=== PATIENT | female | born 1940 | race Caucasian/White ===

== ENCOUNTER 2021-10-08 10:36 | Day surgery (SDC) | payer MEDICARE, OTHER, SELFPAY ==
[2021-10-01 15:06] LABS: Hematocrit 41.9 % (37-47); Hemoglobin 13.6 g/dL (12.0-15.0); Mean Corp Hgb Conc 32.5 g/dL (32-36); Mean Corpuscular Hgb 31.6 pg (27.0-32.0); Mean Corpuscular Volume 97.4 fL (81-99); Mean Platelet Vol. 11.2 fl (6.2-12.0); Platelet Count 149 K/mm3 (150-450); RBC Distribution Width CV 14.4 % (11.6-14.6); RBC Distribution Width SD 51.7 fl (35.1-43.9); White Blood Count 5.9 K/mm3 (4.4-11.0)
[2021-10-01 15:31] LABS: Anion Gap 5 (5-15); BUN 13 mg/dL (7-18); Calcium,Total 9.2 mg/dL (8.5-10.1); Chloride 106 mmol/L (98-107); Creatinine, Serum 0.62 mg/dL (0.55-1.02); EST Glomerular Filtration Rate 99 mL/min (>60); Est Glom Filt Rate - Afr Amer 120 mL/min (>60); Glucose 87 mg/dL (74-106); Potassium 3.5 mmol/L (3.5-5.1); Sodium Level 141 mmol/L (136-145)
[2021-10-08] VITALS (7 sets, daily range): BP systolic 120–125; BP diastolic 62–72; PULSE 62–73; RESP 16–18; TEMP 36.2–36.6; O2SAT 93–97; BMI 34.5
[2021-10-08] MEDS: Lactated Ringers 1,000 ML 15 ML IV (11:25)
[2021-10-08] MEDS: Lubricating Jelly 60 GM Tube 30 GM (13:09)
--- NOTE | 2021-10-08 13:20 | PCM.HP.STD ---
HPI - General HPI Narrative GAIL MCPHERSON, is a 80 F who presents for evaluation of right ureteral stricture (chronic) from a [employer] injury repair a long time ago had chronic right hydro. PFSH Medical History Anemia Arthritis Back pain Cancer Cardiology follow-up encounter Cirrhosis Difficulty swallowing Gastric reflux High cholesterol History of atrial fibrillation History of diverticulitis History of echocardiogram History of edema History of hiatal hernia History of IBS History of stress test History of ulceration Hx of small bowel obstruction Non-smoker Home Medications Dexilant 60 mg PO DAILY 10/01/21 [History Last Taken 10/08/21] Immucore 1 tab PO/SL DAILY 10/01/21 [History Last Taken Unknown] Pradaxa 150 mg PO BID 10/01/21 [History Last Taken Unknown] Tart Foley 1 cap PO DAILY 10/01/21 [History Last Taken Unknown] aspirin 81 mg PO DAILY 10/01/21 [History Last Taken Unknown] atorvastatin 10 mg PO QHS 10/01/21 [History Last Taken Unknown] cholecalciferol (vitamin D3) [Vitamin D3] 50 mcg PO DAILY 10/01/21 [History Last Taken Unknown] diltiazem HCl 240 mg PO DAILY 10/01/21 [History Last Taken 10/08/21] furosemide 40 mg PO BID PRN 10/01/21 [History Last Taken Unknown] lubiprostone [Amitiza] 8 mcg PO BID 10/01/21 [History Last Taken Unknown] milk thistle 300 mg PO DAILY 10/01/21 [History Last Taken Unknown] multivitamin 1 cap PO DAILY 10/01/21 [History Last Taken Unknown] omega-3 fatty acids-vitamin E 1 cap PO DAILY 10/01/21 [History Last Taken Unknown] polyethylene glycol 3350 [Miralax] 17 g PO DAILY 10/01/21 [History Last Taken Unknown] tramadol 50 mg PO PRN PRN 10/01/21 [History Last Taken Unknown] ciprofloxacin HCl [Cipro] 500 mg PO BID #10 tab 10/08/21 [Rx Last Taken Unknown] Allergy/AdvReac Type Severity Reaction Status Date / Time NSAIDS (Non-Steroidal AdvReac Nausea Verified 10/08/21 11:14 Anti-Inflamma MUSCLE RELAXANTS AdvReac PT UNSURE Uncoded 10/08/21 11:14 OF REACTION SURGICAL TAPE AdvReac Rash Uncoded 10/08/21 11:14 Surgical History (Updated 10/01/21 @ 14:29 by Ameena Reza) History of bilateral knee arthroplasty History of esophagogastroduodenoscopy (EGD) History of laparoscopic cholecystectomy Hx of appendectomy Hx of bilateral cataract extraction Hx of colonoscopy Hx of foot surgery Hx of hysterectomy, total Hx of laparoscopy Hx of tonsillectomy Hx of total shoulder replacement Social History Smoking Status: Never smoker Vital Signs Vital Signs Vital Signs: 10/08/21 11:07 Temperature 97.8 F Temperature Source Temporal Pulse Rate 66 Respiratory Rate 18 Respiratory Pattern Normal Blood Pressure 125/62 H Blood Pressure Mean 83 Blood Pressure Source Monitor Blood Pressure Position Semi-Fowlers Blood Pressure Location Left Arm Pulse Ox 97 Oxygen Delivery Method Room Air Weight Weight: 75 kg Body Mass Index (BMI) 34.5 Results Lab / Micro Data Result Diagrams: 10/01/21 13:43 10/01/21 13:43
--- NOTE | 2021-10-08 13:21 | PCM.DC ---
Discharge Instructions Diet Discharge Diet: No restrictions Activity Discharge Activity: Return to Normal Activity and May Not Drive (while taking narcotic pain medications.) Dressing / Incision Call your doctor if you observe: Fever of 101 or Higher Follow Up Care Please Follow Up With: Lauro Philip MD When: Call [phone] for an appointment Test Results: Test results from this visit will be discussed in further detail at your follow-up appointment, if applicable. Discharge Plan Admission Primary Reason for Your Visit: right hydronephrosis Attending Provider: Lauro Philip Primary Care Provider: Mil Woodruff Discharge Orders/Prescriptions Prescriptions: New ciprofloxacin HCl [Cipro] 500 mg tablet 500 mg PO BID Qty: 10 RF: 0 Continued furosemide 40 mg Tablet 40 mg PO BID PRN (Reason: Edema) RF: 0 polyethylene glycol 3350 [Miralax] 17 gram Powder In Packet 17 g PO DAILY RF: 0 atorvastatin 10 mg Tablet 10 mg PO QHS RF: 0 diltiazem HCl 240 mg Capsule,Extended Release 24hr 240 mg PO DAILY RF: 0 aspirin 81 mg Tablet,Delayed Release (Dr/Ec) 81 mg PO DAILY RF: 0 milk thistle 150 mg Capsule 300 mg PO DAILY RF: 0 multivitamin Capsule 1 cap PO DAILY RF: 0 omega-3 fatty acids-vitamin E 1,000 mg Capsule 1 cap PO DAILY RF: 0 lubiprostone [Amitiza] 8 mcg Capsule 8 mcg PO BID RF: 0 cholecalciferol (vitamin D3) [Vitamin D3] 50 mcg (2,000 unit) Capsule 50 mcg PO DAILY RF: 0 Tart Foley [id number] mg Capsule 1 cap PO DAILY RF: 0 Dexilant 60 mg Capsule,Biphase Delayed Releas 60 mg PO DAILY RF: 0 tramadol 50 mg Tablet,Disintegrating 50 mg PO PRN PRN (Reason: Pain) RF: 0 Pradaxa 150 mg Capsule 150 mg PO BID RF: 0 Immucore 1 tab PO/SL DAILY RF: 0 Referrals / Follow Up: Lauro Philip MD [STAFF PHYSICIAN] - Mil Woodruff MD [Primary Care Provider] - Disposition Disposition (needs filled in before D/C Order can be placed): Home, Self Care
--- NOTE | 2021-10-08 13:21 | PCM.OPRPT ---
Report of Operation Date of Procedure: 10/08/21 Pre-Operative Diagnosis: Right ureteral stricture Post-Operative Diagnosis: Same Surgery/Procedure Performed:: Right retrograde pyelogram Description of Surgical Findings:: Indication this is a 80-year-old female who had a injury to her ureter that was repaired by an open fashion about 20 years ago she was found to have right hydronephrosis incidentally on CAT scan we suspect the cause for this is from the stricture so today working to do a retrograde pyelogram to evaluate the stricture and see if anything is necessary her creatinine is normal her pain in the back is probably mostly from cervical disease in her back. Patient was taken back to the operating room at the smooth induction of general anesthesia she was placed in dorsolithotomy position. The urethra vaginal area were prepped and draped in usual sterile fashion she did have an atrophic vaginal area short length the urethra. No significant prolapse. I went into the bladder I did not see any tumors or stones within the bladder she did have a lot of cystitis cystica along the floor of the bladder I then identified the right and left ureteral orifice and then cannulated the right ureteral orifice with a Pollick catheter, 5 Serbian open-ended ureteral catheter performed a retrograde pyelogram and see contrast going up deviated medially some and then he could see his scar tissue in contrast going through that scar tissue and then up to the dilated right kidney I was able to get a wire passes quite easily I was able to get the Pollack catheter quite easily wide through the area without any problems. I then pulled out the catheter and then he could see contrast that was draining it was draining from that right kidney but it was draining more slowly she had a chronic right hydronephrosis but I think just from a stricture in the distal ureter at this point given her age normal renal function and the fact that is asymptomatic organ to continue with observation decided not to do any intervention on the stricture we remove the Pollack catheter is draining well and she was taken back to PACU in Surgeon: anaid Type of Anesthesia: General Drains: none Admit VTE Documentation VTE Present on Admission: No VTE Mechan Device Prophylaxis: SCD's VTE Pharm Prophylaxis ordered?: No
== END 2021-10-08 15:08 | disposition home or self-care (01) ==
LOC: SDC 10:37 → AC 10:38
PROVIDERS: PCP Family Medicine; Referring Provider Urology; Visit Provider Urology
PROC: (CPT 52332; principal; 2021-10-08 12:45)
DX: N13.1 Hydronephrosis with ureteral stricture, not elsewhere classified (principal); E78.00 Pure hypercholesterolemia, unspecified; I48.91 Unspecified atrial fibrillation; K21.9 Gastro-esophageal reflux disease without esophagitis; K58.9 Irritable bowel syndrome, unspecified; K74.60 Unspecified cirrhosis of liver; M19.90 Unspecified osteoarthritis, unspecified site; Z87.19 Personal history of other diseases of the digestive system; Z79.01 Long term (current) use of anticoagulants; Z79.82 Long term (current) use of aspirin; Z79.899 Other long term (current) drug therapy
CPT/HCPCS: 52005; 36415; 76000; 80048; 85027; J7120; C1769; J2405

== ENCOUNTER 2025-04-29 15:00 | Outpatient (RCR) | payer MEDICARE, OTHER, SELFPAY ==
[2025-04-22 15:01] VITALS: BP 135/87; PULSE 71; RESP 16; TEMP 36.6; BMI 27.8
--- NOTE | 2025-04-22 16:02 | WC ---
PHOTO 04/22/25 EVA
--- NOTE | 2025-04-22 16:02 | WC ---
PHOTO 04/22/25 EVA
--- NOTE | 2025-04-23 07:29 | PCM.WC.HP ---
History of Present Illness Date of Service: 04/22/25 History of Wound: The patient is an 84-year-old female presenting with a sacral pressure ulcer that has been gradually worsening over a period of six months. The ulcer developed initially as a sensitive spot that evolved into a cavity without significant visual symptoms of hemorrhage or discharge. The management thus far has involved Medihoney applications and packing, though decreased cavity size now makes packing challenging. Additionally, rotations during sleep due to discomfort underscore its sensitivity. She possesses a medical history significant for atrial fibrillation, managed currently with Apixaban, with implications for future surgical interventions due to bleeding risks. Historical records indicate maintained integrity of sacral spinal hardware, mitigating concerns regarding hardware-related complications. Dietary habits and past management strategies reflect an understanding of nutritional needs consistent with ongoing medical recommendations. She believes it started as a small abscess that turned into a wound. She puts significant pressure on it daily while leaning back in her recliner at home. ROS: - Skin: Reports sacral pressure ulcer; Denies active infection symptoms such as fever or purulent discharge. - Cardiovascular: Reports history of atrial fibrillation; Denies current chest pain or dyspnea. - Gastrointestinal: Denies recent significant unintentional weight change; Past diagnosis of nonalcoholic fatty liver disease. - Musculoskeletal: Denies new or progressive back pain; History of prior surgeries for sacral fractures. - General: Denies smoking history. Attestation: Documentation on this patient encounter was supported using ambient scribe technology/ voice AI technology. The patient consented to recording for the purpose of documenting the encounter. Provider reviewed content of the generated note prior to signature. [facility] Medical History Cancer Arthritis Anemia Cirrhosis High cholesterol Back pain Difficulty swallowing History of hiatal hernia History of ulceration History of IBS History of diverticulitis Gastric reflux Non-smoker History of edema History of echocardiogram History of stress test Cardiology follow-up encounter History of atrial fibrillation Hx of small bowel obstruction Home Medications ?Medication ?Instructions ?Recorded ?Last Taken ?Type Immucore 1 tab PO/SL DAILY 10/01/21 Unknown History atorvastatin 10 mg tablet 10 mg PO QHS 10/01/21 Unknown History cholecalciferol (vitamin D3) 50 50 mcg PO DAILY 10/01/21 Unknown History mcg (2,000 unit) capsule (Vitamin D3) dabigatran etexilate 150 mg 150 mg PO BID 10/01/21 Unknown History capsule (Pradaxa) dexlansoprazole 60 mg 60 mg PO DAILY 10/01/21 10/08/21 History capsule,biphase delayed release (Dexilant) diltiazem HCl 240 mg 240 mg PO DAILY 10/01/21 10/08/21 History capsule,extended release 24 hr furosemide 40 mg tablet 40 mg PO BID PRN Edema 10/01/21 Unknown History lubiprostone 8 mcg capsule 8 mcg PO BID 10/01/21 Unknown History (Amitiza) milk thistle 150 mg capsule 300 mg PO DAILY 10/01/21 Unknown History multivitamin 1 cap PO DAILY 10/01/21 Unknown History omega-3 fatty acids-vitamin E 1 cap PO DAILY 10/01/21 Unknown History 1,000 mg capsule polyethylene glycol 3350 17 gram 17 g PO DAILY 10/01/21 Unknown History oral powder packet (Miralax) tramadol 50 mg disintegrating 50 mg PO PRN PRN Pain 10/01/21 Unknown History tablet apixaban 5 mg tablet (Eliquis) 5 mg PO BID 04/22/25 Unknown History apixaban 5 mg tablet (Eliquis) 5 mg PO BID 04/22/25 Unknown History levothyroxine 100 mcg tablet 100 mcg PO DAILY 04/22/25 Unknown History naloxone 4 mg/actuation nasal spray intranasal 04/22/25 Unknown History tramadol 50 mg tablet 50 mg PO Q6H PRN PRN pain 04/22/25 Unknown History Allergy/AdvReac Type Severity Reaction Status Date / Time adhesive tape AdvReac Rash Verified 04/22/25 15:15 NSAIDS (Non-Steroidal AdvReac Nausea Verified 04/22/25 15:15 Anti-Inflamma Surgical History History of esophagogastroduodenoscopy (EGD) Hx of colonoscopy Hx of total shoulder replacement History of bilateral knee arthroplasty Hx of foot surgery Hx of bilateral cataract extraction History of laparoscopic cholecystectomy Hx of laparoscopy Hx of hysterectomy, total Hx of appendectomy Hx of tonsillectomy Social History Smoking Status: Never smoker Vital Signs Vital Signs Vital Signs: 04/22/25 15:01 Temperature 97.8 F Temperature Source Temporal Pulse Rate 71 Respiratory Rate 16 Blood Pressure 135/87 H Blood Pressure Mean 103 Blood Pressure Source Monitor Weight Weight: 133 lb 3.437 oz Body Mass Index (BMI) 27.8 Physical Exam Narrative - Skin- Sacral wound measuring approximately 1.5 cm by 2 cm with an estimated depth of 1.5 cm; Presence of exposed fascia but no exposed bone or hardware evident. Debris noted and removed during examination. No surrounding skin lesions or induration Debridement Note Debridement Note Wound debrided: Sacral wound Laterality: Not Applicable Wound Grade/Stage: 3 Type of Debridement: Excisional debridement Anesthesia Used: 4% Lidocaine Solution Depth: to muscle Percentage of wound debrided: 100 Instrument Used: 7mm curette, Forceps and - (scissors for sharp excision) Tissue Removed: Necrotic fascia and fat at the base of the full-thickness wound Severity: Necrosis of Muscle (Necrosis to the fascial layer ) Amount of bleeding with debridement: Moderate Bleeding Controlled with: Compression and gauze Patient tolerated procedure: Patient tolerated procedure well Post-Debridement Measurements and Additional Note: Post-Debridement Measurements/Treatment WC - Nurse 1 - General Ulcer Assessment Start: 04/22/25 14:59 Freq: Status: Active Protocol: KERI Activity Type Activity Date Activity User E-sign Co-sign Detail Recorded Client Recorded Date Recorded By Document 04/22/25 15:01 DL [id number] 04/22/25 15:13 DL 04/22/25 15:01 - Today's Visit Information Type of service Follow-up Visit (Physician/[employer]PER[employer] ) Arrival Mode Ambulatory Transfer Assistance None Patient Identification Verified (Name & Yes ) Patient Requires Transmission-Based No Precautions Height and Weight Height 4 ft 10 in Weight 133 lb 3.437 oz Weight in Pounds 133.2 lbs Body Mass Index (BMI) 27.8 BMI Classification Overweight Vital Signs Temperature (97.8 F-99.1 F) 97.8 F Temperature Source Temporal Pulse Rate (60-100) 71 Pulse Location Monitor Respiratory Rate (12-18) 16 Respiratory rate source Observation Blood Pressure (90/60-120/80) 135/87 H Blood Pressure Mean 103 Source Monitor Pain Scale: 0-10 Numeric Is Patient Pain Free? Yes - Nurse 1 - General Ulcer Measurement Start: 04/22/25 14:59 Freq: Status: Active Protocol: Activity Type Activity Date Activity User E-sign Co-sign Detail Recorded Client Recorded Date Recorded By Document 04/22/25 15:01 DL [id number] 04/22/25 15:13 DL 04/22/25 15:01 Wound Center Nurse 1 #1 Coccyx -Current Size (cm) - Length 2 -Current Size (cm) - Width 1.5 -Current Size (cm) - Depth 0.9 -Total Square Cm 3.0 -Photo Taken Yes -Classification - Thickness Full Thickness without Exposed Support Structure -Exudate Amt Medium -Exudate Type Serosanguineous -Wound Margin Distinct, Outline Attached -Granulation Amt Medium (34-66%) -Granulation Quality Red -Necrosis Amt Medium (34-66%) -Necrotic Tissue Type Adherent Slough -Structure Exposed N/A -Texture (Danelle-wound Skin Appearance) Scarring -Moisture (Danelle-wound Skin Appearance) No Abnormality -Color (Danelle-wound Skin Appearance) No Abnormality -Temperature (Danelle-wound Skin No Abnormality Appearance) (Pt Warm) -Tenderness on Palpation (Danelle-wound No Skin Appearance) -Ulcer Cleansing Soap and Water -Foul Odor after Cleansing No -Anesthetic Used 5% Lidocaine Gel WC - Nurse 2 - General Ulcer CM Notes Start: 04/22/25 14:59 Freq: Status: Active Protocol: Activity Type Activity Date Activity User E-sign Co-sign Detail Recorded Client Recorded Date Recorded By Document 04/22/25 15:39 [id number] [id number] 04/22/25 15:49 04/22/25 15:39 Wound Center Nurse 2 -Time 15:44 -Correct Patient Yes -Correct Side, Site, Position Yes -Correct Procedure Yes -Procedure Performed Yes -Type of Procedure Debridement -Clinical Debridement Muscle / Fascia -Tissue Removed Fascia -Post Debridement (cm) - Length 1.5 -Post Debridement (cm) - Width 2 -Post Debridement (cm) - Depth 1.5 -Total Square (Post) (cm) 3.0 -Area of Debridement (cm) - Length 1.5 -Area of Debridement (cm) - Width 2 -Total Square (Area) (cm) 3.0 -Tunneling No -Undermining/Tunneling No -Circular Undermining No -Wound/Ulcer Outcome Not Healed -Ulcer Cleansing Rinsed/ Irrigated with Saline -Foul Odor after Cleansing No -Bioengineered Tissue No -Bleeding Controlled with Pressure -Treatment Response Procedure Tolerated Well -Offloading No -Debridement - Muscle / Fascia, 1st Yes 20sq cm Pain Scale: 0-10 Numeric Is Patient Pain Free? Yes - Nurse 3 - General Ulcer D/C NN Start: 04/22/25 14:59 Freq: Status: Active Protocol: Activity Type Activity Date Activity User E-sign Co-sign Detail Recorded Client Recorded Date Recorded By Document 04/22/25 16:14 DL [id number] 04/22/25 16:15 DL 04/22/25 16:14 Wound Care Center Nurse 3 #1 Coccyx -Ulcer Cleansing Rinsed/ Irrigated with Saline -Foul Odor after Cleansing No -Primary Dressing Applied Aquacel AG 4x4, Silicone Border Foam 6x6 -Aquacel AG 4x4 1 -Silicone Border Foam 6x6 1 Treatment Response Procedure Tolerated Well Pain Scale: 0-10 Numeric Is Patient Pain Free? Yes WC - Visit Discharge Discharge Condition Stable Ambulatory Status Ambulatory,Cane Transportation Private Auto Charges/Coding Multi Select Codes Visit Charges Office Visit/Consults: 67492 OV L4 New 45 min Integumentary Integumentary CPT Codes: 42168 Vivian musc/fascia 20 sq cm/< Assessment/Plan Assessment/Plan (1) Sacral decubitus ulcer, stage III: CODE(S): L89.153 - Pressure ulcer of sacral region, stage 3 (2) Atrial fibrillation: CODE(S): I48.91 - Unspecified atrial fibrillation (3) THOMAS (nonalcoholic steatohepatitis): CODE(S): K75.81 - Nonalcoholic steatohepatitis (THOMAS) PLAN: Plan Assessment and Plan 84-year-old female with history of atrial fibrillation presenting with a sacral pressure ulcer. The wound complexity and chronicity require diligent management, including consistent dressing changes and alternative offloading methods to minimize pressure and expedite healing. Current interventions focus on timely wound care and nutrient optimization, with surgical intervention as a feasible option contingent on risk considerations related to anticoagulation. 1. Sacral Wound The current wound care strategy will persist entailing consistent dressing changes with Aquacel AG. Wound vacuum-assisted closure therapy remains under consideration pending reassessment of current methods' effectiveness. Surgical procedures will remain a possible intervention should conservative management falter. I offered her surgery today for excision and closure of the wound. She is not interested in surgery at this time given her comorbidities and the discussion of risk benefits and alternatives. She would like to continue to do wound care. Most importantly we discussed pressure offloading. She does not want a pressure offloading bed (declined offer today) but she will work on not putting any pressure on the ulcer while sitting in a chair /reclining . She has limited resources at home to help her with wound care and therefore we are doing every other day Aquacel Ag dressings until the wound VAC is available (home health can change the wound VAC 3 times per week). Patient happy with the plan. 2. Nonalcoholic Fatty Liver Disease Dietary recommendations emphasize maintaining a liver-friendly diet with regular hepatic examinations to review enzyme levels. 3. Atrial Fibrillation Continue routine anticoagulation with Apixaban while exercising caution concerning its influence in any surgical contexts, ensuring ongoing evaluation of hematological parameters. - Monitor wound site daily and maintain cleanliness. - Follow-up with the wound care team as scheduled; visit the hospital if unexpected changes occur. - Lay on your side to avoid pressure on the sacral area. - Include protein-rich foods like chicken and eggs in your diet. - Rest and remain hydrated.
[2025-04-29 14:17] VITALS: BP 133/77; PULSE 45; RESP 14; TEMP 36.4; BMI 27.8
--- NOTE | 2025-04-30 11:55 | PN.PCM_ITS ---
History of Present Illness Date of Service: 04/29/25 History of Wound: The patient is an 84-year-old female presenting with a sacral pressure ulcer that has been gradually worsening over a period of six months. The ulcer developed initially as a sensitive spot that evolved into a cavity without significant visual symptoms of hemorrhage or discharge. The management thus far has involved Medihoney applications and packing, though decreased cavity size now makes packing challenging. Additionally, rotations during sleep due to discomfort underscore its sensitivity. She possesses a medical history significant for atrial fibrillation, managed currently with Apixaban, with implications for future surgical interventions due to bleeding risks. Historical records indicate maintained integrity of sacral spinal hardware, mitigating concerns regarding hardware-related complications. Dietary habits and past management strategies reflect an understanding of nutritional needs consistent with ongoing medical recommendations. She believes it started as a small abscess that turned into a wound. She puts significant pressure on it daily while leaning back in her recliner at home. ROS: - Skin: Reports sacral pressure ulcer; Denies active infection symptoms such as fever or purulent discharge. - Cardiovascular: Reports history of atrial fibrillation; Denies current chest pain or dyspnea. - Gastrointestinal: Denies recent significant unintentional weight change; Past diagnosis of nonalcoholic fatty liver disease. - Musculoskeletal: Denies new or progressive back pain; History of prior surgeries for sacral fractures. - General: Denies smoking history. Attestation: Documentation on this patient encounter was supported using ambient MINDBODYibe technology/ voice AI technology. The patient consented to recording for the purpose of documenting the encounter. Provider reviewed content of the generated note prior to signature. Subjective Subjective CURRENT ENCOUNTER, 29 April 2025: The patient is an 84-year-old female presenting with a pressure ulcer. The ulcer has been persistent, and the patient has been managing it by offloading pressure by sleeping on her right side. The wound has not yet healed completely, and the patient has not received the wound vacuum therapy device yet. The wound measures 1.5 x 1.5 cm and is 1 cm deep, consistent with previous measurements. The patient has been advised to use a wound vacuum to promote gran ulation and closure of the ulcer. The patient is considering surgical intervention if the wound vacuum therapy does not yield results in a few weeks. The patient is on blood thinners, which would require hospitalization for a week if surgical intervention is pursued. Attestation: Documentation on this patient encounter was supported using ambient scribe technology/ voice AI technology. The patient consented to recording for the purpose of documenting the encounter. Provider reviewed content of the generated note prior to signature. Objective Data Objective Data Vital Signs: Vital Signs Temp Pulse Resp BP 97.6 F L 45 L 14 133/77 H 04/29/25 14:17 04/29/25 14:17 04/29/25 14:17 04/29/25 14:17 Weight: 133 lb 3.437 oz Body Mass Index (BMI) 27.8 Charges/Coding Procedures Integumentary [id number]: [id number] Vivian subq tissue 20 sq cm/< Physical Exam Narrative - Integumentary: Wound measuring 1.5 x 1.5 cm, 1 cm deep, consistent with previous measurements. Debridement Note Debridement Note Wound debrided: Sacral wound Laterality: Not Applicable Wound Grade/Stage: Stage III Type of Debridement: Excisional debridement Anesthesia Used: 4% Lidocaine Solution Depth: in the subcutaneous layer Percentage of wound debrided: 100 Instrument Used: 7mm curette Tissue Removed: Fibrinous exudate and fat necrosis Severity: Fat Layer Exposed Amount of bleeding with debridement: Mild Bleeding Controlled with: Compression and gauze Patient tolerated procedure: Patient tolerated procedure well Post-Debridement Measurements and Additional Note: Post-Debridement Measurements/Treatment WC - Nurse 1 - General Ulcer Assessment Start: 04/22/25 14:59 Freq: Status: Active Protocol: [email or web address] Activity Type Activity Date Activity User E-sign Co-sign Detail Recorded Client Recorded Date Recorded By Document 04/22/25 15:01 DL [id number] 04/22/25 15:13 DL Document 04/29/25 14:17 ML [id number] 04/29/25 14:23 ML 04/22/25 04/29/25 15:01 14:17 - Today's Visit Information Type of service Follow-up Visit Follow-up Visit (Physician/ECCLESIASTICAL WORKER (Physician/ECCLESIASTICAL WORKER ) ) Arrival Mode Ambulatory Ambulatory Transfer Assistance None None Patient Identification Verified (Name & Yes Yes ) Patient Requires Transmission-Based No No Precautions Height and Weight Height 4 ft 10 in Weight 133 lb 3.437 oz Weight in Pounds 133.2 lbs Body Mass Index (BMI) 27.8 27.8 BMI Classification Overweight Overweight Vital Signs Temperature (97.8 F-99.1 F) 97.8 F 97.6 F L Temperature Source Temporal Temporal Pulse Rate (60-100) 71 45 L Pulse Location Monitor Monitor Respiratory Rate (12-18) 16 14 Respiratory rate source Observation Monitor Blood Pressure (90/60-120/80) 135/87 H 133/77 H Blood Pressure Mean (mm Hg) 103 95 Source Monitor Monitor Position Sitting Blood Pressure Location Left Arm History Since Last Visit- (Skip if this is Patient's initial visit) Have you changed medications since your No last visit? Any new allergies or adverse reactions No Had a fall/change in ADL's that may No increase risk of falls Have you been in the hospital since your No last visit? Has dressing in place as prescribed No Has compression in place as prescribed No Has offloadiing in place as prescribed Yes Experienced any changes in pain level or No management Pain Scale: 0-10 Numeric Is Patient Pain Free? Yes Yes WC - Nurse 1 - General Ulcer Measurement Start: 04/22/25 14:59 Freq: Status: Active Protocol: Activity Type Activity Date Activity User E-sign Co-sign Detail Recorded Client Recorded Date Recorded By Document 04/22/25 15:01 DL [id number] 04/22/25 15:13 DL Document 04/29/25 14:17 ML [id number] 04/29/25 14:23 ML 04/22/25 04/29/25 15:01 14:17 Wound Center Nurse 1 #1 Coccyx -Current Size (cm) - Length 2 1.5 -Current Size (cm) - Width 1.5 1 -Current Size (cm) - Depth 0.9 0.6 -Total Square Cm 3.0 1.5 -Photo Taken Yes -Classification - Thickness Full Thickness without Exposed Support Structure -Exudate Amt Medium Medium -Exudate Type Serosanguineous Serosanguineous -Wound Margin Distinct, Outline Attached -Granulation Amt Medium (34-66%) Small (1-33%) -Granulation Quality Red -Slough/Fibrin Yes -Necrosis Amt Medium (34-66%) Medium (34-66%) -Necrotic Tissue Type Adherent Slough Adherent Slough -Structure Exposed N/A -Texture (Danelle-wound Skin Appearance) Scarring Assessed -Moisture (Danelle-wound Skin Appearance) No Abnormality Maceration -Color (Danelle-wound Skin Appearance) No Abnormality -Temperature (Danelle-wound Skin No Abnormality No Abnormality Appearance) (Pt Warm) (Pt Warm) -Tenderness on Palpation (Danelle-wound No No Skin Appearance) -Ulcer Cleansing Soap and Water Rinsed/ Irrigated with Saline -Foul Odor after Cleansing No No -Anesthetic Used 5% Lidocaine 5% Lidocaine Gel Gel WC - Nurse 2 - General Ulcer CM Notes Start: 04/22/25 14:59 Freq: Status: Active Protocol: Activity Type Activity Date Activity User E-sign Co-sign Detail Recorded Client Recorded Date Recorded By Document 04/22/25 15:39 JF [id number] 04/22/25 15:49 JF Document 04/29/25 14:42 DS [id number] 04/29/25 14:43 DS 04/22/25 04/29/25 15:39 14:42 Wound Center Nurse 2 #1 Coccyx -Time 15:44 14:42 -Correct Patient Yes Yes -Correct Side, Site, Position Yes Yes -Correct Procedure Yes Yes -Procedure Performed Yes Yes -Type of Procedure Debridement Debridement -Clinical Debridement Muscle / Fascia Subcutaneous -Tissue Removed Fascia Subcutaneous -Post Debridement (cm) - Length 1.5 1.5 -Post Debridement (cm) - Width 2 1.5 -Post Debridement (cm) - Depth 1.5 1.0 -Total Square (Post) (cm) 3.0 2.25 -Area of Debridement (cm) - Length 1.5 1.5 -Area of Debridement (cm) - Width 2 1.5 -Total Square (Area) (cm) 3.0 2.25 -Tunneling No No -Undermining/Tunneling No No -Circular Undermining No No -Wound/Ulcer Outcome Not Healed Not Healed -Ulcer Cleansing Rinsed/ Irrigated with Saline -Foul Odor after Cleansing No No -Bioengineered Tissue No No -Bleeding Controlled with Pressure Pressure -Treatment Response Procedure Procedure Tolerated Well Tolerated Well -Offloading No -Debridement - Subq, 1st 20sq cm Yes -Debridement - Muscle / Fascia, 1st Yes 20sq cm Pain Scale: 0-10 Numeric Is Patient Pain Free? Yes Yes - Nurse 3 - General Ulcer D/C NN Start: 04/22/25 14:59 Freq: Status: Active Protocol: Activity Type Activity Date Activity User E-sign Co-sign Detail Recorded Client Recorded Date Recorded By Document 04/22/25 16:14 DL [id number] 04/22/25 16:15 DL Document 04/29/25 15:04 KW [id number] 04/29/25 15:05 04/22/25 04/29/25 16:14 15:04 Wound Care Center Nurse 3 #1 Coccyx -Ulcer Cleansing Rinsed/ Irrigated with Saline -Foul Odor after Cleansing No -Primary Dressing Applied Aquacel AG 4x4, Aquacel AG 4x4, Silicone Border Silicone Border Foam 6x6 Foam 4x4 -Aquacel AG 4x4 1 1 -Silicone Border Foam 4x4 1 -Silicone Border Foam 6x6 1 Treatment Response Procedure Tolerated Well Pain Scale: 0-10 Numeric Is Patient Pain Free? Yes Yes WC - Visit Discharge Discharge Condition Stable Stable Ambulatory Status Ambulatory,Cane Ambulatory,Cane Transportation Private Auto Private Auto Medication Reconcilliation completed & No provided to patient/care provider Clinical Summary of Care Provided Yes Assessment/Plan Assessment/Plan (1) Sacral decubitus ulcer, stage III: CODE(S): L89.153 - Pressure ulcer of sacral region, stage 3 (2) Atrial fibrillation: CODE(S): I48.91 - Unspecified atrial fibrillation (3) THOMAS (nonalcoholic steatohepatitis): CODE(S): K75.81 - Nonalcoholic steatohepatitis (THOMAS) PLAN: Plan Assessment and Plan 84-year-old female with history of atrial fibrillation presenting with a sacral pressure ulcer. The wound complexity and chronicity require diligent management, including consistent dressing changes and alternative offloading methods to minimize pressure and expedite healing. Current interventions focus on timely wound care and nutrient optimization, with surgical intervention as a feasible option contingent on risk considerations related to anticoagulation. 1. Sacral Wound The current wound care strategy will persist entailing consistent dressing changes with Aquacel AG. Wound vacuum-assisted closure therapy remains under consideration pending reassessment of current methods' effectiveness. Surgical procedures will remain a possible intervention should conservative management falter. I again today offered her surgery today for excision and closure of the wound. She is not interested in surgery at this time given her comorbidities and the discussion of risk benefits and alternatives. She would like to continue to do wound care. Most importantly we discussed pressure offloading. She does not want a pressure offloading bed (declined offer today) but she will work on not putting any pressure on the ulcer while sitting in a chair /reclining . She has limited resources at home to help her with wound care and therefore we are doing every other day Aquacel Ag dressings until the wound VAC is available (home health can change the wound VAC 3 times per week). Patient happy with the plan. 2. Nonalcoholic Fatty Liver Disease Dietary recommendations emphasize maintaining a liver-friendly diet with regular hepatic examinations to review enzyme levels. 3. Atrial Fibrillation Continue routine anticoagulation with Apixaban while exercising caution concerning its influence in any surgical contexts, ensuring ongoing evaluation of hematological parameters. - Monitor wound site daily and maintain cleanliness. - Follow-up with the wound care team as scheduled; visit the hospital if unexpected changes occur. - Lay on your side to avoid pressure on the sacral area. - Include protein-rich foods like chicken and eggs in your diet. - Rest and remain hydrated. Plan from 29 April 2025: Assessment and Plan An 84-year-old female with a history of pressure ulcer presents for evaluation and management. The ulcer has been persistent, and the patient has been managing it by offloading pressure by sleeping on her right side. The wound has not yet healed completely, and the patient has not received the wound vacuum therapy device yet. The wound measures 1.5 x 1.5 cm and is 1 cm deep, consistent with previous measurements. The patient has been advised to use a wound vacuum to promote granulation and closure of the ulcer. 1. Pressure Ulcer The plan is to initiate wound vacuum therapy to promote granulation and closure of the ulcer. If the wound vacuum therapy does not show improvement in a few weeks, surgical intervention will be considered by the patient. - Continue to offload pressure by sleeping on your right side. - Await the arrival of the wound vacuum device and begin using it as instructed. - Follow up in three weeks to assess the progress of the wound healing.
--- NOTE | 2025-04-30 11:55 | PN.PCM_ITS ---
History of Present Illness Date of Service: 04/29/25 History of Wound: The patient is an 84-year-old female presenting with a sacral pressure ulcer that has been gradually worsening over a period of six months. The ulcer developed initially as a sensitive spot that evolved into a cavity without significant visual symptoms of hemorrhage or discharge. The management thus far has involved Medihoney applications and packing, though decreased cavity size now makes packing challenging. Additionally, rotations during sleep due to discomfort underscore its sensitivity. She possesses a medical history significant for atrial fibrillation, managed currently with Apixaban, with implications for future surgical interventions due to bleeding risks. Historical records indicate maintained integrity of sacral spinal hardware, mitigating concerns regarding hardware-related complications. Dietary habits and past management strategies reflect an understanding of nutritional needs consistent with ongoing medical recommendations. She believes it started as a small abscess that turned into a wound. She puts significant pressure on it daily while leaning back in her recliner at home. ROS: - Skin: Reports sacral pressure ulcer; Denies active infection symptoms such as fever or purulent discharge. - Cardiovascular: Reports history of atrial fibrillation; Denies current chest pain or dyspnea. - Gastrointestinal: Denies recent significant unintentional weight change; Past diagnosis of nonalcoholic fatty liver disease. - Musculoskeletal: Denies new or progressive back pain; History of prior surgeries for sacral fractures. - General: Denies smoking history. Attestation: Documentation on this patient encounter was supported using ambient Mapiliary[employer] technology/ voice AI technology. The patient consented to recording for the purpose of documenting the encounter. Provider reviewed content of the generated note prior to signature. Subjective Subjective CURRENT ENCOUNTER, 29 April 2025: The patient is an 84-year-old female presenting with a pressure ulcer. The ulcer has been persistent, and the patient has been managing it by offloading pressure by sleeping on her right side. The wound has not yet healed completely, and the patient has not received the wound vacuum therapy device yet. The wound measures 1.5 x 1.5 cm and is 1 cm deep, consistent with previous measurements. The patient has been advised to use a wound vacuum to promote gran ulation and closure of the ulcer. The patient is considering surgical intervention if the wound vacuum therapy does not yield results in a few weeks. The patient is on blood thinners, which would require hospitalization for a week if surgical intervention is pursued. Attestation: Documentation on this patient encounter was supported using ambient scribe technology/ voice AI technology. The patient consented to recording for the purpose of documenting the encounter. Provider reviewed content of the generated note prior to signature. Objective Data Objective Data Vital Signs: Vital Signs Temp Pulse Resp BP 97.6 F L 45 L 14 133/77 H 04/29/25 14:17 04/29/25 14:17 04/29/25 14:17 04/29/25 14:17 Weight: 133 lb 3.437 oz Body Mass Index (BMI) 27.8 Charges/Coding Procedures Integumentary [id number]: [id number] Vivian subq tissue 20 sq cm/< Physical Exam Narrative - Integumentary: Wound measuring 1.5 x 1.5 cm, 1 cm deep, consistent with previous measurements. Debridement Note Debridement Note Wound debrided: Sacral wound Laterality: Not Applicable Wound Grade/Stage: Stage III Type of Debridement: Excisional debridement Anesthesia Used: 4% Lidocaine Solution Depth: in the subcutaneous layer Percentage of wound debrided: 100 Instrument Used: 7mm curette Tissue Removed: Fibrinous exudate and fat necrosis Severity: Fat Layer Exposed Amount of bleeding with debridement: Mild Bleeding Controlled with: Compression and gauze Patient tolerated procedure: Patient tolerated procedure well Post-Debridement Measurements and Additional Note: Post-Debridement Measurements/Treatment WC - Nurse 1 - General Ulcer Assessment Start: 04/22/25 14:59 Freq: Status: Active Protocol: [email or web address] Activity Type Activity Date Activity User E-sign Co-sign Detail Recorded Client Recorded Date Recorded By Document 04/22/25 15:01 DL [id number] 04/22/25 15:13 DL Document 04/29/25 14:17 ML [id number] 04/29/25 14:23 ML 04/22/25 04/29/25 15:01 14:17 - Today's Visit Information Type of service Follow-up Visit Follow-up Visit (Physician/TRANSPORTATION ENGINEER (Physician/TRANSPORTATION ENGINEER ) ) Arrival Mode Ambulatory Ambulatory Transfer Assistance None None Patient Identification Verified (Name & Yes Yes ) Patient Requires Transmission-Based No No Precautions Height and Weight Height 4 ft 10 in Weight 133 lb 3.437 oz Weight in Pounds 133.2 lbs Body Mass Index (BMI) 27.8 27.8 BMI Classification Overweight Overweight Vital Signs Temperature (97.8 F-99.1 F) 97.8 F 97.6 F L Temperature Source Temporal Temporal Pulse Rate (60-100) 71 45 L Pulse Location Monitor Monitor Respiratory Rate (12-18) 16 14 Respiratory rate source Observation Monitor Blood Pressure (90/60-120/80) 135/87 H 133/77 H Blood Pressure Mean (mm Hg) 103 95 Source Monitor Monitor Position Sitting Blood Pressure Location Left Arm History Since Last Visit- (Skip if this is Patient's initial visit) Have you changed medications since your No last visit? Any new allergies or adverse reactions No Had a fall/change in ADL's that may No increase risk of falls Have you been in the hospital since your No last visit? Has dressing in place as prescribed No Has compression in place as prescribed No Has offloadiing in place as prescribed Yes Experienced any changes in pain level or No management Pain Scale: 0-10 Numeric Is Patient Pain Free? Yes Yes WC - Nurse 1 - General Ulcer Measurement Start: 04/22/25 14:59 Freq: Status: Active Protocol: Activity Type Activity Date Activity User E-sign Co-sign Detail Recorded Client Recorded Date Recorded By Document 04/22/25 15:01 DL [id number] 04/22/25 15:13 DL Document 04/29/25 14:17 ML [id number] 04/29/25 14:23 ML 04/22/25 04/29/25 15:01 14:17 Wound Center Nurse 1 #1 Coccyx -Current Size (cm) - Length 2 1.5 -Current Size (cm) - Width 1.5 1 -Current Size (cm) - Depth 0.9 0.6 -Total Square Cm 3.0 1.5 -Photo Taken Yes -Classification - Thickness Full Thickness without Exposed Support Structure -Exudate Amt Medium Medium -Exudate Type Serosanguineous Serosanguineous -Wound Margin Distinct, Outline Attached -Granulation Amt Medium (34-66%) Small (1-33%) -Granulation Quality Red -Slough/Fibrin Yes -Necrosis Amt Medium (34-66%) Medium (34-66%) -Necrotic Tissue Type Adherent Slough Adherent Slough -Structure Exposed N/A -Texture (Danelle-wound Skin Appearance) Scarring Assessed -Moisture (Danelle-wound Skin Appearance) No Abnormality Maceration -Color (Danelle-wound Skin Appearance) No Abnormality -Temperature (Danelle-wound Skin No Abnormality No Abnormality Appearance) (Pt Warm) (Pt Warm) -Tenderness on Palpation (Danelle-wound No No Skin Appearance) -Ulcer Cleansing Soap and Water Rinsed/ Irrigated with Saline -Foul Odor after Cleansing No No -Anesthetic Used 5% Lidocaine 5% Lidocaine Gel Gel WC - Nurse 2 - General Ulcer CM Notes Start: 04/22/25 14:59 Freq: Status: Active Protocol: Activity Type Activity Date Activity User E-sign Co-sign Detail Recorded Client Recorded Date Recorded By Document 04/22/25 15:39 JF [id number] 04/22/25 15:49 JF Document 04/29/25 14:42 DS [id number] 04/29/25 14:43 DS 04/22/25 04/29/25 15:39 14:42 Wound Center Nurse 2 #1 Coccyx -Time 15:44 14:42 -Correct Patient Yes Yes -Correct Side, Site, Position Yes Yes -Correct Procedure Yes Yes -Procedure Performed Yes Yes -Type of Procedure Debridement Debridement -Clinical Debridement Muscle / Fascia Subcutaneous -Tissue Removed Fascia Subcutaneous -Post Debridement (cm) - Length 1.5 1.5 -Post Debridement (cm) - Width 2 1.5 -Post Debridement (cm) - Depth 1.5 1.0 -Total Square (Post) (cm) 3.0 2.25 -Area of Debridement (cm) - Length 1.5 1.5 -Area of Debridement (cm) - Width 2 1.5 -Total Square (Area) (cm) 3.0 2.25 -Tunneling No No -Undermining/Tunneling No No -Circular Undermining No No -Wound/Ulcer Outcome Not Healed Not Healed -Ulcer Cleansing Rinsed/ Irrigated with Saline -Foul Odor after Cleansing No No -Bioengineered Tissue No No -Bleeding Controlled with Pressure Pressure -Treatment Response Procedure Procedure Tolerated Well Tolerated Well -Offloading No -Debridement - Subq, 1st 20sq cm Yes -Debridement - Muscle / Fascia, 1st Yes 20sq cm Pain Scale: 0-10 Numeric Is Patient Pain Free? Yes Yes - Nurse 3 - General Ulcer D/C NN Start: 04/22/25 14:59 Freq: Status: Active Protocol: Activity Type Activity Date Activity User E-sign Co-sign Detail Recorded Client Recorded Date Recorded By Document 04/22/25 16:14 DL [id number] 04/22/25 16:15 DL Document 04/29/25 15:04 KW [id number] 04/29/25 15:05 04/22/25 04/29/25 16:14 15:04 Wound Care Center Nurse 3 #1 Coccyx -Ulcer Cleansing Rinsed/ Irrigated with Saline -Foul Odor after Cleansing No -Primary Dressing Applied Aquacel AG 4x4, Aquacel AG 4x4, Silicone Border Silicone Border Foam 6x6 Foam 4x4 -Aquacel AG 4x4 1 1 -Silicone Border Foam 4x4 1 -Silicone Border Foam 6x6 1 Treatment Response Procedure Tolerated Well Pain Scale: 0-10 Numeric Is Patient Pain Free? Yes Yes WC - Visit Discharge Discharge Condition Stable Stable Ambulatory Status Ambulatory,Cane Ambulatory,Cane Transportation Private Auto Private Auto Medication Reconcilliation completed & No provided to patient/care provider Clinical Summary of Care Provided Yes Assessment/Plan Assessment/Plan (1) Sacral decubitus ulcer, stage III: CODE(S): L89.153 - Pressure ulcer of sacral region, stage 3 (2) Atrial fibrillation: CODE(S): I48.91 - Unspecified atrial fibrillation (3) THOMAS (nonalcoholic steatohepatitis): CODE(S): K75.81 - Nonalcoholic steatohepatitis (THOMAS) PLAN: Plan Assessment and Plan 84-year-old female with history of atrial fibrillation presenting with a sacral pressure ulcer. The wound complexity and chronicity require diligent management, including consistent dressing changes and alternative offloading methods to minimize pressure and expedite healing. Current interventions focus on timely wound care and nutrient optimization, with surgical intervention as a feasible option contingent on risk considerations related to anticoagulation. 1. Sacral Wound The current wound care strategy will persist entailing consistent dressing changes with Aquacel AG. Wound vacuum-assisted closure therapy remains under consideration pending reassessment of current methods' effectiveness. Surgical procedures will remain a possible intervention should conservative management falter. I again today offered her surgery today for excision and closure of the wound. She is not interested in surgery at this time given her comorbidities and the discussion of risk benefits and alternatives. She would like to continue to do wound care. Most importantly we discussed pressure offloading. She does not want a pressure offloading bed (declined offer today) but she will work on not putting any pressure on the ulcer while sitting in a chair /reclining . She has limited resources at home to help her with wound care and therefore we are doing every other day Aquacel Ag dressings until the wound VAC is available (home health can change the wound VAC 3 times per week). Patient happy with the plan. 2. Nonalcoholic Fatty Liver Disease Dietary recommendations emphasize maintaining a liver-friendly diet with regular hepatic examinations to review enzyme levels. 3. Atrial Fibrillation Continue routine anticoagulation with Apixaban while exercising caution concerning its influence in any surgical contexts, ensuring ongoing evaluation of hematological parameters. - Monitor wound site daily and maintain cleanliness. - Follow-up with the wound care team as scheduled; visit the hospital if unexpected changes occur. - Lay on your side to avoid pressure on the sacral area. - Include protein-rich foods like chicken and eggs in your diet. - Rest and remain hydrated. Plan from 29 April 2025: Assessment and Plan An 84-year-old female with a history of pressure ulcer presents for evaluation and management. The ulcer has been persistent, and the patient has been managing it by offloading pressure by sleeping on her right side. The wound has not yet healed completely, and the patient has not received the wound vacuum therapy device yet. The wound measures 1.5 x 1.5 cm and is 1 cm deep, consistent with previous measurements. The patient has been advised to use a wound vacuum to promote granulation and closure of the ulcer. 1. Pressure Ulcer The plan is to initiate wound vacuum therapy to promote granulation and closure of the ulcer. If the wound vacuum therapy does not show improvement in a few weeks, surgical intervention will be considered by the patient. - Continue to offload pressure by sleeping on your right side. - Await the arrival of the wound vacuum device and begin using it as instructed. - Follow up in three weeks to assess the progress of the wound healing.
== END 2025-05-09 23:59 | disposition home or self-care (01) ==
LOC: WC 15:00
PROVIDERS: PCP Family Medicine; Referring Provider Surgery Plastic and Reconstructive Surgery; Visit Provider Surgery Plastic and Reconstructive Surgery
DX: L89.153 Pressure ulcer of sacral region, stage 3 (principal); I48.91 Unspecified atrial fibrillation; K75.81 Nonalcoholic steatohepatitis (NASH); E78.00 Pure hypercholesterolemia, unspecified; Z79.01 Long term (current) use of anticoagulants; Z79.890 Hormone replacement therapy; Z79.899 Other long term (current) drug therapy
CPT/HCPCS: 11042; 11043; 99214; G0463

== ENCOUNTER 2025-05-27 14:00 | Outpatient (RCR) | payer MEDICARE, OTHER, SELFPAY ==
[2025-05-20 13:41] VITALS: BP 137/97; RESP 18; TEMP 35.9
--- NOTE | 2025-05-20 16:20 | PCM.WC.HP ---
History of Present Illness Date of Service: 05/20/25 Chief Complaint: Sacral pressure ulceration History of Wound: The patient is seen today on behalf of the patient's regular Wound Center provider, Dr. Francis Cool, and whose medical history has been reviewed, as documented below: The patient is an 84-year-old female who presented with a sacral pressure ulcer that had been gradually worsening over a period of six months. The ulcer developed initially as a sensitive spot that evolved into a cavity without significant visual symptoms of hemorrhage or discharge. The management had involved [employer] applications and packing. The patient's medical history is significant for atrial fibrillation, managed with Apixaban, with implications for future surgical interventions due to bleeding risks. She has a history of lumbar spinal fusion with implanted metal hardware. Historical records indicate maintained integrity of sacral spinal hardware, mitigating concerns regarding hardware-related complications. Dietary habits and past management strategies reflect an understanding of nutritional needs consistent with ongoing medical recommendations. The patient believes her pressure ulcer started as a small abscess that turned into a wound. She puts significant pressure on it daily while leaning back in her recliner at home. The patient is not a smoker. She is not diabetic. PENDING SALE TO [facility] Medical History Cancer Arthritis Anemia Cirrhosis High cholesterol Back pain Difficulty swallowing History of hiatal hernia History of ulceration History of IBS History of diverticulitis Gastric reflux Non-smoker History of edema History of echocardiogram History of stress test Cardiology follow-up encounter History of atrial fibrillation Hx of small bowel obstruction Home Medications ?Medication ?Instructions ?Recorded ?Last Taken ?Type Immucore 1 tab PO/SL DAILY 10/01/21 Unknown History atorvastatin 10 mg tablet 10 mg PO QHS 10/01/21 Unknown History cholecalciferol (vitamin D3) 50 50 mcg PO DAILY 10/01/21 Unknown History mcg (2,000 unit) capsule (Vitamin D3) dabigatran etexilate 150 mg 150 mg PO BID 10/01/21 Unknown History capsule (Pradaxa) dexlansoprazole 60 mg 60 mg PO DAILY 10/01/21 10/08/21 History capsule,biphase delayed release (Dexilant) diltiazem HCl 240 mg 240 mg PO DAILY 10/01/21 10/08/21 History capsule,extended release 24 hr furosemide 40 mg tablet 40 mg PO BID PRN Edema 10/01/21 Unknown History lubiprostone 8 mcg capsule 8 mcg PO BID 10/01/21 Unknown History (Amitiza) milk thistle 150 mg capsule 300 mg PO DAILY 10/01/21 Unknown History multivitamin 1 cap PO DAILY 10/01/21 Unknown History omega-3 fatty acids-vitamin E 1 cap PO DAILY 10/01/21 Unknown History 1,000 mg capsule polyethylene glycol 3350 17 gram 17 g PO DAILY 10/01/21 Unknown History oral powder packet (Miralax) tramadol 50 mg disintegrating 50 mg PO PRN PRN Pain 10/01/21 Unknown History tablet apixaban 5 mg tablet (Eliquis) 5 mg PO BID 04/22/25 Unknown History apixaban 5 mg tablet (Eliquis) 5 mg PO BID 04/22/25 Unknown History levothyroxine 100 mcg tablet 100 mcg PO DAILY 04/22/25 Unknown History naloxone 4 mg/actuation nasal spray intranasal 04/22/25 Unknown History tramadol 50 mg tablet 50 mg PO Q6H PRN PRN pain 04/22/25 Unknown History Allergy/AdvReac Type Severity Reaction Status Date / Time adhesive tape AdvReac Rash Verified 04/22/25 15:15 NSAIDS (Non-Steroidal AdvReac Nausea Verified 04/22/25 15:15 Anti-Inflamma Surgical History History of esophagogastroduodenoscopy (EGD) Hx of colonoscopy Hx of total shoulder replacement History of bilateral knee arthroplasty Hx of bilateral cataract extraction History of laparoscopic cholecystectomy Hx of laparoscopy Hx of hysterectomy, total Hx of appendectomy Hx of tonsillectomy Social History Smoking Status: Never smoker Vital Signs Vital Signs Vital Signs: 05/20/25 13:41 Temperature 96.7 F L Temperature Source Temporal Respiratory Rate 18 Blood Pressure 137/97 H Blood Pressure Mean 110 Blood Pressure Source Monitor Blood Pressure Position Sitting Blood Pressure Location Right Arm Oxygen Delivery Method Room Air Physical Exam Const alert, oriented x3, no apparent distress, average body habitus and no limitations General Appearance: cooperative, comfortable, well kempt and well developed Orientation / Consciousness: awake, oriented to person, oriented to place and oriented to time Exam Limitations: no limitations HEENT normocephalic and head/scalp atraumatic Head and Scalp: normal to inspection, normocephalic and atraumatic Face and Sinus: normal facial exam Nose: external nose normal External Ear: external ears normal Eyes EOMs intact bilaterally General Eye: normal appearance of both eyes Resp normal respiratory effort, normal air movement, no retractions and no use of accessory muscles Effort and Inspection: able to speak in complete sentences Extremity no calf tenderness General Extremity: Negative for clubbing or cyanosis Skin Wound Narrative: A sacral pressure ulceration is noted in the midline. It appears to be full-thickness, extending through all layers of the dermis and into the subcutaneous tissues. This represents a stage III pressure ulceration. Dimensions are documented elsewhere. There is a small amount of slough and devitalized tissue. Ulcer margins are not well beveled. There is no sign of infection or cellulitis. There is some mild surrounding erythema, which does not appear to be cellulitic in nature. Neuro oriented x3, CN's II-XII intact bilaterally, moves all extremities, no focal motor deficits and no sensory deficits noted Sensorium / Orientation: awake, alert, oriented to person, oriented to place and oriented to time Speech: speech normal Psych Appearance: grossly normal and appropriate Attitude: calm Activity / Motor Behavior: appropriate eye contact Speech: normal speech Mood & Affect: euthymic mood Thought Process: normal thought process Thought Content: normal thought content Attention / Concentration: attention grossly intact Debridement Note Debridement Note Wound debrided: Sacral pressure ulceration Laterality: Not Applicable (Midline) Wound Grade/Stage: Stage III Type of Debridement: Excisional debridement Anesthesia Used: 5% Lidocaine Gel and Cetacaine Depth: Down to and including healthy tissue and in the subcutaneous layer Percentage of wound debrided: 100 Instrument Used: 5mm curette Tissue Removed: Slough and devitalized tissue Severity: Fat Layer Exposed Amount of bleeding with debridement: Mild Bleeding Controlled with: Compression and gauze Patient tolerated procedure: Patient tolerated procedure well Post-Debridement Measurements and Additional Note: Post-Debridement Measurements/Treatment WC - Nurse 1 - General Ulcer Assessment Start: 05/20/25 13:41 Freq: Status: Active Protocol: LUCRECIA.MARCIAL Activity Type Activity Date Activity User E-sign Co-sign Detail Recorded Client Recorded Date Recorded By Document 05/20/25 13:41 KW [id number] 05/20/25 13:45 KW 05/20/25 13:41 Vital Signs Temperature (97.8 F-99.1 F) 96.7 F L Temperature Source Temporal Pulse Location Monitor Respiratory Rate (12-18) 18 Respiratory rate source Observation Oxygen Delivery Method Room Air Blood Pressure (90/60-120/80) 137/97 H Blood Pressure Mean 110 Source Monitor Position Sitting Blood Pressure Location Right Arm History Since Last Visit- (Skip if this is Patient's initial visit) Have you changed medications since your No last visit? Any new allergies or adverse reactions No Had a fall/change in ADL's that may No increase risk of falls Signs or symptoms of abuse and/or No neglect since last visit Have you been in the hospital since your No last visit? Has dressing in place as prescribed Yes Has compression in place as prescribed N/A Has offloadiing in place as prescribed N/A Experienced any changes in pain level or No management Left Footwear Regular Shoe Right Footwear Regular Shoe Pain Scale: 0-10 Numeric Is Patient Pain Free? Yes WC - Nurse 1 - General Ulcer Measurement Start: 05/20/25 13:41 Freq: Status: Active Protocol: Activity Type Activity Date Activity User E-sign Co-sign Detail Recorded Client Recorded Date Recorded By Document 05/20/25 13:41 KW [id number] 05/20/25 13:45 KW 05/20/25 13:41 Wound Center Nurse 1 #1 Coccyx -Current Size (cm) - Length 2.2 -Current Size (cm) - Width 1.8 -Current Size (cm) - Depth 1 -Total Square Cm 3.96 -Date of Last Picture (Recall this 05/20/25 field) -Undermining/Tunneling Starts (O'clock 12 ) -Undermining/Tunneling Ends (O'clock) 12 -Maximum Distance (cm) 0.8 -Circular Undermining Yes -Wound Margin Distinct, Outline Attached -Granulation Amt Large (67-100%) -Granulation Quality [place],Red -Texture (Danelle-wound Skin Appearance) Assessed,Rash -Moisture (Danelle-wound Skin Appearance) Assessed -Color (Danelle-wound Skin Appearance) Assessed -Temperature (Danelle-wound Skin No Abnormality Appearance) (Pt Warm) -Tenderness on Palpation (Danelle-wound No Skin Appearance) -Ulcer Cleansing Soap and Water -Foul Odor after Cleansing No -Anesthetic Used 5% Lidocaine Gel WC - Nurse 2 - General Ulcer CM Notes Start: 05/20/25 13:41 Freq: Status: Active Protocol: Activity Type Activity Date Activity User E-sign Co-sign Detail Recorded Client Recorded Date Recorded By Document 05/20/25 14:11 DOROTHY [id number] 05/20/25 14:14 05/20/25 14:11 Wound Center Nurse 2 -Time 14:12 -Correct Patient Yes -Correct Side, Site, Position Yes -Correct Procedure Yes -Procedure Performed Yes -Type of Procedure Debridement -Clinical Debridement Subcutaneous -Tissue Removed Subcutaneous -Post Debridement (cm) - Length 2 -Post Debridement (cm) - Width 1 -Post Debridement (cm) - Depth 0.9 -Total Square (Post) (cm) 2 -Area of Debridement (cm) - Length 2 -Area of Debridement (cm) - Width 1 -Total Square (Area) (cm) 2 -Tunneling No -Undermining/Tunneling No -Circular Undermining No -Wound/Ulcer Outcome Not Healed -Ulcer Cleansing Rinsed/ Irrigated with Saline -Foul Odor after Cleansing No -Bioengineered Tissue No -Bleeding Controlled with Pressure -Treatment Response Procedure Tolerated Well -Offloading No -Debridement - Subq, 1st 20sq cm Yes Pain Scale: 0-10 Numeric Is Patient Pain Free? Yes - Nurse 3 - General Ulcer D/C NN Start: 05/20/25 13:41 Freq: Status: Active Protocol: Activity Type Activity Date Activity User E-sign Co-sign Detail Recorded Client Recorded Date Recorded By Document 05/20/25 14:14 DOROTHY [id number] 05/20/25 14:14 05/20/25 14:14 Wound Care Center Nurse 3 #1 Coccyx -Ulcer Cleansing Rinsed/ Irrigated with Saline -Foul Odor after Cleansing No -Primary Dressing Applied Aquacel AG 4x4 -Primary Dressing Covered/Secured with Dry Gauze, Secured with Tape -Aquacel AG 4x4 1 Pain Scale: 0-10 Numeric Is Patient Pain Free? Yes WC - Visit Discharge Discharge Condition Stable Ambulatory Status Ambulatory Transportation Private Auto Medication Reconcilliation completed & Yes provided to patient/care provider Clinical Summary of Care Provided Yes Charges/Coding Multi Select Codes Visit Charges Office Visit/Consults: 61064 OV L4 New 45 min Integumentary Integumentary CPT Codes: 86582 Vivian subq tissue 20 sq cm/< Assessment/Plan Assessment/Plan (1) Sacral decubitus ulcer, stage III: CODE(S): L89.153 - Pressure ulcer of sacral region, stage 3 (2) Atrial fibrillation: CODE(S): I48.91 - Unspecified atrial fibrillation (3) THOMAS (nonalcoholic steatohepatitis): CODE(S): K75.81 - Nonalcoholic steatohepatitis (THOMAS) (4) Cirrhosis: CODE(S): K74.60 - Unspecified cirrhosis of liver (5) Cancer: CODE(S): C80.1 - Malignant (primary) neoplasm, unspecified (6) Arthritis: CODE(S): M19.90 - Unspecified osteoarthritis, unspecified site (7) High cholesterol: CODE(S): E78.00 - Pure hypercholesterolemia, unspecified (8) History of hiatal hernia: CODE(S): Z87.19 - Personal history of other diseases of the digestive system (9) History of diverticulitis: CODE(S): Z87.19 - Personal history of other diseases of the digestive system (10) History of IBS: CODE(S): Z87.19 - Personal history of other diseases of the digestive system (11) Gastric reflux: CODE(S): K21.9 - Gastro-esophageal reflux disease without esophagitis (12) Hx of small bowel obstruction: CODE(S): Z87.19 - Personal history of other diseases of the digestive system (13) History of esophagogastroduodenoscopy (EGD): CODE(S): Z98.890 - Other specified postprocedural states (14) Hx of colonoscopy: CODE(S): Z98.890 - Other specified postprocedural states (15) Hx of total shoulder replacement: CODE(S): Z96.619 - Presence of unspecified artificial shoulder joint (16) History of bilateral knee arthroplasty: CODE(S): Z96.653 - Presence of artificial knee joint, bilateral (17) Hx of bilateral cataract extraction: CODE(S): Z98.41 - Cataract extraction status, right eye; Z98.42 - Cataract extraction status, left eye (18) History of laparoscopic cholecystectomy: CODE(S): Z90.49 - Acquired absence of other specified parts of digestive tract (19) Hx of hysterectomy, total: CODE(S): Z90.710 - Acquired absence of both cervix and uterus (20) Hx of appendectomy: CODE(S): Z90.49 - Acquired absence of other specified parts of digestive tract (21) Hx of tonsillectomy: CODE(S): Z90.89 - Acquired absence of other organs PLAN: Plan This is an 84-year-old female with a stage III sacral pressure ulceration. Management to this point has entailed the use of moistened Aquacel Ag topically every other day. She has been going to an outpatient clinic at [facility] in [place], [place], for her ulcer dressing changes. We are to continue the use of Aquacel Ag. The patient has been encouraged to optimize her nutritional intake, and to consume a healthy, well-balanced diet. Offloading measures have also been discussed in detail. The patient has been encouraged to reposition frequently. Home health nursing care had been offered, but declined by the patient. An offloading bed had also been suggested, but the patient has declined this as well. Negative pressure wound therapy had been previously implemented, but the patient felt unsafe in her ability to maintain mobility, and the wound VAC was discontinued. The patient is to return in 1 week for reevaluation by Dr. Cool. A more aggressive approach, which may entail flap reconstruction, will be left to the discretion of the patient and Dr. Cool. Total time: 45 minutes
--- NOTE | 2025-05-21 09:25 | WC ---
PHOTO-COCCYX 05/20/25
--- NOTE | 2025-05-21 09:25 | WC ---
PHOTO-COCCYX 05/20/25
[2025-05-27 13:33] VITALS: BP 146/88; PULSE 86; RESP 18; TEMP 37.7
--- NOTE | 2025-05-27 13:57 | LES_PTH ---
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 Francis Cool MD : 1940 BED: DIS: 06/09/2025 SPEC #: [id number] RECD: 05/27/25 14:55 STATUS: MOSHE REItzel #: [id number] MARISELA: 05/27/25 13:[address]: Francis Cool DEPT: SURGICAL PATHOLOGY RECD BY: Romel Renteria ENTERED: 05/28/25 13:17 SP TYPE: Lesion OTHR DR: Dr. Mil Woodruff MD Tissues: A - Coccyx, NOS Procedures: Surgery Specimen Level IV HEADER OPERATION: Punch biopsy PRE-OP DIAGNOSIS: Rule out malignancy TISSUE SUBMITTED: A- Coccyx biopsy MICROSCOPIC DIAGNOSIS A. Skin, coccyx, punch biopsy: - Cutaneous ulcer with active chronic inflammation. - Reactive epidermal changes. MICROSCOPIC DESCRIPTION Slides are reviewed. GROSS DESCRIPTION A. Received in formalin labeled with the patient's name and date of is a 0.5 x 0.4 cm galvez-white skin punch excised to a depth of 0.5 cm. The resection margin is inked blue. The specimen is bisected and entirely submitted in 1 cassette. [place] 05/28/2025 CPT:40613
--- NOTE | 2025-05-27 13:57 | LES_PTH ---
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 Francis Cool MD : 1940 BED: DIS: 06/09/2025 SPEC #: [id number] RECD: 05/27/25 14:55 STATUS: MOSHE REItzel #: [id number] MARISELA: 05/27/25 13:[address]: Francis Cool DEPT: SURGICAL PATHOLOGY RECD BY: Romel Renteria ENTERED: 05/28/25 13:17 SP TYPE: Lesion OTHR DR: Dr. Mil Woodruff MD Tissues: A - Coccyx, NOS Procedures: Surgery Specimen Level IV HEADER OPERATION: Punch biopsy PRE-OP DIAGNOSIS: Rule out malignancy TISSUE SUBMITTED: A- Coccyx biopsy MICROSCOPIC DIAGNOSIS A. Skin, coccyx, punch biopsy: - Cutaneous ulcer with active chronic inflammation. - Reactive epidermal changes. MICROSCOPIC DESCRIPTION Slides are reviewed. GROSS DESCRIPTION A. Received in formalin labeled with the patient's name and date of is a 0.5 x 0.4 cm galvez-white skin punch excised to a depth of 0.5 cm. The resection margin is inked blue. The specimen is bisected and entirely submitted in 1 cassette. [place] 05/28/2025 CPT:67404
--- NOTE | 2025-05-27 14:19 | PCM.WC.PN ---
History of Present Illness Date of Service: 05/27/25 Chief Complaint: Sacral pressure ulceration History of Wound: The patient is seen today on behalf of the patient's regular Wound Center provider, Dr. Francis Cool, and whose medical history has been reviewed, as documented below: The patient is an 84-year-old female who presented with a sacral pressure ulcer that had been gradually worsening over a period of six months. The ulcer developed initially as a sensitive spot that evolved into a cavity without significant visual symptoms of hemorrhage or discharge. The management had involved Medihoney applications and packing. The patient's medical history is significant for atrial fibrillation, managed with Apixaban, with implications for future surgical interventions due to bleeding risks. She has a history of lumbar spinal fusion with implanted metal hardware. Historical records indicate maintained integrity of sacral spinal hardware, mitigating concerns regarding hardware-related complications. Dietary habits and past management strategies reflect an understanding of nutritional needs consistent with ongoing medical recommendations. The patient believes her pressure ulcer started as a small abscess that turned into a wound. She puts significant pressure on it daily while leaning back in her recliner at home. The patient is not a smoker. She is not diabetic. Subjective Subjective 29 April 2025: The patient is an 84-year-old female presenting with a pressure ulcer. The ulcer has been persistent, and the patient has been managing it by offloading pressure by sleeping on her right side. The wound has not yet healed completely, and the patient has not received the wound vacuum therapy device yet. The wound measures 1.5 x 1.5 cm and is 1 cm deep, consistent with previous measurements. The patient has been advised to use a wound vacuum to promote granulation and closure of the ulcer. The patient is considering surgical intervention if the wound vacuum therapy does not yield results in a few weeks. The patient is on blood thinners, which would require hospitalization for a week if surgical intervention is pursued. Attestation: Documentation on this patient encounter was supported using ambient scribe technology/ voice AI technology. The patient consented to recording for the purpose of documenting the encounter. Provider reviewed content of the generated note prior to signature. CURRENT ENCOUNTER, 27 May 2025: Patient doing well overall. Saw Dr. Singleton on my behalf last week. He recommended continued treatment with the Aquacel Ag. Patient does not want to do the wound VAC, she feels is too cumbersome. She is not interested in surgery at this time as she agrees with continue local wound care, and my plan for labs and a biopsy today. Patient does not currently have a pressure offloading bed at home and does not want one at this time as she reports her house is too small. She reports that she does lay on the wound/sleep on this area. Objective Data Objective Data Vital Signs: Vital Signs Temp Pulse Resp BP O2 Del Method 99.8 F H 86 18 146/88 H Room Air 05/27/25 13:33 05/27/25 13:33 05/27/25 13:33 05/27/25 13:33 05/27/25 13:33 Oxygen Delivery Method Room Air Charges/Coding Procedures Integumentary 111xxx-113xx: 64520 Vivian subq tissue 20 sq cm/< Physical Exam Narrative Sacral wound Stage III 1.5 x 1.5 and 1 cm deep No exposed bone No drainage. No fluid collections or induration . Radiation tissue at the base Debridement Note Debridement Note Wound debrided: Sacral wound Laterality: Not Applicable Wound Grade/Stage: Stage III Type of Debridement: Excisional debridement Anesthesia Used: 4% Lidocaine Solution and - (4 cc of 1% lidocaine with 1-200,000 epinephrine) Depth: in the subcutaneous layer Percentage of wound debrided: 100 Instrument Used: 7mm curette Tissue Removed: Fibrinous exudate and biofilm Severity: Fat Layer Exposed Amount of bleeding with debridement: Mild Bleeding Controlled with: Compression and gauze Patient tolerated procedure: Patient tolerated procedure well Post-Debridement Measurements and Additional Note: Post-Debridement Measurements/Treatment - Nurse 1 - General Ulcer Assessment Start: 05/20/25 13:41 Freq: Status: Active Protocol: KERI Activity Type Activity Date Activity User E-sign Co-sign Detail Recorded Client Recorded Date Recorded By Document 05/20/25 13:41 KW [id number] 05/20/25 13:45 KW Document 05/27/25 13:33 KW [id number] 05/27/25 13:42 KW 05/20/25 05/27/25 13:41 13:33 - Today's Visit Information Type of service Follow-up Visit (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/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 PROGRAMER ) Arrival Mode Ambulatory,Cane Patient Identification Verified (Name & Yes ) Vital Signs Temperature (97.8 F-99.1 F) 96.7 F L 99.8 F H Temperature Source Temporal Temporal Pulse Rate (60-100) 86 Pulse Location Monitor Monitor Respiratory Rate (12-18) 18 18 Respiratory rate source Observation Observation Oxygen Delivery Method Room Air Room Air Blood Pressure (90/60-120/80) 137/97 H 146/88 H Blood Pressure Mean (mm Hg) 110 107 Source Monitor Monitor Position Sitting Semi-Fowlers Blood Pressure Location Right Arm Left Arm History Since Last Visit- (Skip if this is Patient's initial visit) Have you changed medications since your No No last visit? Any new allergies or adverse reactions No No Had a fall/change in ADL's that may No No increase risk of falls Signs or symptoms of abuse and/or No No neglect since last visit Have you been in the hospital since your No No last visit? Has dressing in place as prescribed Yes Yes Has compression in place as prescribed N/A N/A Has offloadiing in place as prescribed N/A N/A Experienced any changes in pain level or No No management Left Footwear Regular Shoe Regular Shoe Right Footwear Regular Shoe Regular Shoe Pain Scale: 0-10 Numeric Is Patient Pain Free? Yes Yes - Nurse 1 - General Ulcer Measurement Start: 05/20/25 13:41 Freq: Status: Active Protocol: Activity Type Activity Date Activity User E-sign Co-sign Detail Recorded Client Recorded Date Recorded By Document 05/20/25 13:41 KW [id number] 05/20/25 13:45 KW Document 05/27/25 13:33 [id number] 05/27/25 13:42 KW 05/20/25 05/27/25 13:41 13:33 Wound Center Nurse 1 #1 Coccyx -Current Size (cm) - Length 2.2 2 -Current Size (cm) - Width 1.8 1 -Current Size (cm) - Depth 1 0.5 -Total Square Cm 3.96 2 -Date of Last Picture (Recall this 05/20/25 05/27/25 field) -Undermining/Tunneling Starts (O'clock 12 ) -Undermining/Tunneling Ends (O'clock) 12 -Maximum Distance (cm) 0.8 -Circular Undermining Yes Yes -Exudate Amt Medium -Exudate Type Serosanguineous -Wound Margin Distinct, Distinct, Outline Outline Attached Attached -Granulation Amt Large (67-100%) Large (67-100%) -Granulation Quality [place],Red [place],Red -Necrosis Amt Small (1-33%) -Necrotic Tissue Type Adherent Slough -Texture (Danelle-wound Skin Appearance) Assessed,Rash Assessed -Moisture (Danelle-wound Skin Appearance) Assessed Assessed -Color (Danelle-wound Skin Appearance) Assessed Assessed, Erythema -Temperature (Danelle-wound Skin No Abnormality No Abnormality Appearance) (Pt Warm) (Pt Warm) -Tenderness on Palpation (Danelle-wound No No Skin Appearance) -Ulcer Cleansing Soap and Water Rinsed/ Irrigated with Saline -Foul Odor after Cleansing No No -Anesthetic Used 5% Lidocaine 5% Lidocaine Gel Gel - Nurse 2 - General Ulcer CM Notes Start: 05/20/25 13:41 Freq: Status: Active Protocol: Activity Type Activity Date Activity User E-sign Co-sign Detail Recorded Client Recorded Date Recorded By Document 05/20/25 14:11 [id number] 05/20/25 14:14 Document 05/27/25 13:56 [id number] 05/27/25 13:57 05/20/25 05/27/25 14:11 13:56 Wound Center Nurse 2 #1 Coccyx -Time 14:12 13:56 -Correct Patient Yes Yes -Correct Side, Site, Position Yes Yes -Correct Procedure Yes Yes -Procedure Performed Yes Yes -Type of Procedure Debridement Debridement -Clinical Debridement Subcutaneous Subcutaneous -Tissue Removed Subcutaneous Subcutaneous -Post Debridement (cm) - Length 2 1.5 -Post Debridement (cm) - Width 1 1.5 -Post Debridement (cm) - Depth 0.9 -Total Square (Post) (cm) 2 2.25 -Area of Debridement (cm) - Length 2 1.5 -Area of Debridement (cm) - Width 1 1.5 -Total Square (Area) (cm) 2 2.25 -Tunneling No No -Undermining/Tunneling No No -Circular Undermining No No -Wound/Ulcer Outcome Not Healed Not Healed -Ulcer Cleansing Rinsed/ Rinsed/ Irrigated with Irrigated with Saline Saline -Foul Odor after Cleansing No No -Bioengineered Tissue No No -Bleeding Controlled with Pressure Pressure -Treatment Response Procedure Procedure Tolerated Well Tolerated Well -Offloading No -Debridement - Subq, 1st 20sq cm Yes Yes Pain Scale: 0-10 Numeric Is Patient Pain Free? Yes Yes - Nurse 3 - General Ulcer D/C NN Start: 05/20/25 13:41 Freq: Status: Active Protocol: Activity Type Activity Date Activity User E-sign Co-sign Detail Recorded Client Recorded Date Recorded By Document 05/20/25 14:14 JF [id number] 05/20/25 14:14 JF Document 05/27/25 14:02 ML [id number] 05/27/25 14:03 ML 05/20/25 05/27/25 14:14 14:02 Wound Care Center Nurse 3 #1 Coccyx -Ulcer Cleansing Rinsed/ Rinsed/ Irrigated with Irrigated with Saline Saline -Foul Odor after Cleansing No -Primary Dressing Applied Aquacel AG 4x4 Aquacel AG 4x4 -Primary Dressing Covered/Secured with Dry Gauze, Dry Gauze, Secured with Secured with Tape Tape -Other Covering fluffed gauze -Aquacel AG 4x4 1 1 Pain Scale: 0-10 Numeric Is Patient Pain Free? Yes Yes WC - Visit Discharge Discharge Condition Stable Ambulatory Status Ambulatory Transportation Private Auto Medication Reconcilliation completed & Yes provided to patient/care provider Clinical Summary of Care Provided Yes Assessment/Plan Assessment/Plan (1) Sacral decubitus ulcer, stage III: CODE(S): L89.153 - Pressure ulcer of sacral region, stage 3 PLAN: Alcohol swab used in a biopsy with a 5 mm punch was taken at the margin of the wound after she was anesthetized with the above-noted local anesthetic. It was sent in formalin. Plan to follow-up biopsy results Patient deferring pressure offloading with pressure offloading bed at this time. Patient also deferring wound VAC. I have ordered CMP, CBC with differential, prealbumin, and A1c for nutrition labs. Plan to follow-up in 3 weeks to review biopsy results and labs. Continue local wound care with Aquacel Ag daily. Patient happy with plan.
--- NOTE | 2025-05-27 14:19 | PCM.WC.PN ---
History of Present Illness Date of Service: 05/27/25 Chief Complaint: Sacral pressure ulceration History of Wound: The patient is seen today on behalf of the patient's regular Wound Center provider, Dr. Francis Cool, and whose medical history has been reviewed, as documented below: The patient is an 84-year-old female who presented with a sacral pressure ulcer that had been gradually worsening over a period of six months. The ulcer developed initially as a sensitive spot that evolved into a cavity without significant visual symptoms of hemorrhage or discharge. The management had involved Medihoney applications and packing. The patient's medical history is significant for atrial fibrillation, managed with Apixaban, with implications for future surgical interventions due to bleeding risks. She has a history of lumbar spinal fusion with implanted metal hardware. Historical records indicate maintained integrity of sacral spinal hardware, mitigating concerns regarding hardware-related complications. Dietary habits and past management strategies reflect an understanding of nutritional needs consistent with ongoing medical recommendations. The patient believes her pressure ulcer started as a small abscess that turned into a wound. She puts significant pressure on it daily while leaning back in her recliner at home. The patient is not a smoker. She is not diabetic. Subjective Subjective 29 April 2025: The patient is an 84-year-old female presenting with a pressure ulcer. The ulcer has been persistent, and the patient has been managing it by offloading pressure by sleeping on her right side. The wound has not yet healed completely, and the patient has not received the wound vacuum therapy device yet. The wound measures 1.5 x 1.5 cm and is 1 cm deep, consistent with previous measurements. The patient has been advised to use a wound vacuum to promote granulation and closure of the ulcer. The patient is considering surgical intervention if the wound vacuum therapy does not yield results in a few weeks. The patient is on blood thinners, which would require hospitalization for a week if surgical intervention is pursued. Attestation: Documentation on this patient encounter was supported using ambient scribe technology/ voice AI technology. The patient consented to recording for the purpose of documenting the encounter. Provider reviewed content of the generated note prior to signature. CURRENT ENCOUNTER, 27 May 2025: Patient doing well overall. Saw Dr. Singleton on my behalf last week. He recommended continued treatment with the Aquacel Ag. Patient does not want to do the wound VAC, she feels is too cumbersome. She is not interested in surgery at this time as she agrees with continue local wound care, and my plan for labs and a biopsy today. Patient does not currently have a pressure offloading bed at home and does not want one at this time as she reports her house is too small. She reports that she does lay on the wound/sleep on this area. Objective Data Objective Data Vital Signs: Vital Signs Temp Pulse Resp BP O2 Del Method 99.8 F H 86 18 146/88 H Room Air 05/27/25 13:33 05/27/25 13:33 05/27/25 13:33 05/27/25 13:33 05/27/25 13:33 Oxygen Delivery Method Room Air Charges/Coding Procedures Integumentary 111xxx-113xx: 58426 Vivian subq tissue 20 sq cm/< Physical Exam Narrative Sacral wound Stage III 1.5 x 1.5 and 1 cm deep No exposed bone No drainage. No fluid collections or induration . Radiation tissue at the base Debridement Note Debridement Note Wound debrided: Sacral wound Laterality: Not Applicable Wound Grade/Stage: Stage III Type of Debridement: Excisional debridement Anesthesia Used: 4% Lidocaine Solution and - (4 cc of 1% lidocaine with 1-200,000 epinephrine) Depth: in the subcutaneous layer Percentage of wound debrided: 100 Instrument Used: 7mm curette Tissue Removed: Fibrinous exudate and biofilm Severity: Fat Layer Exposed Amount of bleeding with debridement: Mild Bleeding Controlled with: Compression and gauze Patient tolerated procedure: Patient tolerated procedure well Post-Debridement Measurements and Additional Note: Post-Debridement Measurements/Treatment - Nurse 1 - General Ulcer Assessment Start: 05/20/25 13:41 Freq: Status: Active Protocol: KERI Activity Type Activity Date Activity User E-sign Co-sign Detail Recorded Client Recorded Date Recorded By Document 05/20/25 13:41 KW [id number] 05/20/25 13:45 KW Document 05/27/25 13:33 KW [id number] 05/27/25 13:42 KW 05/20/25 05/27/25 13:41 13:33 - Today's Visit Information Type of service Follow-up Visit (Physician/RESEARCH PROGRAM INTERN ) Arrival Mode Ambulatory,Cane Patient Identification Verified (Name & Yes ) Vital Signs Temperature (97.8 F-99.1 F) 96.7 F L 99.8 F H Temperature Source Temporal Temporal Pulse Rate (60-100) 86 Pulse Location Monitor Monitor Respiratory Rate (12-18) 18 18 Respiratory rate source Observation Observation Oxygen Delivery Method Room Air Room Air Blood Pressure (90/60-120/80) 137/97 H 146/88 H Blood Pressure Mean (mm Hg) 110 107 Source Monitor Monitor Position Sitting Semi-Fowlers Blood Pressure Location Right Arm Left Arm History Since Last Visit- (Skip if this is Patient's initial visit) Have you changed medications since your No No last visit? Any new allergies or adverse reactions No No Had a fall/change in ADL's that may No No increase risk of falls Signs or symptoms of abuse and/or No No neglect since last visit Have you been in the hospital since your No No last visit? Has dressing in place as prescribed Yes Yes Has compression in place as prescribed N/A N/A Has offloadiing in place as prescribed N/A N/A Experienced any changes in pain level or No No management Left Footwear Regular Shoe Regular Shoe Right Footwear Regular Shoe Regular Shoe Pain Scale: 0-10 Numeric Is Patient Pain Free? Yes Yes - Nurse 1 - General Ulcer Measurement Start: 05/20/25 13:41 Freq: Status: Active Protocol: Activity Type Activity Date Activity User E-sign Co-sign Detail Recorded Client Recorded Date Recorded By Document 05/20/25 13:41 KW [id number] 05/20/25 13:45 KW Document 05/27/25 13:33 [id number] 05/27/25 13:42 KW 05/20/25 05/27/25 13:41 13:33 Wound Center Nurse 1 #1 Coccyx -Current Size (cm) - Length 2.2 2 -Current Size (cm) - Width 1.8 1 -Current Size (cm) - Depth 1 0.5 -Total Square Cm 3.96 2 -Date of Last Picture (Recall this 05/20/25 05/27/25 field) -Undermining/Tunneling Starts (O'clock 12 ) -Undermining/Tunneling Ends (O'clock) 12 -Maximum Distance (cm) 0.8 -Circular Undermining Yes Yes -Exudate Amt Medium -Exudate Type Serosanguineous -Wound Margin Distinct, Distinct, Outline Outline Attached Attached -Granulation Amt Large (67-100%) Large (67-100%) -Granulation Quality [place],Red [place],Red -Necrosis Amt Small (1-33%) -Necrotic Tissue Type Adherent Slough -Texture (Danelle-wound Skin Appearance) Assessed,Rash Assessed -Moisture (Danelle-wound Skin Appearance) Assessed Assessed -Color (Danelle-wound Skin Appearance) Assessed Assessed, Erythema -Temperature (Danelle-wound Skin No Abnormality No Abnormality Appearance) (Pt Warm) (Pt Warm) -Tenderness on Palpation (Danelle-wound No No Skin Appearance) -Ulcer Cleansing Soap and Water Rinsed/ Irrigated with Saline -Foul Odor after Cleansing No No -Anesthetic Used 5% Lidocaine 5% Lidocaine Gel Gel - Nurse 2 - General Ulcer CM Notes Start: 05/20/25 13:41 Freq: Status: Active Protocol: Activity Type Activity Date Activity User E-sign Co-sign Detail Recorded Client Recorded Date Recorded By Document 05/20/25 14:11 [id number] 05/20/25 14:14 Document 05/27/25 13:56 [id number] 05/27/25 13:57 05/20/25 05/27/25 14:11 13:56 Wound Center Nurse 2 #1 Coccyx -Time 14:12 13:56 -Correct Patient Yes Yes -Correct Side, Site, Position Yes Yes -Correct Procedure Yes Yes -Procedure Performed Yes Yes -Type of Procedure Debridement Debridement -Clinical Debridement Subcutaneous Subcutaneous -Tissue Removed Subcutaneous Subcutaneous -Post Debridement (cm) - Length 2 1.5 -Post Debridement (cm) - Width 1 1.5 -Post Debridement (cm) - Depth 0.9 -Total Square (Post) (cm) 2 2.25 -Area of Debridement (cm) - Length 2 1.5 -Area of Debridement (cm) - Width 1 1.5 -Total Square (Area) (cm) 2 2.25 -Tunneling No No -Undermining/Tunneling No No -Circular Undermining No No -Wound/Ulcer Outcome Not Healed Not Healed -Ulcer Cleansing Rinsed/ Rinsed/ Irrigated with Irrigated with Saline Saline -Foul Odor after Cleansing No No -Bioengineered Tissue No No -Bleeding Controlled with Pressure Pressure -Treatment Response Procedure Procedure Tolerated Well Tolerated Well -Offloading No -Debridement - Subq, 1st 20sq cm Yes Yes Pain Scale: 0-10 Numeric Is Patient Pain Free? Yes Yes - Nurse 3 - General Ulcer D/C NN Start: 05/20/25 13:41 Freq: Status: Active Protocol: Activity Type Activity Date Activity User E-sign Co-sign Detail Recorded Client Recorded Date Recorded By Document 05/20/25 14:14 JF [id number] 05/20/25 14:14 JF Document 05/27/25 14:02 ML [id number] 05/27/25 14:03 ML 05/20/25 05/27/25 14:14 14:02 Wound Care Center Nurse 3 #1 Coccyx -Ulcer Cleansing Rinsed/ Rinsed/ Irrigated with Irrigated with Saline Saline -Foul Odor after Cleansing No -Primary Dressing Applied Aquacel AG 4x4 Aquacel AG 4x4 -Primary Dressing Covered/Secured with Dry Gauze, Dry Gauze, Secured with Secured with Tape Tape -Other Covering fluffed gauze -Aquacel AG 4x4 1 1 Pain Scale: 0-10 Numeric Is Patient Pain Free? Yes Yes WC - Visit Discharge Discharge Condition Stable Ambulatory Status Ambulatory Transportation Private Auto Medication Reconcilliation completed & Yes provided to patient/care provider Clinical Summary of Care Provided Yes Assessment/Plan Assessment/Plan (1) Sacral decubitus ulcer, stage III: CODE(S): L89.153 - Pressure ulcer of sacral region, stage 3 PLAN: Alcohol swab used in a biopsy with a 5 mm punch was taken at the margin of the wound after she was anesthetized with the above-noted local anesthetic. It was sent in formalin. Plan to follow-up biopsy results Patient deferring pressure offloading with pressure offloading bed at this time. Patient also deferring wound VAC. I have ordered CMP, CBC with differential, prealbumin, and A1c for nutrition labs. Plan to follow-up in 3 weeks to review biopsy results and labs. Continue local wound care with Aquacel Ag daily. Patient happy with plan.
[2025-05-27 14:41] LABS: Hematocrit 37.4 % (37-47); Hemoglobin 12.2 g/dL (12.0-15.0); Immature Granulocytes Count 0.010 X10^3/uL (0.0-0.0); Mean Corp Hgb Conc 32.6 g/dL (32-36); Mean Corpuscular Volume 91.4 fL (81-99); Mean Platelet Vol. 10.8 fl (6.2-12.0); NRBC Flagged by Analyzer 0 % (0-5); Platelet Count 161 K/mm3 (150-450); RBC Distribution Width CV 15.4 % (11.6-14.6); RBC Distribution Width SD 51.8 fl (35.1-43.9); Red Blood Count 4.09 M/mm3 (4.2-5.4); White Blood Count 5.3 K/mm3 (4.4-11.0)
[2025-05-27 15:35] LABS: AST(SGOT) 37 U/L (<=31); Alanine Aminotransfer ALT/SGPT 8 U/L (<=34); Albumin, Serum 3.6 g/dL (3.4-4.8); Alkaline Phosphatase 159 U/L (35-104); Anion Gap 10 (5-15); BUN 16 mg/dL (4-19); BUN/Creat Ratio 24.7 RATIO (10-20); Calcium,Total 8.8 mg/dL (7.6-11.0); Carbon Dioxide 24.3 mmol/L (21.0-32.0); Chloride 103 mmol/L (98-108); Globulin 3.0 g/dL (2.2-4.2); Glucose 86 mg/dL (70-99); Potassium 4.5 mmol/L (3.3-5.1)
[2025-05-29 04:07] LABS: Prealbumin 11 mg/dL (9-32)
--- NOTE | 2025-05-29 11:56 | WC ---
[email or web address] 05/27/25
--- NOTE | 2025-05-29 11:56 | WC ---
[email or web address] 05/27/25
== END 2025-06-09 23:59 | disposition home or self-care (01) ==
LOC: WC 14:00
PROVIDERS: PCP Family Medicine; Referring Provider Surgery Plastic and Reconstructive Surgery; Visit Provider Surgery Plastic and Reconstructive Surgery
DX: L89.153 Pressure ulcer of sacral region, stage 3 (principal); K74.60 Unspecified cirrhosis of liver; I48.91 Unspecified atrial fibrillation; K75.81 Nonalcoholic steatohepatitis (NASH); M19.90 Unspecified osteoarthritis, unspecified site; E78.00 Pure hypercholesterolemia, unspecified; K21.9 Gastro-esophageal reflux disease without esophagitis; Z98.1 Arthrodesis status; Z79.01 Long term (current) use of anticoagulants; Z79.890 Hormone replacement therapy; Z79.899 Other long term (current) drug therapy
CPT/HCPCS: 11042; 11104; 36415; 80053; 83036; 84134; 85025; 88305

== ENCOUNTER → 2025-06-28 | Outpatient (CLI) | payer MEDICARE, OTHER, SELFPAY ==
--- NOTE | 2025-06-28 17:40 | CT_ITS ---
PROCEDURE: PELVIS WITH IV CONTRAST 06/28/2025 REASON FOR EXAM: SACRAL UCLER- R/O OSTEO TECHNIQUE: Procedure Code: CTPELW Modality: CT Procedure: PELVIS WITH IV CONTRAST CONTRAST: Isovue 370 VOLUME: 100 mL One or more dose reduction techniques were used (e.g., Automated exposure control, adjustment of the mA and/or kV according to patient size, use of iterative reconstruction technique). RADIATION DOSE SUMMARY: CTDlvol: 37.53 mGy DLP: 1260.27 mGycm COMPARISON: Unremarkable. FINDINGS: Bladder: Unremarkable. Reproductive Organs: Unremarkable. Bowel: Large amount of fecal load in the colon. No bowel wall thickening. No bowel obstruction. Appendix: No evidence of acute appendicitis. Lymph nodes: No lymphadenopathy. Vasculature: Atherosclerotic calcifications. No aneurysm. Peritoneum / Retroperitoneum: No free air or free fluid. Bones: Status post total right hip replacement. Status post surgical fixation of the right sacroiliac joint with metallic hardware. Arthritis changes of the left hip joint. No acute bony abnormalities. Soft tissues: Ulceration with soft tissue thickening posterior to the coccyx consistent with decubitus ulcers. No abscess. CT/Pelvis WITH IV Contrast IMPRESSION: Ulceration with soft tissue thickening posterior to the coccyx consistent with decubitus ulcers. No abscess. No acute osseous abnormalities. Reading Location: [facility]
== END | disposition home or self-care (01) ==
LOC: CT 15:05
PROVIDERS: PCP Family Medicine; Referring Provider Surgery Plastic and Reconstructive Surgery; Visit Provider Surgery Plastic and Reconstructive Surgery
DX: M86.9 Osteomyelitis, unspecified (principal); L89.159 Pressure ulcer of sacral region, unspecified stage
CPT/HCPCS: 72193; Q9967

== ENCOUNTER 2025-07-01 09:45 | Outpatient (RCR) | payer MEDICARE, OTHER, SELFPAY ==
[2025-06-17 09:52] VITALS: BP 156/68; PULSE 92; RESP 14; TEMP 36.1
--- NOTE | 2025-06-18 09:47 | PCM.WC.PN ---
History of Present Illness Date of Service: 06/17/25 Chief Complaint: Sacral pressure ulceration History of Wound: The patient is seen today on behalf of the patient's regular Wound Center provider, Dr. Francis Cool, and whose medical history has been reviewed, as documented below: The patient is an 84-year-old female who presented with a sacral pressure ulcer that had been gradually worsening over a period of six months. The ulcer developed initially as a sensitive spot that evolved into a cavity without significant visual symptoms of hemorrhage or discharge. The management had involved Medihoney applications and packing. The patient's medical history is significant for atrial fibrillation, managed with Apixaban, with implications for future surgical interventions due to bleeding risks. She has a history of lumbar spinal fusion with implanted metal hardware. Historical records indicate maintained integrity of sacral spinal hardware, mitigating concerns regarding hardware-related complications. Dietary habits and past management strategies reflect an understanding of nutritional needs consistent with ongoing medical recommendations. The patient believes her pressure ulcer started as a small abscess that turned into a wound. She puts significant pressure on it daily while leaning back in her recliner at home. The patient is not a smoker. She is not diabetic. Subjective Subjective 29 April 2025: The patient is an 84-year-old female presenting with a pressure ulcer. The ulcer has been persistent, and the patient has been managing it by offloading pressure by sleeping on her right side. The wound has not yet healed completely, and the patient has not received the wound vacuum therapy device yet. The wound measures 1.5 x 1.5 cm and is 1 cm deep, consistent with previous measurements. The patient has been advised to use a wound vacuum to promote granulation and closure of the ulcer. The patient is considering surgical intervention if the wound vacuum therapy does not yield results in a few weeks. The patient is on blood thinners, which would require hospitalization for a week if surgical intervention is pursued. Attestation: Documentation on this patient encounter was supported using ambient scribe technology/ voice AI technology. The patient consented to recording for the purpose of documenting the encounter. Provider reviewed content of the generated note prior to signature. 27 May 2025: Patient doing well overall. Saw Dr. Singleton on my behalf last week. He recommended continued treatment with the Aquacel Ag. Patient does not want to do the wound VAC, she feels is too cumbersome. She is not interested in surgery at this time as she agrees with continue local wound care, and my plan for labs and a biopsy today. Patient does not currently have a pressure offloading bed at home and does not want one at this time as she reports her house is too small. She reports that she does lay on the wound/sleep on this area. CURRENT ENCOUNTER, 17 Jun 2025: Doing well overall but making minimal progress. She is concerned that it may be related to the hardware that she had in her sacrum from a pelvis/sacrum fracture that she reports she had 3 years ago. Objective Data Objective Data Vital Signs: Vital Signs Temp Pulse Resp BP 96.9 F L 92 14 156/68 H 06/17/25 09:52 06/17/25 09:52 06/17/25 09:52 06/17/25 09:52 Charges/Coding Visit Charges Office Visits / Consults: 47830 OV L2 Est 10min Procedures Integumentary 111xxx-113xx: 75077 Vivian subq tissue 20 sq cm/< Physical Exam Narrative Sacral wound Stage III 2 x 2.2 cm and 1 cm deep No exposed bone There is no visible exposure of hardware or any palpable hardware No drainage. No fluid collections or induration Granulation tissue at the base with some fibrinous exudate Debridement Note Debridement Note Wound debrided: Sacral wound Laterality: Not Applicable Wound Grade/Stage: Stage III Type of Debridement: Excisional debridement Anesthesia Used: 4% Lidocaine Solution Depth: in the subcutaneous layer Percentage of wound debrided: 100 Instrument Used: 7mm curette Tissue Removed: Fibrinous exudate and biofilm Severity: Fat Layer Exposed Amount of bleeding with debridement: Mild Bleeding Controlled with: Compression and gauze Patient tolerated procedure: Patient tolerated procedure well No debridement was completed: No debridement was completed today Post-Debridement Measurements and Additional Note: Post-Debridement Measurements/Treatment - Nurse 1 - General Ulcer Assessment Start: 06/17/25 09:52 Freq: Status: Active Protocol: KERI Activity Type Activity Date Activity User E-sign Co-sign Detail Recorded Client Recorded Date Recorded By Document 06/17/25 09:52 ML [id number] 06/17/25 09:55 ML 06/17/25 09:52 - Today's Visit Information Type of service Follow-up Visit (Physician/SEEING EYE DOG TRAINER ) Arrival Mode Ambulatory Patient Identification Verified (Name & Yes ) Patient Requires Transmission-Based No Precautions Vital Signs Temperature (97.8 F-99.1 F) 96.9 F L Temperature Source Temporal Pulse Rate (60-100) 92 Pulse Location Monitor Respiratory Rate (12-18) 14 Respiratory rate source Monitor Blood Pressure (90/60-120/80) 156/68 H Blood Pressure Mean (mm Hg) 97 Source Monitor Position Semi-Fowlers Blood Pressure Location Right Arm History Since Last Visit- (Skip if this is Patient's initial visit) Have you changed medications since your No last visit? Any new allergies or adverse reactions No Had a fall/change in ADL's that may No increase risk of falls Signs or symptoms of abuse and/or No neglect since last visit Have you been in the hospital since your No last visit? Has dressing in place as prescribed Yes Has compression in place as prescribed N/A Has offloadiing in place as prescribed N/A Experienced any changes in pain level or No management Pain Scale: 0-10 Numeric Is Patient Pain Free? Yes WC - Nurse 1 - General Ulcer Measurement Start: 06/17/25 09:52 Freq: Status: Active Protocol: Activity Type Activity Date Activity User E-sign Co-sign Detail Recorded Client Recorded Date Recorded By Document 06/17/25 09:52 ML [id number] 06/17/25 09:55 ML 06/17/25 09:52 Wound Center Nurse 1 #1 Coccyx -Current Size (cm) - Length 2 -Current Size (cm) - Width 2 -Current Size (cm) - Depth 1.5 -Total Square Cm 4 -Exudate Amt Medium -Exudate Type Serosanguineous -Granulation Amt Medium (34-66%) -Slough/Fibrin Yes -Necrosis Amt Medium (34-66%) -Necrotic Tissue Type Adherent Slough -Texture (Danelle-wound Skin Appearance) Assessed -Moisture (Danelle-wound Skin Appearance) Assessed -Color (Danelle-wound Skin Appearance) Assessed -Temperature (Danelle-wound Skin No Abnormality Appearance) (Pt Warm) -Tenderness on Palpation (Danelle-wound No Skin Appearance) -Ulcer Cleansing Rinsed/ Irrigated with Saline -Foul Odor after Cleansing No -Anesthetic Used 5% Lidocaine Gel WC - Nurse 2 - General Ulcer CM Notes Start: 06/17/25 09:52 Freq: Status: Active Protocol: Activity Type Activity Date Activity User E-sign Co-sign Detail Recorded Client Recorded Date Recorded By Document 06/17/25 10:32 JF [id number] 06/17/25 10:34 JF 06/17/25 10:32 Wound Center Nurse 2 -Time 10:33 -Correct Patient Yes -Correct Side, Site, Position Yes -Correct Procedure Yes -Procedure Performed Yes -Type of Procedure Debridement -Clinical Debridement Subcutaneous -Tissue Removed Subcutaneous -Post Debridement (cm) - Length 2 -Post Debridement (cm) - Width 2.2 -Post Debridement (cm) - Depth 1.0 -Total Square (Post) (cm) 4.4 -Area of Debridement (cm) - Length 2 -Area of Debridement (cm) - Width 2.2 -Total Square (Area) (cm) 4.4 -Tunneling No -Undermining/Tunneling No -Circular Undermining No -Wound/Ulcer Outcome Not Healed -Ulcer Cleansing Rinsed/ Irrigated with Saline -Foul Odor after Cleansing No -Bioengineered Tissue No -Bleeding Controlled with Pressure -Treatment Response Procedure Tolerated Well -Offloading No -Debridement - Subq, 1st 20sq cm Yes Pain Scale: 0-10 Numeric Is Patient Pain Free? Yes - Nurse 3 - General Ulcer D/C NN Start: 06/17/25 09:52 Freq: Status: Active Protocol: Activity Type Activity Date Activity User E-sign Co-sign Detail Recorded Client Recorded Date Recorded By Document 06/17/25 10:46 KW [id number] 06/17/25 10:46 DIVYA 06/17/25 10:46 Wound Care Center Nurse 3 #1 Coccyx -Primary Dressing Applied Aquacel AG 4x4 -Primary Dressing Covered/Secured with Dry Gauze, Secured with Tape -Aquacel AG 4x4 1 Pain Scale: 0-10 Numeric Is Patient Pain Free? Yes - Visit Discharge Discharge Condition Stable Ambulatory Status Ambulatory,Cane Transportation Private Auto Medication Reconcilliation completed & No provided to patient/care provider Clinical Summary of Care Provided Yes Assessment/Plan Assessment/Plan (1) Sacral decubitus ulcer, stage III: CODE(S): L89.153 - Pressure ulcer of sacral region, stage 3 PLAN: Patient deferring pressure offloading with pressure offloading bed at this time. Patient also deferring wound VAC. Reviewed nutrition labs which include albumin of 3.6, prealbumin of 11, and she has an A1c of 5.2. She is not anemic and her hemoglobin is 12 Biopsy of the wound revealed cutaneous ulcer with active chronic inflammation and reactive epidermal changes (no signs of malignancy). These results were discussed and shared with the patient today at our visit. We are ordering a CT scan to examine the sacrum and any signs of hardware near the wound edges. Patient will follow-up with me in 2 weeks She will continue pressure offloading and daily dressing changes with Aquacel Ag (she cannot get twice daily wet-to-dry dressings). I talked to her briefly about excision and closure of the wound as she is starting to be more open to this idea as we deferred in the past per patient preference. Patient happy with plan.
--- NOTE | 2025-06-19 09:15 | WC ---
PHOTO-COCCYX 06/17/25
[2025-07-01 09:36] VITALS: BP 147/81; PULSE 80; RESP 18; TEMP 36.5
--- NOTE | 2025-07-02 09:56 | PCM.WC.PN ---
History of Present Illness Date of Service: 07/01/25 Chief Complaint: Sacral pressure ulceration History of Wound: The patient is seen today on behalf of the patient's regular Wound Center provider, Dr. Francis Cool, and whose medical history has been reviewed, as documented below: The patient is an 84-year-old female who presented with a sacral pressure ulcer that had been gradually worsening over a period of six months. The ulcer developed initially as a sensitive spot that evolved into a cavity without significant visual symptoms of hemorrhage or discharge. The management had involved Medihoney applications and packing. The patient's medical history is significant for atrial fibrillation, managed with Apixaban, with implications for future surgical interventions due to bleeding risks. She has a history of lumbar spinal fusion with implanted metal hardware. Historical records indicate maintained integrity of sacral spinal hardware, mitigating concerns regarding hardware-related complications. Dietary habits and past management strategies reflect an understanding of nutritional needs consistent with ongoing medical recommendations. The patient believes her pressure ulcer started as a small abscess that turned into a wound. She puts significant pressure on it daily while leaning back in her recliner at home. The patient is not a smoker. She is not diabetic. Subjective Subjective 29 April 2025: The patient is an 84-year-old female presenting with a pressure ulcer. The ulcer has been persistent, and the patient has been managing it by offloading pressure by sleeping on her right side. The wound has not yet healed completely, and the patient has not received the wound vacuum therapy device yet. The wound measures 1.5 x 1.5 cm and is 1 cm deep, consistent with previous measurements. The patient has been advised to use a wound vacuum to promote granulation and closure of the ulcer. The patient is considering surgical intervention if the wound vacuum therapy does not yield results in a few weeks. The patient is on blood thinners, which would require hospitalization for a week if surgical intervention is pursued. Attestation: Documentation on this patient encounter was supported using ambient scribe technology/ voice AI technology. The patient consented to recording for the purpose of documenting the encounter. Provider reviewed content of the generated note prior to signature. 27 May 2025: Patient doing well overall. Saw Dr. Singleton on my behalf last week. He recommended continued treatment with the Aquacel Ag. Patient does not want to do the wound VAC, she feels is too cumbersome. She is not interested in surgery at this time as she agrees with continue local wound care, and my plan for labs and a biopsy today. Patient does not currently have a pressure offloading bed at home and does not want one at this time as she reports her house is too small. She reports that she does lay on the wound/sleep on this area. 17 Jun 2025: Doing well overall but making minimal progress. She is concerned that it may be related to the hardware that she had in her sacrum from a pelvis/sacrum fracture that she reports she had 3 years ago. CURRENT ENCOUNTER, 02 July 2025: CT scan reviewed with the patient today. No official read but I do not see any involvement of the hardware near the wound (hardware is in the upper right pelvis/sacrum) and I do not see any osteomyelitis. She reports compliance with dressing changes but she has been sitting on the wound. Labs were reviewed and she has appropriate nutrition for wound healing and no diabetes. No personal or family history of bleeding or clotting problems but she does have a history of atrial fibrillation for which she takes apixaban (which her doctor says she can discontinue before surgeries). Objective Data Objective Data Vital Signs: Vital Signs Temp Pulse Resp BP O2 Del Method 97.7 F L 80 18 147/81 H Room Air 07/01/25 09:36 07/01/25 09:36 07/01/25 09:36 07/01/25 09:36 07/01/25 09:36 Oxygen Delivery Method Room Air Charges/Coding Procedures Integumentary 111xxx-113xx: 72119 Vivian subq tissue 20 sq cm/< Physical Exam Narrative Sacral wound Stage III 2 x 2 cm and 1 cm deep No exposed bone There is no visible exposure of hardware or any palpable hardware No drainage. No fluid collections or induration Granulation tissue at the base with some fibrinous exudate Debridement Note Debridement Note Wound debrided: Sacral ulcer Laterality: Not Applicable Wound Grade/Stage: Stage III Type of Debridement: Excisional debridement Anesthesia Used: 4% Lidocaine Solution Depth: in the subcutaneous layer Percentage of wound debrided: 100 Instrument Used: 7mm curette Tissue Removed: Fibrinous exudate Severity: Fat Layer Exposed Amount of bleeding with debridement: Mild Bleeding Controlled with: Pressure Patient tolerated procedure: Patient tolerated procedure well Post-Debridement Measurements and Additional Note: Post-Debridement Measurements/Treatment WC - Nurse 1 - General Ulcer Assessment Start: 06/17/25 09:52 Freq: Status: Active Protocol: KERI Activity Type Activity Date Activity User E-sign Co-sign Detail Recorded Client Recorded Date Recorded By Document 06/17/25 09:52 ML [id number] 06/17/25 09:55 ML Document 07/01/25 09:36 DS [id number] 07/01/25 09:45 DS 06/17/25 07/01/25 09:52 09:36 - Today's Visit Information Type of service Follow-up Visit Follow-up Visit (Physician/PLASTIC SHEETS FINISHING SUPERVISOR (Physician/PLASTIC SHEETS FINISHING SUPERVISOR ) ) Arrival Mode Ambulatory Ambulatory,Cane Accompanied by daughter Patient Identification Verified (Name & Yes Yes ) Patient Requires Transmission-Based No Precautions Safety Precautions Fall Prevention Vital Signs Temperature (97.8 F-99.1 F) 96.9 F L 97.7 F L Temperature Source Temporal Temporal Pulse Rate (60-100) 92 80 Pulse Location Monitor Monitor Respiratory Rate (12-18) 14 18 Respiratory rate source Monitor Monitor Oxygen Delivery Method Room Air Blood Pressure (90/60-120/80) 156/68 H 147/81 H Blood Pressure Mean (mm Hg) 97 103 Source Monitor Monitor Position Semi-Fowlers Sitting Blood Pressure Location Right Arm Left Arm History Since Last Visit- (Skip if this is Patient's initial visit) Have you changed medications since your No No last visit? Any new allergies or adverse reactions No No Had a fall/change in ADL's that may No No increase risk of falls Signs or symptoms of abuse and/or No No neglect since last visit Have you been in the hospital since your No No last visit? Has dressing in place as prescribed Yes Yes Has compression in place as prescribed N/A N/A Has offloadiing in place as prescribed N/A N/A Experienced any changes in pain level or No No management Left Footwear Regular Shoe Right Footwear Regular Shoe Pain Scale: 0-10 Numeric Is Patient Pain Free? Yes No - Nurse 1 - General Ulcer Measurement Start: 06/17/25 09:52 Freq: Status: Active Protocol: Activity Type Activity Date Activity User E-sign Co-sign Detail Recorded Client Recorded Date Recorded By Document 06/17/25 09:52 ML [id number] 06/17/25 09:55 ML Document 07/01/25 09:36 DS [id number] 07/01/25 09:45 DS 06/17/25 07/01/25 09:52 09:36 Wound Center Nurse 1 #1 Coccyx -Current Size (cm) - Length 2 2.0 -Current Size (cm) - Width 2 2.0 -Current Size (cm) - Depth 1.5 1.1 -Total Square Cm 4 4.00 -Date of Last Picture (Recall this 07/01/25 field) -Photo Taken Yes -Tunneling No -Undermining/Tunneling No -Circular Undermining No -Exudate Amt Medium -Exudate Type Serosanguineous -Wound Margin Distinct, Outline Attached -Granulation Amt Medium (34-66%) Medium (34-66%) -Granulation Quality [place] -Slough/Fibrin Yes -Necrosis Amt Medium (34-66%) Small (1-33%) -Necrotic Tissue Type Adherent Slough Adherent Slough -Texture (Danelle-wound Skin Appearance) Assessed Assessed -Moisture (Danelle-wound Skin Appearance) Assessed Assessed -Color (Danelle-wound Skin Appearance) Assessed Assessed -Temperature (Danelle-wound Skin No Abnormality No Abnormality Appearance) (Pt Warm) (Pt Warm) -Tenderness on Palpation (Danelle-wound No No Skin Appearance) -Ulcer Cleansing Rinsed/ Soap and Water Irrigated with Saline -Foul Odor after Cleansing No No -Anesthetic Used 5% Lidocaine 5% Lidocaine Gel Gel WC - Nurse 2 - General Ulcer CM Notes Start: 06/17/25 09:52 Freq: Status: Active Protocol: Activity Type Activity Date Activity User E-sign Co-sign Detail Recorded Client Recorded Date Recorded By Document 06/17/25 10:32 [id number] 06/17/25 10:34 Document 07/01/25 10:02 [id number] 07/01/25 10:11 06/17/25 07/01/25 10:32 10:02 Wound Center Nurse 2 #1 Coccyx -Time 10:33 10:03 -Correct Patient Yes Yes -Correct Side, Site, Position Yes Yes -Correct Procedure Yes Yes -Procedure Performed Yes Yes -Type of Procedure Debridement Debridement -Clinical Debridement Subcutaneous Muscle / Fascia -Tissue Removed Subcutaneous Muscle -Post Debridement (cm) - Length 2 2 -Post Debridement (cm) - Width 2.2 2 -Post Debridement (cm) - Depth 1.0 1 -Total Square (Post) (cm) 4.4 4 -Area of Debridement (cm) - Length 2 2 -Area of Debridement (cm) - Width 2.2 2 -Total Square (Area) (cm) 4.4 4 -Tunneling No No -Undermining/Tunneling No No -Circular Undermining No No -Wound/Ulcer Outcome Not Healed Not Healed -Ulcer Cleansing Rinsed/ Rinsed/ Irrigated with Irrigated with Saline Saline -Foul Odor after Cleansing No No -Bioengineered Tissue No No -Bleeding Controlled with Pressure Pressure -Treatment Response Procedure Procedure Tolerated Well Tolerated Well -Offloading No No -Debridement - Subq, 1st 20sq cm Yes -Debridement - Muscle / Fascia, 1st Yes 20sq cm Pain Scale: 0-10 Numeric Is Patient Pain Free? Yes Yes - Nurse 3 - General Ulcer D/C NN Start: 06/17/25 09:52 Freq: Status: Active Protocol: Activity Type Activity Date Activity User E-sign Co-sign Detail Recorded Client Recorded Date Recorded By Document 06/17/25 10:46 [id number] 06/17/25 10:46 Document 07/01/25 10:11 [id number] 07/01/25 10:12 06/17/25 07/01/25 10:46 10:11 Wound Care Center Nurse 3 #1 Coccyx -Ulcer Cleansing Rinsed/ Irrigated with Saline -Foul Odor after Cleansing No -Primary Dressing Applied Aquacel AG 4x4 Aquacel AG 4x4 -Primary Dressing Covered/Secured with Dry Gauze, Dry Gauze, Secured with Secured with Tape Tape -Aquacel AG 4x4 1 1 Pain Scale: 0-10 Numeric Is Patient Pain Free? Yes Yes - Visit Discharge Discharge Condition Stable Stable Ambulatory Status Ambulatory,Cane Ambulatory, Walker Transportation Private Auto Private Auto Accompanied by family member Medication Reconcilliation completed & No Yes provided to patient/care provider Clinical Summary of Care Provided Yes Yes Notes: CT scan reviewed. Surgical debridement discussion made today. Assessment/Plan Assessment/Plan (1) Sacral decubitus ulcer, stage III: CODE(S): L89.153 - Pressure ulcer of sacral region, stage 3 PLAN: Patient deferring pressure offloading with pressure offloading bed at this time. Patient also deferring wound VAC. Reviewed nutrition labs which include albumin of 3.6, prealbumin of 11, and she has an A1c of 5.2. She is not anemic and her hemoglobin is 12 Biopsy of the wound revealed cutaneous ulcer with active chronic inflammation and reactive epidermal changes (no signs of malignancy). These results were discussed and shared with the patient today at our visit. We are ordering a CT scan to examine the sacrum and any signs of hardware near the wound edges. Patient will follow-up with me in 2 weeks She will continue pressure offloading and daily dressing changes with Aquacel Ag (she cannot get twice daily wet-to-dry dressings). I talked to her briefly about excision and closure of the wound as she is starting to be more open to this idea as we deferred in the past per patient preference. Patient happy with plan. PLAN: Plan Plan from 01 July 2025: I talked to the patient extensively about the risks, benefits, and alternatives to surgery versus continuing dressing changes. She is interested in surgical debridement of the wound with irrigating wound VAC placement followed by later flap reconstruction versus primary closure. She understands the risks of wound healing complications including making a larger wound and flap failure (partial flap necrosis or flap loss resulting in larger wound requiring further interventions and wound care). She understands the risks of bleeding, infection, DVT/PE, damage to surrounding structures, and the risks of anesthesia including perioperative hypotension or hypertension leading to stroke. She also understands the risks of being off of her Eliquis (stroke from atrial fibrillation). She would like to proceed with surgical intervention and understands the postoperative setting protocol as well as the need for possible rehabilitation as she does not have a pressure offloading bed at home and does not want to get one.
--- NOTE | 2025-07-02 10:07 | WC ---
PHOTO-COCCYX 07/01/25
== END 2025-07-09 23:59 | disposition home or self-care (01) ==
LOC: WC 09:45
PROVIDERS: PCP Family Medicine; Referring Provider Surgery Plastic and Reconstructive Surgery; Visit Provider Surgery Plastic and Reconstructive Surgery
DX: L89.153 Pressure ulcer of sacral region, stage 3 (principal); I48.91 Unspecified atrial fibrillation; Z79.01 Long term (current) use of anticoagulants
CPT/HCPCS: 11042; 11043

== ENCOUNTER 2025-08-05 09:15 | Outpatient (RCR) | payer MEDICARE, OTHER, SELFPAY ==
[2025-07-15 09:43] VITALS: BP 127/89; PULSE 73; RESP 16; TEMP 36.6
--- NOTE | 2025-07-15 10:29 | PN.PCM_ITS ---
History of Present Illness Date of Service: 07/15/25 Chief Complaint: Sacral pressure ulceration History of Wound: The patient is seen today on behalf of the patient's regular Wound Center provider, Dr. Francis Cool, and whose medical history has been reviewed, as documented below: The patient is an 84-year-old female who presented with a sacral pressure ulcer that had been gradually worsening over a period of six months. The ulcer developed initially as a sensitive spot that evolved into a cavity without significant visual symptoms of hemorrhage or discharge. The management had involved [employer] applications and packing. The patient's medical history is significant for atrial fibrillation, managed with Apixaban, with implications for future surgical interventions due to bleeding risks. She has a history of lumbar spinal fusion with implanted metal hardware. Historical records indicate maintained integrity of sacral spinal hardware, mitigating concerns regarding hardware-related complications. Dietary habits and past management strategies reflect an understanding of nutritional needs consistent with ongoing medical recommendations. The patient believes her pressure ulcer started as a small abscess that turned into a wound. She puts significant pressure on it daily while leaning back in her recliner at home. The patient is not a smoker. She is not diabetic. Subjective Subjective 29 April 2025: The patient is an 84-year-old female presenting with a pressure ulcer. The ulcer has been persistent, and the patient has been managing it by offloading pressure by sleeping on her right side. The wound has not yet healed completely, and the patient has not received the wound vacuum therapy device yet. The wound measures 1.5 x 1.5 cm and is 1 cm deep, consistent with previous measurements. The patient has been advised to use a wound vacuum to promote granulation and closure of the ulcer. The patient is considering surgical intervention if the wound vacuum therapy does not yield results in a few weeks. The patient is on blood thinners, which would require hospitalization for a week if surgical intervention is pursued. Attestation: Documentation on this patient encounter was supported using ambient scribe technology/ voice AI technology. The patient consented to recording for the purpose of documenting the encounter. Provider reviewed content of the generated note prior to signature. 27 May 2025: Patient doing well overall. Saw Dr. Singleton on my behalf last week. He recommended continued treatment with the Aquacel Ag. Patient does not want to do the wound VAC, she feels is too cumbersome. She is not interested in surgery at this time as she agrees with continue local wound care, and my plan for labs and a biopsy today. Patient does not currently have a pressure offloading bed at home and does not want one at this time as she reports her house is too small. She reports that she does lay on the wound/sleep on this area. 17 Jun 2025: Doing well overall but making minimal progress. She is concerned that it may be related to the hardware that she had in her sacrum from a pelvis/sacrum fracture that she reports she had 3 years ago. 02 July 2025: CT scan reviewed with the patient today. No official read but I do not see any involvement of the hardware near the wound (hardware is in the upper right pelvis/sacrum) and I do not see any osteomyelitis. She reports compliance with dressing changes but she has been sitting on the wound. Labs were reviewed and she has appropriate nutrition for wound healing and no diabetes. No personal or family history of bleeding or clotting problems but she does have a history of atrial fibrillation for which she takes apixaban (which her doctor says she can discontinue before surgeries). CURRENT ENCOUNTER, 15 Jul 2025: Doing well overall with dressing changes and has a surgery date in August that works for her (she does not want a sooner date as she has to make arrangements for her animals). No fevers chills or any problems. Has been continuing high- protein intake Objective Data Objective Data Vital Signs: Vital Signs Temp Pulse Resp BP O2 Del Method 97.9 F 73 16 127/89 H Room Air 07/15/25 09:43 07/15/25 09:43 07/15/25 09:43 07/15/25 09:43 07/15/25 09:43 Oxygen Delivery Method Room Air Charges/Coding Procedures Integumentary 111xxx-113xx: 85125 Vivian subq tissue 20 sq cm/< Physical Exam Narrative Sacral wound Stage III 3x2cm and 1.5 cm deep No exposed bone There is no visible exposure of hardware or any palpable hardware No drainage. No fluid collections or induration Granulation tissue at the base with some fibrinous exudate Debridement Note Debridement Note Wound debrided: Sacral wound Laterality: Not Applicable Wound Grade/Stage: Stage III Type of Debridement: Excisional debridement Anesthesia Used: 4% Lidocaine Solution Depth: in the subcutaneous layer Percentage of wound debrided: 100 Instrument Used: 7mm curette Tissue Removed: Fibrinous exudate and necrotic biofilm Severity: Fat Layer Exposed Amount of bleeding with debridement: Mild Bleeding Controlled with: Pressure Post-Debridement Measurements and Additional Note: Post-Debridement Measurements/Treatment - Nurse 1 - General Ulcer Assessment Start: 07/15/25 09:43 Freq: Status: Active Protocol: KERI Activity Type Activity Date Activity User E-sign Co-sign Detail Recorded Client Recorded Date Recorded By Document 07/15/25 09:43 [id number] 07/15/25 09:46 07/15/25 09:43 - Today's Visit Information Type of service 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 Any new allergies or adverse reactions No Had a fall/change in ADL's that may No increase risk of falls Signs or symptoms of abuse and/or No neglect since last visit Have you been in the hospital since your No last visit? Has dressing in place as prescribed Yes Has compression in place as prescribed N/A Has offloadiing in place as prescribed N/A Experienced any changes in pain level or Yes management Pain Scale: 0-10 Numeric Is Patient Pain Free? Yes [facility] Nurse 1 - General Ulcer Measurement Start: 07/15/25 09:43 Freq: Status: Active Protocol: Activity Type Activity Date Activity User E-sign Co-sign Detail Recorded Client Recorded Date Recorded By Document 07/15/25 09:43 [id number] 07/15/25 09:46 07/15/25 09:43 Wound Center Nurse 1 #1 Coccyx -Current Size (cm) - Length 2.2 -Current Size (cm) - Width 1.7 -Current Size (cm) - Depth 1.4 -Total Square Cm 3.74 -Date of Last Picture (Recall this 07/15/25 field) -Photo Taken Yes -Epithelialization Small 1-33% -Tunneling No -Undermining/Tunneling No -Circular Undermining No -Exudate Amt Small -Exudate Type Yellow/Green -Wound Margin Distinct, Outline Attached -Granulation Amt Large (67-100%) -Granulation Quality Red -Slough/Fibrin Yes -Necrosis Amt Small (1-33%) -Necrotic Tissue Type Adherent Slough -Texture (Danelle-wound Skin Appearance) Assessed, Excoriation, Rash -Moisture (Danelle-wound Skin Appearance) No Abnormality, Assessed -Color (Danelle-wound Skin Appearance) No Abnormality, Assessed -Temperature (Danelle-wound Skin No Abnormality Appearance) (Pt Warm) -Tenderness on Palpation (Danelle-wound No Skin Appearance) -Ulcer Cleansing Soap and Water -Foul Odor after Cleansing No -Anesthetic Used 5% Lidocaine Gel WC - Nurse 2 - General Ulcer CM Notes Start: 07/15/25 09:43 Freq: Status: Active Protocol: Activity Type Activity Date Activity User E-sign Co-sign Detail Recorded Client Recorded Date Recorded By Document 07/15/25 10:07 DS [id number] 07/15/25 10:11 DS Edit Result 07/15/25 10:07 DS (1) [id number] 07/15/25 10:11 DS (1) #1 Coccyx - Clinical Debridement Muscle / Fascia => Subcutaneous - Tissue Removed Muscle => Subcutaneous - Debridement - Subq, 1st 20sq cm => Yes - Debridement - Muscle / Fascia, 1st Yes => 20sq cm 07/15/25 10:07 Wound Center Nurse 2 -Time 10:07 -Correct Patient Yes -Correct Side, Site, Position Yes -Correct Procedure Yes -Procedure Performed Yes -Type of Procedure Debridement -Clinical Debridement Subcutaneous -Tissue Removed Subcutaneous -Post Debridement (cm) - Length 3.0 -Post Debridement (cm) - Width 2.0 -Post Debridement (cm) - Depth 1.5 -Total Square (Post) (cm) 6.00 -Area of Debridement (cm) - Length 3.0 -Area of Debridement (cm) - Width 2.0 -Total Square (Area) (cm) 6.00 -Tunneling No -Undermining/Tunneling No -Circular Undermining No -Wound/Ulcer Outcome Not Healed -Ulcer Cleansing dyhex -Foul Odor after Cleansing No -Bioengineered Tissue No -Bleeding Controlled with Pressure -Treatment Response Procedure Tolerated Well -Debridement - Subq, 1st 20sq cm Yes Pain Scale: 0-10 Numeric Is Patient Pain Free? Yes - Nurse 3 - General Ulcer D/C NN Start: 07/15/25 09:43 Freq: Status: Active Protocol: Activity Type Activity Date Activity User E-sign Co-sign Detail Recorded Client Recorded Date Recorded By Document 07/15/25 10:26 RB [id number] 07/15/25 10:27 RB 07/15/25 10:26 Wound Care Center Nurse 3 #1 Coccyx -Ulcer Cleansing Rinsed/ Irrigated with Saline -Primary Dressing Applied Aquacel AG 4x4 -Other Dressing ABD -Primary Dressing Covered/Secured with Secured with Tape -Aquacel AG 4x4 1 Treatment Response Procedure Tolerated Well Pain Scale: 0-10 Numeric Is Patient Pain Free? Yes WC - Visit Discharge Discharge Condition Stable Ambulatory Status Ambulatory Transportation Private Auto Accompanied by family friend Medication Reconcilliation completed & No provided to patient/care provider Clinical Summary of Care Provided Yes Assessment/Plan Assessment/Plan (1) Sacral decubitus ulcer, stage III: CODE(S): L89.153 - Pressure ulcer of sacral region, stage 3 PLAN: Patient deferring pressure offloading with pressure offloading bed at this time. Patient also deferring wound VAC. Reviewed nutrition labs which include albumin of 3.6, prealbumin of 11, and she has an A1c of 5.2. She is not anemic and her hemoglobin is 12 Biopsy of the wound revealed cutaneous ulcer with active chronic inflammation and reactive epidermal changes (no signs of malignancy). These results were discussed and shared with the patient today at our visit. We are ordering a CT scan to examine the sacrum and any signs of hardware near the wound edges. Patient will follow-up with me in 2 weeks She will continue pressure offloading and daily dressing changes with Aquacel Ag (she cannot get twice daily wet-to-dry dressings). I talked to her briefly about excision and closure of the wound as she is starting to be more open to this idea as we deferred in the past per patient preference. Patient happy with plan. PLAN: Plan Plan from 01 July 2025: I talked to the patient extensively about the risks, benefits, and alternatives to surgery versus continuing dressing changes. She is interested in surgical debridement of the wound with irrigating wound VAC placement followed by later flap reconstruction versus primary closure. She understands the risks of wound healing complications including making a larger wound and flap failure (partial flap necrosis or flap loss resulting in larger wound requiring further interventions and wound care). She understands the risks of bleeding, infection, DVT/PE, damage to surrounding structures, and the risks of anesthesia including perioperative hypotension or hypertension leading to stroke. She also understands the risks of being off of her Eliquis (stroke from atrial fibrillation). She would like to proceed with surgical intervention and understands the postoperative setting protocol as well as the need for possible rehabilitation as she does not have a pressure offloading bed at home and does not want to get one. Plan from 15 July 2025: I reiterated the above-noted risks, benefits, and alternatives to flap surgery. Furthermore we discussed excision and subsequent flap surgery and the flap designs and incisions. We talked about risks of flap failure and necrosis, as well as need for flap readvancement, or further reconstructive options versus wound care. She understands the postoperative protocol for sitting/pressure offloading. She understands that she will need to walk immediately after surgery to prevent a blood clot. She is accepting of all the risks and would like to proceed. Follow-up in 3 weeks before surgery
--- NOTE | 2025-07-16 11:37 | WC ---
PHOTO-COCCYX 07/15/25
[2025-08-05 09:07] VITALS: BP 140/84; PULSE 80; RESP 16; TEMP 35.8
--- NOTE | 2025-08-05 09:23 | PN.PCM_ITS ---
History of Present Illness Date of Service: 07/15/25 Chief Complaint: Sacral pressure ulceration History of Wound: The patient is seen today on behalf of the patient's regular Wound Center provider, Dr. Francis Cool, and whose medical history has been reviewed, as documented below: The patient is an 84-year-old female who presented with a sacral pressure ulcer that had been gradually worsening over a period of six months. The ulcer developed initially as a sensitive spot that evolved into a cavity without significant visual symptoms of hemorrhage or discharge. The management had involved [employer] applications and packing. The patient's medical history is significant for atrial fibrillation, managed with Apixaban, with implications for future surgical interventions due to bleeding risks. She has a history of lumbar spinal fusion with implanted metal hardware. Historical records indicate maintained integrity of sacral spinal hardware, mitigating concerns regarding hardware-related complications. Dietary habits and past management strategies reflect an understanding of nutritional needs consistent with ongoing medical recommendations. The patient believes her pressure ulcer started as a small abscess that turned into a wound. She puts significant pressure on it daily while leaning back in her recliner at home. The patient is not a smoker. She is not diabetic. Subjective Subjective 29 April 2025: The patient is an 84-year-old female presenting with a pressure ulcer. The ulcer has been persistent, and the patient has been managing it by offloading pressure by sleeping on her right side. The wound has not yet healed completely, and the patient has not received the wound vacuum therapy device yet. The wound measures 1.5 x 1.5 cm and is 1 cm deep, consistent with previous measurements. The patient has been advised to use a wound vacuum to promote granulation and closure of the ulcer. The patient is considering surgical intervention if the wound vacuum therapy does not yield results in a few weeks. The patient is on blood thinners, which would require hospitalization for a week if surgical intervention is pursued. Attestation: Documentation on this patient encounter was supported using ambient scribe technology/ voice AI technology. The patient consented to recording for the purpose of documenting the encounter. Provider reviewed content of the generated note prior to signature. 27 May 2025: Patient doing well overall. Saw Dr. Singleton on my behalf last week. He recommended continued treatment with the Aquacel Ag. Patient does not want to do the wound VAC, she feels is too cumbersome. She is not interested in surgery at this time as she agrees with continue local wound care, and my plan for labs and a biopsy today. Patient does not currently have a pressure offloading bed at home and does not want one at this time as she reports her house is too small. She reports that she does lay on the wound/sleep on this area. 17 Jun 2025: Doing well overall but making minimal progress. She is concerned that it may be related to the hardware that she had in her sacrum from a pelvis/sacrum fracture that she reports she had 3 years ago. 02 July 2025: CT scan reviewed with the patient today. No official read but I do not see any involvement of the hardware near the wound (hardware is in the upper right pelvis/sacrum) and I do not see any osteomyelitis. She reports compliance with dressing changes but she has been sitting on the wound. Labs were reviewed and she has appropriate nutrition for wound healing and no diabetes. No personal or family history of bleeding or clotting problems but she does have a history of atrial fibrillation for which she takes apixaban (which her doctor says she can discontinue before surgeries). 15 Jul 2025: Doing well overall with dressing changes and has a surgery date in August that works for her (she does not want a sooner date as she has to make arrangements for her animals). No fevers chills or any problems. Has been continuing high- protein intake CURRENT ENCOUNTER, 05 Aug 2025: Doing well. Discussed upcoming surgery. All questions answered. Objective Data Objective Data Vital Signs: Vital Signs Temp Pulse Resp BP O2 Del Method 96.5 F L 80 16 140/84 H Room Air 08/05/25 09:07 08/05/25 09:07 08/05/25 09:07 08/05/25 09:07 08/05/25 09:07 Oxygen Delivery Method Room Air Charges/Coding Visit Charges Office Visits / Consults: 46089 OV L2 Est 10min Physical Exam Narrative Sacral wound Stage IV (fascia) 3x2cm and 1.5 cm deep No exposed bone. Down to fascia There is no visible exposure of hardware or any palpable hardware No drainage. No fluid collections or induration Granulation tissue at the base with some fibrinous exudate Debridement Note Debridement Note No debridement was completed: No debridement was completed today Post-Debridement Measurements and Additional Note: Post-Debridement Measurements/Treatment WC - Nurse 1 - General Ulcer Assessment Start: 07/15/25 09:43 Freq: Status: Active Protocol: KERI Activity Type Activity Date Activity User E-sign Co-sign Detail Recorded Client Recorded Date Recorded By Document 07/15/25 09:43 [id number] 07/15/25 09:46 Document 08/05/25 09:07 DS [id number] 08/05/25 09:09 DS 07/15/25 08/05/25 09:43 09:07 - Today's Visit Information Type of service Follow-up Visit Follow-up Visit (Physician/AUTOMOTIVE EXHAUST EMISSIONS TECHNICIAN (Physician/AUTOMOTIVE EXHAUST EMISSIONS TECHNICIAN ) ) Arrival Mode Ambulatory Ambulatory Transfer Assistance None Accompanied by DAUGHTER Patient Identification Verified (Name & Yes Yes ) Patient Requires Transmission-Based No Precautions Safety Precautions Fall Prevention Vital Signs Temperature (97.8 F-99.1 F) 97.9 F 96.5 F L Temperature Source Temporal Temporal Pulse Rate (60-100) 73 80 Pulse Location Monitor Monitor Respiratory Rate (12-18) 16 16 Respiratory rate source Observation Observation Oxygen Delivery Method Room Air Room Air Blood Pressure (90/60-120/80) 127/89 H 140/84 H Blood Pressure Mean (mm Hg) 101 102 Source Monitor Monitor Position Sitting Semi-Fowlers Blood Pressure Location Left Arm Left Arm History Since Last Visit- (Skip if this is Patient's initial visit) Have you changed medications since your No No last visit? Any new allergies or adverse reactions No No Had a fall/change in ADL's that may No No increase risk of falls Signs or symptoms of abuse and/or No No neglect since last visit Have you been in the hospital since your No No last visit? Has dressing in place as prescribed Yes No Has compression in place as prescribed N/A N/A Has offloadiing in place as prescribed N/A N/A Experienced any changes in pain level or Yes No management Left Footwear Regular Shoe Right Footwear Regular Shoe Pain Scale: 0-10 Numeric Is Patient Pain Free? Yes Yes - Nurse 1 - General Ulcer Measurement Start: 07/15/25 09:43 Freq: Status: Active Protocol: Activity Type Activity Date Activity User E-sign Co-sign Detail Recorded Client Recorded Date Recorded By Document 07/15/25 09:43 [id number] 07/15/25 09:46 Document 08/05/25 09:07 DS [id number] 08/05/25 09:09 DS 07/15/25 08/05/25 09:43 09:07 Wound Center Nurse 1 #1 Coccyx -Combined with other wound No -Current Size (cm) - Length 2.2 2.1 -Current Size (cm) - Width 1.7 1.5 -Current Size (cm) - Depth 1.4 2.0 -Total Square Cm 3.74 3.15 -Date of Last Picture (Recall this 07/15/25 08/05/25 field) -Photo Taken Yes Yes -Epithelialization Small 1-33% -Tunneling No No -Undermining/Tunneling No No -Circular Undermining No No -Exudate Amt Small -Exudate Type Yellow/Green -Wound Margin Distinct, Distinct, Outline Outline Attached Attached -Granulation Amt Large (67-100%) Large (67-100%) -Granulation Quality Red [place] -Slough/Fibrin Yes Yes -Necrosis Amt Small (1-33%) Small (1-33%) -Necrotic Tissue Type Adherent Slough Adherent Slough -Texture (Danelle-wound Skin Appearance) Assessed, Assessed Excoriation, Rash -Moisture (Danelle-wound Skin Appearance) No Abnormality, Assessed Assessed -Color (Danelle-wound Skin Appearance) No Abnormality, Assessed, Assessed Erythema -Temperature (Danelle-wound Skin No Abnormality No Abnormality Appearance) (Pt Warm) (Pt Warm) -Tenderness on Palpation (Danelle-wound No No Skin Appearance) -Ulcer Cleansing Soap and Water Soap and Water -Foul Odor after Cleansing No No -Anesthetic Used 5% Lidocaine 5% Lidocaine Gel Gel WC - Nurse 2 - General Ulcer CM Notes Start: 07/15/25 09:43 Freq: Status: Active Protocol: Activity Type Activity Date Activity User E-sign Co-sign Detail Recorded Client Recorded Date Recorded By Document 07/15/25 10:07 DS [id number] 07/15/25 10:11 DS Edit Result 07/15/25 10:07 DS (1) [id number] 07/15/25 10:11 DS Document 08/05/25 09:13 JF [id number] 08/05/25 09:17 JF (1) #1 Coccyx - Clinical Debridement Muscle / Fascia => Subcutaneous - Tissue Removed Muscle => Subcutaneous - Debridement - Subq, 1st 20sq cm => Yes - Debridement - Muscle / Fascia, 1st Yes => 20sq cm 07/15/25 08/05/25 10:07 09:13 Wound Center Nurse 2 #1 Coccyx -Time 10: 09:13 -Correct Patient Yes Yes -Correct Side, Site, Position Yes No -Correct Procedure Yes No -Procedure Performed Yes No -Type of Procedure Debridement -Clinical Debridement Subcutaneous -Tissue Removed Subcutaneous -Post Debridement (cm) - Length 3.0 2 -Post Debridement (cm) - Width 2.0 3 -Post Debridement (cm) - Depth 1.5 1.5 -Total Square (Post) (cm) 6.00 6 -Area of Debridement (cm) - Length 3.0 2 -Area of Debridement (cm) - Width 2.0 3 -Total Square (Area) (cm) 6.00 6 -Tunneling No No -Undermining/Tunneling No No -Circular Undermining No No -Wound/Ulcer Outcome Not Healed Not Healed -Ulcer Cleansing dyhex Rinsed/ Irrigated with Saline -Foul Odor after Cleansing No No -Bioengineered Tissue No No -Bleeding Controlled with Pressure Pressure -Treatment Response Procedure Procedure Tolerated Well Tolerated Well -Offloading No -Debridement - Subq, 1st 20sq cm Yes -Debridement - Muscle / Fascia, 1st No 20sq cm Pain Scale: 0-10 Numeric Is Patient Pain Free? Yes Yes - Nurse 3 - General Ulcer D/C NN Start: 07/15/25 09:43 Freq: Status: Active Protocol: Activity Type Activity Date Activity User E-sign Co-sign Detail Recorded Client Recorded Date Recorded By Document 07/15/25 10:26 RB [id number] 07/15/25 10:27 RB Document 08/05/25 09:18 [id number] 08/05/25 09:19 07/15/25 08/05/25 10:26 09:18 Wound Care Center Nurse 3 #1 Coccyx -Ulcer Cleansing Rinsed/ Rinsed/ Irrigated with Irrigated with Saline Saline -Foul Odor after Cleansing No -Primary Dressing Applied Aquacel AG 4x4 Aquacel AG 4x4 -Other Dressing ABD -Primary Dressing Covered/Secured with Secured with Dry Gauze, Tape Secured with Tape -Aquacel AG 4x4 1 1 Treatment Response Procedure Tolerated Well Pain Scale: 0-10 Numeric Is Patient Pain Free? Yes Yes - Visit Discharge Discharge Condition Stable Stable Ambulatory Status Ambulatory Ambulatory Transportation Private Auto Private Auto Accompanied by family friend FRIEND Medication Reconcilliation completed & No Yes provided to patient/care provider Clinical Summary of Care Provided Yes Yes Assessment/Plan Assessment/Plan (1) Stage 4 skin ulcer of sacral region: CODE(S): L98.429 - Non-pressure chronic ulcer of back with unspecified severity (2) Sacral decubitus ulcer, stage III: CODE(S): L89.153 - Pressure ulcer of sacral region, stage 3 PLAN: Patient deferring pressure offloading with pressure offloading bed at this time. Patient also deferring wound VAC. Reviewed nutrition labs which include albumin of 3.6, prealbumin of 11, and she has an A1c of 5.2. She is not anemic and her hemoglobin is 12 Biopsy of the wound revealed cutaneous ulcer with active chronic inflammation and reactive epidermal changes (no signs of malignancy). These results were discussed and shared with the patient today at our visit. We are ordering a CT scan to examine the sacrum and any signs of hardware near the wound edges. Patient will follow-up with me in 2 weeks She will continue pressure offloading and daily dressing changes with Aquacel Ag (she cannot get twice daily wet-to-dry dressings). I talked to her briefly about excision and closure of the wound as she is starting to be more open to this idea as we deferred in the past per patient preference. Patient happy with plan. PLAN: Plan Plan from 01 July 2025: I talked to the patient extensively about the risks, benefits, and alternatives to surgery versus continuing dressing changes. She is interested in surgical debridement of the wound with irrigating wound VAC placement followed by later flap reconstruction versus primary closure. She understands the risks of wound healing complications including making a larger wound and flap failure (partial flap necrosis or flap loss resulting in larger wound requiring further interventions and wound care). She understands the risks of bleeding, infection, DVT/PE, damage to surrounding structures, and the risks of anesthesia including perioperative hypotension or hypertension leading to stroke. She also understands the risks of being off of her Eliquis (stroke from atrial fibrillation). She would like to proceed with surgical intervention and understands the postoperative setting protocol as well as the need for possible rehabilitation as she does not have a pressure offloading bed at home and does not want to get one. Plan from 15 July 2025: I reiterated the above-noted risks, benefits, and alternatives to flap surgery. Furthermore we discussed excision and subsequent flap surgery and the flap designs and incisions. We talked about risks of flap failure and necrosis, as well as need for flap readvancement, or further reconstructive options versus wound care. She understands the postoperative protocol for sitting/pressure offloading. She understands that she will need to walk immediately after surgery to prevent a blood clot. She is accepting of all the risks and would like to proceed. Follow-up in 3 weeks before surgery PLAN from 05 Aug 2025: I talked to the patient extensively about the risks of surgery, including bleeding, infection, damage to surrounding structures, poor scaring, surgical site dehiscence and wound formation (forming a larger wound, flap failure), need for wound care, need for repeat operations, failure to obtain the desired result, DVT/PE (Caprini score 7 -- discussed) , and the risks of anesthesia including , including stroke (from low blood pressure/ischemia or clot). The benefits and alternatives of this surgery were also discussed. All of their questions were answered, and they agreed to proceed with surgery. Plan for surgery nect week, debridement Aug and REcon 7 Aug (tentative)
--- NOTE | 2025-08-06 10:36 | WC ---
[email or web address] 08/05/25
== END 2025-08-09 23:59 | disposition home or self-care (01) ==
LOC: WC 09:15
PROVIDERS: PCP Family Medicine; Referring Provider Surgery Plastic and Reconstructive Surgery; Visit Provider Surgery Plastic and Reconstructive Surgery
DX: L89.153 Pressure ulcer of sacral region, stage 3 (principal); I48.91 Unspecified atrial fibrillation; Z79.01 Long term (current) use of anticoagulants
CPT/HCPCS: 11042; 99213; G0463

== ENCOUNTER 2025-08-12 07:52 | Inpatient (IN) | payer MEDICARE, OTHER, SELFPAY ==
--- NOTE | 2025-07-31 10:57 | PAT.ANE_ITS ---
Pre-Assessment Diagnosis/Proposed Procedure Planned Operative Procedure(s): Excision sacral wound with wound vac placement Anesthesia History Anesthesia History - [employer]: Anesthesia History - [employer] Hx Hospitalization No 07/29/25 15:12 Any Problems With Anesthesia No 07/29/25 15:12 Cholinesterase deficiency No 07/29/25 15:12 You/Your Family Experience No 07/29/25 15:12 fever (hyperthermia) with Relationship Recent Exposure to Contagious No 10/08/21 11:07 Disease Does patient have nerve No 07/29/25 15:12 stimulator Patient instructed to have device shut off --Does patient have Pacemaker or ICD? When Was Last Pacemaker Check QUESTION #4 FULL TEXT: You/Your Family Experience fever (hyperthermia) with Anesthesia Last Oral Intake Last Oral intake: Last Oral Intake NPO since Meds taken in AM with sips of water? Meds patient instructed to take am of surgery PONV PONV - [employer]: PONV - [employer] Female Yes 07/29/25 15:12 HX of Motion Sickness No 07/29/25 15:12 HX of N/V After Surgery No 07/29/25 15:12 Non-Smoker Yes 07/29/25 15:12 Duration of Surgery greater No 07/29/25 15:12 than 60 minutes Number of Risk Factors 2 07/29/25 15:12 PONV Score Moderate Risk 07/29/25 15:12 Height & Weight Height & Weight: Anesthesia: Height & Weight Height 4 ft 10 in 04/22/25 15:01 Respiratory Assessment Respiratory Assessment - [employer]: Respiratory Tract Infection Hx - [employer] Hx Respiratory Tract Infection No 07/29/25 15:12 STOP Sleep Apnea STOP Sleep Apnea - [employer]: STOP Sleep Apnea - [employer] Hx Hypertension No 07/29/25 15:12 Hx Sleep Apnea No 07/29/25 15:12 CPAP BIPAP Do you snore loudly (louder No 07/29/25 15:12 than talking or can be heard Do you often feel tired/ No 07/29/25 15:12 fatigued/ sleepy during daytime? Has anyone observed you stop No 07/29/25 15:12 breathing during sleep? STOP Results Negative 07/29/25 15:12 QUESTION #5 FULL TEXT : Do you snore loudly (louder than talking or can be heard through closed doors)? 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 Specify any problems Hx of Preganancy in last 3 No 07/29/25 15:12 Months Nurse Filling Out Transfusion VCHRISTIN 07/29/25 15:12 & Questions: Date: 07/29/25 07/29/25 15:12 Time: 15:16 07/29/25 15:12 Patient unable to answer at this time (ie. confused, unrespo /Reproduction History /Reproductive History - [employer]: /Reproductive Hx- [employer] Hx Now No 07/29/25 15:12 Gestational Age (in weeks): EDC: Hx Hx Para Hx Section SAB No 07/29/25 15:12 [facility] Medical History (Updated 07/29/25 @ 15:12 by Emmy Wei) Post-menopausal Thyroid disease Injury of head and neck Shortness of breath on exertion Cancer Arthritis Anemia Cirrhosis High cholesterol Back pain Difficulty swallowing History of hiatal hernia History of ulceration History of IBS History of diverticulitis Gastric reflux Non-smoker History of edema History of echocardiogram History of stress test Cardiology follow-up encounter History of atrial fibrillation Hx of small bowel obstruction Home Medications ?Medication ?Instructions ?Recorded ?Last Taken ?Type Immucore 1 tab PO/SL DAILY 10/01/21 U nknown History atorvastatin 10 mg tablet 10 mg PO QHS 10/01/21 Unknow n History cholecalciferol (vitamin D3) 50 50 mcg PO DAILY Unknown History mcg (2,000 unit) capsule (Vitamin D3) dabigatran etexilate 150 mg 150 mg PO BID 10/01/21 Unk nown History capsule (Pradaxa) dexlansoprazole 60 mg 60 mg PO DAILY 10/01/2109/11 0 History capsule,biphase delayed release (Dexilant) diltiazem HCl 240 mg 240 mg PO DAILY 10/01/21 History capsule,extended release 24 hr furosemide 40 mg tablet 40 mg PO BID PRN Edema 10/01 Unknown History lubiprostone 8 mcg capsule 8 mcg PO BID 10/01/21 Unkno wn History (Amitiza) milk thistle 150 mg capsule 300 mg PO DAILY 10/01/21 U nknown History multivitamin 1 cap PO DAILY 10/01/21 Unkn own History polyethylene glycol 3350 17 gram 17 g PO DAILY 1 Unknown History oral powder packet (Miralax) levothyroxine 100 mcg tablet 100 mcg PO DAILY 04/22/25 Unknown History naloxone 4 mg/actuation nasal spray 4 mg intranasal IA N 04/22/25 Unknown History tramadol 50 mg tablet 50 mg PO Q6H PRN PRN pain Unknown History apixaban 2.5 mg tablet (Eliquis) 2.5 mg PO BID 5 Unknown History propafenone 150 mg tablet 150 mg PO BID 07/29/25 Unkno wn History Allergy/AdvReac Type Severity Reaction Status Date / Time adhesive tape AdvReac Rash Verified 07/29/25 14:41 NSAIDS (Non-Steroidal AdvReac Nausea Verified 07/29/25 14:41 Anti-Inflamma Surgical History (Updated 07/29/25 @ 15:12 by Emmy Wei) Hx of eye surgery History of ureteroscopy History of esophagogastroduodenoscopy (EGD) Hx of colonoscopy Hx of total shoulder replacement History of bilateral knee arthroplasty Hx of bilateral cataract extraction History of laparoscopic cholecystectomy Hx of laparoscopy Hx of hysterectomy, total Hx of appendectomy Hx of tonsillectomy Social History Smoking Status: Never smoker Audit: Pertinent Findings Pertinent Findings EKG Perinent findings: 12/12/2024. Sinus rhythm 90 bpm. Additional pertinent findings: 02/12/2020. CT heart with and without contrast. Reason for exam atrial fibrillation. Nonobstructive coronary artery disease identified. Recommendation Anesthesia Recommendation Anesthesia recommendation: OPTIMIZED for anesthesia
[2025-08-12] VITALS (13 sets, daily range): BP systolic 90–119; BP diastolic 48–70; PULSE 68–87; RESP 14–18; TEMP 36.2–37.1; O2SAT 90–99; BMI 28.0
--- OUTSIDE RECORDS SUMMARY | 2025-08-12 06:02 | XMS RPT_ITS | CCD ---
Author Organization [facility] Care Team Providers Care Transfer Station Attendant Name Role Phone Sancho Woodruff Unavailable Unavailab Haroon Salinas Unavailable Americo Lee Unavailable [phone] Denisse Streeter Unavailable Denisse Streeter Unavailable Unavailable Denisse Streeter Unavailable Unavailable Sancho Woodruff Primary Care Provider Haroon Quintanilla Unavailable Americo Lee Unavailable [phone] Denisse Streeter Unavailable SYSTEM, PROVIDER NOT IN Attending Unavaila ble SYSTEM, PROVIDER NOT IN Referring Unavaila ble SANCHO WOODRUFF Primary Care Unavailab Sancho Ronquillo Unavailable Unavailable Oksana Ocampo Unavailable Unavailable StencelSancho Unavailable Unavailable Stenabdirizak, Sancho Unavailable Unavailable Sancho Woodruff Primary Care Provider [phone] Haroon Quintanilla Unavailable Americo Lee Unavailable [phone] Denisse Streeter Unavailable Sancho Woodruff MD Primary Care Provider Haroon Quintanilla MD Unavailable [phone] Americo Lee MD Unavailable Denisse Streeter CNP Unavailable [phone] Sancho Woodruff Unavailable [phone] Unavailable Unavailable Haroon Quintanilla MD Unavailable Unavailable Unavailable Socorro PIERRE, Haroon Schaffer Unavailable [phone] [facility], Denisse J. Unavailable [facility], Denisse J. Unavailable Sancho Woodruff MD Primary Care Provider Socorro PIERRE, Haroon Schaffer Unavailable Jesus PIERRE, Americo Sheehan Unavailable [phone] [facility], Denisse J. Unavailable [phone] [facility], Denisse J. Unavailable Sancho Woodruff Unavailable Xin Pereira Unavailable Unavailable Kacy PIERRE, Sancho Casey Primary Care Provider Haroon Quintanilla MD Unavailable Jesus PIERRE, Americo Sheehan Unavailable [phone] [facility], Denisse JKamilla Unavailable Oksana Ocampo Unavailable Shahid Colunga Unavailable Burt Gonzalez Unavailable [phone] Kacy PIERRE, Sancoh Primary Care Provider Sancho Woodruff MD Unavailable Darrell LOCK, Magalis Unavailable Unavailable Stencel, Dr. Sancho Casey Attending Unava ilable Stencel, Dr. Sancho Casey Primary Care Unava ilable Zumbar, Dr. Maria Teresa Sousa Admitting Unav ailable Zumbar, Dr. Maria Teresa Sousa Attending Unav ailable Stencel, Dr. Sancho Casey Referring Unava ilable Stencel, Dr. Sancho Casey Primary Care Rhondava ilable Burt Gonzalez Attending Unavailable Stencel, Dr. Sancho Casey Primary Care Rhondava ilable Burt Gonzalez Attending Unavailable Stencel, Dr. Sancho Casey Primary Care Rhondava ilBurt Aden Attending Unavailable Stencel, Dr. Sancho Casey Primary Care Unava ilable Stencel, Dr. Sancho Casey Attending Unava ilable Stencel, Dr. Sancho Casey Referring Unava ilable Stencel, Dr. Sancho Casey Primary Care Unava ilable Stencel, Dr. Sancho Casey Attending Unava ilable Stencel, Dr. Sancho Casey Referring Unava ilable Stencel, Dr. Sancho Casey Primary Care Unava ilable Stencel, Dr. Sancho Casey Attending Unava ilable Stencel, Dr. Sancho Casey Primary Care Unava ilable Stencel, Dr. Sancho Casey Referring Unava ilable Stencel, Dr. Sancho Casey Referring Unava ilable Stencel, Dr. Sancho Casey Primary Care Unava ilable Stencel, Dr. Sancho Casey Attending Unava ilable Stencel, Dr. Sancho Casey Referring Unava ilable Stencel, Dr. Sancho Casey Attending Unava ilable Stencel, Dr. Sancho Casey Primary Care Unava ilable Oksana Ocampo Admitting Unavailable Thommaria eugenia, Oksana Attending Unavailable Wood, MsKamilla Wilson Referring Unav ailable Stencel, Dr. Sancho Casey Primary Care Unava ilable Zumbar, Dr. Maria Teresa Sousa Admitting Unav ailable Zumbar, Dr. Maria Teresa Sousa Attending Unav ailable Stencel, Dr. Sancho Casey Referring Unava ilable Stencel, Dr. Sancho Casey Primary Care Unava ilable Burt Gonzalez Attending Unavailable Stencel, Dr. Sancho Casey Primary Care Unava ilable Zumbar, Dr. Maria Teresa Sousa Attending Unav ailable Stencel, Dr. Sancho Casey Primary Care Unava ilable BRIAN, DO SHAHID KINGSLEY Admitting Rhonda vailable BRIAN, DO SHAHID KINGSLEY Attending Rhonda vailable BRIAN, DO SHAHID KINGSLEY Referring Rhonda vailable Stencel, Dr. Sancho Casey Primary Care Unava ilable Xin Pereira Attending Unavailable Stencel, Dr. Sancho Casey Primary Care Unava ilable Stencel Sancho PIERRE Primary Care Provider Sancho Woodruff MD Unavailable [phone] Sancho Woodruff MD Primary Care Provider Haroon Quintanilla MD Unavailable Americo Lee MD Unavailable Denisse Streeter CNP Unavailable BIMAL PATTERSON Attending Unavailab le STENCEL, SANCHO CASEY Primary Care Unavailab le Thomae, Dr. kOsana Alegria Attending Unavailable Stencel, Dr. Sancho Casey Referring Unava ilable Stencel, Dr. Sancho Casey Primary Care Unava ilable Stencel, Dr. Sancho Casey Attending Unava ilable Stencel, Dr. Sancho Casey Referring Unava ilable Stencel, Dr. Sancho Casey Primary Care Unava ilable Stencel, Dr. Sancho Casey Attending Unava ilable Stencel, Dr. Sancho Casey Referring Unava ilable Stencel, Dr. Sancho Casey Primary Care Unava ilable Darrell LOCK, Magalis Unavailable Unavailable Sancho Woodruff MD Unavailable Sancho Woodruff MD Primary Care Provider KACY, SANCHO Rizzo Primary Care Unavailable STENCEL, SANCHO Rizzo Primary Care Unavailable STENCEL, SANCHO Rizzo Primary Care Unavailable JAYLAN BENAVIDES Referring Unavailable JAYLAN BENAVIDES Attending Unavailable STENCEL, SANCHO CASEY Primary Care Unavailab le STENCEL, SANCHO CASEY Primary Care Unavailab le DANISJAYLAN DAVILA Attending Unavailable JAYLAN BENAVIDES Admitting Unavailable Sancho Woodruff MD Unavailable Sancho Woodruff MD Primary Care Provider Kacy PIERRE, Dr. Kingsley Primary Care Provider Dr. Sylvia Colo MD Attending Provider Dr. Sylvia Cool MD Referring Provider Dr. Sylvia Cool MD Other Provider Dr. Sancho Woodruff MD Primary Care Provider [phone] Dr. Sylvia Cool MD Attending Provider Dr. Sylvia Cool MD Referring Provider Dr. Sylvia Cool MD Other Provider Dr. Vineet Singleton MD Attending Provider JAYLAN BENAVIDES Attending Unavailable STENCEL, SANCHO CASEY Primary Care Unavailab le VOSSCHRISTINE SWANN Attending Unavailable STENCEL, SANCHO CASEY Primary Care Unavailab le JOSE A ORNELAS Attending Unavailable STENCEL, SANCHO CASEY Primary Care Unavailab le STENCEL, SANCHO CASEY Primary Care Unavailab le BORGES, WANG MARTINEZ Attending Unavailable STENCEL, SANCHO CASEY Primary Care Unavailab le BORGES, WANG JUAN Attending Unavailable STENCEL, SANCHO CASEY Primary Care Unavailab JAYLAN Hudson Attending Unavailable Dr. Sancho Woodruff MD Primary Care Physician Silvina PIERRE, Dr. Blanco Attending Physician Dr. Sylvia Cool MD Nurse Practitioner Dr. Vineet Singleton MD Attending Physician Sancho Woodruff MD Unavailable [phone] Sancho Woodruff MD Primary Care Provider [phone] DARIELA GARZA Referring Unavailable STENCEL, SANCHO Rizzo Primary Care Unavailable DARIELA GARZA Referring Unavailable STENCEL, SANCHO Rizzo Primary Care Unavailable DARIELA GARZA Referring Unavailable STENCEL, SANCHO Rizzo Primary Care Unavailable GARZADARIELA DEVINE Referring Unavailable STENCEL, SANCHO Rizzo Primary Care Unavailable DARIELA GARZA Referring Unavailable STENCEL, SANCHO Rizzo Primary Care Unavailable DARIELA GARZA Referring Unavailable STENCEL, SANCHO Rizzo Primary Care Unavailable DARIELA GARZA Referring Unavailable STENCEL, SANCHO Rizzo Primary Care Unavailable DARIELA GARZA Referring Unavailable STENCEL, SANCHO Rizzo Primary Care Unavailable DARIELA GARZA Referring Unavailable STENCEL, SANCHO Rizzo Primary Care Unavailable MAYKEL DARIELA Shameka Referring Unavailable STENCEL, SANCHO Rizzo Primary Care Unavailable GARZADARIELA BARRY Referring Unavailable STENCEL, SANCHO Rizzo Primary Care Unavailable GARZADARIELA BARRY Referring Unavailable STENCEL, SANCHO Rizzo Primary Care Unavailable GARZA, DARIELA Shameka Referring Unavailable STENCEL, SANCHO Rizzo Primary Care Unavailable GARZA, DARIELA Shameka Referring Unavailable STENCEL, SANCHO Rizzo Primary Care Unavailable GARZA, DARIELA C Referring Unavailable STENCEL, SANCHO Rizzo Primary Care Unavailable GARZA, DARIELA C Referring Unavailable STENCEL, SANCHO Rizzo Primary Care Unavailable GARZA, DARIELA C Referring Unavailable STENCEL, SANCHO Rizzo Primary Care Unavailable GARZA, DARIELA C Referring Unavailable STENCEL, SANCHO Rizzo Primary Care Unavailable GARZA, DARIELA C Referring Unavailable STENCEL, SANCHO Rizzo Primary Care Unavailable GARZA, DARIELA C Referring Unavailable STENCEL, SANCOH Rizzo Primary Care Unavailable GARZA, DARIELA C Referring Unavailable STENCEL, SANCHO Rizzo Primary Care Unavailable MAYKEL DARIELA C Referring Unavailable STENCEL, SANCHO Rizzo Primary Care Unavailable DARIELA GARZA C Referring Unavailable STENCEL, SANCHO D Primary Care Unavailable DARIELA GARZA Referring Unavailable STENCEL, SANCHO D Primary Care Unavailable DARIELA GARZA Referring Unavailable STENCEL, SANCHO D Primary Care Unavailable DARIELA GARZA Referring Unavailable STENCEL, SANCHO D Primary Care Unavailable GARZADARIELA BARRY Referring Unavailable STENCEL, SANCHO D Primary Care Unavailable GARZADARIELA C Referring Unavailable STENCEL, SANCHO D Primary Care Unavailable STENCEL, SANCHO D Referring Unavailable STENCEL, SANCHO D Primary Care Unavailable SISKA, SYLVIA C Referring Unavailable STENCEL, SANCHO D Primary Care Unavailable SISKA, SYLVIA C Referring Unavailable STENCEL, SANCHO D Primary Care Unavailable SISKA, SYLVIA C Referring Unavailable STENCEL, SANCHO D Primary Care Unavailable SISKA, SYLVIA C Referring Unavailable STENCEL, SANCHO D Primary Care Unavailable SISKA, SYLVIA C Referring Unavailable STENCEL, SANCHO D Primary Care Unavailable SISKA, SYLVIA C Referring Unavailable STENCEL, SANCHO D Primary Care Unavailable SISKA, SYLVIA C Referring Unavailable STENCEL, SANCHO D Primary Care Unavailable SISKA, SYLVIA C Referring Unavailable STENCEL, SANCHO D Primary Care Unavailable SISKA, SYLVIA C Referring Unavailable STENCEL, SANCHO D Primary Care Unavailable SISKA, SYLVIA C Referring Unavailable STENCEL, SANCHO D Primary Care Unavailable SISKA, SYLVIA C Referring Unavailable STENCEL, SANCHO D Primary Care Unavailable SISKA, SYLVIA C Referring Unavailable STENCEL, SANCHO D Primary Care Unavailable SISKA, SYLVIA C Referring Unavailable STENCEL, SANCHO D Primary Care Unavailable SISKA, SYLVIA C Referring Unavailable STENCEL, SANCHO D Primary Care Unavailable SISKA, SYLVIA C Referring Unavailable STENCEL, SANCHO D Primary Care Unavailable SISKA, SYLVIA C Referring Unavailable STENCEL, SANCHO D Primary Care Unavailable SISKA, SYLVIA C Referring Unavailable STENCEL, SANCHO D Primary Care Unavailable SISKA, SYLVIA C Referring Unavailable STENCEL, SANCHO D Primary Care Unavailable SISKA, SYLVIA C Referring Unavailable STENCEL, SANCHO D Primary Care Unavailable SISKA, SYLVIA C Referring Unavailable STENCEL, SANCHO D Primary Care Unavailable TONY RAO Attending Unavailable STENCEL, SANCHO D Primary Care Unavailable SISKA, SYLVIA C Referring Unavailable STENCEL, SANCHO D Primary Care Unavailable SISKA, SYLVIA C Referring Unavailable STENCEL, SANCHO D Primary Care Unavailable SISKA, SYLVIA C Referring Unavailable STENCEL, SANCHO D Primary Care Unavailable SISKA, SYLVIA C Referring Unavailable STENCEL, SANCHO D Primary Care Unavailable SISKA, SYLVIA C Referring Unavailable STENCEL, SANCHO D Primary Care Unavailable SISKA, SYLVIA C Referring Unavailable STENCEL, SANCHO D Primary Care Unavailable SISKASYLVIA Referring Unavailable STENCEL, SANCHO D Primary Care Unavailable SISKASYLVIA Referring Unavailable STENCEL, SANCHO D Primary Care Unavailable SISKASYLVIA Referring Unavailable STENCEL, SANCHO D Primary Care Unavailable SISKASYLVIA Referring Unavailable STENCEL, SANCHO D Primary Care Unavailable GARZADARIELA BARRY Attending Unavailable STENCEL, SANCHO D Primary Care Unavailable GARZADARIELA BARRY Attending Unavailable STENCEL, SANCHO D Primary Care Unavailable GARZADARIELA BARRY Attending Unavailable STENCEL, SANCHO D Referring Unavailable STENCEL, SANCHO D Primary Care Unavailable STENCEL, SANCHO D Attending Unavailable STENCEL, SANCHO D Primary Care Unavailable STENCEL, SANCHO D Attending Unavailable STENCEL, SANCHO D Referring Unavailable STENCEL, SANCHO D Primary Care Unavailable STENCEL, SANCHO D Attending Unavailable STENCEL, SANCHO D Primary Care Unavailable GARZADARIELA BARRY Attending Unavailable STENCEL, SANCHO D Referring Unavailable STENCEL, SANCHO D Primary Care Unavailable GARZADARIELA DEVINE Attending Unavailable STENCEL, SANCHO D Primary Care Unavailable GARZADARIELA DEVINE Attending Unavailable STENCEL, SANCHO D Primary Care Unavailable STENCEL, SANCHO D Attending Unavailable STENCEL, SANCHO D Referring Unavailable STENCEL, SANCHO D Primary Care Unavailable GARZADARIELA DEVINE Attending Unavailable STENCEL, SANCHO D Primary Care Unavailable GARZADARIELA DEVINE Attending Unavailable STENCEL, SANCHO D Primary Care Unavailable Siska, Sylvia Consulting Unavailable Siska, Sylvia Attending Unavailable Stencel, Sancho Primary Care Unavailable Siska, Sylvia Referring Unavailable Siska, Sylvia Consulting Unavailable Siska, Sylvia Attending Unavailable Stencel, Sancho Primary Care Unavailable Siska, Sylvia Referring Unavailable Siska, Sylvia Consulting Unavailable Siska, Sylvia Attending Unavailable Siska, Sylvia Referring Unavailable Stencel, Sancho Primary Care Unavailable Siska, Sylvia Consulting Unavailable Siska, Sylvia Referring Unavailable Siska, Sylvia Attending Unavailable Stencel, Sancho Primary Care Unavailable Siska, Sylvia Admitting Unavailable Siska, Sylvia Attending Unavailable Stencel, Sancho Primary Care Unavailable Siska, Sylvia Admitting Unavailable Siska, Sylvia Referring Unavailable Siska, Sylvia Attending Unavailable Stencel, Sancho Primary Care Unavailable Siska, Sylvia Referring Unavailable Siska, Sylvia Attending Unavailable Stencel, Sancho Primary Care Unavailable Siska, Sylvia Referring Unavailable Siska, Sylvia Attending Unavailable Stencel, Sancho Primary Care Unavailable Siska, Sylvia Referring Unavailable Siska, Sylvia Attending Unavailable Stencel, Sancho Primary Care Unavailable Siska, Sylvia Attending Unavailable Stencel, Sancho Primary Care Unavailable Siska, Sylvia Referring Unavailable Siska, Sylvia Attending Unavailable Siska, Sylvia Referring Unavailable Stencel, Sancho Primary Care Unavailable Siska, Sylvia Referring Unavailable Stencel, Sancho Primary Care Unavailable Siska, Sylvia Attending Unavailable Siska, Sylvia Consulting Unavailable Siska, Sylvia Referring Unavailable Siska, Sylvia Attending Unavailable Stencel, Sancho Primary Care Unavailable Siska, Sylvia Consulting Unavailable Siska, Sylvia Referring Unavailable Stencel, Sancho Primary Care Unavailable Siska, Sylvia Attending Unavailable Siska, Sylvia Referring Unavailable Siska, Sylvia Consulting Unavailable Siska, Sylvia Attending Unavailable Stencel, Sancho Primary Care Unavailable Allergies Allergy Classification Reported Allergen(s) Allergy Type Date of Onset Reaction(s) Facility cyclobenzaprine (1 source) cyclobenzaprine Drug Allergy [facility] hydroCHLOROthiazide / Lisinopril (4 sources) hydroCHLOROthiazide / Lisinopril; Translations: [Zestoretic TABS] Drug Allergy 020 [facility] Latex (1 source) Latex Substance Allergy [facility] NSAIDs (7 sources) Ibuprofen; Translations: [Lodine] Drug Allergy Other (See Comments), GI Intolerance [facility] Opioid Agonists (4 sources) Codeine; Translations: [Codeine] Drug Allergy Other (See Comments) [facility] (20 sources) codeine; Translations: [Codeine] Propensity to adverse reactions to drug 015 Other (See Comments), Unknown, Other [facility] Comment on above: nausea (20 sources) cyclobenzaprine; Translations: [CYCLOBENZAPRINE] Propensity to adverse reactions to drug 015 Other, Other (See Comments) [facility] (20 sources) ibuprofen; Translations: [Advil TABS] Propensity to adverse reactions to drug 015 Other (See Comments), GI Intolerance, Unknown, Nausea Only, Other [facility] (20 sources) Latex; Translations: [LATEX] Propensity to adverse reactions to drug 016 Rash [facility] (20 sources) ADHESIVE TAPE-SILICONES; Translations: [ADHESIVE TAPE-SILICONES] Propensity to adverse reactions to drug 015 Rash [facility] (20 sources) NYLON; Translations: [Unknown] Propensity to adverse reactions to drug 016 Unknown [facility] (20 sources) Etodolac; Translations: [Lodine] Drug Allergy [facility] Work Phone: (20 sources) hydroCHLOROthiazide / Lisinopril; Translations: [Zestoretic TABS] Drug Allergy 020 Unknown -[facility] Work Phone: (20 sources) Tape 1X5YD TAPE; Translations: [Tape 1X5YD TAPE] [facility] (20 sources) Adhesive agent; Translations: [ADHESIVE] Drug Intolerance 015 [facility] (20 sources) Etodolac; Translations: [ETODOLAC] Drug Allergy [facility] Work Phone: (6 sources) hydroCHLOROthiazide / Lisinopril; Translations: [LISINOPRIL-HYDROCHLO ROTHIAZIDE] Drug Allergy [facility] Rep[facility] (17 sources) Non-steroidal anti-inflammatory agent; Translations: [NSAIDS (NON-STEROIDAL ANTI-INFLAMMATORY DRUG)] Propensity to adverse reactions to drug Other (See Comments) [facility] (4 sources) Adhesive Tape; Translations: [adhesive tape] Propensity to adverse reactions [facility] Comment on above: SURGICAL TAPE (3 sources) Nonsteroidal Anti-inflammatory Compounds Propensity to adverse reactions Nausea [facility] (3 sources) Adhesive agent Drug Intolerance [facility] (2 sources) Non-steroidal anti-inflammatory agent Propensity to adverse reactions to drug Other (See Comments) [facility] (1 source) NSAIDs Drug allergy (disorder) [facility] Repository Medications Current Medications Medication Drug Class(es) Dates Sig (Normalized) Sig (Original) acetaminophen 325 mg / HYDROcodone bitartrate 5 mg oral tablet (20 sources) Opioid Agonist Start: 11-29-2019 End: 12-07-2019 take 1 tablet by mouth every four hours as needed HYDROcodone-aceta minophen (NORCO) 5-325 mg per tablet Indications: S/P reverse total shoulder arthroplasty, right Take 1 (one) tablet by mouth every 4 (four) hours as needed . 40 tablet 0 11/30/2019 12/07/2019 Active Start: 04-19-2018 End: 11-30-2019 take 1 tablet by mouth every eight hours as needed HYDROcodone-acetaminophen (NORCO) 5-325 mg per tablet Take 1 tablet by mouth every 8 (eight) hours as needed . 0 04/19/2018 11/30/2019 Discontinued (Reorder) Start: 04-19-2018 HYDROcodone-ac etaminophen (NORCO) 5-325 mg per tablet Start: 2016 End: 11-30-2019 HYDROcodone-acetaminophen 2. 5-325 mg Tab amoxicillin 500 mg oral capsule (20 sources) Penicillin-class Antibacterial Start: 09-17-2019 End: 11-19-2020 amoxicillin (AMOXIL) 500 MG capsule apixaban 2.5 mg oral tablet (20 sources) Factor Xa Inhibitor Start: 06-19-2025 take 1 tablet by mouth twice daily apixaban (Eliquis) 2.5 mg tablet Take 1 (one) tablet (2.5 mg total) by mouth 2 (two) times a day . 180 tablet 3 06/25/2025 12:40 PM EDT 06/19/2025 Active Start: 08-04-2023 End: 06-19-2025 take 1 tablet by mouth twice daily apixaban (Eliquis) 5 mg tablet Indications: AF (paroxysmal atrial fibrillation) (Multi) Take 1 tablet (5 mg) by mouth 2 times a day. 180 tablet 3 02/27/2025 11:01 AM EDT 07/16/2024 Active Start: 04-11-2023 End: 05-19-2023 apixaban (Eliquis) 5 mg Tab One bid . 180 tablet 3 04/11/2023 05/19/2023 Discontinued (Stop Taking at Discharge) Start: 11-18-2022 End: 10-13-2023 take 1 tablet by mouth twice daily apixaban (ELIQUIS) 2.5 mg Tab Take 1 (one) tablet (2.5 mg total) by mouth 2 (two) times a day . 0 11/18/2022 04/11/2023 Discontinued Start: 11-18-2022 take 1 tablet by viktor th twice daily Eliquis 5 MG Oral Tablet Take 1 tablet twice daily Quantity: 180 Refills: 3 Ordered: 18-Nov-2022 Sancho Woodruff MD Start : 18-Nov-2022 Active take 0.5 tablet by m outh twice daily Eliquis 5 mg oral tablet ; 0.5 tab(s) orally 2 times a day Quantity: 0 Refills: 0 Ordered: 21-Jan-2023 Shahid Colunga Generic Substitution Allowed atorvastatin 10 mg oral tablet (20 sources) HMG-CoA Reductase Inhibitor Start: 11-19-2020 End: 01-01-2025 take 1 tablet by mouth at bedtime cholecalciferol 0.05 mg oral capsule (20 sources) Vitamin D Start: 10-01-2021 take 1 capsule by mouth once daily take 1 tablet by mouth once tre y cholecalciferol (Vitamin D-3) 25 MCG (1000 UT) tablet Take 1 tablet (1,000 Units) by mouth once daily. Active dabigatran etexilate 150 mg oral capsule (20 sources) Start: 10-01-2021 End: 04-11-2023 take 1 capsule by mouth twice daily take 1 capsule by mouth twice da ghulam dabigatran (PRADAXA) 75 mg capsule Take 75 mg by mouth 2 (two) times a day . 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 Take before meal. 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 Take before meal. 90 capsule 3 11/08/2023 11/07/2024 Active take 1 capsule by mo uth once daily in the morning dexlansoprazole (DEXILANT) 30 mg capsule Take 1 (one) capsule (30 mg total) by mouth daily AM . Active Dexlansoprazole (Dexilant) 60 mg Capsule,Biphase Delayed Releas (2 sources) Start: 10-01-2021 take 1 capsule by mouth once daily Dexlansoprazole (Dexilant) 60 mg Capsule,Biphase Delayed Releas Active 60 mg PO DAILY October 01, 2021 1:00am 24 hr dilTIAZem hydrochloride 240 mg extended release oral capsule (20 sources) Calcium Channel Noemy Start: 05-04-2015 End: 04-03-2026 take 1 capsule by mouth once daily dilTIAZem CD (Cardizem CD) 240 mg 24 hr capsule Indications: Closed fracture of sacrum, unspecified portion of sacrum, initial encounter (Multi) TAKE 1 CAPSULE BY MOUTH EVERY DAY 90 capsule 3 06/25/2025 12:40 PM EDT 04/03/2025 04/03/2026 Active estradiol 0.01 mg vaginal insert (20 sources) Estrogen End: 01-01-2025 estradiol (Vagifem) 10 mcg tablet vaginal tablet Insert 1 tablet (10 mcg) into the vagina. 01/01/2025 Discontinued (Med List Cleanup) ferrous sulfate 325 mg oral tablet (1 source) Start: 01-21-2023 take 1 tablet by mouth twice daily FeroSul 325 mg (65 mg elemental iron) oral tablet ; 1 tab(s) orally 2 times a day Quantity: 60 Refills: 0 Ordered: 21-Jan-2023 Shahid Colunga Start: 21-Jan-2023 Generic Substitution Allowed fluocinolone acetonide 0.1 mg/ml otic solution (17 sources) Corticosteroid Start: 11-15-2024 fluocinolone (DermOtic Oil) 0.01 % ear drops Place 2 DROPS in affected EAR(S) Twice a day 30 mL 3 11/16/2024 2:25 PM EST 11/15/2024 Active Start: 11-15-2024 fluocinolone a cetonide oiL 0.01 % Drop 2 (two) times a day as needed . 11/15/2024 Active fluocinolone 0.0 1% otic solution ; 5 drop(s) to each affected ear 2 times a day, As Needed Quantity: 0 Refills: 0 Ordered: 17-Jan-2023 Marcella Starr Generic Substitution Allowed foam bandage (Mepilex Border) 3 X 3 bandage (4 sources) Start: 01-18-2025 End: 02-17-2025 apply 1 dose transdermal route three times weekly foam bandage (Mepilex Border) 3 X 3 bandage Indications: Skin ulcer, unspecified ulcer stage (Multi) Apply 1 patch topically [address] moistened gauze above medihoney and cover with mepilex 15 each 01/18/2025 02/17/2025 Active furosemide 40 mg oral tablet (20 sources) Loop Diuretic Start: 11-18-2022 End: 04-03-2026 take 2 tablets by mouth once daily furosemide (Lasix) 40 mg tablet Indications: AF (paroxysmal atrial fibrillation) (Multi) TAKE 2 TABLETS BY MOUTH EVERY DAY 180 tablet 3 04/15/2025 12:20 PM EDT 04/03/2025 04/03/2026 Active Start: 05-26-2022 furosemide (La six) 40 mg tablet Start: 10-01-2021 take 1 tablet by viktor twice daily as needed for edema Start: 2017 End: 11-30-2019 take 1 tablet by mouth once daily as needed furosemide (LASIX) 40 MG tablet Take 40 mg by mouth daily as needed . 0 2017 Active honey ([employer], honey,) ge l topical gel (4 sources) Start: 01-18-2025 End: 02-17-2025 honey ([employer], honey,) ge l topical gel Indications: Skin ulcer, unspecified ulcer stage (Multi) Apply 1 Application topically 3 times a week. 60 mL 01/18/2025 02/17/2025 Active Immucore (3 sources) Start: 10-01-2021 Start: 10-01-2021 Immucore Activ e 1 {tbl} SL/PO DAILY October 01, 2021 1:00am krill oil 1000 mg oral capsule (1 source) take 1 capsule by mouth once daily Fish Oil 1000 mg oral capsule ; 1 cap(s) orally once a day Quantity: 0 Refills: 0 Ordered: 17-Jan-2023 Marcella Starr Generic Substitution Allowed levothyroxine sodium 0.1 mg oral tablet (20 sources) l-Thyroxin e Start: 11-13-2024 End: 11-13-2025 take 1 tablet by mouth once daily levothyroxine (Synthroid, Levoxyl) 100 mcg tablet Indications: Acquired hypothyroidism Take 1 tablet (100 mcg) by mouth once daily. 90 tablet 3 06/25/2025 12:40 PM EDT 11/13/2024 11/13/2025 Active Start: 10-13-2023 End: 10-12-2024 take 1 tablet by mouth once daily in the morning levothyroxine (Synthroid, Levoxyl) 100 mcg tablet Indications: Acquired hypothyroidism Take 1 tablet (100 mcg) by mouth once daily. 30 tablet 11 08/10/2024 9:49 AM EDT 10/13/2023 10/12/2024 Active Start: 07-12-2023 End: 10-13-2023 take 1 tablet by mouth once daily levothyroxine (Synthroid, Levoxyl) 75 mcg tablet Indications: Acquired hypothyroidism Take 1 tablet (75 mcg) by mouth once daily. 30 tablet 11 07/12/2023 10/13/2023 Discontinued (Reorder) Start: 01-04-2022 End: 11-04-2023 take 1 tablet by mouth once daily in the morning levothyroxine (SYNTHROID, LEVOTHROID) 50 MCG tablet Take 1 (one) tablet (50 mcg total) by mouth once daily AM . 01/05/2022 Active take 1 capsule by [facility] daily levothyroxine 50 mcg (0.05 mg) oral capsule ; 1 cap(s) orally once a day Quantity: 0 Refills: 0 Ordered: 16-Jun-2022 Claire Rubin Generic Substitution Allowed lubiprostone 0.008 mg oral capsule (20 sources) Chloride Channel Activator Start: 06-12-2019 End: 11-13-2025 take 1 capsule by mouth twice daily lubiprostone (Amitiza) 8 mcg capsule Indications: Constipation, unspecified constipation type Take 1 capsule (8 mcg) by mouth 2 times daily (morning and late afternoon). 180 capsule 3 02/27/2025 11:01 AM EDT 11/13/2024 11/13/2025 Active Start: 06-12-2019 End: 11-30-2019 take 8 ug by mouth once daily at breakfast 8 mcg, Oral, Daily with breakfast, First dose on Tue11/30/19 at 0800 DO NOT CRUSH OR CHEW. methocarbamol 500 mg oral tablet (20 sources) Muscle Relaxant Start: 01-10-2025 End: 03-11-2025 take 1 tablet by mouth four times daily as needed for muscle spasms methocarbamol (Robaxin) 500 mg tablet Indications: DDD (degenerative disc disease), lumbosacral , Lumbar stenosis with neurogenic claudication Take 1 tablet (500 mg) by mouth 4 times a day as needed for muscle spasms. 40 tablet 01/21/2025 10:03 AM EDT 01/10/2025 Active Start: 09-05-2024 take 1 tablet by viktor th once daily methocarbamoL (ROBAXIN) 500 MG tablet Take 1 (one) tablet (500 mg total) by mouth once daily . 09/05/2024 Active Start: 09-04-2024 take 1 tablet by viktor th four times daily as needed for muscle spasms methocarbamol (Robaxin) 500 mg tablet Indications: DDD (degenerative disc disease), lumbosacral , Lumbar stenosis with neurogenic claudication Take 1 tablet (500 mg) by mouth 4 times a day as needed for muscle spasms. 40 tablet 09/13/2024 11:24 AM EST 09/04/2024 Active Start: 04-16-2024 End: 06-15-2024 take 1 tablet by mouth four times daily as needed for muscle spasms methocarbamol (Robaxin) 500 mg tablet Indications: DDD (degenerative disc disease), lumbosacral , Lumbar stenosis with neurogenic claudication Take 1 tablet (500 mg) by mouth 4 times a day as needed for muscle spasms. 40 tablet 06/22/2024 1:02 PM EDT 06/14/2024 Active methylPREDNISolone (6 sources) Corticosteroid Start: 05-11-2024 End: 01-01-2025 methylPREDNISolone (Medrol Dospak) 4 mg tablets Follow package directions . 21 tablet 05/13/2024 9:24 AM EDT 05/11/2024 01/01/2025 Discontinued (Therapy completed) Start: 05-11-2024 methylPREDNISo lone (Medrol Dospak) 4 mg tablets Follow package directions . 21 tablet 05/13/2024 9:24 AM EDT 05/11/2024 Active Start: 05-11-2024 End: 05-17-2024 methylPREDNISolone (MEDROL D OSEPACK) 4 mg tablet Follow package directions . 21 tablet 05/11/2024 05/17/2024 Active Start: 2022 End: 01-02-2023 methylPREDNISolone (MEDROL D OSEPACK) 4 mg tablet Follow package directions . 21 tablet 0 2022 01/02/2023 Active Milk Thistle (3 sources) Start: 10-01-2021 take 2 capsules by mouth once daily Start: 10-01-2021 take 2 capsules by m outh once daily Milk Thistle 150 mg Capsule Active 300 mg PO DAILY October 01, 2021 1:00am Multivitamin Capsule (3 sources) Start: 10-01-2021 Start: 10-01-2021 Multivitamin C apsule Active 1 NMA PO DAILY October 01, 2021 1:00am multivitamin with minerals tablet (20 sources) take 1 tablet by viktor th once daily in the evening multivitamin with minerals tablet Take 1 (one) tablet by mouth daily PM . Active take 1 tablet by viktor th once daily in the evening multivitamin with minerals tablet Take 1 (one) tablet by mouth daily PM . 0 take 1 tablet by viktor th once daily in the evening multivitamin with minerals tablet Take 1 (one) tablet by mouth daily PM . 0 Suspended take 1 tablet by viktor th once daily in the evening multivitamin with minerals tablet Take 1 (one) tablet by mouth daily PM . 0 Active take 1 tablet by mouth once tre y multivitamin with minerals tablet Take 1 (one) tablet by mouth daily . 0 Active take 1 tablet by mouth once tre y multivitamin with minerals tablet Take 1 tablet by mouth daily . 0 Active naloxone hydrochloride 40 mg /ml nasal spray (15 sources) Opioid Antagonist Start: 04-22-2025 Start: 05-11-2024 naloxone (Narc an) 4 mg/0.1 mL nasal spray Administer 1 spray into one nostril for known or suspected opioid overdose. If patient worsens or does not respond, may repeat in 2-3 minutes. . 2 each 05/13/2024 9:24 AM EDT 05/11/2024 Active naloxone (NARCAN) 4 mg/actuation [place] (11 sources) Start: 05-11-2024 naloxone (NARCAN) 4 mg/actuation [place] Administer 1 spray into one nostril for known or suspected opioid overdose. If patient worsens or does not respond, may repeat in 2-3 minutes. . 2 each 05/11/2024 Active Naloxone 4 mg/actuation spray,non-aerosol (2 sources) Start: 04-22-2025 Naloxone 4 mg/actuation spray,non-aerosol Active INTRANASAL April 22, 2025 12:00am nitrofurantoin, macrocrystals 25 mg / nitrofurantoin, monohydrate 75 mg oral capsule (20 sources) Nitrofuran Antibacterial Start: 10-13-2023 End: 10-18-2023 take 1 capsule by mouth twice daily nitrofurantoin, macrocrystal-monoh ydrate, (Macrobid) 100 mg capsule Indications: Acute UTI Take 1 capsule (100 mg) by mouth 2 times a day for 5 days. 10 capsule 3 10/13/2023 10/18/2023 Active Start: 10-11-2019 End: 11-19-2020 nitrofurantoin, macrocrystal -monohydrate, (MACROBID) 100 MG capsule Take 100 mg by mouth . 0 10/11/2019 11/19/2020 Discontinued nystatin 100 unt/mg topical powder (3 sources) Polyene Antifungal Start: 07-01-2025 nystatin (M ycostatin) 100,000 unit/gram powder Use 1 application topically twice a day for 7 days. Apply to the skin around the sacral wound. 15 g 1 07/03/2025 12:17 PM EDT 07/01/2025 Active Start: 07-01-2025 End: 07-08-2025 Nystatin 100,000 unit/gram p owder Discontinued 1 NMA TOPICAL TWICE A DAY 30 7 0 July 01, 2025 12:00am July 07, 2025 12:00am July 08, 2025 12:11am To the skin around the sacral wound ofloxacin 3 mg/ml ophthalmic solution (5 sources) Quinolone Antimicrobial Start: 01-17-2024 End: 01-01-2025 take 1 drop(s) into the eye(s) four times daily in the morning ofloxacin (Ocuflox) 0.3 % ophthalmic solution Instill 1 drop Left Eye 4 times a day 5 mL 02/04/2024 9:38 AM EDT 01/17/2024 01/01/2025 Discontinued (Med List Cleanup) [place]-3 Fatty Acids-Vitamin E 1,000 mg Capsule (3 sources) Start: 10-01-2021 Start: 10-01-2021 [place]-3 Fatty Acids-Vitamin E 1,000 mg Capsule Active 1 NMA PO DAILY October 01, 2021 1:00am pantoprazole 20 mg delayed release oral tablet (20 sources) Proton Pump Inhibitor Start: 11-29-2019 End: 12-31-2019 take 1 tablet by mouth once daily pantoprazole (PROTONIX) 20 MG tablet Take 1 (one) tablet (20 mg total) by mouth daily Start: 12/01/19. 30 tablet 0 12/01/2019 Active polyethylene glycol 3350 13351 mg powder for oral solution (20 sources) Osmotic Laxative Start: 11-04-2022 End: 11-07-2024 polyethylene glycol (Glycolax, Miralax) 17 gram/dose powder Indications: Constipation, unspecified constipation type MIX 17 GRAMS IN 8 OUNCES OF LIQUID AND DRINK TWICE DAILY NEEDED. 510 g 11 11/08/2023 11/07/2024 Active Start: 10-01-2021 Start: 11-30-2019 End: 12-07-2019 polyethylene glycol (MIRALAX ) 17 gram powder Take 17 (seventeen) g by mouth daily for 7 days . 255 g 0 11/30/2019 12/07/2019 Active prednisoLONE acetate 10 mg/ml ophthalmic suspension (5 sources) Corticosteroid Start: 01-17-2024 End: 01-01-2025 take 1 drop(s) into the eye(s) four times daily in the morning prednisoLONE acetate (Pred-Forte) 1 % ophthalmic suspension Instill 1 drop Left Eye 4 times a day 10 mL 1 02/04/2024 9:38 AM EDT 01/17/2024 01/01/2025 Discontinued (Therapy completed) predniSONE 10 mg oral tablet (7 sources) Start: 03-12-2024 End: 03-18-2024 take 4 tablets by mouth once daily predniSONE (Deltasone) 10 mg tablet Indications: Acute pain of left knee Take 4 tablets (40 mg) by mouth once daily for 5 days. 20 tablet 03/12/2024 03/18/2024 Active Start: 09-09-2022 End: 09-13-2022 take 3 tablets by mouth once daily at mealtime predniSONE 20 mg oral tablet ; 3 tab(s) orally once a day Quantity: 15 Refills: 0 Ordered: 09-Sep-2022 Xin Pereira Start: 09-Sep-2022 End: 13-Sep-2022 Generic Substitution Allowed Comments: It is very important that you take or use this exactly as directed. Do not skip doses or discontinue unless directed by your doctor.Obtain medical advice before taking any non-prescription drugs as some may affect the action of this medication.Take with food or milk. Start: 05-17-2022 take 2 tablets by mo uth once daily predniSONE 20 MG Oral Tablet TAKE 2 TABLETS DAILY. Quantity: 10 Refills: 0 Ordered: 17-May-2022 Alex Mohan MD Start : 17-May-2022 Active Comment on above: It is very important that you take or use this exactly as directed. Do not skip doses or discontinue unless directed by your doctor.Obtain medical advice before taking any non-prescription drugs as some may affect the action of this medication.Take with food or milk. propafenone hydrochloride 150 mg oral tablet (20 sources) Antiarrhythmic Start: 06-25-20 End: 06-25-20 26 take 1 tablet by mouth twice daily propafenone (Rythmol) 150 mg tablet Take 1 tablet (150 mg) by mouth 2 times a day. 180 tablet 3 06/25/2025 12:40 PM EDT 06/25/2025 Active Start: 03-23-2023 End: 04-19-2025 take 1 tablet by mouth twice daily propafenone (RYTHMOL) 150 MG tablet Take 1 (one) tablet (150 mg total) by mouth 2 (two) times a day . 180 tablet 3 04/19/2024 Active Start: 04-08-2022 Propafenone HC l - 150 MG Oral Tablet Quantity: 60 Refills: 0 Ordered: 08-Apr-2022 DO Start : 08-Apr-2022 Active Start: 03-09-2022 End: 03-09-2023 take 1 tablet by mouth twice daily propafenone (RYTHMOL) 150 MG tablet Take 1 (one) tablet (150 mg total) by mouth 2 (two) times a day . 60 tablet 11 03/09/2022 03/09/2023 Active rosuvastatin calcium 5 mg oral tablet (20 sources) HMG-CoA Reductase Inhibitor Start: 08-24-2023 End: 10-18-2025 take 1 tablet by mouth once daily rosuvastatin (Crestor) 5 mg tablet Take 1 (one) tablet (5 mg total) by mouth nightly . 90 tablet 3 06/03/2025 10:32 AM EDT 10/18/2024 Active sulfamethoxazole 800 mg / trimethoprim 160 mg oral tablet (20 sources) Dihydrofolate Reductase Inhibitor Antibacterial, Sulfonamide Antimicrobial Start: 12-10-2019 take 1 tablet by mouth twice daily as needed sulfamethoxazole- trimethoprim (BACTRIM DS,SEPTRA DS) 800-160 mg per tablet Indications: celluitis Take 1 tablet by mouth 2 (two) times a day as needed Reasons: celluitis. 0 12/10/2019 Active Tramadol 50 mg Tablet,Disintegrating (3 sources) Start: 10-01-2021 Start: 10-01-2021 Tramadol 50 mg Tablet,Disintegrating Active 50 mg PO NEEDED as needed for Pain October 01, 2021 1:00am Completed/Discontinued Medications Medication Drug Class(es) Dates Sig (Normalized) Sig (Original) 100 ml acetaminophen 10 mg/ml injection (2 sources) Start: 05-19-2023 End: 05-19-2023 acetaminophen (OFIRMEV) injection Start: 11-29-2019 End: 11-30-2019 take 1 tablet by mouth every four hours 650 mg, Oral, Every 4 hours, First dose on Patrica 11/29/19 at 2000, For 6 doses 500 ml albumin human, fci 50 mg/ml injection (1 source) Human Serum Albumin Start: 05-19-2023 End: 05-19-2023 albumin human 5 % solution albuterol 0.833 mg/ml / ipratropium bromide 0.167 mg/ml inhalation solution (1 source) Anticholinergic, beta2-Adrenergic Agonist Start: 05-19-2023 End: 05-19-2023 take 3 mL by inhalation every twenty-four hours as needed 3 mL, Inhalation, Once as needed, shortness of breath, Starting on Patrica 05/19/23 at 1151, For 1 dose, PACU (only) aspirin 81 mg delayed release oral tablet (20 sources) Platelet Aggregation Inhibitor, Nonsteroidal Anti-inflammatory Drug Start: 10-01-2021 End: 04-22-2025 take 1 tablet by mouth once daily Aspirin 81 mg Tablet,Delayed Release (Dr/Ec) Discontinued 81 mg PO DAILY October 01, 2021 1:00am April 22, 2025 3:15pm Start: 11-30-2019 End: 12-07-2019 take 1 tablet by mouth twice daily aspirin 325 MG buffered tablet Take 1 (one) tablet (325 mg total) by mouth 2 (two) times a day for 7 days . 14 tablet 0 11/30/2019 12/07/2019 Active Aspirin 81 MG TA BS TAKE 1 TABLET DAILY. Quantity: 0 Refills: 0 Ordered: 17-Sep-2019 DO Active take 6 tablets by mo ut once daily aspirin 81 mg oral tablet ; orally once a day Quantity: 0 Refills: 0 Ordered: 15-Jun-2022 Jose A Barger Generic Substitution Allowed End: 11-30-2019 take 1 tablet by mouth once daily aspirin 81 MG EC tablet Take 81 mg by mouth daily . 0 11/30/2019 Discontinued (Stop Taking at Discharge) aspirin 81 mg / calcium carbonate 777 mg oral tablet (20 sources) Platelet Aggregation Inhibitor, Nonsteroidal Anti-inflammatory Drug End: 07-30-2025 take 1 tablet by mouth once daily aspirin-calcium carbonate 81 mg-300 mg calcium(777 mg) tablet Take 1 tablet by mouth once daily. 07/30/2025 Discontinued (Therapy completed) calcium chloride 0.0014 meq/ml / potassium chloride 0.004 meq/ml / sodium chloride 0.103 meq/ml / sodium lactate 0.028 meq/ml injectable solution (4 sources) Start: 05-19-2023 End: 05-19-2023 take 100 mL intravenously every hour 100 mL/hr, Intravenous, Continuous, Starting on Patrica 05/19/23 at 1245, PACU (only) Start: 11-29-2019 End: 11-30-2019 take 50 mL intravenous route every hour 50 mL/hr, Intravenous, Continuous, Starting Patrica 11/29/19 at 2030 Saline lock when tolerating PO fluids/meals without nausea or vomiting Start: 11-29-2019 End: 11-29-2019 lactated Ringers infusion ceFAZolin 2000 mg injection (2 sources) Cephalosporin Antibacterial Start: 05-19-2023 End: 05-19-2023 ceFAZolin (ANCEF) IVPB 2 g (premix) Start: 11-29-2019 End: 11-30-2019 take 1000 mg intravenous route every eight hours 1,000 mg, Intravenous, at 100 mL/hr, Every 8 hours, First dose on Patrica 11/29/19 at 1900, For 3 doses, PACU to Post Procedure Starting in pacu. Indication (POST PROCEDURE): Ortho cefprozil 250 mg oral tablet (1 source) Cephalosporin Antibacterial Start: 07-23-2020 take 1 tablet by mouth once daily Cefprozil 250 MG Oral Tablet TAKE 1 TABLET EVERY 12 HOURS DAILY. Quantity: 14 Refills: 1 Sancho Woodruff MD Start : 23-Jul-2020 Active chlordiazePOXIDE hydrochloride 5 mg / clidinium bromide 2.5 mg oral capsule (4 sources) Anticholinergic, Benzodiazepine End: 04-05-2023 chlordiazepoxide-c lidinium (Librax) 5-2.5 mg capsule Take 1 capsule by mouth. 0 04/05/2023 Discontinued (Therapy completed) ciprofloxacin 500 mg oral tablet (6 sources) Quinolone Antimicrobial Start: 10-08-2021 End: 04-22-2025 take 1 tablet by mouth twice daily Ciprofloxacin Hcl (Cipro) 500 mg tablet Discontinued 500 mg PO TWICE A DAY 10 October 08, 2021 1:00am April 22, 2025 3:16pm Cipro TABS TAKE 1 TABLET TWICE DAILY. Quantity: 0 Refills: 0 Ordered: 06-Jan-2023 DO Active desipramine hydrochloride 10 mg oral tablet (2 sources) Tricyclic Antidepressant Start: 06-12-2025 End: 07-30-2025 take 1 tablet by mouth once daily at bedtime desipramine (Norpramin) 10 mg tablet Indications: Lumbar stenosis with neurogenic claudication , Chronic pain syndrome , Myofascial pain Take 1 tablet (10 mg) by mouth once daily at bedtime. 30 tablet 06/25/2025 12:40 PM EDT 06/12/2025 07/30/2025 Discontinued (Med List Cleanup) 1 ml dexamethasone phosphate 4 mg/ml injection (1 source) Corticosteroid Start: 05-19-2023 End: 05-19-2023 dexAMETHasone (DECADRON) injection dexAMETHasone (DECADRON) 1 mL, triamcinolone acetonide (KENALOG-40) 40 mg/mL 1 mL (2 sources) Start: 06-01-2024 End: 06-01-2024 2 mL, Injection, Once as needed Procedure, Starting on 06/01/24 at 1115, For 1 dose diclofenac sodium 0.01 mg/mg topical gel (20 sources) Nonsteroidal Anti-inflammatory Drug Start: 12-21-2023 End: 07-30-2025 diclofenac sodium (Voltaren) 1 % gel Apply to cervical neck and shoulders as needed up to 4 times per day for pain relief. 100 g 1 12/24/2023 9:56 AM EDT 12/21/2023 07/30/2025 Discontinued (Med List Cleanup) Start: 12-21-2023 diclofenac sod ium 1% (VOLTAREN) 1 % Gel Indications: Rotator cuff disorder, right , Cervicalgia Apply topically 4 (four) times a day as needed for pain Apply to cervical neck and shoulders as needed up to 4 times per day for pain relief. . 32 g 1 12/21/2023 Active dicloxacillin 250 mg oral capsule (8 sources) Penicillin-class Antibacterial Start: 05-27-2023 End: 10-13-2023 take 1 capsule by mouth four times daily dicloxacillin (Dynapen) 250 mg capsule TAKE 1 CAPSULE BY MOUTH FOUR TIMES A DAY 120 capsule 0 05/27/2023 10/13/2023 Discontinued (Therapy completed) docusate sodium 50 mg / sennosides, fci 8.6 mg oral tablet (1 source) Start: 11-29-2019 End: 11-30-2019 take 1 tablet by mouth twice daily 1 tablet, Oral, 2 times daily, First dose on Patrica 11/29/19 at 2100 NOT for abdominal surgery patients. &nb sp;Hold for loose stools. Do Not Crush or Chew if administering orally due to bitter taste. May be crushed if given via tube. doxycycline hyclate 100 mg oral capsule (2 sources) Tetracycline-class Drug Start: 06-09-2023 End: 10-13-2023 doxycycline (Vibramycin) 100 mg capsule Indications: Cellulitis of left lower extremity TAKE 1 CAPSULE (100 MG) BY MOUTH 2 TIMES A DAY FOR 7 DAYS. TAKE WITH AT LEAST 8 OUNCES (LARGE GLASS) OF WATER, DO NOT LIE DOWN FOR 30 MIN 14 capsule 1 06/09/2023 10/13/2023 Discontinued (Med List Cleanup) 0.4 ml enoxaparin sodium 100 mg/ml prefilled syringe (1 source) Low Molecular Weight Heparin Start: 11-29-2019 End: 11-30-2019 inject 40 mg by subcutaneous injection once daily 40 mg, Subcutaneous, Daily, First dose on Patrica 11/29/19 at 2300 Administer in abdomen unless otherwise directed by prescriber. Notify physician if patient refuses. Indication: VTE Prophylaxis 1 ml ePHEDrine sulfate 50 mg/ml injection (1 source) alpha-Adrenergic Agonist, beta-Adrenergic Agonist, Norepinephrine Releasing Agent Start: 05-19-2023 End: 05-19-2023 ePHEDrine injection 1 ml fentaNYL 0.05 mg/ml injection (1 source) Opioid Agonist Start: 05-19-2023 End: 05-19-2023 fentaNYL (SUBLIMAZE) injection fentaNYL (SUBLIMAZE) inj syringe 25 mcg (1 source) Start: 05-19-2023 End: 05-19-2023 25 mcg, Intravenous, Every 5 min PRN, Pain, Starting on Patrica 05/19/23 at 1151, For 4 doses, PACU (only) [] Do not give more than 100 mcg while in PACU. Haloperidol (1 source) Typical Antipsychotic Start: 05-19-2023 End: 05-19-2023 take 1 mg intravenously every twenty-four hours as needed 1 mg, Intravenous, Once as needed, Nausea or vomiting, Starting on Patrica 05/19/23 at 1151, For 1 dose, PACU (only) Administer if ondansetron (Zofran), promethazine (Phenergan), metoclopromide (REGLAN), prochlorperazine (COMPAZINE) & nbsp;ineffective/n ot ordered, or as directed by anesthesia, as needed for nausea/vomiting&nb sp;May cause QT interval prolongation. 1 ml hydrALAZINE hydrochloride 20 mg/ml injection (1 source) Arteriolar Vasodilator Start: 05-19-2023 End: 05-19-2023 5 mg, Intravenous, Every 15 min PRN, SBP greater than 160 or DBP greater than 90, Starting on Patrica 05/19/23 at 1151, For 4 doses, PACU (only) [] Do not give more than 20 mg total. [] Hold for HR greater than 100. [] Administer if labetalol or metoprolol ineffective at maximum dose or not ordered. 0.5 ml HYDROmorphone hydrochloride 1 mg/ml prefilled syringe (2 sources) Opioid Agonist Start: 05-19-2023 End: 05-19-2023 0.25 mg, Intravenous, Every 5 min PRN, Pain, Starting on Patrica 05/19/23 at 1151, For 6 doses, PACU (only) Give if fentanyl not effective or not ordered. Do not give more than 1.5 mg total. Start: 11-29-2019 End: 11-29-2019 0.5 mg, Intravenous, Every 5 min PRN, Pain, Starting Patrica 11/29/19 at 1751, For 6 doses, PACU (only) [] Give if fentanyl not effective or not ordered. [] Do not give more than 3 mg total. iohexol (OMNIPaque) 350 mg iodine/mL solution 70 mL (1 source) Start: 02-06-2025 End: 02-06-2025 70 mL, intravenous, Once in imaging, Starting on Tue02/06/25 at 1319, For 1 dose iohexol (OMNIPaque) 350 mg iodine/mL solution 73 mL (1 source) Start: 04-17-2025 End: 04-17-2025 73 mL, intravenous, Once in imaging, Starting on Tue04/17/25 at 1019, For 1 dose 4 ml labetalol hydrochloride 5 mg/ml cartridge (1 source) beta-Adrenergic Noemy Start: 05-19-2023 End: 05-19-2023 5 mg, Intravenous, Every 5 min PRN, SBP greater than 160 or DBP greater than 90, Starting on Patrica 05/19/23 at 1151, PACU (only) Do not give more than 20 mg total. Hold for HR less than 50. lidocaine 0.05 mg/mg medicated patch (20 sources) Antiarrhythmic, Amide Local Anesthetic Start: 12-21-2023 End: 07-30-2025 apply 1 dose transdermal route once daily, then apply 1 dose transdermal route every twelve hours lidocaine (Lidoderm) 5 % patch Place 1 (one) patch on the skin daily Remove & Discard patch within 12 hours or as directed by MD for 10 days . 10 patch 12/21/2023 07/30/2025 Discontinued (Therapy completed) Start: 05-19-2023 End: 05-19-2023 lidocaine 20 mg/mL (2 %) inj ection Start: 09-09-2022 End: 09-15-2022 lidocaine 4% topical film ; Apply topically to affected area once a day Quantity: 7 Refills: 0 Ordered: 09-Sep-2022 Xin Pereira Start: 09-Sep-2022 End: 15-Sep-2022 Generic Substitution Allowed Comments: For external use only.Remove old patch prior to applying a new patch. Comment on above: For external use onl y.Remove old patch prior to applying a new patch. magnesium hydroxide 80 mg/ml oral suspension (1 source) Start : 11-29 End: 11-30 take 2400 mg by mouth once daily as needed for constipation 2,400 mg (30 mL), Oral, Daily PRN, constipation, contipation, Starting [facility] 11/29/19 at 1931 methylPREDNISolone 4 MG Oral Tablet Therapy Pack (6 sources) Start : 12-27 methylPREDNISolone 4 MG Oral Tablet Therapy Pack Quantity: 21 Refills: 0 Ordered: 27-Dec-2022 DO Start : 27-Dec-2022 Active 24 hr metoprolol succinate 100 mg extended release oral tablet (1 source) beta-Adrenergic Noemy Start : 02-11 End: 02-11 metoprolol succinate (TOPROL-XL) 24 hr tablet 100 mg Start: 02-12-2020 End: 02-12-2020 metoprolol succinate (TOPROL -XL) 24 hr tablet 100 mg MiraLax PACK (6 sources) MiraLax PACK Joselito ntity: 0 Refills: 0 Ordered: 29-Dec-2022 DO Active naloxone (NARCAN) injection 0.1 mg (2 sources) Start: 05-19-2023 End: 05-19-2023 naloxone (NARCAN) injection 0.1 mg Start: 11-29-2019 End: 11-30-2019 naloxone (NARCAN) injection 0.1 mg nitrofurantoin, macrocrystals 100 mg oral capsule (20 sources) Nitrofuran Antibacterial Start: 02-23-2021 take 1 capsule by mouth once daily Nitrofurantoin Macrocrystal 100 MG Oral Capsule TAKE 1 CAPSULE EVERY 12 HOURS DAILY. Quantity: 14 Refills: 5 Ordered: 20-Aug-2022 Sancho Woodruff MD Start : 23-Feb-2021 Active Start: 02-23-2021 [facility] Nitrofurantoin Macrocrystal 100 MG Oral Capsule Take 1 capsule twice daily Quantity: 14 Refills: 1 Ordered: 17-Apr-2021 Alex Mohan MD Start : 23-Feb-2021 Active nitroglycerin 0.4 mg sublingual tablet (1 source) Nitrate Vasodilator Start: 02-12-2020 End: 02-12-2020 nitroGLYCERIN (NITROSTAT) SL tablet omega-3 fatty acids/fish oil (fish oil-omega-3 fatty acids) 300-1,000 mg capsule (20 sources) End: 04-11-2023 take 2 capsules by mouth once daily omega-3 fatty acids/fish oil (fish oil-omega-3 fatty acids) 300-1,000 mg capsule Take 2 (two) capsules by mouth daily . 0 04/11/2023 Discontinued take 2 capsules by mouth once da ghulam omega-3 fatty acids/fish oil (fish oil-omega-3 fatty acids) 300-1,000 mg capsule Take 2 (two) capsules by mouth daily . 0 Active take 1 capsule by mouth once josephine ly omega-3 fatty acids/fish oil (fish oil-omega-3 fatty acids) 300-1,000 mg capsule Take 2 g by mouth daily . 0 Active 2 ml ondansetron 2 mg/ml injection (2 sources) Serotonin-3 Receptor Antagonist Start: 05-19-2023 End: 05-19-2023 take 4 mg intravenously every twenty-four hours as needed for nausea and vomiting 4 mg, Intravenous, Once as needed, nausea, vomiting, Starting on Patrica 05/19/23 at 1151, For 1 dose, PACU (only) Administer first as needed for nausea/vomiting, or as directed by anesthesia Start: 05-19-2023 End: 05-19-2023 ondansetron (ZOFRAN) injecti on 1 ml phenylephrine hydrochloride 10 mg/ml injection (1 source) alpha-1 Adrenergic Agonist Start: 05-19-2023 End: 05-19-2023 phenylephrine (FRED-SYNEPHRINE) injection Plenvu 140 GM Oral Solution Reconstituted (4 sources) Start: 05-17-2022 Plenvu 140 GM Oral Solution Reconstituted use as directed, 1 kit Quantity: 1 Refills: 0 Ordered: 17-May-2022 Oksana Ocamop DO Start : 17-May-2022 Active prochlorperazine 5 mg/ml injectable solution (1 source) Phenothiazine Start: 05-19-2023 End: 05-19-2023 2.5 mg, Intravenous, Every 15 min PRN, nausea, Starting on Patrica 05/19/23 at 1151, For 2 doses, PACU (only) Administer if ondansetron (Zofran), promethazine (Phenergan), and Metocolopramide (Reglan) ineffective or not ordered, or as directed by anesthesia, as needed for nausea/vomiting Do not give more than 2 doses. 10 ml propofol 10 mg/ml injection (1 source) General Anesthetic Start: 05-19-2023 End: 05-19-2023 propofoL (DIPRIVAN) injection regadenoson (LEXISCAN) injection 0.4 mg (1 source) Start: 11-20-2019 End: 11-20-2019 regadenoson (LEXISCAN) injection 0.4 mg rocuronium bromide 10 mg/ml injectable solution (1 source) Nondepolarizing Neuromuscular Noemy Start: 05-19-2023 End: 05-19-2023 rocuronium (ZEMURON) injection 1000 ml sodium chloride 9 mg/ml injection (3 sources) Start: 05-19-2023 End: 05-19-2023 sodium chloride 0.9% (NS) Start: 11-29-2019 End: 11-30-2019 sodium chloride (PF) (NS) [facility] 5 mL 5 ml sugammadex 100 mg/ml injection (1 source) Start: 05-19-2023 End: 05-19-2023 sugammadex (BRIDION) injecti on technetium (Tc-99m) tetrofos min (Tc-MYOVIEW) injection 8-25 millicurie (2 sources) Start: 11-20-2019 End: 11-20-2019 technetium (Tc-99m) tetrofos min (Tc-MYOVIEW) injection 8-25 millicurie Start: 11-20-2019 End: 11-20-2019 technetium (Tc-99m) tetrofos min (Tc-MYOVIEW) injection 8-25 millicurie traMADol hydrochloride 50 mg oral tablet (20 sources) Opioid Agonist Start: 10-07-2023 End: 01-26-2026 take 1 tablet by mouth every six hours for pain, then take 6 tablets by mouth every twenty-four hours for pain traMADol (Ultram) 50 mg tablet Indications: DDD (degenerative disc disease), lumbosacral , Lumbar stenosis with neurogenic claudication , Closed fracture of sacrum, unspecified portion of sacrum, initial encounter ([facility]) Take 1 tablet (50 mg) by mouth every 6 hours if needed for severe pain (7 - 10). Up to 6 in 24 hours 120 tablet 06/03/2025 10:32 AM EDT 05/14/2025 07/30/2025 Discontinued (Reorder) Start: 06-20-2023 take 1 tablet by viktor th every six hours for pain traMADol (Ultram) 50 mg tablet Indications: Closed fracture of sacrum, unspecified portion of sacrum, initial encounter (CMS/HCC) Take 1 tablet (50 mg) by mouth every 6 hours if needed for severe pain (7 - 10). 90 tablet 0 06/20/2023 Active Start: 05-20-2023 take 1 tablet by viktor th every six hours for pain traMADol (Ultram) 50 mg tablet Indications: Closed fracture of sacrum, unspecified portion of sacrum, initial encounter (CMS/HCC) Take 1 tablet (50 mg) by mouth every 6 hours if needed for severe pain (7 - 10). 90 tablet 0 05/20/2023 Active Start: 05-19-2023 End: 05-19-2023 take 1 tablet by mouth every twenty-four hours as needed traMADol (ULTRAM) tablet 50 mg Start: 02-09-2023 End: 03-14-2023 take 1 tablet by mouth every six hours for pain traMADol (Ultram) 50 mg tablet Indications: Closed fracture of sacrum, unspecified portion of sacrum, initial encounter (CMS/[facility]) Take 1 tablet (50 mg) by mouth every 6 hours if needed for severe pain (7 - 10). 90 tablet 0 03/14/2023 Active Start: 02-05-2020 take 1 tablet by viktor th twice daily as needed traMADoL (ULTRAM) 50 mg tablet Take 1 (one) tablet (50 mg total) by mouth 2 (two) times a day as needed . 02/05/2020 Active Start: 08-14-2019 traMADol HCl - 50 MG Oral Tablet 1 TAB Q 6 HOIUR PRN PAIN Quantity: 90 Refills: 0 Ordered: 07-Dec-2022 Sancho Woodruff MD Start : 14-Aug-2019 Active Start: 05-25-2019 End: 11-30-2019 traMADol (ULTRAM) 50 mg tabl et tranexamic acid 650 mg oral tablet (1 source) Antifibrinolytic Agent Start: 11-29-2019 End: 11-29-2019 tranexamic acid (LYSTEDA) tablet 1,950 mg Start: 11-29-2019 End: 11-29-2019 tranexamic acid (LYSTEDA) ta blet 1,950 mg 1 ml triamcinolone acetonide 40 mg/ml injection (20 sources) Corticosteroid Start: 10-08-2024 End: 10-08-2024 40 mg, Intra-articular, Once as needed Procedure, Starting on Tue10/08/24 at 1502, For 1 dose Start: 10-13-2023 End: 10-13-2023 triamcinolone acetonide (FRANCES ALOG-40) injection 40 mg Start: 05-13-2022 End: 05-13-2022 triamcinolone acetonide (FRANCES ALOG-40) injection 40 mg Start: 04-28-2022 End: 04-29-2022 triamcinolone acetonide (FRANCES ALOG-40) injection 40 mg Start: 10-13-2021 End: 10-13-2021 triamcinolone acetonide (FRANCES ALOG-40) injection 40 mg Start: 06-25-2021 End: 06-25-2021 triamcinolone acetonide (FRANCES ALOG-40) injection 40 mg Start: 02-25-2021 End: 02-25-2021 triamcinolone acetonide (FRANCES ALOG-40) injection 40 mg Start: 08-04-2020 Triamcinolone Acetonide 0.1 % External Cream APPLY 2-3 TIMES DAILY TO AFFECTED AREA(S). Quantity: 1 Refills: 11 Ordered: 28-Aug-2021 Sancho Woodruff MD Start : 04-Aug-2020 Active Start: 08-04-2020 Triamcinolone Acetonide 0.1 % External Cream APPLY 2-3 TIMES DAILY TO AFFECTED AREA(S). Quantity: 1 Refills: 11 Ordered: 04-Aug-2020 Sancho Woodruff MD Start : 04-Aug-2020 Active Start: 08-04-2020 Triamcinolone Acetonide 0.1 % External Cream APPLY 2-3 TIMES DAILY TO AFFECTED AREA(S). Quantity: 1 Refills: 11 Sancho Woodruff MD Start : 04-Aug-2020 Active 454 GM Jar Start: 05-22-2020 End: 05-22-2020 triamcinolone acetonide (FRANCES ALOG-40) injection 40 mg Start: 02-22-2020 End: 02-22-2020 triamcinolone acetonide (FRANCES ALOG-40) injection 40 mg Start: 06-25-2019 End: 06-25-2019 triamcinolone acetonide (FRANCES ALOG-40) injection 20 mg Start: 06-25-2019 End: 06-25-2019 triamcinolone acetonide (FRANCES ALOG-40) injection 20 mg Start: 06-25-2019 End: 06-25-2019 triamcinolone acetonide (FRANCES ALOG-40) injection 20 mg Start: 06-25-2019 End: 06-25-2019 triamcinolone acetonide (FRANCES ALOG-40) injection 20 mg Start: 03-19-2019 End: 03-19-2019 triamcinolone acetonide (FRANCES ALOG-40) injection 20 mg Start: 03-19-2019 End: 03-19-2019 triamcinolone acetonide (FRANCES ALOG-40) injection 20 mg Start: 03-19-2019 End: 03-19-2019 triamcinolone acetonide (FRANCES ALOG-40) injection 20 mg Start: 03-19-2019 End: 03-19-2019 triamcinolone acetonide (FRANCES ALOG-40) injection 20 mg Start: 09-04-2018 End: 09-04-2018 triamcinolone acetonide (FRANCES ALOG-40) injection 20 mg Start: 09-04-2018 End: 09-04-2018 triamcinolone acetonide (FRANCES ALOG-40) injection 20 mg Start: 09-04-2018 End: 09-04-2018 triamcinolone acetonide (FRANCES ALOG-40) injection 20 mg Start: 09-04-2018 End: 09-04-2018 triamcinolone acetonide (FRANCES ALOG-40) injection 20 mg Start: 04-24-2018 End: 04-24-2018 triamcinolone acetonide (FRANCES ALOG-40) injection 20 mg Start: 04-24-2018 End: 04-24-2018 triamcinolone acetonide (FRANCES ALOG-40) injection 20 mg Start: 01-02-2018 End: 01-02-2018 triamcinolone acetonide (FRANCES ALOG-40) injection 20 mg Start: 01-02-2018 End: 01-02-2018 triamcinolone acetonide (FRANCES ALOG-40) injection 20 mg Start: 01-02-2018 End: 01-02-2018 triamcinolone acetonide (FRANCES ALOG-40) injection 20 mg Start: 01-02-2018 End: 01-02-2018 triamcinolone acetonide (FRANCES ALOG-40) injection 20 mg valACYclovir 1000 mg oral tablet (1 source) Herpesvirus Nucleoside Analog DNA Polymerase Inhibitor, Herpes Simplex Virus Nucleoside Analog DNA Polymerase Inhibitor, Herpes Zoster Virus Nucleoside Analog DNA Polymerase Inhibitor Start: 09-13-2022 take 1 tablet by mouth three times daily valACYclovir HCl - 1 GM Oral Tablet TAKE 1 TABLET 3 TIMES DAILY. Quantity: 21 Refills: 0 Ordered: 13-Sep-2022 Sancho Woodruff MD Start : 13-Sep-2022 Active Vit C-S.Jayiqd-Kohuwk-O rape Sd (Tart [place]oley) [id number] mg Capsule (3 sources) Start: 10-01-2021 End: 04-22-2025 Vit C-S.Foley-Celery- Grape Sd (Tart [place]oley) [id number] mg Capsule Discontinued 1 NMA PO DAILY October 01, 2021 1:00am April 22, 2025 3:17pm Problems Active Problems Problem Classification Problem Date Documented Da te Episodic/Chronic Acute posthemorrhagic anemia (1 source) Acute posthemorrhagic anemia; Translations: [Acute posthemorrhagic anemia] Onset: 3 Episodic Cancer of uterus (1 source) Personal history of malignant neoplasm of other parts of uterus; Translations: [Personal history of malignant neoplasm of oth prt uterus] Onset: 3 Episodic Cardiac dysrhythmias (20 sources) Atrial fibrillation; Translations: [Atrial fibrillation with rapid ventricular response] Onset: 5 Resolved: 0 05-19-2015 Chronic Chronic ulcer of skin (20 sources) Skin ulcer; Translations: [Non-pressure chronic ulcer of skin of other sites with unspecified severity] Onset: 5 01-01-2025 Chronic Deficiency and other anemia (5 sources) Iron deficiency anemia; Translations: [Iron deficiency anemia, unspecified] 07-07-2023 Episodic Disorders of lipid metabolism (20 sources) Hyperlipidemia; Translations: [Dyslipidemia] Onset: 1 Resolved: 3 11-19-2020 Chronic Comment on above: ON MED Diverticulosis and diverticulitis (20 sources) Diverticulitis of colon; Translations: [Diverticulitis of colon (without mention of hemorrhage)] Onset: 3 01-28-2023 Chronic Esophageal disorders (20 sources) Hanley's esophagus; Translations: [Hanley's esophagus] Onset: 3 01-28-2023 Chronic Comment on above: ON MED Essential hypertension (20 sources) Hypertensive disorder; Translations: [Essential hypertension] Onset: 5 05-19-2015 Chronic Fluid and electrolyte disorders (1 source) Hypokalemia; Translations: [Hypokalemia] Onset: 3 Episodic Gastrointestinal hemorrhage (2 sources) Gastrointestinal hemorrhage 01-17-2023 Comment on above: GASTROINTESTINAL HEM ORRHAGE, UNSPECIFIED Hepatitis (11 sources) Nonalcoholic steatohepatitis (MATTHEW); Translations: [Nonalcoholic steatohepatitis] Onset: 3 04-23-2025 Chronic Malaise and fatigue (1 source) Asthenia 01-17-2023 Episodic Comment on above: WEAKNESS Malignant neoplasm without specification of site (6 sources) Malignant neoplastic disease; Translations: [Malignant (primary) neoplasm, unspecified] Onset: 5 05-20-2025 Chronic Comment on above: UTERINE/HAD HYSTEREC GENO Open wounds of head; neck; and trunk (20 sources) Open wound; Translations: [Unspecified open wound of abdominal wall, unspecified quadrant without penetration into peritoneal cavity, initial encounter] Onset: 6 09-14-2016 Episodic Osteoarthritis (11 sources) Unspecified osteoarthritis, unspecified site; Translations: [Osteoarthritis of joint of left shoulder region] Onset: 3 05-30-2024 Chronic Other acquired deformities (3 sources) Spondylolysis; Translations: [Lumbar spondylolysis] Chronic Other acquired deformities (6 sources) Retrolisthesis; Translations: [Acquired spondylolisthesis] Episodic Other acquired deformities (2 sources) Spondylolisthesis, site unspecified; Translations: [Spondylolisthesis, site unspecified] Onset: 3 Episodic Other aftercare (1 source) manager intermediate (current) use of aspirin; Translations: [half-way (current) use of aspirin] Onset: 3 Episodic Other aftercare (1 source) manager intermediate (current) use of anticoagulants; Translations: [half-way (current) use of anticoagulants] Onset: 3 Episodic Other aftercare (2 sources) Encounter for other specified aftercare; Translations: [Encounter for other specified aftercare] Onset: 3 Episodic Other aftercare (2 sources) Long-term current use of aspirin; Translations: [half-way (current) use of aspirin] 03-14-2023 Episodic Other bone disease and musculoskeletal deformities (1 source) Costal chondritis; Translations: [Tietze's disease] 09-09-2022 Episodic Other connective tissue disease (20 sources) History of reverse prosthetic total arthroplasty of right shoulder; Translations: [Presence of right artificial shoulder joint] Onset: 0 11-29-2019 Chronic Other connective tissue disease (1 source) Presence of unspecified artificial hip joint; Translations: [Presence of unspecified artificial hip joint] Onset: 3 Chronic Other connective tissue disease (1 source) Presence of unspecified artificial knee joint; Translations: [Presence of unspecified artificial knee joint] Onset: 3 Chronic Other connective tissue disease (3 sources) Presence of unspecified artificial shoulder joint; Translations: [Presence of unspecified artificial shoulder joint] Onset: 3 Chronic Other connective tissue disease (1 source) Presence of right artificial hip joint; Translations: [Presence of right artificial hip joint] Onset: 3 Chronic Other connective tissue disease (1 source) Presence of right artificial shoulder joint; Translations: [Presence of right artificial shoulder joint] Onset: 3 Chronic Other connective tissue disease (1 source) Hip joint prosthesis present; Translations: [Presence of unspecified artificial hip joint] 02-28-2023 Chronic Other connective tissue disease (1 source) Artificial knee joint present; Translations: [Presence of unspecified artificial knee joint] 02-28-2023 Chronic Other connective tissue disease (4 sources) History of operative procedure on shoulder; Translations: [Presence of unspecified artificial shoulder joint] 05-20-2025 Chronic Comment on above: RIGHT Other connective tissue disease (2 sources) History of bilateral knee arthroplasty; Translations: [Presence of artificial knee joint, bilateral] 05-20-2025 Chronic Other connective tissue disease (2 sources) Presence of artificial knee joint, bilateral; Translations: [Presence of artificial knee joint, bilateral] Onset: 5 Chronic Other connective tissue disease (20 sources) Foot pain; Translations: [Pain in limb] Episodic Other connective tissue disease (4 sources) Trochanteric bursitis; Translations: [Trochanteric bursitis, left hip] Episodic Other connective tissue disease (1 source) Bursitis of right hip; Translations: [Other bursitis of hip, right hip] Episodic Other connective tissue disease (3 sources) Trochanteric bursitis of left hip; Translations: [Trochanteric bursitis, left hip] 02-28-2023 Episodic Other connective tissue disease (4 sources) Myofascial pain; Translations: [Myalgia, other site] Onset: 5 06-12-2025 Episodic Other connective tissue disease (2 sources) Myalgia, other site; Translations: [Myalgia, other site] Onset: 5 Episodic Other disorders of stomach and duodenum (3 sources) Indigestion; Translations: [Dyspepsia] Episodic Other eye disorders (15 sources) Hemorrhage of left vitreous body; Translations: [Vitreous hemorrhage, left eye] Onset: 5 01-01-2025 Chronic Other eye disorders (1 source) Vitreous hemorrhage, left eye; Translations: [Vitreous hemorrhage, left eye (Multi)] Onset: 5 Chronic Other eye disorders (4 sources) H/O: Bilateral cataract extraction; Translations: [Cataract extraction status, right eye] 05-20-2025 Episodic Other eye disorders (2 sources) Cataract extraction status, right eye; Translations: [Cataract extraction status, right eye] Onset: 5 Episodic Other eye disorders (2 sources) Cataract extraction status, left eye; Translations: [Cataract extraction status, left eye] Onset: 5 Episodic Other fractures (5 sources) Closed fracture sacrum; Translations: [Unspecified fracture of sacrum, sequela] 02-17-2023 Episodic Other fractures (6 sources) Unspecified fracture of sacrum, initial encounter for closed fracture; Translations: [Unsp fracture of sacrum, init encntr for closed fracture] Onset: 3 Episodic Other gastrointestinal disorders (1 source) Black feces; Translations: [Nonspecific abnormal findings in stool contents] 01-17-2023 Episodic Other gastrointestinal disorders (2 sources) Occult blood in stools; Translations: [Nonspecific abnormal findings in stool contents] Episodic Other gastrointestinal disorders (4 sources) H/O: abdominal hernia; Translations: [Personal history of other diseases of the digestive system] 05-20-2025 Episodic Other gastrointestinal disorders (4 sources) History of irritable bowel syndrome; Translations: [Personal history of other diseases of the digestive system] 05-20-2025 Episodic Comment on above: ON MED Other gastrointestinal disorders (4 sources) History of diverticulitis; Translations: [Personal history of other diseases of the digestive system] 05-20-2025 Episodic Other gastrointestinal disorders (6 sources) Personal history of other diseases of the digestive system; Translations: [History of small bowel obstruction] Onset: 5 05-20-2025 Episodic Comment on above: ADHESIONS REMOVED Other liver diseases (1 source) Cirrhosis - non-alcoholic; 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)] Chronic Other liver diseases (7 sources) Cirrhosis of liver; Translations: [Cirrhosis of liver without mention of alcohol] 01-01-2025 Chronic Comment on above: NON ALCHOLIC Other liver diseases (20 sources) Chronic liver disease; Translations: [Unspecified chronic liver disease without mention of alcohol] Onset: 6 01-10-2023 Chronic Other liver diseases (3 sources) Cirrhosis and chronic liver disease; Translations: [Unspecified cirrhosis of liver] Onset: 6 02-17-2023 Chronic Other liver diseases (5 sources) Unspecified cirrhosis of liver; Translations: [Unspecified cirrhosis of liver] Onset: 3 Chronic Other nervous system disorders (6 sources) Piriformis syndrome; Translations: [Lesion of sciatic nerve] Chronic Other nervous system disorders (20 sources) Right-sided piriformis syndrome; Translations: [Lesion of sciatic nerve, right lower limb] Onset: 3 01-28-2023 Chronic Other nervous system disorders (2 sources) Lesion of sciatic nerve, right lower limb; Translations: [Lesion of sciatic nerve, right lower limb] Onset: 3 Chronic Other nervous system disorders (1 source) Other chronic pain; Translations: [Other chronic pain] Onset: 3 Chronic Other nervous system disorders (1 source) Lesion of right sciatic nerve; Translations: [Lesion of sciatic nerve, right lower limb] 03-14-2023 Chronic Other nervous system disorders (5 sources) Chronic pain syndrome; Translations: [Chronic pain syndrome] Onset: 5 06-12-2025 Chronic Other nervous system disorders (1 source) Chronic pain syndrome; Translations: [Chronic pain syndrome] Onset: 5 Chronic Other non-traumatic joint disorders (4 sources) Shoulder pain; Translations: [Disorder of shoulder] Episodic Other non-traumatic joint disorders (3 sources) Disorder of shoulder; Translations: [Bursitis/tendonitis, shoulder] Episodic Other non-traumatic joint disorders (2 sources) Pain in left knee; Translations: [Pain in joint, lower leg] 03-12-2024 Episodic Other nutritional; endocrine; and metabolic disorders (20 sources) Obesity; Translations: [Obesity, unspecified] Chronic Other nutritional; endocrine; and metabolic disorders (1 source) Obesity, unspecified; Translations: [Obesity, unspecified] Onset: 3 Chronic Other nutritional; endocrine; and metabolic disorders (1 source) Body mass index (BMI) 33.0-33.9, adult; Translations: [Body mass index [BMI] 33.0-33.9, adult] Onset: 3 Chronic Other nutritional; endocrine; and metabolic disorders (1 source) Unexplained weight loss ; Translations: [Abnormal weight loss] 08-13-2024 Episodic Other skin disorders (1 source) [place] - lesion ; Translations: [Corns and callosities] Episodic Pathological fracture (2 sources) Pathological fracture, other site, subsequent encounter for fracture with routine healing; Translations: [Pathological fracture, other site, initial encounter for fracture] Onset: 3 Episodic Peripheral and visceral atherosclerosis (1 source) Peripheral vascular disease; Translations: [Peripheral vascular disease, unspecified] Chronic Residual codes; unclassified (1 source) Menopause present; Translations: [Menopause] Chronic Residual codes; unclassified (20 sources) Menopause present; Translations: [Symptomatic menopausal or female climacteric states] Episodic Residual codes; unclassified (7 sources) Swelling - edema - symptom; Translations: [Edema] Onset: 3 01-28-2023 Episodic Residual codes; unclassified (2 sources) Pain; Translations: [Pain, unspecified] Episodic Residual codes; unclassified (3 sources) Acquired absence of other specified parts of digestive tract; Translations: [Acquired absence of other specified parts of digestive tract] Onset: 3 Episodic Residual codes; unclassified (3 sources) Acquired absence of both cervix and uterus; Translations: [Acquired absence of both cervix and uterus] Onset: 3 Episodic Residual codes; unclassified (3 sources) Acquired absence of other organs; Translations: [Acquired absence of other organs] Onset: 2 Episodic Residual codes; unclassified (1 source) Disorder of digestive tract; Translations: [Acquired absence of other specified parts of digestive tract] 02-28-2023 Episodic Residual codes; unclassified (4 sources) Past history of procedure; Translations: [Other specified postprocedural states] 05-20-2025 Episodic Residual codes; unclassified (4 sources) History of colonoscopy; Translations: [Other specified postprocedural states] 05-20-2025 Episodic Residual codes; unclassified (2 sources) Other specified postprocedural states; Translations: [Other specified postprocedural states] Onset: 5 Episodic Retinal detachments; defects; vascular occlusion; and retinopathy (16 sources) Exudative age-related macular degeneration; Translations: [Exudative age-related macular degeneration, left eye, with active choroidal neovascularization] Onset: 5 01-01-2025 Chronic Skin and subcutaneous tissue infections (1 source) Cellulitis of left lower limb; Translations: [Cellulitis of left lower limb] 06-09-2023 Episodic Spondylosis; intervertebral disc disorders; other back problems (20 sources) Arthritis of spine; Translations: [Degeneration of lumbosacral intervertebral disc] Onset: 3 Chronic Spondylosis; intervertebral disc disorders; other back problems (20 sources) Chronic low back pain; Translations: [Lumbago] Onset: 3 Resolved: 3 02-14-2023 Episodic Sprains and strains (1 source) Strain of muscle, fascia and tendon of right hip, initial encounter; Translations: [Strain of muscle, fascia and tendon of right hip, init] Onset: 3 Episodic Substance-related disorders (4 sources) Other psychoactive substance dependence, uncomplicated; Translations: [Unspecified drug dependence, unspecified] Onset: 5 01-01-2025 Chronic Thyroid disorders (20 sources) Subclinical hypothyroidism; Translations: [Unspecified acquired hypothyroidism] Onset: 3 01-10-2023 Chronic Unclassified (20 sources) Patient encounter status; Translations: [Preop cardiovascular exam] Onset: 6 Resolved: 6 07-30-2016 Unclassified (3 sources) Rotator cuff arthropathy, right; Translations: [Rotator cuff arthropathy, right] Unclassified (20 sources) Open wound of abdomen; Translations: [Open wound of abdomen] Onset: 6 09-14-2016 Unclassified (19 sources) History of reverse prosthetic total arthroplasty of right shoulder; Translations: [S/P reverse total shoulder arthroplasty, right] Onset: 0 11-29-2019 Unclassified (2 sources) LEFT SIDE PAIN 12-01-2022 Comment on above: LEFT SIDE PAIN Unclassified (1 source) 3 MO CSA 08-03-2022 Comment on above: 3 MO CSA Unclassified (1 source) Costochondritis, acute 09-09-2022 Unclassified (1 source) FUV PIRAFORMIS INJ. R 01-06-2023 Comment on above: FUV PIRAFORMIS INJ. R Unclassified (1 source) Black stools 01-17-2023 Unclassified (1 source) Chronic atrial fibrillation, unspecified; Translations: [Chronic atrial fibrillation, unspecified] Onset: 3 Unclassified (1 source) Contact with and (suspected) exposure to COVID-19; Translations: [Contact with and (suspected) exposure to COVID-19] Onset: 3 Unclassified (1 source) Low back pain, unspecified; Translations: [Low back pain, unspecified] Onset: 3 Unclassified (1 source) Controlled drug dependence (Multi) 01-01-2025 Unclassified (2 sources) Dressing Change; Translations: [Dressing Change] Onset: 5 Unclassified (1 source) Other intervertebral disc degeneration, lumbosacral region without mention of lumbar back pain or lower extremity pain; Translations: [Other intervertebral disc degeneration, lumbosacral region without mention of lumbar back pain or lower extremity pain] Onset: 3 Unclassified (2 sources) Consult; Translations: [Consult] Onset: 5 Unclassified (2 sources) Wound Check; Translations: [Wound Check] Onset: 5 Unclassified (1 source) Other intervertebral disc degeneration, lumbosacral region with discogenic back pain only; Translations: [Other intervertebral disc degeneration, lumbosacral region with discogenic back pain only] Onset: 3 Past or Other Problems Problem Classification Problem Date Documented Da te Episodic/Chronic Abdominal pain (20 sources) Abdominal pain; Translations: [Unspecified abdominal pain] Onset: 7 04-26-2017 Episodic Allergic reactions (1 source) Allergy status to narcotic agent status; Translations: [Allergy status to narcotic agent] Onset: 2 Episodic Cancer of uterus (20 sources) Malignant neoplasm of uterus; Translations: [Malignant neoplasm of uterus, part unspecified] Onset: 3 Resolved: 4 02-17-2023 Chronic Coronary atherosclerosis and other heart disease (20 sources) 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[place] artery; Translations: [Atherosclerotic heart disease of [place] coronary artery without angina pectoris] Onset: 1 Resolved: 3 11-19-2020 Chronic Deficiency and other anemia (20 sources) Anemia; Translations: [Anemia, unspecified] Onset: 3 01-17-2023 Episodic Deficiency and other anemia (4 sources) Iron deficiency anemia, unspecified; Translations: [Iron deficiency anemia, unspecified] Onset: 3 Episodic Diseases of mouth; excluding dental (20 sources) Glossitis; Translations: [Glossitis] Onset: 3 01-28-2023 Episodic Gastrointestinal hemorrhage (20 sources) Gastrointestinal hemorrhage; Translations: [Hemorrhage of gastrointestinal tract, unspecified] Onset: 3 01-17-2023 Episodic Genitourinary symptoms and ill-defined conditions (20 sources) Dysuria; Translations: [Dysuria] Onset: 3 01-28-2023 Episodic Immunizations and screening for infectious disease (20 sources) Patient encounter status; Translations: [Other specified vaccination] Onset: 3 Resolved: 0 01-12-2023 Episodic Intestinal obstruction without hernia (20 sources) Small bowel obstruction; Translations: [Unspecified intestinal obstruction, unspecified as to partial versus complete obstruction] Onset: 6 Resolved: 3 08-02-2016 Episodic Medical examination/evaluation (1 source) Preoperative state; Translations: [Preop cardiovascular exam] Onset: 6 Resolved: 6 07-30-2016 Episodic Nausea and vomiting (20 sources) Nausea; Translations: [Nausea] Onset: 9 01-28-2023 Episodic Other acquired deformities (20 sources) Spondylolysis; Translations: [Acquired spondylolisthesis] Onset: 3 Resolved: 3 01-10-2023 Episodic Other acquired deformities (6 sources) Spondylolysis, lumbar region; Translations: [Spondylolysis, lumbar region] Onset: 3 Episodic Other aftercare (1 source) 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; Translations: [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] Onset: 2 Episodic Other and unspecified benign neoplasm (20 sources) Polyp of colon; Translations: [Benign neoplasm of colon] Onset: 3 01-28-2023 Episodic Other and unspecified benign neoplasm (1 source) Polyp of colon; Translations: [Polyp of colon] Onset: 2 Episodic Other and unspecified benign neoplasm (1 source) Personal history of colonic polyps; Translations: [Personal history of colonic polyps] Onset: 2 Episodic Other bone disease and musculoskeletal deformities (1 source) Chondrocostal junction syndrome [Tietze]; Translations: [Chondrocostal junction syndrome [Tietze]] Onset: 2 Episodic Other connective tissue disease (20 sources) Disorder of rotator cuff; Translations: [Unspecified disorder of synovium and tendon, left shoulder] Onset: 9 08-01-2019 Episodic Other connective tissue disease (20 sources) Disorder of skeletal muscle; Translations: [Other symptoms involving nervous and musculoskeletal systems] Onset: 3 01-28-2023 Episodic Other connective tissue disease (20 sources) Pain in right foot; Translations: [Pain in right foot] Onset: 3 01-28-2023 Episodic Other connective tissue disease (4 sources) Trochanteric bursitis, left hip; Translations: [Trochanteric bursitis, left hip] Onset: 3 Episodic Other connective tissue disease (1 source) Other symptoms and signs involving the musculoskeletal system; Translations: [Oth symptoms and signs involving the musculoskeletal system] Onset: 3 Episodic Other connective tissue disease (2 sources) Unspecified disorder of synovium and tendon, left shoulder; Translations: [Unspecified disorder of synovium and tendon, left shoulder] Onset: 9 Episodic Other diseases of kidney and ureters (20 sources) Hydroureter; Translations: [Hydroureter] Onset: 3 01-28-2023 Episodic Other diseases of kidney and ureters (1 source) Unspecified hydronephrosis; Translations: [Unspecified hydronephrosis] Onset: 2 Episodic Other fractures (20 sources) Fracture of sacrum; Translations: [Closed fracture of sacrum and coccyx without mention of spinal cord injury] Onset: 3 01-10-2023 Episodic Other gastrointestinal disorders (20 sources) Constipation; Translations: [Constipation, unspecified] Onset: 3 01-28-2023 Episodic Other injuries and conditions due to external causes (20 sources) Wound hemorrhage; Translations: [Other injury of unspecified body region, initial encounter] Onset: 6 08-04-2016 Episodic Other lower respiratory disease (1 source) Pleurodynia; Translations: [Pleurodynia] Onset: 2 Episodic Other nervous system disorders (20 sources) Abnormal gait; Translations: [Abnormality of gait] Onset: 3 01-28-2023 Episodic Other nervous system disorders (1 source) Unspecified abnormalities of gait and mobility; Translations: [Unspecified abnormalities of gait and mobility] Onset: 3 Episodic Other non-epithelial cancer of skin (20 sources) Squamous cell carcinoma of skin; Translations: [Squamous cell carcinoma of skin, site unspecified] Onset: 2 01-28-2023 Episodic Other nutritional; endocrine; and metabolic disorders (20 sources) Severe obesity; Translations: [Morbid (severe) obesity due to excess calories] Onset: 7 Resolved: 4 02-17-2023 Chronic Other nutritional; endocrine; and metabolic disorders (20 sources) Excessive weight loss; Translations: [Loss of weight] Onset: 3 01-28-2023 Episodic Other screening for suspected conditions (not mental disorders or infectious disease) (2 sources) Encounter for screening for malignant neoplasm of colon; Translations: [Encounter for screening for malignant neoplasm of colon] Onset: 2 Episodic Other skin disorders (20 sources) Pyogenic granuloma; Translations: [Pyogenic granuloma] Onset: 3 05-12-2023 Episodic Other upper respiratory infections (20 sources) Sore throat symptom; Translations: [Acute pharyngitis] Onset: 3 01-28-2023 Episodic Residual codes; unclassified (20 sources) Edema; Translations: [Edema] Onset: 3 01-28-2023 Episodic Residual codes; unclassified (3 sources) Family history of malignant neoplasm of digestive organs; Translations: [Family history of malignant neoplasm of digestive organs] Onset: 2 Episodic Syncope (20 sources) Syncope; Translations: [Syncope and collapse] Onset: 3 01-17-2023 Episodic Thyroid disorders (1 source) Disorder of thyroid, unspecified; Translations: [Disorder of thyroid, unspecified] Onset: 2 Episodic Unclassified (20 sources) Onset: 3 Resolved: 5 01-10-2023 Unclassified (1 source) Other intervertebral disc degeneration, lumbosacral region without mention of lumbar back pain or lower extremity pain; Translations: [Other intervertebral disc degeneration, lumbosacral region without mention of lumbar back pain or lower extremity pain] Onset: 5 Unclassified (1 source) Other intervertebral disc degeneration, lumbosacral region with discogenic back pain only; Translations: [Other intervertebral disc degeneration, lumbosacral region with discogenic back pain only] Onset: 5 Urinary tract infections (20 sources) Urinary tract infectious disease; Translations: [Recurrent urinary tract infection] Onset: 6 08-07-2016 Episodic NEGATED: Highlighted row has not occurred!Residual codes; unclassified (6 sources) Disease Episodic Results Test Name Value Interpretation Reference Range Facility CBC (H/H, RBC, INDICES, WBC, PLT)on 08-03-2025 Erythrocyte distribution width (RBC) [Ratio] 14.4 % Normal 11.0-15.0 [facility] Comment on above: Performed By: #### 9 1749, 4395 #### [facility] [address] [id number] Editor House Organ: Luis Armando Canseco MD Hematocrit (Bld) [Volume fraction] 40.2 % Normal 35.0-45.0 [facility] Comment on above: Performed By: #### 9 6437, 4513 #### [facility] [address] [place] [address] Editor House Organ: Luis Armando Canseco MD Hemoglobin (Bld) [Mass/Vol] 12.7 g/dL Normal 11.7-15.5 [facility] Comment on above: Performed By: #### 9 267, 175 #### [facility] [address], [address] [place] [address] Editor House Organ: Luis Armando Canseco MD MCH (RBC) [Entitic mass] 28.9 pg Normal 27.0-33.0 [facility] Comment on above: Performed By: #### 9 240, 175 #### [facility] [place] [address] Editor House Organ: Luis Armando Canseco MD MCHC (RBC) [Mass/Vol] 31.6 g/dL Low 32.0-36.[address] [facility] Comment on above: Result Comment: For adults, a slight decrease in the calculated MCHC value (in the range of 30 to 32 g/dL) is most likely not clinically significant; however, it should be interpreted with caution in correlation with other red cell parameters and the patient's clinical condition. Performed By: #### 9 211, 175 #### [facility] [place] [address] Editor House Organ: Luis Armando Canseco MD MCV (RBC) [Entitic vol] 91.6 fL Normal 80.0-100.0 [facility] Comment on above: Performed By: #### 9 092, 175 #### [facility] of [place] [address] Editor House Organ: Luis Armando Canseco MD Platelet mean volume (Bld) [Entitic vol] 11.3 fL Normal 7.5-12.5 [facility] Comment on above: Performed By: #### 9 001, 175 #### [facility] [place] [address] Editor House Organ: Luis Armando Canseco MD Platelets (Bld) [#/Vol] 178 10*3/uL Normal 140-400 [facility] Comment on above: Performed By: #### 9 4295, 1759 #### [facility] of [address], [address] [place] [address] Editor House Organ: Luis Armando Canseco MD RBC (Bld) [#/Vol] 4.39 10*6/uL Normal 3.80-5.10 [facility] Comment on above: Performed By: #### 9 627, 1759 #### [facility] of [address], [address] [place] [address] Editor House Organ: Luis Armando Canseco MD WBC (Bld) [#/Vol] 5.1 10*3/uL Normal 3.8-10.8 [facility] Comment on above: Performed By: #### 9 102, 175 #### [facility] of [address], [address] [place] [address] Editor House Organ: Luis Armando Canseco MD COMPREHENSIVE METABOLIC PANE L W/ANION GAPon 08-03-2025 Albumin [Mass/Vol] 3.4 g/dL Low 3.6-5.1 [facility] Comment on above: Order Comment: FASTI NG:YES FASTING: YES Performed By: #### 9 7876, 175 #### [facility] of [address], [address] [place] [address] Editor House Organ: Luis Armando Canseco MD ALP [Catalytic activity/Vol] 144 U/L Normal 37-153 [facility] Comment on above: Order Comment: FASTI NG:YES FASTING: YES Performed By: #### 9 4567, 175 #### [facility] of [address], [address] [place] [address] Editor House Organ: Luis Armando Canseco MD ALT [Catalytic activity/Vol] 6 U/L Normal 6-29 [facility] Comment on above: Order Comment: FASTI NG:YES FASTING: YES Performed By: #### 9 289, 175 #### [facility] of [address], [address] [place] [address] Editor House Organ: Luis Armando Canseco MD AST [Catalytic activity/Vol] 28 U/L Normal 10-35 [facility] Comment on above: Order Comment: FASTI NG:YES FASTING: YES Performed By: #### 9 2429, 1759 #### [facility] [address], [address] [place] [address] Editor House Organ: Luis Armando Canseco MD Bilirubin [Mass/Vol] 0.6 mg/dL Normal 0.2-1.2 [facility] Comment on above: Order Comment: FASTI NG:YES FASTING: YES Performed By: #### 9 105, 175 #### [facility] [address], [address] [place] [address] Editor House Organ: Luis Armando Canseco MD Calcium [Mass/Vol] 8.8 mg/dL Normal 8.6-10.4 [facility] Comment on above: Order Comment: FASTI NG:YES FASTING: YES Performed By: #### 9 498, 175 #### [facility] [address], [address] [place] [address] Editor House Organ: Luis rAmando Canseco MD Chloride [Moles/Vol] 103 mmol/L Normal 98-110 [facility] Comment on above: Order Comment: FASTI NG:YES FASTING: YES Performed By: #### 9 473, 175 #### [facility] [address], [address] [place] [address] Editor House Organ: Luis Armando Canseco MD CO2 [Moles/Vol] 29 mmol/L Normal 20-32 [facility] Comment on above: Order Comment: FASTI NG:YES FASTING: YES Performed By: #### 9 5439, 175 #### [facility] [address], [address] [place] [address] Editor House Organ: Luis Armando Canseco MD Creatinine [Mass/Vol] 0.58 mg/dL Low 0.60-0.[address] [facility] Comment on above: Order Comment: FASTI NG:YES FASTING: YES Performed By: #### 9 687, 175 #### [facility] [address], [address] [place] [address] Editor House Organ: Luis Armando Canseco MD ELECTROLYTE BALANCE 6 mmol/L (calc) Low 7-17 [facility] Comment on above: Order Comment: FASTI NG:YES FASTING: YES Performed By: #### 9 1805, 1759 #### [facility] [place] [address] Editor House Organ: Luis Armando Canseco MD GFR/1.73 sq M.predicted among non-blacks MDRD (S/P/Bld) [Vol rate/Area] 90 mL/min/{1.73_m2} Normal > OR = 60 [facility] Comment on above: Order Comment: FASTI NG:YES FASTING: YES Performed By: #### 9 0509, 1759 #### [facility] [place] [address] Editor House Organ: Luis Armando Canseco MD Glucose [Mass/Vol] 79 mg/dL Normal 65-99 [facility] Comment on above: Order Comment: FASTI NG:YES FASTING: YES Result Comment: Fasting reference interval Performed By: #### 9 4622, 1759 #### [facility] [place] [address] Editor House Organ: Luis Armando Canseco MD Potassium [Moles/Vol] 4.6 mmol/L Normal 3.5-5.[address] [facility] Comment on above: Order Comment: FASTI NG:YES FASTING: YES Performed By: #### 9 4484, 175 #### [facility] [place] [address] Editor House Organ: Luis Armando Canseco MD Protein [Mass/Vol] 6.6 g/dL Normal 6.1-8.1 [facility] Comment on above: Order Comment: FASTI NG:YES FASTING: YES Performed By: #### 9 9095, 1759 #### [facility] [place] [address] Editor House Organ: Luis Armando Canseco MD Sodium [Moles/Vol] 138 mmol/L Normal 135-146 [facility] Comment on above: Order Comment: FASTI NG:YES FASTING: YES Performed By: #### 9 6955, 1759 #### [facility] [address], [address] [place] [address] Editor House Organ: Luis Armando Canseco MD Urea nitrogen [Mass/Vol] 16 mg/dL Normal 7-25 [facility] Comment on above: Order Comment: FASTI NG:YES FASTING: YES Performed By: #### 9 2335, 1759 #### [facility] [address], [address] [place] [address] Editor House Organ: Luis Armando Canseco MD MR/PAT.Schuyler 07-31-2025 MR/PAT.SENA [facility] Medical Records Department [address] [place] [id number] PAT - Anesthesia 07/31/25 1057 MR#: [id number] Acct: [id number] Name: ALMA ECHEVERRIA Rep #: [id number] : 1940 84 From: Marcial Walker MD PCP: Dr. Sancho Woodruff MD Status:PRE [facility] Y Race: C Location: [facility] Pre-Assessment Diagnosis/Proposed Procedure Planned Operative Procedure(s): Excision sacral wound with wound vac placement Anesthesia History Anesthesia History - emerging solutions executive: Anesthesia History - emerging solutions executive Hx Hospitalization No 07/29/25 15:12 Any Problems With Anesthesia No 07/29/25 15:12 Cholinesterase deficiency No 07/29/25 15:12 You/Your Family Experience No 07/29/25 15:12 fever (hyperthermia) with Relationship Recent Exposure to Contagious No 10/08/21 11:07 Disease Does patient have nerve No 07/29/25 15:12 stimulator Patient instructed to have device shut off --Does patient have Pacemaker or ICD? When Was Last Pacemaker Check QUESTION #4 FULL TEXT: You/Your Family Experience fever (hyperthermia) with Anesthesia Last Oral Intake Last Oral intake: Last Oral Intake NPO since Meds taken in AM with sips of water? Meds patient instructed to take am of surgery PONV PONV - emerging solutions executive: PONV - emerging solutions executive Female Yes 07/29/25 15:12 HX of Motion Sickness No 07/29/25 15:12 HX of N/V After Surgery No 07/29/25 15:12 Non-Smoker Yes 07/29/25 15:12 Duration of Surgery greater No 07/29/25 15:12 than 60 minutes Number of Risk Factors 2 07/29/25 15:12 PONV Score Moderate Risk 07/29/25 15:12 Height Weight Height Weight: Anesthesia: Height Weight Height 4 ft 10 in 04/22/25 15:01 Respiratory Assessment Respiratory Assessment - emerging solutions executive: Respiratory Tract Infection Hx - emerging solutions executive Hx Respiratory Tract Infection No 07/29/25 15:12 STOP Sleep Apnea STOP Sleep Apnea - emerging solutions executive: STOP Sleep Apnea - emerging solutions executive Hx Hypertension No 07/29/25 15:12 Hx Sleep Apnea No 07/29/25 15:12 CPAP BIPAP Do you snore loudly (louder No 07/29/25 15:12 than talking or can be heard Do you often feel tired/ No 07/29/25 15:12 fatigued/ sleepy during daytime? Has anyone observed you stop No 07/29/25 15:12 breathing during sleep? STOP Results Negative 07/29/25 15:12 QUESTION #5 FULL TEXT : Do you snore loudly (louder than talking or can be heard through closed doors)? Tobacco Use History Tobacco Use History - emerging solutions executive: Tobacco Use History - emerging solutions executive Tobacco Use Smoking Status Never smoker 07/29/25 15:12 Hx Tobacco Use No 07/29/25 15:12 Years Smoking Packs Smoked per Day Smoking Cessation Date was within the last 15 years Hx Smoking Cessation Date Hx Smoking Cessation Counseling Hematologic Medial History Hematologic Hx - emerging solutions executive: Hematologic Medical Hx - video technician Hx of Blood Transfusion Yes 07/29/25 15:12 Hx of Transfusion in last 3 No 07/29/25 15:12 Months Date of Last Transfusion (if within last 3 months) Ever experience any problems No 07/29/25 15:12 with transfusion(s)? Specify any problems Hx of Preganancy in last 3 No 07/29/25 15:12 Months Nurse Filling Out Transfusion VCHRISTIN 07/29/25 15:12 Questions: Date: 07/29/25 07/29/25 15:12 Time: 15:16 07/29/25 15:12 Patient unable to answer at this time (ie. confused, unrespo /Reproduction History /Reproductive History - emerging solutions executive: /Reproductive Hx- emerging solutions executive Hx Now No 07/29/25 15:12 Gestational Age (in weeks): EDC: Hx Hx Para Hx Section SAB No 07/29/25 15:12 [facility] Medical History (Updated 07/29/25 @ 15:12 by Emmy Wei) Post-menopausal Thyroid disease Injury of head and neck Shortness of breath on exertion Cancer Arthritis Anemia Cirrhosis High cholesterol Back pain Difficulty swallowing History of hiatal hernia History of ulceration History of IBS History of diverticulitis Gastric reflux Non-smoker History of edema History of echocardiogram History of stress test Cardiology follow-up encounter History of atrial fibrillation Hx of small bowel obstruction Home Medications ???Medication ???Instructions ???Recorded ???Last Taken ???Type Immucore 1 tab PO/SL DAILY 10/01/21 Unknown History atorvastatin 10 mg tablet 10 mg PO QHS 10/01/21 Unknown Hist ory cholecalciferol (vitamin D3) 50 50 mcg PO DAILY 10/01/21 Unknown H istory mcg (2,000 unit) capsule (Vitamin D3) dabigatran etexilate 150 mg 150 mg PO BID 10/01/21 Unknown His tory (more content not included)... Normal [facility] ECG 12 lead (Clinic Performe d)on 07-30-2025 1 normal sinus rhyth m. 2 low voltage. 3 borderline first-degree AV block. [facility] Work Phone: [facility] Work Phone: Pelvis WITH IV Contraston Pelvis WITH IV Contrast [facility] Imaging Services [address] [place], [place] [id number] Pelvis WITH IV Contrast MR#: [id number] Acct: [id number] Name: ALMA ECHEVERRIA Rep #: [id number] : 1940 F 84 From: Chelsi Chi MD PCP: Dr. Sancho Woodruff MD Status: REG CLI Study: Pelvis WITH IV Contrast Date of Exam: 06/28/25 Exam# [id number] Ordering Dr: Sylvia Cool MD PROCEDURE: PELVIS WITH IV CONTRAST 06/28/2025 REASON FOR EXAM: SACRAL UCLER- R/O OSTEO TECHNIQUE: Procedure Code: CTPELW Modality: CT Procedure: PELVIS WITH IV CONTRAST CONTRAST: Isovue 370 VOLUME: 100 mL One or more dose reduction techniques were used (e.g., Automated exposure control, adjustment of the mA and/or kV according to patient size, use of iterative reconstruction technique). RADIATION DOSE SUMMARY: CTDlvol: 37.53 mGy DLP: 1260.27 mGycm COMPARISON: Unremarkable. FINDINGS: Bladder: Unremarkable. Reproductive Organs: Unremarkable. Bowel: Large amount of fecal load in the colon. No bowel wall thickening. No bowel obstruction. Appendix: No evidence of acute appendicitis. Lymph nodes: No lymphadenopathy. Vasculature: Atherosclerotic calcifications. No aneurysm. Peritoneum / Retroperitoneum: No free air or free fluid. Bones: Status post total right hip replacement. Status post surgical fixation of the right sacroiliac joint with metallic hardware. Arthritis changes of the left hip joint. No acute bony abnormalities. Soft tissues: Ulceration with soft tissue thickening posterior to the coccyx consistent with decubitus ulcers. No abscess. CT/Pelvis WITH IV Contrast IMPRESSION: Ulceration with soft tissue thickening posterior to the coccyx consistent with decubitus ulcers. No abscess. No acute osseous abnormalities. Reading Location: [facility] CC: Dr. Sancho Woodruff MD; Dr. Sylvia Cool MD Building Official: Signed Normal [facility] Surgical pathology reportOrd ered By: Genoveva Hoffman on 06-07-2025 Surgical pathology study [facility] Prealbumin [id number] Prealbumin [Mass/Vol] 11 mg/dL Normal 9-32 [facility] Comment on above: Result Comment: Perf ormed at: CB - [facility] [address] [id number] Child Life Therapist: Randall Silver PhD, Phone: [phone] Performed By: #### L 8300.8881, Z670.7598, B536.5429, J566.0641 #### [facility] [address] [place], [address] Absolute lymphocyte countOrd ered By: Sylvia Cool on 05-27-2025 Lymphocytes Auto (Unsp spec) [#/Vol] 2.15 10*3/uL 0.83-4.51 [facility] Absolute neutrophil countOrd ered By: Sylvia Cool on 05-27-2025 Neutrophils (Bld) [#/Vol] 2.4 10*3/uL 2.0-7.7 [facility] Anion gap in Serum or Plasma Ordered By: Sylvia Cool on 05-27-2025 Anion gap [Moles/Vol] 10 mmol/L 5-15 [facility] Automated lymphocyte count a s percentage of total leukocytesOrdered By: Sylvia Cool on 05-27-2025 Lymphocytes/100 WBC Auto (Unsp spec) 41.0 % - [facility] BUN/creatinine ratioOrdered By: Sylvia Cool on 05-27-2025 Urea nitrogen/Creatinine [Mass ratio] 24.7 mg/mg High 10-20 [facility] Basophil percentageOrdered B y: Sylvia Cool on 05-27-2025 Basophils/100 WBC (Bld) 0.8 % 0-1 [facility] Bilirubin, totalOrdered By: Sylvia Cool on 05-27-2025 Bilirubin [Mass/Vol] 0.71 mg/dL 0.00-1.30 [facility] CBC W/Diff, Automatedon 05-10 Absolute Lymph 2.15 X10 3/uL Normal 0.83-4.51 [facility] Comment on above: Performed By: #### L 3300.6400, L100.0100, L501.9985, L500.4050 #### [facility] [address] [place], [address] Absolute Neut 2.4 X10 3/uL Normal 2.0-7.7 [facility] Comment on above: Performed By: #### L 3300.6400, L100.0100, L501.9985, L500.4050 #### [facility] [address] [place], [address] Basophils/100 WBC (Bld) 0.8 % Normal 0-1 [facility] Comment on above: Performed By: #### L 3300.6400, L100.0100, L501.9985, L500.4050 #### [facility] [address] [place], [address] Eosinophils/100 WBC (Bld) 1.1 % Normal 0-5 [facility] Comment on above: Performed By: #### L 3300.6400, L100.0100, L501.9985, L500.4050 #### [facility] [address] [place], [address] Erythrocyte distribution width (RBC) [Ratio] 15.4 % High 11.6-14.6 [facility] Comment on above: Performed By: #### L 3300.6400, L100.0100, L501.9985, L500.4050 #### [facility] [address] [place], [address] Hematocrit (Bld) [Volume fraction] 37.4 % Normal 37-47 [facility] Comment on above: Performed By: #### L 3300.6400, L100.0100, L501.9985, L500.4050 #### [facility] [address] [place], [address] Hemoglobin (Bld) [Mass/Vol] 12.2 g/dL Normal 12.0-15.0 [facility] Comment on above: Performed By: #### L 3300.6400, L100.0100, L501.9985, L500.4050 #### [facility] [address] [place], [address] IG% 0.200 Normal 0.0-0.9 [facility] Comment on above: Result Comment: IG% - Immature Granulocytes (promyelocytes, myelocytes and metamyelocytes) > 1% indicates that a LEFT SHIFT is Present. Performed By: #### L 3300.6400, L100.0100, L501.9985, L500.4050 #### [facility] [address] [place], [address] Lymphocytes/100 WBC (Bld) 41.0 % Normal 19-41 [facility] Comment on above: Performed By: #### L 3300.6400, L100.0100, L501.9985, L500.4050 #### [facility] [address] [place], [address] MCH (RBC) [Entitic mass] 29.8 pg Normal 27.0-32.0 [facility] Comment on above: Performed By: #### L 3300.6400, L100.0100, L501.9985, L500.4050 #### [facility] [address] [place], [address] MCHC (RBC) [Mass/Vol] 32.6 g/dL Normal 32-36 [facility] Comment on above: Performed By: #### L 3300.6400, L100.0100, L501.9985, L500.4050 #### [facility] [address] [place], [address] MCV (RBC) [Entitic vol] 91.4 fL Normal 81-99 [facility] Comment on above: Performed By: #### L 3300.6400, L100.0100, L501.9985, L500.4050 #### [facility] [address] [place], [address] Monocytes/100 WBC (Bld) 10.5 % High 0-10 [facility] Comment on above: Performed By: #### L 3300.6400, L100.0100, L501.9985, L500.4050 #### [facility] [address] [place], [address] Neutrophils/100 WBC (Bld) 46.4 % Low 47-70 [facility] Comment on above: Performed By: #### L 3300.6400, L100.0100, L501.9985, L500.4050 #### [facility] [address] [place], [address] Nucleated RBC (Bld) [#/Vol] 0 10*3/uL Normal 0-5 [facility] Comment on above: Performed By: #### L 3300.6400, L100.0100, L501.9985, L500.4050 #### [facility] [address] [place], [address] Platelet mean volume (Bld) [Entitic vol] 10.8 fL Normal 6.2-12.0 [facility] Comment on above: Performed By: #### L 3300.6400, L100.0100, L501.9985, L500.4050 #### [facility] [address] [place], [address] Platelets (Bld) [#/Vol] 161 10*3/uL Normal 150-450 [facility] Comment on above: Performed By: #### L 3300.6400, L100.0100, L501.9985, L500.4050 #### [facility] [address] [place], [address] RBC (Bld) [#/Vol] 4.09 10*6/uL Low 4.2-5.4 [facility] Comment on above: Performed By: #### L 3300.6400, L100.0100, L501.9985, L500.4050 #### [facility] [address] [place], [address] RDW SD 51.8 fl High 35.1-43.9 [facility] Comment on above: Performed By: #### L 3300.6400, L100.0100, L501.9985, L500.4050 #### [facility] [address] [place], [address] WBC (Bld) [#/Vol] 5.3 10*3/uL Normal 4.4-11.0 [facility] Comment on above: Performed By: #### L 3300.6400, L100.0100, L501.9985, L500.4050 #### [facility] [address] [place], [address] Carbon dioxide, total [Moles /volume] in Central venous bloodOrdered By: Sylvia Cool on 05-27-2025 CO2 [Moles/Vol] 24.3 mmol/L 21.0-32.0 [facility] Chloride assayOrdered By: Jazz Cool on 05-27-2025 Chloride [Moles/Vol] 103 mmol/L 98-108 [facility] Comprehensive Metabolic Prof ilon 05-27-2025 Albumin [Mass/Vol] 3.6 g/dL Normal 3.4-4.8 [facility] Comment on above: Performed By: #### L 3300.6400, L100.0100, L501.9985, L500.4050 #### [facility] [address] [place], [address] Albumin/Globulin [Mass ratio] 1.2 {ratio} Normal 0.9-2.4 [facility] Comment on above: Performed By: #### L 3300.6400, L100.0100, L501.9985, L500.4050 #### [facility] [address] [place], [address] ALK PHOS 159 U/L High 35-104 [facility] Comment on above: Performed By: #### L 3300.6400, L100.0100, L501.9985, L500.4050 #### [facility] [address] [place], [address] ALT [Catalytic activity/Vol] 8 U/L Normal <=34 [facility] Comment on above: Performed By: #### L 3300.6400, L100.0100, L501.9985, L500.4050 #### [facility] [address] [place], [address] AST [Catalytic activity/Vol] 37 U/L High <=31 [facility] Comment on above: Performed By: #### L 3300.6400, L100.0100, L501.9985, L500.4050 #### [facility] [address] [place], [address] Bilirubin [Mass/Vol] 0.71 mg/dL Normal 0.00-1.30 [facility] Comment on above: Performed By: #### L 3300.6400, L100.0100, L501.9985, L500.4050 #### [facility] [address] [place], [address] BUN/CRE 24.7 RATIO High 10-20 [facility] Comment on above: Performed By: #### L 3300.6400, L100.0100, L501.9985, L500.4050 #### [facility] [address] [place], [address] Calcium [Mass/Vol] 8.8 mg/dL Normal 7.6-11.0 [facility] Comment on above: Performed By: #### L 3300.6400, L100.0100, L501.9985, L500.4050 #### [facility] [address] [place], [address] Chloride [Moles/Vol] 103 mmol/L Normal 98-108 [facility] Comment on above: Performed By: #### L 3300.6400, L100.0100, L501.9985, L500.4050 #### [facility] [address] [place], [address] CO2 [Moles/Vol] 24.3 mmol/L Normal 21.0-32.0 [facility] Comment on above: Performed By: #### L 3300.6400, L100.0100, L501.9985, L500.4050 #### [facility] [address] [place], [address] Creatinine [Mass/Vol] 0.64 mg/dL Low 0.70-1.20 [facility] Comment on above: Performed By: #### L 3300.6400, L100.0100, L501.9985, L500.4050 #### [facility] [address] [place], [address] GAP 10 Normal 5-15 [facility] Comment on above: Performed By: #### L 3300.6400, L100.0100, L501.9985, L500.4050 #### [facility] [address] [place], [address] GFR/1.73 sq M.predicted among non-blacks MDRD (S/P/Bld) [Vol rate/Area] 88 mL/min/{1.73_m2} Normal >60 [facility] Comment on above: Result Comment: mL/m in/1.73m2 CKD-EPI Creatinine Equation (2020) Performed By: #### L 3300.6400, L100.0100, L501.9985, L500.4050 #### [facility] [address] [place], [address] Globulin (S) [Mass/Vol] 3.0 g/dL Normal 2.2-4.2 [facility] Comment on above: Performed By: #### L 3300.6400, L100.0100, L501.9985, L500.4050 #### [facility] [address] [place], [address] Glucose [Mass/Vol] 86 mg/dL Normal 70-99 [facility] Comment on above: Performed By: #### L 3300.6400, L100.0100, L501.9985, L500.4050 #### [facility] [address] [place], [address] Potassium [Moles/Vol] 4.5 mmol/L Normal 3.3-5.1 [facility] Comment on above: Performed By: #### L 3300.6400, L100.0100, L501.9985, L500.4050 #### [facility] [address] [place], [address] Sodium [Moles/Vol] 138 mmol/L Normal 133-145 [facility] Comment on above: Performed By: #### L 3300.6400, L100.0100, L501.9985, L500.4050 #### [facility] [address] [place], [address] T PROT 6.6 g/dL Normal 5.9-8.4 [facility] Comment on above: Performed By: #### L 3300.6400, L100.0100, L501.9985, L500.4050 #### [facility] [address] [place], [address] Urea nitrogen [Mass/Vol] 16 mg/dL Normal 4-19 [facility] Comment on above: Performed By: #### L 3300.6400, L100.0100, L501.9985, L500.4050 #### [facility] [address] [place], [address] Eosinophil percentageOrdered By: Sylvia Cool on 05-27-2025 Eosinophils/100 WBC (Bld) 1.1 % 0-5 [facility] Erythrocyte distribution wid th ratioOrdered By: Sylvia Cool on 05-27-2025 Erythrocyte distribution width (RBC) [Ratio] 15.4 % High 11.6-14.6 [facility] Erythrocyte distribution wid th standard deviationOrdered By: Sylvia Cool on 05-27-2025 Erythrocyte distribution width (RBC) [Ratio] 51.8 fl High 35.1-43.9 [facility] Glomerular filtration rate ( GFR) estimation/1.73 sq m using serum, plasma, or whole bOrdered By: Sylvia Cool on 05-27-2025 GFR/1.73 sq M.predicted among non-blacks MDRD (S/P/Bld) [Vol rate/Area] 88 mL/min/{1.73_m2} >60 [facility] Comment on above: mL/min/1.73m2 CKD-EP I Creatinine Equation (2020) Hematocrit Auto (Bld) [Volum e fraction]Ordered By: Sylvia Cool on 05-27-2025 Hematocrit (Bld) [Volume fraction] 37.4 % 37-47 [facility] Hemoglobin A1con 05-27-2025 HbA1c (Bld) [Mass fraction] 5.2 % Normal <=5.6 [facility] Comment on above: Result Comment: Norm al < 5.7 % Prediabetic 5.7 - 6.4 % Diabetic >or= 6.5 % Please note range changes. Performed By: #### L 3300.6400, L100.0100, L501.9985, L500.4050 #### [facility] [address] [place], [address] Hemoglobin A1c percentageOrd ered By: Sylvia Cool on 05-27-2025 HbA1c (Bld) [Mass fraction] 5.2 % <5.7 [facility] Comment on above: Normal < 5.7 % Predi abetic 5.7 - 6.4 % Diabetic >or= 6.5 % Please note range changes. Hemoglobin measurementOrdere d By: Sylvia Cool on 05-27-2025 Hemoglobin (Bld) [Mass/Vol] 12.2 g/dL 12.0-15.0 [facility] Immature granulocytes/100 WB C Auto (Bld)Ordered By: Sylvia Cool on 05-27-2025 Immature granulocytes/100 WBC (Bld) 0.200 % 0.0-0.9 [facility] Comment on above: IG% - Immature Granu locytes (promyelocytes, myelocytes and metamyelocytes) > 1% indicates that a LEFT SHIFT is Present. Laboratory - Chemistry and C hemistry - challengeOrdered By: Sylvia Cool on 05-27-2025 AST [Catalytic activity/Vol] 37 U/L High <32 [facility] MCV (mean corpuscular volume ) determinationOrdered By: Sylvia Cool on 05-27-2025 MCV (RBC) [Entitic vol] 91.4 fL 81-99 [facility] Mean corpuscular hemoglobin (MCH) determinationOrdered By: Sylvia Cool on 05-27-2025 MCH (RBC) [Entitic mass] 29.8 pg 27.0-32.0 [facility] Mean corpuscular hemoglobin concentration (MCHC) determinationOrdered By: Sylvia Cool on 05-27-2025 MCHC (RBC) [Mass/Vol] 32.6 g/dL 32-36 [facility] Mean platelet volume determi nationOrdered By: Sylvia Cool on 05-27-2025 Platelet mean volume (Bld) [Entitic vol] 10.8 fL 6.2-12.0 [facility] Monocyte percentageOrdered B y: Sylvia Cool on 05-27-2025 Monocytes/100 WBC (Bld) 10.5 % High 0-10 [facility] Neutrophil percentageOrdered By: Sylvia Cool on 05-27-2025 Neutrophils/100 WBC (Bld) 46.4 % Low 47-70 [facility] Nucleated red blood cell per centageOrdered By: Sylvia Cool on 05-27-2025 Nucleated RBC/100 WBC (Bld) [Ratio] 0 % 0-5 [facility] Platelet countOrdered By: Jazz Cool on 05-27-2025 Platelets (Bld) [#/Vol] 161 10*3/uL 150-450 [facility] Potassium measurement (mass/ volume)Ordered By: Sylvia Cool on 05-27-2025 Potassium (Unsp spec) [Mass/Vol] 4.5 mmol/L 3.3-5.1 [facility] RBC Auto (Bld) [#/Vol]Ordere d By: Sylvia Cool on 05-27-2025 RBC (Bld) [#/Vol] 4.09 10*6/uL Low 4.2-5.4 [facility] Serum creatinine measurement (mass/volume)Ordered By: Sylvia Cool on 05-27-2025 Creatinine [Mass/Vol] 0.64 mg/dL Low 0.70-1.20 [facility] Serum globulin measurementOr dered By: Sylvia Cool on 05-27-2025 Globulin (S) [Mass/Vol] 3.0 g/dL 2.2-4.2 [facility] Serum glucose measurement (m ass/volume)Ordered By: Sylvia Cool on 05-27-2025 Glucose [Mass/Vol] 86 mg/dL 70-99 [facility] Serum or plasma alanine jeffrey otransferase (ALT) measurementOrdered By: Sylvia Cool on 05-27-2025 ALT [Catalytic activity/Vol] 8 U/L <35 [facility] Serum or plasma albumin edwin urement (mass/volume)Ordered By: Sylvia Cool on 05-27-2025 Albumin [Mass/Vol] 3.6 g/dL 3.4-4.8 [facility] Serum or plasma albumin/glob ulin mass ratioOrdered By: Sylvia Cool on 05-27-2025 Albumin/Globulin [Mass ratio] 1.2 {ratio} 0.9-2.4 [facility] Serum or plasma alkaline cheli sphatase measurementOrdered By: Sylvia Cool on 05-27-2025 ALP [Catalytic activity/Vol] 159 U/L High 35-104 [facility] Serum or plasma calcium edwin urement (mass/volume)Ordered By: Sylvia Cool on 05-27-2025 Calcium [Mass/Vol] 8.8 mg/dL 7.6-11.0 [facility] Serum or plasma urea nitroge n measurement (mass/volume)Ordered By: Sylvia Cool on 05-27-2025 Urea nitrogen [Mass/Vol] 16 mg/dL 4-19 [facility] Serum prealbumin measurement by immunoassayOrdered By: Sylvia Cool on 05-27-2025 Prealbumin [Mass/Vol] 11 mg/dL 9-32 [facility] Comment on above: Performed at: [address] [id number] Director: Randall Silver PhD, Phone: [phone] Sodium levelOrdered By: Jean Cool on 05-27-2025 Sodium [Moles/Vol] 138 mmol/L 133-145 [facility] Surgery Specimen Level Rachel 05-27-2025 Surgery Specimen Level IV Patient Age/Sex Location Account Attending Physician ALMA ECHEVERRIA 84/F [id number] Dr. Sylvia Cool MD Specimen: [id number] Received: 05/27/25 Status: MOSHE Lopez Num: [id number] Spec Type: Lesion Subm Dr: Dr. Sylvia Cool MD HEADER OPERATION: Punch biopsy PRE-OP DIAGNOSIS: Rule out malignancy TISSUE SUBMITTED: A- Coccyx biopsy MICROSCOPIC DIAGNOSIS A. Skin, coccyx, punch biopsy: - Cutaneous ulcer with active chronic inflammation. - Reactive epidermal changes. MICROSCOPIC DESCRIPTION Slides are reviewed. GROSS DESCRIPTION A. Received in formalin labeled with the patient's name and date of is a 0.5 x 0.4 cm galvez-white skin punch excised to a depth of 0.5 cm. The resection margin is inked blue. The specimen is bisected and entirely submitted in 1 cassette. [place] 05/28/2025 [facility]:[id number] Patient Age/Sex Location Account Attending Physician ALMA ECHEVERRIA 84/F [id number] Dr. Sylvia Cool MD Signed (signature on file) Dr. Genoveva Hoffman MD 06/07/25 1606 Normal [facility] Comment on above: Performed By: #### P SUIV #### [facility] [address] [place], [address] Total proteinOrdered By: Patrice Cool on 05-27-2025 Protein [Mass/Vol] 6.6 g/dL 5.9-8.4 [facility] White blood cell (WBC) count Ordered By: Sylvia Cool on 05-27-2025 WBC (Bld) [#/Vol] 5.3 10*3/uL 4.4-11.0 [facility] History AND Physic alyson 05-20-2025 Wound Ctr History & Physical [facility] [address] [place] [address] H P Exam - Wound Care 05/20/25 1620 MR#: [id number] Acct: [id number] Name: ALMA ECHEVERRIA Rep #: [id number] : 1940 84 From: Vineet Singleton MD PCP: Dr. Sancho Woodruff MD Status:REG R Location: History of Present Illness Date of Service: 05/20/25 Chief Complaint: Sacral pressure ulceration History of Wound: The patient is seen today on behalf of the patient's regular Wound Center provider, Dr. Sylvia Cool, and whose medical history has been reviewed, as documented below: The patient is an 84-year-old female who presented with a sacral pressure ulcer that had been gradually worsening over a period of six months. The ulcer developed initially as a sensitive spot that evolved into a cavity without significant visual symptoms of hemorrhage or discharge. The management had involved Medihoney applications and packing. The patient's medical history is significant for atrial fibrillation, managed with Apixaban, with implications for future surgical interventions due to bleeding risks. She has a history of lumbar spinal fusion with implanted metal hardware. Historical records indicate maintained integrity of sacral spinal hardware, mitigating concerns regarding hardware-related complications. Dietary habits and past management strategies reflect an understanding of nutritional needs consistent with ongoing medical recommendations. The patient believes her pressure ulcer started as a small abscess that turned into a wound. She puts significant pressure on it daily while leaning back in her recliner at home. The patient is not a smoker. She is not diabetic. [facility] Medical History Cancer Arthritis Anemia Cirrhosis High cholesterol Back pain Difficulty swallowing History of hiatal hernia History of ulceration History of IBS History of diverticulitis Gastric reflux Non-smoker History of edema History of echocardiogram History of stress test Cardiology follow-up encounter History of atrial fibrillation Hx of small bowel obstruction Home Medications ???Medication ???Instructions ???Recorded ???Last Taken ???Type Immucore 1 tab PO/SL DAILY 10/01/21 Unknown History atorvastatin 10 mg tablet 10 mg PO QHS 10/01/21 Unknown Hist ory cholecalciferol (vitamin D3) 50 50 mcg PO DAILY 10/01/21 Unknown H istory mcg (2,000 unit) capsule (Vitamin D3) dabigatran etexilate 150 mg 150 mg PO BID 10/01/21 Unknown His tory capsule (Pradaxa) dexlansoprazole 60 mg 60 mg PO DAILY 10/01/21 10/08/21 H istory capsule,biphase delayed release (Dexilant) diltiazem HCl 240 mg 240 mg PO DAILY 10/01/21 10/08/21 History capsule,extended release 24 hr furosemide 40 mg tablet 40 mg PO BID PRN Edema 10/01/21 Un known History lubiprostone 8 mcg capsule 8 mcg PO BID 10/01/21 Unknown Hist ory (Amitiza) milk thistle 150 mg capsule 300 mg PO DAILY 10/01/21 Unknown H istory multivitamin 1 cap PO DAILY 10/01/21 Unknown Hi story omega-3 fatty acids-vitamin E 1 cap PO DAILY 10/01/21 Unknown Hi story 1,000 mg capsule polyethylene glycol 3350 17 gram 17 g PO DAILY 10/01/21 Unknown His tory oral powder packet (Miralax) tramadol 50 mg disintegrating 50 mg PO PRN PRN Pain 10/01/21 Unk nown History tablet apixaban 5 mg tablet (Eliquis) 5 mg PO BID 04/22/25 Unknown Histo ry apixaban 5 mg tablet (Eliquis) 5 mg PO BID 04/22/25 Unknown Histo ry levothyroxine 100 mcg tablet 100 mcg PO DAILY 04/22/25 Unknown History naloxone 4 mg/actuation nasal spray intranasal 04/22/25 Unknown His tory tramadol 50 mg tablet 50 mg PO Q6H PRN PRN pain 04/22/25 Unknown History Allergy/AdvReac Type Severity Reaction Status Date / Time adhesive tape AdvReac Rash Verified 04/22/25 15:15 NSAIDS (Non-Steroidal AdvReac Nausea Verified 04/22/25 15:15 Anti-Inflamma Surgical History History of esophagogastroduodenosco py (EGD) Hx of colonoscopy Hx of total shoulder replacement History of bilateral knee arthroplasty Hx of bilateral cataract extraction History of laparoscopic cholecystectomy Hx of laparoscopy Hx of hysterectomy, total Hx of appendectomy Hx of tonsillectomy Social History Smoking Status: Never smoker Vital Signs Vital Signs Vital Signs: 05/20/25 13:41 Temperature 96.7 F L Temperature Source Temporal Respiratory Rate 18 Blood Pressure 137/97 H Blood Pressure Mean 110 Blood Pressure Source Monitor Blood Pressure Position Sitting Blood Pressure Location Right Arm Oxygen Delivery Method Room Air Physical Exam Cons (more content not included)... Normal [facility] History AND Physic alyson 04-23-2025 Wound Ctr History & Physical [facility] [address] [place] [address] H P Exam - Wound Care 04/23/25 0729 MR#: [id number] Acct: [id number] Name: ALMA ECHEVERRIA Rep #: [id number] : 1940 84 From: Sylvia Cool MD PCP: Dr. Sancho Woodruff MD Status:REG RCR Location: ADDENDUM by Dr. Sylvia Cool MD on 04/24/25 at 1527 Addendum Patient is ambulatory. She has feeling. A group 2 mattress is therefore less important, but the wound VAC would greatly help. 04/24/25 1527 Cosigner Signature (if applicable): cc: * Signed History of Present Illness Date of Service: 04/22/25 History of Wound: The patient is an 84-year-old female presenting with a sacral pressure ulcer that has been gradually worsening over a period of six months. The ulcer developed initially as a sensitive spot that evolved into a cavity without significant visual symptoms of hemorrhage or discharge. The management thus far has involved Medihoney applications and packing, though decreased cavity size now makes packing challenging. Additionally, rotations during sleep due to discomfort underscore its sensitivity. She possesses a medical history significant for atrial fibrillation, managed currently with Apixaban, with implications for future surgical interventions due to bleeding risks. Historical records indicate maintained integrity of sacral spinal hardware, mitigating concerns regarding hardware-related complications. Dietary habits and past management strategies reflect an understanding of nutritional needs consistent with ongoing medical recommendations. She believes it started as a small abscess that turned into a wound. She puts significant pressure on it daily while leaning back in her recliner at home. ROS: - Skin: Reports sacral pressure ulcer; Denies active infection symptoms such as fever or purulent discharge. - Cardiovascular: Reports history of atrial fibrillation; Denies current chest pain or dyspnea. - Gastrointestinal: Denies recent significant unintentional weight change; Past diagnosis of nonalcoholic fatty liver disease. - Musculoskeletal: Denies new or progressive back pain; History of prior surgeries for sacral fractures. - General: Denies smoking history. Attestation: Documentation on this patient encounter was supported using ambient scribe technology/ voice AI technology. The patient consented to recording for the purpose of documenting the encounter. Provider reviewed content of the generated note prior to signature. [facility] Medical History Cancer Arthritis Anemia Cirrhosis High cholesterol Back pain Difficulty swallowing History of hiatal hernia History of ulceration History of IBS History of diverticulitis Gastric reflux Non-smoker History of edema History of echocardiogram History of stress test Cardiology follow-up encounter History of atrial fibrillation Hx of small bowel obstruction Home Medications ???Medication ???Instructions ???Recorded ???Last Taken ???Type Immucore 1 tab PO/SL DAILY 10/01/21 Unknown History atorvastatin 10 mg tablet 10 mg PO QHS 10/01/21 Unknown Hist ory cholecalciferol (vitamin D3) 50 50 mcg PO DAILY 10/01/21 Unknown H istory mcg (2,000 unit) capsule (Vitamin D3) dabigatran etexilate 150 mg 150 mg PO BID 10/01/21 Unknown His tory capsule (Pradaxa) dexlansoprazole 60 mg 60 mg PO DAILY 10/01/21 10/08/21 H istory capsule,biphase delayed release (Dexilant) diltiazem HCl 240 mg 240 mg PO DAILY 10/01/21 10/08/21 History capsule,extended release 24 hr furosemide 40 mg tablet 40 mg PO BID PRN Edema 10/01/21 Un known History lubiprostone 8 mcg capsule 8 mcg PO BID 10/01/21 Unknown Hist ory (Amitiza) milk thistle 150 mg capsule 300 mg PO DAILY 10/01/21 Unknown H istory multivitamin 1 cap PO DAILY 10/01/21 Unknown Hi story omega-3 fatty acids-vitamin E 1 cap PO DAILY 10/01/21 Unknown Hi story 1,000 mg capsule polyethylene glycol 3350 17 gram 17 g PO DAILY 10/01/21 Unknown His tory oral powder packet (Miralax) tramadol 50 mg disintegrating 50 mg PO PRN PRN Pain 10/01/21 Unk nown History tablet apixaban 5 mg tablet (Eliquis) 5 mg PO BID 04/22/25 Unknown Histo ry apixaban 5 mg tablet (Eliquis) 5 mg PO BID 04/22/25 Unknown Histo ry levothyroxine 100 mcg tablet 100 mcg PO DAILY 04/22/25 Unknown History naloxone 4 mg/actuation nasal spray intranasal 04/22/25 Unknown His tory tramadol 50 mg tablet 50 mg PO Q6H PRN PRN pain 04/22/25 Unknown History Allergy/AdvReac Type Severity Reaction Status Date / Time adhesive tape AdvReac Rash Verified 04/22/25 15:15 NSAIDS (Non-Steroidal AdvReac Nausea Verified 04/22/25 15:15 Anti-Inflamma Surgical History (Re (more content not included)... Normal [facility] CT ABDOMEN PELVIS W IV CONTR Raymond 04-17-2025 CT ABDOMEN PELVIS W IV CONTRAST Interpreted By: Jesus Restrepo, STUDY: CT ABDOMEN PELVIS W IV CONTRAST; 04/17/2025 10:17 am INDICATION: Signs/Symptoms:LUQ pain. COMPARISON: CT pelvis 02/06/2025, CT abdomen and pelvis 01/17/2023 ACCESSION NUMBER(S): [id number] ORDERING CLINICIAN: SANCHO WOODRUFF TECHNIQUE: Axial CT of the abdomen and pelvis was performed following intravenous administration of 73 ml of contrast Omnipaque 350 with coronal and sagittal reconstruction. FINDINGS: Lower chest: Scattered linear scarring at the lung bases. No focal consolidation or pleural effusion. Partially imaged coronary artery calcifications. Liver: Cirrhosis without focal mass. Biliary: No intrahepatic or extrahepatic bile duct dilation. Cholecystectomy. Spleen: No mass. No splenomegaly. Pancreas: No mass, main duct dilation or acute inflammation. Adrenals: Normal. Kidneys: 3 mm nonobstructing right renal calculus. No left renal calculus or hydronephrosis in either kidney. No suspicious mass. GI tract: A large amount of stool is present throughout the colon. There is redemonstration of mild outpouching of a loop of nonobstructed small bowel along the left lateral abdominal wall, just below the inferior margin of the ribcage, best visualized on the coronal and sagittal reconstruction (series 7, image 24; series 8, image 23), overall similar to prior CT in 2022. A large amount of stool is present throughout the colon. No bowel obstruction or wall thickening. Prior appendectomy reported. Lymph nodes: No abdominopelvic lymphadenopathy. Mesentery/peritoneum: No free fluid, free air or fluid collection. Vasculature: Severe abdominal aortic atherosclerotic calcifications without aneurysmal dilation. The celiac trunk and SMA are patent. The hepatic, portal, superior mesenteric and splenic veins are well opacified. Pelvis: Visualization is partially obscured by metallic streak artifact. No gross abnormality. Bones/Soft tissues: Intact right total hip and right sacral ala fixation hardware. Remote compression deformities at T12, L3 and L4 are not significantly changed when compared to 2022. Unchanged mild lumbar levocurvature. Progressive severe left hip osteoarthritis. The previously shown sacral decubitus ulcer on the 02/06/2025 CT has healed. Prior ventral abdominal hernia repair without recurrent hernia. IMPRESSION: Outpouching of a small bowel loop in the left upper quadrant with suspected impingement against the inferior margin of the ribcage, similar when compared to more remote exam dated 01/17/2023. No bowel obstruction. Severe constipation. Healed sacral decubitus ulcer. MACRO: None Signed by: Jesus Restrepo 04/18/2025 11:30 AM Dictation workstation: [id number] [facility] CBC (H/H, RBC, INDICES, WBC, PLT)on 04-16-2025 Erythrocyte distribution width (RBC) [Ratio] 16.5 % High 11.0-15.0 [facility] Comment on above: Performed By: #### 7 600, 63984, 1758, 899 #### [facility] [place] [address] Editor House Organ: Luis Armando Canseco MD Hematocrit (Bld) [Volume fraction] 42.3 % Normal 35.0-45.0 [facility] Comment on above: Performed By: #### 7 600, 55171, 1758, 89 #### [facility] [place] [address] Editor House Organ: Luis Armando Canseco MD Hemoglobin (Bld) [Mass/Vol] 13.2 g/dL Normal 11.7-15.5 [facility] Comment on above: Performed By: #### 7 600, 70739, 1758, #### [facility] [place] [address] Editor House Organ: Luis Armando Canseco MD MCH (RBC) [Entitic mass] 29.9 pg Normal 27.0-33.0 [facility] Comment on above: Performed By: #### 7 600, 44156, 1758, 899 #### [facility] [place] [address] Editor House Organ: Luis Armando Canseco MD MCHC (RBC) [Mass/Vol] 31.2 g/dL Low 32.0-36.[address] [facility] Comment on above: Result Comment: For adults, a slight decrease in the calculated MCHC value (in the range of 30 to 32 g/dL) is most likely not clinically significant; however, it should be interpreted with caution in correlation with other red cell parameters and the patient's clinical condition. Performed By: #### 7 600, 79747, 175, 899 #### [facility] [place] [address] Editor House Organ: Luis Armando Canseco MD MCV (RBC) [Entitic vol] 95.7 fL Normal 80.0-100.0 [facility] Comment on above: Performed By: #### 7 600, 71798, 175, 899 #### [facility] [place] [address] Editor House Organ: Luis Armando Canseco MD Platelet mean volume (Bld) [Entitic vol] 11.8 fL Normal 7.5-12.5 [facility] Comment on above: Performed By: #### 7 600, 77470, 175, 899 #### [facility] [place] [address] Editor House Organ: Luis Armando Canseco MD Platelets (Bld) [#/Vol] 162 10*3/uL Normal 140-400 [facility] Comment on above: Performed By: #### 7 600, 21835, 175, 899 #### [facility] [place] [address] Editor House Organ: Luis Armando Canseco MD RBC (Bld) [#/Vol] 4.42 10*6/uL Normal 3.80-5.10 [facility] Comment on above: Performed By: #### 7 600, 49669, 175, 899 #### [facility] [place] [address] Editor House Organ: Luis Armando Canseco MD WBC (Bld) [#/Vol] 5.1 10*3/uL Normal 3.8-10.8 [facility] Comment on above: Performed By: #### 7 600, 18628, 175, 899 #### [facility] [place] [address] Editor House Organ: Luis Armando Canseco MD COMPREHENSIVE METABOLIC PANE L W/ANION GAPon 04-16-2025 Albumin [Mass/Vol] 3.5 g/dL Low 3.6-5.1 [facility] Comment on above: Performed By: #### 7 600, 94620, 1758, 89 #### [facility] [place] [address] Editor House Organ: Luis Armando Canseco MD ALP [Catalytic activity/Vol] 157 U/L High 37-153 [facility] Comment on above: Performed By: #### 7 600, , 1758, 89 #### [facility] [place] [address] Editor House Organ: Luis Armando Canseco MD ALT [Catalytic activity/Vol] 10 U/L Normal 6-29 [facility] Comment on above: Performed By: #### 7 600, , 1758, #### [facility] [place] [address] Editor House Organ: Luis Armando Canseco MD AST [Catalytic activity/Vol] 43 U/L High 10-35 [facility] Comment on above: Performed By: #### 7 600, , 1758, 89 #### [facility] [place] [address] Editor House Organ: Luis Armando Canseco MD Bilirubin [Mass/Vol] 0.8 mg/dL Normal 0.2-1.2 [facility] Comment on above: Performed By: #### 7 600, 40221, 1758, 89 #### [facility] [place] [address] Editor House Organ: Luis Armando Canseco MD Calcium [Mass/Vol] 8.5 mg/dL Low 8.6-10.4 [facility] Comment on above: Performed By: #### 7 600, 12996, 1758, 89 #### [facility] [place] [address] Editor House Organ: Luis Armando Canseco MD Chloride [Moles/Vol] 102 mmol/L Normal 98-110 [facility] Comment on above: Performed By: #### 7 600, 98481, 1758, 89 #### [facility] [place] [address] Editor House Organ: Luis Armando Canseco MD CO2 [Moles/Vol] 28 mmol/L Normal 20-32 [facility] Comment on above: Performed By: #### 7 600, 97649, 1758, 899 #### [facility] [place] [address] Editor House Organ: Luis Armando Canseco MD Creatinine [Mass/Vol] 0.70 mg/dL Normal 0.60-0.[address] [facility] Comment on above: Performed By: #### 7 600, 30691, 1758, 89 #### [facility] [place] [address] Editor House Organ: Luis Armando Canseco MD ELECTROLYTE BALANCE 8 mmol/L (calc) Normal 7-17 [facility] Comment on above: Performed By: #### 7 600, 99676, 1758, 89 #### [facility] [place] [address] Editor House Organ: Luis Armando Canseco MD GFR/1.73 sq M.predicted among non-blacks MDRD (S/P/Bld) [Vol rate/Area] 86 mL/min/{1.73_m2} Normal > OR = 60 [facility] Comment on above: Performed By: #### 7 600, 15494, 1758, 89 #### [facility] [place] [address] Editor House Organ: Luis Armando Canseco MD Glucose [Mass/Vol] 70 mg/dL Normal 65-139 [facility] Comment on above: Result Comment: Non-fasting reference interval Performed By: #### 7 600, 49772, 1758, 899 #### [facility] [place] [address] Editor House Organ: Luis Armando Canseco MD Potassium [Moles/Vol] 4.5 mmol/L Normal 3.5-5.[address] [facility] Comment on above: Performed By: #### 7 600, 16769, 1758, 899 #### [facility] [place] [address] Editor House Organ: Luis Armando Canseco MD Protein [Mass/Vol] 6.5 g/dL Normal 6.1-8.1 [facility] Comment on above: Performed By: #### 7 600, 02723, 1758, 899 #### [facility] [place] [address] Editor House Organ: Luis Armando Canseco MD Sodium [Moles/Vol] 138 mmol/L Normal 135-146 [facility] Comment on above: Performed By: #### 7 600, 75174, 1758, 899 #### [facility] [place] [address] Editor House Organ: Luis Armando Canseco MD Urea nitrogen [Mass/Vol] 19 mg/dL Normal 7-25 [facility] Comment on above: Performed By: #### 7 600, 98545, 1758, 899 #### [facility] [place] [address] Editor House Organ: Luis Armando Canseco MD LIPID PANEL, [facility] 07-0 Cholesterol [Mass/Vol] 118 mg/dL Normal <200 [facility] Comment on above: Order Comment: FASTI NG:NO FASTING: NO Performed By: #### 7 600, 04280, 1758, 899 #### [facility] [place] [address] Editor House Organ: Luis Armando Canseco MD Cholesterol in HDL [Mass/Vol] 50 mg/dL Normal > OR = 50 [facility] Comment on above: Order Comment: FASTI NG:NO FASTING: NO Performed By: #### 7 600, 69854, 175, 899 #### [facility] [place] [address] Editor House Organ: Luis Armando Canseco MD Cholesterol in LDL [Mass/Vol] 54 mg/dL Normal [facility] Comment on above: Order Comment: FASTI NG:NO FASTING: NO Result Comment: Refe rence range: <100 Desirable range <100 mg/dL for primary prevention; <70 mg/dL for patients with CHD or diabetic patients with > or = 2 CHD risk factors. LDL-C is now calculated using the Genesis calculation, which is a validated novel method providing better accuracy than the Friedewald equation in the estimation of LDL-C. Angel SS et al. DOMINGO. 2013;310(19): 2186-1809 (http://education.eMoneyUnion/faq/WMK233) Performed By: #### 7 600, 04315, 175, 899 #### [facility] [address], [address] [place] [address] Editor House Organ: Luis Armando Canseco MD Cholesterol.total/Chol esterol in HDL [Mass ratio] 2.4 {ratio} Normal <5.0 [facility] Comment on above: Order Comment: FASTI NG:NO FASTING: NO Performed By: #### 7 600, 98119, 175, 899 #### [facility] [address], [address] [place] [address] Editor House Organ: Luis Armando Canseco MD NON HDL CHOLESTEROL 68 mg/dL (calc) Normal <130 [facility] Comment on above: Order Comment: FASTI NG:NO FASTING: NO Result Comment: For patients with diabetes plus 1 major ASCVD risk factor, treating to a non-HDL-C goal of <100 mg/dL (LDL-C of <70 mg/dL) is considered a therapeutic option. Performed By: #### 7 600, 99776, 175, 899 #### [facility] [address], [address] [place] [address] Editor House Organ: Luis Armando Canseco MD Triglyceride [Mass/Vol] 67 mg/dL Normal <150 [facility] Comment on above: Order Comment: FASTI NG:NO FASTING: NO Performed By: #### 7 600, 83232, 1754, 899 #### [facility] [address], [address] [place] [address] Editor House Organ: Luis Armando Canseco MD TSHon 04-16-2025 TSH Qn 3.30 m[IU]/L Normal 0.40-4.50 [facility] Comment on above: Performed By: #### 7 340, 95118, 2459, 899 #### [facility] [address], [address] [place] [address] Editor House Organ: Luis Armando Canseco MD CT PELVIS W IV CONTRASTon CT PELVIS W IV CONTRAST Interpreted By: Mckenzie Weaver, STUDY: CT PELVIS W IV CONTRAST; ; 02/06/2025 1:18 pm INDICATION: Signs/Symptoms:rule out osteomyelitis or involvement of metal with open wound. may not use contrast if of no benefit for diagnosis. 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 Images reformatted in the coronal and sagittal projection. FINDINGS: Focal area of skin ulceration demonstrated within the midline upper buttock at the level of the skin marker placement measuring 2.1 cm in the transverse dimension. There is surrounding induration of the adjacent fat about this ulcer. More focal inflammatory change within the cleft of the buttock superiorly with surrounding cellulitis suggested in the appropriate clinical situation. There is a no fluid collection or abscess formation. No extension of the ulcer or fistulous tract to the sacrum. There is no evidence for osteomyelitis. There is a focal anterior angulation of the distal sacrum near the sacrococcygeal junction with findings as seen on remote imaging. Postoperative fixation across the right SI joint demonstrated. There is no lucency about the fixation surrounding methylmethacrylate placement demonstrated. No CT evidence for osteomyelitis. Right total hip arthroplasty in place. Remainder of the visualized osseous pelvis demonstrates severe osteoarthritic degenerative changes of the left hip with remodeling of the left femoral head contour. There is a moderate facet arthropathy lower lumbar spine with degenerative discogenic changes and moderate loss disc space height visualized portions of the L3 and L4 as seen on remote imaging. Included portions visualized liver demonstrates nodular contour and findings in keeping with cirrhosis. Correlate with patient's history. Loops of bowel visualized portions are unremarkable. IMPRESSION: 1. Skin ulceration midline upper buttock about the sacrum. Surrounding induration of the fat and cellulitis. No abscess formation. No extension of the ulceration to the cortical margin of the sacrum or evidence for osteomyelitis. 2. Postoperative fixation about the right SI joint appearing unremarkable within limits of the CT. No surrounding erosions or evidence for osteomyelitis. 3. Findings suggesting cirrhosis within the liver. MACRO: None Signed by: Mckenzie Weaver 02/11/2025 11:46 AM Dictation workstation: [id number] [facility] CREATININEon 01-31-2025 Creatinine [Mass/Vol] 0.70 mg/dL Normal 0.60-0.95 [facility] Comment on above: Performed By: #### 3 75, 294 #### [facility] [address], [address] [place] [address] Editor House Organ: Luis Armando Canseco MD GFR/1.73 sq M.predicted among non-blacks MDRD (S/P/Bld) [Vol rate/Area] 86 mL/min/{1.73_m2} Normal > OR = 60 [facility] Comment on above: Performed By: #### 3 75, 294 #### [facility] [address], [address] [place] [address] Editor House Organ: Luis Armando Canseco MD UREA NITROGEN (BUN)on 2024 Urea nitrogen [Mass/Vol] 14 mg/dL Normal 7-25 [facility] Comment on above: Order Comment: FASTI NG:YES FASTING: YES Performed By: #### 3 75, 294 #### [facility] [address], [address] [place] [address] Editor House Organ: Luis Armando Canseco MD XR PELVIS 1-2 VIEWSon 2024 XR PELVIS 1-2 VIEWS Interpreted By: Tere Rosa, STUDY: XR PELVIS 1-2 VIEWS 01/21/2025 10:03 am INDICATION: Signs/Symptoms:gluteal cleft ulcer. sacral hardware. ? related COMPARISON: None available. ACCESSION NUMBER(S): [id number] ORDERING CLINICIAN: DARIELA GARZA TECHNIQUE: AP view of the pelvis FINDINGS: There are 2 orthopedic screws bridged by a stabilizing momo in the region of the right sacroiliac joint with orthopedic cement at this site noted as well. In addition, there is postoperative change from bipolar right hip arthroplasty. No obvious osseous destruction is seen. The left hip joint space is narrowed. IMPRESSION: 2 orthopedic screws and stabilizing momo transfixing right sacroiliac joint with orthopedic cement at this site noted as well. Prior bipolar right hip arthroplasty. No plain film evidence for osteomyelitis. If clinically indicated, a CT examination of the pelvis would be advised for further evaluation of the hardware placement and of the status of the sacrum and coccyx. Signed by: Tere Rosa 01/21/2025 7:38 PM Dictation workstation: [id number] [facility] XR Pelvis 1 or 2 Viewson 2 orthopedic screws and stabilizing momo transfixing right sacroiliac joint with orthopedic cement at this site noted as well. Prior bipolar right hip arthroplasty. No plain film evidence for osteomyelitis. If clinically indicated, a CT examination of the pelvis would be advised for further evaluation of the hardware placement and of the status of the sacrum and coccyx. Signed by: Tere Rosa 01/21/2025 7:38 PM Dictation workstation: [id number] Interpreted By: Tere Rosa, STUDY: XR PELVIS 1-2 VIEWS 01/21/2025 10:03 am INDICATION: Signs/Symptoms:gluteal cleft ulcer. sacral hardware. ? related COMPARISON: None available. ACCESSION NUMBER(S): [id number] ORDERING CLINICIAN: DARIEAL GARZA TECHNIQUE: AP view of the pelvis FINDINGS: There are 2 orthopedic screws bridged by a stabilizing momo in the region of the right sacroiliac joint with orthopedic cement at this site noted as well. In addition, there is postoperative change from bipolar right hip arthroplasty. No obvious osseous destruction is seen. The left hip joint space is narrowed. [facility] Tere Rosa MD - 01/21/2025 Interpreted By: Tere Rosa, STUDY: XR PELVIS 1-2 VIEWS 01/21/2025 10:03 am INDICATION: Signs/Symptoms:gluteal cleft ulcer. sacral hardware. ? related COMPARISON: None available. ACCESSION NUMBER(S): [id number] ORDERING CLINICIAN: DARIELA GARZA TECHNIQUE: AP view of the pelvis FINDINGS: There are 2 orthopedic screws bridged by a stabilizing momo in the region of the right sacroiliac joint with orthopedic cement at this site noted as well. In addition, there is postoperative change from bipolar right hip arthroplasty. No obvious osseous destruction is seen. The left hip joint space is narrowed. IMPRESSION: 2 orthopedic screws and stabilizing momo transfixing right sacroiliac joint with orthopedic cement at this site noted as well. Prior bipolar right hip arthroplasty. No plain film evidence for osteomyelitis. If clinically indicated, a CT examination of the pelvis would be advised for further evaluation of the hardware placement and of the status of the sacrum and coccyx. Signed by: Tere Rosa 01/21/2025 7:38 PM Dictation workstation: [id number] [facility] Work Phone: Radiology Study observation (narrative) [facility] Work Phone: XR Pelvis 1 or 2 ViewsOrdere d By: Tere Rosa on 01-21-2025 [facility] Work Phone: DRUG MONITOR, PANEL 5, CASTILLOE N, URINEon 01-02-2025 Amphetamines Negative Normal <500 [facility] Comment on above: Result Comment: See Note A Performed By: #### 3 4820 #### [facility] [address] , [address] [place], [place] [id number] Editor House Organ: Luis Armanod Canseco MD Barbiturates Negative Normal <300 [facility] Comment on above: Result Comment: See Note A Performed By: #### 3 9420 #### [facility] [address] , [address] [place], [place] [id number] Editor House Organ: Luis Armando Canseco MD Benzodiazepines Negative Normal <100 [facility] Comment on above: Result Comment: See Note A Performed By: #### 3 1320 #### [facility] [address] , [address] [place] [address] Editor House Organ: Luis Armando Canseco MD Cocaine Metabolite Negative Normal <150 [facility] Comment on above: Result Comment: See Note A Performed By: #### 3 9570 #### [facility] [place] [address] Editor House Organ: Luis Armando Canseco MD Creatinine (U) [Mass/Vol] 60.5 mg/dL Normal > or = 20.0 [facility] Comment on above: Performed By: #### 3 9420 #### [facility] [place] [address] Editor House Organ: Luis Armando Canseco MD Marijuana Metabolite Negative Normal <20 [facility] Comment on above: Result Comment: See Note A Performed By: #### 3 1157 #### [facility] [place] [address] Editor House Organ: Luis Armando Canseco MD Methadone Metabolite Negative Normal <100 [facility] Comment on above: Result Comment: See Note A Performed By: #### 3 7271 #### [facility] [place] [address] Editor House Organ: Luis Armando Canseco MD Opiates Positive Abnormal <100 [facility] Comment on above: Result Comment: See Note A Performed By: #### 3 3379 #### [facility] [place] [address] Editor House Organ: Luis Armando Canseco MD Oxidant Negative Normal <200 [facility] Comment on above: Performed By: #### 3 9224 #### [facility] [place] [address] Editor House Organ: Luis Armando Canseco MD Oxycodone Negative Normal <100 [facility] Comment on above: Result Comment: See Note A Performed By: #### 3 1993 #### [facility] [place] [address] Editor House Organ: Luis Armando Canseco MD pH (U) 6.6 [pH] Normal 4.5-9.0 [facility] Comment on above: Performed By: #### 3 8029 #### [facility] [address], [address] [place] [address] Editor House Organ: Luis Armando Canseco MD DRUG MONITORING TEMPLATEon 0 01-02-2025 Notes and Comments Normal [facility] Comment on above: Result Comment: This drug testing is for medical treatment only. Analysis was performed as non-forensic testing and these results should be used only by healthcare providers to render diagnosis or treatment, or to monitor progress of medical conditions. Note A: The results are presumptive; based only on screening methods, and they have not been confirmed by a definitive method. Healthcare Providers needing Interpretation assistance, please contact us at [phone] ( ) M-F, 8am to 10pm EST Performed By: #### 3 [id number] #### [facility] [address], [address] [place] [address] Editor House Organ: Luis Armando Canseco MD XR OR FLUOROSCOPY TIMEon XR OR FLUOROSCOPY TIME This is an auto finalized result. Please refer to patient chart for further information. further information. further information. [facility] Comment on above: Order Comment: Injur y/Trauma or Illness?:Illness/Other How long have you had these symptoms (acute/chronic)?:Acute Reason for exam?:Cervical interlaminar epidural steroid injection, cervical 7- thoracic 1 Type of Exam?:Unknown Additional signs and symptoms?:n Fluoro time in minutes:0.16 9.5 seconds Fluoro dose in mGy?:0.28 mGy LG Jt Injection/Arthrocentes is: L glenohumeralon 10-08-2024 Christine Voss CNP 10/08/2024 3:05 PM LG Jt Injection/Arthrocentesis : L glenohumeral Performed by: Christine Voss CNP Authorized by: Christine Voss CNP CPT 73867 - Large Joint Arthrocentesis: Consent given by: Patient Time out: Immediately prior to the procedure a time out was called Physician or proceduralist has discussed critical or nonroutine steps, procedure duration and anticipated blood loss: Yes Supporting Documentation: Indications: Pain and diagnostic evaluation Procedure Details: Location: Shoulder Site: L glenohumeral Prep: patient was prepped and draped in usual sterile fashion Needle size: 22 G Approach: Posterior Medications: 40 mg triamcinolone acetonide 40 mg/mL Anesthetic used: Lidocaine 1% Anesthetic amount (mL): 2 Patient tolerance: Patient tolerated the procedure well with no immediate complications [facility] LG Jt Injection/Arthrocentes is: L greater trochanteric bursaon 10-08-2024 Christine Voss CNP 10/08/2024 3:05 PM LG Jt Injection/Arthrocentesis : L greater trochanteric bursa Performed by: Christine Voss CNP Authorized by: Christine Voss CNP CPT 09753 - Large Joint Arthrocentesis: Consent given by: Patient Time out: Immediately prior to the procedure a time out was called Physician or proceduralist has discussed critical or nonroutine steps, procedure duration and anticipated blood loss: Yes Supporting Documentation: Indications: Diagnostic evaluation and pain Procedure Details: Location: Hip Site: L greater trochanteric bursa Prep: patient was prepped and draped in usual sterile fashion Needle size: 22 G Medications: 40 mg triamcinolone acetonide 40 mg/mL Anesthetic used: Lidocaine 1% Anesthetic amount (mL): 2 Patient tolerance: Patient tolerated the procedure well with no immediate complications [facility] No Panel Informationon 10-08 [facility] CBC panel Auto (Bld)on 08-17 Erythrocyte distribution width (RBC) [Ratio] 15.0 % High 11.5-14.5 [facility] Comment on above: Performed By: #### 5 8410-2 #### BURAK DUMONT ([id number]) [facility] [address] [place] [address] [phone] Hematocrit (Bld) [Volume fraction] 41.9 % Normal 36.0-46.0 [facility] Comment on above: Performed By: #### 5 8410-2 #### BURAK DUMONT ([id number]) [facility] [address] [place] [address] 53768 Hemoglobin (Bld) [Mass/Vol] 13.2 g/dL Normal 12.0-16.0 [facility] Comment on above: Performed By: #### 5 8410-2 #### BURAK DUMONT ([id number]) [facility] [address] [place] [address] 00971 MCH (RBC) [Entitic mass] 30.3 pg Normal 26.0-34.0 [facility] Comment on above: Performed By: #### 5 8410-2 #### BURAK DUMONT ([id number]) [facility] [address] [place] [address] 75788 MCHC (RBC) [Mass/Vol] 31.5 g/dL Low 32.0-36.[address] [facility] Comment on above: Performed By: #### 5 8410-2 #### BURAK DUMONT ([id number]) [facility] [address] [place] [address] 50998 MCV (RBC) [Entitic vol] 96 fL Normal 80-100 [facility] Comment on above: Performed By: #### 5 8410-2 #### BURAK DUMONT ([id number]) [facility]) [address] [place] [address] 99265 Nucleated RBC/100 WBC (Bld) [Ratio] 0.0 /100 WBCs Normal 0.0-0.0 [facility] Comment on above: Performed By: #### 5 8410-2 #### BURAK DUMONT ([id number]) [facility] [address] [place] [address] 96808 Platelets (Bld) [#/Vol] 168 x10*3/uL Normal 150-450 [facility] Comment on above: Performed By: #### 5 8410-2 #### BURAK DUMONT ([id number]) [facility] [address] [place] [address] 89908 RBC (Bld) [#/Vol] 4.36 x10*6/uL Normal 4.00-5.20 [facility] Comment on above: Performed By: #### 5 8410-2 #### BURAK DUMONT ([id number]) [facility] [address] [place] [address] WBC (Bld) [#/Vol] 4.9 x10*3/uL Normal 4.4-11.3 [facility] Comment on above: Performed By: #### 5 8410-2 #### BURAK DUMONT ([id number]) [facility] [address] [place] [address] Comprehensive metabolic 2000 panelon 08-17-2024 Albumin BCP dye [Mass/Vol] 3.5 g/dL Normal 3.4-5.0 [facility] Comment on above: Performed By: #### 2 4323-8 #### BURAK DUMONT ([id number]) [facility] [address] [place] [address] ALP [Catalytic activity/Vol] 179 U/L High 33-136 [facility] Comment on above: Performed By: #### 2 4323-8 #### BURAK DUMONT ([id number]) [facility] [address] [place] [address] ALT With P-5'-P [Catalytic activity/Vol] 9 U/L Normal 7-45 [facility] Comment on above: Result Comment: Cielo ents treated with Sulfasalazine may generate falsely decreased results for ALT. Performed By: #### 2 4323-8 #### BURAK DUMONT ([id number]) [facility] [address] [place] [address] 21002 Anion gap [Moles/Vol] 9 mmol/L Low 10-[address] [facility] Comment on above: Performed By: #### 2 4323-8 #### BURAK DUMONT ([id number]) [facility] [address] [place] [address] 90936 AST With P-5'-P [Catalytic activity/Vol] 34 U/L Normal 9-39 [facility] Comment on above: Performed By: #### 2 4323-8 #### BURAK DUMONT ([id number]) [facility] [address] [place] [address] 08088 Bilirubin [Mass/Vol] 0.9 mg/dL Normal 0.0-1.2 [facility] Comment on above: Performed By: #### 2 4323-8 #### BURAK DUMONT ([id number]) [facility] [address] [place] [address] Calcium [Mass/Vol] 8.7 mg/dL Normal 8.6-10.3 [facility] Comment on above: Performed By: #### 2 4323-8 #### BURAK DUMONT ([id number]) [facility]) [address] [place] [address] Chloride [Moles/Vol] 104 mmol/L Normal 98-107 [facility] Comment on above: Performed By: #### 2 4323-8 #### BURAK DUMONT ([id number]) [facility] [address] [place] [address] 49661 CO2 [Moles/Vol] 31 mmol/L Normal 21-32 [facility] Comment on above: Performed By: #### 2 4323-8 #### BURAK DUMONT ([id number]) [facility] [address] [place] [address] Creatinine [Mass/Vol] 0.56 mg/dL Normal 0.50-1.[address] [facility] Comment on above: Performed By: #### 2 4323-8 #### BURAK DUMONT ([id number]) [facility] [address] [place] [address] 85182 GFR/1.73 sq M.predicted MDRD (S/P/Bld) [Vol rate/Area] mL/min/{1.73_m2} Normal >60 [facility] Comment on above: Result Comment: Calc ulations of estimated GFR are performed using the 2020 CKD-EPI Study Refit equation without the race variable for the IDMS-Traceable creatinine methods. https://jasn.asnjournals.org/content//ASN.45041 68207 Performed By: #### 2 4323-8 #### BURAK DUMONT ([id number]) [facility] [address] [place] [address] 51450 Glucose [Mass/Vol] 79 mg/dL Normal 74-99 [facility] Comment on above: Performed By: #### 2 4323-8 #### BURAK DUMONT ([id number]) [facility] [address] [place] [address] 76011 Potassium [Moles/Vol] 3.5 mmol/L Normal 3.5-5.[address] [facility] Comment on above: Performed By: #### 2 4323-8 #### BURAK DUMONT ([id number]) [facility] [address] [place] [address] 41294 Protein [Mass/Vol] 5.9 g/dL Low 6.4-8.2 [facility] Comment on above: Performed By: #### 2 4323-8 #### BURAK DUMONT ([id number]) [facility] [address] [place] [address] 54293 Sodium [Moles/Vol] 140 mmol/L Normal 136-145 [facility] Comment on above: Performed By: #### 2 4323-8 #### BURAK DUMONT ([id number]) [facility] [address] [place] [address] 66358 Urea nitrogen [Mass/Vol] 13 mg/dL Normal 6-23 [facility] Comment on above: Performed By: #### 2 4323-8 #### BURAK DUMONT ([id number]) [facility] [address] [place] [address] 91529 LG Jt Injection/Arthrocentes is: L greater trochanteric bursaon 06-01-2024 Sujata [place] CNP 06/01/2024 11:08 AM LG Jt Injection/Arthrocentesis : L greater trochanteric bursa Performed by: Sujata [place] CNP Authorized by: Sujata [place] CNP CPT 48589 - Large Joint Arthrocentesis: Consent given by: Patient Time out: Immediately prior to the procedure a time out was called Physician or proceduralist has discussed critical or nonroutine steps, procedure duration and anticipated blood loss: Yes Supporting Documentation: Indications: Pain Procedure Details: Location: Hip Site: L greater trochanteric bursa Prep: patient was prepped and draped in usual sterile fashion Needle size: 22 G Approach: Lateral Medications: 1 mL dexAMETHasone 4 mg/mL, 1 mL triamcinolone acetonide 40 mg/mL Anesthetic used: Bupivacaine 0.5% and Bupivacaine 0.25% Anesthetic amount (mL): 1 Patient tolerance: Patient tolerated the procedure well with no immediate complications [facility] LG Jt Injection/Arthrocentes is: L subacromial bursaon 06-01-2024 Sujata [place] CNP 06/01/2024 11:08 AM LG Jt Injection/Arthrocentesis : L subacromial bursa Performed by: Sujata [place] CNP Authorized by: Sujata [place] CNP CPT 14323 - Large Joint Arthrocentesis: Consent given by: Patient Time out: Immediately prior to the procedure a time out was called Physician or proceduralist has discussed critical or nonroutine steps, procedure duration and anticipated blood loss: Yes Supporting Documentation: Indications: Pain Procedure Details: Location: Shoulder Site: L subacromial bursa Prep: patient was prepped and draped in usual sterile fashion Needle size: 22 G Approach: Posterior Medications: 1 mL dexAMETHasone 4 mg/mL, 1 mL triamcinolone acetonide 40 mg/mL Anesthetic used: Bupivacaine 0.25% Anesthetic amount (mL): 3 Patient tolerance: Patient tolerated the procedure well with no immediate complications [facility] No Panel Informationon 06-01 [facility] MR CERVICAL SPINE WITHOUT CO NTRASTon 04-05-2024 MR CERVICAL SPINE WITHOUT CONTRAST EXAMINATION: MR CERVICAL SPINE WITHOUT CONTRAST HISTORY: ORDERING SYSTEM PROVIDED HISTORY: Cervical radiculopathy, TECHNOLOGIST PROVIDED HISTORY: Illness/Other Reason for exam: Neck pain into shoulders Encounter Type: Initial Additional signs and symptoms: na ORDERING SYSTEM PROVIDED DIAGNOSIS CODES: M54.12 Cervical radiculopathy COMPARISON: None. TECHNIQUE: Multiplanar, multisequence MRI imaging of the cervical spine without contrast. FINDINGS: Normal alignment. There are severe degenerative changes at C1-2 at the atlantoaxial junction. There is reactive bone marrow edema in the odontoid process and anterior arch of C1. There is no spinal stenosis at this level. C2-3, moderate degenerative disc disease. No spinal stenosis. Mild facet arthropathy. No foraminal narrowing. C3-4, there is osseous fusion across the facet joints. Mild degenerative disc disease. No spinal stenosis. No foraminal narrowing. C4-5, severe facet arthropathy on the right. Mild facet arthropathy on the left. No spinal canal stenosis. No significant foraminal narrowing. C5-6, severe degenerative disc disease. An endplate osteophyte complex and ligamentum flavum thickening result in moderate spinal canal stenosis. There is moderate foraminal narrowing bilaterally. C6-7, severe degenerative disc disease. Endplate osteophyte complex results in mild spinal stenosis. Moderate bilateral foraminal narrowing. C7-T1, mild degenerative disc disease. No spinal stenosis. Mild foraminal narrowing. No spinal cord compression. No abnormal signal in the cervical spinal cord. No paraspinal mass. IMPRESSION: 1. Severe degenerative changes at the C1-2 level at the atlantoaxial junction with reactive bone marrow edema in the odontoid process and anterior arch of C1. 2. At C5-6, there is severe degenerative disc disease. An endplate osteophyte complex and ligamentous thickening results in moderate spinal canal stenosis. There is moderate bilateral foraminal narrowing. 3. Severe degenerative disc disease at C6-7. There is mild spinal stenosis and moderate bilateral foraminal narrowing. 4. No abnormal signal in the cervical spinal cord. DM/tereso Workstation ID: [id number] Dictated by: RASHAWN VELASQUEZ on TueApr 09, 2024 9:24:12 AM EDT Transcribed by: BABS SANTORO on TueApr 09, 2024 10:32:25 AM EDT Finalized by: RASHAWN VELASQUEZ on TueApr 09, 2024 11:30:22 AM EDT [facility] Comment on above: Order Comment: Injur y/Trauma or Illness?:Illness/Other How long have you had these symptoms (acute/chronic)?:Chronic Reason for exam?:Neck pain into shoulders Type of Exam?:Initial Additional signs and symptoms?:na XR Cervical spine AP and Lat eralon 11-16-2023 Anterolisthesis of C4 relative to C5 on flexion views. No definite acute fracture visualized. Consider CT scan and or MRI if there is recent trauma.Ops call initiated at time of read. Workstation ID: [id number] [facility] EXAMINATION: XR CERVICAL SPINE AP/LAT/FLEX/EXT HISTORY: ORDERING SYSTEM PROVIDED HISTORY: possible broken vertebra, TECHNOLOGIST PROVIDED HISTORY: Illness/Other Reason for exam: neck pain Cancer History: unk Surgery, RadiationHistory: THR Right Encounter Type: Initial Additional signs and symptoms: . ORDERING SYSTEM PROVIDED DIAGNOSIS CODES: M54.12 Cervical radicular pain COMPARISON: None FINDINGS: Three views of the cervical spine. No acute fracture. C7-T1 articulation is intact. Exaggerated cervical lordotic curvature. 3 mm of anterolisthesis C4 relative to C5 on flexion views. No listhesis on extension views. Vertebral body heights are normal.Moderate loss of disc space at C5-6 and C6-7 with anterior endplate osteophytes and uncovertebral hypertrophy. No prevertebral soft tissue swelling. [facility] Zachariah Dietz MD - 11/16/2023 EXAMINATION: XR CERVICAL SPINE AP/LAT/FLEX/EXT HISTORY: ORDERING SYSTEM PROVIDED HISTORY: possible broken vertebra, TECHNOLOGIST PROVIDED HISTORY: Illness/Other Reason for exam: neck pain Cancer History: unk Surgery, RadiationHistory: THR Right Encounter Type: Initial Additional signs and symptoms: . ORDERING SYSTEM PROVIDED DIAGNOSIS CODES: M54.12 Cervical radicular pain COMPARISON: None FINDINGS: Three views of the cervical spine. No acute fracture. C7-T1 articulation is intact. Exaggerated cervical lordotic curvature. 3 mm of anterolisthesis C4 relative to C5 on flexion views. No listhesis on extension views. Vertebral body heights are normal.Moderate loss of disc space at C5-6 and C6-7 with anterior endplate osteophytes and uncovertebral hypertrophy. No prevertebral soft tissue swelling. IMPRESSION: Anterolisthesis of C4 relative to C5 on flexion views. No definite acute fracture visualized. Consider CT scan and or MRI if there is recent trauma.Ops call initiated at time of read. Workstation ID: [id number] [facility] XR Cervical spine AP and Lat eralOrdered By: Zachariah Dietz on 11-16-2023 [facility] Work Phone: XR Cervical spine AP and Lat eralon 11-15-2023 Radiology Study observation (narrative) [facility] Drugs of abuse screen W Refl ex confirm panel (U)on 10-13-2023 Amphetamines Screen Ql (U) Negative Presumptive Negative [facility] Comment on above: CUTOFF LEVEL: 500 NG /ML Cross-reactivity has been reported with high concentrations of the following drugs: buproprion, chloroquine, chlorpromazine, ephedrine, mephentermine, fenfluramine, phentermine, phenylpropanolamine, pseudoephedrine, and propranolol. Barbiturates Screen Ql (U) Negative Presumptive Negative [facility] Comment on above: CUTOFF LEVEL: 200 NG /ML Benzodiazepines Ql (U) Negative Presu mptive Negative [facility] Comment on above: CUTOFF LEVEL: 200 NG /ML Benzoylecgonine Screen Ql (U) Negative Presumptive Negative [facility] Comment on above: CUTOFF LEVEL: 150 NG /ML Cannabinoids Screen Ql (U) Negative Presumptive Negative [facility] Comment on above: CUTOFF LEVEL: 50 NG/ ML fentaNYL+Norfentanyl Screen Ql (U) Negative Presumptive Negative [facility] Comment on above: CUTOFF LEVEL: 5 NG/M L Interpretation and review of laboratory results Normal [facility] Opiates Screen Ql (U) Negative Presum ptive Negative [facility] Comment on above: CUTOFF LEVEL: 300 NG /ML The opiate screen does not detect fentanyl, meperidine, or tramadol. Oxycodone is not consistently detected (refer to Oxycodone Screen, Urine result). oxyCODONE+oxyMORphone Screen Ql (U) Negative Presumptive Negative [facility] Comment on above: CUTOFF LEVEL: 100 NG /ML This test will accurately detect both oxycodone and oxymorphone. Phencyclidine Ql (U) Negative Presump tive Negative [facility] Comment on above: CUTOFF LEVEL: 25 NG/ ML Cross-reactivity has been reported with dextromethorphan. Drug screen results are presumptive and should not be used to assess compliance with prescribed medication. Definitive confirmatory drug testing has been added to this sample for any positive screen result and will be reported separately. Toxicology screening results are reported qualitatively. The concentration must be greater than or equal to the cutoff to be reported as positive. The concentration at which the screening test can detect an individual drug or metabolite varies. The absence of expected drug(s) and/or drug metabolite(s) may indicate non-compliance, inappropriate timing of specimen collection relative to drug administration, poor drug absorption, diluted/adulterated urine, or limitations of testing. For medical purposes only; not valid for forensic use. Interpretive questions should be directed to the laboratory medical directors. [facility] LG Jt Injection/Arthrocentes is: L glenohumeralon 10-13-2023 Christine Voss CNP 10/13/2023 3:25 PM LG Jt Injection/Arthrocentesis : L glenohumeral Performed by: Christine Voss CNP Authorized by: Christine Voss CNP CPT 44185 - Large Joint Arthrocentesis: Consent given by: Patient Time out: Immediately prior to the procedure a time out was called Physician or proceduralist has discussed critical or nonroutine steps, procedure duration and anticipated blood loss: Yes Supporting Documentation: Indications: Pain and diagnostic evaluation Procedure Details: Location: Shoulder Site: L glenohumeral Prep: patient was prepped and draped in usual sterile fashion Needle size: 22 G Approach: Posterior Medications: 40 mg triamcinolone acetonide 40 mg/mL Anesthetic used: Lidocaine 1% Anesthetic amount (mL): 2 Patient tolerance: Patient tolerated the procedure well with no immediate complications [facility] CBC panel Auto (Bld)on 10-12 Erythrocyte distribution width (RBC) [Ratio] 18.4 % High 11.5-14.5 [facility] Comment on above: Performed By: #### 5 8410-2 #### BURAK DUMONT ([id number]) [facility] [address] [place] [address] 47051 Hematocrit (Bld) [Volume fraction] 38.4 % Normal 36.0-46.0 [facility] Comment on above: Performed By: #### 5 8410-2 #### BURAK DUMONT ([id number]) [facility] [address] [place] [address] 99336 Hemoglobin (Bld) [Mass/Vol] 12.1 g/dL Normal 12.0-16.0 [facility] Comment on above: Performed By: #### 5 8410-2 #### BURAK DUMONT ([id number]) [facility] [address] [place] [address] 56166 MCH (RBC) [Entitic mass] 27.9 pg Normal 26.0-34.0 [facility] Comment on above: Performed By: #### 5 8410-2 #### BURAK DUMONT ([id number]) [facility] [address] [place] [address] 76351 MCHC (RBC) [Mass/Vol] 31.5 g/dL Low 32.0-36.[address] [facility] Comment on above: Performed By: #### 5 8410-2 #### BURAK DUMONT ([id number]) [facility] [address] [place] [address] 98609 MCV (RBC) [Entitic vol] 89 fL Normal 80-100 [facility] Comment on above: Performed By: #### 5 8410-2 #### BURAK DUMONT ([id number]) [facility] [address] [place] [address] 41757 Nucleated RBC/100 WBC (Bld) [Ratio] 0.0 /100 WBCs Normal 0.0-0.0 [facility] Comment on above: Performed By: #### 5 8410-2 #### BURAK DUMONT ([id number]) [facility] [address] [place] [address] 95120 Platelets (Bld) [#/Vol] 197 x10*3/uL Normal 150-450 [facility] Comment on above: Performed By: #### 5 8410-2 #### BURAK DUMONT ([id number]) [facility] [address] [place] [address] 91555 RBC (Bld) [#/Vol] 4.33 x10*6/uL Normal 4.00-5.20 [facility] Comment on above: Performed By: #### 5 8410-2 #### BURAK DUMONT ([id number]) [facility] [address] [place] [address] 01498 WBC (Bld) [#/Vol] 5.4 x10*3/uL Normal 4.4-11.3 [facility] Comment on above: Performed By: #### 5 8410-2 #### BURAK DUMONT ([id number]) [facility] [address] [place] [address] Thyrotropinon 10-12-2023 TSH Qn 3.56 m[IU]/L Normal 0.44-3.98 [facility] Comment on above: Order Comment: TSH t esting is performed using different testing methodology at [facility] than [facility]. Direct result comparisons should only be made within the same method. Performed By: #### 3 [id number] #### BURAK DUMONT ([id number]) [facility] [address] [place] [address] ABORH Verificationon 023 ABO and Rh group Nom (Bld) Blood group O Rh(D) positive [facility] ABO and Rh group Nom (Bld) ABO/Rh Verification [facility] Comment on above: Patient's ABO/Rh is verified. [facility] Arterial Lineon 05-19-2023 Luis M Garza MD 05/19/2023 12:27 PM Arterial Line Patient location: OR Start time: 05/19/2023 8:55 AM End time: 05/19/2023 9:00 AM Staff Anesthesiologist: Luis M Garza MD Performed by: Anesthesiologist Preanesthetic Checklist Completed: patient identified, pre-op evaluation, risks and benefits discussed, informed consent obtained, monitors and equipment checked, IV checked and timeout performed Procedure Indications: hemodynamic monitoring and frequent blood draws Final orientation: left Final location: radial Monitoring: head of partner development, pulse oximetry, heart rate and BP Sedation: general anesthesia (see MAR) Prep: ChloraPrep Local infiltration: lidocaine 1% Technique: landmarks (Palpation) Final needle: 22 G Final catheter: 20 G x 1 3/4'' Number of attempts: 1 Assessment: draws and flushes without difficulty Post procedure: taped, sterile dressing applied and EBL <10 mL Patient tolerance: patient tolerated the procedure well with no immediate complications [facility] ETT Airwayon 05-19-2023 Dmitri Perry CRNA 05/19/2023 9:05 AM ETT Airway Mask ventilation: ventilated by mask Technique: direct laryngoscopy and intubating stylet Type: cuffed oral Tube size: 7 mm Final laryngoscope: Santillan 2 Location: oral Final grade: 1 Insertion attempts: 1 Placement verification: end tidal CO2 and symmetrical chest wall movement Secured at: 21 cm (measured from the teeth) Secured by: tape Bite block: soft Lip/tooth/tongue trauma: no [facility] INR Coag (PPP) [Relative ely e]on 05-19-2023 Interpretation and review of laboratory results Normal [facility] PT Coag (PPP) [Time] 14.2 s [facility] During the induction phase of oral anticoagulation, the INR may not reflect the anticoagulation status of the patient. Therapeutic ranges for INR's are: Most clinical situations: INR 2.0-3.0 Mechanical Prosthetic Valve: INR 2.5-3.5 Critical: INR >5.0 [facility] Laboratory - Blood bankon ABO and Rh group Nom (Bld) 5100 [facility] ABO and Rh group Nom (Bld) Blood group O Rh(D) positive [facility] No Panel Informationon 05-19 Cross Match Compatible [facility] Product Code [id number] [facility] Product ID Red Blood Cells [facility] Status Info Ready for issue [facility] POC ABG SURGon 05-19-2023 Base Excess, Arterial 3 High -2 - 2 [place] [facility] Calcium.ionized (Bld) [Mass/Vol] 4.6 mg/dL 4.5 - 5.3 mg/dL [facility] CO2 (Bld) [Partial pressure] 40.8 mm[Hg] [facility] Glucose [Mass/Vol] 101 mg/dL High 65 - 99 mg/dL [facility] HCO3 (Bld) [Moles/Vol] 27.8 mmol/L High 22.0 - 26.0 mmol/L [facility] Hematocrit (Bld) [Volume fraction] 28 % Low 36 - 46 % [facility] Hemoglobin (Bld) [Mass/Vol] 9.5 g/dL Low 12.0 - 16.0 g/dL [facility] Interpretation and review of laboratory results Abnormal [facility] Oxygen (Bld) [Partial pressure] 327 mm[Hg] High [facility] pH (Bld) 7.44 [pH] 7.35 - 7.45 [facility] Potassium [Moles/Vol] 3.1 mmol/L Low 3.5 - 5.1 mmol/L [facility] Sodium [Moles/Vol] 142 mmol/L 135 - 145 mmol/L [facility] Base Excess, Arterial 6 High -2 - 2 [place] [facility] Calcium.ionized (Bld) [Mass/Vol] 4.5 mg/dL 4.5 - 5.3 mg/dL [facility] CO2 (Bld) [Partial pressure] 38.6 mm[Hg] [facility] Glucose [Mass/Vol] 101 mg/dL High 65 - 99 mg/dL [facility] HCO3 (Bld) [Moles/Vol] 29.7 mmol/L High 22.0 - 26.0 mmol/L [facility] Hematocrit (Bld) [Volume fraction] 30 % Low 36 - 46 % [facility] Hemoglobin (Bld) [Mass/Vol] 10.2 g/dL Low 12.0 - 16.0 g/dL [facility] Interpretation and review of laboratory results Abnormal [facility] Oxygen (Bld) [Partial pressure] High [facility] pH (Bld) 7.49 [pH] High 7.35 - 7.45 [facility] Potassium [Moles/Vol] 3.2 mmol/L Low 3.5 - 5.1 mmol/L [facility] Sodium [Moles/Vol] 140 mmol/L 135 - 145 mmol/L [facility] PT/INRon 05-19-2023 INR Coag (PPP) [Relative time] 1.1 {INR} 0.8 - 1.1 [facility] Prepare RBC: 2 Unitson 05-19 Product Code [id number] [facility] Unit Number [id number] [facility] Unit Number [id number] [facility] Unit Number [id number] [facility] Basic metabolic 2000 panelon 05-05-2023 Anion gap [Moles/Vol] 4 mmol/L Low 10 - 2 0 mmol/L [facility] Calcium [Mass/Vol] 9.0 mg/dL 8.4 - 10. 2 mg/dL [facility] Chloride [Moles/Vol] 105 mmol/L 98 - 10 8 mmol/L [facility] Creatinine [Mass/Vol] 0.66 mg/dL 0.60 - 1.20 mg/dL [facility] GFR/1.73 sq M.predicted CKD-EPI (S/P/Bld) [Vol rate/Area] 88 - PINF [facility] Comment on above: Estimated GFR was ca lculated using the 2020 CKD-EPI creatinine equation. Glucose [Mass/Vol] 88 mg/dL 65 - 99 mg/dL [facility] HCO3 [Moles/Vol] 33 mmol/L High 21 - 32 mmol/L [facility] Interpretation and review of laboratory results Abnormal [facility] Potassium [Moles/Vol] 3.7 mmol/L 3.5 - 5.1 mmol/L [facility] Sodium [Moles/Vol] 138 mmol/L 135 - 145 mmol/L [facility] Urea nitrogen [Mass/Vol] 15 mg/dL 8 - 25 mg/dL [facility] Urea nitrogen/Creatinine [Mass ratio] 22.7 mg/mg High 10.0 - 20.0 [facility] Laborator y Services has implemented the eGFR calculation approach that does not have a coefficient for race that conforms to the NKF-ASN Task Force Recommendations. [facility] CBC panel Auto (Bld)on 05-05 Erythrocyte distribution width (RBC) [Entitic vol] 15.9 % High 11.6 - 14.8 % [facility] Hematocrit (Bld) [Volume fraction] 38.7 % 36.0 - 46.0 % [facility] Hemoglobin (Bld) [Mass/Vol] 12.4 g/dL 12.0 - 16.0 g/dL [facility] Interpretation and review of laboratory results Abnormal [facility] MCH (RBC) [Entitic mass] 29.0 pg 26.0 - 34.0 pg [facility] MCHC (RBC) [Mass/Vol] 32.0 g/dL 31.0 - 37.0 g/dL [facility] MCV (RBC) [Entitic vol] 90.4 fL 80.0 - 100.0 fL [facility] Nucleated RBC (Bld) [#/Vol] 0.00 10*3/uL [facility] Nucleated RBC/100 WBC (Bld) [Ratio] 0.0 % [facility] Platelet mean volume (Bld) [Entitic vol] 10.5 fL 9.4 - 12.4 fL [facility] Platelets (Bld) [#/Vol] 159 10*3/uL [facility] RBC (Bld) [#/Vol] 4.28 10*6/uL [facility] ealth WBC (Bld) [#/Vol] 3.94 10*3/uL [facility] Draw 4 [place] Top Tubes (ARC)o n 05-05-2023 [facility] ECG 12 leadOrdered By: Nayeliwiliam Chapman on 04-11-2023 Atrial Rate [facility] P [place] [facility] P-R Interval [facility] Q-T Interval [facility] Q-T Interval (corrected) [facility] QRS Duration [facility] QTC Calculation (Bezet) [facility] R [place] [facility] T [place] [facility] Ventricular Rate [facility] Initial Visit (Gastroenterol ogy)on 03-28-2023 Initial Visit (Gastroenterology) Diagnoses/Problems Assessed Fecal occult blood test positive (792.1) (R19.5) Provider Impressions Alma states that she has blood work due next week. I asked her to forward that to me. If blood count is improving I will continue to watch. I do not believe repeat colonoscopy or endoscopy is necessary at this time is for hemoglobin is improving despite having occult positive stool. Patient is comfortable with plan. Chief Complaint NPV in office today for +FOBT recently but had a colonoscopy 06/16/2022 for family hx. Patient states she also is having some LUQ pain with some nausea/ dry heaving using TUMS for relief, does have a hemorrhoid. Had black stools for a couple months ( had change in blood thinner, and a sacral fracture- no fall) History of Present IllnessGrace was hospitalized in January of this year with acute anemia. At that time she was recently hospitalized for acute spinal fracture and was on high-dose NSAIDs. Endoscopy was performed while hospitalized and no discernible bleeding source could be identified. She did improved and her blood count since discharge last checked in February was up to 11.4. She is no longer having any melanic stools but did have an occult positive stool by her family doctor. Patient is on blood thinners. She denies any complaints is still having some back pain limiting activity, she does see her neurosurgeon on the and will have an update on any surgical procedures may improve her pain. At this time she is comfortable with how things are progressing. She did undergo her last complete colonoscopy in June 2022 with removal of small polyp within her cecum, pathology was not completed as no polyp tissue was sent to the lab. She does have a positive family history of colon cancer in her sister Review of Systems Constitutional: no fever, no chills, not feeling tired and no recent weight loss. ENT: no lymphadenopathy. Cardiovascular: no shortness of breath and no chest pain. Respiratory: no cough. Gastrointestinal: as noted in HPI. Musculoskeletal: no joint swelling. Integumentary: no rashes, no skin lesions and was no jaundiced. All other systems have been reviewed and are negative for complaint. 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) Diverticulitis, colon (562.11) (K57.32) Dyspepsia (536.8) (R10.13) Dysuria (788.1) (R30.0) Edema, unspecified type (782.3) (R60.9) Encounter for immunization (V03.89) (Z23) Excessive weight loss (783.21) (R63.4) Fecal occult blood test positive (792.1) (R19.5) Frequent UTI (599.0) (N39.0) Gait difficulty (781.2) (R26.9) Glossitis (529.0) (K14.0) Hydroureter on right (593.5) (N13.4) Hyperlipemia (272.4) (E78.5) Hypertension (401.9) (I10) Left upper quadrant abdominal tenderness without rebound tenderness (789.62) (R10.812) Lumbar neuritis (724.4) (M54.16) Lumbar spondylolysis (738.4) (M43.06) Lumbar stenosis with neurogenic claudication (724.03) (M48.062) Menopause (627.2) (Z78.0) Muscular deconditioning (781.99) (R29.898) Piriformis syndrome (355.0) (G57.00) Piriformis syndrome of right side (355.0) (G57.01) Retrolisthesis (738.4) (M43.10) Right foot pain (729.5) (M79.671) Sacral fracture (805.6) (S32.10XA) Sciatic nerve pain (724.3) (M54.30) Screening for breast cancer (V76.10) (Z12.39) Screening for colon cancer (V76.51) (Z12.11) Screening mammogram for breast cancer (V76.12) (Z12.31) Sore throat (462) (J02.9) Uterine cancer (179) (C55) Past Medical History Problems History of Screening for breast cancer (V76.10) (Z12.39) Resolved Date: 04 Aug 2020 Surgical History Problems History of Colonoscopy History of Diagnostic nerve block Managed By: Maria Teresa Epperson (Pain Medicine) Rt Piriformis/Sciatic Nerve Inj History of Excision of squamous cell carcinoma History of Intra-articular corticosteroid injection Managed By: Maria Teresa Epperson (Pain Medicine) Lt Trochanteric Bursa injection History of Knee replacement Bilateral knee replacements History of Shoulder surgery Family History Mother Family history of pancreatic cancer (V16.0) (Z80.0) Father Family history of cerebrovascular accident (CVA) (V17.1) (Z82.3) Family history of myocardial infarction (V17.3) (Z82.49) Child Family history of malignant neoplasm of female genital organ (V16.49) (Z80.49) Family history of multiple myeloma (V16.7) (Z80.7) Sister Family (more content not included)... Normal [facility] Established Visit (Pain Medi cine)on 03-24-2023 Established Visit (Pain Medicine) Diagnoses/Problems Lumbar neuritis (724.4) (M54.16) Lumbar spondylolysis (738.4) (M43.06) Lumbar stenosis with neurogenic claudication (724.03) (M48.062) Sciatic nerve pain (724.3) (M54.30) Sacral fracture (805.6) (S32.10XA) Provider Impressions Patient is an 82-year-old female with a past medical history significant for trochanteric bursitis, lumbar stenosis, lumbar neuritis, sacral insufficiency fracture, piriformis syndrome and sciatic nerve inflammation. She underwent left trochanteric bursa injection on 02/18/2023 followed by a right sciatic nerve injection done on 03/04/2023. At this time, from both injections she has obtained 80 to 85% relief. She is comfortable and happy. She is doing well. She is overall very pleased with how she is feeling. She is going to be continuing to see Dr. Ocampo for some other issues that she is having and at this time, she does not feel that she requires anything from our services. She is going to follow-up as needed. She will call our services should she require anything from us or require any repeat injections. Chief Complaint Pain FUV PATIENT IS FOLLOWING UP AFTER TWO INJECTIONS TODAY, WITH BOTH SHE REPORTS 80% IMPROVEMENT IN HER PAIN LEVELS AND FUNCTIONALITY/MOBILITY. SHE HAD A LEFT TROCHANTERIC BURSA INJECTION AND RIGHT SCIATIC NERVE INJECTION. SHE STATES SHE IS HAPPY WITH HER IMPROVEMENT. SHE STATES SHE COULD NOT EVEN WALK BEFORE SHE HAD THESE DONE, THEN SHE MOVED TO A WALKER AND NOW SHE IS AMBULATING WITH A CANE. REPORTS THAT SHE IS HAVING VERY LITTLE DISCOMFORT IN THOSE AREAS WELL HAVING SOME SORENESS IN THE LOW BACK. SHE STATES SHE IS HAVING SOME PAIN IN HER LEFT SIDE ABDOMEN AND WONDERS IF IT IS BOWEL ISSUES BUT IS SEEING DR. OCAMPO SOON. SHE DOES STRETCHES IN THE MORNINGS THAT SHE LEARNED IN PT- SHE STATES FOR THE LAST FEW DAYS SHE HAS NOT BEEN DOING THEM IN ORDER TO AVOID WORSENING THE PAIN IN HER ABDOMEN. SHE DOES NOT USE ICE/HEAT BECAUSE THEY MAKE HER PAIN WORSE. MARYLU SCORE 28. PAIN SCORE 6/10. Adult Risk Screening Living Will. Living Will: No living will on file. Healthcare POA: Health care proxy on file. Declaration of Mental Health Treatment: No mental health treatment on file. Reference Documentation See scanned note MARYLU . History of Present Illness On a scale of 0 to 10, the patient rates the pain at 6. Pain Location: Low Back Pain. Pain Quality: SORE. Timing/Duration: > 12 weeks duration. Improved Exacerbating Factors: standing, walking and weightbearing. Alleviating Factors: Assistive Devices, Exercise, Repositioning. Goals for Pain Management: MARYLU SCORE 28. Patient is an 82-year-old female who presents today for follow-up after undergoing a left trochanteric bursa injection. This was done on 02/18/2023 and has given her 80 to 85% relief. She then underwent a right sciatic nerve injection done on 03/04/2023 that has also given her 80 to 85% relief. At this time, she states that she is comfortable and happy. She is doing well. She has some very minimal lower back pain that she does not feel needs to have anything done for it. She also has some abdominal discomfort but she is seeing Dr. Ocampo for this. She has her follow-up with him next week for this discomfort. She states at this time, in regards to our services she is doing well. She is comfortable and happy. She is out of the wheelchair. She is very happy. She is walking with a cane. She states that when she is home she does not even always need the cane. She also shared with me that she is getting ready to see the surgeon for the sacral fracture. She feels that things have significantly improved though and she does not feel that surgery is something that she is going to be pursuing but she is going to go to the appointment to get their opinion. Review of Systems 13 systems all normal except noted in HP. Active Problems Acute UTI (599.0) (N39.0) AF (paroxysmal atrial fibrillation) (427.31) (I48.0) Hanley's esophagus (530.85) (K22.70) Cancer of skin, squamous cell (173.92) (C44.92) Chronic bilateral low back pain without sciatica (724.2,338.29) (M54.50,G89.29) Chronic liver disease and cirrhosis (571.9,571.5) (K74.60,K76.9) Class 1 obesity with body mass index (BMI) of 34.0 to 34.9 in adult (278.00,V85.34) (E66.9,Z68.34) Colon polyps (211.3) (K63.5) Compensated hypothyroidism (244.9) (E03.9) Constipation (564.00) (K59.00) DDD (degenerative disc disease), 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) Diverticulitis, colon (562.11) (K57.32) Dyspepsia (536.8) (R10.13) Dysuria (788.1) (R30.0) Edema, unspecified type (782.3) (R60.9) Encounter for immunization (V03.89) (Z23) Excessive weight loss (783.21) (R63.4) Fecal occult blood test positive (792.1) (R19.5) Frequent UTI (599.0) (N39.0) Gait difficulty (781.2) (R26.9) Glossitis (529.0) (K14.0) Hydroureter on right (593.5) (N13.4) Hyperlipemia (272.4) (E78.5) Hypertension (401.9) (I10) Left upper quadrant abdominal tenderness without rebo (more content not included)... [facility] Clinical Event Noteon 2022 Clinical Event Note Clinical Event: Clinical Event Note: Details UPDATED HISTORY AND PHYSICAL CHIEF COMPLAINT: Right leg pain HISTORY OF PRESENT ILLNESS: Right low back and leg pain PAST MEDICAL HISTORY, SOCIAL HISTORY, FAMILY HISTORY, MEDICATIONS, AND ALLERGIES: past medical, social and family history, along with medications and allergies is available and written chart was reviewed. REVIEW OF SYSTEMS: Ten system is also available in the written chart. PHYSICAL EXAMINATION: GENERAL: He is a pleasant male. VITAL SIGNS: Include blood pressure, heart rate and respirations are stable. HEENT: Head is normocephalic. External ears are normal. NECK: Supple. No lesions. CARDIOVASCULAR: No signs of poor perfusion. No peripheral edema. LUNGS: Breathing is unlabored. There is no wheezing present. ABDOMEN: Abdomen is soft, nondistended. MUSCULOSKELETAL: Unchanged. NEUROLOGIC: Unchanged. PSYCHIATRIC: Affect is appropriate. He is alert and oriented. ASSESSMENT: Right piriformis syndrome PLAN: Right sciatic nerve injection Electronic Signatures: Maria Teresa Epperson) (Signed 04-Mar-2023 12:27) Authored: Clinical Event Note Last Updated: 04-Mar-2023 12:27 by Maria Teresa Epperson) [facility] [place] 03-04 Please click on the link to view the study images Normal [facility] Work Phone: RFA Unspecified body region Limited Views for therapy or embolization or infusion W contrast via existing catheteron 03-04-2023 [employer] LEGACY CONVERSIONS Conversion, [employer] logy - 04/15/2023 [facility] Work Phone: Radiology Study observation (narrative) [facility] Work Phone: RFA Unspecified body region Limited Views for therapy or embolization or infusion W contrast via existing catheterOrdered By: Ge Conversion on 03-04-2023 [facility] Clinical Event Noteon 2022 Clinical Event Note Clinical Event: Clinical Event Note: Details UPDATED HISTORY AND PHYSICAL CHIEF COMPLAINT: Left hip pain HISTORY OF PRESENT ILLNESS: The patient is a 82-year-old female who we initially saw for right-sided pain due to a sacral fracture/sciatica. Those symptoms have resolved. She has a long history of pain in the left hip and has received trochanteric bursa injections on the left side in the past. She has not had an injection in over 4 months. The previous injections resulted in 60% pain relief and functional improvement. She would like to proceed with a left-sided injection today. She denies new neurologic symptoms or issues with bladder or bowel control PAST MEDICAL HISTORY, SOCIAL HISTORY, FAMILY HISTORY, MEDICATIONS, AND ALLERGIES: Her past medical, social and family history, along with medications and allergies is available and written chart was reviewed. REVIEW OF SYSTEMS: Ten system is also available in the written chart. PHYSICAL EXAMINATION: GENERAL: She is a pleasant female. VITAL SIGNS: Include blood pressure, heart rate and respirations are stable. HEENT: Head is normocephalic. External ears are normal. NECK: Supple. No lesions. CARDIOVASCULAR: No signs of poor perfusion. No peripheral edema. LUNGS: Breathing is unlabored. There is no wheezing present. ABDOMEN: Abdomen is soft, nondistended. MUSCULOSKELETAL: Severe focal tenderness over the left greater trochanter NEUROLOGIC: Unchanged. PSYCHIATRIC: Affect is appropriate. She is alert and oriented. ASSESSMENT: Left-sided trochanteric bursitis PLAN: Left-sided trochanteric bursa injection Electronic Signatures: Maria Teresa Epperson) (Signed 18-Feb-2023 09:49) Authored: Clinical Event Note Last Updated: 18-Feb-2023 09:49 by Maria Teresa Epperson) Normal [facility] RFA Unspecified body region Limited Views for therapy or embolization or infusion W contrast via existing catheteron 02-18-2023 [employer] CONVERSIONS Conversion, [employer] Radio logy - 04/15/2023 [facility] Work Phone: Radiology Study observation (narrative) [facility] Work Phone: RFA Unspecified body region Limited Views for therapy or embolization or infusion W contrast via existing catheterOrdered By: Ge Conversion on 02-18-2023 [facility] CBCon 02-17-2023 Erythrocyte distribution width (RBC) [Ratio] 15.4 % High 11.5 - 14.5 [facility] Comment on above: Performed By: #### B NP2 #### [address] [address] Hematocrit (Bld) [Volume fraction] 36.5 % Normal 36.0 - 46.0 [facility] Comment on above: Performed By: #### B NP2 #### [address] [address] Hemoglobin (Bld) [Mass/Vol] 11.5 g/dL Low 12.0 - 16.0 [facility] Comment on above: Performed By: #### B NP2 #### [address] [address] MCHC (RBC) [Mass/Vol] 31.5 g/dL Low 32.0 - 36.0 [facility] Comment on above: Performed By: #### B NP2 #### [place] [id number] MCV (RBC) [Entitic vol] 93 fL Normal 80 - 100 [facility] Comment on above: Performed By: #### B NP2 #### [place] [id number] Platelets (Bld) [#/Vol] 204 10*3/uL Normal 150 - 450 [facility] Comment on above: Performed By: #### B NP2 #### [place] [address] RBC 3.93 x10E12/L Low 4.00 - 5.20 [facility] Comment on above: Performed By: #### B NP2 #### [place] [address] WBC (Bld) [#/Vol] 5.4 10*3/uL Normal 4.4 - 11.3 [facility] Comment on above: Performed By: #### B NP2 #### [place] [address] Lab Specimen Source Normal [facility] Comment on above: Performed By: #### B NP2 #### [place] [address] Performed By: #### T RPHS #### [place] [id number] CBC panel Auto (Bld)on 02-17 Erythrocyte distribution width (RBC) [Ratio] 15.4 % High 11.5 - 14.5 % [facility] Hematocrit (Bld) [Volume fraction] 36.5 % 36.0 - 46.0 % [facility] Hemoglobin (Bld) [Mass/Vol] 11.5 g/dL Low 12.0 - 16.0 g/dL [facility] Interpretation and review of laboratory results Abnormal [facility] MCHC (RBC) [Mass/Vol] 31.5 g/dL Low 32.0 - 36.0 g/dL [facility] MCV (RBC) [Entitic vol] 93 fL 80 - 100 fL [facility] Platelets (Bld) [#/Vol] 204 10*3/uL [facility] RBC (Bld) [#/Vol] 3.93 10*6/uL [facility] WBC (Bld) [#/Vol] 5.4 10*3/uL [facility] COMPREHENSIVE PANELon 2022 Albumin [Mass/Vol] 3.4 g/dL Normal 3.4 - 5.0 [facility] Comment on above: Performed By: #### T RPHS #### [address] [address] ALP [Catalytic activity/Vol] 172 U/L High 33 - 136 [facility] Comment on above: Performed By: #### T RPHS #### [address] [address] ALT [Catalytic activity/Vol] 7 U/L Normal 7 - 45 [facility] Comment on above: Result Comment: Cielo ents treated with Sulfasalazine may generate falsely decreased results for ALT. Performed By: #### T RPHS #### [address] [address] Anion gap [Moles/Vol] 13 mmol/L Normal 10 - 20 [facility] Comment on above: Performed By: #### T RPHS #### [address] [address] AST [Catalytic activity/Vol] 30 U/L Normal 9 - 39 [facility] Comment on above: Performed By: #### T RPHS #### [address] [address] Bilirubin [Mass/Vol] 0.8 mg/dL Normal 0.0 - 1.2 [facility] Comment on above: Performed By: #### T RPHS #### [address] [address] Calcium [Mass/Vol] 8.8 mg/dL Normal 8.6 - 10.3 [facility] Comment on above: Performed By: #### T RPHS #### [address] [address] Chloride [Moles/Vol] 98 mmol/L Normal 98 - 107 [facility] Comment on above: Performed By: #### T RPHS #### [address] [address] Creatinine [Mass/Vol] 0.59 mg/dL Normal 0.50 - 1.05 [facility] Comment on above: Performed By: #### T RPHS #### [address] [address] GFR/1.73 sq M.predicted among non-blacks MDRD (S/P/Bld) [Vol rate/Area] 90 mL/min/{1.73_m2} Normal >90 [facility] Comment on above: Result Comment: CALC ULATIONS OF ESTIMATED GFR ARE PERFORMED USING THE 2020 CKD-EPI STUDY REFIT EQUATION WITHOUT THE RACE VARIABLE FOR THE IDMS-TRACEABLE CREATININE METHODS. https://jasn.asnjournals.org/content//ASN.96460 34939 Performed By: #### T RPHS #### [address] [address] Glucose [Mass/Vol] 80 mg/dL Normal 74 - 99 [facility] Comment on above: Performed By: #### T RPHS #### [address] [address] HCO3 (Bld) [Moles/Vol] 31 mmol/L Normal 21 - 32 [facility] Comment on above: Performed By: #### T RPHS #### [address] [address] Potassium [Moles/Vol] 3.7 mmol/L Normal 3.5 - 5.3 [facility] Comment on above: Performed By: #### T RPHS #### [address] [address] Protein [Mass/Vol] 6.2 g/dL Low 6.4 - 8.2 [facility] Comment on above: Performed By: #### T RPHS #### [address] [address] Sodium [Moles/Vol] 138 mmol/L Normal 136 - 145 [facility] Comment on above: Performed By: #### T [facility] #### [address] [address] Urea nitrogen [Mass/Vol] 12 mg/dL Normal 6 - 23 [facility] Comment on above: Performed By: #### T [facility] #### [address] [address] CBCon 01-28-2023 Erythrocyte distribution width (RBC) [Ratio] 16.4 % High 11.5 - 14.5 [facility] Comment on above: Performed By: #### M G #### [address] [address] Hematocrit (Bld) [Volume fraction] 30.6 % Low 36.0 - 46.0 [facility] Comment on above: Performed By: #### M G #### [place] [id number] Hemoglobin (Bld) [Mass/Vol] 9.2 g/dL Low 12.0 - 16.0 [facility] Comment on above: Performed By: #### M G #### [address] [address] MCHC (RBC) [Mass/Vol] 30.1 g/dL Low 32.0 - 36.0 [facility] Comment on above: Performed By: #### M G #### [address] [address] MCV (RBC) [Entitic vol] 95 fL Normal 80 - 100 [facility] Comment on above: Performed By: #### M G #### [address] [address] Platelets (Bld) [#/Vol] 215 10*3/uL Normal 150 - 450 [facility] Comment on above: Performed By: #### M G #### [address] [address] RBC 3.22 x10E12/L Low 4.00 - 5.20 [facility] Comment on above: Performed By: #### M G #### [employer] [address] WBC (Bld) [#/Vol] 4.9 10*3/uL Normal 4.4 - 11.3 [facility] Comment on above: Performed By: #### M G #### [address] [address] COMPREHENSIVE PANELon 2022 Albumin [Mass/Vol] 3.2 g/dL Low 3.4 - 5.0 [facility] Comment on above: Performed By: #### C MP #### [address] [address] ALP [Catalytic activity/Vol] 156 U/L High 33 - 136 [facility] Comment on above: Performed By: #### C MP #### [address] [address] ALT [Catalytic activity/Vol] 6 U/L Low 7 - 45 [facility] Comment on above: Result Comment: Cielo ents treated with Sulfasalazine may generate falsely decreased results for ALT. Performed By: #### C MP #### [address] [address] Anion gap [Moles/Vol] 11 mmol/L Normal 10 - 20 [facility] Comment on above: Performed By: #### C MP #### [address] [address] AST [Catalytic activity/Vol] 22 U/L Normal 9 - 39 [facility] Comment on above: Performed By: #### C MP #### [address] [address] Bilirubin [Mass/Vol] 0.7 mg/dL Normal 0.0 - 1.2 [facility] Comment on above: Performed By: #### C MP #### [address] [address] Calcium [Mass/Vol] 8.7 mg/dL Normal 8.6 - 10.3 [facility] Comment on above: Performed By: #### C MP #### [address] [address] Chloride [Moles/Vol] 100 mmol/L Normal 98 - 107 [facility] Comment on above: Performed By: #### C MP #### [address] [address] Creatinine [Mass/Vol] 0.56 mg/dL Normal 0.50 - 1.05 [facility] Comment on above: Performed By: #### C MP #### [address] [address] eGFR FEMALE >90 Normal >90 [facility] Comment on above: Result Comment: CALC ULATIONS OF ESTIMATED GFR ARE PERFORMED USING THE 2020 CKD-EPI STUDY REFIT EQUATION WITHOUT THE RACE VARIABLE FOR THE IDMS-TRACEABLE CREATININE METHODS. https://jasn.asnjournals.org/content/early/ASN.36768 [address]4022 Performed By: #### C MP #### [address] [address] Glucose [Mass/Vol] 71 mg/dL Low 74 - 99 [facility] Comment on above: Performed By: #### C MP #### [address] [address] HCO3 (Bld) [Moles/Vol] 32 mmol/L Normal 21 - 32 [facility] Comment on above: Performed By: #### C MP #### [address] [address] Potassium [Moles/Vol] 4.0 mmol/L Normal 3.5 - 5.3 [facility] Comment on above: Performed By: #### C MP #### [address] [address] Protein [Mass/Vol] 5.8 g/dL Low 6.4 - 8.2 [facility] Comment on above: Performed By: #### C MP #### [address] [address] Sodium [Moles/Vol] 139 mmol/L Normal 136 - 145 [facility] Comment on above: Performed By: #### C MP #### [address] [address] Urea nitrogen [Mass/Vol] 10 mg/dL Normal 6 - 23 [facility] Comment on above: Performed By: #### C MP #### [place] [address] Lab Specimen Source Normal [facility] Comment on above: Performed By: #### C MP #### [place] [address] Performed By: #### M G #### [place] [address] Clinical Note - Pharmacy v2- Medication Educationon 01-24-2023 Clinical Note - Pharmacy v2-Medication Education Clinical Note - Pharmacy v2: Discharge Meds: Document TopicDischarge Med Counseling Time [id number] minutes Prescription [employer] Medications Home Medications Review Status for Reconciliation: Complete Med Status: Patient Currently Takes Medications Drug Name: Amitiza 8 mcg oral capsule Instructions: 1 cap(s) orally 2 times a day Drug Name: atorvastatin 10 mg oral tablet Instructions: 1 tab(s) orally once a day Drug Name: Cartia XT 240 mg/24 hours oral capsule, extended release Instructions: 1 cap(s) orally once a day Drug Name: Dexilant 60 mg oral delayed release capsule Instructions: 1 cap(s) orally once a day Drug Name: traMADol 50 mg oral tablet Instructions: 1 tab(s) orally every 6 hours Drug Name: levothyroxine 50 mcg (0.05 mg) oral capsule Instructions: 1 cap(s) orally once a day Drug Name: aspirin 81 mg oral tablet Instructions: 1 tab(s) orally once a day Drug Name: furosemide 40 mg oral tablet Instructions: 2 tab(s) orally once a day Drug Name: MiraLax oral powder for reconstitution Instructions: 17 gram(s) orally once a day Drug Name: fluocinolone 0.01% otic solution Instructions: 5 drop(s) to each affected ear 2 times a day, As Needed Drug Name: Macrobid 100 mg oral capsule Instructions: 1 cap(s) orally 2 times a day, As Needed Drug Name: Fish Oil 1000 mg oral capsule Instructions: 1 cap(s) orally once a day Drug Name: propafenone 150 mg oral tablet Instructions: 1 tab(s) orally 2 times a day Drug Name: Eliquis 5 mg oral tablet Instructions: 0.5 tab(s) orally 2 times a day Drug Name: FeroSul 325 mg (65 mg elemental iron) oral tablet Instructions: 1 tab(s) orally 2 times a day Meds Declined by Patient/Familyferrous sulfate Reasonover the counter medication Education: Document TopicMedication Education Medication- all medications including ferrous sulfate Is This Intervention Medication Reconciliation Relatedno Time [id number] minutes TopicADR counseling; alternative drug; alternative method of administration; dosage, frequency, storage; medication indication; medication information about proper dosage, indications, possible ADRs; medication interactions; missed dose explanation; patient counseling-medications Learnerpatient Barriersnone Methodverbal; written Outcome2=meets goals/outcomes Additional NotesI met with and discussed all home-going medications with the patient. We discussed the following brand/generic name, reason for use, last dose taken, when to take next dose and any potential side effects. Written literature was provided for each medication and sent home with the patient. She was to start taking oral ferrous sulfate. Warned her of constipation, stool color change, potential for GI upset (take with food). We discussed whether to continue her current anticoagulation. She spoke directly with her PCP (they called during the discharge) and requested that she hold her Eliquis / ASA until seen in the office. Patient had opportunity to ask questions. Left contact information for patient follow up if needed. Will purchase OTC ferrous sulfate from her pharmacy. Allergy: Allergies Summary Allergy Allergen: codeine Type: Drug Reaction: Other (Mild) Itching Intolerance Allergen: Zestoretic Type: Drug Reaction: GI Upset Nausea/Vomiting Allergen: Lodine Type: Drug Reaction: Nausea/Vomiting Electronic Signatures: Dexter Garcia (FORMERLY [facility]) (Signed 24-Jan-2023 08:35) Authored: Discharge Meds, Education, Allergy Last Updated: 24-Jan-2023 08:35 by Dexter Garcia (FORMERLY [facility]) Normal [facility] CBCon 01-21-2023 Erythrocyte distribution width (RBC) [Ratio] 16.8 % High 11.5 - 14.5 [facility] Comment on above: Performed By: #### C BC #### [place] [address] Hematocrit (Bld) [Volume fraction] 25.9 % Low 36.0 - 46.0 [facility] Comment on above: Performed By: #### C BC #### [address] [address] Hemoglobin (Bld) [Mass/Vol] 8.5 g/dL Low 12.0 - 16.0 [facility] Comment on above: Performed By: #### C BC #### [address] [address] MCHC (RBC) [Mass/Vol] 32.8 g/dL Normal 32.0 - 36.0 [facility] Comment on above: Performed By: #### C BC #### [address] [address] MCV (RBC) [Entitic vol] 92 fL Normal 80 - 100 [facility] Comment on above: Performed By: #### C BC #### [address] [address] Platelets (Bld) [#/Vol] 172 10*3/uL Normal 150 - 450 [facility] Comment on above: Performed By: #### C BC #### [address] [address] RBC 2.82 x10E12/L Low 4.00 - 5.20 [facility] Comment on above: Performed By: #### C BC #### [address] [address] WBC (Bld) [#/Vol] 5.3 10*3/uL Normal 4.4 - 11.3 [facility] Comment on above: Performed By: #### C BC #### [address] [address] Discharge [id number] Discharge Profile2 Discharge Orders: Anticipated Discharge Date: Anticipated Discharge [id number] Problem List: Additional Dx: Anemia: Catalog Name: Anemia, unspecified Black stools: Catalog Name: [facility] Providers: Provider RoleProvider Name Shahid Burroughs Dale R DNAR: Code Status at Discharge: Full Code Diet: Dietlow fat, low sodium Additional Orders: Additional Instructions NEW: 1. Ferrous sulfate 325 mg 1 p.o. twice daily CHANGE: 1. Eliquis 5 mg half a tab twice daily Follow-up with Dr. Woodruff 1 week Follow-up with Dr. Lal's office in 1 week; CBC prior Hospital Course (Home Care/Gold Form): Hospital Course: Hospital Course: include significant abnormal lab values Please refer to history and physical details of admission. Patient presented to the emergency room January 17 with black stools. About a month ago she states she developed a spine fracture lower back and right hip towards the sacrum area. She has been in significant pain since but she denies taking any [id number] pain meds. She was started on Eliquis after being denied Pradaxa by her insurance and she says she started having soft black stools. Her PCP Dr. Woodruff did labs on her and a fecal occult Was positive. The last 2 days prior to presentation she became more weak even using her walker. She states she will maybe walk 10 steps and she feels like she is going to pass out although she never did. No chest pains or shortness of breath and no headaches or visual disturbances and no dizziness. No abdominal pain. She came into the ED to be evaluated. In the ER vital signs were stable and she is afebrile. Her H&H is 8.7 and 26.8 (September 09, 2022 her hemoglobin was 13.6). MCV and MCHC are normal. Platelets are 202,000. She is COVID-19 negative. BUN is 32 with a creatinine of 0.56 and the rest of her labs are unremarkable. Chest x-ray is nonacute and CT of the abdomen pelvis with IV contrast shows few fluid-filled dilated small bowel loops in the mid abdomen which are nonspecific and be related to mild enteritis versus low-grade partial bowel obstruction and no definite CT evidence of transition point. In the emergency room she received a liter of fluid of normal saline and placed on the medical service for GI bleed and anemia. While waiting for bed ER got her to the bedside commode and she had a syncopal episode for about 30 seconds. When she came to she was awake and alert and aware of her surroundings. On the medical service the patient was admitted for blood in her stool which sounds like melena and anemia along with syncope. She was placed on telemetry and I consulted GI. We held her Eliquis. She underwent an EGD on the and it showed hematin but no acute bleed. We held her Eliquis throughout her hospitalization. It was recommended to maybe go to 2-1/2 mg instead of 5 mg twice daily. 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 She requested 1 unit of packed red blood cells. Her hemoglobin was 7.4 but she was symptomatic with some weakness and mild shortness of breath. We gave her 1 unit of packed red blood cells and this morning her hemoglobin is 8.5. She is ready for discharge. Provider FINAL REVIEW of Orders: Final Review: Final Review of Medication Reconciliation and Orders Completedby Physician Reviewing ProviderShahid Colunga DO at 21-Jan-2023 11:37:54 Appointments: Follow-Up Appointment 01: Physician/Dept/ServiceDr Kamilla Woodruff Reason for ReferralHospital Follow-up Call to Schedule in1 week [id number] [place] [address] Phone [phone] CommentsPlease call and schedule an appointment within 1 week of your Hospital Discharge Follow-Up Appointment 02: Physician/Dept/ServiceDr O[place]mo Reason for ReferralHospital Follow-up Call to Schedule in1 week [address] [place] [address] Phone [phone] CommentsPlease call and schedule an appointment within 1 week of your Hospital Discharge Electronic Signatures: Flori Thornton ([employer]) (Signed 21-Jan-2023 12:03) Authored: Discharge Orders, Appointments Shahid Colunga () (Signed 21-Jan-2023 11:37) Authored: Discharge Orders, Hospital Course (Home Care/Gold Form), Provider FINAL REVIEW of Orders, Appointments, Gold Form - [employer] Helper Summary Last Updated: 21-Jan-2023 12:03 by Flori Thornton ([employer]) [facility] Order Reconciliationon 01-21 Order Reconciliation Page 1 Discharge Reconciliation Document Reconciliation Type: Discharge requested on behalf of Shahid Colunga (Physician) done by Shahid Colunga () Discharge - Reconciliation: 21-Jan-2023 10:54 by: Shahid Colunga (DO) Home Medications EnteredHOME MEDICATIONS AT DISCHARGE DateReconciliation Comment/ Additional Information Amitiza 8 mcg oral capsule 1 cap(s) orally 2 times a day 15-Jun-2022 09:08 Amitiza 8 mcg oral capsule 1 cap(s) orally 2 times a day 15-Jun-2022 09:08 Amitiza 8 mcg oral capsule is continued as Amitiza 8 mcg oral capsule aspirin 81 mg oral tablet 1 tab(s) orally once a day 17-Jan-2023 12:18 aspirin 81 mg oral tablet 1 tab(s) orally once a day 17-Jan-2023 12:18 aspirin 81 mg oral tablet is continued as aspirin 81 mg oral tablet atorvastatin 10 mg oral tablet 1 tab(s) orally once a day 15-Jun-2022 09:08 atorvastatin 10 mg oral tablet 1 tab(s) orally once a day 15-Jun-2022 09:08 atorvastatin 10 mg oral tablet is continued as atorvastatin 10 mg oral tablet Cartia XT 240 mg/24 hours oral capsule, extended release 1 cap(s) orally once a day 15-Jun-2022 09:09 Cartia XT 240 mg/24 hours oral capsule, extended release 1 cap(s) orally once a day 15-Jun-2022 09:09 Cartia XT 240 mg/24 hours oral capsule, extended release is continued as Cartia XT 240 mg/24 hours oral capsule, extended release Dexilant 60 mg oral delayed release capsule 1 cap(s) orally once a day 15-Jun-2022 09:09 Dexilant 60 mg oral delayed release capsule 1 cap(s) orally once a day 15-Jun-2022 09:09 Dexilant 60 mg oral delayed release capsule is continued as Dexilant 60 mg oral delayed release capsule Eliquis 5 mg oral tablet 1 tab(s) orally 2 times a day 17-Jan-2023 12:23 Eliquis 5 mg oral tablet 0.5 tab(s) orally 2 times a day Discontinued; Copy/Discontinue Eliquis 5 mg oral tablet is continued and modified Fish Oil 1000 mg oral capsule 1 cap(s) orally once a day 17-Jan-2023 12:23 Fish Oil 1000 mg oral capsule 1 cap(s) orally once a day 17-Jan-2023 12:23 Fish Oil 1000 mg oral capsule is continued as Fish Oil 1000 mg oral capsule fluocinolone 0.01% otic solution 5 drop(s) to each affected ear 2 times a day, As Needed 17-Jan-2023 12:21 fluocinolone 0.01% otic solution 5 drop(s) to each affected ear 2 times a day, As Needed 17-Jan-2023 12:21 fluocinolone 0.01% otic solution is continued as fluocinolone 0.01% otic solution furosemide 40 mg oral tablet 2 tab(s) orally once a day 17-Jan-2023 12:19 furosemide 40 mg oral tablet 2 tab(s) orally once a day 17-Jan-2023 12:19 furosemide 40 mg oral tablet is continued as furosemide 40 mg oral tablet levothyroxine 50 mcg (0.05 mg) oral capsule 1 cap(s) orally once a day 16-Jun-2022 11:44 levothyroxine 50 mcg (0.05 mg) oral capsule 1 cap(s) orally once a day 16-Jun-2022 11:44 levothyroxine 50 mcg (0.05 mg) oral capsule is continued as levothyroxine 50 mcg (0.05 mg) oral capsule Macrobid 100 mg oral capsule 1 cap(s) orally 2 times a day, As Needed 17-Jan-2023 12:21 Macrobid 100 mg oral capsule 1 cap(s) orally 2 times a day, As Needed 17-Jan-2023 12:21 Macrobid 100 mg oral capsule is continued as Macrobid 100 mg oral capsule MiraLax oral powder for reconstitution 17 gram(s) orally once a day 17-Jan-2023 12:20 MiraLax oral powder for reconstitution 17 gram(s) orally once a day 17-Jan-2023 12:20 MiraLax oral powder for reconstitution is continued as MiraLax oral powder for reconstitution propafenone 150 mg oral tablet 1 tab(s) orally 2 times a day 17-Jan-2023 15:26 propafenone 150 mg oral tablet 1 tab(s) orally 2 times a day 17-Jan-2023 15:26 propafenone 150 mg oral tablet is continued as propafenone 150 mg oral tablet traMADol 50 mg oral tablet 1 tab(s) orally every 6 hours 15-Jun-2022 09:10 traMADol 50 mg oral tablet 1 tab(s) orally every 6 hours 15-Jun-2022 09:10 traMADol 50 mg oral tablet is continued as traMADol 50 mg oral tablet Current OrdersDateHOME MEDICATIONS AT DISCHARGE DateReconciliation Comment/ Additional Information Acetaminophen Tablet (TYLENOL)DOSE = 650 mg Oral Every 4 Hours, PRN Pain - Mild (1-3) 17-Jan-2023 18:04 Acetaminophen is not required Acetaminophen Tablet (TYLENOL)DOSE = 650 mg Oral Every 4 Hours, PRN Temp Greater Than or Equal to 38.0 C 17-Jan-2023 18:04 Acetaminophen is not required Atorvastatin Tablet (LIPITOR)DOSE = 10 mg Oral Daily 17-Jan-2023 17:57 Atorvastatin is not required dilTIAZem (CARDIZEM) Immediate Release TabletDOSE = 90 mg Oral Every 6 Hours 19-Jan-2023 20:42 dilTIAZem (CARDIZEM) Immediate Release is not required Ferrous Sulfate Tablet (FEOSOL)DOSE = 325 mg Oral 2 Times a Day 20-Jan-2023 12:49 FeroSul 325 mg (65 mg elemental iron) oral tablet 1 tab(s) orally 2 times a day 21-Jan-2023 10:52 Prescription is created for FeroSul 325 mg (65 mg elemental iron) oral tablet Furosemide TabletDOSE = 80 mg Oral Daily 17-Jan-2023 17:57 Furosemide is not required Levothyroxine Tablet (SY (more content not included)... Normal [facility] ABO/RH GROUP TESTon 01-21-20 ABO TYPE O Normal [facility] Comment on above: Performed By: #### B NP2 #### [place] [address] RH TYPE Positive Normal [facility] Comment on above: Performed By: #### B NP2 #### [place] [address] CBCon 01-20-2023 Erythrocyte distribution width (RBC) [Ratio] 16.2 % High 11.5 - 14.5 [facility] Comment on above: Performed By: #### B NP2 #### [place] [address] Hematocrit (Bld) [Volume fraction] 23.8 % Low 36.0 - 46.0 [facility] Comment on above: Performed By: #### B NP2 #### [address] [address] Hemoglobin (Bld) [Mass/Vol] 7.4 g/dL Low 12.0 - 16.0 [facility] Comment on above: Performed By: #### B NP2 #### [place] [id number] MCHC (RBC) [Mass/Vol] 31.1 g/dL Low 32.0 - 36.0 [facility] Comment on above: Performed By: #### B NP2 #### [place] [id number] MCV (RBC) [Entitic vol] 95 fL Normal 80 - 100 [facility] Comment on above: Performed By: #### B NP2 #### [place] [id number] Platelets (Bld) [#/Vol] 185 10*3/uL Normal 150 - 450 [facility] Comment on above: Performed By: #### B NP2 #### [place] [id number] RBC 2.50 x10E12/L Low 4.00 - 5.20 [facility] Comment on above: Performed By: #### B NP2 #### [address] [address] WBC (Bld) [#/Vol] 5.0 10*3/uL Normal 4.4 - 11.3 [facility] Comment on above: Performed By: #### B NP2 #### [address] [address] Daily Progress Note-Medicine on 01-20-2023 Daily Progress Note-Medicine Service: Medicine Review of Systems: Review of Systems: Constitutional: POSITIVE: Malaise; NEGATIVE: Fever, Chills Eyes: NEGATIVE: Blurry Vision, Drainage, Diploplia, Redness, Vision Loss/ Change ENMT: NEGATIVE: Nasal Discharge, Nasal Congestion, Ear Pain, Mouth Pain, Throat Pain Respiratory: NEGATIVE: Dry Cough, Productive Cough, Hemoptysis, Wheezing, Shortness of Breath Cardiac: NEGATIVE: Chest Pain, Dyspnea on Exertion, Orthopnea, Palpitations, Syncope Gastrointestinal: NEGATIVE: Nausea, Vomiting, Diarrhea, Constipation, Abdominal Pain Genitourinary: NEGATIVE: Discharge, Dysuria, Flank Pain, Frequency, Hematuria Musculoskeletal: NEGATIVE: Decreased ROM, Pain, Swelling, Stiffness, Weakness Neurological: NEGATIVE: Dizziness, Confusion, Headache, Seizures, Syncope Psychiatric: NEGATIVE: Mood Changes, Anxiety Subjective Data: ALMA ECHEVERRIA is a 82 year old Female who is Hospital Day # 4 and POD #1 for 1. EGD;2. ;3. ;4. ;5. 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 [facility] and she says I need to be at the top of my game No shortness of breath and she is having bowel movements but she does note color radius No chest pains or any other complaints Objective Data: Objective Information: T PRBPMAPSpO2 [id number]% Date/Time01/20 11: 11: 7:344 11: 16:40413 11:27 Range(36.2C - 36.8C ) (65 - 73 ) (12 - 18 ) (103 - 117 )/ (54 - 71 ) (80 - 87 ) (90% - 96% ) Pain reported at 01/20 10:01: 7 = Severe Physical Exam by System: Constitutional: Awake and alert; oriented x3 with no apparent distress or respiratory distress; pale Head/Neck: Neck supple with no palpable lymphadenopathy, bruits or masses; trachea midline Respiratory/Thorax: Clear to auscultation bilaterally no active wheezes or rhonchi noted Cardiovascular: Irregularly irregular; normal S1-S2 with no murmur; no edema and 2+ pulses bilaterally Gastrointestinal: Soft, nontender, nondistended, positive bowel sounds Neurological: Nonfocal; cranial nerves II through XII appear intact Psychological: Pleasant affect Recent Lab Results: Results: I have reviewed these laboratory results: Complete Blood Count 20-Jan-2023 05:15:00 ResultValue White Blood Cell Count 5.0 Red Blood Cell Count 2.50 L HGB 7.4 L HCT 23.8 L MCV 95 MCHC 31.1 L PLT 185 RDW-CV 16.2 H Assessment and Plan: Additional Dx: Anemia: Entered Date: 17-Jan-2023 18:02 Code Status: Code StatusFull Code Assessment: 82-year-old female admitted for melena and anemia. She went an EGD yesterday that showed hematin but no active source of bleeding. Patient has a history of A-fib on Eliquis, hypercholesterolemia, hypothyroidism, Matthew, Hanley's esophagus, OA and history of uterine cancer. PLAN: 1. Patient is reluctant to go home because of the how she feels and she does not feel like she is back to her baseline 2. She is requesting a unit of blood to make her feel better 3. I reached out to GI and he recommended a CBC in 1 week with follow-up 4. I did try to explain to the patient it will take a while for her blood counts are low back up and working to start iron supplements 5. 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 We will type and cross for 1 unit and transfuse per protocol 7. CBC in a.m. 8. Continue calcium channel noemy, Synthroid and propafenone from home 9. DVT prophylaxis with SCDs 10. Ulcer prophylaxis with PPI 11. Discharge in the next 24 hours Electronic Signatures: Shahid Colunga () (Signed 20-Jan-2023 12:48) Authored: Service, Review of Systems, Subjective Data, Objective Data, Assessment and Plan, Note Completion Last Updated: 20-Jan-2023 12:48 by Shhaid Colunga () [facility] REQUEST-LEUKOREDUCED RED ABDIRIZAK LSon 01-20-2023 REQUEST-LEUKOREDUCED RED CELLS Canceled [facility] Comment on above: Order Comment: TEST REQUEST-LEUKOREDUCED RED CELLS WAS CANCELLED, 01/20/2023 13:13 DUPLICATEORDER. Performed By: #### M G #### [place] [address] REQUEST-LEUKOREDUCED RED CELLS ORDER RECD Normal [facility] Comment on above: Performed By: #### O SPINNING MACHINE TENDER #### [address] [address] TYPE + SCREENon 01-20-2023 ABO TYPE O [facility] Comment on above: Performed By: #### M G #### [address] [address] RH TYPE Positive Normal [facility] Comment on above: Performed By: #### M G #### [address] [address] BASIC METABOLIC PANELon 01-08 Anion gap [Moles/Vol] 7 mmol/L Low 10 - 20 [facility] Comment on above: Performed By: #### B NP2 #### [address] [address] Calcium [Mass/Vol] 8.1 mg/dL Low 8.6 - 10.3 [facility] Comment on above: Performed By: #### B NP2 #### [address] [address] Chloride [Moles/Vol] 103 mmol/L Normal 98 - 107 [facility] Comment on above: Performed By: #### B NP2 #### [address] [address] Creatinine [Mass/Vol] 0.57 mg/dL Normal 0.50 - 1.05 [facility] Comment on above: Performed By: #### B NP2 #### [address] [address] eGFR FEMALE >90 Normal >90 [facility] Comment on above: Result Comment: CALC ULATIONS OF ESTIMATED GFR ARE PERFORMED USING THE 2020 CKD-EPI STUDY REFIT EQUATION WITHOUT THE RACE VARIABLE FOR THE IDMS-TRACEABLE CREATININE METHODS. https://jasn.asnjournals.org/content/early/ASN.52118 98234 Performed By: #### B NP2 #### [address] [address] Glucose [Mass/Vol] 89 mg/dL Normal 74 - 99 [facility] Comment on above: Performed By: #### B NP2 #### [address] [address] HCO3 (Bld) [Moles/Vol] 32 mmol/L Normal 21 - 32 [facility] Comment on above: Performed By: #### B NP2 #### [address] [address] Potassium [Moles/Vol] 3.5 mmol/L Normal 3.5 - 5.3 [facility] Comment on above: Performed By: #### B NP2 #### [address] [address] Sodium [Moles/Vol] 138 mmol/L Normal 136 - 145 [facility] Comment on above: Performed By: #### B NP2 #### [address] [address] Urea nitrogen [Mass/Vol] 14 mg/dL Normal 6 - 23 [facility] Comment on above: Performed By: #### B NP2 #### [address] [address] CBCon 01-19-2023 Erythrocyte distribution width (RBC) [Ratio] 16.0 % High 11.5 - 14.5 [facility] Comment on above: Performed By: #### M G #### [address] [address] Hematocrit (Bld) [Volume fraction] 24.1 % Low 36.0 - 46.0 [facility] Comment on above: Performed By: #### M G #### [address] [address] Hemoglobin (Bld) [Mass/Vol] 7.6 g/dL Low 12.0 - 16.0 [facility] Comment on above: Performed By: #### M G #### [address] [address] MCHC (RBC) [Mass/Vol] 31.5 g/dL Low 32.0 - 36.0 [facility] Comment on above: Performed By: #### M G #### [address] [address] MCV (RBC) [Entitic vol] 95 fL Normal 80 - 100 [facility] Comment on above: Performed By: #### M G #### [address] [address] Platelets (Bld) [#/Vol] 181 10*3/uL Normal 150 - 450 [facility] Comment on above: Performed By: #### M G #### [address] [address] RBC 2.55 x10E12/L Low 4.00 - 5.20 [facility] Comment on above: Performed By: #### M G #### [address] [address] WBC (Bld) [#/Vol] 4.6 10*3/uL Normal 4.4 - 11.3 [facility] Comment on above: Performed By: #### M G #### [address] [address] Clinical Event Noteon 2022 Clinical Event Note Clinical Event: Clinical Event Note: Details Heart rate is 61. I will go ahead and hold the metoprolol 100 mg. Electronic Signatures: Amador Good) (Signed 19-Jan-2023 20:44) Authored: Clinical Event Note Last Updated: 19-Jan-2023 20:44 by Amador Good) [facility] Clinical Event Note Clinical Event: Clinical Event Note: Details Blood pressure 130/64 and heart rate 72. Patient due for Cardizem long-acting 240 mg. I will go ahead and break it down to short acting 60 mg every 6 hours and continue close vital signs monitoring. Electronic Signatures: Amador Good) (Signed 19-Jan-2023 20:42) Authored: Clinical Event Note Last Updated: 19-Jan-2023 20:42 by Amador Good) [facility] Daily Progress Note-Medicine on 01-19-2023 Daily Progress Note-Medicine Service: Medicine Review of Systems: Review of Systems: Constitutional: NEGATIVE: Fever, Chills ENMT: NEGATIVE: Nasal Discharge, Nasal Congestion, Ear Pain, Mouth Pain, Throat Pain Respiratory: NEGATIVE: Dry Cough, Productive Cough, Hemoptysis, Wheezing, Shortness of Breath Cardiac: NEGATIVE: Chest Pain, Dyspnea on Exertion, Orthopnea, Palpitations, Syncope Gastrointestinal: NEGATIVE: Nausea, Vomiting, Diarrhea, Constipation, Abdominal Pain Genitourinary: NEGATIVE: Discharge, Dysuria, Flank Pain, Frequency, Hematuria Musculoskeletal: POSITIVE: Pain; NEGATIVE: Decreased ROM, Swelling, Stiffness, Weakness Neurological: NEGATIVE: Dizziness, Confusion, Headache, Seizures, Syncope Psychiatric: NEGATIVE: Mood Changes, Anxiety Subjective Data: ALMA ECHEVERRIA is a 82 year old Female who is Hospital Day # 3. Additional Information: Having back pain not so much in her sacral right hip area but around her kidney and liver area Having bowel movements and they are still black No other complaints Objective Data: Objective Information: T PRBPMAPSpO2 [id number]/5492% Date/Time01/19 10: 10: 10: 10: 10:00 Range(36.2C - 36.7C ) (63 - 71 ) (14 - 20 ) (101 - 112 )/ (54 - 69 ) (90% - 95% ) Pain reported at 01/19 8:14: 3 = Mild Physical Exam by System: Constitutional: Awake and alert; oriented x3 with no apparent distress or respiratory distress; pale Head/Neck: Neck supple with no palpable lymphadenopathy, bruits or masses; trachea midline Respiratory/Thorax: Clear to auscultation bilaterally no active wheezes or rhonchi noted Cardiovascular: Irregularly irregular; normal S1-S2 with no murmur; no edema and 2+ pulses bilaterally Gastrointestinal: Soft, nontender, nondistended, positive bowel sounds Neurological: Nonfocal; cranial nerves II through XII appear intact Psychological: Pleasant affect Recent Lab Results: Results: I have reviewed these laboratory results: Complete Blood Count 19-Jan-2023 05:26:00 ResultValue White Blood Cell Count 4.6 Red Blood Cell Count 2.55 L HGB 7.6 L HCT 24.1 L MCV 95 MCHC 31.5 L PLT 181 RDW-CV 16.0 H Basic Metabolic Panel 19-Jan-2023 05:26:00 ResultValue Glucose, Serum 89 NA 138 K 3.5 CL 103 Bicarbonate, Serum 32 Anion Gap, Serum 7 L BUN 14 CREAT 0.57 GFR Female >90 Calcium, Serum 8.1 L Assessment and Plan: Additional Dx: Anemia: Entered Date: 17-Jan-2023 18:02 Black stools: Entered Date: 17-Jan-2023 18:02 Syncope: Entered Date: 17-Jan-2023 18:02 Code Status: Code StatusFull Code Assessment: 82-year-old female admitted for blood in her stool with what sounds like melena she is anemic. She is on Eliquis for A-fib. She had a syncopal episode in the ED prior to being brought to the floor. Comorbidities include A-fib on Eliquis, hypercholesterolemia, hypothyroidism, Matthew, Hanley's esophagus, OA and a history of uterine cancer. PLAN: 1. Patient is scheduled for an EGD today 2. Pain control as needed 3. Antiemetics as needed 4. She is on a calcium channel noemy Synthroid and propafenone from home 5. DVT prophylaxis with SCDs 6. Ulcer prophylaxis with PPI 7. Depending on what happens with the EGD, will consider restarting her Eliquis and plan for discharge Electronic Signatures: Shahid Colunga () (Signed 19-Jan-2023 13:15) Authored: Service, Review of Systems, Subjective Data, Objective Data, Assessment and Plan, Note Completion Last Updated: 19-Jan-2023 13:15 by Shahid Colunga () [facility] Preop Checkliston 01-19-2023 Preop Checklist Preop Checklist: Preop Checklist: Arrival [id number] Arrival Time14:28 Procedure Typeegd Temperature C37.2 degrees C Temperature F98.9 degrees F Heart Rate67 beats per minute Respiratory Rate16 breath per minute Blood Pressure Nnjvcmaz396 mm/Hg Blood Pressure Xicfnzthy27 mm/Hg NPOyes Last Food [id number] 15:06 Last Clear Fluid [id number] 12:07 ID Band On Patientpatient ID (name) Consent Signedyes H&P Completeyes Anesthesia Assessment Completedyes EKG Performedsee results tab Preop Antibioticsnot ordered Type and Screen Resultedn/a HCG Urine TestN/A Chlorhexadine Bath Givennot applicable Nasal Antiseptic Appliednot applicable Soap and Water Bath the Night Before Surgerynot applicable Hair Washed with Shampoonot applicable Hat placed on prior to transportnot applicable SCD's Appliednot applicable TALIA Hose Appliednot ordered Denturesnot applicable Hearing Aidsnot applicable Valuables Securednot applicable Glasses / Contactsnot applicable Bowel Prepno Cardiovascular Assessment: Apicalregular Extremitieswarm Respiratory Assessment: Respirationsunlabored Air Exchangedecreased, equal Breath Soundsclear Neurological Assessment: Level of Consciousnessalert, oriented Mobilitymoves all extremities Able to Express Selfyes Age Appropriateyes Emotional Statuscalm Skin Assessment: Skin Site(s) with Current Compromisenone Preop Education: Surgical Site Infection Preventionno Pain Scales and Managementyes Language / Communication: Language / CommunicationEnglish Electronic Signatures: Kori Pereira (RN) (Signed 19-Jan-2023 15:09) Authored: Preop Checklist Last Updated: 19-Jan-2023 15:09 by Kori Pereira (RN) [facility] Surgical Pathology Depar tmenton 01-19-2023 [facility] Surgical Pathology Department Name ALMA ECHEVERRIA Pathologist: MARKOS BILLY MD Date of Procedure: 01/19/2023 Date Received: 01/21/2023 Date Reported 01/25/2023 Submitting Physician: OKSANA OCAMPO DO Location: [facility] [place] Copy To/Referring/Attending: SHAHID COLUNGA DO Other External # FINAL DIAGNOSIS A. ANTRUM BX: ANTRAL MUCOSA WITH MILD NONSPECIFIC CHRONIC GASTRITIS, SEE NOTE. Note: No microorganisms are identified. Electronically Signed Out By MARKOS BILLY MD/MANPREET By the signature on this report, the individual or group listed as making the Final Interpretation/Diagnosis certifies that they have reviewed this case. Diagnostic interpretation performed at [facility] [address] [facility] [address] Clinical History: Physician Contact Number: [phone] Fixative (A): Formalin Clinical Diagnosis History ALMA ECHEVERRIA is a 82 year old Female This is an 82-year-old white female whose past medical history is significant for: 1. Atrial fibrillation on Eliquis 2. Hypercholesterolemia 3. Hypothyroidism 4. MATTHEW and she said it was possibly secondary to being on Celebrex 5. History of uterine cancer status post ARLEN with BSO 6. Hanley's esophagus 7. Osteoarthritis About a month ago patient states that she developed a spine fracture in her lower back by her right hip and she mentioned towards sacrum. She has been in significant pain since then. She also developed black soft stools. Her PCP Dr. Le did blood work and also an occult blood that was positive. The last 2 days she has become very weak even using her walker. She says she will walk maybe 10 steps and she feels like she is going to pass out. There is no loss of consciousness. No chest pain or shortness of breath and no headaches or visual disturbances or dizziness. She continues to have the black soft stool and she denies any abdominal pain with this. She came into the ER to be evaluated. No other complaints. In the ER her blood pressure is 120/69 with a pulse of 87 and a respiratory rate of 16. She satting 100% on room air and she is afebrile. Her white count is 6.2 and her H AND H is 8.7 (back in September 09, 2022 her hemoglobin was 13.6) and 26.8. MCV and MCHC are normal and her platelet count is 202,000. She is COVID-19 negative. Her CMP is remarkable for a potassium of 3.3, chloride 97, bicarb 33 and a BUN of 32. Her creatinine is normal at 0.56. Calcium is low at 7.9 but her albumin is 3.3 and a protein is 5.8. Alk phos is 150. Her LFTs are otherwise unremarkable and initial troponin is 5 with a repeat of 5. Chest x-ray is nonacute and CT of the abdomen pelvis with IV contrast shows few fluid-filled dilated small bowel loops in the mid abdomen which may be nonspecific and could be related to mild enteritis versus low-grade partial bow Specimens Submitted As: A: ANTRUM BX Gross Description: Received in formalin, labeled with the patient's name and hospital number and antrum BX, is a fragment of galvez, soft tissue measuring 0.4 x 0.3 x 0.2 cm. The specimen is submitted in toto in one cassette. SBS [facility]/01/24/2023 [facility] Department of Pathology [address] [place] [address] Normal [facility] Comment on above: Performed By: #### U [facility] #### [facility] Surgical Pathology Department [address] [place] [address] Upper GI endoscopyon 01-19-2 023 Upper GI endoscopy PATIENTNAME Patient Name: Alma Echeverria EXAMDATE Procedure Date: 01/19/2023 3:06 PM PATIENTID PATIENTACCOUNTNUM PATIENTDOB Date of : 1940 ADMITTYPE Admit Type: Inpatient PATIENTROOM Site: [facility] ETHNICITY Ethnicity: Not or RACE Race: White PROVDR Attending MD: Oksana Ocampo DO, [phone] ENDOPROCEDURENAME Procedure: Upper GI endoscopy INDICATION Indications: Iron deficiency anemia secondary to chronic blood loss PRIMARYPROVIDER Providers: Oksana Ocampo DO (Doctor), Steve Islas RN (Nurse), Peg Mina, Foreign Language Interpreter EDREFPROVIDER Referring: CURRENT_MEDS Medicines: Monitored Anesthesia Care COMPLIC Complications: No immediate complications. ENDOPROCEDURETEXT Procedure: Pre-Anesthesia Assessment: - Prior to the procedure, a History and Physical was performed, and patient medications and allergies were reviewed. The patient is competent. The risks and benefits of the procedure and the sedation options and risks were discussed with the patient. All questions were answered and informed consent was obtained. Patient identification and proposed procedure were verified by the physician in the pre-procedure area. Mental Status Examination: alert and oriented. Airway Examination: normal oropharyngeal airway and neck mobility. Respiratory Examination: clear to auscultation. CV Examination: normal. Prophylactic Antibiotics: The patient does not require prophylactic antibiotics. Prior Anticoagulants: The patient has taken no anticoagulant or antiplatelet agents. ASA Grade Assessment: III - A patient with severe systemic disease. After reviewing the risks and benefits, the patient was deemed in satisfactory condition to undergo the procedure. The anesthesia plan was to use monitored anesthesia care (MAC). Immediately prior to administration of medications, the patient was re-assessed for adequacy to receive sedatives. The heart rate, respiratory rate, oxygen saturations, blood pressure, adequacy of pulmonary ventilation, and response to care were monitored throughout the procedure. The physical status of the patient was re-assessed after the procedure. After obtaining informed consent, the endoscope was passed under direct vision. Throughout the procedure, the patient's blood pressure, pulse, and oxygen saturations were monitored continuously. The Endoscope was introduced through the mouth, and advanced to the third part of duodenum. The upper GI endoscopy was accomplished without difficulty. The patient tolerated the procedure well. FINDING Findings: The nasopharynx was normal. The Z-line was regular and was found 38 cm from the incisors. No gross lesions were noted in the entire examined stomach. The examined duodenum was normal. SEDATION Moderate Sedation: See the other procedure note for documentation of moderate sedation with intraservice time. EBL Estimated Blood Loss: Estimated blood loss: none. IMPRESS Impression: - Normal nasopharynx. - Z-line regular, 38 cm from the incisors. - No gross lesions in the entire stomach. - Normal examined duodenum. - No specimens collected. ENDORECOMMENDATION Recommendation: - [facility] to [facility]. - Advance diet as tolerated. CPT_CODES Procedure Code(s): --- Professional --- 37790, Esophagogastroduodenosco py, flexible, transoral; diagnostic, including collection of specimen(s) by brushing or washing, when performed (separate procedure) ICD_CODES Diagnosis Code(s): --- Professional --- D50.0, Iron deficiency anemia secondary to blood loss (chronic) CODINGSTMT CPT copyright 2020 [employer]. All rights reserved. The codes documented in this report are preliminary and upon certified coder review may be revised to meet current compliance requirements. ATTDRPART Attending Participation: I personally performed the entire procedure. SIGNATURENAME Oksana Ocampo DO SIGNATUREDATE 01/26/2023 2:21:22 PM SIGNATUREONFILEIND This report has been signed electronically. NUMADDENDA Number of Addenda: 0 INITIATEDON Note Initiated On: 01/19/2023 3:06 PM WSCOPETIME Scope Withdrawal Time 0 hours 0 minutes 54 seconds TOTPROCTIME Total Procedure Duration Time 0 hours 3 minutes 38 seconds Normal [facility] BASIC METABOLIC PANELon 04- Anion gap [Moles/Vol] 7 mmol/L Low 10 - 20 [facility] Comment on above: Result Comment: Revi ewed previous results Performed By: #### M G #### [place] [address] Calcium [Mass/Vol] 7.5 mg/dL Low 8.6 - 10.3 [facility] Comment on above: Performed By: #### M G #### [address] [address] Chloride [Moles/Vol] 101 mmol/L Normal 98 - 107 [facility] Comment on above: Performed By: #### M G #### [address] [address] Creatinine [Mass/Vol] 0.49 mg/dL Low 0.50 - 1.05 [facility] Comment on above: Performed By: #### M G #### [address] [address] eGFR FEMALE >90 Normal >90 [facility] Comment on above: Result Comment: CALC ULATIONS OF ESTIMATED GFR ARE PERFORMED USING THE 2020 CKD-EPI STUDY REFIT EQUATION WITHOUT THE RACE VARIABLE FOR THE IDMS-TRACEABLE CREATININE METHODS. https://jasn.asnjournals.org/content/early//ASN.92129 [address] Performed By: #### M G #### [address] [address] Glucose [Mass/Vol] 83 mg/dL Normal 74 - 99 [facility] Comment on above: Performed By: #### M G #### [address] [address] HCO3 (Bld) [Moles/Vol] 32 mmol/L Normal 21 - 32 [facility] Comment on above: Performed By: #### M G #### [address] [address] Potassium [Moles/Vol] 3.1 mmol/L Low 3.5 - 5.3 [facility] Comment on above: Performed By: #### M G #### [address] [address] Sodium [Moles/Vol] 137 mmol/L Normal 136 - 145 [facility] Comment on above: Performed By: #### M G #### [address] [address] Urea nitrogen [Mass/Vol] 25 mg/dL High 6 - 23 [facility] Comment on above: Performed By: #### M G #### [address] [address] CBCon 01-18-2023 Erythrocyte distribution width (RBC) [Ratio] 16.1 % High 11.5 - 14.5 [facility] Comment on above: Performed By: #### T RP #### [address] [address] Hematocrit (Bld) [Volume fraction] 22.8 % Low 36.0 - 46.0 [facility] Comment on above: Performed By: #### T RP #### [address] [address] Hemoglobin (Bld) [Mass/Vol] 7.3 g/dL Low 12.0 - 16.0 [facility] Comment on above: Performed By: #### T RP #### [address] [address] MCHC (RBC) [Mass/Vol] 32.0 g/dL Normal 32.0 - 36.0 [facility] Comment on above: Performed By: #### T RP #### [address] [address] MCV (RBC) [Entitic vol] 94 fL Normal 80 - 100 [facility] Comment on above: Performed By: #### T RP #### [address] [address] Platelets (Bld) [#/Vol] 165 10*3/uL Normal 150 - 450 [facility] Comment on above: Performed By: #### T RP #### [address] [address] RBC 2.42 x10E12/L Low 4.00 - 5.20 [facility] Comment on above: Performed By: #### T RPHS #### [address] [address] WBC (Bld) [#/Vol] 6.4 10*3/uL Normal 4.4 - 11.3 [facility] Comment on above: Performed By: #### T RPHS #### [facility] [address] [id number] Consult-Gastroenterologyon 0 01-18-2023 Consult-[facility] Service: Service: Gastroenterology Consult: Consult requested by (Attending Name): Shahid Colunga Reason: Melanotic stools; on Eliquis History of Present Illness: HPI: ALMA ECHEVERRIA is a 82 year old Female who presents to the ER yesterday evening with melanic stools. She had called my office Tuesday was advised to have CBC drawn unfortunately had persistent black stool over the weekend baseline hemoglobin 10 on presentation to ER was 7.9 she was subsidy admitted to the hospital service. She has been on IV fluids she is been complaining of recent hip pain for which she has been taking NSAIDs. Approximately 4 weeks ago she developed acute spinal fracture and has been taking [id number] NSAIDs, Mobic. She did see her family doctor complaining of increasing exertional weakness and fatigue with accompanying melena. Upon arrival to ER she was normotensive and not tachycardic her hemoglobin was 8.7 historically runs a baseline hemoglobin of 10-13. She denies any gross rectal bleeding no hematemesis. No abdominal pain. Appetite has been normal. She is seen resting at her bedside. She is accompanied by her computer publisher. She states she still having black stools denies any anorexia, nausea or vomiting. Hemoglobin after hydration is down to 7.3. Past medical history seen for atrial fibrillation on anticoagulation, Matthew, Hanley's esophagus and osteoarthritis. Past Medical/Surgical History: Medical History: Cirrhosis of liver: High cholesterol: Bowel obstruction: Uterine cancer: Afib: Colon polyps: Thyroid disorder: Surg History: History of colonoscopy: History of cataract extraction: History of laparoscopy: History of total hip replacement: History of knee replacement: History of foot surgery: History of cholecystectomy: Abdominal adhesions: Abdominal tumor: History of appendectomy: History of tonsillectomy and adenoidectomy: History of shoulder replacement: History of colonoscopy: Squamous cell carcinoma of eyelid: Review Family/Social History and ROS: Social History: Smoking Status: never smoker (1) Alcohol Use: denies(1) Drug Use: denies (1) Allergies: codeine: Other (Mild), Itching Objective: Objective Information: T PRBPMAPSpO2 [id number]/6695% Date/Time01/18 7: 7: 7: 7: 7:30 Range(36.2C - 36.9C ) (63 - 87 ) (16 - 18 ) (100 - 144 )/ (51 - 73 ) (94% - 100% ) Highest temp of 36.9 C was recorded at 01/18 0:00 Physical Exam by System: Constitutional: Well developed, awake/alert/oriented x3, no distress, alert and cooperative Eyes: PERRL, EOMI, clear sclera ENMT: mucous membranes moist, no apparent injury, no lesions seen Head/Neck: Neck supple, no apparent injury, thyroid without mass or tenderness, No JVD, trachea midline, no bruits Respiratory/Thorax: Patent airways, CTAB, normal breath sounds with good chest expansion, thorax symmetric Cardiovascular: Regular, rate and rhythm, no murmurs, 2+ equal pulses of the extremities, normal S 1and S 2 Gastrointestinal: Nondistended, soft, non-tender, no rebound tenderness or guarding, no masses palpable, no organomegaly, +BS, no bruits Musculoskeletal: ROM intact, no joint swelling, normal strength Extremities: normal extremities, no cyanosis edema, contusions or wounds, no clubbing Neurological: alert and oriented x3, intact senses, motor, response and reflexes, normal strength Lymphatic: No significant lymphadenopathy Psychological: Appropriate mood and behavior Skin: Warm and dry, no lesions, no rashes Medications: Medications: Continuous Medications -------- No continuous medications are active Scheduled Medications -------- 1. Atorvastatin: 10 mg Oral Daily 2. dilTIAZem (CARDIZEM CD) Extended Release (24 hour): 240 mg Oral Every 24 Hours 3. Levothyroxine: 50 microgram(s) Oral Daily 4. Pantoprazole: 40 mg Oral Daily 5. Propafenone Immediate Release: 150 mg Oral 2 Times a Day PRN Medications -------- 1. Acetaminophen: 650 mg Oral Every 4 Hours 2. Acetaminophen: 650 mg Oral Every 4 Hours 3. Magnesium Hydroxide -Al Hydrox -Simethicone Oral Liquid: 30 mL Oral Every 6 Hours 4. Ondansetron Injectable: 4 mg IntraVenous Push Every 4 Hours 5. traMADol: 50 mg Oral Every 6 Hours Currently Suspended Medications -------- 1. Furosemide: 80 mg Oral Daily Recent Lab Results: Results: I have reviewed these laboratory results: Hemoglobin + Hematocrit Trending View [id number] 09:56:00 17-Jan-2023 18:26:00 HCT23.3 L 24.6 L HGB7.3 L 7.9 L Complete Blood Count 18-Jan-2023 02:11:00 ResultValue White Blood Cell Count 6.4 Red Blood Cell Count 2.42 L HGB 7.3 L HCT 22.8 L MCV 94 MCHC 32.0 PLT 165 RDW-CV 16.1 H Complete Blood Count + Differential (more content not included)... Normal [facility] Daily Progress Note-Medicine on 01-18-2023 Daily Progress Note-Medicine Service: Medicine Review of Systems: Review of Systems: Constitutional: POSITIVE: Malaise; NEGATIVE: Fever, Chills ENMT: NEGATIVE: Nasal Discharge, Nasal Congestion, Ear Pain, Mouth Pain, Throat Pain Respiratory: NEGATIVE: Dry Cough, Productive Cough, Hemoptysis, Wheezing, Shortness of Breath Cardiac: NEGATIVE: Chest Pain, Dyspnea on Exertion, Orthopnea, Palpitations, Syncope Gastrointestinal: NEGATIVE: Nausea, Vomiting, Diarrhea, Constipation, Abdominal Pain Genitourinary: NEGATIVE: Discharge, Dysuria, Flank Pain, Frequency, Hematuria Musculoskeletal: NEGATIVE: Decreased ROM, Pain, Swelling, Stiffness, Weakness Neurological: NEGATIVE: Dizziness, Confusion, Headache, Seizures, Syncope Psychiatric: NEGATIVE: Mood Changes, Anxiety Subjective Data: ALMA ECHEVERRIA is a 82 year old Female who is Hospital Day # 2. Additional Information: Doing well except feeling weak Pain tolerable in her sacral right hip area Objective Data: Objective Information: T PRBPMAPSpO2 [id number]/6795% Date/Time01/18 15: 15: 15: 15: 15:05 Range(36.2C - 36.9C ) (63 - 87 ) (14 - 18 ) (100 - 144 )/ (51 - 73 ) (94% - 100% ) Highest temp of 36.9 C was recorded at 01/18 0:00 Pain reported at 01/18 15:24: 8 = Severe; pt wanted tramadol Physical Exam by System: Constitutional: Awake and alert; oriented x3 with no apparent distress or respiratory distress; pale Head/Neck: Neck supple with no palpable lymphadenopathy, bruits or masses; trachea midline Respiratory/Thorax: Clear to auscultation bilaterally no active wheezes or rhonchi noted Cardiovascular: Irregularly irregular; normal S1-S2 with no murmur; no edema and 2+ pulses bilaterally Gastrointestinal: Soft, nontender, nondistended, positive bowel sounds Neurological: Nonfocal; cranial nerves II through XII appear intact Psychological: Pleasant affect Recent Lab Results: Results: I have reviewed these laboratory results: Hemoglobin + Hematocrit Trending View [id number] 09:56:00 17-Jan-2023 18:26:00 HCT23.3 L 24.6 L HGB7.3 L 7.9 L Complete Blood Count 18-Jan-2023 02:11:00 ResultValue White Blood Cell Count 6.4 Red Blood Cell Count 2.42 L HGB 7.3 L HCT 22.8 L MCV 94 MCHC 32.0 PLT 165 RDW-CV 16.1 H Basic Metabolic Panel 18-Jan-2023 02:11:00 ResultValue Glucose, Serum 83 NA 137 K 3.1 L CL 101 Bicarbonate, Serum 32 Anion Gap, Serum 7 L BUN 25 H CREAT 0.49 L GFR Female >90 Calcium, Serum 7.5 L Assessment and Plan: Additional Dx: Anemia: Entered Date: 17-Jan-2023 18:02 Black stools: Entered Date: 17-Jan-2023 18:02 Syncope: Entered Date: 17-Jan-2023 18:02 Code Status: Code StatusFull Code Assessment: 82-year-old female admitted for blood in stool with what sounds like melena and she has anemia. She is on Eliquis for her A-fib. Serial hemoglobin and hematocrits noted. Does have a history of A-fib on Eliquis, hypercholesterolemia, hypothyroidism, Matthew, Hanley's esophagus, osteoarthritis and history of uterine cancer. She did have a syncopal episode in the ED. PLAN: 1. Continue telemetry monitoring 2. She is currently saline lock 3. Lab for a.m. 4. Continue clear liquids for now but n.p.o. after midnight; plan for EGD tomorrow afternoon 5. Continue home meds with calcium channel noemy, Synthroid and propafenone 6. Pain control as needed 7. Antiemetics as needed 8. DVT prophylaxis with SCDs 9. Ulcer prophylaxis with oral PPI 10. Full CODE STATUS Electronic Signatures: Shahid Colunga () (Signed 18-Jan-2023 17:00) Authored: Service, Review of Systems, Subjective Data, Objective Data, Assessment and Plan, Note Completion Last Updated: 18-Jan-2023 17:00 by Shahid Colunga () [facility] Discharge Planning [id number] 0 01-18-2023 Discharge Planning Note2 Discharge Planning: Discharge Barriersnone Planned Dispositionhome Discharge DestinationHome with Patient/Multifocal 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 Stated GoalHome with we do quite well together [place] of Choice Explainedyes Anticipated Discharge [id number] Discharge Planning 01/18/23 0940 Care Transition Note: Met with pt in room and explained the TCC role of navigating patients through the discharge planning process and helping with needs. Verified contact information , insurance, pharmacy and DME supplier. Patient denies problems obtaining/affording medications, takes as prescribed, understands reasons for use and possible side effects. AMPAC per nursing is 15. ADOD is 01/20/23. Denies further assistance or care and plan is to d/c home with no other anticipated needs. CT to follow. Ny LAROSEN, RN/TCC 01/19/2023 1355 Care Transitions/SW Note: SW met with Pt at bedside. Pt AMPAC is 17 with RN. ADOD is 01/20, Pt is having EGD today and plan is to d/c home with outpatient therapy/no home care services. Pt in agreement with this d/c plan and denied any additional health care needs. Care Transitions/SW to follow and assist as needed. SABAS Diaz 01/20/2023 @ 245pm Care Transitions/SW Note: Pt reviewed during Care Rounds today and is not ready for discharge; anticipate discharge tomorrow/Tuesday. Met with pt to review her discharge plan- pt confirms her desires to return home and declines services. Care Transitions to follow as needed. WANDA Dmoinguez Assessment: Discharge Planning Assessment [id number] Discharge Planning Assessment Completed byNy GRACE, RN/TCC Primary Contact Name and Numbertina [phone](1) Prior Level of FunctioningIndependent Lives Withspouse(1) Living Arrangementshouse(1) Stated Reason for Admissionanemia(1) Arrived Fromemergency department (1) PCPStencel [facility] Recent Falls/ Injury/ Need Assist with AmbulationDenies Equipment Currently Used at Homewheelchair; cane, quad/straight; grab bar DME Supplier Name/NumberNA Home Care Agency/Support ServicesNA Diabetic/Supplies NeededNA Hemodialysis ScheduleNA Other NeedsNA Resource/Environmental Concernsnone(1) [facility] Services Anticipated at Transitionnone(1) Readmission Within the Last 30 Daysno previous admission in last 30 days PCP Last Date Seen12/2022 InsuranceMedicare A/B Anticipated Changes Related to Illnessnone Equipment Needed After Dischargenone Anticipated Discharge Facility/Level of Care Needs.Home Social Determinants of Health IdentifiedNA Special ConsiderationsPt was doing Out Patient PT until pain became unbearable. PT will resume once pain controlled per pt Transportation Home Who/HowPhil () Medication Adherence/Afford/Obtainy es Home O2 SupplierNA Electronic Signatures: Taya Campos-Ramón) (Signed 20-Jan-2023 14:46) Authored: Discharge Planning Marilyn Davalos (SALVADOR) (Signed 19-Jan-2023 14:17) Authored: Discharge Planning Ny Aguilar (RN) (Signed 18-Jan-2023 13:37) Authored: Discharge Planning, Assessment Last Updated: 20-Jan-2023 14:46 by Taya Campos (LAILA-S) References: 1. Data Referenced From Patient Profile - Adult v2 17-Jan-2023 17:18 Normal [facility] HGB + HCTon 01-18-2023 Hematocrit (Bld) [Volume fraction] 23.3 % Low 36.0 - 46.0 [facility] Comment on above: Performed By: #### M G #### [address] [address] Hemoglobin (Bld) [Mass/Vol] 7.3 g/dL Low 12.0 - 16.0 [facility] Comment on above: Performed By: #### M G #### [address] [address] HCT Canceled Normal [facility] Comment on above: Order Comment: TEST HGB + HCT WAS CANCELLED, 01/18/2023 02:12 Did morning labs whichincluded CBC per Kathya LOCK. Performed By: #### M G #### [address] [address] HGB Canceled Normal [facility] Comment on above: Order Comment: TEST HGB + HCT WAS CANCELLED, 01/18/2023 02:12 Did morning labs whichincluded CBC per Kathya LOCK. Performed By: #### M G #### [address] [address] Admission Risk Screen - Adul ton 01-17-2023 Admission Risk Screen - Adult Allergies: Allergies: codeine: Other (Mild), Itching Patient Verification: New W ID Band Applied in my Departmentno Type of ID Patient is WearingW wristband, but not applied here Patient Transferred from Other Facility ([facility], [facility],etc)no Patient Identity Verified Bypatient ID Band FULL Name, include Middle, spelling matches patient's ID used for verificationyes ID Band Matches Patient ID used for Verficationyes ID Band MRN Matches EMR MRNyes Visitor Restriction: Coronavirus Visitor Restriction: Reasonable restrictions to in-person visitors will be observed due to current coronavirus pandemic. Travel History: COVID-19 Screening Completedno exposure or symptoms(1) Travel or Exposure Past 30 DaysNO travel to International locations in the past 30 days Ebola AlertFor Ebola-like Symptoms: Isolate Patient and Notify Provider/Color Buffer For Contact: Notify Provider/Color Buffer Advance Directive: Advance Directive/DNRno (2) Advance Directive Information Givenpatient/family declined [place] Fall Screen: History of falling (immediate or previous)no (0) Secondary Diagnosisyes (15) Intravenous Therapy/ Heparin/Saline Lockyes (20) Gait/Transferringweak (10) Ambulatory Aidsnone/bedrest/nurse assist (0) Mental Statusoriented to own ability (0) Score: Low risk (<25). Moderate risk (25-44). High risk (>44).45 [place] InterventionsHIGH INTERVENTIONS *Low and Moderate Interventions Plus: * supervised toileting at all times Family Violence Screen: Are you or have you been threatened or abused physically, emotionally, or sexually by anyoneno Do you feel UNSAFE going back to the place where you are livingno Clinical assessment: Are there any apparent signs of injuries/behaviors that could be related to abuse/neglectno Social Service Consult for abuse/neglect needed this visitno Functional Screen: Functional Screen: In the recent/past 2-4 weeks, patient or family have noticedno issues that require a speech/language consult at this time AM-PAC- Basic Mobility/Daily Activity: Patient baseline bedboundno Turning from your back to your side while in a flat bed without using bedrailsa little Moving from lying on your back to sitting on the side of a flat bed without using bedrailsa little Moving to and from bed to chair (including a wheelchair)a little Standing up from a chair using your arms (e.g. wheelchair or bedside chair)a lot To walk in hospital rooma lot Climbing 3-5 steps with railinga lot Basic Mobility - Total Score15 Putting on and taking off regular lower body clothinga little Bathing (including washing, rinsing, drying)a little Putting on and taking off regular upper body clothingnone Toileting, which includes using toilet, bedpan or urinala little Taking care of personal grooming such as brushing teethnone Eating Mealsnone Daily Activity - Total Score21 Learning Assessment (Patient): Patient is Able to be Assessed for Learningyes Factors Influencing Readiness to Learninterest in learning Factors that Impact Ability to Learnnone Devices/Methods Used to Communicatenone Learning Preferencesverbal instruction Cultural Considerationsnone Developmental Considerationsnone Judaism Considerationsnone Learning Assessment (Other Learner): Other learner availableno Depression Screen: During the past month, have you often been bothered by feeling down, depressed or hopelessno During the past month, have you often had little interest or pleasure in doing thingsno Have you had any thoughts of harming anyone elseno (1) [place] Suicide: Risk Screen Not Applicable/Able to Answerable to be screened In the Past Month: Have you wished you were or could go to sleep and not wake upno(1) In the Past Month: Have you had any actual thoughts of killing yourself no(1) Lifetime: Have you ever done, started to do, or prepared to do anything to end your lifeno [place] Suicide Risknegative Adult Nutrition Screen: Have you recently lost weight without tryingno Have you been eating poorly because of a decreased appetiteno Malnutrition Screening Tool Score0 Malnutrition Screening Tool RiskMST = 0 or 1 Not at risk. Eating well with little or no weight loss Nutrition Consult needed this visitno Can Patient Participate in Room Serviceyes, with assistance Patient requires Paper Dishes/Plastic Utensilsno Pain Screen: Pain Scalenumerical 0-10 Pain Scale Educationteaching provided Current Pain Level0 = None Acceptable Pain Level5 = Moderate Expression of Pain (nonverbal)none Chronic Painno Spiritual Screen: Are there any cultural, spiritual, denominational practices/values/needs that are important for us to knowno Do you want a visit/item from Pastoral Careyes Is there any particular item/ help you need from Pastoral Careprayer / pastoral support Would you like your Pas (more content not included)... Normal [facility] CBC AND DIFFERENTIALon 01-17 % AUTOMATED IMMATURE GRAN 0.3 % Normal 0.0 - 0.9 [facility] Comment on above: Result Comment: Torri ture Granulocyte Count (IG) includes promyelocytes, myelocytes and metamyelocytes but does not include bands. Percent differential counts (%) should be interpreted in the context of the absolute cell counts (cells/L). Performed By: #### T [facility] #### [address] [address] Basophils (Bld) [#/Vol] 0.04 10*3/uL Normal 0.00 - 0.10 [facility] Comment on above: Performed By: #### T [facility] #### [address] [address] Basophils/100 WBC (Bld) 0.6 % Normal 0.0 - 2.0 [facility] Comment on above: Performed By: #### T [facility] #### [address] [address] Eosinophils (Bld) [#/Vol] 0.02 10*3/uL Normal 0.00 - 0.40 [facility] Comment on above: Performed By: #### T [facility] #### [address] [address] Eosinophils/100 WBC (Bld) 0.3 % Normal 0.0 - 6.0 [facility] Comment on above: Performed By: #### T [facility] #### [address] [address] Erythrocyte distribution width (RBC) [Ratio] 15.9 % High 11.5 - 14.5 [facility] Comment on above: Performed By: #### T [facility] #### [address] [address] Hematocrit (Bld) [Volume fraction] 26.8 % Low 36.0 - 46.0 [facility] Comment on above: Performed By: #### T [facility] #### [address] [address] Hemoglobin (Bld) [Mass/Vol] 8.7 g/dL Low 12.0 - 16.0 [facility] Comment on above: Performed By: #### T RP #### [address] [address] Lymphocytes (Bld) [#/Vol] 1.42 10*3/uL Normal 0.80 - 3.00 [facility] Comment on above: Performed By: #### T [facility] #### [address] [address] Lymphocytes/100 WBC (Bld) 22.9 % Normal 13.0 - 44.0 [facility] Comment on above: Performed By: #### T [facility] #### [address] [address] MCHC (RBC) [Mass/Vol] 32.5 g/dL Normal 32.0 - 36.0 [facility] Comment on above: Performed By: #### T [facility]PH[facility] #### [address] [address] MCV (RBC) [Entitic vol] 94 fL Normal 80 - 100 [facility] Comment on above: Performed By: #### T [facility] #### [address] [address] Monocytes (Bld) [#/Vol] 0.49 10*3/uL Normal 0.05 - 0.80 [facility] Comment on above: Performed By: #### T [facility] #### [address] [address] Monocytes/100 WBC (Bld) 7.9 % Normal 2.0 - 10.0 [facility] Comment on above: Performed By: #### T [facility] #### [address] [address] Neutrophils (Bld) [#/Vol] 4.21 10*3/uL Normal 1.60 - 5.50 [facility] Comment on above: Result Comment: Perc ent differential counts (%) should be interpreted in the context of the absolute cell counts (cells/L). Performed By: #### T RP #### [address] [address] Neutrophils/100 WBC (Bld) 68.0 % Normal 40.0 - 80.0 [facility] Comment on above: Performed By: #### T RP #### [address] [address] Platelets (Bld) [#/Vol] 202 10*3/uL Normal 150 - 450 [facility] Comment on above: Performed By: #### T [facility] #### [address] [address] RBC 2.86 x10E12/L Low 4.00 - 5.20 [facility] Comment on above: Performed By: #### T [facility] #### [address] [address] WBC (Bld) [#/Vol] 6.2 10*3/uL Normal 4.4 - 11.3 [facility] Comment on above: Performed By: #### T [facility] #### [address] [address] CHEST 1 VIEWon 01-17-2023 CHEST 1 VIEW Patient Name: ALMA ECHEVERRIA STUDY: CHEST 1 VIEW; 01/17/2023 12:10 pm INDICATION: weakness . COMPARISON: 07/27/2016 ACCESSION NUMBER(S): [id number] ORDERING CLINICIAN: ELY SALES FINDINGS: A single AP portable radiograph of the chest was obtained. Multiple cardiac monitoring leads are seen over the chest. No focal infiltrate, pleural effusion or pneumothorax is identified. The cardiac silhouette is within normal limits for size. IMPRESSION: No focal infiltrate or pneumothorax is identified. Electronically signed by: DENIZ TORO MD Normal [facility] COMPREHENSIVE PANELon 2022 Albumin [Mass/Vol] 3.3 g/dL Low 3.4 - 5.0 [facility] Comment on above: Performed By: #### T [facility] #### [address] [address] ALP [Catalytic activity/Vol] 150 U/L High 33 - 136 [facility] Comment on above: Performed By: #### T [facility] #### [address] [address] ALT [Catalytic activity/Vol] 7 U/L Normal 7 - 45 [facility] Comment on above: Result Comment: Cielo ents treated with Sulfasalazine may generate falsely decreased results for ALT. Performed By: #### T [facility] #### [address] [address] Anion gap [Moles/Vol] 9 mmol/L Low 10 - 20 [facility] Comment on above: Performed By: #### T RPHS #### [address] [address] AST [Catalytic activity/Vol] 24 U/L Normal 9 - 39 [facility] Comment on above: Performed By: #### T RPHS #### [address] [address] Bilirubin [Mass/Vol] 0.6 mg/dL Normal 0.0 - 1.2 [facility] Comment on above: Performed By: #### T RPHS #### [address] [address] Calcium [Mass/Vol] 7.9 mg/dL Low 8.6 - 10.3 [facility] Comment on above: Performed By: #### T RPHS #### [address] [address] Chloride [Moles/Vol] 97 mmol/L Low 98 - 107 [facility] Comment on above: Performed By: #### T RPHS #### [address] [address] Creatinine [Mass/Vol] 0.56 mg/dL Normal 0.50 - 1.05 [facility] Comment on above: Performed By: #### T RPHS #### [address] [address] eGFR FEMALE >90 Normal >90 [facility] Comment on above: Result Comment: CALC ULATIONS OF ESTIMATED GFR ARE PERFORMED USING THE 2020 CKD-EPI STUDY REFIT EQUATION WITHOUT THE RACE VARIABLE FOR THE IDMS-TRACEABLE CREATININE METHODS. https://jasn.asnjournals.org/content//ASN.40743 [address]87 Performed By: #### T RPHS #### [address] [address] Glucose [Mass/Vol] 88 mg/dL Normal 74 - 99 [facility] Comment on above: Performed By: #### T RPHS #### [address] [address] HCO3 (Bld) [Moles/Vol] 33 mmol/L High 21 - 32 [facility] Comment on above: Performed By: #### T RPHS #### [address] [address] Potassium [Moles/Vol] 3.3 mmol/L Low 3.5 - 5.3 [facility] Comment on above: Performed By: #### T RPHS #### [address] [place] [address] Protein [Mass/Vol] 5.8 g/dL Low 6.4 - 8.2 [facility] Comment on above: Performed By: #### T RPHS #### [place] [id number] Sodium [Moles/Vol] 136 mmol/L Normal 136 - 145 [facility] Comment on above: Performed By: #### T RPHS #### [place] [address] Urea nitrogen [Mass/Vol] 32 mg/dL High 6 - 23 [facility] Comment on above: Performed By: #### T RPHS #### [place] [address] CORONAVIRUS 2019 BY PCRon Lab Specimen Source Nasal, Nasopharyngeal Normal [facility] Comment on above: Performed By: #### T RPHS #### [place] [address] SARS-CoV-2 (COVID-19) RNA SHENG+probe Ql (Unsp spec) Not detected Normal Not Detected [facility] Comment on above: Result Comment: . This test has received FDA Emergency Use Authorization (EUA) and has been verified by [facility]. This test is only authorized for the duration of time that circumstances exist to justify the authorization of the emergency use of in vitro diagnostic tests for the detection of SARS-CoV-2 virus and/or diagnosis of COVID-19 infection under section 564(b)(1) of the Act, 21 U.S.C. 360bbb-3(b)(1), unless the authorization is terminated or revoked sooner. [facility] is certified under CLIA-88 as qualified to perform high complexity testing. Testing is performed in the [facility] laboratory located at [address] [place] [address]. SARS-CoV-2/Flu/RSV Multiplex Test: Fact sheet for providers: https://www.fda.gov/media/343243/download Fact sheet for patients: https://www.fda.gov/media/503457/download Performed By: #### T RPHS #### [facility] [address] [place] [address] CT ABDOMEN AND PELVIS W IV C [facility] 01-17-2023 CT ABDOMEN AND PELVIS W IV CONTRAST Patient Name: ALMA ECHEVERRIA STUDY: CT ABDOMEN AND PELVIS W IV CONTRAST; 01/17/2023 1:03 pm INDICATION: gi bleed, diffuse pain . COMPARISON: CT abdomen pelvis dated 08/12/2022. ACCESSION NUMBER(S): [id number] ORDERING CLINICIAN: ELY SALES TECHNIQUE: CT of the abdomen and pelvis was performed after administration of intravenous contrast. Standard contiguous axial images were obtained at 3 mm slice thickness through the abdomen and pelvis. Coronal and sagittal reconstructions at 3 mm slice thickness were performed. The patient received 90 milliliter of OMNIPAQUE 350 intravenously. FINDINGS: LOWER CHEST: Visualized lung bases are clear. Heart is within normal limits for size. No pleural or pericardial effusion. There is mild circumferential thickening of the distal thoracic esophagus could be related to reflux. ABDOMEN: LIVER: Liver demonstrates nodular contour suggestive of cirrhosis. No evidence of suspicious mass lesions in the liver. BILE DUCTS: No intrahepatic or extrahepatic biliary ductal dilatation. GALLBLADDER: Gallbladder is surgically absent. PANCREAS: Pancreas is normal. SPLEEN: Spleen is normal in size and morphology. ADRENAL GLANDS: Bilateral adrenal glands are normal. KIDNEYS AND URETERS: Bilateral kidneys enhance symmetrically. There is persistent evidence of mild prominence of right-sided collecting system mild diffuse right ureteral dilatation and prominence of right renal pelvis. This is similar compared to prior CT examination. No definite CT evidence of distal obstructing calculi in the right sided collecting system. Bilateral kidneys are otherwise normal and demonstrate symmetric enhancement. There is also mild prominence of left ureter, however no significant left-sided hydronephrosis is noted. These findings are similar compared to prior CT examination dating back to 2010 and are nonspecific. PELVIS: Evaluation of pelvis is slightly limited due to streak artifacts from right total hip arthroplasty hardware. BLADDER: Urinary bladder is diffusely distended and appears grossly unremarkable. The dome of the urinary bladder extends to the level of umbilicus. REPRODUCTIVE ORGANS: Uterus is not distinctly visualized and could be surgically absent. BOWEL: Stomach is not well distended limiting evaluation. Within this limitation appears grossly unremarkable. There are few fluid-filled mildly distended small bowel loops in the anterior mid abdomen measuring up to 3.5 cm in width. The small bowel loops in the mid abdomen are closely adherent to each other (as seen on axial image 44/134). However there is no definite evidence of transition point to suggest bowel obstruction at this point in time. There is mild prominence of mesenteric vasculature in the mid abdomen. These are nonspecific findings. There is moderate volume stool throughout the colon and rectum. Appendix is not discretely visualized and is likely surgically absent. VESSELS: Abdominal aorta demonstrates mild atherosclerotic calcifications without aneurysmal dilatation. IVC appears unremarkable. PERITONEUM/RETROPERITONE UM/LYMPH NODES: No evidence of intraperitoneal free fluid or free air. There is mild prominence of mesenteric vasculature in the mid abdomen. No abdominopelvic lymphadenopathy. BONES AND ABDOMINAL WALL: Bones demonstrate diffuse osseous demineralization. There is interval evidence of patchy sclerosis with lucent fracture line through right sacral ala, new compared to prior CT dated 08/12/2022 and corresponds to the insufficiency fracture seen on prior MRI dated 01/04/2023. No suspicious osseous lesions are noted. There is persistent evidence of mild compression deformities of L3 and L4 vertebral bodies, similar compared to prior CT examination. Postsurgical changes of right total hip arthroplasty are noted. Hardware appears grossly intact within limits of evaluation. Moderate multilevel degenerative changes of the lumbar spine are noted and are similar compared to prior CT examination. Again noted is midline scarring is noted in the anterior abdominal wall soft tissues, likely related to prior surgery. Otherwise rest of the abdominal wall soft tissues appear grossly unremarkable. IMPRESSION: 1. Few fluid-filled dilated small bowel loops in the mid abdomen with mild prominence of mesenteric vasculature as described above are nonspecific findings and could be related to mild enteritis versus low-grade partial bowel obstruction. There is no definite CT evidence of transition point at this point in time. Recommend clinical and laboratory correlation. 2. Hepatic cirrhosis. 3. Diffusely distended urinary bladder with its dome extending to the level of umbilicus. Recommend correlation with patient's symptomatology for difficulty in urination/bladder outlet obstruction. (more content not included)... Normal [facility] Covid 19 Resultson 3 SARS-CoV-2 (COVID-19) RNA SHENG+probe Ql (Unsp spec) NEGATIVE COVID-19 Test Coronaviruses are common world-wide and are the cause of many common colds. SARS-COV2 is a new coronavirus that began circulating worldwide in 2019 so we are calling it COVID-19. It has been estimated that four out of five patients with COVID-19 will recover at home without the need for medical attention. Symptoms of COVID-19 may include cough, fever, shortness of breath, loss of taste or smell and other flu-like symptoms including chills, sore muscles, sore throat, and headache. Severe illness is more common in older people and people with other health problems such as high blood pressure, obesity, and immune system problems. If the test is positive, you have COVID-19. You will be contacted by the ordering physicians office and instructed to remain on home isolation, in accordance with CDC guidelines. You may also be contacted by the [facility] to see if any of your close contacts may have been exposed to the virus and need to quarantine. If the test is negative, you likely do not have COVID-19 at this time, but you still may have a different illness that can spread to other people (like Influenza, or the Flu) and could still be at risk for getting COVID-19. We recommend that you stay away from other people to limit the spread of illness until your symptoms are improving and you are fever-free for 24 hours without the use of fever lowering medications such as acetaminophen or ibuprofen. No test is 100% accurate so if you are still concerned you may have COVID-19, talk to your doctor about the need to continue to stay away from others. Medicines Unless your provider told you not to use the following: Acetaminophen (Tylenol and others) is generally safe. Anti-inflammatory medications, such as Ibuprofen (Advil or Motrin) or Naproxen (Aleve) can also be used. Zgxw-vzy-pzxzsvn cough and cold medicines can be used according to the instructions on the package. Some fdob-kid-korbcuy medicines also contain acetaminophen. Make sure you are not taking more than your recommended dose. For those not hospitalized, there is no specific treatment available for this illness. Antibiotics do not treat Coronaviruses. Follow-Up Follow up with your doctor by scheduling a virtual visit or consider follow-up at one of our urgent care fever clinics. If you are having difficulty breathing, or are very weak and having difficulty standing, this is a medical emergency. Call 911 or have someone take you to the nearest emergency room immediately. If possible, wear a facemask. Additional guidance from the CDC for patients who tested POSITIVE for COVID-19 How to isolate: Isolate yourself in a specific room at home and limit your contact with others. Use a separate bathroom from other members of the household, when possible. Leave home only to get essential medical care. Do not go to work, school or public areas. Avoid using public transportation, ride-sharing, or taxis. Restrict contact with pets and other animals. If you must care for your pet or be around animals while you are sick, wash your hands before and after your interaction and wear a facemask. Make sure that shared spaces in the home have good airflow, such as by an air conditioner or an opened window, weather permitting. Personal Hygiene Procedures: Wear a face mask when in the same room as other people or pets. If a face mask interferes with your breathing, others should wear a mask when sharing space with you. Frequent hand-washing: wash your hands with soap and water for at least 20 seconds. If soap and water are not available, use alcohol-based hand glass technician/installer. Avoid touching your eyes, nose, and mouth with unwashed hands. Household Hygiene Procedures: Avoid sharing personal household items such as dishes, glassware, cups, eating utensils, towels or bedding with other people or pets in your home. After use, these items should be washed with soap and hot water. Disinfect all high-touch surfaces every day with antibacterial cleaning solutions such as Lysol wipes, bleach, cleansers, etc. High-touch surfaces include tabletops, doorknobs, bathroom fixtures, toilets, phones, keyboards, tablets and bedside tables. Immediately clean any surfaces that may have blood, poop or body fluids on them, using antibacterial cleaning solutions such as Lysol wipes, bleach, cleansers, etc. If clothing or bedding come into contact with blood, poop or body fluids, they should be washed immediately. Follow the directions on the laundry detergent and clothing labels but hot water is recommended when possible. Stopping home isolation precautions: If possible, consult your doctor before stopping home isolation precautions. According to the CDC, you can discontinue home isolation precautions when you have met both of these criteria: Your fever and respiratory symptoms have been gone for 24 sofi (more content not included)... Normal [facility] HCTon 01-17-2023 HCT Canceled Normal [facility] Comment on above: Order Comment: TEST HCT WAS CANCELLED, 01/17/2023 13:06 ordered in error. Performed By: #### H CT #### [address] [address] HGB + HCTon 01-17-2023 Hematocrit (Bld) [Volume fraction] 24.6 % Low 36.0 - 46.0 [facility] Comment on above: Performed By: #### M G #### [address] [address] Hemoglobin (Bld) [Mass/Vol] 7.9 g/dL Low 12.0 - 16.0 [facility] Comment on above: Performed By: #### M G #### [address] [address] LEAD,VENOUSon 01-17-2023 LEAD,VENOUS Canceled Normal [facility] Comment on above: Order Comment: SCRAP CRANE OPERATOR,VENOUS WAS CANCELLED, 01/17/2023 13:06 ordered in error. Result Comment: The performance characteristics of this test have been determined by [facility]. This test has not been approved by the FDA; however, the FDA has determined that such clearance is not necessary. This test is used for clinical purposes and should not be regarded as investigational or for research. This laboratory is certified under CLIA to perform high complexity clinical laboratory testing. Performed By: #### L EADV #### [facility] [address] [place], [place] [id number] MAGNESIUMon 01-17-2023 Magnesium [Mass/Vol] 1.70 mg/dL Normal 1.60 - 2.40 [facility] Comment on above: Performed By: #### M G #### [address] [address] Order Reconciliationon 01-17 Order Reconciliation Page 1 Admission Reconciliation Document Reconciliation Type: ED to Observation requested on behalf of Shahid Colunga (Physician) done by Shahid Colunga (DO) ED to Observation - Reconciliation: 17-Jan-2023 17:57 by: Shahid Colunga (DO) ED to Observation - AutoLinked: 17-Jan-2023 17:57 by: Shahid Colunga (DO) Home MedicationsEnteredLast Dose TakenReconciled with current Order Reconciliation Comment/ Additional Information Amitiza 8 mcg oral capsule 1 cap(s) orally 2 times a [id number]-Jan-2023 AM Lubiprostone Capsule (AMITIZA)DOSE = 8 microgram(s) Oral 2 Times a DayAmitiza 8 mcg oral capsule continued as the inpatient order Lubiprostone aspirin 81 mg oral tablet 1 tab(s) orally once a [id number] 3 AM Reviewed and Held atorvastatin 10 mg oral tablet 1 tab(s) orally once a [id number]-Jan-2023 AM Atorvastatin Tablet (LIPITOR)DOSE = 10 mg Oral Daily atorvastatin 10 mg oral tablet continued as the inpatient order Atorvastatin Cartia XT 240 mg/24 hours oral capsule, extended release 1 cap(s) orally once a [id number] 3 AM dilTIAZem (CARDIZEM CD) Extended Release (24 hour) Capsule, Extended ReleaseDOSE = 240 mg Oral Every 24 HoursCartia XT 240 mg/24 hours oral capsule, extended release continued as the inpatient order dilTIAZem (CARDIZEM CD) Extended Release (24 hour) Dexilant 60 mg oral delayed release capsule 1 cap(s) orally once a day AM Pantoprazole Enteric Coated Tablet (PROTONIX)DOSE = 40 mg Oral DailyNotes from Pharmacy: Substitution for Dexlansoprazole 60 mg Oral Capsule DailyDexilant 60 mg oral delayed release capsule continued as the inpatient order Pantoprazole Eliquis 5 mg oral tablet 1 tab(s) orally 2 times a [id number] 3 PM Reviewed and Held Fish Oil 1000 mg oral capsule 1 cap(s) orally once a [id number]-Jan-2023 AM Reviewed and Held fluocinolone 0.01% otic solution 5 drop(s) to each affected ear 2 times a day, As [id number] Reviewed and Held furosemide 40 mg oral tablet 2 tab(s) orally once a [id number]-885 3 AM Furosemide TabletDOSE = 80 mg Oral Dailyfurosemide 40 mg oral tablet continued as the inpatient order Furosemide levothyroxine 50 mcg (0.05 mg) oral capsule 1 cap(s) orally once a day [id number] AM Levothyroxine Tablet (SYNTHROID)DOSE = 50 microgram(s) Oral DailyClinician Notes: Enteral feedings are held 1 hour pre and post doselevothyroxine 50 mcg (0.05 mg) oral capsule continued as the inpatient order Levothyroxine Macrobid 100 mg oral capsule 1 cap(s) orally 2 times a day, As Needed 17-Jan-2023 Reviewed and Held MiraLax oral powder for reconstitution 17 gram(s) orally once a [id number]-Jan-2023 AM Reviewed and Held propafenone 150 mg oral tablet 1 tab(s) orally 2 times a [id number]-Jan-2023 AM Propafenone Immediate Release Tablet (RYTHMOL)DOSE = 150 mg Oral 2 Times a Daypropafenone 150 mg oral tablet continued as the inpatient order Propafenone Immediate Release traMADol 50 mg oral tablet 1 tab(s) orally every 6 -[id number]-Jan-2023 Reviewed and Held Additional Current Orders Sodium Chloride 0.9% Infusion IV Bag Volume = 1,000 mL Run at: 500 mL/hr IntraVenous Normal [facility] Patient Profile - Adult v2on 01-17-2023 Patient Profile - Adult v2 Profile: Initial Info: How to be AddressedGrace(1) Spoken Language PreferredEnglish (1) Stated Reason for Admissionanemia Primary Contact Name and Numbertina [phone] Wants Family/Rep Notified of Admissionn/a; family present Notify PCPnotify PCP Informed of Patient Visiting Rightsyes Arrived Fromemergency department Patient Belongingsremains with patient Patient Belongings Remaining with Patientcell phone/electronics; clothing Medications Brought to Hospitalno General Health: Weight in kg72.4 kilogram(s) Weight in qfr765.6 pound(s) Weight Methodactual (measured) Scale Typebed Height in cm147.1 centimeter(s) Height in feet4 feet Height in inches9.95 inch(es) Height Methodstated BMI (kg/m2)33.459 square meter RSP Based Care: How would you like to participate in your carehowever I can What is the number one concern for you during this hospitalizationget me better and not faint again What is the most important thing we can do to support you during this hospitalizationget me well Is there anything we need to know to best care for younot really Substance: Smoking Statusnever smoker (2) Alcohol Usedenies(2) Drug Usedenies (2) Health Mgmt: Symptoms/Conditions Managed at Homecardiovascular Cardiovascular Symptoms/Conditionsdysrh ythmia Cardiovascular Managementmanaged Relationship/Environ: Resource/Environmental Concernsnone Primary Source of Support/Comfortchild(franky ) Lives Withspouse Living Arrangementshouse Services Anticipated at Transitionnone Anticipated Transition Tohome Significant IndicatorsComplete Information Review: Allergies, Home Meds and Significant Events have been Reviewed and Verified with Patient/Familyyes ALLERGY, INTOLERANCE, ADVERSE EVENT: Allergies: codeine: Drug, Other (Mild), Itching, Active Electronic Signatures: Babs Ramirez (HAYDE) (Signed 17-Jan-2023 17:22) Authored: Initial Info, General Health, RSP Based Care, Substance, Health Mgmt, Relationship/Environ, Additional Information Last Updated: 17-Jan-2023 17:22 by Babs Ramirez (HAYDE) References: 1. Data Referenced From Patient Profile - Procedure-H and P 15-Jun-2022 09:10 2. Data Referenced From Risk Screen - Adult Emergency 17-Jan-2023 13:07 [facility] Provider Note - ED v3on 04-1 Provider Note - ED v3 Provider Note: Chart Review: ED NOTES ED NOTES: HPI: Patient presents the ER today complaining of 1 month of black tarry stools. She states that about a month ago she was also diagnosed with what sounds like an SI joint fracture with no known trauma. She notes over the last 2-3 days she has been feeling increasingly weak and clammy. She does take Eliquis for A-fib. She does follow-up with Dr. Ocampo and had some lab work scheduled but due to the weakness was unable to get it done. She notes some nausea but otherwise denies any vomiting fever chest pain or shortness of breath. She notes her stools continue to be dark. Medical/Family HX: Thyroid disorder, colon polyps, A-fib, uterine cancer, cirrhosis of the liver, elevated cholesterol, A-fib Physical Exam I have reviewed the triage vital signs. Const: Well nourished, well developed, appears stated age, no acute distress Eyes: PERRL, EOM intact, no conjunctival injection, vision grossly normal HENT: Neck supple without meningismus , Moist mucous membranes, no pharyengeal swelling or exudate CV: Regular rate and rhythm, Warm, well-perfused extremities. Chest non tender RESP: Lungs clear bilaterally, Unlabored respiratory effort GI: soft, diffusely tender, non-distended, no masses : MSK: No gross deformities appreciated Back: Non tender, no pain with ROM Skin: Warm, dry. No rashes Neuro: Alert and oriented x4, GCS 15 , multicultural manager II-XII grossly intact. Sensation and motor function of extremities grossly intact. Psych: Appropriate mood and affect. I have reviewed and confirmed nurses/medics notes for patient past, social and family history. Portions of this note were dictated by speech recognition. An attempt at proof reading was made to minimize errors. Minor errors in mechanical engineering specialist may be present. HISTORY OF PRESENTING ILLNESS ALMA is a 82 year old Female and was seen by me at 17-Jan-2023 11:28. Triage Information: Most recent Vital Sign Value Date Temp (F): 98.1 01-17-2023 12:16 Temp (C): 36.7 01-17-2023 12:16 Heart Rate (beats/min): 87 01-17-2023 12:16 Respirations (breaths/min): 16 01-17-2023 12:16 SpO2 (%): 100 01-17-2023 12:16 BP Systolic (mm Hg): 120 01-17-2023 12:16 BP Diastolic (mm Hg): 69 01-17-2023 12:16 PAST MEDICAL HISTORY ALLERGIES/INTOLERANCES: Allergy Allergen: codeine Type: Drug Reaction: Other (Mild) Itching HEALTH HISTORY: Medical History Name:Thyroid disorder Code:E07.9 Name:Colon polyps Code:K63.5 Name:Afib Code:I48.91 Name:Uterine cancer Code:C55 Name:Bowel obstruction Code:K56.609 Name:High cholesterol Code:E78.00 Name:Cirrhosis of liver Code:K74.60 OUTPATIENT MEDICATIONS: Home Medications Review Status for Reconciliation: Complete Med Status: Patient Currently Takes Medications Drug Name: Amitiza 8 mcg oral capsule Instructions: 1 cap(s) orally 2 times a day Drug Name: atorvastatin 10 mg oral tablet Instructions: 1 tab(s) orally once a day Drug Name: Cartia XT 240 mg/24 hours oral capsule, extended release Instructions: 1 cap(s) orally once a day Drug Name: Dexilant 60 mg oral delayed release capsule Instructions: 1 cap(s) orally once a day Drug Name: traMADol 50 mg oral tablet Instructions: 1 tab(s) orally every 6 hours Drug Name: levothyroxine 50 mcg (0.05 mg) oral capsule Instructions: 1 cap(s) orally once a day Drug Name: aspirin 81 mg oral tablet Instructions: 1 tab(s) orally once a day Drug Name: furosemide 40 mg oral tablet Instructions: 2 tab(s) orally once a day Drug Name: MiraLax oral powder for reconstitution Instructions: 17 gram(s) orally once a day Drug Name: fluocinolone 0.01% otic solution Instructions: 5 drop(s) to each affected ear 2 times a day, As Needed Drug Name: Macrobid 100 mg oral capsule Instructions: 1 cap(s) orally 2 times a day, As Needed Drug Name: Eliquis 5 mg oral tablet Instructions: 1 tab(s) orally 2 times a day Drug Name: Fish Oil 1000 mg oral capsule Instructions: 1 cap(s) orally once a day Drug Name: propafenone 150 mg oral tablet Instructions: 1 tab(s) orally 2 times a day SIGNIFICANT EVENTS: Past Medical History Description:afib Description:knee replacements CRITICAL CARE RESULTS: Recent Lab Results: I have reviewed these laboratory results: Troponin I, High Sensitivity Trending View [id number] 13:05:00 17-Jan-2023 11:57:00 Troponin I, High Sensitivity5 5 Complete Blood Count + Differential 17-Jan-2023 11:57:00 ResultValue White Blood Cell Count 6.2 Red Blood Cell Count 2.86 L HGB 8.7 L HCT 26.8 L MCV 94 MCHC 32.5 PLT 202 RDW-CV 15.9 H Neutrophil % 68.0 Immature Granulocytes % 0.3 Lymphocyte % 22.9 Monocyte % 7.9 Eosinophil % 0.3 Basophil % 0.6 Neutrophil Count 4.21 Lymphocyte Count 1.42 Monocyte Count 0.49 Eosinophil Count 0.02 Basophil Count 0.04 (more content not included)... Normal [facility] Risk Screen - Adult Emergenc yon 01-17-2023 Risk Screen - Adult Emergency Preferred Language: Preferred Language: Preferred Language for Discussing Health Care (patient/designee)Jamil monroe Patient Preferred Pharmacy: Patient Preferred Pharmacy Statement: I have reviewed and updated the patient's preferred pharmacy selection for today's visit. Advanced Directives: Advance Directive/DNRno Family Violence Adult: Abuse Screen: Are you or have you been threatened or abused physically, emotionally, or sexually by anyoneno Learning Assessment (Patient): Learning Assessment (Patient): Patient is Able to be Assessed for Learningyes Factors Influencing Readiness to Learnacuteness of illness Factors that Impact Ability to Learnnone Devices/Methods Used to Communicatenone Learning Preferencesverbal instruction; written material Cultural Considerationsnone Developmental Considerationsnone Judaism Considerationsnone Learning Assessment (Other Learner): Learning Assessment (Other Learner): Other learner availableno Pressure Injury/TB/Substance: Pressure Injury: Pressure Injury Present on Admissionno Do you have a coughno Smoking Statusnever smoker Alcohol Usedenies Drug Usedenies Admission Risk Screen: Significant IndicatorsComplete CAGE: CAGE: Is this an injured patient at a Trauma Center ([facility]/[place] /[place]): no Electronic Signatures: Jasmin Richardson (HAYDE) (Signed 17-Jan-2023 13:08) Authored: Preferred Language, Patient Preferred Pharmacy, Advanced Directives, Family Violence Adult, Learning Assessment (Patient), Learning Assessment (Other Learner), Pressure Injury/TB/Substance, Pressure Injury, CAGE Last Updated: 17-Jan-2023 13:08 by Jasmin Richardson (HAYDE) Normal [facility] TROPONIN I, HIGH SENSITIVITY on 01-17-2023 TROPONIN I, HIGH SENSITIVITY 5 ng/L Normal 0 - 13 [facility] Comment on above: Result Comment: . Less than 99th percentile of normal range cutoff- Female and children under 18 years old <14 ng/L; Male <21 ng/L: Negative Repeat testing should be performed if clinically indicated. . Female and children under 18 years old 14-50 ng/L; Male 21-50 ng/L: Consistent with possible cardiac damage and possible increased clinical risk. Serial measurements may help to assess extent of myocardial damage. . >50 ng/L: Consistent with cardiac damage, increased clinical risk and myocardial infarction. Serial measurements may help assess extent of myocardial damage. . NOTE: Children less than 1 year old may have higher baseline troponin levels and results should be interpreted in conjunction with the overall clinical context. . NOTE: Troponin I testing is performed using a different testing methodology at [facility]. Direct result comparisons should only be made within the same method. Performed By: #### T [facility] #### [address] [address] TROPONIN I, HIGH SENSITIVITY 5 ng/L Normal 0 - 13 [facility] Comment on above: Result Comment: . Less than 99th percentile of normal range cutoff- Female and children under 18 years old <14 ng/L; Male <21 ng/L: Negative Repeat testing should be performed if clinically indicated. . Female and children under 18 years old 14-50 ng/L; Male 21-50 ng/L: Consistent with possible cardiac damage and possible increased clinical risk. Serial measurements may help to assess extent of myocardial damage. . >50 ng/L: Consistent with cardiac damage, increased clinical risk and myocardial infarction. Serial measurements may help assess extent of myocardial damage. . NOTE: Children less than 1 year old may have higher baseline troponin levels and results should be interpreted in conjunction with the overall clinical context. . NOTE: Troponin I testing is performed using a different testing methodology at [facility] than [facility]. Direct result comparisons should only be made within the same method. Performed By: #### T [facility] #### [address] [address] Triage - EDon 01-17-2023 Triage - ED Quick Triage: The patient and/or guardian verbally acknowledges placement for services into the following (when Urgent Care Service hours are operating):emergency department Chart Review: ARRIVAL INFORMATION Mode of Arrival: ambulance Agency: City Agency Name: [facility] CHIEF COMPLAINT ALMA ECHEVERRIA is a Female patient with a chief complaint of weakness (To ED per [facility] squad from home with c/o gen weakness for last 2-3 days. She denies any pain with the weakness. She reports that she has been using a walker to ambulate for quite a while. Found out about a month ago that she had a non traumatic pelvic fracture. About that time she also started having black stools. She denies any injury or fall. Was told that she has blood in her stool. Is to follow up with GI soon. Does take Eliquis, but did not take her dose today.). Triage Date/Time: 17-Jan-2023 11:26 TEDDY: 3 Pain Rating (0-10): 0 = None Pain location: denies Vital Signs: Temperature: 98.1F ( 36.7C) taken temporal Blood Pressure: 120/69 Mean: Heart Rate: 87 Respiratory Rate: 16 Pulse Oximetry: 100% on room air, no respiratory support. Weight: 154.3 pounds. Calculated 70.0 kg. Leesa Coma Scale: Best Eye Response: (E4) spontaneous Best Motor Response: (M6) obeys commands Best Verbal Response: (V5) oriented Leesa Score: 15 Cough lasting greater than 3 weeks: no Allergies: yes Mask applied: yes Patient has homicidal thoughts: no Symptom Notes: . Symptoms Are POSITIVE For: weakness. Symptoms Are Negative For: blurred vision, chills, confusion, dehydration, diaphoresis, headache, loss of consciousness and nausea. Last Known Well: unknown Risk Screens Suicide Risk Screen In the Past Month: Have you wished you were or wished you could go to sleep and not wake up no In the Past Month: Have you had any actual thoughts of killing yourself no In Your Lifetime: Have you ever done anything, started to do anything, or prepared to do anything to end your life no Ceballos Fall Scale Screening Has the patient fallen before (or is the patient in the ED as a result of a fall) has not had a fall Does the patient have an impaired gait has impaired gait Is the patient cognitively impaired not cognitively impaired Ceballos Fall Scale History of falling (immediate or previous) no (0) Secondary Diagnosis yes (15) Intravenous Therapy/ Heparin/Saline Lock yes (20) Gait/Transferring weak (10) Ambulatory Aids crutches/walker/cane (15) Mental Status oriented to own ability (0) Ceballos Fall Risk Score: 60 Interventions: Ceballos Fall Interventions: HIGH INTERVENTIONS *Low and Moderate Interventions Plus: * supervised toileting at all times TRAVEL HISTORY Travel History Coronavirus Screening: no exposure or symptoms Travel Exposure History: NO travel to International locations in the past 30 days PAIN Pain Scale Used: RIMMA Pain Rating (0-10): 0 = None Past Medical History: Past Medical History Reviewedyes knee replacements: Past Medical History, Active afib: Past Medical History, Active Electronic Signatures: Jasmin Richardson (HAYDE) (Signed 17-Jan-2023 12:23) Entered: Risk Screens, Pain, Travel History, Chart Review, Scores, Past Medical History Authored: Quick Triage, Risk Screens, Pain, Travel History, Chart Review, Scores, Past Medical History Last Updated: 17-Jan-2023 12:23 by Jasmin Richardson (HAYDE) [facility] URINALYSIS WITH CULTURE IF I NDICATEDon 01-17-2023 Appearance (U) Canceled [facility] Comment on above: Order Comment: TEST URINALYSIS WITH CULTURE IF INDICATED WAS CANCELLED, 01/17/2023 18:43 nsr. Performed By: #### B NP2 #### [place] [address] ASCORBIC ACID Canceled [facility] Comment on above: Order Comment: TEST URINALYSIS WITH CULTURE IF INDICATED WAS CANCELLED, 01/17/2023 18:43 nsr. Result Comment: Conc entrations > = 20 mg/dL of ascorbic acid can be expected to cause strong interference in the reactions testing for glucose, nitrite and blood. It is recommended to discontinue Vitamin C administration and retest in 10 hours. Performed By: #### B NP2 #### [address] [address] Bilirubin Ql (U) Canceled [facility] Comment on above: Order Comment: TEST URINALYSIS WITH CULTURE IF INDICATED WAS CANCELLED, 01/17/2023 18:43 nsr. Performed By: #### B NP2 #### [address] [address] Color (U) Canceled [facility] Comment on above: Order Comment: TEST URINALYSIS WITH CULTURE IF INDICATED WAS CANCELLED, 01/17/2023 18:43 nsr. Performed By: #### B NP2 #### [address] [address] Glucose Ql (U) Canceled [facility] Comment on above: Order Comment: TEST URINALYSIS WITH CULTURE IF INDICATED WAS CANCELLED, 01/17/2023 18:43 nsr. Performed By: #### B NP2 #### [address] [address] Hemoglobin Ql (U) Canceled [facility] Comment on above: Order Comment: TEST URINALYSIS WITH CULTURE IF INDICATED WAS CANCELLED, 01/17/2023 18:43 nsr. Performed By: #### B NP2 #### [address] [address] Ketones Ql (U) Canceled [facility] Comment on above: Order Comment: TEST URINALYSIS WITH CULTURE IF INDICATED WAS CANCELLED, 01/17/2023 18:43 nsr. Performed By: #### B NP2 #### [address] [address] Leukocyte esterase Test strip Ql (U) Canceled [facility] Comment on above: Order Comment: TEST URINALYSIS WITH CULTURE IF INDICATED WAS CANCELLED, 01/17/2023 18:43 nsr. Performed By: #### B NP2 #### [address] [address] Nitrite Ql (U) Canceled [facility] Comment on above: Order Comment: TEST URINALYSIS WITH CULTURE IF INDICATED WAS CANCELLED, 01/17/2023 18:43 nsr. Performed By: #### B NP2 #### [address] [address] pH Canceled [facility] Comment on above: Order Comment: TEST URINALYSIS WITH CULTURE IF INDICATED WAS CANCELLED, 01/17/2023 18:43 nsr. Performed By: #### B NP2 #### [address] [address] Protein Ql (U) Canceled [facility] Comment on above: Order Comment: TEST URINALYSIS WITH CULTURE IF INDICATED WAS CANCELLED, 01/17/2023 18:43 nsr. Performed By: #### B NP2 #### [address] [address] Specific gravity (U) [Rel density] Canceled [facility] Comment on above: Order Comment: TEST URINALYSIS WITH CULTURE IF INDICATED WAS CANCELLED, 01/17/2023 18:43 nsr. Performed By: #### B NP2 #### [place] [id number] UROBILINOGEN Canceled [facility] Comment on above: Order Comment: TEST URINALYSIS WITH CULTURE IF INDICATED WAS CANCELLED, 01/17/2023 18:43 nsr. Performed By: #### B NP2 #### [address] [address] Established Visit (Pain Medi cine)on 01-06-2023 Established Visit (Pain Medicine) Diagnoses/Problems Lumbar spondylolysis (738.4) (M43.06) Lumbar neuritis (724.4) (M54.16) Lumbar stenosis with neurogenic claudication (724.03) (M48.062) Piriformis syndrome of right side (355.0) (G57.01) Sciatic nerve pain (724.3) (M54.30) Sacral fracture (805.6) (S32.10XA) Orders Sacral fracture Wheelchair Standard Non-Motorized; Status:Complete; Done: 06Jan2023 Provider Impressions Patient is an 82-year-old female with a past medical history significant for lumbar stenosis, lumbar neuritis, sacral insufficiency fracture, piriformis syndrome and sciatic nerve inflammation on recent lumbar and pelvis MRI. We reviewed the MRI report and films. We discussed different options. At this time, her right sided buttock discomfort is what is the most bothersome to her. This is significantly affecting her quality of life and activities of daily. She is not able to do anything. She has previously failed all reasonable conservative treatments. Based on her failure to improve with conservative treatments, her MRI findings and her pain pattern I recommended to patient a right-sided piriformis/sciatic nerve injection. We also discussed a neurosurgical consult for the sacral fracture. She would [facility] to see the [facility]. We will facilitate this referral. She is going to follow-up with her services for the injection and then 3 weeks after. Call the clinic sooner if necessary. Chief Complaint Patient is following up from lumbar and pelvis MRI. Patient states her pain has been worse lately. Patient rates her pain a 10/10. Patient states she is tearful at times due to her pain. Patient states her pain is in her mid back and right side of her lower back. Patient states it radiates down her right leg to her knee. She feels her leg is getting worse. Patient is in a wheelchair today. She states it's getting extremely difficult for her to ambulate. Alcohol screen completed, negative. Adult Risk Screening Living Will. Living Will: No living will on file. Healthcare POA: Health care proxy on file. Declaration of Mental Health Treatment: No mental health treatment on file. Domestic Violence Screen: Does not feel threatened or abused physically, emotionally or sexually. Do you feel UNSAFE? The patient feels safe in the home. Single alcohol screening question: In the past year the patient has had 5 or more drinks (men) or 4 or more drinks (women)? 0 time(s). Reference Documentation See scanned note MARYLU. History of Present Illness On a scale of 0 to 10, the patient rates the pain at 10. Pain Location: Low Back Pain. Pain Quality: Aching, Burning, Sharp, Stabbing and Throbbing. Pain Radiation: Radiates down right leg to knee. Sensory/ Motor: None. Timing/Duration: Constant and > 12 weeks duration. Patient Education:1 Inj. education completed written and verbally.1 . Patient is an 82-year-old female who presents today with her after undergoing a lumbar MRI followed by a pelvis MRI. She continues to have complaints of lower back pain with right buttock pain and right radiating leg pain. Nothing below the knee. She states that it is mainly her right buttock and thigh that hurt. She has a history of right hip replacement. This has been present over the last 6 months but continuously getting worse. She rates it a 10/10. She cannot stand or walk at all on her own right now because of the pain. She states that she is essentially homebound. She is currently in a wheelchair. She states that things have been getting more more difficult. She is having difficulty with any physical activities. She does use tramadol given to her by her PCP. She tolerates this. It does somewhat help her but unfortunate, she is still in a lot of discomfort and wonders what else she can do. It should be noted that she is also currently on Cipro for UTI. 1 Amended By: Dariela Hwang; Jan 06 2023 3:23 PM ESTReview of Systems 13 systems all normal except noted in HP. Active Problems Acute UTI (599.0) (N39.0) AF (paroxysmal atrial fibrillation) (427.31) (I48.0) Hanley's esophagus (530.85) (K22.70) Cancer of skin, squamous cell (173.92) (C44.92) Chronic bilateral low back pain without sciatica (724.2,338.29) (M54.50,G89.29) Chronic liver disease and cirrhosis (571.9,571.5) (K74.60,K76.9) Class 1 obesity with body mass index (BMI) of 34.0 to 34.9 in adult (278.00,V85.34) (E66.9,Z68.34) Colon polyps (211.3) (K63.5) Compensated hypothyroidism (244.9) (E03.9) Constipation (564.00) (K59.00) DDD (degenerative disc disease), 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) Diverticulitis, colon (562.11) (K57.32) Dyspepsia (536.8) (R10.13) Dysuria (788.1) (R30.0) Edema, unspecified type (782.3) (R60.9) Encounter for immunization (V03.89) (Z23) Excessive weight loss (783.21) (R63.4) Frequent UTI (599.0) (N39.0) Gait difficulty (781.2) (R26.9) Glossitis (529.0) (K14.0) Hydroureter on right (593.5) (N13.4) Hyperlipemia (272.4) (E78.5) Hypertension (40 (more content not included)... [facility] Communicationon 03-3 Therapy Communication Message ALMA ECHEVERRIA was (D/C)- last seen: 12/15/22. Pt self-discharged from skilled Physical Therapy at this time due to other medical issues causing her to no longer be appropriate for skilled PT. Pt was not able to be fully re-assessed due to self-discharging and not attending final re-evaluation appointment. Refer back in future if necessary. Signatures Electronically signed by : Elina Diaz, PT; Jan 06 2023 3:58PM EST (Author) [facility] PELVIS W/O CONTRASTon MRI PELVIS W/O CONTRAST Patient Name: ALMA ECHEVERRIA STUDY: MRI of the sacrum/coccyx without contrast dated 01/04/2023. INDICATION: pain S32.10XA: Sacral fracture COMPARISON: None. Correlation is made with 12/31/2022 MRI of the lumbar spine ACCESSION NUMBER(S): [id number] ORDERING CLINICIAN: MARIA TERESA EPPERSON TECHNIQUE: Multiplanar multisequence MRI of the sacrum/coccyx without intravenous contrast was performed according to musculoskeletal protocol. FINDINGS: OSSEOUS STRUCTURES AND JOINTS: There is increased T2 signal intensity in the right sacral ala with associated low T1 signal intensity with a degree of vertical coalescence of the low T1 signal intensity particularly seen at the mid to inferior sacrum. There is increased T2 signal intensity with buckling the 1st coccygeal segment. Mild degenerative changes seen of the SI joints.. Degenerative changes seen in the visualized spine, severe at multiple levels. There is lumbar spine vertebral body height loss. The spinal findings are further discussed on the 12/31/2022 MRI. There is partial visualization of a right hip arthroplasty. MUSCLES, TENDONS, AND LIGAMENTS: There is a degree of generalized atrophy in the musculature with the greatest degree of atrophy being in the visualized paraspinal musculature. There is some atrophy to the right-sided musculature likely related to disuse. There is feathery increased T2 signal intensity within the origin of the right piriformis muscle. Muscles and tendons are otherwise intact as visualized. Ligaments are not well assessed on this exam. SOFT TISSUES: There is note of some mild increased T2 signal intensity around the sciatic neurovascular bundle in the pelvis. IMPRESSION: 1. Vertical right sacral insufficiency fracture. 2. Buckled fracturing the 1st coccygeal segment. Knowledge of any history of trauma/fall may be helpful. 3. Mild reactive strain in the right piriformis muscle. 4. Reactive edema around the sciatic neurovascular bundle in the pelvis likely related to the sacral insufficiency fracture. Knowledge of any symptoms of sciatica may be helpful. 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 COMPARISON: CT abdomen and pelvis from 08/12/2022. ACCESSION NUMBER(S): [id number] ORDERING CLINICIAN: BURT GONZALEZ TECHNIQUE: MRI of the lumbar spine was performed with acquisition of sagittal T2, sagittal T1, sagittal STIR, axial T1, and axial T2 weighted sequences FINDINGS: This report assumes 5 non-rib bearing lumbar vertebral bodies. The lowest intervertebral disc will be labeled L5-S1. There is moderate levocurvature. There is stable grade 1 anterolisthesis at L4-L5. There is stable mild retrolisthesis at L1-L2. Compared to the MRI from 08/08/2018, there is new moderate anterior wedging of the T12 vertebral body with approximately 50% height loss and resulting kyphotic deformity at T11-T12 with slight retrolisthesis also at T11-T12, but unchanged since the prior CT. There is slight posterior bulging of the superior and posterior T12 endplate, but unchanged since the prior CT. There is new mild scalloping of the inferior endplate of L1 with mild height loss, but unchanged since the prior CT. There is new approximately 50% height loss of the L3 vertebral body. Height loss has further decreased compared to the prior CT by approximately 35-40%. There is new 40% height loss of the L4 vertebral body, but unchanged since the recent CT. Remaining vertebral body heights are maintained. There is no edematous signal within the visualized vertebral bodies. There is edematous signal located within the right sacral ala with associated T1 hypointense signal which is most consistent with a sacral insufficiency fracture. A distinct fracture line is not clearly visualized. There is new mild intervertebral disc height narrowing at T11-T12 and stable mild intervertebral disc height narrowing at L5-S1. There are chronic degenerative endplate changes at multiple levels. The conus medullaris terminates at the level of L2-L3 and is unremarkable in appearance. At T11-T12, there is new partial effacement of the ventral thecal sac due to posterior bulging of the superior and posterior T12 endplate and diffuse disc bulge. There is no spinal canal stenosis. There is no neural foraminal narrowing. There is moderate bilateral facet osteoarthropathy. At T12-L1, there is a stable small diffuse disc bulge. There is no spinal canal stenosis or neural foraminal narrowing. There is mild bilateral facet osteoarthropathy. At L1-L2, there is a diffuse disc bulge with osteophytic spurring which causes moderate spinal canal stenosis. There is extension of disc and osteophyte into the bilateral neural foramina and there is at most mild bilateral neural foraminal narrowing. There is [id number] bilateral facet osteoarthropathy. At L2-L3, there is a diffuse disc bulge with osteophytic spurring which causes moderate spinal canal stenosis, unchanged. There is extension of disc and osteophyte into the bilateral neural foramina and there is resulting mild bilateral neural foraminal narrowing. There is moderate bilateral facet osteoarthropathy. At L3-L4, there is a diffuse disc bulge with osteophytic spurring which along with ligamentum flavum thickening and facet osteoarthropathy causes moderate spinal canal stenosis, essentially unchanged. There is extension of disc and osteophyte into the bilateral neural foramina and along with facet arthropathy causes moderate right and [id number] left neural foraminal narrowing. At L4-L5, there is marked spinal canal stenosis due to grade 1 anterolisthesis, diffuse disc bulge, ligamentum flavum thickening, and marked facet osteoarthropathy, similar to prior. At L5-S1, there is a diffuse disc bulge with osteophytic spurring which partially effaces the ventral thecal sac. There is no spinal canal stenosis. There is extension of disc and osteophyte into the left neural foramen resulting in moderate to marked neural foraminal narrowing. There is at most mild right neural foraminal narrowing. There is marked left and mild right facet osteoarthropathy. IMPRESSION: 1. There is edematous signal located within the right sacral ala which has imaging characteristics that is highly suspicious for a sacral insufficiency fracture. 2. Compared to the prior MRI from 2018, there is new height loss of multiple vertebral bodies as detailed above. The compression fractures appear chronic in etiology. Compared to the CT abdomen and pelvis from 08/12/2022, height loss of the L3 vertebral body has increased, otherwise height loss of the other vertebral bodies are unchanged. 3. Multilevel degenerative changes of the lumbar spine including marked spinal canal stenosis at L4-L5. A yellow verify mes (more content not included)... 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 : No Is the patient or breast feeding? : No What are the patient's signs and symptoms? : lower back and right leg pain Provider Impressions Patient is an 82-year-old female with a past medical history significant for lumbar spondylolisthesis, possible instability at L3-4, and lumbar neuritis. She has undergone senior resident care director with ultrasound treatments every week without improvement. She has been doing physical therapy and home exercise program without improvement. We reviewed her x-rays. Based on the x-ray findings, her pain pattern, her failure to improve with conservative treatments, and the significant debilitation that the pain is causing her I did recommend to her a lumbar MRI for possible injection options versus surgical consultation depend on the results. Patient is agreeable. Follow-up after for reevaluation and discussion of options. OARRS reviewed. Patient does use tramadol given to her by her PCP. She is going to continue on this. Chief Complaint Patient is a new patient today. Patient complains of pain in her mid lower back to right side. It radiates into her right hip and leg down to just above her knee. Patient states this pain started about 1 month ago. She denied injury she states she just started having pain one day. Patient states her pain is worse with walking. She still has pain when sitting but it is less severe. Patient rates her pain a 10/10 at this time. Patient ambulated in today with her husbands support and a cane. She states she's been using a walker at home. Patient states her PCP prescribes Tramadol for her bone on bone back pain. Patient denied smoking. Depression screen completed, negative. BMI NA due to age. ORT score 3. MARYLU score 34.1 1 Amended By: Elisha Valencia; Dec 29 2022 2:07 PM ESTAdult Risk Screening Living Will. Living Will: No living will on file. Healthcare POA: Health care proxy on file. Declaration of Mental Health Treatment: No mental health treatment on file. Domestic Violence Screen: Does not feel threatened or abused physically, emotionally or sexually. Do you feel UNSAFE? The patient feels safe in the home. Depression/Suicide Screening: During the past 2 weeks, the patient has not felt down, depressed or hopeless. During the past 2 weeks, the patient has not felt little interest or pleasure in doing things. She does not have a risk of suicide. She has not had thoughts of harming others. Reference Documentation See scanned note MARYLU, MMA, ORT. History of Present Illness On a scale of 0 to 10, the patient rates the pain at 10. Pain Location: Low Back Pain and RIght. Pain Radiation: Radiates into right hip and leg. Sensory/ Motor: Weakness and legs. Timing/Duration: Constant and < 6 weeks duration. Exacerbating Factors: motion, standing and walking. Alleviating Factors: Other: ___. 24 Hour Behavior: Symptoms are the same in the am. Symptoms are the same as the day progresses. Symptoms are the same in the pm. Symptoms are the same when lying down. Psychosocial Factors vs Last Visit: Physical Functioning: Worse. Family Relationships: Same. Social Relationships: Same. Mood: Same. Sleep Patterns: Worse. Overall Functioning: Worse. Response to current treatment:. No, I am not experiencing side effects from current pain reliever(s). The patient is being seen for an initial evaluation of back pain. This condition is not related to a specific injury. The patient has been previously evaluated by a primary care provider, by a specialty provider and Christine Voss at Dr. Hathaway's office (ortho). Past evaluation has included spine x-rays. Past treatment has included opioid analgesics and physical therapy. Past procedures have included Years ago she had injections with Dr. Fleming. She hasn't seen him in years. Patient is an 82-year-old female who presents today with her who is already our patient. She presents today with complaints of lower back pain with right buttock pain and right radiating leg pain. She has a history of right hip replacement. Patient started with her orthopedic surgeon. She had some x-rays and she was referred here for the pain. They feel that some of it was coming from her lower back. She rates the discomfort a 10/10. She states that it started approximately 6 months ago but over the last month it got worse. Patient has been seeing her chiropractor every week for the last 6 months for treatments and ultrasound treatment (more content not included)... [facility] Therapy Communicationon 12-09 Therapy Communication Message ALMA ECHEVERRIA canceled today . Patient cancelled today's appointment due to she is unable to walk. Signatures Electronically signed by : Cecilia Richardson PTA; Dec 29 2022 3:05PM EST (Author) [facility] PT Progress Noteon 3 PT Progress Note Therapy Diagnosis Assessed Gait difficulty (781.2) (R26.9) Muscular deconditioning (781.99) (R29.898) Chronic bilateral low back pain without sciatica (724.2,338.29) (M54.50,G89.29) DDD (degenerative disc disease), 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) Plan Goals: Goals set and discussed today. By discharge ALMA ECHEVERRIA will achieve the following goals: Pt will demo and report compliance with HEP in order to augment POC goals and progression toward independence with symptom management for better outcomes once D/C from POC. , by week 2, goal met Activity Limitation: Pt will demo improved ease with ascending/descending stairs with reciprocal pattern and improved eccentric control to decrease fall risk. , goal partially met Posture: Pt will be able to demo improved upright posture with prolonged standing/ambulation by >/=25% for improved ease with ADLs and IADLs throughout the day., goal partially met Strength: Pt will demo improved MMT by >/= 1 point on 0-5 point scale in BLE's for improved strength and stability, and improved ease with transfers, lifting/carrying, and proper mechanics with ADL?s AND IADL?s. , goal partially met MARYLU, Pt will report subjective improvement with score on MARYLU improved by >/= 5 points for return to PLOF, improved QOL, and improved ease with ADL?s AND IADL?s. , goal met Planned interventions include: cryotherapy, dry needling, education/instruction, electrical stimulation, gait training, home program, hot pack, kinesiotaping, manual therapy, mechanical traction, neuromuscular re-education, self care/home management, therapeutic activities, therapeutic exercises, vasopneumatic device, vasopneumatic device w/ cold and IASTM/CUPPING. Frequency and duration: 1 time(s) a week, for 5 weeks, for 10 visits. Potential to achieve rehab goals is good Plan to continue with DLS and glute retraining exercises with addition of dynadisc in sitting position when able to tolerate as well as progression of standing core/glute exercises and balance activities to improve ease with ADL;s and IADL's. Assessment Patient identified by name AND . Patient wore a mask during treatment d/t Covid-19 precautions. Pt reassessed this date by supervising PT with improvements noted in MMT of BLEs as well as improved TUG and 5 rep Sit<>stand test scores this date compared to eval. Pt deferred performing any ther-ex or receiving and manual techniques this date and just wanted to perform re-assessment and discuss updates to HEP with new HO given. Discussed continued skilled PT to progress with improving functional posture and tolerance to prolonged standing/ambulation, as well as progression of balance acivities. Adult Risk Screening There are no spiritual/cultural practices/values/needs that are important to know Initial Fall Risk Screening: ALMA has not fallen in the last 6 months. Her fall did not result in injury. ALMA has a fear of falling. She needs assistance with sometimes uses cane for stairs. Does not need assistance walking in her home. She does not need assistance in an unfamiliar setting. The patient is not using an assistive device. Fall Risk Screening: Patient is identified as a fall risk. Care Plan: Moderate Risk: Low risk interventions plus: do not leave patient on exam table unattended, supervised activity, educate patient/family on falls prevention, review safety initiatives with patient/family, family at bedside as allowed, yellow falls risk band, focus rounding attention, locate patient in area of high visibility, wheelchair, bed, or personal alarm, bedside commode, elevated toilet seat and pharmacy consult for medication concerns. Please identify location of pain: low back. Pain Quality: aching, dull and tightness. The pain makes it hard for the patient to do these things: walking and house work. Living Will. Living Will: No living will on file. Healthcare POA: Health care proxy on file. Declaration of Mental Health Treatment: No mental health treatment on file. Domestic Violence Screen: Does not feel threatened or abused physically, emotionally or sexually. Do you feel UNSAFE? The patient feels safe in the home. Depression/Suicide Screening: During the past 2 weeks, the patient has not felt down, depressed or hopeless. During the past 2 weeks, the patient has not felt little interest or pleasure in doing things. Insurance Insurance reviewed Visit number: 5 Authorization not required after evaluation POC: 02/16 Medicare/[employer] Supplement (no prior therapy Supervising PT: Elina Diaz PT, DPT, Cert DN PT Dx: M54.50; R29.898; R26.9; M51.37 Medicare Certification Period: Beginnin2022 Endin2022 Subjective Patient reports:. Pt notes overall she does feel like the therapy has helped so far as she can tell she can stand upright more and can cook longer. Having a flare up of fibromyalgia today and doesn't want to do too many exercises. She already did her HEP toda (more content not included)... [facility] Re-eval Noteon 12-15 Therapy Re-eval Note Therapy Diagnosis Assessed 1. Gait difficulty (781.2) (R26.9) 2. Muscular deconditioning (781.99) (R29.898) 3. Chronic bilateral low back pain without sciatica (724.2,338.29) (M54.50,G89.29) 4. DDD (degenerative disc disease), 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) Plan Goals: Goals set and discussed today. By discharge ALMA ECHEVERRIA will achieve the following goals: Pt will demo and report compliance with HEP in order to augment POC goals and progression toward independence with symptom management for better outcomes once D/C from POC. , by week 2, goal met Activity Limitation: Pt will demo improved ease with ascending/descending stairs with reciprocal pattern and improved eccentric control to decrease fall risk. , goal partially met Posture: Pt will be able to demo improved upright posture with prolonged standing/ambulation by >/=25% for improved ease with ADLs and IADLs throughout the day., goal partially met Strength: Pt will demo improved MMT by >/= 1 point on 0-5 point scale in BLE's for improved strength and stability, and improved ease with transfers, lifting/carrying, and proper mechanics with ADL?s AND IADL?s. , goal partially met MARYLU, Pt will report subjective improvement with score on MARYLU improved by >/= 5 points for return to PLOF, improved QOL, and improved ease with ADL?s AND IADL?s. , goal met Planned interventions include: cryotherapy, dry needling, education/instruction, electrical stimulation, gait training, home program, hot pack, kinesiotaping, manual therapy, mechanical traction, neuromuscular re-education, self care/home management, therapeutic activities, therapeutic exercises, vasopneumatic device, vasopneumatic device w/ cold and IASTM/CUPPING. Frequency and duration: 1 time(s) a week, for 5 weeks, for 10 visits. Potential to achieve rehab goals is good Plan to continue with DLS and glute retraining exercises with addition of dynadisc in sitting position when able to tolerate as well as progression of standing core/glute exercises and balance activities to improve ease with ADL;s and IADL's. Assessment Patient identified by name AND . Patient wore a mask during treatment d/t Covid-19 precautions. Pt reassessed this date by supervising PT with improvements noted in MMT of BLEs as well as improved TUG and 5 rep Sit<>stand test scores this date compared to eval. Pt deferred performing any ther-ex or receiving and manual techniques this date and just wanted to perform re-assessment and discuss updates to HEP with new HO given. Discussed continued skilled PT to progress with improving functional posture and tolerance to prolonged standing/ambulation, as well as progression of balance acivities. Adult Risk Screening There are no spiritual/cultural practices/values/needs that are important to know Initial Fall Risk Screening: ALMA has not fallen in the last 6 months. Her fall did not result in injury. ALMA has a fear of falling. She needs assistance with sometimes uses cane for stairs. Does not need assistance walking in her home. She does not need assistance in an unfamiliar setting. The patient is not using an assistive device. Fall Risk Screening: Patient is identified as a fall risk. Care Plan: Moderate Risk: Low risk interventions plus: do not leave patient on exam table unattended, supervised activity, educate patient/family on falls prevention, review safety initiatives with patient/family, family at bedside as allowed, yellow falls risk band, focus rounding attention, locate patient in area of high visibility, wheelchair, bed, or personal alarm, bedside commode, elevated toilet seat and pharmacy consult for medication concerns. Please identify location of pain: low back. Pain Quality: aching, dull and tightness. The pain makes it hard for the patient to do these things: walking and house work. Living Will. Living Will: No living will on file. Healthcare POA: Health care proxy on file. Declaration of Mental Health Treatment: No mental health treatment on file. Domestic Violence Screen: Does not feel threatened or abused physically, emotionally or sexually. Do you feel UNSAFE? The patient feels safe in the home. Depression/Suicide Screening: During the past 2 weeks, the patient has not felt down, depressed or hopeless. During the past 2 weeks, the patient has not felt little interest or pleasure in doing things. Insurance Insurance reviewed Visit number: 5 Authorization not required after evaluation POC: 02/16 Medicare/[employer] Supplement (no prior therapy Supervising PT: Elina Diaz PT, DPT, Cert DN PT Dx: M54.50; R29.898; R26.9; M51.37 Medicare Certification Period: Beginnin2022 Endin2022 Subjective Patient reports:. Pt notes overall she does feel like the therapy has helped so far as she can tell she can stand upright more and can cook longer. Having a flare up of fibromyalgia today and doesn't want to do too many exercises. She already did (more content not included)... [facility] PT Progress Noteon 3 PT Progress Note Therapy Diagnosis Assessed DDD (degenerative disc disease), 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) Gait difficulty (781.2) (R26.9) Muscular deconditioning (781.99) (R29.898) Chronic bilateral low back pain without sciatica (724.2,338.29) (M54.50,G89.29) Plan Goals: Goals set and discussed today. By discharge ALMA ECHEVERRIA will achieve the following goals: Pt will demo and report compliance with HEP in order to augment POC goals and progression toward independence with symptom management for better outcomes once D/C from POC. , by week 2 Activity Limitation: Pt will demo improved ease with ascending/descending stairs with reciprocal pattern and improved eccentric control to decrease fall risk. Posture: Pt will be able to demo improved upright posture with prolonged standing/ambulation by >/=25% for improved ease with ADLs and IADLs throughout the day. Strength: Pt will demo improved MMT by >/= 1 point on 0-5 point scale in BLE's for improved strength and stability, and improved ease with transfers, lifting/carrying, and proper mechanics with ADL?s AND IADL?s. MARYLU, Pt will report subjective improvement with score on MARYLU improved by >/= 5 points for return to PLOF, improved QOL, and improved ease with ADL?s AND IADL?s. Planned interventions include: cryotherapy, dry needling, education/instruction, electrical stimulation, gait training, home program, hot pack, kinesiotaping, manual therapy, mechanical traction, neuromuscular re-education, self care/home management, therapeutic activities, therapeutic exercises, vasopneumatic device, vasopneumatic device w/ cold and IASTM/CUPPING. Frequency and duration: 2 time(s) a week, for 4 weeks, for 9 visits. Potential to achieve rehab goals is good Patient has missed a few of her treatments and would like to make these appointments up. Patient has reassessment next treatment. Assessment Patient identified by name AND . Patient wore a mask during treatment d/t Covid-19 precautions. Treatment consisted of ther ex's for core strengthening and manual therapy for decreased tissue restrictions of glutes, IT band, and hips. Patient has good recruitment of TrA's for isometric contraction, but does lose this contraction when performing the ex's. Low back pain decreased post treatment. Adult Risk Screening There are no spiritual/cultural practices/values/needs that are important to know Initial Fall Risk Screening: ALMA has not fallen in the last 6 months. Her fall did not result in injury. ALMA has a fear of falling. She needs assistance with sometimes uses cane for stairs. Does not need assistance walking in her home. She does not need assistance in an unfamiliar setting. The patient is not using an assistive device. Fall Risk Screening: Patient is identified as a fall risk. Care Plan: Moderate Risk: Low risk interventions plus: do not leave patient on exam table unattended, supervised activity, educate patient/family on falls prevention, review safety initiatives with patient/family, family at bedside as allowed, yellow falls risk band, focus rounding attention, locate patient in area of high visibility, wheelchair, bed, or personal alarm, bedside commode, elevated toilet seat and pharmacy consult for medication concerns. Pain Scale: On a scale of 0 to 10, the patient rates the pain at 3. Please identify location of pain: low back. Pain Quality: aching, dull and tightness. The pain makes it hard for the patient to do these things: walking and house work. Living Will. Living Will: No living will on file. Healthcare POA: Health care proxy on file. Declaration of Mental Health Treatment: No mental health treatment on file. Domestic Violence Screen: Does not feel threatened or abused physically, emotionally or sexually. Do you feel UNSAFE? The patient feels safe in the home. Depression/Suicide Screening: During the past 2 weeks, the patient has not felt down, depressed or hopeless. During the past 2 weeks, the patient has not felt little interest or pleasure in doing things. Insurance Insurance reviewed Visit number: 4 Authorization not required after evaluation POC: 4 Medicare/[employer] Supplement (no prior therapy Supervising PT: Elina Diaz PT, DPT, Cert DN PT Dx: M54.50; R29.898; R26.9; M51.37 Medicare Certification Period: Beginnin2022 Endin2022 Subjective Patient reports:. Pretreatment pain: 3/10 low back, 0/10 R hip Post treatment pain: 2/10 low back, 0/10 R hip States that she finished her prednisone last and is still doing pretty good. Home program performing as directed: Yes. Precautions: Fall Risk: moderate Right hip replacement; B/L TKR; Right shoulder replacement; Fibromyalgia. Treatment Time in clinic started at 2:05 pm Time in clinic ended at 2:45 pm Total time in clinic is 40 minutes. Total timed code time is 38 minutes. Therapeutic exercise (19174): timed minutes 30, units 2 . Pt edu on HEP (more content not included)... [facility] PT Progress Noteon 3 PT Progress Note No report was sent [facility] Therapy Communicationon Therapy Communication Message ALMA ECHEVERRIA canceled today no reason given to this PT. Signatures Electronically signed by : Elina Diaz, PT; Dec 08 2022 5:17PM EST (Author) [facility] PT Progress Noteon 3 PT Progress Note Therapy Diagnosis Assessed DDD (degenerative disc disease), 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) Gait difficulty (781.2) (R26.9) Muscular deconditioning (781.99) (R29.898) Chronic bilateral low back pain without sciatica (724.2,338.29) (M54.50,G89.29) Plan Goals: Goals set and discussed today. By discharge ALMA ECHEVERRIA will achieve the following goals: Pt will demo and report compliance with HEP in order to augment POC goals and progression toward independence with symptom management for better outcomes once D/C from POC. , by week 2 Activity Limitation: Pt will demo improved ease with ascending/descending stairs with reciprocal pattern and improved eccentric control to decrease fall risk. Posture: Pt will be able to demo improved upright posture with prolonged standing/ambulation by >/=25% for improved ease with ADLs and IADLs throughout the day. Strength: Pt will demo improved MMT by >/= 1 point on 0-5 point scale in BLE's for improved strength and stability, and improved ease with transfers, lifting/carrying, and proper mechanics with ADL?s AND IADL?s. MARYLU, Pt will report subjective improvement with score on MARYLU improved by >/= 5 points for return to PLOF, improved QOL, and improved ease with ADL?s AND IADL?s. Planned interventions include: cryotherapy, dry needling, education/instruction, electrical stimulation, gait training, home program, hot pack, kinesiotaping, manual therapy, mechanical traction, neuromuscular re-education, self care/home management, therapeutic activities, therapeutic exercises, vasopneumatic device, vasopneumatic device w/ cold and IASTM/CUPPING. Frequency and duration: 2 time(s) a week, for 4 weeks, for 9 visits. Potential to achieve rehab goals is good Plan to continue with ther ex's and manual therapy for decreased pain and ease of movement for ADL's. Assessment Patient identified by name AND . Patient wore a mask during treatment d/t Covid-19 precautions. Treatment consisted of ther ex's and manual therapy for core strengthening and trunk ROM. Reviewed HEP. Instructed in TrA in standing. Good ability to recruit TrA's for isometric contraction. in seated and standing, but challenged to maintain TrA iso during ex's. Patient's hip pain abolished post treatment. Adult Risk Screening There are no spiritual/cultural practices/values/needs that are important to know Initial Fall Risk Screening: ALMA has not fallen in the last 6 months. Her fall did not result in injury. ALMA has a fear of falling. She needs assistance with sometimes uses cane for stairs. Does not need assistance walking in her home. She does not need assistance in an unfamiliar setting. The patient is not using an assistive device. Fall Risk Screening: Patient is identified as a fall risk. Care Plan: Moderate Risk: Low risk interventions plus: do not leave patient on exam table unattended, supervised activity, educate patient/family on falls prevention, review safety initiatives with patient/family, family at bedside as allowed, yellow falls risk band, focus rounding attention, locate patient in area of high visibility, wheelchair, bed, or personal alarm, bedside commode, elevated toilet seat and pharmacy consult for medication concerns. Pain Scale: On a scale of 0 to 10, the patient rates the pain at 3. Please identify location of pain: Right hip. Pain Quality: aching, dull and tightness. The pain makes it hard for the patient to do these things: walking. Living Will. Living Will: No living will on file. Healthcare POA: Health care proxy on file. Declaration of Mental Health Treatment: No mental health treatment on file. Domestic Violence Screen: Does not feel threatened or abused physically, emotionally or sexually. Do you feel UNSAFE? The patient feels safe in the home. Depression/Suicide Screening: During the past 2 weeks, the patient has not felt down, depressed or hopeless. During the past 2 weeks, the patient has not felt little interest or pleasure in doing things. Insurance Insurance reviewed Visit number: 3 Authorization not required after evaluation POC: 3 Medicare/[employer] Supplement (no prior therapy Supervising PT: Elina Diaz PT, DPT, Mera DN PT Dx: M54.50; R29.898; R26.9; M51.37 Medicare Certification Period: Beginnin2022 Endin2022 Subjective Patient reports:. Pretreatment pain: 2-3/10 R hip Post treatment pain: 0/10 R hip Started taking Prednisone last Tuesday and she has been feeling better since then. Home program performing as directed: Partially. Precautions: Fall Risk: moderate Right hip replacement; B/L TKR; Right shoulder replacement; Fibromyalgia. Treatment Time in clinic started at 2:07 pm Time in clinic ended at 2:55 pm Total time in clinic is 48 minutes. Total timed code time is 45 minutes. Therapeutic exercise (80212): timed minutes 35, units 2 . Pt edu on HEP and symptom management x5' NuStep lv 1 BUE/BLE cues for T (more content not included)... [facility] BASIC METABOLIC PANELon 11-11 Anion gap [Moles/Vol] 9 mmol/L Low 10 - 20 [facility] Comment on above: Performed By: #### B MP #### [address] [place] [address] Calcium [Mass/Vol] 9.1 mg/dL Normal 8.6 - 10.3 [facility] Comment on above: Performed By: #### B MP #### [address] [address] Chloride [Moles/Vol] 101 mmol/L Normal 98 - 107 [facility] Comment on above: Performed By: #### B MP #### [address] [address] Creatinine [Mass/Vol] 0.59 mg/dL Normal 0.50 - 1.05 [facility] Comment on above: Performed By: #### B MP #### [address] [address] eGFR FEMALE >90 Normal >90 [facility] Comment on above: Result Comment: CALC ULATIONS OF ESTIMATED GFR ARE PERFORMED USING THE 2020 CKD-EPI STUDY REFIT EQUATION WITHOUT THE RACE VARIABLE FOR THE IDMS-TRACEABLE CREATININE METHODS. https://jasn.asnjournals.org/content//ASN.94499 04540 Performed By: #### B MP #### [address] [address] Glucose [Mass/Vol] 97 mg/dL Normal 74 - 99 [facility] Comment on above: Performed By: #### B MP #### [address] [address] HCO3 (Bld) [Moles/Vol] 33 mmol/L High 21 - 32 [facility] Comment on above: Performed By: #### B MP #### [address] [address] Potassium [Moles/Vol] 4.0 mmol/L Normal 3.5 - 5.3 [facility] Comment on above: Performed By: #### B MP #### [address] [address] Sodium [Moles/Vol] 139 mmol/L Normal 136 - 145 [facility] Comment on above: Performed By: #### B MP #### [address] [address] Urea nitrogen [Mass/Vol] 15 mg/dL Normal 6 - 23 [facility] Comment on above: Performed By: #### B #### [facility] [address] [place] [address] Laboratory - Chemistry and C hemistry - challengeon 12-03-2022 Anion gap [Moles/Vol] 9 mmol/L below low threshold 10 - 20 [facility] Work Phone: Calcium [Mass/Vol] 9.1 mg/dL 8.6 - 10.3 -[facility] Work Phone: Chloride [Moles/Vol] 101 mmol/L 98 - 107 [facility] [employer] [facility] Work Phone: CO2 [Moles/Vol] 33 mmol/L above high threshold 21 - 32 [facility] Work Phone: Creatinine [Mass/Vol] 0.59 mg/dL See Below [facility] Work Phone: Comment on above: Reference Range: 0.5 0 - 1.05 Glucose [Mass/Vol] 97 mg/dL 74 - 99 [employer] [facility] [employer] [facility] Work Phone: Potassium [Moles/Vol] 4.0 mmol/L 3.5 - 5.3 [facility] Medical [employer] [facility] Work Phone: Sodium [Moles/Vol] 139 mmol/L 136 - 145 [facility] [employer] [facility] Work Phone: Urea nitrogen [Mass/Vol] 15 mg/dL 6 - 23 -Medical [employer] [facility] Work Phone: No Panel Informationon 12-03 >90 >90 -Medical [employer] [facility] Work Phone: Comment on above: CALCULATIONS OF JAI MATED GFR ARE PERFORMED USING THE 2020 CKD-EPI STUDY REFIT EQUATION WITHOUT THE RACE VARIABLE FOR THE IDMS-TRACEABLE CREATININE METHODS.https://jasn.asnjournals.org/content/22/A .[email or web address] TSHon 12-03-2022 TSH Qn 0.84 m[IU]/L Normal 0.44 - 3.98 [facility] Comment on above: Result Comment: TSH testing is performed using different testing methodology at [facility] than at other [facility]. Direct result comparisons should only be made within the same method. Performed By: #### T SH2 #### [place] [id number] [place] [id number] TSH - Thyroid Stimulating Ho bryan, Serumon 12-03-2022 TSH Qn 0.84 m[IU]/L See Below MP-[facility] Work Phone: Comment on above: Reference Range: 0.4 4 - 3.98 TSH testing is performed using different testing methodology at [facility] than at other [facility]. Direct result comparisons should only be made within the same method. PT Progress Noteon 3 PT Progress Note Therapy Diagnosis Assessed DDD (degenerative disc disease), 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) Gait difficulty (781.2) (R26.9) Muscular deconditioning (781.99) (R29.898) Chronic bilateral low back pain without sciatica (724.2,338.29) (M54.50,G89.29) Plan Goals: Goals set and discussed today. By discharge ALMA ECHEVERRIA will achieve the following goals: Pt will demo and report compliance with HEP in order to augment POC goals and progression toward independence with symptom management for better outcomes once D/C from POC. , by week 2 Activity Limitation: Pt will demo improved ease with ascending/descending stairs with reciprocal pattern and improved eccentric control to decrease fall risk. Posture: Pt will be able to demo improved upright posture with prolonged standing/ambulation by >/=25% for improved ease with ADLs and IADLs throughout the day. Strength: Pt will demo improved MMT by >/= 1 point on 0-5 point scale in BLE's for improved strength and stability, and improved ease with transfers, lifting/carrying, and proper mechanics with ADL?s AND IADL?s. MARYLU, Pt will report subjective improvement with score on MARYLU improved by >/= 5 points for return to PLOF, improved QOL, and improved ease with ADL?s AND IADL?s. Planned interventions include: cryotherapy, dry needling, education/instruction, electrical stimulation, gait training, home program, hot pack, kinesiotaping, manual therapy, mechanical traction, neuromuscular re-education, self care/home management, therapeutic activities, therapeutic exercises, vasopneumatic device, vasopneumatic device w/ cold and IASTM/CUPPING. Frequency and duration: 2 time(s) a week, for 4 weeks, for 9 visits. Potential to achieve rehab goals is good Plan to continue with manual therapy as needed/tolerated; progress with full HEP and motor control with TrA and Glute activation and progression of core/pelvis stabilization exercises to improve ease with transfers and ADL's/IADL's. Progress with POC, as tolerated. Assessment Pt confirmed via and Full Name. Pt returned this date for first visit since [facility] due to having to cancel some sessions due to pain in cervical spine/shoulder as well as significant soreness from eval. Spent time reviewing pt edu on symptom management, activity modifications, and plan to ease into HEP given at [facility]. Spent most time on manual therapy this date with open hand/broad pressure for better tolerance. Pt required Mod-Max A with sit<>supine transfers, but improved TrA activation with supine<>sit after manual therapy. Pt tolerate nustep and two hooklying exercises well this date but deferred trialing remaining two seated exercises from HEP due to concern with flaring up pain again. Adult Risk Screening There are no spiritual/cultural practices/values/needs that are important to know Initial Fall Risk Screening: ALMA has not fallen in the last 6 months. Her fall did not result in injury. ALMA has a fear of falling. She needs assistance with sometimes uses cane for stairs. Does not need assistance walking in her home. She does not need assistance in an unfamiliar setting. The patient is not using an assistive device. Fall Risk Screening: Patient is identified as a fall risk. Care Plan: Moderate Risk: Low risk interventions plus: do not leave patient on exam table unattended, supervised activity, educate patient/family on falls prevention, review safety initiatives with patient/family, family at bedside as allowed, yellow falls risk band, focus rounding attention, locate patient in area of high visibility, wheelchair, bed, or personal alarm, bedside commode, elevated toilet seat and pharmacy consult for medication concerns. Pain Scale: On a scale of 0 to 10, the patient rates the pain at 1. Please identify location of pain: Right hip. Pain Quality: aching, dull and tightness. The pain makes it hard for the patient to do these things: walking. Living Will. Living Will: No living will on file. Healthcare POA: Health care proxy on file. Declaration of Mental Health Treatment: No mental health treatment on file. Domestic Violence Screen: Does not feel threatened or abused physically, emotionally or sexually. Do you feel UNSAFE? The patient feels safe in the home. Depression/Suicide Screening: During the past 2 weeks, the patient has not felt down, depressed or hopeless. During the past 2 weeks, the patient has not felt little interest or pleasure in doing things. Insurance Insurance reviewed Visit number: 2 Authorization not required after evaluation POC: 2 Medicare/[employer] Supplement (no prior therapy Supervising PT: Elina Diaz PT, DPT, Mera DN PT Dx: M54.50; R29.898; R26.9; M51.37 Medicare Certification Period: Beginnin2022 Endin2022 Subjective Patient reports:. Pt notes after the eval she was very sore and painful and had pain in shoulders, lower back pain as well as knees. Notes she has been alternating h (more content not included)... Normal [employer] Therapy Communicationon 11-10 Therapy Communication Message ALMA ECHEVERRIA canceled today . Patient cancelled today due to being ill. Signatures Electronically signed by : Cecilia Richardson PTA; Nov 22 2022 1:06PM EST (Author) Normal [employer] Office Visit (Primary Care T xt/Forms)on 11-18-2022 Follow-up visit Diagnoses/Problems Assessed Compensated hypothyroidism (244.9) (E03.9) AF (paroxysmal atrial fibrillation) (427.31) (I48.0) Edema, unspecified type (782.3) (R60.9) Class 1 obesity with body mass index (BMI) of 34.0 to 34.9 in adult (278.00,V85.34) (E66.9,Z68.34) Orders AF (paroxysmal atrial fibrillation) Start: Eliquis 5 MG Oral Tablet; Take 1 tablet twice daily Compensated hypothyroidism Basic Metabolic Panel; Status:Active; Requested for:[id number]; TSH - Thyroid Stimulating Hormone, Serum; Status:Active; Requested for:[id number]; Encounter for immunization Temporarily Stop: Influenza, seasonal, injectable Hypertension Renew: Furosemide 40 MG Oral Tablet; TAKE 2 TABLETS DAILY Patient Discussion/Summary increase lasix to 80 cont compressioj ck tsh and bmp in 2 weeks fu 3 mo stop pradaxa and switch to eliquis 5 bid for formulary reqirements Chief Complaint 2 WK FU BILATE LEG SWELLING. REV LABS History of Present Illness Since last visit she has been wearing support hose the erythema is much resolved and BMP shows no change in potassium or creatinine. The edema is reduced but still present. She has had cardiac evaluation in the last year and was started on thyroid 50 mcg for a compensated hypothyroid state. At this time we are going to increase the Lasix to 80 mg recheck TSH and BMP after 2 weeks otherwise recheck in 3 months Review of Systems No chest pains palpitations cough or shortness of breath now 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) Diverticulitis, colon (562.11) (K57.32) Dyspepsia (536.8) (R10.13) Dysuria (788.1) (R30.0) Edema, unspecified type (782.3) (R60.9) Encounter for immunization (V03.89) (Z23) Excessive weight loss (783.21) (R63.4) Frequent UTI (599.0) (N39.0) Gait difficulty (781.2) (R26.9) Glossitis (529.0) (K14.0) Hydroureter on right (593.5) (N13.4) Hyperlipemia (272.4) (E78.5) Hypertension (401.9) (I10) Left upper quadrant abdominal tenderness without rebound tenderness (789.62) (R10.812) Lumbar spondylolysis (738.4) (M43.06) Menopause (627.2) (Z78.0) Muscular deconditioning (781.99) (R29.898) Right foot pain (729.5) (M79.671) Screening for breast cancer (V76.10) (Z12.39) Screening for colon cancer (V76.51) (Z12.11) Screening mammogram for breast cancer (V76.12) (Z12.31) Sore throat (462) (J02.9) Uterine cancer (179) (C55) Past Medical History Problems History of Screening for breast cancer (V76.10) (Z12.39) Surgical History Problems History of Colonoscopy History of Excision of squamous cell carcinoma History of Shoulder surgery Family History Mother Family history of pancreatic cancer (V16.0) (Z80.0) Father Family history of cerebrovascular accident (CVA) (V17.1) (Z82.3) Family history of myocardial infarction (V17.3) (Z82.49) Child Family history of malignant neoplasm of female genital organ (V16.49) (Z80.49) Family history of multiple myeloma (V16.7) (Z80.7) Sister Family history of cerebrovascular accident (CVA) (V17.1) (Z82.3) Family history of coronary artery disease (V17.3) (Z82.49) Family history of malignant melanoma (V16.8) (Z80.8) Family history of malignant neoplasm of brain (V16.8) (Z80.8) Family history of malignant neoplasm of colon (V16.0) (Z80.0) Family history of malignant neoplasm of uterus (V16.49) (Z80.49) Brother Family history of cerebrovascular accident (CVA) (V17.1) (Z82.3) Family history of coronary artery disease (V17.3) (Z82.49) Family history of lung cancer (V16.1) (Z80.1) Family history of metastatic neoplastic disease (V16.9) (Z80.9) Family history of myocardial infarction (V17.3) (Z82.49) Social History Problems Former smoker (V15.82) (Z87.891) Minimum alcohol consumption No advance directives (V49.89) (Z78.9) Patient has active power of litigation attorney associate for health care (V49.89) (Z78.9) Current Meds Medication NameInstruction Aspirin 81 MG TABSTAKE 1 TABLET DAILY. Atorvastatin Calcium 10 MG Oral TabletTAKE 1 TABLET DAILY. Cartia XT 240 MG Oral Capsule Extended Release 24 HourTAKE 1 CAPSULE Daily Dexlansoprazole 60 MG Oral Capsule Delayed ReleaseTAKE 1 CAPSULE DAILY EVERY MORNING BEFORE BREAKFAST. Furosemide 40 MG Oral TabletTAKE 1 TABLET DAILY. Levothyroxine Sodium 50 MCG Oral TabletTAKE 1 TABLET DAILY. Lubiprostone 8 MCG Oral CapsuleTake 1 capsule twice daily Nitrofurantoin Macrocryst (more content not included)... Normal [employer] Tobacco Screening.on 023 Fall risk assessment a) No falls within the last year [facility] Work Phone: Tobacco use status CPHS b) No [facility] Work Phone: PT Initial Evaluationon PT Initial Evaluation Therapy Diagnosis Assessed Chronic bilateral low back pain without sciatica (724.2,338.29) (M54.50,G89.29) Muscular deconditioning (781.99) (R29.898) Gait difficulty (781.2) (R26.9) DDD (degenerative disc disease), 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) Plan of Care Goals: Goals set and discussed today. By discharge ALMA ECHEVERRIA will achieve the following goals: Pt will demo and report compliance with HEP in order to augment POC goals and progression toward independence with symptom management for better outcomes once D/C from POC. , by week 2 Activity Limitation: Pt will demo improved ease with ascending/descending stairs with reciprocal pattern and improved eccentric control to decrease fall risk. Posture: Pt will be able to demo improved upright posture with prolonged standing/ambulation by >/=25% for improved ease with ADLs and IADLs throughout the day. Strength: Pt will demo improved MMT by >/= 1 point on 0-5 point scale in BLE's for improved strength and stability, and improved ease with transfers, lifting/carrying, and proper mechanics with ADL?s AND IADL?s. MARYLU, Pt will report subjective improvement with score on MARYLU improved by >/= 5 points for return to PLOF, improved QOL, and improved ease with ADL?s AND IADL?s. Planned interventions include: cryotherapy, dry needling, education/instruction, electrical stimulation, gait training, home program, hot pack, kinesiotaping, manual therapy, mechanical traction, neuromuscular re-education, self care/home management, therapeutic activities, therapeutic exercises, vasopneumatic device, vasopneumatic device w/ cold and IASTM/CUPPING. Frequency and duration: 2 time(s) a week, for 4 weeks, for 9 visits. Potential to achieve rehab goals is good Plan of care was developed with input and agreement by the patient. Assessment Ms. ECHEVERRIA presents with signs and symptoms consistent with Lumbosacral DDD, difficulty with gait, muscular deconditioning and lumbago and demonstrates impairments/limitations in Lumbar AROM, decreased MMT in BLE's, difficulty with proper motor control with decreased proximal stability, weakness in core and glute musculature specifically, with difficulty with all functional transfers at times. Pt reported good understanding of HEP HO with verbal review and given blue/red therabands. They would benefit from skilled Physical Therapy with combination of manual therapy techniques to decrease myofascial and joint restrictions, as well as progression of exercises for ROM, flexibility, strength, core stabilization, and glute retraining, and body mechanics education throughout POC to progress towards independence with ADL?s/IADL?s and return to PLOF. Clinical Presentation: Stable and/or uncomplicated characteristics. Level of Complexity: low Problem List: activity limitations, ADLs/IADLs/self care skills, balance, decreased functional level, fall risk, flexibility, gait/locomotion, motor function/control/tone, pain, participation restrictions, posture, range of motion/joint mobility, strength and transfers. Reason For Visit Initial Evaluation . Lumbosacral pain, deconditioned and weakness. Referred by: Sancho Woodruff Adult Risk Screening There are no spiritual/cultural practices/values/needs that are important to know Initial Fall Risk Screening: ALMA has not fallen in the last 6 months. Her fall did not result in injury. ALMA has a fear of falling. She needs assistance with sometimes uses cane for stairs. Does not need assistance walking in her home. She does not need assistance in an unfamiliar setting. The patient is not using an assistive device. Fall Risk Screening: Patient is identified as a fall risk. Care Plan: Moderate Risk: Low risk interventions plus: do not leave patient on exam table unattended, supervised activity, educate patient/family on falls prevention, review safety initiatives with patient/family, family at bedside as allowed, yellow falls risk band, focus rounding attention, locate patient in area of high visibility, wheelchair, bed, or personal alarm, bedside commode, elevated toilet seat and pharmacy consult for medication concerns. Pain Scale: On a scale of 0 to 10, the patient rates the pain at 1. Please identify location of pain: Lumbar spine, Right worse than Left, RIght hip/buttocks. Pain Quality: aching, dull and tightness. The pain makes it hard for the patient to do these things: walking. Living Will. Living Will: No living will on file. Healthcare POA: Health care proxy on file. Declaration of Mental Health Treatment: No mental health treatment on file. Domestic Violence Screen: Does not feel threatened or abused physically, emotionally or sexually. Do you feel UNSAFE? The patient feels safe in the home. Depression/Suicide Screening: During the past 2 weeks, the patient has not felt down, depressed or hopeless. During the past 2 weeks, the patient has not felt little interest or pleasure in doing things. In (more content not included)... Normal [employer] OPIATE/OPIOID/BENZO EXTENDED PRESCRIPTION COMPLIANCEon 11-16-2022 OXYCODONE <25 Normal Cutoff <25 [facility] Comment on above: Performed By: #### D SBOP #### [facility] [id number] [place] [address] BASIC METABOLIC PANELon Anion gap [Moles/Vol] 10 mmol/L Normal 10 - 20 [facility] Comment on above: Performed By: #### B MP #### [address] [address] Chloride [Moles/Vol] 102 mmol/L Normal 98 - 107 [facility] Comment on above: Performed By: #### B MP #### [address] [address] HCO3 (Bld) [Moles/Vol] 31 mmol/L Normal 21 - 32 [facility] Comment on above: Performed By: #### B MP #### [address] [address] Potassium [Moles/Vol] 3.7 mmol/L Normal 3.5 - 5.3 [facility] Comment on above: Performed By: #### B MP #### [address] [address] Sodium [Moles/Vol] 139 mmol/L Normal 136 - 145 [facility] Comment on above: Performed By: #### B MP #### [address] [address] Calcium [Mass/Vol] 8.9 mg/dL Normal 8.6 - 10.3 [facility] Comment on above: Performed By: #### B MP #### [address] [address] Creatinine [Mass/Vol] 0.61 mg/dL Normal 0.50 - 1.05 [facility] Comment on above: Performed By: #### B MP #### [address] [address] GFR/1.73 sq M.predicted among non-blacks MDRD (S/P/Bld) [Vol rate/Area] 90 mL/min/{1.73_m2} Normal >90 [facility] Comment on above: Result Comment: CALC ULATIONS OF ESTIMATED GFR ARE PERFORMED USING THE 2020 CKD-EPI STUDY REFIT EQUATION WITHOUT THE RACE VARIABLE FOR THE IDMS-TRACEABLE CREATININE METHODS. https://jasn.asnjournals.org/content//ASN.07270 79134 Performed By: #### B MP #### [address] [address] Glucose [Mass/Vol] 82 mg/dL Normal 74 - 99 [facility] Comment on above: Performed By: #### B MP #### [address] [address] Urea nitrogen [Mass/Vol] 16 mg/dL Normal 6 - 23 [facility] Comment on above: Performed By: #### B MP #### [address] [address] Laboratory - Chemistry and C hemistry - challengeon 11-12-2022 Anion gap [Moles/Vol] 10 mmol/L 10 - 20 [facility] Work Phone: Calcium [Mass/Vol] 8.9 mg/dL 8.6 - 10.3 [employer]: [employer] [facility] [employer] [facility] Work Phone: Chloride [Moles/Vol] 102 mmol/L 98 - 107 [employer] [facility] Work Phone: CO2 [Moles/Vol] 31 mmol/L 21 - 32 [facility] Work Phone: Creatinine [Mass/Vol] 0.61 mg/dL See Below - Medical [employer] [facility] Work Phone: Comment on above: Reference Range: 0.5 0 - 1.05 Glucose [Mass/Vol] 82 mg/dL 74 - 99 [employer]: [employer] [facility] Work Phone: Potassium [Moles/Vol] 3.7 mmol/L 3.5 - 5.3 [facility] Medical [employer] [facility] Work Phone: Sodium [Moles/Vol] 139 mmol/L 136 - 145 [employer]: [employer] [facility] [employer] [facility] Work Phone: Urea nitrogen [Mass/Vol] 16 mg/dL 6 - 23 [facility] Work Phone: No Panel Informationon 11-12 90 {mL/min/1.73m2} >90 [facility] Work Phone: Comment on above: CALCULATIONS OF JAI MATED GFR ARE PERFORMED USING THE 2020 CKD-EPI STUDY REFIT EQUATION WITHOUT THE RACE VARIABLE FOR THE IDMS-TRACEABLE CREATININE METHODS.https://jasn.asnjournals.org/content/early//A SN.4332639233 OPIATE/OPIOID/BENZO EXTENDED PRESCRIPTION COMPLIANCEon 11-11-2022 6-ACETYLMORPHINE <25 Normal Cutoff <25 [facility] Comment on above: Performed By: #### D SBOP #### [facility] [address] [place] [address] 7-AMINOCLONAZEPAM <25 Normal Cutoff <25 [facility] Comment on above: Performed By: #### D SBOP #### [facility] [address] [place] [address] ALPHA-HYDROXYALPRAZOLA M <25 Normal Cutoff <25 [facility] Comment on above: Performed By: #### D SBOP #### [facility] [address] [place] [address] ALPHA-HYDROXYMIDAZOLAM <25 Normal Cutoff <25 [facility] Comment on above: Performed By: #### D SBOP #### [facility] [address] [place] [address] ALPRAZOLAM <25 Normal Cutoff <25 [facility] Comment on above: Performed By: #### D SBOP #### [facility] [address] [place] [address] CHLORDIAZEPOXIDE <25 Normal Cutoff <25 [facility] Comment on above: Performed By: #### D SBOP #### [facility] [address] [place] [address] CLONAZEPAM <25 Normal Cutoff <25 [facility] Comment on above: Performed By: #### D SBOP #### [facility] [address] [place] [address] CODEINE <50 Normal Cutoff <50 [facility] Comment on above: Performed By: #### D SBOP #### [facility] [address] [place] [address] DIAZEPAM <25 Normal Cutoff <25 [facility] Comment on above: Performed By: #### D SBOP #### [facility] [address] [place] [address] EDDP,U <25 Normal Cutoff <25 [facility] Comment on above: Result Comment: The performance characteristics of the Methadone Confirmation, Urine has been validated by the individual laboratory site where testing is performed. It has not been cleared or approved by the FDA. However the FDA has determined that such clearance or approval is not necessary. Our Laboratory is certified under the Clinical Laboratory Improvement Amendments of 1988 (CLIA) as qualified to perform high complexity clinical laboratory testing. Performed By: #### D SBOP #### [facility] [address] [place] [address] FENTANYL CONFIRM,U <2.5 Normal Cutoff<2.5 [facility] Comment on above: Performed By: #### D SBOP #### [facility] [address] [place] [address] HYDROCODONE <25 Normal Cutoff <25 [facility] Comment on above: Performed By: #### D SBOP #### [facility] [address] [place] [address] HYDROMORPHONE <25 Normal Cutoff <25 [facility] Comment on above: Performed By: #### D SBOP #### [facility] [address] [place] [address] LORAZEPAM <25 Normal Cutoff <25 [facility] Comment on above: Performed By: #### D SBOP #### [facility] [address] [place] [address] METHADONE,U <25 Normal Cutoff <25 [facility] Comment on above: Performed By: #### D SBOP #### [facility] [address] [place] [address] MIDAZOLAM <25 Normal Cutoff <25 [facility] [facility] Comment on above: Performed By: #### D SBOP #### [facility] [id number] [place] [address] MORPHINE <50 Normal Cutoff <50 [facility] Comment on above: Performed By: #### D SBOP #### [facility] [address] [place] [address] NORDIAZEPAM <25 Normal Cutoff <25 [facility] Comment on above: Performed By: #### D SBOP #### [facility] [address] [place] [address] NORFENTANYL CONFIRM,U <2.5 Normal Cutoff<2.5 [facility] Comment on above: Result Comment: The performance characteristics of the Fentanyl Confirmation, Urine has been validated by the individual laboratory site where testing is performed. It has not been cleared or approved by the FDA. However the FDA has determined that such clearance or approval is not necessary. Our Laboratory is certified under the Clinical Laboratory Improvement Amendments of 1988 (CLIA) as qualified to perform high complexity clinical laboratory testing. Performed By: #### D SBOP #### [facility] [address] [place] [address] NORHYDROCODONE <25 Normal Cutoff <25 [facility] Comment on above: Performed By: #### D SBOP #### [facility] [address] [place] [address] NOROXYCODONE <25 Normal Cutoff <25 [facility] Comment on above: Performed By: #### D SBOP #### [facility] [address] [place] [address] O-DESMETHYLTRAMADOL,U >1000 Abnormal Cutoff <50 [facility] Comment on above: Result Comment: Tram adol metabolite; consistent with use of a drug containing tramadol, such as Ultram. The performance characteristics of the Tramadol Confirmation, Urine has been validated by the individual laboratory site where testing is performed. It has not been cleared or approved by the FDA. However the FDA has determined that such clearance or approval is not necessary. Our Laboratory is certified under the Clinical Laboratory Improvement Amendments of 1988 (CLIA) as qualified to perform high complexity clinical laboratory testing. Performed By: #### D SBOP #### [facility] [address] [place] [address] OXAZEPAM <25 Normal Cutoff <25 [facility] Comment on above: Performed By: #### D SBOP #### [facility] [address] [place] [address] OXYMORPHONE <25 Normal Cutoff <25 [facility] Comment on above: Result Comment: The performance characteristics of the Opiate Confirmation, Urine has been validated by the individual laboratory site where testing is performed. It has not been cleared or approved by the FDA. However the FDA has determined that such clearance or approval is not necessary. Our Laboratory is certified under the Clinical Laboratory Improvement Amendments of 1988 (CLIA) as qualified to perform high complexity clinical laboratory testing. Performed By: #### D SBOP #### [facility] [address] [place] [address] TEMAZEPAM <25 Normal Cutoff <25 [facility] Comment on above: Result Comment: The performance characteristics of the Benzodiazepine Confirmation, Urine has been validated by the individual laboratory site where testing is performed. It has not been cleared or approved by the FDA. However the FDA has determined that such clearance or approval is not necessary. Our Laboratory is certified under the Clinical Laboratory Improvement Amendments of 1988 (CLIA) as qualified to perform high complexity clinical laboratory testing. Performed By: #### D SBOP #### [facility] [address] [place] [address] TRAMADOL CONFIRM,U >1000 Abnormal Cutoff <50 [facility] Comment on above: Result Comment: Cons istent with use of a drug containing tramadol, such as Ultram. Performed By: #### D SBOP #### [facility] [address] [place] [address] ZOLPIDEM METABOLITE[ZCA] ,U <25 Normal Cutoff <25 [facility] Comment on above: Result Comment: The performance characteristics of the Zolpidem Confirmation, Urine has been validated by the individual laboratory site where testing is performed. It has not been cleared or approved by the FDA. However the FDA has determined that such clearance or approval is not necessary. Our Laboratory is certified under the Clinical Laboratory Improvement Amendments of 1988 (CLIA) as qualified to perform high complexity clinical laboratory testing. Performed By: #### D SBOP #### [facility] [address] [place] [address] ZOLPIDEM,URINE <25 Normal Cutoff <25 [facility] Comment on above: Performed By: #### D SBOP #### [facility] [address] [place] [address] PT Initial Evaluationon 10-12 PT Initial Evaluation No report was sent Normal [employer] Therapy Communicationon 10-12 Therapy Communication Message ALMA SURESHON canceled today 11/08/22. Pt cancel eval d/t appt conflict. Signatures Electronically signed by : Larisa Walker PT; Nov 08 2022 1:12PM EST (Author) Normal [employer] OPIATE/OPIOID/BENZO EXTENDED PRESCRIPTION COMPLIANCEon 11-05-2022 AMPHETAMINE SCREEN,U Negative Normal NEGATIVE [facility] Comment on above: Result Comment: CUTO FF LEVEL: 500 NG/ML Cross-reactivity has been reported with high concentrations of the following drugs: buproprion, chloroquine, chlorpromazine, ephedrine, mephentermine, fenfluramine, phentermine, phenylpropanolamine, pseudoephedrine, and propranolol. Performed By: #### D SBOP #### [facility] [address] [place] [address] BARBITURATES SCREEN,U Negative Normal NEGATIVE [facility] Comment on above: Result Comment: CUTO FF LEVEL: 200 NG/ML Performed By: #### D SBOP #### [facility] [address] [place] [address] CANNABINOIDS SCREEN,U Negative Normal NEGATIVE [facility] Comment on above: Result Comment: CUTO FF LEVEL: 50 NG/ML Performed By: #### D SBOP #### [facility] [address] [place] [address] COCAINE METABOLITE SCREEN,U Negative Normal NEGATIVE [facility] Comment on above: Result Comment: CUTO FF LEVEL: 150 NG/ML Performed By: #### D SBOP #### [facility] [address] [place] [id number] Creatinine [Mass/Vol] 69.2 mg/dL Normal [facility] Comment on above: Result Comment: A ur ine creatinine result >= 20 mg/dL is considered valid without suspicion of dilution. Samples with results below this range will automatically reflex to specific gravity testing to verify specimen integrity. Performed By: #### D SBOP #### [facility] [address] [place] [id number] DRUG SCREEN COMMENT. SEE BELOW Normal [facility] Comment on above: Result Comment: Drug screen results are presumptive and should not be used to assess compliance with prescribed medication. Definitive confirmatory drug testing has been added to this sample for any positive screen result and will be reported separately. . Toxicology screening results are reported qualitatively. The concentration must be greater than or equal to the cutoff to be reported as positive. The concentration at which the screening test can detect an individual drug or metabolite varies. The absence of expected drug(s) and/or drug metabolite(s) may indicate non-compliance, inappropriate timing of specimen collection relative to drug administration, poor drug absorption, diluted/adulterated urine, or limitations of testing. For medical purposes only; not valid for forensic use. . Interpretive questions should be directed to the laboratory medical directors. Performed By: #### D SBOP #### [facility] [address] [place] [address] PCP SCREEN,U Negative Normal NEGATIVE [facility] Comment on above: Result Comment: CUTO FF LEVEL: 25 NG/ML Cross-reactivity has been reported with dextromethorphan. Performed By: #### D SBOP #### [facility] [address] [place] [address] Laboratory - Chemistry and C hemistry - challengeon 11-04-2022 Creatinine (Body fld) [Mass/Vol] 69.2 mg/dL [employer] [facility] Work Phone: Comment on above: A urine creatinine r esult >= 20 mg/dL is considered valid without suspicion of dilution. Samples with results below this range will automatically reflex to specific gravity testing to verify specimen integrity. Laboratory - Drug toxicology on 11-04-2022 1-Hydroxymidazolam Confirm (U) [Mass/Vol] <25 Cutoff <25 [employer] [facility] Work Phone: 4-Yzttlfagrd-8,5-Dimet hyl-3,3-Diphenylpyrrol idine (EDDP) Confirm (U) [Mass/Vol] <25 Cutoff <25 [employer] [facility] Work Phone: Comment on above: The performance kalli acteristics of the Methadone Confirmation, Urine has been validated by the individual laboratory site where testing is performed. It has not been cleared or approved by the FDA. However the FDA has determined that such clearance or approval is not necessary. Our Laboratory is certified under the Clinical Laboratory Improvement Amendments of 1988 (CLIA) as qualified to perform high complexity clinical laboratory testing. 6-Monoacetylmorphine (6-TRA) Confirm (U) [Mass/Vol] <25 Cutoff <25 [employer] [facility] Work Phone: 7-Aminoclonazepam Confirm (U) [Mass/Vol] <25 Cutoff <25 [employer] [facility] Work Phone: Alpha hydroxyalprazolam Confirm (U) [Mass/Vol] <25 Cutoff <25 [facility] [employer] [facility] Work Phone: ALPRAZolam Confirm (U) [Mass/Vol] <25 Cutoff <25 [employer] [facility] Work Phone: Amphetamines Screen Ql (U) Negative NEGATIVE [employer] [facility] Work Phone: Comment on above: CUTOFF LEVEL: 500 NG /ML Cross-reactivity has been reported with high concentrations of the following drugs: buproprion, chloroquine, chlorpromazine, ephedrine, mephentermine, fenfluramine, phentermine, phenylpropanolamine, pseudoephedrine, and propranolol. Barbiturates Screen Ql (U) Negative NEGATIVE [employer] [facility] Work Phone: Comment on above: CUTOFF LEVEL: 200 NG /ML Benzoylecgonine Screen Ql (U) Negative NEGATIVE [employer] [facility] Work Phone: [phone] Comment on above: CUTOFF LEVEL: 150 NG /ML Cannabinoids Screen Ql (U) Negative NEGATIVE [facility] Work Phone: Comment on above: CUTOFF LEVEL: 50 NG/ ML chlordiazePOXIDE Confirm (U) [Mass/Vol] <25 Cutoff <25 [facility] Work Phone: clonazePAM Confirm (U) [Mass/Vol] <25 Cutoff <25 [facility] Work Phone: Codeine Confirm (U) [Mass/Vol] <50 Cutoff <50 [facility] Work Phone: diazePAM Confirm (U) [Mass/Vol] <25 Cutoff <25 [facility] Work Phone: fentaNYL Confirm (U) [Mass/Vol] <2.5 Cutoff<2.5 [facility] Work Phone: HYDROcodone Confirm (U) [Mass/Vol] <25 Cutoff <25 [facility] Work Phone: HYDROmorphone Confirm (U) [Mass/Vol] <25 Cutoff <25 [facility] Work Phone: LORazepam Confirm (U) [Mass/Vol] <25 Cutoff <25 [facility] Work Phone: Methadone Confirm (U) [Mass/Vol] <25 Cutoff <25 [facility] Work Phone: Midazolam Confirm (U) [Mass/Vol] <25 Cutoff <25 [facility] Work Phone: Morphine Confirm (U) [Mass/Vol] <50 Cutoff <50 [facility] Work Phone: Nordiazepam Confirm (U) [Mass/Vol] <25 Cutoff <25 [facility] Work Phone: Norfentanyl Confirm (U) [Mass/Vol] <2.5 Cutoff<2.5 [facility] [place] Work Phone: Comment on above: The performance kalli acteristics of the Fentanyl Confirmation, Urine has been validated by the individual laboratory site where testing is performed. It has not been cleared or approved by the FDA. However the FDA has determined that such clearance or approval is not necessary. Our Laboratory is certified under the Clinical Laboratory Improvement Amendments of 1988 (CLIA) as qualified to perform high complexity clinical laboratory testing. Norhydrocodone Confirm (U) [Mass/Vol] <25 Cutoff <25 [facility] [place] Work Phone: Noroxycodone Confirm (U) [Mass/Vol] <25 Cutoff <25 [facility] [place] Work Phone: Nortramadol (U) [Mass/Vol] >1000 Abnormal Cutoff <50 [facility] [place] Work Phone: Comment on above: Tramadol metabolite; consistent with use of a drug containing tramadol, such as Ultram. The performance characteristics of the Tramadol Confirmation, Urine has been validated by the individual laboratory site where testing is performed. It has not been cleared or approved by the FDA. However the FDA has determined that such clearance or approval is not necessary. Our Laboratory is certified under the Clinical Laboratory Improvement Amendments of 1988 (CLIA) as qualified to perform high complexity clinical laboratory testing. Oxazepam Confirm (U) [Mass/Vol] <25 Cutoff <25 [facility] [place] Work Phone: oxyCODONE Confirm (U) [Mass/Vol] <25 Cutoff <25 [facility] [place] Work Phone: oxyMORphone Confirm (U) [Mass/Vol] <25 Cutoff <25 [facility] [place] Work Phone: Comment on above: The performance kalli acteristics of the Opiate Confirmation, Urine has been validated by the individual laboratory site where testing is performed. It has not been cleared or approved by the FDA. However the FDA has determined that such clearance or approval is not necessary. Our Laboratory is certified under the Clinical Laboratory Improvement Amendments of 1988 (CLIA) as qualified to perform high complexity clinical laboratory testing. Phencyclidine Ql (U) Negative NEGATIVE -[facility] [place] Work Phone: Comment on above: CUTOFF LEVEL: 25 NG/ ML Cross-reactivity has been reported with dextromethorphan. Temazepam Confirm (U) [Mass/Vol] <25 Cutoff <25 -[facility] [place] Work Phone: Comment on above: The performance kalli acteristics of the Benzodiazepine Confirmation, Urine has been validated by the individual laboratory site where testing is performed. It has not been cleared or approved by the FDA. However the FDA has determined that such clearance or approval is not necessary. Our Laboratory is certified under the Clinical Laboratory Improvement Amendments of 1988 (CLIA) as qualified to perform high complexity clinical laboratory testing. traMADol Confirm (U) [Mass/Vol] >1000 Abnormal Cutoff <50 -[facility] [place] Work Phone: Comment on above: Consistent with use of a drug containing tramadol, such as Ultram. Zolpidem (U) [Mass/Vol] <25 Cutoff <25 -[facility] [place] Work Phone: No Panel Informationon 11-04 SEE BELOW -[facility] [place] Work Phone: Comment on above: Drug screen results are presumptive and should not be used to assess compliance with prescribed medication. Definitive confirmatory drug testing has been added to this sample for any positive screen result and will be reported separately. .Toxicology screening results are reported qualitatively. The concentration must be greater than or equal to the cutoff to be reported as positive. The concentration at which the screening test can detect an individual drug or metabolite varies. The absence of expected drug(s) and/or drug metabolite(s) may indicate non-compliance, inappropriate timing of specimen collection relative to drug administration, poor drug absorption, diluted/adulterated urine, or limitations of testing. For medical purposes only; not valid for forensic use. .Interpretive questions should be directed to the laboratory medical directors. <25 Cutoff <25 -[facility] [place] Work Phone: Comment on above: The performance kalli acteristics of the Zolpidem Confirmation, Urine has been validated by the individual laboratory site where testing is performed. It has not been cleared or approved by the FDA. However the FDA has determined that such clearance or approval is not necessary. Our Laboratory is certified under the Clinical Laboratory Improvement Amendments of 1988 (CLIA) as qualified to perform high complexity clinical laboratory testing. 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) Uterine cancer (179) (C55) Class 1 obesity with body mass index (BMI) of 34.0 to 34.9 in adult (278.00,V85.34) (E66.9,Z68.34) Orders Compensated hypothyroidism Renew: Levothyroxine Sodium 50 MCG Oral Tablet; TAKE 1 TABLET DAILY Constipation Renew: Polyethylene Glycol 3350 17 GM/SCOOP Oral Powder (MiraLax); MIX 17 GRAMS IN 8 OUNCES OF LIQUID AND DRINK TWICE DAILY NEEDED DDD (degenerative disc disease), lumbosacral Renew: traMADol HCl - 50 MG Oral Tablet; 1 TAB Q 6 HOIUR PRN PAIN Physical Therapy - General Referral Evaluation and Treatment Evaluate AND Treat gayatri is recc by [facility] Status: Hold For - Scheduling Requested for: 04Nov2022 OPIATE/OPIOID/BENZO [EXTENDED] PRESCRIPTION COMPLIANCE; Status:In Progress - Specimen/Data Collected; Done: 04Nov2022 Edema, unspecified type Basic Metabolic Panel; Status:Active; Requested for:04Nov2022; Health Maintenance Renew: Dexlansoprazole 60 MG Oral Capsule Delayed Release (Dexilant); TAKE 1 CAPSULE DAILY EVERY MORNING BEFORE BREAKFAST PMH: History of atrial fibrillation Renew: Dabigatran Etexilate Mesylate 150 MG Oral Capsule (Pradaxa); TAKE 1 CAPSULE TWICE DAILY Patient Discussion/Summary increase lasix to 60 mg and bmpa nd johnathon in 2 weeks. We will treat this as some congestive failure and look for improvement in her ability to sing ambulate if not improved then consider getting echo again Chief Complaint 3 MO CSA/UDS. History of Present Illness Since the last office visit there have been no interval operations, hospitalizations, important illnesses or injuries. shingles resoved, some lingering pain notes some inc swelling onad decreased singing, will incr lasix to 60mg, was taking prn, icreased to daily and now recc 60 mg woth 2 week follow up no afib in several months, cont on pradaxa. is on propafenone. sees emeli in january. Encouraged to report breakthrough episode pain meds for low back, and asks to refer to gayatri at [facility]. I have personally reviewed the OARRS report for the above patient. This report is scanned into the electronic medical record. I have considered the risks of abuse, dependence, addiction, and diversion. I believe that it is clinically appropriate for the above patient to be prescribed this medication. 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 Uterine cancer HCC closed for a year stable Review of Systems General-no fatigue weight to within 10 pounds ENT no problems with vision swallowing Cardiac no chest pains palpitations however there has been some change in exercise tolerance or capacity Pulmonary no cough shortness of breath GI no heartburn or abdominal pain Musculoskeletal ++ joint pains Active Problems Problems Acute UTI (599.0) (N39.0) AF (paroxysmal atrial fibrillation) (427.31) (I48.0) Hanley's esophagus (530.85) (K22.70) Cancer of skin, squamous cell (173.92) (C44.92) Chronic liver disease and cirrhosis (571.9,571.5) (K74.60,K76.9) Class 1 obesity with body mass index (BMI) of 34.0 to 34.9 in adult (278.00,V85.34) (E66.9,Z68.34) Colon polyps (211.3) (K63.5) Compensated hypothyroidism (244.9) (E03.9) Constipation (564.00) (K59.00) DDD (degenerative disc disease), 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) Diverticulitis, colon (562.11) (K57.32) Dyspepsia (536.8) (R10.13) Dysuria (788.1) (R30.0) Edema, unspecified type (782.3) (R60.9) Encounter for immunization (V03.89) (Z23) Excessive weight loss (783.21) (R63.4) Frequent UTI (599.0) (N39.0) Glossitis (529.0) (K14.0) Hydroureter on right (593.5) (N13.4) Hyperlipemia (272.4) (E78.5) Hypertension (401.9) (I10) Left upper quadrant abdominal tenderness without rebound tenderness (789.62) (R10.812) Lumbar spondylolysis (738.4) (M43.06) Menopause (627.2) (Z78.0) Right foot pain (729.5) (M79.671) Screening for breast cancer (V76.10) (Z12.39) Screening for colon cancer (V76.51) (Z12.11) Screening mammogram for breast cancer (V76.12) (Z12.31) Sore throat (462) (J02.9) Uterine cancer (179) (C55) Past Medical History Problems History of Screening for breast cancer (V76.10) (Z12.39) Surgical History Problems History of Colonoscopy History of Excision of squamous cell carcinoma History of Shoulder surgery Family History Mother Family history of pancreatic cancer (V16.0) (Z80.0) Father Family history of cerebrovascular accident (CVA) (V17.1) (Z82.3) Family history of myocardial infarction (V17.3) (Z82.49) Child Family history of malignant neoplasm of female genital organ (V16.49) (Z80.49) Family history of multiple myeloma (V16.7) (Z80.7) Sister Family history of cerebrovascular accident (CVA) (V17.1) (Z82.3) Family history of coronary artery disea (more content not included)... Normal [employer] Tobacco Screening.on 023 Adult depression screening assessment No [employer] [facility] Work Phone: Fall risk assessment a) No falls within the last year [employer] Work Phone: Tobacco use status [facility] b) No [facility] Work Phone: APTTon 09-09-2022 aPTT Coag (Bld) [Time] 44 s High 26 - 39 [facility] Comment on above: Result Comment: THE APTT IS NO LONGER USED FOR MONITORING UNFRACTIONATED HEPARIN THERAPY. FOR MONITORING HEPARIN THERAPY, USE THE HEPARIN ASSAY. Performed By: #### M G #### [place] [id number] Activated Partial Thrombopla stin Timeon 09-09-2022 aPTT Coag (PPP) [Time] 44 s above hig h threshold 26 - 39 [employer] [facility] Work Phone: [phone] Comment on above: THE APTT IS NO LONGE R USED FOR MONITORING UNFRACTIONATED HEPARIN THERAPY. FOR MONITORING HEPARIN THERAPY, USE THE HEPARIN ASSAY. BNPon 09-09-2022 Natriuretic peptide B (Bld) [Mass/Vol] 38 pg/mL Normal 0 - 99 [facility] Comment on above: Result Comment: . <1 00 pg/mL - Heart failure unlikely 100-299 pg/mL - Intermediate probability of acute heart . failure exacerbation. Correlate with clinical . context and patient history. >=300 pg/mL - Heart Failure likely. Correlate with clinical . context and patient history. BNP testing is performed using different testing methodology at [facility] than [facility] other [facility]. Direct result comparisons should only be made within the same method. Performed By: #### B NP2 #### [place] [id number] CBC AND DIFFERENTIALon 09-09 % AUTOMATED IMMATURE GRAN 0.2 % Normal 0.0 - 0.9 [facility] Comment on above: Result Comment: Torri ture Granulocyte Count (IG) includes promyelocytes, myelocytes and metamyelocytes but does not include bands. Percent differential counts (%) should be interpreted in the context of the absolute cell counts (cells/L). Performed By: #### T RPHS #### [address] [address] Basophils (Bld) [#/Vol] 0.03 10*3/uL Normal 0.00 - 0.10 [facility] Comment on above: Performed By: #### T RPHS #### [address] [address] Basophils/100 WBC (Bld) 0.7 % Normal 0.0 - 2.0 [facility] Comment on above: Performed By: #### T RPHS #### [address] [address] Eosinophils (Bld) [#/Vol] 0.05 10*3/uL Normal 0.00 - 0.40 [facility] Comment on above: Performed By: #### T RPHS #### [address] [address] Eosinophils/100 WBC (Bld) 1.2 % Normal 0.0 - 6.0 [facility] Comment on above: Performed By: #### T RPHS #### [address] [address] Erythrocyte distribution width (RBC) [Ratio] 14.5 % Normal 11.5 - 14.5 [facility] Comment on above: Performed By: #### T RPHS #### [address] [address] Hematocrit (Bld) [Volume fraction] 41.7 % Normal 36.0 - 46.0 [facility] Comment on above: Performed By: #### T RPHS #### [address] [address] Hemoglobin (Bld) [Mass/Vol] 13.6 g/dL Normal 12.0 - 16.0 [facility] Comment on above: Performed By: #### T RPHS #### [address] [address] Lymphocytes (Bld) [#/Vol] 1.33 10*3/uL Normal 0.80 - 3.00 [facility] Comment on above: Performed By: #### T RPHS #### [address] [address] Lymphocytes/100 WBC (Bld) 32.1 % Normal 13.0 - 44.0 [facility] Comment on above: Performed By: #### T RPHS #### [address] [address] MCHC (RBC) [Mass/Vol] 32.6 g/dL Normal 32.0 - 36.0 [facility] Comment on above: Performed By: #### T RPHS #### [address] [address] MCV (RBC) [Entitic vol] 98 fL Normal 80 - 100 [facility] Comment on above: Performed By: #### T RPHS #### [address] [address] Monocytes (Bld) [#/Vol] 0.37 10*3/uL Normal 0.05 - 0.80 [facility] Comment on above: Performed By: #### T RPHS #### [address] [address] Monocytes/100 WBC (Bld) 8.9 % Normal 2.0 - 10.0 [facility] Comment on above: Performed By: #### T RPHS #### [address] [address] Neutrophils (Bld) [#/Vol] 2.35 10*3/uL Normal 1.60 - 5.50 [facility] Comment on above: Result Comment: Perc ent differential counts (%) should be interpreted in the context of the absolute cell counts (cells/L). Performed By: #### T RPHS #### [address] [address] Neutrophils/100 WBC (Bld) 56.9 % Normal 40.0 - 80.0 [facility] Comment on above: Performed By: #### T RPHS #### [address] [address] Platelets (Bld) [#/Vol] 150 10*3/uL Normal 150 - 450 [facility] Comment on above: Performed By: #### T RPHS #### [address] [address] RBC 4.25 x10E12/L Normal 4.00 - 5.20 [facility] Comment on above: Performed By: #### T RP #### [address] [address] WBC (Bld) [#/Vol] 4.1 10*3/uL Low 4.4 - 11.3 [facility] Comment on above: Performed By: #### T RP #### [place] [id number] COMPREHENSIVE PANELon 2021 Albumin [Mass/Vol] 3.6 g/dL Normal 3.4 - 5.0 [facility] Comment on above: Performed By: #### B NP2 #### [address] [address] ALP [Catalytic activity/Vol] 151 U/L High 33 - 136 [facility] Comment on above: Performed By: #### B NP2 #### [address] [address] ALT [Catalytic activity/Vol] 15 U/L Normal 7 - 45 [facility] Comment on above: Result Comment: Cielo ents treated with Sulfasalazine may generate falsely decreased results for ALT. Performed By: #### B NP2 #### [address] [address] Anion gap [Moles/Vol] 11 mmol/L Normal 10 - 20 [facility] Comment on above: Performed By: #### B NP2 #### [address] [address] AST [Catalytic activity/Vol] 34 U/L Normal 9 - 39 [facility] Comment on above: Performed By: #### B NP2 #### [address] [address] Bilirubin [Mass/Vol] 0.8 mg/dL Normal 0.0 - 1.2 [facility] Comment on above: Performed By: #### B NP2 #### [address] [address] Calcium [Mass/Vol] 8.8 mg/dL Normal 8.6 - 10.3 [facility] Comment on above: Performed By: #### B NP2 #### [address] [address] Chloride [Moles/Vol] 105 mmol/L Normal 98 - 107 [facility] Comment on above: Performed By: #### B NP2 #### [address] [address] Creatinine [Mass/Vol] 0.65 mg/dL Normal 0.50 - 1.05 [facility] Comment on above: Performed By: #### B NP2 #### [address] [address] GFR/1.73 sq M.predicted among non-blacks MDRD (S/P/Bld) [Vol rate/Area] 89 mL/min/{1.73_m2} Normal >90 [facility] Comment on above: Result Comment: CALC ULATIONS OF ESTIMATED GFR ARE PERFORMED USING THE 2020 CKD-EPI STUDY REFIT EQUATION WITHOUT THE RACE VARIABLE FOR THE IDMS-TRACEABLE CREATININE METHODS. https://jasn.asnjournals.org/content//ASN.43304 59342 Performed By: #### B NP2 #### [address] [address] Glucose [Mass/Vol] 82 mg/dL Normal 74 - 99 [facility] Comment on above: Performed By: #### B NP2 #### [address] [address] HCO3 (Bld) [Moles/Vol] 27 mmol/L Normal 21 - 32 [facility] Comment on above: Performed By: #### B NP2 #### [address] [address] Potassium [Moles/Vol] 3.8 mmol/L Normal 3.5 - 5.3 [facility] Comment on above: Performed By: #### B NP2 #### [address] [address] Protein [Mass/Vol] 6.5 g/dL Normal 6.4 - 8.2 [facility] Comment on above: Performed By: #### B NP2 #### [address] [address] Sodium [Moles/Vol] 139 mmol/L Normal 136 - 145 [facility] Comment on above: Performed By: #### B NP2 #### [place] [address] [place] [address] Urea nitrogen [Mass/Vol] 16 mg/dL Normal 6 - 23 [facility] Comment on above: Performed By: #### B NP2 #### [address] [address] [address] ANGIO CHEST FOR PEon 12-0 CT ANGIO CHEST FOR PE Patient Name: ALMA ECHEVERRIA STUDY: CT ANGIO CHEST FOR PE; 09/09/2022 1:11 pm INDICATION: let pleuritic rib pain . COMPARISON: CT abdomen/pelvis of 08/12/2022. CT chest of 07/20/2016. ACCESSION NUMBER(S): [id number] ORDERING CLINICIAN: XIN PEREIRA TECHNIQUE: Helical data acquisition of the chest was obtained following intravenous administration of 90 mL Omnipaque 350 contrast. Images were reformatted in axial, coronal, and sagittal planes. MIP images were created and reviewed. FINDINGS: POTENTIAL LIMITATIONS OF THE STUDY: Motion artifact degrades image detail. HEART AND VESSELS: There is no evidence of pulmonary embolism. There is no evidence of aortic dissection or aneurysm. Irregular atherosclerotic calcifications are present in the aorta and branch vessels. There is some tortuosity of the descending thoracic and upper abdominal aorta. No pericardial effusion. MEDIASTINUM AND KAVITA, LOWER NECK AND AXILLA: No mediastinal or hilar lymphadenopathy. No axillary lymphadenopathy. LUNGS AND AIRWAYS: Mild interstitial prominence is seen with mild multifocal predominantly peripheral atelectasis and/or small infiltrates greatest toward the lung bases. No pleural effusion or pneumothorax. UPPER ABDOMEN: There is partial visualization of mild right hydronephrosis similar to prior abdominal CT. Cirrhotic morphology of the liver is also again noted. CHEST WALL AND OSSEOUS STRUCTURES: Generalized osteopenia is present with lower thoracic dextroscoliosis and increased thoracic kyphosis. Nonacute compression deformity of the T12 vertebral body with superior endplate depression and anterior wedging is again seen. Multilevel disc space narrowing and predominantly anterior endplate spurring is again seen throughout the spine with small vacuum discs at several levels. IMPRESSION: 1. Motion artifact degrades image detail. No evidence of pulmonary embolism. 2. 3. Mild right hydronephrosis similar to prior abdominal CT. 4. Cirrhosis. Electronically signed by: DADA ODOM MD [facility] Complete Blood Count + Diffe boyd 09-09-2022 Basophils/100 WBC (Bld) 0.7 % 0.0 - 2.0 -[employer] [facility] Work Phone: [phone] Erythrocyte distribution width (RBC) [Ratio] 14.5 % See Below [facility] Work Phone: [phone] Comment on above: Reference Range: 11. 5 - 14.5 Hematocrit (Bld) [Volume fraction] 41.7 % See Below [facility] Work Phone: [phone] Comment on above: Reference Range: 36. 0 - 46.0 Hemoglobin (Bld) [Mass/Vol] 13.6 g/dL See Below [facility] Work Phone: [phone] Comment on above: Reference Range: 12. 0 - 16.0 Lymphocytes/100 WBC (Bld) 32.1 % See Below [employer] [facility] Work Phone: [phone] Comment on above: Reference Range: 13. 0 - 44.0 MCHC (RBC) [Mass/Vol] 32.6 g/dL See Below [facility] [employer] [facility] Work Phone: [phone] Comment on above: Reference Range: 32. 0 - 36.0 MCV (RBC) [Entitic vol] 98 fL 80 - 100 [employer] [facility] Work Phone: Monocytes/100 WBC (Bld) 8.9 % 2.0 - 10.0 [employer] [facility] Work Phone: Neutrophils/100 WBC (Bld) 56.9 % See Below [employer] [facility] Work Phone: [phone] Comment on above: Reference Range: 40. 0 - 80.0 Platelets (Bld) [#/Vol] 150 10*3/uL 150 - 450 [facility] Work Phone: [phone] RBC (Bld) [#/Vol] 4.25 {x10E12/L} See Below [facility] Work Phone: Comment on above: Reference Range: 4.0 0 - 5.20 WBC (Bld) [#/Vol] 4.1 10*3/uL below low threshold 4.4 - 11.3 [facility] Work Phone: [phone] Complete Blood Count + Differential 0.03 {x10E9/L} See Below [facility] Work Phone: [phone] Comment on above: Reference Range: 0.0 0 - 0.10 Complete Blood Count + Differential 0.05 {x10E9/L} See Below [facility] Work Phone: [phone] Comment on above: Reference Range: 0.0 0 - 0.40 Complete Blood Count + Differential 0.37 {x10E9/L} See Below [facility] Work Phone: [phone] Comment on above: Reference Range: 0.0 5 - 0.80 Complete Blood Count + Differential 1.33 {x10E9/L} See Below [facility] Work Phone: Comment on above: Reference Range: 0.8 0 - 3.00 Complete Blood Count + Differential 2.35 {x10E9/L} See Below [facility] Work Phone: [phone] Comment on above: Reference Range: 1.6 0 - 5.50 Percent differential counts (%) should be interpreted in the context of the absolute cell counts (cells/L). Complete Blood Count + Differential 1.2 % 0.0 - 6.0 [facility] Work Phone: [phone] Complete Blood Count + Differential 0.2 % 0.0 - 0.9 [facility] Work Phone: [phone] Comment on above: Immature Granulocyte Count (IG) includes promyelocytes, myelocytes and metamyelocytes but does not include bands. Percent differential counts (%) should be interpreted in the context of the absolute cell counts (cells/L). Covid 19 Resultson 2 SARS-CoV-2 (COVID-19) RNA SHENG+probe Ql (Unsp spec) NEGATIVE COVID-19 Test Coronaviruses are common world-wide and are the cause of many common colds. SARS-COV2 is a new coronavirus that began circulating worldwide in 2019 so we are calling it COVID-19. It has been estimated that four out of five patients with COVID-19 will recover at home without the need for medical attention. Symptoms of COVID-19 may include cough, fever, shortness of breath, loss of taste or smell and other flu-like symptoms including chills, sore muscles, sore throat, and headache. Severe illness is more common in older people and people with other health problems such as high blood pressure, obesity, and immune system problems. If the test is positive, you have COVID-19. You will be contacted by the ordering physicians office and instructed to remain on home isolation, in accordance with CDC guidelines. You may also be contacted by the [facility] to see if any of your close contacts may have been exposed to the virus and need to quarantine. If the test is negative, you likely do not have COVID-19 at this time, but you still may have a different illness that can spread to other people (like Influenza, or the Flu) and could still be at risk for getting COVID-19. We recommend that you stay away from other people to limit the spread of illness until your symptoms are improving and you are fever-free for 24 hours without the use of fever lowering medications such as acetaminophen or ibuprofen. No test is 100% accurate so if you are still concerned you may have COVID-19, talk to your doctor about the need to continue to stay away from others. Medicines Unless your provider told you not to use the following: Acetaminophen (Tylenol and others) is generally safe. Anti-inflammatory medications, such as Ibuprofen (Advil or Motrin) or Naproxen (Aleve) can also be used. Dahu-sbq-vualeow cough and cold medicines can be used according to the instructions on the package. Some glvt-doj-dmjokae medicines also contain acetaminophen. Make sure you are not taking more than your recommended dose. For those not hospitalized, there is no specific treatment available for this illness. Antibiotics do not treat Coronaviruses. Follow-Up Follow up with your doctor by scheduling a virtual visit or consider follow-up at one of our urgent care fever clinics. If you are having difficulty breathing, or are very weak and having difficulty standing, this is a medical emergency. Call 911 or have someone take you to the nearest emergency room immediately. If possible, wear a facemask. Additional guidance from the CDC for patients who tested POSITIVE for COVID-19 How to isolate: Isolate yourself in a specific room at home and limit your contact with others. Use a separate bathroom from other members of the household, when possible. Leave home only to get essential medical care. Do not go to work, school or public areas. Avoid using public transportation, ride-sharing, or taxis. Restrict contact with pets and other animals. If you must care for your pet or be around animals while you are sick, wash your hands before and after your interaction and wear a facemask. Make sure that shared spaces in the home have good airflow, such as by an air conditioner or an opened window, weather permitting. Personal Hygiene Procedures: Wear a face mask when in the same room as other people or pets. If a face mask interferes with your breathing, others should wear a mask when sharing space with you. Frequent hand-washing: wash your hands with soap and water for at least 20 seconds. If soap and water are not available, use alcohol-based hand glass technician/installer. Avoid touching your eyes, nose, and mouth with unwashed hands. Household Hygiene Procedures: Avoid sharing personal household items such as dishes, glassware, cups, eating utensils, towels or bedding with other people or pets in your home. After use, these items should be washed with soap and hot water. Disinfect all high-touch surfaces every day with antibacterial cleaning solutions such as Lysol wipes, bleach, cleansers, etc. High-touch surfaces include tabletops, doorknobs, bathroom fixtures, toilets, phones, keyboards, tablets and bedside tables. Immediately clean any surfaces that may have blood, poop or body fluids on them, using antibacterial cleaning solutions such as Lysol wipes, bleach, cleansers, etc. If clothing or bedding come into contact with blood, poop or body fluids, they should be washed immediately. Follow the directions on the laundry detergent and clothing labels but hot water is recommended when possible. Stopping home isolation precautions: If possible, consult your doctor before stopping home isolation precautions. According to the CDC, you can discontinue home isolation precautions when you have met both of these criteria: Your fever and respiratory symptoms have been gone for 24 sofi (more content not included)... Normal [facility] D-DIMER, VTE EXCLUSIONon D-DIMER, VTE EXCLUSION 787 ng/mL FEU Abnormal < or = 500 [facility] Comment on above: Result Comment: The VTE Exclusion D-Dimer assay is reported in ng/mL Fibrinogen Equivalent Units (FEU). Per manufacturers instructions for use, a value of less than 500 ng/mL (FEU) may help to exclude DVT or PE in outpatients when the assay is used with a clinical pretest probability assessment. (AEMR must utilize and document eCalc Wells Score Deep Vein Thrombosis Risk for DVT exclusion only; Emergency Department should utilize Guidelines for Emergency Department Use of the VTE Exclusion D-Dimer and Clinical Pretest probability assessment model for DVT or PE exclusion.) Performed By: #### D IMEX #### [place] [address] INFLUENZA A/B, COVID 2019 PC R,SYMPTOMATICon 09-09-2022 INFLUENZA A, PCR Not detected Normal Not Detected [facility] Comment on above: Result Comment: Resp iratory virus testing is performed routinely by PCR for Influenza A/B and RSV. Not Detected results do not preclude Influenza A/B or RSV infections since the adequacy of sample collection or low viral burden may impact the clinical sensitivity of this test method. Performed By: #### C OINP #### [place] [address] INFLUENZA B, PCR Not detected Normal Not Detected [facility] Comment on above: Result Comment: Resp iratory virus testing is performed routinely by PCR for Influenza A/B and RSV. Not Detected results do not preclude Influenza A/B or RSV infections since the adequacy of sample collection or low viral burden may impact the clinical sensitivity of this test method. Performed By: #### C OINP #### [place] [address] SARS-CoV-2 (COVID-19) RNA SHENG+probe Ql (Unsp spec) Not detected Normal Not Detected [facility] Comment on above: Result Comment: . This test has received [facility] Emergency Use Authorization (EUA) and has been verified by [facility]. This test is only authorized for the duration of time that circumstances exist to justify the authorization of the emergency use of in vitro diagnostic tests for the detection of SARS-CoV-2 virus and/or diagnosis of COVID-19 infection under section 564(b)(1) of the Act, 21 U.S.C. 360bbb-3(b)(1), unless the authorization is terminated or revoked sooner. [facility] is certified under CLIA-88 as qualified to perform high complexity testing. Testing is performed in the [facility] laboratory located at [address] [place] [address]. SARS-CoV-2/Flu/RSV Multiplex Test: Fact sheet for providers: https://www.fda.gov/media/840147/download Fact sheet for patients: https://www.fda.gov/media/466368/download Performed By: #### C OINP #### [place] [address] Lab Specimen Source Nasal, Nasopharyngeal Normal [facility] Comment on above: Performed By: #### C OINP #### [place] [address] INFLUENZA A/B, COVID 2019 PCR,SYMPTOMATIC Not detected See Below -[facility] Work Phone: Comment on above: Reference Range: Not Detected.This test has received FDA Emergency Use Authorization (EUA) and has been verified by [facility]. This test is only authorized for the duration of time that circumstances exist to justify the authorization of the emergency use of in vitro diagnostic tests for the detection of SARS-CoV-2 virus and/or diagnosis of COVID-19 infection under section 564(b)(1) of the Act, 21 U.S.C. 360bbb-3(b)(1), unless the authorization is terminated or revoked sooner. [facility] is certified under CLIA-88 as qualified to perform high complexity testing. Testing is performed in the [facility] laboratory located at [address] [place] [address].SARS-CoV-2/Flu/RSV Multiplex Test: Fact sheet for providers: https://www.fda.gov/media/312516/downloadFact sheet for patients: https://www.fda.gov/media/257131/download Reference Range: Not Detected Respiratory virus testing is performed routinely by PCR for Influenza A/B and RSV. Not Detected results do not preclude Influenza A/B or RSV infections since the adequacy of sample collection or low viral burden may impact the clinical sensitivity of this test method. SOURCE: Nasal, Nasop haryngealReference Range: Not Detected Respiratory virus testing is performed routinely by PCR for Influenza A/B and RSV. Not Detected results do not preclude Influenza A/B or RSV infections since the adequacy of sample collection or low viral burden may impact the clinical sensitivity of this test method. Laboratory - Chemistry and C hemistry - challengeon 09-09-2022 Albumin BCP dye [Mass/Vol] 3.6 g/dL 3.4 - 5.0 [facility] Work Phone: [phone] ALP [Catalytic activity/Vol] 151 U/L above high threshold 33 - 136 [facility] Work Phone: [phone] ALT With P-5'-P [Catalytic activity/Vol] 15 U/L 7 - 45 [facility] [place] Work Phone: Comment on above: Patients treated wit h Sulfasalazine may generate falsely decreased results for ALT. Anion gap [Moles/Vol] 11 mmol/L 10 - 20 [facility] [place] [facility] Work Phone: AST With P-5'-P [Catalytic activity/Vol] 34 U/L 9 - 39 [facility] Work Phone: Bilirubin [Mass/Vol] 0.8 mg/dL 0.0 - 1.2 [facility] [employer] [facility] Work Phone: [phone] Calcium [Mass/Vol] 8.8 mg/dL 8.6 - 10.3 [facility] Work Phone: [phone] Chloride [Moles/Vol] 105 mmol/L 98 - 107 [facility] Work Phone: [phone] CO2 [Moles/Vol] 27 mmol/L 21 - 32 [facility] Work Phone: [phone] Creatinine [Mass/Vol] 0.65 mg/dL See Below [facility] Work Phone: [phone] Comment on above: Reference Range: 0.5 0 - 1.05 Glucose [Mass/Vol] 82 mg/dL 74 - 99 [facility] Work Phone: [phone] Potassium [Moles/Vol] 3.8 mmol/L 3.5 - 5.3 [facility] Work Phone: [phone] Protein [Mass/Vol] 6.5 g/dL 6.4 - 8.2 [facility] Work Phone: [phone] Sodium [Moles/Vol] 139 mmol/L 136 - 145 [facility] Work Phone: [phone] Urea nitrogen [Mass/Vol] 16 mg/dL 6 - 23 [facility] Work Phone: [phone] Laboratory - Coagulationon 1 11-10-2021 INR Coag (PPP) [Relative time] 1.2 {INR} above high threshold 0.9 - 1.1 [facility] Work Phone: PT Coag (PPP) [Time] 13.4 s 9.8 - 13.4 [facility] Work Phone: MAGNESIUMon 09-09-2022 Magnesium [Mass/Vol] 1.99 mg/dL Normal 1.60 - 2.40 [facility] Comment on above: Performed By: #### M G #### [facility] [address] [place] [address] Magnesium, Serumon 2 Magnesium [Mass/Vol] 1.99 mg/dL See Below [facility] [place] Work Phone: Comment on above: Reference Range: 1.6 0 - 2.40 No Panel Informationon 09-09 38 pg/mL 0 - 99 [facility] Work Phone: Comment on above: . <100 pg/mL - Heart failure [id number] pg/mL - Intermediate probability of acute heart. failure exacerbation. Correlate with clinical. context and patient history. >=300 pg/mL - Heart Failure likely. Correlate with clinical. context and patient history.BNP testing is performed using different testing methodology at [facility] than at other [facility]. Direct result comparisons should only be made within the same method. 89 {mL/min/1.73m2} >90 [facility] [place]: Comment on above: CALCULATIONS OF JAI MATED GFR ARE PERFORMED USING THE 2020 CKD-EPI STUDY REFIT EQUATION WITHOUT THE RACE VARIABLE FOR THE IDMS-TRACEABLE CREATININE METHODS.https://jasn.asnjournals.org/content//A .[id number] 787 {ng/mL_FEU} Abnormal < or = 500 -[employer] [facility] Work Phone: [phone] Comment on above: The VTE Exclusion D- Dimer assay is reported in ng/mL Fibrinogen Equivalent Units (FEU). Per manufacturers instructions for use, a value of less than 500 ng/mL (FEU) may help to exclude DVT or PE in outpatients when the assay is used with a clinical pretest probability assessment. (AEMR must utilize and document eCalc Wells Score Deep Vein Thrombosis Risk for DVT exclusion only; Emergency Department should utilize Guidelines for Emergency Department Use of the VTE Exclusion D-Dimer and Clinical Pretest probability assessment model for DVT or PE exclusion.) PT/INRon 09-09-2022 PT Coag (PPP) [Time] 13.4 s Normal 9.8 - 13.4 [facility] Comment on above: Performed By: #### M Afshin #### [address] [address] PT, INR 1.2 High 0.9 - 1.1 [facility] Comment on above: Performed By: #### M G #### [address] [address] Provider Note - ED v3on 12-0 Provider Note - ED v3 Provider Note: Chart Review: ED NOTES ED NOTES: ====HPI==== Patient is an 81-year-old female who presents to the emergency department with a chief complaint of left sided rib pain. Patient denies any injury. She states that the pain started 5 days ago. She states that she has pain when she takes a deep breath. The pain is worse with movement and breathing but sometimes she states that there when she cannot move or breathe. She denies any fever or chills. No cough. She states that she was seen at the chiropractor and this did not improve her symptoms. Is any nausea, vomiting, diarrhea, or abdominal pain. No shortness of breath. PMHX: Thyroid disorder, uterine cancer, bowel obstruction, cirrhosis of the liver. Social HX: Denies TOBACCO Denies ETOH Denies DRUGS ====Review of Systems==== 10 point system review is negative except for those specifically mentioned in history of present illness ====Physical Exam==== Constitutional/General: Alert and oriented x3, well appearing, nontoxic, and in NAD. Head: Normocephalic and atraumatic. Eyes: PERRL, EOMI, conjunctive normal, sclera nonicteric, subconjunctival layer is pink. Mouth: Oropharynx clear, handling secretions, no trismus, no asymmetry of the posterior oropharynx or uvular edema Neck: Supple, full ROM, non tender to palpation in the midline, no stridor, no crepitus, no meningeal signs. Trachea at midline. Respiratory: Lungs clear to auscultation bilaterally, no wheezes, rales, or rhonchi, not in respiratory distress. Cardiovascular: Regular rate, regular rhythm, no murmurs, gallops, or rubs, 2+ distal pulses. Chest: normal chest wall movement, tender to left lateral chest wall GI: Abdomen soft, nontender, nondistended, , no organomegaly, no palpable masses, no rebound, guarding, or rigidity. Musculoskeletal: Moves all extremities x4, warm and well perfused, no clubbing, cyanosis, or edema, cap refill <3 seconds Integument: Skin warm and dry, no rashes. Lymphatic: No lymphadenopathy noted. Neurologic: GCS 15, no focal deficits, symmetric strength 5/5 in the upper and lower extremities bilaterally. Psychiatric: Normal affect. ====ED Course and Medical Decision Making==== See MDM section for review of findings & plan of care. Portions of this note were dictated by speech recognition. An attempt at proof reading was made to minimize errors. Minor errors in mechanical engineering specialist may be present. Please call if questions.. HISTORY OF PRESENTING ILLNESS ALMA is a 81 year old Female and was seen by me at 09-Sep-2022 10:37 for a chief complaint of rib pain/injury (Patient to ED reference left sided rib/upper back pain. Patient states the pain started Tuesday morning suddenly and hurts to take a deep breath. Patient negative falls or trauma.)(1). Triage Information: Most recent Vital Sign Value Date Temp (F): 97.5 09-09-2022 10:24 Temp (C): 36.3 09-09-2022 10:24 Heart Rate (beats/min): 67 09-09-2022 10:24 Respirations (breaths/min): 20 09-09-2022 10:24 SpO2 (%): 98 09-09-2022 10:24 BP Systolic (mm Hg): 170 09-09-2022 10:24 BP Diastolic (mm Hg): 89 09-09-2022 10:24 PAST MEDICAL HISTORY ALLERGIES/INTOLERANCES: Allergy Allergen: codeine Type: Drug Reaction: Other (Mild) HEALTH HISTORY: Medical History Name:Thyroid disorder Code:E07.9 Name:Colon polyps Code:K63.5 Name:Afib Code:I48.91 Name:Uterine cancer Code:C55 Name:Bowel obstruction Code:K56.609 Name:High cholesterol Code:E78.00 Name:Cirrhosis of liver Code:K74.60 OUTPATIENT MEDICATIONS: Home Medications Review Status for Reconciliation: N/A Med Status: Patient Currently Takes Medications Drug Name: Amitiza 8 mcg oral capsule Instructions: 1 cap(s) orally 2 times a day Drug Name: aspirin 81 mg oral tablet Instructions: orally once a day Drug Name: atorvastatin 10 mg oral tablet Instructions: 1 tab(s) orally once a day Drug Name: Cartia XT 240 mg/24 hours oral capsule, extended release Instructions: 1 cap(s) orally once a day Drug Name: Dexilant 60 mg oral delayed release capsule Instructions: 1 cap(s) orally once a day Drug Name: furosemide 40 mg oral tablet Instructions: 1 tab(s) orally once a day Drug Name: Pradaxa 150 mg oral capsule Instructions: 1 cap(s) orally 2 times a day Drug Name: traMADol 50 mg oral tablet Instructions: 1 tab(s) orally every 6 hours Drug Name: MiraLax oral powder for reconstitution Instructions: null Drug Name: levothyroxine 50 mcg (0.05 mg) oral capsule Instructions: 1 cap(s) orally once a day SIGNIFICANT EVENTS: No documented data. CRITICAL CARE RESULTS: Recent Lab Results: I have reviewed these laboratory results: Troponin I, High Sensitivity Trending View [id number] 12:43:00 09-Sep-2022 11:39:00 Troponin I, High Sensitivity4 5 Complete Blood Count + Differential 09-Sep-2022 11:39: (more content not included)... [facility] RIBS, UNILATERAL, W PA CXR 3 VIEWSon 09-09-2022 RIBS, UNILATERAL, W PA CXR 3 VIEWS Patient Name: ALMA ECHEVERRIA STUDY: RIBS, UNILATERAL, W PA CXR 3 VIEWS; 09/09/2022 11:16 am INDICATION: pain . COMPARISON: Chest radiograph 07/27/2016 ACCESSION NUMBER(S): [id number] ORDERING CLINICIAN: XIN PEREIRA FINDINGS: CARDIOMEDIASTINAL SILHOUETTE: Cardiomediastinal silhouette is normal in size and configuration. LUNGS: Lungs are clear. ABDOMEN: No remarkable upper abdominal findings. Status post cholecystectomy. BONES: Five views left ribs: There is no acute left rib fracture. There is a right reverse total shoulder arthroplasty. IMPRESSION: No acute left rib fracture. Electronically signed by: TAL FREITAS MD [facility] Radiologyon 09-09-2022 XR Ribs - left 3 Views Normal [facility] Work Phone: Risk Screen - Adult Emergenc yon 09-09-2022 Risk Screen - Adult Emergency Preferred Language: Preferred Language: Preferred Language for Discussing Health Care (patient/designee)Bhavyasheila monroe Patient Preferred Pharmacy: Patient Preferred Pharmacy Statement: I have reviewed and updated the patient's preferred pharmacy selection for today's visit. Advanced Directives: Advance Directive/DNRyes Family Violence Adult: Abuse Screen: Are you or have you been threatened or abused physically, emotionally, or sexually by anyoneno Learning Assessment (Patient): Learning Assessment (Patient): Patient is Able to be Assessed for Learningyes Factors Influencing Readiness to Learnacuteness of illness Factors that Impact Ability to Learnnone Devices/Methods Used to Communicatenone Learning Preferencesaudio Cultural Considerationsnone Developmental Considerationsnone Judaism Considerationsnone Learning Assessment (Other Learner): Learning Assessment (Other Learner): Other learner availableno Pressure Injury/TB/Substance: Pressure Injury: Do you have a coughno Smoking Statusnever smoker Alcohol Usedenies Drug Usedenies Admission Risk Screen: Significant IndicatorsComplete CAGE: CAGE: Is this an injured patient at a Trauma Center ([facility]/[place] /[place]): no Electronic Signatures: Burt Corona (HAYDE) (Signed 09-Sep-2022 14:32) Authored: Preferred Language, Patient Preferred Pharmacy, Advanced Directives, Family Violence Adult, Learning Assessment (Patient), Learning Assessment (Other Learner), Pressure Injury/TB/Substance, Pressure Injury, CAGE Last Updated: 09-Sep-2022 14:32 by Burt Corona (HAYDE) [facility] TH CT Angio Chest For PEon 1 11-10-[address] Angio Chest For PE Normal [facility] Work Phone: TROPONIN I, HIGH SENSITIVITY on 09-09-2022 TROPONIN I, HIGH SENSITIVITY Canceled [facility] Comment on above: Order Comment: TEST TROPONIN I, HIGH SENSITIVITY WAS CANCELLED, 09/09/2022 13:47 Result Comment: . Less than 99th percentile of normal range cutoff- Female and children under 18 years old <14 ng/L; Male <21 ng/L: Negative Repeat testing should be performed if clinically indicated. . Female and children under 18 years old 14-50 ng/L; Male 21-50 ng/L: Consistent with possible cardiac damage and possible increased clinical risk. Serial measurements may help to assess extent of myocardial damage. . >50 ng/L: Consistent with cardiac damage, increased clinical risk and myocardial infarction. Serial measurements may help assess extent of myocardial damage. . NOTE: Children less than 1 year old may have higher baseline troponin levels and results should be interpreted in conjunction with the overall clinical context. . NOTE: Troponin I testing is performed using a different testing methodology at [facility] than at [facility]. Direct result comparisons should only be made within the same method. Performed By: #### B NP2 #### [address] [address] TROPONIN I, HIGH SENSITIVITY 4 ng/L Normal 0 - 13 [facility] Comment on above: Result Comment: . Less than 99th percentile of normal range cutoff- Female and children under 18 years old <14 ng/L; Male <21 ng/L: Negative Repeat testing should be performed if clinically indicated. . Female and children under 18 years old 14-50 ng/L; Male 21-50 ng/L: Consistent with possible cardiac damage and possible increased clinical risk. Serial measurements may help to assess extent of myocardial damage. . >50 ng/L: Consistent with cardiac damage, increased clinical risk and myocardial infarction. Serial measurements may help assess extent of myocardial damage. . NOTE: Children less than 1 year old may have higher baseline troponin levels and results should be interpreted in conjunction with the overall clinical context. . NOTE: Troponin I testing is performed using a different testing methodology at [facility] than at other [facility]. Direct result comparisons should only be made within the same method. Performed By: #### T [facility] #### [address] [address] TROPONIN I, HIGH SENSITIVITY 5 ng/L Normal 0 - 13 [facility] Comment on above: Result Comment: . Less than 99th percentile of normal range cutoff- Female and children under 18 years old <14 ng/L; Male <21 ng/L: Negative Repeat testing should be performed if clinically indicated. . Female and children under 18 years old 14-50 ng/L; Male 21-50 ng/L: Consistent with possible cardiac damage and possible increased clinical risk. Serial measurements may help to assess extent of myocardial damage. . >50 ng/L: Consistent with cardiac damage, increased clinical risk and myocardial infarction. Serial measurements may help assess extent of myocardial damage. . NOTE: Children less than 1 year old may have higher baseline troponin levels and results should be interpreted in conjunction with the overall clinical context. . NOTE: Troponin I testing is performed using a different testing methodology at [facility] than at other [facility]. Direct result comparisons should only be made within the same method. Performed By: #### B NP2 #### [facility] [address] [place] [address] Tropinin I.cardiac panel High sensitivity method 4 ng/L 0 - 13 [facility] Work Phone: Comment on above: .Less than 99th perc entile of normal range cutoff-Female and children under 18 years old <14 ng/L; Male <21 ng/L: NegativeRepeat testing should be performed if clinically indicated. .Female and children under 18 years old 14-50 ng/L; Male 21-50 ng/L:Consistent with possible cardiac damage and possible increased clinical risk. Serial measurements may help to assess extent of myocardial damage. .>50 ng/L: Consistent with cardiac damage, increased clinical risk andmyocardial infarction. Serial measurements may help assess extent of myocardial damage. . NOTE: Children less than 1 year old may have higher baseline troponin levels and results should be interpreted in conjunction with the overall clinical context. .NOTE: Troponin I testing is performed using a different testing methodology at [facility] than at other [facility] hospitals. Direct result comparisons should only be made within the same method. Tropinin I.cardiac panel High sensitivity method 5 ng/L 0 - 13 [facility] Work Phone: Comment on above: .Less than 99th perc entile of normal range cutoff-Female and children under 18 years old <14 ng/L; Male <21 ng/L: NegativeRepeat testing should be performed if clinically indicated. .Female and children under 18 years old 14-50 ng/L; Male 21-50 ng/L:Consistent with possible cardiac damage and possible increased clinical risk. Serial measurements may help to assess extent of myocardial damage. .>50 ng/L: Consistent with cardiac damage, increased clinical risk andmyocardial infarction. Serial measurements may help assess extent of myocardial damage. . NOTE: Children less than 1 year old may have higher baseline troponin levels and results should be interpreted in conjunction with the overall clinical context. .NOTE: Troponin I testing is performed using a different testing methodology at [facility] than at other [facility]. Direct result comparisons should only be made within the same method. Triage - EDon 09-09-2022 Triage - ED Quick Triage: The patient and/or guardian verbally acknowledges placement for services into the following (when Urgent Care Service hours are operating):emergency department Chart Review: ARRIVAL INFORMATION Mode of Arrival: private vehicle CHIEF COMPLAINT ALMA ECHEVERRIA is a Female patient with a chief complaint of rib pain/injury (Patient to ED reference left sided rib/upper back pain. Patient states the pain started Tuesday morning suddenly and hurts to take a deep breath. Patient negative falls or trauma.). Onset of the Complaint: 05-Sep-2022 08:00 Triage Date/Time: 09-Sep-2022 10:24 TEDDY: 2 Pain Rating (0-10): 10 = Severe Vital Signs: Temperature: 97.5F ( 36.3C) taken temporal Blood Pressure: 170/89 Mean: Heart Rate: 67 Respiratory Rate: 20 Pulse Oximetry: 98% Height: 4 feet 10.00 inches. 147.3 CM Weight: 160.2 pounds. Calculated 72.7 kg. (stated) Calculated BMI (kg/m2): 33.506 Calculated BSA (m2) 1.72 [place] Coma Scale: Best Eye Response: (E4) spontaneous Best Motor Response: (M6) obeys commands Best Verbal Response: (V5) oriented [place] Score: 15 [place] Assessment Qualifiers: patient not sedated/intubated Cough lasting greater than 3 weeks: no Allergies: yes Mask applied: yes Patient has homicidal thoughts: no Symptoms Are Negative For: abrasion, bleeding, bruising, deformity, difficulty bending, difficulty walking, numbness, pain (describe), decreased ROM and tingling. Risk Screens Suicide Risk Screen In the Past Month: Have you wished you were or wished you could go to sleep and not wake up no In the Past Month: Have you had any actual thoughts of killing yourself no In Your Lifetime: Have you ever done anything, started to do anything, or prepared to do anything to end your life no [place]allos Fall Scale Screening Has the patient fallen before (or is the patient in the ED as a result of a fall) has not had a fall Does the patient have an impaired gait does not have impaired gait Is the patient cognitively impaired not cognitively impaired Interventions: Ceballos Fall Interventions: LOW INTERVENTIONS: *patient oriented to surroundings and call system, * patient/family falls education completed and documented, *patients fall status communicated during bedside handoff, *whiteboard updated, *mode of toileting discussed with patient, *bed in low position with brakes locked, *call light in reach, * non-skid footwear TRAVEL HISTORY Travel History Coronavirus Screening: no exposure or symptoms Travel Exposure History: NO travel to International locations in the past 30 days PAIN Pain Scale Used: RIMMA Pain Rating (0-10): 10 = Severe Past Medical History: Past Medical History Reviewedno Electronic Signatures: Luis M Quinones (EMT-P) (Signed 09-Sep-2022 10:30) Entered: Risk Screens, Pain, Travel History, Chart Review, Scores Authored: Quick Triage, Risk Screens, Pain, Travel History, Chart Review, Scores Jose A Khan (RN) (Signed 09-Sep-2022 14:25) Authored: Quick Triage, Chart Review, Past Medical History Last Updated: 09-Sep-2022 14:25 by Jose A Khan (RN) [facility] ABDOMEN AND PELVIS W IV CONTRAST Patient Name: ALMA ECHEVERRIA STUDY: CT ABDOMEN AND PELVIS W IV CONTRAST; 08/12/2022 8:58 am INDICATION: luq pain R10.812: Left upper quadrant abdominal tenderness without rebound tenderness. COMPARISON: 04/03/2019 ACCESSION NUMBER(S): [id number] ORDERING CLINICIAN: SANCHO WOODRUFF TECHNIQUE: CT of the abdomen and pelvis was performed. Contiguous axial images were obtained at 3 mm slice thickness through the abdomen and pelvis. Coronal and sagittal reconstructions at 3 mm slice thickness were performed. 90 mL Omnipaque 350 administered intravenously without immediate complication. FINDINGS: LOWER CHEST: Mild bibasilar atelectasis. ABDOMEN: LIVER: Nodular and cirrhotic with hypertrophy of the left lateral segment. No definite focal hepatic lesions. BILE DUCTS: Not dilated. GALLBLADDER: Absent PANCREAS: Unremarkable SPLEEN: Unremarkable ADRENAL GLANDS: Unremarkable KIDNEYS AND URETERS: Mild right hydronephrosis appears similar to prior exam. As before, the cause is not certain. Unremarkable left kidney without hydronephrosis. PELVIS: BLADDER: Nondistended. REPRODUCTIVE ORGANS: Uterus appears to be absent. BOWEL: No findings of bowel obstruction or inflammation. Large colonic stool burden. Appendix is not identified and perhaps absent. Unremarkable mesentery. VESSELS: Severe atherosclerosis. Abdominal aorta is tortuous but otherwise patent without aneurysm. The major visceral arterial branches are patent. IVC and major branches are grossly patent. Major portal venous branches are patent. PERITONEUM AND RETROPERITONEUM: No free fluid or free air. No abdominal or pelvic lymphadenopathy. BONE AND ABDOMINAL WALL: Osteopenia. Lumbar degenerative changes with mild levoscoliosis. Interval development of multiple compression fractures, none of which appear acute: moderate at T12, mild at L3, and mild at L4. Severe lumbar degenerative changes. Trace anterolisthesis L4-5. Partially imaged right hip arthroplasty. IMPRESSION: 1. No acute findings of the abdomen or pelvis identified. 2. Large colonic stool burden 3. Roughly unchanged mild right hydronephrosis of uncertain etiology, perhaps related to ureteral stricture. 4. Cirrhosis. No ascites. 5. Multiple compression fractures, most advanced at T12, new since 2019 but none of which appear acute. Electronically signed by: SYDNI RO MD [facility] CT Abdomen and Pelvis with I V Contraston 08-12-2022 CT Abdomen and Pelvis W contrast IV Normal [facility] Work Phone: Laboratory - Chemistry and C hemistry - challengeon 08-10-2022 Anion gap [Moles/Vol] 8 mmol/L below low threshold 10 - 20 [facility] Work Phone: Calcium [Mass/Vol] 9.1 mg/dL 8.6 - 10.3 [facility] Work Phone: Chloride [Moles/Vol] 104 mmol/L 98 - 107 [employer] [facility] Work Phone: CO2 [Moles/Vol] 32 mmol/L 21 - 32 [facility] Work Phone: Creatinine [Mass/Vol] 0.61 mg/dL See Below [facility] Work Phone: Comment on above: Reference Range: 0.5 0 - 1.05 Glucose [Mass/Vol] 80 mg/dL 74 - 99 [facility] Work Phone: Potassium [Moles/Vol] 4.1 mmol/L 3.5 - 5.3 [facility] Work Phone: Sodium [Moles/Vol] 140 mmol/L 136 - 145 [employer] Work Phone: Urea nitrogen [Mass/Vol] 15 mg/dL 6 - 23 [facility] Work Phone: No Panel Informationon 08-10 90 {mL/min/1.73m2} >90 [facility] Work Phone: Comment on above: CALCULATIONS OF JAI MATED GFR ARE PERFORMED USING THE 2020 CKD-EPI STUDY REFIT EQUATION WITHOUT THE RACE VARIABLE FOR THE IDMS-TRACEABLE CREATININE METHODS.https://jasn.asnjournals.org/content///A SN.[id number] Office Visit (Primary Care T xt/Forms)on 08-03-2022 Follow-up visit Diagnoses/Problems Assessed DDD (degenerative disc disease), 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) Left upper quadrant abdominal tenderness without rebound tenderness (789.62) (R10.812) Diverticulitis, colon (562.11) (K57.32) Class 1 obesity with body mass index (BMI) of 34.0 to 34.9 in adult (278.00,V85.34) (E66.9,Z68.34) Orders DDD (degenerative disc disease), lumbosacral Renew: traMADol HCl - 50 MG Oral Tablet; 1 TAB Q 6 HOIUR PRN PAIN Diverticulitis, colon Basic Metabolic Panel; Status:Active; Requested for:03Aug2022; Left upper quadrant abdominal tenderness without rebound tenderness CT Abdomen and Pelvis with IV Contrast; Status:Hold For - Scheduling; Requested for:[id number]; Patient taking Metformin or Derivatives? : No Radiologist to Determine Optimal Study : Y What are the patient's signs and symptoms? : luq pain Patient Discussion/Summary 3 month appt csa lab and ct now Chief Complaint 3 MO CSA. DEVELOPED SORENESS UPPER LEFT ABDOMINAL AREA X 2 MO History of Present Illness Since the last office visit there have been no interval operations, hospitalizations, important illnesses or injuries. tramadol at 4 a day , effectiove for low back pain. I have personally reviewed the OARRS report for the above patient. This report is scanned into the electronic medical record. I have considered the risks of abuse, dependence, addiction, and diversion. I believe that it is clinically appropriate for the above patient to be prescribed this medication. it would be a tough life wothout tramadol. For 2 months had an ache and a stedy tenderness in luq. colon current. no change nnbowel hapbits. has cirrhosisi and hx of divertic Review of Systems General-no fatigue weight to within 10 pounds ENT no problems with vision swallowing Cardiac no chest pains palpitations change in exercise tolerance or capacity Pulmonary no cough shortness of breath GI no heartburn. 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) Diverticulitis, colon (562.11) (K57.32) Dyspepsia (536.8) (R10.13) Dysuria (788.1) (R30.0) Edema, unspecified type (782.3) (R60.9) Encounter for immunization (V03.89) (Z23) Excessive weight loss (783.21) (R63.4) Frequent UTI (599.0) (N39.0) Glossitis (529.0) (K14.0) Hydroureter on right (593.5) (N13.4) Hyperlipemia (272.4) (E78.5) Hypertension (401.9) (I10) Lumbar spondylolysis (738.4) (M43.06) Menopause (627.2) (Z78.0) Right foot pain (729.5) (M79.671) Screening for breast cancer (V76.10) (Z12.39) Screening for colon cancer (V76.51) (Z12.11) Screening mammogram for breast cancer (V76.12) (Z12.31) Sore throat (462) (J02.9) Uterine cancer (179) (C55) Past Medical History Problems History of Screening for breast cancer (V76.10) (Z12.39) Surgical History Problems History of Colonoscopy History of Excision of squamous cell carcinoma History of Shoulder surgery Family History Mother Family history of pancreatic cancer (V16.0) (Z80.0) Father Family history of cerebrovascular accident (CVA) (V17.1) (Z82.3) Family history of myocardial infarction (V17.3) (Z82.49) Child Family history of malignant neoplasm of female genital organ (V16.49) (Z80.49) Family history of multiple myeloma (V16.7) (Z80.7) Sister Family history of cerebrovascular accident (CVA) (V17.1) (Z82.3) Family history of coronary artery disease (V17.3) (Z82.49) Family history of malignant melanoma (V16.8) (Z80.8) Family history of malignant neoplasm of brain (V16.8) (Z80.8) Family history of malignant neoplasm of colon (V16.0) (Z80.0) Family history of malignant neoplasm of uterus (V16.49) (Z80.49) Brother Family history of cerebrovascular accident (CVA) (V17.1) (Z82.3) Family history of coronary artery disease (V17.3) (Z82.49) Family history of lung cancer (V16.1) (Z80.1) Family history of metastatic neoplastic disease (V16.9) (Z80.9) Family history of myocardial infarction (V17.3) (Z82.49) Social History Problems Former smoker (V15.82) (Z87.891) Minimum alcohol consumption No advance directives (V49.89) (Z78.9) Patient has active power of litigation attorney associate for health care (V49.89) (Z78.9) Current Meds Medication NameInstruction Amitiza 8 MCG Oral CapsuleTake 1 capsule twice daily Aspirin 81 MG TABSTAKE 1 TABLET DAILY. Atorvastatin Calcium 10 MG Oral TabletTAKE 1 TABLET DAILY. Cartia XT 240 MG Oral Capsule Extended Release 24 HourTAKE 1 CAPSULE Daily Dexilant 60 MG Oral Capsule Delayed ReleaseTAKE 1 CAPSULE DAILY EVERY MORNING (more content not included)... Normal [employer] Tobacco Screening.on Fall risk assessment a) No falls within the last year [facility] Work Phone: Tobacco use status CPHS b) No [facility] Work Phone: No Panel Informationon 06-16 [employer] Work Phone: [email or web address] x?[email or web address] [employer] Work Phone: Medicare Annual Wellness Vis iton 05-25-2022 Medicare Annual Wellness Visit *Chief Complaint MCW..RE CHECK SPOT ON TONGUE WHICH IS NOT GETTING BETTER. 3 MO CS PAPERWORK History of Present Illness The patient is being seen for the subsequent annual wellness visit. Past Medical, Surgical and Family History: reviewed and updated in chart. Interval History: Patient has not been hospitalized previously. Medications and Supplements: Review of all medications by a prescribing practitioner or clinical pharmacist (such as prescriptions, OTCs, herbal therapies and supplements) documented in the medical record. Yes, the patient is using opioids. Health Risk Assessment:. Paper HRA completed by patient and scanned into chart. Patient Self Assessment of Health Status: excellent. Tobacco use: Non-User Alcohol use: Non-User, As noted in social history 2/mo. Illicit drug use: Non-User Current diet: well balanced diet. Exercise Frequency: infrequently. Depression/Suicide Screening: . During the past 2 weeks, the patient has not felt down, depressed or hopeless. During the past 2 weeks, the patient has not felt little interest or pleasure in doing things. Hearing Impairment: none. Cognitive Impairment: No cognitive impairment observed. Bathing: performs independently. Dressing: performs independently. Walking: performs independently. Toileting: performs independently. Feeding: performs independently. Personal Hygiene: performs independently. Bowels: continent. Bladder: continent. Managing Finances: performs independently. Shopping: performs independently. Managing Medications: performs independently. Housework / Basic Home Maintenance: performs independently. Handling Transportation: performs independently. Preparing Meals: performs independently. Using the Telephone/ Communication Devices: performs independently. Falls Risk Screening:. AL[place] has not fallen in the last 6 months. Home safety risk factors: none. Advance directives:. Advance Care Planning discussed and documented in the medical record, patient did not wish or was not able to name a surrogate decision maker or provide an advance care plan. Patient has no living will. Patient has healthcare POA. seen for ? glossotis and was ok pnpred, now pain left side of amrik , no dysphagia for solid or loquis , voice a little raspy. will refer yolanda. not a lot of gerd, on dexilant as jesika cuevas, last egd is 3 yrs and scheduled for colon Hypothyroid- is euthyroid on replacement. Thyroid ros is unremarkable. on tramadol for back pain tram is great keep fully functional at 3-4 a day I have personally reviewed the OARRS report for the above patient. This report is scanned into the electronic medical record. I have considered the risks of abuse, dependence, addiction, and diversion. I believe that it is clinically appropriate for the above patient to be prescribed this medication. od 140 mme 18 Atrial fibrillation- no breakthru, continues on anticoagulation. Review of Systems General-no fatigue weight to within 10 pounds ENT no problems with vision swallowing Cardiac no chest pains palpitations change in exercise tolerance or capacity Pulmonary no cough shortness of breath GI no heartburn or abdominal pain Musculoskeletal ++ joint pains *Active Problems Acute UTI (599.0) (N39.0) AF (paroxysmal atrial fibrillation) (427.31) (I48.0) Hanley's esophagus (530.85) (K22.70) Cancer of skin, squamous cell (173.92) (C44.92) Chronic liver disease and cirrhosis (571.9,571.5) (K74.60,K76.9) Colon polyps (211.3) (K63.5) Compensated hypothyroidism (244.9) (E03.9) Constipation (564.00) (K59.00) DDD (degenerative disc disease), 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) Diverticulitis, colon (562.11) (K57.32) Dyspepsia (536.8) (R10.13) Dysuria (788.1) (R30.0) Edema, unspecified type (782.3) (R60.9) Encounter for immunization (V03.89) (Z23) Excessive weight loss (783.21) (R63.4) Frequent UTI (599.0) (N39.0) Hydroureter on right (593.5) (N13.4) Hyperlipemia (272.4) (E78.5) Hypertension (401.9) (I10) Lumbar spondylolysis (738.4) (M43.06) Menopause (627.2) (Z78.0) Right foot pain (729.5) (M79.671) Screening for breast cancer (V76.10) (Z12.39) Screening for colon cancer (V76.51) (Z12.11) Screening mammogram for breast cancer (V76.12) (Z12.31) Sore throat (462) (J02.9) Uterine cancer (179) (C55) Past Medical History History of Screening for breast cancer (V76.10) (Z12.39) Resolved Date: 04 Aug 2020 Surgical History History of Colonoscopy History of Excision of squamous cell carcinoma History of Shoulder surgery Family History Family history of pancreatic cancer (V16.0) (Z80.0) Family history of cerebrovascular accident (CVA) (V17.1) (Z82.3) Family history of myocardial infarction (V17.3) (Z82.49) Family history of malignant neoplasm of female genital organ (V16.49) (Z80.49) Family history of multiple myeloma (V16.7) (Z80.7) Family history of cerebrovascular accident (CVA) (V17.1) (Z82.3) Family histor (more content not included)... Normal [employer] Tobacco Screening.on 022 Fall risk assessment a) No falls within the last year [facility] Work Phone: Tobacco use status CPHS b) No [facility] Work Phone: Office Visit (Primary Care T xt/Forms)on 05-17-2022 Follow-up visit Diagnoses/Problems Assessed Sore throat (462) (J02.9) Orders Sore throat Start: predniSONE 20 MG Oral Tablet; TAKE 2 TABLETS DAILY Chief Complaint BUMPS ON BACK OF TONGUE X 4-5 DAYS History of Present Illness Sore throat and some itching and pain with the tongue going on about for 5 days. Exam throat looks fine mouth looks fine tongue has swollen taste buds posterior part. Tenderness to palpation of the neck no in enlarged lymph nodes Sounds like viral illness. Take anti-inflammatories does not like prednisone, will trial low-dose 20 mg once a day for 2 or 3 days of prednisone to see if it helps She will call at the end of the week if things or not better. Review of Systems Constitutional: No weakness, No fatigue. Eye: No blurring, No visual disturbances. Respiratory: No shortness of breath, No cough. Cardiovascular: No chest pain, No palpitations. Gastrointestinal: No nausea, No diarrhea, No constipation. Musculoskeletal: No joint pain, No muscle pain. Integumentary: No rash, No breakdown. Neurologic: Alert and oriented X4, No headache. Psychiatric: No irritability, No sleeping problems. 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) Diverticulitis, colon (562.11) (K57.32) Dyspepsia (536.8) (R10.13) Dysuria (788.1) (R30.0) Edema, unspecified type (782.3) (R60.9) Encounter for immunization (V03.89) (Z23) Excessive weight loss (783.21) (R63.4) Frequent UTI (599.0) (N39.0) Hydroureter on right (593.5) (N13.4) Hyperlipemia (272.4) (E78.5) Hypertension (401.9) (I10) Lumbar spondylolysis (738.4) (M43.06) Menopause (627.2) (Z78.0) Right foot pain (729.5) (M79.671) Screening for breast cancer (V76.10) (Z12.39) Screening for colon cancer (V76.51) (Z12.11) Screening mammogram for breast cancer (V76.12) (Z12.31) Uterine cancer (179) (C55) Past Medical History Problems History of Screening for breast cancer (V76.10) (Z12.39) Surgical History Problems History of Colonoscopy History of Excision of squamous cell carcinoma History of Shoulder surgery Family History Mother Family history of pancreatic cancer (V16.0) (Z80.0) Father Family history of cerebrovascular accident (CVA) (V17.1) (Z82.3) Family history of myocardial infarction (V17.3) (Z82.49) Child Family history of malignant neoplasm of female genital organ (V16.49) (Z80.49) Family history of multiple myeloma (V16.7) (Z80.7) Sister Family history of cerebrovascular accident (CVA) (V17.1) (Z82.3) Family history of coronary artery disease (V17.3) (Z82.49) Family history of malignant melanoma (V16.8) (Z80.8) Family history of malignant neoplasm of brain (V16.8) (Z80.8) Family history of malignant neoplasm of colon (V16.0) (Z80.0) Family history of malignant neoplasm of uterus (V16.49) (Z80.49) Brother Family history of cerebrovascular accident (CVA) (V17.1) (Z82.3) Family history of coronary artery disease (V17.3) (Z82.49) Family history of lung cancer (V16.1) (Z80.1) Family history of metastatic neoplastic disease (V16.9) (Z80.9) Family history of myocardial infarction (V17.3) (Z82.49) Social History Problems Former smoker (V15.82) (Z87.891) Minimum alcohol consumption No advance directives (V49.89) (Z78.9) Patient has active power of litigation attorney associate for health care (V49.89) (Z78.9) Current Meds Medication NameInstruction Amitiza 8 MCG Oral CapsuleTake 1 capsule twice daily Aspirin 81 MG TABSTAKE 1 TABLET DAILY. Atorvastatin Calcium 10 MG Oral TabletTAKE 1 TABLET DAILY. Cartia XT 240 MG Oral Capsule Extended Release 24 HourTAKE 1 CAPSULE Daily Dexilant 60 MG Oral Capsule Delayed ReleaseTAKE 1 CAPSULE DAILY EVERY MORNING BEFORE BREAKFAST. Furosemide 40 MG Oral TabletTAKE 1 TABLET DAILY. Levothyroxine Sodium 50 MCG Oral TabletTAKE 1 TABLET DAILY. Plenvu 140 GM Oral Solution Reconstituteduse as directed, 1 kit Polyethylene Glycol 3350 17 GM/SCOOP Oral PowderMIX 17 GRAMS IN 8 OUNCES OF LIQUID AND DRINK TWICE DAILY NEEDED. Pradaxa 150 MG Oral CapsuleTAKE 1 CAPSULE TWICE DAILY. traMADol HCl - 50 MG Oral Tablet1 TAB Q 6 HOIUR PRN PAIN Triamcinolone Acetonide 0.1 % External CreamAPPLY 2-3 TIMES DAILY TO AFFECTED AREA(S). Allergies Medication Advil TABS Codeine Lodine Tape 1X5YD TAPE Zestoretic TABS Vitals Vital Signs Recorded: [id number] 03:03PM Heart Rate: 80 Systolic: 124 Diastolic: 72 Height: 4 ft 10 in Weight: 161 lb 4 oz BMI Calculated: 33.7 kg/m2 BSA Calculated: 1.66 Tobacco Use: b) No PHQ-2 #1. Over the last 2 weeks have you felt down, depressed or hopeless? (more content not included)... Normal [employer] Tobacco Screening.on 022 Adult depression screening assessment No [facility] Work Phone: Fall risk assessment a) No falls within the last year [facility] Work Phone: Tobacco use status CPHS b) No [facility] Work Phone: LG Jt Injection/Arthrocentes is: L glenohumeralon 05-13-2022 Christine Voss CNP 05/13/2022 11:50 AM LG Jt Injection/Arthrocentesis : L glenohumeral Date/Time: 05/13/2022 11:49 AM Performed by: Christine Voss CNP Authorized by: Christine Voss CNP CPT 22232 - Large Joint Arthrocentesis: Consent given by: Patient Time out: Immediately prior to the procedure a time out was called Physician or proceduralist has discussed critical or nonroutine steps, procedure duration and anticipated blood loss: Yes Supporting Documentation: Indications: Pain and diagnostic evaluation Procedure Details: Location: Shoulder Site: L glenohumeral Prep: patient was prepped and draped in usual sterile fashion Needle size: 22 G Approach: Posterior Medications: 40 mg triamcinolone acetonide 40 mg/mL Anesthetic used: Lidocaine 1% Anesthetic amount (mL): 2 Patient tolerance: Patient tolerated the procedure well with no immediate complications [facility] Office Visit (Primary Care T xt/Forms)on 05-04-2022 Follow-up visit Diagnoses/Problems Assessed DDD (degenerative disc disease), 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 4 tram a day chiropractor weekly for ddd sp stenisis I have personally reviewed the OARRS report for the above patient. This report is scanned into the electronic medical record. I have considered the risks of abuse, dependence, addiction, and diversion. I believe that it is clinically appropriate for the above patient to be prescribed this medication. 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) Diverticulitis, colon (562.11) (K57.32) Dyspepsia (536.8) (R10.13) Dysuria (788.1) (R30.0) Edema, unspecified type (782.3) (R60.9) Encounter for immunization (V03.89) (Z23) Excessive weight loss (783.21) (R63.4) Frequent UTI (599.0) (N39.0) Hydroureter on right (593.5) (N13.4) Hyperlipemia (272.4) (E78.5) Hypertension (401.9) (I10) Lumbar spondylolysis (738.4) (M43.06) Menopause (627.2) (Z78.0) Right foot pain (729.5) (M79.671) Screening for breast cancer (V76.10) (Z12.39) Screening mammogram for breast cancer (V76.12) (Z12.31) Uterine cancer (179) (C55) Past Medical History Problems History of Screening for breast cancer (V76.10) (Z12.39) Surgical History Problems History of Colonoscopy History of Excision of squamous cell carcinoma History of Shoulder surgery Family History Mother Family history of pancreatic cancer (V16.0) (Z80.0) Father Family history of cerebrovascular accident (CVA) (V17.1) (Z82.3) Family history of myocardial infarction (V17.3) (Z82.49) Child Family history of malignant neoplasm of female genital organ (V16.49) (Z80.49) Family history of multiple myeloma (V16.7) (Z80.7) Sister Family history of cerebrovascular accident (CVA) (V17.1) (Z82.3) Family history of coronary artery disease (V17.3) (Z82.49) Family history of malignant melanoma (V16.8) (Z80.8) Family history of malignant neoplasm of brain (V16.8) (Z80.8) Family history of malignant neoplasm of colon (V16.0) (Z80.0) Family history of malignant neoplasm of uterus (V16.49) (Z80.49) Brother Family history of cerebrovascular accident (CVA) (V17.1) (Z82.3) Family history of coronary artery disease (V17.3) (Z82.49) Family history of lung cancer (V16.1) (Z80.1) Family history of metastatic neoplastic disease (V16.9) (Z80.9) Family history of myocardial infarction (V17.3) (Z82.49) Social History Problems Former smoker (V15.82) (Z87.891) Minimum alcohol consumption No advance directives (V49.89) (Z78.9) Patient has active power of litigation attorney associate for health care (V49.89) (Z78.9) Current Meds Medication NameInstruction Amitiza 8 MCG Oral CapsuleTake 1 capsule twice daily Aspirin 81 MG TABSTAKE 1 TABLET DAILY. Atorvastatin Calcium 10 MG Oral TabletTAKE 1 TABLET DAILY. Cartia XT 240 MG Oral Capsule Extended Release 24 HourTAKE 1 CAPSULE Daily Dexilant 60 MG Oral Capsule Delayed ReleaseTAKE 1 CAPSULE DAILY EVERY MORNING BEFORE BREAKFAST. Furosemide 40 MG Oral TabletTAKE 1 TABLET DAILY. Levothyroxine Sodium 50 MCG Oral TabletTAKE 1 TABLET DAILY. Polyethylene Glycol 3350 17 GM/SCOOP Oral PowderMIX 17 GRAMS IN 8 OUNCES OF LIQUID AND DRINK TWICE DAILY NEEDED. Pradaxa 150 MG Oral CapsuleTAKE 1 CAPSULE TWICE DAILY. traMADol HCl - 50 MG Oral Tablet1 TAB Q 6 HOIUR PRN PAIN Triamcinolone Acetonide 0.1 % External CreamAPPLY 2-3 TIMES DAILY TO AFFECTED AREA(S). Allergies Medication Advil TABS Codeine Lodine Tape 1X5YD TAPE Zestoretic TABS Vitals Vital Signs Recorded: 04May2022 09:33AM Heart Rate: 72 Systolic: 130 Diastolic: 88 Height: 4 ft 10 in Weight: 162 lb 3 oz BMI Calculated: 33.9 kg/m2 BSA Calculated: 1.67 Tobacco Use: b) No Falls Screening (Age 18+): a) No falls within the last year O2 Saturation: 97 Physical Exam cor rrr lungs clear Signatures Electronically signed by : Sancho Woodruff MD; May 04 2022 10:12AM (more content not included)... Normal [employer] Tobacco Screening.on 022 Fall risk assessment a) No falls within the last year [facility] Work Phone: Tobacco use status CP b) No [facility] Work Phone: LG Jt Injection/Arthrocentes is: L greater trochanteric bursaon 04-28-2022 Christine Voss CNP 04/28/2022 10:09 PM LG Jt Injection/Arthrocentesis : L greater trochanteric bursa Date/Time: 04/28/2022 10:08 PM Performed by: Christine Voss CNP Authorized by: Christine Voss CNP CPT 17744 - Large Joint Arthrocentesis: Consent given by: Patient Time out: Immediately prior to the procedure a time out was called Physician or proceduralist has discussed critical or nonroutine steps, procedure duration and anticipated blood loss: Yes Supporting Documentation: Indications: Diagnostic evaluation and pain Procedure Details: Location: Hip Site: L greater trochanteric bursa Prep: patient was prepped and draped in usual sterile fashion Needle size: 22 G Approach: Lateral Medications: 40 mg triamcinolone acetonide 40 mg/mL Anesthetic used: Lidocaine 1% Anesthetic amount (mL): 2 Patient tolerance: Patient tolerated the procedure well with no immediate complications [facility] No Panel Informationon 03-15 Atrial Rate [facility] P [place] [facility] P-R Interval [facility] Q-T Interval [facility] Q-T Interval (corrected) [facility] QRS Duration [facility] QTC Calculation (Bezet) [facility] R [place] [facility] T [place] [facility] Ventricular Rate [facility] ECG 12 leadon 03-12-2022 Atrial Rate [facility] P [place] [facility] P-R Interval [facility] Q-T Interval [facility] Q-T Interval (corrected) [facility] QRS Duration [facility] QTC Calculation (Bezet) [facility] R [place] [facility] T [place] [facility] Ventricular Rate [facility] Tobacco Screening.on 022 Fall risk assessment a) No falls within the last year [facility] Work Phone: Tobacco use status CPHS b) No [facility] Work Phone: [phone] Laboratory - Chemistry and C hemistry - challengeon 01-04-2022 Albumin BCP dye [Mass/Vol] 3.9 g/dL 3.4 - 5.0 [facility] Work Phone: [phone] ALP [Catalytic activity/Vol] 104 U/L 33 - 136 [facility] Work Phone: ALT With P-5'-P [Catalytic activity/Vol] 11 U/L 7 - 45 [facility] Work Phone: Comment on above: Patients treated wit h Sulfasalazine may generate falsely decreased results for ALT. Anion gap [Moles/Vol] 9 mmol/L below low threshold 10 - 20 [facility] Work Phone: AST With P-5'-P [Catalytic activity/Vol] 33 U/L 9 - 39 [facility] Work Phone: [phone] Bilirubin [Mass/Vol] 1.1 mg/dL 0.0 - 1.2 - [facility] Work Phone: [phone] Calcium [Mass/Vol] 9.1 mg/dL 8.6 - 10.3 -[facility] ical [facility] Work Phone: [phone] Chloride [Moles/Vol] 102 mmol/L 98 - 107 -[facility] Work Phone: [phone] CO2 [Moles/Vol] 32 mmol/L 21 - 32 -[facility] l [facility] Work Phone: [phone] Creatinine [Mass/Vol] 0.62 mg/dL See Below [facility] Work Phone: [phone] Comment on above: Reference Range: 0.5 0 - 1.05 Glucose [Mass/Vol] 76 mg/dL 74 - 99 -[facility] Work Phone: [phone] Potassium [Moles/Vol] 4.0 mmol/L 3.5 - 5.3 - [facility] Work Phone: [phone] Protein [Mass/Vol] 6.9 g/dL 6.4 - 8.2 -[facility] Work Phone: [phone] Sodium [Moles/Vol] 139 mmol/L 136 - 145 -[facility] Work Phone: [phone] Urea nitrogen [Mass/Vol] 15 mg/dL 6 - 23 -[facility] Work Phone: [phone] Laboratory - Hematology and Cell countson 01-04-2022 Erythrocyte distribution width (RBC) [Ratio] 14.8 % above high threshold See Below [facility] Work Phone: [phone] Comment on above: Reference Range: 11. 5 - 14.5 Hematocrit (Bld) [Volume fraction] 40.3 % See Below [facility] Work Phone: [phone] Comment on above: Reference Range: 36. 0 - 46.0 Hemoglobin (Bld) [Mass/Vol] 13.4 g/dL See Below [facility] [facility] Work Phone: [phone] Comment on above: Reference Range: 12. 0 - 16.0 MCHC (RBC) [Mass/Vol] 33.2 g/dL See Below [employer] [facility] Work Phone: [phone] Comment on above: Reference Range: 32. 0 - 36.0 MCV (RBC) [Entitic vol] 95 fL 80 - 100 [facility] Work Phone: [phone] Platelets (Bld) [#/Vol] 139 10*3/uL below low threshold 150 - 450 [facility] Work Phone: RBC (Bld) [#/Vol] 4.22 {x10E12/L} See Below [facility] [facility] Work Phone: [phone] Comment on above: Reference Range: 4.0 0 - 5.20 WBC (Bld) [#/Vol] 4.7 10*3/uL 4.4 - 11.3 [employer] [facility] Work Phone: [phone] No Panel Informationon 01-04 90 {mL/min/1.73m2} >90 Content Syndicate: [employer] [facility] Work Phone: [phone] Comment on above: CALCULATIONS OF JAI MATED GFR ARE PERFORMED USING THE 2020 CKD-EPI STUDY REFIT EQUATION WITHOUT THE RACE VARIABLE FOR THE IDMS-TRACEABLE CREATININE METHODS.https://jasn.asnjournals.org/content//A SN.5456230760 TSH - Thyroid Stimulating Ho rmone, Serumon 01-04-2022 TSH Qn 5.52 m[IU]/L above high threshold See Below [employer] [facility] Work Phone: [phone] Comment on above: Reference Range: 0.4 4 - 3.98 TSH testing is performed using different testing methodology at [facility] than at other [facility] hospitals. Direct result comparisons should only be made within the same method. Tobacco Screening.on 022 Fall risk assessment a) No falls within the last year [facility] Work Phone: Tobacco use status [facility] b) No [facility] Work Phone: Laboratory - Chemistry and C hemistry - challengeon 11-05-2021 Creatinine (Body fld) [Mass/Vol] 60.9 mg/dL [facility] Work Phone: Comment on above: A urine creatinine r esult >= 20 mg/dL is considered valid without suspicion of dilution. Samples with results below this range will automatically reflex to specific gravity testing to verify specimen integrity. Laboratory - Drug toxicology on 11-05-2021 1-Hydroxymidazolam Confirm (U) [Mass/Vol] <25 Cutoff <25 [employer] [facility] Work Phone: [phone] 2-Igjidyuuic-2,5-Dimet hyl-3,3-Diphenylpyrrol idine (EDDP) Confirm (U) [Mass/Vol] <25 Cutoff <25 [facility] Work Phone: Comment on above: The performance kalli acteristics of the Methadone Confirmation, Urine has been validated by the individual laboratory site where testing is performed. It has not been cleared or approved by the FDA. However the FDA has determined that such clearance or approval is not necessary. Our Laboratory is certified under the Clinical Laboratory Improvement Amendments of 1988 (CLIA) as qualified to perform high complexity clinical laboratory testing. 6-Monoacetylmorphine (6-TRA) Confirm (U) [Mass/Vol] <25 Cutoff <25 [facility] Work Phone: [phone] 7-Aminoclonazepam Confirm (U) [Mass/Vol] <25 Cutoff <25 [employer] [facility] Work Phone: [phone] Alpha hydroxyalprazolam Confirm (U) [Mass/Vol] <25 Cutoff <25 [employer] [facility] Work Phone: ALPRAZolam Confirm (U) [Mass/Vol] <25 Cutoff <25 [facility] Work Phone: Amphetamines Screen Ql (U) Negative NEGATIVE [facility] Work Phone: [phone] Comment on above: CUTOFF LEVEL: 500 NG /ML Cross-reactivity has been reported with high concentrations of the following drugs: buproprion, chloroquine, chlorpromazine, ephedrine, mephentermine, fenfluramine, phentermine, phenylpropanolamine, pseudoephedrine, and propranolol. Barbiturates Screen Ql (U) Negative NEGATIVE [facility] Work Phone: [phone] Comment on above: CUTOFF LEVEL: 200 NG /ML Benzoylecgonine Screen Ql (U) Negative NEGATIVE [facility] Work Phone: [phone] Comment on above: CUTOFF LEVEL: 150 NG /ML Cannabinoids Screen Ql (U) Negative NEGATIVE [facility] Work Phone: [phone] Comment on above: CUTOFF LEVEL: 50 NG/ ML chlordiazePOXIDE Confirm (U) [Mass/Vol] <25 Cutoff <25 -[facility] Work Phone: clonazePAM Confirm (U) [Mass/Vol] <25 Cutoff <25 [facility] Work Phone: Codeine Confirm (U) [Mass/Vol] <50 Cutoff <50 [facility] Work Phone: diazePAM Confirm (U) [Mass/Vol] <25 Cutoff <25 [facility] Work Phone: fentaNYL Confirm (U) [Mass/Vol] <2.5 Cutoff<2.5 -[facility] Work Phone: HYDROcodone Confirm (U) [Mass/Vol] <25 Cutoff <25 [facility] Work Phone: HYDROmorphone Confirm (U) [Mass/Vol] <25 Cutoff <25 [facility] Work Phone: LORazepam Confirm (U) [Mass/Vol] <25 Cutoff <25 [facility] Work Phone: Methadone Confirm (U) [Mass/Vol] <25 Cutoff <25 [facility] Work Phone: Midazolam Confirm (U) [Mass/Vol] <25 Cutoff <25 [facility] Work Phone: Morphine Confirm (U) [Mass/Vol] <50 Cutoff <50 [facility] Work Phone: Nordiazepam Confirm (U) [Mass/Vol] <25 Cutoff <25 [facility] Work Phone: Norfentanyl Confirm (U) [Mass/Vol] <2.5 Cutoff<2.5 [facility] Work Phone: Comment on above: The performance kalli acteristics of the Fentanyl Confirmation, Urine has been validated by the individual laboratory site where testing is performed. It has not been cleared or approved by the FDA. However the FDA has determined that such clearance or approval is not necessary. Our Laboratory is certified under the Clinical Laboratory Improvement Amendments of 1988 (CLIA) as qualified to perform high complexity clinical laboratory testing. Norhydrocodone Confirm (U) [Mass/Vol] <25 Cutoff <25 [facility] Work Phone: Noroxycodone Confirm (U) [Mass/Vol] <25 Cutoff <25 [facility] Work Phone: Nortramadol (U) [Mass/Vol] >1000 Abnormal Cutoff <50 [facility] [place] Work Phone: Comment on above: Tramadol metabolite; consistent with use of a drug containing tramadol, such as Ultram. The performance characteristics of the Tramadol Confirmation, Urine has been validated by the individual laboratory site where testing is performed. It has not been cleared or approved by the FDA. However the FDA has determined that such clearance or approval is not necessary. Our Laboratory is certified under the Clinical Laboratory Improvement Amendments of 1988 (CLIA) as qualified to perform high complexity clinical laboratory testing. Oxazepam Confirm (U) [Mass/Vol] <25 Cutoff <25 [facility] Work Phone: [phone] oxyCODONE Confirm (U) [Mass/Vol] <25 Cutoff <25 [facility] [place] Work Phone: [phone] oxyMORphone Confirm (U) [Mass/Vol] <25 Cutoff <25 [facility] [place] Work Phone: [phone] Comment on above: The performance kalli acteristics of the Opiate Confirmation, Urine has been validated by the individual laboratory site where testing is performed. It has not been cleared or approved by the FDA. However the FDA has determined that such clearance or approval is not necessary. Our Laboratory is certified under the Clinical Laboratory Improvement Amendments of 1988 (CLIA) as qualified to perform high complexity clinical laboratory testing. Phencyclidine Ql (U) Negative NEGATIVE [facility] [place] Work Phone: [phone] Comment on above: CUTOFF LEVEL: 25 NG/ ML Cross-reactivity has been reported with dextromethorphan. Temazepam Confirm (U) [Mass/Vol] <25 Cutoff <25 [facility] [place] Work Phone: Comment on above: The performance kalli acteristics of the Benzodiazepine Confirmation, Urine has been validated by the individual laboratory site where testing is performed. It has not been cleared or approved by the FDA. However the FDA has determined that such clearance or approval is not necessary. Our Laboratory is certified under the Clinical Laboratory Improvement Amendments of 1988 (CLIA) as qualified to perform high complexity clinical laboratory testing. traMADol Confirm (U) [Mass/Vol] >1000 Abnormal Cutoff <50 [facility] [place] Work Phone: [phone] Comment on above: Consistent with use of a drug containing tramadol, such as Ultram. Zolpidem (U) [Mass/Vol] <25 Cutoff <25 [facility] [place] Work Phone: No Panel Informationon 11-05 SEE BELOW -[facility] [place] Work Phone: Comment on above: Drug screen results are presumptive and should not be used to assess compliance with prescribed medication. Definitive confirmatory drug testing has been added to this sample for any positive screen result and will be reported separately. .Toxicology screening results are reported qualitatively. The concentration must be greater than or equal to the cutoff to be reported as positive. The concentration at which the screening test can detect an individual drug or metabolite varies. The absence of expected drug(s) and/or drug metabolite(s) may indicate non-compliance, inappropriate timing of specimen collection relative to drug administration, poor drug absorption, diluted/adulterated urine, or limitations of testing. For medical purposes only; not valid for forensic use. .Interpretive questions should be directed to the laboratory medical directors. <25 Cutoff <25 [employer] [facility] Work Phone: Comment on above: The performance kalli acteristics of the Zolpidem Confirmation, Urine has been validated by the individual laboratory site where testing is performed. It has not been cleared or approved by the FDA. However the FDA has determined that such clearance or approval is not necessary. Our Laboratory is certified under the Clinical Laboratory Improvement Amendments of 1988 (CLIA) as qualified to perform high complexity clinical laboratory testing. Tobacco Screening.on 022 Adult depression screening assessment Yes [employer] [facility] Work Phone: Adult depression screening assessment No [facility] Work Phone: Fall risk assessment a) No falls within the last year [employer] [facility] Work Phone: Tobacco use status CPHS b) No [facility] Work Phone: LG Jt Injection/Arthrocentes is: L glenohumeralon 10-13-2021 Christine Voss CNP 10/13/2021 11:26 AM LG Jt Injection/Arthrocentesis : L glenohumeral Performed by: Christine Voss CNP Authorized by: Christine Voss CNP CPT 83020 - Large Joint Arthrocentesis: Consent given by: Patient Time out: Immediately prior to the procedure a time out was called Physician or proceduralist has discussed critical or nonroutine steps, procedure duration and anticipated blood loss: Yes Supporting Documentation: Indications: Pain and diagnostic evaluation Procedure Details: Location: Shoulder Site: L glenohumeral Prep: patient was prepped and draped in usual sterile fashion Needle size: 22 G Approach: Posterior Medications: 40 mg triamcinolone acetonide 40 mg/mL Anesthetic used: Lidocaine 1% Anesthetic amount (mL): 2 Patient tolerance: Patient tolerated the procedure well with no immediate complications [facility] LG Jt Injection/Arthrocentes is: L greater trochanteric bursaon 10-13-2021 Christine Voss CNP 10/13/2021 11:26 AM LG Jt Injection/Arthrocentesis : L greater trochanteric bursa Performed by: Christine Voss CNP Authorized by: Christine Voss CNP CPT 65918 - Large Joint Arthrocentesis: Consent given by: Patient Time out: Immediately prior to the procedure a time out was called Physician or proceduralist has discussed critical or nonroutine steps, procedure duration and anticipated blood loss: Yes Supporting Documentation: Indications: Diagnostic evaluation and pain Procedure Details: Location: Hip Site: L greater trochanteric bursa Prep: patient was prepped and draped in usual sterile fashion Needle size: 22 G Medications: 40 mg triamcinolone acetonide 40 mg/mL Anesthetic used: Lidocaine 1% Anesthetic amount (mL): 2 Patient tolerance: Patient tolerated the procedure well with no immediate complications [facility] No Panel Informationon 10-13 [facility] Mamm - Screening Mammogram w / Tomosynthesison 10-12-2021 MG Breast Screening Normal [facility] Work Phone: [phone] CT Abdomen and Pelvis with I V Contraston 08-26-2021 CT Abdomen and Pelvis W contrast IV Normal [facility] Work Phone: Laboratory - Chemistry and C hemistry - challengeon 08-24-2021 Albumin BCP dye [Mass/Vol] 3.7 g/dL 3.4 - 5.0 [facility] Work Phone: ALP [Catalytic activity/Vol] 99 U/L 33 - 136 [facility] Work Phone: ALT With P-5'-P [Catalytic activity/Vol] 12 U/L 7 - 45 [facility] Work Phone: Comment on above: Patients treated wit h Sulfasalazine may generate falsely decreased results for ALT. Anion gap [Moles/Vol] 8 mmol/L below low threshold 10 - 20 [facility] Work Phone: AST With P-5'-P [Catalytic activity/Vol] 35 U/L 9 - 39 [facility] Work Phone: Bilirubin [Mass/Vol] 0.9 mg/dL 0.0 - 1.2 [facility] [employer] [facility] Work Phone: Calcium [Mass/Vol] 9.4 mg/dL 8.6 - 10.3 [facility] [employer] [facility] Work Phone: Chloride [Moles/Vol] 104 mmol/L 98 - 107 [facility] [employer] [facility] Work Phone: CO2 [Moles/Vol] 33 mmol/L above high threshold 21 - 32 [facility] Work Phone: Creatinine [Mass/Vol] 0.58 mg/dL See Below [facility] [employer] [facility] Work Phone: Comment on above: Reference Range: 0.5 0 - 1.05 Glucose [Mass/Vol] 79 mg/dL 74 - 99 -[facility] [employer] [facility] Work Phone: Potassium [Moles/Vol] 4.0 mmol/L 3.5 - 5.3 - [facility] Work Phone: Protein [Mass/Vol] 6.8 g/dL 6.4 - 8.2 -[facility] [employer] [facility] Work Phone: Sodium [Moles/Vol] 141 mmol/L 136 - 145 [facility] [employer] [facility] Work Phone: Urea nitrogen [Mass/Vol] 14 mg/dL 6 - 23 [facility] Work Phone: Laboratory - Hematology and Cell countson 08-24-2021 Erythrocyte distribution width (RBC) [Ratio] 16.2 % above high threshold See Below [facility] Work Phone: [phone] Comment on above: Reference Range: 11. 5 - 14.5 Hematocrit (Bld) [Volume fraction] 40.9 % See Below [facility] Work Phone: [phone] Comment on above: Reference Range: 36. 0 - 46.0 Hemoglobin (Bld) [Mass/Vol] 13.3 g/dL See Below [facility] Work Phone: [phone] Comment on above: Reference Range: 12. 0 - 16.0 MCHC (RBC) [Mass/Vol] 32.7 g/dL See Below [facility] [employer] [facility] Work Phone: [phone] Comment on above: Reference Range: 32. 0 - 36.0 MCV (RBC) [Entitic vol] 95 fL 80 - 100 [facility] Work Phone: [phone] Platelets (Bld) [#/Vol] 148 10*3/uL below low threshold 150 - 450 [facility] Work Phone: [phone] RBC (Bld) [#/Vol] 4.28 {x10E12/L} See Below [facility] Work Phone: [phone] Comment on above: Reference Range: 4.0 0 - 5.20 WBC (Bld) [#/Vol] 5.0 10*3/uL 4.4 - 11.3 [facility] [employer] [facility] Work Phone: No Panel Informationon 08-24 >60 >60 [facility] Work Phone: Comment on above: CALCULATIONS OF JAI MATED GFR ARE PERFORMED USING THE MDRD STUDY EQUATION FOR THE IDMS-TRACEABLE CREATININE METHODS. CLIN CHEM 2007;53:766-72 Falls Risk Screeningon 08-07 Fall risk assessment a) No falls within the last year [facility] Work Phone: Tobacco use status [facility] b) No [employer] [facility] Work Phone: OH ORT LARGE JOINT ARTHROCEN TESISon 06-25-2021 Christine Voss CNP 06/25/2021 12:25 PM LG Jt Injection/Arthrocentesis : L greater trochanteric bursa Performed by: Christine Voss CNP Authorized by: Christine Voss CNP CPT 89397 - Large Joint Arthrocentesis: Consent given by: Patient Time out: Immediately prior to the procedure a time out was called Physician or proceduralist has discussed critical or nonroutine steps, procedure duration and anticipated blood loss: Yes Supporting Documentation: Indications: Diagnostic evaluation and pain Procedure Details: Location: Hip Site: L greater trochanteric bursa Prep: patient was prepped and draped in usual sterile fashion Needle size: 22 G Approach: Lateral Medications: 40 mg triamcinolone acetonide 40 mg/mL Anesthetic used: Lidocaine 1% Anesthetic amount (mL): 2 Patient tolerance: Patient tolerated the procedure well with no immediate complications [facility] Tobacco Screening.on 021 Fall risk assessment a) No falls within the last year [employer] [facility] Work Phone: Tobacco use status [facility] b) No [employer] [facility] Work Phone: Laboratory - Chemistry and C hemistry - challengeon 05-01-2021 Albumin BCP dye [Mass/Vol] 3.7 g/dL 3.4 - 5.0 [employer] [facility] Work Phone: [phone] ALP [Catalytic activity/Vol] 124 U/L 33 - 136 [employer] [facility] Work Phone: [phone] ALT With P-5'-P [Catalytic activity/Vol] 19 U/L 7 - 45 [employer] [facility] Work Phone: Comment on above: Patients treated wit h Sulfasalazine may generate falsely decreased results for ALT. Anion gap [Moles/Vol] 11 mmol/L 10 - 20 [employer] [facility] Work Phone: [phone] AST With P-5'-P [Catalytic activity/Vol] 50 U/L above high threshold 9 - 39 -[facility] Work Phone: [phone] Bilirubin [Mass/Vol] 0.8 mg/dL 0.0 - 1.2 [facility] Work Phone: [phone] Calcium [Mass/Vol] 8.7 mg/dL 8.6 - 10.3 -[facility] Work Phone: [phone] Chloride [Moles/Vol] 105 mmol/L 98 - 107 [facility] Work Phone: [phone] CO2 [Moles/Vol] 29 mmol/L 21 - 32 [facility] Work Phone: [phone] Creatinine [Mass/Vol] 0.60 mg/dL See Below [facility] Work Phone: [phone] Comment on above: Reference Range: 0.5 0 - 1.05 Glucose [Mass/Vol] 80 mg/dL 74 - 99 -[facility] Work Phone: [phone] Potassium [Moles/Vol] 3.9 mmol/L 3.5 - 5.3 - [facility] Work Phone: [phone] Protein [Mass/Vol] 6.7 g/dL 6.4 - 8.2 -[facility] Work Phone: [phone] Sodium [Moles/Vol] 141 mmol/L 136 - 145 [facility] Work Phone: Urea nitrogen [Mass/Vol] 18 mg/dL 6 - 23 [facility] Work Phone: [phone] Laboratory - Hematology and Cell countson 05-01-2021 Erythrocyte distribution width (RBC) [Ratio] 15.1 % above high threshold See Below [facility] Work Phone: [phone] Comment on above: Reference Range: 11. 5 - 14.5 Hematocrit (Bld) [Volume fraction] 39.5 % See Below -[facility] Work Phone: [phone] Comment on above: Reference Range: 36. 0 - 46.0 Hemoglobin (Bld) [Mass/Vol] 13.0 g/dL See Below [facility] Work Phone: [phone] Comment on above: Reference Range: 12. 0 - 16.0 MCHC (RBC) [Mass/Vol] 33.0 g/dL See Below [facility] [employer] [facility] Work Phone: [phone] Comment on above: Reference Range: 32. 0 - 36.0 MCV (RBC) [Entitic vol] 96 fL 80 - 100 [facility] Work Phone: [phone] Platelets (Bld) [#/Vol] 143 10*3/uL below low threshold 150 - 450 [facility] Work Phone: [phone] RBC (Bld) [#/Vol] 4.12 {x10E12/L} See Below [facility] Work Phone: [phone] Comment on above: Reference Range: 4.0 0 - 5.20 WBC (Bld) [#/Vol] 4.9 10*3/uL 4.4 - 11.3 [facility] Work Phone: Lipid Panelon 05-01-2021 Cholesterol [Mass/Vol] 114 mg/dL 0 - 199 [facility] Work Phone: [phone] Comment on above: . AGE DESIRABLE BORD KATHY HIGH HIGH 0-19 Y 0 - 169 170 - 199 >/= 200 20-24 Y 0 - 189 190 - 224 >/= 225 >24 Y 0 - 199 200 - 239 >/= 240 All ranges are based on fasting samples. Specific therapeutic targets will vary based on patient-specific cardiac risk.. Pediatric guidelines reference:Pediatrics 2011, 128(S5). Adult guidelines reference: NCEP ATPIII Guidelines, DOMINGO 2001, 258:2486-97. Venipuncture immediately after or during the administration of Metamizole may lead to falsely low results. Testing should be performed immediately prior to Metamizole dosing. Cholesterol in HDL [Mass/Vol] 54.0 mg/dL [employer] [facility] Work Phone: [phone] Comment on above: . AGE VERY LOW LOW N ORMAL HIGH 0-19 Y < 35 < 40 40-45 ---- 20-24 Y ---- < 40 >45 ---- >24 Y ---- < 40 40-60 >60. Cholesterol in LDL [Mass/Vol] 45 mg/dL 0 - 99 [employer] [facility] Work Phone: Comment on above: . NEAR BORD AGE JASSON RABLE OPTIMAL HIGH HIGH VERY HIGH 0-19 Y 0 - 109 --- 110-129 >/= 130 ---- 20-24 Y 0 - 119 --- 120-159 >/= 160 ---- >24 Y 0 - 99 100-129 130-159 160-189 >/=190. Cholesterol.total/Chol esterol in HDL [Mass ratio] 2.1 {ratio} [employer] [facility] Work Phone: [phone] Comment on above: REF VALUESDESIRABLE < 3.4HIGH RISK > 5.0 Triglyceride [Mass/Vol] 76 mg/dL 0 - 149 [facility] Work Phone: Comment on above: . AGE DESIRABLE BORD KATHY HIGH HIGH VERY HIGH 0 D-90 D 19 - 174 ---- ---- ----91 D- 9 Y 0 - 74 75 - 99 >/= 100 ---- 10-19 Y 0 - 89 90 - 129 >/= 130 ---- 20-24 Y 0 - 114 115 - 149 >/= 150 ---- >24 Y 0 - 149 150 - 199 200- 499 >/= 500. Venipuncture immediately after or during the administration of Metamizole may lead to falsely low results. Testing should be performed immediately prior to Metamizole dosing. Lipid Panel 15 mg/dL 0 - 40 [facility] Work Phone: No Panel Informationon 05-01 >60 >60 [employer] Work Phone: Comment on above: CALCULATIONS OF JAI MATED GFR ARE PERFORMED USING THE MDRD STUDY EQUATION FOR THE IDMS-TRACEABLE CREATININE METHODS. CLIN CHEM 2007;53:766-72 TSH - Thyroid Stimulating Ho Mehrdad adams 05-01-2021 TSH Qn 3.99 m[IU]/L above high threshold See Below [facility] Work Phone: Comment on above: Reference Range: 0.4 4 - 3.98 TSH testing is performed using different testing methodology at [facility] than at other [facility] hospitals. Direct result comparisons should only be made within the same method. [place] ORT LARGE JOINT ARTHROCEN TESISOrdered By: Christine Voss on 02-25-2021 Christine Voss CNP 02/25/2021 4:36 PM LG Jt Injection/Arthrocentesis : L glenohumeral Performed by: Christine Voss CNP Authorized by: Christine Voss CNP CPT 21304 - Large Joint Arthrocentesis: Consent given by: Patient Time out: Immediately prior to the procedure a time out was called Physician or proceduralist has discussed critical or nonroutine steps, procedure duration and anticipated blood loss: Yes Supporting Documentation: Indications: Pain and diagnostic evaluation Procedure Details: Location: Shoulder Site: L glenohumeral Prep: patient was prepped and draped in usual sterile fashion Needle size: 22 G Approach: Posterior Medications: 40 mg triamcinolone acetonide 40 mg/mL Anesthetic used: Lidocaine 1% Anesthetic amount (mL): 2 Patient tolerance: Patient tolerated the procedure well with no immediate complications [facility] Other 11-19-2020 Atrial Rate [facility] P [place] [facility] P-R Interval [facility] Q-T Interval [facility] Q-T Interval (corrected) [facility] QRS Duration [facility] QTC Calculation (Bezet) [facility] R [place] [facility] T [place] [facility] Ventricular Rate [facility] Mamm - Screening Mammogram w / Tomosynthesison 10-09-2020 MG Breast screening Interpreted by: DENIZ TORO10/09/20 09:47MRN: [id number] Name: ALMA ECHEVERRIA STUDY:Digital mammography screening with danielle; 10/09/2020 8:20 am ORDERING CLINICIAN:SANCHO WOODRUFF INDICATION:Screening. COMPARISON:Comparison is made to prior digital mammograms dated 09/28/2018 FINDINGS:CC and MLO 2D digital mammograms and digital breast tomosynthesisimages were obtained of the bilateral breasts. 3-D volume imageswere reconstructed in 4 views at an independent workstation as 1 mmslices through the breasts in both the CC and MLO projections. The breast tissue is almost entirely fatty. Well-definedintramammary lymph nodes are seen in the lateral aspect of the leftbreast, similar to prior studies. No new or enlarging mass or focalasymmetry is identified. No suspicious microcalcifications or fociof architectural distortion are seen. There has been no significantchange. This study was interpreted with CAD. IMPRESSION:No mammographic evidence of malignancy. BI-RADS CATEGORY: Category: 2 - Benign.Recommendation: 1 Year Screening.Electronically signed by: DENIZ TORO 10/09/20 09:47 Normal [place] [id number] Work Phone: [facility] 10-09-2020 Interpreted by: DENIZ TORO10/09/20 10:26MRN: [id number] Name: ALMA ECHEVERRIA STUDY:BONE DENSITY, DEXA 1 OR MORE SITES: AXIAL SKELETN; 10/09/2020 8:23 am INDICATION:none Asymptomatic menopausal state. Evaluate forosteopenia/osteoporos is, ORDERING CLINICIAN:SANCHO WOODRUFF FINDINGS:Standard measurements were obtained utilizing an [employer] Energy X-rayAbsorptiometry bone densitometer. Data obtained includes planar bonedensity measurements over the left hip and lumbar spine. Comparisonof measured data and standardized mean data for a young adultpopulation (when peak bone mass occurs) results in a T score. Thisrepresents the number of standard deviations above or below the meanof a young adult population. Comparison of measured data tostandards from an age-adjusted population similarly yields a Z score. Left femoral neck Bone density: 0.738 g/cm2 T score: -1.0 Z Score: 1.2 Lumbar Spine (L1-4) Bone density: 1.052 g/cm2 T Score: 0.0 Z Score: 2.7 World Health Organization (WHO) criteria defines normal bone densityas that which is less than 1 standard deviation below the mean of ayoung adult population. Osteopenia is defined as a measured bonedensity that is between 1 and 2.5 standard deviations below the meanof a young adult population. Osteoporosis is defined as a measuredbone density that is greater than or equal to 2.5 standard deviationsbelow the mean of a young adult population. IMPRESSION:According to World Health Organization criteria, bone mineral densityof the left femoral neck and lumbar spine is within the limits ofnormal. Left total hip bone mineral density has decreased 8.5 % when comparedto the prior study of 10/09/2015. Lumbar spine bone mineral densityhas decreased 2.8 % when compared to the prior study. Electronically signed by: DENIZ TORO 10/09/20 10:26 Normal [facility] [place] [place] [id number] Work Phone: [place] ORT LARGE JOINT ARTHROCEN [facility] 05-22-2020 Christine Voss CNP 05/22/2020 5:23 PM LG Jt Injection/Arthrocentesis : L glenohumeral Performed by: Christine Voss CNP Authorized by: Christine Voss CNP CPT 52816 - Large Joint Arthrocentesis: Consent given by: Patient Time out: Immediately prior to the procedure a time out was called Physician or proceduralist has discussed critical or nonroutine steps, procedure duration and anticipated blood loss: Yes Supporting Documentation: Indications: Pain and diagnostic evaluation Procedure Details: Location: Shoulder Site: L glenohumeral Prep: patient was prepped and draped in usual sterile fashion Needle size: 22 G Approach: Posterior Medications: 40 mg triamcinolone acetonide 40 mg/mL Anesthetic used: Lidocaine 1% Anesthetic amount (mL): 2 Patient tolerance: Patient tolerated the procedure well with no immediate complications [facility] [place] ORT LARGE JOINT ARTHROCEN [facility] 02-22-2020 Christine Voss CNP 02/22/2020 10:10 AM LG Jt Injection/Arthrocentesis : L glenohumeral Performed by: Christine Voss CNP Authorized by: Christine Voss CNP CPT 93584 - Large Joint Arthrocentesis: Consent given by: Patient Time out: Immediately prior to the procedure a time out was called Physician or proceduralist has discussed critical or nonroutine steps, procedure duration and anticipated blood loss: Yes Supporting Documentation: Indications: Pain and diagnostic evaluation Procedure Details: Location: Shoulder Site: L glenohumeral Prep: patient was prepped and draped in usual sterile fashion Needle size: 22 G Approach: Posterior Medications: 40 mg triamcinolone acetonide 40 mg/mL Anesthetic used: Lidocaine 1% Anesthetic amount (mL): 2 Patient tolerance: Patient tolerated the procedure well with no immediate complications [facility] CCTA Heart (Clinical Quality Assurance Specialist yaritza rizzo)on 02-12-2020 1. Total calcium sco re: 332 places patient in the 76th percentile for age, gender and race matched control subjects who are free from diabetes. 2. Non obstructive CAD identified by Coronary CT Angiography. 1-24% calcific disease in the proximal LAD and 25-49% stenosis in the mid RCA. 3. Mild atherosclerosis noted in the portion of the thoracic aorta visualized. CAD RADS (score): 2 RECOMMENDATIONS: CAD-RADS 2: (25-49% mild stenosis). Consider non-atherosclerotic causes of chest pain. Consider preventive therapy and risk factor modification, particularly for patients with non-obstructive plaque in multiple segments. [facility] Coronary Computed Angiography Report CPT code: 86980 Requesting Physician: Keagan Borges Interpreting Clinical Quality Assurance Specialist: Chante Oliva MD Primary Care Physician: Sancho Woodruff Clinical Indication: abnormal SPECT for pre op assessment Gender: female Race/Ethnicity: White Cardiovascular risk factors: Hypertension, Hyperlipidemia and Family history of CV disease Prior Imaging: SPECT Procedure: Computed tomographic angiography with contrast, including 3D image post-processing (including evaluation of cardiac structures and morphology, assessment of cardiac function and evaluation of venous structures, if performed) BMI: 33 kg/msq HR: 43 bpm Acquisition mode: Prospective, ECG triggered Complications: None Image Quality: Good, No significant artifacts. Scanner: [employer] Revolution DLP: 340.41 mGy 72cc Isovue-370. 0.4mg SL nitroglycerin administered prior to scan. Radiation dose reduction was achieved by using automated exposure control and or adjustments of mA and/or kV according to patient size and/or use of iterative reconstruction techniques. Coronary Calcium / Agatston scoring: LM: 0 RCA: 57 LAD: 214 LCX: 61 Total: 332 Percentile age/gender cohort: 76th percentile for age, gender and race/ethnicity-matched group per [employer]ATE database. Coronary Angiography: Left Main: The left main is a large vessel with a normal take off from the left coronary cusp that trifurcates. There is no plaque or stenosis. Left anterior descending artery: The LAD is patent. The proximal LAD has non obstructive calcific CAD identified (1-24% stenosis). The mid and distal LAD with isolated non calcific plaque noted. The LAD gives off 2 small diagonal branches that are patent. Ramus intermedius: There is a small ramus branch patent that is widely patent. Left circumflex artery: The LCx is non dominant . The proximal and mid LCx with non obstructive vessel wall calcification. The distal LCx with plaque disease and is a small diameter vessel. The LCx gives off one large obtuse marginal branch that is widely patent. Right coronary artery: The RCA is dominant . There is mild vessel wall calcification noted in the proximal RCA. The mid RCA has a 25-49% calcific stenosis noted. The RCA terminates as a PDA and right posteriorlateral branch without evidence of plaque or stenosis. Cardiac Morphology: Left atrium: Left atrial size is Enlarged Left Ventricle: The ventricular cavity size is within normal limits. There is no abnormal filling defects. Pulmonary Veins: Normal pulmonary venous drainage. Pericardium: Normal thickness with no significant effusion or calcification present. Cardiac valves: Trileaflet aortic valve with mild aortic annular calcification. Aorta: Normal caliber of the portion of the thoracic aorta imaged. Mild vessel wall calcification noted in the proximal portion of the descending aorta as well as the arch. PLEASE SEE SEPARATE RADIOLOGY REPORT FOR THE NONCARDIAC FINDINGS [facility] CT CCTA HEART WITH AND WITHO UT CONTRASTon 02-12-2020 Moderate vertebral b norma compression fracture at the thoracolumbar junction (likely T12) with at least 50% height loss. New from 03/15/2017 but favored to be chronic. Mildly prominent mediastinal and hilar lymph nodes. Favored to be reactive. Please refer to auctioneer art report for dedicated CT calcium scoring and cardiac CTA findings. ST/klb Workstation ID: [id number] [facility] EXAMINATION: CT CCTA HEART WITH AND WITHOUT CONTRAST HISTORY: ORDERING SYSTEM PROVIDED HISTORY: Atrial fibrillation, new, assess for CAD, TECHNOLOGIST PROVIDED HISTORY: Illness/Other Reason for exam: Atrial fibrillation, new, assess for CAD, supplemental read Encounter Type: Ongoing Additional signs and symptoms: ORDERING SYSTEM PROVIDED DIAGNOSIS CODES: I48.91 Atrial fibrillation, unspecified type (HCC) COMPARISON: None TECHNIQUE: CT imaging from the base of the heart to the apex before and after the administration of intravenous contrast. CT calcium score and CTA coronary protocol was utilized. Clinical Quality Assurance Specialist will interpret the CT calcium score and CTA coronary portion of the examination. Radiologist will interpret the extracardiac portion of the examination. Dose reduction techniques were achieved by using automated exposure control and/or adjustment of mA and/or kV according to patient size and/or use of iterative reconstruction technique. CONTRAST: IOPAMIDOL 76 % INTRAVENOUS SOLUTION - 72 mL, FINDINGS: MEDIASTINUM: Visualized airways are patent. Heart is normal in size. Scattered arterial calcifications. Visualized thoracic aorta is normal in caliber. Aortic arch is not completely included on imaging [id number]. Descending thoracic aorta is tortuous. Mild atherosclerotic calcification of the descending thoracic aorta. No aortic dissection. Main pulmonary arterial trunk is prominent in caliber measuring 3.6 cm in transverse dimension. No central or large pulmonary embolus. A few nonspecific mildly prominent mediastinal lymph nodes (short axis): 0.7 cm prevascular, 0.9 cm subcarinal, 0.8 cm right lower paratracheal, 0.7 cm right mid paratracheal. Prominent hilar lymph nodes measuring up to 0.9 x 0.7 cm on the right and 0.9 x 0.8 cm on the left. PLEURAL CAVITY: No pleural effusion. LUNGS: Mild scattered dependent atelectasis. No focal airspace consolidation. VISUALIZED UPPER ABDOMEN:: No acute findings. BONES: Osteopenia. Multilevel degenerative changes of the thoracic spine. Vertebral body compression fracture at the thoracolumbar junction with at least 50% height loss. Mild retropulsion. Multilevel chronic deformities of the mid lateral ribs on the left. Right reverse shoulder replacement visualized on spot welder radiograph. [facility], Rad In Fu ji Speechq - 02/12/2020 8:40 PM EDT EXAMINATION: CT CCTA HEART WITH AND WITHOUT CONTRAST HISTORY: ORDERING SYSTEM PROVIDED HISTORY: Atrial fibrillation, new, assess for CAD, TECHNOLOGIST PROVIDED HISTORY: Illness/Other Reason for exam: Atrial fibrillation, new, assess for CAD, supplemental read Encounter Type: Ongoing Additional signs and symptoms: ORDERING SYSTEM PROVIDED DIAGNOSIS CODES: I48.91 Atrial fibrillation, unspecified type (HCC) COMPARISON: None TECHNIQUE: CT imaging from the base of the heart to the apex before and after the administration of intravenous contrast. CT calcium score and CTA coronary protocol was utilized. Clinical Quality Assurance Specialist will interpret the CT calcium score and CTA coronary portion of the examination. Radiologist will interpret the extracardiac portion of the examination. Dose reduction techniques were achieved by using automated exposure control and/or adjustment of mA and/or kV according to patient size and/or use of iterative reconstruction technique. CONTRAST: IOPAMIDOL 76 % INTRAVENOUS SOLUTION - 72 mL, FINDINGS: MEDIASTINUM: Visualized airways are patent. Heart is normal in size. Scattered arterial calcifications. Visualized thoracic aorta is normal in caliber. Aortic arch is not completely included on imaging [id number]. Descending thoracic aorta is tortuous. Mild atherosclerotic calcification of the descending thoracic aorta. No aortic dissection. Main pulmonary arterial trunk is prominent in caliber measuring 3.6 cm in transverse dimension. No central or large pulmonary embolus. A few nonspecific mildly prominent mediastinal lymph nodes (short axis): 0.7 cm prevascular, 0.9 cm subcarinal, 0.8 cm right lower paratracheal, 0.7 cm right mid paratracheal. Prominent hilar lymph nodes measuring up to 0.9 x 0.7 cm on the right and 0.9 x 0.8 cm on the left. PLEURAL CAVITY: No pleural effusion. LUNGS: Mild scattered dependent atelectasis. No focal airspace consolidation. VISUALIZED UPPER ABDOMEN:: No acute findings. BONES: Osteopenia. Multilevel degenerative changes of the thoracic spine. Vertebral body compression fracture at the thoracolumbar junction with at least 50% height loss. Mild retropulsion. Multilevel chronic deformities of the mid lateral ribs on the left. Right reverse shoulder replacement visualized on spot welder radiograph. IMPRESSION: Moderate vertebral body compression fracture at the thoracolumbar junction (likely T12) with at least 50% height loss. New from 03/15/2017 but favored to be chronic. Mildly prominent mediastinal and hilar lymph nodes. Favored to be reactive. Please refer to auctioneer art report for dedicated CT calcium scoring and cardiac CTA findings. ST/klb Workstation ID: [id number] [facility] POC Creatinineon 02-12-2020 Creatinine [Mass/Vol] 0.6 mg/dL 0.6 - 1.2 mg/dL [facility] Interpretation and review of laboratory results Normal [facility] Basic Metabolic Panelon 11-11 Anion gap [Moles/Vol] 11 mmol/L 10 - 2 0 mmol/L [facility] Calcium [Mass/Vol] 8.9 mg/dL 8.4 - 10. 2 mg/dL [facility] Chloride [Moles/Vol] 103 mmol/L 98 - 10 8 mmol/L [facility] Creatinine [Mass/Vol] 0.61 mg/dL 0.60 - 1.20 [facility] GFR/1.73 sq M predicted among non-blacks MDRD (S/P/Bld) [Vol rate/Area] The eGFR should be used for monitoring renal function only and not for medication dosing. [facility] GFR/1.73 sq M.predicted CKD-EPI (S/P/Bld) [Vol rate/Area] 88 >=60 mL/min/1.73 m2 [facility] Glucose [Mass/Vol] 134 mg/dL High 65 - 99 mg/dL [facility] HCO3 [Moles/Vol] 25 mmol/L 21 - 32 mmol/L [facility] Interpretation and review of laboratory results Abnormal [facility] Potassium [Moles/Vol] 4.2 mmol/L 3.5 - 5.1 mmol/L [facility] Sodium [Moles/Vol] 135 mmol/L 135 - 145 mmol/L [facility] Urea nitrogen [Mass/Vol] 11 mg/dL 8 - 25 mg/dL [facility] Urea nitrogen/Creatinine [Mass ratio] 18.0 mg/mg [facility] Hemoglobin and Hematocriton 11-30-2019 Hematocrit (Bld) [Volume fraction] 38.5 % 36 - 46 % [facility] Hemoglobin (Bld) [Mass/Vol] 12.9 g/dL 12 - 16 g/dL [facility] Interpretation and review of laboratory results Normal [facility] XR OR Shoulder Right 2+ View son 11-30-2019 EXAMINATION: XR OR SHOULDER RIGHT 2+ VIEWS HISTORY: ORDERING SYSTEM PROVIDED HISTORY: right shoulder replacement, TECHNOLOGIST PROVIDED HISTORY: Illness/Other Reason for exam: right total reverse shoulder in OR Encounter Type: Initial Additional signs and symptoms: . Fluoro dose in mGy: 3.54 ORDERING SYSTEM PROVIDED DIAGNOSIS CODES: M67.911 Rotator cuff disorder, right COMPARISON: Right shoulder radiographs dated 03/19/2019. TECHNIQUE: Fluoro Dose Ka,r mGy: Fluoro dose in Ka,r mGy: 3.54 5 intraoperative fluoroscopic still frame images were submitted. FINDINGS: Images demonstrate placement of a right reverse total shoulder arthroplasty. Hardware appears intact without complication on this limited assessment. [facility] Interface, Rad In Fu ji Speechq - 11/30/2019 8:06 AM EST EXAMINATION: XR OR SHOULDER RIGHT 2+ VIEWS HISTORY: ORDERING SYSTEM PROVIDED HISTORY: right shoulder replacement, TECHNOLOGIST PROVIDED HISTORY: Illness/Other Reason for exam: right total reverse shoulder in OR Encounter Type: Initial Additional signs and symptoms: . Fluoro dose in mGy: 3.54 ORDERING SYSTEM PROVIDED DIAGNOSIS CODES: M67.911 Rotator cuff disorder, right COMPARISON: Right shoulder radiographs dated 03/19/2019. TECHNIQUE: Fluoro Dose Ka,r mGy: Fluoro dose in Ka,r mGy: 3.54 5 intraoperative fluoroscopic still frame images were submitted. FINDINGS: Images demonstrate placement of a right reverse total shoulder arthroplasty. Hardware appears intact without complication on this limited assessment. IMPRESSION: Reverse right total shoulder arthroplasty, please see operative report regarding further procedural details. Workstation ID: [id number] Reverse right total shoulder arthroplasty, please see operative report regarding further procedural details. [id number] Nuclear Report Patient: [place] Boothe Med Rec#: [id number] (Age): 1940(78y) Height: Study Date: 11/20/2019 Weight: Room#: BSA: Type: Outpatient Loc: Sex: F Indications: -Pre-op Cardiovascular Exam - Checklists: -Patient verbally identified self -Patient consent obtained in lab -Procedure verified and explained to patient -Medication Reconciliation completed. -Discharge instructions given Nuclear Cardiology Conclusion: Probably normal with Tc-99m tetrofosmin imaging. Normal LV size. Global left ventricular systolic function was normal, with an EF of 90%. In addition, there was normal wall motion. There was a small, completely reversible, mid to basal- anterior defect associated with normal wall motion. This defect was consistent with Ischemia or breast attenuation. Conclusions : Probably normal with Tc-99m tetrofosmin imaging.Limitations and artifact were due to breast tissue.Global left ventricular systolic function was normal, with an EF of 90%.There was a small, completely reversible, mid to basal- anterior defect associated with normal wall motion.This defect was consistent with Ischemia or breast attenuation. Baseline ECG: Normal sinus rhythm. Resting ECG sinus rhythm. Tolerated lexiscan well, denies CP with medication. Pharmacologic Protocol: - Regadenoson 0.4mg IV Bolus was given over 10-20 seconds. - Tolerated Medication Infusion. Hemodynamics REST STRESS RECOVERY SBP 149 mmHg 143 mmHg 137 mmHg DBP 94 mmHg 91 mmHg 88 mmHg HR 63 bpm 93 bpm 80 bpm %MPHR 65 % Imaging Protocol: This was a gated SPECT myocardial perfusion imaging study. For both rest and stress images patient had right arm down towards side of abdomen due to bad shoulder. Left arm was above head as normal for imaging. A one day rest-stress imaging protocol was followed using Tc-99m tetrofosmin ([employer]) injected intravenously. For the rest portion of the study, 9.39 mCi of the radiopharmaceutical was administered at 11/20/2019 08:15:00. Rest imaging was performed at 09:15:00. For the stress portion of the study, 27 mCi was administered at 11/20/2019 10:00:00. Stress imaging was performed at 11:00:00. Perfusion Interpretation: The left ventricular cavity size was normal under post stress conditions. The left ventricular cavity size was normal under rest conditions. TID Ratio 0.83. There was a small, reversible defect in the basal anterior, mid anterior segment(s). The extent of this perfusion defect was mild. Attenuation correction was applied to this study which normalized the defects in the previously noted segment(s). Wall Motion Interpretation: The patient's calculated post stress LVEF was 90%. The patient's end diastolic volume was 51ml. The patient's end systolic volume was 5ml. Gated imaging at both post-stress and rest conditions demonstrated normal wall motion. Study Limitations: The overall quality of the study is adequate. There was no lung uptake of the radiopharmaceutical. Limitations and artifact were due to breast tissue. Nuclear Doctor Interpreted Study and Electronically signed at 11/20/2019 12:29:57 by: Haroon Quintanilla MD [facility], Rad In Heartlab Xper Echopacs - 11/20/2019 12:31 PM EST Nuclear Report Patient: [place] Boothe Med Rec#: [id number] (Age): 1940(78y) Height: Study Date: 11/20/2019 Weight: Room#: BSA: Type: Outpatient Loc: Sex: F Indications: -Pre-op Cardiovascular Exam - Checklists: -Patient verbally identified self -Patient consent obtained in lab -Procedure verified and explained to patient -Medication Reconciliation completed. -Discharge instructions given Nuclear Cardiology Conclusion: Probably normal with Tc-99m tetrofosmin imaging. Normal LV size. Global left ventricular systolic function was normal, with an EF of 90%. In addition, there was normal wall motion. There was a small, completely reversible, mid to basal- anterior defect associated with normal wall motion. This defect was consistent with Ischemia or breast attenuation. Conclusions : Probably normal with Tc-99m tetrofosmin imaging.Limitations and artifact were due to breast tissue.Global left ventricular systolic function was normal, with an EF of 90%.There was a small, completely reversible, mid to basal- anterior defect associated with normal wall motion.This defect was consistent with Ischemia or breast attenuation. Baseline ECG: Normal sinus rhythm. Resting ECG sinus rhythm. Tolerated lexiscan well, denies CP with medication. Pharmacologic Protocol: - Regadenoson 0.4mg IV Bolus was given over 10-20 seconds. - Tolerated Medication Infusion. Hemodynamics REST STRESS RECOVERY SBP 149 mmHg 143 mmHg 137 mmHg DBP 94 mmHg 91 mmHg 88 mmHg HR 63 bpm 93 bpm 80 bpm %MPHR 65 % Imaging Protocol: This was a gated SPECT myocardial perfusion imaging study. For both rest and stress images patient had right arm down towards side of abdomen due to bad shoulder. Left arm was above head as normal for imaging. A one day rest-stress imaging protocol was followed using Tc-99m tetrofosmin (Puuiloview) injected intravenously. For the rest portion of the study, 9.39 mCi of the radiopharmaceutical was administered at 11/20/2019 08:15:00. Rest imaging was performed at 09:15:00. For the stress portion of the study, 27 mCi was administered at 11/20/2019 10:00:00. Stress imaging was performed at 11:00:00. Perfusion Interpretation: The left ventricular cavity size was normal under post stress conditions. The left ventricular cavity size was normal under rest conditions. TID Ratio 0.83. There was a small, reversible defect in the basal anterior, mid anterior segment(s). The extent of this perfusion defect was mild. Attenuation correction was applied to this study which normalized the defects in the previously noted segment(s). Wall Motion Interpretation: The patient's calculated post stress LVEF was 90%. The patient's end diastolic volume was 51ml. The patient's end systolic volume was 5ml. Gated imaging at both post-stress and rest conditions demonstrated normal wall motion. Study Limitations: The overall quality of the study is adequate. There was no lung uptake of the radiopharmaceutical. Limitations and artifact were due to breast tissue. Nuclear Doctor Interpreted Study and Electronically signed at 11/20/2019 12:29:57 by: Haroon Quintanilla MD [facility] MRSA Cultureon 11-08-2019 Interpretation and review of laboratory results Normal [facility] MRSA isol Org specific cx Ql (Unsp spec) Negative [facility] ECG 12-LEADon 11-07-2019 Atrial Rate 81 BPM [facility] P [place] 48 degrees [facility] P-R Interval 188 ms [facility] Q-T Interval 390 ms [facility] QRS Duration 70 ms [facility] QTC Calculation (Bezet) 453 ms [facility] R [place] 40 degrees [facility] T [place] 60 degrees [facility] Ventricular Rate 81 BPM [facility] Sinus rhythm with Premature atrial complexes with Aberrant conduction Otherwise normal ECG Confirmed by Bria Francisco MD ([id number]) on 11/07/2019 8:01:48 AM [facility] Basic metabolic panelon 10-11 Anion gap [Moles/Vol] 12 mmol/L 10 - 2 0 mmol/L [facility] Calcium [Mass/Vol] 9.1 mg/dL 8.4 - 10. 2 mg/dL [facility] Chloride [Moles/Vol] 104 mmol/L 98 - 10 8 mmol/L [facility] Creatinine [Mass/Vol] 0.66 mg/dL 0.6 - 1.2 mg/dL [facility] GFR/1.73 sq M predicted among non-blacks MDRD (S/P/Bld) [Vol rate/Area] The eGFR should be used for monitoring renal function only and not for medication dosing. [facility] GFR/1.73 sq M.predicted CKD-EPI (S/P/Bld) [Vol rate/Area] 85 >=60 mL/min/1.73 m2 [facility] Glucose [Mass/Vol] 83 mg/dL 65 - 99 mg/dL [facility] HCO3 [Moles/Vol] 27 mmol/L 21 - 32 mmol/L [facility] Interpretation and review of laboratory results Normal [facility] Potassium [Moles/Vol] 3.7 mmol/L 3.5 - 5.1 mmol/L [facility] Sodium [Moles/Vol] 139 mmol/L 135 - 145 mmol/L [facility] Urea nitrogen [Mass/Vol] 13 mg/dL 8 - 25 mg/dL [facility] Urea nitrogen/Creatinine [Mass ratio] 19.7 mg/mg [facility] CBC WITH AUTO DIFFERENTIALon 11-06-2019 Basophils (Bld) [#/Vol] 0.05 10*3/uL [facility] Basophils/100 WBC (Bld) 0.6 % [facility] Eosinophils (Bld) [#/Vol] 0.07 10*3/uL [facility] Eosinophils/100 WBC (Bld) 0.9 % [facility] Erythrocyte distribution width (RBC) [Entitic vol] 13.3 % 11.6 - 14.8 % [facility] Hematocrit (Bld) [Volume fraction] 42.9 % 36 - 46 % [facility] Hemoglobin (Bld) [Mass/Vol] 13.7 g/dL 12 - 16 g/dL [facility] Immature granulocytes (Bld) [#/Vol] 0.02 10*3/uL [facility] Immature granulocytes/100 WBC (Bld) 0.20 % [facility] Comment on above: The IG parameter is the percentage of metamyelocytes, myelocytes, and promyelocytes. Lymphocytes (Bld) [#/Vol] 2.39 10*3/uL [facility] Lymphocytes/100 WBC (Bld) 29.4 % [facility] MCH (RBC) [Entitic mass] 30.8 pg 26 - 34 pg [facility] MCHC (RBC) [Mass/Vol] 31.9 g/dL 31 - 37 g/dL [facility] MCV (RBC) [Entitic vol] 96.4 fL 80 - 100 fL [facility] Monocytes (Bld) [#/Vol] 0.74 10*3/uL [facility] Monocytes/100 WBC (Bld) 9.1 % [facility] Neutrophils (Bld) [#/Vol] 4.85 10*3/uL [facility] Neutrophils/100 WBC (Bld) 59.8 % [facility] Nucleated RBC (Bld) [#/Vol] 0.00 10*3/uL [facility] Nucleated RBC/100 WBC (Bld) [Ratio] 0.0 % [facility] Platelet mean volume (Bld) [Entitic vol] 12.0 fL 9 - 15.5 fL [facility] Platelets (Bld) [#/Vol] 194 10*3/uL [facility] RBC (Bld) [#/Vol] 4.45 10*6/uL [facility] WBC (Bld) [#/Vol] 8.12 10*3/uL [facility] Mammography Screening [facility] 10-08-2019 No mammographic evid ence of malignancy. BIRADS: BIRADS - CATEGORY 2 Benign, no evidence of malignancy. Normal interval follow-up is recommended in 12 months. OVERALL ASSESSMENT - BENIGN A letter of notification will be sent to the patient regarding the results. [facility], along with the [employer], the [employer], and [facility], recommend annual screening mammograms for women age 40 and older. Workstation ID: [id number] [facility] EXAMINATION: DIGITAL BILATERAL SCREENING MAMMOGRAM INDICATION: Yearly screening exam. COMPARISON: Mammograms dated 09/28/2018 and 07/21/2017 TECHNIQUE: Bilateral CC and MLO views. Computer-aided detection was utilized in the interpretation of this exam. FINDINGS: The breast tissue density is almost entirely fatty. No suspicious masses, asymmetries or calcifications identified. There are benign calcifications bilaterally. [facility] Otheron 09-25-2019 This order has been auto-finalized and does not contain a result. [facility] VLADISLAV Teston 05-09-2019 VLADISLAV Test Negative Normal Negative [facility] Comment on above: Performed By: #### 8 [id number] ####EVGENY [facility] Micro SubSection, CT Abdomen/Pelvis w/ Contras ton 04-04-2019 CT Abdomen/Pelvis w/ Contrast Exam Date/Time: 04/03/2019 13:44 EDT Reason for Exam: NAUSEA VOMITING;Nausea with vomiting Report STUDY: CT Abdomen/Pelvis w/ Contrast; 04/03/2019 1:44 pm INDICATION: Nausea with vomiting. COMPARISON: CT of the abdomen and pelvis dated 07/20/2016 ACCESSION NUMBER(S): [id number] ORDERING CLINICIAN: Oksana Ocampo TECHNIQUE: Contiguous axial images were obtained at 3mm slice thickness through the abdomen and pelvis following oral and intravenous contrast administration. Coronal and sagittal reconstructions at 3 mm slice thickness were performed. 132 ml of Omnipaque 350 were administered intravenously without immediate complication. FINDINGS: LOWER CHEST: Evaluation of the visualized lung bases demonstrate mild scarring and/or atelectasis at the lung bases bilaterally. The heart is within normal limits for size. ABDOMEN: LIVER: The liver is within normal limits for appearance, without evidence of focal masses. BILE DUCTS: No definite intra or extrahepatic biliary dilatation is identified. GALLBLADDER: The gallbladder is surgically absent ,with surgical clips seen in the gallbladder fossa. PANCREAS: The pancreas is within normal limits for appearance, without evidence of focal masses. SPLEEN: The spleen is within normal limits for size. No focal splenic mass is seen. ADRENAL GLANDS: No definite adrenal nodules or masses are seen bilaterally. KIDNEYS AND URETERS: Exam Date/Time: 04/03/2019 13:44 EDT Report There is no hydronephrosis, hydroureter or renal/ ureteral calculus identified bilaterally. No definite focal renal mass is seen. PELVIS: Evaluation through the lower pelvis is limited by streak artifact from the patient's right total hip arthroplasty hardware. BLADDER: The urinary bladder is grossly unremarkable for CT appearance. REPRODUCTIVE ORGANS: The patient is status post hysterectomy. BOWEL: The colon and small bowel are within normal limits for course, caliber and appearance, without evidence of wall thickening or obstruction. The appendix is not visualized. No CT evidence of acute diverticulitis or appendicitis is seen. VESSELS: Scattered atherosclerotic calcifications are seen throughout the infrarenal abdominal aorta and iliac arteries. The abdominal aorta is within normal limits for course, caliber and appearance, without evidence of aneurysm. PERITONEUM/RETROPERITONE UM/LYMPH NODES: There is no free intraperitoneal air or free fluid identified. No gross mesenteric or retroperitoneal lymphadenopathy is identified. BONE AND SOFT TISSUE: There is no evidence of acute fracture identified. No evidence of abdominal wall mass or hernia is identified. IMPRESSION: 1. Postoperative changes, as above. 2. No evidence of bowel obstruction, free intraperitoneal air or abnormal intra-abdominal fluid collection. FINAL REPORT Dictated: 04/04/2019 11:01 am Deniz Toro MD Signed (Electronic Signature): 04/04/2019 11:01 am Signed by: Deniz Toro MD Technologist: MLL Normal [facility] Amylaseon 04-02-2019 Amylase [Catalytic activity/Vol] 48 Int._Unit/L Normal 29-103 [facility] Comment on above: Performed By: #### 2 [id number] ####[facility] [address] [place] [address] CMPon 04-02-2019 Albumin [Mass/Vol] 3.8 g/dL Normal 3.4-5.0 [facility] Comment on above: Performed By: #### 2 [id number] ####[facility] [address] [place] [address] Albumin/Globulin [Mass ratio] 1.2 {ratio} Normal 1.1-1.9 [facility] Comment on above: Performed By: #### 2 [id number] ####EVGENY [address] [place] [address] Alk Phos 118 Int._Unit/L Normal 33-136 [facility] Comment on above: Performed By: #### 2 [id number] ####EVGENY [address] [place] [address] ALT [Catalytic activity/Vol] 18 Int._Unit/L Normal 7-45 [facility] Comment on above: Performed By: #### 2 [id number] ####[facility] [address] [place] [address] Anion gap [Moles/Vol] 10 mmol/L Normal 10-20 [facility] Comment on above: Performed By: #### 2 [id number] ####[facility] [address] [place] [address] AST [Catalytic activity/Vol] 41 Int._Unit/L High 9-39 [facility] Comment on above: Performed By: #### 2 [id number] ####[facility] [address] [place] [address] Bili Total 0.81 mg/dL Normal 0.00-1.20 [facility] Comment on above: Performed By: #### 2 065781 ####[facility] [address] [place] [address] Calcium [Mass/Vol] 9.2 mg/dL Normal 8.6-10.3 [facility] Comment on above: Performed By: #### 2 [id number] ####[facility] [address] [place] [address] Chloride [Moles/Vol] 104 mmol/L Normal 98-[address] [facility] Comment on above: Performed By: #### 2 247668 ####[facility] [address] [place] [address] CO2 [Moles/Vol] 29.0 mmol/L Normal 21.0-32.0 [facility] Comment on above: Performed By: #### 2 [id number] ####[facility] [address] [place] [address] Creatinine [Mass/Vol] 0.6 mg/dL Normal 0.5-1.1 [facility] Comment on above: Performed By: #### 2 416933 ####[facility] [address] [place] [address] Globulin (S) [Mass/Vol] 3.0 g/dL Normal 2.0-4.0 [facility] Comment on above: Performed By: #### 2 090604 ####[facility] [address] [place] [address] Glucose [Mass/Vol] 91 mg/dL Normal 70-99 [facility] Comment on above: Performed By: #### 2 805066 ####EVGENY [address] [place] [address] Potassium [Moles/Vol] 4.3 mmol/L Normal 3.5-5.3 [facility] Comment on above: Performed By: #### 2 807350 ####EVGENY [address] [place] [address] Protein [Mass/Vol] 7.0 g/dL Normal 6.4-8.2 [facility] Comment on above: Performed By: #### 2 356909 ####EVGENY [address] [place] [address] Sodium [Moles/Vol] 139 mmol/L Normal 136-145 [facility] Comment on above: Performed By: #### 2 324823 ####EVGENY [address] [place] [address] Urea nitrogen [Mass/Vol] 18 mg/dL Normal 6-23 [facility] Comment on above: Performed By: #### 2 082240 ####EVGENY [address] [place] [address] Urea nitrogen/Creatinine [Mass ratio] 30.0 ratio Normal 5.4-30.0 [facility] Comment on above: Performed By: #### 2 309236 ####EVGENY [address] [place] [address] Lipase Levelon 04-02-2019 Lipase Lvl 34 Int._Unit/L Normal 9-82 [facility] Comment on above: Performed By: #### 2 [id number] ####EVGENY [address] [place] [address] eGFRon 04-02-2019 GFR/1.73 sq M predicted among non-blacks MDRD (S/P/Bld) [Vol rate/Area] mL/min/{1.73_m2} Normal [facility] Comment on above: Order Comment: Order added by Discern Expert. Performed By: #### 1 [id number] ####EVGENY [address] [place] [address] Auto Diffon 03-13-2019 Basophils (Bld) [#/Vol] 0.0 E3/mcL Normal 0.0-0.2 [facility] Comment on above: Order Comment: Order Added by Discern Expert. Performed By: #### 2 689519 #### EVGENY [address] [place] [address] Basophils/100 WBC (Bld) 0.5 % Normal 0.0-2.0 [facility] Comment on above: Order Comment: Order Added by Discern Expert. Performed By: #### 2 [id number] #### EVGENY RemHemo [address] [place] [address] Eos Absolute 0.1 E3/mcL Normal 0.0-0.7 [facility] Comment on above: Order Comment: Order Added by Discern Expert. Performed By: #### 2 555968 #### EVGENY RemHemo [address] [place] [address] Eosinophils/100 WBC (Bld) 2.3 % Normal 0.0-11.0 [facility] Comment on above: Order Comment: Order Added by Ct Expert. Performed By: #### 2 484337 #### EVGENY RemHemo [address] [place] [address] Lymphocytes (Bld) [#/Vol] 2.1 E3/mcL Normal 1.2-3.4 [facility] Comment on above: Order Comment: Order Added by Ct Expert. Performed By: #### 2 779713 #### EVGENY RemHemo [address] [place] [address] Lymphocytes/100 WBC (Bld) 40.0 % Normal 20.0-55.0 [facility] Comment on above: Order Comment: Order Added by Ct Expert. Performed By: #### 2 920377 #### EVGENY [address] [place] [address] [place] Absolute 0.4 E3/mcL Normal 0.0-0.7 [facility] Comment on above: Order Comment: Order Added by Ct Expert. Performed By: #### 2 694992 #### EVGENY [address] [place] [address] Monocytes/100 WBC (Bld) 7.8 % Normal 0.0-10.0 [facility] Comment on above: Order Comment: Order Added by Discern Expert. Performed By: #### 2 704451 #### EVGENY [address] [place] [address] Neutro Absolute 2.5 E3/mcL Normal 1.4-6.5 [facility] Comment on above: Order Comment: Order Added by Discern Expert. Performed By: #### 2 714315 #### EVGENY [address] [place] [address] Neutro Auto 49.4 % Normal 37.0-75.0 [facility] Comment on above: Order Comment: Order Added by Discern Expert. Performed By: #### 2 662580 #### EVGENY FrederickHemo [facility] [place] [address] CBC w/ Auto Diffon 9 Erythrocyte distribution width (RBC) [Ratio] 16.2 % High 11.5-14.5 [facility] Comment on above: Performed By: #### 2 073640 #### EVGENY FrederickHemo [address] [place], [place] [id number] Hematocrit (Bld) [Volume fraction] 40.1 % Normal 36.0-48.0 [facility] Comment on above: Performed By: #### 2 328159 #### EVGENY FrederickHemo [address] [place] [address] Hemoglobin (Bld) [Mass/Vol] 13.2 g/dL Normal 12.0-16.0 [facility] Comment on above: Performed By: #### 2 680271 #### EVGENY [address] [place] [address] MCH (RBC) [Entitic mass] 30.2 pg Normal 27.0-31.0 [facility] Comment on above: Performed By: #### 2 745049 #### EVGENY [address] [place] [address] MCHC (RBC) [Mass/Vol] 32.8 g/dL Low 33.0-37.0 [facility] Comment on above: Performed By: #### 2 061662 #### EVGENY [address]Hemo [address] [place] [address] MCV (RBC) [Entitic vol] 92.1 fL Normal 78.0-100.0 [facility] Comment on above: Performed By: #### 2 025746 #### EVGENY FrederickHemo [facility] [place] [address] Platelet mean volume (Bld) [Entitic vol] 10.4 fL Normal 7.4-11.0 [facility] Comment on above: Performed By: #### 2 183122 #### EVGENY YolyHemo [address] [place] [address] Platelets (Bld) [#/Vol] 142 E3/mcL Normal 130-400 [facility] Comment on above: Performed By: #### 2 769984 #### EVGENY FrederickHemo [facility] [place] [address] RBC (Bld) [#/Vol] 4.35 E6/mcL Normal 3.90-5.40 [facility] Comment on above: Performed By: #### 2 503967 #### EVGENY YolyHemo [address] [place] [address] WBC (Bld) [#/Vol] 5.1 E3/mcL Normal 3.6-11.0 [facility] Comment on above: Performed By: #### 2 476218 #### EVGENY FrederickHemo [address] [place] [address] CMPon 03-13-2019 Albumin [Mass/Vol] 3.9 g/dL Normal 3.4-5.0 [facility] Comment on above: Performed By: #### 2 465337 ####EVGENYTl [address] [place] [address] Albumin/Globulin [Mass ratio] 1.3 {ratio} Normal 1.1-1.9 [facility] Comment on above: Performed By: #### 2 721563 ####EVGENYTl [address] [place] [address] Alk Phos 105 Int._Unit/L Normal 33-136 [facility] Comment on above: Performed By: #### 2 963483 ####EVGENYTl [address] [place] [address] ALT [Catalytic activity/Vol] 16 Int._Unit/L Normal 7-45 [facility] Comment on above: Performed By: #### 2 631373 ####EVGENY [address] [place] [address] Anion gap [Moles/Vol] 10 mmol/L Normal 10-20 [facility] Comment on above: Performed By: #### 2 849306 ####EVGENY [address] [place] [address] AST [Catalytic activity/Vol] 42 Int._Unit/L High 9-39 [facility] Comment on above: Performed By: #### 2 758151 ####EVGENY [address] [place] [address] Bili Total 0.68 mg/dL Normal 0.00-1.20 [facility] Comment on above: Performed By: #### 2 909792 ####EVGENY [address] [place] [address] Calcium [Mass/Vol] 9.2 mg/dL Normal 8.6-10.3 [facility] Comment on above: Performed By: #### 2 807893 ####EVGENY [address] [place] [address] Chloride [Moles/Vol] 106 mmol/L Normal 98-[address] [facility] Comment on above: Performed By: #### 2 657088 ####EVGENY [address] [place] [address] CO2 [Moles/Vol] 30.0 mmol/L Normal 21.0-32.0 [facility] Comment on above: Performed By: #### 2 554609 ####EVGENY [address] [place] [address] Creatinine [Mass/Vol] 0.6 mg/dL Normal 0.5-1.1 [facility] Comment on above: Performed By: #### 2 105681 ####EVGENY [address] [place] [address] Globulin (S) [Mass/Vol] 3.0 g/dL Normal 2.0-4.0 [facility] Comment on above: Performed By: #### 2 372077 ####EVGENY [address] [place] [address] Glucose [Mass/Vol] 97 mg/dL Normal 70-99 [facility] Comment on above: Performed By: #### 2 048765 ####EVGENY [address] [place] [address] Potassium [Moles/Vol] 4.0 mmol/L Normal 3.5-5.3 [facility] Comment on above: Performed By: #### 2 325564 ####EVGENY [address] [place] [address] Protein [Mass/Vol] 6.8 g/dL Normal 6.4-8.2 [facility] Comment on above: Performed By: #### 2 633655 ####EVGENY [address] [place] [address] Sodium [Moles/Vol] 142 mmol/L Normal 136-145 [facility] Comment on above: Performed By: #### 2 105708 ####EVGENY [address] [place] [address] Urea nitrogen [Mass/Vol] 19 mg/dL Normal 6-23 [facility] Comment on above: Performed By: #### 2 574130 ####EVGENY [address] [place] [address] Urea nitrogen/Creatinine [Mass ratio] 31.7 ratio High 5.4-30.0 [facility] Comment on above: Performed By: #### 2 927951 ####EVGENY [address] [place] [address] Magnesiumon 03-13-2019 Magnesium [Mass/Vol] 2.1 mg/dL Normal 1.6-2.[address] [facility] Comment on above: Performed By: #### 2 783613 ####EVGENY [address] [place] [address] TSHon 03-13-2019 TSH Qn 4.52 mcIU/mL Normal 0.30-5.60 [facility] Comment on above: Performed By: #### 2 114356 ####EVGENY [address] [place] [address] eGFRon 03-13-2019 GFR/1.73 sq M predicted among non-blacks MDRD (S/P/Bld) [Vol rate/Area] mL/min/{1.73_m2} Normal [facility] Comment on above: Order Comment: Order added by Discern Expert. Performed By: #### 1 [id number] ####EVGENY [address] [place] [address] NM Myocardial Spect Multi Re st/Stresson 02-19-2019 NM Myocardial Spect Multi Rest/Stress Exam Date/Time: 02/19/2019 09:25 EDT Reason for Exam: PALPITATIONS CHEST PRESSURE ORD STENCEL Report STUDY: NM Myocardial Spect Multi Rest/Stress; 02/19/2019 9:25 am INDICATION: PALPITATIONS CHEST PRESSURE ORD STENCEL. COMPARISON: None. ACCESSION NUMBER(S): [id number] ORDERING CLINICIAN: Haroon Quintanilla TECHNIQUE: DIVISION OF NUCLEAR MEDICINE PHARMACOLOGIC STRESS MYOCARDIAL PERFUSION SCAN, ONE DAY PROTOCOL The patient received an intravenous dose of 10.3 mCi of Tc-99m Myoview and resting emission tomographic (SPECT) images of the myocardium were acquired. The patient then received an intravenous infusion of 0.4mg regadenoson (Lexiscan) followed by an additional dose of 34.1 mCi of Tc-99m Myoview. Stress phase SPECT images of the myocardium were then acquired. These included ECG-gated images to assess and quantify ventricular function. A low-dose CT was used for attenuation correction. FINDINGS: Both stress and rest images demonstrate grossly normal perfusion throughout the left ventricle. The left ventricle is normal in size. Gated images demonstrate a hyperdynamic left ventricle with uniform LV wall motion in LVEF estimated at greater than 70%. There are no gross abnormalities appreciated on accompanying CTs the bilateral mid through lower lung zones. IMPRESSION: 1. Normal myocardial perfusion study without evidence of ischemia or prior infarction. 2. The left ventricle is normal in size. 3. Normal LV wall motion with an LV EF estimated at greater than 70%. Exam Date/Time: 02/19/2019 09:25 EDT Report I personally reviewed the images/study and I agree with the findings as stated. This study was interpreted at [place], [place]. FINAL REPORT Dictated: 02/19/2019 9:34 am Tim Porras MD Signed (Electronic Signature): 02/19/2019 9:34 am Signed by: Tim Porras MD Technologist: ANDRES Normal [facility] Lab Miscellaneouson 02-01-20 19 Status See Ref Lab Report Normal [facility] Comment on above: Performed By: #### 1 [id number] #### EVGENY Send Outs [employer]section [address] [place] [address] Lab Miscellaneouson 01-24-20 19 Test Name LC TEST [id number] Normal [facility] Comment on above: Performed By: #### 1 [id number] #### EVGENY [employer] [address] [place] [address] Auto Diffon 01-01-2019 Basophils (Bld) [#/Vol] 0.0 E3/mcL Normal 0.0-0.2 [facility] Comment on above: Order Comment: Order Added by Discern Expert. Performed By: #### 2 [id number] #### EVGENY RemHemo [address] [place] [address] Basophils/100 WBC (Bld) 0.7 % Normal 0.0-2.0 [facility] Comment on above: Order Comment: Order Added by Discern Expert. Performed By: #### 2 [id number] #### EVGENY RemHemo [address] [place] [address] Eos Absolute 0.1 E3/mcL Normal 0.0-0.7 [facility] Comment on above: Order Comment: Order Added by Discern Expert. Performed By: #### 2 [id number] #### EVGENY RemHemo [address] [place] [address] Eosinophils/100 WBC (Bld) 2.2 % Normal 0.0-11.0 [facility] Comment on above: Order Comment: Order Added by Discern Expert. Performed By: #### 2 [id number] #### EVGENY RemHemo [address] [place] [address] Lymphocytes (Bld) [#/Vol] 1.9 E3/mcL Normal 1.2-3.4 [facility] Comment on above: Order Comment: Order Added by Discern Expert. Performed By: #### 2 [id number] #### EVGENY RemHemo [address] [place] [address] Lymphocytes/100 WBC (Bld) 39.3 % Normal 20.0-55.0 [facility] Comment on above: Order Comment: Order Added by Discern Expert. Performed By: #### 2 [id number] #### EVGENY FrederickHemo [address] [place] [address] [place] Absolute 0.4 E3/mcL Normal 0.0-0.7 [facility] Comment on above: Order Comment: Order Added by Discern Expert. Performed By: #### 2 [id number] #### EVGENY Chandlero [address] [place], [place] [address] Monocytes/100 WBC (Bld) 8.8 % Normal 0.0-10.0 [facility] Comment on above: Order Comment: Order Added by Discern Expert. Performed By: #### 2 [id number] #### EVGENY FrederickHemo [address] [place], [place] [address] Neutro Absolute 2.3 E3/mcL Normal 1.4-6.5 [facility] Comment on above: Order Comment: Order Added by Discern Expert. Performed By: #### 2 [id number] #### EVGENY FrederickHemo [address] [place], [place] [address] Neutro Auto 49.0 % Normal 37.0-75.0 [facility] Comment on above: Order Comment: Order Added by Discern Expert. Performed By: #### 2 [id number] #### EVGENY FrederickHemo [address] [place] [address] CBC w/ Auto Diffon 9 Erythrocyte distribution width (RBC) [Ratio] 15.4 % High 11.5-14.5 [facility] Comment on above: Performed By: #### 2 [id number] #### EVGENY FrederickHemo [address] [place] [address] Hematocrit (Bld) [Volume fraction] 40.8 % Normal 36.0-48.0 [facility] Comment on above: Performed By: #### 2 538691 #### EVGENY FrederickHemo [address] [place] [address] Hemoglobin (Bld) [Mass/Vol] 13.3 g/dL Normal 12.0-16.0 [facility] Comment on above: Performed By: #### 2 752453 #### EVGENY RemHemo [address] [place] [address] MCH (RBC) [Entitic mass] 29.8 pg Normal 27.0-31.0 [facility] Comment on above: Performed By: #### 2 [id number] #### EVGENY RemHemo [address] [place] [address] MCHC (RBC) [Mass/Vol] 32.6 g/dL Low 33.0-37.0 [facility] Comment on above: Performed By: #### 2 793017 #### EVGENY RemHemo [address] [place] [address] MCV (RBC) [Entitic vol] 91.4 fL Normal 78.0-100.0 [facility] Comment on above: Performed By: #### 2 654646 #### EVGENY RemHemo [address] [place] [address] Platelet mean volume (Bld) [Entitic vol] 9.9 fL Normal 7.4-11.0 [facility] Comment on above: Performed By: #### 2 615999 #### EVGENY RemHemo [address] [place] [address] Platelets (Bld) [#/Vol] 157 E3/mcL Normal 130-400 [facility] Comment on above: Performed By: #### 2 [id number] #### EVGENY RemHemo [address] [place] [address] RBC (Bld) [#/Vol] 4.46 E6/mcL Normal 3.90-5.40 [facility] Comment on above: Performed By: #### 2 [id number] #### EVGENY RemHemo [address] [place] [address] WBC (Bld) [#/Vol] 4.8 E3/mcL Normal 3.6-11.0 [facility] Comment on above: Performed By: #### 2 026366 #### EVGENY RemHemo [address] [place] [address] CMPon 01-01-2019 Albumin [Mass/Vol] 3.9 g/dL Normal 3.4-5.0 [facility] Comment on above: Performed By: #### 2 [id number] #### [facility] [employer] [address] [place] [address] Albumin/Globulin [Mass ratio] 1.3 {ratio} Normal 1.1-1.9 [facility] Comment on above: Performed By: #### 2 737077 #### [facility] [employer] [address] [place] [address] Alk Phos 99 Int._Unit/L Normal 33-136 [facility] Comment on above: Performed By: #### 2 782203 #### [facility] [employer] [address] [place] [address] ALT [Catalytic activity/Vol] 14 Int._Unit/L Normal 7-45 [facility] Comment on above: Performed By: #### 2 [id number] #### [facility] [employer] [address] [place] [address] Anion gap [Moles/Vol] 10 mmol/L Normal 10-20 [facility] Comment on above: Performed By: #### 2 674085 #### [facility] [employer] [address] [place], [place] [address] AST [Catalytic activity/Vol] 34 Int._Unit/L Normal 9-39 [facility] Comment on above: Performed By: #### 2 545299 #### [facility] [employer] [address] [place] [address] Bili Total 0.90 mg/dL Normal 0.00-1.20 [facility] Comment on above: Performed By: #### 2 810328 #### [facility] [employer] [address] [place] [address]271 Calcium [Mass/Vol] 9.2 mg/dL Normal 8.6-10.3 [facility] Comment on above: Performed By: #### 2 656173 #### [facility] [employer] [address] [place] [address] 11966 Chloride [Moles/Vol] 103 mmol/L Normal 98-[address] [facility] Comment on above: Performed By: #### 2 545760 #### [facility] [employer] [address] [place] [address] 58686 CO2 [Moles/Vol] 29.0 mmol/L Normal 21.0-32.0 [facility] Comment on above: Performed By: #### 2 267681 #### EVGENY [employer] [address] [place] [address] Creatinine [Mass/Vol] 0.7 mg/dL Normal 0.5-1.1 [facility] Comment on above: Performed By: #### 2 762334 #### [employer] [address] [place] [address] Globulin (S) [Mass/Vol] 3.0 g/dL Normal 2.0-4.0 [facility] Comment on above: Performed By: #### 2 [id number] #### [employer] [address] [place] [address]343 Glucose [Mass/Vol] 97 mg/dL Normal 70-99 [facility] Comment on above: Performed By: #### 2 834108 #### [employer] [address] [place] [address]014 Potassium [Moles/Vol] 3.7 mmol/L Normal 3.5-5.3 [facility] Comment on above: Performed By: #### 2 462180 #### [employer] [address] [place] [address]407 Protein [Mass/Vol] 6.9 g/dL Normal 6.4-8.2 [facility] Comment on above: Performed By: #### 2 061937 #### [employer] [address] [place] [address]87 Sodium [Moles/Vol] 138 mmol/L Normal 136-145 [facility] Comment on above: Performed By: #### 2 405685 #### [employer] [address] [place] [address]60 Urea nitrogen [Mass/Vol] 15 mg/dL Normal 6-23 [facility] Comment on above: Performed By: #### 2 096629 #### [employer] [address] [place] [address] Urea nitrogen/Creatinine [Mass ratio] 21.4 ratio Normal 5.4-30.0 [facility] Comment on above: Performed By: #### 2 [id number] #### [employer]GEN[employer] [address] [place] [address] eGFRon 01-01-2019 GFR/1.73 sq M predicted among non-blacks MDRD (S/P/Bld) [Vol rate/Area] mL/min/{1.73_m2} Normal [facility] Comment on above: Order Comment: Order added by Discern Expert. Performed By: #### 1 [id number] #### EVGENY [employer] [address] [place] [address] [place] Mamm Screen w/CAD if perf ormed bilaton 09-29-2018 [place] Mamm Screen w/CAD if performed bilat Exam Date/Time: 09/28/2018 09:50 EST Reason for Exam: SCREENING Z12.31;Screening Report STUDY: Digital mammography screening; 09/28/2018 9:50 am ACCESSION NUMBER(S): [id number] ORDERING CLINICIAN: Sancho Woodruff INDICATION: Screening. COMPARISON: Comparison is made to prior digital mammograms dated 07/21/2017 and 10/09/2015 FINDINGS: CC and MLO 2D digital mammographic images of the bilateral breasts were obtained. The breast tissue is almost entirely fatty. No discrete mass or focal asymmetry is identified. No suspicious microcalcifications or foci of architectural distortion are seen. There has been no significant change. This study was interpreted with CAD. IMPRESSION: No mammographic evidence of malignancy. BI-RADS CATEGORY: Category: 1 - Negative. Recommendation: Normal Interval Follow-up, Over Age 40. Recall Interval: 12 Months. Breast Density: Fatty. FINAL REPORT Dictated: 09/29/2018 8:27 am Deniz Toro MD Signed (Electronic Signature): 09/29/2018 8:27 am Signed by: Deniz Toro MD Technologist: W Assessment: BI-RADS Category 1-Negative Recommendation: Normal interval follow-up Normal [facility] MRI Spine Lumbar w/o Contras ton 08-08-2018 MRI Spine Lumbar w/o Contrast Exam Date/Time: 08/08/2018 08:55 EDT Reason for Exam: LUMBAR RADICULOPATHY PT HAS HAD RIGHT HIP SURGERY/BLAT KNEES/LEFT FOOT METAL;Radiculopathy Report STUDY: MRI Spine Lumbar w/o Contrast; 08/08/2018 8:55 am INDICATION: Radiculopathy. COMPARISON: None. ACCESSION NUMBER(S): [id number] ORDERING CLINICIAN: Sancho Woodruff TECHNIQUE: The lumbar spine was studied in the sagital, axial and coronal planes utiliing T1 and T2 weighted images. FINDINGS: The marrow signal and vertebral body height are normal. The conus and sacrum are normal. Images at each interspace reveal the following: L1/L2 Circumferential bulging disc and facet hypertrophy without canal or foraminal narrowing L2/L3 Circumferential bulging intervertebral disc and facet hypertrophy without canal stenosis. Mild foraminal narrowing bilaterally L3/L4 Mild bulging disc and bilateral facet hypertrophy. No measurable canal stenosis. Mild bilateral foraminal narrowing without focal disc herniation L4/L5 Trace spondylolisthesis. Circumferential bulging of the intervertebral disc. Bilateral facet hypertrophy. Flattening and deformity of the thecal sac which measures approximately 7 mm in AP dimension in the midline. Severe bilateral foraminal stenosis without focal disc herniation. L5/S1 Asymmetrical facet hypertrophy and marginal osteophyte formation toward the left with focal left- sided foraminal narrowing. IMPRESSION: *Lumbar spondylosis with foraminal narrowing as described *No measurable canal stenosis Exam Date/Time: 08/08/2018 08:55 EDT Report The examination was interpreted [facility] FINAL REPORT Dictated: 08/08/2018 10:46 am Bhupendra Koenig MD Signed (Electronic Signature): 08/08/2018 10:46 am Signed by: Bhupendra Koenig MD Technologist: [facility] XR Shoulder Left 2+ Views (S tandard)on 04-24-2018 INR Coag RelTime (Bld) X-ray of the left shoulder 3 views AP axillary Y scapular view obtained due to shoulder pain reveals moderate AC joint arthrosis otherwise no abnormalities Invalid Interpretation Code [facility] US ABDOMEN LIMITEDon 018 US ABDOMEN LIMITED Final ReportAccession No: [id number] Performed: Apr 20 2018 10:44AMExamination: US ABDOMEN LIMITEDEXAM: US ABDOMEN LIMITEDHISTORY: 77 years old Female presenting with cirrhosis.TECHNIQUE: Ultrasound of the right upper quadrant abdomen.COMPARISON: None.FINDINGS:Liver: Hepatomegaly. Right hepatic lobe measures up to 22 cm. Diffuseheterogeneous echotexture without focal hepatic lesion. Peripheral nodularcontour suggestive of cirrhosis.Gallbladder: Prior cholecystectomy.Common bile duct: Normal in diameter, measuring 0.3cm.Right kidney: Normal in size and echogenicity measuring 11.7 x 4.2 x 4.6cm.No hydronephrosis or renal calculus.Miscellaneous:V isualized pancreatic body appears normal. The head andtail areobscured by bowel gas.IMPRESSION:1. Hepatomegaly with cirrhotic contour. No focal hepatic lesion.2. Prior cholecystectomy.[facility] Physician: ANDREW MARIE D.O.Trans: sskees : cc: Normal [facility] Vital Signs Date Time Vital Sign Value Performing Clinician Facility 07-30-2025 15:00-0400 Body mass index (BMI) [Ratio] 30.49 kg/m2 Sancho Woodruff MD Work Phone: [facility] 07-30-2025 15:00-0400 Body weight 61.69 kg Sancho Woodruff MD Work Phone: [facility] 07-30-2025 15:00-0400 Diastolic blood pressure 72 mm[Hg] Sancho Woodruff MD Work Phone: [facility] 07-30-2025 15:00-0400 Heart rate 86 /min Sancho Woodruff MD Work Phone: [facility] 07-30-2025 15:00-0400 SaO2% (BldA) [Mass fraction] 97 % Sancho Woodruff MD Work Phone: [facility] 07-30-2025 15:00-0400 Systolic blood pressure 138 mm[Hg] Sancho Woodrfuf MD Work Phone: [facility] 07-01-2025 09:36-0400 Body temperature 97.7 [degF] Dr. Sancho Woodruff MD Work Phone: [facility] 07-01-2025 09:36-0400 Diastolic blood pressure 81 mm[Hg] Dr. Sancho Woodruff MD Work Phone: [facility] 07-01-2025 09:36-0400 Heart rate 80 /min Dr. Sancho Woodruff MD Work Phone: [facility] 07-01-2025 09:36-0400 Respiratory rate 18 /min Dr. Sancho Woodruff MD Work Phone: [facility] 07-01-2025 09:36-0400 Systolic blood pressure 147 mm[Hg] Dr. Sancho Woodruff MD Work Phone: [facility] 06-19-2025 09:41-0400 Body height 147.3 cm Wang Borges MD Work Phone: [facility] 06-19-2025 09:41-0400 Body mass index (BMI) [Ratio] 27.17 kg/m2 Wang Borges MD Work Phone: [facility] 06-19-2025 09:41-0400 Body weight 58.97 kg Wang Borges MD Work Phone: [facility] 06-19-2025 09:41-0400 Diastolic blood pressure 80 mm[Hg] Wang Borges MD Work Phone: [facility] 06-19-2025 09:41-0400 Systolic blood pressure 120 mm[Hg] Wang Borges MD Work Phone: [facility] 06-12-2025 12:11-0400 Body height 142.2 cm Tony Rao DO Work Phone: [facility] 06-12-2025 12:11-0400 Body mass index (BMI) [Ratio] 29.82 kg/m2 Tony Rao DO Work Phone: [facility] 06-12-2025 12:11-0400 Body weight 60.33 kg Tony Rao DO Work Phone: [facility] 06-12-2025 12:11-0400 Diastolic blood pressure 62 mm[Hg] Tony Rao DO Work Phone: [facility] 06-12-2025 12:11-0400 Heart rate 103 /min Tony Rao DO Work Phone: [facility] 06-12-2025 12:11-0400 Respiratory rate 20 /min Tony Rao DO Work Phone: [facility] 06-12-2025 12:11-0400 Systolic blood pressure 121 mm[Hg] Tony Rao DO Work Phone: [facility] 05-27-2025 13:33-0400 Body temperature 99.8 [degF] Dr. Sancho Woodruff MD Work Phone: [facility] 05-27-2025 13:33-0400 Diastolic blood pressure 88 mm[Hg] Dr. Sancho Woodruff MD Work Phone: 4(857)799-866070 [place] [address] 05-27-2025 13:33-0400 Heart rate 86 /min Dr. Sancho Woodruff MD Work Phone: 9(692)691-542370 [place] [address] 05-27-2025 13:33-0400 Respiratory rate 18 /min Dr. Sancho Woodruff MD Work Phone: [facility] 05-27-2025 13:33-0400 Systolic blood pressure 146 mm[Hg] Dr. Sancho Woodruff MD Work Phone: 8(808)847-677770 [place] [address] 04-29-2025 14:17-0400 Body mass index (BMI) [Ratio] 27.8 kg/m2 Dr. Sancho Woodruff MD Work Phone: [facility] 04-29-2025 14:17-0400 Body temperature 97.6 [degF] Dr. Sancho Woodruff MD Work Phone: [facility] 04-29-2025 14:17-0400 Diastolic blood pressure 77 mm[Hg] Dr. Sancho Woodruff MD Work Phone: [facility] 04-29-2025 14:17-0400 Heart rate 45 /min Dr. Sancho Woodruff MD Work Phone: [facility] 04-29-2025 14:17-0400 Respiratory rate 14 /min Dr. Sancho Woodruff MD Work Phone: [facility] 04-29-2025 14:17-0400 Systolic blood pressure 133 mm[Hg] Dr. Sancho Woodruff MD Work Phone: [facility] 04-29-2025 09:40-0400 Body height 143 cm Dariela Garza MD Work Phone: [facility] 04-29-2025 09:40-0400 Body mass index (BMI) [Ratio] 29.5 kg/m2 Dariela Garza MD Work Phone: [facility] 04-29-2025 09:40-0400 Body weight 60.33 kg Dariela Garza MD Work Phone: [facility] Comment on above: Recorded weight from last visit. 04-29-2025 09:40-0400 Diastolic blood pressure 82 mm[Hg] Dariela Garza MD Work Phone: [facility] 04-29-2025 09:40-0400 Heart rate 70 /min Dariela Garza MD Work Phone: [facility] 04-29-2025 09:40-0400 Systolic blood pressure 142 mm[Hg] Dariela Garza MD Work Phone: [facility] 04-22-2025 15:01-0400 Body height 147.[address] Sancho Woodruff MD Work Phone: [facility] 04-22-2025 15:01-0400 Body weight 60.[address] Sancho Woodruff MD Work Phone: [facility] 04-19-2025 10:16-0400 Body height 143 cm Dariela Garza MD Work Phone: [facility] 04-19-2025 10:16-0400 Body mass index (BMI) [Ratio] 29.5 kg/m2 Dariela Garza MD Work Phone: [facility] 04-19-2025 10:16-0400 Body weight 60.33 kg Dariela Garza MD Work Phone: [facility] Comment on above: Recorded weight from last visit. 04-19-2025 10:16-0400 Diastolic blood pressure 80 mm[Hg] Dariela Garza MD Work Phone: [facility] 04-19-2025 10:16-0400 Heart rate 78 /min Dariela Garza MD Work Phone: [facility] 04-19-2025 10:16-0400 Systolic blood pressure 120 mm[Hg] Dariela Garza MD Work Phone: [facility] 04-05-2025 10:38-0400 Body height 143 cm Dariela Garza MD Work Phone: [facility] 04-05-2025 10:38-0400 Body mass index (BMI) [Ratio] 29.63 kg/m2 Dariela Garza MD Work Phone: [facility] 04-05-2025 10:38-0400 Body weight 60.6 kg Dariela Garza MD Work Phone: 0(399)891-5515[address] [place] [address] 04-05-2025 10:38-0400 Diastolic blood pressure 82 mm[Hg] Dariela Garza MD Work Phone: [facility] 04-05-2025 10:38-0400 Heart rate 81 /min Dariela Garza MD Work Phone: [facility] 04-05-2025 10:38-0400 Systolic blood pressure 142 mm[Hg] Dariela Garza MD Work Phone: [facility] 04-03-2025 11:19-0400 Body mass index (BMI) [Ratio] 28.84 kg/m2 Sancho Woodruff MD Work Phone: [facility] 04-03-2025 11:19-0400 Body weight 58.97 kg Sancho Woodruff MD Work Phone: [facility] 04-03-2025 11:19-0400 Diastolic blood pressure 84 mm[Hg] Sancho Woodruff MD Work Phone: [facility] 04-03-2025 11:19-0400 Heart rate 85 /min Sancho Woodruff MD Work Phone: [facility] 04-03-2025 11:19-0400 SaO2% (BldA) [Mass fraction] 97 % Sancho Woodruff MD Work Phone: [facility] 04-03-2025 11:19-0400 Systolic blood pressure 140 mm[Hg] Sancho Woodruff MD Work Phone: [facility] 02-01-2025 10:08-0400 Body height 147.3 cm Dariela Garza MD Work Phone: [facility] 02-01-2025 10:08-0400 Body mass index (BMI) [Ratio] 27.8 kg/m2 Dariela Garza MD Work Phone: [facility] 02-01-2025 10:08-0400 Body weight 60.33 kg Dariela Garza MD Work Phone: [facility] Comment on above: Recorded weight from last visit. 02-01-2025 10:08-0400 Diastolic blood pressure 82 mm[Hg] Dariela Garza MD Work Phone: [facility] 02-01-2025 10:08-0400 Heart rate 79 /min Dariela Garza MD Work Phone: [facility] 02-01-2025 10:08-0400 Systolic blood pressure 134 mm[Hg] Dariela Garza MD Work Phone: [facility] 01-18-2025 10:18-0400 Body height 147.3 cm Dariela Garza MD Work Phone: [facility] 01-18-2025 10:18-0400 Body mass index (BMI) [Ratio] 27.92 kg/m2 Dariela Garza MD Work Phone: [facility] 01-18-2025 10:18-0400 Body weight 60.6 kg Dariela Garza MD Work Phone: [facility] 01-18-2025 10:18-0400 Diastolic blood pressure 86 mm[Hg] Dariela Garza MD Work Phone: [facility] 01-18-2025 10:18-0400 Heart rate 86 /min Dariela Garza MD Work Phone: [facility] 01-18-2025 10:18-0400 Systolic blood pressure 130 mm[Hg] Dariela Garza MD Work Phone: [facility] 01-01-2025 10:50-0400 Body mass index (BMI) [Ratio] 28.22 kg/m2 Sancho Woodruff MD Work Phone: [facility] 01-01-2025 10:50-0400 Body weight 61.24 kg Sancho Woodruff MD Work Phone: [facility] 01-01-2025 10:50-0400 Diastolic blood pressure 80 mm[Hg] Sancho Woodruff MD Work Phone: [facility] 01-01-2025 10:50-0400 Heart rate 91 /min Sancho Woodruff MD Work Phone: [facility] 01-01-2025 10:50-0400 SaO2% (BldA) [Mass fraction] 99 % Sancho Woodruff MD Work Phone: [facility] 01-01-2025 10:50-0400 Systolic blood pressure 130 mm[Hg] Sancho Woodruff MD Work Phone: [facility] 12-12-2024 11:14-0500 Diastolic blood pressure 92 mm[Hg] Wang Borges MD Work Phone: [facility] 12-12-2024 11:14-0500 Systolic blood pressure 140 mm[Hg] Wang Borges MD Work Phone: [facility] 12-12-2024 11:08-0500 Body height 147.3 cm Wang Borges MD Work Phone: [facility] 12-12-2024 11:08-0500 Body mass index (BMI) [Ratio] 28.42 kg/m2 Wang Borges MD Work Phone: [facility] 12-12-2024 11:08-0500 Body weight 61.69 kg Wang Borges MD Work Phone: [facility] 12-12-2024 11:08-0500 Heart rate 94 /min Wang Borges MD Work Phone: [facility] 12-12-2024 11:08-0500 SaO2% (BldA) [Mass fraction] 95 % Wang Borges MD Work Phone: [facility] 10-30-2024 10:55-0500 Body height 147.3 cm Jose A Green [employer] Work Phone: [facility] 10-30-2024 10:55-0500 Body mass index (BMI) [Ratio] 28.22 kg/m2 Jose A Green [employer] Work Phone: [facility] 10-30-2024 10:55-0500 Body weight 61.24 kg Jose A Green [employer] Work Phone: [facility] 10-30-2024 10:55-0500 Diastolic blood pressure 86 mm[Hg] Jose A Green [employer] Work Phone: [facility] 10-30-2024 10:55-0500 Heart rate 86 /min Jose A Green [employer] Work Phone: [facility] 10-30-2024 10:55-0500 Respiratory rate 16 /min Jose A Green [employer] Work Phone: [facility] 10-30-2024 10:55-0500 SaO2% (BldA) [Mass fraction] 97 % Jose A Green [employer] Work Phone: [facility] 10-30-2024 10:55-0500 Systolic blood pressure 127 mm[Hg] Jose A Green [employer] Work Phone: [facility] 08-13-2024 14:27-0500 Body height 147.3 cm Sancho Woodruff MD Work Phone: [facility] 08-13-2024 14:27-0500 Body mass index (BMI) [Ratio] 28.22 kg/m2 Sancho Woodruff MD Work Phone: [facility] 08-13-2024 14:27-0500 Body weight 61.24 kg Sancho Woodruff MD Work Phone: [facility] 08-13-2024 14:27-0500 Diastolic blood pressure 80 mm[Hg] Sancho Woodruff MD Work Phone: [facility] 08-13-2024 14:27-0500 Heart rate 107 /min Sancho Woodruff MD Work Phone: [facility] 08-13-2024 14:27-0500 SaO2% (BldA) [Mass fraction] 96 % Sancho Woodruff MD Work Phone: [facility] 08-13-2024 14:27-0500 Systolic blood pressure 128 mm[Hg] Sancho Woodruff MD Work Phone: [facility] 05-11-2024 11:41-0400 Body height 147.3 cm Jaylan Danis DO Work Phone: [facility] 05-11-2024 11:41-0400 Body mass index (BMI) [Ratio] 31.73 kg/m2 Jaylan Danis DO Work Phone: [facility] 05-11-2024 11:41-0400 Body weight 68.86 kg Jaylan Danis DO Work Phone: [facility] 05-11-2024 11:41-0400 Diastolic blood pressure 78 mm[Hg] Jaylan Danis DO Work Phone: [facility] 05-11-2024 11:41-0400 Heart rate 81 /min Jaylan Danis DO Work Phone: [facility] 05-11-2024 11:41-0400 SaO2% (BldA) [Mass fraction] 94 % Jaylan Danis DO Work Phone: [facility] 05-11-2024 11:41-0400 Systolic blood pressure 124 mm[Hg] Jaylan Danis DO Work Phone: [facility] 04-16-2024 14:46-0400 Body height 147.3 cm Sancho Woodruff MD Work Phone: [facility] 04-16-2024 14:46-0400 Body mass index (BMI) [Ratio] 31.98 kg/m2 Sancho Woodruff MD Work Phone: [facility] 04-16-2024 14:46-0400 Body weight 69.4 kg Sancho Woodruff MD Work Phone: [facility] 04-16-2024 14:46-0400 Diastolic blood pressure 82 mm[Hg] Sancho Woodruff MD Work Phone: [facility] 04-16-2024 14:46-0400 Heart rate 89 /min Sancho Woodruff MD Work Phone: [facility] 04-16-2024 14:46-0400 SaO2% (BldA) [Mass fraction] 94 % Sancho Woodruff MD Work Phone: [facility] 04-16-2024 14:46-0400 Systolic blood pressure 130 mm[Hg] Sancho Woodruff MD Work Phone: [facility] 03-12-2024 09:52-0400 Body height 147.3 cm Sancho Woodruff MD Work Phone: [facility] 03-12-2024 09:52-0400 Body mass index (BMI) [Ratio] 32.27 kg/m2 Sancho Woodruff MD Work Phone: [facility] 03-12-2024 09:52-0400 Body weight 70.03 kg Sancho Woodruff MD Work Phone: [facility] 03-12-2024 09:52-0400 Diastolic blood pressure 80 mm[Hg] Sancho Woodruff MD Work Phone: [facility] 03-12-2024 09:52-0400 Heart rate 75 /min Sancho Woodruff MD Work Phone: [facility] 03-12-2024 09:52-0400 SaO2% (BldA) [Mass fraction] 97 % Sancho Woodruff MD Work Phone: [facility] 03-12-2024 09:52-0400 Systolic blood pressure 138 mm[Hg] Sancho Woodruff MD Work Phone: [facility] 02-22-2024 10:30-0400 Body height 147.3 cm Jaylan Danis DO Work Phone: [facility] 02-22-2024 10:30-0400 Body mass index (BMI) [Ratio] 30.93 kg/m2 Jaylan Danis DO Work Phone: [facility] 02-22-2024 10:30-0400 Body weight 67.13 kg Jaylan Danis DO Work Phone: [facility] 02-22-2024 10:30-0400 Diastolic blood pressure 84 mm[Hg] Jaylan Danis DO Work Phone: [facility] 02-22-2024 10:30-0400 Heart rate 78 /min Jaylan Danis DO Work Phone: [facility] 02-22-2024 10:30-0400 Respiratory rate 16 /min Jaylan Danis DO Work Phone: [facility] 02-22-2024 10:30-0400 SaO2% (BldA) [Mass fraction] 97 % Jaylan Danis DO Work Phone: [facility] 02-22-2024 10:30-0400 Systolic blood pressure 125 mm[Hg] Jaylan Danis DO Work Phone: [facility] 01-16-2024 14:40-0400 Body height 147.3 cm Sancho Woodruff MD Work Phone: [facility] 01-16-2024 14:40-0400 Body mass index (BMI) [Ratio] 33.02 kg/m2 Sancho Woodruff MD Work Phone: [facility] 01-16-2024 14:40-0400 Body weight 71.67 kg Sancho Woodruff MD Work Phone: [facility] 01-16-2024 14:40-0400 Diastolic blood pressure 78 mm[Hg] Sancho Woodruff MD Work Phone: [facility] 01-16-2024 14:40-0400 Heart rate 95 /min Sancho Woodruff MD Work Phone: [facility] 01-16-2024 14:40-0400 SaO2% (BldA) [Mass fraction] 97 % Sancho Woodruff MD Work Phone: [facility] 01-16-2024 14:40-0400 Systolic blood pressure 126 mm[Hg] Sancho Woodruff MD Work Phone: [facility] 12-21-2023 12:57-0400 Body temperature 98.71 [degF] Jose A Green [employer] Work Phone: [facility] 12-21-2023 12:57-0400 Diastolic blood pressure 74 mm[Hg] Jose A Green [employer] Work Phone: [facility] 12-21-2023 12:57-0400 Heart rate 73 /min Jose A Green [employer] Work Phone: [facility] 12-21-2023 12:57-0400 SaO2% (BldA) [Mass fraction] 97 % Jose A Green [employer] Work Phone: [facility] 12-21-2023 12:57-0400 Systolic blood pressure 130 mm[Hg] Jose A Green [employer] Work Phone: [facility] 11-15-2023 14:00-0500 Body temperature 98.49 [degF] Jose A Green [employer] Work Phone: [facility] 11-15-2023 14:00-0500 Diastolic blood pressure 76 mm[Hg] Jose A Green [employer] Work Phone: [facility] 11-15-2023 14:00-0500 Heart rate 81 /min Jose A Green [employer] Work Phone: [facility] 11-15-2023 14:00-0500 SaO2% (BldA) [Mass fraction] 94 % Jose A Ornelas [employer] Work Phone: [facility] 11-15-2023 14:00-0500 Systolic blood pressure 124 mm[Hg] Jose A Ornelas [employer] Work Phone: [facility] 10-13-2023 13:57-0500 Body height 147.3 cm Sancho Woodruff MD Work Phone: [facility] 10-13-2023 13:57-0500 Body mass index (BMI) [Ratio] 32.25 kg/m2 Sancho Woodruff MD Work Phone: [facility] 10-13-2023 13:57-0500 Body weight 69.99 kg Sancho Woodruff MD Work Phone: [facility] 10-13-2023 13:57-0500 Diastolic blood pressure 80 mm[Hg] Sancho Woodruff MD Work Phone: [facility] 10-13-2023 13:57-0500 Heart rate 100 /min Sancho Woodruff MD Work Phone: [facility] 10-13-2023 13:57-0500 SaO2% (BldA) [Mass fraction] 98 % Sancho Woodruff MD Work Phone: [facility] 10-13-2023 13:57-0500 Systolic blood pressure 130 mm[Hg] Sancho Woodruff MD Work Phone: [facility] 07-18-2023 11:18-0400 Body temperature 97.5 [degF] Dada Gee PA-C Work Phone: [facility] 07-18-2023 11:18-0400 Diastolic blood pressure 82 mm[Hg] Dada Gee PA-C Work Phone: [facility] 07-18-2023 11:18-0400 Heart rate 89 /min Dada Gee PA-C Work Phone: [facility] 07-18-2023 11:18-0400 Respiratory rate 16 /min Dada Gee PA-C Work Phone: [facility] 07-18-2023 11:18-0400 SaO2% (BldA) [Mass fraction] 97 % Dada Gee PA-C Work Phone: [facility] 07-18-2023 11:18-0400 Systolic blood pressure 138 mm[Hg] Dada Gee PA-C Work Phone: [facility] 07-07-2023 14:43-0400 Body height 147.3 cm Sancho Woodruff MD Work Phone: [facility] 07-07-2023 14:43-0400 Body mass index (BMI) [Ratio] 32.35 kg/m2 Sancho Woodruff MD Work Phone: [facility] 07-07-2023 14:43-0400 Body weight 70.22 kg Sancho Woodruff MD Work Phone: [facility] 07-07-2023 14:43-0400 Diastolic blood pressure 60 mm[Hg] Sancho Woodruff MD Work Phone: [facility] 07-07-2023 14:43-0400 Heart rate 69 /min Sancho Woodruff MD Work Phone: [facility] 07-07-2023 14:43-0400 SaO2% (BldA) [Mass fraction] 98 % Sancho Woodruff MD Work Phone: [facility] 07-07-2023 14:43-0400 Systolic blood pressure 122 mm[Hg] Sancho Woodruff MD Work Phone: [facility] 06-15-2023 12:40-0400 Diastolic blood pressure 77 mm[Hg] Shawn Mcmillan PA-C Work Phone: [facility] 06-15-2023 12:40-0400 Heart rate 98 /min Shawn Mcmillan PA-C Work Phone: [facility] 06-15-2023 12:40-0400 Respiratory rate 16 /min Shawn Mcmillan PA-C Work Phone: [facility] 06-15-2023 12:40-0400 SaO2% (BldA) [Mass fraction] 96 % Shawn MELENDEZ-Shameka Work Phone: [facility] 06-15-2023 12:40-0400 Systolic blood pressure 111 mm[Hg] Shawn Mcmillan PA-C Work Phone: [facility] 06-09-2023 08:25-0400 Body height 147.3 cm Sancho Woodruff MD Work Phone: [facility] 06-09-2023 08:25-0400 Body mass index (BMI) [Ratio] 32.14 kg/m2 Sancho Woodruff MD Work Phone: [facility] 06-09-2023 08:25-0400 Body weight 69.76 kg Sancho Woodruff MD Work Phone: [facility] 06-09-2023 08:25-0400 Diastolic blood pressure 80 mm[Hg] Sancho Woodruff MD Work Phone: [facility] 06-09-2023 08:25-0400 Heart rate 84 /min Sancho Woodruff MD Work Phone: [facility] 06-09-2023 08:25-0400 SaO2% (BldA) [Mass fraction] 98 % Sancho Woodruff MD Work Phone: [facility] 06-09-2023 08:25-0400 Systolic blood pressure 126 mm[Hg] Sancho Woodruff MD Work Phone: [facility] 05-27-2023 12:51-0400 Body temperature 98.1 [degF] Bridger Monique MD Work Phone: [facility] 05-27-2023 12:51-0400 Diastolic blood pressure 78 mm[Hg] Bridger Monique MD Work Phone: [facility] 05-27-2023 12:51-0400 Heart rate 76 /min Bridger Monique MD Work Phone: [facility] 05-27-2023 12:51-0400 Respiratory rate 16 /min Bridger Monique MD Work Phone: [facility] 05-27-2023 12:51-0400 SaO2% (BldA) [Mass fraction] 95 % Bridger Monique MD Work Phone: [facility] 05-27-2023 12:51-0400 Systolic blood pressure 144 mm[Hg] Bridger Monique MD Work Phone: [facility] 05-19-2023 15:44-0400 SaO2% (BldA) [Mass fraction] 100.0 % Bridger Monique MD Work Phone: [facility] 05-19-2023 14:50-0400 Body temperature 97.5 [degF] Bridger Monique MD Work Phone: [facility] 05-19-2023 14:04-0400 Diastolic blood pressure 60 mm[Hg] Bridger Monique MD Work Phone: [facility] 05-19-2023 14:04-0400 Respiratory rate 16 /min Bridger Monique MD Work Phone: [facility] 05-19-2023 14:04-0400 SaO2% (BldA) [Mass fraction] 95 % Bridger Monique MD Work Phone: [facility] 05-19-2023 14:04-0400 Systolic blood pressure 113 mm[Hg] Bridger Monique MD Work Phone: [facility] 05-19-2023 13:10-0400 Heart rate 70 /min Bridger Monique MD Work Phone: [facility] 05-19-2023 07:00-0400 Body height 147.3 cm Bridger Monique MD Work Phone: [facility] 05-19-2023 07:00-0400 Body mass index (BMI) [Ratio] 32.02 kg/m2 Bridger Monique MD Work Phone: [facility] 05-19-2023 07:00-0400 Body weight 69.5 kg Bridger Monique MD Work Phone: [facility] 05-05-2023 07:59-0400 Body height 147.3 cm Burt Vasquez CNP Work Phone: [facility] 05-05-2023 07:59-0400 Body mass index (BMI) [Ratio] 30.93 kg/m2 Burt Vasquez CNP Work Phone: [facility] 05-05-2023 07:59-0400 Body weight 67.13 kg Burt Vasquez CNP Work Phone: [facility] Comment on above: verbal 05-05-2023 07:59-0400 Diastolic blood pressure 69 mm[Hg] Burt Vasquez CNP Work Phone: [facility] 05-05-2023 07:59-0400 Heart rate 71 /min Burt Vasquez CNP Work Phone: [facility] 05-05-2023 07:59-0400 SaO2% (BldA) [Mass fraction] 96 % Burt Vasquez CNP Work Phone: [facility] 05-05-2023 07:59-0400 Systolic blood pressure 131 mm[Hg] Burt Vasquez CNP Work Phone: [facility] 04-14-2023 14:16-0400 Body temperature 98.29 [degF] Bridger Monique MD Work Phone: [facility] 04-14-2023 14:16-0400 Diastolic blood pressure 70 mm[Hg] Bridger Monique MD Work Phone: [facility] 04-14-2023 14:16-0400 Heart rate 71 /min Bridger Monique MD Work Phone: [facility] 04-14-2023 14:16-0400 SaO2% (BldA) [Mass fraction] 95 % Bridger Monique MD Work Phone: [facility] 04-14-2023 14:16-0400 Systolic blood pressure 120 mm[Hg] Bridger Monique MD Work Phone: [facility] 04-11-2023 13:30-0400 Body height 147.3 cm Wang Borges MD Work Phone: [facility] 04-11-2023 13:30-0400 Body mass index (BMI) [Ratio] 33.23 kg/m2 Wang Borges MD Work Phone: [facility] 04-11-2023 13:30-0400 Body weight 72.12 kg Wang Borges MD Work Phone: [facility] 04-11-2023 13:30-0400 Diastolic blood pressure 86 mm[Hg] Wang Borges MD Work Phone: [facility] Comment on above: Machine BP 04-11-2023 13:30-0400 Heart rate 84 /min Wang Borges MD Work Phone: [facility] 04-11-2023 13:30-0400 SaO2% (BldA) [Mass fraction] 97 % Wang Borges MD Work Phone: [facility] Comment on above: On room air 04-11-2023 13:30-0400 Systolic blood pressure 139 mm[Hg] Wang Borges MD Work Phone: [facility] Comment on above: Machine BP 04-05-2023 15:44-0400 Body height 147.3 cm Sancho Woodruff MD Work Phone: [facility] 04-05-2023 15:44-0400 Body mass index (BMI) [Ratio] 31.68 kg/m2 Sancho Woodruff MD Work Phone: [facility] 04-05-2023 15:44-0400 Body weight 68.77 kg Sancho Woodruff MD Work Phone: [facility] 04-05-2023 15:44-0400 Diastolic blood pressure 68 mm[Hg] Sancho Woodruff MD Work Phone: [facility] 04-05-2023 15:44-0400 Heart rate 87 /min Sancho Woodruff MD Work Phone: [facility] 04-05-2023 15:44-0400 SaO2% (BldA) [Mass fraction] 98 % Sancho Woodruff MD Work Phone: [facility] 04-05-2023 15:44-0400 Systolic blood pressure 108 mm[Hg] Sancho Woodruff MD Work Phone: [facility] 03-28-2023 11:10-0400 Body height 147.32 cm Sancho Woodruff Work Phone: [facility] Work Phone: 03-28-2023 11:10-0400 Body mass index (BMI) [Ratio] 31.25 kg/m2 Sancho Woodruff Work Phone: [facility] Work Phone: 03-28-2023 11:10-0400 Body surface area Derived from formula 1.61 m2 Sancho Woodruff Work Phone: [facility] Work Phone: 03-28-2023 11:10-0400 Body weight 67.81 kg Sancho Woodruff Work Phone: [facility] [address] Work Phone: 03-28-2023 11:10-0400 Diastolic blood pressure 100 mm[Hg] Sancho Woodruff Work Phone: [facility] [address] Work Phone: 03-28-2023 11:10-0400 Systolic blood pressure 140 mm[Hg] Sancho Woodruff Work Phone: [facility] [address] Work Phone: 03-24-2023 10:47-0400 Body height 147.32 cm Sancho Woodruff Work Phone: [facility] Work Phone: 03-24-2023 10:47-0400 Body mass index (BMI) [Ratio] 33.06 kg/m2 Sancho Rizzo Stencel Work Phone: [facility] Work Phone: 03-24-2023 10:47-0400 Body surface area Derived from formula 1.65 m2 Sancho Rizzo Stencel Work Phone: [facility] Work Phone: 03-24-2023 10:47-0400 Body weight 71.76 kg Sancho Rizzo Stencel Work Phone: [facility] Work Phone: 03-24-2023 10:47-0400 Diastolic blood pressure 86 mm[Hg] Sancho Rizzo Stencel Work Phone: [facility] Work Phone: 03-24-2023 10:47-0400 Heart rate 66 /min Sancho Rizzo Stencel Work Phone: [facility] Work Phone: 03-24-2023 10:47-0400 Respiratory rate 20 /min Sancho Rizzo Stencel Work Phone: [facility] Work Phone: 03-24-2023 10:47-0400 Systolic blood pressure 137 mm[Hg] Sancho Matthias Stencel Work Phone: [facility] Work Phone: 03-04-2023 11:58-0400 Body height 147.1 cm Maria Teresa Epperson MD Work Phone: [facility] 03-04-2023 11:58-0400 Body mass index (BMI) [Ratio] 31.29 kg/m2 Maria Teresa Epperson MD Work Phone: [facility] 03-04-2023 11:58-0400 Body weight 67.7 kg Maria Teresa Epperson MD Work Phone: [facility] 02-18-2023 [id number] Body height 147.1 cm Maria Teresa Epperson MD Work Phone: [facility] 02-18-2023 09:11-0400 Body mass index (BMI) [Ratio] 32.77 kg/m2 Maria Teresa Epperson MD Work Phone: [facility] 02-18-2023 [id number] Body weight 70.9 kg Maria Teresa Epperson MD Work Phone: [facility] 02-17-2023 14:56-0400 Body height 147.3 cm Sancho Woodruff MD Work Phone: [facility] 02-17-2023 14:56-0400 Body mass index (BMI) [Ratio] 32.75 kg/m2 Sancho Woodruff MD Work Phone: [facility] 02-17-2023 14:56-0400 Body weight 71.08 kg Sancho Woodruff MD Work Phone: [facility] 02-17-2023 14:56-0400 Diastolic blood pressure 84 mm[Hg] Sancho Woodruff MD Work Phone: [facility] 02-17-2023 14:56-0400 Heart rate 88 /min Sancho Woodruff MD Work Phone: [facility] 02-17-2023 14:56-0400 SaO2% (BldA) [Mass fraction] 95 % Sancho Woodruff MD Work Phone: [facility] 02-17-2023 14:56-0400 Systolic blood pressure 124 mm[Hg] Sancho Woodruff MD Work Phone: [facility] 01-21-2023 12:16-0400 Body temperature 97.34 [degF] Sancho Woodruff Other Phone: [facility] 01-21-2023 12:16-0400 Diastolic blood pressure 59 mm[Hg] Sancho Jaracel Other Phone: [facility] 01-21-2023 12:16-0400 Heart rate 65 /min Sancho Jaracel Other Phone: [facility] 01-21-2023 12:16-0400 SaO2% (BldA) [Mass fraction] 97 % Sancho Jaracel Other Phone: [facility] 01-21-2023 12:16-0400 Systolic blood pressure 103 mm[Hg] Sancho Jaracel Other Phone: [facility] 01-06-2023 13:38-0400 Body height 147.32 cm Sancho Matthias Stencel Work Phone: [facility] Work Phone: 01-06-2023 13:38-0400 Diastolic blood pressure 85 mm[Hg] Sancho D Stencel Work Phone: [facility] Work Phone: 01-06-2023 13:38-0400 Heart rate 80 /min Sancho D Stencel Work Phone: [facility] Work Phone: 01-06-2023 13:38-0400 Respiratory rate 20 /min Sancho D Stencel Work Phone: [facility] Work Phone: 01-06-2023 13:38-0400 Systolic blood pressure 150 mm[Hg] Sancho D Stencel Work Phone: [facility] Work Phone: 12-29-2022 13:35-0400 Body height 147.32 cm Sancho D Stencel Work Phone: [facility] Work Phone: 12-29-2022 13:35-0400 Body mass index (BMI) [Ratio] 33.02 kg/m2 Sancho D Stencel Work Phone: [facility] Work Phone: 12-29-2022 13:35-0400 Body surface area Derived from formula 1.65 m2 Sancho D Stencel Work Phone: [facility] Work Phone: 12-29-2022 13:35-0400 Body weight 71.67 kg Sancho D Stencel Work Phone: [facility] Work Phone: 12-29-2022 13:35-0400 Diastolic blood pressure 88 mm[Hg] Sancho Rizzo Stencel Work Phone: [facility] Work Phone: 12-29-2022 13:35-0400 Respiratory rate 20 /min Sancho D Stencel Work Phone: [facility] Work Phone: 12-29-2022 13:35-0400 Systolic blood pressure 144 mm[Hg] Sancho D Stencel Work Phone: [facility] Work Phone: 11-18-2022 14:46-0500 Body height 147.32 cm Sancho Rizzo Stencel Work Phone: [facility] Work Phone: 11-18-2022 14:46-0500 Body mass index (BMI) [Ratio] 34.77 kg/m2 Sancho Rizzo Stencel Work Phone: [facility] Work Phone: 11-18-2022 14:46-0500 Body surface area Derived from formula 1.68 m2 Sancho Rizzo Stencel Work Phone: [facility] Work Phone: 11-18-2022 14:46-0500 Body weight 75.47 kg Sancho D Stencel [facility] Work Phone: 11-18-2022 14:46-0500 Diastolic blood pressure 62 mm[Hg] Sancho Woodruff [facility] Work Phone: 11-18-2022 14:46-0500 Heart rate 74 /min Sancho Woodruff [facility] Work Phone: 11-18-2022 14:46-0500 SaO2% (BldA) [Mass fraction] 97 % Sancho Woodruff [facility] Work Phone: 11-18-2022 14:46-0500 Systolic blood pressure 128 mm[Hg] Sancho Woodruff [facility] Work Phone: 11-04-2022 15:12-0500 Body height 147.32 cm Sancho Woodruff Work Phone: [facility] Work Phone: 11-04-2022 15:12-0500 Body mass index (BMI) [Ratio] 34.76 kg/m2 Sancho Woodruff Work Phone: [facility] Work Phone: 11-04-2022 15:12-0500 Body surface area Derived from formula 1.68 m2 aSncho Woodruff Work Phone: [facility] Work Phone: 11-04-2022 15:12-0500 Body weight 75.44 kg Sancho Woodruff Work Phone: [facility] Work Phone: 11-04-2022 15:12-0500 Diastolic blood pressure 80 mm[Hg] Sancho Rizzo Stencel Work Phone: [facility] Work Phone: 11-04-2022 15:12-0500 Heart rate 75 /min Sancho Rizzo Stencel Work Phone: [facility] Work Phone: 11-04-2022 15:12-0500 SaO2% (BldA) [Mass fraction] 97 % Sancho Rizzo Stencel Work Phone: [facility] Work Phone: 11-04-2022 15:12-0500 Systolic blood pressure 130 mm[Hg] Sancho Rizzo Stencel Work Phone: [facility] Work Phone: 09-09-2022 16:41-0500 Diastolic blood pressure 86 mm[Hg] Sancho Stencel Other Phone: [facility] 09-09-2022 16:41-0500 Heart rate 70 /min Sancho Stencel Other Phone: [facility] 09-09-2022 16:41-0500 Respiratory rate 18 /min Sancho Stencel Other Phone: [facility] 09-09-2022 16:41-0500 SaO2% (BldA) [Mass fraction] 95 % Sancho Stencel Other Phone: [facility] 09-09-2022 16:41-0500 Systolic blood pressure 153 mm[Hg] Sancho Stencel Other Phone: [facility] 09-09-2022 12:24-0500 Body height 147.3 cm Sancho Stencel Other Phone: [facility] 09-09-2022 12:24-0500 Body temperature 97.34 [degF] Sancho Stencel Other Phone: [facility] 09-09-2022 12:24-0500 Body weight 72.7 kg Sancho Stencel Other Phone: [facility] 08-03-2022 15:57-0400 Body height 147.32 cm Sancho Woodruff Work Phone: [facility] Work Phone: 08-03-2022 15:57-0400 Body mass index (BMI) [Ratio] 34.52 kg/m2 Sancho Jaracel Work Phone: [facility] Work Phone: 08-03-2022 15:57-0400 Body surface area Derived from formula 1.68 m2 Sancho Woodruff Work Phone: [facility] Work Phone: 08-03-2022 15:57-0400 Body weight 74.93 kg Sancho Woodruff Work Phone: [facility] Work Phone: 08-03-2022 15:57-0400 Diastolic blood pressure 78 mm[Hg] Sancho Jaracel Work Phone: [facility] Work Phone: 08-03-2022 15:57-0400 Heart rate 67 /min Sancho Woodruff Work Phone: [facility] Work Phone: 08-03-2022 15:57-0400 SaO2% (BldA) [Mass fraction] 96 % Sancho Woodruff Work Phone: [facility] Work Phone: 08-03-2022 15:57-0400 Systolic blood pressure 126 mm[Hg] Sancho Jaracel Work Phone: [facility] Work Phone: 05-25-2022 08:26-0400 Body height 147.32 cm Sancho Jaracel Work Phone: [facility] Work Phone: 05-25-2022 08:26-0400 Body mass index (BMI) [Ratio] 34.3 kg/m2 Sancho Woodruff Work Phone: [facility] Work Phone: 05-25-2022 08:26-0400 Body surface area Derived from formula 1.67 m2 Sancho Woodruff Work Phone: [facility] Work Phone: 05-25-2022 08:26-0400 Body weight 74.45 kg Sancho Woodruff Work Phone: [facility] Work Phone: 05-25-2022 08:26-0400 Diastolic blood pressure 76 mm[Hg] Sancho Woodruff Work Phone: [facility] Work Phone: 05-25-2022 08:26-0400 Heart rate 70 /min Sancho Woodruff Work Phone: [facility] Work Phone: 05-25-2022 08:26-0400 SaO2% (BldA) [Mass fraction] 98 % Sancho Woodruff Work Phone: [facility] Work Phone: 05-25-2022 08:26-0400 Systolic blood pressure 128 mm[Hg] Sancho Woodruff Work Phone: [facility] Work Phone: 05-17-2022 15:03-0400 Body height 147.32 cm Sancho Woodruff Work Phone: [facility] Work Phone: 05-17-2022 15:03-0400 Body mass index (BMI) [Ratio] 33.7 kg/m2 Sancho Woodruff Work Phone: [facility] Work Phone: 05-17-2022 15:03-0400 Body surface area Derived from formula 1.66 m2 Sancho Woodruff Work Phone: [facility] Work Phone: 05-17-2022 15:03-0400 Body weight 73.14 kg Sancho Woodruff Work Phone: [facility] Work Phone: 05-17-2022 15:03-0400 Diastolic blood pressure 72 mm[Hg] Sancho Woodruff Work Phone: [facility] Work Phone: 05-17-2022 15:03-0400 Heart rate 80 /min Sancho Woodruff Work Phone: [facility] Work Phone: 05-17-2022 15:03-0400 SaO2% (BldA) [Mass fraction] 94 % Sancho Woodruff Work Phone: [facility] Work Phone: 05-17-2022 15:03-0400 Systolic blood pressure 124 mm[Hg] Sancho Woodruff Work Phone: [facility] Work Phone: 05-04-2022 09:33-0400 Body height 147.32 cm Sancho Woodruff Work Phone: [facility] Work Phone: 05-04-2022 09:33-0400 Body mass index (BMI) [Ratio] 33.9 kg/m2 Sancho Jaracel Work Phone: [facility] Work Phone: 05-04-2022 09:33-0400 Body surface area Derived from formula 1.67 m2 Sancho Jaracel Work Phone: [facility] Work Phone: 05-04-2022 09:33-0400 Body weight 73.57 kg Sancho Jaracel Work Phone: [facility] Work Phone: 05-04-2022 09:33-0400 Diastolic blood pressure 88 mm[Hg] Sancho D Stencel Work Phone: [facility] Work Phone: 05-04-2022 09:33-0400 Heart rate 72 /min Sancho Rizzo Stencel Work Phone: [facility] Work Phone: 05-04-2022 09:33-0400 SaO2% (BldA) [Mass fraction] 97 % Sancho Rizzo Stencel Work Phone: [facility] Work Phone: 05-04-2022 09:33-0400 Systolic blood pressure 130 mm[Hg] Sancho D Stencel Work Phone: [facility] Work Phone: 03-09-2022 09:39-0400 Diastolic blood pressure 72 mm[Hg] Wang Borges MD Work Phone: [facility] 03-09-2022 09:39-0400 Systolic blood pressure 136 mm[Hg] Wang Borges MD Work Phone: [facility] 03-09-2022 09:33-0400 Body height 147.3 cm Wang Borges MD Work Phone: [facility] 03-09-2022 09:33-0400 Body mass index (BMI) [Ratio] 34.28 kg/m2 Wang Borges MD Work Phone: [facility] 03-09-2022 09:33-0400 Body weight 74.39 kg Wang Borges MD Work Phone: [facility] 03-09-2022 09:33-0400 Heart rate 73 /min Wang Borges MD Work Phone: [facility] 03-09-2022 09:33-0400 SaO2% (BldA) [Mass fraction] 95 % Wang Borges MD Work Phone: [facility] 02-03-2022 10:13-0400 Body height 147.32 cm Sancho Jaracel Work Phone: [facility] Work Phone: 02-03-2022 10:13-0400 Body mass index (BMI) [Ratio] 33.87 kg/m2 Sancho Rizzo Stencel Work Phone: [employer] Work Phone: 02-03-2022 10:13-0400 Body surface area Derived from formula 1.67 m2 Sancho Jaracel Work Phone: [facility] [employer] [facility] Work Phone: 02-03-2022 10:13-0400 Body weight 73.51 kg Sancho Jaracel Work Phone: [facility] Work Phone: 02-03-2022 10:13-0400 Diastolic blood pressure 76 mm[Hg] Sancho Jaracel Work Phone: [facility] Work Phone: 02-03-2022 10:13-0400 Heart rate 68 /min Sancho Jaracel Work Phone: [facility] Work Phone: 02-03-2022 10:13-0400 SaO2% (BldA) [Mass fraction] 97 % Sancho Jaracel Work Phone: [employer] Work Phone: 02-03-2022 10:13-0400 Systolic blood pressure 136 mm[Hg] Sancho Rizzo Stencel Work Phone: [facility] Work Phone: 01-27-2022 09:15-0400 Body height 147.3 cm Christine Voss [employer] Work Phone: [facility] 01-27-2022 09:15-0400 Body mass index (BMI) [Ratio] 33.02 kg/m2 Christine Voss CNP Work Phone: [facility] 01-27-2022 09:15-0400 Body weight 71.67 kg Christine Voss CNP Work Phone: [facility] 01-04-2022 08:36-0400 Body height 147.32 cm Sancho Jaracel Work Phone: [employer] [facility] Work Phone: 01-04-2022 08:36-0400 Body mass index (BMI) [Ratio] 34.28 kg/m2 Sancho Matthias Stencel Work Phone: [employer] [facility] Work Phone: 01-04-2022 08:36-0400 Body surface area Derived from formula 1.67 m2 Sancho Rizzo Stencel Work Phone: [employer] [facility] Work Phone: 01-04-2022 08:36-0400 Body weight 74.39 kg Sancho Rizzo Stencel Work Phone: [employer] [facility] Work Phone: 01-04-2022 08:36-0400 Diastolic blood pressure 70 mm[Hg] Sancho Rizzo Stencel Work Phone: [facility] Work Phone: 01-04-2022 08:36-0400 Heart rate 69 /min Sancho Rizzo Stencel Work Phone: [employer] [facility] Work Phone: 01-04-2022 08:36-0400 SaO2% (BldA) [Mass fraction] 96 % Sancho Rizzo Stencel Work Phone: [employer] Work Phone: 01-04-2022 08:36-0400 Systolic blood pressure 134 mm[Hg] Sancho Woodruff Work Phone: [facility] Work Phone: 11-05-2021 10:03-0500 Body height 147.32 cm Sancho Woodruff Work Phone: [facility] Work Phone: 11-05-2021 10:03-0500 Body mass index (BMI) [Ratio] 33.96 kg/m2 Sancho Woodruff Work Phone: [facility] Work Phone: 11-05-2021 10:03-0500 Body surface area Derived from formula 1.67 m2 Sancho Woodruff Work Phone: [facility] Work Phone: 11-05-2021 10:03-0500 Body temperature 96.9 [degF] Sancho Woodruff Work Phone: [facility] Work Phone: 11-05-2021 10:03-0500 Body weight 73.71 kg Sancho Woodruff Work Phone: [facility] Work Phone: 11-05-2021 10:03-0500 Diastolic blood pressure 88 mm[Hg] Sancho Woodruff Work Phone: [facility] Work Phone: 11-05-2021 10:03-0500 Heart rate 74 /min Sancho Woodruff Work Phone: [employer] Work Phone: 11-05-2021 10:03-0500 SaO2% (BldA) [Mass fraction] 97 % Sancho Woodruff Work Phone: [facility] Work Phone: 11-05-2021 10:03-0500 Systolic blood pressure 164 mm[Hg] Sancho Woodruff Work Phone: [facility] Work Phone: 08-07-2021 10:55-0400 Body height 147.32 cm Sancho Woodruff Work Phone: [facility] Work Phone: 08-07-2021 10:55-0400 Body mass index (BMI) [Ratio] 33.44 kg/m2 Sancho Woodruff Work Phone: [facility] Work Phone: 08-07-2021 10:55-0400 Body surface area Derived from formula 1.66 m2 Sancho Woodruff Work Phone: [facility] Work Phone: 08-07-2021 10:55-0400 Body temperature 97.1 [degF] Sancho Woodruff Work Phone: [facility] Work Phone: 08-07-2021 10:55-0400 Body weight 72.58 kg Sancho Woodruff Work Phone: [facility] Work Phone: 08-07-2021 10:55-0400 Diastolic blood pressure 82 mm[Hg] Sancho Woodruff Work Phone: [facility] Work Phone: 08-07-2021 10:55-0400 Heart rate 82 /min Sancho Woodruff Work Phone: [facility] Work Phone: 08-07-2021 10:55-0400 SaO2% (BldA) [Mass fraction] 97 % Sancho Woodruff Work Phone: [facility] Work Phone: 08-07-2021 10:55-0400 Systolic blood pressure 136 mm[Hg] Sancho Jaracel Work Phone: [facility] Work Phone: 08-05-2021 11:10-0400 Body temperature 97.3 [degF] Ricky Serjio ., DPM Work Phone: [facility] 08-05-2021 11:10-0400 Diastolic blood pressure 87 mm[Hg] Ricky Serjio Jr., DPM Work Phone: [facility] 08-05-2021 11:10-0400 Heart rate 72 /min Ricky Bassett Jr., DPM Work Phone: [facility] 08-05-2021 11:10-0400 Systolic blood pressure 145 mm[Hg] Ricky Bassett Jr., DPM Work Phone: [facility] 05-06-2021 10:49-0400 Body height 147.32 cm Sancho Jaracel Work Phone: [facility] Work Phone: 05-06-2021 10:49-0400 Body mass index (BMI) [Ratio] 33.56 kg/m2 Sancho Jaracel Work Phone: [facility] Work Phone: 05-06-2021 10:49-0400 Body surface area Derived from formula 1.66 m2 Sancho Jaracel Work Phone: [facility] Work Phone: 05-06-2021 10:49-0400 Body temperature 97.3 [degF] Sancho Rizzo Stencel Work Phone: [facility] Work Phone: 05-06-2021 10:49-0400 Body weight 72.83 kg Sancho Jaracel Work Phone: [facility] Work Phone: 05-06-2021 10:49-0400 Diastolic blood pressure 68 mm[Hg] Sancho Rizzo Stencel Work Phone: [facility] Work Phone: 05-06-2021 10:49-0400 Heart rate 84 /min Sancho Jaracel Work Phone: [facility] Work Phone: 05-06-2021 10:49-0400 SaO2% (BldA) [Mass fraction] 97 % Sancho Jaracel Work Phone: [facility] Work Phone: 05-06-2021 10:49-0400 Systolic blood pressure 118 mm[Hg] Sancho Jaracel Work Phone: [facility] Work Phone: 11-19-2020 10:15-0500 BMI (Body Mass Index) 33.02 kg/m2 [facility] 11-19-2020 10:15-0500 Body weight 71.67 kg [facility] 11-19-2020 10:15-0500 BP Diastolic 77 mm[Hg] [facility] 11-19-2020 10:15-0500 BP Systolic 136 mm[Hg] [facility] 11-19-2020 10:15-0500 Height 147.3 cm [facility] 11-19-2020 10:15-0500 Pulse (Heart Rate) 77 /min [facility] 11-19-2020 10:15-0500 Pulse Oximetry 98 % [facility] 02-12-2020 10:06-0400 BP Diastolic 57 mm[Hg] [facility] 02-12-2020 10:06-0400 BP Systolic 113 mm[Hg] [facility] 02-12-2020 10:06-0400 Pulse (Heart Rate) 52 /min [facility] 02-12-2020 10:06-0400 [facility] 97 % [facility] 02-12-2020 10:06-0400 Respiratory Rate 18 /min [facility] 02-12-2020 07:59-0400 BMI (Body Mass Index) 32.6 kg/m2 [facility] 02-12-2020 07:59-0400 Body Temperature 98.1 [degF] [facility] 02-12-2020 07:59-0400 Body weight 70.76 kg [facility] 02-12-2020 07:59-0400 Height 147.3 cm [facility] 11-30-2019 12:02-0500 Body Temperature 97.81 [degF] Dada Hathaway [facility] 11-30-2019 12:02-0500 BP Diastolic 82 mm[Hg] Dada Allen [facility] 11-30-2019 12:02-0500 BP Systolic 132 mm[Hg] Dada Allen [facility] 11-30-2019 12:02-0500 Pulse (Heart Rate) 80 /min Dada Allen [facility] 11-30-2019 12:02-0500 Pulse Oximetry 97 % Dada Hatahway [facility] 11-30-2019 12:02-0500 Respiratory Rate 16 /min Dada Hathaway [facility] 11-29-2019 14:16-0500 BMI (Body Mass Index) 34.19 kg/m2 Dada Hathaway [facility] 11-29-2019 14:16-0500 Body weight 74.2 kg Dada Hathaway [facility] 11-29-2019 14:16-0500 Height 147.3 cm Dada Hathaway [facility] 11-20-2019 10:20-0500 BMI (Body Mass Index) 34.69 kg/m2 [facility] 11-20-2019 10:20-0500 Body weight 75.3 kg [facility] 11-20-2019 10:20-0500 BP Diastolic 94 mm[Hg] [facility] 11-20-2019 10:20-0500 BP Systolic 149 mm[Hg] [facility] 11-20-2019 10:20-0500 Height 147.3 cm [facility] 11-20-2019 10:20-0500 Pulse (Heart Rate) 63 /min [facility] 11-14-2019 11:29-0500 BMI (Body Mass Index) 34.8 kg/m2 [facility] 11-14-2019 11:29-0500 Body weight 75.52 kg [facility] 11-14-2019 11:29-0500 BP Diastolic 82 mm[Hg] [facility] 11-14-2019 11:29-0500 BP Systolic 131 mm[Hg] [facility] 11-14-2019 11:29-0500 Height 147.3 cm [facility] 11-14-2019 11:29-0500 Pulse (Heart Rate) 73 /min [facility] 11-14-2019 11:29-0500 Pulse Oximetry 96 % [facility] 11-06-2019 14:39-0500 BMI (Body Mass Index) 34.44 kg/m2 [facility] 11-06-2019 14:39-0500 Body weight 74.75 kg [facility] 11-06-2019 14:39-0500 BP Diastolic 56 mm[Hg] [facility] 11-06-2019 14:39-0500 BP Systolic 114 mm[Hg] [facility] 11-06-2019 14:39-0500 Height 147.3 cm [facility] 11-06-2019 14:39-0500 Pulse (Heart Rate) 56 /min [facility] 11-06-2019 14:39-0500 Pulse Oximetry 96 % [facility] Encounters Encounter Date Encounter Type Care Provider Facility Start: 08-26-2025 ambulatory [facility] Facility:[facility] Start: 08-14-2025 ambulatory [facility] Facility:[facility] Start: 08-12-2025 ambulatory [facility] Facility:[facility] Start: 08-05-2025 End: 08-09-2025 ambulatory [facility] Facility:[facility] Start: 08-02-2025 End: 08-02-2025 ambulatory [facility] Start: 07-31-2025 End: 07-31-2025 Patient encounter procedure Dariela Garza MD Work Phone: [facility] Comment on above: Arrived Start: 07-31-2025 End: 07-31-2025 ambulatory DARIELA GARZA [facility] Start: 07-30-2025 End: 07-30-2025 Office outpatient visit 15 minutes Sancho Woodruff MD Work Phone: [facility] Comment on above: Wound of sacral rebecca on, sequela (Primary Dx); DDD (degenerative disc disease), lumbosacral; Lumbar stenosis with neurogenic claudication; Closed fracture of sacrum, unspecified portion of sacrum, initial encounter (Multi); AF (paroxysmal atrial fibrillation) (Multi) Start: 07-30-2025 End: 07-30-2025 ambulatory HUNTLEY Matthias [facility] Start: 07-29-2025 End: 07-29-2025 ambulatory [facility] Start: 07-26-2025 End: 07-26-2025 ambulatory [facility] Start: 07-19-2025 End: 07-19-2025 ambulatory [facility] Start: 07-17-2025 End: 07-17-2025 ambulatory [facility] Start: 07-15-2025 ambulatory [facility] Start: 07-12-2025 End: 07-12-2025 ambulatory [facility] Start: 07-08-2025 End: 07-08-2025 ambulatory [facility] Start: 07-05-2025 End: 07-05-2025 ambulatory [facility] Start: 07-02-2025 ambulatory [facility] Start: 07-02-2025 Non-patient / Non-visit Dr. Sylvia slaughter MD -[facility] Start: 07-01-2025 End: 07-09-[address] Sancho Woodruff MD Work Phone[facility] Start: 07-01-2025 End: 07-09-[address] [facility] Work Phone: Start: 06-28-[address] Sylvia Cool MD -Cat Scan [facility] Work Phone: Start: 06-28-2025 ambulatory Sylvia [facility] Facility:[facility] Start: 06-24-2025 End: 06-24-2025 ambulatory [facility] Start: 06-21-2025 End: 06-25-2025 Refill Wang Borges MD Work Phone: [facility] Comment on above: Medication Refill (P ropafenone ) Start: 06-19-2025 End: 06-19-2025 Patient encounter status Wang Borges MD Work Phone: [facility] Start: 06-19-2025 End: 06-19-2025 Telemedicine consultation with patient Wang Borges MD Work Phone: [facility] Comment on above: 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 Sylvia slaughter MD -[facility] Start: 06-17-2025 ambulatory Sylvia [facility] Start: 06-14-2025 End: 06-14-2025 ambulatory [facility] Start: 06-12-2025 End: 06-12-2025 Office outpatient new 30 minutes Tony Rao DO Work Phone: [facility] Comment on above: Lumbar stenosis with neurogenic claudication (Primary Dx); Lumbar facet arthropathy; Chronic pain syndrome; Myofascial pain Start: 06-12-2025 End: 06-12-2025 ambulatory TONY RAO [facility] Start: 06-12-2025 End: 06-12-2025 ambulatory [facility] Start: 06-07-2025 End: 06-07-2025 ambulatory [facility] Start: 06-05-2025 End: 06-05-2025 ambulatory [facility] Start: 06-03-2025 End: 06-03-2025 ambulatory [facility] Start: 05-31-2025 End: 06-03-2025 ambulatory [facility] Start: 05-30-2025 End: 05-30-2025 ambulatory [facility] Start: 05-27-2025 Non-patient / Non-visit Dr. Sylvia slaughter MD -[facility] Start: 05-27-2025 End: 06-09-[address] Sancho Woodruff MD Work Phone: [facility] Start: 05-27-2025 End: 06-09-[address] [facility] Work Phone: Start: 05-24-2025 End: 05-24-2025 ambulatory [facility] Start: 05-22-2025 End: 05-22-2025 ambulatory [facility] Start: 05-20-2025 Non-patient / Non-visit Dr. Pacheco [facility] Start: 05-17-2025 End: 05-17-2025 ambulatory [facility] Start: 05-15-2025 End: 05-15-2025 ambulatory [facility] Start: 05-13-2025 End: 05-13-2025 ambulatory [facility] Start: 05-10-2025 End: 05-10-2025 ambulatory [facility] Start: 05-08-2025 End: 05-08-2025 ambulatory [facility] Start: 05-07-2025 End: 05-07-2025 ambulatory [facility] Start: 05-06-2025 End: 05-06-2025 ambulatory [facility] Start: 05-03-2025 End: 05-03-2025 ambulatory [facility] Start: 04-30-2025 Non-patient / Non-visit Dr. Sylvia slaughter MD -[facility] Start: 04-29-2025 End: 05-09-[address] Sylvia Cool MD -[facility] Work Phone: Start: 04-29-2025 Non-patient / Non-visit Dr. Sylvia slaughter MD -[facility] Start: 04-29-2025 End: 04-29-2025 Office outpatient visit 15 minutes Dariela Garza MD Work Phone: [facility] Comment on above: LUQ pain (Primary Dx ) Start: 04-29-2025 End: 05-09-[address] Sancho Woodruff MD Work Phone: -[facility] Start: 04-26-2025 End: 04-26-2025 ambulatory [facility] Start: 04-25-2025 End: 04-25-2025 ambulatory [facility] Start: 04-24-2025 End: 04-24-2025 ambulatory [facility] Start: 04-23-2025 End: 04-23-2025 ambulatory [facility] Start: 04-23-2025 Non-patient / Non-visit Dr. Sylvia slaughter MD -[facility] Start: 04-22-2025 ambulatory Sylvia Cool Facility:[facility] Start: 04-22-2025 Non-patient / Non-visit Dr. Sylvia slaughter MD -[facility] Start: 04-19-2025 End: 04-19-2025 Office outpatient visit 15 minutes Dariela Garza MD Work Phone: [facility] Comment on above: Skin ulcer, unspecif ied ulcer stage (Multi) (Primary Dx) Start: 04-19-2025 End: 04-19-2025 [facility] Ambulatory Start: 04-17-2025 End: 04-17-2025 Subsequent hospital visit by physician Faustino Lozano 1 [facility] Comment on above: LUQ pain Start: 04-17-2025 End: 04-17-2025 ambulatory SANCHO WOODRUFF [facility] Start: 04-15-2025 End: 04-15-2025 ambulatory [facility] Start: 04-10-2025 End: 04-10-2025 [facility] Start: 04-05-2025 End: 04-05-2025 [facility] Ambulatory Start: 04-05-2025 End: 04-05-2025 Office outpatient visit 15 minutes Dariela Garza MD Work Phone: [facility] Comment on above: Skin ulcer, unspecif ied ulcer stage (Multi) (Primary Dx) Start: 04-03-2025 End: 04-03-2025 Assay of hemosiderin, quant Sancho Woodruff MD Work Phone: [facility] Work Phone: Start: 04-03-2025 End: 04-03-2025 Office outpatient visit 25 minutes Sancho Woodruff MD Work Phone: [facility] Comment on above: Lumbar stenosis with neurogenic claudication (Primary Dx); LUQ pain; Controlled drug dependence (Multi); Routine general medical examination at health care facility; Skin ulcer, unspecified ulcer stage (Multi); Closed fracture of sacrum, unspecified portion of sacrum, initial encounter (Multi); AF (paroxysmal atrial fibrillation) (Multi); Mixed hyperlipidemia; Acquired hypothyroidism Start: 04-03-2025 End: 04-03-2025 ambulatory [facility] Start: 04-01-2025 End: 04-01-2025 ambulatory [facility] Start: 03-29-2025 End: 03-29-2025 ambulatory [facility] Start: 03-27-2025 End: 03-27-2025 [facility] Start: 03-22-2025 End: 03-22-2025 ambulatory [facility] Start: 03-20-2025 End: 03-20-2025 ambulatory [facility] Start: 03-15-2025 End: 03-15-2025 ambulatory [facility] Start: 03-13-2025 End: 03-13-2025 [facility] Start: 03-11-2025 End: 03-11-2025 [facility] Start: 03-06-2025 End: 03-06-2025 ambulatory [facility] Start: 03-01-2025 End: 03-01-2025 [facility] Ambulatory Start: 02-27-2025 End: 02-27-2025 [facility] Start: 02-25-2025 End: 02-25-2025 [facility] Start: 02-22-2025 End: 02-22-2025 ambulatory [facility] Start: 02-20-2025 End: 02-20-2025 ambulatory [facility] Start: 02-15-2025 End: 02-15-2025 ambulatory [facility] Start: 02-13-2025 End: 02-13-2025 [facility] Start: 02-11-2025 End: 02-11-2025 [facility] Start: 02-08-2025 End: 02-08-2025 [facility] Start: 02-06-2025 End: 02-06-2025 Subsequent hospital visit by physician Faustino Ct 1 [facility] Comment on above: Skin ulcer, unspecif ied ulcer stage (Multi) Start: 02-06-2025 End: 02-06-2025 [facility] Start: 02-06-2025 End: 02-06-2025 [facility] Start: 02-01-2025 End: 02-01-2025 Office outpatient visit 15 minutes Draiela Garza MD Work Phone: [facility] Comment on above: Skin ulcer, unspecif ied ulcer stage (Multi) (Primary Dx) Start: 02-01-2025 End: 02-01-2025 [facility] Ambulatory Start: 01-30-2025 End: 01-30-2025 [facility] Start: 01-28-2025 End: 01-28-2025 [facility] Start: 01-25-2025 End: 01-25-2025 [facility] Start: 01-23-2025 End: 01-23-2025 [facility] Start: 01-21-2025 End: 01-21-2025 Subsequent hospital visit by physician Faustino X-Dewayne Fluoro 1 [facility] Comment on above: Skin ulcer, unspecif ied ulcer stage (Multi) Start: 01-21-2025 End: 01-21-2025 [facility] Start: 01-18-2025 End: 01-18-2025 [facility] Ambulatory Start: 01-18-2025 End: 01-18-2025 Office outpatient new 30 minutes Dariela Garza MD Work Phone: [facility] Comment on above: Skin ulcer, unspecif ied ulcer stage (Multi) Start: 01-01-2025 End: 01-01-2025 Assay of hemosiderin, marina Woodruff MD Work Phone: [facility] Work Phone: Start: 01-01-2025 End: 01-01-2025 Patient encounter procedure Sancho Woodruff MD Work Phone: [facility] Comment on above: Routine general medi christin examination at health care facility (Primary Dx); Lumbar stenosis with neurogenic claudication; Controlled drug dependence (Multi); Exudative age-related macular degeneration, left eye, with active choroidal neovascularization; Vitreous hemorrhage, left eye (Multi); Hepatic cirrhosis, unspecified hepatic cirrhosis type, unspecified whether ascites present (Multi); Degeneration of intervertebral disc of lumbosacral region with discogenic back pain; Skin ulcer, unspecified ulcer stage (Multi) Start: 01-01-2025 End: 01-01-2025 ambulatory [facility] Ambulatory Start: 01-01-2025 End: 01-01-2025 Encounter for general adult medical examination without abnormal findings [facility] Ambulatory Start: 12-12-2024 End: 12-12-2024 Office outpatient visit 25 minutes Wang Borges MD Work Phone: [facility] Comment on above: Paroxysmal atrial fi brillation (HCC) (Primary Dx); Primary hypertension; Coronary artery disease involving [place] coronary artery of [place] heart without angina pectoris; Dyslipidemia Start: 12-12-2024 End: 12-12-[address] [facility] Start: 11-20-2024 End: 11-20-2024 ambulatory [facility] Start: 11-05-2024 ambulatory [facility] Start: 11-02-2024 End: 11-05-2024 Admission to same day surgery center Anna Bassett RN [facility] Comment on above: Cervical radiculopat hy (Primary Dx) Start: 10-30-2024 End: 10-30-2024 Office outpatient visit 25 minutes Jose A Ornelas CNP Work Phone: [facility] Comment on above: Cervicalgia (Primary Dx); Lumbar spondylolysis; Cervical radiculopathy; Cervical spondylosis Start: 10-30-2024 End: 10-30-2024 ambulatory JOSE A ORNELAS [facility] Ambulato [facility] Start: 10-18-2024 End: 10-18-2024 Refill Wang Borges MD Work Phone: [facility] Comment on above: Medication Refill (R osuvastatin ) Start: 10-08-2024 End: 10-08-2024 Clinical Support Christine Voss [employer] Work Phone: [facility] Comment on above: 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 (Primary Dx); Rotator cuff disorder, left; Trochanteric bursitis of left hip Start: 10-08-2024 End: 10-08-2024 ambulatory CHRISTINE VOSS [facility] Amb[facility] Start: 08-17-2024 End: 08-17-2024 ambulatory [facility] Start: 08-13-2024 End: 08-13-2024 ambulatory [facility] Ambulatory Start: 08-13-2024 End: 08-13-2024 Office outpatient visit 25 minutes Sancho Woodruff MD Work Phone: [facility] Comment on above: DDD (degenerative di sc disease), lumbosacral (Primary Dx); Lumbar stenosis with neurogenic claudication; Closed fracture of sacrum, unspecified portion of sacrum, initial encounter (Multi); Iron deficiency anemia, unspecified iron deficiency anemia type; Unexplained weight loss Start: 07-11-2024 End: 07-11-2024 ambulatory JAYLAN DANIS [facility] Start: 06-01-2024 End: 06-01-2024 Clinical Support Sujata Bradford [employer] Work Phone: [facility] Comment on above: 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 (Primary Dx); Trochanteric bursitis of left hip Start: 05-11-2024 End: 05-11-2024 Admission to same day surgery center Jaylankhadra Rodrigezta DO Work Phone: [facility] Comment on above: Cervical radiculopat hy (Primary Dx) Start: 05-11-2024 End: 05-11-2024 Office outpatient visit 25 minutes [employer] Work Phone: [facility] Comment on above: Cervical radiculopat hy (Primary Dx) Start: 04-19-2024 End: 04-19-2024 Refill Joanne Quan [facility] Comment on above: Medication Refill Start: 04-16-2024 End: 04-16-2024 Office outpatient visit 15 minutes Sancho Woodruff MD Work Phone: [facility] Comment on above: AF (paroxysmal atria l fibrillation) ([facility]); DDD (degenerative disc disease), lumbosacral; Lumbar stenosis with neurogenic claudication; Closed fracture of sacrum, unspecified portion of sacrum, initial encounter ([facility]) Start: 04-05-2024 End: 04-05-[address] [facility] Start: 03-13-2024 End: 03-13-2024 Subsequent hospital visit by physician Faustino X-Ray 1 [facility] Comment on above: Acute pain of left k nee Start: 03-12-2024 End: 03-12-2024 Office outpatient visit 15 minutes Sancho Woodruff MD Work Phone: [facility] Comment on above: Acute pain of left k nee (Primary Dx); Chronic liver disease and cirrhosis (Multi) Start: 02-22-2024 End: 02-22-2024 Office outpatient new 45 minutes Admitly DO Work Phone: [facility] Comment on above: Cervical radiculopat hy (Primary Dx); Cervicalgia Start: 01-16-2024 End: 01-16-2024 Assay of hemosiderin, quant Sancho Woodruff MD Work Phone: [facility] Work Phone: Start: 01-16-2024 End: 01-16-2024 Office outpatient visit 15 minutes Sancho Woodruff MD Work Phone: [facility] Comment on above: AF (paroxysmal atria l fibrillation) (CMS/HCC); Gastrointestinal hemorrhage, unspecified gastrointestinal hemorrhage type; DDD (degenerative disc disease), lumbosacral; Lumbar stenosis with neurogenic claudication; Mixed hyperlipidemia; Iron deficiency anemia, unspecified iron deficiency anemia type; Acquired hypothyroidism; Routine general medical examination at health care facility; Acute UTI Start: 12-21-2023 End: 12-21-2023 Office outpatient visit 25 minutes Jose A Ornelas CNP Work Phone: [facility] Comment on above: Rotator cuff disorde r, right (Primary Dx); Cervicalgia Start: 11-15-2023 End: 11-15-2023 Office outpatient visit 25 minutes Jose A Ornelas CNP Work Phone: [facility] Comment on above: Cervical radicular p ain (Primary Dx); Cervicalgia; Rotator cuff disorder, right; Rotator cuff disorder, left Start: 10-13-2023 End: 10-13-2023 Assay of hemosiderin, quant Sancho Woodruff MD Work Phone: [facility] Work Phone: Start: 10-13-2023 End: 10-13-2023 Patient encounter procedure Sancho Woodruff MD Work Phone: [facility] Comment on above: Routine general medi christin examination at health care facility (Primary Dx); AF (paroxysmal atrial fibrillation) (CMS/[facility]); Gastrointestinal hemorrhage, unspecified gastrointestinal hemorrhage type; DDD (degenerative disc disease), lumbosacral; Lumbar stenosis with neurogenic claudication; Mixed hyperlipidemia; Iron deficiency anemia, unspecified iron deficiency anemia type; Acquired hypothyroidism; Acute UTI Start: 10-13-2023 End: 10-13-2023 Clinical Support Christine Voss [employer] Work Phone: [facility] Comment on above: Rotator cuff disorde r, left (Primary Dx) Start: 10-12-2023 End: 10-12-2023 ambulatory [facility] Start: 10-11-2023 End: 10-11-2023 ambulatory [facility] Start: 08-24-2023 Gisselle phillip RN [facility] Start: 07-18-2023 End: 07-18-2023 Postop follow up visit related to original px Dada Deniz Gee PA-C Work Phone: [facility] Comment on above: Sacral insufficiency fracture with delayed healing (Primary Dx) Start: 07-07-2023 End: 07-07-2023 Office outpatient visit 25 minutes Sancho Woodruff MD Work Phone: [facility] Comment on above: Iron deficiency anem ia, unspecified iron deficiency anemia type (Primary Dx); AF (paroxysmal atrial fibrillation) (CMS/HCC); Gastrointestinal hemorrhage, unspecified gastrointestinal hemorrhage type; DDD (degenerative disc disease), lumbosacral; Lumbar stenosis with neurogenic claudication; Mixed hyperlipidemia; Acquired hypothyroidism Start: 06-15-2023 End: 06-15-2023 Postop follow up visit related to original px Shawn Mcmillan PA-C Work Phone: [facility] Comment on above: Sacroiliac dysfuncti on (Primary Dx) Start: 06-09-2023 End: 06-09-2023 Office outpatient visit 15 minutes Sancho Woodruff MD Work Phone: [facility] Comment on above: Cellulitis of left l ower extremity (Primary Dx) Start: 06-03-2023 End: 06-03-2023 Clinical Support Kendra Mena RN [facility] Comment on above: Sacral insufficiency fracture with delayed healing (Primary Dx) Start: 05-27-2023 Documentation procedure Kendra Mena RN [facility] Start: 05-27-2023 End: 05-27-2023 Postop follow up visit related to original px Bridger Monique MD Work Phone: [facility] Comment on above: Sacral insufficiency fracture with delayed healing (Primary Dx) Start: 05-26-2023 End: 05-26-2023 Clinical Support Kendra Mena RN [facility] Comment on above: Sacral insufficiency fracture with delayed healing (Primary Dx) Start: 05-23-2023 End: 05-23-2023 Clinical Support Kendra Mena RN [facility] Comment on above: Sacral insufficiency fracture with delayed healing (Primary Dx) Start: 05-22-2023 End: 05-22-2023 Emergency department patient visit BIMAL PTATEN PATTERSON [facility] Start: 05-19-2023 End: 05-19-2023 Evaluation and management of inpatient Luis M Garza MD Work Phone: [facility] Start: 05-19-2023 End: 05-19-2023 Evaluation and management of inpatient Bridger Monique MD Work Phone: [facility] Start: 05-05-2023 Orders Only Beatriz Holloway RN [facility] Start: 05-05-2023 End: 05-05-2023 Office outpatient new 45 minutes Sancho Woodruff MD Work Phone: [facility] Preadmission Testing Comment on above: Pre-op testing; Sacral insufficiency fracture with delayed healing; Primary hypertension; Paroxysmal atrial fibrillation (HCC); Coronary artery disease involving [place] coronary artery of [place] heart without angina pectoris; Dyslipidemia; Hypothyroidism, unspecified type; Gastroesophageal reflux disease, unspecified whether esophagitis present; Pre-op examination Start: 05-05-2023 End: 05-05-2023 Patient encounter status Sancho Woodruff MD Work Phone: [facility] Work Phone: Start: 05-05-2023 End: 05-05-2023 Preprocedural examination done Sancho Woodruff MD Work Phone: [facility] Start: 04-18-2023 Refill Jonas Johnston MA [facility] Comment on above: Medication Refill Start: 04-14-2023 End: 04-14-2023 Office outpatient new 30 minutes Sancho Woodruff MD Work Phone: [facility] Comment on above: Sacral insufficiency fracture with delayed healing; Spinal stenosis, lumbar region, without neurogenic claudication Start: 04-11-2023 End: 04-11-2023 Office outpatient visit 25 minutes Sancho Woodruff MD Work Phone: [facility] Comment on above: Paroxysmal atrial fi brillation (HCC) (Primary Dx); PAF (paroxysmal atrial fibrillation) (HCC); Primary hypertension; Coronary artery disease involving [place] coronary artery of [place] heart without angina pectoris; Dyslipidemia Start: 04-05-2023 End: 04-05-2023 Office outpatient visit 25 minutes Sancho Woodruff MD Work Phone: [facility] Comment on above: AF (paroxysmal atria l fibrillation) (CMS/HCC) (Primary Dx); Gastrointestinal hemorrhage, unspecified gastrointestinal hemorrhage type; DDD (degenerative disc disease), lumbosacral; Lumbar stenosis with neurogenic claudication; Mixed hyperlipidemia Start: 03-28-2023 Office outpatient vi sit 15 minutes Sancho Woodruff Work Phone: -[facility] 120 Work Phone: Start: 03-28-[address] Oksana Ocampo [facility] ity:[id number] Start: 03-24-2023 Patient encounter procedure Sancho Woodruff Work Phone: [facility] Work Phone: Start: 03-24-2023 ambulatory Burt Roland y:[id number] Start: 03-04-2023 End: 03-04-[address] Maria Teresa Epperson Facility:[id number] Start: 03-04-2023 End: 03-04-2023 Subsequent hospital visit by physician Maria Teresa Epperson MD Work Phone: [facility] Comment on above: Lesion of sciatic ne rve, right lower limb; half-way (current) use of aspirin; Pain, unspecified Start: 02-18-2023 End: 02-18-[address] 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, including canthus Start: 02-17-2023 End: 02-17-2023 Office outpatient visit 25 minutes Sancho Woodruff MD Work Phone: [facility] Comment on above: Gastrointestinal hem orrhage, unspecified gastrointestinal hemorrhage type (Primary Dx); AF (paroxysmal atrial fibrillation) (CMS/HCC); Malignant neoplasm of uterus, unspecified site (CMS/HCC); Closed fracture of sacrum, unspecified portion of sacrum, sequela; Severe obesity with body mass index (BMI) of 35.0 to 39.9 with serious comorbidity (CMS/HCC); Chronic liver disease and cirrhosis (CMS/HCC) Start: 02-14-2023 Transcribe Orders Sancho Woodruff MD Work Phone: [facility] Comment on above: Lumbar neuritis (Sandy dariela Dx); DDD (degenerative disc disease), lumbosacral Start: 01-17-2023 End: 01-21-2023 Evaluation and management of inpatient DO SHAHID COLUNGA Facility:[id number] Start: 01-17-2023 End: 01-21-2023 Evaluation and management of inpatient Shahid Colunga [facility] 3 Med Surg [facility] [id number] Start: 01-06-2023 ambulatory Burt Roland y:[id number] Start: 01-06-2023 FUV, Provider: Burt Gonzalez, Status: Pen, Time: 1:00 PM Sancho Woodruff Work Phone: [facility] Work Phone: Start: 01-06-2023 Chart Update Sancho damon Work Phone: [facility] Work Phone: Start: 01-05-2023 Chart Update Sancho damon Work Phone: [facility] Work Phone: Start: 01-05-2023 PTFUADULT4, Provider : Cecilia Richardson, Status: Pen, Time: 2:45 PM Sancho Woodruff Work Phone: [facility] Work Phone: Start: 01-04-[address] Maria Teresa Dowling tthew Zumbar Facility:[id number] Start: 01-03-2023 AUDIT Sancho Jara abdirizak Work Phone: [facility] Work Phone: Start: 12-31-2022 ambulatory Burt Gonzalez Facilit y:[id number] Start: 12-29-2022 ambulatory Burt Gonzalez Facilit y:[id number] Start: 12-29-2022 Patient encounter procedure Sancho Woodruff Work Phone: [facility] Work Phone: Start: 2022 Documentation procedure Meryl Kearns LPN [facility] Start: 2022 End: 2022 Office outpatient visit 5 minutes Christine Voss [employer] Work Phone: [facility] Comment on above: Bursitis of right hi p, unspecified bursa (Primary Dx); DDD (degenerative disc disease), lumbar Start: 12-15-2022 Patient encounter procedure Sancho Woodruff Work Phone: [facility] Work Phone: Start: 12-15-[address] Sancho Nagy Facility:[id number] Start: 12-13-[address] Sancho Nagy Facility:[id number] Start: 12-08-2022 Patient encounter procedure Sancho Woodruff Work Phone: [facility] Work Phone: Start: 12-08-2022 [email or web address], Provider : Elina Diaz, Status: Pen, Time: 3:15 PM Sancho Woodruff Work Phone: [facility] Work Phone: Start: 12-07-2022 AUDIT Sancho damon Work Phone: [facility] Work Phone: Start: 12-06-[address] Sancho Nagy Facility:[id number] Start: 12-03-2022 Chart Update Sancho damon Work Phone: [facility] Work Phone: Start: 12-01-[address] Sancho Nagy Facility:[id number] Start: 12-01-2022 Patient encounter procedure Sancho Woodruff Work Phone: [facility] [place] Work Phone: Start: 11-22-2022 Patient encounter procedure [facility]ancho Woodruff [facility] [place] Work Phone: Start: 11-18-2022 EPV, Provider: Sancho Woodruff, Status: Pen, Time: 2:40 PM Sancho Woodruff Work Phone: [facility] Work Phone: Start: 11-18-[address] Sancho Nagy Facility:[id number] Start: 11-17-2022 Patient encounter procedure Sancho Woodruff [facility] Work Phone: Start: 11-17-2022 PTEVAADULT, Provider : Elina Diaz, Status: Pen, Time: 2:45 PM Sancho Woodruff Work Phone: [facility] Work Phone: Start: 11-17-[address] Sancho Nagy Facility:[id number] Start: 11-17-2022 Chart Update Sancho damon Work Phone: [facility] Work Phone: Start: 11-15-2022 Chart Update Sancho damon Work Phone: [facility] Work Phone: Start: 11-08-2022 JANUSZ, Provider : Larisa Walker, Status: Pen, Time: 2:00 PM Sancho Matthias Estefanicel Work Phone: [facility] Work Phone: Start: 11-07-2022 AUDIT Sancho Matthias Sten abdirizak Work Phone: [facility] Work Phone: Start: 11-04-2022 Office outpatient vi sit 25 minutes Sancho Matthias Stencel Work Phone: [facility] Work Phone: Start: 11-04-[address] Sancho Nagy Facility:[id number] Start: 09-13-2022 AUDIT Sancho Matthias Sten abdirizak Work Phone: [facility] Work Phone: Start: 09-09-2022 End: 09-09-2022 Emergency department patient visit Xin Pereira [facility] 13 Start: 09-06-2022 AUDIT Sancho Matthias Sten abdirizak Work Phone: [facility] Work Phone: Start: 08-20-2022 AUDIT Sancho Matthias Estefani abdirizak Work Phone: [facility] Work Phone: Start: 08-13-2022 Chart Update Sancho Matthias Sten abdirizak Work Phone: [facility] Work Phone: Start: 08-12-[address] Sancho Nagy Facility:[id number] Start: 08-10-2022 Chart Update Sancho Jara abdirizak Work Phone: [facility] Work Phone: Start: 08-03-2022 Office outpatient vi sit 25 minutes Sancho Jaracel Work Phone: [facility] Work Phone: Start: 06-28-2022 Chart Update Sancho Rizzo Sten abdirizak Work Phone: [facility] 120 Work Phone: Start: 06-22-2022 Orders Only Sancho Castaneda MD Work Phone: [facility] Comment on above: Pain (Primary Dx) Start: 06-16-2022 End: 06-16-2022 ambulatory Oksana Flores Facility:[id number] Start: 06-04-2022 AUDIT Sancho Rizzo Sten abdirizak Work Phone: [facility] Work Phone: Start: 05-25-2022 Adv care pln/ no alt dcsn mkr docd or refusal Sancho Jaracel Work Phone: [facility] Work Phone: Start: 05-17-2022 Office outpatient vi sit 15 minutes Sancho Jaracel Work Phone: -[employer] [facility] Work Phone: Start: 05-13-2022 End: 05-13-2022 Clinical Support Christine Voss CNP Work Phone: [facility] Comment on above: Rotator cuff disorde r, left (Primary Dx) Start: 05-04-2022 Office outpatient vi sit 15 minutes Sancho Rizzo Stencel Work Phone: -[facility] [employer] [facility] [employer] [facility] Work Phone: Start: 04-28-2022 End: 04-28-2022 Clinical Support Christine Voss CNP Work Phone: [facility] Comment on above: Greater trochanteric bursitis of left hip (Primary Dx) Start: 04-08-2022 AUDIT Sancho Rizzo Sten abdirizak Work Phone: [facility] Work Phone: Start: 03-12-2022 End: 03-12-2022 Clinical Support Wagn Borges MD Work Phone: [facility] Comment on above: Atrial fibrillation, unspecified type (HCC) Start: 03-09-2022 End: 03-09-2022 Office outpatient visit 25 minutes Wang Borges MD Work Phone: [facility] Comment on above: Atrial fibrillation, unspecified type (HCC) (Primary Dx); Primary hypertension; Coronary artery disease involving [place] coronary artery of potter [place] heart without angina pectoris; Dyslipidemia Start: 02-10-2022 End: 02-10-2022 Clinical Support Christine Voss CNP Work Phone: [facility] Comment on above: Rotator cuff disorde r, left (Primary Dx) Start: 02-03-2022 Office outpatient vi sit 15 minutes Sancho Rizzo Stencel Work Phone: [employer] [facility] Work Phone: Start: 01-27-2022 End: 01-27-2022 Clinical Support Christine Voss CNP Work Phone: [facility] Comment on above: Greater trochanteric bursitis of left hip (Primary Dx) Start: 01-25-2022 AUDIT Sancho Matthias Sten abdirizak Work Phone: [employer] [facility] Work Phone: Start: 01-07-2022 Chart Update Sancho D Sten abdirizak Work Phone: [employer] [facility] Work Phone: Start: 01-04-2022 Chart Update Sancho D Sten abdirizak Work Phone: [employer] [facility] Work Phone: Start: 01-04-2022 Office outpatient vi sit 25 minutes Sancho Matthias Stencel Work Phone: [employer] [facility] Work Phone: Start: 12-21-2021 AUDIT Sancho D Sten abdirizak Work Phone: [facility] Work Phone: Start: 12-09-2021 Refill Wang victoria MD Work Phone: [facility] Comment on above: Medication Refill (A torvastatin ) Start: 11-19-2021 AUDIT Sancho Jara abdirizak Work Phone: [facility] Work Phone: Start: 11-13-2021 Chart Update Sancho Jara abdirizak Work Phone: [facility] Work Phone: Start: 11-05-2021 Office outpatient vi sit 25 minutes Sancho Woodruff Work Phone: [facility] Work Phone: Start: 10-19-2021 AUDIT Sancho Jara abdirizak Work Phone: [facility] Work Phone: Start: 10-13-2021 End: 10-13-2021 Clinical Support Christine Voss CNP Work Phone: [facility] Comment on above: Greater trochanteric bursitis of left hip (Primary Dx); Rotator cuff disorder, left Start: 10-12-2021 Chart Update Sancho Jara abdirizak Work Phone: [facility] Work Phone: Start: 09-08-2021 AUDIT Sancho Jara abdirizak Work Phone: [facility] Work Phone: Start: 08-28-2021 Chart Update Sancho Jara abdirizak Work Phone: [facility] Work Phone: Start: 08-27-2021 AUDIT Sancho Jara abdirizak Work Phone: [facility] Work Phone: Start: 08-24-2021 Chart Update Sancho Rizzo Sten abdirizak Work Phone: [facility] Work Phone: Start: 08-13-2021 AUDIT Sancho Rizzo Sten abdirizak Work Phone: [facility] Work Phone: Start: 08-07-2021 Office outpatient vi sit 15 minutes Sancho Rizzo Stencel Work Phone: [facility] Work Phone: Start: 08-05-2021 End: 08-05-2021 Office outpatient visit 15 minutes Ricky Bassett DPM Work Phone: [facility] Pod[facility] Comment on above: Peripheral vascular disease, unspecified (HCC) (Primary Dx); Corns Start: 06-23-2021 End: 06-23-2021 Office outpatient visit 25 minutes Christine Voss CNP Work Phone: [facility] Comment on above: Greater trochanteric bursitis of left hip (Primary Dx) Start: 06-09-2021 AUDIT Sancho Rizzo Sten abdirizak Work Phone: [facility] Work Phone: Start: 05-06-2021 Office outpatient vi sit 25 minutes Sancho Rizzo Stencel Work Phone: [facility] Work Phone: Start: 05-04-2021 Chart Update Sancho Rizzo Sten abdirizak Work Phone: [facility] Work Phone: Start: 04-17-2021 AUDIT Sanhco Rizzo Sten abdirizak Work Phone: [facility] Work Phone: Start: 02-25-2021 End: 02-25-2021 Clinical Support Christine Voss CNP Work Phone: [facility] Comment on above: Rotator cuff disorde r, left (Primary Dx) Start: 12-22-2020 End: 12-22-2020 Orders Only Dariela Santillan [facility] Office Comment on above: Liver cirrhosis seco ndary to MATTHEW (HCC) (Primary Dx) Start: 12-09-2020 End: 12-09-2020 Documentation procedure Dariela Santillan [facility] Office Start: 11-28-2020 End: 11-28-2020 Office outpatient visit 10 minutes Dada Hathaway Work Phone: [facility] Comment on above: Status post reverse total shoulder replacement, right (Primary Dx) Start: 11-19-2020 End: 11-19-2020 Orders Only Dariela Santillan [facility] Office Comment on above: Atrial fibrillation, unspecified type (HCC) (Primary Dx) Start: 11-19-2020 End: 11-26-2020 Office outpatient visit 25 minutes Wang Juan Borges Work Phone: [facility] Office Comment on above: Essential hypertensi on (Primary Dx); Atrial fibrillation, unspecified type (HCC); Coronary artery disease involving [place] coronary artery of [place] heart without angina pectoris; Dyslipidemia Start: 10-31-2020 End: 10-31-2020 Orders Only Elisha Del Castillo Work Phone: [facility] Start: 08-04-2020 Patient encounter procedure Sancho Woodruff [facility] 120 Work Phone: Start: 05-22-2020 End: 05-22-2020 Clinical Support Christine Voss Work Phone: [facility] Comment on above: Rotator cuff disorde r, left (Primary Dx) Start: 04-03-2020 Patient encounter procedure [facility]anch[facility] Work Phone: Start: 02-20-2020 End: 02-20-2020 Patient encounter procedure Christine Voss Work Phone: [facility] Comment on above: Rotator cuff disorde r, left (Primary Dx) Start: 02-12-2020 End: 02-12-2020 Subsequent hospital visit by physician Wang Borges Work Phone: [facility] CT Scan Comment on above: Atrial fibrillation, unspecified type (HCC) Start: 01-14-2020 End: 01-14-2020 Postop follow up visit related to original px Dada Anant Hathaway Work Phone: [facility] Comment on above: Status post reverse total shoulder replacement, right (Primary Dx) Start: 12-18-2019 Patient encounter procedure Sancho Woodruff [facility] Work Phone: Start: 12-17-2019 End: 12-17-2019 Postop follow up visit related to original px Dada Anant Hathaway Work Phone: [facility] Comment on above: Status post reverse total shoulder replacement, right (Primary Dx) Start: 12-06-2019 End: 12-06-2019 Documentation procedure Amanda Christina [facility] Start: 11-29-2019 End: 11-30-2019 Evaluation and management of inpatient Dada Anant Hathaway Work Phone: [facility] Med Surg Orthopedics Comment on above: S/P reverse total sh oulder arthroplasty, right (Primary Dx); Rotator cuff disorder, right Start: 11-20-2019 End: 11-20-2019 Subsequent hospital visit by physician Wang Borges Work Phone: [facility] Comment on above: Arrived Preop cardiovascular exam; Atrial fibrillation, unspecified type (HCC); Essential hypertension Start: 11-14-2019 Patient encounter status Rajni Voss CNP Work Phone: [facility] Start: 11-14-2019 Encounter for preprocedural cardiovascular examination WANG BORGES [facility] Ambulatory Start: 11-14-2019 End: 11-14-2019 Office outpatient visit 15 minutes Dada Hathaway Work Phone: [facility] Office Comment on above: Preop cardiovascular exam (Primary Dx); Rotator cuff disorder, right; Atrial fibrillation, unspecified type (HCC); Essential hypertension Start: 11-06-2019 End: 11-06-2019 Patient encounter procedure Dada Hathaway Work Phone: [facility] Preadmission Testing Comment on above: Rotator cuff disorde r, right; Hypertension, unspecified type Start: 10-22-2019 End: 10-22-2019 Office outpatient visit 10 minutes Dada Ny Allen Work Phone: [facility] Comment on above: Rotator cuff disorde r, right (Primary Dx); Rotator cuff disorder, left Start: 10-08-2019 End: 10-08-2019 Subsequent hospital visit by physician Sancho Woodruff Work Phone: [facility] Mammography Comment on above: Breast cancer screen ing by mammogram Start: 09-26-2019 End: 09-26-2019 Treatment Dada Ny Allen [facility] Comment on above: Rotator cuff disorde r, right (Primary Dx); Rotator cuff disorder, left Start: 09-25-2019 End: 09-26-2019 Patient encounter procedure PROVIDER NOT IN [facility] Start: 09-25-2019 End: 09-25-2019 Subsequent hospital visit by physician Provider Not In [facility] Radiology External Films Comment on above: Arrived Start: 09-19-2019 End: 09-19-2019 Treatment [facility] Gianghard [facility] Comment on above: Rotator cuff disorde r, right (Primary Dx); Rotator cuff disorder, left Start: 09-17-2019 End: 09-17-2019 Treatment [facility]ada Gianghard [facility] Comment on above: Rotator cuff disorde r, right (Primary Dx); Rotator cuff disorder, left Start: 09-17-2019 Patient encounter procedure Sancho Woodruff [facility] Work Phone: Start: 09-11-2019 End: 09-11-2019 Treatment Dada Anant Hathaway [facility] Comment on above: Rotator cuff disorde r, right (Primary Dx); Rotator cuff disorder, left Start: 09-04-2019 End: 09-04-2019 Treatment Dada Hathaway Work Phone: [facility] Comment on above: Rotator cuff disorde r, right (Primary Dx); Rotator cuff disorder, left Start: 08-28-2019 End: 08-28-2019 Treatment [facility]ada Hathaway [facility] Comment on above: Rotator cuff disorde r, right (Primary Dx); Rotator cuff disorder, left Start: 08-23-2019 End: 08-23-2019 Treatment Dada Hathaway [facility] Comment on above: Rotator cuff disorde r, right (Primary Dx); Rotator cuff disorder, left Start: 08-14-2019 End: 08-14-2019 Treatment Dada Hathaway [facility] Comment on above: Rotator cuff disorde r, right (Primary Dx); Rotator cuff disorder, left Start: 08-09-2019 End: 08-09-2019 Treatment Dada Hathaway Work Phone: [facility] Comment on above: Rotator cuff disorde r, right (Primary Dx); Rotator cuff disorder, left Start: 08-07-2019 End: 08-07-2019 Treatment Dada Hathaway [facility] Comment on above: Rotator cuff disorde r, right (Primary Dx); Rotator cuff disorder, left Start: 08-03-2019 End: 08-03-2019 Treatment Dada Hathaway [facility] Comment on above: Rotator cuff disorde r, right (Primary Dx); Rotator cuff disorder, left Start: 08-01-2019 End: 08-01-2019 Evaluation Dada Hathaway [facility] Comment on above: Rotator cuff disorde r, left; Rotator cuff disorder, right Start: 06-25-2019 End: 06-25-2019 Office outpatient visit 15 minutes Dada Hathaway Work Phone: [facility] Comment on above: Bursitis/tendonitis, shoulder (Primary Dx); Rotator cuff arthropathy, right; Left shoulder pain, unspecified chronicity; Lumbar and sacral arthritis Start: 03-19-2019 End: 03-19-2019 Postop follow up visit related to original px Dada Hathaway Work Phone: [facility] Comment on above: Bursitis/tendonitis, shoulder (Primary Dx); Rotator cuff arthropathy, right; Left shoulder pain, unspecified chronicity Start: 09-04-2018 End: 09-04-2018 Postop follow up visit related to original px Dada Hathaway Work Phone: [facility] Comment on above: Bursitis/tendonitis, shoulder (Primary Dx); Rotator cuff arthropathy, right Start: 04-24-2018 End: 04-24-2018 Office outpatient visit 10 minutes Dada Hathaway Work Phone: [facility] Start: 04-20-2018 Patient encounter Denisse Streeter cility:[place] Start: 04-20-2018 End: 04-20-2018 Patient encounter Denisse Streeter Work Phone: [facility] Start: 01-02-2018 Postop follow-up visit Dada Hathaway Work Phone: [facility] Procedures Date Procedure Procedure Detail Performing Clinician Start: 07-30-2025 Ecg routine ecg w/least 12 lds w/i&r Sancho Woodruff MD Work Phone: Start: 06-28-2025 CT of pelvis with contrast Dr. Sancho Woodruff MD Work Phone: Start: 04-15-2025 Lipid 1996 panel - Serum or Plasma [facility] 1 Start: 04-15-2025 Thyrotropin [Units/volume] in Serum or Plasma [facility] 1 Start: 03-01-2025 Follow-up visit Follow-up DARIELA GARZA Start: 01-21-2025 Radiologic examination pelvis 1/2 views Dariela Garza MD Work Phone: Start: 12-12-2024 Ecg routine ecg w/least 12 lds w/i&r Wang Juan Borges MD Work Phone: Start: 10-08-2024 Arthrocentesis aspir&/inj major jt/bursa w/o us Christine Voss [employer] Work Phone: Start: 06-01-2024 Arthrocentesis aspir&/inj major jt/bursa w/o us Sujata Bradford [employer] Work Phone: Start: 10-13-2023 Arthrocentesis aspir&/inj major jt/bursa w/o us Christine Voss [employer] Work Phone: Start: 10-13-2023 Drugs of abuse screen W Reflex confirm panel - Urine Sancho Woodruff MD Work Phone: Start: 10-12-2023 CBC panel - Blood by Automated count SANCHO WOODRUFF Start: 10-12-2023 Thyrotropin [Units/volume] in Serum or Plasma Sancho Woodruff MD Work Phone: Start: 07-11-2023 Lipid 1996 panel - Serum or Plasma Maria Teresa Epperson MD Work Phone: Start: 07-11-2023 Thyrotropin [Units/volume] in Serum or Plasma Maria Teresa Epperson MD Work Phone: Start: 05-19-2023 Packed RBC preparation Bridger Monique MD Work Phone: Start: 05-19-2023 Artl cathj/cannulj mntr/transfusion spx prq Luis M Garza MD Work Phone: Start: 05-19-2023 Calcium ionized Bridger Monique MD Work Phone: Start: 05-19-2023 Blood group typing Bridger Monique MD Work Phone: Start: 05-19-2023 Calcium ionized Bridger Monique MD Work Phone: Start: 05-19-2023 AIRWAY ETT Dmitri Fredrick Perry TANK Work Phone: Start: 05-19-2023 Prothrombin time Bridger Monique MD Work Phone: Start: 05-05-2023 DRAW 4 PINK TOP TUBES (ARC) Bridger Monique MD Work Phone: Start: 05-05-2023 Basic metabolic panel calcium total Bridger Monique MD Work Phone: Start: 05-05-2023 Blood typing serologic abo Bridger Monique MD Work Phone: Start: 04-11-2023 Ecg routine ecg w/least 12 lds w/i&r Wang Juan Borges MD Work Phone: Start: 03-04-2023 RFA Unspecified body region Limited Views for therapy or embolization or infusion W contrast via existing catheter Maria Teresa Epperson MD Work Phone: Start: 03-04-2023 Diagnostic procedure on nerve Sancho Woodruff Work Phone: Comment on above: Rt Piriformis/Sciatic Nerve Inj; Start: 02-18-2023 RFA Unspecified body region Limited Views for therapy or embolization or infusion W contrast via existing catheter Maria Teresa Epperson MD Work Phone: Start: 02-18-2023 Injection of steroid into joint Sancho Woodruff Work Phone: Comment on above: Lt Trochanteric Bursa injection; Start: 01-20-[address] Sancho Woodruff Comment on above: Performed By: #### MG #### [address] [address] Start: 01-20-2023 Release Blood Product-Packed Red Blood Cells Shahid Colunga Start: 01-17-2023 End: 01-17-2023 EKG impression Ely I Moomaw Start: 12-03-2022 Thyrotropin [Units/volume] in Serum or Plasma Sancho Woodruff MD Work Phone: Start: 09-09-2022 End: 09-09-2022 EKG impression Xin Pereira Start: 06-16-2022 Colonoscopy Sancho Woodruff Work Phone: Start: 05-13-2022 Arthrocentesis aspir&/inj major jt/bursa w/o us Christine Voss CNP Work Phone: Start: 04-28-2022 Arthrocentesis aspir&/inj major jt/bursa w/o us Christine Voss CNP Work Phone: Start: 03-15-2022 Ecg routine ecg w/least 12 lds w/i&r Wang Borges MD Work Phone: Start: 03-12-2022 Ecg routine ecg w/least 12 lds w/i&r Wang Borges MD Work Phone: Start: 01-07-2022 Echocardiography Sancho Woodruff Work Phone: Start: 10-13-2021 Arthrocentesis aspir&/inj major jt/bursa w/o us Christine Voss CNP Work Phone: Start: 06-25-2021 Arthrocentesis aspir&/inj major jt/bursa w/o Christine Voss CNP Work Phone: Start: 05-01-2021 Lipid 1996 panel - Serum or Plasma Sancho Woodruff MD Work Phone: Start: 02-25-2021 Arthrocentesis aspir&/inj major jt/bursa w/o us Christine Voss CNP Work Phone: Start: 11-19-2020 12 lead ECG Wang Borges Work Phone: Start: 05-22-2020 Arthrocentesis Christine Voss Work Phone: Start: 02-22-2020 Arthrocentesis Christine Voss Work Phone: Start: 02-12-2020 CT angiography of coronary arteries Wang Borges Work Phone: Start: 02-12-2020 Cta hrt cornry art/bypass grfts contrst 3d post Wang Borges Work Phone: Start: 02-12-2020 Creatinine [Mass/volume] in Blood Wang Borges Work Phone: Start: 12-18-2019 Drug Screen, Urine With Reflex To Confirmation Sancho Woodruff Start: 11-30-2019 Basic metabolic 2000 panel - Serum or Plasma Dada Hathaway Work Phone: Start: 11-30-2019 Hemoglobin and Hematocrit panel - Blood Dada Hathaway Work Phone: Start: 11-29-2019 Radex shoulder complete minimum 2 views Dada Hathaway Work Phone: Start: 11-29-2019 End: 11-29-2019 ARTHROPLASTY SHOULDER REVERSE Dada Hathaway Work Phone: Start: 11-20-2019 Radionuclide myocardial perfusion study Wang Borges Work Phone: Start: 11-06-2019 12 lead ECG Dada Hathaway Work Phone: Start: 11-06-2019 Basic metabolic 2000 panel - Serum or Plasma Dada Hathaway Work Phone: Start: 11-06-2019 Complete blood count with white cell differential, automated Dada Hathaway Work Phone: Start: 11-06-2019 Complete blood count with white cell differential, manual Dada Hathaway Work Phone: Start: 11-06-2019 Methicillin resistant Staphylococcus aureus [Presence] in Unspecified specimen by Organism specific culture Dada Hathaway Work Phone: Start: 10-08-2019 MG Breast - bilateral screening External Transcribed Start: 10-08-2019 Mammography Joint Mh Pat Start: 09-25-2019 Mammography External Transcribed Start: 05-08-2019 Colonoscopy Sancho Woodruff Work Phone: Start: 10-02-2013 Mammography Sancho Woodruff Arthroplasty of knee Sancho Woodruff Work Phone: Comment on above: Bilateral knee replacements; Excision of squamous cell carcinoma Sancho Woodruff Work Phone: H/O: artificial joint Presence o f unspecified artificial shoulder joint Maria Teresa Epperson MD Work Phone: H/O: artificial joint History of bilateral knee arthroplasty Dr. Sancho Woodruff MD Work Phone: H/O: artificial joint History of bilateral knee arthroplasty Dr. Sylvia Cool MD History of appendectomy Hx of appendectom y Dr. Sancho Woodruff MD Work Phone: History of appendectomy Hx of appendectom y Dr. Sylvia Cool MD History of cholecystectomy History of laparoscopic cholecystectomy Dr. Sancho Woodruff MD Work Phone: History of cholecystectomy History of laparoscopic cholecystectomy Dr. Sylvia Cool MD History of tonsillectomy Hx of tonsillect mook Dr. Sancho Woodruff MD Work Phone: History of tonsillectomy Hx of tonsillect mook Dr. Sylvia Cool MD History of total hysterectomy Hx of hysterectomy, total Dr. Sancho Woodruff MD Work Phone: History of total hysterectomy Hx of hysterectomy, total Dr. Sylvia Cool MD Repair of shoulder Sancho S tencel Plan of Treatment Date Care Activity Detail Author Start: 04-15-2030 Lipid panel Lipid Panel [facility] Start: 07-11-2028 Lipid panel Lipid Panel [facility] Start: 05-27-2026 Diabetes mellitus screening Diabetes Screening [facility] Start: 05-01-2026 Lipid panel Lipid Panel [facility] Start: 04-15-2026 Thyroid stimulating hormone measurement TSH Level [facility] Start: 01-19-2026 Esophagogastroduodenoscopy EGD [facility] Start: 01-02-2026 Medicare Annual Wellness Visit Medicare Annual Wellness Visit (AWV) [facility] Start: 12-18-2025 End: 12-18-2025 Patient encounter procedure 12/18/2025 10:30 AM EDT Office Visit [facility] [address] [place] [id number] Wang Borges MD [address] [place] [address] [facility] Start: 09-12-2025 End: 09-12-2025 Patient encounter procedure 09/12/2025 11:15 AM EST Office Visit [facility] Medical Office Building [address] [place] [address] Flavia Delgado, FOOT AND [employer]KLE SURGEON[employer] [address] [place] [address] [facility] Medical Office [facility] Start: 08-17-2025 Diabetes mellitus screening Diabetes Screening [facility] Start: 08-09-2025 End: 08-09-2025 Patient encounter procedure 08/09/2025 10:30 AM EDT Office Visit [address] [phone] Dariela Garza MD [address] [place] [id number] [facility] Start: 08-07-2025 End: 08-07-2025 Patient encounter procedure 08/07/2025 10:30 AM EDT Office Visit [address] [id number] Dariela Garza MD [address] [place] [address] [facility] Start: 07-31-2025 End: 07-31-2025 Patient encounter procedure 07/31/2025 11:00 AM EDT Office Visit [address] [id number] Dariela Garza MD [address] [facility] [address] [place] [id number] [facility] Start: 07-30-2025 End: 07-30-2026 CBC panel - Blood by Automated count CBC Lab Routine DDD (degenerative disc disease), lumbosacral Lumbar stenosis with neurogenic claudication Wound of sacral region, sequela Expected: 07/30/2025 (Approximate), Expires: 07/30/2026 [facility] Service Area Work Phone: Comment on above: Expected: 07/30/2025 (Approximate), Expi res: 07/30/2026 Start: 07-30-2025 End: 07-30-2026 Comprehensive metabolic 2000 panel - Serum or Plasma Comprehensive Metabolic Panel Lab Routine DDD (degenerative disc disease), lumbosacral Lumbar stenosis with neurogenic claudication Wound of sacral region, sequela Expected: 07/30/2025 (Approximate), Expires: 07/30/2026 [facility] Work Phone: Comment on above: Expected: 07/30/2025 (Approximate), Expi res: 07/30/2026 Start: 07-04-2025 End: 07-04-2025 Patient encounter procedure 07/04/2025 3:40 PM EDT Office Visit [place] [address] [phone] Sancho Woodruff MD [address] [facility] [address] [place] [phone] [facility] Start: 06-14-2025 End: 06-14-2025 Clinical Support 06/14/2025 9:30 AM EDT Clinical Support [facility] Medical Office Building [address] [facility] 1st [place] [address] [facility] Medical Office Building Start: 06-10-2025 COVID-19 Vaccine ( season) COVID-19 Vaccine () [facility] Start: 06-10-2025 COVID-19 Vaccine ( season) COVID-19 Vaccine ( season) [facility] Start: 06-10-2025 COVID-19 Vaccine ( season) COVID-19 Vaccine ( season) [facility] Start: 06-10-2025 Influenza vaccination Influenza Vaccine (#1) [facility] Start: 05-10-2025 Influenza vaccination Influenza Vaccine (#1) [facility] Start: 04-22-2025 End: 04-22-2025 Clinical Support 04/22/2025 9:30 AM EDT Clinical Support [facility] Medical Office Building [address] [place] [address] 1st [place] [address] [facility] Medical Office [facility] Start: 04-19-2025 End: 04-19-2025 Patient encounter procedure 04/19/2025 10:00 AM EDT Office Visit [place] [address] [place] [phone] Dariela Garza MD [address] [address] [facility] Start: 04-17-2025 End: 04-17-2025 Patient encounter procedure 04/17/2025 10:15 AM EDT Appointment [address] [address] [facility] Start: 04-05-2025 End: 04-05-2025 Patient encounter procedure 04/05/2025 10:30 AM EDT Office Visit [facility] [address] [place] [phone] Dariela Garza MD [address] [place] [address] [facility] Start: 04-03-2025 End: 04-03-2026 CBC panel - Blood by Automated count CBC Lab Routine Mixed hyperlipidemia Expected: 04/03/2025 (Approximate), Expires: 04/03/2026 [facility] Service Area Work Phone: Comment on above: Expected: 04/03/2025 (Approximate), Expi res: 04/03/2026 Start: 04-03-2025 End: 04-03-2026 Comprehensive metabolic 2000 panel - Serum or Plasma Comprehensive Metabolic Panel Lab Routine Mixed hyperlipidemia Expected: 04/03/2025 (Approximate), Expires: 04/03/2026 [facility] Work Phone: Comment on above: Expected: 04/03/2025 (Approximate), Expi res: 04/03/2026 Start: 04-03-2025 End: 04-03-2026 CT Abdomen and Pelvis W contrast IV CT abdomen pelvis w IV contrast Imaging Routine LUQ pain Expected: 04/03/2025, Expires: 04/03/2026 [facility] Work Phone: Comment on above: Expected: 04/03/2025, Expires: Start: 04-03-2025 End: 04-03-2026 Lipid 1996 panel - Serum or Plasma Lipid Panel Lab Routine Mixed hyperlipidemia Expected: 04/03/2025 (Approximate), Expires: 04/03/2026 [facility] Work Phone: Comment on above: Expected: 04/03/2025 (Approximate), Expi res: 04/03/2026 Start: 04-03-2025 End: 04-03-2026 Thyrotropin [Units/volume] in Serum or Plasma Thyroid Stimulating Hormone Lab Routine Acquired hypothyroidism Expected: 04/03/2025 (Approximate), Expires: 04/03/2026 [facility] Work Phone: Comment on above: Expected: 04/03/2025 (Approximate), Expi res: 04/03/2026 Start: 04-03-2025 End: 04-03-2025 Patient encounter procedure 04/03/2025 11:00 AM EDT Office Visit [address] [phone] Sancho Woodruff MD [address] [facility] 100 [place] [address] [facility] Start: 03-27-2025 End: 03-27-2025 Patient encounter procedure 03/27/2025 10:00 AM EDT Office Visit [facility] [address] [place] [address] Jaylan Benavides DO [address] [place] [address] [facility] Start: 03-01-2025 End: 03-01-2025 Patient encounter procedure 03/01/2025 10:00 AM EDT Office Visit [facility] [address] [place] [phone] Dariela Garza MD [address] [place] [address] [facility] Start: 02-08-2025 End: 02-08-2025 Clinical Support 02/08/2025 10:00 AM EDT Clinical Support [facility] Medical Office Building [address] [place] 1st [place] [address] [facility] Medical Office Building Start: 02-06-2025 End: 02-06-2025 Patient encounter procedure 02/06/2025 1:30 PM EDT Appointment [facility] [address] [place] [address] [facility] Start: 02-04-2025 End: 02-04-2025 Clinical Support 02/04/2025 10:00 AM EDT Clinical Support [facility] Medical Office Building [address] 1[address] [place] [address] [facility] Medical Office Building Start: 02-01-2025 End: 02-01-2025 Patient encounter procedure 02/01/2025 10:00 AM EDT Office Visit [facility] [address] [place] [address] Dariela Garza MD [address] [place] [address] [facility] Start: 01-25-2025 End: 01-25-2025 Clinical Support 01/25/2025 10:00 AM EDT Clinical Support [facility] Medical Office Building [address] 1st [place] [address] [facility] Medical Office Building Start: 01-23-2025 End: 01-23-2025 Clinical Support 01/23/2025 9:30 AM EDT Clinical Support [facility] Medical Office Building [address] [place] [address] [facility] Medical Office Building Start: 01-21-2025 End: 01-21-2025 Clinical Support 01/21/2025 9:30 AM EDT Clinical Support [facility] Medical Office Building [address] 1st [place] [address] [facility] Medical Office Building Start: 01-18-2025 End: 01-18-2026 XR Pelvis 1 or 2 Views XR pelvis 1-2 views Imaging Routine Skin ulcer, unspecified ulcer stage (Multi) Expected: 01/18/2025, Expires: 01/18/2026 [facility] Service Area Work Phone: Comment on above: Expected: 01/18/2025, Expires: Start: 01-01-2025 End: 01-01-2026 DRUG SCREEN,URINE DRUG SCREEN,URINE Lab Routine Lumbar stenosis with neurogenic claudication Controlled drug dependence (Multi) Expected: 01/01/2025 (Approximate), Expires: 01/01/2026 [facility] Service Area Work Phone: Comment on above: Expected: 01/01/2025 (Approximate), Expi res: 01/01/2026 Start: 12-25-2024 Administration of herpes zoster vaccine Zoster Vaccines (3 of 3) [facility] Start: 12-25-2024 Zoster Vaccines (3 of 3) Zoster Vaccines (3 of 3) [facility] Start: 12-12-2024 End: 12-12-2024 Patient encounter procedure 12/12/2024 11:15 AM EST Office Visit [facility] [address] [place] [phone] Wang Borges MD [address] [facility] [address] [place] [address] [facility] Start: 11-19-2024 End: 11-19-2024 Patient encounter procedure 11/19/2024 2:00 PM EST Office Visit [address] [phone] Sancho Woodruff MD [address] [address] [facility] Start: 11-13-2024 Subsequent hospital visit by physician 11/13/2024 Hospital Encounter [facility] [address] [place] [phone] Jaylan Benavides DO [address] [place] [address] [facility] Start: 10-30-2024 End: 10-30-2024 Patient encounter procedure 10/30/2024 11:00 AM EST Office Visit [facility] [address] [place] [address] Jose A Ornelas, [employer] [address] [place] [address] [facility] Start: 10-14-2024 Medicare Annual Wellness Visit Medicare Annual Wellness Visit (AWV) [facility] Start: 10-13-2024 History and physical examination, annual for health maintenance Wellness Visit [facility] Start: 10-13-2024 Medicare Wellness Visit Medicare Wellness Visit [facility] Start: 10-12-2024 Thyroid stimulating hormone measurement TSH Level [facility] Start: 08-13-2024 End: 08-13-2025 CBC panel - Blood by Automated count CBC Lab Routine Iron deficiency anemia, unspecified iron deficiency anemia type Expected: 08/13/2024 (Approximate), Expires: 08/13/2025 [facility] Service Area Work Phone: Comment on above: Expected: 08/13/2024 (Approximate), Expi res: 08/13/2025 Start: 08-13-2024 End: 08-13-2025 Comprehensive metabolic 2000 panel - Serum or Plasma Comprehensive Metabolic Panel Lab Routine Iron deficiency anemia, unspecified iron deficiency anemia type Expected: 08/13/2024 (Approximate), Expires: 08/13/2025 [facility] Work Phone: Comment on above: Expected: 08/13/2024 (Approximate), Expi res: 08/13/2025 Start: 07-12-2024 End: 07-12-2024 Patient encounter procedure 07/12/2024 2:40 PM EDT Office Visit [facility] [address] [place] [phone] Sancho Woodruff MD [address] [place] [address] [facility] Start: 07-11-2024 Thyroid stimulating hormone measurement TSH Level [facility] Start: 07-11-2024 End: 07-11-2024 Patient encounter procedure 07/11/2024 10:00 AM EDT Office Visit [facility] [address] [place] [address] Jaylan Benavides DO [address] [place] [address] [facility] Start: 06-10-2024 COVID-19 Vaccine ( season) COVID-19 Vaccine () [facility] Start: 06-10-2024 COVID-19 Vaccine () COVID-19 Vaccine () [facility] Start: 06-10-2024 Influenza vaccination Influenza Vaccine (#1) [facility] Start: 05-11-2024 End: 05-11-2024 Patient encounter procedure 05/11/2024 11:45 AM EDT Office Visit [facility] [address] [place] [address] Jaylan Benavides DO [address] [place] [address] [facility] Start: 05-10-2024 End: 05-10-2024 Patient encounter procedure 05/10/2024 11:30 AM EDT Office Visit [facility] [address] [place] [address] Wang Borges MD [address] [facility] [address] [place] [address] [facility] Start: 04-16-2024 End: 04-16-2024 Patient encounter procedure 04/16/2024 2:40 PM EDT Office Visit [facility] [address] [place] [address] Sancho Woodruff MD [address] [place] [address] [facility] Start: 03-12-2024 End: 03-12-2025 XR Knee - left 4 Views XR knee left 4+ views Imaging Routine Acute pain of left knee Expected: 03/12/2024, Expires: 03/12/2025 [facility] Service Area Work Phone: Comment on above: Expected: 03/12/2024, Expires: Start: 02-29-2024 End: 02-21-2025 MR Cervical spine WO contrast MR Cervical Spine Without Contrast Imaging Routine Cervical radiculopathy Expected: 02/29/2024 (Approximate), Expires: 02/21/2025 [facility] Work Phone: Comment on above: Expected: 02/29/2024 (Approximate), Expi res: 02/21/2025 Start: 01-12-2024 End: 01-12-2024 Patient encounter procedure 01/12/2024 2:40 PM EDT Office Visit [facility] [address] [place] [phone] Sancho Woodruff MD [address] [place] [address] [facility] Start: 12-03-2023 Thyroid stimulating hormone measurement TSH Level [facility] Start: 10-13-2023 End: 10-13-2023 Patient encounter procedure 10/13/2023 2:00 PM EST Office Visit [facility] [address] [facility] [place] [phone] Sancho Woodruff MD [address] [place] [address] [facility] Start: 08-04-2023 End: 08-04-2023 Telemedicine consultation with patient 08/04/2023 1:15 PM EDT Telemedicine Telephone [facility] [address] [facility] [address] [place] [address] Wang Borges MD [address] [facility] [address] [place] [address] [facility] Start: 07-13-2023 End: 07-13-2023 Patient encounter procedure 07/13/2023 3:00 PM EDT Office Visit [facility] [address] [place] [address] [place] [address] Bridger Monique MD [address] [address] [facility] Start: 07-12-2023 End: 07-12-2023 Telemedicine consultation with patient 07/12/2023 10:45 AM EDT Telemedicine Telephone [facility] [address] [place] [address] Wang Borges MD [address] [facility] [address] [place] [address] [facility] Start: 07-07-2023 End: 07-07-2023 Patient encounter procedure 07/07/2023 2:40 PM EDT Office Visit [facility] [address] [place] [address] Sancho Woodruff MD [address] [place] [address] [facility] Start: 07-07-2023 End: 07-07-2024 CBC panel - Blood by Automated count CBC Lab Routine Gastrointestinal hemorrhage, unspecified gastrointestinal hemorrhage type Mixed hyperlipidemia Iron deficiency anemia, unspecified iron deficiency anemia type Acquired hypothyroidism Expected: 07/07/2023 (Approximate), Expires: 07/07/2024 [facility] Service Area Work Phone: Comment on above: Expected: 07/07/2023 (Approximate), Expi res: 07/07/2024 Start: 07-07-2023 End: 07-07-2024 Comprehensive metabolic 2000 panel - Serum or Plasma Comprehensive Metabolic Panel Lab Routine Mixed hyperlipidemia Expected: 07/07/2023 (Approximate), Expires: 07/07/2024 [facility] Work Phone: Comment on above: Expected: 07/07/2023 (Approximate), Expi res: 07/07/2024 Start: 07-07-2023 End: 07-07-2024 Lipid 1996 panel - Serum or Plasma Lipid Panel Lab Routine Mixed hyperlipidemia Expected: 07/07/2023 (Approximate), Expires: 07/07/2024 [facility] Work Phone: Comment on above: Expected: 07/07/2023 (Approximate), Expi res: 07/07/2024 Start: 07-07-2023 End: 07-07-2024 Thyrotropin [Units/volume] in Serum or Plasma Thyroid Stimulating Hormone Lab Routine Acquired hypothyroidism Expected: 07/07/2023 (Approximate), Expires: 07/07/2024 [facility] Work Phone: Comment on above: Expected: 07/07/2023 (Approximate), Expi res: 07/07/2024 Start: 06-10-2023 COVID-19 Vaccine () COVID-19 Vaccine () [facility] Start: 06-10-2023 Influenza vaccination [facility] Start: 06-10-2023 End: 06-10-2023 Follow-up encounter 06/10/2023 1:30 PM EDT Follow-Up [facility] [address] [facility] [place] [address] Shawn Mcmillan PA-C [address] [place] [address] [place] [address] [facility] Start: 06-03-2023 End: 06-03-2023 Clinical Support 06/03/2023 2:00 PM EDT Clinical Support [facility] [address] [facility] [place] [address] [facility] Start: 06-02-2023 End: 06-02-2023 Follow-up encounter 06/02/2023 2:00 PM EDT Follow-Up [facility] [address] [facility] [place] [address] Dada Gee PA-C [address] [address] [facility] Start: 05-26-2023 Medicare Annual Wellness Visit Medicare Annual Wellness Visit (AWV) [facility] Start: 05-25-2023 End: 05-25-2023 Clinical Support 05/25/2023 2:30 PM EDT Clinical Support [facility] [address] [place] [address] [facility] Start: 05-19-2023 End: 05-19-2023 LAMINECTOMY DECOMPRESSION LUMBAR WITH FUSION NAVIGATIONAL 1 LEVEL LAMINECTOMY DECOMPRESSION LUMBAR WITH FUSION NAVIGATIONAL 1 LEVEL Sacral insufficiency fracture with delayed healing 05/19/2023 7:46 AM EDT [facility] Start: 05-06-2023 End: 05-06-2023 Admission to same day surgery center 05/06/2023 11:40 AM EDT - 05/06/2023 5:00 PM EDT Surgery [facility] [address] [place] [address] Bridger Monique MD [address] [address] Rigiht Sacral 2- Iliac Fixation and Fusion with Sacroplasty [facility] Comment on above: Rigiht Sacral 2- Iliac Fixation and Fusi on with Sacroplasty Start: 05-06-2023 End: 05-06-2023 Anesthesia consultation 05/06/2023 11:40 AM EDT Anesthesia Event [facility] [address] [place] [address] Luis M Calvert MD [address] [place] [phone] [facility] Start: 05-06-2023 End: 05-06-2023 LAMINECTOMY DECOMPRESSION LUMBAR WITH FUSION NAVIGATIONAL 1 LEVEL LAMINECTOMY DECOMPRESSION LUMBAR WITH FUSION NAVIGATIONAL 1 LEVEL Sacral insufficiency fracture with delayed healing 05/06/2023 11:40 AM EDT [facility] Start: 05-06-2023 Subsequent hospital visit by physician 05/06/2023 11:40 AM EDT Hospital Encounter [facility] [address] [place] [address] Bridger Monique MD [address] [place] [address] [place] [address] [facility] Start: 04-11-2023 End: 04-11-2023 Patient encounter procedure 04/11/2023 1:45 PM EDT Office Visit [facility] [address] [place] [address] [place] [address] [place] [address] Wang Borges MD [address] [facility] [address] [place] [address] [facility] Start: 03-28-2023 NPV, Provider: Oksana Ocampo, Status: Pen, Time: 10:45 AM NPV, Provider: Oksana Ocampo, Status: Pen, Time: 10:45 AM MP-Pain Management-[facility] Work Phone: Start: 02-17-2023 EPV, Provider: Sancho Woodruff, Status: Pen, Time: 2:40 PM EPV, Provider: Sancho Woodruff, Status: Pen, Time: 2:40 PM Re[facility] Services[facility] Work Phone: Start: 02-17-2023 End: 02-18-2024 Comprehensive metabolic 2000 panel - Serum or Plasma [facility] Service Area Work Phone: Comment on above: Expected: 02/17/2023 (Approximate), Expi res: 02/18/2024 Start: 02-10-2023 FUV, Provider: Burt Gonzalez, Status: Pen, Time: 2:30 PM FUV, Provider: Burt Gonzalez, Status: Pen, Time: 2:30 PM [facility] Work Phone: Start: 02-10-2023 Patient encounter procedure [facility] Start: 01-19-2023 PTRECHECKA, Provider: Elina Diaz, Status: Pen, Time: 2:30 PM PTRECHECKA, Provider: Elina Diaz, Status: Pen, Time: 2:30 PM [facility] Start: 01-17-2023 End: 01-18-2024 [facility] Start: 01-12-2023 PTFUADULT4, Provider: Elina Diaz, Status: Pen, Time: 2:30 PM PTFUADULT4, Provider: Elina Diaz, Status: Pen, Time: 2:30 PM [facility] Work Phone: Start: 01-06-2023 FUV, Provider: Burt Gonzalez, Status: Pen, Time: 1:00 PM FUV, Provider: Burt Gonzalez, Status: Pen, Time: 1:00 PM MP-Pain Management-[facility] an Work Phone: Start: 01-05-2023 PTFUADULT4, Provider: Cecilia Richardson, Status: Pen, Time: 2:45 PM PTFUADULT4, Provider: Cecilia Richardson, Status: Pen, Time: 2:45 PM [facility] Work [facility]: Start: 12-29-2022 PTFUADULT4, Provider: Elina Diaz, Status: Pen, Time: 2:45 PM PTFUADULT4, Provider: Elina Diaz, Status: Pen, Time: 2:45 PM [facility] Work [facility]: Start: 12-15-2022 PTRECHECKA, Provider: Elina Diaz, Status: Pen, Time: 2:30 PM PTRECHECKA, Provider: Elina Diaz, Status: Pen, Time: 2:30 PM [facility] [employer] [facility] Work Phone: Start: 12-13-2022 PTFUADULT4, Provider: Cecilia Richardson, Status: Pen, Time: 2:00 PM PTFUADULT4, Provider: Cecilia Richardson, Status: Pen, Time: 2:00 PM [facility] Work Phone: Start: 12-08-2022 PTFUADULT4, Provider: Elina Diaz, Status: Pen, Time: 3:15 PM PTFUADULT4, Provider: Elina Diaz, Status: Pen, Time: 3:15 PM [employer] [facility] Work Phone: Start: 12-06-2022 PTFUADULT4, Provider: Cecilia Richardson, Status: Pen, Time: 2:00 PM PTFUADULT4, Provider: Cecilia Richardson, Status: Pen, Time: 2:00 PM [facility] [employer] [facility] Work Phone: Start: 12-01-2022 PTFUADULT4, Provider: Elina Diaz, Status: Pen, Time: 1:45 PM PTFUADULT4, Provider: Elina Diaz, Status: Pen, Time: 1:45 PM [employer] [facility] Work Phone: Start: 11-29-2022 PTFUADULT4, Provider: Cecilia Richardson, Status: Pen, Time: 2:00 PM PTFUADULT4, Provider: Cecilia Richardson, Status: Pen, Time: 2:00 PM [facility] [employer] [facility] [employer] [facility] Work Phone: Start: 11-24-2022 PTFUADULT4, Provider: Cecilia Richardson, Status: Pen, Time: 11:30 AM PTFUADULT4, Provider: Cecilia Richardson, Status: Pen, Time: 11:30 AM [facility] [employer] [facility] Work Phone: Start: 11-22-2022 PTFUADULT4, Provider: Cecilia Richardson, Status: Pen, Time: 2:00 PM PTFUADULT4, Provider: Cecilia Richardson, Status: Pen, Time: 2:00 PM [employer] [facility] Work Phone: Start: 11-18-2022 EPV, Provider: Sancho Woodruff, Status: Pen, Time: 2:40 PM EPV, Provider: Sancho Woodruff, Status: Pen, Time: 2:40 PM [employer] [facility] Work Phone: Start: 11-08-2022 PTEVAADULT, Provider: Larisa Walker, Status: Pen, Time: 2:00 PM PTEVAADULT, Provider: Larisa Walker, Status: Pen, Time: 2:00 PM [employer] [facility] Work Phone: Start: 11-04-2022 EPV, Provider: Sancho Woodruff, Status: Pen, Time: 3:00 PM EPV, Provider: Sancho Woodruff, Status: Pen, Time: 3:00 PM [employer] [facility] Work Phone: Start: 11-04-2022 Patient encounter procedure [facility] Start: 10-09-2022 Screening for osteoporosis Bone Density Scan [facility] Start: 08-03-2022 EPV, Provider: Sancho Woodruff, Status: Pen, Time: 3:40 PM EPV, Provider: Sancho Woodruff, Status: Pen, Time: 3:40 PM [employer] [facility] Work Phone: Start: 06-28-2022 End: 06-28-2022 Patient encounter procedure 06/28/2022 Office Visit Orthopedic Surgery Sancho Castaneda MD [address] [place], [place] [id number] [facility] Start: 06-16-2022 COLON, Provider: Oksana Ocampo, Status: Pen, Time: 9:00 AM COLON, Provider: Oksana Ocampo, Status: Pen, Time: 9:00 AM -Medical [facility] Work Phone: Start: 06-10-2022 Influenza vaccination Sequential Influenza Vaccine (#1) [facility] Start: 05-26-2022 End: 05-26-2022 Telemedicine consultation with patient 05/26/2022 Telemedicine Telephone Cardiology Wang Borges MD [address] [facility] [address] [place] [address] [facility] Start: 05-13-2022 End: 05-13-2022 Clinical Support 05/13/2022 Clinical Support Sports Medicine Christine Voss, [employer] [address] [place] [address] [facility] Start: 05-04-2022 EPV, Provider: Sancho Woodruff, Status: Pen, Time: 9:20 AM EPV, Provider: Sancho Woodruff, Status: Pen, Time: 9:20 AM [facility] Work Phone: Start: 03-09-2022 End: 03-09-2022 Patient encounter procedure 03/09/2022 Office Visit Cardiology Wang Borges MD [address] [facility] [address] [place] [address] [facility] Start: 02-10-2022 End: 02-10-2022 Clinical Support 02/10/2022 Clinical Support Sports Medicine Christine Voss, [employer] [address] [place] [address] [facility] Start: 02-03-2022 EPV, Provider: Sancho Woodruff, Status: Pen, Time: 9:40 AM EPV, Provider: Sancho Woodruff, Status: Pen, Time: 9:40 AM -[facility] Work Phone: Start: 12-29-2021 COVID-19 Vaccine (4 - Booster for Pfizer series) COVID-19 Vaccine (4 - Booster for Pfizer series) [facility] Start: 11-05-2021 EPV, Provider: Sancho Woodruff, Status: Pen, Time: 9:40 AM EPV, Provider: Sancho Woodruff, Status: Pen, Time: 9:40 AM [facility] Start: 10-26-2021 COVID-19 Vaccine (4 - Booster for Pfizer series) COVID-19 Vaccine (4 - Booster for Pfizer series) [facility] Start: 10-26-2021 COVID-19 Vaccine (4 - Pfizer series) COVID-19 Vaccine (4 - Pfizer series) [facility] Start: 08-07-2021 EPV, Provider: Sancho Woodruff, Status: Pen, Time: 10:40 AM EPV, Provider: Sancho Woodruff, Status: Pen, Time: 10:40 AM [facility] Work Phone: Start: 07-13-2021 DTaP/Tdap/Td Vaccines (2 - Td or Tdap) DTaP/Tdap/Td Vaccines (2 - Td or Tdap) [facility] Start: 07-13-2021 Tetanus vaccination [facility] Start: 06-28-2021 COVID-19 Vaccine (3 - Pfizer booster) COVID-19 Vaccine (3 - Pfizer booster) [facility] Start: 06-10-2021 Influenza vaccination Sequential Influenza Vaccine (#1) [facility] Start: 05-06-2021 EPV, Provider: Sancho Woodruff, Status: Pen, Time: 10:40 AM EPV, Provider: Sancho Woodruff, Status: Pen, Time: 10:40 AM [facility] Work Phone: Start: 11-28-2020 End: 11-28-2020 Office Visit 11/28/2020 Office Visit Sports Medicine Dada Hathaway MD [address] [place] [address] [phone] [facility] Start: 11-28-2020 End: 11-28-2020 Office Visit 11/28/2020 Office Visit Sports Medicine Dada Hathaway MD [address] [place] [address] [phone] [facility] Start: 11-19-2020 End: 11-19-2020 Office Visit 11/19/2020 Office Visit Cardiology Wang Borges MD [address] [facility] [address] [place] [address] [phone] [facility] Office Start: 10-08-2020 Screening for malignant neoplasm of breast Mammogram [facility] Start: 10-08-2020 Screening mammography Mammogram [facility] Start: 06-10-2020 Influenza vaccination given [facility] Start: 02-12-2020 End: 02-12-2020 Appointment 02/12/2020 Appointment Radiology Wang Borges MD [address] [facility] [address] [place] [address] [phone] [facility] CT Scan Start: 01-08-2020 End: 01-08-2020 Appointment 01/08/2020 Appointment Radiology Wang Borges MD [address] [facility] [address] [place] [address] [phone] [facility] CT Scan Start: 01-07-2020 End: 01-07-2020 Follow-Up 01/07/2020 Follow-Up Sports Dada Gomez MD [address] [place] [address] [phone] [facility] Start: 12-17-2019 End: 12-17-2019 Follow-Up 12/17/2019 Follow-Up Sports Dada Gomez MD [address] [place] [address] [phone] [facility] Start: 11-29-2019 End: 11-29-2019 Hospital Encounter [facility] Periop Comment on above: Reverse right total shoulder replacement Start: 11-20-2019 End: 11-20-2019 Appointment 11/20/2019 Appointment Cardiology Wang Borges MD [address] [facility] [address] [place] [address] [phone] [facility] Start: 11-14-2019 End: 11-14-2019 Office Visit 11/14/2019 Office Visit Cardiology Dada Hathaway MD [address] [place], [place] [id number] [phone] Wang Borges MD [address] [facility] [address] [place] [address] [phone] [facility] Office Start: 11-12-2019 End: 11-12-2019 Surgical Consult 11/12/2019 Surgical Consult Sports Medicine Dada Hathaway MD [address] [place], [place] [address] [phone] [facility] Start: 10-08-2019 End: 10-08-2019 Appointment 10/08/2019 Appointment Radiology Stencel, Sancho Casey MD [address] [place], [place] [id number] [phone] [facility] Start: 09-26-2019 End: 09-26-2019 Treatment 09/26/2019 Treatment Rehabilitation Dada Hathaway MD [address] [facility] [place] [address] [phone] Sadaf Cardenas PT [facility] Start: 09-19-2019 End: 09-19-2019 Treatment 09/19/2019 Treatment Rehabilitation Dada Hathaway MD [address] [facility] [place] [address] [phone] PTA [facility] Start: 09-17-2019 End: 09-17-2019 Treatment 09/17/2019 Treatment Rehabilitation Dada Hathaway MD [address] [place] [id number] [phone] [facility] Start: 09-14-2019 End: 09-14-2019 Treatment 09/14/2019 Treatment Rehabilitation Dada Hathaway MD [address] [place] [id number] [phone] [facility] Start: 09-11-2019 End: 09-11-2019 Treatment [facility] Start: 09-07-2019 End: 09-07-2019 Treatment 09/07/2019 Treatment Rehabilitation Dada Hathaway MD [address] [place] [address] [address] [place] [id number] [phone] [facility] Start: 09-04-2019 End: 09-04-2019 Treatment 09/04/2019 Treatment Rehabilitation Dada Hathaway MD [address] [place] [address] [address] [place] [id number] [phone] [facility] Start: 08-30-2019 End: 08-30-2019 Treatment 08/30/2019 Treatment Rehabilitation Dada Hathaway MD [address] [place] [id number] [phone] [facility] Start: 08-28-2019 End: 08-28-2019 Treatment [facility] Start: 08-23-2019 End: 08-23-2019 Treatment 08/23/2019 Treatment Rehabilitation Dada Hathaway MD [address] [place] [id number] [phone] [facility] Start: 08-23-2019 End: 08-23-2019 Treatment 08/23/2019 Treatment Rehabilitation Dada Hathaway MD [address] [place] [id number] [phone] Xochilt Lyon [facility] Start: 08-21-2019 End: 08-21-2019 Treatment 08/21/2019 Treatment Rehabilitation Dada Hathaway MD [address] [place], [facility] Start: 08-17-2019 End: 08-17-2019 Treatment 08/17/2019 Treatment Rehabilitation Dada Hathaway MD [address] [place], [facility]05 Xochilt Lyon [facility] Start: 08-14-2019 End: 08-14-2019 Treatment 08/14/2019 Treatment Rehabilitation Dada Hathaway MD [address] [place], [facility] Debi [facility] Start: 08-14-2019 End: 08-14-2019 Treatment 08/14/2019 Treatment Rehabilitation Dada Hathaway MD [address] [place] [address] [address] [place] [id number] [phone] Debi Lord [facility] Start: 08-09-2019 End: 08-09-2019 Treatment 08/09/2019 Treatment Rehabilitation Dada Hathaway MD [address] [place] [address] [address] [place] [id number] Xochilt Lyon [facility] Start: 08-07-2019 End: 08-07-[address] [facility] Start: 08-03-2019 End: 08-03-2019 Treatment 08/03/2019 Treatment Rehabilitation Dada Hathaway MD [address] [place] [id number] [facility]bi [facility] Start: 06-10-2019 Influenza vaccination given [facility] Start: 06-10-2018 Influenza vaccination SEQUENTIAL INFLUENZA VACCINE (#1) [facility] Start: 04-24-2018 End: 04-24-2018 Ambulatory 04/24/2018 Office Visit Sports Medicine Dada Hathaway MD [address] [place] [address] [phone] [facility] Start: 08-11-2017 Pneumococcal vaccination PNEUMOCOCCAL VACCINE AGE 65+ (2 of 2 - PCV13) [facility] Start: 06-10-2017 Influenza vaccination SEQUENTIAL INFLUENZA VACCINE (#1) [facility] Start: 2016 Respiratory Syncytial Virus Immunization: Risk, 60-74 Risk, or 75+ (1 - 1-dose 75+ series) Respiratory Syncytial Virus Immunization: Risk, 60-74 Risk, or 75+ (1 - 1-dose 75+ series) [facility] Start: 2016 RSV High Risk: (Elderly (60+) or Population) (1 - 1-dose 75+ series) RSV High Risk: (Elderly (60+) or Population) (1 - 1-dose 75+ series) [facility] Start: 05-20-2016 History and physical examination, annual for health maintenance Wellness Visit [facility] Start: 10-02-2014 Screening mammography Mammogram [facility] Start: 03-11-2011 Administration of herpes zoster vaccine Zoster Vaccines (2 of 3) [facility] Start: 03-11-2011 Zoster Vaccines (2 of 3) Zoster Vaccines (2 of 3) [facility] Start: 2006 Fall risk assessment Falls Risk Assessment [facility] Start: 2001 RSV patients and/or patients aged 60+ years (1 - 1-dose 60+ series) RSV patients and/or patients aged 60+ years (1 - 1-dose 60+ series) [facility] Start: 2001 Zoster vacc, sc ZOSTER VACCINE [facility] Start: 12-28-1991 Administration of herpes zoster vaccine Zoster Vaccines (1 of 2) [facility] Start: 12-28-1991 ZOSTER VACCINES (1 of 2) ZOSTER VACCINES (1 of 2) [facility] Start: 1960 Hepatitis A Vaccines (1 of 2 - Risk 2-dose series) Hepatitis A Vaccines (1 of 2 - Risk 2-dose series) [facility] Start: 12-28-1959 Diabetes mellitus screening Diabetes Screening [facility] Start: 12-28-1959 Hepatitis C antibody, confirmatory test Hepatitis C Screening [facility] Start: 12-28-1959 Hepatitis C screening Hepatitis C Screening [facility] Start: 1957 COVID-19 Vaccine (1 of 2) COVID-19 Vaccine (1 of 2) [facility] Start: 1953 Adolescent depression screening assessment Depression Screening (PHQ9) [facility] Start: 1953 Depression screening using PHQ-9 (Patient Health Questionnaire 9) score [facility] Start: 1944 History and physical examination, annual for health maintenance Wellness Visit [facility] Start: 1942 Hepatitis A Vaccines (1 of 2 - Risk 2-dose series) Hepatitis A Vaccines (1 of 2 - Risk 2-dose series) [facility] Start: 06-29-1942 Examination of skin Derm Melanoma Skin Check [facility] Start: 1941 Depression screening using PHQ-9 (Patient Health Questionnaire 9) score DEPRESSION SCREENING (PHQ9) [facility] Start: 1941 Fall risk assessment Falls Risk Assessment [facility] Start: 1941 Medicare Annual Wellness Visit Medicare Annual Wellness Visit (AWV) [facility] Start: 1941 Physical therapy management PT PLAN OF CARE [facility] Start: 1941 Screening for osteoporosis DEXA SCAN [facility] Start: 1941 Screening for substance abuse SUBSTANCE ABUSE SCREENING (AUDIT-C) [facility] Start: 1941 Screening mammography Mammogram [facility] Start: 1941 Tetanus vaccination TETANUS EVERY 10 YR [facility] 12 lead ECG ECG 12 lead ECG Routine Paroxysmal atrial fibrillation (HCC) 12/12/2024 11:26 AM EST [facility] Work Phone: Abdominal adhesions Abdominal adhesions [facility] Abdominal tumor Abdominal tumor [facility] Blood type and Indir ect antibody screen panel - Blood Type and screen Blood Bank Routine Pre-op testing 05/05/2023 7:38 AM EDT [facility] End: 04-17-2025 CT Abdomen and Pelvis W contrast IV [facility] Service Area Work Phone: Comment on above: Once for 1 Occurrences starting 04/17/20 until 04/17/2025 End: 02-06-2025 CT Pelvis W contrast IV [facility] Service Are a Work Phone: Comment on above: Once for 1 Occurrences starting 02/07/20 until 02/06/2025 History of appendectomy History of appendectomy [facility] History of cataract extraction H istory of cataract extraction [facility] History of cholecystectomy Histo ry of cholecystectomy [facility] History of colonoscopy History of colonos copy [facility] History of colonoscopy History of colonos copy [facility] History of laparoscopy History of laparos copy [facility] History of operative procedure on foot History of foot surgery [facility] History of operative procedure on knee History of knee replacement [facility] History of operative procedure on shoulder History of shoulder replacement [facility] History of tonsillectomy History of tonsillectomy and adenoidectomy [facility] History of total hip arthroplasty History of total hip replacement [facility] INJECTION EPIDURAL S TEROIDS CERVICAL INJECTION EPIDURAL STEROIDS CERVICAL Cervical radiculopathy [facility] Methicillin resistan t Staphylococcus aureus [Presence] in Unspecified specimen by Organism specific culture MRSA Culture/Screen Microbiology Routine Pre-op testing 05/05/2023 7:38 AM EDT [facility] Njx dx/ther sbst int rlmnr crv/thrc w/img gdn INJECTION EPIDURAL STEROIDS CERVICAL Cervical radiculopathy [facility] End: 05-19-2023 POC ABG SURG - RALS [facility] Comment on above: Once for 1 Occurrences starting 05/19/20 23 until 05/19/2023, 1 completed Procedure on tissue specimen [facility] Comment on above: Release Upon Ordering for 1 Occurrences starting 11/29/2019, 1 completed End: 11-14-2020 Radionuclide myocardial perfusion study NM Myocardial Perfusion Multiple SPECT Imaging Routine Preop cardiovascular exam Atrial fibrillation, unspecified type (HCC) Essential hypertension 1 Occurrences starting 11/14/2019 until 11/14/2020 [facility] Comment on above: 1 Occurrences starting 11/14/2019 until 11/14/2020 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 [facility] Standard chest X-ray XR Chest AP /PA and LAT Imaging Routine Pre-op testing 05/05/2023 9:02 AM EDT [facility] Work Phone: End: 05-19-[address] Pelvis Without Contrast [facility] Comment on above: One time imaging One time imaging for 1 Occurrences starting 05/19/2023 until 05/19/2023 End: 03-13-2024 XR Knee - left 4 Views [facility] Service Area Work Phone: Comment on above: Once for 1 Occurrences starting 03/13/20 24 until 03/13/2024 End: 06-22-2023 XR Lumbar Spine 2-3 Views (Standard) XR Lumbar Spine 2-3 Views (Standard) Imaging Routine Pain 1 Occurrences starting 06/22/2022 until 06/22/2023 [facility] Work Phone: Comment on above: 1 Occurrences starting 06/22/2022 until 06/22/2023 End: 05-19-2023 XR OR Pelvis 1-2 VIEWS [facility] Work Phone: Comment on above: One time imaging One time imaging for 1 Occurrences starting 05/19/2023 until 05/19/2023 Immunizations Immunization Date Immunization Notes Care Provider Fa shy 10-30-2024 zoster vaccine recombinant Sancho Woodruff MD Work Phone: [facility] Work Phone: 09-13-2024 influenza, high dose seasonal, preservative-free Sancho Woodruff MD Work Phone: [facility] Work Phone: 09-13-2024 influenza virus vacc ine, unspecified formulation Faustino 1 [facility] Work Phone: 08-25-2023 Flu vaccine, quadrivalent, high-dose, preservative free, age 65y+ (FLUZONE) Sancho Woodruff MD Work Phone: [facility] Work Phone: 08-25-2023 influenza virus vacc ine, unspecified formulation Sancho Woodruff MD Work Phone: [facility] Work Phone: 08-15-2023 influenza, high dose seasonal, preservative-free Sancho Woodruff MD Work Phone: [facility] Work Phone: 10-08-2022 Prevnar 20 0.5 ML Intramuscular Suspension Prefilled Syringe Sancho Woodruff Work Phone: [facility] Work Phone: 07-01-2022 influenza, high dose seasonal, preservative-free Sancho Woodruff Work Phone: [facility] Work Phone: 07-01-2022 influenza virus vacc ine, unspecified formulation Sancho Woodruff MD Work Phone: [facility] Work Phone: 08-31-2021 Pfizer-BioNTech COVI D-19 Vacc 30 MCG/0.3ML Intramuscular Suspension Sancho Woodruff Work Phone: [facility] Work Phone: 07-30-2021 influenza, high dose seasonal, preservative-free Sancho Woodruff Work Phone: [facility] 07-06-2021 influenza, high dose seasonal, preservative-free Sancho Woodruff MD Work Phone: [facility] Work Phone: 12-26-2020 Pfizer-BioNTech COVI D-19 Vacc 30 MCG/0.3ML Intramuscular Suspension Sancho Woodruff Work Phone: [facility] Work Phone: Comment on above: Series: 12-05-2020 Pfizer-BioNTech COVI D-19 Vacc 30 MCG/0.3ML Intramuscular Suspension Sancho Woodruff Work Phone: [facility] Work Phone: Comment on above: Series: 08-04-2020 pneumococcal conjuga te vaccine, 13 valent; Translations: [Prevnar 13 Intramuscular Suspension] Sancho Woodruff -[facility] [address] Work Phone: Comment on above: Series: 06-18-2020 influenza, high dose seasonal, preservative-free Sancho Woodruff MD Work Phone: [facility] Work Phone: 06-18-2020 influenza, seasonal, injectable Sancho Woodruff [facility] Work Phone: Comment on above: Series: 06-17-2020 influenza, seasonal, injectable Sancho Woodruff -[facility] [address] Work Phone: Comment on above: Series: 06-10-2020 influenza, seasonal, injectable Sancho Woodruff -[facility] [address] Work Phone: 09-19-2019 influenza, high dose seasonal, preservative-free Sancho Woodruff MD Work Phone: [facility] Work Phone: 09-19-2019 influenza, seasonal, injectable Sancho Woodruff -[facility] [place] [address] Work Phone: Comment on above: Series: 09-21-2018 influenza, high dose seasonal, preservative-free Sancho Woodruff Work Phone: [facility] Work Phone: 04-24-2018 hepatitis B vaccine, adult dosage Sancho Woodruff [facility] [place] [address] Work Phone: Comment on above: Series: 10-20-2017 hepatitis B vaccine, adult dosage Sancho Woodruff -[facility] Work Phone: Comment on above: Series: 09-12-2017 hepatitis B vaccine, adult dosage Sancho Woodruff -[facility] Work Phone: Comment on above: Series: 08-11-2016 influenza, high dose seasonal, preservative-free; Translations: [INFLUENZA IIV3 HIGH DOSE 65 AND OLDER] Dada Hathaway [facility] 08-11-2016 pneumococcal polysaccharide vaccine, 23 valent; Translations: [PNEUMOCOCCAL POLYSACCHARIDE (PNEUMOVAX)] Dada Hathaway [facility] Comment on above: Series: 08-11-2016 pneumococcal polysaccharide vaccine, 23 valent Sancho Woodruff [facility] [address] Work Phone: 08-14-2013 influenza virus vacc ine, whole virus Sancho Jaracel Work Phone: [facility] Work Phone: 07-13-2011 tetanus toxoid, redu keny diphtheria toxoid, and acellular pertussis vaccine, adsorbed Sancho Woodruff [facility] [address] Work Phone: Comment on above: Series: 01-14-2011 zoster vaccine, live Sancho Woodruff [facility] [place] [address] Work Phone: Comment on above: Series: 01-28-2010 pneumococcal polysaccharide vaccine, 23 valent Sancho Woodruff [facility] [place] [address] Work Phone: Comment on above: Series: 09-26-2009 novel influenza-H1N1 -09, preservative-free, injectable Sancho Matthias Woodruff [facility] Work Phone: 07-24-2009 influenza virus vacc ine, whole virus Sancho Matthias Woodruff Work [facility] Work Phone: 08-29-2008 influenza virus vacc ine, whole virus Sancho Jaracel Work Phone: [facility] Work Phone: 08-24-2007 influenza virus vacc ine, whole virus Sancho Jaraabdirizak Work Phone: [facility] Work Phone: 06-10-2007 pneumococcal polysaccharide vaccine, 23 valent Sancho Woodruff [facility] [place] [address] Work Phone: Comment on above: Series: 11-21-1995 hepatitis B vaccine, adult dosage Sancho Woodruff MD Work Phone: [facility] Work Phone: 11-21-1995 hepatitis B vaccine, pediatric or pediatric/adolescent dosage Sancho Woodruff [facility] [address] Work Phone: Comment on above: Series: 06-20-1995 hepatitis B vaccine, adult dosage Sancho Woodruff MD Work Phone: [facility] Work Phone: 06-20-1995 hepatitis B vaccine, pediatric or pediatric/adolescent dosage Sancho Woodruff [facility] [address] Work Phone: Comment on above: Series: 05-16-1995 hepatitis B vaccine, pediatric or pediatric/adolescent dosage Sancho Woodruff [facility] [address] Work Phone: Comment on above: Series: 12-08-1992 tetanus and diphther ia toxoids, adsorbed, preservative free, for adult use (2 Lf of tetanus toxoid and 2 Lf of diphtheria toxoid) Sacnho Woodruff [facility] [address] Work Phone: Comment on above: Series: Payers Date Payer Category Payer Self-pay 10-10-2015 Managed Care (unspecified) 1 [phone] 2.7.9.955193.465.315 10-10-2015 Medicare supplementa l policy (as second payer) [employer] MEDICARE SUPPLEMENT 1.2.840.981215.1.13.647. 2.7.9.433333.609453.315 10-10-2015 Private Health Insurance xxx xxxxxx 2.16.840.1.430464.3.249. 13 10-10-2015 Private Health Insurance xxx [id number] 1.2.840.495772.1.13.385. 2.7.3.643182.315 10-10-2015 Private Health Insurance 1.2 .840.376056.1.13.385. 2.7.3.494480.315 10-10-2012 Medicare [id number] 12-08-2006 Medicare MEDICARE MEDICAR E PART A & B xxxxxxxxxxx 2006-Present [place] xxxxxxxxxxx 1.2.840.481049.1.13.385. 2.7.3.165015.315 12-08-2006 Medicare [id number] 1.2.840.856373.1.13.385. 2.7.3.869776.315 12-08-2006 Medicare 1.2.840.398978. 1.13.385. 2.7.3.354816.315 12-08-2006 Unknown 12-08-2006 Medicare [id number] 1940 Unknown [id number] 2.840.1.836922.3.579. 2.900 1941 Unknown [id number] 2.840.1.164506.3.579. 2.1068 1941 Unknown [id number] 2.16840.1.257240.3.579. 2.1068 1941 Unknown [id number] 2.16840.1.472387.3.579. 2.1068 1941 Unknown [id number] 2.16840.1.741028.3.579. 2.1068 1941 Unknown [id number] 2.16.840.1.320988.3.579. 2.1068 1941 Unknown [id number] 2.16840.1.328802.3.579. 2.1068 1941 Unknown [id number] 2.16.840.1.242645.3.579. 2.1068 1941 Unknown [id number] 2.16.840.1.225312.3.579. 2.1068 1941 Unknown [id number] 2.16.840.1.378699.3.579. 2.1068 1941 Unknown [id number] 2.16.840.1.386080.3.579. 2.1068 1941 Unknown [id number] 2.16.840.1.755938.3.579. 2.1068 1941 Unknown [id number] 2.16.840.1.681976.3.579. 2.1068 1941 Unknown [id number] 2.16.840.1.973033.3.579. 2.1068 1941 Unknown [id number] 2.16.840.1.676284.3.579. 2.1068 1941 Unknown [id number] 2.16.840.1.399366.3.579. 2.1068 1941 Unknown [id number] 2.16.840.1.272358.3.579. 2.1068 1941 Unknown [id number] 2.16.840.1.057010.3.579. 2.902 1941 Unknown [id number] 2.16.840.1.969935.3.579. 2.356 1941 Unknown [id number] 2.16.840.1.192721.3.579. 2.356 1941 Unknown [id number] 2.16.840.1.564733.3.579. 2.356 1941 Unknown [id number] 2.16.840.1.095594.3.579. 2.5 1941 Unknown [id number] 2.16.840.1.170378.3.579. 2.1245 1941 Unknown [id number] 2.16.840.1.727019.3.579. 2.1245 1941 Unknown [id number] 2.16.840.1.342911.3.579. 2.90 1941 Unknown [id number] 2.16.840.1.863597.3.579. 2.90 1941 Unknown [id number] 2.16.840.1.718441.3.579. 2. 1941 Unknown [id number] 2.16840.1.772322.3.579. 2. 1941 Unknown [id number] 2.840.1.050902.3.579. 2. 1941 Unknown [id number] 2.840.1.631207.3.579. 2. 1941 Unknown [id number] 2.840.1.769756.3.579. 2. 1941 Unknown [id number] 2.840.1.219436.3.579. 2. 1941 Unknown [id number] 2.840.1.189732.3.579. 2.1242 1941 Unknown [id number] 2.840.1.290382.3.579. 2.1242 1941 Unknown [id number] 2.840.1.121327.3.579. 2.1242 1941 Unknown [id number] 2.840.1.533109.3.579. 2.1242 1941 Unknown [id number] 2.16840.1.462801.3.579. 2.1242 1941 Unknown [id number] 2.16840.1.601586.3.579. 2.1242 1941 Unknown [id number] 2.16840.1.340125.3.579. 2.1243 1941 Unknown [id number] 2.16.840.1.967545.3.579. 2.1242 1941 Unknown [id number] 2.16.840.1.937133.3.579. 2.1242 1941 Unknown [id number] 2.16.840.1.445562.3.579. 2.1242 1941 Unknown [id number] 2.16.840.1.290027.3.579. 2.1242 1941 Unknown [id number] 2.16.840.1.905381.3.579. 2.1242 1941 Unknown [id number] 2.16.840.1.250084.3.579. 2.1242 1941 Unknown [id number] 2.16.840.1.987322.3.579. 2.1242 1941 Unknown [id number] 2.16.840.1.158907.3.579. 2.1242 1941 Unknown [id number] 2.16.840.1.109411.3.579. 2.1242 1941 Unknown [id number] 2.16.840.1.107644.3.579. 2.1242 1941 Unknown [id number] 2.16.840.1.113346.3.579. 2.1242 1941 Unknown [id number] 2.16.840.1.958492.3.579. 2.1242 1941 Unknown [id number] 2.16.840.1.831585.3.579. 2.1242 1941 Unknown [id number] 2.16.840.1.395530.3.579. 2.1242 1941 Unknown [id number] 2.16.840.1.387111.3.579. 2.1243 1941 Unknown [id number] 2.16.840.1.369047.3.579. 2.1242 1941 Unknown [id number] 2.16.840.1.454452.3.579. 2.1242 1941 Unknown [id number] 2.16.840.1.394828.3.579. 2.1242 1941 Unknown [id number] 2.16.840.1.421410.3.579. 2.1242 1941 Unknown [id number] 2.16.840.1.935132.3.579. 2.1242 1941 Unknown [id number] 2.16.840.1.113566.3.579. 2.1242 1941 Unknown [id number] 2.16.840.1.865287.3.579. 2.1242 1941 Unknown [id number] 2.16.840.1.864580.3.579. 2.1242 1941 Unknown [id number] 2.16.840.1.351675.3.579. 2.1242 1941 Unknown [id number] 2.16.840.1.386176.3.579. 2.1242 1941 Unknown [id number] 2.16.840.1.227835.3.579. 2.1242 1941 Unknown [id number] 2.16.840.1.451365.3.579. 2.1242 1941 Unknown [id number] 2.16.840.1.334979.3.579. 2.1242 1941 Unknown [id number] 2.16.840.1.472431.3.579. 2.1242 1941 Unknown [id number] 2.16.840.1.624810.3.579. 2.1242 1941 Unknown [id number] 2.16.840.1.904222.3.579. 2.1242 1941 Unknown [id number] 2.16.840.1.000985.3.579. 2.1242 1941 Unknown [id number] 2.16.840.1.041664.3.579. 2.1242 1941 Unknown [id number] 2.16.840.1.113051.3.579. 2.1242 1941 Unknown [id number] 2.16.840.1.656494.3.579. 2.1242 1941 Unknown [id number] 2.16.840.1.280173.3.579. 2.1242 1941 Unknown [id number] 2.16.840.1.479705.3.579. 2.1242 1941 Unknown [id number] 2.16.840.1.263005.3.579. 2.1242 1941 Unknown [id number] 2.16.840.1.238771.3.579. 2.1242 1941 Unknown [id number] 2.16.840.1.329617.3.579. 2.1242 1941 Unknown [id number] 2.16.840.1.555352.3.579. 2.1242 1941 Unknown [id number] 2.16.840.1.719042.3.579. 2.1242 1941 Unknown [id number] 2.16.840.1.731340.3.579. 2.1242 1941 Unknown [id number] 2.16.840.1.438188.3.579. 2.1242 1941 Unknown [id number] 2.16.840.1.274141.3.579. 2.1242 1941 Unknown [id number] 2.16.840.1.890812.3.579. 2.1243 1941 Unknown [id number] 2.16.840.1.653279.3.579. 2.1242 1941 Unknown [id number] 2.16.840.1.140572.3.579. 2.1243 1941 Unknown [id number] 2.16.840.1.109923.3.579. 2.1242 1941 Unknown [id number] 2.16.840.1.984522.3.579. 2.1242 1941 Unknown [id number] 2.16.840.1.519483.3.579. 2.1242 1941 Unknown [id number] 2.16.840.1.625291.3.579. 2.1242 1941 Unknown [id number] 2.16.840.1.290503.3.579. 2.1242 1941 Unknown [id number] 2.16.840.1.298434.3.579. 2.1242 1941 Unknown [id number] 2.16.840.1.570890.3.579. 2.1242 1941 Unknown [id number] 2.16.840.1.102594.3.579. 2.1243 1941 Unknown [id number] 2.16.840.1.701141.3.579. 2.1243 1941 Unknown [id number] 2.16.840.1.681172.3.579. 2.1243 1941 Unknown [id number] 2.16.840.1.716319.3.579. 2.1243 1941 Unknown [id number] 2.16.840.1.834755.3.579. 2.1243 1941 Unknown [id number] 2.16.840.1.058995.3.579. 2.1244 1941 Unknown [id number] 2.840.1.391864.3.579. 2.1244 1941 Unknown [id number] 2.840.1.078718.3.579. 2.1244 1941 Unknown [id number] 2.840.1.641459.3.579. 2.1244 1941 Unknown [id number] 2.840.1.135240.3.579. 2.1244 Medicare xxxxxxxxxx 2.840.1.630896.3.249. 13 Medicare [id number] Unknown [id number] 2.840.1.210136.3.579. 2.462 Unknown [id number] 2.840.1.977476.3.579. 2.462 Unknown [id number] 2.840.1.126746.3.579. 2.462 Unknown [id number] 2.840.1.995643.3.579. 2.462 Unknown [id number] 2.840.1.478190.3.579. 2.462 Unknown [id number] 2.840.1.152773.3.579. 2.462 Unknown [id number] 2.840.1.636568.3.579. 2.462 Unknown [id number] 2.840.1.952873.3.579. 2.462 Unknown [id number] 2.840.1.949821.3.579. 2.462 Unknown [id number] 2.840.1.428624.3.579. 2.462 Unknown [id number] 2.840.1.334746.3.579. 2.462 Unknown [id number] 2.16840.1.257418.3.579. 2.462 Unknown [id number] 2.16840.1.568787.3.579. 2.462 Unknown [id number] 2.16.840.1.515161.3.579. 2.462 Unknown [id number] 2.16.840.1.979845.3.579. 2.462 Social History Date Type Detail Facility Start: 01-02-2018 End: 01-10-2023 Tobacco smoking status NHIS Never smoker [facility] Work Phone: Start: 1940 Sex Assigned At Not on file [facility] Start: 06-25-2019 End: 07-30-2025 Alcohol intake Current drinker of alcohol (finding) [facility] Start: 02-12-2020 End: 11-19-2020 History SDOH Physical Activity DPW 2 [facility] Start: 01-17-2022 End: 03-20-2025 Exposure to SARS-CoV-2 (event) Not sure [facility] Start: 05-16-2022 End: 05-26-2022 Exposure to SARS-CoV-2 (event) Unable to assess [facility] Start: 05-22-2020 End: 01-10-2023 Tobacco use and exposure Never used [facility] Start: 11-19-2020 Alcohol Comment occasional [facility] Start: 11-19-2020 Alcohol Comment occasional [facility] Start: 03-09-2022 End: 06-12-2025 Former smoker Former smoker [facility] Tobacco smoking consumption unknown [facility] Start: 11-19-2020 End: 06-12-2025 Humiliation, Afraid, Rape, and Kick questionnaire [HARK] [facility] Start: 09-03-2022 Within the last year , have you been afraid of your partner or ex-partner? Patient refused [facility] Do you feel stress - tense, restless, nervous, or anxious, or unable to sleep at night because your mind is troubled all the time - these days [OSQ] Only a little [facility] (I/We) worried wheth er (my/our) food would run out before (I/we) got money to buy more. DK or Refused [facility] Start: 09-04-2018 Gender identity Identifies as female gender (finding) [facility] Start: 09-04-2018 Sexual orientation Heterosexual (fin ding) [facility] Start: 02-17-2023 Alcohol intake Defer [facility] Work Phone: Start: 04-05-2023 End: 06-19-2025 Alcohol intake Ex-drinker (finding) [facility] Work Phone: Start: 05-05-2023 Alcohol [facility] Start: 01-18-2025 Alcohol Comment glass of wine once a month [facility] Work Phone: Start: 1940 Sex Assigned At Female W [facility] Start: 09-03-2022 Sex Female (finding) [facility] NEGATED: Highlighted row - - [facility] Work Phone: NEGATED: Highlighted rowStart: NINF History of tobacco use Passive smoker [facility] Medical Equipment Procedure Code Equipment Code Equipment Origin al Text Equipment Identifier Dates Barrier 5 X 6in Bx/10 Adhesion Seprafilm - [id number] Start: 07-29-2016 Kit 8ml Matrix Hemostatic W/Thrombin Surgiflo - [id number] Start: 07-29-2016 Barrier 5 X 6in Bx/10 Adhesion Seprafilm - [id number] Start: 07-29-2016 Kit 8ml Matrix Hemostatic W/Thrombin Surgiflo - [id number] Start: 07-29-2016 Barrier 5 X 6in Bx/10 Adhesion Seprafilm - [id number] Start: 07-29-2016 Kit 8ml Matrix Hemostatic W/Thrombin Surgiflo - [id number] Start: 07-29-2016 Barrier 5 X 6in Bx/10 Adhesion Seprafilm - [id number] Start: 07-29-2016 Kit 8ml Matrix Hemostatic W/Thrombin Surgiflo - [id number] Start: 07-29-2016 Barrier 5 X 6in Bx/10 Adhesion Seprafilm - [id number] Start: 07-29-2016 Kit 8ml Matrix Hemostatic W/Thrombin Surgiflo - [id number] Start: 07-29-2016 Cup 4 X 32mm Humeral Reunion [facility] - [id number])[id number] LX, 1007532_[facility] FDA Start: 11-29-2019 Insert 4 X 32mm Humeral X3 Standard Reunion Rsa - [id number], 1007533_imp FDA Start: 11-29-2019 Baseplate 28mm Glenoid Reunion Rsa - [id number] [id number], 1007479_[facility] FDA Start: 11-29-2019 Screw 6.5 X 24mm Center Reunion Rsa - [id number], 1007480_imp FDA Start: 11-29-2019 Screw 4.5 X 24mm Peripheral Reunion Rsa - [id number] R4, 1007482_[facility] FDA Start: 11-29-2019 Glenosphere 6 X 32mm Concentric Reunion Rsa - [id number] P8, 1007516_[facility] FDA Start: 11-29-2019 Screw 4.5 X 16mm Peripheral Reunion Rsa - [id number])[id number] 1K, 1007517_imp FDA Start: 11-29-2019 Screw 4.5 X 16mm Peripheral Reunion Rsa - [id number])[id number] MM, 1007518_imp FDA Start: 11-29-2019 Stem 10 X 123mm Humeral Pressfit Camp-Coat Reunion Tsa - [id number])[id number])[id number], 1007523_imp FDA Start: 11-29-2019 Putty 5cc Grafto n Dbm - [id number] 1817789_[facility] Start: 05-19-2023 Kit Autoplex W/Vertaplex Hv Cement - S. 1817797_[facility] Start: 05-19-2023 Strip 10 X 2 X 0.6cm 12cc Sgl Mastergraft - S. ()[id number])[id number])[id number](21)., 1817791_[facility] FDA Start: 05-19-2023 [place] Set Screw 1817822_[facility] Start: 05-19-2023 Comment on above: Description: [place] S-2 Hemostat 4 X 8in Surgicel - S. ()[id number])[id number])[id number](21)., 1817714_[facility] FDA Start: 05-19-2023 Comment on above: Description: Used MA N for hemostasis S-2 Hemostat 2 X 4in Surgicel Fibrillar - S. ()[id number])[id number](21)., 1817719_[facility] FDA Start: 05-19-2023 Comment on above: Description: Used MA N for hemostasis S-2 Hemostat 8 X 12. 5cm X 10mm Surgifoam Gelatin Sponge - S. 1817720_[facility] Start: 05-19-2023 Comment on above: Description: Used MA N for hemostasis S-2 Sealant 10ml Hemostatic Matrix Fast Prep Floseal - S. ()[id number])[id number])[id number](21)., 1817723_[facility] FDA Start: 05-19-2023 Comment on above: Description: Used MA N for hemostasis S-2 Tomasz Momo 40mm 1817806_[facility] Start: 05-19-2023 Comment on above: Description: LOAD 19 Fenestrated Scre w 8.5 60mm 1817815_[facility] Start: 05-19-2023 Comment on above: Description: [place] s-2 Fenestrated Scre w 7.5 50mm 1817819_[facility] Start: 05-19-2023 Comment on above: Description: [place] S-2 Functional Status Date Assessment Result Facility 07-31-2025 Functional status [facility] 07-31-2025 [facility] Work Phone: 07-30-2025 Functional status 138/72 025 3:00 PM EDT Sona Barahona, SEW ON OPERATOR 138/72 [facility] Work Phone: 07-30-2025 Vital signs 86 07/30/2025 3: 00 PM EDT Sona Barahona, SEW ON OPERATOR [facility] Work Phone: 06-12-2025 Patient Health Questionnaire 2 item (PHQ-2) [Reported] [facility] Work Phone: 06-12-2025 [place] - suicide severity rating scale screener - recent [C-SSRS] [facility] Work Phone: Functional observable [facility] NEGATED: Highlighted row Functional performance Functional status health issues are not documented [facility] Work Phone: Mental Status Date Assessment Result Facility 01-21-2023 Cognitive functi ons [id number] [facility] NEGATED: Highlighted row Cognitive function [Interpretation] Cognitive status health issues are not documented Disease [facility] Work Phone: Clinical Notes 02-25-2021 to 07-30-2025 Sancho Woodruff MD - 07/30/2025 3:00 PM EDT Note Date & Type Note Facility 07-30-2025 History of Present illness Narrative Subjective Patient ID: Alma Echeverria is a 84 y.o. female who presents for Pre-op Exam and Follow-up (3 mo CS). HPI 84 yo for wound surgery. No history of IL or CHF. Never smoker. Tolerates 1 flight without dyspnea. EKG normal sinus rhythm. Review of Systems Denies chest pains palpitations, cough or shortness of breath, no change in exercise tolerance or capacity. Objective BP 138/72 Pulse 86 Wt 61.7 kg (136 lb) SpO2 97% BMI 30.49 kg/m Physical Exam No carotid bruit, thyroid palpates normal. No cervical adenopathy. Heart is regular with mitral regurg murmur 2 out of 6. Lungs are clear to auscultation. 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 Low voltage relates to body habitus. I have ordered a CBC and CMP and will addend after review of labs. Most recent labs in April were unremarkable but are not within 30 days of the planned procedure. Provided lab returns are normal she should be able to proceed with the planned procedure without further testing. documented in this encounter [facility] Work Phone: 07-02-2025 Progress note Note Date/Time July 02, 2025 10:02am [facility] [address] [place] [id number] Progress Note - Wound Care 07/02/25 0956 MR#: [id number] Acct: [id number] Name: ALMA ECHEVERRIA Rep #:[id number] 07 : 1940 84 From: Sylvia Cool MD PCP: Dr. Sancho Woodruff MD Status:RE G RCR Location: History of Present Illness Date of Service: 07/01/25 Chief Complaint: Sacral pressure ulceration History of Wound: The patient is seen today on behalf of the patient's regular Wound Center provider, Dr. Sylvia Cool, and whose medical history has been reviewed, as documented below: The patient is an 84-year-old female who presented with a sacral pressure ulcer that had been gradually worsening over a period of six months. The ulcer developed initially as a sensitive spot that evolved into a cavity without significant visual symptoms of hemorrhage or discharge. The management had involved Medihoney applications and packing. The patient's medical history is significant for atrial fibrillation, managed with Apixaban, with implications for future surgical interventions due to bleeding risks. She has a history of lumbar spinal fusion with implanted metal hardware. Historical records indicate maintained integrity of sacral spinal hardware, mitigating concerns regarding hardware-related complications. Dietary habits and past management strategies reflect an understanding of nutritional needs consistent with ongoing medical recommendations. The patient believes her pressure ulcer started as a small abscess that turned into a wound. She puts significant pressure on it daily while leaning back in her recliner at home. The patient is not a smoker. She is not diabetic. Subjective Subjective 29 April 2025: The patient is an 84-year-old female presenting with a pressure ulcer. The ulcerhas been persistent, and the patient has been managing it by offloading pressureby sleeping on her right side. The wound has not yet healed completely, and the patient has not received the wound vacuum therapy device yet. The wound measures 1.5 x 1.5 cm and is 1 cm deep, consistent with previous measurements. The patient has been advised to use a wound vacuum to promote granulation and closure of the ulcer. The patient is considering surgical intervention if the wound vacuum therapy does not yield results in a few weeks. The patient is on blood thinners, which would require hospitalization for a week if surgical intervention is pursued. Attestation: Documentation on this patient encounter was supported using ambient scribe technology/ voice AI technology. The patient consented to recording for the purpose of documenting the encounter. Provider reviewed content of the generatednote prior to signature. 27 May 2025: Patient doing well overall. Saw Dr. Singleton on my behalf last week. He recommended continued treatment with the Aquacel Ag. Patient does not want to do the wound VAC, she feels is too cumbersome. She is not interested in surgery at this time as she agrees with continue local wound care, and my plan for labs and a biopsy today. Patient does not currently have a pressure offloading bed at home and does not want one at this time as she reports her house is too small. She reports that she does lay on the wound/sleep on this area. 17 Jun 2025: Doing well overall but making minimal progress. She is concerned that it may berelated to the hardware that she had in her sacrum from a pelvis/sacrum fracturethat she reports she had 3 years ago. CURRENT ENCOUNTER, 02 July 2025: CT scan reviewed with the patient today. No official read but I do not see any involvement of the hardware near the wound (hardware is in the upper right pelvis/sacrum) and I do not see any osteomyelitis. She reports compliance withdressing changes but she has been sitting on the wound. Labs were reviewed and she has appropriate nutrition for wound healing and no diabetes. No personal or family history of bleeding or clotting problems but she does havea history of atrial fibrillation for which she takes apixaban (which her doctor says she can discontinue before surgeries). Objective Data Objective Data Vital Signs: Vital Signs Temp Pulse Resp BP O2 Del Method 97.7 F L 80 18 147/81 H Room Air 07/01/25 09:36 07/01/25 09:36 07/01/25 09:36 07/01/25 09:36 07/01/25 09:36 Oxygen Delivery Method Room Air Charges/Coding Procedures Integumentary 111xxx-113xx: 95108 Vivian subq tissue 20 sq cm/< Physical Exam Narrative Sacral wound Stage III 2 x 2 cm and 1 cm deep No exposed bone There is no visible exposure of hardware or any palpable hardware No drainage. No fluid collections or induration Granulation tissue at the base with some fibrinous exudate Debridement Note Debridement Note Wound debrided: Sacral ulcer Laterality: Not Applicable Wound Grade/Stage: Stage III Type of Debridement: Excisional debridement Anesthesia Used: 4% Lidocaine Solution Depth: in the subcutaneous layer Percentage of wound debrided: 100 Instrument Used: 7mm curette Tissue Removed: Fibrinous exudate Severity: Fat Layer Exposed Amount of bleeding with debridement: Mild Bleeding Controlled with: Pressure Patient tolerated procedure: Patient tolerated procedure well Post-Debridement Measurements and Additional Note: Post-Debridement Measurements/Treatment - Nurse 1 - General Ulcer Assessment Start: 06/17/25 09:52 Freq: Status: Active Protocol: KERI Activity Type Activity Date Activity User E-sign Co-sign Detail Recorded Client Recorded Date Recorded By Document 06/17/25 09:52 ML [id number] 06/17/25 09:55 ML Document 07/01/25 09:36 DS [id number] 07/01/25 09:45 DS 06/17/25 07/01/25 09:52 09:36 - Today's Visit Information Type of service Follow-up Visit Follow-up Visit (Physician/[employer] (Physician/[employer] ) ) Arrival Mode Ambulatory Ambulatory,Cane Accompanied by daughter Patient Identification Verified (Name & Yes Yes ) Patient Requires Transmission-Based No Precautions Safety Precautions Fall Prevention Vital Signs Temperature (97.8 F-99.1 F) 96.9 F L 97.7 F L Temperature Source Temporal Temporal Pulse Rate (60-100) 92 80 Pulse Location Monitor Monitor Respiratory Rate (12-18) 14 18 Respiratory rate source Monitor Monitor Oxygen Delivery Method Room Air Blood Pressure (90/60-120/80) 156/68 H 147/81 H Blood Pressure Mean (mm Hg) 97 103 Source Monitor Monitor Position Semi-Fowlers Sitting Blood Pressure Location Right Arm Left Arm History Since Last Visit- (Skip if this is Patient's initial visit) Have you changed medications since your No No last visit? Any new allergies or adverse reactions No No Had a fall/change in ADL's that may No No increase risk of falls Signs or symptoms of abuse and/or No No neglect since last visit Have you been in the hospital since your No No last visit? Has dressing in place as prescribed Yes Yes Has compression in place as prescribed N/A N/A Has offloadiing in place as prescribed N/A N/A Experienced any changes in pain level or No No management Left Footwear Regular Shoe Right Footwear Regular Shoe Pain Scale: 0-10 Numeric Is Patient Pain Free? Yes No WC - Nurse 1 - General Ulcer Measurement Start: 06/17/25 09:52 Freq: Status: Active Protocol: Activity Type Activity Date Activity User E-sign Co-sign Detail Recorded Client Recorded Date Recorded By Document 06/17/25 09:52 ML [id number] 06/17/25 09:55 ML Document 07/01/25 09:36 DS [id number] 07/01/25 09:45 DS 06/17/25 07/01/25 09:52 09:36 Wound Center Nurse 1 #1 Coccyx -Current Size (cm) - Length 2 2.0 -Current Size (cm) - Width 2 2.0 -Current Size (cm) - Depth 1.5 1.1 -Total Square Cm 4 4.00 -Date of Last Picture (Recall this 07/01/25 field) -Photo Taken Yes -Tunneling No -Undermining/Tunneling No -Circular Undermining No -Exudate Amt Medium -Exudate Type Serosanguineous -Wound Margin Distinct, Outline Attached -Granulation Amt Medium (34-66%) Medium (34-66%) -Granulation Quality [place] -Slough/Fibrin Yes -Necrosis Amt Medium (34-66%) Small (1-33%) -Necrotic Tissue Type Adherent Slough Adherent Slough -Texture (Danelle-wound Skin Appearance) Assessed Assessed -Moisture (Danelle-wound Skin Appearance) Assessed Assessed -Color (Danelle-wound Skin Appearance) Assessed Assessed -Temperature (Danelle-wound Skin No Abnormality No Abnormality Appearance) (Pt Warm) (Pt Warm) -Tenderness on Palpation (Danelle-wound No No Skin Appearance) -Ulcer Cleansing Rinsed/ Soap and Water Irrigated with Saline -Foul Odor after Cleansing No No -Anesthetic Used 5% Lidocaine 5% Lidocaine Gel Gel WC - Nurse 2 - General Ulcer CM Notes Start: 06/17/25 09:52 Freq: Status: Active Protocol: Activity Type Activity Date Activity User E-sign Co-sign Detail Recorded Client Recorded Date Recorded By Document 06/17/25 10:32 [id number] 06/17/25 10:34 Document 07/01/25 10:02 [id number] 07/01/25 10:11 06/17/25 07/01/25 10:32 10:02 Wound Center Nurse 2 #1 Coccyx -Time 10:33 10:03 -Correct Patient Yes Yes -Correct Side, Site, Position Yes Yes -Correct Procedure Yes Yes -Procedure Performed Yes Yes -Type of Procedure Debridement Debridement -Clinical Debridement Subcutaneous Muscle / Fascia -Tissue Removed Subcutaneous Muscle -Post Debridement (cm) - Length 2 2 -Post Debridement (cm) - Width 2.2 2 -Post Debridement (cm) - Depth 1.0 1 -Total Square (Post) (cm) 4.4 4 -Area of Debridement (cm) - Length 2 2 -Area of Debridement (cm) - Width 2.2 2 -Total Square (Area) (cm) 4.4 4 -Tunneling No No -Undermining/Tunneling No No -Circular Undermining No No -Wound/Ulcer Outcome Not Healed Not Healed -Ulcer Cleansing Rinsed/ Rinsed/ Irrigated with Irrigated with Saline Saline -Foul Odor after Cleansing No No -Bioengineered Tissue No No -Bleeding Controlled with Pressure Pressure -Treatment Response Procedure Procedure Tolerated Well Tolerated Well -Offloading No No -Debridement - Subq, 1st 20sq cm Yes -Debridement - Muscle / Fascia, 1st Yes 20sq cm Pain Scale: 0-10 Numeric Is Patient Pain Free? Yes Yes - Nurse 3 - General Ulcer D/C NN Start: 06/17/25 09:52 Freq: Status: Active Protocol: Activity Type Activity Date Activity User E-sign Co-sign Detail Recorded Client Recorded Date Recorded By Document 06/17/25 10:46 DIVYA [id number] 06/17/25 10:46 KW Document 07/01/25 10:11 [id number] 07/01/25 10:12 06/17/25 07/01/25 10:46 10:11 Wound Care Center Nurse 3 #1 Coccyx -Ulcer Cleansing Rinsed/ Irrigated with Saline -Foul Odor after Cleansing No -Primary Dressing Applied Aquacel AG 4x4 Aquacel AG 4x4 -Primary Dressing Covered/Secured with Dry Gauze, Dry Gauze, Secured with Secured with Tape Tape -Aquacel AG 4x4 1 1 Pain Scale: 0-10 Numeric Is Patient Pain Free? Yes Yes - Visit Discharge Discharge Condition Stable Stable Ambulatory Status Ambulatory,Cane Ambulatory, Walker Transportation Private Auto Private Auto Accompanied by family member Medication Reconcilliation completed & No Yes provided to patient/care provider Clinical Summary of Care Provided Yes Yes Notes: CT scan reviewed. Surgical debridement discussion made today. Assessment/Plan Assessment/Plan (1) Sacral decubitus ulcer, stage III: CODE(S): L89.153 - Pressure ulcer of sacral region, stage 3 PLAN: Patient deferring pressure offloading with pressure offloading bed at thistime. Patient also deferring wound VAC. Reviewed nutrition labs which include albumin of 3.6, prealbumin of 11, and she has an A1c of 5.2. She is not anemic and her hemoglobin is 12 Biopsy of the wound revealed cutaneous ulcer with active chronic inflammation and reactive epidermal changes (no signs of malignancy). These results were discussed and shared with the patient today at our visit. We are ordering a CT scan to examine the sacrum and any signs of hardware near the wound edges. Patient will follow-up with me in 2 weeks She will continue pressure offloading and daily dressing changes with Aquacel Ag(she cannot get twice daily wet-to-dry dressings). I talked to her briefly about excision and closure of the wound as she is starting to be more open to this idea as we deferred in the past per patient preference. Patient happy with plan. PLAN: Plan Plan from 01 July 2025: I talked to the patient extensively about the risks, benefits, and alternatives to surgery versus continuing dressing changes. She is interested in surgical debridement of the wound with irrigating wound VAC placement followed by later flap reconstruction versus primary closure. She understands the risks of wound healing complications including making a larger wound and flap failure (partial flap necrosis or flap loss resulting in larger wound requiring further interventions and wound care). She understands the risks of bleeding, infection, DVT/PE, damage to surrounding structures, and the risks of anesthesia including perioperative hypotension or hypertension leading to stroke. She also understands the risks of being off of her Eliquis (stroke fromatrial fibrillation). She would like to proceed with surgical intervention and understands the postoperative setting protocol as well as the need for possible rehabilitation as she does not have a pressure offloading bed at home and does not want to get one. 07/02/25 1002 <Electronically signed by Sylvia Cool MD> Cosigner Signature (if applicable): CC: ~ Signed [facility] Work Phone: [phone] Progress note [facility] [address] [place] [address] Progress Note - Wound Care 07/02/25 0956 MR#: [id number] Acct: [id number] Name: ALMA ECHEVERRIA Rep #:[id number] 07 : 1940 84 From: Sylvia Cool MD PCP: Dr. Sancho Woodruff MD Status:RE G RCR Location: History of Present Illness Date of Service: 07/01/25 Chief Complaint: Sacral pressure ulceration History of Wound: The patient is seen today on behalf of the patient's regular Wound Center provider, Dr. Sylvia Cool, and whose medical history has been reviewed, as documented below: The patient is an 84-year-old female who presented with a sacral pressure ulcer that had been gradually worsening over a period of six months. The ulcer developed initially as a sensitive spot that evolved into a cavity without significant visual symptoms of hemorrhage or discharge. The management had involved [employer] applications and packing. The patient's medical history is significant for atrial fibrillation, managed with Apixaban, with implications for future surgical interventions due to bleeding risks. She has a history of lumbar spinal fusion with implanted metal hardware. Historical records indicate maintained integrity of sacralspinal hardware, mitigating concerns regarding hardware-related complications. Dietary habits and past management strategies reflect an understanding of nutritional needs consistent with ongoing medical recommendations. The patient believes her pressure ulcer started as a small abscess that turned into a wound. She puts significant pressure on it daily while leaning back in her recliner at home. The patient is not asmoker. She is not diabetic. Subjective Subjective 29 April 2025: The patient is an 84-year-old female presenting with a pressure ulcer. The ulcerhas been persistent, and the patient has been managing it by offloading pressureby sleeping on her right side. The wound has not yet healed completely, and the patient has not received the wound vacuum therapy device yet. The wound measures 1.5 x 1.5 cm and is 1 cm deep, consistent with previous measurements. The patient has been advised to use a wound vacuum to promote granulation and closure of the ulcer. The patient is considering surgical intervention if the wound vacuum therapy does not yield resultsin a few weeks. The patient is on blood thinners, which would require hospitalization for a week ifsurgical intervention is pursued. Attestation: Documentation on this patient encounter was supported using ambient scribe technology/ voice AI technology. The patient consented to recording for the purpose of documenting the encounter. Provider reviewed content of the generatednote prior to signature. 27 May 2025: Patient doing well overall. Saw Dr. Singleton on my behalf last week. He recommended continued treatment with the Aquacel Ag. Patient does not want to do the wound VAC, she feels is too cumbersome. She is not interested in surgery at this time as she agrees with continue local wound care, and my plan for labs and a biopsy today. Patient does not currently have a pressure offloading bed at home and does not want one at this time as she reports her house is too small. She reports that she does lay on the wound/sleep on this area. 17 Jun 2025: Doing well overall but making minimal progress. She is concerned that it may berelated to the hardware that she had in her sacrum from a pelvis/sacrum fracturethat she reports she had 3 years ago. CURRENT ENCOUNTER, 02 July 2025: CT scan reviewed with the patient today. No official read but I do not see any involvement of the hardware near the wound (hardware is in the upper right pelvis/sacrum) and I do not see any osteomyelitis. She reports compliance withdressing changes but she has been sitting on the wound. Labs were reviewed and she has appropriate nutrition for wound healing and no diabetes. No personal or family history of bleeding or clotting problems but she does havea history of atrialfibrillation for which she takes apixaban (which her doctor says she can discontinue before surgeries). Objective Data Objective Data Vital Signs: Vital Signs Temp Pulse Resp BP O2 Del Method 97.7 F L 80 18 147/81 H Room Air 07/01/25 09:36 07/01/25 09:36 07/01/25 09:36 07/01/25 09:36 07/01/25 09:36 Oxygen Delivery Method Room Air Charges/Coding Procedures Integumentary 111xxx-113xx: 88397 Vivian subq tissue 20 sq cm/< Physical Exam Narrative Sacral wound Stage III 2 x 2 cm and 1 cm deep No exposed bone There is no visible exposure of hardware or any palpable hardware No drainage. No fluid collections or induration Granulation tissue at the base with some fibrinous exudate Debridement Note Debridement Note Wound debrided: Sacral ulcer Laterality: Not Applicable Wound Grade/Stage: Stage III Type of Debridement: Excisional debridement Anesthesia Used: 4% Lidocaine Solution Depth: in the subcutaneous layer Percentage of wound debrided: 100 Instrument Used: 7mm curette Tissue Removed: Fibrinous exudate Severity: Fat Layer Exposed Amount of bleeding with debridement: Mild Bleeding Controlled with: Pressure Patient tolerated procedure: Patient tolerated procedure well Post-Debridement Measurements and Additional Note: Post-Debridement Measurements/Treatment - Nurse 1 - General Ulcer Assessment Start: 06/17/25 09:52 Freq: Status: Active Protocol: KERI Activity Type Activity Date Activity User E-sign Co-sign Detail Recorded Client Recorded Date Recorded By Document 06/17/25 09:52 ML [id number] 06/17/25 09:55 ML Document 07/01/25 09:36 DS [id number] 07/01/25 09:45 DS 06/17/25 07/01/25 09:52 09:36 - Today's Visit Information Type of service Follow-up Visit Follow-up Visit (Physician/[employer] (Physician/[employer] ) ) Arrival Mode Ambulatory Ambulatory,Cane Accompanied by daughter Patient Identification Verified (Name & Yes Yes ) Patient Requires Transmission-Based No Precautions Safety Precautions Fall Prevention Vital Signs Temperature (97.8 F-99.1 F) 96.9 F L 97.7 F L Temperature Source Temporal Temporal Pulse Rate (60-100) 92 80 Pulse Location Monitor Monitor Respiratory Rate (12-18) 14 18 Respiratory rate source Monitor Monitor Oxygen Delivery Method Room Air Blood Pressure (90/60-120/80) 156/68 H 147/81 H Blood Pressure Mean (mm Hg) 97 103 Source Monitor Monitor Position Semi-Fowlers Sitting Blood Pressure Location Right Arm Left Arm History Since Last Visit- (Skip if this is Patient's initial visit) Have you changed medications since your No No last visit? Any new allergies or adverse reactions No No Had a fall/change in ADL's that may No No increase risk of falls Signs or symptoms of abuse and/or No No neglect since last visit Have you been in the hospital since your No No last visit? Has dressing in place as prescribed Yes Yes Has compression in place as prescribed N/A N/A Has offloadiing in place as prescribed N/A N/A Experienced any changes in pain level or No No management Left Footwear Regular Shoe Right Footwear Regular Shoe Pain Scale: 0-10 Numeric Is Patient Pain Free? Yes No WC - Nurse 1 - General Ulcer Measurement Start: 06/17/25 09:52 Freq: Status: Active Protocol: Activity Type Activity Date Activity User E-sign Co-sign Detail Recorded Client Recorded Date Recorded By Document 06/17/25 09:52 ML [id number] 06/17/25 09:55 ML Document 07/01/25 09:36 DS [id number] 07/01/25 09:45 DS 06/17/25 07/01/25 09:52 09:36 Wound Center Nurse 1 #1 Coccyx -Current Size (cm) - Length 2 2.0 -Current Size (cm) - Width 2 2.0 -Current Size (cm) - Depth 1.5 1.1 -Total Square Cm 4 4.00 -Date of Last Picture (Recall this 07/01/25 field) -Photo Taken Yes -Tunneling No -Undermining/Tunneling No -Circular Undermining No -Exudate Amt Medium -Exudate Type Serosanguineous -Wound Margin Distinct, Outline Attached -Granulation Amt Medium (34-66%) Medium (34-66%) -Granulation Quality [place] -Slough/Fibrin Yes -Necrosis Amt Medium (34-66%) Small (1-33%) -Necrotic Tissue Type Adherent Slough Adherent Slough -Texture (Danelle-wound Skin Appearance) Assessed Assessed -Moisture (Danelle-wound Skin Appearance) Assessed Assessed -Color (Danelle-wound Skin Appearance) Assessed Assessed -Temperature (Danelle-wound Skin No Abnormality No Abnormality Appearance) (Pt Warm) (Pt Warm) -Tenderness on Palpation (Danelle-wound No No Skin Appearance) -Ulcer Cleansing Rinsed/ Soap and Water Irrigated with Saline -Foul Odor after Cleansing No No -Anesthetic Used 5% Lidocaine 5% Lidocaine Gel Gel WC - Nurse 2 - General Ulcer CM Notes Start: 06/17/25 09:52 Freq: Status: Active Protocol: Activity Type Activity Date Activity User E-sign Co-sign Detail Recorded Client Recorded Date Recorded By Document 06/17/25 10:32 [id number] 06/17/25 10:34 Document 07/01/25 10:02 [id number] 07/01/25 10:11 06/17/25 07/01/25 10:32 10:02 Wound Center Nurse 2 #1 Coccyx -Time 10:33 10:03 -Correct Patient Yes Yes -Correct Side, Site, Position Yes Yes -Correct Procedure Yes Yes -Procedure Performed Yes Yes -Type of Procedure Debridement Debridement -Clinical Debridement Subcutaneous Muscle / Fascia -Tissue Removed Subcutaneous Muscle -Post Debridement (cm) - Length 2 2 -Post Debridement (cm) - Width 2.2 2 -Post Debridement (cm) - Depth 1.0 1 -Total Square (Post) (cm) 4.4 4 -Area of Debridement (cm) - Length 2 2 -Area of Debridement (cm) - Width 2.2 2 -Total Square (Area) (cm) 4.4 4 -Tunneling No No -Undermining/Tunneling No No -Circular Undermining No No -Wound/Ulcer Outcome Not Healed Not Healed -Ulcer Cleansing Rinsed/ Rinsed/ Irrigated with Irrigated with Saline Saline -Foul Odor after Cleansing No No -Bioengineered Tissue No No -Bleeding Controlled with Pressure Pressure -Treatment Response Procedure Procedure Tolerated Well Tolerated Well -Offloading No No -Debridement - Subq, 1st 20sq cm Yes -Debridement - Muscle / Fascia, 1st Yes 20sq cm Pain Scale: 0-10 Numeric Is Patient Pain Free? Yes Yes - Nurse 3 - General Ulcer D/C NN Start: 06/17/25 09:52 Freq: Status: Active Protocol: Activity Type Activity Date Activity User E-sign Co-sign Detail Recorded Client Recorded Date Recorded By Document 06/17/25 10:46 [email or web address] [id number] 06/17/25 10:46 KW Document 07/01/25 10:11 [id number] 07/01/25 10:12 06/17/25 07/01/25 10:46 10:11 Wound Care Center Nurse 3 #1 Coccyx -Ulcer Cleansing Rinsed/ Irrigated with Saline -Foul Odor after Cleansing No -Primary Dressing Applied Aquacel AG 4x4 Aquacel AG 4x4 -Primary Dressing Covered/Secured with Dry Gauze, Dry Gauze, Secured with Secured with Tape Tape -Aquacel AG 4x4 1 1 Pain Scale: 0-10 Numeric Is Patient Pain Free? Yes Yes - Visit Discharge Discharge Condition Stable Stable Ambulatory Status Ambulatory,Cane Ambulatory, Walker Transportation Private Auto Private Auto Accompanied by family member Medication Reconcilliation completed & No Yes provided to patient/care provider Clinical Summary of Care Provided Yes Yes Notes: CT scan reviewed. Surgical debridement discussion made today. Assessment/Plan Assessment/Plan (1) Sacral decubitus ulcer, stage III: CODE(S): L89.153 - Pressure ulcer of sacral region, stage 3 PLAN: Patient deferring pressure offloading with pressure offloading bed at thistime. Patient also deferring wound VAC. Reviewed nutrition labs which include albumin of 3.6, prealbumin of 11, and she has an A1c of 5.2. She is not anemic and her hemoglobin is 12 Biopsy of the wound revealed cutaneous ulcer with active chronic inflammation and reactive epidermal changes (no signs of malignancy). These results were discussed and shared with the patient today at our visit. We are ordering a CT scan to examine the sacrum and any signs of hardware near the wound edges. Patient will follow-up with me in 2 weeks She will continue pressure offloading and daily dressing changes with Aquacel Ag(she cannot get twice daily wet-to-dry dressings). I talked to her briefly about excision and closure of the wound as she is starting to be more open to this idea as we deferred in the past per patient preference. Patient happy with plan. PLAN: Plan Plan from 01 July 2025: I talked to the patient extensively about the risks, benefits, and alternatives to surgery versus continuing dressing changes. She is interested in surgical debridement of the wound with irrigating wound VAC placement followed by later flap reconstruction versus primary closure. She understands therisks of wound healing complications including making a larger wound and flap failure (partial flapnecrosis or flap loss resulting in larger wound requiring further interventions and wound care). She understands the risks of bleeding, infection, DVT/PE, damage to surrounding structures, and the risks of anesthesia including perioperative hypotension or hypertension leading to stroke. She also und erstands the risks of being off of her Eliquis (stroke fromatrial fibrillation). She would like to proceed with surgical intervention and understands the postoperative setting protocol as well as theneed for possible rehabilitation as she does not have a pressure offloading bed at home and does not want to get one. 07/02/25 1002 Cosign Signature (if applicable): CC: ~ Signed [facility]09-15-2025 Telephone encounter Note* Telephone Encounter - Shirley Perez MA - 06/24/2025 2:43 PM EDT Received refill request electronically via [employer] [facility]. Pt last seen 06/19/2025, F/u in 6 months, patient has office visit 12/18/2025. Refilled Propafenone 150mg Twice a Day #180 with 3 refills. Rx sent to [facility]. [id number] Miscellaneous Notes* Telephone Encounter - Shirley Perez MA - 06/24/2025 2:43 PM EDT Received refill request electronically via [employer]. Pt last seen 06/19/2025, F/u in 6 months, patient has office visit 12/18/2025. Refilled Propafenone 150mg Twice a Day #180 with 3 refills. Rx sent to [facility]. documented in this [id number] Evaluation + Plan note* Assessment & Plan Note - Wang Borges MD - 06/19/2025 11:55 AM EDT Associated Problem(s): Dyslipidemia LDL was 54 in April 2025 on 5 mg of rosuvastatin, no changes [id number] Evaluation + Plan note* Assessment & Plan Note - Wang Borges MD - 06/19/2025 11:55 AM EDTAssociated Problem(s): Coronary artery disease involving [place] coronary artery of [place] heart without angina pectoris History of trivial coronary disease by coronary CCTA. No aspirin given chronic Eliquis use and risk-benefit ratio in an 84-year-old. Continue statin. [id number] Evaluation + Plan note* Assessment & Plan Note - Wang Borges MD - 06/19/2025 11:55 AM EDTAssociated Problem(s): Preop cardiovascular exam Cleared for her upcoming surgery with Dr. Cool. She has nonobstructive coronary artery disease by CCTA a few years ago. No recurrent symptoms of angina. I would recommend continuing perioperative propafenone, based on pharmacokinetics, she can stop Eliquis 48 hours prior. No need for a bridge. [id number] Miscellaneous Notes* Assessment & Plan Note - Wang Borges MD - 06/19/2025 11:55 AM EDTAssociated Problem(s): Dyslipidemia LDL was 54 in April 2025 on 5 mg of rosuvastatin, no changes * Assessment & Plan Note - Wang Borges MD - 06/19/2025 11:55 AM EDT Associated Problem(s): Coronary artery disease involving [place] coronary artery of [place] heart without angina pectoris History of trivial coronary disease by coronary CCTA. No aspirin given chronic Eliquis use and risk-benefit ratio in an 84-year-old. Continue statin. * Assessment & Plan Note - Wang Borges MD - 06/19/2025 11:55 AM EDT Associated Problem(s): Preop cardiovascular exam Cleared for her upcoming surgery with Dr. Cool. She has nonobstructive coronary artery disease by CCTA a few years ago. No recurrent symptoms of angina. I would recommend continuing perioperative propafenone, based on pharmacokinetics, she can stop Eliquis 48 hours prior. No need for a bridge. * Assessment & Plan Note - Wang Borges MD - 06/19/2025 11:54 AM EDT Associated Problem(s): HTN (hypertension) Home blood pressure is good on her current regimen that includes Cardizem CD 240 mg once daily * Assessment & Plan Note - Wang Borges MD - 06/19/2025 11:54 AM EDT Associated Problem(s): Atrial fibrillation (HCC) Rare episodes of paroxysmal atrial fibrillation. She has taken additional doses of propafenone. Sheis on a low maintenance dose at 150 twice daily. I am going to reduce her Eliquis dose given age greater than 80, weight under 60 kg to 2.5 twice daily. documented in this [id number] Evaluation + Plan note* Assessment & Plan Note - Wang Borges MD - 06/19/2025 11:54 AM EDT Associated Problem(s): HTN (hypertension) Home blood pressure is good on her current regimen that includes Cardizem CD 240 mg once daily [id number] Evaluation + Plan note* Assessment & Plan Note - Wang Borges MD - 06/19/2025 11:54 AM EDTAssociated Problem(s): Atrial fibrillation (HCC) Rare episodes of paroxysmal atrial fibrillation. She has taken additional doses of propafenone. Sheis on a low maintenance dose at 150 twice daily. I am going to reduce her Eliquis dose given age greater than 80, weight under 60 kg to 2.5 twice daily. [id number] NoteInterventional Cardiology Telephone Visit Follow-up Heart & Vascular [facility] 06/19/2025 Wang Borges MD [address] [address] Patient: Alma Echeverria Date of : 1940 (84 y.o.) Referring Provider: No ref. provider found PCP: Sancho Woodruff MD Patient Location: Patient's Home Patient phone : [phone] This visit has been fully reviewed with the patient and verbal consent has been obtained. I discussed risks, benefits and alternatives of a video visit telemedicine consultation with the patient (and any accompanying persons) including the risks that the patient's personal health details and medical records will be discussed over real-time, synchronous, interactive video/audio/telecommunication technology, the visit will not be recorded without the express consent of both the provider and the patient, and that there are inherent diagnostic limitations compared to [id number] evaluations. They elected to proceed with the telephone visit telemedicine consultation. Assessment & Plan Atrial fibrillation (HCC) Rare episodes of paroxysmal atrial fibrillation. She has taken additional doses of propafenone. She is on a low maintenance dose at 150 twice daily. I am going to reduce her Eliquis dose given age greater than 80, weight under 60 kg to 2.5 twice daily. HTN (hypertension) Home blood pressure is good on her current regimen that includes Cardizem CD 240 mg once daily Preop cardiovascular exam Cleared for her upcoming surgery with Dr. Cool. She has nonobstructive coronary artery disease by CCTA a few years ago. No recurrent symptoms of angina. I would recommend continuing perioperative propafenone, based on pharmacokinetics, she can stop Eliquis 48 hours prior. No need for a bridge. Coronary artery disease involving [place] coronary artery of [place] heart without angina pectoris History of trivial coronary disease by coronary CCTA. No aspirin given chronic Eliquis use and risk-benefit ratio in an 84-year-old. Continue statin. Dyslipidemia LDL was 54 in April 2025 on 5 mg of rosuvastatin, no changes Follow-up: Return in about 6 months (around 12/17/2025). Chief Complaint: Telehealth (6 months follow up, Last lipids 04/15/25) Subjective History of Present Illness: Alma Echeverria is a 84 y.o. female who is undergoing a telehealth visit today for routine cardiac follow-up. From a cardiac standpoint, she states that she is doing well. She has had perhaps 2 episodes of atrial fibrillation. She felt a little funny and perhaps some palpitations. Episodes lasted less than 1 minute. She cannot recall exactly what her heart rate was but she states there was a wobble on her Fitbit. She did take extra propafenone which settled everything down. LDL was 54 from April 2025. Weight has been under 133 pounds. She is currently seeing Dr. Cool in [place]. They are discussing potential surgical intervention for a wound. Objective ECG 12 lead by Shirley Perez MA (12/12/2024 1128) Echocardiogram complete Final Result by Haroon Quintanilla MD (07/29/2016 1048) Review of Systems: The following system(s) were reviewed and negative. Pertinent positive and negative findings are noted in the HPI. [x] Const [] Eyes [] ENT [x] Resp [] CV [] GI [] [] Neuro [] Musc [] Skin [] Psych [] Endo [] Allergy [] Heme/Lymph Allergies: Codeine, Cyclobenzaprine, Ibuprofen, Latex, Lisinopril-hydrochlorothiazide, Nsaids (non-steroidal anti-inflammatory drug), Nylon, and Adhesive tape-silicones HOME Medications: Current Outpatient Medications on File Prior to Visit Medication Sig AMITIZA 8 mcg capsule Take 1 (one) capsule (8 mcg total) by mouth 2 (two) times a day with meals . cholecalciferol, vitamin D3, 1,000 unit tablet Take 1 (one) tablet (1,000 Units total) by mouth daily PM . dexlansoprazole (DEXILANT) 30 mg capsule Take 1 (one) capsule (30 mg total) by mouth daily AM . diclofenac sodium 1% (VOLTAREN) 1 % Gel Apply topically 4 (four) times a day as needed for pain Apply to cervical neck and shoulders as needed up to 4 times per day for pain relief. . diltiazem (CARDIZEM CD) 240 MG 24 hr capsule Take 1 (one) capsule (240 mg total) by mouth daily AM . fluocinolone acetonide oiL 0.01 % Drop 2 (two) times a day as needed . (Patient taking differently: once daily .) furosemide (LASIX) 40 MG tablet Take 2 (two) tablets (80 mg total) by mouth daily . (Patient taking differently: Take 2 (two) tablets (80 mg total) by mouth as needed .) levothyroxine (SYNTHROID, LEVOTHROID) 50 MCG tablet Take 1 (one) tablet (50 mcg total) by mouth once daily AM . (Patient taking differently: Take 1.5 (one and a half) tablets (75 mcg total) by mouth once daily AM .) methocarbamoL (ROBAXIN) 500 MG tablet Take 1 (one) tablet (500 mg total) by mouth once daily . multivitamin with minerals tabl (more content not included)...[facility] [id number] History of Present illness Narrative* Wang Borges MD - 06/19/2025 10:12 AM EDT Interventional Cardiology Telephone Visit Follow-up Heart & Vascular [facility] 06/19/2025 Wang Borges MD [address] [facility] [address] Patient: Alma Echeverria Date of : 1940 (84 y.o.) Referring Provider: No ref. provider found PCP: Sancho Woodruff MD Patient Location: Patient's Home Patient phone : [phone] This visit has been fully reviewed with the patient and verbal consent has been obtained. I discussed risks, benefits and alternatives of a video visit telemedicine consultation with the patient (and any accompanying persons) including the risks that the patient's personal health details and medical records will be discussed over real-time, synchronous, interactive video/audio/telecommunication technology, the visit will not be recorded without the express consent of both the providerand the patient, and that there are inherent diagnostic limitations compared to [id number] evaluations. They elected to proceed with the telephone visit telemedicine consultation. Assessment & Plan Atrial fibrillation (HCC) Rare episodes of paroxysmal atrial fibrillation. She has taken additional doses of propafenone. Sheis on a low maintenance dose at 150 twice daily. I am going to reduce her Eliquis dose given age greater than 80, weight under 60 kg to 2.5 twice daily. HTN (hypertension) Home blood pressure is good on her current regimen that includes Cardizem CD 240 mg once daily Preop cardiovascular exam Cleared for her upcoming surgery with Dr. Cool. She has nonobstructive coronary artery disease by CCTA a few years ago. No recurrent symptoms of angina. I would recommend continuing perioperative propafenone, based on pharmacokinetics, she can stop Eliquis 48 hours prior. No need for a bridge. Coronary artery disease involving [place] coronary artery of [place] heart without angina pectoris History of trivial coronary disease by coronary CCTA. No aspirin given chronic Eliquis use and risk-benefit ratio in an 84-year-old. Continue statin. Dyslipidemia LDL was 54 in April 2025 on 5 mg of rosuvastatin, no changes Follow-up: Return in about 6 months (around 12/17/2025). Chief Complaint: Telehealth (6 months follow up, Last lipids 04/15/25) Subjective History of Present Illness: Alma Echeverria is a 84 y.o. female who is undergoing a telehealth visit today for routine cardiacfollow-up. From a cardiac standpoint, she states that she is doing well. She has had perhaps 2 episodes of atrial fibrillation. She felt a little funny and perhaps some palpitations. Episodes lasted less than 1 minute. She cannot recall exactly what her heart rate was but she states there was a wobble on her Fitbit. She did take extra propafenone which settled everything down. LDL was 54 from April 2025. Weight has been under 133 pounds. She is currently seeing Dr. Cool in [place]. They are discussing potential surgical intervention for a wound. Objective ECG 12 lead by Shirley Perez MA (12/12/2024 1128) Echocardiogram complete Final Result by Haroon Quintanilla MD (07/29/2016 1048) Review of Systems: The following system(s) were reviewed and negative. Pertinent positive and negative findings are noted in the HPI. [x] Const [] Eyes [] ENT [x] Resp [] CV [] GI [] [] Neuro [] Musc [] Skin [] Psych [] Endo [] Allergy [] Heme/Lymph Allergies: Codeine, Cyclobenzaprine, Ibuprofen, Latex, Lisinopril-hydrochlorothiazide, Nsaids (non-steroidal anti-inflammatory drug), Nylon, and Adhesive tape-silicones HOME Medications: Current Outpatient Medications on File Prior to Visit Medication Sig AMITIZA 8 mcg capsule Take 1 (one) capsule (8 mcg total) by mouth 2 (two) times a day with meals . cholecalciferol, vitamin D3, 1,000 unit tablet Take 1 (one) tablet (1,000 Units total) by mouth daily PM . dexlansoprazole (DEXILANT) 30 mg capsule Take 1 (one) capsule (30 mg total) by mouth daily AM . diclofenac sodium 1% (VOLTAREN) 1 % Gel Apply topically 4 (four) times a day as needed for pain Apply to cervical neck and shoulders as needed up to 4 times per day for pain relief. . diltiazem (CARDIZEM CD) 240 MG 24 hr capsule Take 1 (one) capsule (240 mg total) by mouth daily AM . fluocinolone acetonide oiL 0.01 % Drop 2 (two) times a day as needed . (Patient taking differently:once daily .) furosemide (LASIX) 40 MG tablet Take 2 (two) tablets (80 mg total) by mouth daily . (Patient takingdifferently: Take 2 (two) tablets (80 mg total) by mouth as needed .) levothyroxine (SYNTHROID, LEVOTHROID) 50 MCG tablet Take 1 (one) tablet (50 mcg total) by mouth once daily AM . (Patient taking differently: Take 1.5 (one and a half) tablets (75 mcg total) by mouth once daily AM .) methocarbamoL (ROBAXIN) 500 MG tablet Take 1 (one) tablet (500 mg total) by mouth once daily . multivitamin with minerals tablet Take 1 (one) tablet by mouth daily PM . naloxone (NARCAN) 4 mg/actuation [place] Administer 1 spray into one nostril for known or suspected opioid overdose. If patient worsens or does not respond, may repeat in 2-3 minutes. . polyethylene glycol (MIRALAX) 17 gram powder Take 17 (seventeen) g by mouth daily AM . (Patient taking differently: Take 17 (seventeen) g by mouth daily as needed AM .) propafenone (RYTHMOL) 150 MG tablet Take 1 (one) tablet (150 mg total) by mouth 2 (two) times a day. rosuvastatin (CRESTOR) 5 MG tablet Take 1 (one) tablet (5 mg total) by mouth nightly . traMADoL (ULTRAM) 50 mg tablet Take 1 (one) tablet (50 mg total) by mouth 2 (two) times a day as needed . [DISCONTINUED] apixaban (Eliquis) 5 mg Tab One bid . No current facility-administered medications on file prior to visit. Provider location: [facility] [address] [place] [id number] Patient location: [address] [place] [id number] I have spent 17 minutes with the patient reviewing the HPI and Plan of Care. Lab Results Component Value Date TRIG 76 08/09/2016 * Shirley Perez MA - 06/19/2025 9:50 AM EDT Reviewed medication over the phone with patient . Patient having surgery on back due to open wound on healing, will need to off Eliquis at the time, Dr. Villegas. documented in this [id number] Progress note Author Sylvia Cool [facility] Note Date/Time June 18, 2025 11:06am [facility] [address] [place] [address] Progress Note - Wound Care 06/18/25 0947 MR#: [id number] Acct: [id number] Name: ALMA ECHEVERRIA Rep #:[id number] : 1940 84 From: Sylvia Cool MD PCP: Dr. Sancho Woodruff MD Status:RE G RCR Location: History of Present Illness Date of Service: 06/17/25 Chief Complaint: Sacral pressure ulceration History of Wound: The patient is seen today on behalf of the patient's regular Wound Center provider, Dr. Sylvia Cool, and whose medical history has been reviewed, as documented below: The patient is an 84-year-old female who presented with a sacral pressure ulcer that had been gradually worsening over a period of six months. The ulcer developed initially as a sensitive spot that evolved into a cavity without significant visual symptoms of hemorrhage or discharge. The management had involved Medihoney applications and packing. The patient's medical history is significant for atrial fibrillation, managed with Apixaban, with implications for future surgical interventions due to bleeding risks. She has a history of lumbar spinal fusion with implanted metal hardware. Historical records indicate maintained integrity of sacral spinal hardware, mitigating concerns regarding hardware-related complications. Dietary habits and past management strategies reflect an understanding of nutritional needs consistent with ongoing medical recommendations. The patient believes her pressure ulcer started as a small abscess that turned into a wound. She puts significant pressure on it daily while leaning back in her recliner at home. The patient is not a smoker. She is not diabetic. Subjective Subjective 29 April 2025: The patient is an 84-year-old female presenting with a pressure ulcer. The ulcerhas been persistent, and the patient has been managing it by offloading pressureby sleeping on her right side. The wound has not yet healed completely, and the patient has not received the wound vacuum therapy device yet. The wound measures 1.5 x 1.5 cm and is 1 cm deep, consistent with previous measurements. The patient has been advised to use a wound vacuum to promote granulation and closure of the ulcer. The patient is considering surgical intervention if the wound vacuum therapy does not yield results in a few weeks. The patient is on blood thinners, which would require hospitalization for a week if surgical intervention is pursued. Attestation: Documentation on this patient encounter was supported using ambient scribe technology/ voice AI technology. The patient consented to recording for the purpose of documenting the encounter. Provider reviewed content of the generatednote prior to signature. 27 May 2025: Patient doing well overall. Saw Dr. Singleton on my behalf last week. He recommended continued treatment with the Aquacel Ag. Patient does not want to do the wound VAC, she feels is too cumbersome. She is not interested in surgery at this time as she agrees with continue local wound care, and my plan for labs and a biopsy today. Patient does not currently have a pressure offloading bed at home and does not want one at this time as she reports her house is too small. She reports that she does lay on the wound/sleep on this area. CURRENT ENCOUNTER, 17 Jun 2025: Doing well overall but making minimal progress. She is concerned that it may berelated to the hardware that she had in her sacrum from a pelvis/sacrum fracturethat she reports she had 3 years ago. Objective Data Objective Data Vital Signs: Vital Signs Temp Pulse Resp BP 96.9 F L 92 14 156/68 H 06/17/25 09:52 06/17/25 09:52 06/17/25 09:52 06/17/25 09:52 Charges/Coding Visit Charges Office Visits / Consults: 47773 OV L2 Est 10min Procedures Integumentary 111xxx-113xx: [id number] Vivian subq tissue 20 sq cm/< Physical Exam Narrative Sacral wound Stage III 2 x 2.2 cm and 1 cm deep No exposed bone There is no visible exposure of hardware or any palpable hardware No drainage. No fluid collections or induration Granulation tissue at the base with some fibrinous exudate Debridement Note Debridement Note Wound debrided: Sacral wound Laterality: Not Applicable Wound Grade/Stage: Stage III Type of Debridement: Excisional debridement Anesthesia Used: 4% Lidocaine Solution Depth: in the subcutaneous layer Percentage of wound debrided: 100 Instrument Used: 7mm curette Tissue Removed: Fibrinous exudate and biofilm Severity: Fat Layer Exposed Amount of bleeding with debridement: Mild Bleeding Controlled with: Compression and gauze Patient tolerated procedure: Patient tolerated procedure well No debridement was completed: No debridement was completed today Post-Debridement Measurements and Additional Note: Post-Debridement Measurements/Treatment - Nurse 1 - General Ulcer Assessment Start: 06/17/25 09:52 Freq: Status: Active Protocol: KERI Activity Type Activity Date Activity User E-sign Co-sign Detail Recorded Client Recorded Date Recorded By Document 06/17/25 09:52 ML [id number] 06/17/25 09:55 ML 06/17/25 09:52 - Today's Visit Information Type of service Follow-up Visit (Physician/[employer] ) Arrival Mode Ambulatory Patient Identification Verified (Name & Yes ) Patient Requires Transmission-Based No Precautions Vital Signs Temperature (97.8 F-99.1 F) 96.9 F L Temperature Source Temporal Pulse Rate (60-100) 92 Pulse Location Monitor Respiratory Rate (12-18) 14 Respiratory rate source Monitor Blood Pressure (90/60-120/80) 156/68 H Blood Pressure Mean (mm Hg) 97 Source Monitor Position Semi-Fowlers Blood Pressure Location Right Arm History Since Last Visit- (Skip if this is Patient's initial visit) Have you changed medications since your No last visit? Any new allergies or adverse reactions No Had a fall/change in ADL's that may No increase risk of falls Signs or symptoms of abuse and/or No neglect since last visit Have you been in the hospital since your No last visit? Has dressing in place as prescribed Yes Has compression in place as prescribed N/A Has offloadiing in place as prescribed N/A Experienced any changes in pain level or No management Pain Scale: 0-10 Numeric Is Patient Pain Free? Yes - Nurse 1 - General Ulcer Measurement Start: 06/17/25 09:52 Freq: Status: Active Protocol: Activity Type Activity Date Activity User E-sign Co-sign Detail Recorded Client Recorded Date Recorded By Document 06/17/25 09:52 ML [id number] 06/17/25 09:55 ML 06/17/25 09:52 Wound Center Nurse 1 #1 Coccyx -Current Size (cm) - Length 2 -Current Size (cm) - Width 2 -Current Size (cm) - Depth 1.5 -Total Square Cm 4 -Exudate Amt Medium -Exudate Type Serosanguineous -Granulation Amt Medium (34-66%) -Slough/Fibrin Yes -Necrosis Amt Medium (34-66%) -Necrotic Tissue Type Adherent Slough -Texture (Danelle-wound Skin Appearance) Assessed -Moisture (Danelle-wound Skin Appearance) Assessed -Color (Danelle-wound Skin Appearance) Assessed -Temperature (Danelle-wound Skin No Abnormality Appearance) (Pt Warm) -Tenderness on Palpation (Danelle-wound No Skin Appearance) -Ulcer Cleansing Rinsed/ Irrigated with Saline -Foul Odor after Cleansing No -Anesthetic Used 5% Lidocaine Gel - Nurse 2 - General Ulcer CM Notes Start: 06/17/25 09:52 Freq: Status: Active Protocol: Activity Type Activity Date Activity User E-sign Co-sign Detail Recorded Client Recorded Date Recorded By Document 06/17/25 10:32 [id number] 06/17/25 10:34 [email or web address] 06/17/25 10:32 Wound Center Nurse 2 -Time 10:33 -Correct Patient Yes -Correct Side, Site, Position Yes -Correct Procedure Yes -Procedure Performed Yes -Type of Procedure Debridement -Clinical Debridement Subcutaneous -Tissue Removed Subcutaneous -Post Debridement (cm) - Length 2 -Post Debridement (cm) - Width 2.2 -Post Debridement (cm) - Depth 1.0 -Total Square (Post) (cm) 4.4 -Area of Debridement (cm) - Length 2 -Area of Debridement (cm) - Width 2.2 -Total Square (Area) (cm) 4.4 -Tunneling No -Undermining/Tunneling No -Circular Undermining No -Wound/Ulcer Outcome Not Healed -Ulcer Cleansing Rinsed/ Irrigated with Saline -Foul Odor after Cleansing No -Bioengineered Tissue No -Bleeding Controlled with Pressure -Treatment Response Procedure Tolerated Well -Offloading No -Debridement - Subq, 1st 20sq cm Yes Pain Scale: 0-10 Numeric Is Patient Pain Free? Yes - Nurse 3 - General Ulcer D/C NN Start: 06/17/25 09:52 Freq: Status: Active Protocol: Activity Type Activity Date Activity User E-sign Co-sign Detail Recorded Client Recorded Date Recorded By Document 06/17/25 10:46 [id number] 06/17/25 10:46 06/17/25 10:46 Wound Care Center Nurse 3 #1 Coccyx -Primary Dressing Applied Aquacel AG 4x4 -Primary Dressing Covered/Secured with Dry Gauze, Secured with Tape -Aquacel AG 4x4 1 Pain Scale: 0-10 Numeric Is Patient Pain Free? Yes - Visit Discharge Discharge Condition Stable Ambulatory Status Ambulatory,Cane Transportation Private Auto Medication Reconcilliation completed & No provided to patient/care provider Clinical Summary of Care Provided Yes Assessment/Plan Assessment/Plan (1) Sacral decubitus ulcer, stage III: CODE(S): L89.153 - Pressure ulcer of sacral region, stage 3 PLAN: Patient deferring pressure offloading with pressure offloading bed at thistime. Patient also deferring wound VAC. Reviewed nutrition labs which include albumin of 3.6, prealbumin of 11, and she has an A1c of 5.2. She is not anemic and her hemoglobin is 12 Biopsy of the wound revealed cutaneous ulcer with active chronic inflammation and reactive epidermal changes (no signs of malignancy). These results were discussed and shared with the patient today at our visit. We are ordering a CT scan to examine the sacrum and any signs of hardware near the wound edges. Patient will follow-up with me in 2 weeks She will continue pressure offloading and daily dressing changes with Aquacel Ag(she cannot get twice daily wet-to-dry dressings). I talked to her briefly about excision and closure of the wound as she is starting to be more open to this idea as we deferred in the past per patient preference. Patient happy with plan. 06/18/25 1106 <Electronically signed by Sylvia Cool MD> Cosigner Signature (if applicable): CC: ~ Signed [facility] Work Phone: [phone] Progress note [facility] [address] [place] [address] Progress Note - Wound Care 06/18/25 0947 MR#: [id number] Acct: [id number] Name: ALMA ECHEVERRIA Rep #:[id number] : 1940 84 From: Sylvia Cool MD PCP: Dr. Sancho Woodruff MD Status:RE G RCR Location: History of Present Illness Date of Service: 06/17/25 Chief Complaint: Sacral pressure ulceration History of Wound: The patient is seen today on behalf of the patient's regular Wound Center provider, Dr. Sylvia Cool, and whose medical history has been reviewed, as documented below: The patient is an 84-year-old female who presented with a sacral pressure ulcer that had been gradually worsening over a period of six months. The ulcer developed initially as a sensitive spot that evolved into a cavity without significant visual symptoms of hemorrhage or discharge. The management had involved Medihoney applications and packing. The patient's medical history is significant for atrial fibrillation, managed with Apixaban, with implications for future surgical interventions due to bleeding risks. She has a history of lumbar spinal fusion with implanted metal hardware. Historical records indicate maintained integrity of sacralspinal hardware, mitigating concerns regarding hardware-related complications. Dietary habits and past management strategies reflect an understanding of nutritional needs consistent with ongoing medical recommendations. The patient believes her pressure ulcer started as a small abscess that turned into a wound. She puts significant pressure on it daily while leaning back in her recliner at home. The patient is not asmoker. She is not diabetic. Subjective Subjective 29 April 2025: The patient is an 84-year-old female presenting with a pressure ulcer. The ulcerhas been persistent, and the patient has been managing it by offloading pressureby sleeping on her right side. The wound has not yet healed completely, and the patient has not received the wound vacuum therapy device yet. The wound measures 1.5 x 1.5 cm and is 1 cm deep, consistent with previous measurements. The patient has been advised to use a wound vacuum to promote granulation and closure of the ulcer. The patient is considering surgical intervention if the wound vacuum therapy does not yield resultsin a few weeks. The patient is on blood thinners, which would require hospitalization for a week ifsurgical intervention is pursued. Attestation: Documentation on this patient encounter was supported using ambient scribe technology/ voice AI technology. The patient consented to recording for the purpose of documenting the encounter. Provider reviewed content of the generatednote prior to signature. 27 May 2025: Patient doing well overall. Saw Dr. Singleton on my behalf last week. He recommended continued treatment with the Aquacel Ag. Patient does not want to do the wound VAC, she feels is too cumbersome. She is not interested in surgery at this time as she agrees with continue local wound care, and my plan for labs and a biopsy today. Patient does not currently have a pressure offloading bed at home and does not want one at this time as she reports her house is too small. She reports that she does lay on the wound/sleep on this area. CURRENT ENCOUNTER, 17 Jun 2025: Doing well overall but making minimal progress. She is concerned that it may berelated to the hardware that she had in her sacrum from a pelvis/sacrum fracturethat she reports she had 3 years ago. Objective Data Objective Data Vital Signs: Vital Signs Temp Pulse Resp BP 96.9 F L 92 14 156/68 H 06/17/25 09:52 06/17/25 09:52 06/17/25 09:52 06/17/25 09:52 Charges/Coding Visit Charges Office Visits / Consults: 87822 OV L2 Est 10min Procedures Integumentary 111xxx-113xx: [id number] Vivian subq tissue 20 sq cm/< Physical Exam Narrative Sacral wound Stage III 2 x 2.2 cm and 1 cm deep No exposed bone There is no visible exposure of hardware or any palpable hardware No drainage. No fluid collections or induration Granulation tissue at the base with some fibrinous exudate Debridement Note Debridement Note Wound debrided: Sacral wound Laterality: Not Applicable Wound Grade/Stage: Stage III Type of Debridement: Excisional debridement Anesthesia Used: 4% Lidocaine Solution Depth: in the subcutaneous layer Percentage of wound debrided: 100 Instrument Used: 7mm curette Tissue Removed: Fibrinous exudate and biofilm Severity: Fat Layer Exposed Amount of bleeding with debridement: Mild Bleeding Controlled with: Compression and gauze Patient tolerated procedure: Patient tolerated procedure well No debridement was completed: No debridement was completed today Post-Debridement Measurements and Additional Note: Post-Debridement Measurements/Treatment WC - Nurse 1 - General Ulcer Assessment Start: 06/17/25 09:52 Freq: Status: Active Protocol: KERI Activity Type Activity Date Activity User E-sign Co-sign Detail Recorded Client Recorded Date Recorded By Document 06/17/25 09:52 ML [id number] 06/17/25 09:55 ML 06/17/25 09:52 WC - Today's Visit Information Type of service Follow-up Visit (Physician/[employer] ) Arrival Mode Ambulatory Patient Identification Verified (Name & Yes ) Patient Requires Transmission-Based No Precautions Vital Signs Temperature (97.8 F-99.1 F) 96.9 F L Temperature Source Temporal Pulse Rate (60-100) 92 Pulse Location Monitor Respiratory Rate (12-18) 14 Respiratory rate source Monitor Blood Pressure (90/60-120/80) 156/68 H Blood Pressure Mean (mm Hg) 97 Source Monitor Position Semi-Fowlers Blood Pressure Location Right Arm History Since Last Visit- (Skip if this is Patient's initial visit) Have you changed medications since your No last visit? Any new allergies or adverse reactions No Had a fall/change in ADL's that may No increase risk of falls Signs or symptoms of abuse and/or No neglect since last visit Have you been in the hospital since your No last visit? Has dressing in place as prescribed Yes Has compression in place as prescribed N/A Has offloadiing in place as prescribed N/A Experienced any changes in pain level or No management Pain Scale: 0-10 Numeric Is Patient Pain Free? Yes - Nurse 1 - General Ulcer Measurement Start: 06/17/25 09:52 Freq: Status: Active Protocol: Activity Type Activity Date Activity User E-sign Co-sign Detail Recorded Client Recorded Date Recorded By Document 06/17/25 09:52 ML [id number] 06/17/25 09:55 ML 06/17/25 09:52 Wound Center Nurse 1 #1 Coccyx -Current Size (cm) - Length 2 -Current Size (cm) - Width 2 -Current Size (cm) - Depth 1.5 -Total Square Cm 4 -Exudate Amt Medium -Exudate Type Serosanguineous -Granulation Amt Medium (34-66%) -Slough/Fibrin Yes -Necrosis Amt Medium (34-66%) -Necrotic Tissue Type Adherent Slough -Texture (Danelle-wound Skin Appearance) Assessed -Moisture (Danelle-wound Skin Appearance) Assessed -Color (Danelle-wound Skin Appearance) Assessed -Temperature (Danelle-wound Skin No Abnormality Appearance) (Pt Warm) -Tenderness on Palpation (Danelle-wound No Skin Appearance) -Ulcer Cleansing Rinsed/ Irrigated with Saline -Foul Odor after Cleansing No -Anesthetic Used 5% Lidocaine Gel - Nurse 2 - General Ulcer CM Notes Start: 06/17/25 09:52 Freq: Status: Active Protocol: Activity Type Activity Date Activity User E-sign Co-sign Detail Recorded Client Recorded Date Recorded By Document 06/17/25 10:32 DOROTHY [id number] 06/17/25 10:34 DOROTHY 06/17/25 10:32 Wound Center Nurse 2 -Time 10:33 -Correct Patient Yes -Correct Side, Site, Position Yes -Correct Procedure Yes -Procedure Performed Yes -Type of Procedure Debridement -Clinical Debridement Subcutaneous -Tissue Removed Subcutaneous -Post Debridement (cm) - Length 2 -Post Debridement (cm) - Width 2.2 -Post Debridement (cm) - Depth 1.0 -Total Square (Post) (cm) 4.4 -Area of Debridement (cm) - Length 2 -Area of Debridement (cm) - Width 2.2 -Total Square (Area) (cm) 4.4 -Tunneling No -Undermining/Tunneling No -Circular Undermining No -Wound/Ulcer Outcome Not Healed -Ulcer Cleansing Rinsed/ Irrigated with Saline -Foul Odor after Cleansing No -Bioengineered Tissue No -Bleeding Controlled with Pressure -Treatment Response Procedure Tolerated Well -Offloading No -Debridement - Subq, 1st 20sq cm Yes Pain Scale: 0-10 Numeric Is Patient Pain Free? Yes - Nurse 3 - General Ulcer D/C NN Start: 06/17/25 09:52 Freq: Status: Active Protocol: Activity Type Activity Date Activity User E-sign Co-sign Detail Recorded Client Recorded Date Recorded By Document 06/17/25 10:46 DIVYA [id number] 06/17/25 10:46 DIVYA 06/17/25 10:46 Wound Care Center Nurse 3 #1 Coccyx -Primary Dressing Applied Aquacel AG 4x4 -Primary Dressing Covered/Secured with Dry Gauze, Secured with Tape -Aquacel AG 4x4 1 Pain Scale: 0-10 Numeric Is Patient Pain Free? Yes - Visit Discharge Discharge Condition Stable Ambulatory Status Ambulatory,Cane Transportation Private Auto Medication Reconcilliation completed & No provided to patient/care provider Clinical Summary of Care Provided Yes Assessment/Plan Assessment/Plan (1) Sacral decubitus ulcer, stage III: CODE(S): L89.153 - Pressure ulcer of sacral region, stage 3 PLAN: Patient deferring pressure offloading with pressure offloading bed at thistime. Patient also deferring wound VAC. Reviewed nutrition labs which include albumin of 3.6, prealbumin of 11, and she has an A1c of 5.2. She is not anemic and her hemoglobin is 12 Biopsy of the wound revealed cutaneous ulcer with active chronic inflammation and reactive epidermal changes (no signs of malignancy). These results were discussed and shared with the patient today at our visit. We are ordering a CT scan to examine the sacrum and any signs of hardware near the wound edges. Patient will follow-up with me in 2 weeks She will continue pressure offloading and daily dressing changes with Aquacel Ag(she cannot get twice daily wet-to-dry dressings). I talked to her briefly about excision and closure of the wound as she is starting to be more open to this idea as we deferred in the past per patient preference. Patient happy with plan. 06/18/25 1106 Cosigner Signature (if applicable): CC: ~ Signed [facility]09-03-2025 History of Present illness Narrative* Tony Rao, DO - 06/12/2025 12:15 PM EDT Subjective Patient ID: Alma Echeverria is a 84 y.o. female who presents for Pain (Patient is a new patient in the pain clinic today for chief complaint of mid to lower back pain that has been ongoing for years. She states 5-6 months ago she started developing a left sided abdominal pain. She states she hasan area the size of a baseball that hurts in her left abdomen. She states Dr. Garza believes her pain is related to her back pain. Patient rates her pain a 5/10 now and a 9/10 at it's worst and describes it as achy and sharp. ). Patient states her pain is worse with certain movements and certain movements wake her up at night. Turning quickly increases her pain. Patient uses tramadol at home for her pain. She states she usually takes 2-3 a day. She states it works to decrease her pain and she has no side effects. Patient is also dealing with an open wound. She states a couple inches aboveher rectum. She is being treated by wound clinic for that. She states the doctor wants to do surgery to close it but she has not committed to that yet. She states the wound is just not closing as quick as he wants it to. She states she is getting the wound packed. She denied antibiotics. MARYLU 40. SOAPP 3. Depression screen completed, negative. Smoking screen completed, negative. Falls screen completed, negative. HPI Patient has neck pain but she has predominantly lumbar pain that she would like to discuss. This isexacerbated by sitting on this region or lying in bed. She has more pain at night and during the day but she does have daytime pain. She does have exacerbation of pain and symptoms with standing and walking but she does not have tiredness and heaviness in her lower extremities. Her back pain does worsen when standing and walking this may be a facet mediated pain versus a claudication pain presenting in her lumbar spine. Imaging was reviewed. Her pain can reach a 9/10 at its worst. She rarely has radicular symptoms in her lower extremities but has had the symptoms in the past. She does take tramadol with good efficacy and feels that this been the most efficacious medication. Review of Systems All other systems reviewed and are negative. Objective Physical Exam Constitutional: No acute distress, well appearing and well nourished. Patient appears stated age. Eyes: Conjunctiva non-icteric and eye lids are without obvious rash or drooping. Pupils are symmetric. Ears, Nose, Mouth, and Throat: External ears and nose appear to be without deformity or rash. No lesions or masses noted. Hearing is grossly intact. Neck: No JVD noted, tracheal position is midline. Head and Face: Examination of the head and face revealed no abnormalities. Respiratory: No gasping or shortness of breath noted, no use of accessory muscles noted. Cardiovascular: Examination for edema is normal. GI: Abdomen nontender to palpation. Skin: Bandage over sacral decubitus ulcer. MSK: No asymmetry or masses noted of the musculature. Examination of the muscles/joints/bones show grossly normal range of motion unless noted below. Neurologic: Motor strength: 5/5 muscle strength of the upper extremities bilateral and equal. 5/5 muscle strength of the lower extremities bilaterally and equal. Provocative tests: Negative seated straight leg raise test bilaterally. Tenderness palpation lumbarparaspinal musculature with lumbar facet loading reproducing mild axial pain bilaterally. Psychiatric: Mood and affect are normal. Assessment/Plan Diagnoses and all orders for this visit: Lumbar stenosis with neurogenic claudication - desipramine (Norpramin) 10 mg tablet; Take 1 tablet (10 mg) by mouth once daily at bedtime. Lumbar facet arthropathy Chronic pain syndrome - desipramine (Norpramin) 10 mg tablet; Take 1 tablet (10 mg) by mouth once daily at bedtime. Myofascial pain - desipramine (Norpramin) 10 mg tablet; Take 1 tablet (10 mg) by mouth once daily at bedtime. The patient s history, physical exam and personal review of imaging indicate diagnoses of the aboveitems. Plan description: - We had a lengthy discussion about her multifactorial pain we discussed that there is an element of stenosis with claudication however I believe her symptoms are atypical and she has more back claudication than she does in her bilateral lower extremities. There is also likely a facet mediated component to this. - We discussed her tramadol medication, if it is felt that this is better given through pain management we can consider taking over this medication in the future - We also discussed the addition of desipramine, allergies and intolerances were reviewed, we also discussed that she is on tramadol with this. We discussed that if she develop any side effects of this medication to let us know and we can stop it immediately. Given that this is a low dose I believethis would be a lower risk of serotonin syndrome however we reviewed this as well. - We discussed a trial of medication first, we would need to receive clearance from her treating physicians in regard to any possible infectious status of this as well as her history of cellulitis before considering any injection as she would likely be at higher risk for infection from items such as an epidural steroid injection which would likely be the next up to treat facet mediated pain as well as stenosis or claudication symptoms, likely performed at L5/S1 from an interlaminar approach, this could be considered in the future but we would like to see her decubitus ulcer completely healed before considering this. Counseling: The patient was counseled regarding diagnostic results, instructions for management, risk factor reductions, prognosis, patient and family education, impressions, risk and benefits of treatment options, as well as adherence to current treatment regimen. The importance of physical therapy/core strengthening was discussed in regard to an appropriate level for the patient to participate in currently, as well as progress as able. Nicotine and alcohol use were reviewed and discussed as appropriate in relation to cessation and abstinence as indiciated, time spent for smoking cessation counseling when appropriate is 3- 10 minutes for F17.200 nicotine dependence. Appropriate use of opioid medications if prescribed as well as adherance and compliance to routine screening and avoidance of any medication that causes side effects in combination such as benzodiazepines. OARRS reviewed when indicated and naloxone offered if opioid medication prescribed. All questions and concerns were addressed during clinical visit. Patient verbalized understanding and agreement with the current plan and counselling. The patient was invited to contact us back anytime with any questions or concerns and follow-up with us in the future. Elisha Valencia RN 06/12/25 12:18 PM documented in this [facility] Work Phone: [phone]) 172-841208-18-2025 Progress note Author Sylvia Cool [facility] Note Date/Time May 27, 2025 2: 23pm [facility] [address] [place] [id number] Progress Note - Wound Care 05/27/25 1419 MR#: [id number] Acct: [id number] Name: ALMA ECHEVERRIA Rep #:[id number] 06 : 1940 84 From: Sylvia Cool MD PCP: Dr. Sancho Woodruff MD Status:RE G RCR Location: History of Present Illness Date of Service: 05/27/25 Chief Complaint: Sacral pressure ulceration History of Wound: The patient is seen today on behalf of the patient's regular Wound Center provider, Dr. Syliva Cool, and whose medical history has been reviewed, as documented below: The patient is an 84-year-old female who presented with a sacral pressure ulcer that had been gradually worsening over a period of six months. The ulcer developed initially as a sensitive spot that evolved into a cavity without significant visual symptoms of hemorrhage or discharge. The management had involved Medihoney applications and packing. The patient's medical history is significant for atrial fibrillation, managed with Apixaban, with implications for future surgical interventions due to bleeding risks. She has a history of lumbar spinal fusion with implanted metal hardware. Historical records indicate maintained integrity of sacral spinal hardware, mitigating concerns regarding hardware-related complications. Dietary habits and past management strategies reflect an understanding of nutritional needs consistent with ongoing medical recommendations. The patient believes her pressure ulcer started as a small abscess that turned into a wound. She puts significant pressure on it daily while leaning back in her recliner at home. The patient is not a smoker. She is not diabetic. Subjective Subjective 29 April 2025: The patient is an 84-year-old female presenting with a pressure ulcer. The ulcerhas been persistent, and the patient has been managing it by offloading pressureby sleeping on her right side. The wound has not yet healed completely, and the patient has not received the wound vacuum therapy device yet. The wound measures 1.5 x 1.5 cm and is 1 cm deep, consistent with previous measurements. The patient has been advised to use a wound vacuum to promote granulation and closure of the ulcer. The patient is considering surgical intervention if the wound vacuum therapy does not yield results in a few weeks. The patient is on blood thinners, which would require hospitalization for a week if surgical intervention is pursued. Attestation: Documentation on this patient encounter was supported using ambient scribe technology/ voice AI technology. The patient consented to recording for the purpose of documenting the encounter. Provider reviewed content of the generatednote prior to signature. CURRENT ENCOUNTER, 27 May 2025: Patient doing well overall. Saw Dr. Singleton on my behalf last week. He recommended continued treatment with the Aquacel Ag. Patient does not want to do the wound VAC, she feels is too cumbersome. She is not interested in surgery at this time as she agrees with continue local wound care, and my plan for labs and a biopsy today. Patient does not currently have a pressure offloading bed at home and does not want one at this time as she reports her house is too small. She reports that she does lay on the wound/sleep on this area. Objective Data Objective Data Vital Signs: Vital Signs Temp Pulse Resp BP O2 Del Method 99.8 F H 86 18 146/88 H Room Air 05/27/25 13:33 05/27/25 13:33 05/27/25 13:33 05/27/25 13:33 05/27/25 13:33 Oxygen Delivery Method Room Air Charges/Coding Procedures Integumentary 111xxx-113xx: 65570 Vivian subq tissue 20 sq cm/< Physical Exam Narrative Sacral wound Stage III 1.5 x 1.5 and 1 cm deep No exposed bone No drainage. No fluid collections or induration . Radiation tissue at the base Debridement Note Debridement Note Wound debrided: Sacral wound Laterality: Not Applicable Wound Grade/Stage: Stage III Type of Debridement: Excisional debridement Anesthesia Used: 4% Lidocaine Solution and - (4 cc of 1% lidocaine with 1- 200,000 epinephrine) Depth: in the subcutaneous layer Percentage of wound debrided: 100 Instrument Used: 7mm curette Tissue Removed: Fibrinous exudate and biofilm Severity: Fat Layer Exposed Amount of bleeding with debridement: Mild Bleeding Controlled with: Compression and gauze Patient tolerated procedure: Patient tolerated procedure well Post-Debridement Measurements and Additional Note: Post-Debridement Measurements/Treatment - Nurse 1 - General Ulcer Assessment Start: 05/20/25 13:41 Freq: Status: Active Protocol: KERI Activity Type Activity Date Activity User E-sign Co-sign Detail Recorded Client Recorded Date Recorded By Document 05/20/25 13:41 [id number] 05/20/25 13:45 KW Document 05/27/25 13:33 KW [id number] 05/27/25 13:42 KW 05/20/25 05/27/25 13:41 13:33 - Today's Visit Information Type of service Follow-up Visit (Physician/[employer] ) Arrival Mode Ambulatory,Cane Patient Identification Verified (Name & Yes ) Vital Signs Temperature (97.8 F-99.1 F) 96.7 F L 99.8 F H Temperature Source Temporal Temporal Pulse Rate (60-100) 86 Pulse Location Monitor Monitor Respiratory Rate (12-18) 18 18 Respiratory rate source Observation Observation Oxygen Delivery Method Room Air Room Air Blood Pressure (90/60-120/80) 137/97 H 146/88 H Blood Pressure Mean (mm Hg) 110 107 Source Monitor Monitor Position Sitting Semi-Fowlers Blood Pressure Location Right Arm Left Arm History Since Last Visit- (Skip if this is Patient's initial visit) Have you changed medications since your No No last visit? Any new allergies or adverse reactions No No Had a fall/change in ADL's that may No No increase risk of falls Signs or symptoms of abuse and/or No No neglect since last visit Have you been in the hospital since your No No last visit? Has dressing in place as prescribed Yes Yes Has compression in place as prescribed N/A N/A Has offloadiing in place as prescribed N/A N/A Experienced any changes in pain level or No No management Left Footwear Regular Shoe Regular Shoe Right Footwear Regular Shoe Regular Shoe Pain Scale: 0-10 Numeric Is Patient Pain Free? Yes Yes WC - Nurse 1 - General Ulcer Measurement Start: 05/20/25 13:41 Freq: Status: Active Protocol: Activity Type Activity Date Activity User E-sign Co-sign Detail Recorded Client Recorded Date Recorded By Document 05/20/25 13:41 KW [id number] 05/20/25 13:45 KW Document 05/27/25 13:33 KW [id number] 05/27/25 13:42 KW 05/20/25 05/27/25 13:41 13:33 Wound Center Nurse 1 #1 Coccyx -Current Size (cm) - Length 2.2 2 -Current Size (cm) - Width 1.8 1 -Current Size (cm) - Depth 1 0.5 -Total Square Cm 3.96 2 -Date of Last Picture (Recall this 05/20/25 05/27/25 field) -Undermining/Tunneling Starts (O'clock 12 ) -Undermining/Tunneling Ends (O'clock) 12 -Maximum Distance (cm) 0.8 -Circular Undermining Yes Yes -Exudate Amt Medium -Exudate Type Serosanguineous -Wound Margin Distinct, Distinct, Outline Outline Attached Attached -Granulation Amt Large (67-100%) Large (67-100%) -Granulation Quality Poinc[place],Red [place],Red -Necrosis Amt Small (1-33%) -Necrotic Tissue Type Adherent Slough -Texture (Danelle-wound Skin Appearance) Assessed,Rash Assessed -Moisture (Danelle-wound Skin Appearance) Assessed Assessed -Color (Danelle-wound Skin Appearance) Assessed Assessed, Erythema -Temperature (Danelle-wound Skin No Abnormality No Abnormality Appearance) (Pt Warm) (Pt Warm) -Tenderness on Palpation (Danelle-wound No No Skin Appearance) -Ulcer Cleansing Soap and Water Rinsed/ Irrigated with Saline -Foul Odor after Cleansing No No -Anesthetic Used 5% Lidocaine 5% Lidocaine Gel Gel - Nurse 2 - General Ulcer CM Notes Start: 05/20/25 13:41 Freq: Status: Active Protocol: Activity Type Activity Date Activity User E-sign Co-sign Detail Recorded Client Recorded Date Recorded By Document 05/20/25 14:11 JF [id number] 05/20/25 14:14 JF Document 05/27/25 13:56 [id number] 05/27/25 13:57 05/20/25 05/27/25 14:11 13:56 Wound Center Nurse 2 #1 Coccyx -Time 14:12 13:56 -Correct Patient Yes Yes -Correct Side, Site, Position Yes Yes -Correct Procedure Yes Yes -Procedure Performed Yes Yes -Type of Procedure Debridement Debridement -Clinical Debridement Subcutaneous Subcutaneous -Tissue Removed Subcutaneous Subcutaneous -Post Debridement (cm) - Length 2 1.5 -Post Debridement (cm) - Width 1 1.5 -Post Debridement (cm) - Depth 0.9 -Total Square (Post) (cm) 2 2.25 -Area of Debridement (cm) - Length 2 1.5 -Area of Debridement (cm) - Width 1 1.5 -Total Square (Area) (cm) 2 2.25 -Tunneling No No -Undermining/Tunneling No No -Circular Undermining No No -Wound/Ulcer Outcome Not Healed Not Healed -Ulcer Cleansing Rinsed/ Rinsed/ Irrigated with Irrigated with Saline Saline -Foul Odor after Cleansing No No -Bioengineered Tissue No No -Bleeding Controlled with Pressure Pressure -Treatment Response Procedure Procedure Tolerated Well Tolerated Well -Offloading No -Debridement - Subq, 1st 20sq cm Yes Yes Pain Scale: 0-10 Numeric Is Patient Pain Free? Yes Yes - Nurse 3 - General Ulcer D/C NN Start: 05/20/25 13:41 Freq: Status: Active Protocol: Activity Type Activity Date Activity User E-sign Co-sign Detail Recorded Client Recorded Date Recorded By Document 05/20/25 14:14 JF [id number] 05/20/25 14:14 JF Document 05/27/25 14:02 ML [id number] 05/27/25 14:03 ML 05/20/25 05/27/25 14:14 14:02 Wound Care Center Nurse 3 #1 Coccyx -Ulcer Cleansing Rinsed/ Rinsed/ Irrigated with Irrigated with Saline Saline -Foul Odor after Cleansing No -Primary Dressing Applied Aquacel AG 4x4 Aquacel AG 4x4 -Primary Dressing Covered/Secured with Dry Gauze, Dry Gauze, Secured with Secured with Tape Tape -Other Covering fluffed gauze -Aquacel AG 4x4 1 1 Pain Scale: 0-10 Numeric Is Patient Pain Free? Yes Yes WC - Visit Discharge Discharge Condition Stable Ambulatory Status Ambulatory Transportation Private Auto Medication Reconcilliation completed & Yes provided to patient/care provider Clinical Summary of Care Provided Yes Assessment/Plan Assessment/Plan (1) Sacral decubitus ulcer, stage III: CODE(S): L89.153 - Pressure ulcer of sacral region, stage 3 PLAN: Alcohol swab used in a biopsy with a 5 mm punch was taken at the margin ofthe wound after she was anesthetized with the above-noted local anesthetic. It was sent in formalin. Plan to follow-up biopsy results Patient deferring pressure offloading with pressure offloading bed at this time. Patient also deferring wound VAC. I have ordered CMP, CBC with differential, prealbumin, and A1c for nutrition labs. Plan to follow-up in 3 weeks to review biopsy results and labs. Continue local wound care with Aquacel Ag daily. Patient happy with plan. 05/27/25 1423 <Electronically signed by Sylvia Cool MD> Cosigner Signature (if applicable): CC: ~ Signed [facility] Work Phone: [phone] 602-113908-18-[address] [facility] [address] [place] [address] Progress Note - Wound Care 05/27/25 1419 MR#: [id number] Acct: [id number] Name: ALMA ECHEVERRIA Rep #:[id number] 06 : 1940 84 From: Sylvia Cool MD PCP: Dr. Sancho Woodruff MD Status:RE G RCR Location: History of Present Illness Date of Service: 05/27/25 Chief Complaint: Sacral pressure ulceration History of Wound: The patient is seen today on behalf of the patient's regular Wound Center provider, Dr. Sylvia Cool, and whose medical history has been reviewed, as documented below: The patient is an 84-year-old female who presented with a sacral pressure ulcer that had been gradually worsening over a period of six months. The ulcer developed initially as a sensitive spot that evolved into a cavity without significant visual symptoms of hemorrhage or discharge. The management had involved Medihoney applications and packing. The patient's medical history is significant for atrial fibrillation, managed with Apixaban, with implications for future surgical interventions due to bleeding risks. She has a history of lumbar spinal fusion with implanted metal hardware. Historical records indicate maintained integrity of sacralspinal hardware, mitigating concerns regarding hardware-related complications. Dietary habits and past management strategies reflect an understanding of nutritional needs consistent with ongoing medical recommendations. The patient believes her pressure ulcer started as a small abscess that turned into a wound. She puts significant pressure on it daily while leaning back in her recliner at home. The patient is not asmoker. She is not diabetic. Subjective Subjective 29 April 2025: The patient is an 84-year-old female presenting with a pressure ulcer. The ulcerhas been persistent, and the patient has been managing it by offloading pressureby sleeping on her right side. The wound has not yet healed completely, and the patient has not received the wound vacuum therapy device yet. The wound measures 1.5 x 1.5 cm and is 1 cm deep, consistent with previous measurements. The patient has been advised to use a wound vacuum to promote granulation and closure of the ulcer. The patient is considering surgical intervention if the wound vacuum therapy does not yield resultsin a few weeks. The patient is on blood thinners, which would require hospitalization for a week ifsurgical intervention is pursued. Attestation: Documentation on this patient encounter was supported using ambient scribe technology/ voice AI technology. The patient consented to recording for the purpose of documenting the encounter. Provider reviewed content of the generatednote prior to signature. CURRENT ENCOUNTER, 27 May 2025: Patient doing well overall. Saw Dr. Singleton on my behalf last week. He recommended continued treatment with the Aquacel Ag. Patient does not want to do the wound VAC, she feels is too cumbersome. She is not interested in surgery at this time as she agrees with continue local wound care, and my plan for labs and a biopsy today. Patient does not currently have a pressure offloading bed at home and does not want one at this time as she reports her house is too small. She reports that she does lay on the wound/sleep on this area. Objective Data Objective Data Vital Signs: Vital Signs Temp Pulse Resp BP O2 Del Method 99.8 F H 86 18 146/88 H Room Air 05/27/25 13:33 05/27/25 13:33 05/27/25 13:33 05/27/25 13:33 05/27/25 13:33 Oxygen Delivery Method Room Air Charges/Coding Procedures Integumentary 111xxx-113xx: 33467 Vivian subq tissue 20 sq cm/< Physical Exam Narrative Sacral wound Stage III 1.5 x 1.5 and 1 cm deep No exposed bone No drainage. No fluid collections or induration . Radiation tissue at the base Debridement Note Debridement Note Wound debrided: Sacral wound Laterality: Not Applicable Wound Grade/Stage: Stage III Type of Debridement: Excisional debridement Anesthesia Used: 4% Lidocaine Solution and - (4 cc of 1% lidocaine with 1- 200,000 epinephrine) Depth: in the subcutaneous layer Percentage of wound debrided: 100 Instrument Used: 7mm curette Tissue Removed: Fibrinous exudate and biofilm Severity: Fat Layer Exposed Amount of bleeding with debridement: Mild Bleeding Controlled with: Compression and gauze Patient tolerated procedure: Patient tolerated procedure well Post-Debridement Measurements and Additional Note: Post-Debridement Measurements/Treatment - Nurse 1 - General Ulcer Assessment Start: 05/20/25 13:41 Freq: Status: Active Protocol: KERI Activity Type Activity Date Activity User E-sign Co-sign Detail Recorded Client Recorded Date Recorded By Document 05/20/25 13:41 [id number] 05/20/25 13:45 KW Document 05/27/25 13:33 [id number] 05/27/25 13:42 KW 05/20/25 05/27/25 13:41 13:33 - Today's Visit Information Type of service Follow-up Visit (Physician/[employer] ) Arrival Mode Ambulatory,Cane Patient Identification Verified (Name & Yes ) Vital Signs Temperature (97.8 F-99.1 F) 96.7 F L 99.8 F H Temperature Source Temporal Temporal Pulse Rate (60-100) 86 Pulse Location Monitor Monitor Respiratory Rate (12-18) 18 18 Respiratory rate source Observation Observation Oxygen Delivery Method Room Air Room Air Blood Pressure (90/60-120/80) 137/97 H 146/88 H Blood Pressure Mean (mm Hg) 110 107 Source Monitor Monitor Position Sitting Semi-Fowlers Blood Pressure Location Right Arm Left Arm History Since Last Visit- (Skip if this is Patient's initial visit) Have you changed medications since your No No last visit? Any new allergies or adverse reactions No No Had a fall/change in ADL's that may No No increase risk of falls Signs or symptoms of abuse and/or No No neglect since last visit Have you been in the hospital since your No No last visit? Has dressing in place as prescribed Yes Yes Has compression in place as prescribed N/A N/A Has offloadiing in place as prescribed N/A N/A Experienced any changes in pain level or No No management Left Footwear Regular Shoe Regular Shoe Right Footwear Regular Shoe Regular Shoe Pain Scale: 0-10 Numeric Is Patient Pain Free? Yes Yes WC - Nurse 1 - General Ulcer Measurement Start: 05/20/25 13:41 Freq: Status: Active Protocol: Activity Type Activity Date Activity User E-sign Co-sign Detail Recorded Client Recorded Date Recorded By Document 05/20/25 13:41 KW [id number] 05/20/25 13:45 KW Document 05/27/25 13:33 KW [id number] 05/27/25 13:42 KW 05/20/25 05/27/25 13:41 13:33 Wound Center Nurse 1 #1 Coccyx -Current Size (cm) - Length 2.2 2 -Current Size (cm) - Width 1.8 1 -Current Size (cm) - Depth 1 0.5 -Total Square Cm 3.96 2 -Date of Last Picture (Recall this 05/20/25 05/27/25 field) -Undermining/Tunneling Starts (O'clock 12 ) -Undermining/Tunneling Ends (O'clock) 12 -Maximum Distance (cm) 0.8 -Circular Undermining Yes Yes -Exudate Amt Medium -Exudate Type Serosanguineous -Wound Margin Distinct, Distinct, Outline Outline Attached Attached -Granulation Amt Large (67-100%) Large (67-100%) -Granulation Quality Poinc[place],Red [place],Red -Necrosis Amt Small (1-33%) -Necrotic Tissue Type Adherent Slough -Texture (Danelle-wound Skin Appearance) Assessed,Rash Assessed -Moisture (Danelle-wound Skin Appearance) Assessed Assessed -Color (Dnaelle-wound Skin Appearance) Assessed Assessed, Erythema -Temperature (Danelle-wound Skin No Abnormality No Abnormality Appearance) (Pt Warm) (Pt Warm) -Tenderness on Palpation (Danelle-wound No No Skin Appearance) -Ulcer Cleansing Soap and Water Rinsed/ Irrigated with Saline -Foul Odor after Cleansing No No -Anesthetic Used 5% Lidocaine 5% Lidocaine Gel Gel WC - Nurse 2 - General Ulcer CM Notes Start: 05/20/25 13:41 Freq: Status: Active Protocol: Activity Type Activity Date Activity User E-sign Co-sign Detail Recorded Client Recorded Date Recorded By Document 05/20/25 14:11 JF [id number] 05/20/25 14:14 Document 05/27/25 13:56 [id number] 05/27/25 13:57 05/20/25 05/27/25 14:11 13:56 Wound Center Nurse 2 #1 Coccyx -Time 14:12 13:56 -Correct Patient Yes Yes -Correct Side, Site, Position Yes Yes -Correct Procedure Yes Yes -Procedure Performed Yes Yes -Type of Procedure Debridement Debridement -Clinical Debridement Subcutaneous Subcutaneous -Tissue Removed Subcutaneous Subcutaneous -Post Debridement (cm) - Length 2 1.5 -Post Debridement (cm) - Width 1 1.5 -Post Debridement (cm) - Depth 0.9 -Total Square (Post) (cm) 2 2.25 -Area of Debridement (cm) - Length 2 1.5 -Area of Debridement (cm) - Width 1 1.5 -Total Square (Area) (cm) 2 2.25 -Tunneling No No -Undermining/Tunneling No No -Circular Undermining No No -Wound/Ulcer Outcome Not Healed Not Healed -Ulcer Cleansing Rinsed/ Rinsed/ Irrigated with Irrigated with Saline Saline -Foul Odor after Cleansing No No -Bioengineered Tissue No No -Bleeding Controlled with Pressure Pressure -Treatment Response Procedure Procedure Tolerated Well Tolerated Well -Offloading No -Debridement - Subq, 1st 20sq cm Yes Yes Pain Scale: 0-10 Numeric Is Patient Pain Free? Yes Yes WC - Nurse 3 - General Ulcer D/C NN Start: 05/20/25 13:41 Freq: Status: Active Protocol: Activity Type Activity Date Activity User E-sign Co-sign Detail Recorded Client Recorded Date Recorded By Document 05/20/25 14:14 JF [id number] 05/20/25 14:14 Document 05/27/25 14:02 ML [id number] 05/27/25 14:03 ML 05/20/25 05/27/25 14:14 14:02 Wound Care Center Nurse 3 #1 Coccyx -Ulcer Cleansing Rinsed/ Rinsed/ Irrigated with Irrigated with Saline Saline -Foul Odor after Cleansing No -Primary Dressing Applied Aquacel AG 4x4 Aquacel AG 4x4 -Primary Dressing Covered/Secured with Dry Gauze, Dry Gauze, Secured with Secured with Tape Tape -Other Covering fluffed gauze -Aquacel AG 4x4 1 1 Pain Scale: 0-10 Numeric Is Patient Pain Free? Yes Yes WC - Visit Discharge Discharge Condition Stable Ambulatory Status Ambulatory Transportation Private Auto Medication Reconcilliation completed & Yes provided to patient/care provider Clinical Summary of Care Provided Yes Assessment/Plan Assessment/Plan (1) Sacral decubitus ulcer, stage III: CODE(S): L89.153 - Pressure ulcer of sacral region, stage 3 PLAN: Alcohol swab used in a biopsy with a 5 mm punch was taken at the margin ofthe wound after shewas anesthetized with the above-noted local anesthetic. It was sent in formalin. Plan to follow-up biopsy results Patient deferring pressure offloading with pressure offloading bed at this time. Patient also deferring wound VAC. I have ordered CMP, CBC with differential, prealbumin, and A1c for nutrition labs. Plan to follow-up in 3 weeks to review biopsy results and labs. Continue local wound care with Aquacel Ag daily. Patient happy with plan. 05/27/25 1423 Cosigner Signature (if applicable): CC: ~ Signed [facility]08-11-2025 History and physical note Author Vineet Singleton [facility] Note Date/Time May 20, 2025 4: 49pm [facility] [address] [place] [address] H&P Exam - Wound Care 05/20/25 1620 MR#: [id number] Acct: [id number] Name: ALMA ECHEVERRIA Rep #:[id number] 13 : 1940 84 From: Vineet Rizzo PCP: Dr. Sancho Woodruff MD Status:RE G RCR Location: History of Present Illness Date of Service: 05/20/25 Chief Complaint: Sacral pressure ulceration History of Wound: The patient is seen today on behalf of the patient's regular Wound Center provider, Dr. Sylvia Cool, and whose medical history has been reviewed, as documented below: The patient is an 84-year-old female who presented with a sacral pressure ulcer that had been gradually worsening over a period of six months. The ulcer developed initially as a sensitive spot that evolved into a cavity without significant visual symptoms of hemorrhage or discharge. The management had involved Medihoney applications and packing. The patient's medical history is significant for atrial fibrillation, managed with Apixaban, with implications for future surgical interventions due to bleeding risks. She has a history of lumbar spinal fusion with implanted metal hardware. Historical records indicate maintained integrity of sacral spinal hardware, mitigating concerns regarding hardware-related complications. Dietary habits and past management strategies reflect an understanding of nutritional needs consistent with ongoing medical recommendations. The patient believes her pressure ulcer started as a small abscess that turned into a wound. She puts significant pressure on it daily while leaning back in her recliner at home. The patient is not a smoker. She is not diabetic. [facility] Medical History Cancer Arthritis Anemia Cirrhosis High cholesterol Back pain Difficulty swallowing History of hiatal hernia History of ulceration History of IBS History of diverticulitis Gastric reflux Non-smoker History of edema History of echocardiogram History of stress test Cardiology follow-up encounter History of atrial fibrillation Hx of small bowel obstruction Home Medications ?Medication ?Instructions ?Recorded ?Last Taken ?Type Immucore 1 tab PO/SL DAILY 10/01/21 U nknown History atorvastatin 10 mg tablet 10 mg PO QHS 10/01/21 Unknow n History cholecalciferol (vitamin D3) 50 50 mcg PO DAILY Unknown History mcg (2,000 unit) capsule (Vitamin D3) dabigatran etexilate 150 mg 150 mg PO BID 10/01/21 Unk nown History capsule (Pradaxa) dexlansoprazole 60 mg 60 mg PO DAILY 10/01/2109/11 History capsule,biphase delayed release (Dexilant) diltiazem HCl 240 mg 240 mg PO DAILY 10/01/21 History capsule,extended release 24 hr furosemide 40 mg tablet 40 mg PO BID PRN Edema 10/01 Unknown History lubiprostone 8 mcg capsule 8 mcg PO BID 10/01/21 Unkno wn History (Amitiza) milk thistle 150 mg capsule 300 mg PO DAILY 10/01/21 U nknown History multivitamin 1 cap PO DAILY 10/01/21 Unkn own History omega-3 fatty acids-vitamin E 1 cap PO DAILY 10/01/21 Unknown History 1,000 mg capsule polyethylene glycol 3350 17 gram 17 g PO DAILY 1 Unknown History oral powder packet (Miralax) tramadol 50 mg disintegrating 50 mg PO PRN PRN Pain Unknown History tablet apixaban 5 mg tablet (Eliquis) 5 mg PO BID 04/22/25 Un known History apixaban 5 mg tablet (Eliquis) 5 mg PO BID 04/22/25 Un known History levothyroxine 100 mcg tablet 100 mcg PO DAILY 04/22/25 Unknown History naloxone 4 mg/actuation nasal spray intranasal 5 Unknown History tramadol 50 mg tablet 50 mg PO Q6H PRN PRN pain Unknown History Allergy/AdvReac Type Severity Reaction Status Date / Time adhesive tape AdvReac Rash Verified 04/22/25 15:15 NSAIDS (Non-Steroidal AdvReac Nausea Verified 04/22/25 15:15 Anti-Inflamma Surgical History History of esophagogastroduodenoscopy (EGD) Hx of colonoscopy Hx of total shoulder replacement History of bilateral knee arthroplasty Hx of bilateral cataract extraction History of laparoscopic cholecystectomy Hx of laparoscopy Hx of hysterectomy, total Hx of appendectomy Hx of tonsillectomy Social History Smoking Status: Never smoker Vital Signs Vital Signs Vital Signs: 05/20/25 13:41 Temperature 96.7 F L Temperature Source Temporal Respiratory Rate 18 Blood Pressure 137/97 H Blood Pressure Mean 110 Blood Pressure Source Monitor Blood Pressure Position Sitting Blood Pressure Location Right Arm Oxygen Delivery Method Room Air Physical Exam Const alert, oriented x3, no apparent distress, average body habitus and no limitations General Appearance: cooperative, comfortable, well kempt and well developed Orientation / Consciousness: awake, oriented to person, oriented to place and oriented to time Exam Limitations: no limitations HEENT normocephalic and head/scalp atraumatic Head and Scalp: normal to inspection, normocephalic and atraumatic Face and Sinus: normal facial exam Nose: external nose normal External Ear: external ears normal Eyes EOMs intact bilaterally General Eye: normal appearance of both eyes Resp normal respiratory effort, normal air movement, no retractions and no use of accessory muscles Effort and Inspection: able to speak in complete sentences Extremity no calf tenderness General Extremity: Negative for clubbing or cyanosis Skin Wound Narrative: A sacral pressure ulceration is noted in the midline. It appears to be full-thickness, extending through all layers of the dermis and into the subcutaneous tissues. This represents a stage III pressure ulceration. Dimensions are documented elsewhere. There is a small amount of slough and devitalized tissue. Ulcer margins are not well beveled. There is no sign of infection or cellulitis. There is some mild surrounding erythema, which does not appear to be cellulitic in nature. Neuro oriented x3, CN's II-XII intact bilaterally, moves all extremities, no focal motor deficits and no sensory deficits noted Sensorium / Orientation: awake, alert, oriented to person, oriented to place andoriented to time Speech: speech normal Psych Appearance: grossly normal and appropriate Attitude: calm Activity / Motor Behavior: appropriate eye contact Speech: normal speech Mood & Affect: euthymic mood Thought Process: normal thought process Thought Content: normal thought content Attention / Concentration: attention grossly intact Debridement Note Debridement Note Wound debrided: Sacral pressure ulceration Laterality: Not Applicable (Midline) Wound Grade/Stage: Stage III Type of Debridement: Excisional debridement Anesthesia Used: 5% Lidocaine Gel and Cetacaine Depth: Down to and including healthy tissue and in the subcutaneous layer Percentage of wound debrided: 100 Instrument Used: 5mm curette Tissue Removed: Slough and devitalized tissue Severity: Fat Layer Exposed Amount of bleeding with debridement: Mild Bleeding Controlled with: Compression and gauze Patient tolerated procedure: Patient tolerated procedure well Post-Debridement Measurements and Additional Note: Post-Debridement Measurements/Treatment LUCRECIA - Nurse 1 - General Ulcer Assessment Start: 05/20/25 13:41 Freq: Status: Active Protocol: KERI Activity Type Activity Date Activity User E-sign Co-sign Detail Recorded Client Recorded Date Recorded By Document 05/20/25 13:41 DIVYA [id number] 05/20/25 13:45 KW 05/20/25 13:41 Vital Signs Temperature (97.8 F-99.1 F) 96.7 F L Temperature Source Temporal Pulse Location Monitor Respiratory Rate (12-18) 18 Respiratory rate source Observation Oxygen Delivery Method Room Air Blood Pressure (90/60-120/80) 137/97 H Blood Pressure Mean 110 Source Monitor Position Sitting Blood Pressure Location Right Arm History Since Last Visit- (Skip if this is Patient's initial visit) Have you changed medications since your No last visit? Any new allergies or adverse reactions No Had a fall/change in ADL's that may No increase risk of falls Signs or symptoms of abuse and/or No neglect since last visit Have you been in the hospital since your No last visit? Has dressing in place as prescribed Yes Has compression in place as prescribed N/A Has offloadiing in place as prescribed N/A Experienced any changes in pain level or No management Left Footwear Regular Shoe Right Footwear Regular Shoe Pain Scale: 0-10 Numeric Is Patient Pain Free? Yes - Nurse 1 - General Ulcer Measurement Start: 05/20/25 13:41 Freq: Status: Active Protocol: Activity Type Activity Date Activity User E-sign Co-sign Detail Recorded Client Recorded Date Recorded By Document 05/20/25 13:41 [id number] 05/20/25 13:45 05/20/25 13:41 Wound Center Nurse 1 #1 Coccyx -Current Size (cm) - Length 2.2 -Current Size (cm) - Width 1.8 -Current Size (cm) - Depth 1 -Total Square Cm 3.96 -Date of Last Picture (Recall this 05/20/25 field) -Undermining/Tunneling Starts (O'clock 12 ) -Undermining/Tunneling Ends (O'clock) 12 -Maximum Distance (cm) 0.8 -Circular Undermining Yes -Wound Margin Distinct, Outline Attached -Granulation Amt Large (67-100%) -Granulation Quality [place],Red -Texture (Danelle-wound Skin Appearance) Assessed,Rash -Moisture (Danelle-wound Skin Appearance) Assessed -Color (Danelle-wound Skin Appearance) Assessed -Temperature (Danelle-wound Skin No Abnormality Appearance) (Pt Warm) -Tenderness on Palpation (Danelle-wound No Skin Appearance) -Ulcer Cleansing Soap and Water -Foul Odor after Cleansing No -Anesthetic Used 5% Lidocaine Gel - Nurse 2 - General Ulcer CM Notes Start: 05/20/25 13:41 Freq: Status: Active Protocol: Activity Type Activity Date Activity User E-sign Co-sign Detail Recorded Client Recorded Date Recorded By Document 05/20/25 14:11 DOROTHY [id number] 05/20/25 14:14 05/20/25 14:11 Wound Center Nurse 2 -Time 14:12 -Correct Patient Yes -Correct Side, Site, Position Yes -Correct Procedure Yes -Procedure Performed Yes -Type of Procedure Debridement -Clinical Debridement Subcutaneous -Tissue Removed Subcutaneous -Post Debridement (cm) - Length 2 -Post Debridement (cm) - Width 1 -Post Debridement (cm) - Depth 0.9 -Total Square (Post) (cm) 2 -Area of Debridement (cm) - Length 2 -Area of Debridement (cm) - Width 1 -Total Square (Area) (cm) 2 -Tunneling No -Undermining/Tunneling No -Circular Undermining No -Wound/Ulcer Outcome Not Healed -Ulcer Cleansing Rinsed/ Irrigated with Saline -Foul Odor after Cleansing No -Bioengineered Tissue No -Bleeding Controlled with Pressure -Treatment Response Procedure Tolerated Well -Offloading No -Debridement - Subq, 1st 20sq cm Yes Pain Scale: 0-10 Numeric Is Patient Pain Free? Yes - Nurse 3 - General Ulcer D/C NN Start: 05/20/25 13:41 Freq: Status: Active Protocol: Activity Type Activity Date Activity User E-sign Co-sign Detail Recorded Client Recorded Date Recorded By Document 05/20/25 14:14 DOROTHY [id number] 05/20/25 14:14 05/20/25 14:14 Wound Care Center Nurse 3 #1 Coccyx -Ulcer Cleansing Rinsed/ Irrigated with Saline -Foul Odor after Cleansing No -Primary Dressing Applied Aquacel AG 4x4 -Primary Dressing Covered/Secured with Dry Gauze, Secured with Tape -Aquacel AG 4x4 1 Pain Scale: 0-10 Numeric Is Patient Pain Free? Yes - Visit Discharge Discharge Condition Stable Ambulatory Status Ambulatory Transportation Private Auto Medication Reconcilliation completed & Yes provided to patient/care provider Clinical Summary of Care Provided Yes Charges/Coding Multi Select Codes Visit Charges Office Visit/Consults: 40360 OV L4 New 45 min Integumentary Integumentary CPT Codes: 67075 Vivian subq tissue 20 sq cm/< Assessment/Plan Assessment/Plan (1) Sacral decubitus ulcer, stage III: CODE(S): L89.153 - Pressure ulcer of sacral region, stage 3 (2) Atrial fibrillation: CODE(S): I48.91 - Unspecified atrial fibrillation (3) MATTHEW (nonalcoholic steatohepatitis): CODE(S): K75.81 - Nonalcoholic steatohepatitis (MATTHEW) (4) Cirrhosis: CODE(S): K74.60 - Unspecified cirrhosis of liver (5) Cancer: CODE(S): C80.1 - Malignant (primary) neoplasm, unspecified (6) Arthritis: CODE(S): M19.90 - Unspecified osteoarthritis, unspecified site (7) High cholesterol: CODE(S): E78.00 - Pure hypercholesterolemia, unspecified (8) History of hiatal hernia: CODE(S): Z87.19 - Personal history of other diseases of the digestive system (9) History of diverticulitis: CODE(S): Z87.19 - Personal history of other diseases of the digestive system (10) History of IBS: CODE(S): Z87.19 - Personal history of other diseases of the digestive system (11) Gastric reflux: CODE(S): K21.9 - Gastro-esophageal reflux disease without esophagitis (12) Hx of small bowel obstruction: CODE(S): Z87.19 - Personal history of other diseases of the digestive system (13) History of esophagogastroduodenoscopy (EGD): CODE(S): Z98.890 - Other specified postprocedural states (14) Hx of colonoscopy: CODE(S): Z98.890 - Other specified postprocedural states (15) Hx of total shoulder replacement: CODE(S): Z96.619 - Presence of unspecified artificial shoulder joint (16) History of bilateral knee arthroplasty: CODE(S): Z96.653 - Presence of artificial knee joint, bilateral (17) Hx of bilateral cataract extraction: CODE(S): Z98.41 - Cataract extraction status, right eye; Z98.42 - Cataractextraction status, left eye (18) History of laparoscopic cholecystectomy: CODE(S): Z90.49 - Acquired absence of other specified parts of digestive tract (19) Hx of hysterectomy, total: CODE(S): Z90.710 - Acquired absence of both cervix and uterus (20) Hx of appendectomy: CODE(S): Z90.49 - Acquired absence of other specified parts of digestive tract (21) Hx of tonsillectomy: CODE(S): Z90.89 - Acquired absence of other organs PLAN: Plan This is an 84-year-old female with a stage III sacral pressure ulceration. Management to this point has entailed the use of moistened Aquacel Ag topically every other day. She has been going to an outpatient clinic at [facility] in [place], [place], for her ulcer dressing changes. We are to continue the use of Aquacel Ag. The patient has been encouraged to optimize her nutritional intake, and to consume a healthy, well-balanced diet. Offloading measures have also been discussed in detail. The patient has been encouraged toreposition frequently. Home health nursing care had been offered, but declined by the patient. An offloading bed had also been suggested, but the patient has declined this as well. Negative pressure wound therapy had been previously implemented, but the patient felt unsafe in her ability to maintain mobility, and the wound VAC was discontinued. The patient is to return in 1 week for reevaluation by Dr. Cool. A more aggressive approach, which may entail flap reconstruction, will be left to the discretion of the patient and Dr. Cool. Total time: 45 minutes 05/20/25 3930 <Electronically signed by Vineet Singleton MD> Cosigner Signature (if applicable): CC: ~ Signed [facility] Work Phone: [phone] [facility] [address] [place] [address] H&P Exam - Wound Care 05/20/25 1620 MR#: [id number] Acct: [id number] Name: ALMA ECHEVERRIA Rep #:[id number] : 1940 84 From: Vineet Rizzo PCP: Dr. Sancho Woodruff MD Status:[facility] Location: History of Present Illness Date of Service: 05/20/25 Chief Complaint: Sacral pressure ulceration History of Wound: The patient is seen today on behalf of the patient's regular Wound Center provider, Dr. Sylvia Cool, and whose medical history has been reviewed, as documented below: The patient is an 84-year-old female who presented with a sacral pressure ulcer that had been gradually worsening over a period of six months. The ulcer developed initially as a sensitive spot that evolved into a cavity without significant visual symptoms of hemorrhage or discharge. The management had involved Medihoney applications and packing. The patient's medical history is significant for atrial fibrillation, managed with Apixaban, with implications for future surgical interventions due to bleeding risks. She has a history of lumbar spinal fusion with implanted metal hardware. Historical records indicate maintained integrity of sacralspinal hardware, mitigating concerns regarding hardware-related complications. Dietary habits and past management strategies reflect an understanding of nutritional needs consistent with ongoing medical recommendations. The patient believes her pressure ulcer started as a small abscess that turned into a wound. She puts significant pressure on it daily while leaning back in her recliner at home. The patient is not asmoker. She is not diabetic. [facility] Medical History Cancer Arthritis Anemia Cirrhosis High cholesterol Back pain Difficulty swallowing History of hiatal hernia History of ulceration History of IBS History of diverticulitis Gastric reflux Non-smoker History of edema History of echocardiogram History of stress test Cardiology follow-up encounter History of atrial fibrillation Hx of small bowel obstruction Home Medications ?Medication ?Instructions ?Recorded ?Last Taken ?Type Immucore 1 tab PO/SL DAILY 10/01/21 U nknown History atorvastatin 10 mg tablet 10 mg PO QHS 10/01/21 Unknow n History cholecalciferol (vitamin D3) 50 50 mcg PO DAILY Unknown History mcg (2,000 unit) capsule (Vitamin D3) dabigatran etexilate 150 mg 150 mg PO BID 10/01/21 Unk nown History capsule (Pradaxa) dexlansoprazole 60 mg 60 mg PO DAILY 10/01/2109/11 History capsule,biphase delayed release (Dexilant) diltiazem HCl 240 mg 240 mg PO DAILY 10/01/21 History capsule,extended release 24 hr furosemide 40 mg tablet 40 mg PO BID PRN Edema 10/01 Unknown History lubiprostone 8 mcg capsule 8 mcg PO BID 10/01/21 Unkno wn History (Amitiza) milk thistle 150 mg capsule 300 mg PO DAILY 10/01/21 U nknown History multivitamin 1 cap PO DAILY 10/01/21 Unkn own History omega-3 fatty acids-vitamin E 1 cap PO DAILY 10/01/21 Unknown History 1,000 mg capsule polyethylene glycol 3350 17 gram 17 g PO DAILY 1 Unknown History oral powder packet (Miralax) tramadol 50 mg disintegrating 50 mg PO PRN PRN Pain Unknown History tablet apixaban 5 mg tablet (Eliquis) 5 mg PO BID 04/22/25 Un known History apixaban 5 mg tablet (Eliquis) 5 mg PO BID 04/22/25 Un known History levothyroxine 100 mcg tablet 100 mcg PO DAILY 04/22/25 Unknown History naloxone 4 mg/actuation nasal spray intranasal 5 Unknown History tramadol 50 mg tablet 50 mg PO Q6H PRN PRN pain Unknown History Allergy/AdvReac Type Severity Reaction Status Date / Time adhesive tape AdvReac Rash Verified 04/22/25 15:15 NSAIDS (Non-Steroidal AdvReac Nausea Verified 04/22/25 15:15 Anti-Inflamma Surgical History History of esophagogastroduodenoscopy (EGD) Hx of colonoscopy Hx of total shoulder replacement History of bilateral knee arthroplasty Hx of bilateral cataract extraction History of laparoscopic cholecystectomy Hx of laparoscopy Hx of hysterectomy, total Hx of appendectomy Hx of tonsillectomy Social History Smoking Status: Never smoker Vital Signs Vital Signs Vital Signs: 05/20/25 13:41 Temperature 96.7 F L Temperature Source Temporal Respiratory Rate 18 Blood Pressure 137/97 H Blood Pressure Mean 110 Blood Pressure Source Monitor Blood Pressure Position Sitting Blood Pressure Location Right Arm Oxygen Delivery Method Room Air Physical Exam Const alert, oriented x3, no apparent distress, average body habitus and no limitations General Appearance: cooperative, comfortable, well kempt and well developed Orientation / Consciousness: awake, oriented to person, oriented to place and oriented to time Exam Limitations: no limitations HEENT normocephalic and head/scalp atraumatic Head and Scalp: normal to inspection, normocephalic and atraumatic Face and Sinus: normal facial exam Nose: external nose normal External Ear: external ears normal Eyes EOMs intact bilaterally General Eye: normal appearance of both eyes Resp normal respiratory effort, normal air movement, no retractions and no use of accessory muscles Effort and Inspection: able to speak in complete sentences Extremity no calf tenderness General Extremity: Negative for clubbing or cyanosis Skin Wound Narrative: A sacral pressure ulceration is noted in the midline. It appears to be full- thickness, extending through all layers of the dermis and into the subcutaneous tissues. This represents a stage III pressure ulceration. Dimensions are documented elsewhere. There is a small amount of slough and devitalized tissue. Ulcer margins are not well beveled. There is no sign of infection or cellulitis. There is some mild surrounding erythema, which does not appear to be cellulitic in nature. Neuro oriented x3, CN's II-XII intact bilaterally, moves all extremities, no focal motor deficits and no sensory deficits noted Sensorium / Orientation: awake, alert, oriented to person, oriented to place andoriented to time Speech: speech normal Psych Appearance: grossly normal and appropriate Attitude: calm Activity / Motor Behavior: appropriate eye contact Speech: normal speech Mood & Affect: euthymic mood Thought Process: normal thought process Thought Content: normal thought content Attention / Concentration: attention grossly intact Debridement Note Debridement Note Wound debrided: Sacral pressure ulceration Laterality: Not Applicable (Midline) Wound Grade/Stage: Stage III Type of Debridement: Excisional debridement Anesthesia Used: 5% Lidocaine Gel and Cetacaine Depth: Down to and including healthy tissue and in the subcutaneous layer Percentage of wound debrided: 100 Instrument Used: 5mm curette Tissue Removed: Slough and devitalized tissue Severity: Fat Layer Exposed Amount of bleeding with debridement: Mild Bleeding Controlled with: Compression and gauze Patient tolerated procedure: Patient tolerated procedure well Post-Debridement Measurements and Additional Note: Post-Debridement Measurements/Treatment LUCRECIA - Nurse 1 - General Ulcer Assessment Start: 05/20/25 13:41 Freq: Status: Active Protocol: KERI Activity Type Activity Date Activity User E-sign Co-sign Detail Recorded Client Recorded Date Recorded By Document 05/20/25 13:41 KW [id number] 05/20/25 13:45 KW 05/20/25 13:41 Vital Signs Temperature (97.8 F-99.1 F) 96.7 F L Temperature Source Temporal Pulse Location Monitor Respiratory Rate (12-18) 18 Respiratory rate source Observation Oxygen Delivery Method Room Air Blood Pressure (90/60-120/80) 137/97 H Blood Pressure Mean 110 Source Monitor Position Sitting Blood Pressure Location Right Arm History Since Last Visit- (Skip if this is Patient's initial visit) Have you changed medications since your No last visit? Any new allergies or adverse reactions No Had a fall/change in ADL's that may No increase risk of falls Signs or symptoms of abuse and/or No neglect since last visit Have you been in the hospital since your No last visit? Has dressing in place as prescribed Yes Has compression in place as prescribed N/A Has offloadiing in place as prescribed N/A Experienced any changes in pain level or No management Left Footwear Regular Shoe Right Footwear Regular Shoe Pain Scale: 0-10 Numeric Is Patient Pain Free? Yes WC - Nurse 1 - General Ulcer Measurement Start: 05/20/25 13:41 Freq: Status: Active Protocol: Activity Type Activity Date Activity User E-sign Co-sign Detail Recorded Client Recorded Date Recorded By Document 05/20/25 13:41 DIVYA [id number] 05/20/25 13:45 KW 05/20/25 13:41 Wound Center Nurse 1 #1 Coccyx -Current Size (cm) - Length 2.2 -Current Size (cm) - Width 1.8 -Current Size (cm) - Depth 1 -Total Square Cm 3.96 -Date of Last Picture (Recall this 05/20/25 field) -Undermining/Tunneling Starts (O'clock 12 ) -Undermining/Tunneling Ends (O'clock) 12 -Maximum Distance (cm) 0.8 -Circular Undermining Yes -Wound Margin Distinct, Outline Attached -Granulation Amt Large (67-100%) -Granulation Quality [place],Red -Texture (Danelle-wound Skin Appearance) Assessed,Rash -Moisture (Danelle-wound Skin Appearance) Assessed -Color (Danelle-wound Skin Appearance) Assessed -Temperature (Danelle-wound Skin No Abnormality Appearance) (Pt Warm) -Tenderness on Palpation (Danelle-wound No Skin Appearance) -Ulcer Cleansing Soap and Water -Foul Odor after Cleansing No -Anesthetic Used 5% Lidocaine Gel WC - Nurse 2 - General Ulcer CM Notes Start: 05/20/25 13:41 Freq: Status: Active Protocol: Activity Type Activity Date Activity User E-sign Co-sign Detail Recorded Client Recorded Date Recorded By Document 05/20/25 14:11 DOROTHY [id number] 05/20/25 14:14 05/20/25 14:11 Wound Center Nurse 2 -Time 14:12 -Correct Patient Yes -Correct Side, Site, Position Yes -Correct Procedure Yes -Procedure Performed Yes -Type of Procedure Debridement -Clinical Debridement Subcutaneous -Tissue Removed Subcutaneous -Post Debridement (cm) - Length 2 -Post Debridement (cm) - Width 1 -Post Debridement (cm) - Depth 0.9 -Total Square (Post) (cm) 2 -Area of Debridement (cm) - Length 2 -Area of Debridement (cm) - Width 1 -Total Square (Area) (cm) 2 -Tunneling No -Undermining/Tunneling No -Circular Undermining No -Wound/Ulcer Outcome Not Healed -Ulcer Cleansing Rinsed/ Irrigated with Saline -Foul Odor after Cleansing No -Bioengineered Tissue No -Bleeding Controlled with Pressure -Treatment Response Procedure Tolerated Well -Offloading No -Debridement - Subq, 1st 20sq cm Yes Pain Scale: 0-10 Numeric Is Patient Pain Free? Yes - Nurse 3 - General Ulcer D/C NN Start: 05/20/25 13:41 Freq: Status: Active Protocol: Activity Type Activity Date Activity User E-sign Co-sign Detail Recorded Client Recorded Date Recorded By Document 05/20/25 14:14 DOROTHY [id number] 05/20/25 14:14 05/20/25 14:14 Wound Care Center Nurse 3 #1 Coccyx -Ulcer Cleansing Rinsed/ Irrigated with Saline -Foul Odor after Cleansing No -Primary Dressing Applied Aquacel AG 4x4 -Primary Dressing Covered/Secured with Dry Gauze, Secured with Tape -Aquacel AG 4x4 1 Pain Scale: 0-10 Numeric Is Patient Pain Free? Yes - Visit Discharge Discharge Condition Stable Ambulatory Status Ambulatory Transportation Private Auto Medication Reconcilliation completed & Yes provided to patient/care provider Clinical Summary of Care Provided Yes Charges/Coding Multi Select Codes Visit Charges Office Visit/Consults: 43960 OV L4 New 45 min Integumentary Integumentary CPT Codes: 26233 Vivian subq tissue 20 sq cm/< Assessment/Plan Assessment/Plan (1) Sacral decubitus ulcer, stage III: CODE(S): L89.153 - Pressure ulcer of sacral region, stage 3 (2) Atrial fibrillation: CODE(S): I48.91 - Unspecified atrial fibrillation (3) MATTHEW (nonalcoholic steatohepatitis): CODE(S): K75.81 - Nonalcoholic steatohepatitis (MATTHEW) (4) Cirrhosis: CODE(S): K74.60 - Unspecified cirrhosis of liver (5) Cancer: CODE(S): C80.1 - Malignant (primary) neoplasm, unspecified (6) Arthritis: CODE(S): M19.90 - Unspecified osteoarthritis, unspecified site (7) High cholesterol: CODE(S): E78.00 - Pure hypercholesterolemia, unspecified (8) History of hiatal hernia: CODE(S): Z87.19 - Personal history of other diseases of the digestive system (9) History of diverticulitis: CODE(S): Z87.19 - Personal history of other diseases of the digestive system (10) History of IBS: CODE(S): Z87.19 - Personal history of other diseases of the digestive system (11) Gastric reflux: CODE(S): K21.9 - Gastro-esophageal reflux disease without esophagitis (12) Hx of small bowel obstruction: CODE(S): Z87.19 - Personal history of other diseases of the digestive system (13) History of esophagogastroduodenoscopy (EGD): CODE(S): Z98.890 - Other specified postprocedural states (14) Hx of colonoscopy: CODE(S): Z98.890 - Other specified postprocedural states (15) Hx of total shoulder replacement: CODE(S): Z96.619 - Presence of unspecified artificial shoulder joint (16) History of bilateral knee arthroplasty: CODE(S): Z96.653 - Presence of artificial knee joint, bilateral (17) Hx of bilateral cataract extraction: CODE(S): Z98.41 - Cataract extraction status, right eye; Z98.42 - Cataractextraction status, left eye (18) History of laparoscopic cholecystectomy: CODE(S): Z90.49 - Acquired absence of other specified parts of digestive tract (19) Hx of hysterectomy, total: CODE(S): Z90.710 - Acquired absence of both cervix and uterus (20) Hx of appendectomy: CODE(S): Z90.49 - Acquired absence of other specified parts of digestive tract (21) Hx of tonsillectomy: CODE(S): Z90.89 - Acquired absence of other organs PLAN: Plan This is an 84-year-old female with a stage III sacral pressure ulceration. Management to this pointhas entailed the use of moistened Aquacel Ag topically every other day. She has been going to an outpatient clinic at [facility] in [place], [place], for her ulcer dressing changes. We are to continue the use of Aquacel Ag. The patient has been encouraged to optimize her nutritional intake, and to consume a healthy, well-balanced diet. Offloading measures have also been discussed in detail. The patient has been encouraged toreposition frequently. Home health nursing care had been offered, but declined by the patient. An offloading bed had also been suggested, but the patient has declinedthis as well. Negative pressure wound therapy had been previously implemented, but the patient feltunsafe in her ability to maintain mobility, and the wound VAC was discontinued. The patient is to return in 1 week for reevaluation by Dr. Cool. A more aggressive approach, which may entail flap reconstruction, will be left to the discretion of the patient and Dr. Cool. Total time: 45 minutes 05/20/25 1649 Cosigner Signature (if applicable): CC: ~ Signed [facility]07-22-2025 Progress note Author Sylvia Cool [facility] Note Date/Time April 30, 2025 11:5 8am [facility] [address] [place] [id number] Progress Note - Wound Care 04/30/25 1155 MR#: [id number] Acct: [id number] Name: ALMA ECHEVERRIA Rep #:[id number] : 1940 84 From: Sylvia Cool MD PCP: Dr. Sancho Woodruff MD Status:RE G RCR Location: History of Present Illness Date of Service: 04/29/25 History of Wound: The patient is an 84-year-old female presenting with a sacral pressure ulcer that has been gradually worsening over a period of six months. The ulcer developed initially as a sensitive spot that evolved into a cavity without significant visual symptoms of hemorrhage or discharge. The management thus far has involved Medihoney applications and packing, though decreased cavity size now makes packing challenging. Additionally, rotations during sleep due to discomfort underscore its sensitivity. She possesses a medical history significant for atrial fibrillation, managed currently with Apixaban, with implications for future surgical interventions dueto bleeding risks. Historical records indicate maintained integrity of sacral spinal hardware, mitigating concerns regarding hardware-related complications. Dietary habits and past management strategies reflect an understanding of nutritional needs consistent with ongoing medical recommendations. She believes it started as a small abscess that turned into a wound. She puts significant pressure on it daily while leaning back in her recliner at home. ROS: - Skin: Reports sacral pressure ulcer; Denies active infection symptoms such as fever or purulent discharge. - Cardiovascular: Reports history of atrial fibrillation; Denies current chest pain or dyspnea. - Gastrointestinal: Denies recent significant unintentional weight change; Past diagnosis of nonalcoholic fatty liver disease. - Musculoskeletal: Denies new or progressive back pain; History of prior surgeries for sacral fractures. - General: Denies smoking history. Attestation: Documentation on this patient encounter was supported using ambient scribe technology/ voice AI technology. The patient consented to recording for the purpose of documenting the encounter. Provider reviewed content of the generatednote prior to signature. Subjective Subjective CURRENT ENCOUNTER, 29 April 2025: The patient is an 84-year-old female presenting with a pressure ulcer. The ulcerhas been persistent, and the patient has been managing it by offloading pressureby sleeping on her right side. The wound has not yet healed completely, and the patient has not received the wound vacuum therapy device yet. The wound measures 1.5 x 1.5 cm and is 1 cm deep, consistent with previous measurements. The patient has been advised to use a wound vacuum to promote granulation and closure of the ulcer. The patient is considering surgical intervention if the wound vacuum therapy does not yield results in a few weeks. The patient is on blood thinners, which would require hospitalization for a week if surgical intervention is pursued. Attestation: Documentation on this patient encounter was supported using ambient scribe technology/ voice AI technology. The patient consented to recording for the purpose of documenting the encounter. Provider reviewed content of the generatednote prior to signature. Objective Data Objective Data Vital Signs: Vital Signs Temp Pulse Resp BP 97.6 F L 45 L 14 133/77 H 04/29/25 14:17 04/29/25 14:17 04/29/25 14:17 04/29/25 14:17 Weight: 133 lb 3.437 oz Body Mass Index (BMI) 27.8 Charges/Coding Procedures Integumentary 111xxx-113xx: 39271 Vivian subq tissue 20 sq cm/< Physical Exam Narrative - Integumentary: Wound measuring 1.5 x 1.5 cm, 1 cm deep, consistent with previous measurements. Debridement Note Debridement Note Wound debrided: Sacral wound Laterality: Not Applicable Wound Grade/Stage: Stage III Type of Debridement: Excisional debridement Anesthesia Used: 4% Lidocaine Solution Depth: in the subcutaneous layer Percentage of wound debrided: 100 Instrument Used: 7mm curette Tissue Removed: Fibrinous exudate and fat necrosis Severity: Fat Layer Exposed Amount of bleeding with debridement: Mild Bleeding Controlled with: Compression and gauze Patient tolerated procedure: Patient tolerated procedure well Post-Debridement Measurements and Additional Note: Post-Debridement Measurements/Treatment WC - Nurse 1 - General Ulcer Assessment Start: 04/22/25 14:59 Freq: Status: Active Protocol: LUCRECIA.MARCIAL Activity Type Activity Date Activity User E-sign Co-sign Detail Recorded Client Recorded Date Recorded By Document 04/22/25 15:01 DL [id number] 04/22/25 15:13 DL Document 04/29/25 14:17 ML [id number] 04/29/25 14:23 ML 04/22/25 04/29/25 15:01 14:17 - Today's Visit Information Type of service Follow-up Visit Follow-up Visit (Physician/[employer] (Physician/[employer] ) ) Arrival Mode Ambulatory Ambulatory Transfer Assistance None None Patient Identification Verified (Name & Yes Yes ) Patient Requires Transmission-Based No No Precautions Height and Weight Height 4 ft 10 in Weight 133 lb 3.437 oz Weight in Pounds 133.2 lbs Body Mass Index (BMI) 27.8 27.8 BMI Classification Overweight Overweight Vital Signs Temperature (97.8 F-99.1 F) 97.8 F 97.6 F L Temperature Source Temporal Temporal Pulse Rate (60-100) 71 45 L Pulse Location Monitor Monitor Respiratory Rate (12-18) 16 14 Respiratory rate source Observation Monitor Blood Pressure (90/60-120/80) 135/87 H 133/77 H Blood Pressure Mean (mm Hg) 103 95 Source Monitor Monitor Position Sitting Blood Pressure Location Left Arm History Since Last Visit- (Skip if this is Patient's initial visit) Have you changed medications since your No last visit? Any new allergies or adverse reactions No Had a fall/change in ADL's that may No increase risk of falls Have you been in the hospital since your No last visit? Has dressing in place as prescribed No Has compression in place as prescribed No Has offloadiing in place as prescribed Yes Experienced any changes in pain level or No management Pain Scale: 0-10 Numeric Is Patient Pain Free? Yes Yes WC - Nurse 1 - General Ulcer Measurement Start: 04/22/25 14:59 Freq: Status: Active Protocol: Activity Type Activity Date Activity User E-sign Co-sign Detail Recorded Client Recorded Date Recorded By Document 04/22/25 15:01 DL [id number] 04/22/25 15:13 DL Document 04/29/25 14:17 ML [id number] 04/29/25 14:23 ML 04/22/25 04/29/25 15:01 14:17 Wound Center Nurse 1 #1 Coccyx -Current Size (cm) - Length 2 1.5 -Current Size (cm) - Width 1.5 1 -Current Size (cm) - Depth 0.9 0.6 -Total Square Cm 3.0 1.5 -Photo Taken Yes -Classification - Thickness Full Thickness without Exposed Support Structure -Exudate Amt Medium Medium -Exudate Type Serosanguineous Serosanguineous -Wound Margin Distinct, Outline Attached -Granulation Amt Medium (34-66%) Small (1-33%) -Granulation Quality Red -Slough/Fibrin Yes -Necrosis Amt Medium (34-66%) Medium (34-66%) -Necrotic Tissue Type Adherent Slough Adherent Slough -Structure Exposed N/A -Texture (Danelle-wound Skin Appearance) Scarring Assessed -Moisture (Danelle-wound Skin Appearance) No Abnormality Maceration -Color (Danelle-wound Skin Appearance) No Abnormality -Temperature (Danelle-wound Skin No Abnormality No Abnormality Appearance) (Pt Warm) (Pt Warm) -Tenderness on Palpation (Danelle-wound No No Skin Appearance) -Ulcer Cleansing Soap and Water Rinsed/ Irrigated with Saline -Foul Odor after Cleansing No No -Anesthetic Used 5% Lidocaine 5% Lidocaine Gel Gel WC - Nurse 2 - General Ulcer CM Notes Start: 04/22/25 14:59 Freq: Status: Active Protocol: Activity Type Activity Date Activity User E-sign Co-sign Detail Recorded Client Recorded Date Recorded By Document 04/22/25 15:39 JF [id number] 04/22/25 15:49 JF Document 04/29/25 14:42 DS [id number] 04/29/25 14:43 DS 04/22/25 04/29/25 15:39 14:42 Wound Center Nurse 2 #1 Coccyx -Time 15:44 14:42 -Correct Patient Yes Yes -Correct Side, Site, Position Yes Yes -Correct Procedure Yes Yes -Procedure Performed Yes Yes -Type of Procedure Debridement Debridement -Clinical Debridement Muscle / Fascia Subcutaneous -Tissue Removed Fascia Subcutaneous -Post Debridement (cm) - Length 1.5 1.5 -Post Debridement (cm) - Width 2 1.5 -Post Debridement (cm) - Depth 1.5 1.0 -Total Square (Post) (cm) 3.0 2.25 -Area of Debridement (cm) - Length 1.5 1.5 -Area of Debridement (cm) - Width 2 1.5 -Total Square (Area) (cm) 3.0 2.25 -Tunneling No No -Undermining/Tunneling No No -Circular Undermining No No -Wound/Ulcer Outcome Not Healed Not Healed -Ulcer Cleansing Rinsed/ Irrigated with Saline -Foul Odor after Cleansing No No -Bioengineered Tissue No No -Bleeding Controlled with Pressure Pressure -Treatment Response Procedure Procedure Tolerated Well Tolerated Well -Offloading No -Debridement - Subq, 1st 20sq cm Yes -Debridement - Muscle / Fascia, 1st Yes 20sq cm Pain Scale: 0-10 Numeric Is Patient Pain Free? Yes Yes - Nurse 3 - General Ulcer D/C NN Start: 04/22/25 14:59 Freq: Status: Active Protocol: Activity Type Activity Date Activity User E-sign Co-sign Detail Recorded Client Recorded Date Recorded By Document 04/22/25 16:14 DL [id number] 04/22/25 16:15 DL Document 04/29/25 15:04 KW [id number] 04/29/25 15:05 KW 04/22/25 04/29/25 16:14 15:04 Wound Care Center Nurse 3 #1 Coccyx -Ulcer Cleansing Rinsed/ Irrigated with Saline -Foul Odor after Cleansing No -Primary Dressing Applied Aquacel AG 4x4, Aquacel AG 4x4, Silicone Border Silicone Border Foam 6x6 Foam 4x4 -Aquacel AG 4x4 1 1 -Silicone Border Foam 4x4 1 -Silicone Border Foam 6x6 1 Treatment Response Procedure Tolerated Well Pain Scale: 0-10 Numeric Is Patient Pain Free? Yes Yes WC - Visit Discharge Discharge Condition Stable Stable Ambulatory Status Ambulatory,Cane Ambulatory,Cane Transportation Private Auto Private Auto Medication Reconcilliation completed & No provided to patient/care provider Clinical Summary of Care Provided Yes Assessment/Plan Assessment/Plan (1) Sacral decubitus ulcer, stage III: CODE(S): L89.153 - Pressure ulcer of sacral region, stage 3 (2) Atrial fibrillation: CODE(S): I48.91 - Unspecified atrial fibrillation (3) MATTHEW (nonalcoholic steatohepatitis): CODE(S): K75.81 - Nonalcoholic steatohepatitis (MTATHEW) PLAN: Plan Assessment and Plan 84-year-old female with history of atrial fibrillation presenting with a sacral pressure ulcer. The wound complexity and chronicity require diligent management,including consistent dressing changes and alternative offloading methods to minimize pressure and expedite healing. Current interventions focus on timely wound care and nutrient optimization, with surgical intervention as a feasible option contingent on risk considerations related to anticoagulation. 1. Sacral Wound The current wound care strategy will persist entailing consistent dressing changes with Aquacel AG. Wound vacuum-assisted closure therapy remains under consideration pending reassessment of current methods' effectiveness. Surgical procedures will remain a possible intervention should conservative management falter. I again today offered her surgery today for excision and closure of the wound. She is not interested in surgery at this time given her comorbidities and the discussion of risk benefits and alternatives. She would like to continue to do wound care. Most importantly we discussed pressure offloading. She does not want a pressure offloading bed (declined offer today) but she will work on not putting any pressure on the ulcer while sitting in a chair /reclining . She has limited resources at home to help her with wound care and therefore we are doingevery other day Aquacel Ag dressings until the wound VAC is available (home health can change the wound VAC 3 times per week). Patient happy with the plan. 2. Nonalcoholic Fatty Liver Disease Dietary recommendations emphasize maintaining a liver-friendly diet with regularhepatic examinations to review enzyme levels. 3. Atrial Fibrillation Continue routine anticoagulation with Apixaban while exercising caution concerning its influence in any surgical contexts, ensuring ongoing evaluation of hematological parameters. - Monitor wound site daily and maintain cleanliness. - Follow-up with the wound care team as scheduled; visit the hospital if unexpected changes occur. - Lay on your side to avoid pressure on the sacral area. - Include protein-rich foods like chicken and eggs in your diet. - Rest and remain hydrated. Plan from 29 April 2025: Assessment and Plan An 84-year-old female with a history of pressure ulcer presents for evaluation and management. The ulcer has been persistent, and the patient has been managingit by offloading pressure by sleeping on her right side. The wound has not yet healed completely, and the patient has not received the wound vacuum therapy device yet. The wound measures 1.5 x 1.5 cm and is 1 cm deep, consistent with previous measurements. The patient has been advised to use a wound vacuum to promote granulation and closure of the ulcer. 1. Pressure Ulcer The plan is to initiate wound vacuum therapy to promote granulation and closure of the ulcer. If the wound vacuum therapy does not show improvement in a few weeks, surgical intervention will be considered by the patient. - Continue to offload pressure by sleeping on your right side. - Await the arrival of the wound vacuum device and begin using it as instructed. - Follow up in three weeks to assess the progress of the wound healing. 04/30/25 1158 <Electronically signed by Sylvia Cool MD> Cosigner Signature (if applicable): CC: ~ Signed [facility] Work Phone: 1(474) 527-451107-22-[address] [facility] [address] [place] [address] Progress Note - Wound Care 04/30/25 1155 MR#: [id number] Acct: [id number] Name: ALMA ECHEVERRIA Rep #:[id number] 18 : 1940 84 From: Sylvia Cool MD PCP: Dr. Sancho Woodruff MD Status: G R Location: History of Present Illness Date of Service: 04/29/25 History of Wound: The patient is an 84-year-old female presenting with a sacral pressure ulcer thathas been gradually worsening over a period of six months. The ulcer developed initially as a sensitive spot that evolved into a cavity without significant visual symptoms of hemorrhage or discharge. The management thus far has involved Medihoney applications and packing, though decreased cavity size now makes packing challenging. Additionally, rotations during sleep due to discomfort underscore its sensitivity. She possesses a medical history significant for atrial fibrillation, managed currently with Apixaban, with implications for future surgical interventions dueto bleeding risks. Historical records indicate maintained integrity of sacral spinal hardware, mitigating concerns regarding hardware-related complications. Dietary habits and past management strategies reflect an understanding of nutritionalneeds consistent with ongoing medical recommendations. She believes it started as a small abscess that turned into a wound. She puts significant pressure on it daily while leaning back in her recliner at home. ROS: - Skin: Reports sacral pressure ulcer; Denies active infection symptoms such as fever or purulent discharge. - Cardiovascular: Reports history of atrial fibrillation; Denies current chest pain or dyspnea. - Gastrointestinal: Denies recent significant unintentional weight change; Past diagnosis of nonalcoholic fatty liver disease. - Musculoskeletal: Denies new or progressive back pain; History of prior surgeries for sacral fractures. - General: Denies smoking history. Attestation: Documentation on this patient encounter was supported using ambient scribe technology/ voice AI technology. The patient consented to recording for the purpose of documenting the encounter. Provider reviewed content of the generatednote prior to signature. Subjective Subjective CURRENT ENCOUNTER, 29 April 2025: The patient is an 84-year-old female presenting with a pressure ulcer. The ulcerhas been persistent, and the patient has been managing it by offloading pressureby sleeping on her right side. The wound has not yet healed completely, and the patient has not received the wound vacuum therapy device yet. The wound measures 1.5 x 1.5 cm and is 1 cm deep, consistent with previous measurements. The patient has been advised to use a wound vacuum to promote granulation and closure of the ulcer. The patient is considering surgical intervention if the wound vacuum therapy does not yield resultsin a few weeks. The patient is on blood thinners, which would require hospitalization for a week ifsurgical intervention is pursued. Attestation: Documentation on this patient encounter was supported using ambient scribe technology/ voice AI technology. The patient consented to recording for the purpose of documenting the encounter. Provider reviewed content of the generatednote prior to signature. Objective Data Objective Data Vital Signs: Vital Signs Temp Pulse Resp BP 97.6 F L 45 L 14 133/77 H 04/29/25 14:17 04/29/25 14:17 04/29/25 14:17 04/29/25 14:17 Weight: 133 lb 3.437 oz Body Mass Index (BMI) 27.8 Charges/Coding Procedures Integumentary [id number]: [id number] Vivian subq tissue 20 sq cm/< Physical Exam Narrative - Integumentary: Wound measuring 1.5 x 1.5 cm, 1 cm deep, consistent with previous measurements. Debridement Note Debridement Note Wound debrided: Sacral wound Laterality: Not Applicable Wound Grade/Stage: Stage III Type of Debridement: Excisional debridement Anesthesia Used: 4% Lidocaine Solution Depth: in the subcutaneous layer Percentage of wound debrided: 100 Instrument Used: 7mm curette Tissue Removed: Fibrinous exudate and fat necrosis Severity: Fat Layer Exposed Amount of bleeding with debridement: Mild Bleeding Controlled with: Compression and gauze Patient tolerated procedure: Patient tolerated procedure well Post-Debridement Measurements and Additional Note: Post-Debridement Measurements/Treatment WC - Nurse 1 - General Ulcer Assessment Start: 04/22/25 14:59 Freq: Status: Active Protocol: WC.LOWEXKeshawn Activity Type Activity Date Activity User E-sign Co-sign Detail Recorded Client Recorded Date Recorded By Document 04/22/25 15:01 DL [id number] 04/22/25 15:13 DL Document 04/29/25 14:17 ML [id number] 04/29/25 14:23 ML 04/22/25 04/29/25 15:01 14:17 - Today's Visit Information Type of service Follow-up Visit Follow-up Visit (Physician/[employer] (Physician/[employer] ) ) Arrival Mode Ambulatory Ambulatory Transfer Assistance None None Patient Identification Verified (Name & Yes Yes ) Patient Requires Transmission-Based No No Precautions Height and Weight Height 4 ft 10 in Weight 133 lb 3.437 oz Weight in Pounds 133.2 lbs Body Mass Index (BMI) 27.8 27.8 BMI Classification Overweight Overweight Vital Signs Temperature (97.8 F-99.1 F) 97.8 F 97.6 F L Temperature Source Temporal Temporal Pulse Rate (60-100) 71 45 L Pulse Location Monitor Monitor Respiratory Rate (12-18) 16 14 Respiratory rate source Observation Monitor Blood Pressure (90/60-120/80) 135/87 H 133/77 H Blood Pressure Mean (mm Hg) 103 95 Source Monitor Monitor Position Sitting Blood Pressure Location Left Arm History Since Last Visit- (Skip if this is Patient's initial visit) Have you changed medications since your No last visit? Any new allergies or adverse reactions No Had a fall/change in ADL's that may No increase risk of falls Have you been in the hospital since your No last visit? Has dressing in place as prescribed No Has compression in place as prescribed No Has offloadiing in place as prescribed Yes Experienced any changes in pain level or No management Pain Scale: 0-10 Numeric Is Patient Pain Free? Yes Yes WC - Nurse 1 - General Ulcer Measurement Start: 04/22/25 14:59 Freq: Status: Active Protocol: Activity Type Activity Date Activity User E-sign Co-sign Detail Recorded Client Recorded Date Recorded By Document 04/22/25 15:01 DL [id number] 04/22/25 15:13 DL Document 04/29/25 14:17 ML [id number] 04/29/25 14:23 ML 04/22/25 04/29/25 15:01 14:17 Wound Center Nurse 1 #1 Coccyx -Current Size (cm) - Length 2 1.5 -Current Size (cm) - Width 1.5 1 -Current Size (cm) - Depth 0.9 0.6 -Total Square Cm 3.0 1.5 -Photo Taken Yes -Classification - Thickness Full Thickness without Exposed Support Structure -Exudate Amt Medium Medium -Exudate Type Serosanguineous Serosanguineous -Wound Margin Distinct, Outline Attached -Granulation Amt Medium (34-66%) Small (1-33%) -Granulation Quality Red -Slough/Fibrin Yes -Necrosis Amt Medium (34-66%) Medium (34-66%) -Necrotic Tissue Type Adherent Slough Adherent Slough -Structure Exposed N/A -Texture (Danelle-wound Skin Appearance) Scarring Assessed -Moisture (Danelle-wound Skin Appearance) No Abnormality Maceration -Color (Danelle-wound Skin Appearance) No Abnormality -Temperature (Danelle-wound Skin No Abnormality No Abnormality Appearance) (Pt Warm) (Pt Warm) -Tenderness on Palpation (Danelle-wound No No Skin Appearance) -Ulcer Cleansing Soap and Water Rinsed/ Irrigated with Saline -Foul Odor after Cleansing No No -Anesthetic Used 5% Lidocaine 5% Lidocaine Gel Gel - Nurse 2 - General Ulcer CM Notes Start: 04/22/25 14:59 Freq: Status: Active Protocol: Activity Type Activity Date Activity User E-sign Co-sign Detail Recorded Client Recorded Date Recorded By Document 04/22/25 15:39 JF [id number] 04/22/25 15:49 JF Document 04/29/25 14:42 DS [id number] 04/29/25 14:43 DS 04/22/25 04/29/25 15:39 14:42 Wound Center Nurse 2 #1 Coccyx -Time 15:44 14:42 -Correct Patient Yes Yes -Correct Side, Site, Position Yes Yes -Correct Procedure Yes Yes -Procedure Performed Yes Yes -Type of Procedure Debridement Debridement -Clinical Debridement Muscle / Fascia Subcutaneous -Tissue Removed Fascia Subcutaneous -Post Debridement (cm) - Length 1.5 1.5 -Post Debridement (cm) - Width 2 1.5 -Post Debridement (cm) - Depth 1.5 1.0 -Total Square (Post) (cm) 3.0 2.25 -Area of Debridement (cm) - Length 1.5 1.5 -Area of Debridement (cm) - Width 2 1.5 -Total Square (Area) (cm) 3.0 2.25 -Tunneling No No -Undermining/Tunneling No No -Circular Undermining No No -Wound/Ulcer Outcome Not Healed Not Healed -Ulcer Cleansing Rinsed/ Irrigated with Saline -Foul Odor after Cleansing No No -Bioengineered Tissue No No -Bleeding Controlled with Pressure Pressure -Treatment Response Procedure Procedure Tolerated Well Tolerated Well -Offloading No -Debridement - Subq, 1st 20sq cm Yes -Debridement - Muscle / Fascia, 1st Yes 20sq cm Pain Scale: 0-10 Numeric Is Patient Pain Free? Yes Yes - Nurse 3 - General Ulcer D/C NN Start: 04/22/25 14:59 Freq: Status: Active Protocol: Activity Type Activity Date Activity User E-sign Co-sign Detail Recorded Client Recorded Date Recorded By Document 04/22/25 16:14 DL [id number] 04/22/25 16:15 DL Document 04/29/25 15:04 KW [id number] 04/29/25 15:05 KW 04/22/25 04/29/25 16:14 15:04 Wound Care Center Nurse 3 #1 Coccyx -Ulcer Cleansing Rinsed/ Irrigated with Saline -Foul Odor after Cleansing No -Primary Dressing Applied Aquacel AG 4x4, Aquacel AG 4x4, Silicone Border Silicone Border Foam 6x6 Foam 4x4 -Aquacel AG 4x4 1 1 -Silicone Border Foam 4x4 1 -Silicone Border Foam 6x6 1 Treatment Response Procedure Tolerated Well Pain Scale: 0-10 Numeric Is Patient Pain Free? Yes Yes WC - Visit Discharge Discharge Condition Stable Stable Ambulatory Status Ambulatory,Cane Ambulatory,Cane Transportation Private Auto Private Auto Medication Reconcilliation completed & No provided to patient/care provider Clinical Summary of Care Provided Yes Assessment/Plan Assessment/Plan (1) Sacral decubitus ulcer, stage III: CODE(S): L89.153 - Pressure ulcer of sacral region, stage 3 (2) Atrial fibrillation: CODE(S): I48.91 - Unspecified atrial fibrillation (3) MATTHEW (nonalcoholic steatohepatitis): CODE(S): K75.81 - Nonalcoholic steatohepatitis (MATTHEW) PLAN: Plan Assessment and Plan 84-year-old female with history of atrial fibrillation presenting with a sacral pressure ulcer. Thewound complexity and chronicity require diligent management,including consistent dressing changes and alternative offloading methods to minimize pressure and expedite healing. Current interventions focus on timely wound care and nutrient optimization, with surgical intervention as a feasible optioncontingent on risk considerations related to anticoagulation. 1. Sacral Wound The current wound care strategy will persist entailing consistent dressing changes with Aquacel AG.Wound vacuum-assisted closure therapy remains under consideration pending reassessment of current methods' effectiveness. Surgical procedures will remain a possible intervention should conservative management falter. I again today offered her surgery today for excision and closure of the wound. She is not interested in surgery at this time given her comorbidities and the discussion of risk benefits and alternatives. She would like to continue to do wound care. Most importantly we discussed pressure offloading. She does not want a pressure offloading bed (declined offer today) but she will work on not putting any pressure on the ulcer while sitting in a chair /reclining . She has limited resources at home tohelp her with wound care and therefore we are doingevery other day Aquacel Ag dressings until the wound VAC is available (home health can change the wound VAC 3 times per week). Patient happy with the plan. 2. Nonalcoholic Fatty Liver Disease Dietary recommendations emphasize maintaining a liver-friendly diet with regularhepatic examinations to review enzyme levels. 3. Atrial Fibrillation Continue routine anticoagulation with Apixaban while exercising caution concerning its influence inany surgical contexts, ensuring ongoing evaluation of hematological parameters. - Monitor wound site daily and maintain cleanliness. - Follow-up with the wound care team as scheduled; visit the hospital if unexpected changes occur. - Lay on your side to avoid pressure on the sacral area. - Include protein-rich foods like chicken and eggs in your diet. - Rest and remain hydrated. Plan from 29 April 2025: Assessment and Plan An 84-year-old female with a history of pressure ulcer presents for evaluation and management. The ulcer has been persistent, and the patient has been managingit by offloading pressure by sleeping onher right side. The wound has not yet healed completely, and the patient has not received the woundvacuum therapy device yet. The wound measures 1.5 x 1.5 cm and is 1 cm deep, consistent with previous measurements. The patient has been advised to use a wound vacuum to promote granulation and closure of the ulcer. 1. Pressure Ulcer The plan is to initiate wound vacuum therapy to promote granulation and closure of the ulcer. If the wound vacuum therapy does not show improvement in a few weeks, surgical intervention will be considered by the patient. - Continue to offload pressure by sleeping on your right side. - Await the arrival of the wound vacuum device and begin using it as instructed. - Follow up in three weeks to assess the progress of the wound healing. 04/30/25 1158 Cosigner Signature (if applicable): CC: ~ Signed [facility]07-21-2025 Evaluation note* Diagnosis Onset Date Resolution Status Admit Date Atrial fibrillation acute April 29, 2025 3:00pm MATTHEW (nonalcoholic steatohepatitis) acute April 29, 2025 3:00pm Sacral decubitus ulcer, stage III ac [place] April 29, 2025 3:00pm [facility] Work Phone: 1(881) 154-928607-21-2025 Evaluation note* Diagnosis Onset Date Resolution Status Admit Date Atrial fibrillation acute April 29, 2025 3:00pm MATTHEW (nonalcoholic steatohepatitis) acute April 29, 2025 3:00pm Sacral decubitus ulcer, stage III ac [place] April 29, 2025 3:00pm Arthritis acute May 27, 2 025 2:00pm Atrial fibrillation acute Augus 2024 2:00pm Cancer acute May 27, 2 025 2:00pm Cirrhosis acute May 27, 2 025 2:00pm Gastric reflux acute May 2:00pm High cholesterol acute May 102024 2:00pm History of bilateral knee arthroplasty acute May 27, 2025 2:00pm History of diverticulitis acute May 27, 2025 2:00pm History of esophagogastroduo denoscopy (EGD) acute May 27 2:00pm History of hiatal hernia acute May 27, 2025 2:00pm History of IBS acute May 2:00pm History of laparoscopic cholecystectomy acute May 27 2:00pm Hx of appendectomy acute May 27, 2025 2:00pm Hx of bilateral cataract extraction acute May 27, 2025 2:00pm Hx of colonoscopy acute May 27, 2025 2:00pm Hx of hysterectomy, total acute May 27, 2025 2:00pm Hx of small bowel obstruction acute May 27, 2025 2:00pm Hx of tonsillectomy acute 2024 2:00pm Hx of total shoulder replacement acu te May 27, 2025 2:00pm MATTHEW (nonalcoholic steatohepatitis) acute May 27, 2025 2:00pm Sacral decubitus ulcer, stage III ac [place] [employer] May 27, 2025 2:00pm [facility] Work Phone: 1([phone]) 195-830807-21-2025 Evaluation note* Diagnosis Onset Date Resolution Status Admit Date Atrial fibrillation acute April 29, 2025 3:00pm MATTHEW (nonalcoholic steatohepatitis) acute April 29, 2025 3:00pm Sacral decubitus ulcer, stage III ac [place] [employer] April 29, 2025 3:00pm Arthritis acute May 27, 2 025 2:00pm Atrial fibrillation acute Augus 2024 2:00pm Cancer acute May 27, 2 025 2:00pm Cirrhosis acute May 27, 2 025 2:00pm Gastric reflux acute May 2:00pm High cholesterol acute May 102024 2:00pm History of bilateral knee arthroplasty acute May 27 2:00pm History of diverticulitis acute May 27, 2025 2:00pm History of esophagogastroduo denoscopy (EGD) acute May 27 2:00pm History of hiatal hernia acute May 27, 2025 2:00pm History of IBS acute May 2:00pm History of laparoscopic cholecystectomy acute May 27 2:00pm Hx of appendectomy acute May 27, 2025 2:00pm Hx of bilateral cataract extraction acute May 27, 2025 2:00pm Hx of colonoscopy acute May 27, 2025 2:00pm Hx of hysterectomy, total acute May 27, 2025 2:00pm Hx of small bowel obstruction acute May 27, 2025 2:00pm Hx of tonsillectomy acute Augus t 2024 2:00pm Hx of total shoulder replacement acu te May 27, 2025 2:00pm MATTHEW (nonalcoholic steatohepatitis) acute May 27, 2025 2:00pm Sacral decubitus ulcer, stage III ac [place] May 27, 2025 2:00pm Sacral decubitus ulcer, stage III ac [place] [employer] July 01, 2025 9:45am [facility] Work Phone: [phone]) 662-464307-21-2025 History of Present illness Narrative* Dariela Garza MD - 04/29/2025 9:30 AM EDT Subjective Patient ID: Alma Echeverria is a 84 y.o. female who presents for Consult (Referred by Dr. Woodruff for LUQ pain and CT scan done 04-17-25. Patient having intermittent sharp aching pain that has been increasing x 2 months and can occur at anytime with occasional nausea. Denies vomiting or any problems with bowel movements or urination. ). Patient describes the pain as left upper quadrant but radiating across her upper abdomen. She states it is now starting on the right. She states she is typically a back sleeper but is starting sleeping on her right and it seems to be improving the pain somewhat. She had seen the plastic surgeon who recommended a wound VAC which has not arrived yet. She is due to see them in the near future. Objective Patient is quite kyphotic. I had her get up on the exam table and when lying there her ribs are actually touching the crest of her pelvis. With inspiration I am able to place my fingers in between there. Assessment/Plan I have independently reviewed the CT films. I explained to her that it is just because she is so kyphotic that all her intra-abdominal contents are trying to find room and they had out that way. I explained there is no operation that we can do to fix that. I explained the spine surgery could help but that would be probably not obtainable. Some of this pain does indeed seem to be radicular and I suggested seeing Dr. Tony Rao for evaluation and possible injection to see if this does not help her discomfort. She agrees to this. We will see her back after plastic surgery evaluation and painevaluation is needed. She seems reassured. Dariela Garza MD 04/29/25 4:35 PM documented in this [facility] Work Phone: 1(131) 888-343607-16-2025 History and physical note Author Sylvia Cool [facility] Note Date/Time April 24, 2025 3:27 pm [facility] [place] [address] H&P Exam - Wound Care 04/23/25 0729 MR#: [id number] Acct: [id number] Name: ALMA ECHEVERRIA Rep #:[id number] 03 : 1940 84 From: Sylvia Cool MD PCP: Dr. Sancho Woodruff MD Status:RE G RCR Location: WC ADDENDUM by Dr. Sylvia Cool MD on 04/24/25 at 1527 Addendum Patient is ambulatory. She has feeling. A group 2 mattress is therefore less important, but the wound VAC would greatly help. 04/24/25 1527<Electronically signed by Sylvia Cool MD> Cosigner Signature (if applicable): cc: ~* Signed History of Present Illness Date of Service: 04/22/25 History of Wound: The patient is an 84-year-old female presenting with a sacral pressure ulcer that has been gradually worsening over a period of six months. The ulcer developed initially as a sensitive spot that evolved into a cavity without significant visual symptoms of hemorrhage or discharge. The management thus far has involved Medihoney applications and packing, though decreased cavity size now makes packing challenging. Additionally, rotations during sleep due to discomfort underscore its sensitivity. She possesses a medical history significant for atrial fibrillation, managed currently with Apixaban, with implications for future surgical interventions dueto bleeding risks. Historical records indicate maintained integrity of sacral spinal hardware, mitigating concerns regarding hardware-related complications. Dietary habits and past management strategies reflect an understanding of nutritional needs consistent with ongoing medical recommendations. She believes it started as a small abscess that turned into a wound. She puts significant pressure on it daily while leaning back in her recliner at home. ROS: - Skin: Reports sacral pressure ulcer; Denies active infection symptoms such as fever or purulent discharge. - Cardiovascular: Reports history of atrial fibrillation; Denies current chest pain or dyspnea. - Gastrointestinal: Denies recent significant unintentional weight change; Past diagnosis of nonalcoholic fatty liver disease. - Musculoskeletal: Denies new or progressive back pain; History of prior surgeries for sacral fractures. - General: Denies smoking history. Attestation: Documentation on this patient encounter was supported using ambient scribe technology/ voice AI technology. The patient consented to recording for the purpose of documenting the encounter. Provider reviewed content of the generatednote prior to signature. [facility] Medical History Cancer Arthritis Anemia Cirrhosis High cholesterol Back pain Difficulty swallowing History of hiatal hernia History of ulceration History of IBS History of diverticulitis Gastric reflux Non-smoker History of edema History of echocardiogram History of stress test Cardiology follow-up encounter History of atrial fibrillation Hx of small bowel obstruction Home Medications ?Medication ?Instructions ?Recorded ?Last Taken ?Type Immucore 1 tab PO/SL DAILY 10/01/21 U nknown History atorvastatin 10 mg tablet 10 mg PO QHS 10/01/21 Unknow n History cholecalciferol (vitamin D3) 50 50 mcg PO DAILY Unknown History mcg (2,000 unit) capsule (Vitamin D3) dabigatran etexilate 150 mg 150 mg PO BID 10/01/21 Unk nown History capsule (Pradaxa) dexlansoprazole 60 mg 60 mg PO DAILY 10/01/2109/11 History capsule,biphase delayed release (Dexilant) diltiazem HCl 240 mg 240 mg PO DAILY 10/01/21 History capsule,extended release 24 hr furosemide 40 mg tablet 40 mg PO BID PRN Edema 10/01 Unknown History lubiprostone 8 mcg capsule 8 mcg PO BID 10/01/21 Unkno wn History (Amitiza) milk thistle 150 mg capsule 300 mg PO DAILY 10/01/21 U nknown History multivitamin 1 cap PO DAILY 10/01/21 Unkn own History omega-3 fatty acids-vitamin E 1 cap PO DAILY 10/01/21 Unknown History 1,000 mg capsule polyethylene glycol 3350 17 gram 17 g PO DAILY 1 Unknown History oral powder packet (Miralax) tramadol 50 mg disintegrating 50 mg PO PRN PRN Pain Unknown History tablet apixaban 5 mg tablet (Eliquis) 5 mg PO BID 04/22/25 Un known History apixaban 5 mg tablet (Eliquis) 5 mg PO BID 04/22/25 Un known History levothyroxine 100 mcg tablet 100 mcg PO DAILY 04/22/25 Unknown History naloxone 4 mg/actuation nasal spray intranasal 5 Unknown History tramadol 50 mg tablet 50 mg PO Q6H PRN PRN pain Unknown History Allergy/AdvReac Type Severity Reaction Status Date / Time adhesive tape AdvReac Rash Verified 04/22/25 15:15 NSAIDS (Non-Steroidal AdvReac Nausea Verified 04/22/25 15:15 Anti-Inflamma Surgical History History of esophagogastroduodenoscopy (EGD) Hx of colonoscopy Hx of total shoulder replacement History of bilateral knee arthroplasty Hx of foot surgery Hx of bilateral cataract extraction History of laparoscopic cholecystectomy Hx of laparoscopy Hx of hysterectomy, total Hx of appendectomy Hx of tonsillectomy Social History Smoking Status: Never smoker Vital Signs Vital Signs Vital Signs: 04/22/25 15:01 Temperature 97.8 F Temperature Source Temporal Pulse Rate 71 Respiratory Rate 16 Blood Pressure 135/87 H Blood Pressure Mean 103 Blood Pressure Source Monitor Weight Weight: 133 lb 3.437 oz Body Mass Index (BMI) 27.8 Physical Exam Narrative - Skin- Sacral wound measuring approximately 1.5 cm by 2 cm with an estimated depth of 1.5 cm; Presence of exposed fascia but no exposed bone or hardware evident. Debris noted and removed during examination. No surrounding skin lesions or induration Debridement Note Debridement Note Wound debrided: Sacral wound Laterality: Not Applicable Wound Grade/Stage: 3 Type of Debridement: Excisional debridement Anesthesia Used: 4% Lidocaine Solution Depth: to muscle Percentage of wound debrided: 100 Instrument Used: 7mm curette, Forceps and - (scissors for sharp excision) Tissue Removed: Necrotic fascia and fat at the base of the full-thickness wound Severity: Necrosis of Muscle (Necrosis to the fascial layer ) Amount of bleeding with debridement: Moderate Bleeding Controlled with: Compression and gauze Patient tolerated procedure: Patient tolerated procedure well Post-Debridement Measurements and Additional Note: Post-Debridement Measurements/Treatment WC - Nurse 1 - General Ulcer Assessment Start: 04/22/25 14:59 Freq: Status: Active Protocol: KERI Activity Type Activity Date Activity User E-sign Co-sign Detail Recorded Client Recorded Date Recorded By Document 04/22/25 15:01 DL [id number] 04/22/25 15:13 DL 04/22/25 15:01 WC - Today's Visit Information Type of service Follow-up Visit (Physician/[employer] ) Arrival Mode Ambulatory Transfer Assistance None Patient Identification Verified (Name & Yes ) Patient Requires Transmission-Based No Precautions Height and Weight Height 4 ft 10 in Weight 133 lb 3.437 oz Weight in Pounds 133.2 lbs Body Mass Index (BMI) 27.8 BMI Classification Overweight Vital Signs Temperature (97.8 F-99.1 F) 97.8 F Temperature Source Temporal Pulse Rate (60-100) 71 Pulse Location Monitor Respiratory Rate (12-18) 16 Respiratory rate source Observation Blood Pressure (90/60-120/80) 135/87 H Blood Pressure Mean 103 Source Monitor Pain Scale: 0-10 Numeric Is Patient Pain Free? Yes - Nurse 1 - General Ulcer Measurement Start: 04/22/25 14:59 Freq: Status: Active Protocol: Activity Type Activity Date Activity User E-sign Co-sign Detail Recorded Client Recorded Date Recorded By Document 04/22/25 15:01 DL [id number] 04/22/25 15:13 DL 04/22/25 15:01 Wound Center Nurse 1 #1 Coccyx -Current Size (cm) - Length 2 -Current Size (cm) - Width 1.5 -Current Size (cm) - Depth 0.9 -Total Square Cm 3.0 -Photo Taken Yes -Classification - Thickness Full Thickness without Exposed Support Structure -Exudate Amt Medium -Exudate Type Serosanguineous -Wound Margin Distinct, Outline Attached -Granulation Amt Medium (34-66%) -Granulation Quality Red -Necrosis Amt Medium (34-66%) -Necrotic Tissue Type Adherent Slough -Structure Exposed N/A -Texture (Danelle-wound Skin Appearance) Scarring -Moisture (Danelle-wound Skin Appearance) No Abnormality -Color (Danelle-wound Skin Appearance) No Abnormality -Temperature (Danelle-wound Skin No Abnormality Appearance) (Pt Warm) -Tenderness on Palpation (Danelle-wound No Skin Appearance) -Ulcer Cleansing Soap and Water -Foul Odor after Cleansing No -Anesthetic Used 5% Lidocaine Gel WC - Nurse 2 - General Ulcer CM Notes Start: 04/22/25 14:59 Freq: Status: Active Protocol: Activity Type Activity Date Activity User E-sign Co-sign Detail Recorded Client Recorded Date Recorded By Document 04/22/25 15:39 [id number] 04/22/25 15:49 04/22/25 15:39 Wound Center Nurse 2 -Time 15:44 -Correct Patient Yes -Correct Side, Site, Position Yes -Correct Procedure Yes -Procedure Performed Yes -Type of Procedure Debridement -Clinical Debridement Muscle / Fascia -Tissue Removed Fascia -Post Debridement (cm) - Length 1.5 -Post Debridement (cm) - Width 2 -Post Debridement (cm) - Depth 1.5 -Total Square (Post) (cm) 3.0 -Area of Debridement (cm) - Length 1.5 -Area of Debridement (cm) - Width 2 -Total Square (Area) (cm) 3.0 -Tunneling No -Undermining/Tunneling No -Circular Undermining No -Wound/Ulcer Outcome Not Healed -Ulcer Cleansing Rinsed/ Irrigated with Saline -Foul Odor after Cleansing No -Bioengineered Tissue No -Bleeding Controlled with Pressure -Treatment Response Procedure Tolerated Well -Offloading No -Debridement - Muscle / Fascia, 1st Yes 20sq cm Pain Scale: 0-10 Numeric Is Patient Pain Free? Yes WC - Nurse 3 - General Ulcer D/C NN Start: 04/22/25 14:59 Freq: Status: Active Protocol: Activity Type Activity Date Activity User E-sign Co-sign Detail Recorded Client Recorded Date Recorded By Document 04/22/25 16:14 DL [id number] 04/22/25 16:15 DL 04/22/25 16:14 Wound Care Center Nurse 3 #1 Coccyx -Ulcer Cleansing Rinsed/ Irrigated with Saline -Foul Odor after Cleansing No -Primary Dressing Applied Aquacel AG 4x4, Silicone Border Foam 6x6 -Aquacel AG 4x4 1 -Silicone Border Foam 6x6 1 Treatment Response Procedure Tolerated Well Pain Scale: 0-10 Numeric Is Patient Pain Free? Yes WC - Visit Discharge Discharge Condition Stable Ambulatory Status Ambulatory,Cane Transportation Private Auto Charges/Coding Multi Select Codes Visit Charges Office Visit/Consults: 21513 OV L4 New 45 min Integumentary Integumentary CPT Codes: 52986 Vivian musc/fascia 20 sq cm/< Assessment/Plan Assessment/Plan (1) Sacral decubitus ulcer, stage III: CODE(S): L89.153 - Pressure ulcer of sacral region, stage 3 (2) Atrial fibrillation: CODE(S): I48.91 - Unspecified atrial fibrillation (3) MATTHEW (nonalcoholic steatohepatitis): CODE(S): K75.81 - Nonalcoholic steatohepatitis (MATTHEW) PLAN: Plan Assessment and Plan 84-year-old female with history of atrial fibrillation presenting with a sacral pressure ulcer. The wound complexity and chronicity require diligent management,including consistent dressing changes and alternative offloading methods to minimize pressure and expedite healing. Current interventions focus on timely wound care and nutrient optimization, with surgical intervention as a feasible option contingent on risk considerations related to anticoagulation. 1. Sacral Wound The current wound care strategy will persist entailing consistent dressing changes with Aquacel AG. Wound vacuum-assisted closure therapy remains under consideration pending reassessment of current methods' effectiveness. Surgical procedures will remain a possible intervention should conservative management falter. I offered her surgery today for excision and closure of the wound. She is not interested in surgery at this time given her comorbidities and the discussion ofrisk benefits and alternatives. She would like to continue to do wound care. Most importantly we discussed pressure offloading. She does not want a pressureoffloading bed (declined offer today) but she will work on not putting any pressure on the ulcer while sitting in a chair /reclining . She has limited resources at home to help her with wound care and therefore we are doing every other day Aquacel Ag dressings until the wound VAC is available (home health canchange the wound VAC 3 times per week). Patient happy with the plan. 2. Nonalcoholic Fatty Liver Disease Dietary recommendations emphasize maintaining a liver-friendly diet with regularhepatic examinations to review enzyme levels. 3. Atrial Fibrillation Continue routine anticoagulation with Apixaban while exercising caution concerning its influence in any surgical contexts, ensuring ongoing evaluation of hematological parameters. - Monitor wound site daily and maintain cleanliness. - Follow-up with the wound care team as scheduled; visit the hospital if unexpected changes occur. - Lay on your side to avoid pressure on the sacral area. - Include protein-rich foods like chicken and eggs in your diet. - Rest and remain hydrated. 04/23/25 0734 <Electronically signed by Sylvia Cool MD> Cosigner Signature (if applicable): CC: ~ Signed [facility] Work Phone: [phone] [facility] [address] [place] [address] H&P Exam - Wound Care 04/23/25 0729 MR#: [id number] Acct: [id number] Name: ALMA ECHEVERRIA Rep #:[id number] 03 : 1940 84 From: Sylvia Cool MD PCP: Dr. Sancho Woodruff MD Status:[facility] Location: ADDENDUM by Dr. Sylvia Cool MD on 04/24/25 at 1527 Addendum Patient is ambulatory. She has feeling. A group 2 mattress is therefore less important, but the wound VAC would greatly help. 04/24/25 1527 Cosigner Signature (if applicable): cc: ~* Signed History of Present Illness Date of Service: 04/22/25 History of Wound: The patient is an 84-year-old female presenting with a sacral pressure ulcer thathas been gradually worsening over a period of six months. The ulcer developed initially as a sensitive spot that evolved into a cavity without significant visual symptoms of hemorrhage or discharge. The management thus far has involved Medihoney applications and packing, though decreased cavity size now makes packing challenging. Additionally, rotations during sleep due to discomfort underscore its sensitivity. She possesses a medical history significant for atrial fibrillation, managed currently with Apixaban, with implications for future surgical interventions dueto bleeding risks. Historical records indicate maintained integrity of sacral spinal hardware, mitigating concerns regarding hardware-related complications. Dietary habits and past management strategies reflect an understanding of nutritionalneeds consistent with ongoing medical recommendations. She believes it started as a small abscess that turned into a wound. She puts significant pressure on it daily while leaning back in her recliner at home. ROS: - Skin: Reports sacral pressure ulcer; Denies active infection symptoms such as fever or purulent discharge. - Cardiovascular: Reports history of atrial fibrillation; Denies current chest pain or dyspnea. - Gastrointestinal: Denies recent significant unintentional weight change; Past diagnosis of nonalcoholic fatty liver disease. - Musculoskeletal: Denies new or progressive back pain; History of prior surgeries for sacral fractures. - General: Denies smoking history. Attestation: Documentation on this patient encounter was supported using ambient scribe technology/ voice AI technology. The patient consented to recording for the purpose of documenting the encounter. Provider reviewed content of the generatednote prior to signature. [facility] Medical History Cancer Arthritis Anemia Cirrhosis High cholesterol Back pain Difficulty swallowing History of hiatal hernia History of ulceration History of IBS History of diverticulitis Gastric reflux Non-smoker History of edema History of echocardiogram History of stress test Cardiology follow-up encounter History of atrial fibrillation Hx of small bowel obstruction Home Medications ?Medication ?Instructions ?Recorded ?Last Taken ?Type Immucore 1 tab PO/SL DAILY 10/01/21 U nknown History atorvastatin 10 mg tablet 10 mg PO QHS 10/01/21 Unknow n History cholecalciferol (vitamin D3) 50 50 mcg PO DAILY Unknown History mcg (2,000 unit) capsule (Vitamin D3) dabigatran etexilate 150 mg 150 mg PO BID 10/01/21 Unk nown History capsule (Pradaxa) dexlansoprazole 60 mg 60 mg PO DAILY 10/01/2109/11 History capsule,biphase delayed release (Dexilant) diltiazem HCl 240 mg 240 mg PO DAILY 10/01/21 History capsule,extended release 24 hr furosemide 40 mg tablet 40 mg PO BID PRN Edema 10/01 Unknown History lubiprostone 8 mcg capsule 8 mcg PO BID 10/01/21 Unkno wn History (Amitiza) milk thistle 150 mg capsule 300 mg PO DAILY 10/01/21 U nknown History multivitamin 1 cap PO DAILY 10/01/21 Unkn own History omega-3 fatty acids-vitamin E 1 cap PO DAILY 10/01/21 Unknown History 1,000 mg capsule polyethylene glycol 3350 17 gram 17 g PO DAILY 1 Unknown History oral powder packet (Miralax) tramadol 50 mg disintegrating 50 mg PO PRN PRN Pain Unknown History tablet apixaban 5 mg tablet (Eliquis) 5 mg PO BID 04/22/25 Un known History apixaban 5 mg tablet (Eliquis) 5 mg PO BID 04/22/25 Un known History levothyroxine 100 mcg tablet 100 mcg PO DAILY 04/22/25 Unknown History naloxone 4 mg/actuation nasal spray intranasal 5 Unknown History tramadol 50 mg tablet 50 mg PO Q6H PRN PRN pain Unknown History Allergy/AdvReac Type Severity Reaction Status Date / Time adhesive tape AdvReac Rash Verified 04/22/25 15:15 NSAIDS (Non-Steroidal AdvReac Nausea Verified 04/22/25 15:15 Anti-Inflamma Surgical History History of esophagogastroduodenoscopy (EGD) Hx of colonoscopy Hx of total shoulder replacement History of bilateral knee arthroplasty Hx of foot surgery Hx of bilateral cataract extraction History of laparoscopic cholecystectomy Hx of laparoscopy Hx of hysterectomy, total Hx of appendectomy Hx of tonsillectomy Social History Smoking Status: Never smoker Vital Signs Vital Signs Vital Signs: 04/22/25 15:01 Temperature 97.8 F Temperature Source Temporal Pulse Rate 71 Respiratory Rate 16 Blood Pressure 135/87 H Blood Pressure Mean 103 Blood Pressure Source Monitor Weight Weight: 133 lb 3.437 oz Body Mass Index (BMI) 27.8 Physical Exam Narrative - Skin- Sacral wound measuring approximately 1.5 cm by 2 cm with an estimated depth of 1.5 cm; Presence of exposed fascia but no exposed bone or hardware evident. Debris noted and removed during examination. No surrounding skin lesions or induration Debridement Note Debridement Note Wound debrided: Sacral wound Laterality: Not Applicable Wound Grade/Stage: 3 Type of Debridement: Excisional debridement Anesthesia Used: 4% Lidocaine Solution Depth: to muscle Percentage of wound debrided: 100 Instrument Used: 7mm curette, Forceps and - (scissors for sharp excision) Tissue Removed: Necrotic fascia and fat at the base of the full-thickness wound Severity: Necrosis of Muscle (Necrosis to the fascial layer ) Amount of bleeding with debridement: Moderate Bleeding Controlled with: Compression and gauze Patient tolerated procedure: Patient tolerated procedure well Post-Debridement Measurements and Additional Note: Post-Debridement Measurements/Treatment - Nurse 1 - General Ulcer Assessment Start: 04/22/25 14:59 Freq: Status: Active Protocol: KERI Activity Type Activity Date Activity User E-sign Co-sign Detail Recorded Client Recorded Date Recorded By Document 04/22/25 15:01 DL [id number] 04/22/25 15:13 DL 04/22/25 15:01 WC - Today's Visit Information Type of service Follow-up Visit (Physician/[employer] ) Arrival Mode Ambulatory Transfer Assistance None Patient Identification Verified (Name & Yes ) Patient Requires Transmission-Based No Precautions Height and Weight Height 4 ft 10 in Weight 133 lb 3.437 oz Weight in Pounds 133.2 lbs Body Mass Index (BMI) 27.8 BMI Classification Overweight Vital Signs Temperature (97.8 F-99.1 F) 97.8 F Temperature Source Temporal Pulse Rate (60-100) 71 Pulse Location Monitor Respiratory Rate (12-18) 16 Respiratory rate source Observation Blood Pressure (90/60-120/80) 135/87 H Blood Pressure Mean 103 Source Monitor Pain Scale: 0-10 Numeric Is Patient Pain Free? Yes - Nurse 1 - General Ulcer Measurement Start: 04/22/25 14:59 Freq: Status: Active Protocol: Activity Type Activity Date Activity User E-sign Co-sign Detail Recorded Client Recorded Date Recorded By Document 04/22/25 15:01 DL [id number] 04/22/25 15:13 DL 04/22/25 15:01 Wound Center Nurse 1 #1 Coccyx -Current Size (cm) - Length 2 -Current Size (cm) - Width 1.5 -Current Size (cm) - Depth 0.9 -Total Square Cm 3.0 -Photo Taken Yes -Classification - Thickness Full Thickness without Exposed Support Structure -Exudate Amt Medium -Exudate Type Serosanguineous -Wound Margin Distinct, Outline Attached -Granulation Amt Medium (34-66%) -Granulation Quality Red -Necrosis Amt Medium (34-66%) -Necrotic Tissue Type Adherent Slough -Structure Exposed N/A -Texture (Danelle-wound Skin Appearance) Scarring -Moisture (Danelle-wound Skin Appearance) No Abnormality -Color (Danelle-wound Skin Appearance) No Abnormality -Temperature (Danelle-wound Skin No Abnormality Appearance) (Pt Warm) -Tenderness on Palpation (Danelle-wound No Skin Appearance) -Ulcer Cleansing Soap and Water -Foul Odor after Cleansing No -Anesthetic Used 5% Lidocaine Gel WC - Nurse 2 - General Ulcer CM Notes Start: 04/22/25 14:59 Freq: Status: Active Protocol: Activity Type Activity Date Activity User E-sign Co-sign Detail Recorded Client Recorded Date Recorded By Document 04/22/25 15:39 [id number] [id number] 04/22/25 15:49 04/22/25 15:39 Wound Center Nurse 2 -Time 15:44 -Correct Patient Yes -Correct Side, Site, Position Yes -Correct Procedure Yes -Procedure Performed Yes -Type of Procedure Debridement -Clinical Debridement Muscle / Fascia -Tissue Removed Fascia -Post Debridement (cm) - Length 1.5 -Post Debridement (cm) - Width 2 -Post Debridement (cm) - Depth 1.5 -Total Square (Post) (cm) 3.0 -Area of Debridement (cm) - Length 1.5 -Area of Debridement (cm) - Width 2 -Total Square (Area) (cm) 3.0 -Tunneling No -Undermining/Tunneling No -Circular Undermining No -Wound/Ulcer Outcome Not Healed -Ulcer Cleansing Rinsed/ Irrigated with Saline -Foul Odor after Cleansing No -Bioengineered Tissue No -Bleeding Controlled with Pressure -Treatment Response Procedure Tolerated Well -Offloading No -Debridement - Muscle / Fascia, 1st Yes 20sq cm Pain Scale: 0-10 Numeric Is Patient Pain Free? Yes WC - Nurse 3 - General Ulcer D/C NN Start: 04/22/25 14:59 Freq: Status: Active Protocol: Activity Type Activity Date Activity User E-sign Co-sign Detail Recorded Client Recorded Date Recorded By Document 04/22/25 16:14 [id number] 04/22/25 16:15 DL 04/22/25 16:14 Wound Care Center Nurse 3 #1 Coccyx -Ulcer Cleansing Rinsed/ Irrigated with Saline -Foul Odor after Cleansing No -Primary Dressing Applied Aquacel AG 4x4, Silicone Border Foam 6x6 -Aquacel AG 4x4 1 -Silicone Border Foam 6x6 1 Treatment Response Procedure Tolerated Well Pain Scale: 0-10 Numeric Is Patient Pain Free? Yes WC - Visit Discharge Discharge Condition Stable Ambulatory Status Ambulatory,Cane Transportation Private Auto Charges/Coding Multi Select Codes Visit Charges Office Visit/Consults: 49268 OV L4 New 45 min Integumentary Integumentary CPT Codes: 21992 Vivian musc/fascia 20 sq cm/< Assessment/Plan Assessment/Plan (1) Sacral decubitus ulcer, stage III: CODE(S): L89.153 - Pressure ulcer of sacral region, stage 3 (2) Atrial fibrillation: CODE(S): I48.91 - Unspecified atrial fibrillation (3) MATTHEW (nonalcoholic steatohepatitis): CODE(S): K75.81 - Nonalcoholic steatohepatitis (MATTHEW) PLAN: Plan Assessment and Plan 84-year-old female with history of atrial fibrillation presenting with a sacral pressure ulcer. Thewound complexity and chronicity require diligent management,including consistent dressing changes and alternative offloading methods to minimize pressure and expedite healing. Current interventions focus on timely wound care and nutrient optimization, with surgical intervention as a feasible optioncontingent on risk considerations related to anticoagulation. 1. Sacral Wound The current wound care strategy will persist entailing consistent dressing changes with Aquacel AG.Wound vacuum-assisted closure therapy remains under consideration pending reassessment of current methods' effectiveness. Surgical procedures will remain a possible intervention should conservative management falter. I offered her surgery today for excision and closure of the wound. She is not interested in surgeryat this time given her comorbidities and the discussion ofrisk benefits and alternatives. She wouldlike to continue to do wound care. Most importantly we discussed pressure offloading. She does not want a pressureoffloading bed (declined offer today) but she will work on not putting any pressure on the ulcer while sitting in a chair /reclining . She has limited resources at home to help her withwound care and therefore we are doing every other day Aquacel Ag dressings until the wound VAC is available (home health canchange the wound VAC 3 times per week). Patient happy with the plan. 2. Nonalcoholic Fatty Liver Disease Dietary recommendations emphasize maintaining a liver-friendly diet with regularhepatic examinations to review enzyme levels. 3. Atrial Fibrillation Continue routine anticoagulation with Apixaban while exercising caution concerning its influence inany surgical contexts, ensuring ongoing evaluation of hematological parameters. - Monitor wound site daily and maintain cleanliness. - Follow-up with the wound care team as scheduled; visit the hospital if unexpected changes occur. - Lay on your side to avoid pressure on the sacral area. - Include protein-rich foods like chicken and eggs in your diet. - Rest and remain hydrated. 04/23/25 0734 Cosigner Signature (if applicable): CC: ~ Signed [facility]07-11-2025 History of Present illness Narrative* Dariela Garza MD - 04/19/2025 10:00 AM EDT Subjective Patient ID: Alma Echeverria is a 84 y.o. female who presents for wound follow-up. She has been going twice weekly to [facility]. The wound seems to have stalled. She is scheduled to see plastic surgery on Tuesday in [place] for possible flap closure. She had a recent CT scan of her abdomen and pelvis done for some left-sided abdominal discomfort and this said that the decubitus healed which it has not. Objective Wound with some fibrin no purulent exudate no cellulitis. Dressings are reapplied. Assessment/Plan I think certainly with the stall in the healing process it would be worthwhile for her to see plastics. Will wait and see what the surgeon says. If he thinks that we should just continue on the slow chronic course she can follow-up here. In the interim she will continue with the twice weekly dressing changes Dariela Garza MD 04/19/25 10:14 AM documented in this [facility] Work Phone: [phone] 602-199806-27-2025 History of Present illness Narrative* Dariela Garza MD - 04/05/2025 10:30 AM EDT Subjective Patient ID: Alma Echeverria is a 84 y.o. female who presents for Wound Check (FU 1 mos wound check of sacral area. Per patient slight tenderness if sitting on it for long periods, wound his healing and getting smaller. Getting dressing changes at the [facility] with medihoney and medriplex on Tuesday, Tuesday and Tuesday. ). Wound continues to improve but still present. Objective Wound with clean base and not quite as deep although still significant. It appears to be dawit slightly. There is no cellulitis. Assessment/Plan We discussed the fact she should continue with the dressing changes but I would like plastic surgery to evaluate the wound to see if this is what might be a good candidate for some kind of flap procedure to get this closed. We will refer her to the group in [place] Dr. Sylvia Cool. Will see her back for wound check in Dariela Garza MD 04/08/25 7:34 PM documented in this [facility] Work Phone: [phone] 111-175406-25-2025 History of Present illness Narrative* Sancho Woodruff MD - 04/03/2025 11:00 AM EDT Subjective Patient ID: Alma Echeverria is a 84 y.o. female who presents for Follow-up (3 mo CS). HPI Has reduced tramadol use to 2 (or3) a day and mme is down. Taken for spine and shoulders, especially right side with total shoulder replacement >50% pain redution, no side effects. Also has had some left upper quadrant pain hurting with palpation over the last month. Had a CT of pelvis in January that they did not get that high. She is concerned and CT abdomen pelvis is ordered Atrial fibs maintained in sinus rhythm on propafenone At 3-month follow-up we will get comprehensive labs for other diagnoses Review of Systems As per HPI. Denies chest pains palpitations cough shortness of breath Objective BP 140/84 Pulse 85 Wt 59 kg (130 lb) SpO2 97% BMI 28.84 kg/m Physical Exam Heart regular lungs clear abdomen soft mild tenderness palpation left upper quadrant Assessment/Plan Problem List Items Addressed This Visit ICD-10-CM AF (paroxysmal atrial fibrillation) (Multi) I48.0 Relevant Medications dilTIAZem CD (Cardizem CD) 240 mg 24 hr capsule furosemide (Lasix) 40 mg tablet Other Relevant Orders Follow Up In Primary Care Acquired hypothyroidism E03.9 Relevant Orders Follow Up In Primary Care Thyroid Stimulating Hormone Hyperlipemia E78.5 Relevant Orders Follow Up In Primary Care CBC Comprehensive Metabolic Panel Lipid Panel Lumbar stenosis with neurogenic claudication - Primary M48.062 Relevant Orders Follow Up In Primary Care Sacral fracture (Multi) S32.10XA Relevant Medications dilTIAZem CD (Cardizem CD) 240 mg 24 hr capsule Other Visit Diagnoses Codes LUQ pain R10.[address] abdomen pelvis w IV contrast Controlled drug dependence (Multi) F19.20 Routine general medical examination at health care facility Z00.00 Skin ulcer, unspecified ulcer stage (Multi) L98.499 documented in this [facility] Work Phone: [phone]) [phone] History of Present illness Narrative* Dariela aGrza MD - 02/01/2025 10:00 AM EDT Subjective Patient ID: Alma Echeverria is a 84 y.o. female who presents for Wound Check (FU 2 weeks lnace cleft open wound with pelvis x-ray on 01-21-25. Patient continuing with dressing changes at [facility] on Tue, Tue and Fridays. Patient having burning, itching, discomfort around the wound are but states woundfeels better than what it had.). Patient returns for wound check. She has been having dressing changes at [facility] but on reading the note they were applying the Medihoney to the skin edges after packing the wound with a gauze. We have called them to explain the Medihoney goes on the raw wound itself with moistened gauze on top of thatand then covered with a Mepilex. Objective Her dressing is removed. There is no cellulitis. There is some fibrin no purulent exudate in the base of the wound. This is cleansed but it is tender. We then put Medihoney on the base of the wound moistened some new gauze and dried it out some and a gauze and then packed that in the wound and covered it with Mepilex. We do not have the bordered so we simply cut the Mepilex and then put 2 large Band-Aids over it. Assessment/Plan She is scheduled to have her CT in the next week or so. We will see her back in a month to see how the wound is doing. We have given her the Medihoney we used here as well as the Mepilex. Dariela Garza MD 02/01/25 10:23 AM [facility] Work Phone: [phone]) 581-920104-11-2025 History of Present illness Narrative* Dariela Garza MD - 01/18/2025 10:00 AM EDT General Surgery Consultation Patient: Alma Echeverria : 1940 Date of Consultation: 01/20/25 Primary Care Provider: Sancho Woodruff MD Referring Provider: Sancho Woodruff MD Chief Complaint: Wound of gluteal cleft History of Present Illness: Alma Echeverria is a 84 y.o. old female seen at the request of Sancho Woodruff MD for evaluation of wound of gluteal cleft. Patient states that she has a had this open wound which she describes as a hole with a flap above it there is in her cleft. She has been putting triamcinolone cream on it but it is just not healing. She has Dr. Vogel about it and hereferred her here. It has been present for quite a number of months. Patient does share that she had a sacral fixation in the past and she is wondering if it is a hardware that is eroding through.. Medical History: Past Medical History: Diagnosis Date Atrial fibrillation (Multi) Encounter for other screening for malignant neoplasm of breast 09/17/2019 Screening for breast cancer Hyperlipidemia Surgical History: Past Surgical History: Procedure Laterality Date APPENDECTOMY CATARACT EXTRACTION, BILATERAL Bilateral CHOLECYSTECTOMY COLONOSCOPY 06/16/2022 REPEAT 5 YR S/ DR OCAMPO CT ANGIO CORONARY ART WITH HEARTFLOW IF SCORE >30% 02/12/2020 CT ANGIO CORONARY ART WITH HEARTFLOW IF SCORE >30% 02/12/2020 EYE SURGERY Left 02/16/2024 IR SACROPLASTY 05/19/2023 Right Sacral 2- Iliac Fixation and Fusion with Sacroplasty OTHER SURGICAL HISTORY 01/13/2021 Excision of squamous cell carcinoma OTHER SURGICAL HISTORY 12/18/2019 Shoulder surgery TOTAL KNEE ARTHROPLASTY Bilateral 2017 Home Medications: Prior to Admission medications Medication Sig Start Date End Date Taking? Authorizing Provider apixaban (Eliquis) 5 mg tablet Take 1 tablet (5 mg) by mouth 2 times a day. 07/16/24 Yes Sancho Woodruff MD aspirin-calcium carbonate 81 mg-300 mg calcium(777 mg) tablet Take 1 tablet by mouth once daily. Yes Historical Provider, cholecalciferol (Vitamin D-3) 25 MCG (1000 UT) tablet Take 1 tablet (1,000 Units) by mouth once daily. Yes Historical Provider, dexlansoprazole (Dexilant) [address] capsule Take 1 capsule (60 mg) by mouth once daily in the morning. Take before meal. 11/13/24 11/13/25 Yes Alexandro Drake MD diclofenac sodium (Voltaren) 1 % gel Apply to cervical neck and shoulders as needed up to 4 times per day for pain relief. 12/21/23 Yes dilTIAZem CD (Cardizem CD) 240 mg 24 hr capsule TAKE 1 CAPSULE BY MOUTH EVERY DAY 03/19/24 03/19/25 Yes Sancho Woodruff MD fluocinolone (DermOtic Oil) 0.01 % ear drops Place 2 DROPS in affected EAR(S) Twice a day 11/15/24 Yes levothyroxine (Synthroid, Levoxyl) 100 mcg tablet Take 1 tablet (100 mcg) by mouth once daily. 11/13/24 11/13/25 Yes Alexandro Drake MD lidocaine (Lidoderm) 5 % patch Place 1 (one) patch on the skin daily Remove & Discard patch within 12 hours or as directed by MD for 10 days . 12/21/23 Yes lubiprostone (Amitiza) 8 mcg capsule Take 1 capsule (8 mcg) by mouth 2 times daily (morning and late afternoon). 11/13/24 11/13/25 Yes Alexandro Drake MD methocarbamol (Robaxin) 500 mg tablet Take 1 tablet (500 mg) by mouth 4 times a day as needed for muscle spasms. 01/10/25 03/11/25 Yes Alex Mohan MD naloxone (Narcan) 4 mg/0.1 mL nasal spray Administer 1 spray into one nostril for known or suspected opioid overdose. If patient worsens or does not respond, may repeat in 2-3 minutes. . 05/11/24 Yes propafenone (Rythmol) 150 mg tablet Take 1 (one) tablet (150 mg total) by mouth 2 (two) times a day. 04/19/24 Yes rosuvastatin (Crestor) 5 mg tablet Take 1 (one) tablet (5 mg total) by mouth nightly . 10/18/24 Yes traMADol (Ultram) 50 mg tablet Take 1 tablet (50 mg) by mouth every 6 hours if needed for severe pain (7 - 10). Up to 6 in 24 hours 11/30/24 05/29/25 Yes Alex Mohan MD foam bandage (Mepilex Border) 3 X 3 bandage Apply 1 patch topically [address] moistened gauze above medihoney and cover with mepilex 01/18/25 02/17/25 Dariela Garza MD furosemide (Lasix) 40 mg tablet TAKE 2 TABLETS BY MOUTH EVERY DAY 01/16/24 01/15/25 Sancho Woodruff MD honey (MediHoney, honey,) gel topical gel Apply 1 Application topically 3 times a week. 01/18/25 02/17/25 Dariela Garza MD Allergies: Allergies Allergen Reactions Codeine Unknown and Other nausea skin crawling skin crawling Other reaction(s): Other (See Comments) skin crawling Nausea Cyclobenzaprine Other AND OTHER MUSCLE RELAXERS Etodolac Other Ibuprofen Unknown, Nausea Only and Other Upset stomach Upset stomach Other reaction(s): Nausea Only Other reaction(s): Other (See Comments) Upset stomach Lisinopril-Hydrochlorothiazide Unknown Nylon Unknown Adhesive Rash Adhesive Tape-Silicones Rash Latex Rash is allergic to codeine, cyclobenzaprine, etodolac, ibuprofen, lisinopril- hydrochlorothiazide, nylon, adhesive, adhesive tape-silicones, and latex. Family History: Family History Problem Relation Name Age of Onset Pancreatic cancer Mother Hypertension Mother Irritable bowel syndrome Mother Other (CVA) Father Heart attack Father Hypertension Father Other (CVA) Sister Coronary artery disease Sister Other (MALIGNANT MELANOMA) Sister Brain cancer Sister Colon cancer Sister age 80's Uterine cancer Sister Hypertension Sister Other (CVA) Brother Coronary artery disease Brother Heart attack Brother Lung cancer Brother Hypertension Brother Irritable bowel syndrome Brother Multiple myeloma Child Other (CANCER FEMALE ORGANS) Child Social History: Social History Socioeconomic History Marital status: Tobacco Use Smoking status: Never Smokeless tobacco: Never Vaping Use Vaping status: Never Used Substance and Sexual Activity Alcohol use: Yes Comment: glass of wine once a month Drug use: Never Sexual activity: Defer Social Drivers of Health Financial Resource Strain: Unknown (11/19/2020) Received from [facility] Overall Financial Resource Strain (CARDIA) Difficulty of Paying Living Expenses: Patient declined Food Insecurity: Unknown (11/19/2020) Received from [facility] Hunger Vital Sign Worried About Running Out of Food in the Last Year: Patient declined Ran Out of Food in the Last Year: Patient declined Transportation Needs: Unknown (11/19/2020) Received from [facility] PRAPARE - Transportation Lack of Transportation (Medical): Patient declined Lack of Transportation (Non-Medical): Patient declined Physical Activity: Insufficiently Active (11/19/2020) Received from [facility] Exercise Vital Sign Days of Exercise per Week: 2 days Minutes of Exercise per Session: 20 min Stress: No Stress Concern Present (11/19/2020) Received from [facility] - Occupational Stress Questionnaire Feeling of Stress : Only a little Intimate Partner Violence: Unknown (11/19/2020) Received from [facility] Humiliation, Afraid, Rape, and Kick questionnaire Fear of Current or Ex-Partner: Patient declined Emotionally Abused: Patient declined Physically Abused: Patient declined Sexually Abused: Patient declined ROS: Constitutional: no fever, sweats, and chills Cardiovascular: No chest pain Respiratory: No cough or shortness of breath Gastrointestinal: Had a colonoscopy in 2021 with recommendations for repeat in 5 years. Genitourinary: no dysuria Musculoskeletal: no weakness or swelling Integumentary: no rashes Neurological: no confusion Endocrine: no heat or cold intolerance Heme/Lymph: no easy bruising or bleeding Objective: BP 130/86 Pulse 86 Ht 1.473 m (4' 10) Wt 60.6 kg (133 lb 9.6 oz) BMI 27.92 kg/m Physical Exam: Constitutional: No acute distress, conversant, pleasant Neurologic: alert and oriented Psych: appropriate affect Ears, Nose, Mouth and Throat: mucus membranes moist Pulmonary: No labored breathing Cardiovascular: Regular rate and rhythm Abdomen: soft, non-distended, non-tender Musculoskeletal: Moves all extremities, no edema Skin: warm and dry Inner lance cleft she has a almost 2 cm x 1 cm area with a clean base but the skin is gone. There is no surrounding cellulitis. Assessment and Plan: Alma Echeverria is a 84 y.o. old female with open wound of cleft. It is difficult to tell what the etiology of this is. I do not see metal in the base. It seems to be healing nicely but is fairly deep. We will set her up for dressing changes at a centimeter to use Medihoney and cover it with Mepilex and to do that Tuesday and Tuesday. If she has someone that can do it they will go and learn otherwise [facility] will do it. We will check pelvis films to try and getan idea where the wound is related to the hardware and I have encouraged her to mention to them to put a marker at the spot. We will see her back in a couple of weeks to progress the wound. This may need a wound VAC to accelerate the healing although it would be difficult to use it in the area it is. All her questions were answered.. Dariela Garza MD 01/20/2025 documented in this [facility] Work Phone: [phone]) [phone] Evaluation + Plan note* Assessment & Plan Note - Sancho Woodruff MD - 01/01/2025 11:00 AM EDTAssociated Problem(s): Lumbar stenosis with neurogenic claudication Orders: DRUG SCREEN,URINE; Future Follow Up In Primary Care; Future [facility] Work Phone: [phone]) [phone] Evaluation + Plan note* Assessment & Plan Note - Sancho Woodruff MD - 01/01/2025 11:00 AM EDTAssociated Problem(s): Exudative age-related macular degeneration, left eye, with active choroidal n eovascularization [facility] Work Phone: 1([phone] 505-238803-25-2025 Evaluation + Plan note* Assessment & Plan Note - Sancho Woodruff MD - 01/01/2025 11:00 AM EDTAssociated Problem(s): Vitreous hemorrhage, left eye (Multi) [facility] Work Phone: [phone]) 194-269003-25-2025 Evaluation + Plan note* Assessment & Plan Note - Sancho Woodruff MD - 01/01/2025 11:00 AM EDTAssociated Problem(s): DDD (degenerative disc disease), lumbosacral [facility] Work Phone: [phone] 357-646903-25-2025 History of Present illness Narrative* Sancho Woodruff MD - 01/01/2025 11:00 AM EDT Subjective Reason for Visit: Alma Echeverria is an 84 y.o. female here for a Medicare Wellness visit. Past Medical, Surgical, and Family History reviewed and updated in chart. Reviewed all medications by prescribing practitioner or clinical pharmacist (such as prescriptions,OTCs, herbal therapies and supplements) and documented in the medical record. HPI Since the last office visit there have been no interval operations, hospitalizations, important illnesses or injuries. No falls, uses cane. No alcohol, no tobacco, no illicit drugs, No exercise. Checks weekly BP at home 120-128/70-80 DDD lumbar, uses 4-6 tram aday, >50% relief, no side effects. I have personally reviewed the [place]AR[place] report for the above patient. This report is scanned into the electronic medical record. I have considered the risks of abuse, dependence, addiction, and diversion. I believe that it is clinically appropriate for the above patient to be prescribed this medication. AF - on eliquis, proprafenone, managed by cardiology (Dr. Borges) Has lost weight to 135 over the last 2 years. Diet Has a hole with flap just above rectum. Had previous surgery by alexandra. Patient Care Team: Sancho Woodruff MD as PCP - General (Family Medicine) [facility] Provider Review of Systems Denies chest pains palpitations cough shortness of breath heartburn or abdominal pain Objective Vitals: BP 130/80 Pulse 91 Wt 61.2 kg (135 lb) SpO2 99% BMI 28.22 kg/m Physical Exam No bruit. Thyroid nontender. Heart regular without murmur. Lungs clear to auscultation. Assessment & Plan Lumbar stenosis with neurogenic claudication Orders: DRUG SCREEN,URINE; Future Follow Up In Primary Care; Future Controlled drug dependence (Multi) Orders: DRUG SCREEN,URINE; Future Follow Up In Primary Care; Future Routine general medical examination at health care facility Orders: 1 Year Follow Up In Primary Care - Wellness Exam; Future Follow Up In Primary Care; Future Exudative age-related macular degeneration, left eye, with active choroidal neovascularization Vitreous hemorrhage, left eye (Multi) Hepatic cirrhosis, unspecified hepatic cirrhosis type, unspecified whether ascites present (Multi) Degeneration of intervertebral disc of lumbosacral region with discogenic back pain Skin ulcer, unspecified ulcer stage (Multi) Orders: Referral to General Surgery; Future Follow Up In Primary Care; Future documented in this [facility] Work Phone: 1([phone]) 423-750303-25-2025 Miscellaneous Notes* Assessment & Plan Note - Sancho Woodruff MD - 01/01/2025 11:00 AM EDTAssociated Problem(s): Lumbar stenosis with neurogenic claudication Orders: DRUG SCREEN,URINE; Future Follow Up In Primary Care; Future * Assessment & Plan Note - Sancho Woodruff MD - 01/01/2025 11:00 AM EDT Associated Problem(s): Exudative age-related macular degeneration, left eye, with active choroidal neovascularization * Assessment & Plan Note - Sancho Woodruff MD - 01/01/2025 11:00 AM EDT Associated Problem(s): Vitreous hemorrhage, left eye (Multi) * Assessment & Plan Note - Sancho Woodruff MD - 01/01/2025 11:00 AM EDT Associated Problem(s): DDD (degenerative disc disease), lumbosacral documented in this [facility] Work Phone: [phone]) 319-806503-05-2025 Evaluation + Plan note* Assessment & Plan Note - Wang Borges MD - 12/12/2024 12:10 PM ESTAssociated Problem(s): Dyslipidemia LDL was excellent at 58 in July 2023, continue rosuvastatin 5 mg daily [id number] Miscellaneous Notes* Assessment & Plan Note - Wang Borges MD - 12/12/2024 12:10 PM ESTAssociated Problem(s): Dyslipidemia LDL was excellent at 58 in July 2023, continue rosuvastatin 5 mg daily * Assessment & Plan Note - Wang Borges MD - 12/12/2024 12:09 PM EST Associated Problem(s): Coronary artery disease involving [place] coronary artery of [place] heart without angina pectoris History of trivial coronary disease by coronary CCTA. No aspirin given chronic Eliquis use and risk-benefit ratio in an 83-year-old. Continue statin. * Assessment & Plan Note - Wang Borges MD - 12/12/2024 12:09 PM EST Associated Problem(s): HTN (hypertension) Home blood pressures in a good range on Cardizem CD 240 mg once daily * Assessment & Plan Note - Wang Borges MD - 12/12/2024 12:09 PM EST Associated Problem(s): Atrial fibrillation (HCC) She had some atrial fibrillation in August, 2 episodes in September. I did review that she still is at a low dose of propafenone and that she can take extra doses. Should she have more A-fib, I would likely increase her every day dose. I have asked her to get a new Fitbit so we can see what her heart rate is prior to doing this blindly. Continue Cardizem CD 240 mg once daily, propafenone 150 mg twice daily and Eliquis 5 mg twice daily. She is aware of the fact that should she have any recurrent blood in her stool, she needs to discuss this with Dr. Woodruff. documented in this [id number] Evaluation + Plan note* Assessment & Plan Note - Wang Borges MD - 12/12/2024 12:09 PM EST Associated Problem(s): Coronary artery disease involving [place] coronary artery of [place] heart without angina pectoris History of trivial coronary disease by coronary CCTA. No aspirin given chronic Eliquis use and risk-benefit ratio in an 83-year-old. Continue statin. [id number] Evaluation + Plan note* Assessment & Plan Note - Wang Borges MD - 12/12/2024 12:09 PM ESTAssociated Problem(s): HTN (hypertension) Home blood pressures in a good range on Cardizem CD 240 mg once daily [id number] Evaluation + Plan note* Assessment & Plan Note - Wang Borges MD - 12/12/2024 12:09 PM ESTAssociated Problem(s): Atrial fibrillation (HCC) She had some atrial fibrillation in August, 2 episodes in September. I did review that she still is at a low dose of propafenone and that she can take extra doses. Should she have more A-fib, I would likely increase her every day dose. I have asked her to get a new Fitbit so we can see what her heart rate is prior to doing this blindly. Continue Cardizem CD 240 mg once daily, propafenone 150 mg twice daily and Eliquis 5 mg twice daily. She is aware of the fact that should she have any recurrent blood in her stool, she needs to discuss this with Dr. Woodruff. [id number] NoteInterventional Cardiology Clinic Follow-up Heart & Vascular [facility] 12/12/2024 Wang Borges MD [address] [id number] Patient: Alma Echeverria Date of : 1940 (83 y.o.) PCP: Sancho Woodruff MD Assessment & Plan Atrial fibrillation (HCC) She had some atrial fibrillation in August, 2 episodes in September. I did review that she still is at a low dose of propafenone and that she can take extra doses. Should she have more A-fib, I would likely increase her every day dose. I have asked her to get a new Fitbit so we can see what her heart rate is prior to doing this blindly. Continue Cardizem CD 240 mg once daily, propafenone 150 mg twice daily and Eliquis 5 mg twice daily. She is aware of the fact that should she have any recurrent blood in her stool, she needs to discuss this with Dr. Woodruff. HTN (hypertension) Home blood pressures in a good range on Cardizem CD 240 mg once daily Coronary artery disease involving [place] coronary artery of [place] heart without angina pectoris History of trivial coronary disease by coronary CCTA. No aspirin given chronic Eliquis use and risk-benefit ratio in an 83-year-old. Continue statin. Dyslipidemia LDL was excellent at 58 in July 2023, continue rosuvastatin 5 mg daily Follow-up: Return in about 6 months (around 06/14/2025) for Physician Visit -telehealth. Chief Complaint: Follow-up (Overdue 9 months follow up, Added Eliquis Last lipids 07/11/2023) Subjective History of Present Illness: Alma Echeverria is a 83 y.o. female who comes in today for routine follow-up. She states that in August, she had a mimosa which is unusual for her and that later on that evening, she had palpitations and felt short of breath. She felt that it was her atrial fibrillation and lasted for about 20 minutes. She also had 2 episodes in September of atrial fibrillation but were not as symptomatic. She has not had any recurrent arrhythmia since September. She tells me home blood pressures in the 120s to 130s but she is not aware of her pulse. She did have an episode 6 weeks ago where she had a bad odor to her stool and then she had some black stools and some blood in her stool after that but it has not reoccurred. She denies any chest pain. She has not had any falls. LDL was July. Heart is regular rate and rhythm, no carotid bruit, she has trace lower extremity edema with compression stockings in place. Objective Tobacco Use Smoking Status Never Passive exposure: Never Smokeless Tobacco Never ECG 12 lead by Shirley Perez MA (12/12/2024 1128) Echocardiogram complete Final Result by Haroon Quintanilla MD (07/29/2016 1048) CT CCTA Heart With And Without Contrast Final Result by Andrew Marie DO (02/12/20202036) CCTA Heart (Clinical Quality Assurance Specialist read) Final Result by Chante Oliva MD (02/12/2020 1035) HOME Medications: Patient's Medications New Prescriptions No medications on file Previous Medications AMITIZA 8 MCG CAPSULE Take 1 (one) capsule (8 mcg total) by mouth 2 (two) times a day with meals . APIXABAN (ELIQUIS) 5 MG TAB One bid . CHOLECALCIFEROL, VITAMIN D3, 1,000 UNIT TABLET Take 1 (one) tablet (1,000 Units total) by mouth daily PM . DEXLANSOPRAZOLE (DEXILANT) 30 MG CAPSULE Take 1 (one) capsule (30 mg total) by mouth daily AM . DICLOFENAC SODIUM 1% (VOLTAREN) 1 % GEL Apply topically 4 (four) times a day as needed for pain Apply to cervical neck and shoulders as needed up to 4 times per day for pain relief. . DILTIAZEM (CARDIZEM CD) 240 MG 24 HR CAPSULE Take 1 (one) capsule (240 mg total) by mouth daily AM . FLUOCINOLONE ACETONIDE OIL 0.01 % DROP 2 (two) times a day as needed . FUROSEMIDE (LASIX) 40 MG TABLET Take 2 (two) tablets (80 mg total) by mouth daily . LEVOTHYROXINE (SYNTHROID, LEVOTHROID) 50 MCG TABLET Take 1 (one) tablet (50 mcg total) by mouth once daily AM . METHOCARBAMOL (ROBAXIN) 500 MG TABLET Take 1 (one) tablet (500 mg total) by mouth once daily . MULTIVITAMIN WITH MINERALS TABLET Take 1 (one) tablet by mouth daily PM . NALOXONE (NARCAN) 4 MG/ACTUATION SPRY Administer 1 spray into one nostril for known or suspected opioid overdose. If patient worsens or does not respond, may repeat in 2-3 minutes. . POLYETHYLENE GLYCOL (MIRALAX) 17 GRAM POWDER Take 17 (seventeen) g by mouth daily AM . PROPAFENONE (RYTHMOL) 150 MG TABLET Take 1 (one) tablet (150 mg total) by mouth 2 (two) times a day . ROSUVASTATIN (CRESTOR) 5 MG TABLET Take 1 (one) tablet (5 mg total) by mouth nightly . TRAMADOL (ULTRAM) 50 MG TABLET Take 1 (one) tablet (50 mg total) by mouth 2 (two) times a day as needed . Modified Medications No medications on file Discontinued Medications No medications on file Vital Signs: BP (!) 140/92 (BP Location: Left arm, Patient Position: Sitting, BP Cuff Size: Adult) Pulse 9 (more content not included)...[facility] [id number] History of Present illness Narrative* Wang Borges MD - 12/12/2024 12:06 PM EST Interventional Cardiology Clinic Follow-up Heart & Vascular [facility] 12/12/2024 Wang Borges MD [address] [facility] [address] [place] [id number] Patient: Alma Echeverria Date of : 1940 (83 y.o.) PCP: Sancho Woodruff MD Assessment & Plan Atrial fibrillation (HCC) She had some atrial fibrillation in August, 2 episodes in September. I did review that she still is at a low dose of propafenone and that she can take extra doses. Should she have more A-fib, I would likely increase her every day dose. I have asked her to get a new Fitbit so we can see what her heart rate is prior to doing this blindly. Continue Cardizem CD 240 mg once daily, propafenone 150 mg twice daily and Eliquis 5 mg twice daily. She is aware of the fact that should she have any recurrent blood in her stool, she needs to discuss this with Dr. Woodruff. HTN (hypertension) Home blood pressures in a good range on Cardizem CD 240 mg once daily Coronary artery disease involving [place] coronary artery of [place] heart without angina pectoris History of trivial coronary disease by coronary CCTA. No aspirin given chronic Eliquis use and risk-benefit ratio in an 83-year-old. Continue statin. Dyslipidemia LDL was excellent at 58 in July 2023, continue rosuvastatin 5 mg daily Follow-up: Return in about 6 months (around 06/14/2025) for Physician Visit -telehealth. Chief Complaint: Follow-up (Overdue 9 months follow up, Added Eliquis Last lipids 07/11/2023) Subjective History of Present Illness: Alma Echeverria is a 83 y.o. female who comes in today for routine follow-up. She states that in August, she had a mimosa which is unusual for her and that later on that evening, she had palpitations and felt short of breath. She felt that it was her atrial fibrillation and lasted for about 20 minutes. She also had 2 episodes in September of atrial fibrillation but were not as symptomatic. She has not had any recurrent arrhythmia since September. She tells me home blood pressures in the 120s to 130s but she is not aware of her pulse. She did have an episode 6 weeks ago where she had a bad odor to her stool and then she had some black stools and some blood in her stool after that but it hasnot reoccurred. She denies any chest pain. She has not had any falls. LDL was July. Heart is regular rate and rhythm, no carotid bruit, she has trace lower extremity edema with compression stockings in place. Objective Tobacco Use Smoking Status Never Passive exposure: Never Smokeless Tobacco Never ECG 12 lead by Shirley Perez MA (12/12/2024 1128) Echocardiogram complete Final Result by Haroon Quintanilla MD (07/29/2016 1048) CT CCTA Heart With And Without Contrast Final Result by Andrew Marie DO (02/12/20202036) CCTA Heart (Clinical Quality Assurance Specialist read) Final Result by Chante Oliva MD (02/12/2020 1035) HOME Medications: Patient's Medications New Prescriptions No medications on file Previous Medications AMITIZA 8 MCG CAPSULE Take 1 (one) capsule (8 mcg total) by mouth 2 (two) times a day with meals . APIXABAN (ELIQUIS) 5 MG TAB One bid . CHOLECALCIFEROL, VITAMIN D3, 1,000 UNIT TABLET Take 1 (one) tablet (1,000 Units total) by mouth daily PM . DEXLANSOPRAZOLE (DEXILANT) 30 MG CAPSULE Take 1 (one) capsule (30 mg total) by mouth daily AM . DICLOFENAC SODIUM 1% (VOLTAREN) 1 % GEL Apply topically 4 (four) times a day as needed for pain Apply to cervical neck and shoulders as needed up to 4 times per day for pain relief. . DILTIAZEM (CARDIZEM CD) 240 MG 24 HR CAPSULE Take 1 (one) capsule (240 mg total) by mouth daily AM . FLUOCINOLONE ACETONIDE OIL 0.01 % DROP 2 (two) times a day as needed . FUROSEMIDE (LASIX) 40 MG TABLET Take 2 (two) tablets (80 mg total) by mouth daily . LEVOTHYROXINE (SYNTHROID, LEVOTHROID) 50 MCG TABLET Take 1 (one) tablet (50 mcg total) by mouth once daily AM . METHOCARBAMOL (ROBAXIN) 500 MG TABLET Take 1 (one) tablet (500 mg total) by mouth once daily . MULTIVITAMIN WITH MINERALS TABLET Take 1 (one) tablet by mouth daily PM . NALOXONE (NARCAN) 4 MG/ACTUATION SPRY Administer 1 spray into one nostril for known or suspected opioid overdose. If patient worsens or does not respond, may repeat in 2-3 minutes. . POLYETHYLENE GLYCOL (MIRALAX) 17 GRAM POWDER Take 17 (seventeen) g by mouth daily AM . PROPAFENONE (RYTHMOL) 150 MG TABLET Take 1 (one) tablet (150 mg total) by mouth 2 (two) times a day. ROSUVASTATIN (CRESTOR) 5 MG TABLET Take 1 (one) tablet (5 mg total) by mouth nightly . TRAMADOL (ULTRAM) 50 MG TABLET Take 1 (one) tablet (50 mg total) by mouth 2 (two) times a day as needed . Modified Medications No medications on file Discontinued Medications No medications on file Vital Signs: BP (!) 140/92 (BP Location: Left arm, Patient Position: Sitting, BP Cuff Size: Adult) Pulse 94 Ht 4' 10 Wt 61.7 kg (136 lb) SpO2 95% BMI 28.42 kg/m Physical Exam Labs: I personally reviewed and interpreted the labs documented below. Lab Results Component Value Date TRIG 76 08/09/2016 Creatinine clearance cannot be calculated (Patient's most recent lab result is older than the maximum 14 days allowed.) documented in this [id number] NoteCERVICAL INTERLAMINAR EPIDURAL STEROID INJECTION PROCEDURE: 1) C7-T1 interlaminar epidural steroid injection 2) Fluoroscopic needle guidance REASON FOR PROCEDURE: Cervical Radiculopathy PHYSICIAN: Jaylan Benavides D.O. MEDICATIONS INJECTED: 1 mL Dexamethasone PF (10 mg/mL) and 3 mL of sterile, preservative-free normal saline, contrast 1 ml LOCAL ANESTHETIC INJECTED: 3 mL of 1% lidocaine SEDATION MEDICATIONS: None ESTIMATED BLOOD LOSS: None COMPLICATIONS: None TECHNIQUE: Time-out was taken to identify the correct patient, procedure and side prior to starting the procedure. With the patient lying in a prone position with the neck in a slightly flexed position, the area was prepped and draped in sterile fashion using DuraPrep and a fenestrated drape. The area at C7-T1 was determined under fluoroscopic guidance. A 25-gauge, 1.5-inch needle was used to anesthetize the needle entry site and subcutaneous tissues. The 20-gauge, 3.5-inch Tuohy needle was advanced through the ligamentum flavum using loss of resistance technique. Once the tip of the needle was thought to be in the desired position, 0.5 cc contrast was injected to confirm only epidural spread and no vascular runoff via A-P and contralateral oblique views. The injectate was then injected slowly. The procedure was completed without complications and was tolerated well. The patient was monitored after the procedure. The patient (or responsible democrat) was given post-procedure and discharge instructions to follow at home. The patient was discharged in stable condition. Notes: none Follow-up in office AUTHENTICATED BY JAYLAN BENAVIDES, ON 11/20/2024 13:49:15[facility] 11-20-2024 NotePre-Procedural History and Physical Update Patient Name: Alma Echeverria Admit Date: [id number] MR #: [id number] : 1940 Physicians: Sancho Woodruff MD Interval History: Alma Echeverria presents today for cervical epidural steroid injection. The patient reports no interval changes to their health history since the last office visit or pre-admission encounter. The pain remains consistent to their previously documented history. The pain has been present for more than 6 months. Pain score is typically greater than 5/10. Conservative approaches such as medication use, physical therapy modalities and avoidance have not improved the symptoms in the past. The symptoms inhibit at least in part basic activity of daily living. Past Medical/Surgical History: Past Medical History: Diagnosis Date Abdominal pain Anemia Arm numbness Arm weakness Arthritis Atrial fibrillation (HCC) [place] esophagus Cataract Endometrial cancer (HCC) 1969 uterine ca Frequent UTI History of blood transfusion HLD (hyperlipidemia) Hypertension Leg numbness Leg weakness Liver cirrhosis secondary to nonalcoholic steatohepatitis (MATTHEW) (HCC) Sleep apnea, obstructive NO CPAP - DUE TO WEIGHT LOSS Squamous cell skin cancer Tongue irritation Uterine mass Reportedly benign , Past Surgical History: Procedure Laterality Date APPENDECTOMY ARTHROPLASTY SHOULDER REVERSE Right 11/29/2019 Procedure: Reverse right total shoulder replacement; Surgeon: Dada Hathaway MD; Location: Main OR; Service: Orthopedic CATARACTS Bilateral CHOLECYSTECTOMY CT COLONOSCOPY 11/18/[address] COLONOSCOPY 05/08/2019 CT COLONOSCOPY EXPLORATORY LAPAROTOMY N/A 07/29/2016 Procedure: EXPLORATORY LAPAROTOMY LYSIS OF ADHESION ; Surgeon: Smooth Sarabia MD; Location: [facility] Main OR; Service: FOOT FUSION Left HYSTERECTOMY LAMINECTOMY DECOMPRESSION LUMBAR WITH FUSION NAVIGATIONAL 1 LEVEL Right 05/19/2023 Procedure: Right Sacral 2- Iliac Fixation and Fusion with Sacroplasty; Surgeon: Bridger Monique MD; Location: Main OR; Service: Neurological OOPHORECTOMY RADIATION uterine ca TONSILLECTOMY TOTAL HIP ARTHROPLASTY Right TOTAL KNEE ARTHROPLASTY Bilateral TUMOR EXCISION NEAR OVARIES VEIN LIGATION Left LEG Medications: Current Outpatient Medications Medication Instructions Amitiza 8 mcg, 2 times daily with meals apixaban (Eliquis) 5 mg Tab One bid cholecalciferol (vitamin D3) 1,000 Units, Daily dexlansoprazole (DEXILANT) 30 mg, Daily diclofenac sodium 1% (VOLTAREN) 1 % Gel Topical, 4 times daily PRN, Apply to cervical neck and shoulders as needed up to 4 times per day for pain relief. diltiazem (CARDIZEM CD) 240 mg, Daily furosemide (LASIX) 80 mg, Oral, Daily levothyroxine (SYNTHROID, LEVOTHROID) 50 mcg, Daily methocarbamoL (ROBAXIN) 500 MG tablet multivitamin with minerals tablet 1 tablet, Daily naloxone (NARCAN) 4 mg/actuation [place] Administer 1 spray into one nostril for known or suspected opioid overdose. If patient worsens or does not respond, may repeat in 2-3 minutes. polyethylene glycol (MIRALAX) 17 g, Daily propafenone (RYTHMOL) 150 mg, Oral, 2 times daily rosuvastatin (CRESTOR) 5 mg, Oral, Nightly traMADol (ULTRAM) 50 mg, 2 times daily PRN Allergies: Allergies Allergen Reactions Codeine Other (See Comments) and Unknown skin crawling Other reaction(s): Other (See Comments) skin crawling Nausea nausea skin crawling skin crawling Other reaction(s): Other (See Comments) skin crawling Nausea Cyclobenzaprine Other (See Comments) AND OTHER MUSCLE RELAXERS AND OTHER MUSCLE RELAXERS Ibuprofen Other (See Comments), GI Intolerance, Nausea Only and Unknown Upset stomach Other reaction(s): Nausea Only Other reaction(s): Other (See Comments) Upset stomach Upset stomach Upset stomach Other reaction(s): Nausea Only Other reaction(s): Other (See Comments) Upset stomach Latex Lisinopril-Hydrochlorothiazide Nsaids (Non-Steroidal Anti-Inflammatory Drug) Other (See Comments) Liver problem Nylon Adhesive Tape-Silicones Rash Review of Systems: General: No fatigue or malaise Cardio-Pulmonary: No chest pain, no report of shortness of breath Neuro/Musculoskeletal: neck pain Dermatological: no pruritus, rash, induration or infection in the area to be treated Hematological and Lymphatic: No abnormal bleeding, bruising, or petechiae Psychological: no acute anxiety or depression Physical Exam: General: Alert, cooperative, no distress, appears stated age Neuro-Psych: Alert and Oriented, Attention intact. Cognition appropriate to make own decisions. Head: Normocephalic, Atraumatic Resp: Even and Unlabored. Cardiac: no JVD noted. Skin: No rash, signs of infection or breakdown of skin that would contraindicate interventional care Neuro-Musculoskeletal: No gisell (more content not included)...[facility] 10-30-2024 Instructions* Patient Instructions* Jose A Ornelas, [employer] - 10/30/2024 11:47 AM EST If chronic opioids were prescribed, the risk of chronic opioid therapy includes, but not limited constipation, nausea, vomiting, hormonal changes, osteoporosis, developing a tolerance, dependence or addiction to the medication and the possibility of overdose and . Prior to initiating chronic opioid therapy, patient failed many non-opioid therapies including PT, injections/pain procedures, NSAIDs, Tylenol, muscle relaxers and nerve medications. The goal of opioid therapy is to reduce their chronic pain and improve their functional capacity and quality of life. The lowest effective dose will be utilized for the shortest duration possible. Weaning of opioids will always be considered whenever possible. The patient can NOT mix opioids with other sedating medications or substances including marijuana, benzodiazepines, muscle relaxers, nerve medication and alcohol. The patient can only take medicationas prescribed. The patient can NOT sell, share or give away their medication. The patient must locktheir medication in a safe location away from children and other family members. If patient has a history of sleep apnea or COPD, they are at increased risk of respiratory depression, overdose and given their underlying disease process. It is important to continue to using their CPAP and supplemental oxygen as prescribed. Patient should NOT take their pain medication if they have a respiratory illness as this puts them at increased risk of respiratory depression, overdose and . Narcan is the reversal agent for an opioid overdose. This should always be next to your opioid medication in the event of an opioid overdose. Narcan prescription was ordered upon initiation of chronic opioid therapy and will be offered or ordered at every follow-up visit or sooner if patient requests. Please refer to instructions on medication packet for proper use. Please discuss with your pharmacist if you have any further questions. Patient agrees to submit to drugs screens and pill counts as requested to ensure compliance and rule out any diversion, medication overuse, inappropriately taking other prescriptions medications or use of illicit substances. Patient understands if either a drug screen or pill count is inappropriate, they will be discharged from the practice. They have agreed to this by way of our mutually signed pain contract scanned into EMR. If a procedure was ordered, the risks of the procedure include, but not limited to, worsening pain,failure to improve pain, bruising, bleeding, infection, medication side effects or allergic reaction to the medications used, tissue injury, nerve injury, nerve palsy or paralysis, transient or permanent weakness, injection of local anesthetic intravascularly or intrathecally resulting in cardiac arrhythmias, fainting, respiratory arrest, spinal cord injury, heart attack, stroke and . If anesthesia or sedation will be used there is a risk for cardiac and respiratory complications includingheart attack, stroke, cardiac arrest and . If steroid is given, this can increase blood sugar (if diabetic) and blood pressure (if history of high blood pressure) for several days following the injection.Patient should check both blood pressure and blood sugar regularly and if abnormal should follow-up with their primary care physician. If patient takes a blood thinner or anti-platelet medication, we will request written permission from the managing physician to hold the blood thinner or anti-platelet medication per the SISSY guidelines. If the managing physician does not give approval to hold the medication for the duration requested, the procedure will be cancelled. Holding blood thinner or anti-platelet medication can result in increased risk of stroke, heart attack or even when approval by the managing physician is given. documented in this [id number] [facility] Note Patient Name: Alma Echeverria Referring Physician: No ref. provider found Date of : 1940 PCP: Sancho Woodruff MD Date of Service: 10/30/24 Assessment & Plan Assessment: Cervical radiculopathy Cervical degenerative disc disease Cervical spondylosis Cervical spinal stenosis Chronic compression fractures, T12, L3, L4 Chronic pain syndrome Narrative: She presents today with chronic neck pain with intermittent radiation into bilateral shoulders and head. I suspect this secondary to combination of cervical radiculopathy, cervical degenerative disease and cervical spondylosis. X-ray of the cervical spine reviewed and shows cervical spondylosis and cervical degenerative disc disease. MRI of the cervical spine reviewed and shows severe degenerative changes throughout the cervical spine although this is most notable at C1-C2, C5-C6 and C6-C7. There are also varying degrees of foraminal stenosis and moderate canal stenosis at C5-C6 and C6/C7. We will schedule an epidural steroid injection at C7-T1 to treat her cervical radicular symptoms. GIL was ordered last visit on 05/11/24. She has not heard from our office regarding her injection. It appears there were some varying issues with scheduling and med holds. I will reorder this today and notify our RN Anna. She endorses adequate relief on her current medication regimen. She denies any side effects this time. I agree with continuing tramadol 50 mg 3-4 times daily as needed to treat her chronic pain. Medications are provided by Dr Woodruff. Plan: Medications: Continue Tramadol 50 mg QID prn (Dr Woodruff); Continue Voltaren 1% gel prn; Continue robaxin 500mg TID PRN Follow-up: Return in about 5 months (around 03/30/2025) for Pain Mgmt, Med Check, Injection. Compliance Pain Contract Signed: 02/22/24 OARRS/NARxCheck: 10/30/24 Drug Screen/Pill Count History: UDS 10/30/24: pending UDS 05/11/24: appropriate. + alcohol. She understands she cannot mix alcohol and chronic opioids as this can increase her risk of sedation, overdose and . Narcan offered/ordered: 10/30/24 - N/A Opioid Risk Tool (ORT): Gender Male or Female: F (07/11/2024 10:00 AM) Family History of Substance Abuse (Alcohol): 1 (07/11/2024 10:00 AM) Family History of Substance Abuse (Illegal Drugs): 0 (07/11/2024 10:00 AM) Family History of Substance Abuse (Prescription Drugs): 0 (07/11/2024 10:00 AM) Personal History of Substance Abuse (Alcohol): 0 (07/11/2024 10:00 AM) Personal History of Substance Abuse (Illegal Drugs): 0 (07/11/2024 10:00 AM) Personal History of Substance Abuse (Prescription Drugs): 0 (07/11/2024 10:00 AM) History of Preadolescent Sexual Abuse: 0 (07/11/2024 10:00 AM) Psychological Disease: 0 (07/11/2024 10:00 AM) Psychological Disease (Depression): 0 (07/11/2024 10:00 AM) Total : 1 (07/11/2024 10:00 AM) Total Score Risk Category: Low Risk (0-3) (07/11/2024 10:00 AM) Oswestry Disability Index (MARYLU): Oswestry Low Back Disability Index My BACK PAIN at the moment is: 2 (07/11/2024 10:00 AM) Personal care: 0 (07/11/2024 10:00 AM) Lifitn (07/11/2024 10:00 AM) Walkin (07/11/2024 10:00 AM) Sittin (07/11/2024 10:00 AM) Standin (07/11/2024 10:00 AM) Sleepin (07/11/2024 10:00 AM) Sex Life: 4 (07/11/2024 10:00 AM) Social Life: 1 (07/11/2024 10:00 AM) Travelin (07/11/2024 10:00 AM) Oswestry Score: 18 (07/11/2024 10:00 AM) Current Opioid Misuse Measure (COMM): Current Opioid Misuse Measure (COMM) In the past 30 days, how often have you had trouble with thinking clearly or had memory problems?: 0 (10/30/2024 11:00 AM) In the past 30 days, how often do people complain that you are not completing necessary tasks? (i.e., doing things that need to be done, such as going to class, work or appointments) : 0 (10/30/2024 11:00 AM) In the past 30 days, how often have you had to go to someone other than your prescribing physician to get sufficient pain relief from medications? (i.e., another doctor, the Emergency Room, friends, street sources): 0 (10/30/2024 11:00 AM) In the past 30 days, how often have you taken your medications differently from how they are prescribed?: 0 (10/30/2024 11:00 AM) In the past 30 days, how often have you seriously thought about hurting yourself?: 0 (10/30/2024 11:00 AM) In the past 30 days, how much of your time was spent thinking about opioid medications (having enough, taking them, dosing schedule, etc.)?: 0 (10/30/2024 11:00 AM) In the past 30 days, how often have you been in an argument?: 0 (10/30/2024 11:00 AM) In the past 30 days, how often have you had trouble controlling your anger (e.g., road rage, screaming, etc.)?: 0 (10/30/2024 11:00 AM) In the past 30 days, how often have you needed to take pain medications belonging to someone else?: 0 (10/30/2024 11:00 AM) In the past 30 days, how often have (more content not included)...[facility] [id number] History of Present illness Narrative* Jose A Ornelas, ELIJAH - 10/30/2024 11:15 AM EST [facility] Interventional Pain Management Office Note Patient Name: Alma Echeverria Referring Physician: No ref. provider found Date of : 1940 PCP: Sancho Woodruff MD Date of Service: 10/30/24 Assessment & Plan Assessment: Cervical radiculopathy Cervical degenerative disc disease Cervical spondylosis Cervical spinal stenosis Chronic compression fractures, T12, L3, L4 Chronic pain syndrome Narrative: She presents today with chronic neck pain with intermittent radiation into bilateral shoulders and head. I suspect this secondary to combination of cervical radiculopathy, cervical degenerative disease and cervical spondylosis. X-ray of the cervical spine reviewed and shows cervical spondylosis and cervical degenerative disc disease. MRI of the cervical spine reviewed and shows severe degenerative changes throughout the cervical spine although this is most notable at C1-C2, C5-C6 and C6-C7. There are also varying degrees of foraminal stenosis and moderate canal stenosis at C5-C6 and C6/C7. We will schedule an epidural steroid injection at C7-T1 to treat her cervical radicular symptoms. GIL was ordered last visit on 05/11/24. She has not heard from our office regarding her injection. It appears there were some varying issues with scheduling and med holds. I will reorder this today and notify our RN Anna. She endorses adequate relief on her current medication regimen. She denies any side effects this time. I agree with continuing tramadol 50 mg 3-4 times daily as needed to treat her chronic pain. Medications are provided by Dr Woodruff. Plan: Medications: Continue Tramadol 50 mg QID prn (Dr Woodruff); Continue Voltaren 1% gel prn; Continue robaxin 500mg TID PRN Follow-up: Return in about 5 months (around 03/30/2025) for Pain Mgmt, Med Check, Injection. Compliance Pain Contract Signed: 02/22/24 OARRS/NARxCheck: 10/30/24 Drug Screen/Pill Count History: UDS 10/30/24: pending UDS 05/11/24: appropriate. + alcohol. She understands she cannot mix alcohol and chronic opioids as this can increase her risk of sedation, overdose and . Narcan offered/ordered: 10/30/24 - N/A Opioid Risk Tool (ORT): Gender Male or Female: F (07/11/2024 10:00 AM) Family History of Substance Abuse (Alcohol): 1 (07/11/2024 10:00 AM) Family History of Substance Abuse (Illegal Drugs): 0 (07/11/2024 10:00 AM) Family History of Substance Abuse (Prescription Drugs): 0 (07/11/2024 10:00 AM) Personal History of Substance Abuse (Alcohol): 0 (07/11/2024 10:00 AM) Personal History of Substance Abuse (Illegal Drugs): 0 (07/11/2024 10:00 AM) Personal History of Substance Abuse (Prescription Drugs): 0 (07/11/2024 10:00 AM) History of Preadolescent Sexual Abuse: 0 (07/11/2024 10:00 AM) Psychological Disease: 0 (07/11/2024 10:00 AM) Psychological Disease (Depression): 0 (07/11/2024 10:00 AM) Total : 1 (07/11/2024 10:00 AM) Total Score Risk Category: Low Risk (0-3) (07/11/2024 10:00 AM) Oswestry Disability Index (MARYLU): Oswestry Low Back Disability Index My BACK PAIN at the moment is: 2 (07/11/2024 10:00 AM) Personal care: 0 (07/11/2024 10:00 AM) Lifitn (07/11/2024 10:00 AM) Walkin (07/11/2024 10:00 AM) Sittin (07/11/2024 10:00 AM) Standin (07/11/2024 10:00 AM) Sleepin (07/11/2024 10:00 AM) Sex Life: 4 (07/11/2024 10:00 AM) Social Life: 1 (07/11/2024 10:00 AM) Travelin (07/11/2024 10:00 AM) Oswestry Score: 18 (07/11/2024 10:00 AM) Current Opioid Misuse Measure (COMM): Current Opioid Misuse Measure (COMM) In the past 30 days, how often have you had trouble with thinking clearly or had memory problems?: 0 (10/30/2024 11:00 AM) In the past 30 days, how often do people complain that you are not completing necessary tasks? (i.e., doing things that need to be done, such as going to class, work or appointments) : 0 (10/30/2024 11:00 AM) In the past 30 days, how often have you had to go to someone other than your prescribing physician to get sufficient pain relief from medications? (i.e., another doctor, the Emergency Room, friends, street sources): 0 (10/30/2024 11:00 AM) In the past 30 days, how often have you taken your medications differently from how they are prescribed?: 0 (10/30/2024 11:00 AM) In the past 30 days, how often have you seriously thought about hurting yourself?: 0 (10/30/2024 11:00 AM) In the past 30 days, how much of your time was spent thinking about opioid medications (having enough, taking them, dosing schedule, etc.)?: 0 (10/30/2024 11:00 AM) In the past 30 days, how often have you been in an argument?: 0 (10/30/2024 11:00 AM) In the past 30 days, how often have you had trouble controlling your anger (e.g., road rage, screaming, etc.)?: 0 (10/30/2024 11:00 AM) In the past 30 days, how often have you needed to take pain medications belonging to someone else?:0 (10/30/2024 11:00 AM) In the past 30 days, how often have you been worried about how you're handling your medications?: 0(10/30/2024 11:00 AM) In the past 30 days, how often have others been worried about how you're handling your medications?: 0 (10/30/2024 11:00 AM) In the past 30 days, how often have you had to make an emergency phone call or show up at the clinic without an appointment?: 0 (10/30/2024 11:00 AM) In the past 30 days, how often have you gotten angry with people?: 0 (10/30/2024 11:00 AM) In the past 30 days, how often have you had to take more of your medication than prescribed?: 0 (10/30/2024 11:00 AM) In the past 30 days, how often have you borrowed pain medication from someone else?: 0 (10/30/2024 11:00 AM) In the past 30 days, how often have you used your pain medicine for symptoms other than for pain (e.g., to help you sleep, improve your mood, or relieve stress)?: 0 (10/30/2024 11:00 AM) In the past 30 days, how often have you had to visit the Emergency Room?: 0 (10/30/2024 11:00 AM) Total Score: 0 (10/30/2024 11:00 AM) If chronic opioids were prescribed, the risk of chronic opioid therapy includes, but not limited constipation, nausea, vomiting, hormonal changes, osteoporosis, developing a tolerance, dependence or addiction to the medication and the possibility of overdose and . Prior to initiating chronic opioid therapy, patient failed many non-opioid therapies including PT, injections/pain procedures, NSAIDs, Tylenol, muscle relaxers and nerve medications. The goal of opioid therapy is to reduce their chronic pain and improve their functional capacity and quality of life. The lowest effective dose will be utilized for the shortest duration possible. Weaning of opioids will always be considered whenever possible. The patient can NOT mix opioids with other sedating medications or substances including marijuana, benzodiazepines, muscle relaxers, nerve medication and alcohol. The patient can only take medicationas prescribed. The patient can NOT sell, share or give away their medication. The patient must locktheir medication in a safe location away from children and other family members. If patient has a history of sleep apnea or COPD, they are at increased risk of respiratory depression, overdose and given their underlying disease process. It is important to continue to using their CPAP and supplemental oxygen as prescribed. Patient should NOT take their pain medication if they have a respiratory illness as this puts them at increased risk of respiratory depression, overdose and . Narcan is the reversal agent for an opioid overdose. This should always be next to your opioid medication in the event of an opioid overdose. Narcan prescription was ordered upon initiation of chronic opioid therapy and will be offered or ordered at every follow-up visit or sooner if patient requests. Please refer to instructions on medication packet for proper use. Please discuss with your pharmacist if you have any further questions. Patient agrees to submit to drugs screens and pill counts as requested to ensure compliance and rule out any diversion, medication overuse, inappropriately taking other prescriptions medications or use of illicit substances. Patient understands if either a drug screen or pill count is inappropriate, they will be discharged from the practice. They have agreed to this by way of our mutually signed pain contract scanned into EMR. If a pain procedure was ordered, the risks of the procedure include, but not limited to, worsening pain, failure to improve pain, bleeding, infection, nerve injury/paralysis, and headache. The benefits of the procedure included reduction of pain, improvement in functional status and improvement in ability to perform activities of daily living. If steroid is given, this can increase blood sugar (if diabetic) and blood pressure (if history of high blood pressure) for several days following the injection.Patient should check both blood pressure and blood sugar regularly and if abnormal should follow-up with their primary care physician. If patient takes a blood thinner or anti-platelet medication, we will request written permission from the managing physician to hold the blood thinner or anti-platelet medication per the SISSY guidelines. If the managing physician does not give approval to hold the medication for the duration requested, the procedure will be cancelled. Holding blood thinner or anti-platelet medication can result in increased risk of stroke, heart attack or even when approval by the managing physician is given. History of Present Illness / Review of Systems Reason for Visit: Follow-up Pain location: neck and she is having headaches, shoulders Current pain Level: 6 Worst pain Level: 8 Pain description: aching and steady Radiation: Yes Sensory changes: No Motor changes: Yes Duration of pain: >6 months Increases pain: evening reaching up and running the sweeper and washing dishes Decreases pain: medications Patient's Goals: decrease pain, decrease pain with activity, improve ability to perform activities of daily living, improve quality of life, improve sleep, stand longer, and walk further Acceptable level of pain: 3 Additional concerns: none Focused Review of Systems: Loss of bladder control: Denies Loss of bowel control: Denies Saddle anesthesia: Denies Recent falls: Denies Constipation: Yes but from medication Past Medical History Past Medical History: Diagnosis Date Abdominal pain Anemia Arm numbness Arm weakness Arthritis Atrial fibrillation (HCC) Hanley esophagus Cataract Endometrial cancer (HCC) 1970 uterine ca Frequent UTI History of blood transfusion HLD (hyperlipidemia) Hypertension Leg numbness Leg weakness Liver cirrhosis secondary to nonalcoholic steatohepatitis (MATTHEW) (HCC) Sleep apnea, obstructive NO CPAP - DUE TO WEIGHT LOSS Squamous cell skin cancer Tongue irritation Uterine mass Reportedly benign Past Surgical History Past Surgical History: Procedure Laterality Date APPENDECTOMY ARTHROPLASTY SHOULDER REVERSE Right 11/29/2019 Procedure: Reverse right total shoulder replacement; Surgeon: Dada Hathaway MD; Location: Main OR; Service: Orthopedic CATARACTS Bilateral CHOLECYSTECTOMY CT COLONOSCOPY 11/18/[address] COLONOSCOPY 05/08/2019 CT COLONOSCOPY EXPLORATORY LAPAROTOMY N/A 07/29/2016 Procedure: EXPLORATORY LAPAROTOMY LYSIS OF ADHESION ; Surgeon: Smooth Sarabia MD; Location: [facility] Main OR; Service: FOOT FUSION Left HYSTERECTOMY LAMINECTOMY DECOMPRESSION LUMBAR WITH FUSION NAVIGATIONAL 1 LEVEL Right 05/19/2023 Procedure: Right Sacral 2- Iliac Fixation and Fusion with Sacroplasty; Surgeon: Bridger Monique MD; Location: Main OR; Service: Neurological OOPHORECTOMY RADIATION uterine ca TONSILLECTOMY TOTAL HIP ARTHROPLASTY Right TOTAL KNEE ARTHROPLASTY Bilateral TUMOR EXCISION NEAR OVARIES VEIN LIGATION Left LEG Allergies Allergies: Codeine, Cyclobenzaprine, Ibuprofen, Latex, Lisinopril-hydrochlorothiazide, Nsaids (non-steroidal anti-inflammatory drug), Nylon, and Adhesive tape-silicones Medications Current Outpatient Medications Medication Instructions Amitiza 8 mcg, 2 times daily with meals apixaban (Eliquis) 5 mg Tab One bid cholecalciferol (vitamin D3) 1,000 Units, Daily dexlansoprazole (DEXILANT) 30 mg, Daily diclofenac sodium 1% (VOLTAREN) 1 % Gel Topical, 4 times daily PRN, Apply to cervical neck and shoulders as needed up to 4 times per day for pain relief. diltiazem (CARDIZEM CD) 240 mg, Daily furosemide (LASIX) 80 mg, Oral, Daily levothyroxine (SYNTHROID, LEVOTHROID) 50 mcg, Daily methocarbamoL (ROBAXIN) 500 MG tablet multivitamin with minerals tablet 1 tablet, Daily naloxone (NARCAN) 4 mg/actuation [place] Administer 1 spray into one nostril for known or suspected opioid overdose. If patient worsens or does not respond, may repeat in 2-3 minutes. polyethylene glycol (MIRALAX) 17 g, Daily propafenone (RYTHMOL) 150 mg, Oral, 2 times daily rosuvastatin (CRESTOR) 5 mg, Oral, Nightly traMADol (ULTRAM) 50 mg, 2 times daily PRN Social History Social History Socioeconomic History Marital status: Tobacco Use Smoking status: Never Passive exposure: Never Smokeless tobacco: Never Vaping Use Vaping status: Never Used Substance and Sexual Activity Alcohol use: Yes Comment: a glass of wine evry couple [facility] Drug use: No Social Drivers of Health Financial Resource Strain: Unknown (11/19/2020) Overall Financial Resource Strain (CARDIA) Difficulty of Paying Living Expenses: Patient declined Food Insecurity: Unknown (11/19/2020) Hunger Vital Sign Worried About Running Out of Food in the Last Year: Patient declined Ran Out of Food in the Last Year: Patient declined Transportation Needs: Unknown (11/19/2020) PRAPARE - Transportation Lack of Transportation (Medical): Patient declined Lack of Transportation (Non-Medical): Patient declined Physical Activity: Insufficiently Active (11/19/2020) Exercise Vital Sign Days of Exercise per Week: 2 days Minutes of Exercise per Session: 20 min Stress: No Stress Concern Present (11/19/2020) [employer] - Occupational Stress Questionnaire Feeling of Stress : Only a little . Family History family history includes Brain cancer (age of onset: 60) in her sister; Cancer in her son; Cervical cancer in her daughter; Colon cancer in her sister; Colon cancer (age of onset: 70) in her sister; Coronary artery disease in her brother; Heart attack in her brother; Mitral valve prolapse in her sister; Multiple myeloma in her daughter; Other in her brother and son; Pancreatic cancer in her mother; Pneumonia in her son; Stroke in her brother and father; Throat cancer in her brother; Uterine cancer in her sister. Physical Exam PACU Vitals 10/30/24 1055 BP: 127/86 Pulse: 86 Resp: 16 SpO2: 97% General: No acute distress, atraumatic Cardiovascular: normal rate, no edema Respiratory: non-labored respirations Psychiatric: appropriate mood and affect Cervical Spine Exam: Cervical Spine ROM decreased in extension left rotation right rotation Cervical paraspinal tenderness noted bilaterally Muscle Strength Neck Flexion --> 4+ Neck Extension --> 4+ Right Left 4+ Shoulder Abduction (Deltoid) 4+ 4+ Elbow Flexion (Biceps) 4+ 4+ Elbow Extension (Triceps) 4+ 5 Finger Abduction (Interossei) 5 4+ Hip Flexion (Iliopsoas) 4+ 5 Knee Extension (Quads) 5 5 Knee Flexion (Hamstrings) 5 5 Dorsiflexion (Anterior Tibialis) 5 Hyman negative bilaterally Sensation remains intact to bilateral arms and legs to light touch. Other Tests Imaging All imaging and tests below were personally reviewed by me unless otherwise indicated. MRI cervical spine 04/09/24: FINDINGS: Normal alignment. There are severe degenerative changes at C1-2 at the atlantoaxial junction. Thereis reactive bone marrow edema in the odontoid process and anterior arch of C1. There is no spinal stenosis at this level. C2-3, moderate degenerative disc disease. No spinal stenosis. Mild facet arthropathy. No foraminal narrowing. C3-4, there is osseous fusion across the facet joints. Mild degenerative disc disease. No spinal stenosis. No foraminal narrowing. C4-5, severe facet arthropathy on the right. Mild facet arthropathy on the left. No spinal canal stenosis. No significant foraminal narrowing. C5-6, severe degenerative disc disease. An endplate osteophyte complex and ligamentum flavum thickening result in moderate spinal canal stenosis. There is moderate foraminal narrowing bilaterally. C6-7, severe degenerative disc disease. Endplate osteophyte complex results in mild spinal stenosis. Moderate bilateral foraminal narrowing. C7-T1, mild degenerative disc disease. No spinal stenosis. Mild foraminal narrowing. No spinal cord compression. No abnormal signal in the cervical spinal cord. No paraspinal mass. IMPRESSION: 1. Severe degenerative changes at the C1-2 level at the atlantoaxial junction with reactive bone marrow edema in the odontoid process and anterior arch of C1. 2. At C5-6, there is severe degenerative disc disease. An endplate osteophyte complex and ligamentous thickening results in moderate spinal canal stenosis. There is moderate bilateral foraminal narrowing. 3. Severe degenerative disc disease at C6-7. There is mild spinal stenosis and moderate bilateral foraminal narrowing. 4. No abnormal signal in the cervical spinal cord. XR cervical spine 11/16/23: FINDINGS: Three views of the cervical spine. No acute fracture. C7-T1 articulation is intact. Exaggerated cervical lordotic curvature. 3 mm of anterolisthesis C4 relative to C5 on flexion views. No listhesis on extension views. Vertebral body heights are normal.Moderate loss of disc space at C5-6 and C6-7 with anterior endplate osteophytes and uncovertebral hypertrophy. No prevertebral soft tissue swelling. IMPRESSION: Anterolisthesis of C4 relative to C5 on flexion views. No definite acute fracture visualized. Consider CT scan and or MRI if there is recent trauma. XR lumbar spine 07/11/24: FINDINGS: Anatomy: 5 [id number] lumbar segments. Increased lumbar levoconvex curvature measuring 14 degrees. Bones: No acute fracture or dislocation. Slightly progressed mild to moderate T12 compression deformity. New since 2019 although more chronic appearing mild to moderate L3 and L4 compression deformities. No significant retropulsion. No suspicious lytic or sclerotic lesion. Moderate 2 severe L3-S1 facet hypertrophy. Degenerative grade 1 retrolisthesis of L1 on L2 and L2 on 3. Additional degenerative grade 1 retrolisthesis of L3 on L4 and anterolisthesis of L4 on L5, the former of which resolves on flexion (L3-L4 retrolisthesis). Moderate disc and endplate degeneration throughout the thoracic levels. Other: Cholecystectomy. Right total hip arthroplasty. IMPRESSION: 1. Overall moderate to severe lumbar spondylosis with suggested instability at the L3-L4 level. 2. New since 2019 although chronic appearing mild to moderate L3 and L4 compression fractures; remote T12 compression deformity slightly progressed as well. Thank you for your kind referral. Please do not hesitate to contact me with any questions. Jose A Ornelas CNP Interventional Pain Management [facility] [place] viki [place] This note was generated using [employer] voice recognition software in an effort to expedite communication. Please excuse any resultant grammatical or wording errors. * Kristel Rodriguez MA - 10/30/2024 10:59 AM EST Reason for Visit: Follow-up Pain location: neck and she is having headaches, shoulders Current pain Level: 6 Worst pain Level: 8 Pain description: aching and steady Radiation: Yes Sensory changes: No Motor changes: Yes Duration of pain: >6 months Increases pain: evening reaching up and running the sweeper and washing dishes Decreases pain: medications Patient's Goals: decrease pain, decrease pain with activity, improve ability to perform activities of daily living, improve quality of life, improve sleep, stand longer, and walk further Acceptable level of pain: 3 Additional concerns: none Focused Review of Systems: Loss of bladder control: Denies Loss of bowel control: Denies Saddle anesthesia: Denies Recent falls: Denies Constipation: Yes but from medication documented in this [id number] Telephone encounter Note* Telephone Encounter - Shirley Perez MA - 10/18/2024 2:53 PM EST Received refill request electronically via [employer]. Pt last seen 08/04/2023, F/u in 9 months, patient has office visit 12/12/24. Refilled Rosuvastatin 5mg Daily #90 with 3 refills. Rx sent to [facility]. [id number] Miscellaneous Notes* Telephone Encounter - Shirley Perez MA - 10/18/2024 2:53 PM EST Received refill request electronically via [employer]. Pt last seen 08/04/2023, F/u in 9 months, patient has office visit 12/12/24. Refilled Rosuvastatin 5mg Daily #90 with 3 refills. Rx sent to [facility]. documented in this [id number] Note10/08/24 Alma Boothe [place] 1940 Chief Complaint Patient presents with - Injections HISTORY of Present Illness: Alma Echeverria is a 83 y.o. year old female that presents today with Injections . Alma Echeverria has had injections in the past. Last injection to left shoulder and left hip was 06/01/24 and they tolerated well. They have been treated w/ oral medications & injections. Patient denies new injury to the shoulder or the hip. The following portions of the patient's history were reviewed and updated as appropriate: allergies, current medications, past surgical history and problem list PAST MEDICAL HISTORY The patient's Medications, Allergies, Past Surgical History, Medical History, Family History and Social History were reviewed and can be found in their online medical record, and I have reviewed this information with Alma Echeverria at the time of their visit. They are significant for Past Medical History: Diagnosis Date - Abdominal pain - Anemia - Arm numbness - Arm weakness - Arthritis - Atrial fibrillation (HCC) - Hanley esophagus - Cataract - Endometrial cancer (HCC) 1970 uterine ca - Frequent UTI - History of blood transfusion - HLD (hyperlipidemia) - Hypertension - Leg numbness - Leg weakness - Liver cirrhosis secondary to nonalcoholic steatohepatitis (MATTHEW) (HCC) - Sleep apnea, obstructive NO CPAP - DUE TO WEIGHT LOSS - Squamous cell skin cancer - Tongue irritation - Uterine mass Reportedly benign IMAGING Notes: none new today. Reviewed from last visit. IMPRESSION And PLAN: Cortisone injection today. Will follow up in 3 months if effective. Call if no improvement in 10 days. 1. Primary osteoarthritis of left shoulder 2. Rotator cuff disorder, left 3. Trochanteric bursitis of left hip LG Jt Injection/Arthrocentesis: L glenohumeral Performed by: Christine Voss CNP Authorized by: Christine Voss CNP CPT 96929 - Large Joint Arthrocentesis: Consent given by: Patient Time out: Immediately prior to the procedure a time out was called Physician or proceduralist has discussed critical or nonroutine steps, procedure duration and anticipated blood loss: Yes Supporting Documentation: Indications: Pain and diagnostic evaluation Procedure Details: Location: Shoulder Site: L glenohumeral Prep: patient was prepped and draped in usual sterile fashion Needle size: 22 G Approach: Posterior Medications: 40 mg triamcinolone acetonide 40 mg/mL Anesthetic used: Lidocaine 1% Anesthetic amount (mL): 2 Patient tolerance: Patient tolerated the procedure well with no immediate complications LG Jt Injection/Arthrocentesis: L greater trochanteric bursa Performed by: Christine Voss CNP Authorized by: Christine Voss CNP CPT 94284 - Large Joint Arthrocentesis: Consent given by: Patient Time out: Immediately prior to the procedure a time out was called Physician or proceduralist has discussed critical or nonroutine steps, procedure duration and anticipated blood loss: Yes Supporting Documentation: Indications: Diagnostic evaluation and pain Procedure Details: Location: Hip Site: L greater trochanteric bursa Prep: patient was prepped and draped in usual sterile fashion Needle size: 22 G Medications: 40 mg triamcinolone acetonide 40 mg/mL Anesthetic used: Lidocaine 1% Anesthetic amount (mL): 2 Patient tolerance: Patient tolerated the procedure well with no immediate complications Christine Voss CNP AUTHENTICATED BY CHRISTINE VOSS, ON 10/08/2024 15:05:[address] [place], [place] [id number] History of Present illness Narrative* Christine Voss CNP - 10/08/2024 3:02 PM ESTAssociated Order(s): LG Jt Injection/Arthrocentesis: L glenohumeral; LG Jt Injection/Arthrocentesis: L greater trochanteric bursa Post-Procedure Diagnose(s): Trochanteric bursitis of left hip; Primary osteoarthritis of left shoulder 10/08/24 Alma Echeverria 1940 Chief Complaint Patient presents with Injections HISTORY of Present Illness: Alma Echeverria is a 83 y.o. year old female that presents today with Injections . Alma Echeverria has had injections in the past. Last injection to left shoulder and left hip was06/01/24 and they tolerated well. They have been treated w/ oral medications & injections. Patient denies new injury to the shoulder or the hip. The following portions of the patient's history were reviewed and updated as appropriate: allergies, current medications, past surgical history and problem list PAST MEDICAL HISTORY The patient's Medications, Allergies, Past Surgical History, Medical History, Family History and Social History were reviewed and can be found in their online medical record, and I have reviewed thisinformation with Alma Echeverria at the time of their visit. They are significant for Past Medical History: Diagnosis Date Abdominal pain Anemia Arm numbness Arm weakness Arthritis Atrial fibrillation (HCC) Hanley esophagus Cataract Endometrial cancer (HCC) 1970 uterine ca Frequent UTI History of blood transfusion HLD (hyperlipidemia) Hypertension Leg numbness Leg weakness Liver cirrhosis secondary to nonalcoholic steatohepatitis (MATTHEW) (HCC) Sleep apnea, obstructive NO CPAP - DUE TO WEIGHT LOSS Squamous cell skin cancer Tongue irritation Uterine mass Reportedly benign IMAGING Notes: none new today. Reviewed from last visit. IMPRESSION And PLAN: Cortisone injection today. Will follow up in 3 months if effective. Call if no improvement in 10 days. 1. Primary osteoarthritis of left shoulder 2. Rotator cuff disorder, left 3. Trochanteric bursitis of left hip LG Jt Injection/Arthrocentesis: L glenohumeral Performed by: Christine Voss CNP Authorized by: Christine Voss CNP CPT 54614 - Large Joint Arthrocentesis: Consent given by: Patient Time out: Immediately prior to the procedure a time out was called Physician or proceduralist has discussed critical or nonroutine steps, procedure duration and anticipated blood loss: Yes Supporting Documentation: Indications: Pain and diagnostic evaluation Procedure Details: Location: Shoulder Site: L glenohumeral Prep: patient was prepped and draped in usual sterile fashion Needle size: 22 G Approach: Posterior Medications: 40 mg triamcinolone acetonide 40 mg/mL Anesthetic used: Lidocaine 1% Anesthetic amount (mL): 2 Patient tolerance: Patient tolerated the procedure well with no immediate complications LG Jt Injection/Arthrocentesis: L greater trochanteric bursa Performed by: Christine Voss CNP Authorized by: Christine Voss CNP CPT 15653 - Large Joint Arthrocentesis: Consent given by: Patient Time out: Immediately prior to the procedure a time out was called Physician or proceduralist has discussed critical or nonroutine steps, procedure duration and anticipated blood loss: Yes Supporting Documentation: Indications: Diagnostic evaluation and pain Procedure Details: Location: Hip Site: L greater trochanteric bursa Prep: patient was prepped and draped in usual sterile fashion Needle size: 22 G Medications: 40 mg triamcinolone acetonide 40 mg/mL Anesthetic used: Lidocaine 1% Anesthetic amount (mL): 2 Patient tolerance: Patient tolerated the procedure well with no immediate complications Christine Voss CNP documented in this [id number] History of Present illness Narrative* Sancho Woodruff MD - 08/13/2024 2:20 PM EST Subjective Patient ID: Alma Echeverria is a 83 y.o. female who presents for Follow-up (3 mo CS). HPI CSA appointment. I have personally reviewed the OARRS report for the above patient. This report is scanned into the electronic medical record. I have considered the risks of abuse, dependence, addiction, and diversion. I believe that it is clinically appropriate for the above patient to be prescribed this medication. Ddd lumbar. Typically4/d. More recently about <5 weeks ago has had some constipation and had malodorus gianni , black and some brbpr.Clearing up after 5 days. Colon was in June 2022 EGD in January 2023 Energy level is down. Has lost 20# in last 6months. Will get labs at this time to see if she is developed an anemia Review of Systems Significant unexplained weight loss. Factors contributing be that her has passed and she iseating differently or some occult issue Objective BP 128/80 Pulse 107 Ht 1.473 m (4' 10) Wt 61.2 kg (135 lb) SpO2 96% BMI 28.22 kg/m Physical Exam Heart is regular. Lungs are clear. No edema in extremities. Abdomen is soft no solid or pulsatile masses. Assessment/Plan Problem List Items Addressed This Visit ICD-10-CM DDD (degenerative disc disease), lumbosacral - Primary M51.379 Relevant Orders Follow Up In Primary Care Lumbar stenosis with neurogenic claudication M48.062 Relevant Orders Follow Up In Primary Care Sacral fracture (Multi) S32.10XA Anemia D64.9 Relevant Orders CBC Comprehensive Metabolic Panel Follow Up In Primary Care Other Visit Diagnoses Codes Unexplained weight loss R63.4 documented [facility] Work Phone: 1(406) 198-912610-02-2024 [facility] Note Patient Name: Alma Echeverria Referring Physician: No ref. provider found Date of : 1940 PCP: Sancho Woodruff MD Date of Service: 07/11/24 Assessment & Plan Assessment: Cervical radiculopathy Cervical degenerative disc disease Cervical spondylosis Cervical spinal stenosis Chronic compression fractures, T12, L3, L4 Chronic pain syndrome Narrative: She presents today with chronic neck pain with intermittent radiation into bilateral shoulders and head. I suspect this secondary to combination of cervical radiculopathy, cervical degenerative disease and cervical spondylosis. X-ray of the cervical spine reviewed and shows cervical spondylosis and cervical degenerative disc disease. MRI of the cervical spine reviewed and shows severe degenerative changes throughout the cervical spine although this is most notable at C1-C2, C5-C6 and C6-C7. There are also varying degrees of foraminal stenosis and moderate canal stenosis at C5-C6 and C6/C7. We will schedule an epidural steroid injection at C7-T1 to treat her cervical radicular symptoms. GIL was ordered last visit on 05/11/24. She has not heard from our office regarding her injection. It appears he may still be waiting on the medication home. She did hold her Eliquis on her own as she thought she was getting a procedure today. 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 She will get specific instructions from our office on when to stop and start the medication. She should not do this on her own. She is to restart Eliquis immediately. She endorses adequate relief on her current medication regimen. She denies any side effects this time. I agree with continuing tramadol 50 mg 3 times daily to treat her chronic pain. Plan: Medications: Continue Tramadol 50 mg QID prn; Continue Volatern 1% gel prn Follow-up: Return in about 3 months (around 10/11/2024) for Follow-up. Compliance Pain Contract Signed: 02/22/24 OARRS/NARxCheck: 07/11/24 Drug Screen/Pill Count History: UDS 05/11/24: appropriate. + alcohol. She understands she cannot mix alcohol and chronic opioids as this can increase her risk of sedation, overdose and . Narcan offered/ordered: 07/11/24 Opioid Risk Tool (ORT): Gender Male or Female: F (07/11/2024 10:00 AM) Family History of Substance Abuse (Alcohol): 1 (07/11/2024 10:00 AM) Family History of Substance Abuse (Illegal Drugs): 0 (07/11/2024 10:00 AM) Family History of Substance Abuse (Prescription Drugs): 0 (07/11/2024 10:00 AM) Personal History of Substance Abuse (Alcohol): 0 (07/11/2024 10:00 AM) Personal History of Substance Abuse (Illegal Drugs): 0 (07/11/2024 10:00 AM) Personal History of Substance Abuse (Prescription Drugs): 0 (07/11/2024 10:00 AM) History of Preadolescent Sexual Abuse: 0 (07/11/2024 10:00 AM) Psychological Disease: 0 (07/11/2024 10:00 AM) Psychological Disease (Depression): 0 (07/11/2024 10:00 AM) Total : 1 (07/11/2024 10:00 AM) Total Score Risk Category: Low Risk (0-3) (07/11/2024 10:00 AM) Oswestry Disability Index (MARYLU): Oswestry Low Back Disability Index My BACK PAIN at the moment is: 2 (07/11/2024 10:00 AM) Personal care: 0 (07/11/2024 10:00 AM) Lifitn (07/11/2024 10:00 AM) Walkin (07/11/2024 10:00 AM) Sittin (07/11/2024 10:00 AM) Standin (07/11/2024 10:00 AM) Sleepin (07/11/2024 10:00 AM) Sex Life: 4 (07/11/2024 10:00 AM) Social Life: 1 (07/11/2024 10:00 AM) Travelin (07/11/2024 10:00 AM) Oswestry Score: 18 (07/11/2024 10:00 AM) Current Opioid Misuse Measure (COMM): If chronic opioids were prescribed, the risk of chronic opioid therapy includes, but not limited constipation, nausea, vomiting, hormonal changes, osteoporosis, developing a tolerance, dependence or addiction to the medication and the possibility of overdose and . Prior to initiating chronic opioid therapy, patient failed many non-opioid therapies including PT, injections/pain procedures, NSAIDs, Tylenol, muscle relaxers and nerve medications. The goal of opioid therapy is to reduce their chronic pain and improve their functional capacity and quality of life. The lowest effective dose will be utilized for the shortest duration possible. Weaning of opioids will always be considered whenever possible. The patient can NOT mix opioids with other sedating medications or substances including marijuana, benzodiazepines, muscle relaxers, nerve medication and alcohol. The patient can only take medication as prescribed. The patient can NOT sell, share or give away their medication. The patient must lock their medication in a safe location away from children and other family members. If patient has a history of sleep apnea or COPD, they are at increased risk of respiratory depression, ove (more content not included)...[facility] 06-01-2024 History of Present illness Narrative* Sujata Bradford CNP - 06/01/2024 11:15 AM EDT 05/29/24 Alma Echeverria 1940 No chief complaint on file. HISTORY of Present Illness: Alma Echeverria is a 83 y.o. year old female that presents today with No chief complaint on file. . Alma Echeverria has had injections in the past. Last injection to left shoulder was in October and right hip bursa was in December 2022. and they tolerated well. They have been treated w/ oral medications & injections. Patient denies new injury to the shoulders. The following portions of the patient's history were reviewed and updated as appropriate: allergies, current medications, past surgical history and problem list Assessment No documentation. Referred By: No ref. provider found PAST MEDICAL HISTORY The patient's Medications, Allergies, Past Surgical History, Medical History, Family History and Social History were reviewed and can be found in their online medical record, and I have reviewed thisinformation with Alma Echeverria at the time of their visit. They are significant for Past Medical History: Diagnosis Date Abdominal pain Anemia Arm numbness Arm weakness Arthritis Atrial fibrillation (HCC) Hanley esophagus Cataract Endometrial cancer (HCC) 1969 uterine ca Frequent UTI History of blood transfusion HLD (hyperlipidemia) Hypertension Leg numbness Leg weakness Liver cirrhosis secondary to nonalcoholic steatohepatitis (MATTHEW) (HCC) Sleep apnea, obstructive NO CPAP - DUE TO WEIGHT LOSS Squamous cell skin cancer Tongue irritation Uterine mass Reportedly benign PHYSICAL EXAM Ortho Exam Additional Notes: IMAGING Notes: none new today. Reviewed from last visit. IMPRESSION And PLAN: Cortisone injection today. Will follow up in 3 months if effective. Call if no improvement in 10 days. No diagnosis found. Sujata Bradford CNP * Sujata Bradford CNP - 06/01/2024 11:15 AM EDTAssociated Order(s): LG Jt Injection/Arthrocentesis: L subacromial bursa Post-Procedure Diagnose(s): Primary osteoarthritis of left shoulder LG Jt Injection/Arthrocentesis: L subacromial bursa Performed by: Sujata Bradford CNP Authorized by: Sujata Bradford CNP CPT 46884 - Large Joint Arthrocentesis: Consent given by: Patient Time out: Immediately prior to the procedure a time out was called Physician or proceduralist has discussed critical or nonroutine steps, procedure duration and anticipated blood loss: Yes Supporting Documentation: Indications: Pain Procedure Details: Location: Shoulder Site: L subacromial bursa Prep: patient was prepped and draped in usual sterile fashion Needle size: 22 G Approach: Posterior Medications: 1 mL dexAMETHasone 4 mg/mL, 1 mL triamcinolone acetonide 40 mg/mL Anesthetic used: Bupivacaine 0.25% Anesthetic amount (mL): 3 Patient tolerance: Patient tolerated the procedure well with no immediate complications * Sujata Bradford CNP - 06/01/2024 11:15 AM EDTAssociated Order(s): LG Jt Injection/Arthrocentesis: L greater trochanteric bursa Post-Procedure Diagnose(s): Trochanteric bursitis of left hip LG Jt Injection/Arthrocentesis: L greater trochanteric bursa Performed by: Sujata Bradford CNP Authorized by: Sujata Bradford CNP CPT 73400 - Large Joint Arthrocentesis: Consent given by: Patient Time out: Immediately prior to the procedure a time out was called Physician or proceduralist has discussed critical or nonroutine steps, procedure duration and anticipated blood loss: Yes Supporting Documentation: Indications: Pain Procedure Details: Location: Hip Site: L greater trochanteric bursa Prep: patient was prepped and draped in usual sterile fashion Needle size: 22 G Approach: Lateral Medications: 1 mL dexAMETHasone 4 mg/mL, 1 mL triamcinolone acetonide 40 mg/mL Anesthetic used: Bupivacaine 0.5% and Bupivacaine 0.25% Anesthetic amount (mL): 1 Patient tolerance: Patient tolerated the procedure well with no immediate complications documented in this [id number] History of Present illness Narrative* Jaylan Benavides DO - 05/11/2024 12:04 PM EDT [facility] Interventional Pain Management Office Note Patient Name: Alma Echeverria Referring Physician: No ref. provider found Date of : 1940 PCP: Sancho Woodruff MD Date of Service: 05/11/24 Assessment & Plan Assessment: Cervical radiculopathy Cervical degenerative disc disease Cervical spondylosis Cervical spinal stenosis Chronic pain syndrome Narrative: She presents today with chronic neck pain with intermittent radiation into bilateral shoulders and head. I suspect this secondary to combination of cervical radiculopathy, cervical degenerative disease and cervical spondylosis. X-ray of the cervical spine reviewed and shows cervical spondylosis and cervical degenerative disc disease. MRI of the cervical spine reviewed and shows severe degenerative changes throughout the cervical spine although this is most notable at C1-C2, C5-C6 and C6-C7. There are also varying degrees of foraminal stenosis and moderate canal stenosis at C5-C6 and C6/C7. We will schedule an epidural steroid injection at C7-T1 to treat her cervical radicular symptoms. She endorses adequate relief on her current medication regimen. She denies any side effects this time. I agree with continuing tramadol 50 mg 3 times daily to treat her chronic pain. Plan: Medications: Continue Tramadol 50 mg QID prn; Continue Volatern 1% gel prn; Medrol Dosepak Follow-up: Return in about 3 months (around 08/11/2024) for Follow-up. Compliance OARRS/NARxCheck: No data recorded Narcan Rx Ordered: 05/11/24 Opioid Risk Tool: If chronic opioids were prescribed at today's visit, the risk of chronic opioid therapy was discussed with patient including, but not limited to developing a tolerance, dependence, addiction or the possibility of overdose and even . The patient was instructed not to mix opioids with other sedating medications or substances including benzodiazepines and alcohol. The patient was instructed to only take medication as prescribed. The patient was instructed not to sell or share medication. The patient was also instructed to lock their medication in a safe location. The goal of opioid therapy is to improve their pain significantly and allow them to more easily perform their ADLs. The goal ofmaintaining opioid at the lowest effective dose was discussed. All questions were answered. Narcan education was provided and narcan prescription ordered upon initiation of chronic opioid therapy andwill offered annually or sooner if patient requests. If procedure was scheduled at today's, the risks of the procedure including, but not limited to, worsening pain, bleeding, infection and nerve injury and headache was discussed with the patient. The benefits of the procedure were also explained which included reductions of pain and improvement in functional status. The patient voiced understanding of the risks and benefits and wishes to proceed with the above procedure. History of Present Illness / Review of Systems Reason for Visit: Follow-up Pain location: mid back and low back, neck Current pain Level: 6 Best pain Level: 6 Worst pain Level: 10 Pain description: sharp, burning, and aching Radiation: none Sensory changes: right arm numbness Motor changes: Yes Duration of pain: >6 months Increases pain: everything Decreases pain: medications Patient's Goals: decrease pain, decrease pain with activity, improve ability to perform activities of daily living, improve quality of life, improve sleep, stand longer, and walk further Acceptable level of pain: 5 Additional concerns: none Focused Review of Systems: Loss of bladder control: Denies Loss of bowel control: Denies Saddle anesthesia: Denies Recent falls: Denies Constipation: Denies Past Medical History Past Medical History: Diagnosis Date Abdominal pain Anemia Arm numbness Arm weakness Arthritis Atrial fibrillation (HCC) Hanley esophagus Cataract Endometrial cancer (HCC) 1970 uterine ca Frequent UTI History of blood transfusion HLD (hyperlipidemia) Hypertension Leg numbness Leg weakness Liver cirrhosis secondary to nonalcoholic steatohepatitis (MATTHEW) (HCC) Sleep apnea, obstructive NO CPAP - DUE TO WEIGHT LOSS Squamous cell skin cancer Tongue irritation Uterine mass Reportedly benign Past Surgical History Past Surgical History: Procedure Laterality Date APPENDECTOMY ARTHROPLASTY SHOULDER REVERSE Right 11/29/2019 Procedure: Reverse right total shoulder replacement; Surgeon: Dada Hathaway MD; Location: Main OR; Service: Orthopedic CATARACTS Bilateral CHOLECYSTECTOMY CT COLONOSCOPY 11/18/[address] COLONOSCOPY 05/08/2019 CT COLONOSCOPY EXPLORATORY LAPAROTOMY N/A 07/29/2016 Procedure: EXPLORATORY LAPAROTOMY LYSIS OF ADHESION ; Surgeon: Smooth Sarabia MD; Location: [facility] Main OR; Service: FOOT FUSION Left HYSTERECTOMY LAMINECTOMY DECOMPRESSION LUMBAR WITH FUSION NAVIGATIONAL 1 LEVEL Right 05/19/2023 Procedure: Right Sacral 2- Iliac Fixation and Fusion with Sacroplasty; Surgeon: Bridger Monique MD; Location: Main OR; Service: Neurological OOPHORECTOMY RADIATION uterine ca TONSILLECTOMY TOTAL HIP ARTHROPLASTY Right TOTAL KNEE ARTHROPLASTY Bilateral TUMOR EXCISION NEAR OVARIES VEIN LIGATION Left LEG Allergies Allergies: Codeine, Cyclobenzaprine, Ibuprofen, Latex, Lisinopril-hydrochlorothiazide, Nsaids (non-steroidal anti-inflammatory drug), Nylon, and Adhesive tape-silicones Medications Current Outpatient Medications Medication Instructions Amitiza 8 mcg, Oral, 2 times daily with meals apixaban (Eliquis) 5 mg Tab One bid aspirin-calcium carbonate 81 mg-300 mg calcium(777 mg) Tab Oral, Every 24 hours cholecalciferol (vitamin D3) 1,000 Units, Oral, Daily, PM dexlansoprazole (DEXILANT) 30 mg, Oral, Daily, AM diclofenac sodium 1% (VOLTAREN) 1 % Gel Topical, 4 times daily PRN, Apply to cervical neck and shoulders as needed up to 4 times per day for pain relief. diltiazem (CARDIZEM CD) 240 mg, Oral, Daily, AM estradioL (VAGIFEM) 10 mcg Tab Vaginal furosemide (LASIX) 80 mg, Oral, Daily levothyroxine (SYNTHROID, LEVOTHROID) 50 mcg, Oral, Daily, AM methocarbamoL (ROBAXIN) 500 mg, Oral, 4 times daily PRN multivitamin with minerals tablet 1 tablet, Oral, Daily, PM polyethylene glycol (MIRALAX) 17 g, Oral, Daily, AM propafenone (RYTHMOL) 150 mg, Oral, 2 times daily rosuvastatin (CRESTOR) 5 mg, Oral, Nightly traMADol (ULTRAM) 50 mg, Oral, 2 times daily PRN Social History Social History Socioeconomic History Marital status: Tobacco Use Smoking status: Never Passive exposure: Never Smokeless tobacco: Never Vaping Use Vaping status: Never Used Substance and Sexual Activity Alcohol use: Yes Comment: a glass of wine evry couple [facility] Drug use: No Social Determinants of Health Financial Resource Strain: Unknown (11/19/2020) Overall Financial Resource Strain (CARDIA) Difficulty of Paying Living Expenses: Patient declined Food Insecurity: Unknown (11/19/2020) Hunger Vital Sign Worried About Running Out of Food in the Last Year: Patient declined Ran Out of Food in the Last Year: Patient declined Transportation Needs: Unknown (11/19/2020) PRAPARE - Transportation Lack of Transportation (Medical): Patient declined Lack of Transportation (Non-Medical): Patient declined Physical Activity: Insufficiently Active (11/19/2020) Exercise Vital Sign Days of Exercise per Week: 2 days Minutes of Exercise per Session: 20 min Stress: No Stress Concern Present (11/19/2020) [employer] - Occupational Stress Questionnaire Feeling of Stress : Only a little . Family History family history includes Brain cancer (age of onset: 60) in her sister; Cancer in her son; Cervical cancer in her daughter; Colon cancer in her sister; Colon cancer (age of onset: 70) in her sister; Coronary artery disease in her brother; Heart attack in her brother; Mitral valve prolapse in her sister; Multiple myeloma in her daughter; Other in her brother and son; Pancreatic cancer in her mother; Pneumonia in her son; Stroke in her brother and father; Throat cancer in her brother; Uterine cancer in her sister. Physical Exam PACU Vitals 05/11/24 1141 BP: 124/78 Pulse: 81 SpO2: 94% General: No acute distress, atraumatic Cardiovascular: normal rate, no edema Respiratory: non-labored respirations Psychiatric: appropriate mood and affect Cervical Spine Exam: Cervical Spine ROM decreased in extension left rotation right rotation Cervical paraspinal tenderness noted bilaterally Strength: RUE: Deltoid 5/5 Elbow Flex 5/5 Elbow Ext 5/5 Wrist Flex 5/5 Wrist Ext 5/5 Direct Support Worker 5/5 LUE: Deltoid 5/5 Elbow Flex 5/5 Elbow Ext 5/5 Wrist Flex 5/5 Wrist Ext 5/5 Direct Support Worker 5/5 Hyman negative bilaterally Other Tests Imaging All imaging and tests below were personally reviewed by me unless otherwise indicated. MRI cervical spine 04/09/24: FINDINGS: Normal alignment. There are severe degenerative changes at C1-2 at the atlantoaxial junction. Thereis reactive bone marrow edema in the odontoid process and anterior arch of C1. There is no spinal stenosis at this level. C2-3, moderate degenerative disc disease. No spinal stenosis. Mild facet arthropathy. No foraminal narrowing. C3-4, there is osseous fusion across the facet joints. Mild degenerative disc disease. No spinal stenosis. No foraminal narrowing. C4-5, severe facet arthropathy on the right. Mild facet arthropathy on the left. No spinal canal stenosis. No significant foraminal narrowing. C5-6, severe degenerative disc disease. An endplate osteophyte complex and ligamentum flavum thickening result in moderate spinal canal stenosis. There is moderate foraminal narrowing bilaterally. C6-7, severe degenerative disc disease. Endplate osteophyte complex results in mild spinal stenosis. Moderate bilateral foraminal narrowing. C7-T1, mild degenerative disc disease. No spinal stenosis. Mild foraminal narrowing. No spinal cord compression. No abnormal signal in the cervical spinal cord. No paraspinal mass. IMPRESSION: 1. Severe degenerative changes at the C1-2 level at the atlantoaxial junction with reactive bone marrow edema in the odontoid process and anterior arch of C1. 2. At C5-6, there is severe degenerative disc disease. An endplate osteophyte complex and ligamentous thickening results in moderate spinal canal stenosis. There is moderate bilateral foraminal narrowing. 3. Severe degenerative disc disease at C6-7. There is mild spinal stenosis and moderate bilateral foraminal narrowing. 4. No abnormal signal in the cervical spinal cord. XR lumbar spine 11/16/23: FINDINGS: Three views of the cervical spine. No acute fracture. C7-T1 articulation is intact. Exaggerated cervical lordotic curvature. 3 mm of anterolisthesis C4 relative to C5 on flexion views. No listhesis on extension views. Vertebral body heights are normal.Moderate loss of disc space at C5-6 and C6-7 with anterior endplate osteophytes and uncovertebral hypertrophy. No prevertebral soft tissue swelling. IMPRESSION: Anterolisthesis of C4 relative to C5 on flexion views. No definite acute fracture visualized. Consider CT scan and or MRI if there is recent trauma. Thank you for your kind referral. Please do not hesitate to contact me with any questions. Jaylan Benavides D.O. Interventional Pain Management [facility] [place] This note was generated using [employer] voice recognition software in an effort to expedite communication. Please excuse any resultant grammatical or wording errors. * Destiney Pan MA - 05/11/2024 11:43 AM EDT Reason for Visit: Follow-up Pain location: mid back and low back, neck Current pain Level: 6 Best pain Level: 6 Worst pain Level: 10 Pain description: sharp, burning, and aching Radiation: none Sensory changes: right arm numbness Motor changes: Yes Duration of pain: >6 months Increases pain: everything Decreases pain: medications Patient's Goals: decrease pain, decrease pain with activity, improve ability to perform activities of daily living, improve quality of life, improve sleep, stand longer, and walk further Acceptable level of pain: 5 Additional concerns: none Focused Review of Systems: Loss of bladder control: Denies Loss of bowel control: Denies Saddle anesthesia: Denies Recent falls: Denies Constipation: Denies documented in this [id number] Telephone encounter Note* Telephone Encounter - Joanne Quan CMA - 04/19/2024 10:10 AM EDT Received refill request for propafenone (RYTHMOL) 150 MG tablet . Pt's last OV was 07/2023. Follow up is due 04/2024. Scheduled for 05/2024 [id number] Miscellaneous Notes* Telephone Encounter - Joanne Quan CMA - 04/19/2024 10:10 AM EDT Received refill request for propafenone (RYTHMOL) 150 MG tablet . Pt's last OV was 07/2023. Follow up is due 04/2024. Scheduled for 05/2024 documented in this [id number] History of Present illness Narrative* Sancho Woodruff MD - 04/16/2024 2:40 PM EDT Subjective Patient ID: Alma Echeverria is a 83 y.o. female who presents for Follow-up (3 mo CS). HPI Has typically taken 2 tramaddol and with flare is up to 6/d for last 3 days. Pain and spasm on right side at end of floating rib per chiropractor. spams awakening at night. RBA of spasmolytics and elderly reviewed Review of Systems I have personally reviewed the OARRS report for the above patient. This report is scanned into the electronic medical record. I have considered the risks of abuse, dependence, addiction, and diversion. I believe that it is clinically appropriate for the above patient to be prescribed this medication. Is on controlled substances for DDD lumbosacral with insufficiency fracture of the sacrum Objective BP 130/82 Pulse 89 Ht 1.473 m (4' 10) Wt 69.4 kg (153 lb) SpO2 94% BMI 31.98 kg/m Physical Exam Tender T10 paraspinals on the right Assessment/Plan Problem List Items Addressed This Visit ICD-10-CM AF (paroxysmal atrial fibrillation) (Multi) I48.0 DDD (degenerative disc disease), lumbosacral M51.37 Relevant Medications traMADol (Ultram) 50 mg tablet methocarbamol (Robaxin) 500 mg tablet Other Relevant Orders Follow Up In Primary Care - Established Lumbar stenosis with neurogenic claudication M48.062 Relevant Medications traMADol (Ultram) 50 mg tablet methocarbamol (Robaxin) 500 mg tablet Other Relevant Orders Follow Up In Primary Care - Established Sacral fracture (Multi) S32.10XA Relevant Medications traMADol (Ultram) 50 mg tablet Other Relevant Orders Follow Up In Primary Care - Established [facility] Phone: 1(250) 671-756406-03-2024 History of Present illness Narrative* Sancho Woodruff MD - 03/12/2024 9:40 AM EDT Subjective Patient ID: Alma Echeverria is a 83 y.o. female who presents for Knee Pain (left). HPI had bilat tkr about 7 yrs ago and now woth left knee pain for last 2 weeks. nki Husbnd passed 2 weeks ago with aspiration pneumonia, due to parkinsons HCC closed for cirrhosis Review of Systems No systemic symptoms or sign of infection Objective BP 138/80 Pulse 75 Ht 1.473 m (4' 10) Wt 70 kg (154 lb 6.4 oz) SpO2 97% BMI 32.27 kg/m Physical Exam Tender over medial joint line range of motion 0 to 100 degrees Assessment/Plan Problem List Items Addressed This Visit ICD-10-CM Chronic liver disease and cirrhosis (Multi) K74.60, K76.9 Other Visit Diagnoses Codes Acute pain of left knee - Primary M25.562 Relevant Medications predniSONE (Deltasone) 10 mg tablet Other Relevant Orders XR knee left 4+ views documented in this [facility] Work Phone: 1(321) 116-746705-15-2024 History of Present illness Narrative* Jaylan Benavides DO - 02/22/2024 10:41 AM EDT [facility] Interventional Pain Management Office Note Patient Name: Alma Echeverria Referring Physician: Jose A Ornelas CNP Date of : 1940 PCP: Sancho Woodruff MD Date of Service: 02/22/24 Assessment & Plan Assessment: Cervical radiculopathy Cervical degenerative disc disease Cervical spondylosis Chronic pain syndrome Narrative: She presents today with chronic neck pain with intermittent radiation into bilateral shoulders and head. I suspect this secondary to combination of cervical radiculopathy, cervical degenerative disease and cervical spondylosis. X-ray of the cervical spine reviewed and shows cervical spondylosis and cervical degenerative disc disease. We will order an MRI of her cervical spine to further evaluate. I suspect she may benefit from epidural steroid injection. She endorses adequate relief on her current medication regimen. She denies any side effects this time. I agree with continuing tramadol 50 mg 3 times daily to treat her chronic pain. Plan: Medications: Continue Tramadol 50 mg TID prn; Continue Volatern 1% gel prn Follow-up: Return in about 2 months (around 04/23/2024) for Follow-up. Compliance OARRS/NARxCheck: No data recorded Narcan Rx Ordered: n/a Opioid Risk Tool: If chronic opioids were prescribed at today's visit, the risk of chronic opioid therapy was discussed with patient including, but not limited to developing a tolerance, dependence, addiction or the possibility of overdose and even . The patient was instructed not to mix opioids with other sedating medications or substances including benzodiazepines and alcohol. The patient was instructed to only take medication as prescribed. The patient was instructed not to sell or share medication. The patient was also instructed to lock their medication in a safe location. The goal of opioid therapy is to improve their pain significantly and allow them to more easily perform their ADLs. The goal ofmaintaining opioid at the lowest effective dose was discussed. All questions were answered. Narcan education was provided and narcan prescription ordered upon initiation of chronic opioid therapy andwill offered annually or sooner if patient requests. If procedure was scheduled at today's, the risks of the procedure including, but not limited to, worsening pain, bleeding, infection and nerve injury and headache was discussed with the patient. The benefits of the procedure were also explained which included reductions of pain and improvement in functional status. The patient voiced understanding of the risks and benefits and wishes to proceed with the above procedure. History of Present Illness / Review of Systems Reason for Visit: New patient evaluation Pain location: neck Current pain Level: 5 Best pain Level: 5 Worst pain Level: 10 Pain description: aching Radiation: head, shoulders Sensory changes: none Motor changes: No Duration of pain: >6 months Increases pain: ROM of neck Decreases pain: medications Did the pain result from injury? Yes Previous pain procedures: none Patient's Goals: decrease pain, decrease pain with activity, improve ability to perform activities of daily living, improve quality of life, improve sleep, stand longer, and walk further Acceptable level of pain: 3 Additional concerns: none Focused Review of Systems: Loss of bladder control: Denies Loss of bowel control: Denies Saddle anesthesia: Denies Recent falls: Denies Constipation: Denies Past Medical History Past Medical History: Diagnosis Date Abdominal pain Anemia Arm numbness Arm weakness Arthritis Atrial fibrillation (HCC) Hanley esophagus Cataract Endometrial cancer (HCC) 1970 uterine ca Frequent UTI History of blood transfusion HLD (hyperlipidemia) Hypertension Leg numbness Leg weakness Liver cirrhosis secondary to nonalcoholic steatohepatitis (MATTHEW) (HCC) Sleep apnea, obstructive NO CPAP - DUE TO WEIGHT LOSS Squamous cell skin cancer Tongue irritation Uterine mass Reportedly benign Past Surgical History Past Surgical History: Procedure Laterality Date APPENDECTOMY ARTHROPLASTY SHOULDER REVERSE Right 11/29/2019 Procedure: Reverse right total shoulder replacement; Surgeon: Dada Hathaway MD; Location: Main OR; Service: Orthopedic CATARACTS Bilateral CHOLECYSTECTOMY CT COLONOSCOPY 11/18/[address] COLONOSCOPY 05/08/2019 CT COLONOSCOPY EXPLORATORY LAPAROTOMY N/A 07/29/2016 Procedure: EXPLORATORY LAPAROTOMY LYSIS OF ADHESION ; Surgeon: Smooth Sarabia MD; Location: [facility] Main OR; Service: FOOT FUSION Left HYSTERECTOMY LAMINECTOMY DECOMPRESSION LUMBAR WITH FUSION NAVIGATIONAL 1 LEVEL Right 05/19/2023 Procedure: Right Sacral 2- Iliac Fixation and Fusion with Sacroplasty; Surgeon: Bridger Monique MD; Location: Main OR; Service: Neurological OOPHORECTOMY RADIATION uterine ca TONSILLECTOMY TOTAL HIP ARTHROPLASTY Right TOTAL KNEE ARTHROPLASTY Bilateral TUMOR EXCISION NEAR OVARIES VEIN LIGATION Left LEG Allergies Allergies: Codeine, Cyclobenzaprine, Ibuprofen, Latex, Lisinopril-hydrochlorothiazide, Nsaids (non-steroidal anti-inflammatory drug), Nylon, and Adhesive tape-silicones Medications Current Outpatient Medications Medication Instructions Amitiza 8 mcg, Oral, 2 times daily with meals apixaban (Eliquis) 5 mg Tab One bid aspirin-calcium carbonate 81 mg-300 mg calcium(777 mg) Tab Oral, Every 24 hours atorvastatin (LIPITOR) 10 MG tablet Oral, Every 24 hours cholecalciferol (vitamin D3) 1,000 Units, Oral, Daily, PM dexlansoprazole (DEXILANT) 30 mg, Oral, Daily, AM diclofenac sodium 1% (VOLTAREN) 1 % Gel Topical, 4 times daily PRN, Apply to cervical neck and shoulders as needed up to 4 times per day for pain relief. diltiazem (CARDIZEM CD) 240 mg, Oral, Daily, AM estradioL (VAGIFEM) 10 mcg Tab Vaginal furosemide (LASIX) 80 mg, Oral, Daily levothyroxine (SYNTHROID, LEVOTHROID) 50 mcg, Oral, Daily, AM multivitamin with minerals tablet 1 tablet, Oral, Daily, PM polyethylene glycol (MIRALAX) 17 g, Oral, Daily, AM propafenone (RYTHMOL) 150 mg, Oral, 2 times daily rosuvastatin (CRESTOR) 5 mg, Oral, Nightly traMADol (ULTRAM) 50 mg, Oral, 2 times daily PRN Social History Social History Socioeconomic History Marital status: Tobacco Use Smoking status: Never Passive exposure: Never Smokeless tobacco: Never Vaping Use Vaping Use: Never used Substance and Sexual Activity Alcohol use: Yes Comment: a glass of wine evry couple [facility] Drug use: No Social Determinants of Health Financial Resource Strain: Unknown (11/19/2020) Overall Financial Resource Strain (CARDIA) Difficulty of Paying Living Expenses: Patient declined Food Insecurity: Unknown (11/19/2020) Hunger Vital Sign Worried About Running Out of Food in the Last Year: Patient declined Ran Out of Food in the Last Year: Patient declined Transportation Needs: Unknown (11/19/2020) PRAPARE - Transportation Lack of Transportation (Medical): Patient declined Lack of Transportation (Non-Medical): Patient declined Physical Activity: Insufficiently Active (11/19/2020) Exercise Vital Sign Days of Exercise per Week: 2 days Minutes of Exercise per Session: 20 min Stress: No Stress Concern Present (11/19/2020) [employer] - Occupational Stress Questionnaire Feeling of Stress : Only a little . Family History family history includes Brain cancer (age of onset: 60) in her sister; Cancer in her son; Cervical cancer in her daughter; Colon cancer in her sister; Colon cancer (age of onset: 70) in her sister; Coronary artery disease in her brother; Heart attack in her brother; Mitral valve prolapse in her sister; Multiple myeloma in her daughter; Other in her brother and son; Pancreatic cancer in her mother; Pneumonia in her son; Stroke in her brother and father; Throat cancer in her brother; Uterine cancer in her sister. Physical Exam PACU Vitals 02/22/24 1030 BP: 125/84 Pulse: 78 Resp: 16 SpO2: 97% General: No acute distress, atraumatic Cardiovascular: normal rate, no edema Respiratory: non-labored respirations Psychiatric: appropriate mood and affect Cervical Spine Exam: Cervical Spine ROM decreased in extension left rotation right rotation Cervical paraspinal tenderness noted bilaterally Strength: RUE: Deltoid 5/5 Elbow Flex 5/5 Elbow Ext 5/5 Wrist Flex 5/5 Wrist Ext 5/5 Direct Support Worker 5/5 LUE: Deltoid 5/5 Elbow Flex 5/5 Elbow Ext 5/5 Wrist Flex 5/5 Wrist Ext 5/5 Direct Support Worker 5/5 Hyman negative bilaterally Other Tests Imaging All imaging and tests below were personally reviewed by me unless otherwise indicated. XR lumbar spine 11/16/23: FINDINGS: Three views of the cervical spine. No acute fracture. C7-T1 articulation is intact. Exaggerated cervical lordotic curvature. 3 mm of anterolisthesis C4 relative to C5 on flexion views. No listhesis on extension views. Vertebral body heights are normal.Moderate loss of disc space at C5-6 and C6-7 with anterior endplate osteophytes and uncovertebral hypertrophy. No prevertebral soft tissue swelling. IMPRESSION: Anterolisthesis of C4 relative to C5 on flexion views. No definite acute fracture visualized. Consider CT scan and or MRI if there is recent trauma.Ops call initiated at time of read. Thank you for your kind referral. Please do not hesitate to contact me with any questions. Jaylan Benavides D.O. Interventional Pain Management [facility] [place] This note was generated using [employer] voice recognition software in an effort to expedite communication. Please excuse any resultant grammatical or wording errors. * Marianna Ross CMA - 02/22/2024 10:24 AM EDT Reason for Visit: New patient evaluation Pain location: neck Current pain Level: 5 Best pain Level: 5 Worst pain Level: 10 Pain description: aching Radiation: head, shoulders Sensory changes: none Motor changes: No Duration of pain: >6 months Increases pain: ROM of neck Decreases pain: medications Did the pain result from injury? Yes Previous pain procedures: none Patient's Goals: decrease pain, decrease pain with activity, improve ability to perform activities of daily living, improve quality of life, improve sleep, stand longer, and walk further Acceptable level of pain: 3 Additional concerns: none Focused Review of Systems: Loss of bladder control: Denies Loss of bowel control: Denies Saddle anesthesia: Denies Recent falls: Denies Constipation: Denies documented in this [id number] History of Present illness Narrative* Sancho Woodruff MD - 01/16/2024 2:40 PM EDT Subjective Patient ID: Alma Echeverria is a 83 y.o. female who presents for 3 mo CS. HPI Pain mgmt Takes 3 tramadol a day, was 2-3, now with fxand weather, fibro, is at 3. Mme<30 I have personally reviewed the OARRS report for the above patient. This report is scanned into the electronic medical record. I have considered the risks of abuse, dependence, addiction, and diversion. I believe that it is clinically appropriate for the above patient to be prescribed this medication. PDMT rev Neck, shoulder and left wrist. HCC's for A-fib GI hemorrhage mixed hyper lipid, iron deficiency anemia and acute UTI or close Review of Systems Greater than 70% reduction in pain allows her to perform a ADLs and IADLs Objective BP 126/78 Pulse 95 Ht 1.473 m (4' 10) Wt 71.7 kg (158 lb) SpO2 97% BMI 33.02 kg/m Physical Exam Heart is regular. Lungs are clear. Assessment/Plan Problem List Items Addressed This Visit ICD-10-CM Acute UTI N39.0 AF (paroxysmal atrial fibrillation) ([facility]) I48.0 Relevant Medications furosemide (Lasix) 40 mg tablet Other Relevant Orders Follow Up In Primary Care Acquired hypothyroidism E03.9 DDD (degenerative disc disease), lumbosacral M51.37 Relevant Orders Follow Up In Primary Care Hyperlipemia E78.5 Lumbar stenosis with neurogenic claudication M48.062 Relevant Orders Follow Up In Primary Care Anemia D64.9 GI bleed K92.2 Other Visit Diagnoses Codes Routine general medical examination at health care facility 00.00 documented in this [facility] Work Phone: [phone]) 261-465903-13-2024 History of Present illness Narrative* Jose A Ornelas, [employer] - 12/21/2023 1:00 PM EDT [facility] [address] [facility] [address] [facility] [id number] Chief Complaint Patient presents with Follow-up Patient presents today with right sided head pain in the back of the head. Pressure when lying downis uncomfortable. Achiness in the face on the right. HPI Alma Echeverria is a 82 y.o. female being seen on 12/21/23 presenting with Chief Complaint Patient presents with Follow-up Patient presents today with right sided head pain in the back of the head. Pressure when lying downis uncomfortable. Achiness in the face on the right. Patient has an extensive familial history of 1st degree relatives with cancer, CVA, and [place]. -Reports she has had the neck discomfort that has been slowly radiating to posterior head over the last 2 months. -Reports this bothers her at night time and not much during the day. -Right trapezius muscle is knotted up on examination. There is tenderness with palpation to posterior cervical area on the right and upward into scalp area. -Patient has a history of cervical neck pain and old cervical compression fractures per recent XR imaging. -We discussed her pain and its location. I don't feel a CT or MRI of the brain is warranted at thistime. There is no palpable mass on right posterior cervical area or on scalp. -Patient takes 2 tramadol each morning and reports this is somewhat effective. These are prescribedby Dr Goldberg. -She reports trying ice and heat to shoulders and this helps intermittently. -Does see a chiropractor a few time per month for ultrasound treatment on her neck and shoulders. States this helps for a few days at a time. -Patient has intolerances to muscle relaxers and NSAIDs. For this reason, we have chosen to attemptrelief using topical medications, LidoDerm patch throughout the day and Voltaren gel at night. -Patient is agreeable to a referral to Dr Benavides for cervical TEDDY injections at this time. 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 This is being treated by her digital advertising specialist at [facility]. -She reports no other changes in mentation, sensation, strength, cognition, coordination. 1. Rotator cuff disorder, right lidocaine (LIDODERM) 5 % patch diclofenac sodium 1% (VOLTAREN) 1 % Gel 2. Cervicalgia lidocaine (LIDODERM) 5 % patch diclofenac sodium 1% (VOLTAREN) 1 % Gel Ambulatory referral to Pain Medicine Orders Placed This Encounter Procedures Ambulatory referral to Pain Medicine Standing Status: Future Standing Expiration Date: 12/20/2024 Referral Priority: Routine Referral Type: Evaluate and Treat Referral Reason: Patient Preference Referred to Provider: Jaylan Benavides DO Number of Visits Requested: 1 OARRS/NARxCHECK Report Received and Assessed: No data found Date controlled substance agreement signed: No data found Date of last drug screen: No data found Functional Assessment: No data found Past Medical History: Diagnosis Date Abdominal pain Anemia Arm numbness Arm weakness Arthritis Atrial fibrillation (HCC) Hanley esophagus Cataract Endometrial cancer (HCC) 1970 uterine ca Frequent UTI History of blood transfusion HLD (hyperlipidemia) Hypertension Leg numbness Leg weakness Liver cirrhosis secondary to nonalcoholic steatohepatitis (MATTHEW) (HCC) Sleep apnea, obstructive NO CPAP - DUE TO WEIGHT LOSS Squamous cell skin cancer Tongue irritation Uterine mass Reportedly benign Past Surgical History: Procedure Laterality Date APPENDECTOMY ARTHROPLASTY SHOULDER REVERSE Right 11/29/2019 Procedure: Reverse right total shoulder replacement; Surgeon: Dada Hathaway MD; Location: Main OR; Service: Orthopedic CATARACTS Bilateral CHOLECYSTECTOMY CT COLONOSCOPY 11/18/[address] COLONOSCOPY 05/08/2019 CT COLONOSCOPY EXPLORATORY LAPAROTOMY N/A 07/29/2016 Procedure: EXPLORATORY LAPAROTOMY LYSIS OF ADHESION ; Surgeon: Smooth Sarabia MD; Location: [facility] Main OR; Service: FOOT FUSION Left HYSTERECTOMY LAMINECTOMY DECOMPRESSION LUMBAR WITH FUSION NAVIGATIONAL 1 LEVEL Right 05/19/2023 Procedure: Right Sacral 2- Iliac Fixation and Fusion with Sacroplasty; Surgeon: Bridger Monique MD; Location: Main OR; Service: Neurological OOPHORECTOMY RADIATION uterine ca TONSILLECTOMY TOTAL HIP ARTHROPLASTY Right TOTAL KNEE ARTHROPLASTY Bilateral TUMOR EXCISION NEAR OVARIES VEIN LIGATION Left LEG Current Outpatient Medications Medication Instructions Amitiza 8 mcg, Oral, 2 times daily with meals apixaban (Eliquis) 5 mg Tab One bid aspirin-calcium carbonate 81 mg-300 mg calcium(777 mg) Tab Oral, Every 24 hours atorvastatin (LIPITOR) 10 MG tablet Oral, Every 24 hours cholecalciferol (vitamin D3) 1,000 Units, Oral, Daily, PM dexlansoprazole (DEXILANT) 30 mg, Oral, Daily, AM diclofenac sodium 1% (VOLTAREN) 1 % Gel Topical, 4 times daily PRN, Apply to cervical neck and shoulders as needed up to 4 times per day for pain relief. diltiazem (CARDIZEM CD) 240 mg, Oral, Daily, AM estradioL (VAGIFEM) 10 mcg Tab Vaginal furosemide (LASIX) 80 mg, Oral, Daily levothyroxine (SYNTHROID, LEVOTHROID) 50 mcg, Oral, Daily, AM lidocaine (LIDODERM) 5 % patch 1 patch, Transdermal, Every 24 hours, Remove & Discard patch within 12 hours or as directed by multivitamin with minerals tablet 1 tablet, Oral, Daily, PM polyethylene glycol (MIRALAX) 17 g, Oral, Daily, AM propafenone (RYTHMOL) 150 mg, Oral, 2 times daily rosuvastatin (CRESTOR) 5 mg, Oral, Nightly traMADol (ULTRAM) 50 mg, Oral, 2 times daily PRN Allergies Allergen Reactions Codeine Other (See Comments) and Unknown skin crawling Other reaction(s): Other (See Comments) skin crawling Nausea nausea skin crawling skin crawling Other reaction(s): Other (See Comments) skin crawling Nausea Cyclobenzaprine Other (See Comments) AND OTHER MUSCLE RELAXERS AND OTHER MUSCLE RELAXERS Ibuprofen Other (See Comments), GI Intolerance, Nausea Only and Unknown Upset stomach Other reaction(s): Nausea Only Other reaction(s): Other (See Comments) Upset stomach Upset stomach Upset stomach Other reaction(s): Nausea Only Other reaction(s): Other (See Comments) Upset stomach Latex Lisinopril-Hydrochlorothiazide Nsaids (Non-Steroidal Anti-Inflammatory Drug) Other (See Comments) Liver problem Nylon Adhesive Tape-Silicones Rash BP 130/74 Pulse 73 Temp 98.7 F (37.1 C) SpO2 97% Physical Exam Constitutional: General: She is not in acute distress. Appearance: Normal appearance. HENT: Head: Normocephalic and atraumatic. Eyes: General: Visual field deficit present. Extraocular Movements: Extraocular movements intact. Comments: In left eye only Neck: Comments: ROM decreased with rotation and flexion. Able to extend without difficulty. Tenderness with palpation to posterior right cervical muscles and along nape of neck at hairline. Cardiovascular: Rate and Rhythm: Normal rate. Pulses: Normal pulses. Pulmonary: Effort: Pulmonary effort is normal. No respiratory distress. Musculoskeletal: Cervical back: Rigidity and tenderness present. Skin: General: Skin is warm and dry. Neurological: General: No focal deficit present. Mental Status: She is alert and oriented to person, place, and time. Sensory: No sensory deficit. Motor: No weakness. Coordination: Coordination normal. Gait: Gait normal. Psychiatric: Mood and Affect: Mood normal. Behavior: Behavior normal. Jose A Ornelas CNP 12/21/23 10:00 AM documented in this [id number] History of Present illness Narrative* Jose A Ornelas CNP - 11/15/2023 2:00 PM EST [facility] Neurosurgery [address] [place], [place] [id number] office Chief Complaint Patient presents with Neck Pain Patient presents today with neck pain that travels to back of head on right side, hurts to touch. Pain in neck is worse with movement, so turning head to look both ways, bringing head up or down. Right hand to elbow has been numb off and on Alma Echeverria is a 82 y.o. female presenting to clinic today for Chief Complaint Patient presents with Neck Pain Patient presents today with neck pain that travels to back of head on right side, hurts to touch. Pain in neck is worse with movement, so turning head to look both ways, bringing head up or down. Right hand to elbow has been numb off and on -Rotator cuff disorder right shoulder -Right Sacral 2 - Iliac Fixation and fusion with Sacroplasty with Dr Monique on 05/19/2023. -Dr Goldberg prescribes patient Tramadol. This does help with her generalized arthritic pain but notso much with her cervical pain. -Patient does not take any OTC meds as she has liver problems. -Has not used any heat or ice to cervical area. -Rates pain in a range from 2-6/10. ASSESSMENT & PLAN: Patient has a history of osteoporosis. States she believes that her vertebrae in her neck is brokenas the pain feels just the same as when a sacral vertebrae took place. States flexion and extensioncause increased pain. This has been happening for the last 2-3 months. States pain has gradually worsened. States that she has also been having some numbness and tingling in her right hand and forearm up to the elbow. States no pain/numbness/tingling to upper arms bilaterally. Endorses pain to bilateral cervical muscles. We will XR cervical spine today to look for any acute fractures or osseous deformity that would be causing this pain. Patient instructed to wear a soft collar until imaging is a vailable to review and if needed we will place an order for an [place] collar upon review of images. Should XR images show no acute concerns, we will discuss ordering CT or MRI to assess for other modalities responsible for her discomfort. Diagnoses and all orders for this visit: Cervical radicular pain - XR Cervical Spine AP/LAT/FLEX/EXT; Future - Cervical collar soft Cervicalgia Rotator cuff disorder, right Rotator cuff disorder, left Past Medical History: Diagnosis Date Abdominal pain Anemia Arm numbness Arm weakness Arthritis Atrial fibrillation (HCC) [place] esophagus Cataract Endometrial cancer (HCC) 1970 uterine ca Frequent UTI History of blood transfusion HLD (hyperlipidemia) Hypertension Leg numbness Leg weakness Liver cirrhosis secondary to nonalcoholic steatohepatitis (MATTHEW) (HCC) Sleep apnea, obstructive NO CPAP - DUE TO WEIGHT LOSS Squamous cell skin cancer Tongue irritation Uterine mass Reportedly benign Past Surgical History: Procedure Laterality Date APPENDECTOMY ARTHROPLASTY SHOULDER REVERSE Right 11/29/2019 Procedure: Reverse right total shoulder replacement; Surgeon: Dada Hathaway MD; Location: Main OR; Service: Orthopedic CATARACTS Bilateral CHOLECYSTECTOMY CT COLONOSCOPY 11/18/[address] COLONOSCOPY 05/08/2019 CT COLONOSCOPY EXPLORATORY LAPAROTOMY N/A 07/29/2016 Procedure: EXPLORATORY LAPAROTOMY LYSIS OF ADHESION ; Surgeon: Smooth Sarabia MD; Location: [facility] Main OR; Service: FOOT FUSION Left HYSTERECTOMY LAMINECTOMY DECOMPRESSION LUMBAR WITH FUSION NAVIGATIONAL 1 LEVEL Right 05/19/2023 Procedure: Right Sacral 2- Iliac Fixation and Fusion with Sacroplasty; Surgeon: Bridger Monique MD; Location: Main OR; Service: Neurological OOPHORECTOMY RADIATION uterine ca TONSILLECTOMY TOTAL HIP ARTHROPLASTY Right TOTAL KNEE ARTHROPLASTY Bilateral TUMOR EXCISION NEAR OVARIES VEIN LIGATION Left LEG Allergies Allergen Reactions Codeine Other (See Comments) and Unknown skin crawling Other reaction(s): Other (See Comments) skin crawling Nausea nausea skin crawling skin crawling Other reaction(s): Other (See Comments) skin crawling Nausea Cyclobenzaprine Other (See Comments) AND OTHER MUSCLE RELAXERS AND OTHER MUSCLE RELAXERS Ibuprofen Other (See Comments), GI Intolerance, Nausea Only and Unknown Upset stomach Other reaction(s): Nausea Only Other reaction(s): Other (See Comments) Upset stomach Upset stomach Upset stomach Other reaction(s): Nausea Only Other reaction(s): Other (See Comments) Upset stomach Latex Lisinopril-Hydrochlorothiazide Nsaids (Non-Steroidal Anti-Inflammatory Drug) Other (See Comments) Liver problem Nylon Adhesive Tape-Silicones Rash Current Outpatient Medications Medication Sig Dispense Refill AMITIZA 8 mcg capsule Take 1 (one) capsule (8 mcg total) by mouth 2 (two) times a day with meals . apixaban (Eliquis) 5 mg Tab One bid . 180 tablet 3 aspirin-calcium carbonate 81 mg-300 mg calcium(777 mg) Tab Take by mouth daily . atorvastatin (LIPITOR) 10 MG tablet Take by mouth daily . cholecalciferol, vitamin D3, 1,000 unit tablet Take 1 (one) tablet (1,000 Units total) by mouth daily PM . dexlansoprazole (DEXILANT) 30 mg capsule Take 1 (one) capsule (30 mg total) by mouth daily AM . diltiazem (CARDIZEM CD) 240 MG 24 hr capsule Take 1 (one) capsule (240 mg total) by mouth daily AM . estradioL (VAGIFEM) 10 mcg Tab Insert into the vagina . furosemide (LASIX) 40 MG tablet Take 2 (two) tablets (80 mg total) by mouth daily . 180 tablet 3 levothyroxine (SYNTHROID, LEVOTHROID) 50 MCG tablet Take 1 (one) tablet (50 mcg total) by mouth once daily AM . multivitamin with minerals tablet Take 1 (one) tablet by mouth daily PM . polyethylene glycol (MIRALAX) 17 gram powder Take 17 (seventeen) g by mouth daily AM . propafenone (RYTHMOL) 150 MG tablet Take 1 (one) tablet (150 mg total) by mouth 2 (two) times a day. 60 tablet 11 rosuvastatin (Crestor) 5 MG tablet Take 1 (one) tablet (5 mg total) by mouth nightly . 30 tablet 11 traMADoL (ULTRAM) 50 mg tablet Take 1 (one) tablet (50 mg total) by mouth 2 (two) times a day as needed . No current facility-administered medications for this visit. OARRS/NARxCHECK Report Received and Assessed: No data found Date controlled substance agreement signed: No data found Date of last drug screen: No data found Functional Assessment: No data found PACU Vitals 11/15/23 1400 BP: 124/76 Pulse: 81 Temp: 98.5 F (36.9 C) SpO2: 94% PainSc: 7 PainLoc: Neck Physical Exam Constitutional: General: She is not in acute distress. Appearance: Normal appearance. HENT: Head: Normocephalic and atraumatic. Neck: Comments: Tenderness with palpation to posterior cervical paraspinal muscles. Decreased ROM due to discomfort. Cardiovascular: Rate and Rhythm: Normal rate. Pulses: Normal pulses. Pulmonary: Effort: Pulmonary effort is normal. No respiratory distress. Musculoskeletal: General: No swelling or tenderness. Normal range of motion. Cervical back: Neck supple. Skin: General: Skin is warm and dry. Neurological: General: No focal deficit present. Mental Status: She is alert and oriented to person, place, and time. Mental status is at baseline. Sensory: No sensory deficit. Motor: No weakness. Deep Tendon Reflexes: Reflexes abnormal. Comments: Strength is 4+/5 throughout upper extremities. Sensation is intact. 1+ brachioradialis DTR bilaterally. Psychiatric: Mood and Affect: Mood normal. Behavior: Behavior normal. Jose A Ornelas CNP 11/17/2023 9:14 AM documented in this [id number] History of Present illness Narrative* Christine Voss CNP - 10/13/2023 3:23 PM ESTAssociated Order(s): LG Jt Injection/Arthrocentesis: L glenohumeral Post-Procedure Diagnose(s): Rotator cuff disorder, left 10/13/23 Alma Echeverria 1940 Chief Complaint Patient presents with Injections Left shoulder injection HISTORY of Present Illness: Alma Echeverria is a 82 y.o. year old female that presents today with Injections (Left shoulder injection/) . Alma Echeverria has had injections in the past. Last injection to right/left shoulder was 12/27/22 and they tolerated well. They have been treated w/ oral medications & injections. Patient denies new injury to the shoulder. The following portions of the patient's history were reviewed and updated as appropriate: allergies, current medications, past surgical history and problem list PAST MEDICAL HISTORY The patient's Medications, Allergies, Past Surgical History, Medical History, Family History and Social History were reviewed and can be found in their online medical record, and I have reviewed thisinformation with Alma Echeverria at the time of their visit. They are significant for Past Medical History: Diagnosis Date Abdominal pain Anemia Arm numbness Arm weakness Arthritis Atrial fibrillation (HCC) [place] esophagus Cataract Endometrial cancer (HCC) 1970 uterine ca Frequent UTI History of blood transfusion HLD (hyperlipidemia) Hypertension Leg numbness Leg weakness Liver cirrhosis secondary to nonalcoholic steatohepatitis (MATTHEW) (HCC) Sleep apnea, obstructive NO CPAP - DUE TO WEIGHT LOSS Squamous cell skin cancer Tongue irritation Uterine mass Reportedly benign IMAGING Notes: none new today. Reviewed from last visit. IMPRESSION And PLAN: Cortisone injection today. Will follow up in 3 months if effective. Call if no improvement in 10 days. No diagnosis found. LG Jt Injection/Arthrocentesis: L glenohumeral Performed by: Christine Voss CNP Authorized by: Christine Voss CNP CPT 64978 - Large Joint Arthrocentesis: Consent given by: Patient Time out: Immediately prior to the procedure a time out was called Physician or proceduralist has discussed critical or nonroutine steps, procedure duration and anticipated blood loss: Yes Supporting Documentation: Indications: Pain and diagnostic evaluation Procedure Details: Location: Shoulder Site: L glenohumeral Prep: patient was prepped and draped in usual sterile fashion Needle size: 22 G Approach: Posterior Medications: 40 mg triamcinolone acetonide 40 mg/mL Anesthetic used: Lidocaine 1% Anesthetic amount (mL): 2 Patient tolerance: Patient tolerated the procedure well with no immediate complications Christine Voss CNP documented in this [id number] History of Present illness Narrative* Sancho Woodruff MD - 10/13/2023 2:00 PM EST Subjective Reason for Visit: Alma Echeverria is an 82 y.o. female here for a Medicare Wellness visit. Past Medical, Surgical, and Family History reviewed and updated in chart. Reviewed all medications by prescribing practitioner or clinical pharmacist (such as prescriptions,OTCs, herbal therapies and supplements) and documented in the medical record. HPI Since the last office visit there have been no interval operations, hospitalizations, important illnesses or injuries. Rare alcohol, no tob, no illicit. Tramadol at 3 -4 a day, primarily for degenerative disc disease low back lumbar stenosis with neurogenic claudication no se, >50% pain relief. Ovdo 50 MME27. I have personally reviewed the OARRS report for the above patient. This report is scanned into the electronic medical record. I have considered the risks of abuse, dependence, addiction, and diversion. I believe that it is clinically appropriate for the above patient to be prescribed this medication. Hypothyroid tsh improved 4.7-to3.5 Anemia hgb 10.8 to to 12.1. No further evidence of GI bleeding Paroxysmal A-fib remains on Eliquis Hyperlipidemia- on statin and prudent diet Asks for medicine to hold for UTI self start Patient Care Team: Sancho Woodruff MD as PCP - General Sancho Woodruff MD as PCP - MSSP ACO Attributed Provider Review of Systems General-no fatigue weight to within 10 pounds ENT no problems with vision swallowing Cardiac no chest pains palpitations change in exercise tolerance or capacity Pulmonary no cough shortness of breath GI no heartburn or abdominal pain Musculoskeletal no joint pains Objective Vitals: BP 130/80 Pulse 100 Ht 1.473 m (4' 10) Wt 70 kg (154 lb 4.8 oz) SpO2 98% BMI 32.25 kg/m Physical Exam General: Alert, No acute distress. Appears stated age Eye: Pupils are equal, round and reactive to light, Extraocular movements are intact, Normal conjunctiva. Neck: Supple, Non-tender, No carotid bruit, No jugular venous distention, No lymphadenopathy, No thyromegaly. Respiratory: Lungs are clear to auscultation, Respirations are non-labored, Breath sounds are equal. Cardiovascular: Normal rate, Regular rhythm, No murmur. Gastrointestinal: Soft, Non-tender, No organomegaly. No solid or pulsatile mass Integumentary: Warm, Dry. No concerning lesions on exposed areas Neurologic: Alert, Oriented. Gross and fine motor intact, CN 2-12 intact Psychiatric: Cooperative, Appropriate mood & affect. Assessment/Plan Problem List Items Addressed This Visit AF (paroxysmal atrial fibrillation) (CMS/HCC) Acquired hypothyroidism DDD (degenerative disc disease), lumbosacral Hyperlipemia Lumbar stenosis with neurogenic claudication Anemia GI bleed Other Visit Diagnoses Routine general medical examination at health care facility - Primary documented in this [facility] Work Phone: [phone]) 222-281610-09-2023 Instructions* Patient Instructions* Dada Gee PA-C - 07/18/2023 1:08 PM EDT -Her neuromotor exam is intact there is no radiculopathic or myelopathic symptoms. She is afebrile with no infectious symptoms or dehiscence noted of her incision site. -I reviewed the patient's x-ray pelvis performed on 06/15/2023 in office today and agree with radiologist findings hardware construct appears stable. I reviewed the images with the patient today. -Discussed with patient regarding her chiropractic questions I advised against any manipulation or deep tissue massage especially of her lumbo sacral region due to recent surgery. Patient denied x-ray of her neck today to evaluate possible causes of her arm numbness. Explained that this is most likely degenerative in nature and would recommend an x-ray of her cervical spine aswell as physical therapy regimen to start. Patient would like to hold off on physical therapy regimen and x-ray imaging today stating is not large enough concern at this point in time to her to carryforward with interventions but she understands to call to request these if she would like work-up to be completed. I did advise the patient that if she develops any weakness, gait instability or balance issues, tremor, increased pain or fever/infectious symptoms of her incision site including redness, swelling, discharge, dehiscence or other concerning sign/symptom she should report to the emergency department. We will see the patient in 4 weeks for follow-up sooner if needed. She requested a home exercise handout for her low back and neck which I provided. Explained to patient if any exercises causing symptoms such as pain to stop exercise notify neurosurgery. Maintain bending lifting twisting precautions discussed preoperatively. Call with any questions or concerns. documented in this [id number] History of Present illness Narrative* Dada Gee PA-C - 07/18/2023 12:51 PM EDT Neurosurgery Progress Note Assessment/Plan: 82-year-old female with recent right sacroiliac pelvic instrumentation and fusion,right sacroplasty. Completely resolved sacral pain doing well postoperatively. Chronic shoulder pain with subacute right arm numbness in the mornings. -Her neuromotor exam is intact there is no radiculopathic or myelopathic symptoms. She is afebrile with no infectious symptoms or dehiscence noted of her incision site. -I reviewed the patient's x-ray pelvis performed on 06/15/2023 in office today and agree with radiologist findings hardware construct appears stable. I reviewed the images with the patient today. -Discussed with patient regarding her chiropractic questions I advised against any manipulation or deep tissue massage especially of her lumbo sacral region due to recent surgery. Patient denied x-ray of her neck today to evaluate possible causes of her arm numbness. Explained that this is most likely degenerative in nature and would recommend an x-ray of her cervical spine aswell as physical therapy regimen to start. Patient would like to hold off on physical therapy regimen and x-ray imaging today stating is not large enough concern at this point in time to her to carryforward with interventions but she understands to call to request these if she would like work-up to be completed. I did advise the patient that if she develops any weakness, gait instability or balance issues, tremor, increased pain or fever/infectious symptoms of her incision site including redness, swelling, discharge, dehiscence or other concerning sign/symptom she should report to the emergency department. We will see the patient in 4 weeks for follow-up sooner if needed. She requested a home exercise handout for her low back and neck which I provided. Explained to patient if any exercises causing symptoms such as pain to stop exercise notify neurosurgery. Maintain bending lifting twisting precautions discussed preoperatively. Call with any questions or concerns. Dada Gee PA-C [facility] Subjective: Patient follows up today with neurosurgical office for postop appointment from a right S1, S2 iliacpelvic instrumentation, right S1, S2, S3, S4 posterior lateral autograft fusion, right sacroplasty with Dr. Monique performed on 05/19/2023. This was done for history of right sacral jaime insufficiencyfracture extending from S1-S4 segments with intractable pain which was not improved over the courseof 6 weeks preoperatively with conservative therapy. She states since her surgical intervention herpain has completely resolved. She denies any current low back or sacral pain or pain in the buttocks. No new leg pain, numbness, weakness, paresthesias no bowel or bladder incontinence. She denies any issues with her incision no redness swelling discharge. Denies any fever or chills. She has resumed her Eliquis as prescribed. She also discussed with me today her bilateral shoulders which she states have been chronically in pain and right arm numbness which typically occurs in the morning extending from dorsal forearm and entirety of hand which relieves with squeezing hand therapy ball in the morning. She denies any midline neck pain denies any arm pain or paresthesias. She does say some subjective weakness both hands sometimes drops objects, but not increased specifically recently. No issues with walking or gait or balance. No recent falls or injuries. She sees a chiropractor for her shoulder pain which she stateshelps with the pain. Objective: General: Pleasant 82-year-old female no acute distress HENT: Nares patent with minimal clear drainage, hearing grossly intact, normocephalic and atraumatic Eyes: PERRLA, 4mm bilaterally Neuro: Awake, alert, and oriented x 3; face symmetric, speech fluent Neck: Supple, full lateral rotation, no obvious gross deformity no crepitus no step-offs. No pain to palpation of cervical midline but she does have pain mild to moderate superior shoulder bilaterally Chest: Chest rise symmetric, respirations non-labored Cardiac: No Homans' sign, no edema observed, peripheral pulses normal Abdomen: soft, non-tender, non-distended Back: Patient's right sacroplasty incision site is CDI, no redness, dehiscence, discharge, heat, tenderness, swelling. No crepitus or step-off noted. No pain on palpation of her lumbosacral region. Skin: Warm and dry and intact MSK: Normal bulk and normal tone Manual Muscle Testing Muscle Group Right Left Biceps 5 5 Triceps 5 5 Deltoid 5 5 Direct Support Worker 5 5 Hip Flexion 5 5 Knee Extension 5 5 Knee Flexion 5 5 Dorsiflexion 5 5 Plantar Flexion 5 5 EHL 5 5 Sensation intact light touch and pressure of all extremities No Baltazar no Babinski no clonus bilaterally Bicep, brachioradialis, patellar reflex 2+ bilaterally and symmetric documented in this [id number] History of Present illness Narrative* Sancho Woodruff MD - 07/07/2023 2:40 PM EDT Subjective Patient ID: Alma Echeverria is a 82 y.o. female who presents for 3 mo CS. HPI Mme 27, tramadol x4 with >50% relief, no side effects for ddd. I have personally reviewed the OARRS report for the above patient. This report is scanned into the electronic medical record. I have considered the risks of abuse, dependence, addiction, and diversion. I believe that it is clinically appropriate for the above patient to be prescribed this medication. Some fatigue > usual, willck labs Review of Systems Denies chest pains palpitations cough shortness of breath heartburn or abdominal pain. Musculoskeletal pain is persistent fibromyalgia has persistent and giving her global discomfort and fatigue. Objective BP 122/60 Pulse 69 Ht 1.473 m (4' 10) Wt 70.2 kg (154 lb 12.8 oz) SpO2 98% BMI 32.35 kg/m Physical Exam Heart regular no murmur lungs clear to auscultation abdomen protuberant soft carotids equal no bruit thyroid nontender Assessment/Plan Problem List Items Addressed This Visit ICD-10-CM AF (paroxysmal atrial fibrillation) ([facility]/HCC) I48.0 Relevant Orders Follow Up In Primary Care Acquired hypothyroidism E03.9 Relevant Orders CBC Thyroid Stimulating Hormone Follow Up In Primary Care DDD (degenerative disc disease), lumbosacral M51.37 Relevant Orders Follow Up In Primary Care Hyperlipemia E78.5 Relevant Orders CBC Comprehensive Metabolic Panel Lipid Panel Follow Up In Primary Care Lumbar stenosis with neurogenic claudication M48.062 Relevant Orders Follow Up In Primary Care Anemia - Primary D64.9 Relevant Orders CBC Follow Up In Primary Care GI bleed K92.2 Relevant Orders CBC Follow Up In Primary Care documented in this [facility] Work Phone: 1(951) 921-377809-06-2023 History of Present illness Narrative* Shawn Mcmillan PA-C - 06/15/2023 1:24 PM EDT Patient Information: Alma Echeverria is a 82 y.o. female 1940 HPI Patient is a 82-year-old female presenting for follow-up after an SI joint fusion approximately 1 month ago. Patient reports that her preoperative symptoms have nearly completely resolved. She does note some minor postoperative pain but states that this is tolerable. She denies any radicular pain or numbness/tingling. She denies any weakness or issues with her incision. 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 She has a past surgical history that includes CATARACTS (Bilateral); Hysterectomy; Foot Fusion (Left); tonsillectomy; Tumor excision; Vein ligation (Left); Appendectomy; Cholecystectomy; Exploratory Laparotomy (N/A, 07/29/2016); Total knee arthroplasty (Bilateral); Total hip arthroplasty (Right); Oo phorectomy; Radiation; Arthroplasty Shoulder Reverse (Right, 11/29/2019); and LAMINECTOMY DECOMPRESSION LUMBAR WITH FUSION NAVIGATIONAL 1 LEVEL (Right, 05/19/2023). Her family history includes Brain cancer (age of onset: 60) in her sister; Cancer in her son; Cervical cancer in her daughter; Colon cancer in her sister; Colon cancer (age of onset: 70) in her sister; Coronary artery disease in her brother; Heart attack in her brother; Mitral valve prolapse in hersister; Multiple myeloma in her daughter; Other in her brother and son; Pancreatic cancer in her mother; Pneumonia in her son; Stroke in her brother and father; Throat cancer in her brother; Uterine cancer in her sister. She reports that she has never smoked. She has never been exposed to tobacco smoke. She has never used smokeless tobacco. She reports that she does not currently use alcohol. She reports that she does not use drugs. Current medicine and allergy list has been reviewed with the patient. ROS: 12 System Review was performed by the patient in the office setting today, and reviewed with the patient. This ROS will be digitally scanned into the chart following the appointment today. Physical and Neurological Examination: AAOx3, sensory exam intact, motor 5/5, gait normal, incision clean, dry, intact and nonerythematous Studies Reviewed I have reviewed the patient's imaging studies to date, in detail with patient in the office. No recent imaging Medical Decision-Making and Summary: This is an 82-year-old female who underwent an SI joint fusion approximately month ago. Clinically she is doing very well and has had resolution of her preoperative symptoms. I would like to obtain x-rays today of her construct. I would also like to have her follow-up in 1 month for reevaluation and to assess her progress. She was instructed to call with any questions or concerns in the meantime. I have reviewed the clinical findings with the patient in the office today, and the radiographic correlate was demonstrated to the patient in the exam room as well. I discussed the natural history, as well as conservative and surgical treatment options. I utilized spinal models and diagrams to act as visual aids during counseling today. I have answered the patient's questions today, following my consultation. The patient was advised to call with any questions. documented in this [id number] History of Present illness Narrative* Sancho Woodruff MD - 06/09/2023 8:20 AM EDT Subjective Patient ID: Alma Echeverria is a 82 y.o. female who presents for check spot on leg. HPI Had a scratch on left leg distal third from the dog. It is a 2 cm x 1 cm flap laceration which has not healed yet now 3 weeks old. Denies fever chills Review of Systems As per HPI Objective BP 126/80 Pulse 84 Ht 1.473 m (4' 10) Wt 69.8 kg (153 lb 12.8 oz) SpO2 98% BMI 32.14 kg/m Physical Exam Anterior aspect distal third of left leg has a 2 x 1 cm triangular flap laceration with granulationand base clean edges no lymphangitis and just a couple millimeters of surrounding erythema. Assessment/Plan Problem List Items Addressed This Visit None Visit Diagnoses Cellulitis of left lower extremity - Primary Relevant Medications doxycycline (Vibramycin) 100 mg capsule [facility] Work Phone: 1(655) 408-635308-25-2023 History of Present illness Narrative* Kendra Mena RN - 06/03/2023 3:31 PM EDT Patient presents today for dressing change to lumbar incision. Prevena wound vac dressing intact, occlusive. Vac turned off, dressing removed without difficulty. Small amount of drainage noted to dressing and small amount drainage noted in cannister. Incision approximated, underlying approximated. No drainage, redness, or edema noted. Cleaned with chloraprep, allowed to dry. 4x4 placed at base ofincision and secured with paper tape to pad from waistband of clothing. Understands to call with any drainage, signs of infection, or concerns. documented in this [id number] History of Present illness Narrative* Kendra Mena RN - 05/27/2023 1:29 PM EDT Prevena wound vac dressing applied to lumbar incision per request of Dr. Monique. Incision cleaned, allowed to dry, dressing applied. Suction noted, instructions provided to patient and , sent extra strips and information booklet with them documented in this [id number] History of Present illness Narrative* Bridger Monique MD - 05/27/2023 12:59 PM EDT Chief Complaint Patient presents with Follow-up Patient states near her incision she is having drainage with burning sensation Follow-up sacral ala fracture fixation MINDY Marquez is now 8 days status post right S1-S2 iliac fixation and sacroplasty procedure for diffuse sacral ala fracture. Since surgery she all of her pain is completely disappeared from the sacral area and buttock and hip. She has no radiating pain in his lower extremities. She has been seen in clinicfor dressing changes because she has had a serosanguineous drainage from the incision line which persists until today. The amount of drainage however has diminished. She denies fever chills or night sweats. She had been on Eliquis preoperatively which was held for surgery. Review of Systems Hypothyroidism. Atrial fibrillation. Hypertension. Eliquis exposure. Physical Exam Awake alert pleasant female no obvious acute distress. BIBI test is negative the bilateral hips. Straight leg raising negative. No calf swelling or tenderness. Power in the bilateral lower extremities 5 out of 5 and equal successfully. She has a healing linear incision in the right paramedian appro ximate L5-S3 level. The central portion of the incision does have a small amount of serosanguineousdrainage where the skin has not completely apposed yet. There is no significant erythema. There is no fullness to the site. There is no significant tenderness to the operative site. Impression Postoperative seroma drainage from sacral ala fixation site. Plan We will attempt a nancy drain at this site as well as continue dressing changes. We will also place patient on oral antibiotics. She should probably hold her Eliquis going forward until this begins toheal further. We will see her next week in clinic for wound check. Bridger Monique MD documented in this [id number] History of Present illness Narrative* Kendra Mena RN - 05/26/2023 3:11 PM EDT Patient presents today for dressing change. Moderate amount of dark dried drainage noted on aquaceldressing, states was leaking out earlier today. Spot to lower incision with small amount of red drainage noted when pressure applied to outer part of incision. Rest of incision approximated no drainage noted. Denies any increased pain, headache. Still complains of being sore with movement, no change. Jose A BAEZA asked to see patient, she placed exofin to site, allowed to dry. Covered with telfa dressing and tegaderm. Patient understands to call with any new or worsening symptoms, any drainage. documented in this [id number] History of Present illness Narrative* Kendra Mena RN - 05/23/2023 2:04 PM EDT Patient presents today for incision check/dressing change. Moderate amount of dark dried drainage to lumbar aquacel dressing. Dressing removed, no active drainage noted, incision approximated, no drainage noted from incision site where bleeding was noted before. Cleaned with chloraprep, allowed to air dry, again no drainage noted. Area around incision still with ecchymosis and edema, no tension on incision. Steri strips applied and covered with Aquacel dressing. Understands to call with any drainage or concerns. documented in this [id number] Note* Quick Note - Shakila Ortiz RN - 05/19/2023 12:58 PM EDT Spoke to Jose A Ornelas CNP about patients jimenez and discharge home. Clarified pain medication [id number] Miscellaneous Notes* Quick Note - Shakila Ortiz RN - 05/19/2023 12:58 PM EDT Spoke to Jose A Ornelas CNP about patients jimenez and discharge home. Clarified pain medication * Brief Op Note - Bridger Monique MD - 05/19/2023 12:05 PM EDT Brief Post Operative Note Patient Name: Alma Echeverria : 1940 (82 y.o.) Date of Service: 05/19/2023 CSN: [id number] Procedure(s): Right Sacral 1-2- Iliac Fixation and Fusion with Sacroplasty Pre-Operative Diagnoses: * Sacral insufficiency fracture with delayed healing [M84.48XG] Post-Operative Diagnoses: * Sacral insufficiency fracture with delayed healing [M84.48XG] Surgeon(s) and Role: * Bridger Monique MD - Primary Anesthesiologist: Luis M Garza MD NON CDL DRIVER: Leslee Hassan CRNA; Dmitri Perry CRNA; Glendy Springer CRNA Edger Runner: Toyin Rios RN Electrotype Servicer: Delisa Oneal Machine Lead Burner: Estrella Viera, TECHNOLOGIST Scrub Person: Pablo Shannon ST; Jones, Sarah J, RN Operative findings: sacral fracture Intra and immediate post-operative complications: none Type of anesthesia used: General Estimated blood loss: 250 mL Estimated urine output: 500 mL Specimen(s): * No specimens in log * Implant(s): Implant Name Type Inv. Item Serial No. Test Deskman Lot No. LRB No. Used Action SEALANT 10ML HEMOSTATIC MATRIX FAST PREP FLOSEAL - S. SEALANT 10ML HEMOSTATIC MATRIX FAST PREP FLOSEAL . bCODE [id number] Right 1 Implanted HEMOSTAT 4 X 8IN SURGICEL - S. HEMOSTAT 4 X 8IN SURGICEL . ETHICON [id number] Right 1 Implanted HEMOSTAT 2 X 4IN SURGICEL FIBRILLAR - S. HEMOSTAT 2 X 4IN SURGICEL FIBRILLAR . ETHICON [id number] Right 1 Implanted HEMOSTAT 8 X 12.5CM X 10MM SURGIFOAM GELATIN SPONGE - S. HEMOSTAT 8 X 12.5CM X 10MM SURGIFOAM GELATIN SPONGE . ETHICON [id number] Right 1 Implanted PUTTY 5CC MIKAELA DBM - [id number] Bone PUTTY 5CC MIKAELA DBM [id number] MEDTRONIC . Right 1 Implanted STRIP 10 X 2 X 0.6CM 12CC SGL MASTERGRAFT - S. Graft STRIP 10 X 2 X 0.6CM 12CC SGL MASTERGRAFT . MEDTRO J CARLOS [id number] Right 1 Implanted KIT AUTOPLEX W/VERTAPLEX HV CEMENT - S. Cement KIT AUTOPLEX W/VERTAPLEX HV CEMENT . SAMIR [id number] Right 1 Implanted TOMASZ MOMO 40MM . LOAD 19 Right 1 Implanted Fenestrated Screw 8.5 60mm . SAMIR . Right 1 Implanted Fenestrated Screw 7.5 50mm . SAMIR . Right 1 Implanted [place] Set Screw . SAMIR . Right 2 Implanted Drain(s): Urethral Catheter Non-latex 16 Fr. (Active) Wound(s): Wound 11/29/19 Surgical Wound Shoulder Right (Active) Wound 05/19/23 Surgical Wound Lumbar Spine;Thoracic Spine (Active) Wound Closure Surgical Adhesive 05/02/23 0002 Bridger Monique MD 05/19/2023 12:05 PM * Op Note - Bridger Monique MD - 05/19/2023 10:08 AM EDT ALMA ECHEVERRIA [id number] 1940 DATE 05/19/2023 OPERATIVE REPORT SURGEON BRIDGER MONIQUE MD PREOPERATIVE DIAGNOSIS Right extensive sacral alar insufficiency fracture with chronic pain. POSTOPERATIVE DIAGNOSIS Right extensive sacral alar insufficiency fracture with chronic pain. PROCEDURE Right S1, S2 iliac pelvic instrumentation, right S1, S2, S3, S4 posterior-lateral autograft fusion, right sacroplasty. ANESTHESIA General. INDICATION Alma Echeverria is an 82-year-old female who sustained an extensive insufficiency fracture of the right sacral ala extending from S1 through S4 segments. The patient is in intractable pain and has not improved with over 6 weeks of conservative therapy. She now presents for sacropelvic fixation of the fracture, and sacroplasty. PROCEDURE IN DETAIL The procedure was performed in OR #2. The patient was intubated and general anesthesia was established. An appropriate time-out was performed with the neurosurgery, anesthesiology, and nursing teams. All agreed to this patient's identity and planned procedure. After intubation and establishing general anesthesia, she was rolled in the prone position on the radiolucent Arturo spine frame, taking care to pad all pressure points. She received 2 g of Ancef at the onset of procedure for antibiotic prophylaxis. The Wireless Safety intraoperative CT and navigation were used throughout the procedure to ensure appropriate trajectory of instrumentation. In addition, Cell Saver was used throughout the procedure; however, there was not sufficient blood loss to allow for spin down. The special services agent team also obtained 30 cc the platelet-poor and 2 cc of platelet-rich plasma, which were mixed with autograft that was obtained from the patient's L4 and L5 spinous processes, and 5 cc of demineralized bone matrix for bone graft purposes at the end of the procedure. First, a midline incision was made extending from L4 through S3. Points of bleeding were controlled with bipolar cautery. Monopolar cautery was then used to dissect down through the lumbosacral fascia and to expose on the right side the sacral ala from through S4 segments. Next, intraoperative navigation CT was performed with an array on the L4 spinous process. Next, sacroiliac pelvic fixation screws were placed. The [employer] [place] fenestrated screw system was used. Screws were placed 1st by drilling a supervising airplane pilot hole and then navigating a Lenke probe across the SI joint. Next, progressive under tapping was then used successively. Ball probe was used throughout placement of screws to ensure integrity of the pathway of the intended pedicle screw placement. Finally, the pedicle screw was placed by hand. At the S2 to iliac segment, an 8.5 x 60 mm screw was used and at the S1 to iliac segment, a 7.5 x 50 mm screw was used. Both screws had excellent purchase. The sacral ala was then decorticated. Next, navigated Jamshidi needles were placed, 1 into the S3 sacral ala segment and 1 into the S2 sacral ala segment. Next, a sacroplasty was performed. [employer] VertaPlex cement was mixed per solder making supervisor's standard technique in the VertaPlex cement delivery system. Under flow control conditions and continuous zoom AP fluoroscopic image guidance, the cement was delivered sequentially through the S3 Jamshidi needle, S2 Jamshidi needle, S2 iliac screw, and S1 iliac screw. A total of approximately 8 cc of cement was delivered and the patient's vital signs were stable throughout the procedure. Next, a 40 mm titanium momo was used to interconnect the 2 sacropelvic fixation screws, followed by application of noemy cap and final torque tightening to solder making supervisor's recommended technique. AP, lateral final x-rays were taken to ensure appropriate positioning of the instrumentation. The operative site was irrigated with IrriSept 450 cc, followed by 300 cc of saline. Next, fusion was performed, performing an autograft fusion at the dorsal sacral ala from S1 through S4. The bone graft material was evenly distributed both medial and lateral to the instrumentation at S1 through S4 segments on the right side, and then was overlaid with Mastergraft bioceramic synthetic. Hemostasis was excellent. At no time was there evidence of cerebrospinal fluid leakage. The lumbosacral fascial muscle layers were closed with multiple inverted, interrupted 0 Vicryl suture. The deep dermal was closed with multiple inverted, interrupted 2-0 Vicryl suture. The skin was closed running 4-0 Monocryl subcuticular suture followed by closure of skin with Dermabond Prineo, and application of Aquacel antibacterial occlusive dressing. The patient tolerated the procedure well. She was rolled to the supine position, extubated and transferred to PACU in stable condition. MD Matthias CHAUDHARI 05/19/2023 11:55 [id number] T 05/19/2023 12:35 [facility] documented in this [id number] Hospital Discharge instructions * Discharge Instructions* Shakila Ortiz RN - 05/19/2023 12:51 PM EDT GENERAL POST-OPERATIVE PATIENT INSTRUCTIONS ANESTHESIA PRECAUTIONS: A responsible adult must stay with you for at least 24 hours after surgery. You may feel light headed,, dizzy, or nauseated during this time. Do not operate a vehicle (car, bike, motorcycle, merchandising execution associate) machinery or power tools. Do not make any important decisions or drink any alcoholic beverages for 24 hours. Children should remain quiet today. No riding of bicycles, motorcycles, skateboards, playing on swings etc. Drink plenty of fluids today. Eat light, small, frequent meals today. Resume regular diet tomorrow. FOLLOW-UP: Please make an appointment with your physician for follow-up. Call your physician immediately if you have any fevers greater than 101, drainage from your wound that is not clear or looks infected, persistent bleeding, increasing abdominal pain, problems urinating, or persistent nausea/vomiting. DIET: You may eat any foods that you can tolerate. It is a good idea to eat a high fiber diet and take in plenty of fluids to prevent constipation. If you do become constipated you may want to take amild laxative or take ducolax tablets on a daily basis until your bowel habits are regular. Constipation can be very uncomfortable, along with straining, after recent surgery. ACTIVITY: You are encouraged to cough and deep breathe or use your incentive spirometer if you weregiven one, every 15-30 minutes when awake. This will help prevent respiratory complications and lowgrade fevers post-operatively if you had a general anesthetic. You are encouraged to walk and engage in light activity for the next two weeks. MEDICATIONS: Try to take narcotic medications and anti-inflammatory medications, such as ibuprofen,naprosyn, etc., with food. This will minimize stomach upset from the medication. Should you developnausea and vomiting from the pain medication, or develop a rash, please discontinue the medication and contact your physician. You should not drive, make important decisions, or operate machinery when taking narcotic pain medication. Do not take tylenol or tylenol products with narcotic medications. QUESTIONS: Please feel free to call your physician or the hospital skoog machine operator if you have any questions, and they will be glad to assist you. documented in this [id number] Note* Addendum Note - Luis M Garza MD - 05/19/2023 12:28 PM EDT Addendum created 05/19/23 1228 by Luis M Garza MD Child order released for a procedure order, Clinical Note Signed, Intraprocedure Blocks edited, LDAcreated via procedure documentation, SmartForm saved [id number] Miscellaneous Notes* Addendum Note - Luis M Garza MD - 05/19/2023 12:28 PM EDT Addendum created 05/19/238 by Luis M Garza MD Child order released for a procedure order, Clinical Note Signed, Intraprocedure Blocks edited, LDAcreated via procedure documentation, SmartForm saved documented in this [id number] Anesthesiology procedure note* Anesthesia Procedure Notes - Luis M Garza MD - 05/19/2023 12:27 PM EDTAssociated Order(s): Arterial Line Arterial Line Patient location: OR Start time: 05/19/2023 8:55 AM End time: 05/19/2023 9:00 AM Staff Anesthesiologist: Luis M Garza MD Performed by: Anesthesiologist Preanesthetic Checklist Completed: patient identified, pre-op evaluation, risks and benefits discussed, informed consent obtained, monitors and equipment checked, IV checked and timeout performed Procedure Indications: hemodynamic monitoring and frequent blood draws Final orientation: left Final location: radial Monitoring: head of partner development, pulse oximetry, heart rate and BP Sedation: general anesthesia (see MAR) Prep: ChloraPrep Local infiltration: lidocaine 1% Technique: landmarks (Palpation) Final needle: 22 G Final catheter: 20 G x 1 3/4'' Number of attempts: 1 Assessment: draws and flushes without difficulty Post procedure: taped, sterile dressing applied and EBL <10 mL Patient tolerance: patient tolerated the procedure well with no immediate complications *See MAR for medication administration [facility] Work Phone: 1(954) [phone] Surgical operation note* Anesthesia Procedure Notes - Luis M Garza MD - 05/19/2023 12:27 PM EDT Associated Order(s): Arterial Line Arterial Line Patient location: OR Start time: 05/19/2023 8:55 AM End time: 05/19/2023 9:00 AM Staff Anesthesiologist: Luis M Garza MD Performed by: Anesthesiologist Preanesthetic Checklist Completed: patient identified, pre-op evaluation, risks and benefits discussed, informed consent obtained, monitors and equipment checked, IV checked and timeout performed Procedure Indications: hemodynamic monitoring and frequent blood draws Final orientation: left Final location: radial Monitoring: head of partner development, pulse oximetry, heart rate and BP Sedation: general anesthesia (see MAR) Prep: ChloraPrep Local infiltration: lidocaine 1% Technique: landmarks (Palpation) Final needle: 22 G Final catheter: 20 G x 1 3/4'' Number of attempts: 1 Assessment: draws and flushes without difficulty Post procedure: taped, sterile dressing applied and EBL <10 mL Patient tolerance: patient tolerated the procedure well with no immediate complications *See MAR for medication administration * Anesthesia Postprocedure Evaluation - Luis M Garza MD - 05/19/2023 12:17 PM EDT Anesthesia Post Evaluation PACU Vitals 05/19/2023 1159 - 05/19/2023 1204 05/19/2023 1202 BP: 125/88 Pulse: 67 Resp: 16 SpO2: 100 % MAP (mmHg): 76 * * Refer to nursing documentation for PACU vitals * * Patient participation: patient participated Mental status: awake Pain management: adequate Anesthetic complications: no Nausea / vomiting: no Respiratory / airway status: airway patent and nasal cannula Postoperative hydration: acceptable Comment: Patient has satisfactorily recovered from her anesthetic. * Anesthesia Procedure Notes - Dmitri Perry CRNA - 05/19/2023 9:05 AM EDTAssociated Order(s): ETT Airway ETT Airway Mask ventilation: ventilated by mask Technique: direct laryngoscopy and intubating stylet Type: cuffed oral Tube size: 7 mm Final laryngoscope: Santillan 2 Location: oral Final grade: 1 Insertion attempts: 1 Placement verification: end tidal CO2 and symmetrical chest wall movement Secured at: 21 cm (measured from the teeth) Secured by: tape Bite block: soft Lip/tooth/tongue trauma: no *See MAR for medication administration * Anesthesia Preprocedure Evaluation - Luis M Garza MD - 05/19/2023 7:19 AM EDT ANESTHESIA PREPROCEDURE EVALUATION Anesthesia Plan ASA: 3 Type: general Airway: endotracheal tube Induction: intravenous Additional monitoring: arterial line and CVP Anesthetic plan and risks as outlined in the consent discussed with: patient Plan discussed with: Anesthesiologist Physical Exam Airway Mallampati: II TM Distance: >3 FB Neck ROM: full Mouth opening: >[address]: no Cardiovascular Rhythm: regular Pulmonary Breath sounds are clear to auscultation Neurological Mental Status: alert Dental Dental exam is normal and age appropriate Review of Systems / Medical History - Reviewed: patient summary, anesthesia history, nursing notes, medical history, H&P and labs /results - No history of anesthetic complications Pulmonary Positive: sleep apnea Neurological / Psychological - negative Cardiovascular Exercise tolerance: good Positive: hypertension CAD, dysrhythmias (atrial fibrillation) hyperlipidemia Gastrointestinal / Hepatic / Renal Positive: GERD and liver disease Endocrine / Musculoskeletal Positive: hypothyroidism, anemia fracture Other Positive: cancer documented in this [id number] Anesthesiology Postoperative evaluation and management note* Anesthesia Postprocedure Evaluation - Luis M Garza MD - 05/19/2023 12:17 PM EDT Anesthesia Post Evaluation PACU Vitals 05/19/2023 1159 - 05/19/2023 1204 05/19/2023 1202 BP: 125/88 Pulse: 67 Resp: 16 SpO2: 100 % MAP (mmHg): 76 * * Refer to nursing documentation for PACU vitals * * Patient participation: patient participated Mental status: awake Pain management: adequate Anesthetic complications: no Nausea / vomiting: no Respiratory / airway status: airway patent and nasal cannula Postoperative hydration: acceptable Comment: Patient has satisfactorily recovered from her anesthetic. [id number] Hospital course Narrative* Bridger Monique MD - 05/19/2023 12:09 PM EDT DISCHARGE SUMMARY Patient: Alma Echeverria Date of : 1940 Site: [facility] Provider: Sancho Woodruff MD Admit Date: 05/19/2023 Discharge Date/Time: 05/19/23 Midday Disposition: Home Clinical Summary Hospital Course: Alma Echeverria is a 82 y.o. female patient of Sancho Woodruff MD with a history of right sacral insufficiency fracture, with persistent pain despite conservative measures. On 05/19/2023 she went underwent uneventful right S1-S2 pelvic fixation and right sacroplasty. She tolerated procedurewell. She was discharged home once discharge criteria are met. Discharge Diagnoses: Right sacral insufficiency fracture. GE reflux disease. Coronary artery disease with coronary stent. Hypertension. Osteoporosis. Surgeries: 05/19/23 Right Sacral 2- Iliac Fixation and Fusion with Sacroplasty Consults: No orders of the defined types were placed in this encounter. Allergies: Codeine, Cyclobenzaprine, Ibuprofen, Latex, Lisinopril-hydrochlorothiazide, Nylon, and Adhesive tape-silicones Discharge Diet: Resume home diet Condition: Good Discharge Medications: Discharge Medications Modified Medications Details atorvastatin 10 MG tablet Commonly known as: Lipitor Take 1 (one) tablet (10 mg total) by mouth daily . Quantity: 90 tablet Medications To Continue Details Amitiza 8 MCG capsule Generic drug: lubiprostone Take 1 (one) capsule (8 mcg total) by mouth 2 (two) times a day with meals . cholecalciferol (vitamin D3) 1,000 unit tablet Take 1 (one) tablet (1,000 Units total) by mouth daily PM . dexlansoprazole 30 mg capsule Commonly known as: DEXILANT Take 1 (one) capsule (30 mg total) by mouth daily AM . diltiazem 240 MG 24 hr capsule Commonly known as: CARDIZEM CD Take 1 (one) capsule (240 mg total) by mouth daily AM . estradioL 10 mcg Tab Commonly known as: VAGIFEM Insert 1 (one) tablet (10 mcg total) into the vagina . furosemide 40 MG tablet Commonly known as: LASIX Take 1 (one) tablet (40 mg total) by mouth daily 2 TABLETS AM . levothyroxine 50 MCG tablet Commonly known as: SYNTHROID, LEVOTHROID Take 1 (one) tablet (50 mcg total) by mouth once daily AM . multivitamin with minerals tablet Take 1 (one) tablet by mouth daily PM . polyethylene glycol 17 gram powder Commonly known as: MIRALAX Take 17 (seventeen) g by mouth daily AM . propafenone 150 MG tablet Commonly known as: RYTHMOL Take 1 (one) tablet (150 mg total) by mouth 2 (two) times a day . Quantity: 60 tablet traMADol 50 mg tablet Commonly known as: ULTRAM Take 1 (one) tablet (50 mg total) by mouth 2 (two) times a day as needed . Stopped Medications apixaban 5 mg Tab Commonly known as: Eliquis Physician(s) Family Provider: Sancho Woodruff MD, Address: [address] / [place] [address] Follow Up: No follow-up provider specified. Additional Information: Follow-up neurosurgery clinic in 1 week. Do not resume Eliquis for 5 days at which time she can then started again at usual dose. Keep incision clean and dry and covered at all times. Okay to shower on 05/20/2023. No tub bathing hot tubs or swimming until seen back. Patient instructions, including activity, were given to the patient/family at discharge. Please seethe After Visit Summary in the electronic medical record for details. Time spent on discharge: < 30 minutes Completed by: Bridger Monique MD on 05/19/23, 12:09 PM documented in this [id number] Note* Brief Op Note - Bridger Monique MD - 05/19/2023 12:05 PM EDT Brief Post Operative Note Patient Name: Alma Echeverria : 1940 (82 y.o.) Date of Service: 05/19/2023 CSN: [id number] Procedure(s): Right Sacral 1-2- Iliac Fixation and Fusion with Sacroplasty Pre-Operative Diagnoses: * Sacral insufficiency fracture with delayed healing [M84.48XG] Post-Operative Diagnoses: * Sacral insufficiency fracture with delayed healing [M84.48XG] Surgeon(s) and Role: * Bridger Monique MD - Primary Anesthesiologist: Luis M Garza MD NON CDL DRIVER: Leslee Hassan CRNA; Dmitri Perry CRNA; Glendy Springer CRNA Edger Runner: Toyin Rios RN Electrotype Servicer: Delisa Oneal Machine Lead Burner: Estrella Viera, TECHNOLOGIST Scrub Person: [place], Shah, ST; Rao, Gloria J, RN Operative findings: sacral fracture Intra and immediate post-operative complications: none Type of anesthesia used: General Estimated blood loss: 250 mL Estimated urine output: 500 mL Specimen(s): * No specimens in log * Implant(s): Implant Name Type Inv. Item Serial No. Test Deskman Lot No. LRB No. Used Action SEALANT 10ML HEMOSTATIC MATRIX FAST PREP FLOSEAL - S. SEALANT 10ML HEMOSTATIC MATRIX FAST PREP FLOSEAL . bCODE [id number] Right 1 Implanted HEMOSTAT 4 X 8IN SURGICEL - S. HEMOSTAT 4 X 8IN SURGICEL . ETHICON [id number] Right 1 Implanted HEMOSTAT 2 X 4IN SURGICEL FIBRILLAR - S. HEMOSTAT 2 X 4IN SURGICEL FIBRILLAR . ETHICON [id number] Right 1 Implanted HEMOSTAT 8 X 12.5CM X 10MM SURGIFOAM GELATIN SPONGE - S. HEMOSTAT 8 X 12.5CM X 10MM SURGIFOAM GELATIN SPONGE . ETHICON [id number] Right 1 Implanted PUTTY 5CC MIKAELA DBM - [id number] Bone PUTTY 5CC MIKAELA DBM [id number] MEDTRONIC . Right 1 Implanted STRIP 10 X 2 X 0.6CM 12CC SGL MASTERGRAFT - S. Graft STRIP 10 X 2 X 0.6CM 12CC SGL MASTERGRAFT . MEDTRO J CARLOS [id number] Right 1 Implanted KIT AUTOPLEX W/VERTAPLEX HV CEMENT - S. Cement KIT AUTOPLEX W/VERTAPLEX HV CEMENT . SAMIR [id number] Right 1 Implanted TOMASZ MOMO 40MM . LOAD 19 Right 1 Implanted Fenestrated Screw 8.5 60mm . SAMIR . Right 1 Implanted Fenestrated Screw 7.5 50mm . SAMIR . Right 1 Implanted [place] Set Screw . SAMIR . Right 2 Implanted Drain(s): Urethral Catheter Non-latex 16 Fr. (Active) Wound(s): Wound 11/29/19 Surgical Wound Shoulder Right (Active) Wound 05/19/23 Surgical Wound Lumbar Spine;Thoracic Spine (Active) Wound Closure Surgical Adhesive 05/02/23 0002 Bridger Monique MD 05/19/2023 12:05 PM [id number] Procedure anesthesia Narrative* Procedure Summary Procedure Name Responsible Anesthesiologist Anesthesia Start Time Anesthesia Stop Time Right Sacral 2- Iliac Fixation and Fusion with Sacroplasty (Right: Spine Lumbar) Luis M Garza MD 05/19/23 0845 05/19/23 120 4 Events Date Time Event Comment 05/19/2023 0706 AN Equip Check 0720 0845 An Start 0845 Patient Verification 0846 An Start Data 0851 An Induction 0853 An Intubation 0901 Anesthesia Ready 0922 Quick Note ABG draw. 0932 Quick Note Prone positioni ng. 1008 Quick Note Timeout. 1152 [facility] OR 02 1158 An Extubation 1159 an stop data 1203 Handoff 1204 An Stop Meds Name Total fentaNYL 100 mcg lidocaine 2% 80 mg propofol 80 mg rocuronium 100 mg dexamethasone 8 mg ondansetron 4 mg phenylephrine 1,200 mcg sugammadex 200 mg ceFAZolin (ANCEF) IVPB 2 g (premix) 2,00 0 mg ePHEDrine 25 mg acetaminophen 1,000 mg sodium chloride 0.9% (NS) 1,200 mL albumin 5% 1,000 mL * Agents No agents on file. * Blood No blood administrations on file. Lines, Drains, and Airways Type Details Placement Removal Wound 11/29/19; 1628; Surg ical Wou; Shoulder; Right; DRESSING 4 X 10IN BORDER POST AG MEPILEX (x1), SLING ARM W/PAD LG (x1) 11/29/19 1628 by Belen Helton RN Peripheral IV Placement Date: 05/10 ; Orientation: Posterior, Right; Location: Hand; Inserted by: anesthesia 05/19/23 0000 by Candace You RN Peripheral IV Placement Date: 05/10 ; Placement Time: 0704; Orientation: Left; Location: Antecubital; Patient Tolerance: Tolerated well 05/19/23 0704 by Shakila Ortiz RN Urethral Catheter Placement Date: 05/10 ; Placement Time: 0908; Inserted by: Keagan Rios RN; Type: Non-latex; Size: 16 Fr.; Balloon Size: 10 mL; Urine Returned: Yes 05/19/23 0908 by Toyin Rios RN Wound 05/19/23; 1138; Surg ical Wou; Lumbar Spine, Thoracic Spine; Surgical Vladislav; Surgical Adhesive; Asia Perry 05/19/23 1138 by Toyin Rios RN Arterial Line Placement Date: 05/10 ; Placemnt Time: 122 (created via procedure documentation); Orientation: Left; Location: Radial; Site Prep: Chlorhexidine ; Insertion Attempts: 1; Pt Tolerance: Tolerated well 05/19/23 1227 by Luis M Garza MD ETT Placement Date: 05/10 ; Placement Time: 09 (created via procedure documentation); Mask Ventilation: Ventilated by mask; Type: Cuffed, Oral; Tube Size: 7 mm; Grade View: 1; Insertion Attempts: 1; Removal Date: 05/19/23; Removal Time: 1158 05/19/23 09 by Dmitri Perry CRNA 05/19/23 115 by Glendy Springer CRNA documented in this encounter [id number] Note* Op Note - Bridger Monique MD - 05/19/2023 10:08 AM EDT [facility] [id number] 1940 DATE 05/19/2023 OPERATIVE REPORT SURGEON BRIDGER MONIQUE MD PREOPERATIVE DIAGNOSIS Right extensive sacral alar insufficiency fracture with chronic pain. POSTOPERATIVE DIAGNOSIS Right extensive sacral alar insufficiency fracture with chronic pain. PROCEDURE Right S1, S2 iliac pelvic instrumentation, right S1, S2, S3, S4 posterior-lateral autograft fusion, right sacroplasty. ANESTHESIA General. INDICATION Alma Echeverria is an 82-year-old female who sustained an extensive insufficiency fracture of the right sacral ala extending from S1 through S4 segments. The patient is in intractable pain and has not improved with over 6 weeks of conservative therapy. She now presents for sacropelvic fixation of the fracture, and sacroplasty. PROCEDURE IN DETAIL The procedure was performed in OR #2. The patient was intubated and general anesthesia was established. An appropriate time-out was performed with the neurosurgery, anesthesiology, and nursing teams. All agreed to this patient's identity and planned procedure. After intubation and establishing general anesthesia, she was rolled in the prone position on the radiolucent Arturo spine frame, taking care to pad all pressure points. She received 2 g of Ancef at the onset of procedure for antibiotic prophylaxis. The [place] Airo intraoperative CT and navigation were used throughout the procedure to ensure appropriate trajectory of instrumentation. In addition, Cell Saver was used throughout the procedure; however, there was not sufficient blood loss to allow for spin down. The special services agent team also obtained 30 cc the platelet-poor and 2 cc of platelet-rich plasma, which were mixed with autograft that was obtained from the patient's L4 and L5 spinous processes, and 5 cc of demineralized bone matrix for bone graft purposes at the end of the procedure. First, a midline incision was made extending from L4 through S3. Points of bleeding were controlled with bipolar cautery. Monopolar cautery was then used to dissect down through the lumbosacral fascia and to expose on the right side the sacral ala from through S4 segments. Next, intraoperative navigation CT was performed with an array on the L4 spinous process. Next, sacroiliac pelvic fixation screws were placed. The [place] fenestrated screw system was used. Screws were placed 1st by drilling a supervising airplane pilot hole and then navigating a Lenke probe across the SI joint. Next, progressive under tapping was then used successively. Ball probe was used throughout placement of screws to ensure integrity of the pathway of the intended pedicle screw placement. Finally, the pedicle screw was placed by hand. At the S2 to iliac segment, an 8.5 x 60 mm screw was used and at the S1 to iliac segment, a 7.5 x 50 mm screw was used. Both screws had excellent purchase. The sacral ala was then decorticated. Next, navigated Jamshidi needles were placed, 1 into the S3 sacral ala segment and 1 into the S2 sacral ala segment. Next, a sacroplasty was performed. Samir VertaPlex cement was mixed per solder making supervisor's standard technique in the VertaPlex cement delivery system. Under flow control conditions and continuous zoom AP fluoroscopic image guidance, the cement was delivered sequentially through the S3 Jamshidi needle, S2 Jamshidi needle, S2 iliac screw, and S1 iliac screw. A total of approximately 8 cc of cement was delivered and the patient's vital signs were stable throughout the procedure. Next, a 40 mm titanium momo was used to interconnect the 2 sacropelvic fixation screws, followed by application of noemy cap and final torque tightening to solder making supervisor's recommended technique. AP, lateral final x-rays were taken to ensure appropriate positioning of the instrumentation. The operative site was irrigated with IrriSept 450 cc, followed by 300 cc of saline. Next, fusion was performed, performing an autograft fusion at the dorsal sacral ala from S1 through S4. The bone graft material was evenly distributed both medial and lateral to the instrumentation at S1 through S4 segments on the right side, and then was overlaid with Mastergraft bioceramic synthetic. Hemostasis was excellent. At no time was there evidence of cerebrospinal fluid leakage. The lumbosacral fascial muscle layers were closed with multiple inverted, interrupted 0 Vicryl suture. The deep dermal was closed with multiple inverted, interrupted 2-0 Vicryl suture. The skin was closed running 4-0 Monocryl subcuticular suture followed by closure of skin with Dermabond Prineo, and application of Aquacel antibacterial occlusive dressing. The patient tolerated the procedure well. She was rolled to the supine position, extubated and transferred to PACU in stable condition. MD Matthias CHAUDHARI 05/19/2023 11:55 [id number] T 05/19/2023 12:35 BWC/MODL [id number] Anesthesiology procedure note* Anesthesia Procedure Notes - Dmitri Perry CRNA - 05/19/2023 9:05 AM EDTAssociated Order(s): ETT Airway ETT Airway Mask ventilation: ventilated by mask Technique: direct laryngoscopy and intubating stylet Type: cuffed oral Tube size: 7 mm Final laryngoscope: Santillan 2 Location: oral Final grade: 1 Insertion attempts: 1 Placement verification: end tidal CO2 and symmetrical chest wall movement Secured at: 21 cm (measured from the teeth) Secured by: tape Bite block: soft Lip/tooth/tongue trauma: no *See MAR for medication administration [facility] Work Phone: [phone]) 877-387208-10-2023 Attending History and physical note* Bridger Monique MD - 05/19/2023 8:50 AM EDT INTERVAL HISTORY AND PHYSICAL Patient Name: Alma Echeverria Admit Date: [id number] MR #: [id number] : 1940 The H&P has been reviewed and the patient has been examined. I concur with the findings of the H&P. There are no significant changes. It is appropriate to proceed with the planned procedure. Bridger Monique MD 05/19/2023 8:50 AM Source Note - Bridger Monique MD - 05/19/2023 8:48 AM EDT Neurosurgical preoperative history and physical for procedure of 05/19/2023. Chief complaint. Axial lumbar pain and right sacral ala fracture HPI I am asked by Dr. Woodruff to provide neurosurgical evaluation consultation on Alma Echeverria. Alma is an 82-year-old female with bilateral hip pain, right side greater than left. She states that her pain is worse with sitting and is in the seat of her pants so to speak. She denies any falls or traumas. Pain started in mid December 2022 without any 1 inciting event. She then was hospitalized in January 2023 with complications from Eliquis which led her to have internal bleeding but a negative colonoscopy ultimately. She attempted therapy, but this only made her pain worse and she has had to stop. The pain is plateaued and is a constant pain when she sits in the midline of the sacral area radiating to the right sacral region. There is no radiation of pain in his lower extremities. She denies any difficulty with ambulation or weakness of her legs or giveaway weakness of her legs. She denies any change in bowel or bladder habits. MRI of lumbar spine of 12/31/2022 and MRI of the sacrum of 01/04/2023 from [facility] were independently reviewed by me on a computerized workstation, and my interpretation follows. MRI sacrum demonstrates an extensive right sacral alainsufficiency fracture involving the entire right sacral ala to the SI joint. There is no evidence of left sacral ala fracture. There is no evidence of obvious dislocation of the right sacral ala. MRI of lumbar spine demonstrates multilevel stenoses. At the L5-S1 level there is severe left and mildright foraminal stenosis and no central canal stenosis. At the L4-L5 level there is severe central canal and severe bilateral foraminal stenosis. At L3-L4 there is severe right and severe left foraminal stenosis and moderate central canal stenosis. At L2-L3 there is severe right and moderate central and moderate left foraminal stenosis. At the L1-L2 level there is bilateral severe foraminal stenosis and mild central canal stenosis. She underwent [address] Epperson but these failed to improve her. She states that she has had a shuffling gait stents her sacral fracture occurred which was approximately mid December 2022. Past medical history significant atrial fibrillation hypertension coronary artery disease. Hypothyroidism. Chronic Eliquis for stroke prevention from atrial fibrillation. Chronic cellulitis of the lower extremities Review of Systems She has a history of small bowel obstruction. She has bilateral rotator cuff disorder. She is right-handed. Severe left hip osteoarthritis, pending hip replacement at some point in future. No historyof DVT of the lower extremities. Allergies are reviewed in the MAR. Medications were reviewed in MAR. Psychosocial review. The patient lives in [facility] with her . She is a sister of one of my prior patients Briana Guevara who currently is 97 years old, and had spine surgery with me. Physical Exam Awake alert pleasant female in no obvious acute distress. She does not have a kyphosis of her thoracic or lumbar spine. Inspection of skin over the lumbosacral region reveals no areas of erythema or swelling. She does have tenderness to palpation to the right of midline of the gluteal fold consistent with the sacral ala region. BIBI test however is negative bilaterally. Straight leg raising is negative bilaterally causing form of sciatica. Power at the bilateral iliopsoas gluteal quads of hamstring and dorsi and plantarflex the feet are 5 out of 5 and equal. She does have tense pitting edemaof the bilateral lower extremities from the knee distally into the ankles. No calf tenderness to palpation. She has mild dusky erythema of the umanzor areas bilaterally. No ankle clonus. Deep tendon reflex of the biceps and patella are 1+ and symmetric. No pronator drift. She does have restriction however elevation of the humerus due to her shoulder arthropathy. Raising her arms above her head does not cause any axial lumbar pain. Lungs are clear with no wheezing. Cardiac exam reveals a grade 1 out of 6 systolic decrescendo murmur. Carotid pulses are 2+ out of 3 and equal with no carotid bruits.There is no jugular venous distention noted. No tremor of the upper or lower extremities is seen. She does ambulate with a broad waddling gait that has a short gait cycle and a shuffling type fashion. Recent and remote memory is intact. Fund of knowledge is excellent. Speech and language function is normal. Emotional content is appropriate for visit. She has no bruising over the right sacral ala that is evident today, but she does have significant tenderness to palpation of the entire right sacroiliac joint and lateral sacral ala. Impression Right sacral ala fracture, extensive, which is failed to improve with conservative therapy over 3 months. 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 Plan I discussed with the patient and her the concept of sacral plasty and the fact that I believe it is reasonable to proceed with a sacral plasty as she is now failed to improve over 3 months over conservative therapy. I did discuss with her and her the risks and benefits of sacroplasty including the possibility that this will not help, that there could be migration of cement in and around nerve roots blood vessels or even embolization to the lungs all of which could require emergency procedures such as sacral exploration and removal of cement, temporary permanent neurologic disability, CSF leak, no improvement, further fractures at other sites of the spine. After the initial clinic visit of 04/14/2023, and still no further improvement, the patient called my office and wished to proceed now with right open reduction internal fixation of the sacral fracture as well as sacroplasty and fusion. Informed consent obtained. Bridger Monique MD Office Visit on 04/14/2023 [id number] History and physical note* Bridger Monique MD - 05/19/2023 8:50 AM EDT INTERVAL HISTORY AND PHYSICAL Patient Name: Alma Echeverria Admit Date: [id number] MR #: [id number] : 1940 The H&P has been reviewed and the patient has been examined. I concur with the findings of the H&P. There are no significant changes. It is appropriate to proceed with the planned procedure. Bridger Monique MD 05/19/2023 8:50 AM Source Note - Bridger Monique MD - 05/19/2023 8:48 AM EDT Neurosurgical preoperative history and physical for procedure of 05/19/2023. Chief complaint. Axial lumbar pain and right sacral ala fracture HPI I am asked by Dr. Woodruff to provide neurosurgical evaluation consultation on Alma Echeverria. Alma is an 82-year-old female with bilateral hip pain, right side greater than left. She states that her pain is worse with sitting and is in the seat of her pants so to speak. She denies any falls or traumas. Pain started in mid December 2022 without any 1 inciting event. She then was hospitalized in January 2023 with complications from Eliquis which led her to have internal bleeding but a negative colonoscopy ultimately. She attempted therapy, but this only made her pain worse and she has had to stop. The pain is plateaued and is a constant pain when she sits in the midline of the sacral area radiating to the right sacral region. There is no radiation of pain in his lower extremities. She denies any difficulty with ambulation or weakness of her legs or giveaway weakness of her legs. She denies any change in bowel or bladder habits. MRI of lumbar spine of 12/31/2022 and MRI of the sacrum of 01/04/2023 from [facility] were independently reviewed by me on a computerized workstation, and my interpretation follows. MRI sacrum demonstrates an extensive right sacral alainsufficiency fracture involving the entire right sacral ala to the SI joint. There is no evidence of left sacral ala fracture. There is no evidence of obvious dislocation of the right sacral ala. MRI of lumbar spine demonstrates multilevel stenoses. At the L5-S1 level there is severe left and mildright foraminal stenosis and no central canal stenosis. At the L4-L5 level there is severe central canal and severe bilateral foraminal stenosis. At L3-L4 there is severe right and severe left foraminal stenosis and moderate central canal stenosis. At L2-L3 there is severe right and moderate central and moderate left foraminal stenosis. At the L1-L2 level there is bilateral severe foraminal stenosis and mild central canal stenosis. She underwent [address] Epperson but these failed to improve her. She states that she has had a shuffling gait stents her sacral fracture occurred which was approximately mid December 2022. Past medical history significant atrial fibrillation hypertension coronary artery disease. Hypothyroidism. Chronic Eliquis for stroke prevention from atrial fibrillation. Chronic cellulitis of the lower extremities Review of Systems She has a history of small bowel obstruction. She has bilateral rotator cuff disorder. She is right-handed. Severe left hip osteoarthritis, pending hip replacement at some point in future. No historyof DVT of the lower extremities. Allergies are reviewed in the MAR. Medications were reviewed in MAR. Psychosocial review. The patient lives in [facility] with her . She is a sister of one of my prior patients Briana Guevara who currently is 89 years old, and had spine surgery with me. Physical Exam Awake alert pleasant female in no obvious acute distress. She does not have a kyphosis of her thoracic or lumbar spine. Inspection of skin over the lumbosacral region reveals no areas of erythema or swelling. She does have tenderness to palpation to the right of midline of the gluteal fold consistent with the sacral ala region. BIBI test however is negative bilaterally. Straight leg raising is negative bilaterally causing form of sciatica. Power at the bilateral iliopsoas gluteal quads of hamstring and dorsi and plantarflex the feet are 5 out of 5 and equal. She does have tense pitting edemaof the bilateral lower extremities from the knee distally into the ankles. No calf tenderness to palpation. She has mild dusky erythema of the umanzor areas bilaterally. No ankle clonus. Deep tendon reflex of the biceps and patella are 1+ and symmetric. No pronator drift. She does have restriction however elevation of the humerus due to her shoulder arthropathy. Raising her arms above her head does not cause any axial lumbar pain. Lungs are clear with no wheezing. Cardiac exam reveals a grade 1 out of 6 systolic decrescendo murmur. Carotid pulses are 2+ out of 3 and equal with no carotid bruits.There is no jugular venous distention noted. No tremor of the upper or lower extremities is seen. She does ambulate with a broad waddling gait that has a short gait cycle and a shuffling type fashion. Recent and remote memory is intact. Fund of knowledge is excellent. Speech and language function is normal. Emotional content is appropriate for visit. She has no bruising over the right sacral ala that is evident today, but she does have significant tenderness to palpation of the entire right sacroiliac joint and lateral sacral ala. Impression Right sacral ala fracture, extensive, which is failed to improve with conservative therapy over 3 months. 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 Plan I discussed with the patient and her the concept of sacral plasty and the fact that I believe it is reasonable to proceed with a sacral plasty as she is now failed to improve over 3 months over conservative therapy. I did discuss with her and her the risks and benefits of sacroplasty including the possibility that this will not help, that there could be migration of cement in and around nerve roots blood vessels or even embolization to the lungs all of which could require emergency procedures such as sacral exploration and removal of cement, temporary permanent neurologic disability, CSF leak, no improvement, further fractures at other sites of the spine. After the initial clinic visit of 04/14/2023, and still no further improvement, the patient called my office and wished to proceed now with right open reduction internal fixation of the sacral fracture as well as sacroplasty and fusion. Informed consent obtained. Bridger Monique MD Office Visit on 04/14/2023 * Bridger Monique MD - 05/19/2023 8:48 AM EDT Neurosurgical preoperative history and physical for procedure of 05/19/2023. Chief complaint. Axial lumbar pain and right sacral ala fracture HPI I am asked by Dr. Woodruff to provide neurosurgical evaluation consultation on Alma Echeverria. Alma is an 82-year-old female with bilateral hip pain, right side greater than left. She states that her pain is worse with sitting and is in the seat of her pants so to speak. She denies any falls or traumas. Pain started in mid December 2022 without any 1 inciting event. She then was hospitalized in January 2023 with complications from Eliquis which led her to have internal bleeding but a negative colonoscopy ultimately. She attempted therapy, but this only made her pain worse and she has had to stop. The pain is plateaued and is a constant pain when she sits in the midline of the sacral area radiating to the right sacral region. There is no radiation of pain in his lower extremities. She denies any difficulty with ambulation or weakness of her legs or giveaway weakness of her legs. She denies any change in bowel or bladder habits. MRI of lumbar spine of 12/31/2022 and MRI of the sacrum of 01/04/2023 from [facility] were independently reviewed by me on a computerized workstation, and my interpretation follows. MRI sacrum demonstrates an extensive right sacral alainsufficiency fracture involving the entire right sacral ala to the SI joint. There is no evidence of left sacral ala fracture. There is no evidence of obvious dislocation of the right sacral ala. MRI of lumbar spine demonstrates multilevel stenoses. At the L5-S1 level there is severe left and mildright foraminal stenosis and no central canal stenosis. At the L4-L5 level there is severe central canal and severe bilateral foraminal stenosis. At L3-L4 there is severe right and severe left foraminal stenosis and moderate central canal stenosis. At L2-L3 there is severe right and moderate central and moderate left foraminal stenosis. At the L1-L2 level there is bilateral severe foraminal stenosis and mild central canal stenosis. She underwent [address] Epperson but these failed to improve her. She states that she has had a shuffling gait stents her sacral fracture occurred which was approximately mid December 2022. Past medical history significant atrial fibrillation hypertension coronary artery disease. Hypothyroidism. Chronic Eliquis for stroke prevention from atrial fibrillation. Chronic cellulitis of the lower extremities Review of Systems She has a history of small bowel obstruction. She has bilateral rotator cuff disorder. She is right-handed. Severe left hip osteoarthritis, pending hip replacement at some point in future. No historyof DVT of the lower extremities. Allergies are reviewed in the MAR. Medications were reviewed in MAR. Psychosocial review. The patient lives in [facility] with her . She is a sister of one of my prior patients Briana Guevara who currently is 89 years old, and had spine surgery with me. Physical Exam Awake alert pleasant female in no obvious acute distress. She does not have a kyphosis of her thoracic or lumbar spine. Inspection of skin over the lumbosacral region reveals no areas of erythema or swelling. She does have tenderness to palpation to the right of midline of the gluteal fold consistent with the sacral ala region. BIBI test however is negative bilaterally. Straight leg raising is negative bilaterally causing form of sciatica. Power at the bilateral iliopsoas gluteal quads of hamstring and dorsi and plantarflex the feet are 5 out of 5 and equal. She does have tense pitting edemaof the bilateral lower extremities from the knee distally into the ankles. No calf tenderness to palpation. She has mild dusky erythema of the umanzor areas bilaterally. No ankle clonus. Deep tendon reflex of the biceps and patella are 1+ and symmetric. No pronator drift. She does have restriction however elevation of the humerus due to her shoulder arthropathy. Raising her arms above her head does not cause any axial lumbar pain. Lungs are clear with no wheezing. Cardiac exam reveals a grade 1 out of 6 systolic decrescendo murmur. Carotid pulses are 2+ out of 3 and equal with no carotid bruits.There is no jugular venous distention noted. No tremor of the upper or lower extremities is seen. She does ambulate with a broad waddling gait that has a short gait cycle and a shuffling type fashion. Recent and remote memory is intact. Fund of knowledge is excellent. Speech and language function is normal. Emotional content is appropriate for visit. She has no bruising over the right sacral ala that is evident today, but she does have significant tenderness to palpation of the entire right sacroiliac joint and lateral sacral ala. Impression Right sacral ala fracture, extensive, which is failed to improve with conservative therapy over 3 months. 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 Plan I discussed with the patient and her the concept of sacral plasty and the fact that I believe it is reasonable to proceed with a sacral plasty as she is now failed to improve over 3 months over conservative therapy. I did discuss with her and her the risks and benefits of sacroplasty including the possibility that this will not help, that there could be migration of cement in and around nerve roots blood vessels or even embolization to the lungs all of which could require emergency procedures such as sacral exploration and removal of cement, temporary permanent neurologic disability, CSF leak, no improvement, further fractures at other sites of the spine. After the initial clinic visit of 04/14/2023, and still no further improvement, the patient called my office and wished to proceed now with right open reduction internal fixation of the sacral fracture as well as sacroplasty and fusion. Informed consent obtained. Bridger Monique MD Office Visit on 04/14/2023 documented in this [id number] History and physical note* Bridger Monique MD - 05/19/2023 8:48 AM EDT Neurosurgical preoperative history and physical for procedure of 05/19/2023. Chief complaint. Axial lumbar pain and right sacral ala fracture HPI I am asked by Dr. Woodruff to provide neurosurgical evaluation consultation on Alma Echeverria. Alma is an 82-year-old female with bilateral hip pain, right side greater than left. She states that her pain is worse with sitting and is in the seat of her pants so to speak. She denies any falls or traumas. Pain started in mid December 2022 without any 1 inciting event. She then was hospitalized in January 2023 with complications from Eliquis which led her to have internal bleeding but a negative colonoscopy ultimately. She attempted therapy, but this only made her pain worse and she has had to stop. The pain is plateaued and is a constant pain when she sits in the midline of the sacral area radiating to the right sacral region. There is no radiation of pain in his lower extremities. She denies any difficulty with ambulation or weakness of her legs or giveaway weakness of her legs. She denies any change in bowel or bladder habits. MRI of lumbar spine of 12/31/2022 and MRI of the sacrum of 01/04/2023 from [facility] were independently reviewed by me on a computerized workstation, and my interpretation follows. MRI sacrum demonstrates an extensive right sacral alainsufficiency fracture involving the entire right sacral ala to the SI joint. There is no evidence of left sacral ala fracture. There is no evidence of obvious dislocation of the right sacral ala. MRI of lumbar spine demonstrates multilevel stenoses. At the L5-S1 level there is severe left and mildright foraminal stenosis and no central canal stenosis. At the L4-L5 level there is severe central canal and severe bilateral foraminal stenosis. At L3-L4 there is severe right and severe left foraminal stenosis and moderate central canal stenosis. At L2-L3 there is severe right and moderate central and moderate left foraminal stenosis. At the L1-L2 level there is bilateral severe foraminal stenosis and mild central canal stenosis. She underwent [address] Epperson but these failed to improve her. She states that she has had a shuffling gait stents her sacral fracture occurred which was approximately mid December 2022. Past medical history significant atrial fibrillation hypertension coronary artery disease. Hypothyroidism. Chronic Eliquis for stroke prevention from atrial fibrillation. Chronic cellulitis of the lower extremities Review of Systems She has a history of small bowel obstruction. She has bilateral rotator cuff disorder. She is right-handed. Severe left hip osteoarthritis, pending hip replacement at some point in future. No historyof DVT of the lower extremities. Allergies are reviewed in the MAR. Medications were reviewed in MAR. Psychosocial review. The patient lives in [facility] with her . She is a sister of one of my prior patients Briana Guevara who currently is 89 years old, and had spine surgery with me. Physical Exam Awake alert pleasant female in no obvious acute distress. She does not have a kyphosis of her thoracic or lumbar spine. Inspection of skin over the lumbosacral region reveals no areas of erythema or swelling. She does have tenderness to palpation to the right of midline of the gluteal fold consistent with the sacral ala region. BIBI test however is negative bilaterally. Straight leg raising is negative bilaterally causing form of sciatica. Power at the bilateral iliopsoas gluteal quads of hamstring and dorsi and plantarflex the feet are 5 out of 5 and equal. She does have tense pitting edemaof the bilateral lower extremities from the knee distally into the ankles. No calf tenderness to palpation. She has mild dusky erythema of the umanzor areas bilaterally. No ankle clonus. Deep tendon reflex of the biceps and patella are 1+ and symmetric. No pronator drift. She does have restriction however elevation of the humerus due to her shoulder arthropathy. Raising her arms above her head does not cause any axial lumbar pain. Lungs are clear with no wheezing. Cardiac exam reveals a grade 1 out of 6 systolic decrescendo murmur. Carotid pulses are 2+ out of 3 and equal with no carotid bruits.There is no jugular venous distention noted. No tremor of the upper or lower extremities is seen. She does ambulate with a broad waddling gait that has a short gait cycle and a shuffling type fashion. Recent and remote memory is intact. Fund of knowledge is excellent. Speech and language function is normal. Emotional content is appropriate for visit. She has no bruising over the right sacral ala that is evident today, but she does have significant tenderness to palpation of the entire right sacroiliac joint and lateral sacral ala. Impression Right sacral ala fracture, extensive, which is failed to improve with conservative therapy over 3 months. 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 Plan I discussed with the patient and her the concept of sacral plasty and the fact that I believe it is reasonable to proceed with a sacral plasty as she is now failed to improve over 3 months over conservative therapy. I did discuss with her and her the risks and benefits of sacroplasty including the possibility that this will not help, that there could be migration of cement in and around nerve roots blood vessels or even embolization to the lungs all of which could require emergency procedures such as sacral exploration and removal of cement, temporary permanent neurologic disability, CSF leak, no improvement, further fractures at other sites of the spine. After the initial clinic visit of 04/14/2023, and still no further improvement, the patient called my office and wished to proceed now with right open reduction internal fixation of the sacral fracture as well as sacroplasty and fusion. Informed consent obtained. Bridger Monique MD Office Visit on 04/14/2023 [id number] Anesthesiology Preoperative evaluation and management note * Anesthesia Preprocedure Evaluation - Luis M Garza MD - 05/19/2023 7:19 AM EDT ANESTHESIA PREPROCEDURE EVALUATION Anesthesia Plan ASA: 3 Type: general Airway: endotracheal tube Induction: intravenous Additional monitoring: arterial line and CVP Anesthetic plan and risks as outlined in the consent discussed with: patient Plan discussed with: Anesthesiologist Physical Exam Airway Mallampati: II TM Distance: >3 FB Neck ROM: full Mouth opening: >[address]: no Cardiovascular Rhythm: regular Pulmonary Breath sounds are clear to auscultation Neurological Mental Status: alert Dental Dental exam is normal and age appropriate Review of Systems / Medical History - Reviewed: patient summary, anesthesia history, nursing notes, medical history, H&P and labs /results - No history of anesthetic complications Pulmonary Positive: sleep apnea Neurological / Psychological - negative Cardiovascular Exercise tolerance: good Positive: hypertension CAD, dysrhythmias (atrial fibrillation) hyperlipidemia Gastrointestinal / Hepatic / Renal Positive: GERD and liver disease Endocrine / Musculoskeletal Positive: hypothyroidism, anemia fracture Other Positive: cancer [id number] History of Present illness Narrative* Burt Vasquez CNP - 05/05/2023 9:42 AM EDT Pre-Operative H&P Assessment and Plan Sacral insufficiency fracture with delayed healing Pt scheduled to undergo a Rigt Sacral 2- Iliac Fixation and Fusion with Sacroplasty with Dr. Monique on 05/06/2023. HTN (hypertension) BP is well controlled at this office visit, 131/69. Pt has been advised to take Cardizem the morning of surgery with a small sip of water. Atrial fibrillation (HCC) Stable. NSR per EKG today. Pt has been advised to take Rythmol the morning of surgery with a small sip of water. Pt advised to follow surgeon instruction for preoperative Eliquis management. Coronary artery disease involving [place] coronary artery of [place] heart without angina pectoris History of trivial coronary disease by coronary CCTA. Pt denies any anginal type chest discomfort, lightheadedness, or palpitations at this office visit. Previous cardiology testing and notes reviewed. Dyslipidemia Pt is compliant with statin therapy- continue as prescribed. Hypothyroidism Pt is compliant with medical therapy. Continue as prescribed. GERD (gastroesophageal reflux disease) Well controlled with medical therapy. Pt has been advised to take Dexilant the morning of surgery with a small sip of water. Pre-op examination INIGUEZ score indicates a 0.5% risk of IL or cardiac arrest, intraoperatively or up to 30 days post-op. Pt denies chest pain, abnormal SOB with exertion, palpitations, syncope or near syncopal episodes, PND, or orthopnea. Pt does report pedal edema that is chronic and stable. METS less than 4 due to back pain. Per 2014 ACC/AHA guidelines, no further cardiac testing is indicated. Apfel score of 3; 61% 24-hour risk of PONV. Pt denies previous complications with anesthesia Please see BE risk assessment. Recommend hospital BE protocol with utilization of ETCO2 monitoring for patients with or at risk for BE while on IV opiates. Vitals signs are within acceptable limits for surgery. Blood work has been reviewed. EKG has been reviewed. Chest xray and MRSA culture are pending. Chronic medical conditions appear to be stable at this office visit. Pt denies any cardiopulmonary complaints. Pt would be considered an elevated, but acceptable risk for surgery. Chief Complaint Patient presents with Pre-operative Medical Risk Stratification History of Present Illness Alma Echeverria is a 82 y.o. female who presents for preoperative medical risk stratification consult at the request of Dr. Monique prior to [facility] Sacral 2- Iliac Fixation and Fusion with Sacroplasty. The patient has a past medical history that consists of anemia, atrial fibrillation, cancer, hypertension, hyperlipidemia, cirrhosis, BE, obesity, GERD, and back pain. The patient denies previous complications with anesthesia. The patient denies cardiopulmonary complaints. Previous cardiac testing and notes have been reviewed. Blood work and EKG reviewed. Chest xray and MRSA culture are pending. Pt has been given preoperative medication instructions. Please see below regarding status of active medical conditions and assessment and plan regarding details of preoperative medical risk stratification. Past Medical History: Diagnosis Date Abdominal pain Anemia Arm numbness Arm weakness Arthritis Atrial fibrillation (HCC) [place] esophagus Cataract Endometrial cancer (HCC) 1970 uterine ca Frequent UTI History of blood transfusion HLD (hyperlipidemia) Hypertension Leg numbness Leg weakness Liver cirrhosis secondary to nonalcoholic steatohepatitis (MATTHEW) (HCC) Sleep apnea, obstructive NO CPAP - DUE TO WEIGHT LOSS Squamous cell skin cancer Tongue irritation Uterine mass Reportedly benign Past Medical History Pertinent Negatives: Diagnosis Date Noted Breast cancer (HCC) 10/08/2019 Breast injury 10/08/2019 Colon cancer (HCC) 10/08/2019 Hormone replacement therapy (postmenopausal) 10/08/2019 Inverted nipple 10/08/2019 Ovarian cancer (HCC) 10/08/2019 Past Surgical History: Procedure Laterality Date APPENDECTOMY ARTHROPLASTY SHOULDER REVERSE Right 11/29/2019 Procedure: Reverse right total shoulder replacement; Surgeon: Dada Hathaway MD; Location: Main OR; Service: Orthopedic CATARACTS Bilateral CHOLECYSTECTOMY EXPLORATORY LAPAROTOMY N/A 07/29/2016 Procedure: EXPLORATORY LAPAROTOMY LYSIS OF ADHESION ; Surgeon: Smooth Sarabia MD; Location: [facility] [place] Main OR; Service: FOOT FUSION Left HYSTERECTOMY OOPHORECTOMY RADIATION uterine ca TONSILLECTOMY TOTAL HIP ARTHROPLASTY Right TOTAL KNEE ARTHROPLASTY Bilateral TUMOR EXCISION NEAR OVARIES VEIN LIGATION Left LEG Social History Tobacco Use Smoking status: Never Passive exposure: Never Smokeless tobacco: Never Substance Use Topics Alcohol use: Not Currently Comment: a glass of wine evry [facility] Family History Problem Relation Age of Onset Pancreatic cancer Mother Stroke Father Mitral valve prolapse Sister Brain cancer Sister 60 Colon cancer Sister Uterine cancer Sister Colon cancer Sister 70 Heart attack Brother Stroke Brother Coronary artery disease Brother Other Brother Throat cancer Brother Cervical cancer Daughter Multiple myeloma Daughter Other (Other) Son COVID Cancer Son Pneumonia Son Prior to Admission medications taking for visit date 05/05/23 Medication Sig Taking? Discontinued? AMITIZA 8 mcg capsule Take 1 (one) capsule (8 mcg total) by mouth 2 (two) times a day with meals . Yes apixaban (Eliquis) 5 mg Tab One bid . Patient taking differently: BID . Yes atorvastatin (Lipitor) 10 MG tablet Take 1 (one) tablet (10 mg total) by mouth daily . Patient taking differently: Take 1 (one) tablet (10 mg total) by mouth daily PM . Yes cholecalciferol, vitamin D3, 1,000 unit tablet Take 1 (one) tablet (1,000 Units total) by mouth daily PM . Yes dexlansoprazole (DEXILANT) 30 mg capsule Take 1 (one) capsule (30 mg total) by mouth daily AM . Yes diltiazem (CARDIZEM CD) 240 MG 24 hr capsule Take 1 (one) capsule (240 mg total) by mouth daily AM . Yes estradioL (VAGIFEM) 10 mcg Tab Insert 1 (one) tablet (10 mcg total) into the vagina . Yes furosemide (LASIX) 40 MG tablet Take 1 (one) tablet (40 mg total) by mouth daily 2 TABLETS AM . Yes levothyroxine (SYNTHROID, LEVOTHROID) 50 MCG tablet Take 1 (one) tablet (50 mcg total) by mouth once daily AM . Yes multivitamin with minerals tablet Take 1 (one) tablet by mouth daily PM . Yes polyethylene glycol (MIRALAX) 17 gram powder Take 17 (seventeen) g by mouth daily AM . Yes propafenone (RYTHMOL) 150 MG tablet Take 1 (one) tablet (150 mg total) by mouth 2 (two) times a day. Yes traMADoL (ULTRAM) 50 mg tablet Take 1 (one) tablet (50 mg total) by mouth 2 (two) times a day as needed . Yes aspirin-calcium carbonate 81 mg-300 mg calcium(777 mg) Tab Take 1 tablet by mouth daily . Yes Allergies Allergen Reactions Codeine Other (See Comments) and Unknown skin crawling Other reaction(s): Other (See Comments) skin crawling Nausea nausea skin crawling skin crawling Other reaction(s): Other (See Comments) skin crawling Nausea Cyclobenzaprine Other (See Comments) AND OTHER MUSCLE RELAXERS AND OTHER MUSCLE RELAXERS Ibuprofen Other (See Comments), GI Intolerance, Nausea Only and Unknown Upset stomach Other reaction(s): Nausea Only Other reaction(s): Other (See Comments) Upset stomach Upset stomach Upset stomach Other reaction(s): Nausea Only Other reaction(s): Other (See Comments) Upset stomach Latex Lisinopril-Hydrochlorothiazide Nylon Adhesive Tape-Silicones Rash Review of Systems Constitution: (negative) HENT: abnormal dentition Eyes: (negative) Respiratory: (negative) Cardiovascular: leg swelling (chronic. stable.) - Exercise capacity: Less than 4 METS Gastrointestinal: (negative) Genitourinary: (negative) Musculoskeletal: - Back pain Skin: (negative) Neurological: (negative) Hematological: (negative) Physical Exam BP 131/69 Pulse 71 Ht 4' 10 Wt 67.1 kg (148 lb) Comment: verbal SpO2 96% BMI 30.93 kg/m Constitutional: She is oriented to person, place, and time. She appears well developed and well-nourished. Skin: Skin is warm, dry and intact. Eyes: Conjunctivae and EOM are normal. Pupils are equal, round, and reactive to light. HENT: Right Ear: External ear normal. Left Ear: External ear normal. Nose: Nose normal. Mouth/Throat: Abnormal dentition. Neck: Normal range of motion. No tracheal deviation present. Cardiovascular: Normal rate and regular rhythm. Pulmonary/Chest: Effort normal and breath sounds normal. Abdominal: Soft. no tenderness Musculoskeletal: Normal range of motion. She exhibits edema (mild edema to b/l lower extremities). Neurological: She is alert and oriented to person, place, and time. A sensory deficit is present. Coordination abnormal. Psychiatric: She has a normal mood and affect. Her behavior is normal. Cognition and memory are normal. Data Preprocedure Sleep Apnea Assessment - High Risk (3/) Sleep Apnea in the patient's Active Problem List or Medical History: yes 1. History of apparent airway obstruction during sleep: (1 point for this category) No data recorded 2. Somnolence of the patient: (1 point for this category) No data recorded 3. Predisposing physician characteristics: (1 point for this category, 2 points if the BMI ? 40) BMI (Calculated): 30.9 Neck Circumference (inches): 13.5 inches Recent Results (from the past 1825 days) NM MYOCARDIAL PERFUSION MULTI SPECT 11/20/2019 (Final) Status: Normal Narrative Nuclear Report Patient: [place] [facility] Rec#: [id number] (Age): 1940(78y) Height: Study Date: 11/20/2019 Weight: Room#: BSA: Type: Outpatient Loc: Sex: F Indications: -Pre-op Cardiovascular Exam - Checklists: -Patient verbally identified self -Patient consent obtained in lab -Procedure verified and explained to patient -Medication Reconciliation completed. -Discharge instructions given Nuclear Cardiology Conclusion: Probably normal with Tc-99m tetrofosmin imaging. Normal LV size. Global left ventricular systolic function was normal, with an EF of 90%. In addition, there was normal wall motion. There was a small, completely reversible, mid to basal- anterior defect associated with normal wall motion. This defect was consistent with Ischemia or breast attenuation. Conclusions : Probably normal with Tc-99m tetrofosmin imaging.Limitations and artifact were due to breast tissue.Global left ventricular systolic function was normal, with an EF of 90%.There was a small, completely reversible, mid to basal- anterior defect associated with normal wall motion.This defect was consistent with Ischemia or breast attenuation. Baseline ECG: Normal sinus rhythm. Resting ECG sinus rhythm. Tolerated lexiscan well, denies CP with medication. Pharmacologic Protocol: - Regadenoson 0.4mg IV Bolus was given over 10-20 seconds. - Tolerated Medication Infusion. Hemodynamics REST STRESS RECOVERY SBP 149 mmHg 143 mmHg 137 mmHg DBP 94 mmHg 91 mmHg 88 mmHg HR 63 bpm 93 bpm 80 bpm %MPHR 65 % Imaging Protocol: This was a gated SPECT myocardial perfusion imaging study. For both rest and stress images patient had right arm down towards side of abdomen due to bad shoulder. Left arm was above head as normal for imaging. A one day rest-stress imaging protocol was followed using Tc-99m tetrofosmin (Puuiloview) injected intravenously. For the rest portion of the study, 9.39 mCi of the radiopharmaceutical was administered at 11/20/2019 08:15:00. Rest imaging was performed at 09:15:00. For the stress portion of the study, 27 mCi was administered at 11/20/2019 10:00:00. Stress imaging was performed at 11:00:00. Perfusion Interpretation: The left ventricular cavity size was normal under post stress conditions. The left ventricular cavity size was normal under rest conditions. TID Ratio 0.83. There was a small, reversible defect in the basal anterior, mid anterior segment(s). The extent of this perfusion defect was mild. Attenuation correction was applied to this study which normalized the defects in the previously noted segment(s). Wall Motion Interpretation: The patient's calculated post stress LVEF was 90%. The patient's end diastolic volume was 51ml. The patient's end systolic volume was 5ml. Gated imaging at both post-stress and rest conditions demonstrated normal wall motion. Study Limitations: The overall quality of the study is adequate. There was no lung uptake of the radiopharmaceutical. Limitations and artifact were due to breast tissue. Nuclear Doctor Interpreted Study and Electronically signed at 11/20/2019 12:29:57 by: Haroon Quintanilla MD Recent Results (from the past 1825 days) XR LUMBAR SPINE STANDARD WITH FLEX/EXT 4+ VIEWS 11/29/2022 (Final) Status: Normal Narrative EXAMINATION: XR LUMBAR SPINE STANDARD WITH FLEX/EXT 4+ VIEWS HISTORY: Pain Injury/Trauma or Illness?:Illness/Other How long have you had these symptoms (acute/chronic)?:Acute Reason for exam?:lumbar and right hip pain, difficulty stading straight or extension History of cancer?:unk Surgeries, chemotherapy, or radiation?:THR Right R52 Pain COMPARISON: 06/25/2019 TECHNIQUE: Frontal, lateral, flexion, extension, spot radiographs of the lumbar spine. FINDINGS: Anatomy: 5 [id number] lumbar segments. Increased lumbar levoconvex curvature measuring 14 degrees. Bones: No acute fracture or dislocation. Slightly progressed mild to moderate T12 compression deformity. New since 2018 although more chronic appearing mild to moderate L3 and L4 compression deformities. No significant retropulsion. No suspicious lytic or sclerotic lesion. Moderate 2 severe L3-S1 facet hypertrophy. Degenerative grade 1 retrolisthesis of L1 on L2 and L2 on 3. Additional degenerative grade 1 retrolisthesis of L3 on L4 and anterolisthesis of L4 on L5, the former of which resolves on flexion (L3-L4 retrolisthesis). Moderate disc and endplate degeneration throughout the thoracic levels. Other: Cholecystectomy. Right total hip arthroplasty. Impression 1. Overall moderate to severe lumbar spondylosis with suggested instability at the L3-L4 level. 2. New since 2018 although chronic appearing mild to moderate L3 and L4 compression fractures; remote T12 compression deformity slightly progressed as well. Workstation ID: [id number] documented in this [id number] Evaluation + Plan note* Assessment & Plan Note - Burt Vasquez CNP - 05/05/2023 9:37 AM EDT Associated Problem(s): Pre-op examination INIGUEZ score indicates a 0.5% risk of IL or cardiac arrest, intraoperatively or up to 30 days post-op. Pt denies chest pain, abnormal SOB with exertion, palpitations, syncope or near syncopal episodes, PND, or orthopnea. Pt does report pedal edema that is chronic and stable. METS less than 4 due to back pain. Per 2014 ACC/AHA guidelines, no further cardiac testing is indicated. Apfel score of 3; 61% 24-hour risk of PONV. Pt denies previous complications with anesthesia Please see BE risk assessment. Recommend hospital BE protocol with utilization of ETCO2 monitoring for patients with or at risk for BE while on IV opiates. Vitals signs are within acceptable limits for surgery. Blood work has been reviewed. EKG has been reviewed. Chest xray and MRSA culture are pending. Chronic medical conditions appear to be stable at this office visit. Pt denies any cardiopulmonary complaints. Pt would be considered an elevated, but acceptable risk for surgery. [id number] Miscellaneous Notes* Assessment & Plan Note - Burt Vasquez CNP - 05/05/2023 9:37 AM EDTAssociated Problem(s): Pre-op examination INIGUEZ score indicates a 0.5% risk of IL or cardiac arrest, intraoperatively or up to 30 days post-op. Pt denies chest pain, abnormal SOB with exertion, palpitations, syncope or near syncopal episodes, PND, or orthopnea. Pt does report pedal edema that is chronic and stable. METS less than 4 due to back pain. Per 2014 ACC/AHA guidelines, no further cardiac testing is indicated. Apfel score of 3; 61% 24-hour risk of PONV. Pt denies previous complications with anesthesia Please see BE risk assessment. Recommend hospital BE protocol with utilization of ETCO2 monitoring for patients with or at risk for BE while on IV opiates. Vitals signs are within acceptable limits for surgery. Blood work has been reviewed. EKG has been reviewed. Chest xray and MRSA culture are pending. Chronic medical conditions appear to be stable at this office visit. Pt denies any cardiopulmonary complaints. Pt would be considered an elevated, but acceptable risk for surgery. * Assessment & Plan Note - Burt Vasquez CNP - 05/05/2023 9:34 AM EDT Associated Problem(s): GERD (gastroesophageal reflux disease) Well controlled with medical therapy. Pt has been advised to take Dexilant the morning of surgery with a small sip of water. * Assessment & Plan Note - Burt Vasquez CNP - 05/05/2023 9:27 AM EDT Associated Problem(s): Hypothyroidism Pt is compliant with medical therapy. Continue as prescribed. * Assessment & Plan Note - Burt Vasquez CNP - 05/05/2023 9:27 AM EDT Associated Problem(s): Dyslipidemia Pt is compliant with statin therapy- continue as prescribed. * Assessment & Plan Note - Burt Vasquez CNP - 05/05/2023 9:16 AM EDT Associated Problem(s): Coronary artery disease involving [place] coronary artery of [place] heart without angina pectoris History of trivial coronary disease by coronary CCTA. Pt denies any anginal type chest discomfort, lightheadedness, or palpitations at this office visit. Previous cardiology testing and notes reviewed. * Assessment & Plan Note - Burt Vasquez CNP - 05/05/2023 9:11 AM EDT Associated Problem(s): Atrial fibrillation (HCC) Stable. NSR per EKG today. Pt has been advised to take Rythmol the morning of surgery with a small sip of water. Pt advised to follow surgeon instruction for preoperative Eliquis management. * Assessment & Plan Note - Burt Vasquez CNP - 05/05/2023 9:10 AM EDT Associated Problem(s): HTN (hypertension) BP is well controlled at this office visit, 131/69. Pt has been advised to take Cardizem the morning of surgery with a small sip of water. * Assessment & Plan Note - Burt Vasquez CNP - 05/05/2023 9:05 AM EDT Associated Problem(s): Sacral insufficiency fracture with delayed healing Pt scheduled to undergo a Rigt Sacral 2- Iliac Fixation and Fusion with Sacroplasty with Dr. Monique on 05/06/2023. documented in this [id number] Evaluation + Plan note* Assessment & Plan Note - Burt Vasquez CNP - 05/05/2023 9:34 AM EDT Associated Problem(s): GERD (gastroesophageal reflux disease) Well controlled with medical therapy. Pt has been advised to take Dexilant the morning of surgery with a small sip of water. [id number] Evaluation + Plan note* Assessment & Plan Note - Burt Vasquez CNP - 05/05/2023 9:27 AM EDTAssociated Problem(s): Hypothyroidism Pt is compliant with medical therapy. Continue as prescribed. [id number] Evaluation + Plan note* Assessment & Plan Note - Burt Vasquez CNP - 05/05/2023 9:27 AM EDTAssociated Problem(s): Dyslipidemia Pt is compliant with statin therapy- continue as prescribed. [id number] Evaluation + Plan note* Assessment & Plan Note - Burt Vasquez CNP - 05/05/2023 9:16 AM EDTAssociated Problem(s): Coronary artery disease involving [place] coronary artery of [place] heart without angina pectoris History of trivial coronary disease by coronary CCTA. Pt denies any anginal type chest discomfort, lightheadedness, or palpitations at this office visit. Previous cardiology testing and notes reviewed. [id number] Evaluation + Plan note* Assessment & Plan Note - Burt Vasquez CNP - 05/05/2023 9:11 AM EDTAssociated Problem(s): Atrial fibrillation (HCC) Stable. NSR per EKG today. Pt has been advised to take Rythmol the morning of surgery with a small sip of water. Pt advised to follow surgeon instruction for preoperative Eliquis management. [id number] Evaluation + Plan note* Assessment & Plan Note - Burt Vasquez CNP - 05/05/2023 9:10 AM EDTAssociated Problem(s): HTN (hypertension) BP is well controlled at this office visit, 131/69. Pt has been advised to take Cardizem the morning of surgery with a small sip of water. [id number] Evaluation + Plan note* Assessment & Plan Note - Burt Vasquez CNP - 05/05/2023 9:05 AM EDTAssociated Problem(s): Sacral insufficiency fracture with delayed healing Pt scheduled to undergo a Rigiht Sacral 2- Iliac Fixation and Fusion with Sacroplasty with Dr. Monique on 05/06/2023. [id number] Instructions* Patient Instructions* Burt Vasquez CNP - 05/05/2023 8:18 AM EDT Preoperative Medication Instructions In preparation for surgery please continue all of your current medications with the following changes: Active Home Medications Medication Sig Take Last Dose On Take Morning of Surgery Comment(s) AMITIZA 8 mcg capsule Take 1 (one) capsule (8 mcg total) by mouth 2 (two) times a day with meals . apixaban (Eliquis) 5 mg Tab One bid . (Patient taking differently: BID .) Follow surgeon instruction atorvastatin (Lipitor) 10 MG tablet Take 1 (one) tablet (10 mg total) by mouth daily . (Patient taking differently: Take 1 (one) tablet (10 mg total) by mouth daily PM .) cholecalciferol, vitamin D3, 1,000 unit tablet Take 1 (one) tablet (1,000 Units total) by mouth daily PM . dexlansoprazole (DEXILANT) 30 mg capsule Take 1 (one) capsule (30 mg total) by mouth daily AM . Yes diltiazem (CARDIZEM CD) 240 MG 24 hr capsule Take 1 (one) capsule (240 mg total) by mouth daily AM . Yes estradioL (VAGIFEM) 10 mcg Tab Insert 1 (one) tablet (10 mcg total) into the vagina . furosemide (LASIX) 40 MG tablet Take 1 (one) tablet (40 mg total) by mouth daily 2 TABLETS AM . levothyroxine (SYNTHROID, LEVOTHROID) 50 MCG tablet Take 1 (one) tablet (50 mcg total) by mouth once daily AM . Yes multivitamin with minerals tablet Take 1 (one) tablet by mouth daily PM . polyethylene glycol (MIRALAX) 17 gram powder Take 17 (seventeen) g by mouth daily AM . propafenone (RYTHMOL) 150 MG tablet Take 1 (one) tablet (150 mg total) by mouth 2 (two) times a day. Yes traMADoL (ULTRAM) 50 mg tablet Take 1 (one) tablet (50 mg total) by mouth 2 (two) times a day as needed . STOP ( medications that contain aspirin, such as Brittany Kingsley, Pepto-Bismol, Anacin), antiinflammatory medications such as Advil, Motrin, Ibuprofen, Naproxen, Aleve, Brittany Kingsley, Pepto-Bismol, Anacin, Diclofenac, Voltaren, Daypro, Etodolac, Ketoprofen, Piroxicam, Relafen, Nabumetone, etc. Also disc ontinue Vitamin C, Vitamin E, Theodosia-3 Fatty Acid, Fish Oil or Lovaza, and all herbal medications ASDIRECTED BY SURGEON. Tylenol (acetaminophen) is acceptable(unless you have an allergy to this medication ), but be careful to follow the label directions and do not use with other pain medications. On the morning of surgery, with as little water as possible, ONLY take the medications listed abovein the column Take the morning of surgery. If you are using Eye Drops or Inhalers, please bring them to the hospital. Patient Instructions for [facility]: Prior to surgery: Surgeon's office will contact you with the scheduled time of your surgery. You may use the Pharmacy Tech parking available at the Main Entrance One family member may accompany you back into the Pre-Op Area. Do not eat or drink anything after midnight or as directed, including gum, mints, and cough drops. No smoking after midnight. No chewing tobacco after midnight. No alcohol 24 hours prior to your surgery. Please take any medications you have been instructed to take the morning of your surgery with smallsips of water. Please be sure to wear comfortable, appropriate clothing. Please remove all jewelry and piercing's, including wedding rings. Leave all valuable items at home. Shower using anti-bacterial soap or as advised by your Surgeon's office Do not apply any makeup or lotions. Remove all nail angolan for surgeries involving extremities. Please remember to bring both your insurance card and a photo ID with you on the day of surgery. After your surgery: If you are having outpatient surgery - you must have a licensed car driver to take you home. The expectation is that this car driver will remain at the hospital for the duration of your procedure. You are advised to have a family member with you for at least 24 hours after being under Anesthesia. If you have sleep apnea and have a CPAP/BIPAP mask, please bring it with you the day of surgery. documented in this [id number] Evaluation + Plan note* Assessment & Plan Note - Wang Borges MD - 04/25/2023 7:10 PM EDT Associated Problem(s): Dyslipidemia Continue atorvastatin 10 mg daily with a target LDL of 70. We have previously discussed discontinuing fish oil given increased bleeding risk [id number] Evaluation + Plan note* Assessment & Plan Note - Wang Borges MD - 04/25/2023 7:10 PM EDTAssociated Problem(s): Coronary artery disease involving [place] coronary artery of [place] heart without angina pectoris History of trivial coronary disease by coronary CCTA. No aspirin given chronic Eliquis use and risk-benefit ratio in an 82-year-old. Continue statin. [id number] Evaluation + Plan note* Assessment & Plan Note - Wang Borges MD - 04/25/2023 7:10 PM EDTAssociated Problem(s): HTN (hypertension) Blood pressure 139/86 is appropriate for an 82-year-old on oral anticoagulation. Continue Cardizem CD 240 mg daily, no changes [id number] Miscellaneous Notes* Assessment & Plan Note - Wang Borges MD - 04/25/2023 7:10 PM EDTAssociated Problem(s): Dyslipidemia Continue atorvastatin 10 mg daily with a target LDL of 70. We have previously discussed discontinuing fish oil given increased bleeding risk * Assessment & Plan Note - Wang Borges MD - 04/25/2023 7:10 PM EDT Associated Problem(s): Coronary artery disease involving [place] coronary artery of [place] heart without angina pectoris History of trivial coronary disease by coronary CCTA. No aspirin given chronic Eliquis use and risk-benefit ratio in an 82-year-old. Continue statin. * Assessment & Plan Note - Wang Borges MD - 04/25/2023 7:10 PM EDT Associated Problem(s): HTN (hypertension) Blood pressure 139/86 is appropriate for an 82-year-old on oral anticoagulation. Continue Cardizem CD 240 mg daily, no changes * Assessment & Plan Note - Wang Borges MD - 04/25/2023 7:09 PM EDT Associated Problem(s): Atrial fibrillation (HCC) In sinus rhythm today on propafenone 150 mg twice daily. I did review that the appropriate dose forher based on her age, weight and renal function was 5 mg twice daily of Eliquis. I will correct that. documented in this [id number] Evaluation + Plan note* Assessment & Plan Note - Wang Borges MD - 04/25/2023 7:09 PM EDT Associated Problem(s): Atrial fibrillation (HCC) In sinus rhythm today on propafenone 150 mg twice daily. I did review that the appropriate dose forher based on her age, weight and renal function was 5 mg twice daily of Eliquis. I will correct that. [id number] Telephone encounter Note* Telephone Encounter - Jonas Johnston MA - 04/18/2023 2:18 PM EDT Received refill request for atorvastatin 10 mg every day /. Pt's last OV was 04/11/23. Follow up is due yearly thanks. [id number] Miscellaneous Notes* Telephone Encounter - Jonas Johnston MA - 04/18/2023 2:18 PM EDT Received refill request for atorvastatin 10 mg every day . Pt's last OV was 04/11/23. Follow up is due yearly thanks. documented in this [id number] History of Present illness Narrative* Bridger Monique MD - 04/14/2023 3:25 PM EDT Chief Complaint Patient presents with Back Pain Patient presents today with a diagnosis of lumbar neuritis and DDD lumbosacral fracture. Pain is located in low back and goes to bilateral hips. Axial lumbar pain and right sacral ala fracture HPI I am asked by Dr. Woodruff to provide neurosurgical evaluation consultation on Alma Echeverria. Alma is an 82-year-old female with bilateral hip pain, right side greater than left. She states that her pain is worse with sitting and is in the seat of her pants so to speak. She denies any falls or traumas. Pain started in mid December 2022 without any 1 inciting event. She then was hospitalized in January 2023 with complications from Eliquis which led her to have internal bleeding but a negative colonoscopy ultimately. She attempted therapy, but this only made her pain worse and she has had to stop. The pain is plateaued and is a constant pain when she sits in the midline of the sacral area radiating to the right sacral region. There is no radiation of pain in his lower extremities. She denies any difficulty with ambulation or weakness of her legs or giveaway weakness of her legs. She denies any change in bowel or bladder habits. MRI of lumbar spine of 12/31/2022 and MRI of the sacrum of 01/04/2023 from [facility] were independently reviewed by me on a computerized workstation, and my interpretation follows. MRI sacrum demonstrates an extensive right sacral alainsufficiency fracture involving the entire right sacral ala to the SI joint. There is no evidence of left sacral ala fracture. There is no evidence of obvious dislocation of the right sacral ala. MRI of lumbar spine demonstrates multilevel stenoses. At the L5-S1 level there is severe left and mildright foraminal stenosis and no central canal stenosis. At the L4-L5 level there is severe central canal and severe bilateral foraminal stenosis. At L3-L4 there is severe right and severe left foraminal stenosis and moderate central canal stenosis. At L2-L3 there is severe right and moderate central and moderate left foraminal stenosis. At the L1-L2 level there is bilateral severe foraminal stenosis and mild central canal stenosis. She underwent [address] Epperson but these failed to improve her. She states that she has had a shuffling gait stents her sacral fracture occurred which was approximately mid December 2022. Past medical history significant atrial fibrillation hypertension coronary artery disease. Hypothyroidism. Chronic Eliquis for stroke prevention from atrial fibrillation. Chronic cellulitis of the lower extremities Review of Systems She has a history of small bowel obstruction. She has bilateral rotator cuff disorder. She is right-handed. Severe left hip osteoarthritis, pending hip replacement at some point in future. No historyof DVT of the lower extremities. Allergies are reviewed in the MAR. Medications were reviewed in MAR. Psychosocial review. The patient lives in [facility] with her . She is a sister of one of my prior patients Briana Guevara who currently is 89 years old, and had spine surgery with me. Physical Exam Awake alert pleasant female in no obvious acute distress. She does not have a kyphosis of her thoracic or lumbar spine. Inspection of skin over the lumbosacral region reveals no areas of erythema or swelling. She does have tenderness to palpation to the right of midline of the gluteal fold consistent with the sacral ala region. BIBI test however is negative bilaterally. Straight leg raising is negative bilaterally causing form of sciatica. Power at the bilateral iliopsoas gluteal quads of hamstring and dorsi and plantarflex the feet are 5 out of 5 and equal. She does have tense pitting edemaof the bilateral lower extremities from the knee distally into the ankles. No calf tenderness to palpation. She has mild dusky erythema of the umanzor areas bilaterally. No ankle clonus. Deep tendon reflex of the biceps and patella are 1+ and symmetric. No pronator drift. She does have restriction however elevation of the humerus due to her shoulder arthropathy. Raising her arms above her head does not cause any axial lumbar pain. Lungs are clear with no wheezing. Cardiac exam reveals a grade 1 out of 6 systolic decrescendo murmur. Carotid pulses are 2+ out of 3 and equal with no carotid bruits.There is no jugular venous distention noted. No tremor of the upper or lower extremities is seen. She does ambulate with a broad waddling gait that has a short gait cycle and a shuffling type fashion. Recent and remote memory is intact. Fund of knowledge is excellent. Speech and language function is normal. Emotional content is appropriate for visit. Impression Right sacral ala fracture, extensive, which is failed to improve with conservative therapy over 3 months. 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 Plan I discussed with the patient and her the concept of sacral plasty and the fact that I believe it is reasonable to proceed with a sacral plasty as she is now failed to improve over 3 months over conservative therapy. I did discuss with her and her the risks and benefits of sacroplasty including the possibility that this will not help, that there could be migration of cement in and around nerve roots blood vessels or even embolization to the lungs all of which could require emergency procedures such as sacral exploration and removal of cement, temporary permanent neurologic disability, CSF leak, no improvement, further fractures at other sites of the spine. She is uncertain asto whether or not she wished to proceed with sacral plasty of the right sacral ala, and she is welcome to think about this and call me at any time with further follow-up questions or desire to schedule. Bridger Monique MD documented in this [id number] History of Present illness Narrative* Wang Borges MD - 04/13/2023 7:58 AM EDT Interventional Cardiology Clinic Follow-up Heart & Vascular [facility] 04/11/2023 Wang Borges MD [address] [facility] [address] Patient: Alma Echeverria Date of : 1940 (82 y.o.) PCP: Sancho Woodruff MD Assessment & Plan Atrial fibrillation (HCC) In sinus rhythm today on propafenone 150 mg twice daily. I did review that the appropriate dose forher based on her age, weight and renal function was 5 mg twice daily of Eliquis. I will correct that. HTN (hypertension) Blood pressure 139/86 is appropriate for an 82-year-old on oral anticoagulation. Continue Cardizem CD 240 mg daily, no changes Coronary artery disease involving [place] coronary artery of [place] heart without angina pectoris History of trivial coronary disease by coronary CCTA. No aspirin given chronic Eliquis use and risk-benefit ratio in an 82-year-old. Continue statin. Dyslipidemia Continue atorvastatin 10 mg daily with a target LDL of 70. We have previously discussed discontinuing fish oil given increased bleeding risk Follow-up: Return in about 3 months (around 07/12/2023) for tele. Chief Complaint: Follow-up (8 month follow up visit) Subjective History of Present Illness: Alma Echeverria is a 82 y.o. female who comes in today for routine cardiac follow-up. She feels that she has been having some issues with intermittent shortness of breath. She also feels that she has had some intermittent atrial fibrillation and correlates with his shortness of breath, perhaps 3 days over the last 1 week with heart rates in the 120s to 130s. She tells me home blood pressures been in the 120/80 range. We did review her med list and it appears that her Pradaxa was changed to Eliquis and it looks like the dose has been changed from 5 mg twice daily down to 2.5 mg twice daily. Heart is regular rate and rhythm. Lungs are clear. She has left greater than right varicose veins. EKG today shows sinus rhythm with appropriate intervals. Objective Tobacco Use Smoking Status Never Passive exposure: Never Smokeless Tobacco Never ECG 12 lead Final Result by Nayeli Chapman MA (04/11/2023 1357) Echocardiogram complete Final Result by Haroon Quintanilla MD (07/29/2016 1048) CT CCTA Heart With And Without Contrast Final Result by Andrew Marie DO (02/12/20202036) CCTA Heart (Clinical Quality Assurance Specialist read) Final Result by Chante Oliva MD (02/12/2020 1035) HOME Medications: Patient's Medications New Prescriptions APIXABAN (ELIQUIS) 5 MG TAB One bid . Previous Medications AMITIZA 8 MCG CAPSULE Take 1 (one) capsule (8 mcg total) by mouth 2 (two) times a day with meals . ASPIRIN-CALCIUM CARBONATE 81 MG-300 MG CALCIUM(777 MG) TAB Take 1 tablet by mouth daily . CHOLECALCIFEROL, VITAMIN D3, 1,000 UNIT TABLET Take 1 (one) tablet (1,000 Units total) by mouth daily . DEXLANSOPRAZOLE (DEXILANT) 30 MG CAPSULE Take 1 (one) capsule (30 mg total) by mouth daily . DILTIAZEM (CARDIZEM CD) 240 MG 24 HR CAPSULE Take 1 (one) capsule (240 mg total) by mouth daily . ESTRADIOL (VAGIFEM) 10 MCG TAB Insert 1 (one) tablet (10 mcg total) into the vagina . FUROSEMIDE (LASIX) 40 MG TABLET Take 1 (one) tablet (40 mg total) by mouth daily . LEVOTHYROXINE (SYNTHROID, LEVOTHROID) 50 MCG TABLET MULTIVITAMIN WITH MINERALS TABLET Take 1 (one) tablet by mouth daily . POLYETHYLENE GLYCOL (MIRALAX) 17 GRAM POWDER Take 17 (seventeen) g by mouth daily . PROPAFENONE (RYTHMOL) 150 MG TABLET Take 1 (one) tablet (150 mg total) by mouth 2 (two) times a day. TRAMADOL (ULTRAM) 50 MG TABLET Take 1 (one) tablet (50 mg total) by mouth 2 (two) times a day as needed . Modified Medications Modified Medication Previous Medication ATORVASTATIN (LIPITOR) 10 MG TABLET atorvastatin (Lipitor) 10 MG tablet Take 1 (one) tablet (10 mg total) by mouth daily . Take 1 (one) tablet (10 mg total) by mouth daily. Discontinued Medications APIXABAN (ELIQUIS) 2.5 MG TAB Take 1 (one) tablet (2.5 mg total) by mouth 2 (two) times a day . DABIGATRAN (PRADAXA) 150 MG CAPSULE Take 1 (one) capsule (150 mg total) by mouth 2 (two) times a day . OMEGA-3 FATTY ACIDS/FISH OIL (FISH OIL-OMEGA-3 FATTY ACIDS) 300-1,000 MG CAPSULE Take 2 (two) capsules by mouth daily . Vital Signs: BP 139/86 (BP Location: Left arm, Patient Position: Sitting, BP Cuff Size: Adult) Comment: Machine BP Pulse 84 Ht 4' 10 Wt 72.1 kg (159 lb) SpO2 97% Comment: On room air BMI 33.23 kg/m Physical Exam Labs: I personally reviewed and interpreted the labs documented below. Lab Results Component Value Date TRIG 76 08/09/2016 Creatinine clearance cannot be calculated (Patient's most recent lab result is older than the maximum 14 days allowed.) documented in this [id number] History of Present illness Narrative* Sancho Woodruff MD - 04/05/2023 3:40 PM EDT Subjective Patient ID: Alma Echeverria is a 82 y.o. female who presents for Follow-up. HPI Since the last office visit there have been no interval operations, hospitalizations, important illnesses or injuries. Lumbar stenosis and DDD lumbar using tramadol with greater than 50% reduction in pain and no side effects. OARRS report is checked and Mme 13 I have personally reviewed the OARRS report for the above patient. This report is scanned into the electronic medical record. I have considered the risks of abuse, dependence, addiction, and diversion. I believe that it is clinically appropriate for the above patient to be prescribed this medication. Also reports having some fatigue. Anemia has resolved following her GI bleed and she has resumed Eliquis at 2.5 twice daily as she isknown to have paroxysmal atrial fibrillation Review of Systems General-no fatigue weight to within 10 pounds ENT no problems with vision swallowing Cardiac no chest pains palpitations change in exercise tolerance or capacity Pulmonary no cough shortness of breath GI no heartburn or abdominal pain Musculoskeletal no joint pains Objective BP 108/68 Pulse 87 Ht 1.473 m (4' 10) Wt 68.8 kg (151 lb 9.6 oz) SpO2 98% BMI 31.68 kg/m Physical Exam General: Alert, No acute distress. Appears stated age Eye: Pupils are equal, round and reactive to light, Extraocular movements are intact, Normal conjunctiva. Neck: Supple, Non-tender, No carotid bruit, No jugular venous distention, No lymphadenopathy, No thyromegaly. Respiratory: Lungs are clear to auscultation, Respirations are non-labored, Breath sounds are equal. Cardiovascular: Normal rate, Regular rhythm, No murmur. Gastrointestinal: Soft, Non-tender, No organomegaly. No solid or pulsatile mass Integumentary: Warm, Dry. No concerning lesions on exposed areas Neurologic: Alert, Oriented. Gross and fine motor intact, CN 2-12 intact Psychiatric: Cooperative, Appropriate mood & affect. Assessment/Plan Problem List Items Addressed This Visit Circulatory AF (paroxysmal atrial fibrillation) (CMS/FORMERLY [facility]) - Primary Relevant Orders Follow Up In Primary Care Digestive GI bleed Relevant Orders Follow Up In Primary Care Musculoskeletal DDD (degenerative disc disease), lumbosacral Relevant Orders Follow Up In Primary Care Lumbar stenosis with neurogenic claudication Relevant Orders Follow Up In Primary Care Other Hyperlipemia Relevant Orders Follow Up In Primary Care documented [facility] this [facility] Work Phone: [phone]) 756-146306-15-2023 History of Present illness Narrative* On a scale of 0 to 10, the patient rates the pain at 6. * Pain Location: Low Back Pain. * Pain Quality: SORE. * Timing/Duration: > 12 weeks duration. Improved * Exacerbating Factors: standing, walking and weightbearing. * Alleviating Factors: Assistive Devices, Exercise, Repositioning. * Goals for Pain Management: * MARYLU SCORE 28. * Patient is an 82-year-old female who presents today for follow-up after undergoing a left trochanteric bursa injection. This was done on 02/18/2023 and has given her 80 to 85% relief. She then underwent a right sciatic nerve injection done on 03/04/2023 that has also given her 80 to 85% relief. At this time, she states that she is comfortable and happy. She is doing well. She has some very minimal lower back pain that she does not feel needs to have anything done for it. She also has some abdominal discomfort but she is seeing Dr. Ocampo for this. She has her follow-up with him next week for this discomfort. She states at this time, in regards to our services she is doing well. She is comfortable and happy. She is out of the wheelchair. She is very happy. She is walking with a cane. She states that when she is home she does not even always need the cane. She also shared with me that she is getting ready to see the surgeon for the sacral fracture. She feels that things have significantlyimproved though and she does not feel that surgery is something that she is going to be pursuing but she is going to go to the appointment to get their opinion. 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 R SCIATIC NERVE INJECTION Anesthesia: No anesthesiologist associated with this case Estimated Blood Loss: 0 Findings: NA Operative Report: Procedure: Injection of the right sciatic nerve within the piriformis muscle under fluoroscopic guidance Diagnosis: Disorder of the right sciatic nerve Solution: 5 mL lidocaine 2%, 4 mL normal saline, 1 mL of Kenalog 40 mg. 10 mL total. Contrast: 1 mL Omnipaque Anesthesia: Local Complications: None After informed consent was obtained the patient was brought to the OR and placed in the prone position. The area in question was prepped and draped in sterile fashion. An AP fluoroscopic view of the right pelvis was obtained. The location of the sciatic nerve and piriformis muscle was identified between the inferior portion of the ipsilateral sacroiliac joint and greater trochanter. A 25-gauge Quincke needle was inserted perpendicular to the skin and advanced under intermittent fluoroscopic guidance until bone was contacted. The needle was withdrawn slightly. Aspiration was negative. Contrast was administered which demonstrated appropriate spread. The local anesthetic steroid solution was injected incrementally. The needle was removed. Bleeding was nil. The patient tolerated the procedure well and was transferred to the recovery room in good condition. 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 R SCIATIC NERVE INJECTION Anesthesia: No anesthesiologist associated with this case Estimated Blood Loss: 0 Findings: NA Operative Report: Procedure: Injection of the right sciatic nerve within the piriformis muscle under fluoroscopic guidance Diagnosis: Disorder of the right sciatic nerve Solution: 5 mL lidocaine 2%, 4 mL normal saline, 1 mL of Kenalog 40 mg. 10 mL total. Contrast: 1 mL Omnipaque Anesthesia: Local Complications: None After informed consent was obtained the patient was brought to the OR and placed in the prone position. The area in question was prepped and draped in sterile fashion. An AP fluoroscopic view of the right pelvis was obtained. The location of the sciatic nerve and piriformis muscle was identified between the inferior portion of the ipsilateral sacroiliac joint and greater trochanter. A 25-gauge Quincke needle was inserted perpendicular to the skin and advanced under intermittent fluoroscopic guidance until bone was contacted. The needle was withdrawn slightly. Aspiration was negative. Contrastwas administered which demonstrated appropriate spread. The local anesthetic steroid solution was in jected incrementally. The needle was removed. Bleeding was nil. The patient tolerated the procedurewell and was transferred to the recovery room in good condition. 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 R SCIATIC NERVE INJECTION Anesthesia: No anesthesiologist associated with this case Estimated Blood Loss: 0 Findings: NA Operative Report: Procedure: Injection of the right sciatic nerve within the piriformis muscle under fluoroscopic guidance Diagnosis: Disorder of the right sciatic nerve Solution: 5 mL lidocaine 2%, 4 mL normal saline, 1 mL of Kenalog 40 mg. 10 mL total. Contrast: 1 mL Omnipaque Anesthesia: Local Complications: None After informed consent was obtained the patient was brought to the OR and placed in the prone position. The area in question was prepped and draped in sterile fashion. An AP fluoroscopic view of the right pelvis was obtained. The location of the sciatic nerve and piriformis muscle was identified between the inferior portion of the ipsilateral sacroiliac joint and greater trochanter. A 25-gauge Quincke needle was inserted perpendicular to the skin and advanced under intermittent fluoroscopic guidance until bone was contacted. The needle was withdrawn slightly. Aspiration was negative. Contrastwas administered which demonstrated appropriate spread. The local anesthetic steroid solution was in jected incrementally. The needle was removed. Bleeding was nil. The patient tolerated the procedurewell and was transferred to the recovery room in good condition. Attestation: Note Completion: Attending Attestation I performed the procedure without a resident Electronic Signatures: Maria Teresa Epperson) (Signed 04-Mar-2023 17:12) Authored: Post-Operative Note, Chart Review, Note Completion Last Updated: 04-Mar-2023 17:12 by Maria Teresa Epperson) [facility] Work Phone: [phone]) 514-959005-12-2023 NotePROCEDURE DETAILS Preoperative Diagnosis: Trochanteric bursitis of the left hip, M70.62 Postoperative Diagnosis: Trochanteric bursitis of the left hip, M70.62 Surgeon: Maria Teresa Epperson Resident/Fellow/Other Sales Promotion Representative: None of these were associated with this case Procedure: 1. LEFT TROCHANTERIC BURSA INJECTION Anesthesia: No anesthesiologist associated with this case Estimated Blood Loss: 0 Findings: NA Additional Details: The patient has a 3-month history of pain over the lateral left hip. She has undergone previous trochanteric bursa injections and obtained over 60% pain relief for 3 months at a time. She has not had an injection in 6 months. Her examination is notable for severe focal tenderness over the left greater trochanter. Operative Report: Procedure: Steroid injection into the trochanteric bursa of the left hip Diagnosis: Trochanteric bursitis of the left hip Solution: 5 mL of 2% lidocaine and 0.5 mL of Kenalog 20 mg. 5.5 mL total Anesthesia: Local Complications: None After informed consent was obtained the patient brought to the OR and was placed in the supine position. The area in question was prepped in sterile fashion. A 25-gauge Quincke needle was inserted into the skin over the lateral aspect of the left hip and was advanced until the greater trochanter was contacted. Aspiration was negative. 1 mL of Isovue was injected and demonstrated appropriate spread. The local anesthetic steroid solution was injected incrementally. The needle was removed. Bleeding was nil. The patient tolerated the procedure well and was transferred to the recovery room in good condition. Attestation: Note Completion: Attending AttestationI performed the procedure without a resident Electronic Signatures: Maria Teresa Epperson) (Signed 18-Feb-2023 20:39) Authored: Post-Operative Note, Chart Review, Note Completion Last Updated: 18-Feb-2023 20:39 by Maria Teresa Epperson)[facility]05-12-2023 Miscellaneous Notes* Op Note - Maria Teresa Epperson MD - 02/18/2023 10:38 AM EDT PROCEDURE DETAILS Preoperative Diagnosis: Trochanteric bursitis of the left hip, M70.62 Postoperative Diagnosis: Trochanteric bursitis of the left hip, M70.62 Surgeon: Maria Teresa Epperson Resident/Fellow/Other Sales Promotion Representative: None of these were associated with this case Procedure: 1. LEFT TROCHANTERIC BURSA INJECTION Anesthesia: No anesthesiologist associated with this case Estimated Blood Loss: 0 Findings: NA Additional Details: The patient has a 3-month history of pain over the lateral left hip. She has undergone previous trochanteric bursa injections and obtained over 60% pain relief for 3 months at a time. She has not had an injection in 6 months. Her examination is notable for severe focal tenderness over the left greater trochanter. Operative Report: Procedure: Steroid injection into the trochanteric bursa of the left hip Diagnosis: Trochanteric bursitis of the left hip Solution: 5 mL of 2% lidocaine and 0.5 mL of Kenalog 20 mg. 5.5 mL total Anesthesia: Local Complications: None After informed consent was obtained the patient brought to the OR and was placed in the supine position. The area in question was prepped in sterile fashion. A 25-gauge Quincke needle was inserted into the skin over the lateral aspect of the left hip and was advanced until the greater trochanter was contacted. Aspiration was negative. 1 mL of Isovue was injected and demonstrated appropriate spread. The local anesthetic steroid solution was injected incrementally. The needle was removed. Bleeding was nil. The patient tolerated the procedure well and was transferred to the recovery room in goodcondition. Attestation: Note Completion: Attending Attestation I performed the procedure without a resident Electronic Signatures: Maria Teresa Epperson) (Signed 18-Feb-2023 20:39) Authored: Post-Operative Note, Chart Review, Note Completion Last Updated: 18-Feb-2023 20:39 by Maria Teresa Epperson) documented in this [facility] Work Phone: 1([phone]) 102-563705-12-2023 Note* Op Note - Maria Teresa Epperson MD - 02/18/2023 10:38 AM EDT PROCEDURE DETAILS Preoperative Diagnosis: Trochanteric bursitis of the left hip, M70.62 Postoperative Diagnosis: Trochanteric bursitis of the left hip, M70.62 Surgeon: Maria Teresa Epperson Resident/Fellow/Other Sales Promotion Representative: None of these were associated with this case Procedure: 1. LEFT TROCHANTERIC BURSA INJECTION Anesthesia: No anesthesiologist associated with this case Estimated Blood Loss: 0 Findings: NA Additional Details: The patient has a 3-month history of pain over the lateral left hip. She has undergone previous trochanteric bursa injections and obtained over 60% pain relief for 3 months at a time. She has not had an injection in 6 months. Her examination is notable for severe focal tenderness over the left greater trochanter. Operative Report: Procedure: Steroid injection into the trochanteric bursa of the left hip Diagnosis: Trochanteric bursitis of the left hip Solution: 5 mL of 2% lidocaine and 0.5 mL of Kenalog 20 mg. 5.5 mL total Anesthesia: Local Complications: None After informed consent was obtained the patient brought to the OR and was placed in the supine position. The area in question was prepped in sterile fashion. A 25-gauge Quincke needle was inserted into the skin over the lateral aspect of the left hip and was advanced until the greater trochanter was contacted. Aspiration was negative. 1 mL of Isovue was injected and demonstrated appropriate spread. The local anesthetic steroid solution was injected incrementally. The needle was removed. Bleeding was nil. The patient tolerated the procedure well and was transferred to the recovery room in goodcondition. Attestation: Note Completion: Attending Attestation I performed the procedure without a resident Electronic Signatures: Maria Teresa Epperson) (Signed 18-Feb-2023 20:39) Authored: Post-Operative Note, Chart Review, Note Completion Last Updated: 18-Feb-2023 20:39 by Maria Teresa Epperson) [facility] Work Phone: [phone] 571-551305-11-2023 History of Present illness Narrative* Sancho Woodruff MD - 02/17/2023 2:40 PM EDT Subjective Patient ID: Alma Echeverria is a 82 y.o. female who presents for 3 mo fu. HPI Remains off eliquis , tires easily, cont woth pain in back and hip. Only back 30% Sees chopko next week for first visist, thommaria eugenia berrios and cardio in April We will check CBC CMP today for stability. Continues on tramadol for pain. H cc of paroxysmal atrial fibrillation malignant neoplasm of uterus, closed fracture of sacrum, obesity, chronic liver disease and cirrhosis were all closed conditions are stable Review of Systems A lot of low back pain difficulty with ambulation Objective BP 124/84 Pulse 88 Ht 1.473 m (4' 10) Wt 71.1 kg (156 lb 11.2 oz) SpO2 95% BMI 32.75 kg/m Physical Exam Today in wheelchair for ease of transport heart regular without murmur lungs clear to auscultation Assessment/Plan Problem List Items Addressed This Visit Circulatory AF (paroxysmal atrial fibrillation) (CMS/HCC) Digestive GI bleed - Primary Relevant Orders CBC (Completed) Comprehensive Metabolic Panel Genitourinary Uterine cancer (CMS/HCC) Musculoskeletal Sacral fracture (CMS/HCC) Endocrine/Metabolic Severe obesity with body mass index (BMI) of 35.0 to 39.9 with serious comorbidity (CMS/HCC) Other Chronic liver disease and cirrhosis (CMS/HCC) Primary here for GI bleed we will get labs today to prove stability before follow-up with Dr. Hayden documented in this [facility] Work Phone: 1([phone]) 418-740504-14-2023 Hospital Discharge instructions* Additional Orders:Additional Instructions: NEW:1. Ferrous sulfate 325 mg 1 p.o. twice dailyCHANGE:1. Eliquis 5 mg half a tab twice dailyFollow-up with Dr. Woodruff 1 weekFollow-up with Dr. Lal's office in 1 week; CBC prior * Follow Up Appointment 1:Physician/Dept/Service: Dr. Tam for Referral: Hospital Follow-upCall to Schedule in: 1 weekLocation: [address], [place] [address]Cklcx Number: [phone]: Please call and schedule an appointment within 1 week of your Hospital Discharge * Follow Up Appointment 2:Physician/Dept/Service: Dr Yates for Referral: Hospital Follow-upLocation: [address], [place] [address]Earmd Number: [phone]: Please call and schedule an appointment within 1 week of your Hospital Discharge [facility]04-14-2023 NoteSend Summary: Discharge Summary Providers: Provider RoleProvider Name Shahid Burroughs Note Recipients: Sancho Woodruff MD Discharge: Summary: Admission Date: .17-Jan-2023 11:26:00 Discharge Date: 21-Jan-2023 Attending Physician at Discharge: Shahid Colunga Admission Reason: Black stools(1) Final Discharge Diagnoses: Black stools, Anemia Procedures: Date: 19-Jan-2023 15:42:00 Procedure Name: 1. EGD 2. 3. 4. 5. CT of the abdomen pelvis with IV contrast 01/17/2023 GI consultation Status post 1 unit packed red blood cells 02/06/2023 Condition at Discharge: Satisfactory Disposition at Discharge: .Home Vital Signs: T PRBPMAPSpO2 [id number]/5997% Date/Time01/21 10: 10: 20:024/14 10:164/14 10:16 Range(35.4C - 37.3C ) (63 - 71 ) (12 - 16 ) (99 - 114 )/ (56 - 69 ) (90% - 97% ) Highest temp of 37.3 C was recorded at 01/20 18:50 Date: Weight/Scale Type:Height: 17-Jan-2023 17:1872.4 kg / ngs746.1 cm Physical Exam: Constitutional: Awake and alert; oriented x3 with no apparent distress or respiratory distress; pale Head/Neck: Neck supple with no palpable lymphadenopathy, bruits or masses; trachea midline Respiratory/Thorax: Clear to auscultation bilaterally no active wheezes or rhonchi noted Cardiovascular: Irregularly irregular; normal S1-S2 with no murmur; no edema and 2+ pulses bilaterally Gastrointestinal: Soft, nontender, nondistended, positive bowel sounds Neurological: Nonfocal; cranial nerves II through XII appear intact Psychological: Pleasant affect Hospital Course: Please refer to history and physical details of admission. Patient presented to the emergency room January 17 with black stools. About a month ago she states she developed a spine fracture lower back and right hip towards the sacrum area. She has been in significant pain since but she denies taking any [id number] pain meds. She was started on Eliquis after being denied Pradaxa by her insurance and she says she started having soft black stools. Her PCP Dr. Woodruff did labs on her and a fecal occult Was positive. The last 2 days prior to presentation she became more weak even using her walker. She states she will maybe walk 10 steps and she feels like she is going to pass out although she never did. No chest pains or shortness of breath and no headaches or visual disturbances and no dizziness. No abdominal pain. She came into the ED to be evaluated. In the ER vital signs were stable and she is afebrile. Her H&H is 8.7 and 26.8 (September 09, 2022 her hemoglobin was 13.6). MCV and MCHC are normal. Platelets are 202,000. She is COVID-19 negative. BUN is 32 with a creatinine of 0.56 and the rest of her labs are unremarkable. Chest x-ray is nonacute and CT of the abdomen pelvis with IV contrast shows few fluid-filled dilated small bowel loops in the mid abdomen which are nonspecific and be related to mild enteritis versus low-grade partial bowel obstruction and no definite CT evidence of transition point. In the emergency room she received a liter of fluid of normal saline and placed on the medical service for GI bleed and anemia. While waiting for bed ER got her to the bedside commode and she had a syncopal episode for about 30 seconds. When she came to she was awake and alert and aware of her surroundings. On the medical service the patient was admitted for blood in her stool which sounds like melena and anemia along with syncope. She was placed on telemetry and I consulted GI. We held her Eliquis. She underwent an EGD on the and it showed hematin but no acute bleed. We held her Eliquis throughout her hospitalization. It was recommended to maybe go to 2-1/2 mg instead of 5 mg twice daily. 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 She requested 1 unit of packed red blood cells. Her hemoglobin was 7.4 but she was symptomatic with some weakness and mild shortness of breath. We gave her 1 unit of packed red blood cells and this morning her hemoglobin is 8.5. She is ready for discharge. Discharge Information: and Continuing Care: Lab Results - Pending: Surgical Pathology Drawn at 19-Jan-2023 15:25:00 Radiology Results - Pending: None Discharge Instructions: Nutrition/Diet: low fat, low sodium Additional Orders: Additional Instructions: NEW: 1. Ferrous sulfate 325 mg 1 p.o. twice daily CHANGE: 1. Eliquis 5 mg half a tab twice daily Follow-up with Dr. Woodruff 1 week Follow-up with Dr. Lal's office in 1 week; CBC prior Follow Up Appointments: Follow-Up Appointment 01: Physician/Dept/Service: Dr. Woodruff 1 week; Dr. Ocampo 1 week Discharge Medications: Home Medication Amitiza 8 mcg oral capsule - 1 cap(s) orally (more content not included)... [facility]04-12-2023 NotePost Operative Note: PreOp Diagnosis: melena, anemia Post-Procedure Diagnosis: no active UGI bleeding Procedure: 1. EGD 2. 3. 4. 5. Surgeon: Damaris Resident/Fellow/Other Sales Promotion Representative: N/A Anesthesia: JARED Ortiz Estimated Blood Loss (mL): none Specimen: yes. VLADISLAV Findings: hematin in antrum of stomach. no active ulcer or bleed Electronic Signatures: Oksana Ocampo DO (Signed 19-Jan-2023 15:45) Authored: Post Operative Note, Note Completion Last Updated: 19-Jan-2023 15:45 by Oksana Ocampo)[facility] 01-19-2023 NoteHistory & Physical Reviewed: I have reviewed the History and Physical dated: 18-Jan-2023 History and Physical reviewed and relevant findings noted. Patient examined to review pertinent physical findings.: No significant changes Home Medications Reviewed: no changes noted Allergies Reviewed: no changes noted ERAS (Enhanced Recovery After Surgery): ERAS Patient: no Consent: COVID-19 Consent: COVID-19 Risk ConsentSurgeon has reviewed crum risks related to the risk of dawit COVID-19 and if they contract COVID-19 what the risks are. Electronic Signatures: Oksana Ocampo) (Signed 19-Jan-2023 15:41) Authored: History & Physical Reviewed, ERAS, Consent, Note Completion Last Updated: 19-Jan-2023 15:41 by Oksana Ocampo)[facility] 01-17-2023 NoteHistory of Present Illness: Admission Reason: Black stools HPI: ALMA ECHEVERRIA is a 82 year old Female This is an 82-year-old white female whose past medical history is significant for: 1. Atrial fibrillation on Eliquis 2. Hypercholesterolemia 3. Hypothyroidism 4. MATTHEW and she said it was possibly secondary to being on Celebrex 5. History of uterine cancer status post ARLEN with BSO 6. Hanley's esophagus 7. Osteoarthritis About a month ago patient states that she developed a spine fracture in her lower back by her right hip and she mentioned towards sacrum. She has been in significant pain since then. She also developed black soft stools. Her PCP Dr. Le did blood work and also an occult blood that was positive. The last 2 days she has become very weak even using her walker. She says she will walk maybe 10 steps and she feels like she is going to pass out. There is no loss of consciousness. No chest pain or shortness of breath and no headaches or visual disturbances or dizziness. She continues to have the black soft stool and she denies any abdominal pain with this. She came into the ER to be evaluated. No other complaints. In the ER her blood pressure is 120/69 with a pulse of 87 and a respiratory rate of 16. She satting 100% on room air and she is afebrile. Her white count is 6.2 and her H&H is 8.7 (back in September 09, 2022 her hemoglobin was 13.6) and 26.8. MCV and MCHC are normal and her platelet count is 202,000. She is COVID-19 negative. Her CMP is remarkable for a potassium of 3.3, chloride 97, bicarb 33 and a BUN of 32. Her creatinine is normal at 0.56. Calcium is low at 7.9 but her albumin is 3.3 and a protein is 5.8. Alk phos is 150. Her LFTs are otherwise unremarkable and initial troponin is 5 with a repeat of 5. Chest x-ray is nonacute and CT of the abdomen pelvis with IV contrast shows few fluid-filled dilated small bowel loops in the mid abdomen which may be nonspecific and could be related to mild enteritis versus low-grade partial bowel obstruction and no definite CT evidence of a transition point. There is hepatic cirrhosis and a diffusely distended urinary bladder as well as mild circumferential thickening of the distal thoracic esophagus which could be related to reflux. In the ER she received a liter infusion of normal saline. She is admitted to the medical service for GI bleed and anemia. Emergency room contacted me because they got her up to the bedside commode and she passed out. She was probably out for another 30 seconds and when she came to she was awake and alert and oriented. She had a full syncopal episode in the ED. PAST MEDICAL HISTORY see above PAST SURGICAL HISTORY 1. Bilateral cataract extraction lens implantation 2. 30 to 40 years ago she had an abdominal mass she said it was the size of a grapefruit that she underwent surgery but then they nicked the ureter and urology repair the ureter here at [facility]; she does not recall what they called the mass but it was not cancer 3. Lysis of adhesions 4. Right total hip replacement 5. Appendectomy 6. Remote tonsillectomy and adenoidectomy 7. Right total shoulder replacement 3 years ago 8. 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 ARLEN with BSO secondary to uterine cancer FAMILY HISTORY Mother from pancreatic cancer complications Father with a history of a massive stroke 9 siblings with 7 but she cannot recall the illnesses; 1 sister is alive with dementia, skin cancer, hypertension and stroke history in the other sister is alive that she is aware of Her daughter is alive with melanoma Her son from complications of COVID-pneumonia and he also had some type of abdominal cancer SOCIAL HISTORY Patient is living at home with her No tobacco history Very rare alcohol use No drug abuse history Comorbidities: Comorbidites: Comorbid Conditionsatrial fibrillation Type of Atrial FibrillationChronic Social History: Social History: Smoking Statusnever smoker (1) Alcohol Usedenies(1) Drug Usedenies (1) Allergies: codeine: Other (Mild), Itching Medications Prior to Admission: Amitiza 8 mcg oral capsule: 1 cap(s) orally 2 times a day atorvastatin 10 mg oral tablet: 1 tab(s) orally once a day Cartia XT 240 mg/24 hours oral capsule, extended release: 1 cap(s) orally once a day Dexilant 60 mg oral delayed release capsule: 1 cap(s) orally once a day traMADol 50 mg oral tablet: 1 tab(s) orally every 6 hours levothyroxine 50 mcg (0.05 mg) oral capsule: 1 cap(s) orally once a day aspirin 81 mg oral tablet: 1 tab(s) orally once a day furosemide 40 mg oral tablet: 2 tab(s) orally once a day MiraLax oral powder for reconstitution: 17 gram(s) orally once a day fluocinolone 0.01% otic solution: 5 drop(s) to each affected ear 2 times a day, As Needed Mac (more content not included)...[facility]04-01-2023 History of Present illness Narrative* Alma was hospitalized in January of this year with acute anemia. At that time she was recently hospitalized for acute spinal fracture and was on high-dose NSAIDs. Endoscopy was performed while hospital ized and no discernible bleeding source could be identified. She did improved and her blood count since discharge last checked in February was up to 11.4. She is no longer having any melanic stools but did have an occult positive stool by her family doctor. Patient is on blood thinners. She denies any complaints is still having some back pain limiting activity, she does see her neurosurgeon on the eighth and will have an update on any surgical procedures may improve her pain. At this time she is comfortable with how things are progressing. * She did undergo her last complete colonoscopy in June 2022 with removal of small polyp within her cecum, pathology was not completed as no polyp tissue was sent to the lab. She does have a positive family history of colon cancer in her sister [facility] [address] Work Phone: 1(220) 417-204303-22-2023 History of Present illness Narrative* On a scale of 0 to 10, the patient rates the pain at 10. * Pain Location: Low Back Pain and RIght. * Pain Radiation: Radiates into right hip and leg. * Sensory/ Motor: Weakness and legs. * Timing/Duration: Constant and < 6 weeks duration. * Exacerbating Factors: motion, standing and walking. * Alleviating Factors: Other: ___. * 24 Hour Behavior: * Symptoms are the same in the am. * Symptoms are the same as the day progresses. * Symptoms are the same in the pm. * Symptoms are the same when lying down. * Psychosocial Factors vs Last Visit: * Physical Functioning: Worse. * Family Relationships: Same. * Social Relationships: Same. * Mood: Same. * Sleep Patterns: Worse. * Overall Functioning: Worse. * Response to current treatment:. * No, I am not experiencing side effects from current pain reliever(s). * The patient is being seen for an initial evaluation of back pain. This condition is not related to a specific injury. The patient has been previously evaluated by a primary care provider, by a specialty provider and Christine Voss at Dr. Hathaway's office (ortho). Past evaluation has included spinex- rays. Past treatment has included opioid analgesics and physical therapy. Past procedures have included Years ago she had injections with Dr. Fleming. She hasn't seen him in years. * Patient is an 82-year-old female who presents today with her who is already our patient. She presents today with complaints of lower back pain with right buttock pain and right radiating leg pain. She has a history of right hip replacement. Patient started with her orthopedic surgeon. She had some x-rays and she was referred here for the pain. They feel that some of it was coming from herlower back. She rates the discomfort a 10/10. She states that it started approximately 6 months agobut over the last month it got worse. Patient has been seeing her chiropractor every week for the last 6 months for treatments and ultrasound treatments and unfortunate, has not gotten the relief sheis looking for. She is doing physical therapy. She has been doing this for 2 months. She has only gone a few times that she does a home exercise program. Unfortunate, this is not giving her the relief she is looking for either. * She is currently ambulating with a walker. She is essentially homebound because of this pain. She uses a cane. She can stand for 15 to 20 minutes but she has to also have a cane. She cannot to stand on her own. * It is an aching and stabbing type pain that goes down her right leg to her knee. Nothing significant makes it better. Standing, walking, and being active makes it worse. -[facility] Work Phone: [phone]) [phone] History of Present illness Narrative* Meryl Kearns LPN - 2022 2:49 PM EDT Referral to DR Epperson office faxed and sent via group activities aide. Spoke with Dariela hudson abdullahi at Dr Epperson's office she will schedule her when referral gets there. documented in this [id number] History of Present illness Narrative* Christine Voss, ELIJAH - 2022 1:25 PM EDT [facility] [address] [facility] [address] [facility] [phone] Alma Tl Sureshon returns to the office today for follow-up on the right hip pain. At her last visit we had discussed a possible injection into the right hip bursa which is why she is here today. Today she is pointing directly to her lumbar spine as to where her pain is at. She does not have any pain along the lateral portion of her hip. She denies any injury to the hip or the lower back. She reports that the last time she was on an oral steroid I provided her with good pain and symptom relief. She is becoming very limited as to what she can do because of this pain. She is also having to usea walker at home for ambulation assistance. She is having much more difficult time standing for anylength of time to do anything. The patient's past medical history, surgical history, social history, family history, medications and allergies were reviewed with the patient today and are available in the chart for further review. Allergies Allergen Reactions Codeine Other (See Comments) skin crawling Other reaction(s): Other (See Comments) skin crawling Nausea Flexeril [Cyclobenzaprine] AND OTHER MUSCLE RELAXERS Ibuprofen Other (See Comments) and GI Intolerance Upset stomach Other reaction(s): Nausea Only Other reaction(s): Other (See Comments) Upset stomach Latex Lisinopril-Hydrochlorothiazide Nylon Adhesive Tape-Silicones Rash Current Outpatient Medications: AMITIZA 8 mcg capsule, Take 1 (one) capsule (8 mcg total) by mouth 2 (two) times a day with meals ., Disp: , Rfl: atorvastatin (Lipitor) 10 MG tablet, Take 1 (one) tablet (10 mg total) by mouth daily ., Disp: 90 tablet, Rfl: 3 cholecalciferol, vitamin D3, 1,000 unit tablet, Take 1 (one) tablet (1,000 Units total) by mouth daily ., Disp: , Rfl: dabigatran (PRADAXA) 150 mg capsule, Take 1 (one) capsule (150 mg total) by mouth 2 (two) times a day ., Disp: , Rfl: dexlansoprazole (DEXILANT) 30 mg capsule, Take 1 (one) capsule (30 mg total) by mouth daily ., Disp: , Rfl: diltiazem (CARDIZEM CD) 240 MG 24 hr capsule, Take 1 (one) capsule (240 mg total) by mouth daily .,Disp: , Rfl: Eliquis 5 mg Tab, , Disp: , Rfl: furosemide (LASIX) 40 MG tablet, Take 1 (one) tablet (40 mg total) by mouth daily ., Disp: , Rfl: levothyroxine (SYNTHROID, LEVOTHROID) 50 MCG tablet, , Disp: , Rfl: multivitamin with minerals tablet, Take 1 (one) tablet by mouth daily ., Disp: , Rfl: omega-3 fatty acids/fish oil (fish oil-omega-3 fatty acids) 300-1,000 mg capsule, Take 2 (two) capsules by mouth daily ., Disp: , Rfl: polyethylene glycol (MIRALAX) 17 gram powder, Take 17 (seventeen) g by mouth daily ., Disp: , Rfl: propafenone (RYTHMOL) 150 MG tablet, Take 1 (one) tablet (150 mg total) by mouth 2 (two) times a day ., Disp: 60 tablet, Rfl: 11 traMADoL (ULTRAM) 50 mg tablet, Take 1 (one) tablet (50 mg total) by mouth 2 (two) times a day as needed ., Disp: , Rfl: methylPREDNISolone (MEDROL DOSEPACK) 4 mg tablet, Follow package directions ., Disp: 21 tablet, Rfl: 0 Past Medical History: Diagnosis Date Abdominal pain Arm numbness Arm weakness Arthritis Atrial fibrillation (HCC) Hanley esophagus Endometrial cancer (HCC) 1970 uterine ca Frequent UTI History of blood transfusion HLD (hyperlipidemia) Hypertension Leg numbness Leg weakness Liver cirrhosis secondary to nonalcoholic steatohepatitis (MATTHEW) (HCC) Squamous cell skin cancer Tongue irritation Uterine mass Reportedly benign Past Surgical History: Procedure Laterality Date APPENDECTOMY ARTHROPLASTY SHOULDER REVERSE Right 11/29/2019 Procedure: Reverse right total shoulder replacement; Surgeon: Dada Hathaway MD; Location: Main OR; Service: Orthopedic CATARACTS CHOLECYSTECTOMY EXPLORATORY LAPAROTOMY N/A 07/29/2016 Procedure: EXPLORATORY LAPAROTOMY LYSIS OF ADHESION ; Surgeon: Smooth Sarabia MD; Location: [facility] Main OR; Service: FOOT FUSION FOOT SURGERY GALLBLADDER HIP REPLACEMENT RIGHT RIGHT HYSTERECTOMY KNEE REPLACEMENT BILATERAL BILATERAL OOPHORECTOMY RADIATION uterine ca TONSILLECTOMY TOTAL HIP ARTHROPLASTY Right TOTAL KNEE ARTHROPLASTY Bilateral TUMOR EXCISION NEAR OVARIES VEIN LIGATION Social History Socioeconomic History Marital status: Tobacco Use Smoking status: Never Passive exposure: Never Smokeless tobacco: Never Vaping Use Vaping Use: Never used Substance and Sexual Activity Alcohol use: Yes Comment: occasional Drug use: No ROS: Review of Systems Musculoskeletal: Positive for arthralgias, back pain, gait problem and myalgias. Neurological: Positive for weakness. ORTHO: Right Hip Exam Tenderness The patient is experiencing tenderness in the posterior. Range of Motion External rotation: 50 Internal rotation: 20 Muscle Strength Abduction: 4/5 Adduction: 4/5 Flexion: 4/5 Other Erythema: absent Scars: present Sensation: normal Pulse: present Imaging: No new imaging, reviewed from prior visit. Assessment/Plan: After exam and discussion I am sending her on to pain management to discuss further options for the lumbar spine. I will give her another course of prednisone for her pain and inflammation. I am more than happy to see her back as needed. documented in this [id number] History of Present illness Narrative* Christine Voss CNP - 05/13/2022 11:46 AM EDTAssociated Order(s): LG Jt Injection/Arthrocentesis: L glenohumeral Post-Procedure Diagnose(s): Rotator cuff disorder, left 05/13/22 Alma Klineillion 1940 HISTORY of Present Illness: Alma Echeverria is a 81 y.o. year old female that presents today with left shoulder pain. Alma Echeverria has had injections in the past. Last injection to right/left shoulder was 02/10/22 and they tolerated well. They have been treated w/ oral medications & injections. Patient denies new injury to the shoulder. The following portions of the patient's history were reviewed and updated as appropriate: allergies, current medications, past surgical history and problem list PAST MEDICAL HISTORY The patient's Medications, Allergies, Past Surgical History, Medical History, Family History and Social History were reviewed and can be found in their online medical record, and I have reviewed thisinformation with Alma Echeverria at the time of their visit. They are significant for Past Medical History: Diagnosis Date Abdominal pain Arm numbness Arm weakness Arthritis Atrial fibrillation (HCC) Hanley esophagus Endometrial cancer (HCC) 1969 uterine ca Frequent UTI History of blood transfusion HLD (hyperlipidemia) Hypertension Leg numbness Leg weakness Liver cirrhosis secondary to nonalcoholic steatohepatitis (MATTHEW) (HCC) Squamous cell skin cancer Uterine mass Reportedly benign IMAGING Notes: none new today. Reviewed from last visit. IMPRESSION And PLAN: Cortisone injection today. Will follow up in 3 months if effective. Call if no improvement in 10 days. 1. Rotator cuff disorder, left Christine Voss CNP LG Jt Injection/Arthrocentesis: L glenohumeral Date/Time: 05/13/2022 11:49 AM Performed by: Christine Voss CNP Authorized by: Christine Voss CNP CPT 43185 - Large Joint Arthrocentesis: Consent given by: Patient Time out: Immediately prior to the procedure a time out was called Physician or proceduralist has discussed critical or nonroutine steps, procedure duration and anticipated blood loss: Yes Supporting Documentation: Indications: Pain and diagnostic evaluation Procedure Details: Location: Shoulder Site: L glenohumeral Prep: patient was prepped and draped in usual sterile fashion Needle size: 22 G Approach: Posterior Medications: 40 mg triamcinolone acetonide 40 mg/mL Anesthetic used: Lidocaine 1% Anesthetic amount (mL): 2 Patient tolerance: Patient tolerated the procedure well with no immediate complications documented in this [id number] History of Present illness Narrative* Christine Voss CNP - 04/28/2022 10:07 PM EDTAssociated Order(s): LG Jt Injection/Arthrocentesis: L greater trochanteric bursa Post-Procedure Diagnose(s): Greater trochanteric bursitis of left hip 04/28/22 Alma A Ky 1940 HISTORY of Present Illness: Alma Echeverria is a 81 y.o. year old female that presents today with left hip pain. . Alma Echeverria has had injections in the past. Last injection to right/left hip bursa 01/27/22 and they tolerated well. They have been treated w/ oral medications & injections. Patient denies new injury to the hips. The following portions of the patient's history were reviewed and updated as appropriate: allergies, current medications, past surgical history and problem list PAST MEDICAL HISTORY The patient's Medications, Allergies, Past Surgical History, Medical History, Family History and Social History were reviewed and can be found in their online medical record, and I have reviewed thisinformation with Alma A Ky at the time of their visit. They are significant for Past Medical History: Diagnosis Date Abdominal pain Arm numbness Arm weakness Arthritis Atrial fibrillation (HCC) Hanley esophagus Endometrial cancer (HCC) 1970 uterine ca Frequent UTI History of blood transfusion HLD (hyperlipidemia) Hypertension Leg numbness Leg weakness Liver cirrhosis secondary to nonalcoholic steatohepatitis (MATTHEW) (HCC) Squamous cell skin cancer Uterine mass Reportedly benign IMAGING Notes: none new today. Reviewed from last visit. IMPRESSION And PLAN: Cortisone injection today. Will follow up in 3 months if effective. Call if no improvement in 10 days. 1. Greater trochanteric bursitis of left hip LG Jt Injection/Arthrocentesis: L greater trochanteric bursa Date/Time: 04/28/2022 10:08 PM Performed by: Christine Voss CNP Authorized by: Christine Voss CNP CPT 83277 - Large Joint Arthrocentesis: Consent given by: Patient Time out: Immediately prior to the procedure a time out was called Physician or proceduralist has discussed critical or nonroutine steps, procedure duration and anticipated blood loss: Yes Supporting Documentation: Indications: Diagnostic evaluation and pain Procedure Details: Location: Hip Site: L greater trochanteric bursa Prep: patient was prepped and draped in usual sterile fashion Needle size: 22 G Approach: Lateral Medications: 40 mg triamcinolone acetonide 40 mg/mL Anesthetic used: Lidocaine 1% Anesthetic amount (mL): 2 Patient tolerance: Patient tolerated the procedure well with no immediate complications Christine Voss CNP documented in this [id number] Evaluation + Plan note* Assessment & Plan Note - Wang Borges MD - 03/21/2022 10:14 AM EDT Associated Problem(s): Coronary artery disease involving [place] coronary artery of [place] heart without angina pectoris Coronary artery disease was noted on her coronary CCTA. It was not significant to warrant intervention. Specifically the LAD was 1 to 24% stenosis, circumflex was trivial, RCA shows 25 to 49% from 2019. No aspirin given chronic Pradaxa use. Continue atorvastatin 10 mg daily with a target LDL of 70.Consider ischemic evaluation should her symptoms of shortness of breath recur [id number] Evaluation + Plan note* Assessment & Plan Note - Wang Borges MD - 03/21/2022 10:14 AM EDTAssociated Problem(s): HTN (hypertension) Home blood pressure is well controlled on Cardizem CD 240 mg once daily and Lasix as needed [id number] Miscellaneous Notes* Assessment & Plan Note - Wang Borges MD - 03/21/2022 10:14 AM EDTAssociated Problem(s): Coronary artery disease involving [place] coronary artery of [place] heart without angina pectoris Coronary artery disease was noted on her coronary CCTA. It was not significant to warrant intervention. Specifically the LAD was 1 to 24% stenosis, circumflex was trivial, RCA shows 25 to 49% from 2020. No aspirin given chronic Pradaxa use. Continue atorvastatin 10 mg daily with a target LDL of 70.Consider ischemic evaluation should her symptoms of shortness of breath recur * Assessment & Plan Note - Wang Borges MD - 03/21/2022 10:14 AM EDT Associated Problem(s): HTN (hypertension) Home blood pressure is well controlled on Cardizem CD 240 mg once daily and Lasix as needed * Assessment & Plan Note - Wang Borges MD - 03/21/2022 10:13 AM EDT Associated Problem(s): Atrial fibrillation (HCC) History of this, she thinks that she did have an irregular heartbeat prior to her issues with worsening shortness of breath. We talked about how paroxysms of A. fib can increase shortness of breath. She is currently only taking Cardizem CD in efforts to control her A. fib. I thought a trial of an antiarrhythmic may be helpful to see if her shortness of breath improves better rhythm control. She is agreeable to start propafenone 150 mg twice daily. We will get an EKG in a few days to make sure she is tolerating it. She will continue her Cardizem CD 240 mg once daily and she will continue her Pradaxa 150 mg twice daily. No issues with blood loss anemia. documented in this [id number] Evaluation + Plan note* Assessment & Plan Note - Wang Borges MD - 03/21/2022 10:13 AM EDT Associated Problem(s): Atrial fibrillation (HCC) History of this, she thinks that she did have an irregular heartbeat prior to her issues with worsening shortness of breath. We talked about how paroxysms of A. fib can increase shortness of breath. She is currently only taking Cardizem CD in efforts to control her A. fib. I thought a trial of an antiarrhythmic may be helpful to see if her shortness of breath improves better rhythm control. She is agreeable to start propafenone 150 mg twice daily. We will get an EKG in a few days to make sure she is tolerating it. She will continue her Cardizem CD 240 mg once daily and she will continue her Pradaxa 150 mg twice daily. No issues with blood loss anemia. [id number] History of Present illness Narrative* Wang Borges MD - 03/16/2022 2:13 PM EDT I replied to her EKG * Angelique Barfield RN - 03/12/2022 1:55 PM EDT Patient presented in office for Nurse Only EKG. EKG completed and routed to ordering physician. Patient pleasantly denies further needs. documented in this [id number] History of Present illness Narrative* Angelique Barfield RN - 03/12/2022 1:55 PM EDT Patient presented in office for Nurse Only EKG. EKG completed and routed to ordering physician. Patient pleasantly denies further needs. documented in this [id number] History of Present illness Narrative* Wang Borges MD - 03/09/2022 9:48 AM EDT Interventional Cardiology Clinic Follow-up Heart & Vascular [facility] 03/09/2022 Wang Borges MD [address] [facility] [address] [place] [id number] Patient: Alma Echeverria Date of : 1940 (81 y.o.) PCP: Sancho Woodruff MD Assessment & Plan Atrial fibrillation (HCC) History of this, she thinks that she did have an irregular heartbeat prior to her issues with worsening shortness of breath. We talked about how paroxysms of A. fib can increase shortness of breath. She is currently only taking Cardizem CD in efforts to control her A. fib. I thought a trial of an antiarrhythmic may be helpful to see if her shortness of breath improves better rhythm control. She is agreeable to start propafenone 150 mg twice daily. We will get an EKG in a few days to make sure she is tolerating it. She will continue her Cardizem CD 240 mg once daily and she will continue her Pradaxa 150 mg twice daily. No issues with blood loss anemia. HTN (hypertension) Home blood pressure is well controlled on Cardizem CD 240 mg once daily and Lasix as needed Coronary artery disease involving [place] coronary artery of [place] heart without angina pectoris Coronary artery disease was noted on her coronary CCTA. It was not significant to warrant intervention. Specifically the LAD was 1 to 24% stenosis, circumflex was trivial, RCA shows 25 to 49% from 2019. No aspirin given chronic Pradaxa use. Continue atorvastatin 10 mg daily with a target LDL of 70.Consider ischemic evaluation should her symptoms of shortness of breath recur Follow-up: Return in about 2 months (around 05/09/2022) for Telephone visit. Chief Complaint: Follow-up (Overdue f/u without medication list/bottles ) Subjective History of Present Illness: Alma Echeverria is a 81 y.o. female who comes in today for routine cardiac follow-up. She tells methrusty in December, she was having gradual progression of dyspnea on exertion. She thinks that she had an irregular heartbeat and perhaps had several days of atrial fibrillation. She did have an echocardiogram at [facility]. I was able to read the report and basically it shows that her EF is normal, no significant valvular heart disease. Her activity level is limited by a bad back. She denies any bloodin her stool or urine. Home blood pressures generally are in the 120s. We talked about how worsening shortness of breath may be related to increased burden of paroxysmal atrial fibrillation. We also d iscussed recent data suggesting atrial fibrillation may be increased by the use of fish oil. We also talked about how fish oil can increase bleeding risk. Objective Tobacco Use Smoking Status Never Smokeless Tobacco Never ECG 12 lead Final Result by Wang Borges MD (03/15/2022 0756) Echocardiogram complete Final Result by Haroon Quintanilla MD (07/29/2016 1048) CT CCTA Heart With And Without Contrast Final Result by Andrew Marie DO (02/12/20202036) CCTA Heart (Clinical Quality Assurance Specialist read) Final Result by Chante Oliva MD (02/12/2020 1035) HOME Medications: Patient's Medications New Prescriptions PROPAFENONE (RYTHMOL) 150 MG TABLET Take 1 (one) tablet (150 mg total) by mouth 2 (two) times a day. Previous Medications AMITIZA 8 MCG CAPSULE Take 8 mcg by mouth 2 (two) times a day with meals . CHOLECALCIFEROL, VITAMIN D3, 1,000 UNIT TABLET Take 1,000 Units by mouth daily . DABIGATRAN (PRADAXA) 150 MG CAPSULE Take 150 mg by mouth 2 (two) times a day . DEXLANSOPRAZOLE (DEXILANT) 30 MG CAPSULE Take 30 mg by mouth daily. DILTIAZEM (CARDIZEM CD) 240 MG 24 HR CAPSULE Take 240 mg by mouth daily . FUROSEMIDE (LASIX) 40 MG TABLET Take 40 mg by mouth daily as needed . LEVOTHYROXINE (SYNTHROID, LEVOTHROID) 50 MCG TABLET MULTIVITAMIN WITH MINERALS TABLET Take 1 tablet by mouth daily . OMEGA-3 FATTY ACIDS/FISH OIL (FISH OIL-OMEGA-3 FATTY ACIDS) 300-1,000 MG CAPSULE Take 2 g by mouth daily . PANTOPRAZOLE (PROTONIX) 20 MG TABLET Take 1 (one) tablet (20 mg total) by mouth daily Start: 12/01/19. POLYETHYLENE GLYCOL (MIRALAX) 17 GRAM POWDER Take 17 g by mouth daily. SULFAMETHOXAZOLE-TRIMETHOPRIM (BACTRIM DS,SEPTRA DS) 800-160 MG PER TABLET Take 1 tablet by mouth 2(two) times a day as needed Reasons: celluitis. TRAMADOL (ULTRAM) 50 MG TABLET Take 50 mg by mouth 2 (two) times a day as needed . Modified Medications Modified Medication Previous Medication ATORVASTATIN (LIPITOR) 10 MG TABLET atorvastatin (Lipitor) 10 MG tablet Take 1 (one) tablet (10 mg total) by mouth daily . Take 1 (one) tablet (10 mg total) by mouth daily. Discontinued Medications No medications on file Vital Signs: BP 136/72 (BP Location: Left arm, Patient Position: Sitting, BP Cuff Size: Other (Comment)) Comment(BP Cuff Size): Large Pulse 73 Ht 4' 10 Wt 74.4 kg (164 lb) SpO2 95% BMI 34.28 kg/m Physical Exam Vitals reviewed. Constitutional: Appearance: Normal appearance. She is well-developed. She is not toxic-appearing. HENT: Head: Normocephalic and atraumatic. Right Ear: Hearing and external ear normal. Left Ear: Hearing and external ear normal. Nose: Nose normal. Eyes: General: Lids are normal. Extraocular Movements: Extraocular movements intact. Conjunctiva/sclera: Conjunctivae normal. Pupils: Pupils are equal, round, and reactive to light. Neck: Vascular: No carotid bruit. Cardiovascular: Rate and Rhythm: Normal rate and regular rhythm. Pulses: Normal pulses. Heart sounds: Normal heart sounds, S1 normal and S2 normal. Comments: No cyanosis, clubbing or edema Pulmonary: Effort: Pulmonary effort is normal. Breath sounds: Normal breath sounds. Musculoskeletal: General: Normal range of motion. Cervical back: Normal range of motion. Skin: General: Skin is warm and dry. Neurological: Mental Status: She is alert and oriented to person, place, and time. Psychiatric: Behavior: Behavior normal. Thought Content: Thought content normal. Judgment: Judgment normal. Labs: I personally reviewed and interpreted the labs documented below. Lab Results Component Value Date TRIG 76 08/09/2016 Creatinine clearance cannot be calculated (Patient's most recent lab result is older than the maximum 14 days allowed.) documented in this [id number] History of Present illness Narrative* Christine Voss, ELIJAH - 02/10/2022 3:42 PM EDT [facility] [address] [address] [facility] [phone] No chief complaint on file. Alma Echeverria returns to the office today for an injection to the left shoulder. She denies any changes in the shoulder. She isn't interested in any type of surgery at this time. The patient's past medical history, surgical history, social history, family history, medications and allergies were reviewed with the patient today and are available in the chart for further review. Allergies Allergen Reactions Codeine Other (See Comments) skin crawling Other reaction(s): Other (See Comments) skin crawling Nausea Flexeril [Cyclobenzaprine] AND OTHER MUSCLE RELAXERS Ibuprofen Other (See Comments) and GI Intolerance Upset stomach Other reaction(s): Nausea Only Other reaction(s): Other (See Comments) Upset stomach Latex Lisinopril-Hydrochlorothiazide Nylon Adhesive Tape-Silicones Rash Current Outpatient Medications: AMITIZA 8 mcg capsule, Take 8 mcg by mouth 2 (two) times a day with meals ., Disp: , Rfl: atorvastatin (Lipitor) 10 MG tablet, Take 1 (one) tablet (10 mg total) by mouth daily ., Disp: 90 tablet, Rfl: 0 cholecalciferol, vitamin D3, 1,000 unit tablet, Take 1,000 Units by mouth daily ., Disp: , Rfl: dabigatran (PRADAXA) 150 mg capsule, Take 150 mg by mouth 2 (two) times a day ., Disp: , Rfl: dexlansoprazole (DEXILANT) 30 mg capsule, Take 30 mg by mouth daily., Disp: , Rfl: diltiazem (CARDIZEM CD) 240 MG 24 hr capsule, Take 240 mg by mouth daily ., Disp: , Rfl: furosemide (LASIX) 40 MG tablet, Take 40 mg by mouth daily as needed ., Disp: , Rfl: levothyroxine (SYNTHROID, LEVOTHROID) 50 MCG tablet, , Disp: , Rfl: multivitamin with minerals tablet, Take 1 tablet by mouth daily ., Disp: , Rfl: omega-3 fatty acids/fish oil (fish oil-omega-3 fatty acids) 300-1,000 mg capsule, Take 2 g by mouthdaily ., Disp: , Rfl: polyethylene glycol (MIRALAX) 17 gram powder, Take 17 g by mouth daily., Disp: , Rfl: sulfamethoxazole-trimethoprim (BACTRIM DS,SEPTRA DS) 800-160 mg per tablet, Take 1 tablet by mouth 2 (two) times a day as needed Reasons: celluitis., Disp: , Rfl: traMADoL (ULTRAM) 50 mg tablet, Take 50 mg by mouth 2 (two) times a day as needed ., Disp: , Rfl: pantoprazole (PROTONIX) 20 MG tablet, Take 1 (one) tablet (20 mg total) by mouth daily Start: 12/01/19. (Patient not taking: Reported on 11/19/2020 .), Disp: 30 tablet, Rfl: 0 Past Medical History: Diagnosis Date Abdominal pain Arm numbness Arm weakness Arthritis Atrial fibrillation (HCC) Hanley esophagus Endometrial cancer (HCC) 1970 uterine ca Frequent UTI History of blood transfusion HLD (hyperlipidemia) Hypertension Leg numbness Leg weakness Liver cirrhosis secondary to nonalcoholic steatohepatitis (MATTHEW) (HCC) Squamous cell skin cancer Uterine mass Reportedly benign Past Surgical History: Procedure Laterality Date APPENDECTOMY ARTHROPLASTY SHOULDER REVERSE Right 11/29/2019 Procedure: Reverse right total shoulder replacement; Surgeon: Dada Hathaway MD; Location: Main OR; Service: Orthopedic CATARACTS CHOLECYSTECTOMY EXPLORATORY LAPAROTOMY N/A 07/29/2016 Procedure: EXPLORATORY LAPAROTOMY LYSIS OF ADHESION ; Surgeon: Smooth Sarabia MD; Location: [facility] Main OR; Service: FOOT FUSION FOOT SURGERY GALLBLADDER HIP REPLACEMENT RIGHT RIGHT HYSTERECTOMY KNEE REPLACEMENT BILATERAL BILATERAL OOPHORECTOMY RADIATION uterine ca TONSILLECTOMY TOTAL HIP ARTHROPLASTY Right TOTAL KNEE ARTHROPLASTY Bilateral TUMOR EXCISION NEAR OVARIES VEIN LIGATION Social History Socioeconomic History Marital status: Tobacco Use Smoking status: Never Smoker Smokeless tobacco: Never Used Vaping Use Vaping Use: Never used Substance and Sexual Activity Alcohol use: Yes Comment: occasional Drug use: No Imaging: No new imaging, reviewed from prior visit Assessment/Plan: Injection to the left shoulder per patient request. I did this without complications and she tolerated this well. I am happy to see her back as needed. documented in this [id number] History of Present illness Narrative* Since the last office visit there have been no interval operations, hospitalizations, important illnesses or injuries. * after lasst month had increased in leg edema /stinging. had cortisone shot in left hip last week. then last week swelling started fgoing down. knee to ankle * recc daily dose lasix * still on tid tramdol for back. I have personally reviewed the OARRS report for the above patient. This report is scanned into the electronic medical record. I have considered the risks of abuse, dependence, addiction, and diversion. I believe that it is clinically appropriate for the above patient to be prescribed this medication. * effective and no side effects. [facility] Work Phone: [phone] 823-217504-20-2022 History of Present illness Narrative* Christine Voss CNP - 01/27/2022 9:00 AM EDT [facility] [address] [facility] [address] [facility] [phone] Alma Echeverria returns to the office today for an injection to the left hip. She has received these in the past and they provide her with continued relief. She isn't interested in any type of surgery at this time. The patient's past medical history, surgical history, social history, family history, medications and allergies were reviewed with the patient today and are available in the chart for further review. Allergies Allergen Reactions Codeine Other (See Comments) skin crawling Other reaction(s): Other (See Comments) skin crawling Nausea Flexeril [Cyclobenzaprine] AND OTHER MUSCLE RELAXERS Ibuprofen Other (See Comments) and GI Intolerance Upset stomach Other reaction(s): Nausea Only Other reaction(s): Other (See Comments) Upset stomach Latex Lisinopril-Hydrochlorothiazide Nylon Adhesive Tape-Silicones Rash Current Outpatient Medications: AMITIZA 8 mcg capsule, Take 8 mcg by mouth 2 (two) times a day with meals ., Disp: , Rfl: atorvastatin (Lipitor) 10 MG tablet, Take 1 (one) tablet (10 mg total) by mouth daily ., Disp: 90 tablet, Rfl: 0 cholecalciferol, vitamin D3, 1,000 unit tablet, Take 1,000 Units by mouth daily ., Disp: , Rfl: dabigatran (PRADAXA) 150 mg capsule, Take 150 mg by mouth 2 (two) times a day ., Disp: , Rfl: dexlansoprazole (DEXILANT) 30 mg capsule, Take 30 mg by mouth daily., Disp: , Rfl: diltiazem (CARDIZEM CD) 240 MG 24 hr capsule, Take 240 mg by mouth daily ., Disp: , Rfl: furosemide (LASIX) 40 MG tablet, Take 40 mg by mouth daily as needed ., Disp: , Rfl: multivitamin with minerals tablet, Take 1 tablet by mouth daily ., Disp: , Rfl: omega-3 fatty acids/fish oil (fish oil-omega-3 fatty acids) 300-1,000 mg capsule, Take 2 g by mouthdaily ., Disp: , Rfl: pantoprazole (PROTONIX) 20 MG tablet, Take 1 (one) tablet (20 mg total) by mouth daily Start: 12/01/19. (Patient not taking: Reported on 11/19/2020 .), Disp: 30 tablet, Rfl: 0 polyethylene glycol (MIRALAX) 17 gram powder, Take 17 g by mouth daily., Disp: , Rfl: sulfamethoxazole-trimethoprim (BACTRIM DS,SEPTRA DS) 800-160 mg per tablet, Take 1 tablet by mouth 2 (two) times a day as needed Reasons: celluitis., Disp: , Rfl: traMADoL (ULTRAM) 50 mg tablet, Take 50 mg by mouth 2 (two) times a day as needed ., Disp: , Rfl: Past Medical History: Diagnosis Date Abdominal pain Arm numbness Arm weakness Arthritis Atrial fibrillation (HCC) Hanley esophagus Endometrial cancer (HCC) 1970 uterine ca Frequent UTI History of blood transfusion HLD (hyperlipidemia) Hypertension Leg numbness Leg weakness Liver cirrhosis secondary to nonalcoholic steatohepatitis (MATTHEW) (HCC) Squamous cell skin cancer Uterine mass Reportedly benign Past Surgical History: Procedure Laterality Date APPENDECTOMY ARTHROPLASTY SHOULDER REVERSE Right 11/29/2019 Procedure: Reverse right total shoulder replacement; Surgeon: Dada Hathaway MD; Location: Main OR; Service: Orthopedic CATARACTS CHOLECYSTECTOMY EXPLORATORY LAPAROTOMY N/A 07/29/2016 Procedure: EXPLORATORY LAPAROTOMY LYSIS OF ADHESION ; Surgeon: Smooth Sarabia MD; Location: [facility] Main OR; Service: FOOT FUSION FOOT SURGERY GALLBLADDER HIP REPLACEMENT RIGHT RIGHT HYSTERECTOMY KNEE REPLACEMENT BILATERAL BILATERAL OOPHORECTOMY RADIATION uterine ca TONSILLECTOMY TOTAL HIP ARTHROPLASTY Right TOTAL KNEE ARTHROPLASTY Bilateral TUMOR EXCISION NEAR OVARIES VEIN LIGATION Social History Socioeconomic History Marital status: Tobacco Use Smoking status: Never Smoker Smokeless tobacco: Never Used Vaping Use Vaping Use: Never used Substance and Sexual Activity Alcohol use: Yes Comment: occasional Drug use: No Imaging: no new imaging, reviewed from prior visit. Assessment/Plan:Injections to left hip per patient request. I did this without complications and she tolerated this well. I am happy to see her back as needed. documented in this [id number] History of Present illness Narrative* increasing edema in legs. uncomfortable. has used lasix 0-1 per week until last co weeks and no w daily use. has not increased salt intake. * Notes no change in exercise tolerance or capacity. No PND. Has not noted any paroxysmal atrial fibrillation. Is somewhat improved on Lasix daily. Mild erythema. [facility] Work Phone: [phone]) 676-992503-02-2022 Telephone encounter Note* Telephone Encounter - Shirley Perez MA - 12/09/2021 11:27 AM EST Received refill request electronically via [employer]. Pt last seen 11/19/2020, F/u in 6 months. Refilled Atorvastatin 10mg Daily #90 with 0 refill. Rx sent to [facility]. No Recall is in place,will send message to [facility]. No FLP [id number] Miscellaneous Notes* Telephone Encounter - Shirley Perez MA - 12/09/2021 11:27 AM EST Received refill request electronically via [employer]. Pt last seen 11/19/2020, F/u in 6 months. Refilled Atorvastatin 10mg Daily #90 with 0 refill. Rx sent to [facility]. No Recall is in place,will send message to [facility]. No FLP documented in this [id number] History of Present illness Narrative* GERD-Takes PPI daily with no breakthrough symptoms. Reviewed dietary, caffeine, tobacco, alcohol, and NSAID avoidance. * Hyperlipidemia- is on statin and a prudent diet. * on tramad o for back, takes 3 a day lately for las tmonth for inc pain. was at 2. 90 lasts [address] hernandez and had injections wothout much benefgit. seees chiro dr mims weekly, does some hep stretches. 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 sisiter woth colon cancer and personal hx polyps * has sone pain historically woth appy, hyster, gb and hx of adhesions and KIRK. [facility] Work Phone: [phone] 757-748501-04-2022 History of Present illness Narrative* Christine Voss, [employer] - 10/13/2021 11:24 AM EST [facility] [address] [facility] [address] [facility] [id number] No chief complaint on file. Alma Echeverria returns to the office today for injections to the left shoulder and left hip bursa. She has received these in the past and they continue to provide her with adequate pain relief. She isn't interested in any type of surgery at this time. The patient's past medical history, surgical history, social history, family history, medications and allergies were reviewed with the patient today and are available in the chart for further review. Allergies Allergen Reactions Codeine Other (See Comments) skin crawling Other reaction(s): Other (See Comments) skin crawling Nausea Flexeril [Cyclobenzaprine] AND OTHER MUSCLE RELAXERS Ibuprofen Other (See Comments) and GI Intolerance Upset stomach Other reaction(s): Nausea Only Other reaction(s): Other (See Comments) Upset stomach Latex Lisinopril-Hydrochlorothiazide Nylon Adhesive Tape-Silicones Rash Current Outpatient Medications: AMITIZA 8 mcg capsule, Take 8 mcg by mouth 2 (two) times a day with meals ., Disp: , Rfl: atorvastatin (Lipitor) 10 MG tablet, Take 1 (one) tablet (10 mg total) by mouth daily ., Disp: 30 tablet, Rfl: 11 cholecalciferol, vitamin D3, 1,000 unit tablet, Take 1,000 Units by mouth daily ., Disp: , Rfl: dabigatran (PRADAXA) 150 mg capsule, Take 150 mg by mouth 2 (two) times a day ., Disp: , Rfl: dexlansoprazole (DEXILANT) 30 mg capsule, Take 30 mg by mouth daily., Disp: , Rfl: diltiazem (CARDIZEM CD) 240 MG 24 hr capsule, Take 240 mg by mouth daily ., Disp: , Rfl: furosemide (LASIX) 40 MG tablet, Take 40 mg by mouth daily as needed ., Disp: , Rfl: multivitamin with minerals tablet, Take 1 tablet by mouth daily ., Disp: , Rfl: omega-3 fatty acids/fish oil (fish oil-omega-3 fatty acids) 300-1,000 mg capsule, Take 2 g by mouthdaily ., Disp: , Rfl: polyethylene glycol (MIRALAX) 17 gram powder, Take 17 g by mouth daily., Disp: , Rfl: sulfamethoxazole-trimethoprim (BACTRIM DS,SEPTRA DS) 800-160 mg per tablet, Take 1 tablet by mouth 2 (two) times a day as needed Reasons: celluitis., Disp: , Rfl: traMADoL (ULTRAM) 50 mg tablet, Take 50 mg by mouth 2 (two) times a day as needed ., Disp: , Rfl: pantoprazole (PROTONIX) 20 MG tablet, Take 1 (one) tablet (20 mg total) by mouth daily Start: 12/01/19. (Patient not taking: Reported on 11/19/2020 .), Disp: 30 tablet, Rfl: 0 Past Medical History: Diagnosis Date Abdominal pain Arm numbness Arm weakness Arthritis Atrial fibrillation (HCC) Hanley esophagus Endometrial cancer (HCC) 1970 uterine ca Frequent UTI History of blood transfusion HLD (hyperlipidemia) Hypertension Leg numbness Leg weakness Liver cirrhosis secondary to nonalcoholic steatohepatitis (MATTHEW) (HCC) Squamous cell skin cancer Uterine mass Reportedly benign Past Surgical History: Procedure Laterality Date APPENDECTOMY ARTHROPLASTY SHOULDER REVERSE Right 11/29/2019 Procedure: Reverse right total shoulder replacement; Surgeon: Dada Hathaway MD; Location: Main OR; Service: Orthopedic CATARACTS CHOLECYSTECTOMY EXPLORATORY LAPAROTOMY N/A 07/29/2016 Procedure: EXPLORATORY LAPAROTOMY LYSIS OF ADHESION ; Surgeon: Smooth Sarabia MD; Location: [facility] Main OR; Service: FOOT FUSION FOOT SURGERY GALLBLADDER HIP REPLACEMENT RIGHT RIGHT HYSTERECTOMY KNEE REPLACEMENT BILATERAL BILATERAL OOPHORECTOMY RADIATION uterine ca TONSILLECTOMY TOTAL HIP ARTHROPLASTY Right TOTAL KNEE ARTHROPLASTY Bilateral TUMOR EXCISION NEAR OVARIES VEIN LIGATION Social History Socioeconomic History Marital status: Tobacco Use Smoking status: Never Smoker Smokeless tobacco: Never Used Vaping Use Vaping Use: Never used Substance and Sexual Activity Alcohol use: Yes Comment: occasional Drug use: No Social Determinants of Health Financial Resource Strain: Unknown Difficulty of Paying Living Expenses: Patient refused Food Insecurity: Unknown Worried About Running Out of Food in the Last Year: Patient refused Ran Out of Food in the Last Year: Patient refused Transportation Needs: Unknown Lack of Transportation (Medical): Patient refused Lack of Transportation (Non-Medical): Patient refused Physical Activity: Insufficiently Active Days of Exercise per Week: 2 days Minutes of Exercise per Session: 20 min Stress: No Stress Concern Present Feeling of Stress : Only a little Imaging: No new imaging Assessment/Plan: Injections to the left shoulder and left hip bursa per patient request. I did thiswithout complications and she tolerated this well. I am more than happy to see her back as needed. * Christine Voss CNP - 10/13/2021 11:22 AM EST Associated Order(s): LG Jt Injection/Arthrocentesis: L greater trochanteric bursa; LG Jt Injection/Arthrocentesis: L glenohumeral Post-Procedure Diagnose(s): Greater trochanteric bursitis of left hip; Rotator cuff disorder, left LG Jt Injection/Arthrocentesis: L greater trochanteric bursa Performed by: Christine Voss CNP Authorized by: Christine Voss CNP CPT 99687 - Large Joint Arthrocentesis: Consent given by: Patient Time out: Immediately prior to the procedure a time out was called Physician or proceduralist has discussed critical or nonroutine steps, procedure duration and anticipated blood loss: Yes Supporting Documentation: Indications: Diagnostic evaluation and pain Procedure Details: Location: Hip Site: L greater trochanteric bursa Prep: patient was prepped and draped in usual sterile fashion Needle size: 22 G Medications: 40 mg triamcinolone acetonide 40 mg/mL Anesthetic used: Lidocaine 1% Anesthetic amount (mL): 2 Patient tolerance: Patient tolerated the procedure well with no immediate complications LG Jt Injection/Arthrocentesis: L glenohumeral Performed by: Christine Voss CNP Authorized by: Christine Voss CNP CPT 73796 - Large Joint Arthrocentesis: Consent given by: Patient Time out: Immediately prior to the procedure a time out was called Physician or proceduralist has discussed critical or nonroutine steps, procedure duration and anticipated blood loss: Yes Supporting Documentation: Indications: Pain and diagnostic evaluation Procedure Details: Location: Shoulder Site: L glenohumeral Prep: patient was prepped and draped in usual sterile fashion Needle size: 22 G Approach: Posterior Medications: 40 mg triamcinolone acetonide 40 mg/mL Anesthetic used: Lidocaine 1% Anesthetic amount (mL): 2 Patient tolerance: Patient tolerated the procedure well with no immediate complications documented in this [id number] History of Present illness Narrative* Ricky Bassett Jr., DPM - 08/05/2021 12:07 PM EDT Calluses Patient is a pleasant 80-year-old female who complains today of bilateral heel calluses. States that her skin is very thick sore uncomfortable. She is been trying to use an emery board to get them flatter but is not working she states that she needs to get them improved as they are sore. Additionally primary care is managed by an geriatric care is managed by Dr. Goldberg, date of last service is July 14, 2021. Physical DP pulses are palpable 2 out of 4 bilaterally. PT pulses are nonpalpable bilaterally. CFT is delayed with mild foot and ankle edema. Derm: Hyperkeratosis present to the bilateral posterior heel no open wounds no ulcers no rashes no deep nodules. Skin is shiny atrophic dysvascular with absence of hair growth. Neuro: Light touch is normal Babinski's is normal. Musculoskeletal: Can easily wiggle toes without any clicking or catching. Assessment and plan: Patient is a pleasant 80-year-old female with peripheral arterial disease bilaterally and 2 calluses. -Life arterial disease, she is currently symptom-free without claudication or ulceration therefore will defer PVRs and ABIs. -She does qualify for high risk callus care due to her arterial disease. Additionally can apply topical ammonium lactate to her calluses daily. Procedure: Calluses were sharply debrided and debulked in height and width with a 15 blade after analcohol prep and a timeout consent was performed. Follow-up in 2 to 3 months to reevaluate. Low medical complexity decision making in light of her arterial disease and chronicity of calluses. documented in this [id number] History of Present illness Narrative* Christine Voss CNP - 06/25/2021 12:23 PM EDT Associated Order(s): LG Jt Injection/Arthrocentesis: L greater trochanteric bursa Post-Procedure Diagnose(s): Greater trochanteric bursitis of left hip LG Jt Injection/Arthrocentesis: L greater trochanteric bursa Performed by: Christine Voss CNP Authorized by: Christine Voss CNP CPT 88761 - Large Joint Arthrocentesis: Consent given by: Patient Time out: Immediately prior to the procedure a time out was called Physician or proceduralist has discussed critical or nonroutine steps, procedure duration and anticipated blood loss: Yes Supporting Documentation: Indications: Diagnostic evaluation and pain Procedure Details: Location: Hip Site: L greater trochanteric bursa Prep: patient was prepped and draped in usual sterile fashion Needle size: 22 G Approach: Lateral Medications: 40 mg triamcinolone acetonide 40 mg/mL Anesthetic used: Lidocaine 1% Anesthetic amount (mL): 2 Patient tolerance: Patient tolerated the procedure well with no immediate complications * Christine Voss CNP - 06/23/2021 7:21 PM EDT Images from the original note were not included. [facility] [address] [facility] [address] [facility] [id number] Chief Complaint Patient presents with Left Hip - Pain Alma Echeverria returns to the office today for pain in the left hip. She reports this pain starting approximately 2 months ago without any known injury. She describes the pain as being along the outside portion of her hip. She denies any pain into the groin or down the front of her leg. She is finding it more difficult to stand for long periods of time or even sit for long periods of time without the hip becoming painful. She is unable to sleep on that left side due to the hip pain. She hastried taking Tylenol for pain relief which does not seem to take the pain completely away. She is unable to take any type of ibuprofen due to being on a blood thinner and also GI upset. She denies any significant loss of range of motion. She states that she is still able to do but seem to consistently have this pain. Is 40 years old she does not want any type of surgery at this point in time The patient's past medical history, surgical history, social history, family history, medications and allergies were reviewed with the patient today and are available in the chart for further review. Allergies Allergen Reactions Codeine Other (See Comments) skin crawling Other reaction(s): Other (See Comments) skin crawling Nausea Flexeril [Cyclobenzaprine] AND OTHER MUSCLE RELAXERS Ibuprofen Other (See Comments) and GI Intolerance Upset stomach Other reaction(s): Nausea Only Other reaction(s): Other (See Comments) Upset stomach Latex Lisinopril-Hydrochlorothiazide Nylon Adhesive Tape-Silicones Rash Current Outpatient Medications: AMITIZA 8 mcg capsule, Take 8 mcg by mouth 2 (two) times a day with meals ., Disp: , Rfl: atorvastatin (Lipitor) 10 MG tablet, Take 1 (one) tablet (10 mg total) by mouth daily ., Disp: 30 tablet, Rfl: 11 cholecalciferol, vitamin D3, 1,000 unit tablet, Take 1,000 Units by mouth daily ., Disp: , Rfl: dabigatran (PRADAXA) 150 mg capsule, Take 150 mg by mouth 2 (two) times a day ., Disp: , Rfl: dexlansoprazole (DEXILANT) 30 mg capsule, Take 30 mg by mouth daily., Disp: , Rfl: diltiazem (CARDIZEM CD) 240 MG 24 hr capsule, Take 240 mg by mouth daily ., Disp: , Rfl: furosemide (LASIX) 40 MG tablet, Take 40 mg by mouth daily as needed ., Disp: , Rfl: multivitamin with minerals tablet, Take 1 tablet by mouth daily ., Disp: , Rfl: omega-3 fatty acids/fish oil (fish oil-omega-3 fatty acids) 300-1,000 mg capsule, Take 2 g by mouthdaily ., Disp: , Rfl: polyethylene glycol (MIRALAX) 17 gram powder, Take 17 g by mouth daily., Disp: , Rfl: sulfamethoxazole-trimethoprim (BACTRIM DS,SEPTRA DS) 800-160 mg per tablet, Take 1 tablet by mouth 2 (two) times a day as needed Reasons: celluitis., Disp: , Rfl: traMADoL (ULTRAM) 50 mg tablet, Take 50 mg by mouth 2 (two) times a day as needed ., Disp: , Rfl: pantoprazole (PROTONIX) 20 MG tablet, Take 1 (one) tablet (20 mg total) by mouth daily Start: 12/01/19. (Patient not taking: Reported on 11/19/2020 .), Disp: 30 tablet, Rfl: 0 Past Medical History: Diagnosis Date Abdominal pain Arm numbness Arm weakness Arthritis Atrial fibrillation (HCC) Hanley esophagus Endometrial cancer (HCC) 1970 uterine ca Frequent UTI History of blood transfusion HLD (hyperlipidemia) Hypertension Leg numbness Leg weakness Liver cirrhosis secondary to nonalcoholic steatohepatitis (MATTHEW) (HCC) Squamous cell skin cancer Uterine mass Reportedly benign Past Surgical History: Procedure Laterality Date APPENDECTOMY ARTHROPLASTY SHOULDER REVERSE Right 11/29/2019 Procedure: Reverse right total shoulder replacement; Surgeon: Dada Hathaway MD; Location: Main OR; Service: Orthopedic CATARACTS CHOLECYSTECTOMY EXPLORATORY LAPAROTOMY N/A 07/29/2016 Procedure: EXPLORATORY LAPAROTOMY LYSIS OF ADHESION ; Surgeon: Smooth Sarabia MD; Location: [facility] Main OR; Service: FOOT FUSION FOOT SURGERY GALLBLADDER HIP REPLACEMENT RIGHT RIGHT HYSTERECTOMY KNEE REPLACEMENT BILATERAL BILATERAL OOPHORECTOMY RADIATION uterine ca TONSILLECTOMY TOTAL HIP ARTHROPLASTY Right TOTAL KNEE ARTHROPLASTY Bilateral TUMOR EXCISION NEAR OVARIES VEIN LIGATION Social History Socioeconomic History Marital status: Spouse name: Not on file Number of children: Not on file Years of education: Not on file Highest education level: Not on file Occupational History Not on file Tobacco Use Smoking status: Never Smoker Smokeless tobacco: Never Used Vaping Use Vaping Use: Never used Substance and Sexual Activity Alcohol use: Yes Comment: occasional Drug use: No Sexual activity: Not on file Other Topics Concern Not on file Social History Narrative Not on file Social Determinants of Health Financial Resource Strain: Unknown Difficulty of Paying Living Expenses: Patient refused Food Insecurity: Unknown Worried About Running Out of Food in the Last Year: Patient refused Ran Out of Food in the Last Year: Patient refused Transportation Needs: Unknown Lack of Transportation (Medical): Patient refused Lack of Transportation (Non-Medical): Patient refused Physical Activity: Insufficiently Active Days of Exercise per Week: 2 days Minutes of Exercise per Session: 20 min Stress: No Stress Concern Present Feeling of Stress : Only a little Social Connections: Frequency of Communication with Friends and Family: Not on file Frequency of Social Gatherings with Friends and Family: Not on file Attends Judaism Services: Not on file Active Member of Clubs or Organizations: Not on file Attends Club or Organization Meetings: Not on file Marital Status: Not on file Housing Stability: Unable to Pay for Housing in the Last Year: Not on file Number of Places Lived in the Last Year: Not on file Unstable Housing in the Last Year: Not on file ROS: Review of Systems Constitutional: Negative for activity change and fatigue. HENT: Negative for congestion, hearing loss and trouble swallowing. Eyes: Negative for visual disturbance. Respiratory: Negative for chest tightness and shortness of breath. Cardiovascular: Negative for chest pain and palpitations. Gastrointestinal: Negative for abdominal pain, diarrhea, nausea and vomiting. Endocrine: Negative for polydipsia, polyphagia and polyuria. Genitourinary: Negative for decreased urine volume, difficulty urinating and hematuria. Musculoskeletal: Positive for arthralgias and myalgias. Negative for joint swelling. Skin: Negative for color change, rash and wound. Allergic/Immunologic: Negative for immunocompromised state. Neurological: Negative for dizziness, weakness, light-headedness and numbness. Hematological: Does not bruise/bleed easily. Psychiatric/Behavioral: Negative for confusion and sleep disturbance. The patient is not nervous/anxious. PE: Physical Exam Constitutional: Appearance: She is well-developed. HENT: Head: Normocephalic. Eyes: Pupils: Pupils are equal, round, and reactive to light. Cardiovascular: Rate and Rhythm: Normal rate and regular rhythm. Pulmonary: Effort: Pulmonary effort is normal. Breath sounds: Normal breath sounds. Abdominal: General: Bowel sounds are normal. Palpations: Abdomen is soft. Musculoskeletal: General: Normal range of motion. Cervical back: Normal range of motion and neck supple. Left hip: Tenderness present. Legs: Skin: General: Skin is warm and dry. Neurological: Mental Status: She is alert and oriented to person, place, and time. ORTHO: Left Hip Exam Tenderness The patient is experiencing tenderness in the lateral and greater trochanter. Range of Motion External rotation: 40 Internal rotation: 20 Muscle Strength The patient has normal left hip strength. Tests BIBI: positive Freda: negative Other Erythema: absent Scars: absent Sensation: normal Pulse: present Imaging: Left hip No acute fracture or dislocation. There are moderate to severe degenerative changes in the left hip. Formal radiology read to follow. Assessment/Plan: After examination and reviewing the patient x-ray images we discussed treatment options. Even though she has got significant arthritis in that left hip joint she has the most pain along the lateral portion of the thigh. I offered her a cortisone injection to the left hip bursa which she gladly accepted. I did this without complications and she tolerated this well. I did inform her that in 2 weeks if there was no improvement she is to return to the office. If she does develop increasing symptoms such as pain in the groin or down the front she is also to return for follow-up. She does verbalize understanding and is in agreement with this treatment plan. I am more than happy to see her back as needed. documented in this [id number] History of Present illness Narrative* Christine Voss CNP - 02/25/2021 4:35 PM EDT Associated Order(s): LG Jt Injection/Arthrocentesis: L glenohumeral Post-Procedure Diagnose(s): Rotator cuff disorder, left LG Jt Injection/Arthrocentesis: L glenohumeral Performed by: Christine Voss CNP Authorized by: Christine Voss CNP CPT 94421 - Large Joint Arthrocentesis: Consent given by: Patient Time out: Immediately prior to the procedure a time out was called Physician or proceduralist has discussed critical or nonroutine steps, procedure duration and anticipated blood loss: Yes Supporting Documentation: Indications: Pain and diagnostic evaluation Procedure Details: Location: Shoulder Site: L glenohumeral Prep: patient was prepped and draped in usual sterile fashion Needle size: 22 G Approach: Posterior Medications: 40 mg triamcinolone acetonide 40 mg/mL Anesthetic used: Lidocaine 1% Anesthetic amount (mL): 2 Patient tolerance: Patient tolerated the procedure well with no immediate complications * Christine Voss CNP - 02/25/2021 4:25 PM EDT [facility] [address] [facility] [address] [facility] [address] Chief Complaint Patient presents with Injections Alma Echeverria returns to the office today for an injection to the left shoulder. The shoulder has been about the same. Her last injection was may of 2020 but the shoulder began to hurt her again, months ago. She lost her son in the fall which was very difficult for her and she is just now getting around taking care of herself. She would like to continue with the injections at this time. She isn't ready for any type of surgery. The patient's past medical history, surgical history, social history, family history, medications and allergies were reviewed with the patient today and are available in the chart for further review. Allergies Allergen Reactions Codeine Other (See Comments) skin crawling Other reaction(s): Other (See Comments) skin crawling Nausea Flexeril [Cyclobenzaprine] AND OTHER MUSCLE RELAXERS Ibuprofen Other (See Comments) and GI Intolerance Upset stomach Other reaction(s): Nausea Only Other reaction(s): Other (See Comments) Upset stomach Latex Lisinopril-Hydrochlorothiazide Nylon Adhesive Tape-Silicones Rash Current Outpatient Medications: AMITIZA 8 mcg capsule, Take 8 mcg by mouth 2 (two) times a day with meals ., Disp: , Rfl: atorvastatin (Lipitor) 10 MG tablet, Take 1 (one) tablet (10 mg total) by mouth daily ., Disp: 30 tablet, Rfl: 11 cholecalciferol, vitamin D3, 1,000 unit tablet, Take 1,000 Units by mouth daily ., Disp: , Rfl: dabigatran (PRADAXA) 150 mg capsule, Take 150 mg by mouth 2 (two) times a day ., Disp: , Rfl: dexlansoprazole (DEXILANT) 30 mg capsule, Take 30 mg by mouth daily., Disp: , Rfl: diltiazem (CARDIZEM CD) 240 MG 24 hr capsule, Take 240 mg by mouth daily ., Disp: , Rfl: furosemide (LASIX) 40 MG tablet, Take 40 mg by mouth daily as needed ., Disp: , Rfl: multivitamin with minerals tablet, Take 1 tablet by mouth daily ., Disp: , Rfl: omega-3 fatty acids/fish oil (fish oil-omega-3 fatty acids) 300-1,000 mg capsule, Take 2 g by mouthdaily ., Disp: , Rfl: polyethylene glycol (MIRALAX) 17 gram powder, Take 17 g by mouth daily., Disp: , Rfl: sulfamethoxazole-trimethoprim (BACTRIM DS,SEPTRA DS) 800-160 mg per tablet, Take 1 tablet by mouth 2 (two) times a day as needed Reasons: celluitis., Disp: , Rfl: traMADoL (ULTRAM) 50 mg tablet, Take 50 mg by mouth 2 (two) times a day as needed ., Disp: , Rfl: pantoprazole (PROTONIX) 20 MG tablet, Take 1 (one) tablet (20 mg total) by mouth daily Start: 12/01/19. (Patient not taking: Reported on 11/19/2020 .), Disp: 30 tablet, Rfl: 0 Past Medical History: Diagnosis Date Abdominal pain Arm numbness Arm weakness Arthritis Atrial fibrillation (HCC) Hanley esophagus Endometrial cancer (HCC) 1970 uterine ca Frequent UTI History of blood transfusion HLD (hyperlipidemia) Hypertension Leg numbness Leg weakness Liver cirrhosis secondary to nonalcoholic steatohepatitis (MATTHEW) (HCC) Squamous cell skin cancer Uterine mass Reportedly benign Past Surgical History: Procedure Laterality Date APPENDECTOMY ARTHROPLASTY SHOULDER REVERSE Right 11/29/2019 Procedure: Reverse right total shoulder replacement; Surgeon: Dada Hathaway MD; Location: Main OR; Service: Orthopedic CATARACTS CHOLECYSTECTOMY EXPLORATORY LAPAROTOMY N/A 07/29/2016 Procedure: EXPLORATORY LAPAROTOMY LYSIS OF ADHESION ; Surgeon: Smooth Sarabia MD; Location: [facility] [place] Main [place]; Service: FOOT FUSION FOOT SURGERY GALLBLADDER HIP REPLACEMENT RIGHT RIGHT HYSTERECTOMY KNEE REPLACEMENT BILATERAL BILATERAL OOPHORECTOMY RADIATION uterine ca TONSILLECTOMY TOTAL HIP ARTHROPLASTY Right TOTAL KNEE ARTHROPLASTY Bilateral TUMOR EXCISION NEAR OVARIES VEIN LIGATION Social History Socioeconomic History Marital status: Spouse name: Not on file Number of children: Not on file Years of education: Not on file Highest education level: Not on file Occupational History Not on file Tobacco Use Smoking status: Never Smoker Smokeless tobacco: Never Used Vaping Use Vaping Use: Never used Substance and Sexual Activity Alcohol use: Yes Comment: occasional Drug use: No Sexual activity: Not on file Other Topics Concern Not on file Social History Narrative Not on file Social Determinants of Health Financial Resource Strain: Difficulty of Paying Living Expenses: Food Insecurity: Worried About Running Out of Food in the Last Year: Ran Out of Food in the Last Year: Transportation Needs: Lack of Transportation (Medical): Lack of Transportation (Non-Medical): Physical Activity: Days of Exercise per Week: Minutes of Exercise per Session: Stress: Feeling of Stress : Social Connections: Frequency of Communication with Friends and Family: Frequency of Social Gatherings with Friends and Family: Attends Judaism Services: Active Member of Clubs or Organizations: Attends Club or Organization Meetings: Marital Status: ROS: Review of Systems Constitutional: Negative for activity change and fatigue. HENT: Negative for congestion, hearing loss and trouble swallowing. Eyes: Negative for visual disturbance. Respiratory: Negative for chest tightness and shortness of breath. Cardiovascular: Negative for chest pain and palpitations. Gastrointestinal: Negative for abdominal pain, diarrhea, nausea and vomiting. Endocrine: Negative for polydipsia, polyphagia and polyuria. Genitourinary: Negative for decreased urine volume, difficulty urinating and hematuria. Musculoskeletal: Positive for arthralgias. Negative for joint swelling and myalgias. Skin: Negative for color change, rash and wound. Allergic/Immunologic: Negative for immunocompromised state. Neurological: Negative for dizziness, weakness, light-headedness and numbness. Hematological: Does not bruise/bleed easily. Psychiatric/Behavioral: Negative for confusion and sleep disturbance. The patient is not nervous/anxious. PE: Physical Exam Constitutional: Appearance: She is well-developed. HENT: Head: Normocephalic. Eyes: Pupils: Pupils are equal, round, and reactive to light. Cardiovascular: Rate and Rhythm: Normal rate and regular rhythm. Pulmonary: Effort: Pulmonary effort is normal. Breath sounds: Normal breath sounds. Abdominal: General: Bowel sounds are normal. Palpations: Abdomen is soft. Musculoskeletal: Left shoulder: Tenderness present. Decreased range of motion. Decreased strength. Cervical back: Normal range of motion and neck supple. Skin: General: Skin is warm and dry. Neurological: Mental Status: She is alert and oriented to person, place, and time. Imaging: No new imaging Assessment/Plan: Injection to the L shoulder per patient request. I did this without complications and she tolerated well. I am more than happy to see her back as needed. [facility] Diagnosis Rotator cuff disorder, left- Primary [facility] Diagnosis Greater trochanteric bursitis of left hip- Primary [facility]* Diagnosis Peripheral vascular disease, unspecified (HCC)- Primary Peripheral vascular disease, unspecified Corns Corns and callosities [facility]* Diagnosis Greater trochanteric bursitis of left hip- Primary Rotator cuff disorder, left [facility]* Diagnosis Greater trochanteric bursitis of left hip- Primary [facility]* Diagnosis Rotator cuff disorder, left- Primary [facility]* Diagnosis Atrial fibrillation, unspecified type (HCC) [facility]* Diagnosis Atrial fibrillation, unspecified type (HCC) [facility]* Diagnosis Atrial fibrillation, unspecified type (HCC)- Primary Primary hypertension Unspecified essential hypertension Coronary artery disease involving [place] coronary artery of [place] heart without angina pectoris Dyslipidemia Other and unspecified hyperlipidemia [facility]* Diagnosis Greater trochanteric bursitis of left hip- Primary [facility]* Diagnosis Rotator cuff disorder, left- Primary [facility]* Diagnosis Pain- Primary Generalized pain [facility]* Diagnosis Bursitis of right hip, unspecified bursa- Primary DDD (degenerative disc disease), lumbar Degeneration of lumbar or lumbosacral intervertebral disc [facility]* Neurological: Nonfocal; cranial nerves II through XII appear intactPsychological: Pleasant affectGastrointestinal: Soft, nontender, nondistended, positive bowel soundsCardiovascular: Irregularly irregular; normal S1-S2 with no murmur; no edema and 2+ pulses bilaterallyRespiratory/Thorax: Clear to auscultation bilaterally no active wheezes or rhonchi notedHead/Neck: Neck supple with no palpable lym phadenopathy, bruits or masses; trachea midlineConstitutional: Awake and alert; oriented x3 with noapparent distress or respiratory distress; pale [facility] Lumbar neuritis- Primary DDD (degenerative disc disease), lumbosacral Degeneration of lumbar or lumbosacral intervertebral disc [facility]* Diagnosis Gastrointestinal hemorrhage, unspecified gastrointestinal hemorrhage type- Primary AF (paroxysmal atrial fibrillation) (CMS/HCC) Atrial fibrillation Malignant neoplasm of uterus, unspecified site (CMS/HCC) Closed fracture of sacrum, unspecified portion of sacrum, sequela Severe obesity with body mass index (BMI) of 35.0 to 39.9 with serious comorbidity (CMS/HCC) Chronic liver disease and cirrhosis (CMS/HCC) Unspecified chronic liver disease without mention of alcohol documented in this encounter [facility] Work Phone: Evaluation note* Diagnosis AF (paroxysmal atrial fibrillation) (CMS/HCC)- Primary Atrial fibrillation Gastrointestinal hemorrhage, unspecified gastrointestinal hemorrhage type DDD (degenerative disc disease), lumbosacral Degeneration of lumbar or lumbosacral intervertebral disc Lumbar stenosis with neurogenic claudication Mixed hyperlipidemia documented in this encounter [facility] Work Phone: Evaluation note* Diagnosis Sacral insufficiency fracture with delayed healing Spinal stenosis, lumbar region, without neurogenic claudication [facility] Diagnosis Paroxysmal atrial fibrillation (HCC)- Primary Atrial fibrillation PAF (paroxysmal atrial fibrillation) (HCC) Atrial fibrillation Primary hypertension Unspecified essential hypertension Coronary artery disease involving [place] coronary artery of [place] heart without angina pectoris Dyslipidemia Other and unspecified hyperlipidemia [facility]* Diagnosis Sacral insufficiency fracture with delayed healing- Primary Pre-op testing Unspecified pre-operative examination Sacral insufficiency fracture with delayed healing Primary hypertension Unspecified essential hypertension Paroxysmal atrial fibrillation (HCC) Atrial fibrillation Coronary artery disease involving [place] coronary artery of [place] heart without angina pectoris Dyslipidemia Other and unspecified hyperlipidemia Hypothyroidism, unspecified type Gastroesophageal reflux disease, unspecified whether esophagitis present Pre-op examination Sacral insufficiency fracture with delayed healing [facility] Diagnosis Sacral insufficiency fracture with delayed healing- Primary [facility]* Diagnosis Sacral insufficiency fracture with delayed healing- Primary [facility] Diagnosis Sacral insufficiency fracture with delayed healing- Primary [facility] Diagnosis Cellulitis of left lower extremity- Primary documented in this encounter [facility] Work Phone: Evaluation note* Diagnosis Sacroiliac dysfunction- Primary Nonallopathic lesion of sacral region, not elsewhere classified [facility]* Diagnosis Iron deficiency anemia, unspecified iron deficiency anemia type- Primary AF (paroxysmal atrial fibrillation) ([facility]) Atrial fibrillation Gastrointestinal hemorrhage, unspecified gastrointestinal hemorrhage type DDD (degenerative disc disease), lumbosacral Degeneration of lumbar or lumbosacral intervertebral disc Lumbar stenosis with neurogenic claudication Mixed hyperlipidemia Acquired hypothyroidism Unspecified hypothyroidism documented in this encounter [facility] Work Phone: Evaluation note* Diagnosis Lesion of sciatic nerve, right lower limb manager intermediate (current) use of aspirin Pain, unspecified documented in this encounter [facility] Work Phone: Evaluation note* Diagnosis Trochanteric bursitis, left hip manager intermediate (current) use of aspirin Presence of unspecified artificial hip joint Presence of unspecified artificial knee joint Acquired absence of other specified parts of digestive tract 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, including canthus documented in this encounter [facility] Work Phone: Evaluation note* Diagnosis Routine general medical examination at health care facility- Primary Routine general medical examination at a health care facility AF (paroxysmal atrial fibrillation) ([facility]) Atrial fibrillation Gastrointestinal hemorrhage, unspecified gastrointestinal hemorrhage type DDD (degenerative disc disease), lumbosacral Degeneration of lumbar or lumbosacral intervertebral disc Lumbar stenosis with neurogenic claudication Mixed hyperlipidemia Iron deficiency anemia, unspecified iron deficiency anemia type Acquired hypothyroidism Unspecified hypothyroidism Acute UTI Urinary tract infection, site not specified documented in this encounter [facility] Work Phone: Evaluation note* Diagnosis Rotator cuff disorder, left- Primary [facility] Diagnosis Cervical radicular pain- Primary Cervicalgia Rotator cuff disorder, right Rotator cuff disorder, left Cervical radicular pain [facility]* Diagnosis Rotator cuff disorder, right- Primary Cervicalgia [facility]* Diagnosis AF (paroxysmal atrial fibrillation) ([facility]) Atrial fibrillation Gastrointestinal hemorrhage, unspecified gastrointestinal hemorrhage type DDD (degenerative disc disease), lumbosacral Degeneration of lumbar or lumbosacral intervertebral disc Lumbar stenosis with neurogenic claudication Mixed hyperlipidemia Iron deficiency anemia, unspecified iron deficiency anemia type Acquired hypothyroidism Unspecified hypothyroidism Routine general medical examination at health care facility Routine general medical examination at a health care facility Acute UTI Urinary tract infection, site not specified documented in this encounter [facility] Work Phone: Evaluation note* Diagnosis Cervical radiculopathy- Primary Brachial neuritis or radiculitis nos Cervicalgia [facility]* Diagnosis Acute pain of left knee- Primary Chronic liver disease and cirrhosis (Multi) Unspecified chronic liver disease without mention of alcohol documented in this encounter [facility] Work Phone: Evaluation note* Diagnosis Acute pain of left knee documented in this encounter [facility] Work Phone: Evaluation note* Diagnosis Cervical radiculopathy- Primary Brachial neuritis or radiculitis nos [facility] Diagnosis Cervical radiculopathy- Primary Brachial neuritis or radiculitis nos [facility]* Diagnosis Primary osteoarthritis of left shoulder- Primary Trochanteric bursitis of left hip [facility]* Diagnosis DDD (degenerative disc disease), lumbosacral- Primary Degeneration of lumbar or lumbosacral intervertebral disc Lumbar stenosis with neurogenic claudication Closed fracture of sacrum, unspecified portion of sacrum, initial encounter (Multi) Iron deficiency anemia, unspecified iron deficiency anemia type Unexplained weight loss Loss of weight documented in this encounter [facility] Work Phone: Evaluation note* Diagnosis AF (paroxysmal atrial fibrillation) (Multi) Atrial fibrillation DDD (degenerative disc disease), lumbosacral Degeneration of lumbar or lumbosacral intervertebral disc Lumbar stenosis with neurogenic claudication Closed fracture of sacrum, unspecified portion of sacrum, initial encounter ([facility]) documented in this encounter [facility] Work Phone: Evaluation note* Diagnosis Atrial fibrillation with RVR (HCC) Bleeding from wound Small bowel obstruction (HCC) Unspecified intestinal obstruction Thrombocytopenia (HCC) Unspecified thrombocytopenia Small bowel obstruction (HCC) Unspecified intestinal obstruction Bleeding from wound UTI (urinary tract infection) Urinary tract infection, site not specified Preop cardiovascular exam- Primary Pre-operative cardiovascular examination Rotator cuff disorder, right Atrial fibrillation, unspecified type (HCC) Essential hypertension Unspecified essential hypertension Essential hypertension- Primary Unspecified essential hypertension Atrial fibrillation, unspecified type (HCC) Coronary artery disease involving [place] coronary artery of [place] heart without angina pectoris Dyslipidemia Other and unspecified hyperlipidemia Atrial fibrillation, unspecified type (HCC)- Primary Primary hypertension Unspecified essential hypertension Coronary artery disease involving [place] coronary artery of [place] heart without angina pectoris Dyslipidemia Other and unspecified hyperlipidemia Paroxysmal atrial fibrillation (HCC) Atrial fibrillation Primary hypertension Unspecified essential hypertension Coronary artery disease involving [place] coronary artery of [place] heart without angina pectoris Dyslipidemia Other and unspecified hyperlipidemia Paroxysmal atrial fibrillation (HCC)- Primary Atrial fibrillation PAF (paroxysmal atrial fibrillation) (HCC) Atrial fibrillation Primary hypertension Unspecified essential hypertension Coronary artery disease involving [place] coronary artery of [place] heart without angina pectoris Dyslipidemia Other and unspecified hyperlipidemia Pre-op testing Unspecified pre-operative examination Sacral insufficiency fracture with delayed healing Primary hypertension Unspecified essential hypertension Paroxysmal atrial fibrillation (HCC) Atrial fibrillation Coronary artery disease involving [place] coronary artery of [place] heart without angina pectoris Dyslipidemia Other and unspecified hyperlipidemia Hypothyroidism, unspecified type Gastroesophageal reflux disease, unspecified whether esophagitis present Pre-op examination Paroxysmal atrial fibrillation (HCC)- Primary Atrial fibrillation Primary hypertension Unspecified essential hypertension Coronary artery disease involving [place] coronary artery of [place] heart without angina pectoris Dyslipidemia Other and unspecified hyperlipidemia Primary osteoarthritis of left shoulder- Primary Rotator cuff disorder, left Trochanteric bursitis of left hip [facility] Diagnosis Atrial fibrillation with RVR (HCC) Bleeding from wound Small bowel obstruction (HCC) Unspecified intestinal obstruction Thrombocytopenia Unspecified thrombocytopenia Small bowel obstruction (HCC) Unspecified intestinal obstruction Bleeding from wound UTI (urinary tract infection) Urinary tract infection, site not specified Preop cardiovascular exam- Primary Pre-operative cardiovascular examination Rotator cuff disorder, right Atrial fibrillation, unspecified type (HCC) Essential hypertension Unspecified essential hypertension Essential hypertension- Primary Unspecified essential hypertension Atrial fibrillation, unspecified type (HCC) Coronary artery disease involving [place] coronary artery of [place] heart without angina pectoris Dyslipidemia Other and unspecified hyperlipidemia Atrial fibrillation, unspecified type (HCC)- Primary Primary hypertension Unspecified essential hypertension Coronary artery disease involving [place] coronary artery of [place] heart without angina pectoris Dyslipidemia Other and unspecified hyperlipidemia Paroxysmal atrial fibrillation (HCC) Atrial fibrillation Primary hypertension Unspecified essential hypertension Coronary artery disease involving [place] coronary artery of [place] heart without angina pectoris Dyslipidemia Other and unspecified hyperlipidemia Paroxysmal atrial fibrillation (HCC)- Primary Atrial fibrillation PAF (paroxysmal atrial fibrillation) (HCC) Atrial fibrillation Primary hypertension Unspecified essential hypertension Coronary artery disease involving [place] coronary artery of [place] heart without angina pectoris Dyslipidemia Other and unspecified hyperlipidemia Pre-op testing Unspecified pre-operative examination Sacral insufficiency fracture with delayed healing Primary hypertension Unspecified essential hypertension Paroxysmal atrial fibrillation (HCC) Atrial fibrillation Coronary artery disease involving [place] coronary artery of [place] heart without angina pectoris Dyslipidemia Other and unspecified hyperlipidemia Hypothyroidism, unspecified type Gastroesophageal reflux disease, unspecified whether esophagitis present Pre-op examination Paroxysmal atrial fibrillation (HCC)- Primary Atrial fibrillation Primary hypertension Unspecified essential hypertension Coronary artery disease involving [place] coronary artery of [place] heart without angina pectoris Dyslipidemia Other and unspecified hyperlipidemia Cervicalgia- Primary Lumbar spondylolysis Lumbosacral spondylosis without myelopathy Cervical radiculopathy Brachial neuritis or radiculitis nos Cervical spondylosis Cervical spondylosis without myelopathy [facility] Diagnosis Atrial fibrillation with RVR (HCC) Bleeding from wound Small bowel obstruction (HCC) Unspecified intestinal obstruction Thrombocytopenia Unspecified thrombocytopenia Small bowel obstruction (HCC) Unspecified intestinal obstruction Bleeding from wound UTI (urinary tract infection) Urinary tract infection, site not specified Preop cardiovascular exam- Primary Pre-operative cardiovascular examination Rotator cuff disorder, right Atrial fibrillation, unspecified type (HCC) Essential hypertension Unspecified essential hypertension Essential hypertension- Primary Unspecified essential hypertension Atrial fibrillation, unspecified type (HCC) Coronary artery disease involving [place] coronary artery of [place] heart without angina pectoris Dyslipidemia Other and unspecified hyperlipidemia Atrial fibrillation, unspecified type (HCC)- Primary Primary hypertension Unspecified essential hypertension Coronary artery disease involving [place] coronary artery of [place] heart without angina pectoris Dyslipidemia Other and unspecified hyperlipidemia Paroxysmal atrial fibrillation (HCC) Atrial fibrillation Primary hypertension Unspecified essential hypertension Coronary artery disease involving [place] coronary artery of [place] heart without angina pectoris Dyslipidemia Other and unspecified hyperlipidemia Paroxysmal atrial fibrillation (HCC)- Primary Atrial fibrillation PAF (paroxysmal atrial fibrillation) (HCC) Atrial fibrillation Primary hypertension Unspecified essential hypertension Coronary artery disease involving [place] coronary artery of [place] heart without angina pectoris Dyslipidemia Other and unspecified hyperlipidemia Pre-op testing Unspecified pre-operative examination Sacral insufficiency fracture with delayed healing Primary hypertension Unspecified essential hypertension Paroxysmal atrial fibrillation (HCC) Atrial fibrillation Coronary artery disease involving [place] coronary artery of [place] heart without angina pectoris Dyslipidemia Other and unspecified hyperlipidemia Hypothyroidism, unspecified type Gastroesophageal reflux disease, unspecified whether esophagitis present Pre-op examination Paroxysmal atrial fibrillation (HCC)- Primary Atrial fibrillation Primary hypertension Unspecified essential hypertension Coronary artery disease involving [place] coronary artery of [place] heart without angina pectoris Dyslipidemia Other and unspecified hyperlipidemia Cervical radiculopathy- Primary Brachial neuritis or radiculitis nos [facility] Diagnosis Atrial fibrillation with RVR (HCC) Bleeding from wound Small bowel obstruction (HCC) Unspecified intestinal obstruction Thrombocytopenia Unspecified thrombocytopenia Small bowel obstruction (HCC) Unspecified intestinal obstruction Bleeding from wound UTI (urinary tract infection) Urinary tract infection, site not specified Preop cardiovascular exam- Primary Pre-operative cardiovascular examination Rotator cuff disorder, right Atrial fibrillation, unspecified type (HCC) Essential hypertension Unspecified essential hypertension Essential hypertension- Primary Unspecified essential hypertension Atrial fibrillation, unspecified type (HCC) Coronary artery disease involving [place] coronary artery of [place] heart without angina pectoris Dyslipidemia Other and unspecified hyperlipidemia Atrial fibrillation, unspecified type (HCC)- Primary Primary hypertension Unspecified essential hypertension Coronary artery disease involving [place] coronary artery of [place] heart without angina pectoris Dyslipidemia Other and unspecified hyperlipidemia Paroxysmal atrial fibrillation (HCC) Atrial fibrillation Primary hypertension Unspecified essential hypertension Coronary artery disease involving [place] coronary artery of [place] heart without angina pectoris Dyslipidemia Other and unspecified hyperlipidemia Paroxysmal atrial fibrillation (HCC)- Primary Atrial fibrillation PAF (paroxysmal atrial fibrillation) (HCC) Atrial fibrillation Primary hypertension Unspecified essential hypertension Coronary artery disease involving [place] coronary artery of [place] heart without angina pectoris Dyslipidemia Other and unspecified hyperlipidemia Pre-op testing Unspecified pre-operative examination Sacral insufficiency fracture with delayed healing Primary hypertension Unspecified essential hypertension Paroxysmal atrial fibrillation (HCC) Atrial fibrillation Coronary artery disease involving [place] coronary artery of [place] heart without angina pectoris Dyslipidemia Other and unspecified hyperlipidemia Hypothyroidism, unspecified type Gastroesophageal reflux disease, unspecified whether esophagitis present Pre-op examination Paroxysmal atrial fibrillation (HCC)- Primary Atrial fibrillation Primary hypertension Unspecified essential hypertension Coronary artery disease involving [place] coronary artery of [place] heart without angina pectoris Dyslipidemia Other and unspecified hyperlipidemia Cervical radiculopathy- Primary Brachial neuritis or radiculitis nos [facility] Atrial fibrillation with RVR (HCC) Bleeding from wound Small bowel obstruction (HCC) Unspecified intestinal obstruction Thrombocytopenia Unspecified thrombocytopenia Small bowel obstruction (HCC) Unspecified intestinal obstruction Bleeding from wound UTI (urinary tract infection) Urinary tract infection, site not specified Preop cardiovascular exam- Primary Pre-operative cardiovascular examination Rotator cuff disorder, right Atrial fibrillation, unspecified type (HCC) Essential hypertension Unspecified essential hypertension Essential hypertension- Primary Unspecified essential hypertension Atrial fibrillation, unspecified type (HCC) Coronary artery disease involving [place] coronary artery of [place] heart without angina pectoris Dyslipidemia Other and unspecified hyperlipidemia Atrial fibrillation, unspecified type (HCC)- Primary Primary hypertension Unspecified essential hypertension Coronary artery disease involving [place] coronary artery of [place] heart without angina pectoris Dyslipidemia Other and unspecified hyperlipidemia Paroxysmal atrial fibrillation (HCC) Atrial fibrillation Primary hypertension Unspecified essential hypertension Coronary artery disease involving [place] coronary artery of [place] heart without angina pectoris Dyslipidemia Other and unspecified hyperlipidemia Paroxysmal atrial fibrillation (HCC)- Primary Atrial fibrillation PAF (paroxysmal atrial fibrillation) (HCC) Atrial fibrillation Primary hypertension Unspecified essential hypertension Coronary artery disease involving [place] coronary artery of [place] heart without angina pectoris Dyslipidemia Other and unspecified hyperlipidemia Pre-op testing Unspecified pre-operative examination Sacral insufficiency fracture with delayed healing Primary hypertension Unspecified essential hypertension Paroxysmal atrial fibrillation (HCC) Atrial fibrillation Coronary artery disease involving [place] coronary artery of [place] heart without angina pectoris Dyslipidemia Other and unspecified hyperlipidemia Hypothyroidism, unspecified type Gastroesophageal reflux disease, unspecified whether esophagitis present Pre-op examination Paroxysmal atrial fibrillation (HCC)- Primary Atrial fibrillation Primary hypertension Unspecified essential hypertension Coronary artery disease involving [place] coronary artery of [place] heart without angina pectoris Dyslipidemia Other and unspecified hyperlipidemia Paroxysmal atrial fibrillation (HCC)- Primary Atrial fibrillation Primary hypertension Unspecified essential hypertension Coronary artery disease involving [place] coronary artery of [place] heart without angina pectoris Dyslipidemia Other and unspecified hyperlipidemia [facility] Routine general medical examination at health care facility- Primary Routine general medical examination at a health care facility Lumbar stenosis with neurogenic claudication Controlled drug dependence (Multi) Exudative age-related macular degeneration, left eye, with active choroidal neovascularization Vitreous hemorrhage, left eye (Multi) Vitreous hemorrhage Hepatic cirrhosis, unspecified hepatic cirrhosis type, unspecified whether ascites present (Multi) Degeneration of intervertebral disc of lumbosacral region with discogenic back pain Skin ulcer, unspecified ulcer stage (Multi) documented in this encounter [facility] Work Phone: Evaluation note* Diagnosis Routine general medical examination at [facility] care facility- Primary Routine general medical examination at a health care facility Lumbar stenosis with neurogenic claudication Controlled drug dependence (Multi) Exudative age-related macular degeneration, left eye, with active choroidal neovascularization Vitreous hemorrhage, left eye (Multi) Vitreous hemorrhage Hepatic cirrhosis, unspecified hepatic cirrhosis type, unspecified whether ascites present (Multi) Degeneration of intervertebral disc of lumbosacral region with discogenic back pain Skin ulcer, unspecified ulcer stage (Multi) Skin ulcer, unspecified ulcer stage (Multi) documented in this encounter [facility] Work Phone: Evaluation note* Diagnosis Routine general medical examination at [facility] facility- Primary Routine general medical examination at a [facility] Lumbar stenosis with neurogenic claudication Controlled drug dependence (Multi) Exudative age-related macular degeneration, left eye, with active choroidal neovascularization Vitreous hemorrhage, left eye (Multi) Vitreous hemorrhage Hepatic cirrhosis, unspecified hepatic cirrhosis type, unspecified whether ascites present (Multi) Degeneration of intervertebral disc of lumbosacral region with discogenic back pain Skin ulcer, unspecified ulcer stage (Multi) Skin ulcer, unspecified ulcer stage (Multi) documented in this encounter [facility] Work Phone: Evaluation note* Diagnosis Routine general medical examination at [facility] facility- Primary Routine general medical examination at a [facility] Lumbar stenosis with neurogenic claudication Controlled drug dependence (Multi) Exudative age-related macular degeneration, left eye, with active choroidal neovascularization Vitreous hemorrhage, left eye (Multi) Vitreous hemorrhage Hepatic cirrhosis, unspecified hepatic cirrhosis type, unspecified whether ascites present (Multi) Degeneration of intervertebral disc of lumbosacral region with discogenic back pain Skin ulcer, unspecified ulcer stage (Multi) Skin ulcer, unspecified ulcer stage (Multi)- Primary documented in this encounter [facility] Work Phone: Evaluation note* Diagnosis Routine general medical examination at [facility]- Primary Routine general medical examination at a [facility] Lumbar stenosis with neurogenic claudication Controlled drug dependence (Multi) Exudative age-related macular degeneration, left eye, with active choroidal neovascularization Vitreous hemorrhage, left eye (Multi) Vitreous hemorrhage Hepatic cirrhosis, unspecified hepatic cirrhosis type, unspecified whether ascites present (Multi) Degeneration of intervertebral disc of lumbosacral region with discogenic back pain Skin ulcer, unspecified ulcer stage (Multi) Skin ulcer, unspecified ulcer stage (Multi) documented in this encounter [facility] Work Phone: Evaluation note* Diagnosis Routine general medical examination at health care facility- Primary Routine general medical examination at a [facility] care facility Lumbar stenosis with neurogenic claudication Controlled drug dependence (Multi) Exudative age-related macular degeneration, left eye, with active choroidal neovascularization Vitreous hemorrhage, left eye (Multi) Vitreous hemorrhage Hepatic cirrhosis, unspecified hepatic cirrhosis type, unspecified whether ascites present (Multi) Degeneration of intervertebral disc of lumbosacral region with discogenic back pain Skin ulcer, unspecified ulcer stage (Multi) Lumbar stenosis with neurogenic claudication- Primary LUQ pain Abdominal pain, left upper quadrant Controlled drug dependence (Multi) Routine general medical examination at health care facility Routine general medical examination at a [facility] care facility Skin ulcer, unspecified ulcer stage (Multi) Closed fracture of sacrum, unspecified portion of sacrum, initial encounter (Multi) AF (paroxysmal atrial fibrillation) (Multi) Atrial fibrillation Mixed hyperlipidemia Acquired hypothyroidism Unspecified hypothyroidism documented in this encounter [facility] Work Phone: Evaluation note* Diagnosis Routine general medical examination at [facility]- Primary Routine general medical examination at a [facility] Lumbar stenosis with neurogenic claudication Controlled drug dependence (Multi) Exudative age-related macular degeneration, left eye, with active choroidal neovascularization Vitreous hemorrhage, left eye (Multi) Vitreous hemorrhage Hepatic cirrhosis, unspecified hepatic cirrhosis type, unspecified whether ascites present (Multi) Degeneration of intervertebral disc of lumbosacral region with discogenic back pain Skin ulcer, unspecified ulcer stage (Multi) Skin ulcer, unspecified ulcer stage (Multi)- Primary documented in this encounter [facility] Work Phone: Evaluation note* Diagnosis Routine general medical examination at health care facility- Primary Routine general medical examination at a [facility] care facility Lumbar stenosis with neurogenic claudication Controlled drug dependence (Multi) Exudative age-related macular degeneration, left eye, with active choroidal neovascularization Vitreous hemorrhage, left eye (Multi) Vitreous hemorrhage Hepatic cirrhosis, unspecified hepatic cirrhosis type, unspecified whether ascites present (Multi) Degeneration of intervertebral disc of lumbosacral region with discogenic back pain Skin ulcer, unspecified ulcer stage (Multi) LUQ pain Abdominal pain, left upper quadrant documented in this encounter [facility] Work Phone: Evaluation note* Diagnosis Routine general medical examination at health care facility- Primary Routine general medical examination at a health care facility Lumbar stenosis with neurogenic claudication Controlled drug dependence (Multi) Exudative age-related macular degeneration, left eye, with active choroidal neovascularization Vitreous hemorrhage, left eye (Multi) Vitreous hemorrhage Hepatic cirrhosis, unspecified hepatic cirrhosis type, unspecified whether ascites present (Multi) Degeneration of intervertebral disc of lumbosacral region with discogenic back pain Skin ulcer, unspecified ulcer stage (Multi) Skin ulcer, unspecified ulcer stage (Multi)- Primary documented in this encounter [facility] Work Phone: Evaluation note* Diagnosis Routine general medical examination at [facility] care facility- Primary Routine general medical examination at a [facility] care facility Lumbar stenosis with neurogenic claudication Controlled drug dependence (Multi) Exudative age-related macular degeneration, left eye, with active choroidal neovascularization Vitreous hemorrhage, left eye (Multi) Vitreous hemorrhage Hepatic cirrhosis, unspecified hepatic cirrhosis type, unspecified whether ascites present (Multi) Degeneration of intervertebral disc of lumbosacral region with discogenic back pain Skin ulcer, unspecified ulcer stage (Multi) LUQ pain- Primary Abdominal pain, left upper quadrant documented in this encounter [facility] Work Phone: Evaluation note* Diagnosis Routine general medical examination at [facility] care facility- Primary Routine general medical examination at a health care facility Lumbar stenosis with neurogenic claudication Controlled drug dependence (Multi) Exudative age-related macular degeneration, left eye, with active choroidal neovascularization Vitreous hemorrhage, left eye (Multi) Vitreous hemorrhage Hepatic cirrhosis, unspecified hepatic cirrhosis type, unspecified whether ascites present (Multi) Degeneration of intervertebral disc of lumbosacral region with discogenic back pain Skin ulcer, unspecified ulcer stage (Multi) Lumbar stenosis with neurogenic claudication- Primary Lumbar facet arthropathy Spondylosis of unspecified site without mention of myelopathy Chronic pain syndrome Myofascial pain Unspecified myalgia and myositis documented in this encounter [facility] Work Phone: Evaluation note* Diagnosis Atrial fibrillation with RVR (HCC) Bleeding from wound Small bowel obstruction (HCC) Unspecified intestinal obstruction Thrombocytopenia Unspecified thrombocytopenia Small bowel obstruction (HCC) Unspecified intestinal obstruction Bleeding from wound UTI (urinary tract infection) Urinary tract infection, site not specified Preop cardiovascular exam- Primary Pre-operative cardiovascular examination Rotator cuff disorder, right Atrial fibrillation, unspecified type (HCC) Essential hypertension Unspecified essential hypertension Essential hypertension- Primary Unspecified essential hypertension Atrial fibrillation, unspecified type (HCC) Coronary artery disease involving [place] coronary artery of [place] heart without angina pectoris Dyslipidemia Other and unspecified hyperlipidemia Atrial fibrillation, unspecified type (HCC)- Primary Primary hypertension Unspecified essential hypertension Coronary artery disease involving [place] coronary artery of [place] heart without angina pectoris Dyslipidemia Other and unspecified hyperlipidemia Paroxysmal atrial fibrillation (HCC) Atrial fibrillation Primary hypertension Unspecified essential hypertension Coronary artery disease involving [place] coronary artery of [place] heart without angina pectoris Dyslipidemia Other and unspecified hyperlipidemia Paroxysmal atrial fibrillation (HCC)- Primary Atrial fibrillation PAF (paroxysmal atrial fibrillation) (HCC) Atrial fibrillation Primary hypertension Unspecified essential hypertension Coronary artery disease involving [place] coronary artery of [place] heart without angina pectoris Dyslipidemia Other and unspecified hyperlipidemia Pre-op testing Unspecified pre-operative examination Sacral insufficiency fracture with delayed healing Primary hypertension Unspecified essential hypertension Paroxysmal atrial fibrillation (HCC) Atrial fibrillation Coronary artery disease involving [place] coronary artery of [place] heart without angina pectoris Dyslipidemia Other and unspecified hyperlipidemia Hypothyroidism, unspecified type Gastroesophageal reflux disease, unspecified whether esophagitis present Pre-op examination Paroxysmal atrial fibrillation (HCC)- Primary Atrial fibrillation Primary hypertension Unspecified essential hypertension Coronary artery disease involving [place] coronary artery of [place] heart without angina pectoris Dyslipidemia Other and unspecified hyperlipidemia Paroxysmal atrial fibrillation (HCC)- Primary Atrial fibrillation Primary hypertension Unspecified essential hypertension Coronary artery disease involving [place] coronary artery of [place] heart without angina pectoris Dyslipidemia Other and unspecified hyperlipidemia Coronary artery disease involving [place] coronary artery of [place] heart without angina pectoris- Primary Primary hypertension Unspecified essential hypertension Paroxysmal atrial fibrillation (HCC) Atrial fibrillation Dyslipidemia Other and unspecified hyperlipidemia Preop cardiovascular exam Pre-operative cardiovascular examination documented in this encounter [facility] note* Diagnosis Routine general medical examination at health care facility- Primary Routine general medical examination at a health care facility Lumbar stenosis with neurogenic claudication Controlled drug dependence (Multi) Exudative age-related macular degeneration, left eye, with active choroidal neovascularization Vitreous hemorrhage, left eye (Multi) Vitreous hemorrhage Hepatic cirrhosis, unspecified hepatic cirrhosis type, unspecified whether ascites present (Multi) Degeneration of intervertebral disc of lumbosacral region with discogenic back pain Skin ulcer, unspecified ulcer stage (Multi) Wound of sacral region, sequela- Primary DDD (degenerative disc disease), lumbosacral Degeneration of lumbar or lumbosacral intervertebral disc Lumbar stenosis with neurogenic claudication Closed fracture of sacrum, unspecified portion of sacrum, initial encounter (Multi) AF (paroxysmal atrial fibrillation) (Multi) Atrial fibrillation documented in this encounter [facility] Work Phone: History of Present illness Narrative* Since the last office visit there have been no interval operations, hospitalizations, important illnesses or injuries. * children had covid. * barrents GERD-Takes PPI daily with no breakthrough symptoms of late. Reviewed dietary, caffeine, tobacco, alcohol, and NSAID avoidance. * Hyperlipidemia- is on statin and a prudent diet. * ibs on amitiza and is effective * Atrial fibrillation- converted, no breakthru continues on anticoagulation. * cirrhosis stablelfts and us 2019 rev * tramadol 2 a day average for pain in low back. forms reviewed. I have personally reviewed the OARRSreport for the above patient. This report is scanned into the electronic medical record. I have considered the risks of abuse, dependence, addiction, and diversion. I believe that it is clinically appropriate for the above patient to be prescribed this medication. [employer] [facility] Work Phone: History of Present illness Narrative* I have personally reviewed the OARRS report for the above patient. This report is scanned into the electronic medical record. I have considered the risks of abuse, dependence, addiction, and diversion. I believe that it is clinically appropriate for the above patient to be prescribed this medication. * tramadol for back, greatly effective and no side effects and allow to function. would be difficult to do iadls if not on * sheets reviewed * Atrial fibrillation- converted controlled continues on anticoagulation. 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 * 4 tram a day * chiropractor weekly * for ddd sp stenisis * I have personally reviewed the OARRS report for the above patient. This report is scanned into the electronic medical record. I have considered the risks of abuse, dependence, addiction, and diversion. I believe that it is clinically appropriate for the above patient to be prescribed this medication. * ortho says necka nd back are a mess * had uterine cancer at afge 29 had hyster, no radiation [facility] Work Phone: History of Present illness Narrative* feels tram works well without side effects. * 4 tram a day * chiropractor weekly * for ddd sp stenisis * I have personally reviewed the OARRS report for the above patient. This report is scanned into the electronic medical record. I have considered the risks of abuse, dependence, addiction, and diversion. I believe that it is clinically appropriate for the above patient to be prescribed this medication. * ortho says necka nd back are a mess * had uterine cancer at afge 29 had hyster, no radiation [facility] Work Phone: History of Present illness Narrative* Sore throat and some itching and pain with the tongue going on about for 5 days. * Exam throat looks fine mouth looks fine tongue has swollen taste buds posterior part. * Tenderness to palpation of the neck no in enlarged lymph nodes * Sounds like viral illness. * Take anti-inflammatories does not like prednisone, will trial low-dose 20 mg once a day for 2 or 3 days of prednisone to see if it helps * She will call at the end of the week if things or not better. [employer] [facility] Work Phone: History of Present illness Narrative* The patient is being seen for the subsequent annual wellness visit. * Past Medical, Surgical and Family History: reviewed and updated in chart. * Interval History: Patient has not been hospitalized previously. * Medications and Supplements: Review of all medications by a prescribing practitioner or clinical pharmacist (such as prescriptions, OTCs, herbal therapies and supplements) documented in the medical record. * Yes, the patient is using opioids. * Health Risk Assessment:. Paper HRA completed by patient and scanned into chart. * Patient Self Assessment of Health Status: excellent. * Tobacco use: Non-User * Alcohol use: Non-User, As noted in social history 2/mo. * Illicit drug use: Non-User * Current diet: well balanced diet. * Exercise Frequency: infrequently. * Depression/Suicide Screening: . * During the past 2 weeks, the patient has not felt down, depressed or hopeless. * During the past 2 weeks, the patient has not felt little interest or pleasure in doing things. * Hearing Impairment: none. * Cognitive Impairment: No cognitive impairment observed. * Bathing: performs independently. * Dressing: performs independently. * Walking: performs independently. * Toileting: performs independently. * Feeding: performs independently. * Personal Hygiene: performs independently. * Bowels: continent. * Bladder: continent. * Managing Finances: performs independently. * Shopping: performs independently. * Managing Medications: performs independently. * Housework / Basic Home Maintenance: performs independently. * Handling Transportation: performs independently. * Preparing Meals: performs independently. * Using the Telephone/ Communication Devices: performs independently. * Falls Risk Screening:. [place] has not fallen in the last 6 months. * Home safety risk factors: none. * Advance directives:. Advance Care Planning discussed and documented in the medical record, patient did not wish or was not able to name a surrogate decision maker or provide an advance care plan. Patient has no living will. Patient has healthcare POA. * seen for ? glossotis and was ok pnpred, now pain left side of amrik , no dysphagia for solid or loquis , voice a little raspy. will refer yolanda. not a lot of gerd, on dexilant as jesika cuevas, last egd is 3 yrs and scheduled for colon * Hypothyroid- is euthyroid on replacement. Thyroid ros is unremarkable. * on tramadol for back pain tram is great keep fully functional at 3-4 a day * I have personally reviewed the OARRS report for the above patient. This report is scanned into the electronic medical record. I have considered the risks of abuse, dependence, addiction, and diversion. I believe that it is clinically appropriate for the above patient to be prescribed this medication. od 140 mme 18 * Atrial fibrillation- no breakthru, continues on anticoagulation. [facility] Work Phone: History of Present illness Narrative* Since the last office visit there have been no interval operations, hospitalizations, important illnesses or injuries. * tramadol at 4 a day , effectiove for low back pain. I have personally reviewed the OARRS report forthe above patient. This report is scanned into the electronic medical record. I have considered therisks of abuse, dependence, addiction, and diversion. I believe that it is clinically appropriate for the above patient to be prescribed this medication. * it would be a tough life wothout tramadol. * For 2 months had an ache and a stedy tenderness in luq. colon current. no change nnbowhayder hapbits. has cirrhosisi and hx of divertic [employer] [facility] Work Phone: History of Present illness Narrative* Since the last office visit there have been no interval operations, hospitalizations, important illnesses or injuries. * shingles resoved, some lingering pain * notes some inc swelling onad decreased singing, will incr lasix to 60mg, was taking prn, icreased to daily and now recc 60 mg woth 2 week follow up * no afib in several months, cont on pradaxa. is on propafenone. sees emeli in january. Encouraged to report breakthrough episode * pain meds for low back, and asks to refer to gayatri at [facility]. I have personally reviewed the OARRS report for the above patient. This report is scanned into the electronic medical record. I have considered the risks of abuse, dependence, addiction, and diversion. I believe that it is clinically approp riate for the above patient to be prescribed this medication. * 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 * Uterine cancer HCC closed for a year stable [employer] [facility] Work Phone: History of Present illness Narrative* Ms. ECHEVERRIA presents with signs and symptoms consistent with Lumbosacral DDD, difficulty with gait, muscular deconditioning and lumbago and demonstrates impairments/limitations in Lumbar AROM, decreased MMT in BLE's, difficulty with proper motor control with decreased proximal stability, weakness in core and glute musculature specifically, with difficulty with all functional transfers at times. Pt reported good understanding of HEP HO with verbal review and given blue/red therabands. They would benefit from skilled Physical Therapy with combination of manual therapy techniques to decrease myofascial and joint restrictions, as well as progression of exercises for ROM, flexibility, strength, core stabilization, and glute retraining, and body mechanics education throughout POC to progresstowards independence with ADL s/IADL s and return to PLOF. * Clinical Presentation: Stable and/or uncomplicated characteristics. * Level of Complexity: low * Problem List: activity limitations, ADLs/IADLs/self care skills, balance, decreased functional level, fall risk, flexibility, gait/locomotion, motor function/control/tone, pain, participation restrictions, posture, range of motion/joint mobility, strength and transfers. [facility] Work Phone: History of Present illness NarrativePt confirmed via and Full Name. Pt returned this date for first visit since [facility] due to having to cancel some sessions due to pain in cervical spine/shoulder as well as significant soreness from eval. Spent time reviewing pt edu on symptom management, activity modifications, and plan to ease into HEP given at [facility]. Spent most time on manual therapy this date with open hand/broad pressure for b tanisha tolerance. Pt required Mod-Max A with sit<>supine transfers, but improved TrA activation with supine<>sit after manual therapy. Pt tolerate nustep and two hooklying exercises well this date but deferred trialing remaining two seated exercises from HEP due to concern with flaring up pain again.[facility] Work Phone: History of Present illness NarrativePatient identified by name & . Patient wore a mask during treatment d/t Covid-19 precautions. Treatment consisted of ther ex's for core strengthening and manual therapy for decreased tissue restrictions of glutes, IT band, and hips. Patient has good recruitment of TrA's for isometric contraction, but does lose this contraction when performing the ex's. Low back pain decreased post treatment.[facility] Work Phone: History of Present illness NarrativePatient identified by name & . Patient wore a mask during treatment d/t Covid-19 precautions. Pt reassessed this date by supervising PT with improvements noted in MMT of BLEs as well as improved TUG and 5 rep Sit<>stand test scores this date compared to evny. Pt deferred performing any ther-ex or receiving and manual techniques this date and just wanted to perform re-assessment and discuss updates to HEP with new HO given. Discussed continued skilled PT to progress with improving functional posture and tolerance to prolonged standing/ambulation, as well as progression of balanceacivities.[facility] Work Phone: Reason for referral (narrative)* Consultation (Routine) - Authorized Specialty Diagnoses / Procedures Referred By Contac t Referred To Contact Primary Care Diagnoses AF (paroxysmal atrial fibrillation) (CMS/HCC) Gastrointestinal hemorrhage, unspecified gastrointestinal hemorrhage type DDD (degenerative disc disease), lumbosacral Lumbar stenosis with neurogenic claudication Mixed hyperlipidemia Procedures Follow Up In Primary Care Sancho Woodruff MD [address] [place], [place] [id number] Referral ID Status Reason Start Date Expiration Date V isits Requested Visits Authorized [id number] Authorized 04/05/2023 10/02/2023 1 1 T [facility] Work Phone: reason for referral (narrative)* Consultation (Routine) - Authorized Specialty Diagnoses / Procedures Referred By Contac t Referred To Contact Primary Care Diagnoses AF (paroxysmal atrial fibrillation) (CMS/HCC) Gastrointestinal hemorrhage, unspecified gastrointestinal hemorrhage type DDD (degenerative disc disease), lumbosacral Lumbar stenosis with neurogenic claudication Mixed hyperlipidemia Iron deficiency anemia, unspecified iron deficiency anemia type Acquired hypothyroidism Procedures Follow Up In Primary Care Sancho Woodruff MD [address] [place] [id number] Referral ID Status Reason Start Date Expiration Date V isits Requested Visits Authorized [id number] Authorized 07/07/2023 01/03/2024 1 1 [facility] Work Phone: reason for referral (narrative)* Consultation (Routine) - Authorized Specialty Diagnoses / Procedures Referred By Contac t Referred To Contact Primary Care Diagnoses AF (paroxysmal atrial fibrillation) (CMS/HCC) Gastrointestinal hemorrhage, unspecified gastrointestinal hemorrhage type DDD (degenerative disc disease), lumbosacral Lumbar stenosis with neurogenic claudication Mixed hyperlipidemia Iron deficiency anemia, unspecified iron deficiency anemia type Acquired hypothyroidism Routine general medical examination at health care facility Acute UTI Procedures Follow Up In Primary Care - Established Sancho Woodruff MD [address] [place] [id number] Referral ID Status Reason Start Date Expiration Date V isits Requested Visits Authorized [id number] Authorized 10/13/2023 10/12/2024 1 1 [facility] Work Phone: reason for referral (narrative)* Consultation (Routine) - Authorized Specialty Diagnoses / Procedures Referred By Contac t Referred To Contact Primary Care Diagnoses AF (paroxysmal atrial fibrillation) ([facility]) DDD (degenerative disc disease), lumbosacral Lumbar stenosis with neurogenic claudication Procedures Follow Up In Primary Care Sancho Woodruff MD [address] [place] [address] Referral ID Status Reason Start Date Expiration Date V isits Requested Visits Authorized [id number] Authorized 01/16/2024 01/15/2025 1 1 [facility] Work Phone: reason for referral (narrative)No reason for referral information availableWBarnesville [facility] Work Phone: Reason for visit Narrative* Initial Evaluation . Lumbosacral pain, deconditioned and weakness. * Referred by: Sancho Woodruff [facility] Work Phone: reason for visit Narrative* Imaging (Routine) - Authorized Specialty Diagnoses / Procedures Referred By Contac t Referred To Contact Radiology Diagnoses Skin ulcer, unspecified ulcer stage (Multi) Procedures XR pelvis 1-2 views Dariela Garza MD [address] [address] Phone: tel: fax: Referral ID Status Reason Start Date Expiration Date Visits Requested Visits Authorized [id number] Authorized Perform Procedure 01/18/2025 01/18/2026 1 1 [facility] Work Phone: reason for visit Narrative* Imaging (Routine) - Authorized Specialty Diagnoses / Procedures Referred By Contac t Referred To Contact Radiology Diagnoses Skin ulcer, unspecified ulcer stage (Multi) Procedures CT pelvis w IV contrast Dariela Garza [facility] [address] [facility] [address] [place] [address] Phone: tel: fax: Referral ID Status Reason Start Date Expiration Date Visits Requested Visits Authorized [id number] Authorized Perform Procedure 01/22/2025 01/22/2026 1 1 [facility] Work Phone: Reason for visit Narrative* Imaging (Routine) - Authorized Specialty Diagnoses / Procedures Referred By Contac t Referred To Contact Radiology Diagnoses LUQ pain Procedures CT abdomen pelvis w IV contrast Sancho Woodruff MD [address] [facility] [address] [place] [address] Phone: tel: fax: Referral ID Status Reason Start Date Expiration Date Visits Requested Visits Authorized [id number] Authorized Perform Procedure 04/03/2025 04/03/2026 1 1 [facility] Work Phone: Assessments Diagnosis Bursitis/tendonitis, shoulde r - Primary Unspecified disorders of bursae and tendons in shoulder region Diagnosis Bursitis/tendonitis, shoulde r - Primary Unspecified disorders of bursae and tendons in shoulder region Left shoulder pain, unspecif ied chronicity Diagnosis Bursitis/tendonitis, shoulde r - Primary Unspecified disorders of bursae and tendons in shoulder region Rotator cuff arthropathy, ri ght Diagnosis Bursitis/tendonitis, shoulder- Primary Unspecified disorders of bursae and tendons in shoulder region Rotator cuff arthropathy, right Left shoulder pain, unspecified chronicity Lumbar and sacral arthritis Lumbosacral spondylosis without myelopathy Diagnosis Rotator cuff disorder, right- Primary Rotator cuff disorder, left Diagnosis Rotator cuff disorder, right Rotator cuff disorder, left Diagnosis Rotator cuff disorder, right Rotator cuff disorder, left Diagnosis Breast cancer screening by mammogram Diagnosis Rotator cuff disorder, right Diagnosis Rotator cuff disorder, right Hypertension, unspecified type Diagnosis Rotator cuff disorder, right Diagnosis Rotator cuff disorder, right Diagnosis Rotator cuff disorder, right Preop cardiovascular exam Pre-operative cardiovascular examination Atrial fibrillation, unspecified type (HCC) Essential hypertension Unspecified essential hypertension Diagnosis Rotator cuff disorder, right Diagnosis Rotator cuff disorder, right Diagnosis Preop cardiovascular exam Pre-operative cardiovascular examination Atrial fibrillation, unspecified type (HCC) Essential hypertension Unspecified essential hypertension Diagnosis Rotator cuff disorder, right Diagnosis Rotator cuff disorder, right S/P reverse total shoulder arthroplasty, right Diagnosis Atrial fibrillation, unspecified type (HCC) Diagnosis Rotator cuff disorder, left Diagnosis Status post reverse total shoulder replacement, right Diagnosis Status post reverse total shoulder replacement, right Diagnosis Atrial fibrillation, unspecified type (HCC)- Primary Diagnosis Essential hypertension- Primary Unspecified essential hypertension Atrial fibrillation, unspecified type (HCC) Coronary artery disease involving [place] coronary artery of [place] heart without angina pectoris Dyslipidemia Other and unspecified hyperlipidemia Diagnosis Status post reverse total shoulder replacement, right- Primary Diagnosis Rotator cuff disorder, right- Primary Rotator cuff disorder, left Diagnosis 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 Diagnosis Rotator cuff disorder, right- Primary Rotator cuff disorder, left Diagnosis Bursitis/tendonitis, shoulder- Primary Unspecified disorders of bursae and tendons in shoulder region Rotator cuff arthropathy, right Left shoulder pain, unspecified chronicity Diagnosis Rotator cuff disorder, right- Primary Rotator cuff disorder, left Diagnosis Rotator cuff disorder, left Rotator cuff disorder, right Diagnosis Rotator cuff disorder, right- Primary Rotator cuff disorder, left Summary Purpose Family History No Family History Records Found Child Name Dates Details Family history of multiple m yeloma(V16.7, Z80.7) Status:Active Family history of malignant neoplasm of female genital organ(V16.49, Z80.49) Status:Active Mother Name Dates Details Family history of pancreatic cancer(V16.0, Z80.0) Status:Active Father Name Dates Details Family history of myocardial infarction(V17.3, Z82.49) Status:Active Family history of cerebrovas cular accident (CVA)(V17.1, Z82.3) Status:Active Sister Name Dates Details Family history of cerebrovas cular accident (CVA)(V17.1, Z82.3) Status:Active Family history of coronary a rtery disease(V17.3, Z82.49) Status:Active Family history of malignant melanoma(V16.8, Z80.8) Status:Active Family history of malignant neoplasm of colon(V16.0, Z80.0) Status:Active Family history of malignant neoplasm of uterus(V16.49, Z80.49) Status:Active Family history of malignant neoplasm of brain(V16.8, Z80.8) Status:Active Brother Name Dates Details Family history of myocardial infarction(V17.3, Z82.49) Status:Active Family history of cerebrovas cular accident (CVA)(V17.1, Z82.3) Status:Active Family history of coronary a rtery disease(V17.3, Z82.49) Status:Active Family history of metastatic neoplastic disease(V16.9, Z80.9) Status:Active Family history of lung cance r(V16.1, Z80.1) Status:Active Child Name Dates Details Family history of multiple m yeloma(V16.7, Z80.7) Status:Active Family history of malignant neoplasm of female genital organ(V16.49, Z80.49) Status:Active Mother Name Dates Details Family history of pancreatic cancer(V16.0, Z80.0) Status:Active Father Name Dates Details Family history of myocardial infarction(V17.3, Z82.49) Status:Active Family history of cerebrovas cular accident (CVA)(V17.1, Z82.3) Status:Active Sister Name Dates Details Family history of cerebrovas cular accident (CVA)(V17.1, Z82.3) Status:Active Family history of coronary a rtery disease(V17.3, Z82.49) Status:Active Family history of malignant melanoma(V16.8, Z80.8) Status:Active Family history of malignant neoplasm of colon(V16.0, Z80.0) Status:Active Family history of malignant neoplasm of uterus(V16.49, Z80.49) Status:Active Family history of malignant neoplasm of brain(V16.8, Z80.8) Status:Active Brother Name Dates Details Family history of myocardial infarction(V17.3, Z82.49) Status:Active Family history of cerebrovas cular accident (CVA)(V17.1, Z82.3) Status:Active Family history of coronary a rtery disease(V17.3, Z82.49) Status:Active Family history of metastatic neoplastic disease(V16.9, Z80.9) Status:Active Family history of lung cance r(V16.1, Z80.1) Status:Active Child Name Dates Details Family history of multiple m yeloma(V16.7, Z80.7) Status:Active Family history of malignant neoplasm of female genital organ(V16.49, Z80.49) Status:Active Mother Name Dates Details Family history of pancreatic cancer(V16.0, Z80.0) Status:Active Father Name Dates Details Family history of myocardial infarction(V17.3, Z82.49) Status:Active Family history of cerebrovas cular accident (CVA)(V17.1, Z82.3) Status:Active Sister Name Dates Details Family history of cerebrovas cular accident (CVA)(V17.1, Z82.3) Status:Active Family history of coronary a rtery disease(V17.3, Z82.49) Status:Active Family history of malignant melanoma(V16.8, Z80.8) Status:Active Family history of malignant neoplasm of colon(V16.0, Z80.0) Status:Active Family history of malignant neoplasm of uterus(V16.49, Z80.49) Status:Active Family history of malignant neoplasm of brain(V16.8, Z80.8) Status:Active Brother Name Dates Details Family history of myocardial infarction(V17.3, Z82.49) Status:Active Family history of cerebrovas cular accident (CVA)(V17.1, Z82.3) Status:Active Family history of coronary a rtery disease(V17.3, Z82.49) Status:Active Family history of metastatic neoplastic disease(V16.9, Z80.9) Status:Active Family history of lung cance r(V16.1, Z80.1) Status:Active Unknown Family Member Name Dates Details Family history of myocardial infarction: Father, Brother(V17.3, Z82.49) Status:Active Family history of cerebrovas cular accident (CVA): Father, Brother, Sister(V17.1, Z82.3) Status:Active Family history of coronary a rtery disease: Brother, Sister(V17.3, Z82.49) Status:Active Family history of metastatic neoplastic disease: Brother(V16.9, Z80.9) Status:Active Family history of lung cance r: Brother(V16.1, Z80.1) Status:Active Family history of malignant melanoma: Sister(V16.8, Z80.8) Status:Active Family history of malignant neoplasm of colon: Sister(V16.0, Z80.0) Status:Active Family history of malignant neoplasm of uterus: Sister(V16.49, Z80.49) Status:Active Family history of malignant neoplasm of brain: Sister(V16.8, Z80.8) Status:Active Family history of multiple m yeloma: Child(V16.7, Z80.7) Status:Active Family history of malignant neoplasm of female genital organ: Child(V16.49, Z80.49) Status:Active Family history of pancreatic cancer: Mother(V16.0, Z80.0) Status:Active Unknown Family Member Name Dates Details Family history of myocardial infarction: Father, Brother(V17.3, Z82.49) Status:Active Family history of cerebrovas cular accident (CVA): Father, Brother, Sister(V17.1, Z82.3) Status:Active Family history of coronary a rtery disease: Brother, Sister(V17.3, Z82.49) Status:Active Family history of metastatic neoplastic disease: Brother(V16.9, Z80.9) Status:Active Family history of lung cance r: Brother(V16.1, Z80.1) Status:Active Family history of malignant melanoma: Sister(V16.8, Z80.8) Status:Active Family history of malignant neoplasm of colon: Sister(V16.0, Z80.0) Status:Active Family history of malignant neoplasm of uterus: Sister(V16.49, Z80.49) Status:Active Family history of malignant neoplasm of brain: Sister(V16.8, Z80.8) Status:Active Family history of multiple m yeloma: Child(V16.7, Z80.7) Status:Active Family history of malignant neoplasm of female genital organ: Child(V16.49, Z80.49) Status:Active Family history of pancreatic cancer: Mother(V16.0, Z80.0) Status:Active Unknown Family Member Name Dates Details Family history of myocardial infarction: Father, Brother(V17.3, Z82.49) Status:Active Family history of cerebrovas cular accident (CVA): Father, Brother, Sister(V17.1, Z82.3) Status:Active Family history of coronary a rtery disease: Brother, Sister(V17.3, Z82.49) Status:Active Family history of metastatic neoplastic disease: Brother(V16.9, Z80.9) Status:Active Family history of lung cance r: Brother(V16.1, Z80.1) Status:Active Family history of malignant melanoma: Sister(V16.8, Z80.8) Status:Active Family history of malignant neoplasm of colon: Sister(V16.0, Z80.0) Status:Active Family history of malignant neoplasm of uterus: Sister(V16.49, Z80.49) Status:Active Family history of malignant neoplasm of brain: Sister(V16.8, Z80.8) Status:Active Family history of multiple m yeloma: Child(V16.7, Z80.7) Status:Active Family history of malignant neoplasm of female genital organ: Child(V16.49, Z80.49) Status:Active Family history of pancreatic cancer: Mother(V16.0, Z80.0) Status:Active Unknown Family Member Name Dates Details Family history of multiple m yeloma: Child(V16.7, Z80.7) Status:Active Family history of malignant neoplasm of female genital organ: Child(V16.49, Z80.49) Status:Active Family history of pancreatic cancer: Mother(V16.0, Z80.0) Status:Active Family history of malignant neoplasm of brain: Sister(V16.8, Z80.8) Status:Active Family history of malignant neoplasm of uterus: Sister(V16.49, Z80.49) Status:Active Family history of malignant neoplasm of colon: Sister(V16.0, Z80.0) Status:Active Family history of malignant melanoma: Sister(V16.8, Z80.8) Status:Active Family history of lung cance r: Brother(V16.1, Z80.1) Status:Active Family history of metastatic neoplastic disease: Brother(V16.9, Z80.9) Status:Active Family history of coronary a rtery disease: Brother, Sister(V17.3, Z82.49) Status:Active Family history of cerebrovas cular accident (CVA): Father, Brother, Sister(V17.1, Z82.3) Status:Active Family history of myocardial infarction: Father, Brother(V17.3, Z82.49) Status:Active Unknown Family Member Name Dates Details Family history of myocardial infarction: Father, Brother(V17.3, Z82.49) Status:Active Family history of cerebrovas cular accident (CVA): Father, Brother, Sister(V17.1, Z82.3) Status:Active Family history of coronary a rtery disease: Brother, Sister(V17.3, Z82.49) Status:Active Family history of metastatic neoplastic disease: Brother(V16.9, Z80.9) Status:Active Family history of lung cance r: Brother(V16.1, Z80.1) Status:Active Family history of malignant melanoma: Sister(V16.8, Z80.8) Status:Active Family history of malignant neoplasm of colon: Sister(V16.0, Z80.0) Status:Active Family history of malignant neoplasm of uterus: Sister(V16.49, Z80.49) Status:Active Family history of malignant neoplasm of brain: Sister(V16.8, Z80.8) Status:Active Family history of multiple m yeloma: Child(V16.7, Z80.7) Status:Active Family history of malignant neoplasm of female genital organ: Child(V16.49, Z80.49) Status:Active Family history of pancreatic cancer: Mother(V16.0, Z80.0) Status:Active Unknown Family Member Name Dates Details Family history of myocardial infarction: Father, Brother(V17.3, Z82.49) Status:Active Family history of cerebrovas cular accident (CVA): Father, Brother, Sister(V17.1, Z82.3) Status:Active Family history of coronary a rtery disease: Brother, Sister(V17.3, Z82.49) Status:Active Family history of metastatic neoplastic disease: Brother(V16.9, Z80.9) Status:Active Family history of lung cance r: Brother(V16.1, Z80.1) Status:Active Family history of malignant melanoma: Sister(V16.8, Z80.8) Status:Active Family history of malignant neoplasm of colon: Sister(V16.0, Z80.0) Status:Active Family history of malignant neoplasm of uterus: Sister(V16.49, Z80.49) Status:Active Family history of malignant neoplasm of brain: Sister(V16.8, Z80.8) Status:Active Family history of multiple m yeloma: Child(V16.7, Z80.7) Status:Active Family history of malignant neoplasm of female genital organ: Child(V16.49, Z80.49) Status:Active Family history of pancreatic cancer: Mother(V16.0, Z80.0) Status:Active Unknown Family Member Name Dates Details Family history of myocardial infarction: Father, Brother(V17.3, Z82.49) Status:Active Family history of cerebrovas cular accident (CVA): Father, Brother, Sister(V17.1, Z82.3) Status:Active Family history of coronary a rtery disease: Brother, Sister(V17.3, Z82.49) Status:Active Family history of metastatic neoplastic disease: Brother(V16.9, Z80.9) Status:Active Family history of lung cance r: Brother(V16.1, Z80.1) Status:Active Family history of malignant melanoma: Sister(V16.8, Z80.8) Status:Active Family history of malignant neoplasm of colon: Sister(V16.0, Z80.0) Status:Active Family history of malignant neoplasm of uterus: Sister(V16.49, Z80.49) Status:Active Family history of malignant neoplasm of brain: Sister(V16.8, Z80.8) Status:Active Family history of multiple m yeloma: Child(V16.7, Z80.7) Status:Active Family history of malignant neoplasm of female genital organ: Child(V16.49, Z80.49) Status:Active Family history of pancreatic cancer: Mother(V16.0, Z80.0) Status:Active Unknown Family Member Name Dates Details Family history of myocardial infarction: Father, Brother(V17.3, Z82.49) Status:Active Family history of cerebrovas cular accident (CVA): Father, Brother, Sister(V17.1, Z82.3) Status:Active Family history of coronary a rtery disease: Brother, Sister(V17.3, Z82.49) Status:Active Family history of metastatic neoplastic disease: Brother(V16.9, Z80.9) Status:Active Family history of lung cance r: Brother(V16.1, Z80.1) Status:Active Family history of malignant melanoma: Sister(V16.8, Z80.8) Status:Active Family history of malignant neoplasm of colon: Sister(V16.0, Z80.0) Status:Active Family history of malignant neoplasm of uterus: Sister(V16.49, Z80.49) Status:Active Family history of malignant neoplasm of brain: Sister(V16.8, Z80.8) Status:Active Family history of multiple m yeloma: Child(V16.7, Z80.7) Status:Active Family history of malignant neoplasm of female genital organ: Child(V16.49, Z80.49) Status:Active Family history of pancreatic cancer: Mother(V16.0, Z80.0) Status:Active Unknown Family Member Name Dates Details Family history of myocardial infarction: Father, Brother(V17.3, Z82.49) Status:Active Family history of cerebrovas cular accident (CVA): Father, Brother, Sister(V17.1, Z82.3) Status:Active Family history of coronary a rtery disease: Brother, Sister(V17.3, Z82.49) Status:Active Family history of metastatic neoplastic disease: Brother(V16.9, Z80.9) Status:Active Family history of lung cance r: Brother(V16.1, Z80.1) Status:Active Family history of malignant melanoma: Sister(V16.8, Z80.8) Status:Active Family history of malignant neoplasm of colon: Sister(V16.0, Z80.0) Status:Active Family history of malignant neoplasm of uterus: Sister(V16.49, Z80.49) Status:Active Family history of malignant neoplasm of brain: Sister(V16.8, Z80.8) Status:Active Family history of multiple m yeloma: Child(V16.7, Z80.7) Status:Active Family history of malignant neoplasm of female genital organ: Child(V16.49, Z80.49) Status:Active Family history of pancreatic cancer: Mother(V16.0, Z80.0) Status:Active Unknown Family Member Name Dates Details Family history of pancreatic cancer: Mother(V16.0, Z80.0) Status:Active Family history of malignant neoplasm of female genital organ: Child(V16.49, Z80.49) Status:Active Family history of multiple m yeloma: Child(V16.7, Z80.7) Status:Active Family history of myocardial infarction: Father, Brother(V17.3, Z82.49) Status:Active Family history of cerebrovas cular accident (CVA): Father, Brother, Sister(V17.1, Z82.3) Status:Active Family history of coronary a rtery disease: Brother, Sister(V17.3, Z82.49) Status:Active Family history of metastatic neoplastic disease: Brother(V16.9, Z80.9) Status:Active Family history of lung cance r: Brother(V16.1, Z80.1) Status:Active Family history of malignant melanoma: Sister(V16.8, Z80.8) Status:Active Family history of malignant neoplasm of colon: Sister(V16.0, Z80.0) Status:Active Family history of malignant neoplasm of uterus: Sister(V16.49, Z80.49) Status:Active Family history of malignant neoplasm of brain: Sister(V16.8, Z80.8) Status:Active Unknown Family Member Name Dates Details Family history of multiple m yeloma: Child(V16.7, Z80.7) Status:Active Family history of malignant neoplasm of female genital organ: Child(V16.49, Z80.49) Status:Active Family history of pancreatic cancer: Mother(V16.0, Z80.0) Status:Active Family history of malignant neoplasm of brain: Sister(V16.8, Z80.8) Status:Active Family history of malignant neoplasm of uterus: Sister(V16.49, Z80.49) Status:Active Family history of malignant neoplasm of colon: Sister(V16.0, Z80.0) Status:Active Family history of malignant melanoma: Sister(V16.8, Z80.8) Status:Active Family history of lung cance r: Brother(V16.1, Z80.1) Status:Active Family history of metastatic neoplastic disease: Brother(V16.9, Z80.9) Status:Active Family history of coronary a rtery disease: Brother, Sister(V17.3, Z82.49) Status:Active Family history of cerebrovas cular accident (CVA): Father, Brother, Sister(V17.1, Z82.3) Status:Active Family history of myocardial infarction: Father, Brother(V17.3, Z82.49) Status:Active Unknown Family Member Name Dates Details Family history of myocardial infarction: Father, Brother(V17.3, Z82.49) Status:Active Family history of cerebrovas cular accident (CVA): Father, Brother, Sister(V17.1, Z82.3) Status:Active Family history of coronary a rtery disease: Brother, Sister(V17.3, Z82.49) Status:Active Family history of metastatic neoplastic disease: Brother(V16.9, Z80.9) Status:Active Family history of lung cance r: Brother(V16.1, Z80.1) Status:Active Family history of malignant melanoma: Sister(V16.8, Z80.8) Status:Active Family history of malignant neoplasm of colon: Sister(V16.0, Z80.0) Status:Active Family history of malignant neoplasm of uterus: Sister(V16.49, Z80.49) Status:Active Family history of malignant neoplasm of brain: Sister(V16.8, Z80.8) Status:Active Family history of pancreatic cancer: Mother(V16.0, Z80.0) Status:Active Family history of malignant neoplasm of female genital organ: Child(V16.49, Z80.49) Status:Active Family history of multiple m yeloma: Child(V16.7, Z80.7) Status:Active Unknown Family Member Name Dates Details Family history of myocardial infarction: Father, Brother(V17.3, Z82.49) Status:Active Family history of cerebrovas cular accident (CVA): Father, Brother, Sister(V17.1, Z82.3) Status:Active Family history of coronary a rtery disease: Brother, Sister(V17.3, Z82.49) Status:Active Family history of metastatic neoplastic disease: Brother(V16.9, Z80.9) Status:Active Family history of lung cance r: Brother(V16.1, Z80.1) Status:Active Family history of malignant melanoma: Sister(V16.8, Z80.8) Status:Active Family history of malignant neoplasm of colon: Sister(V16.0, Z80.0) Status:Active Family history of malignant neoplasm of uterus: Sister(V16.49, Z80.49) Status:Active Family history of malignant neoplasm of brain: Sister(V16.8, Z80.8) Status:Active Family history of multiple m yeloma: Child(V16.7, Z80.7) Status:Active Family history of malignant neoplasm of female genital organ: Child(V16.49, Z80.49) Status:Active Family history of pancreatic cancer: Mother(V16.0, Z80.0) Status:Active Unknown Family Member Name Dates Details Family history of myocardial infarction: Father, Brother(V17.3, Z82.49) Status:Active Family history of cerebrovas cular accident (CVA): Father, Brother, Sister(V17.1, Z82.3) Status:Active Family history of coronary a rtery disease: Brother, Sister(V17.3, Z82.49) Status:Active Family history of metastatic neoplastic disease: Brother(V16.9, Z80.9) Status:Active Family history of lung cance r: Brother(V16.1, Z80.1) Status:Active Family history of malignant melanoma: Sister(V16.8, Z80.8) Status:Active Family history of malignant neoplasm of colon: Sister(V16.0, Z80.0) Status:Active Family history of malignant neoplasm of uterus: Sister(V16.49, Z80.49) Status:Active Family history of malignant neoplasm of brain: Sister(V16.8, Z80.8) Status:Active Family history of multiple m yeloma: Child(V16.7, Z80.7) Status:Active Family history of malignant neoplasm of female genital organ: Child(V16.49, Z80.49) Status:Active Family history of pancreatic cancer: Mother(V16.0, Z80.0) Status:Active Unknown Family Member Name Dates Details Family history of pancreatic cancer: Mother(V16.0, Z80.0) Status:Active Family history of malignant neoplasm of female genital organ: Child(V16.49, Z80.49) Status:Active Family history of multiple m yeloma: Child(V16.7, Z80.7) Status:Active Family history of malignant neoplasm of brain: Sister(V16.8, Z80.8) Status:Active Family history of malignant neoplasm of uterus: Sister(V16.49, Z80.49) Status:Active Family history of malignant neoplasm of colon: Sister(V16.0, Z80.0) Status:Active Family history of malignant melanoma: Sister(V16.8, Z80.8) Status:Active Family history of lung cance r: Brother(V16.1, Z80.1) Status:Active Family history of metastatic neoplastic disease: Brother(V16.9, Z80.9) Status:Active Family history of coronary a rtery disease: Brother, Sister(V17.3, Z82.49) Status:Active Family history of cerebrovas cular accident (CVA): Father, Brother, Sister(V17.1, Z82.3) Status:Active Family history of myocardial infarction: Father, Brother(V17.3, Z82.49) Status:Active Unknown Family Member Name Dates Details Family history of myocardial infarction: Father, Brother(V17.3, Z82.49) Status:Active Family history of cerebrovas cular accident (CVA): Father, Brother, Sister(V17.1, Z82.3) Status:Active Family history of coronary a rtery disease: Brother, Sister(V17.3, Z82.49) Status:Active Family history of metastatic neoplastic disease: Brother(V16.9, Z80.9) Status:Active Family history of lung cance r: Brother(V16.1, Z80.1) Status:Active Family history of malignant melanoma: Sister(V16.8, Z80.8) Status:Active Family history of malignant neoplasm of colon: Sister(V16.0, Z80.0) Status:Active Family history of malignant neoplasm of uterus: Sister(V16.49, Z80.49) Status:Active Family history of malignant neoplasm of brain: Sister(V16.8, Z80.8) Status:Active Family history of multiple m yeloma: Child(V16.7, Z80.7) Status:Active Family history of malignant neoplasm of female genital organ: Child(V16.49, Z80.49) Status:Active Family history of pancreatic cancer: Mother(V16.0, Z80.0) Status:Active Unknown Family Member Name Dates Details Family history of myocardial infarction: Father, Brother(V17.3, Z82.49) Status:Active Family history of cerebrovas cular accident (CVA): Father, Brother, Sister(V17.1, Z82.3) Status:Active Family history of coronary a rtery disease: Brother, Sister(V17.3, Z82.49) Status:Active Family history of metastatic neoplastic disease: Brother(V16.9, Z80.9) Status:Active Family history of lung cance r: Brother(V16.1, Z80.1) Status:Active Family history of malignant melanoma: Sister(V16.8, Z80.8) Status:Active Family history of malignant neoplasm of colon: Sister(V16.0, Z80.0) Status:Active Family history of malignant neoplasm of uterus: Sister(V16.49, Z80.49) Status:Active Family history of malignant neoplasm of brain: Sister(V16.8, Z80.8) Status:Active Family history of multiple m yeloma: Child(V16.7, Z80.7) Status:Active Family history of malignant neoplasm of female genital organ: Child(V16.49, Z80.49) Status:Active Family history of pancreatic cancer: Mother(V16.0, Z80.0) Status:Active Unknown Family Member Name Dates Details Family history of myocardial infarction: Father, Brother(V17.3, Z82.49) Status:Active Family history of cerebrovas cular accident (CVA): Father, Brother, Sister(V17.1, Z82.3) Status:Active Family history of coronary a rtery disease: Brother, Sister(V17.3, Z82.49) Status:Active Family history of metastatic neoplastic disease: Brother(V16.9, Z80.9) Status:Active Family history of lung cance r: Brother(V16.1, Z80.1) Status:Active Family history of malignant melanoma: Sister(V16.8, Z80.8) Status:Active Family history of malignant neoplasm of colon: Sister(V16.0, Z80.0) Status:Active Family history of malignant neoplasm of uterus: Sister(V16.49, Z80.49) Status:Active Family history of malignant neoplasm of brain: Sister(V16.8, Z80.8) Status:Active Family history of multiple m yeloma: Child(V16.7, Z80.7) Status:Active Family history of malignant neoplasm of female genital organ: Child(V16.49, Z80.49) Status:Active Family history of pancreatic cancer: Mother(V16.0, Z80.0) Status:Active Unknown Family Member Name Dates Details Family history of myocardial infarction: Father, Brother(V17.3, Z82.49) Status:Active Family history of cerebrovas cular accident (CVA): Father, Brother, Sister(V17.1, Z82.3) Status:Active Family history of coronary a rtery disease: Brother, Sister(V17.3, Z82.49) Status:Active Family history of metastatic neoplastic disease: Brother(V16.9, Z80.9) Status:Active Family history of lung cance r: Brother(V16.1, Z80.1) Status:Active Family history of malignant melanoma: Sister(V16.8, Z80.8) Status:Active Family history of malignant neoplasm of colon: Sister(V16.0, Z80.0) Status:Active Family history of malignant neoplasm of uterus: Sister(V16.49, Z80.49) Status:Active Family history of malignant neoplasm of brain: Sister(V16.8, Z80.8) Status:Active Family history of multiple m yeloma: Child(V16.7, Z80.7) Status:Active Family history of malignant neoplasm of female genital organ: Child(V16.49, Z80.49) Status:Active Family history of pancreatic cancer: Mother(V16.0, Z80.0) Status:Active Unknown Family Member Name Dates Details Family history of myocardial infarction: Father, Brother(V17.3, Z82.49) Status:Active Family history of cerebrovas cular accident (CVA): Father, Brother, Sister(V17.1, Z82.3) Status:Active Family history of coronary a rtery disease: Brother, Sister(V17.3, Z82.49) Status:Active Family history of metastatic neoplastic disease: Brother(V16.9, Z80.9) Status:Active Family history of lung cance r: Brother(V16.1, Z80.1) Status:Active Family history of malignant melanoma: Sister(V16.8, Z80.8) Status:Active Family history of malignant neoplasm of colon: Sister(V16.0, Z80.0) Status:Active Family history of malignant neoplasm of uterus: Sister(V16.49, Z80.49) Status:Active Family history of malignant neoplasm of brain: Sister(V16.8, Z80.8) Status:Active Family history of multiple m yeloma: Child(V16.7, Z80.7) Status:Active Family history of malignant neoplasm of female genital organ: Child(V16.49, Z80.49) Status:Active Family history of pancreatic cancer: Mother(V16.0, Z80.0) Status:Active Unknown Family Member Name Dates Details Family history of myocardial infarction: Father, Brother(V17.3, Z82.49) Status:Active Family history of cerebrovas cular accident (CVA): Father, Brother, Sister(V17.1, Z82.3) Status:Active Family history of coronary a rtery disease: Brother, Sister(V17.3, Z82.49) Status:Active Family history of metastatic neoplastic disease: Brother(V16.9, Z80.9) Status:Active Family history of lung cance r: Brother(V16.1, Z80.1) Status:Active Family history of malignant melanoma: Sister(V16.8, Z80.8) Status:Active Family history of malignant neoplasm of colon: Sister(V16.0, Z80.0) Status:Active Family history of malignant neoplasm of uterus: Sister(V16.49, Z80.49) Status:Active Family history of malignant neoplasm of brain: Sister(V16.8, Z80.8) Status:Active Family history of multiple m yeloma: Child(V16.7, Z80.7) Status:Active Family history of malignant neoplasm of female genital organ: Child(V16.49, Z80.49) Status:Active Family history of pancreatic cancer: Mother(V16.0, Z80.0) Status:Active Unknown Family Member Name Dates Details Family history of myocardial infarction: Father, Brother(V17.3, Z82.49) Status:Active Family history of cerebrovas cular accident (CVA): Father, Brother, Sister(V17.1, Z82.3) Status:Active Family history of coronary a rtery disease: Brother, Sister(V17.3, Z82.49) Status:Active Family history of metastatic neoplastic disease: Brother(V16.9, Z80.9) Status:Active Family history of lung cance r: Brother(V16.1, Z80.1) Status:Active Family history of malignant melanoma: Sister(V16.8, Z80.8) Status:Active Family history of malignant neoplasm of colon: Sister(V16.0, Z80.0) Status:Active Family history of malignant neoplasm of uterus: Sister(V16.49, Z80.49) Status:Active Family history of malignant neoplasm of brain: Sister(V16.8, Z80.8) Status:Active Family history of multiple m yeloma: Child(V16.7, Z80.7) Status:Active Family history of malignant neoplasm of female genital organ: Child(V16.49, Z80.49) Status:Active Family history of pancreatic cancer: Mother(V16.0, Z80.0) Status:Active Unknown Family Member Name Dates Details Family history of myocardial infarction: Father, Brother(V17.3, Z82.49) Status:Active Family history of cerebrovas cular accident (CVA): Father, Brother, Sister(V17.1, Z82.3) Status:Active Family history of coronary a rtery disease: Brother, Sister(V17.3, Z82.49) Status:Active Family history of metastatic neoplastic disease: Brother(V16.9, Z80.9) Status:Active Family history of lung cance r: Brother(V16.1, Z80.1) Status:Active Family history of malignant melanoma: Sister(V16.8, Z80.8) Status:Active Family history of malignant neoplasm of colon: Sister(V16.0, Z80.0) Status:Active Family history of malignant neoplasm of uterus: Sister(V16.49, Z80.49) Status:Active Family history of malignant neoplasm of brain: Sister(V16.8, Z80.8) Status:Active Family history of multiple m yeloma: Child(V16.7, Z80.7) Status:Active Family history of malignant neoplasm of female genital organ: Child(V16.49, Z80.49) Status:Active Family history of pancreatic cancer: Mother(V16.0, Z80.0) Status:Active Unknown Family Member Name Dates Details Family history of myocardial infarction: Father, Brother(V17.3, Z82.49) Status:Active Family history of cerebrovas cular accident (CVA): Father, Brother, Sister(V17.1, Z82.3) Status:Active Family history of coronary a rtery disease: Brother, Sister(V17.3, Z82.49) Status:Active Family history of metastatic neoplastic disease: Brother(V16.9, Z80.9) Status:Active Family history of lung cance r: Brother(V16.1, Z80.1) Status:Active Family history of malignant melanoma: Sister(V16.8, Z80.8) Status:Active Family history of malignant neoplasm of colon: Sister(V16.0, Z80.0) Status:Active Family history of malignant neoplasm of uterus: Sister(V16.49, Z80.49) Status:Active Family history of malignant neoplasm of brain: Sister(V16.8, Z80.8) Status:Active Family history of multiple m yeloma: Child(V16.7, Z80.7) Status:Active Family history of malignant neoplasm of female genital organ: Child(V16.49, Z80.49) Status:Active Family history of pancreatic cancer: Mother(V16.0, Z80.0) Status:Active Unknown Family Member Name Dates Details Family history of myocardial infarction: Father, Brother(V17.3, Z82.49) Status:Active Family history of cerebrovas cular accident (CVA): Father, Brother, Sister(V17.1, Z82.3) Status:Active Family history of coronary a rtery disease: Brother, Sister(V17.3, Z82.49) Status:Active Family history of metastatic neoplastic disease: Brother(V16.9, Z80.9) Status:Active Family history of lung cance r: Brother(V16.1, Z80.1) Status:Active Family history of malignant melanoma: Sister(V16.8, Z80.8) Status:Active Family history of malignant neoplasm of colon: Sister(V16.0, Z80.0) Status:Active Family history of malignant neoplasm of uterus: Sister(V16.49, Z80.49) Status:Active Family history of malignant neoplasm of brain: Sister(V16.8, Z80.8) Status:Active Family history of multiple m yeloma: Child(V16.7, Z80.7) Status:Active Family history of malignant neoplasm of female genital organ: Child(V16.49, Z80.49) Status:Active Family history of pancreatic cancer: Mother(V16.0, Z80.0) Status:Active Unknown Family Member Name Dates Details Family history of myocardial infarction: Father, Brother(V17.3, Z82.49) Status:Active Family history of cerebrovas cular accident (CVA): Father, Brother, Sister(V17.1, Z82.3) Status:Active Family history of coronary a rtery disease: Brother, Sister(V17.3, Z82.49) Status:Active Family history of metastatic neoplastic disease: Brother(V16.9, Z80.9) Status:Active Family history of lung cance r: Brother(V16.1, Z80.1) Status:Active Family history of malignant melanoma: Sister(V16.8, Z80.8) Status:Active Family history of malignant neoplasm of colon: Sister(V16.0, Z80.0) Status:Active Family history of malignant neoplasm of uterus: Sister(V16.49, Z80.49) Status:Active Family history of malignant neoplasm of brain: Sister(V16.8, Z80.8) Status:Active Family history of multiple m yeloma: Child(V16.7, Z80.7) Status:Active Family history of malignant neoplasm of female genital organ: Child(V16.49, Z80.49) Status:Active Family history of pancreatic cancer: Mother(V16.0, Z80.0) Status:Active Unknown Family Member Name Dates Details Family history of myocardial infarction: Father, Brother(V17.3, Z82.49) Status:Active Family history of cerebrovas cular accident (CVA): Father, Brother, Sister(V17.1, Z82.3) Status:Active Family history of coronary a rtery disease: Brother, Sister(V17.3, Z82.49) Status:Active Family history of metastatic neoplastic disease: Brother(V16.9, Z80.9) Status:Active Family history of lung cance r: Brother(V16.1, Z80.1) Status:Active Family history of malignant melanoma: Sister(V16.8, Z80.8) Status:Active Family history of malignant neoplasm of colon: Sister(V16.0, Z80.0) Status:Active Family history of malignant neoplasm of uterus: Sister(V16.49, Z80.49) Status:Active Family history of malignant neoplasm of brain: Sister(V16.8, Z80.8) Status:Active Family history of multiple m yeloma: Child(V16.7, Z80.7) Status:Active Family history of malignant neoplasm of female genital organ: Child(V16.49, Z80.49) Status:Active Family history of pancreatic cancer: Mother(V16.0, Z80.0) Status:Active Unknown Family Member Name Dates Details Family history of myocardial infarction: Father, Brother(V17.3, Z82.49) Status:Active Family history of cerebrovas cular accident (CVA): Father, Brother, Sister(V17.1, Z82.3) Status:Active Family history of coronary a rtery disease: Brother, Sister(V17.3, Z82.49) Status:Active Family history of metastatic neoplastic disease: Brother(V16.9, Z80.9) Status:Active Family history of lung cance r: Brother(V16.1, Z80.1) Status:Active Family history of malignant melanoma: Sister(V16.8, Z80.8) Status:Active Family history of malignant neoplasm of colon: Sister(V16.0, Z80.0) Status:Active Family history of malignant neoplasm of uterus: Sister(V16.49, Z80.49) Status:Active Family history of malignant neoplasm of brain: Sister(V16.8, Z80.8) Status:Active Family history of multiple m yeloma: Child(V16.7, Z80.7) Status:Active Family history of malignant neoplasm of female genital organ: Child(V16.49, Z80.49) Status:Active Family history of pancreatic cancer: Mother(V16.0, Z80.0) Status:Active Unknown Family Member Name Dates Details Family history of myocardial infarction: Father, Brother(V17.3, Z82.49) Status:Active Family history of cerebrovas cular accident (CVA): Father, Brother, Sister(V17.1, Z82.3) Status:Active Family history of coronary a rtery disease: Brother, Sister(V17.3, Z82.49) Status:Active Family history of metastatic neoplastic disease: Brother(V16.9, Z80.9) Status:Active Family history of lung cance r: Brother(V16.1, Z80.1) Status:Active Family history of malignant melanoma: Sister(V16.8, Z80.8) Status:Active Family history of malignant neoplasm of colon: Sister(V16.0, Z80.0) Status:Active Family history of malignant neoplasm of uterus: Sister(V16.49, Z80.49) Status:Active Family history of malignant neoplasm of brain: Sister(V16.8, Z80.8) Status:Active Family history of multiple m yeloma: Child(V16.7, Z80.7) Status:Active Family history of malignant neoplasm of female genital organ: Child(V16.49, Z80.49) Status:Active Family history of pancreatic cancer: Mother(V16.0, Z80.0) Status:Active Unknown Family Member Name Dates Details Family history of myocardial infarction: Father, Brother(V17.3, Z82.49) Status:Active Family history of cerebrovas cular accident (CVA): Father, Brother, Sister(V17.1, Z82.3) Status:Active Family history of coronary a rtery disease: Brother, Sister(V17.3, Z82.49) Status:Active Family history of metastatic neoplastic disease: Brother(V16.9, Z80.9) Status:Active Family history of lung cance r: Brother(V16.1, Z80.1) Status:Active Family history of malignant melanoma: Sister(V16.8, Z80.8) Status:Active Family history of malignant neoplasm of colon: Sister(V16.0, Z80.0) Status:Active Family history of malignant neoplasm of uterus: Sister(V16.49, Z80.49) Status:Active Family history of malignant neoplasm of brain: Sister(V16.8, Z80.8) Status:Active Family history of multiple m yeloma: Child(V16.7, Z80.7) Status:Active Family history of malignant neoplasm of female genital organ: Child(V16.49, Z80.49) Status:Active Family history of pancreatic cancer: Mother(V16.0, Z80.0) Status:Active Unknown Family Member Name Dates Details Family history of pancreatic cancer: Mother(V16.0, Z80.0) Status:Active Family history of malignant neoplasm of female genital organ: Child(V16.49, Z80.49) Status:Active Family history of multiple m yeloma: Child(V16.7, Z80.7) Status:Active Family history of malignant neoplasm of brain: Sister(V16.8, Z80.8) Status:Active Family history of malignant neoplasm of uterus: Sister(V16.49, Z80.49) Status:Active Family history of malignant neoplasm of colon: Sister(V16.0, Z80.0) Status:Active Family history of malignant melanoma: Sister(V16.8, Z80.8) Status:Active Family history of lung cance r: Brother(V16.1, Z80.1) Status:Active Family history of metastatic neoplastic disease: Brother(V16.9, Z80.9) Status:Active Family history of coronary a rtery disease: Brother, Sister(V17.3, Z82.49) Status:Active Family history of cerebrovas cular accident (CVA): Father, Brother, Sister(V17.1, Z82.3) Status:Active Family history of myocardial infarction: Father, Brother(V17.3, Z82.49) Status:Active Unknown Family Member Name Dates Details Family history of myocardial infarction: Father, Brother(V17.3, Z82.49) Status:Active Family history of cerebrovas cular accident (CVA): Father, Brother, Sister(V17.1, Z82.3) Status:Active Family history of coronary a rtery disease: Brother, Sister(V17.3, Z82.49) Status:Active Family history of metastatic neoplastic disease: Brother(V16.9, Z80.9) Status:Active Family history of lung cance r: Brother(V16.1, Z80.1) Status:Active Family history of malignant melanoma: Sister(V16.8, Z80.8) Status:Active Family history of malignant neoplasm of colon: Sister(V16.0, Z80.0) Status:Active Family history of malignant neoplasm of uterus: Sister(V16.49, Z80.49) Status:Active Family history of malignant neoplasm of brain: Sister(V16.8, Z80.8) Status:Active Family history of multiple m yeloma: Child(V16.7, Z80.7) Status:Active Family history of malignant neoplasm of female genital organ: Child(V16.49, Z80.49) Status:Active Family history of pancreatic cancer: Mother(V16.0, Z80.0) Status:Active Unknown Family Member Name Dates Details Family history of myocardial infarction: Father, Brother(V17.3, Z82.49) Status:Active Family history of cerebrovas cular accident (CVA): Father, Brother, Sister(V17.1, Z82.3) Status:Active Family history of coronary a rtery disease: Brother, Sister(V17.3, Z82.49) Status:Active Family history of metastatic neoplastic disease: Brother(V16.9, Z80.9) Status:Active Family history of lung cance r: Brother(V16.1, Z80.1) Status:Active Family history of malignant melanoma: Sister(V16.8, Z80.8) Status:Active Family history of malignant neoplasm of colon: Sister(V16.0, Z80.0) Status:Active Family history of malignant neoplasm of uterus: Sister(V16.49, Z80.49) Status:Active Family history of malignant neoplasm of brain: Sister(V16.8, Z80.8) Status:Active Family history of multiple m yeloma: Child(V16.7, Z80.7) Status:Active Family history of malignant neoplasm of female genital organ: Child(V16.49, Z80.49) Status:Active Family history of pancreatic cancer: Mother(V16.0, Z80.0) Status:Active Unknown Family Member Name Dates Details Family history of myocardial infarction: Father, Brother(V17.3, Z82.49) Status:Active Family history of cerebrovas cular accident (CVA): Father, Brother, Sister(V17.1, Z82.3) Status:Active Family history of coronary a rtery disease: Brother, Sister(V17.3, Z82.49) Status:Active Family history of metastatic neoplastic disease: Brother(V16.9, Z80.9) Status:Active Family history of lung cance r: Brother(V16.1, Z80.1) Status:Active Family history of malignant melanoma: Sister(V16.8, Z80.8) Status:Active Family history of malignant neoplasm of colon: Sister(V16.0, Z80.0) Status:Active Family history of malignant neoplasm of uterus: Sister(V16.49, Z80.49) Status:Active Family history of malignant neoplasm of brain: Sister(V16.8, Z80.8) Status:Active Family history of multiple m yeloma: Child(V16.7, Z80.7) Status:Active Family history of malignant neoplasm of female genital organ: Child(V16.49, Z80.49) Status:Active Family history of pancreatic cancer: Mother(V16.0, Z80.0) Status:Active Unknown Family Member Name Dates Details Family history of myocardial infarction: Father, Brother(V17.3, Z82.49) Status:Active Family history of cerebrovas cular accident (CVA): Father, Brother, Sister(V17.1, Z82.3) Status:Active Family history of coronary a rtery disease: Brother, Sister(V17.3, Z82.49) Status:Active Family history of metastatic neoplastic disease: Brother(V16.9, Z80.9) Status:Active Family history of lung cance r: Brother(V16.1, Z80.1) Status:Active Family history of malignant melanoma: Sister(V16.8, Z80.8) Status:Active Family history of malignant neoplasm of colon: Sister(V16.0, Z80.0) Status:Active Family history of malignant neoplasm of uterus: Sister(V16.49, Z80.49) Status:Active Family history of malignant neoplasm of brain: Sister(V16.8, Z80.8) Status:Active Family history of multiple m yeloma: Child(V16.7, Z80.7) Status:Active Family history of malignant neoplasm of female genital organ: Child(V16.49, Z80.49) Status:Active Family history of pancreatic cancer: Mother(V16.0, Z80.0) Status:Active Unknown Family Member Name Dates Details Family history of myocardial infarction: Father, Brother(V17.3, Z82.49) Status:Active Family history of cerebrovas cular accident (CVA): Father, Brother, Sister(V17.1, Z82.3) Status:Active Family history of coronary a rtery disease: Brother, Sister(V17.3, Z82.49) Status:Active Family history of metastatic neoplastic disease: Brother(V16.9, Z80.9) Status:Active Family history of lung cance r: Brother(V16.1, Z80.1) Status:Active Family history of malignant melanoma: Sister(V16.8, Z80.8) Status:Active Family history of malignant neoplasm of colon: Sister(V16.0, Z80.0) Status:Active Family history of malignant neoplasm of uterus: Sister(V16.49, Z80.49) Status:Active Family history of malignant neoplasm of brain: Sister(V16.8, Z80.8) Status:Active Family history of multiple m yeloma: Child(V16.7, Z80.7) Status:Active Family history of malignant neoplasm of female genital organ: Child(V16.49, Z80.49) Status:Active Family history of pancreatic cancer: Mother(V16.0, Z80.0) Status:Active Unknown Family Member Name Dates Details Family history of myocardial infarction: Father, Brother(V17.3, Z82.49) Status:Active Family history of cerebrovas cular accident (CVA): Father, Brother, Sister(V17.1, Z82.3) Status:Active Family history of coronary a rtery disease: Brother, Sister(V17.3, Z82.49) Status:Active Family history of metastatic neoplastic disease: Brother(V16.9, Z80.9) Status:Active Family history of lung cance r: Brother(V16.1, Z80.1) Status:Active Family history of malignant melanoma: Sister(V16.8, Z80.8) Status:Active Family history of malignant neoplasm of colon: Sister(V16.0, Z80.0) Status:Active Family history of malignant neoplasm of uterus: Sister(V16.49, Z80.49) Status:Active Family history of malignant neoplasm of brain: Sister(V16.8, Z80.8) Status:Active Family history of multiple m yeloma: Child(V16.7, Z80.7) Status:Active Family history of malignant neoplasm of female genital organ: Child(V16.49, Z80.49) Status:Active Family history of pancreatic cancer: Mother(V16.0, Z80.0) Status:Active Unknown Family Member Name Dates Details Family history of myocardial infarction: Father, Brother(V17.3, Z82.49) Status:Active Family history of cerebrovas cular accident (CVA): Father, Brother, Sister(V17.1, Z82.3) Status:Active Family history of coronary a rtery disease: Brother, Sister(V17.3, Z82.49) Status:Active Family history of metastatic neoplastic disease: Brother(V16.9, Z80.9) Status:Active Family history of lung cance r: Brother(V16.1, Z80.1) Status:Active Family history of malignant melanoma: Sister(V16.8, Z80.8) Status:Active Family history of malignant neoplasm of colon: Sister(V16.0, Z80.0) Status:Active Family history of malignant neoplasm of uterus: Sister(V16.49, Z80.49) Status:Active Family history of malignant neoplasm of brain: Sister(V16.8, Z80.8) Status:Active Family history of multiple m yeloma: Child(V16.7, Z80.7) Status:Active Family history of malignant neoplasm of female genital organ: Child(V16.49, Z80.49) Status:Active Family history of pancreatic cancer: Mother(V16.0, Z80.0) Status:Active Unknown Family Member Name Dates Details Family history of myocardial infarction: Father, Brother(V17.3, Z82.49) Status:Active Family history of cerebrovas cular accident (CVA): Father, Brother, Sister(V17.1, Z82.3) Status:Active Family history of coronary a rtery disease: Brother, Sister(V17.3, Z82.49) Status:Active Family history of metastatic neoplastic disease: Brother(V16.9, Z80.9) Status:Active Family history of lung cance r: Brother(V16.1, Z80.1) Status:Active Family history of malignant melanoma: Sister(V16.8, Z80.8) Status:Active Family history of malignant neoplasm of colon: Sister(V16.0, Z80.0) Status:Active Family history of malignant neoplasm of uterus: Sister(V16.49, Z80.49) Status:Active Family history of malignant neoplasm of brain: Sister(V16.8, Z80.8) Status:Active Family history of multiple m yeloma: Child(V16.7, Z80.7) Status:Active Family history of malignant neoplasm of female genital organ: Child(V16.49, Z80.49) Status:Active Family history of pancreatic cancer: Mother(V16.0, Z80.0) Status:Active Unknown Family Member Name Dates Details Family history of myocardial infarction: Father, Brother(V17.3, Z82.49) Status:Active Family history of cerebrovas cular accident (CVA): Father, Brother, Sister(V17.1, Z82.3) Status:Active Family history of coronary a rtery disease: Brother, Sister(V17.3, Z82.49) Status:Active Family history of metastatic neoplastic disease: Brother(V16.9, Z80.9) Status:Active Family history of lung cance r: Brother(V16.1, Z80.1) Status:Active Family history of malignant melanoma: Sister(V16.8, Z80.8) Status:Active Family history of malignant neoplasm of colon: Sister(V16.0, Z80.0) Status:Active Family history of malignant neoplasm of uterus: Sister(V16.49, Z80.49) Status:Active Family history of malignant neoplasm of brain: Sister(V16.8, Z80.8) Status:Active Family history of multiple m yeloma: Child(V16.7, Z80.7) Status:Active Family history of malignant neoplasm of female genital organ: Child(V16.49, Z80.49) Status:Active Family history of pancreatic cancer: Mother(V16.0, Z80.0) Status:Active Unknown Family Member Name Dates Details Family history of pancreatic cancer: Mother(V16.0, Z80.0) Status:Active Family history of malignant neoplasm of female genital organ: Child(V16.49, Z80.49) Status:Active Family history of multiple m yeloma: Child(V16.7, Z80.7) Status:Active Family history of malignant neoplasm of brain: Sister(V16.8, Z80.8) Status:Active Family history of malignant neoplasm of uterus: Sister(V16.49, Z80.49) Status:Active Family history of malignant neoplasm of colon: Sister(V16.0, Z80.0) Status:Active Family history of malignant melanoma: Sister(V16.8, Z80.8) Status:Active Family history of lung cance r: Brother(V16.1, Z80.1) Status:Active Family history of metastatic neoplastic disease: Brother(V16.9, Z80.9) Status:Active Family history of coronary a rtery disease: Brother, Sister(V17.3, Z82.49) Status:Active Family history of cerebrovas cular accident (CVA): Father, Brother, Sister(V17.1, Z82.3) Status:Active Family history of myocardial infarction: Father, Brother(V17.3, Z82.49) Status:Active Unknown Family Member Name Dates Details Family history of myocardial infarction: Father, Brother(V17.3, Z82.49) Status:Active Family history of cerebrovas cular accident (CVA): Father, Brother, Sister(V17.1, Z82.3) Status:Active Family history of coronary a rtery disease: Brother, Sister(V17.3, Z82.49) Status:Active Family history of metastatic neoplastic disease: Brother(V16.9, Z80.9) Status:Active Family history of lung cance r: Brother(V16.1, Z80.1) Status:Active Family history of malignant melanoma: Sister(V16.8, Z80.8) Status:Active Family history of malignant neoplasm of colon: Sister(V16.0, Z80.0) Status:Active Family history of malignant neoplasm of uterus: Sister(V16.49, Z80.49) Status:Active Family history of malignant neoplasm of brain: Sister(V16.8, Z80.8) Status:Active Family history of multiple m yeloma: Child(V16.7, Z80.7) Status:Active Family history of malignant neoplasm of female genital organ: Child(V16.49, Z80.49) Status:Active Family history of pancreatic cancer: Mother(V16.0, Z80.0) Status:Active Unknown Family Member Name Dates Details Family history of myocardial infarction: Father, Brother(V17.3, Z82.49) Status:Active Family history of cerebrovas cular accident (CVA): Father, Brother, Sister(V17.1, Z82.3) Status:Active Family history of coronary a rtery disease: Brother, Sister(V17.3, Z82.49) Status:Active Family history of metastatic neoplastic disease: Brother(V16.9, Z80.9) Status:Active Family history of lung cance r: Brother(V16.1, Z80.1) Status:Active Family history of malignant melanoma: Sister(V16.8, Z80.8) Status:Active Family history of malignant neoplasm of colon: Sister(V16.0, Z80.0) Status:Active Family history of malignant neoplasm of uterus: Sister(V16.49, Z80.49) Status:Active Family history of malignant neoplasm of brain: Sister(V16.8, Z80.8) Status:Active Family history of multiple m yeloma: Child(V16.7, Z80.7) Status:Active Family history of malignant neoplasm of female genital organ: Child(V16.49, Z80.49) Status:Active Family history of pancreatic cancer: Mother(V16.0, Z80.0) Status:Active Unknown Family Member Name Dates Details Family history of myocardial infarction: Father, Brother(V17.3, Z82.49) Status:Active Family history of cerebrovas cular accident (CVA): Father, Brother, Sister(V17.1, Z82.3) Status:Active Family history of coronary a rtery disease: Brother, Sister(V17.3, Z82.49) Status:Active Family history of metastatic neoplastic disease: Brother(V16.9, Z80.9) Status:Active Family history of lung cance r: Brother(V16.1, Z80.1) Status:Active Family history of malignant melanoma: Sister(V16.8, Z80.8) Status:Active Family history of malignant neoplasm of colon: Sister(V16.0, Z80.0) Status:Active Family history of malignant neoplasm of uterus: Sister(V16.49, Z80.49) Status:Active Family history of malignant neoplasm of brain: Sister(V16.8, Z80.8) Status:Active Family history of multiple m yeloma: Child(V16.7, Z80.7) Status:Active Family history of malignant neoplasm of female genital organ: Child(V16.49, Z80.49) Status:Active Family history of pancreatic cancer: Mother(V16.0, Z80.0) Status:Active Unknown Family Member Name Dates Details Family history of myocardial infarction: Father, Brother(V17.3, Z82.49) Status:Active Family history of cerebrovas cular accident (CVA): Father, Brother, Sister(V17.1, Z82.3) Status:Active Family history of coronary a rtery disease: Brother, Sister(V17.3, Z82.49) Status:Active Family history of metastatic neoplastic disease: Brother(V16.9, Z80.9) Status:Active Family history of lung cance r: Brother(V16.1, Z80.1) Status:Active Family history of malignant melanoma: Sister(V16.8, Z80.8) Status:Active Family history of malignant neoplasm of colon: Sister(V16.0, Z80.0) Status:Active Family history of malignant neoplasm of uterus: Sister(V16.49, Z80.49) Status:Active Family history of malignant neoplasm of brain: Sister(V16.8, Z80.8) Status:Active Family history of multiple m yeloma: Child(V16.7, Z80.7) Status:Active Family history of malignant neoplasm of female genital organ: Child(V16.49, Z80.49) Status:Active Family history of pancreatic cancer: Mother(V16.0, Z80.0) Status:Active Unknown Family Member Name Dates Details Family history of myocardial infarction: Father, Brother(V17.3, Z82.49) Status:Active Family history of cerebrovas cular accident (CVA): Father, Brother, Sister(V17.1, Z82.3) Status:Active Family history of coronary a rtery disease: Brother, Sister(V17.3, Z82.49) Status:Active Family history of metastatic neoplastic disease: Brother(V16.9, Z80.9) Status:Active Family history of lung cance r: Brother(V16.1, Z80.1) Status:Active Family history of malignant melanoma: Sister(V16.8, Z80.8) Status:Active Family history of malignant neoplasm of colon: Sister(V16.0, Z80.0) Status:Active Family history of malignant neoplasm of uterus: Sister(V16.49, Z80.49) Status:Active Family history of malignant neoplasm of brain: Sister(V16.8, Z80.8) Status:Active Family history of multiple m yeloma: Child(V16.7, Z80.7) Status:Active Family history of malignant neoplasm of female genital organ: Child(V16.49, Z80.49) Status:Active Family history of pancreatic cancer: Mother(V16.0, Z80.0) Status:Active Unknown Family Member Name Dates Details Family history of myocardial infarction: Father, Brother(V17.3, Z82.49) Status:Active Family history of cerebrovas cular accident (CVA): Father, Brother, Sister(V17.1, Z82.3) Status:Active Family history of coronary a rtery disease: Brother, Sister(V17.3, Z82.49) Status:Active Family history of metastatic neoplastic disease: Brother(V16.9, Z80.9) Status:Active Family history of lung cance r: Brother(V16.1, Z80.1) Status:Active Family history of malignant melanoma: Sister(V16.8, Z80.8) Status:Active Family history of malignant neoplasm of colon: Sister(V16.0, Z80.0) Status:Active Family history of malignant neoplasm of uterus: Sister(V16.49, Z80.49) Status:Active Family history of malignant neoplasm of brain: Sister(V16.8, Z80.8) Status:Active Family history of multiple m yeloma: Child(V16.7, Z80.7) Status:Active Family history of malignant neoplasm of female genital organ: Child(V16.49, Z80.49) Status:Active Family history of pancreatic cancer: Mother(V16.0, Z80.0) Status:Active Unknown Family Member Name Dates Details Family history of myocardial infarction: Father, Brother(V17.3, Z82.49) Status:Active Family history of cerebrovas cular accident (CVA): Father, Brother, Sister(V17.1, Z82.3) Status:Active Family history of coronary a rtery disease: Brother, Sister(V17.3, Z82.49) Status:Active Family history of metastatic neoplastic disease: Brother(V16.9, Z80.9) Status:Active Family history of lung cance r: Brother(V16.1, Z80.1) Status:Active Family history of malignant melanoma: Sister(V16.8, Z80.8) Status:Active Family history of malignant neoplasm of colon: Sister(V16.0, Z80.0) Status:Active Family history of malignant neoplasm of uterus: Sister(V16.49, Z80.49) Status:Active Family history of malignant neoplasm of brain: Sister(V16.8, Z80.8) Status:Active Family history of multiple m yeloma: Child(V16.7, Z80.7) Status:Active Family history of malignant neoplasm of female genital organ: Child(V16.49, Z80.49) Status:Active Family history of pancreatic cancer: Mother(V16.0, Z80.0) Status:Active Unknown Family Member Name Dates Details Family history of pancreatic cancer: Mother(V16.0, Z80.0) Status:Active Family history of malignant neoplasm of female genital organ: Child(V16.49, Z80.49) Status:Active Family history of multiple m yeloma: Child(V16.7, Z80.7) Status:Active Family history of malignant neoplasm of brain: Sister(V16.8, Z80.8) Status:Active Family history of malignant neoplasm of uterus: Sister(V16.49, Z80.49) Status:Active Family history of malignant neoplasm of colon: Sister(V16.0, Z80.0) Status:Active Family history of malignant melanoma: Sister(V16.8, Z80.8) Status:Active Family history of lung cance r: Brother(V16.1, Z80.1) Status:Active Family history of metastatic neoplastic disease: Brother(V16.9, Z80.9) Status:Active Family history of coronary a rtery disease: Brother, Sister(V17.3, Z82.49) Status:Active Family history of cerebrovas cular accident (CVA): Father, Brother, Sister(V17.1, Z82.3) Status:Active Family history of myocardial infarction: Father, Brother(V17.3, Z82.49) Status:Active Unknown Family Member Name Dates Details Family history of myocardial infarction: Father, Brother(V17.3, Z82.49) Status:Active Family history of cerebrovas cular accident (CVA): Father, Brother, Sister(V17.1, Z82.3) Status:Active Family history of coronary a rtery disease: Brother, Sister(V17.3, Z82.49) Status:Active Family history of metastatic neoplastic disease: Brother(V16.9, Z80.9) Status:Active Family history of lung cance r: Brother(V16.1, Z80.1) Status:Active Family history of malignant melanoma: Sister(V16.8, Z80.8) Status:Active Family history of malignant neoplasm of colon: Sister(V16.0, Z80.0) Status:Active Family history of malignant neoplasm of uterus: Sister(V16.49, Z80.49) Status:Active Family history of malignant neoplasm of brain: Sister(V16.8, Z80.8) Status:Active Family history of multiple m yeloma: Child(V16.7, Z80.7) Status:Active Family history of malignant neoplasm of female genital organ: Child(V16.49, Z80.49) Status:Active Family history of pancreatic cancer: Mother(V16.0, Z80.0) Status:Active Unknown Family Member Name Dates Details Family history of myocardial infarction: Father, Brother(V17.3, Z82.49) Status:Active Family history of cerebrovas cular accident (CVA): Father, Brother, Sister(V17.1, Z82.3) Status:Active Family history of coronary a rtery disease: Brother, Sister(V17.3, Z82.49) Status:Active Family history of metastatic neoplastic disease: Brother(V16.9, Z80.9) Status:Active Family history of lung cance r: Brother(V16.1, Z80.1) Status:Active Family history of malignant melanoma: Sister(V16.8, Z80.8) Status:Active Family history of malignant neoplasm of colon: Sister(V16.0, Z80.0) Status:Active Family history of malignant neoplasm of uterus: Sister(V16.49, Z80.49) Status:Active Family history of malignant neoplasm of brain: Sister(V16.8, Z80.8) Status:Active Family history of multiple m yeloma: Child(V16.7, Z80.7) Status:Active Family history of malignant neoplasm of female genital organ: Child(V16.49, Z80.49) Status:Active Family history of pancreatic cancer: Mother(V16.0, Z80.0) Status:Active Unknown Family Member Name Dates Details Family history of myocardial infarction: Father, Brother(V17.3, Z82.49) Status:Active Family history of cerebrovas cular accident (CVA): Father, Brother, Sister(V17.1, Z82.3) Status:Active Family history of coronary a rtery disease: Brother, Sister(V17.3, Z82.49) Status:Active Family history of metastatic neoplastic disease: Brother(V16.9, Z80.9) Status:Active Family history of lung cance r: Brother(V16.1, Z80.1) Status:Active Family history of malignant melanoma: Sister(V16.8, Z80.8) Status:Active Family history of malignant neoplasm of colon: Sister(V16.0, Z80.0) Status:Active Family history of malignant neoplasm of uterus: Sister(V16.49, Z80.49) Status:Active Family history of malignant neoplasm of brain: Sister(V16.8, Z80.8) Status:Active Family history of multiple m yeloma: Child(V16.7, Z80.7) Status:Active Family history of malignant neoplasm of female genital organ: Child(V16.49, Z80.49) Status:Active Family history of pancreatic cancer: Mother(V16.0, Z80.0) Status:Active Advance Directives No Advanced Directives Records FoundDocuments on File Type Date Recorded Patient Multifocal 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 Expl anation Advance Directives and Living Will Latest Code Status on File Code Status Date Activated Date Inactivated Comments Full Code - Unverified 07/27/2016 6:38 PM 08/11/2016 5: 31 PM Documents on File Type Date Recorded Patient Multifocal 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 Expl anation Advance Directives and Livin g Will 08/01/2019 12:56 PM Documents on File Type Date Recorded Patient Multifocal 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 Expl anation Advance Directives and Livin g Will 08/01/2019 12:56 PM Latest Code Status on File Code Status Date Activated Date Inactivated Comments Full Code - Unverified 07/27/2016 6:38 PM 08/11/2016 5: 31 PM Documents on File Type Date Recorded Patient 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 Expl anation Advance Directives and Livin g Will 10/08/2019 12:56 PM Documents on File Type Date Recorded Patient Multifocal 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 Expl anation Advance Directives and Livin g Will 11/06/2019 12:36 PM Documents on File Type Date Recorded Patient Multifocal 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 Expl anation Advance Directives and Livin g Will 11/06/2019 12:36 PM Documents on File Type Date Recorded Patient Multifocal 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 Expl anation Advance Directives and Livin g Will 11/06/2019 12:36 PM Advance Directives and Livin g Will 11/20/2019 12:00 AM Documents on File Type Date Recorded Patient Multifocal 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 Expl anation Advance Directives and Livin g Will 11/06/2019 12:36 PM Advance Directives and Livin g Will 11/29/2019 11:40 AM Latest Code Status on File Code Status Date Activated Date Inactivated Comments Full Code 11/29/2019 7:32 PM Full Code - Unverified 07/27/2016 6:38 PM 08/11/2016 5: 31 PM Documents on File Type Date Recorded Patient 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 Expl anation Advance Directives and Livin g Will 11/06/2019 12:36 PM Advance Directives and Livin g Will 02/12/2020 7:35 AM Documents on File Type Date Recorded Patient Multifocal 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 Expl anation Advance Directives and Livin g Will 11/06/2019 12:36 PM Advance Directives and Livin g Will 02/12/2020 7:35 AM Latest Code Status on File Code Status Date Activated Date Inactivated Comments Full Code 11/29/2019 7:32 PM Full Code - Unverified 07/27/2016 6:38 PM 08/11/2016 5: 31 PM Documents on File Type Date Recorded Patient 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 Expl anation Advance Directives and Livin g Will 11/06/2019 12:36 PM Advance Directives and Livin g Will 11/29/2019 11:40 AM Documents on File Type Date Recorded Patient Multifocal 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 Expl anation Advance Directives and Livin g Will 10/08/2019 12:56 PM Documents on File Type Date Recorded Patient Multifocal 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 Expl anation Advance Directives and Livin g Will 02/12/2020 7:35 AM Advance Directives and Livin g Will 11/06/2019 12:36 PM Latest Code Status on File Date Activated Date Inactivated Comments 11/29/2019 7:32 PM Full Code - Unverified Date Activated Date Inactivated Comments 07/27/2016 6:38 PM 08/11/2016 5:31 PM Latest Code Status on File Code Status Date Activated Date Inactivated Comments Full Code 11/29/2019 7:32 PM Code Status History Code Status Date Activated Date Inactivated Comments Full Code - Unverified 07/27/2016 6:38 PM 08/11/2016 5: 31 PM Latest Code Status on File Code Status Date Activated Date Inactivated Comments Full Code 11/29/2019 7:32 PM Code Status History Code Status Date Activated Date Inactivated Comments Full Code - Unverified 07/27/2016 6:38 PM 08/11/2016 5: 31 PM Latest Code Status on File Code Status Date Activated Date Inactivated Comments Full Code 11/29/2019 7:32 PM 05/19/2023 6:39 AM Latest Code Status on File Code Status Date Activated Date Inactivated Comments Full Code 11/29/2019 7:32 PM 05/19/2023 6:39 AM Date Activated Date Inactivated Comments 11/29/2019 7:32 PM 05/19/2023 6:39 AM Date Activated Date Inactivated Comments 07/27/2016 6:38 PM 08/11/2016 5:31 PM Date Activated Date Inactivated Comments 11/29/2019 7:32 PM 05/19/2023 6:39 AM Date Activated Date Inactivated Comments 07/27/2016 6:38 PM 08/11/2016 5:31 PM History of Present Illness * Dada Hathaway MD - 09/04/2018 11:36 AM JOSE Marquez comes in today for followup of both shoulders. She just wants shots today. She is not wantingto commit to any surgery at this time. PHYSICAL EXAMINATION General: Today, she is awake, alert and oriented x3. Extremities: Full range of motion the hand, wrist, elbows and shoulders. Positive impingement signsbilaterally. IMPRESSION 1.Bilateral shoulder impingement. 2.Bilateral shoulder tendinitis and bursitis. PLAN Today, under sterile conditions, with patient's consent, we injected 20 mg of Kenalog and 2.5 mL of1% lidocaine without epinephrine into both shoulders. Patient tolerated both procedures well. I will see her on a p.r.n. basis. in this encounter* Dada Hathaway MD - 06/25/2019 11:36 AM ALISSA Marquez comes in today for followup of her bilateral shoulder. She is thinking about in October getting the left shoulder surgery. She wants shots in both shoulders today, but she is also having some back pain. She describes it as a rib pain. She says that her chiropractor puts the rib in place andshe says that it pops out quite frequently. She uses the word pops out and she says that she has a pain specialist and I have recommended that she see him for potential trigger point injection. Today, AP pelvis x-ray, as well as frog-leg view of the right hip shows normal-appearing right hip replacement. Lumbar spine x-ray shows multilevel lumbar degenerative scoliosis. PHYSICAL EXAM She is awake alert x3. Ambulates without assistive device. Full range of motion of the ankles, knees, and hips. At this time, abdomen is obese, soft, nontender. Back is tender in the paraspinals as well as the SI joints. Both upper extremities are neurologically intact. 2+ pulses. She has full range of motion of the hand, wrist, elbows. Bilateral shoulders, 80 degrees of abduction, 100 degrees offorward flexion, severe weakness of both rotator cuffs. IMPRESSION 1.Bilateral shoulder rotator cuff tear arthropathy. 2.Lumbar arthrosis. 3.Status post right hip replacement. PLAN She is going to see her pain specialist for the back and her rib issue. Under sterile conditions,and patient's consent, we injected 20 mg of Kenalog, 2.5 cc of 1% lidocaine without epinephrine into the right and left shoulder. Patient tolerated both procedures well. I will see her back on a p.r.n. basis. documented in this encounter* Debi Lord, MICROFILM CLERK - 08/03/2019 11:30 AM EDT [facility] DAILY TREATMENT NOTE Today's Date 08/03/2019 Patient Name: Alma Echeverria Date of : 1940 Current Visit #: 2 Authorized Visits: 100 Case Name: Therapy Rotator cuff disorder, B History: Pre-Treatment Pain Scale: 2 Symptoms: gradually improved Functional Diagnosis: 1. Rotator cuff disorder, right 2. Rotator cuff disorder, left Clinical Information: Subjective: Reports her shoulders hurt worst when she's trying to sleep at night. Objective Mild pain increase on R with passive flexion. Declines modalities following treatment. Treatments: Physical Therapy Exercise Log - 08/03/19 1203 OTHER Precautions/Contraindications [facility] Notes Debi 11:28-12:03 Therapeutic Exercise (53256) Intervention SH isometerics (A) Parameters supine SH ABCs (A) Intervention Scapular retractions x20 Parameters SH Rows/ext (A) Intervention UEB 4' lv 1 Parameters cane press ups x20 Manual Therapy (07960) Intervention STM BLE bicep tendon and UT 10' Parameters PROM x10 each plane PT Treatment Times Therex Total Time 20 Manual Therapy Total Time 15 Direct Treatment Time 35 Total Treatment Time 35 Progress towards goals as expected. Plan for Next Visit: Treatment Visit with focus on ROM and strength Debi Lord PTA STATE LICENSE, [id number] documented in this encounter* Sadaf Cardenas, PT - 08/28/2019 9:15 AM EST [facility] DAILY TREATMENT NOTE Today's Date 08/28/2019 Patient Name: Alma Echeverria Date of : 1940 Current Visit #: 7 Authorized Visits: 100 Case Name: Therapy Rotator cuff disorder, B History: Pre-Treatment Pain Scale: 3 Symptoms: stabilized Functional Diagnosis: 1. Rotator cuff disorder, right 2. Rotator cuff disorder, left Clinical Information: Subjective: Patient states her R shoulder was a 12/10 pain over the weekend and 8/10 in the L shoulder. Patient states it's past the time when she needs surgery. Objective: focused on SH strength Treatments: Physical Therapy Exercise Log - 08/28/19 0903 OTHER Precautions/Contraindications [facility] Notes 1:45- 2:25 7/12 Vitals Elisha Therapeutic Exercise (13911) Parameters supine SH ABCs BLE Intervention Scapular retractions x20 Intervention UEB 6' lv 1 Parameters Standing SH ER 2x10 GTT Intervention Standing SH Ext 2x10 GTT Parameters Standing SH IR 2x10 B Manual Therapy (26933) Intervention STM BLE bicep tendon, UT, and ES 20' Parameters PROM x10 each plane PT Treatment Times Therex Total Time 14 Manual Therapy Total Time 26 Direct Treatment Time 40 Total Treatment Time 40 Goals: Physical Therapy Ortho Goals: 1. Patient reports their primary goal is to be able to make her shoulders well so she has her mobility back. 2. Patient will safely, correctly, and independently demonstrate the ability to perform a progressive HEP to achieve maximal rehabilitation potential and prevent this condition from recurring. 3. Patient will demonstrate a 10 degree increase in SH IR in order to be able to put on her jacket. 4. Patient will demonstrate a 10 degree increase in SH Flexion/ABD in order to be able to reach hercupboard shelves. 5. Patient will demonstrate 4+/5 SH flexion/ABD strength in order to be able to be able to put items away. IE date: 08/01/2019 Progress report due: 08/13/19 Recert due: visit # 12 Assessment: Patient demonstrates increased facilitation of B UT/cervical ES/ L bicep tendon that iscontributing to her shoulder pain. Patient demonstrates increased SH fatigue during SH band exercises that are contributing to her decreased strength with ADLs. Plan for Next Visit: Treatment Visit with focus on increasing SH mobilizaion and strength. Sadaf Cardenas PT State License, [id number] documented in this encounter* Debi Lord, MICROFILM CLERK - 09/11/2019 9:15 AM EST [facility] DAILY TREATMENT NOTE Today's Date 09/11/2019 Patient Name: Alma Echeverria Date of : 1940 Current Visit #: 9 Authorized Visits: 100 Case Name: Therapy Rotator cuff disorder, B History: Pre-Treatment Pain Scale: 3 Symptoms: gradually improved Functional Diagnosis: 1. Rotator cuff disorder, right 2. Rotator cuff disorder, left Clinical Information: Subjective: her shoulders are a dull ache today d/t the cold damp weather. Objective PROM flexion 160 degrees BLE ER 50 degrees BLE. Treatments: Physical Therapy Exercise Log - 09/11/19 1054 OTHER Precautions/Contraindications [facility] Notes 9:15-10:00 06/21 Dejon Carrera Therapeutic Exercise (96313) Parameters supine SH ABCs BLE Intervention Scapular retractions x20 Parameters Supine SH flexion L 1#x10 R D/C Intervention UEB 6' lv 1 Parameters Standing SH ER x25 GTT Intervention Standing SH Ext x25 GTT Parameters Standing SH IR x25 B Intervention Standing SH row x25 GTT B Manual Therapy (05252) Intervention STM BLE bicep tendon, UT, and ES 15' Parameters PROM x10 each plane PT Treatment Times Therex Total Time 25 Manual Therapy Total Time 15 Direct Treatment Time 40 Total Treatment Time 40 Skilled Intervention demonstrated by modifications of treatment per exercise log including increased intensity and safety interventions per exercise log. Progress towards goals as expected. Plan for Next Visit: Treatment Visit with focus on ROM Debi Lord PTA STATE LICENSE, [id number] documented in this encounter* Alexandro Street PTA - 09/17/2019 1:45 PM EST [facility] DAILY TREATMENT NOTE Today's Date 09/17/2019 Patient Name: Alma Echeverria Date of : 1940 Current Visit #: 10 Authorized Visits: 100 Case Name: Therapy Rotator cuff disorder, B History: Pre-Treatment Pain Scale: 5 Symptoms: stabilized Functional Diagnosis: 1. Rotator cuff disorder, right 2. Rotator cuff disorder, left Clinical Information: Subjective: Pt reports min sx's early AM but it usually intensifies as the day goes on Objective Increased resistance with bands to progress UE strength Treatments: Physical Therapy Exercise Log - 09/17/19 1350 OTHER Precautions/Contraindications [facility] [employer] Notes [id number] 07/21 Therapeutic Exercise (54691) Parameters supine SH ABCs BLE Intervention Scapular retractions x20 Parameters Supine SH flexion L 1#x10 R D/C Intervention UEB 6' lv 1 Parameters Standing SH ER x25 SURESH Intervention Standing SH Ext x25 SURESH Parameters Standing SH IR x25 B Intervention Standing SH row x25 SURESH B Manual Therapy (18320) Intervention STM BLE bicep tendon, UT, and ES 15' Parameters PROM x10 each plane PT Treatment Times Therex Total Time 30 Direct Treatment Time 30 Total Treatment Time 38 Goals: Physical Therapy Ortho Goals: 1. Patient reports their primary goal is to be able to make her shoulders well so she has her mobility back. 2. Patient will safely, correctly, and independently demonstrate the ability to perform a progressive HEP to achieve maximal rehabilitation potential and prevent this condition from recurring. 3. Patient will demonstrate a 10 degree increase in SH IR in order to be able to put on her jacket. 4. Patient will demonstrate a 10 degree increase in SH Flexion/ABD in order to be able to reach hercupboard shelves. 5. Patient will demonstrate 4+/5 SH flexion/ABD strength in order to be able to be able to put items away. IE date: 08/01/2019 Progress report due: 08/13/19 Recert due: visit # 12 Patient Education: Verbal HEP with patient verbalized understanding. Post-Treatment Pain Scale: 5 Assessment: Patient had an expected response to treatment. Pt is unable to to perform ABC's B d/t to increased pain Skilled Intervention demonstrated by modifications of treatment per exercise log including increased mobility and assessment of patient's response and safety interventions per exercise log. Progress towards goals as expected. Plan for Next Visit: Treatment Visit with focus on progress as tolerated and increase strength Alexandro Street PTA STATE LICENSE, [id number] documented in this encounter* Alexandro Street PTA - 09/19/2019 3:15 PM EST [facility] DAILY TREATMENT NOTE Today's Date 09/19/2019 Patient Name: Alma Echeverria Date of : 1940 Current Visit #: 11 Authorized Visits: 100 Case Name: Therapy Rotator cuff disorder, B History: Pre-Treatment Pain Scale: 9 Symptoms: stabilized Functional Diagnosis: 1. Rotator cuff disorder, right 2. Rotator cuff disorder, left Clinical Information: Subjective: Pt reports she has a lot of pain today, she woke up with a high level of pain Objective Held ex's today and focused on STM and ROM for pain management MHP applied for supine stretches Treatments: Physical Therapy Exercise Log - 09/19/19 1515 OTHER Precautions/Contraindications [facility] Notes 08/21 [id number] Therapeutic Exercise ([id number]) Parameters supine SH ABCs BLE Intervention Scapular retractions x20 Parameters Supine SH flexion L 1#x10 R D/C Intervention UEB 6' lv 1 Parameters Standing SH ER x25 SURESH Intervention Standing SH Ext x25 SURESH Parameters Standing SH IR x25 B Intervention Standing SH row x25 SURESH B Manual Therapy (66591) Intervention STM BLE bicep tendon, UT, and ES 15' Parameters PROM x10 each plane PT Treatment Times Manual Therapy Total Time 25 Modalities Total Time 10 Direct Treatment Time 35 Total Treatment Time 35 Goals: Physical Therapy Ortho Goals: 1. Patient reports their primary goal is to be able to make her shoulders well so she has her mobility back. 2. Patient will safely, correctly, and independently demonstrate the ability to perform a progressive HEP to achieve maximal rehabilitation potential and prevent this condition from recurring. 3. Patient will demonstrate a 10 degree increase in SH IR in order to be able to put on her jacket. 4. Patient will demonstrate a 10 degree increase in SH Flexion/ABD in order to be able to reach hercupboard shelves. 5. Patient will demonstrate 4+/5 SH flexion/ABD strength in order to be able to be able to put items away. IE date: 08/01/2019 Progress report due: 08/13/19 Recert due: visit # 12 Patient Education: Verbal HEP with patient verbalized understanding. Post-Treatment Pain Scale: 9 Assessment: Patient had an expected response to treatment. Pt had a very high level of pain today and was unable to replicate functional levels from before 2 Skilled Intervention demonstrated by modifications of treatment per exercise log including increased volume and assessment of patient's response and safety interventions per exercise log. Progress towards goals as expected. Plan for Next Visit: Treatment Visit with focus on pain control and increase function [address]ro Street PTA STATE LICENSE, [id number] documented in this encounter* Theresa Sadaf, PT - 09/26/2019 11:30 AM EST [facility] DAILY TREATMENT NOTE Today's Date 09/26/2019 Patient Name: Alma Echeverria Date of : 1940 Current Visit #: 12 Authorized Visits: 100 Case Name: Therapy Rotator cuff disorder, B History: Pre-Treatment Pain Scale: 3 Symptoms: stabilized Functional Diagnosis: 1. Rotator cuff disorder, right 2. Rotator cuff disorder, left Clinical Information: Subjective: Patient states her shoulder continues to be sore, but she is ready for her surgery. Patient states she understands what exercises she needs to continue between now and when she has surgery. Patient states she will call Dr. Hathaway's office in order to schedule surgery. Objective SH Flexion: R:138 L: 162 SH ABD: R:103 L:112 SH ER: R:36 L:36 FOTO:47 Treatments: Physical Therapy Exercise Log - 09/26/19 1248 OTHER Precautions/Contraindications [facility] Notes 09/20 11:30-12:10 Therapeutic Exercise (28765) Intervention PT re-assessment and objective mesurement 12' Parameters Standing SH ER x25 SURESH Intervention Standing SH Ext x25 SURESH Parameters Standing SH IR x25 B Intervention Standing SH row x25 SURESH B Manual Therapy (75859) Intervention STM BLE bicep tendon, UT, and ES 15' Parameters PROM each plane PT Treatment Times Therex Total Time 20 Manual Therapy Total Time 15 Direct Treatment Time 35 Total Treatment Time 40 Goals: Physical Therapy Ortho Goals: 1. Patient reports their primary goal is to be able to make her shoulders well so she has her mobility back. 2. Patient will safely, correctly, and independently demonstrate the ability to perform a progressive HEP to achieve maximal rehabilitation potential and prevent this condition from recurring. 3. Patient will demonstrate a 10 degree increase in SH IR in order to be able to put on her jacket. 4. Patient will demonstrate a 10 degree increase in SH Flexion/ABD in order to be able to reach hercupboard shelves. 5. Patient will demonstrate 4+/5 SH flexion/ABD strength in order to be able to be able to put items away. IE date: 08/01/2019 Progress report due: 08/13/19 Recert due: visit # 12 Plan for Next Visit: Discharge Sadaf Cardenas PT State License, [id number] documented in this encounter* Wang Borges MD - 11/14/2019 12:08 PM EST Interventional [facility]iology Clinic Follow-up Heart & Vascular [facility] 11/14/2019 Wang Borges MD [address] [place] [address] Patient: Alma Echeverria Date of : 1940 (78 y.o.) PCP: Sancho Woodruff MD Assessment & Plan Atrial fibrillation (HCC) History of paroxysmal atrial fibrillation, rare symptoms, currently taking Cardizem CD 240 mg daily, Pradaxa 150 mg twice daily. She does not feel her symptoms are significant to warrant a medicationchange. Continue current regimen given elevated cardioembolic risk. She will be able to hold Pradaxa without a Lovenox bridge as she has never had a documented neurologic event. HTN (hypertension) Blood pressure is well controlled on Cardizem CD 240 mg daily, Lasix 40 mg as needed, no changes Preop cardiovascular exam Her functional capacity is reduced. She has risk factors for coronary disease including age, hypertension and a family history of coronary artery disease. Her last stress test was in 2012. I will order a Lexiscan for risk stratification. Follow-up: Return in about 1 year (around 11/14/2020). Chief Complaint: Pre-op Exam (Shoulder surgery) Subjective History of Present Illness: Alma Echeverria is a 78 y.o. female who comes in today for preoperative or stratification for shoulder surgery with Dr. Hathaway in the near future. She is a pleasant 78-year-old female known to . She has not seen him since 2014. She has a history of paroxysmal atrial fibrillation. She comes in today stating that overall, she feels reasonably well. She admits that she is not very active. She cannot do any lifting due to her rotator cuff issues. She does do some chores around the house. She also rides a stationary bicycle for 7 minutes at a low to medium intensity. She does not feel she gets her heart rate up very high. In terms of her atrial fibrillation, sometimes she is aware of it. She sometimes feels faint, lightheaded, nauseated or short of breath whenever she is having some atrial fibrillation. She states matilda has these issues. She has done well on her current regimen. Past history includes nonalcoholic liver cirrhosis, numerous surgeries including exploratory laparotomy with lysis of adhesions, cholecystectomy, appendectomy, multiple orthopedic surgeries. Family history includes a brother had heart failure, valve disease and required bypass. She had another sister that required bypass. She had a brother had a myocardial infarction at the age of 52. Objective Imaging: I independently reviewed the EKG and agree with the interpretation(s) with the following comments. Normal sinus rhythm with PACs. ECG 12 Lead Final Result by Interface, Lab Results In [facility] (11/07/2019 0802) Echocardiogram complete Final Result by Haroon Quintanilla MD (07/29/2016 1048) Review of Systems: The following system(s) were reviewed and negative. Pertinent positive and negative findings are noted in the HPI. [x] Const [x] Eyes [x] ENT [x] Resp [] CV [x] GI [x] [x] Neuro [x] Musc [x] Skin [x] Psych [x] Endo [x] Allergy [x] Heme/Lymph HOME Medications: Current Outpatient Medications on File Prior to Visit Medication Sig AMITIZA 8 mcg capsule amoxicillin (AMOXIL) 500 MG capsule aspirin 81 MG EC tablet Take 81 mg by mouth daily . dabigatran (PRADAXA) 150 mg capsule Take 150 mg by mouth 2 (two) times a day. dexlansoprazole (DEXILANT) 30 mg capsule Take 30 mg by mouth daily. diltiazem (CARDIZEM CD) 240 MG 24 hr capsule Take by mouth daily. furosemide (LASIX) 40 MG tablet Take 40 mg by mouth daily as needed . HYDROcodone-acetaminophen (NORCO) 5-325 mg per tablet Take 1 tablet by mouth every 8 (eight) hours as needed . polyethylene glycol (MIRALAX) 17 gram powder Take 17 g by mouth daily. HYDROcodone-acetaminophen 2.5-325 mg Tab nitrofurantoin, macrocrystal-monohydrate, (MACROBID) 100 MG capsule Take 100 mg by mouth . traMADol (ULTRAM) 50 mg tablet No current facility-administered medications on file prior to visit. Vital Signs: BP 131/82 Pulse 73 Ht 4' 10 Wt 75.5 kg (166 lb 8 oz) SpO2 96% BMI 34.80 kg/m Physical Exam Constitutional: She is oriented to person, place, and time. She appears well- developed and well-nourished. HENT: Head: Normocephalic and atraumatic. Nose: Nose normal. Mouth/Throat: Oropharynx is clear and moist. Eyes: Pupils are equal, round, and reactive to light. Conjunctivae and EOM are normal. Neck: Carotid bruit is not present. Cardiovascular: Normal rate, regular rhythm, S1 normal, S2 normal and normal pulses. Occasional extrasystoles are present. Murmur heard. Systolic murmur is present with a grade of 1/6. No cyanosis, clubbing; trace edema Pulmonary/Chest: Effort normal and breath sounds normal. Abdominal: Soft. She exhibits no distension. There is no abdominal tenderness. There is no guarding. Musculoskeletal: Normal range of motion. Neurological: She is alert and oriented to person, place, and time. Skin: Skin is warm and dry. Psychiatric: She has a normal mood and affect. Her behavior is normal. Judgment and thought contentnormal. Labs: I personally reviewed and interpreted the labs documented below. Lab Results Component Value Date TRIG 76 08/09/2016 Serum creatinine: 0.66 mg/dL 11/06/19 1240 Estimated creatinine clearance: 53.1 mL/min * Dariela Santillan RN - 11/14/2019 11:30 AM EST Review of Systems Constitution: Positive for malaise/fatigue and weight loss. Negative for weight gain. HENT: Negative for hearing loss, nosebleeds and tinnitus. Eyes: Negative for blurred vision and visual disturbance. Cardiovascular: Positive for irregular heartbeat, leg swelling and orthopnea. Negative for chest pain, claudication, cyanosis, dyspnea on exertion, near- syncope, palpitations and syncope. Respiratory: Negative for hemoptysis, shortness of breath and snoring. Endocrine: Negative for cold intolerance and heat intolerance. Hematologic/Lymphatic: Bruises/bleeds easily. Skin: Negative for flushing, poor wound healing and rash. Musculoskeletal: Positive for back pain, muscle weakness and myalgias. Gastrointestinal: Negative for abdominal pain, change in bowel habit, melena, nausea and vomiting. Genitourinary: Negative for decreased libido and hematuria. Neurological: Negative for loss of balance and numbness. Psychiatric/Behavioral: Negative for memory loss. The patient is not nervous/anxious. documented in this encounter* Dada Hathaway MD - 11/30/2019 12:05 PM EST Orthopedic Total Shoulder Progress Note Assessment/Plan: Status Post right Total Shoulder Arthroplasty: Doing well postoperatively. Discharge today, Return to Clinic: 2 weeks LOS: 1 day Subjective: Post-Operative Day: 1 Status Post right Total Shoulder Arthroplasty Systemic or Specific Complaints:No Complaints Objective: Vital signs in last 24 hours: Temp: [97.1 F (36.2 C)-97.6 F (36.4 C)] 97.4 F (36.3 C) Heart Rate: [52-67] 61 Resp: [12-20] 14 BP: (102-136)/(47-76) 127/70 General: alert, appears stated age and cooperative Wound: Wound clean and dry no evidence of infection. Motion: Extension: Full Extension DVT Exam: No evidence of DVT seen on physical exam. Data Review CBC: Lab Results Component Value Date WBC 8.12 11/06/2019 RBC 4.45 11/06/2019 HGB 12.9 11/30/2019 HCT 38.5 11/30/2019 PLT 194 11/06/2019 documented in this encounter* Christine Voss CNP - 02/22/2020 10:08 AM EDT Associated Order(s): LG Jt Injection/Arthrocentesis: L glenohumeral Post-Procedure Diagnose(s): Rotator cuff disorder, left LG Jt Injection/Arthrocentesis: L glenohumeral Performed by: Christine Voss CNP Authorized by: Christine Voss CNP CPT 08350 - Large Joint Arthrocentesis: Consent given by: Patient Time out: Immediately prior to the procedure a time out was called Physician or proceduralist has discussed critical or nonroutine steps, procedure duration and anticipated blood loss: Yes Supporting Documentation: Indications: Pain and diagnostic evaluation Procedure Details: Location: Shoulder Site: L glenohumeral Prep: patient was prepped and draped in usual sterile fashion Needle size: 22 G Approach: Posterior Medications: 40 mg triamcinolone acetonide 40 mg/mL Anesthetic used: Lidocaine 1% Anesthetic amount (mL): 2 Patient tolerance: Patient tolerated the procedure well with no immediate complications * Christine Voss CNP - 02/20/2020 1:53 PM EDT Alma [place] 1940 CC: 79 y.o. is a she with Chief Complaint Patient presents with Left Shoulder - Pain . HPI: Shoulder Pain: Patient presents today with left shoulder pain. She has seen Dr. Hathaway in the past for injections and would like another one today. She is status post right reverse total shoulder replacement and states that she is doing wonderful after the surgery. She isn't ready to discusssurgery on the left shoulder so she would like to continue the injections at this time. PMH: Allergies Allergen Reactions Codeine Other (See Comments) skin crawling Other reaction(s): Other (See Comments) skin crawling Nausea Flexeril [Cyclobenzaprine] AND OTHER MUSCLE RELAXERS Ibuprofen Other (See Comments) and GI Intolerance Upset stomach Other reaction(s): Nausea Only Other reaction(s): Other (See Comments) Upset stomach Latex Nylon Adhesive Tape-Silicones Rash Current Outpatient Medications: AMITIZA 8 mcg capsule, Take 8 mcg by mouth 2 (two) times a day with meals ., Disp: , Rfl: amoxicillin (AMOXIL) 500 MG capsule, , Disp: , Rfl: dabigatran (PRADAXA) 75 mg capsule, Take 75 mg by mouth 2 (two) times a day ., Disp: , Rfl: dexlansoprazole (DEXILANT) 30 mg capsule, Take 30 mg by mouth daily., Disp: , Rfl: diltiazem (CARDIZEM CD) 240 MG 24 hr capsule, Take by mouth daily., Disp: , Rfl: furosemide (LASIX) 40 MG tablet, Take 40 mg by mouth daily as needed ., Disp: , Rfl: nitrofurantoin, macrocrystal-monohydrate, (MACROBID) 100 MG capsule, Take 100 mg by mouth ., Disp: , Rfl: polyethylene glycol (MIRALAX) 17 gram powder, Take 17 g by mouth daily., Disp: , Rfl: traMADoL (ULTRAM) 50 mg tablet, , Disp: , Rfl: pantoprazole (PROTONIX) 20 MG tablet, Take 1 (one) tablet (20 mg total) by mouth daily Start: 12/01/19., Disp: 30 tablet, Rfl: 0 Past Medical History: Diagnosis Date Abdominal pain Arm numbness Arm weakness Arthritis Atrial fibrillation (HCC) Hanley esophagus Endometrial cancer (HCC) 1970 uterine ca Frequent UTI History of blood transfusion HLD (hyperlipidemia) Hypertension Leg numbness Leg weakness Liver cirrhosis secondary to nonalcoholic steatohepatitis (MATTHEW) (HCC) Squamous cell skin cancer Uterine mass Reportedly benign Past Surgical History: Procedure Laterality Date APPENDECTOMY ARTHROPLASTY SHOULDER REVERSE Right 11/29/2019 Procedure: Reverse right total shoulder replacement; Surgeon: Dada Hathaway MD; Location: Main OR; Service: Orthopedic CATARACTS CHOLECYSTECTOMY EXPLORATORY LAPAROTOMY N/A 07/29/2016 Procedure: EXPLORATORY LAPAROTOMY LYSIS OF ADHESION ; Surgeon: Smooth Sarabia MD; Location: [facility] Main OR; Service: FOOT FUSION FOOT SURGERY GALLBLADDER HIP REPLACEMENT RIGHT RIGHT HYSTERECTOMY KNEE REPLACEMENT BILATERAL BILATERAL OOPHORECTOMY RADIATION uterine ca TONSILLECTOMY TOTAL HIP ARTHROPLASTY Right TOTAL KNEE ARTHROPLASTY Bilateral TUMOR EXCISION NEAR OVARIES VEIN LIGATION Social History Socioeconomic History Marital status: Spouse name: Not on file Number of children: Not on file Years of education: Not on file Highest education level: Not on file Occupational History Not on file Social Needs Financial resource strain: Patient refused Food insecurity Worry: Patient refused Inability: Patient refused Transportation needs Medical: Patient refused Non-medical: Patient refused Tobacco Use Smoking status: Never Smoker Smokeless tobacco: Never Used Substance and Sexual Activity Alcohol use: Yes Comment: once every 5-6 weeks Drug use: No Sexual activity: Not on file Lifestyle Physical activity Days per week: 2 days Minutes per session: 20 min Stress: Only a little Relationships Social connections Talks on phone: Not on file Gets together: Not on file Attends denominational service: Not on file Active member of club or organization: Not on file Attends meetings of clubs or organizations: Not on file Relationship status: Not on file Other Topics Concern Not on file Social History Narrative Not on file The patient's past medical history, surgical history, social history, family history, medications and allergies were reviewed with the patient today and are available in the chart for further review. ROS: Review of Systems Constitutional: Negative for activity change and fatigue. HENT: Negative for congestion, hearing loss and trouble swallowing. Eyes: Negative for visual disturbance. Respiratory: Negative for chest tightness and shortness of breath. Cardiovascular: Negative for chest pain and palpitations. Gastrointestinal: Negative for abdominal pain, diarrhea, nausea and vomiting. Endocrine: Negative for polydipsia, polyphagia and polyuria. Genitourinary: Negative for decreased urine volume, difficulty urinating and hematuria. Musculoskeletal: Positive for arthralgias. Negative for joint swelling and myalgias. Skin: Negative for color change, rash and wound. Allergic/Immunologic: Negative for immunocompromised state. Neurological: Negative for dizziness, weakness, light-headedness and numbness. Hematological: Does not bruise/bleed easily. Psychiatric/Behavioral: Negative for confusion and sleep disturbance. The patient is not nervous/anxious. PE: Physical Exam Constitutional: She is oriented to person, place, and time. She appears well- developed and well-nourished. HENT: Head: Normocephalic. Eyes: Pupils are equal, round, and reactive to light. Neck: Normal range of motion. Neck supple. Cardiovascular: Normal rate and regular rhythm. Pulmonary/Chest: Effort normal and breath sounds normal. Abdominal: Soft. Bowel sounds are normal. Musculoskeletal: General: Tenderness present. Left shoulder: She exhibits decreased range of motion, tenderness, pain and decreased strength. Neurological: She is alert and oriented to person, place, and time. Skin: Skin is warm and dry. Imaging:No new imaging Assessment/Plan: After examination and discussion, I injected the left shoulder per patient request. The patient was informed that she could receive theses every 3 months as needed. I will be happy to see her as needed. Diagnosis: Problem List Items Addressed This Visit Musculoskeletal and Integument Rotator cuff disorder, left - Primary Follow Up: No follow-ups on file. Christine Voss CNP documented in this encounter* Dada Hathaway MD - 12/17/2019 3:27 PM EDT Alma comes in today for 2-week followup of her right reverse total shoulder replacement. Doing well. She is with her . Wound is healed. No signs of infection. [place] are removed. No DVT signs in the right upper extremity. 80 degrees of abduction, 90 degrees of forward flexion. X-RAYS No x-rays were obtained. IMPRESSION Two weeks status post right reverse shoulder replacement. PLAN She will do local wound care, home exercises, and she will discontinue the aspirin, and she will resume her Pradaxa as she was on prior to surgery. She takes the Pradaxa twice daily. I will see her in 4 weeks for x-ray. documented in this encounter* Dada Hathaway MD - 01/14/2020 2:54 PM EDT Dictation on: 01/14/2020 2:55 PM by: DADA HATHAWAY [[id number]] documented in this encounter* Christine Voss CNP - 05/22/2020 5:16 PM EDT Associated Order(s): LG Jt Injection/Arthrocentesis: L glenohumeral Post-Procedure Diagnose(s): Rotator cuff disorder, left LG Jt Injection/Arthrocentesis: L glenohumeral Performed by: Christine Voss CNP Authorized by: Christine Voss CNP CPT 60261 - Large Joint Arthrocentesis: Consent given by: Patient Time out: Immediately prior to the procedure a time out was called Physician or proceduralist has discussed critical or nonroutine steps, procedure duration and anticipated blood loss: Yes Supporting Documentation: Indications: Pain and diagnostic evaluation Procedure Details: Location: Shoulder Site: L glenohumeral Prep: patient was prepped and draped in usual sterile fashion Needle size: 22 G Approach: Posterior Medications: 40 mg triamcinolone acetonide 40 mg/mL Anesthetic used: Lidocaine 1% Anesthetic amount (mL): 2 Patient tolerance: Patient tolerated the procedure well with no immediate complications * Christine Voss CNP - 05/22/2020 5:11 PM EDT [facility] [address] [facility] [address] [facility] [id number] Chief Complaint Patient presents with Injections Alma Echeverria returns to the office today for an injection to her left shoulder. She states that the shoulder is doing Ok. She is still happy with getting injections and isn't quite ready for surgery. She had her right shoulder replaced this past winter and doesn't feel as though she has worked it enough. She is interested in having physical therapy on the right shoulder. The patient's past medical history, surgical history, social history, family history, medications and allergies were reviewed with the patient today and are available in the chart for further review. Allergies Allergen Reactions Codeine Other (See Comments) skin crawling Other reaction(s): Other (See Comments) skin crawling Nausea Flexeril [Cyclobenzaprine] AND OTHER MUSCLE RELAXERS Ibuprofen Other (See Comments) and GI Intolerance Upset stomach Other reaction(s): Nausea Only Other reaction(s): Other (See Comments) Upset stomach Latex Lisinopril-Hydrochlorothiazide Nylon Adhesive Tape-Silicones Rash Current Outpatient Medications: AMITIZA 8 mcg capsule, Take 8 mcg by mouth 2 (two) times a day with meals ., Disp: , Rfl: amoxicillin (AMOXIL) 500 MG capsule, , Disp: , Rfl: dabigatran (PRADAXA) 75 mg capsule, Take 75 mg by mouth 2 (two) times a day ., Disp: , Rfl: dexlansoprazole (DEXILANT) 30 mg capsule, Take 30 mg by mouth daily., Disp: , Rfl: diltiazem (CARDIZEM CD) 240 MG 24 hr capsule, Take by mouth daily., Disp: , Rfl: furosemide (LASIX) 40 MG tablet, Take 40 mg by mouth daily as needed ., Disp: , Rfl: nitrofurantoin, macrocrystal-monohydrate, (MACROBID) 100 MG capsule, Take 100 mg by mouth ., Disp: , Rfl: polyethylene glycol (MIRALAX) 17 gram powder, Take 17 g by mouth daily., Disp: , Rfl: traMADoL (ULTRAM) 50 mg tablet, , Disp: , Rfl: pantoprazole (PROTONIX) 20 MG tablet, Take 1 (one) tablet (20 mg total) by mouth daily Start: 12/01/19., Disp: 30 tablet, Rfl: 0 Past Medical History: Diagnosis Date Abdominal pain Arm numbness Arm weakness Arthritis Atrial fibrillation (HCC) Hanley esophagus Endometrial cancer (HCC) 1970 uterine ca Frequent UTI History of blood transfusion HLD (hyperlipidemia) Hypertension Leg numbness Leg weakness Liver cirrhosis secondary to nonalcoholic steatohepatitis (MATTHEW) (HCC) Squamous cell skin cancer Uterine mass Reportedly benign Past Surgical History: Procedure Laterality Date APPENDECTOMY ARTHROPLASTY SHOULDER REVERSE Right 11/29/2019 Procedure: Reverse right total shoulder replacement; Surgeon: Dada Hathaway MD; Location: Main OR; Service: Orthopedic CATARACTS CHOLECYSTECTOMY EXPLORATORY LAPAROTOMY N/A 07/29/2016 Procedure: EXPLORATORY LAPAROTOMY LYSIS OF ADHESION ; Surgeon: Smooth Sarabia MD; Location: [facility] Main OR; Service: FOOT FUSION FOOT SURGERY GALLBLADDER HIP REPLACEMENT RIGHT RIGHT HYSTERECTOMY KNEE REPLACEMENT BILATERAL BILATERAL OOPHORECTOMY RADIATION uterine ca TONSILLECTOMY TOTAL HIP ARTHROPLASTY Right TOTAL KNEE ARTHROPLASTY Bilateral TUMOR EXCISION NEAR OVARIES VEIN LIGATION Social History Socioeconomic History Marital status: Spouse name: Not on file Number of children: Not on file Years of education: Not on file Highest education level: Not on file Occupational History Not on file Social Needs Financial resource strain: Patient refused Food insecurity Worry: Patient refused Inability: Patient refused Transportation needs Medical: Patient refused Non-medical: Patient refused Tobacco Use Smoking status: Never Smoker Smokeless tobacco: Never Used Substance and Sexual Activity Alcohol use: Yes Comment: once every 5-6 weeks Drug use: No Sexual activity: Not on file Lifestyle Physical activity Days per week: 2 days Minutes per session: 20 min Stress: Only a little Relationships Social connections Talks on phone: Not on file Gets together: Not on file Attends denominational service: Not on file Active member of club or organization: Not on file Attends meetings of clubs or organizations: Not on file Relationship status: Not on file Other Topics Concern Not on file Social History Narrative Not on file ROS: Review of Systems Constitutional: Negative for activity change and fatigue. HENT: Negative for congestion, hearing loss and trouble swallowing. Eyes: Negative for visual disturbance. Respiratory: Negative for chest tightness and shortness of breath. Cardiovascular: Negative for chest pain and palpitations. Gastrointestinal: Negative for abdominal pain, diarrhea, nausea and vomiting. Endocrine: Negative for polydipsia, polyphagia and polyuria. Genitourinary: Negative for decreased urine volume, difficulty urinating and hematuria. Musculoskeletal: Positive for arthralgias. Negative for joint swelling and myalgias. Skin: Negative for color change, rash and wound. Allergic/Immunologic: Negative for immunocompromised state. Neurological: Negative for dizziness, weakness, light-headedness and numbness. Hematological: Does not bruise/bleed easily. Psychiatric/Behavioral: Negative for confusion and sleep disturbance. The patient is not nervous/anxious. PE: Physical Exam Constitutional: She is oriented to person, place, and time. She appears well- developed and well-nourished. HENT: Head: Normocephalic. Eyes: Pupils are equal, round, and reactive to light. Neck: Normal range of motion. Neck supple. Cardiovascular: Normal rate and regular rhythm. Pulmonary/Chest: Effort normal and breath sounds normal. Abdominal: Soft. Bowel sounds are normal. Musculoskeletal: General: Tenderness present. Left shoulder: She exhibits decreased range of motion, pain and decreased strength. Neurological: She is alert and oriented to person, place, and time. Skin: Skin is warm and dry. Imaging: L Shoulder No acute osseous abnormality. Mild degenerative changes of the acromioclavicular and glenohumeral joints. Assessment/Plan: After exam and discussion, I injected the patient left shoulder per patient request. I did this without complications and she tolerated this well. I am sending her for some physical therapy on both shoulders for strengthening. I will happy to see her back as needed. documented in this encounter* Wang Borges MD - 11/19/2020 10:52 AM EST Interventional Cardiology Clinic Follow-up Heart & Vascular [facility] 11/19/2020 Wang Borges MD [address] [place] [address] Patient: Alma Echeverria Date of : 1940 (79 y.o.) PCP: Sancho Woodruff MD Assessment & Plan No problem-specific Assessment & Plan notes found for this encounter. Follow-up: Return in about 6 months (around 05/19/2021) for Physician Visit in [place]. Chief Complaint: Annual Exam (no complaints. meds reviewed- PCP manages refills ) Subjective History of Present Illness: Alma Echeverria is a 79 y.o. female Objective Imaging: I independently reviewed the EKG and agree with the interpretation(s) with the following comments. NSR, rare PVCs ECG 12 Lead Final Result by Wang Borges MD (11/19/2020 1023) Echocardiogram complete Final Result by Haroon Quintanilla MD (07/29/2016 1048) Review of Systems: The following system(s) were reviewed and negative. Pertinent positive and negative findings are noted in the HPI. [x] Const [x] Eyes [x] ENT [x] Resp [] CV [x] GI [x] [x] Neuro [x] Musc [x] Skin [x] Psych [x] Endo [x] Allergy [x] Heme/Lymph HOME Medications: Current Outpatient Medications on File Prior to Visit Medication Sig AMITIZA 8 mcg capsule Take 8 mcg by mouth 2 (two) times a day with meals . cholecalciferol, vitamin D3, 1,000 unit tablet Take 1,000 Units by mouth daily . dabigatran (PRADAXA) 75 mg capsule Take 75 mg by mouth 2 (two) times a day . dexlansoprazole (DEXILANT) 30 mg capsule Take 30 mg by mouth daily. diltiazem (CARDIZEM CD) 240 MG 24 hr capsule Take 240 mg by mouth daily . multivitamin with minerals tablet Take 1 tablet by mouth daily . omega-3 fatty acids/fish oil (fish oil-omega-3 fatty acids) 300-1,000 mg capsule Take 2 g by mouth daily . polyethylene glycol (MIRALAX) 17 gram powder Take 17 g by mouth daily. traMADoL (ULTRAM) 50 mg tablet Take 50 mg by mouth 2 (two) times a day as needed . furosemide (LASIX) 40 MG tablet Take 40 mg by mouth daily as needed . pantoprazole (PROTONIX) 20 MG tablet Take 1 (one) tablet (20 mg total) by mouth daily Start: 12/01/19. (Patient not taking: Reported on 11/19/2020 .) sulfamethoxazole-trimethoprim (BACTRIM DS,SEPTRA DS) 800-160 mg per tablet Take 1 tablet by mouth 2(two) times a day as needed Reasons: celluitis. [DISCONTINUED] amoxicillin (AMOXIL) 500 MG capsule Take 500 mg by mouth . [DISCONTINUED] nitrofurantoin, macrocrystal-monohydrate, (MACROBID) 100 MG capsule Take 100 mg by mouth . No current facility-administered medications on file prior to visit. Vital Signs: BP 136/77 (BP Location: Left arm, Patient Position: Sitting) Pulse 77 Ht 4' 10 Wt 71.7 kg (158 lb) SpO2 98% BMI 33.02 kg/m Physical Exam Constitutional: She is oriented to person, place, and time. She appears well- developed and well-nourished. Non-toxic appearance. She does not have a sickly appearance. HENT: Head: Normocephalic and atraumatic. Right Ear: Hearing and external ear normal. Left Ear: Hearing and external ear normal. Nose: Nose normal. Eyes: Pupils are equal, round, and reactive to light. Conjunctivae, EOM and lids are normal. Neck: Normal range of motion. Carotid bruit is not present. Cardiovascular: Normal rate, regular rhythm, S1 normal, S2 normal, normal heart sounds and normal pulses. No cyanosis, clubbing or edema Pulmonary/Chest: Effort normal and breath sounds normal. Abdominal: Normal appearance. Musculoskeletal: Normal range of motion. Neurological: She is alert and oriented to person, place, and time. Skin: Skin is warm and dry. Psychiatric: She has a normal mood and affect. Her behavior is normal. Judgment and thought contentnormal. Labs: I personally reviewed and interpreted the labs documented below. Lab Results Component Value Date TRIG 76 08/09/2016 Creatinine clearance cannot be calculated (Patient's most recent lab result is older than the maximum 14 days allowed.) * Flavia Ayoub MA - 11/19/2020 10:15 AM EST Review of Systems Constitution: Negative for diaphoresis, malaise/fatigue, weight gain and weight loss. HENT: Negative for hearing loss, nosebleeds and tinnitus. Eyes: Negative for blurred vision and visual disturbance. Cardiovascular: Negative for chest pain, claudication, cyanosis, dyspnea on exertion, irregular heartbeat, leg swelling, near-syncope, orthopnea, palpitations, paroxysmal nocturnal dyspnea and syncope. Respiratory: Negative for hemoptysis, shortness of breath and snoring. Endocrine: Negative for cold intolerance and heat intolerance. Hematologic/Lymphatic: Does not bruise/bleed easily. Skin: Negative for flushing, poor wound healing and rash. Musculoskeletal: Negative for back pain, muscle weakness and myalgias. Gastrointestinal: Negative for abdominal pain, change in bowel habit, melena, nausea and vomiting. Genitourinary: Negative for decreased libido and hematuria. Neurological: Negative for loss of balance and numbness. Psychiatric/Behavioral: Negative for memory loss. The patient is not nervous/anxious. documented in this encounter* Dada Hathaway MD - 11/28/2020 6:38 PM EST Dictation on: 11/28/2020 6:39 PM by: DADA HATHAWAY [[id number]] documented in this encounter* Xochilt Lyon, MICROFILM CLERK - 08/09/2019 10:00 AM EDT [facility] DAILY TREATMENT NOTE Today's Date 08/09/2019 Patient Name: Alma Echeverria Date of : 1940 Current Visit #: 4 Authorized Visits: 100 Case Name: Therapy Rotator cuff disorder, B History: Pre-Treatment Pain Scale: 5 Symptoms: stabilized Functional Diagnosis: 1. Rotator cuff disorder, right 2. Rotator cuff disorder, left Clinical Information: Subjective: Pt reports her R shoulder was bothering her last night but that's common for her. She states pain right now isn't sharp and is more of an ache. Objective Continued exercises per log for increased shoulder mobility. Initiated supine ABCs to improve shoulder stability. Treatments: Physical Therapy Exercise Log - 08/09/19 1001 OTHER Precautions/Contraindications [facility] Notes [id number] Therapeutic Exercise (19742) Parameters supine SH ABCs, A-W Intervention Scapular retractions x20 Intervention UEB 5' lv 1 Parameters cane press ups x20 Manual Therapy (14290) Intervention STM BLE bicep tendon and UT 10' Parameters PROM x10 each plane PT Treatment Times Therex Total Time 20 Manual Therapy Total Time 15 Direct Treatment Time 35 Total Treatment Time 35 Goals: Physical Therapy Ortho Goals: 1. Patient reports their primary goal is to be able to make her shoulders well so she has her mobility back. 2. Patient will safely, correctly, and independently demonstrate the ability to perform a progressive HEP to achieve maximal rehabilitation potential and prevent this condition from recurring. 3. Patient will demonstrate a 10 degree increase in SH IR in order to be able to put on her jacket. 4. Patient will demonstrate a 10 degree increase in SH Flexion/ABD in order to be able to reach hercupboard shelves. 5. Patient will demonstrate 4+/5 SH flexion/ABD strength in order to be able to be able to put items away. IE date: 08/01/2019 Progress report due: 08/13/19 Recert due: visit # 12 Assessment: Patient had an expected response to treatment. Pt able to perform supine ABCs until W before having some increased pain and demos muscle fatigue. Empty end feel with PROM with pt reporting pain at end range Skilled Intervention demonstrated by modifications of treatment per exercise log including increased mobility and safety interventions per exercise log. Progress towards goals as expected. Plan for Next Visit: Treatment Visit with focus on increased shoulder mobility and gentle strengthening Xochilt Lyon PTA STATE LICENSE, [id number] documented in this encounter* Wang Borges MD - 11/19/2020 10:52 AM EST Interventional Cardiology Clinic Follow-up Heart & Vascular [facility] 11/19/2020 Wang Borges MD [address] [place] [address] Patient: Alma Echeverria Date of : 1940 (79 y.o.) PCP: Sancho Woodruff MD Assessment & Plan Atrial fibrillation (HCC) History of paroxysmal atrial fibrillation, currently doing well on Pradaxa, she tells me she is taking 75 mg but really the appropriate dose for her renal function is 150 mg twice daily. No real symptoms to warrant adjustments to her medications that also include Cardizem CD 240 mg daily HTN (hypertension) Blood pressure is well controlled on Cardizem CD 240 mg daily, no changes Coronary artery disease involving [place] artery of [place] heart without angina pectoris Coronary artery disease was noted on her coronary CCTA. It was not significant to warrant intervention. Specifically the LAD was 1 to 24% stenosis, circumflex was trivial, RCA shows 25 to 49%. I did review this, she should be on a statin, I will not start her on aspirin given her chronic Pradaxa use. Dyslipidemia I have started atorvastatin 10 mg daily with a target LDL of less than 100 Follow-up: Return in about 6 months (around 05/19/2021) for Physician Visit in [place]. Chief Complaint: Annual Exam (no complaints. meds reviewed- PCP manages refills ) Subjective History of Present Illness: Alma Echeverria is a 79 y.o. female who comes in today for follow-up from a cardiac standpoint. She states overall, she is doing reasonably well. I saw her last year for preoperative clearance and she did well from a cardiac standpoint with her surgery. She denies any complaints of chest pain. Shedenies any chest pain or shortness of breath. We reviewed the results of her coronary CTA that showed mild CAD. Objective Imaging: I independently reviewed the EKG and agree with the interpretation(s) with the following comments. NSR, rare PVCs ECG 12 Lead Final Result by Wang Borges MD (11/19/2020 1023) Echocardiogram complete Final Result by Haroon Quintanilla MD (07/29/2016 1048) Review of Systems: The following system(s) were reviewed and negative. Pertinent positive and negative findings are noted in the HPI. [x] Const [x] Eyes [x] ENT [x] Resp [] CV [x] GI [x] [x] Neuro [x] Musc [x] Skin [x] Psych [x] Endo [x] Allergy [x] Heme/Lymph HOME Medications: Current Outpatient Medications on File Prior to Visit Medication Sig AMITIZA 8 mcg capsule Take 8 mcg by mouth 2 (two) times a day with meals . cholecalciferol, vitamin D3, 1,000 unit tablet Take 1,000 Units by mouth daily . dabigatran (PRADAXA) 75 mg capsule Take 75 mg by mouth 2 (two) times a day . dexlansoprazole (DEXILANT) 30 mg capsule Take 30 mg by mouth daily. diltiazem (CARDIZEM CD) 240 MG 24 hr capsule Take 240 mg by mouth daily . multivitamin with minerals tablet Take 1 tablet by mouth daily . omega-3 fatty acids/fish oil (fish oil-omega-3 fatty acids) 300-1,000 mg capsule Take 2 g by mouth daily . polyethylene glycol (MIRALAX) 17 gram powder Take 17 g by mouth daily. traMADoL (ULTRAM) 50 mg tablet Take 50 mg by mouth 2 (two) times a day as needed . furosemide (LASIX) 40 MG tablet Take 40 mg by mouth daily as needed . pantoprazole (PROTONIX) 20 MG tablet Take 1 (one) tablet (20 mg total) by mouth daily Start: 12/01/19. (Patient not taking: Reported on 11/19/2020 .) sulfamethoxazole-trimethoprim (BACTRIM DS,SEPTRA DS) 800-160 mg per tablet Take 1 tablet by mouth 2(two) times a day as needed Reasons: celluitis. No current facility-administered medications on file prior to visit. Vital Signs: BP 136/77 (BP Location: Left arm, Patient Position: Sitting) Pulse 77 Ht 4' 10 Wt 71.7 kg (158 lb) SpO2 98% BMI 33.02 kg/m Physical Exam Constitutional: She is oriented to person, place, and time. She appears well- developed and well-nourished. Non-toxic appearance. She does not have a sickly appearance. HENT: Head: Normocephalic and atraumatic. Right Ear: Hearing and external ear normal. Left Ear: Hearing and external ear normal. Nose: Nose normal. Eyes: Pupils are equal, round, and reactive to light. Conjunctivae, EOM and lids are normal. Neck: Normal range of motion. Carotid bruit is not present. Cardiovascular: Normal rate, regular rhythm, S1 normal, S2 normal, normal heart sounds and normal pulses. No cyanosis, clubbing; trace left greater than right lower extremity swelling but she always has this since she had left foot surgery remotely. Pulmonary/Chest: Effort normal and breath sounds normal. Abdominal: Normal appearance. Musculoskeletal: Normal range of motion. Neurological: She is alert and oriented to person, place, and time. Skin: Skin is warm and dry. Psychiatric: She has a normal mood and affect. Her behavior is normal. Judgment and thought contentnormal. Labs: I personally reviewed and interpreted the labs documented below. Lab Results Component Value Date TRIG 76 08/09/2016 Creatinine clearance cannot be calculated (Patient's most recent lab result is older than the maximum 14 days allowed.) * Flavia Ayoub MA - 11/19/2020 10:15 AM EST Review of Systems Constitution: Negative for diaphoresis, malaise/fatigue, weight gain and weight loss. HENT: Negative for hearing loss, nosebleeds and tinnitus. Eyes: Negative for blurred vision and visual disturbance. Cardiovascular: Negative for chest pain, claudication, cyanosis, dyspnea on exertion, irregular heartbeat, leg swelling, near-syncope, orthopnea, palpitations, paroxysmal nocturnal dyspnea and syncope. Respiratory: Negative for hemoptysis, shortness of breath and snoring. Endocrine: Negative for cold intolerance and heat intolerance. Hematologic/Lymphatic: Does not bruise/bleed easily. Skin: Negative for flushing, poor wound healing and rash. Musculoskeletal: Negative for back pain, muscle weakness and myalgias. Gastrointestinal: Negative for abdominal pain, change in bowel habit, melena, nausea and vomiting. Genitourinary: Negative for decreased libido and hematuria. Neurological: Negative for loss of balance and numbness. Psychiatric/Behavioral: Negative for memory loss. The patient is not nervous/anxious. documented in this encounter* Wang Borges MD - 11/19/2020 10:52 AM EST Interventional Cardiology Clinic Follow-up Heart & Vascular [facility] 11/19/2020 Wang Borges MD [address] [place] [address] Patient: Alma Echeverria Date of : 1940 (79 y.o.) PCP: Sancho Woodruff MD Assessment & Plan No problem-specific Assessment & Plan notes found for this encounter. Follow-up: Return in about 6 months (around 05/19/2021) for Physician Visit in [place]. Chief Complaint: Annual Exam (no complaints. meds reviewed- PCP manages refills ) Subjective History of Present Illness: Alma Echeverria is a 79 y.o. female who comes in today for follow-up from a cardiac standpoint. She states overall, she is doing reasonably well. I saw her last year for preoperative clearance and she did well from a cardiac standpoint with her surgery. She denies any complaints of chest pain. Shedenies any chest pain or shortness of breath. We reviewed the results of her coronary CTA that showed mild CAD. Objective Imaging: I independently reviewed the EKG and agree with the interpretation(s) with the following comments. NSR, rare PVCs ECG 12 Lead Final Result by Wang Borges MD (11/19/2020 1023) Echocardiogram complete Final Result by Haroon Quintanilla MD (07/29/2016 1048) Review of Systems: The following system(s) were reviewed and negative. Pertinent positive and negative findings are noted in the HPI. [x] Const [x] Eyes [x] ENT [x] Resp [] CV [x] GI [x] [x] Neuro [x] Musc [x] Skin [x] Psych [x] Endo [x] Allergy [x] Heme/Lymph HOME Medications: Current Outpatient Medications on File Prior to Visit Medication Sig AMITIZA 8 mcg capsule Take 8 mcg by mouth 2 (two) times a day with meals . cholecalciferol, vitamin D3, 1,000 unit tablet Take 1,000 Units by mouth daily . dabigatran (PRADAXA) 75 mg capsule Take 75 mg by mouth 2 (two) times a day . dexlansoprazole (DEXILANT) 30 mg capsule Take 30 mg by mouth daily. diltiazem (CARDIZEM CD) 240 MG 24 hr capsule Take 240 mg by mouth daily . multivitamin with minerals tablet Take 1 tablet by mouth daily . omega-3 fatty acids/fish oil (fish oil-omega-3 fatty acids) 300-1,000 mg capsule Take 2 g by mouth daily . polyethylene glycol (MIRALAX) 17 gram powder Take 17 g by mouth daily. traMADoL (ULTRAM) 50 mg tablet Take 50 mg by mouth 2 (two) times a day as needed . furosemide (LASIX) 40 MG tablet Take 40 mg by mouth daily as needed . pantoprazole (PROTONIX) 20 MG tablet Take 1 (one) tablet (20 mg total) by mouth daily Start: 12/01/19. (Patient not taking: Reported on 11/19/2020 .) sulfamethoxazole-trimethoprim (BACTRIM DS,SEPTRA DS) 800-160 mg per tablet Take 1 tablet by mouth 2(two) times a day as needed Reasons: celluitis. [DISCONTINUED] amoxicillin (AMOXIL) 500 MG capsule Take 500 mg by mouth . [DISCONTINUED] nitrofurantoin, macrocrystal-monohydrate, (MACROBID) 100 MG capsule Take 100 mg by mouth . No current facility-administered medications on file prior to visit. Vital Signs: BP 136/77 (BP Location: Left arm, Patient Position: Sitting) Pulse 77 Ht 4' 10 Wt 71.7 kg (158 lb) SpO2 98% BMI 33.02 kg/m Physical Exam Constitutional: She is oriented to person, place, and time. She appears well- developed and well-nourished. Non-toxic appearance. She does not have a sickly appearance. HENT: Head: Normocephalic and atraumatic. Right Ear: Hearing and external ear normal. Left Ear: Hearing and external ear normal. Nose: Nose normal. Eyes: Pupils are equal, round, and reactive to light. Conjunctivae, EOM and lids are normal. Neck: Normal range of motion. Carotid bruit is not present. Cardiovascular: Normal rate, regular rhythm, S1 normal, S2 normal, normal heart sounds and normal pulses. No cyanosis, clubbing; trace left greater than right lower extremity swelling but she always has this since she had left foot surgery remotely. Pulmonary/Chest: Effort normal and breath sounds normal. Abdominal: Normal appearance. Musculoskeletal: Normal range of motion. Neurological: She is alert and oriented to person, place, and time. Skin: Skin is warm and dry. Psychiatric: She has a normal mood and affect. Her behavior is normal. Judgment and thought contentnormal. Labs: I personally reviewed and interpreted the labs documented below. Lab Results Component Value Date TRIG 76 08/09/2016 Creatinine clearance cannot be calculated (Patient's most recent lab result is older than the maximum 14 days allowed.) * Flavia Ayoub MA - 11/19/2020 10:15 AM EST Review of Systems Constitution: Negative for diaphoresis, malaise/fatigue, weight gain and weight loss. HENT: Negative for hearing loss, nosebleeds and tinnitus. Eyes: Negative for blurred vision and visual disturbance. Cardiovascular: Negative for chest pain, claudication, cyanosis, dyspnea on exertion, irregular heartbeat, leg swelling, near-syncope, orthopnea, palpitations, paroxysmal nocturnal dyspnea and syncope. Respiratory: Negative for hemoptysis, shortness of breath and snoring. Endocrine: Negative for cold intolerance and heat intolerance. Hematologic/Lymphatic: Does not bruise/bleed easily. Skin: Negative for flushing, poor wound healing and rash. Musculoskeletal: Negative for back pain, muscle weakness and myalgias. Gastrointestinal: Negative for abdominal pain, change in bowel habit, melena, nausea and vomiting. Genitourinary: Negative for decreased libido and hematuria. Neurological: Negative for loss of balance and numbness. Psychiatric/Behavioral: Negative for memory loss. The patient is not nervous/anxious. documented in this encounter* Dariela Santillan RN - 12/09/2020 2:53 PM EST Error documented in this encounter* Elisha Milton PTA - 08/23/2019 2:30 PM EST [facility] DAILY TREATMENT NOTE Today's Date 08/23/2019 Patient Name: Alma Echeverria Date of : 1940 Current Visit #: 6 Authorized Visits: 100 Case Name: Therapy Rotator cuff disorder, B History: Pre-Treatment Pain Scale: 7 Symptoms: stabilized Functional Diagnosis: 1. Rotator cuff disorder, right 2. Rotator cuff disorder, left Clinical Information: Subjective: Pt reports her shoulder is about the same as when she began. States the past few days has been very painful , pt feels the weather is affecting her. Objective Continued with current ex's and PROM Treatments: Physical Therapy Exercise Log - 08/23/19 1432 OTHER Precautions/Contraindications LATEX ALLERGY Notes 1:45- 2:25 Vitals Elisha Therapeutic Exercise (76712) Parameters supine SH ABCs BLE Intervention Scapular retractions x20 Intervention UEB 6' lv 1 Parameters cane press ups x20 Intervention cane flexion x20 Manual Therapy (71949) Intervention STM BLE bicep tendon and UT 10' Parameters PROM x10 each plane PT Treatment Times Therex Total Time 34 Direct Treatment Time 34 Total Treatment Time 38 Goals: Physical Therapy Ortho Goals: 1. Patient reports their primary goal is to be able to make her shoulders well so she has her mobility back. 2. Patient will safely, correctly, and independently demonstrate the ability to perform a progressive HEP to achieve maximal rehabilitation potential and prevent this condition from recurring. 3. Patient will demonstrate a 10 degree increase in SH IR in order to be able to put on her jacket. 4. Patient will demonstrate a 10 degree increase in SH Flexion/ABD in order to be able to reach hercupboard shelves. 5. Patient will demonstrate 4+/5 SH flexion/ABD strength in order to be able to be able to put items away. IE date: 08/01/2019 Progress report due: 08/13/19 Recert due: visit # 12 Patient Education: Pain Management with patient verbalized understanding. Post-Treatment Pain Scale: 8 Assessment: Pt completed AAROM with Right shoulder becoming painful, ABC's modified to limited motion for stabilization ex with less pain. Patient had an expected response to treatment. Skilled Intervention demonstrated by modifications of treatment per exercise log including increased intensity and safety interventions per exercise log. Progress towards goals as expected. Plan for Next Visit: Treatment Visit with focus on Flexibility and shoulder strengthening Elisha Milton PTA STATE LICENSE, [id number] documented in this encounter* Sadaf Cardenas, PT - 09/04/2019 9:15 AM EST [facility] DAILY TREATMENT NOTE Today's Date 09/04/2019 Patient Name: Alma Echeverria Date of : 1940 Current Visit #: 8 Authorized Visits: 100 Case Name: Therapy Rotator cuff disorder, B History: Pre-Treatment Pain Scale: 4 Symptoms: stabilized Functional Diagnosis: 1. Rotator cuff disorder, right 2. Rotator cuff disorder, left Clinical Information: Subjective: Patient states her shoulder has been sore over the weekend and she was a little bruisedform the massage, but she did not have any headaches. Objective: Added in further SH strengthening. Treatments: Physical Therapy Exercise Log - 09/04/19 0952 OTHER Precautions/Contraindications LATEX ALLERGY Notes 9:15-10:00 05/21 Dejon Talavera Therapeutic Exercise ([id number]) Parameters supine SH ABCs BLE Intervention Scapular retractions x20 Parameters Supine SH flexion L 1#x10 R D/C Intervention UEB 6' lv 1 Parameters Standing SH ER x25 GTT Intervention Standing SH Ext x25 GTT Parameters Standing SH IR x25 B Intervention Standing SH row x25 GTT B Manual Therapy (89289) Intervention STM BLE bicep tendon, UT, and ES 20' Parameters PROM x10 each plane PT Treatment Times Therex Total Time 17 Manual Therapy Total Time 24 Direct Treatment Time 41 Total Treatment Time 43 Goals: Physical Therapy Ortho Goals: 1. Patient reports their primary goal is to be able to make her shoulders well so she has her mobility back. 2. Patient will safely, correctly, and independently demonstrate the ability to perform a progressive HEP to achieve maximal rehabilitation potential and prevent this condition from recurring. 3. Patient will demonstrate a 10 degree increase in SH IR in order to be able to put on her jacket. 4. Patient will demonstrate a 10 degree increase in SH Flexion/ABD in order to be able to reach hercupboard shelves. 5. Patient will demonstrate 4+/5 SH flexion/ABD strength in order to be able to be able to put items away. IE date: 08/01/2019 Progress report due: 08/13/19 Recert due: visit # 12 Assessment: Patient demonstrates decreased Sh strength in R Rotator cuff that is contributing to her difficulty with ADLs. Patient demonstrates decreased facilitation of B UT that has contributed to her decreased headaches. Plan for Next Visit: Treatment Visit with focus on increasing SH strength and stabilization. Sadaf Cardenas PT State License, [id number] documented in this encounter* Dada Hathaway MD - 03/19/2019 3:33 PM EDT Alma comes today for followup of both shoulders. Alma is continuing to aragon some issues with cirrhosis of the liver as well as atrial fibrillation. She has had bilateral shoulder issues. She has had rotator cuff pathology, and at this time she said she wants a shot in both shoulders. I have injected both shoulders in the past. The last time I did the shoulder injections was in August 2018. PHYSICAL EXAMINATION General: Today, she is awake, alert x3. Ambulates without assistive device. She is by herself. Extremities: Both upper extremities are neurologically intact. 2+ pulses. Full range of motion of the hand, wrist, elbows. Shoulders at 140 degrees of forward flexion, 80 degrees of abduction, 4/5 strength supraspinatus infraspinatus, 5/5 strength subscapularis. IMPRESSION 1.Bilateral shoulder impingement. 2.Bilateral shoulder rotator cuff tears. 3.Bilateral shoulder rotator cuff tear arthropathy. PLAN At this point in time, under sterile conditions with patient's consent, we injected 20 mg of Kenalog and 2.5 cc of 1% lidocaine without epinephrine to the right and left shoulder. Patient tolerated the procedure well. I will see her back on a p.r.n. basis. documented in this encounter* Debi Lord PTA - 08/07/2019 8:30 AM EDT [facility] DAILY TREATMENT NOTE Today's Date 08/07/2019 Patient Name: Alma Echeverria Date of : 1940 Current Visit #: 3 Authorized Visits: 100 Case Name: Therapy Rotator cuff disorder, B History: Pre-Treatment Pain Scale: 2 Symptoms: gradually improved Functional Diagnosis: 1. Rotator cuff disorder, right 2. Rotator cuff disorder, left Clinical Information: Subjective: Reports her R shoulder is still more painful than left. She depends on her L shoulder for a lot of things. Objective PROM shouulder flexion 150 degrees BLE. Treatments: Physical Therapy Exercise Log - 08/07/19 1130 OTHER Precautions/Contraindications LATEX ALLERGY Notes Debi 8:30-9:05 Therapeutic Exercise ([id number]) Intervention SH isometerics (A) Parameters supine SH ABCs (A) Intervention Scapular retractions x20 Parameters SH Rows/ext YTT seated Intervention UEB 5' lv 1 Parameters cane press ups x20 Manual Therapy ([id number]) Intervention STM BLE bicep tendon and UT 10' Parameters PROM x10 each plane PT Treatment Times Therex Total Time 20 Manual Therapy Total Time 15 Direct Treatment Time 35 Total Treatment Time 35 Progress towards goals as expected. Plan for Next Visit: Treatment Visit with focus on strength Debi Lord PTA STATE LICENSE, [id number] documented in this encounter* Amanda Christina LPN - 12/06/2019 3:23 PM EST I spoke carmelo Marquez today and she tells me she is doing ok, exercises are a little rough. Her shoulder swelling is better w ice, she does have some swelling in her lower arm but does keep her hand higherthan her elbow most of the time. She denies any constipation/n. She is taking Protonix qd and 325mgASA bid but will be switching back to her Pradaxa tomorrow pr Dr Hathaway instructions. documented in this encounter* Sadaf Cardenas, PT - 08/01/2019 1:00 PM EDT [facility] Evaluation Today's Date 08/01/2019 Patient Name: Alma Echeverria Date of : 1940 Case Name: Therapy Rotator cuff disorder, B Functional Diagnosis: 1. Rotator cuff disorder, left 2. Rotator cuff disorder, right Clinical Information: Subjective Referring Diagnosis: Rotator cuff disorder, B History of Present Illness Chief Complaint/ Mechanism of Injury: Patient states her rotator cuffs are both bad. Patient statesher R has gotten really really bad the past few months. Patient states her R shoulder grinds, swells, and is lower than her R. Patient states trying to put on jackets and shirts is very difficult andreaching is nearly impossible. Patient states her L SH continues to also be painful. Patient statesher shoulder aches during the night. Lifting a coffee pot is also difficult and she has to use her L arm. Patient states they are planning on doing surgery, but she has to complete PT first. Previous Treatment for this condition: Injections Prior treatment effectiveness: moderate (Have not been as effective with the last couple shots) Previous Imaging: X-ray Status: worsening Hand dominance: right Pain Scale: Average Pain: 0/10 (Left 0/10; Right 4/10) Pain at highest rating: Right:10/10 or more, sharp/shooting, catching; L- 3-4/10. Aggravating factors: any movement in her R arm; raising is almost non-existent; out to the side Easing factors: cortizone shots; taking tramadol as needed Functional Status Functional Limitations: limited mobility, recent decline in level of ADL and standing Premorbid Functional Level: Patient reported Current Functional Level: None Daily activity scale: low active Prior level of function: low active Sleep Assessment Sleep disturbance: Sleep Disturbance (wakes up exhausted; has to prop up R SH) Red Flags: None Barriers to Care: None Fall risk screening Fallen 2 or more times in the last 12 months: No Injured as a result of a fall in the last 12 months: No Personal Goals: To make her shoulders well so she has her mobility back Volunteering, coordinating trips, spending time with her family (kids, grandkids, great-grandkids),crossword puzzles, play games on the computer, socialize with friends Social History 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 Range of Motion: Flexion: Active: 95 (pain all over shoulder) Abduction: Active: 70 (Pain all over shoulder) IR 0 deg.: Active: 5 (Pain all over shoulder) ER 0 deg.: Active: 5 (Pain all over shoulder) Muscle Strength: Flexion: 4- Abduction: 4- IR: 4- ER: 4- Left Shoulder Range of Motion: Flexion: Active: 113 Abduction: Active: 90 IR 0 deg.: Active: 35 (measured at 45 degrees ) ER 0 deg.: Active: 35 (Measured at 45 degrees) Muscle Strength: Flexion: 4 Abduction: 4 IR: 4 ER: 4 Additional Comments: Due to ROM limitations was unable to complete most special test Treatments: Physical Therapy Exercise Log - 08/01/19 1308 OTHER Precautions/Contraindications LATEX ALLERGY Gabriela Talavera 10/21 1:00-1:45 Therapeutic Exercise ([id number]) Intervention SH isometerics (A) Parameters supine SH ABCs (A) Intervention Scapular retractions (A) Parameters SH Rows/ext (A) Manual Therapy ([id number]) Intervention STM R bicep tendon and UT (A) Parameters PROM (A) PT Treatment Times Total Treatment Time 45 Treatment Plan: Frequency of Visits: twice per week Duration: 6 weeks Interventions: Therapeutic Exercise, Neuromuscular Re-Education, Manual Therapy, Therapeutic/ Functional Activities, Self Care, Hot/Cold Pack, Electrical Stimulation, Ultrasound, Vasopneumatic and dry needling. Rehab Potential: good Goals: Physical Therapy Ortho Goals: 1. Patient reports their primary goal is to be able to make her shoulders well so she has her mobility back. 2. Patient will safely, correctly, and independently demonstrate the ability to perform a progressive HEP to achieve maximal rehabilitation potential and prevent this condition from recurring. 3. Patient will demonstrate a 10 degree increase in SH IR in order to be able to put on her jacket. 4. Patient will demonstrate a 10 degree increase in SH Flexion/ABD in order to be able to reach hercupboard shelves. 5. Patient will demonstrate 4+/5 SH flexion/ABD strength in order to be able to be able to put items away. IE date: 08/01/2019 Progress report due: 08/13/19 Recert due: visit # 12 Patient Education provided: Education on patient diagnosis, physical therapist POC, and HEP to begin until next visit. Clinical Impression: Patient would benefit from skilled physical therapy in order to be able to increase B SH ROM, increase strength, improve neuromuscular control, increase muscle mobility, and improve joint stabilization in order to return to normal ADLs. Sadaf Cardenas PT State License, [id number] documented in this encounter* Dada Hathaway MD - 10/22/2019 11:46 AM EST Dictation on: 10/22/2019 11:47 AM by: DADA HATHAWAY [[id number]] documented in this encounter* Debi Lord PTA - 08/14/2019 1:45 PM EST [facility] OUTPATIENT [facility]IL[facility] DAILY TREATMENT NOTE Today's Date 08/14/2019 Patient Name: Alma Echeverria Date of : 1940 Current Visit #: 5 Authorized Visits: 100 Case Name: Therapy Rotator cuff disorder, B History: Pre-Treatment Pain Scale: 3 Symptoms: gradually improved Functional Diagnosis: 1. Rotator cuff disorder, right 2. Rotator cuff disorder, left Clinical Information: Subjective: reports her shoulders are still hurting. Difficult to do ADL's Objective PROM flexion end range pain and tightness. ER strength 4-/5 BLE. Treatments: Physical Therapy Exercise Log - 08/14/19 1602 OTHER Precautions/Contraindications LATEX ALLERGY Notes 1:45- 2:25 Therapeutic Exercise ([id number]) Parameters supine SH ABCs BLE Intervention Scapular retractions x20 Intervention UEB 6' lv 1 Parameters cane press ups x20 Intervention cane flexion x20 Manual Therapy (89532) Intervention STM BLE bicep tendon and UT 10' Parameters PROM x10 each plane PT Treatment Times Therex Total Time 20 Manual Therapy Total Time 20 Direct Treatment Time 40 Total Treatment Time 40 Progress towards goals as expected. Plan for Next Visit: Treatment Visit with focus on ROM Debi Lord PTA STATE LICENSE, [id number] documented in this encounter Reason for Referral Status Reason Specialty Diagnoses / Procedures Referred By Contact Referred To Contact Pending Review Radiology Diagnoses Breast cancer screening by mammogram Procedures Mammography Screening Bilateral Stencel, Sancho Casey MD [address] [place] [address] Status Reason Specialty Diagnoses / Procedures Re ferred By Contact Referred To Contact Authorized Radiology Diagnoses Preop cardiovascular exam Atrial fibrillation, unspecified type (HCC) Essential hypertension Procedures NM Myocardial Perfusion Multiple SPECT Wang Borges MD [address] [address] Status Reason Specialty Diagnoses / Procedures Re ferred By Contact Referred To Contact Closed Radiology Diagnoses Preop cardiovascular exam Atrial fibrillation, unspecified type (HCC) Essential hypertension Procedures NM Myocardial Perfusion Multiple SPECT Wang Borges MD [address] [address] Status Reason Specialty Diagnoses / Procedures Referre d By Contact Referred To Contact Closed Radiology Diagnoses Atrial fibrillation, unspecified type (HCC) Procedures CT CCTA Heart With And Without Contrast Wang Borges MD [address] [address] Status Reason Specialty Diagnoses / Procedures Referred By Contact Referred To Contact Authorized Cardiology Diagnoses Atrial fibrillation, unspecified type (HCC) Procedures ECG 12 Lead Wang Borges MD [address] [address] Status Reason Specialty Diagnoses / Procedures Referred By Contact Referred To Contact Pending Review Specialty Services Required/Patie nt's Best Interest Gastroenterology Diagnoses 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) Wang Borges MD [address] [address] Franklin Valles MD [address] [place] [address] Specialty Diagnoses / Procedures Referred By Contac t Referred To Contact Cardiology Diagnoses Atrial fibrillation, unspecified type (HCC) Procedures ECG 12 lead Wang Borges MD [address] [place] [id number] Referral ID Status Reason Start Date Expiration Date Visits Re quested Visits Authorized [id number] Closed 03/09/2022 03/09/2023 1 1 Specialty Diagnoses / Procedures Referred By Contac t Referred To Contact Pain Management Diagnoses DDD (degenerative disc disease), lumbar Voss, Christine Gill, [employer] [address] [place] [address] Referral ID Status Reason Start Date Expiration Date Visits Requested Visits Authorized [id number] Authorized Specialty Services Required/Pat ient's Best Interest 2022 2023 1 1 Specialty Diagnoses / Procedures Referred By Contac t Referred To Contact Neurosurgery Diagnoses Lumbar neuritis DDD (degenerative disc disease), lumbosacral Stencel, Sancho Casey MD [address] [place] [address] Bridger Monique MD [facility] [address] [address] Referral ID Status Reason Start Date Expiration Date V isits Requested Visits Authorized [id number] Authorized 02/14/2023 02/14/2024 1 1 Specialty Diagnoses / Procedures Referred By Contac t Referred To Contact Cardiology Diagnoses Paroxysmal atrial fibrillation (HCC) Procedures ECG 12 lead Wang Borges MD [address] [facility] [address] [place] [address] Referral ID Status Reason Start Date Expiration Date V isits Requested Visits Authorized [id number] Authorized 04/11/2023 04/10/2024 1 1 Specialty Diagnoses / Procedures Referred By Contac t Referred To Contact Pain Medicine Diagnoses Cervicalgia Johnson, Jose A Blanco, [employer] [address] [address] Jaylan Benavides, [address] [place] [phone] Referral ID Status Reason Start Date Expiration Date Visits Requested Visits Authorized [id number] Authorized Patient Preference 12/21/2023 12/20/2024 1 1 Specialty Diagnoses / Procedures Referred By Contac t Referred To Contact Radiology Diagnoses Cervical radiculopathy Procedures MR Cervical Spine Without Contrast Jaylan Benavides, DO [address] [place] [address] Referral ID Status Reason Start Date Expiration Date V isits Requested Visits Authorized [id number] New Request 02/29/2024 02/28/2025 1 1 Specialty Diagnoses / Procedures Referred By Contac t Referred To Contact Radiology Diagnoses Acute pain of left knee Procedures XR knee left 4+ views Sancho Woodruff MD [address] [place] [address] Referral ID Status Reason Start Date Expiration Date Visits Requested Visits Authorized [id number] Authorized Perform Procedure 03/12/2024 03/12/2025 1 1 Specialty Diagnoses / Procedures Referred By Contac t Referred To Contact Diagnoses DDD (degenerative disc disease), lumbosacral Lumbar stenosis with neurogenic claudication Sancho Woodruff MD [address] [place] [address] Referral ID Status Reason Start Date Expiration Date V isits Requested Visits Authorized [id number] Authorized 03/17/2024 04/16/2025 1 1 Specialty Diagnoses / Procedures Referred By Contac t Referred To Contact Primary Care Diagnoses DDD (degenerative disc disease), lumbosacral Lumbar stenosis with neurogenic claudication Closed fracture of sacrum, unspecified portion of sacrum, initial encounter (Multi) Procedures Follow Up In Primary Care - Established Sancho Woodruff MD [address] [place] [address] Referral ID Status Reason Start Date Expiration Date V isits Requested Visits Authorized [id number] Authorized 04/16/2024 04/16/2025 1 1 Instructions Name Dates Details Instructions not documented Name Dates Details Instructions not documented Name Dates Details Instructions not documented Discharge Instructions * Attachments The following attachments cannot be sent through Care Everywhere. * Shoulder Replacement Surgery: Post-op (Persian) documented in this encounter* Instructions* Cara Adrian RN - 02/12/2020 Drink 1-2 glasses of fluids each hour until bedtime to help flush dye, call physician with any signs of reaction : rash, itching, fever, shortness of breath documented in this encounter Chief Complaint 3 MO AFIB BARRETTS ESOPHAGUS HTN HTH HL 3 MO CSFU3 MO CS FU3 MO CS FUEDEMA BILAT HANDS, FEET, LEGS X 3 WKS. BILAT LEG PAIN X 3 WKS AND ABDOMINAL PAIN LEFT SIDE X 2-3 MO. PT STARTED TAKING LASIX EVERYDAY TO HELP WITH THE SWELLING3 MO CS FU. DISCUSS SWELLING IN BILATE LEGS3 MO CSA3 MO CSABUMPS ON BACK OF TONGUE X 4-5 DAYSMCW..RE CHECK SPOT ON TONGUE WHICH IS NOT GETTING BETTER. 3 MO CS PAPERWORK3 MO CSA. DEVELOPED SORENESS UPPER LEFT ABDOMINAL AREA X 2 MO3 MO CSA/UDS.* Patient is a new patient today. Patient complains of pain in her mid lower back to right side. It radiates into her right hip and leg down to just above her knee. Patient states this pain started about 1 month ago. She denied injury she states she just started having pain one day. Patient states her pain is worse with walking. She still has pain when sitting but it is less severe. Patient rates her pain a 10/10 at this time. Patient ambulated in today with her husbands support and a cane. She states she's been using a walker at home. * Patient states her PCP prescribes Tramadol for her bone on bone back pain. * Patient denied smoking. Depression screen completed, negative. BMI NA due to age. ORT score 3. MARYLU score 34. * FUV PATIENT IS FOLLOWING UP AFTER TWO INJECTIONS TODAY, WITH BOTH SHE REPORTS 80% IMPROVEMENT IN HER PAIN LEVELS AND FUNCTIONALITY/MOBILITY. SHE HAD A LEFT TROCHANTERIC BURSA INJECTION AND RIGHT SCIATIC NERVE INJECTION. SHE STATES SHE IS HAPPY WITH HER IMPROVEMENT. SHE STATES SHE COULD NOT EVEN WALK BEFORE SHE HAD THESE DONE, THEN SHE MOVED TO A WALKER AND NOW SHE IS AMBULATING WITH A CANE. REPORTS THAT SHE IS HAVING VERY LITTLE DISCOMFORT IN THOSE AREAS WELL HAVING SOME SORENESS IN THE LOW BACK. SHE STATES SHE IS HAVING SOME PAIN IN HER LEFT SIDE ABDOMEN AND WONDERS IF IT IS BOWEL ISSUES BUT IS SEEING DR. OCAMPO SOON. SHE DOES STRETCHES IN THE MORNINGS THAT SHE LEARNED IN PT- SHE STATES FOR THE LAST FEW DAYS SHE HAS NOT BEEN DOING THEM IN ORDER TO AVOID WORSENING THE PAIN IN HER ABDOMEN. SHE DOES NOT USE ICE/HEAT BECAUSE THEY MAKE HER PAIN WORSE. * MARYLU SCORE 28. PAIN SCORE 6/10. NPV in office today for +FOBT recently but had a colonoscopy 06/16/2022 for family hx. Patient states she also is having some LUQ pain with some nausea/ dry heaving using TUMS for relief, does have ahemorrhoid. Had black stools for a couple months ( had change in blood thinner, and a sacral fracture- no fall) Chief Complaint and Reason for Visit Chief Complaint Admit Date wound April 23, 2025 7:29 am wound April 29, 2025 3:00 pm wound April 30, 2025 11:5 5am Reason for Visit Admit Date Atrial fibrillation April 29, 2025 3:00 pm MATTHEW (nonalcoholic steatohepatitis) April 29, 2025 3:00pm Sacral decubitus ulcer, stage III April 102024 3:00pm Chief Complaint Admit Date wound April 22, 2025 12:0 0pm wound April 29, 2025 12:0 0pm wound April 29, 2025 3:00 pm wound May 20, 2025 4: 20pm wound May 27, 2025 2: 00pm wound May 27, 2025 2: 19pm Reason for Visit Admit Date Atrial fibrillation April 29, 2025 3:00 pm MATTHEW (nonalcoholic steatohepatitis) April 29, 2025 3:00pm Sacral decubitus ulcer, stage III April 102024 3:00pm Arthritis May 27, 2025 2: 00pm Atrial fibrillation May 27, 2025 2: 00pm Cancer May 27, 2025 2: 00pm Cirrhosis May 27, 2025 2: 00pm Gastric reflux May 27, 2025 2: 00pm High cholesterol May 27, 2025 2: 00pm History of bilateral knee arthroplasty A ugust 2024 2:00pm History of diverticulitis May 27 2:00pm History of esophagogastroduodenoscopy (E GD) May 27, 2025 2:00pm History of hiatal hernia May 27 2:00pm History of IBS May 27, 2025 2: 00pm History of laparoscopic cholecystectomy May 27, 2025 2:00pm Hx of appendectomy May 27, 2025 2: 00pm Hx of bilateral cataract extraction Augu 2024 2:00pm Hx of colonoscopy May 27, 2025 2: 00pm Hx of hysterectomy, total May 27 025 2:00pm Hx of small bowel obstruction May 2:00pm Hx of tonsillectomy May 27, 2025 2: 00pm Hx of total shoulder replacement May 27, 2025 2:00pm MATTHEW (nonalcoholic steatohepatitis) Augu st 2024 2:00pm Sacral decubitus ulcer, stage III May 27, 2025 2:00pm Chief Complaint Admit Date wound April 22, 2025 12:0 0pm wound April 29, 2025 12:0 0pm wound April 29, 2025 3:00 pm wound May 20, 2025 4: 20pm wound May 27, 2025 2: 00pm wound May 27, 2025 2: 19pm wound June 18, 2025 9:47am sacral ulcer- r/o osteo June 28, 2025 3:04pm wound July 01, 2025 9:45am wound July 02, 2025 9:56am Reason for Visit Admit Date Atrial fibrillation April 29, 2025 3:00 pm MATTHEW (nonalcoholic steatohepatitis) April 29, 2025 3:00pm Sacral decubitus ulcer, stage III April 102024 3:00pm Arthritis May 27, 2025 2: 00pm Atrial fibrillation May 27, 2025 2: 00pm Cancer May 27, 2025 2: 00pm Cirrhosis May 27, 2025 2: 00pm Gastric reflux May 27, 2025 2: 00pm High cholesterol May 27, 2025 2: 00pm History of bilateral knee arthroplasty A ugust 2024 2:00pm History of diverticulitis May 27, 025 2:00pm History of esophagogastroduodenoscopy (E GD) May 27, 2025 2:00pm History of hiatal hernia May 27 2:00pm History of IBS May 27, 2025 2: 00pm History of laparoscopic cholecystectomy May 27, 2025 2:00pm Hx of appendectomy May 27, 2025 2: 00pm Hx of bilateral cataract extraction Augu 2024 2:00pm Hx of colonoscopy May 27, 2025 2: 00pm Hx of hysterectomy, total May 27 025 2:00pm Hx of small bowel obstruction May 2:00pm Hx of tonsillectomy May 27, 2025 2: 00pm Hx of total shoulder replacement May 27, 2025 2:00pm MATTHEW (nonalcoholic steatohepatitis) Augu st 2024 2:00pm Sacral decubitus ulcer, stage III May 27, 2025 2:00pm Sacral decubitus ulcer, stage III Septem 2024 9:45am Additional Source Comments INFORMATION SOURCE (unrecogn ized section and content) DATE CREATED AUTHOR 04/25/2018 [facility] DATE CREATED AUTHOR AUTHOR'S ORGANIZ ATION 07/11/2019 [facility] DATE CREATED AUTHOR AUTHOR'S ORGANIZ ATION 10/08/2019 [facility] DATE CREATED AUTHOR AUTHOR'S ORGANIZ ATION 03/28/2023 [employer] DATE CREATED AUTHOR AUTHOR'S ORGANIZ ATION 03/29/2023 [facility] DATE CREATED AUTHOR AUTHOR'S ORGANIZ ATION 06/16/2023 [facility] DATE CREATED AUTHOR AUTHOR'S ORGANIZ ATION 08/23/2023 [facility] DATE CREATED AUTHOR AUTHOR'S ORGANIZ ATION 08/22/2024 [facility] DATE CREATED AUTHOR AUTHOR'S ORGANIZ ATION 11/22/2024 [facility] DATE CREATED AUTHOR AUTHOR'S ORGANIZ ATION [facility] DATE CREATED AUTHOR AUTHOR'S ORGANIZ ATION 08/05/2025 [facility] DATE CREATED AUTHOR AUTHOR'S ORGANIZ ATION 08/05/2025 [facility] DATE CREATED AUTHOR AUTHOR'S ORGANIZ ATION 08/08/2025 [facility] DATE CREATED AUTHOR AUTHOR'S ORGANIZ ATION 08/11/2025 [facility] Reason for Visit (unrecogniz ed section and content) Reason Comments Physical Therapy Rotator cuff disorde r, B Status Reason Specialty Diagnoses / Procedures Referred By Contact Referred To Contact Authorized Specialty Services Required/Cielo ent's Best Interest Physical Therapy / Rehabilitation Diagnoses Rotator cuff disorder, left Rotator cuff disorder, right Dada Hathaway MD [address] [place] [address] [facility] [address] [place] [address] Reason Comments Follow-up Reason Comments Pain Follow-up Reason Comments Physical Therapy Status Reason Specialty Diagnoses / Procedures Referred By Contact Referred To Contact Authorized Specialty Services Required/Cielo ent's Best Interest Physical Therapy / Rehabilitation Diagnoses Rotator cuff disorder, left Rotator cuff disorder, right Dada Hathaway MD [address] [place] [address] [place] [address] Status Reason Specialty Diagnoses / Procedures Referred By Contact Referred To Contact Pending Review Radiology Diagnoses Breast cancer screening by mammogram Procedures Mammography Screening Bilateral EstefanicelSancho MD [address] [place] [address] Reason Comments Pre-op Exam Shoulder surgery Status Reason Specialty Diagnoses / Procedures Referred By Contact Referred To Contact Closed Specialty Services Required/Patient 's Best Interest Cardiology Diagnoses Rotator cuff disorder, right Dada Hathaway MD [address] [place] [address] Haroon Quintanilla MD [address] [place] [address] Status Reason Specialty Diagnoses / Procedures Re ferred By Contact Referred To Contact Closed Radiology Diagnoses Preop cardiovascular exam Atrial fibrillation, unspecified type (HCC) Essential hypertension Procedures NM Myocardial Perfusion Multiple SPECT Wang Borges MD [address] [address] Status Reason Specialty Diagnoses / Procedures Referre d By Contact Referred To Contact Diagnoses Rotator cuff disorder, right Rotator cuff disorder, right [M67.911] Procedures MA RECONSTR TOTAL SHOULDER IMPLANT Reverse right total shoulder replacement [[id number]] Dada Hathaway MD [address] [place] [address] Status Reason Specialty Diagnoses / Procedures Referre d By Contact Referred To Contact Closed Radiology Diagnoses Atrial fibrillation, unspecified type (HCC) Procedures CT CCTA Heart With And Without Contrast Wang Borges MD [address] [facility] [address] [place] [address] Reason Comments Pain Reason Comments Follow-up Suture / Staple Removal Wound Check Reason Comments Injections Reason Comments Annual Exam no complaints. meds reviewed- PCP manages refills Reason Comments Follow-up Pain Reason Comments Calluses right heel callus Reason Onset Date Comments Medication Refill 12/09/2021 Atorvastatin Specialty Diagnoses / Procedures [facility] Referred To Contact Cardiology Diagnoses Atrial fibrillation, unspecified type (HCC) Procedures ECG 12 lead Wang Borges MD [address] [facility] [address] [place] [address] Referral ID Status Reason Start Date Expiration Date Visits Re quested Visits Authorized [id number] Closed 03/09/2022 03/09/2023 1 1 Reason Comments Follow-up Overdue f/u without medication list/bottles Reason Comments 3 mo fu Reason Comments Follow-up Reason Comments Back Pain Patient presents tod ay with a diagnosis of lumbar neuritis and DDD lumbosacral fracture. Pain is located in low back and goes to bilateral hips. Specialty Diagnoses / Procedures [facility] Referred To Contact Neurological Surgery / Neurosurgery Diagnoses Lumbar neuritis DDD (degenerative disc disease), lumbosacral Sancho Woodruff MD [address] [place] [address] Bridger Monique MD [facility] [place] [address] Referral ID Status Reason Start Date Expiration Date Visits Re quested Visits Authorized [id number] Closed 02/14/2023 02/14/2024 1 1 Reason Onset Date Comments Medication Refill 04/18/2023 Reason Comments Follow-up 8 month follow up vi sit Specialty Diagnoses / Procedures [facility] Referred To Contact Cardiology Diagnoses PAF (paroxysmal atrial fibrillation) (HCC) Sancho Woodruff MD [address] [place] [address] [facility] [address] [facility] [address] [place] [address] Referral ID Status Reason Start Date Expiration Date V isits Requested Visits Authorized [id number] Closed Specialty Services Required/Cielo ent's Best Interest 01/28/2023 01/28/2024 1 1 Reason Comments Pre-operative Medical Risk Stratificatio n Specialty Diagnoses / Procedures Referred By Contac t Referred To Contact Diagnoses Sacral insufficiency fracture with delayed healing Sacral insufficiency fracture with delayed healing [M84.48XG] Procedures MA ARTHRODESIS SI JOINT PERCUTANEOUS/MIN INVASIVE MA ARTHRODESIS SI JT OPN W/OBTAINING B1 GRF INSTRMJ Bridger Monique MD [address] [facility] [address] [place] [address] Referral ID Status Reason Start Date Expiration Date Visits Re quested Visits Authorized [id number] 05/02/2023 1 1 Reason Comments Wound Check Reason Comments Follow-up Patient states near her incision she is having drainage with burning sensation Reason Comments check spot on leg Reason Comments Post-op Post-op follow up Reason Comments 3 mo CS Specialty Diagnoses / Procedures Referred By Contac t Referred To Contact Primary Care Diagnoses AF (paroxysmal atrial fibrillation) ([facility]) Gastrointestinal hemorrhage, unspecified gastrointestinal hemorrhage type DDD (degenerative disc disease), lumbosacral Lumbar stenosis with neurogenic claudication Mixed hyperlipidemia Procedures Follow Up In Primary Care Sancho Woodruff MD [address] [place] [address] Referral ID Status Reason Start Date Expiration Date V isits Requested Visits Authorized [id number] Authorized 04/05/2023 10/02/2023 1 1 Reason Comments Follow-up Sacroiliac dysfuncti on Reason Onset Date Comments Medication Refill 08/24/2023 Reason Comments Other G57.01 Reason Comments Medicare Annual Wellness Visit [place] t 3 mo CSA Specialty Diagnoses / Procedures Referred By Contac t Referred To Contact Primary Care Diagnoses AF (paroxysmal atrial fibrillation) ([facility]) Gastrointestinal hemorrhage, unspecified gastrointestinal hemorrhage type DDD (degenerative disc disease), lumbosacral Lumbar stenosis with neurogenic claudication Mixed hyperlipidemia Iron deficiency anemia, unspecified iron deficiency anemia type Acquired hypothyroidism Procedures Follow Up In Primary Care Sancho Woodruff MD [address] [place] [address] Referral ID Status Reason Start Date Expiration Date V isits Requested Visits Authorized [id number] Authorized 07/07/2023 01/03/2024 1 1 Reason Comments Injections Left shoulder inject ion Reason Comments Neck Pain Patient presents tod ay with neck pain that travels to back of head on right side, hurts to touch. Pain in neck is worse with movement, so turning head to look both ways, bringing head up or down. Right hand to elbow has been numb off and on Reason Comments Follow-up Patient presents tod ay with right sided head pain in the back of the head. Pressure when lying down is uncomfortable. Achiness in the face on the right. Specialty Diagnoses / Procedures Referred By Contac t Referred To Contact Primary Care Diagnoses AF (paroxysmal atrial fibrillation) (CMS/HCC) Gastrointestinal hemorrhage, unspecified gastrointestinal hemorrhage type DDD (degenerative disc disease), lumbosacral Lumbar stenosis with neurogenic claudication Mixed hyperlipidemia Iron deficiency anemia, unspecified iron deficiency anemia type Acquired hypothyroidism Routine general medical examination at health care facility Acute UTI Procedures Follow Up In Primary Care - Established Sancho Woodruff MD [address] [place] [address] Referral ID Status Reason Start Date Expiration Date V isits Requested Visits Authorized [id number] Authorized 10/13/2023 10/12/2024 1 1 Specialty Diagnoses / Procedures Referred By Contac t Referred To Contact Pain Medicine Diagnoses Cervicalgia Jose A Ornelas, [employer] [address] [facility] [address] [place] [phone] Jaylan Benavides DO [address] [place] [phone] Referral ID Status Reason Start Date Expiration Date Visits Requested Visits Authorized [id number] Closed Patient Preference 12/21/2023 12/20/2024 1 1 Reason Comments Knee Pain left Specialty Diagnoses / Procedures Referred By Contac t Referred To Contact Radiology Diagnoses Acute pain of left knee Procedures XR knee left 4+ views Sancho Woodruff MD [address] [place] [address] Referral ID Status Reason Start Date Expiration Date Visits Requested Visits Authorized [id number] Authorized Perform Procedure 03/12/2024 03/12/2025 1 1 Reason Onset Date Comments Medication Refill 04/19/2024 Reason Comments Follow-up 3 mo CS Specialty Diagnoses / Procedures Referred By Contac t Referred To Contact Primary Care Diagnoses DDD (degenerative disc disease), lumbosacral Lumbar stenosis with neurogenic claudication Closed fracture of sacrum, unspecified portion of sacrum, initial encounter (Multi) Procedures Follow Up In Primary Care - Established Sancho Woodruff MD Phone: tel: fax: Referral ID Status Reason Start Date Expiration Date V isits Requested Visits Authorized [id number] Authorized 04/16/2024 04/16/2025 1 1 Reason Comments Follow-up 3 mo CS Specialty Diagnoses / Procedures Referred By Contac t Referred To Contact Primary Care Diagnoses AF (paroxysmal atrial fibrillation) (Multi) DDD (degenerative disc disease), lumbosacral Lumbar stenosis with neurogenic claudication Procedures Follow Up In Primary Care Sancho Woodruff MD [address] [place] [address] Referral ID Status Reason Start Date Expiration Date V isits Requested Visits Authorized [id number] Authorized 01/16/2024 01/15/2025 1 1 Reason Comments Medication Refill Rosuvastatin Reason Comments Follow-up Overdue 9 months fol low up, Added Eliquis Last lipids 07/11/2023 Reason Comments Medicare Annual Wellness Visit [facility] 3 mo CS Reason Comments Consult Referred by Dr. Estefani admon for skin ulcer. Patient having itching, burning, tenderness with an ulceration area in the inside buttocks crease with a small hole above the rectum x 12/24. Patient using Triamcinolone cream bid that she had for her skin irritations. Denies any bleeding, discharge, constipation or diarrhea. Specialty Diagnoses / Procedures Referred By Contac t Referred To Contact General Surgery Diagnoses Skin ulcer, unspecified ulcer stage (Multi) Sancho Woodruff MD [address] [facility] [address] [place] [address] Phone: tel: fax: Dariela Garza MD [address] [facility] [address] [place] [address] Phone: tel: fax: Referral ID Status Reason Start Date Expiration Date Visits Requested Visits Authorized [id number] Authorized Specialty Services Required 01/01/2025 01/01/2026 1 1 Reason Comments Wound Check FU 2 weeks lance ronald ft open wound with pelvis x-ray on 01-21-25. Patient continuing with dressing changes at [facility] on Tue, Tue and Fridays. Patient having burning, itching, discomfort around the wound are but states wound feels better than what it had. Specialty Diagnoses / Procedures Referred By Mehran alvarenga Referred To Contact Primary Care Diagnoses Lumbar stenosis with neurogenic claudication Controlled drug dependence (Multi) Routine general medical examination at health care facility Skin ulcer, unspecified ulcer stage (Multi) Procedures Follow Up In Primary Care Sancho Woodruff MD [address] [address] Phone: tel: fax: Referral ID Status Reason Start Date Expiration Date V isits Requested Visits Authorized [id number] Authorized 01/01/2025 01/01/2026 1 1 Reason Comments Wound Check FU 1 mos wound check of sacral area. Per patient slight tenderness if sitting on it for long periods, wound his healing and getting smaller. Getting dressing changes at the [facility] with medihoney and medriplex on Tuesday, Tuesday and Tuesday. Reason Comments Wound Check FU 2 weeks for sacra l area wound check, with dressing changes done at [facility] on Mondays and Fridays using Medi Honey and Meriplex. Patient noticing no difference in healing since last week and noticing a small amount of light brownish drainage on the dressing in the mornings when she gets up. Patient does have appt with plastic surgery Dr. Cool in [place] on Tuesday. Reason Comments Consult Referred by Dr. Estefani damon for LUQ pain and CT scan done 04-17-25. Patient having intermittent sharp aching pain that has been increasing x 2 months and can occur at anytime with occasional nausea. Denies vomiting or any problems with bowel movements or urination. Specialty Diagnoses / Procedures Referred By Mehran alvarenga Referred To Contact General Surgery Diagnoses LUQ pain Sancho Woodruff MD [address] [address] Phone: tel: fax: Belen Platt MD [address] [facility] [place] [address] [place] [address] Phone: tel: fax: Referral ID Status Reason Start Date Expiration Date Visits Requested Visits Authorized [id number] Authorized Specialty Services Required 04/19/2025 04/19/2026 1 1 Reason Comments Pain Patient is a new pat ient in the pain clinic today for chief complaint of mid to lower back pain that has been ongoing for years. She states 5-6 months ago she started developing a left sided abdominal pain. She states she has an area the size of a baseball that hurts in her left abdomen. She states Dr. Garza believes her pain is related to her back pain. Patient rates her pain a 5/10 now and a 9/10 at it's worst and describes it as achy and sharp. Reason Comments Telehealth 6 months follow up, Last lipids 04/15/25 Reason Comments Medication Refill Propafenone Reason Comments Pre-op Exam Follow-up 3 mo CS Specialty Diagnoses / Procedures Referred By Mehran t Referred To Contact Diagnoses AF (paroxysmal atrial fibrillation) (Multi) Procedures ECG 12 lead (Clinic Performed) Sancho Woodruff MD [address] [facility] [address] [place] [address] Phone: tel: fax: Referral ID Status Reason Start Date Expiration Date V isits Requested Visits Authorized [id number] Authorized 07/30/2025 07/30/2026 1 1 Josey Uriarte LISW - 11/06/2019 2:45 PM EST Consult Notes (unrecognized section and content) SIMPLE DISCHARGE Date: 11/06/2019 Time: 2:46 PM Patient Name: Alma Echeverria Date of : 1940 Sex: Female Met with the patient and her daughter during [place] on 11/06/2019. The patient is scheduled to have right shoulder reversal surgery with Dr. Hathaway on 11/29/2019. She and her spouse, Harlan, live in a 1 story home with 2 steps and a handrail on the left to enter. The bedroom, bathroom, and laundry are all on the first floor. The bathroom has a tub-shower, with grab bars and a seat. The commode is a standard height but it has a toilet riser with grab bars on top of the commode. The patient is not anticipated to need home care, but if she does, she wants to have [facility]. Verified patient s address and phone number. 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) Anticipated Home Care Needs: None documented in this encounter OR PreOp - Urmila Peralta CNP - 11/06/2019 1:00 PM EST OR Notes (unrecognized secti on and content) ANESTHESIA PREPROCEDURE EVALUATION Physical Exam Airway Mallampati: II TM Distance: >3 FB Neck ROM: full Mouth opening: >[address]: no Cardiovascular Rhythm: regular Pulmonary Breath sounds are clear to auscultation Neurological Mental Status: alert Dental Dental exam is normal and age appropriate Review of Systems / Medical History - No history of anesthetic complications Pulmonary - negative Neurological / Psychological - negative Cardiovascular Positive: hypertension dysrhythmias (AFIB) hyperlipidemia Gastrointestinal / Hepatic / Renal Positive: GERD and liver disease (non alcoholic cirrohisis) Endocrine / Musculoskeletal Positive: arthritis Other Positive: cancer documented in this encounter Pre-Procedure Instructions - Judy Howard RN - 11/06/2019 2:48 PM ESTAssessment & Plan Note - Wang Borges MD - 11/14/2019 6:43 PM EST Miscellaneous Notes (unrecog nized section and content) Preoperative Medication Instructions In preparation for surgery please continue all of your current medications with the following changes: Alma Echeverria Home Medication Instructions Prior to Surgery SHANIQUA:[id number] Printed on:11/06/19 2656 Medication Information Take last dose on Take the morning of surgery Comment(s) AMITIZA 8 mcg capsule amoxicillin (AMOXIL) 500 MG capsule dabigatran (PRADAXA) 150 mg capsule Take 150 mg by mouth 2 (two) times a day. dexlansoprazole (DEXILANT) 30 mg capsule Take 30 mg by mouth daily. diltiazem (CARDIZEM CD) 240 MG 24 hr capsule Take by mouth daily. furosemide (LASIX) 40 MG tablet HYDROcodone-acetaminophen (NORCO) 5-325 mg per tablet HYDROcodone-acetaminophen 2.5-325 mg Tab nitrofurantoin, macrocrystal-monohydrate, (MACROBID) 100 MG capsule polyethylene glycol (MIRALAX) 17 gram powder Take 17 g by mouth daily. traMADol (ULTRAM) 50 mg tablet STOP ( medications that contain aspirin, such as Brittany Kingsley, Pepto-Bismol, Anacin), antiinflammatory medications such as Advil, Motrin, Ibuprofen, Naproxen, Aleve, Brittany Kingsley, Pepto-Bismol, Anacin, Diclofenac, Voltaren, Daypro, Etodolac, Ketoprofen, Piroxicam, Relafen, Nabumetone, etc. Also discontinue Vitamin C, Vitamin E, Theodosia-3 Fatty Acid, Fish Oil or Lovaza, and all herbal medications DIRECTED BY SURGEON. Tylenol (acetaminophen) is acceptable(unless you have an allergy to this medication ), but be careful to follow the label directions and do not use with other pain medications. On the morning of surgery, with as little water as possible, ONLY take the medications listed above in the column Take the morning of surgery. If you are using Eye Drops or Inhalers, please bring them to the hospital. Patient Instructions for [facility]: Prior to surgery: Surgeon's office will contact you with the scheduled time of your surgery. You may use the Pharmacy Tech parking available at the Main Entrance One family member may accompany you back into the Pre-Op Area. Do not eat or drink anything after midnight or as directed, including gum, mints, and cough drops. No smoking after midnight. No alcohol 24 hours prior to your surgery. Please take any medications you have been instructed to take the morning of your surgery with small sips of water. Please be sure to wear comfortable, appropriate clothing. Please remove all jewelry and piercing's, including wedding rings. Leave all valuable items at home. Shower using anti-bacterial soap or as advised by your Surgeon's office Do not apply any makeup or lotions. Remove all nail angolan for surgeries involving extremities. Please remember to bring both your insurance card and a photo ID with you on the day of surgery. After your surgery: If you are having outpatient surgery - you must have a licensed car driver to take you home. The expectation is that this car driver will remain at the hospital for the duration of your procedure. You are advised to have a family member with you for at least 24 hours after being under Anesthesia. If you have sleep apnea and have a CPAP/BIPAP device, please bring it with you the day of surgery. documented in this encounter Associated Problem(s): Preop cardiovascular exam Her functional capacity is reduced. She has risk factors for coronary disease including age, hypertension and a family history of coronary artery disease. Her last stress test was in 2012. I will order a Lexiscan for risk stratification. Associated Problem(s): HTN (hypertension) Blood pressure is well controlled on Cardizem CD 240 mg daily, Lasix 40 mg as needed, no changes Associated Problem(s): Atrial fibrillation (HCC) History of paroxysmal atrial fibrillation, rare symptoms, currently taking Cardizem CD 240 mg daily, Pradaxa 150 mg twice daily. She does not feel her symptoms are significant to warrant a medication change. Continue current regimen given elevated cardioembolic risk. She will be able to hold Pradaxa without a Lovenox bridge as she has never had a documented neurologic event. documented in this encounter Seen in [place] to Home post discharge and reviewed AVS. Verbalized understanding and denies further needs. Given My chart information Plan of care initiated Problem: Pain Goal: Manage acute pain Note: [place] is ordered as needed for the management of right shoulder pain secondary to right reverse total shoulder. Problem: Falls, Risk of Goal: Absence of falls Note: Falls precautions remain in place with bed in lowest position, call light in reach and frequent rounding. Patient uses call light appropriately. Problem: Plan for Discharge Goal: Knowledge of discharge plan and instructions Note: Patient is from home with her and plans to return home when meets discharge criteria. Probable for Tuesday the . s PREOPERATIVE DIAGNOSE Right shoulder rotator cuff tear arthropathy. POSTOPERATIVE DIAGNOSIS Right shoulder rotator cuff tear arthropathy. PROCEDURE Reverse right total shoulder replacement. ANESTHESIA General. COMPLICATIONS No intraoperative complications. SPECIMENS Bone. ESTIMATED BLOOD LOSS 200 mL. HISTORY Alma is a 78-year-old patient with a right shoulder rotator cuff tear arthropathy unresponsive to conservative measures. For further details, see admission history and physical examination. Explained all the risks and complications of surgery, including but not limited to, the risk of infection, bleeding, neurologic or vascular injury, possibility of deep venous thrombosis, pulmonary embolism, myocardial infarction, stroke, or even with surgery. Explained the possibilities of continued pain, stiffness, loss of range of motion as well as the need for future surgery. Given all the options of anesthetic per the anesthesia team and at this point in time elected for a general anesthetic. We also talked about her history of paroxysmal atrial fibrillation and Pradaxa use. She understood the increased risks and complications and at this point in time consented for surgery. DESCRIPTION OF PROCEDURE Patient was met in the preoperative holding area. The right shoulder was confirmed to be the appropriate site and marked by myself. Patient was taken to the operative suite, given preoperative Kefzol per protocol as well as a general anesthetic. She was placed in the beach chair position. At this point in time, right upper extremity was then sterilely prepped and draped using a ChloraPrep solution as well as InteguSeal. After sterilization of the right shoulder, we did our final time-out to confirm that the right shoulder was in fact the appropriate site that had been marked by myself. At this time, we then went ahead and proceeded forward with doing an anterior deltopectoral approach. We placed our deep retractors. At this point in time, we then went ahead and proceeded forward with identifying the anterior subscapularis and capsule. There was no significant discernible rotator cuff of the supraspinatus. At this time, I was surprised how poor quality the subscapularis and capsule were. At this point in time, we resected it off the anterior humerus, tagged it for later repair and at this time did our proximal humeral osteotomy cut. We then went ahead and proceeded forward with placing our deep retractors and prepared the glenoid. At this time, we then went ahead, and after preparation of the glenoid, injected our first series of local anesthetic around the glenoid. We then went ahead and did antibiotic irrigation. We then went ahead and placed our glenoid baseplate with a 24-mm stent centered screw as well as two 24-mm screws, one proximal and one distal, and two 16-mm screws, one anterior and one posterior. After the glenoid was secure, we went ahead and used a 32 x 6 lateral offset glenoid sphere. This was then secured. After the securing of the glenoid sphere, we did x-rays to confirm good positioning. We then went to the humerus, did sequential broaching, and settled on a size 10 ReUnion press-fit stem. We placed the ReUnion stem, did sequential reductions, and settled on 32 x 4 polyethylene, which gave us excellent stability with full range of motion. After the implant selection on the humeral metaphyseal side, I went ahead at this time and did irrigation. I then placed my final 32 metaphysis component with a 32 polyethylene liner. Shoulder was reduced. X-rays were confirmed to be in excellent position with no evidence of a fracture. We then went ahead at this time and proceeded forward with a final antibiotic irrigation, sprinkled 1 g of vancomycin powder throughout the contact surface areas of the right shoulder. We then went ahead and proceeded forward with closing the anterior subscapularis and capsule using Orthocord suture. Final series of local was injected around the proximal humerus. After the final irrigation, the 2-0 Vicryl, and skin tyson were used on skin. Exofin was placed on the wound as well as a sterile Mepilex dressing. Patient was then extubated, taken to PACU without intraoperative complication. D 11/29/2019 18:03 [id number] T 11/29/2019 18:36 MCB/MODL Brief Post Operative Note Patient Name: Alma Echeverria : 1940 (78 y.o.) Date of Service: 11/29/2019 CSN: [id number] Procedure(s): Reverse right total shoulder replacement Pre-Operative Diagnoses: * Rotator cuff disorder, right [M67.911] Post-Operative Diagnoses: * Same as Pre-Op Diagnosis * Rotator cuff disorder, right [M67.911] Surgeon(s) and Role: * Dada Hathaway MD - Primary Anesthesiologist: Americo Landa MD NON CDL DRIVER: Sana Kimble CRNA; Leslee Hassan CRNA Edger Runner: Belen Helton RN Machine Lead Burner: Archana Mar, TECHNOLOGIST Scrub Person Relief: ST Daksha Scrub Person: ST Luke Civil Manager: Gloria Hernandez Scrub Person Assist: Rosie Madrigal RN Location Analyst: ST Nohemy Operative findings: see preop Intra and immediate post-operative complications: none Type of anesthesia used: General Estimated blood loss: 200 mL Estimated urine output: Refer to surgical log Specimen(s): ID Type Source Tests Collected by Time Destination A : Right Humeral Head Bone Humerus, Right TISSUE EXAM Dada Hathaway MD 11/29/2019 1630 Implant(s): Implant Name Type Inv. Item Serial No. Test Deskman Lot No. LRB No. Used Action BASEPLATE 28MM GLENOID REUNION RSA - [id number] BASEPLATE 28MM GLENOID [place]ION [place] [id number] Right 1 Implanted SCREW 6.5 X 24MM CENTER REUNION RSA - [id number] SCREW 6.5 X 24MM CENTER REUNION RSA SAMIR OR [id number] Right 1 Implanted SCREW 4.5 X 24MM PERIPHERAL REUNION RSA - [id number] SCREW 4.5 X 24MM PERIPHERAL REUNION RSA SAMIR OR [id number] Right 2 Implanted GLENOSPHERE 6 X 32MM CONCENTRIC REUNION RSA - [id number] GLENOSPHERE 6 X 32MM CONCENTRIC REUNION [place] SAM[place] [id number] Right 1 Implanted SCREW 4.5 X 16MM PERIPHERAL REUNION RSA - [id number] SCREW 4.5 X 16MM PERIPHERAL REUNION RSA SAMIR OR [id number] Right 1 Implanted SCREW 4.5 X 16MM PERIPHERAL REUNION RSA - [id number] SCREW 4.5 X 16MM PERIPHERAL REUNION RSA SAMIR OR [id number] Right 1 Implanted STEM 10 X 123MM HUMERAL PRESSFIT CAMP-COAT REUNION TSA - [id number] STEM 10 X 123MM HUMERAL PRESSFIT CAMP-COAT REUNION TSA SAMIR OR [id number] Right 1 Implanted CUP 4 X 32MM HUMERAL REUNION RSA - [id number] CUP 4 X 32MM HUMERAL REUNION RSA SAMIR OR [id number] Right 1 Implanted INSERT 4 X 32MM HUMERAL X3 STANDARD REUNION RSA - [id number] INSERT 4 X 32MM HUMERAL X3 STANDARD REUNION RSA SAMIR OR [id number] Right 1 Implanted Drain(s): NG/OG Tube Nasogastric Right nostril (Active) Wound(s): Wound (Inpatient and Home Care Only) 07/30/16 Groin Left;Right (Active) Incision 07/29/16 Abdomen Other (Comment) (Active) Wound 11/29/19 Surgical Wound Shoulder Right (Active) Dada Hathaway MD 11/29/2019 5:55 PM documented in this encounter Scan complete, pt tolerated well. Pt in CT, scan explained and all questions answered. Pt denies taking any Phosphodiesterase Inhibitors documented in this encounter Associated Problem(s): Dyslipidemia I have started atorvastatin 10 mg daily with a target LDL of less than 100 Associated Problem(s): Coronary artery disease involving [place] coronary artery of [place] heart without angina pectoris Coronary artery disease was noted on her coronary CCTA. It was not significant to warrant intervention. Specifically the LAD was 1 to 24% stenosis, circumflex was trivial, RCA shows 25 to 49%. I did review this, she should be on a statin, I will not start her on aspirin given her chronic Pradaxa use. Associated Problem(s): HTN (hypertension) Blood pressure is well controlled on Cardizem CD 240 mg daily, no changes Associated Problem(s): Atrial fibrillation (HCC) History of paroxysmal atrial fibrillation, currently doing well on Pradaxa, she tells me she is taking 75 mg but really the appropriate dose for her renal function is 150 mg twice daily. No real symptoms to warrant adjustments to her medications that also include Cardizem CD 240 mg daily documented in this encounter Dariela Santillan RN - 11/20/2019 9:30 AM Cara Daniels RN - 02/12/2020 10:11 AM Cara Zaman RN - 02/12/2020 9:59 AM Cara Zaman RN - 02/12/2020 9:45 AM EDT Nursing Notes (unrecognized section and content) Resting ECG sinus rhythm. Tolerated lexiscan well, denies CP with medication. documented in this encounter Discharged off STC via wheelchair per RN to Jovany Lopez. exit Discharge instructions reviewed, voiced understanding, copy given Back to room via wheelchair, VS stable, call light within reach, no needs voiced To procedure via wheelchair Medicated with 100mg Metoprolol PO prior to CTA documented in this encounter Dada Hathaway MD - 11/29/2019 2:32 PM Dada Flores MD - 11/12/2019 11:34 AM EST H&P Notes (unrecognized sect ion and content) INTERVAL HISTORY AND PHYSICAL Patient Name: Alma Echeverria Admit Date: MR #: [id number] : 1940 The H&P has been reviewed and the patient has been examined. I concur with the findings of the H&P. There are no significant changes. It is appropriate to proceed with the planned procedure. Dada Hathaway MD 11/29/2019 2:32 PM Marquez comes in today for preoperative consultation regarding her rotator cuff tear arthropathy of the right shoulder. She is looking forward to the surgery. Tired of the pain. Tired of the discomfort. She has tried pills, shots, and physical therapy with no relief whatsoever, and at this time, she has exhausted all conservative measures. ALLERGIES History of allergies to tape, ibuprofen, latex, nylon, and codeine as well as Flexeril. MEDICATION LIST She is currently taking Amitiza, aspirin, Pradaxa, Dexilant, Cardizem, Lasix, p.r.n. tramadol, nitrofurantoin, p.r.n. MiraLAX. PAST SURGICAL HISTORY She had foot surgery. She has had knee replacement, hip replacement both by me, gallbladder surgery, bowel surgery, hysterectomy, tonsillectomy, appendectomy. PAST MEDICAL HISTORY Illnesses include squamous cell skin cancer, liver cirrhosis, ulcerative colitis, history of paroxysmal atrial fibrillation and premature atrial contractions. REVIEW OF SYSTEMS Abdominal pain, kidney stones, blood transfusion, numbness in the arms, weakness in the arms and legs, constipation, shortness of breath with exertion, fatigue, tiredness. SOCIAL HISTORY She is retired, does not smoke, does not drink. FAMILY HISTORY Positive for cancer, heart attack, and stroke. IMAGING X-ray examination of the right shoulder reveals end-stage proximal migration of the humeral head. PHYSICAL EXAM General: She is awake, alert, oriented x3. Ambulates without assistive device. HEENT: She is normocephalic. Chest: Clear. Heart: Regular. Has an occasional PAC. Abdomen: Obese, soft, nontender. Musculoskeletal: Both upper extremities neurologically intact with 2+ pulses. Skin is intact without lesions. Right shoulder has 80 degrees of abduction. She has 80 degrees of forward flexion. Global weakness throughout the rotator cuff. IMPRESSION Right shoulder rotator cuff tear arthropathy. PLAN Today, we have talked about all options. I did a narcotics review on this patient. She received a 23-day supply of tramadol on 10/19/2019. At this time, I have discussed all of the treatment options with the patient. The patient was part of the entire decision-making process. I have informed her we will be using the [place] reverse total shoulder replacement system. We will proceed forward with a right reverse total shoulder replacement. All risks and complications were discussed. documented in this encounter Care Teams (unrecognized sec tion and content) Transfer Station Attendant Relationship Specialty Start Date End Date Sancoh Woodruff MD PCP - General Family Medicine 05/13/15 Haroon Quintanilla MD Consulting Physician Cardiology 08/24/16 Americo Lee MD Consulting Physician Urologic Surgery 08/24/16 Denisse Streeter CNP Nurse Practitioner Gastroenterology 04/26/17 Transfer Station Attendant Relationship Specialty Start Date End Date Sancho Woodruff MD PCP - General Family Medicine 05/13/15 Haroon Quintanilla MD Consulting Physician Cardiology 08/24/16 Americo Lee MD Consulting Physician Urologic Surgery 08/24/16 Denisse Streeter, [employer] Nurse Practitioner Gastroenterology 04/26/17 Transfer Station Attendant Relationship Specialty Start Date End Date Sancho Woodruff MD PCP - General Family Medicine 05/13/15 Haroon Quintanilla MD Consulting Physician Cardiology 08/24/16 Americo Lee MD Consulting Physician Urologic Surgery 08/24/16 Denisse Streeter, [employer] Nurse Practitioner Gastroenterology 04/26/17 Transfer Station Attendant Relationship Specialty Start Date End Date Sancho Woodruff MD PCP - General Family Medicine 05/13/15 Haroon Quintanilla MD Consulting Physician Cardiology 08/24/16 Americo Lee MD Consulting Physician Urologic Surgery 08/24/16 Denisse Streeter, [employer] Nurse Practitioner Gastroenterology 04/26/17 Transfer Station Attendant Relationship Specialty Start Date End Date Sancho Woodruff MD PCP - General Family Medicine 05/13/15 Haroon Quintanilla MD Consulting Physician Cardiology 08/24/16 Americo Lee MD Consulting Physician Urologic Surgery 08/24/16 Denisse Streeter, [employer] Nurse Practitioner Gastroenterology 04/26/17 Transfer Station Attendant Relationship Specialty Start Date End Date Sancho Woodruff MD PCP - General Family Medicine 05/13/15 Haroon Quintanilla MD Consulting Physician Cardiology 08/24/16 Americo Lee MD Consulting Physician Urologic Surgery 08/24/16 Denisse Streeter, [employer] Nurse Practitioner Gastroenterology 04/26/17 Transfer Station Attendant Relationship Specialty Start Date End Date Sancho Woodruff MD PCP - General Family Medicine 05/13/15 Haroon Quintanilla MD Consulting Physician Cardiology 08/24/16 Americo Lee MD Consulting Physician Urologic Surgery 08/24/16 Denisse Streeter, [employer] Nurse Practitioner Gastroenterology 04/26/17 Transfer Station Attendant Relationship Specialty Start Date End Date Sancho Woodruff MD PCP - General Family Medicine 05/13/15 Haroon Quintanilla MD Consulting Physician Cardiology 08/24/16 Americo Lee MD Consulting Physician Urologic Surgery 08/24/16 Denisse Streeter, [employer] Nurse Practitioner Gastroenterology 04/26/17 Transfer Station Attendant Relationship Specialty Start Date End Date Sancho Woodruff MD PCP - General Family Medicine 05/13/15 Haroon Quintanilla MD Consulting Physician Cardiology 08/24/16 Americo Lee MD Consulting Physician Urologic Surgery 08/24/16 Denisse Streeter, [employer] Nurse Practitioner Gastroenterology 04/26/17 Transfer Station Attendant Relationship Specialty Start Date End Date Sancho Woodruff MD PCP - General Family Medicine 05/13/15 Haroon Quintanilla MD Consulting Physician Cardiology 08/24/16 Americo Lee MD Consulting Physician Urologic Surgery 08/24/16 Denisse Streeter, [employer] Nurse Practitioner Gastroenterology 04/26/17 Transfer Station Attendant Relationship Specialty Start Date End Date Sancho Woodruff MD PCP - General Family Medicine 05/13/15 Haroon Quintanilla MD Consulting Physician Cardiology 08/24/16 Americo Lee MD Consulting Physician Urologic Surgery 08/24/16 Denisse Streeter, [employer] Nurse Practitioner Gastroenterology 04/26/17 Transfer Station Attendant Relationship Specialty Start Date End Date Sancho Woodruff MD [address] [facility] [address] PCP - General 08/10/19 Sancho Woodruff MD [address] [place] [address] [facility] Attributed Provider 10/10/21 Magalis Ramírez, machining technicianHorse Trainer 01/24/23 Transfer Station Attendant Relationship Specialty Start Date End Date Sancho Woodruff MD [address] [place] [address] PCP - General 08/10/19 Sancho Woodruff MD [address] [place] [address] [facility] Attributed Provider 10/10/21 Magalis Ramírez, machining technicianHorse Trainer 01/24/23 Transfer Station Attendant Relationship Specialty Start Date End Date Sancho Woodruff MD PCP - General Family Medicine 05/13/15 Haroon Quintanilla MD Consulting Physician Cardiology 08/24/16 Aemrico Lee MD Consulting Physician Urologic Surgery 08/24/16 Denisse Streeter, [employer] Nurse Practitioner Gastroenterology 04/26/17 Transfer Station Attendant Relationship Specialty Start Date End Date Sancho Woodruff MD PCP - General Family Medicine 05/13/15 Haroon Quintanilla MD Consulting Physician Cardiology 08/24/16 Americo Lee MD Consulting Physician Urologic Surgery 08/24/16 Dneisse Streeter, [employer] Nurse Practitioner Gastroenterology 04/26/17 Transfer Station Attendant Relationship Specialty Start Date End Date Sancho Woodruff MD PCP - General Family Medicine 05/13/15 Haroon Quintanilla MD Consulting Physician Cardiology 08/24/16 Americo Lee MD Consulting Physician Urologic Surgery 08/24/16 Denisse Streeter, [employer] Nurse Practitioner Gastroenterology 04/26/17 Transfer Station Attendant Relationship Specialty Start Date End Date Sancho Woodruff MD [address] [place] [address] PCP - General Family Medicine 05/13/15 Haroon Quintanilla MD [address] [address] Consulting Physician Cardiology 08/24/16 Americo Lee MD [address] [phone] Consulting Physician Urologic Surgery 08/24/16 Denisse Streeter, [employer] [address] [facility] [place] [address] Nurse Practitioner Gastroenterology 04/26/17 Transfer Station Attendant Relationship Specialty [place] [address] [place], [place] [phone] PCP - General Family Medicine 05/13/15 [place] [address] [place] [address] Consulting Physician Cardiology 08/24/16 Americo Lee MD [address] [phone] Consulting Physician Urologic Surgery 08/24/16 Denisse Streeter, [employer] [address] [facility] [place] [address] Nurse Practitioner Gastroenterology 04/26/17 Transfer Station Attendant Relationship Specialty Start Date End Date Sancho Woodruff MD [address] [place] [address] PCP - General Family Medicine 05/13/15 Haroon Quintanilla MD [address] [address] Consulting Physician Cardiology 08/24/16 Americo Lee MD [address] [phone] Consulting Physician Urologic Surgery 08/24/16 Denisse Streeter, [employer] [address] [place] [address] Nurse Practitioner Gastroenterology 04/26/17 Transfer Station Attendant Relationship Specialty Start Date End Date Sancho Woodruff MD [address] [place], [place] [phone] PCP - General Family Medicine 05/13/15 [place] [address] [place] [address] Consulting Physician Cardiology 08/24/16 Americo Lee MD [address] [phone] Consulting Physician Urologic Surgery 08/24/16 Denisse Streeter, [employer] [address] [place] [address] Nurse Practitioner Gastroenterology 04/26/17 Transfer Station Attendant Relationship Specialty Start Date End Date Sancho Woodruff MD [address] [place] [address] PCP - General Family Medicine 05/13/15 Haroon Quintanilla MD [address] [address] Consulting Physician Cardiology 08/24/16 Americo Lee MD 2212 [facility] 230 [place] [phone] Consulting Physician Urologic Surgery 08/24/16 Denisse Streeter, [employer] [address] [place] [address] Nurse Practitioner Gastroenterology 04/26/17 Transfer Station Attendant Relationship Specialty Start Date End Date Sancho Woorduff MD [address] [place] [id number] PCP - General Family Medicine 05/13/15 Haroon Quintanilla MD [address] [place] [address] Consulting Physician Cardiology 08/24/16 Americo Lee MD [facility] [place] [phone] Consulting Physician Urologic Surgery 08/24/16 Denisse Streeter, [employer] [address] [place] [address] Nurse Practitioner Gastroenterology 04/26/17 Transfer Station Attendant Relationship Specialty Start Date End Date Sancho Woodruff MD [address] [place] [id number] PCP - General 08/10/19 Sancho Woodruff MD [address] [place] [id number] PCP - [facility] ACO Attributed Provider 10/10/21 Transfer Station Attendant Relationship Specialty Start Date End Date Sancho Woodruff MD [address] [place] [id number] PCP - General 08/10/19 Sancho Woodruff MD [address] [place] [id number] PCP - [facility] ACO Attributed Provider 10/10/21 Transfer Station Attendant Relationship Specialty Start Date End Date Sancho Woodruff MD [address] [place] [id number] PCP - General Family Medicine 05/13/15 Haroon Quintanilla MD 1325 [facility] 240 [place] [address] Consulting Physician Cardiology 08/24/16 Americo Lee MD 2212 [facility] 230 [place] [phone] Consulting Physician Urologic Surgery 08/24/16 Denisse Streeter [employer] [address] [place] [address] Nurse Practitioner Gastroenterology 04/26/17 Transfer Station Attendant Relationship Specialty Start Date End Date Sancho Woodruff MD [address] [place] [id number] PCP - General 08/10/19 Sancho Woodruff MD [address] [place] [id number] PCP - [facility] ACO Attributed Provider 10/10/21 Magalis Ramírez, machining technicianHorse Trainer 01/24/23 05/04/23 Transfer Station Attendant Relationship Specialty Start Date End Date Sancho Woodruff MD [address] [place] [address] PCP - General 08/10/19 Sancho Woodruff MD [address] [place] [address] [facility] Attributed Provider 10/10/21 Magalis Ramírez RN Care Horse Trainer 01/24/23 05/04/23 Transfer Station Attendant Relationship Specialty Start Date End Date Sancho Woodruff MD [address] [place] [address] PCP - General 08/10/19 Sancho Woodruff MD [address] [place] [address] PCP - [facility] ACO Attributed Provider 10/10/21 Transfer Station Attendant Relationship Specialty Start Date End Date Sancho Woodruff MD [address] [place] [address] PCP - General Family Medicine 05/13/15 Haroon Quintanilla MD 1325 [facility] 240 [place] [address] Consulting Physician Cardiology 08/24/16 Americo Lee MD 2212 [facility] [address] [place] [phone] Consulting Physician Urologic Surgery 08/24/16 Denisse Streeter, [employer] [address] [place] [address] Nurse Practitioner Gastroenterology 04/26/17 Transfer Station Attendant Relationship Specialty Start Date End Date Sancho Woodruff MD [address] [place] [id number] PCP - General Family Medicine 05/13/15 Haroon Quintanilla MD [address] [address] Consulting Physician Cardiology 08/24/16 Americo Lee MD [address] [phone] Consulting Physician Urologic Surgery 08/24/16 Denisse Streeter, [employer] [address] [place] [address] Nurse Practitioner Gastroenterology 04/26/17 Transfer Station Attendant Relationship Specialty Start Date End Date Sancho Woodruff MD [address] [place], [place] [phone] PCP - General Family Medicine 05/13/15 Haroon Quintanilla MD [address] [address] Consulting Physician Cardiology 08/24/16 Americo Lee MD [address] [phone] Consulting Physician Urologic Surgery 08/24/16 Denisse Streeter, [employer] [address] [place] [address] Nurse Practitioner Gastroenterology 04/26/17 Transfer Station Attendant Relationship Specialty Start Date End Date Sancho Woodruff MD [address] [place] [address] PCP - General 08/10/19 Sancho Woodruff MD [address] [place] [id number] PCP - [facility] ACO Attributed Provider 10/10/21 Transfer Station Attendant Relationship Specialty Start Date End Date Sancho Woodruff MD [address] [place] [id number] PCP - General Family Medicine 05/13/15 Haroon Quintanilla MD [address] [address] Consulting Physician Cardiology 08/24/16 Americo Lee MD [address] [phone] Consulting Physician Urologic Surgery 08/24/16 Denisse Streeter CNP [address]00 [place] [address] Nurse Practitioner Gastroenterology 04/26/17 Transfer Station Attendant Relationship Specialty Start Date End Date Sancho Woodruff MD [address]108 [place] [address] PCP - General 08/10/19 Sancho Woodruff MD [address] [place] [address] [facility] Attributed Provider 10/10/21 Transfer Station Attendant Relationship Specialty Start Date End Date Sancho Woodruff MD [address] [place] [address] PCP - General 08/10/19 Sancho Woodruff MD [address] [place] [address] PCP - [facility] ACO Attributed Provider 10/10/21 Transfer Station Attendant Relationship Specialty Start Date End Date Sancho Woodruff MD [address] [place] [address] PCP - General Family Medicine 05/13/15 Haroon Quintanilla MD [address] [address] Consulting Physician Cardiology 08/24/16 Americo Lee MD 2212 [facility] 230 [place] [phone] Consulting Physician Urologic Surgery 08/24/16 Denisse Streeter [employer] [address] [place] [address] Nurse Practitioner Gastroenterology 04/26/17 Transfer Station Attendant Relationship Specialty Start Date End Date Sancho Woodruff MD [address] [place] [id number] PCP - General Family Medicine 05/13/15 Haroon Quintanilla MD [address] [address] Consulting Physician Cardiology 08/24/16 Americo Lee MD [address] [phone] Consulting Physician Urologic Surgery 08/24/16 Denisse Streeter CNP [address]00 [place] [address] Nurse Practitioner Gastroenterology 04/26/17 Transfer Station Attendant Relationship Specialty Start Date End Date Sancho Woodruff MD [address] [place] [phone] PCP - General Family Medicine 05/13/15 [place] [address] [place] [address] Consulting Physician Cardiology 08/24/16 Americo Lee MD [address] [phone] Consulting Physician Urologic Surgery 08/24/16 Denisse Streeter [employer] [address] [place] [address] Nurse Practitioner Gastroenterology 04/26/17 Transfer Station Attendant Relationship Specialty Start Date End Date Sancho Woodruff MD [address] [address] PCP - [facility] ACO Attributed Provider 10/10/21 Sancho Woodruff MD [address] [address] PCP - General Family Medicine 08/13/24 Transfer Station Attendant Relationship Specialty Start Date End Date Sancho Woodruff MD [address] [place] [id number] PCP - General 08/10/19 Sancho Woodruff MD [address] [place] [id number] [facility] Attributed Provider 10/10/21 Transfer Station Attendant Relationship Specialty Start Date End Date Sancho Woodruff MD [address] [place] [id number] PCP - General Family Medicine 05/13/15 Haroon Quintanilla MD [address] [address] Consulting Physician Cardiology 08/24/16 Americo Lee MD [address] [phone] Consulting Physician Urologic Surgery 08/24/16 Denisse Streeter [employer] [address] [place] [address] Nurse Practitioner Gastroenterology 04/26/17 Transfer Station Attendant Relationship Specialty Start Date End Date Sancho Woodruff MD [address]108 [place] [address] PCP - General Family Medicine 05/13/15 Haroon Quintanilla MD [address] [address] Consulting Physician Cardiology 08/24/16 Americo Lee MD 2212 [facility] [address] [place] [phone] Consulting Physician Urologic Surgery 08/24/16 Denisse Streeter, [employer] [address] [place] [address] Nurse Practitioner Gastroenterology 04/26/17 Transfer Station Attendant Relationship Specialty Start Date End Date Sancho Woodruff MD [address] [place], [place] [phone] PCP - General Family Medicine 05/13/15 Haroon Quintanilla MD [address] [address] Consulting Physician Cardiology 08/24/16 Americo Lee MD [address] [phone] Consulting Physician Urologic Surgery 08/24/16 Denisse Streeter, [employer] [address] [place] [address] Nurse Practitioner Gastroenterology 04/26/17 Transfer Station Attendant Relationship Specialty Start Date End Date Sancho Woodruff MD [address] [place] [address] PCP - General Family Medicine 05/13/15 Haroon Quintanilla MD [address] [address] Consulting Physician Cardiology 08/24/16 Americo Lee MD 2212 [facility] [address] [place] [phone] Consulting Physician Urologic Surgery 08/24/16 Denisse Streeter, [employer] [address] [place] [address] Nurse Practitioner Gastroenterology 04/26/17 Transfer Station Attendant Relationship Specialty Start Date End Date Sancho Woodruff MD [address]108 [place] [address] PCP - General Family Medicine 05/13/15 Haroon Quintanilla MD [address] [address] Consulting Physician Cardiology 08/24/16 Americo Lee MD 2212 [facility] [address] [place] [phone] Consulting Physician Urologic Surgery 08/24/16 Denisse Streeter, [employer] [address] [place] [address] Nurse Practitioner Gastroenterology 04/26/17 Transfer Station Attendant Relationship Specialty Start Date End Date Sancho Woodruff MD [address]108 [place] [address] PCP - General Family Medicine 05/13/15 Haroon Quintanilla MD [address] [address] Consulting Physician Cardiology 08/24/16 Americo Lee MD [address] [facility] [address] [place] [phone] Consulting Physician Urologic Surgery 08/24/16 Denisse Streeter, [employer] [address] [place] [address] Nurse Practitioner Gastroenterology 04/26/17 Transfer Station Attendant Relationship Specialty Start Date End Date Sancho Woodruff MD [address] [facility] [address] [place] [phone] PCP - [facility] ACO Attributed Provider 10/10/21 Sancho Woodruff MD [address] [facility] [address] [place] [phone] PCP - General Family Medicine 08/13/24 Transfer Station Attendant Relationship Specialty Start Date End Date Sancho Woodruff MD [address] [facility] [address] [place] [phone] PCP - [facility] ACO Attributed Provider 10/10/21 Sancho Woodruff MD [address] [facility] [address] [place] [phone] PCP - General Family Medicine 08/13/24 Transfer Station Attendant Relationship Specialty Start Date End Date Sancho Woodruff MD [address] [facility] [address] [place] [address] PCP - [facility] ACO Attributed Provider 10/10/21 Sancho Woodruff MD [address] [facility] [address] [place] [address] PCP - General Family Medicine 08/13/24 Transfer Station Attendant Relationship Specialty Start Date End Date Sancho Woodruff MD [address] [facility] [address] [place] [address] PCP - [facility] ACO Attributed Provider 10/10/21 Sancho Woodruff MD [address] [facility] [address] [place] [address] PCP - General Family Medicine 08/13/24 Transfer Station Attendant Relationship Specialty Start Date End Date Sancho Woodruff MD [address] [facility] [address] [place] [address] PCP - [facility] ACO Attributed Provider 10/10/21 Sancho Woodruff MD [address] [facility] [address] [place] [address] PCP - General Family Medicine 08/13/24 Transfer Station Attendant Relationship Specialty Start Date End Date Sancho Woodruff MD [address] [facility] [address] [place] [address] PCP - [facility] ACO Attributed Provider 10/10/21 Sancho Woodruff MD [address] [facility] [address] [place] [address] PCP - General Family Medicine 08/13/24 Transfer Station Attendant Relationship Specialty Start Date End Date Sancho Woodruff MD [address] [facility] [address] [place] [address] PCP - [facility] ACO Attributed Provider 10/10/21 Sancho Woodruff MD [address] [facility] [address] [place] [address] PCP - General Family Medicine 08/13/24 Transfer Station Attendant Relationship Specialty Start Date End Date Sancho Woodruff MD [address] [address] PCP - [facility] ACO Attributed Provider 10/10/21 Sancho Woodruff MD [address] [address] PCP - General Family Medicine 08/13/24 Transfer Station Attendant Relationship Specialty Start Date End Date Sancho Woodruff MD [address] [address] PCP - [facility] ACO Attributed Provider 10/10/21 Sancho Woodruff MD [address] [address] PCP - General Family Medicine 08/13/24 Team Status: Active Member Role/Relationship Status Dates Dr. Sancho Woodruff MD Primary Care Provider Active Team Status: Active Member Role/Relationship Status Dates Dr. Sancho Woodruff MD Primary Care Provider Active Start: April 23, 2025 Dr. Sylvia Cool MD Attending Provider Active Start: April 23, 2025 Dr. Sylvia Cool MD Referring Provider Active Start: April 23, 2025 Dr. Sylvia Cool MD Other Provider Active Star t: April 23, 2025 Team Status: Inactive Member Role/Relationship Status Dates Dr. Sancho Woodruff MD Primary Care Provider Active Start: April 29, 2025 End: May 09, 2025 Dr. Sylvia Cool MD Attending Provider Active Start: April 29, 2025 End: May 09, 2025 Dr. Sylvia Cool MD Referring Provider Active Start: April 29, 2025 End: May 09, 2025 Team Status: Active Member Role/Relationship Status Dates Dr. Sancho Woodruff MD Primary Care Provider Active Start: April 30, 2025 Dr. Sylvia Cool MD Attending Provider Active Start: April 30, 2025 Dr. Sylvia Cool MD Referring Provider Active Start: April 30, 2025 Dr. Sylvia Cool MD Other Provider Active Star t: April 30, 2025 Team Status: Active Member Role/Relationship Status Dates Dr. Sancho Woodruff MD Primary Care Provider Active Start: April 22, 2025 Dr. Sylvia Cool MD Attending Provider Active Start: April 22, 2025 Dr. Sylvia Cool MD Referring Provider Active Start: April 22, 2025 Dr. Sylvia Cool MD Other Provider Active Star t: April 22, 2025 Team Status: Active Member Role/Relationship Status Dates Dr. Sancho Woodruff MD Primary Care Provider Active Start: April 29, 2025 Dr. Sylvia Cool MD Attending Provider Active Start: April 29, 2025 Dr. Sylvia Cool MD Referring Provider Active Start: April 29, 2025 Dr. Sylvia Cool MD Other Provider Active Star t: April 29, 2025 Team Status: Inactive Member Role/Relationship Status Dates Dr. Sancho Woodruff MD Primary Care Provider Active Start: April 29, 2025 End: May 09, 2025 Dr. Sylvia Cool MD Attending Provider Active Start: April 29, 2025 End: May 09, 2025 Dr. Sylvia Cool MD Referring Provider Active Start: April 29, 2025 End: May 09, 2025 Team Status: Active Member Role/Relationship Status Dates Dr. Sancho Woodruff MD Primary Care Provider Active Start: May 20, 2025 Dr. Sylvia Cool MD Referring Provider Active Start: May 20, 2025 Dr. Sylvia Cool MD Other Provider Active Star t: May 20, 2025 Dr. Vineet Singleton MD Attending Provider Active Start: May 20, 2025 Team Status: Inactive Member Role/Relationship Status Dates Dr. Sancho Woodruff MD Primary Care Provider Active Start: May 27, 2025 End: June 09, 2025 Dr. Sylvia Cool MD Attending Provider Active Start: May 27, 2025 End: June 09, 2025 Dr. Sylvia Cool MD Referring Provider Active Start: May 27, 2025 End: June 09, 2025 Team Status: Active Member Role/Relationship Status Dates Dr. Sancho Woodruff MD Primary Care Provider Active Start: May 27, 2025 Dr. Sylvia Cool MD Attending Provider Active Start: May 27, 2025 Dr. Sylvia Cool MD Referring Provider Active Start: May 27, 2025 Dr. Sylvia Cool MD Other Provider Active Star t: May 27, 2025 Transfer Station Attendant Relationship Specialty Start Date End Date Sancho Woodruff MD [address] [address] PCP - [facility] ACO Attributed Provider 10/10/21 Sancho Woodruff MD [address] [address] PCP - General Family Medicine 08/13/24 Transfer Station Attendant Relationship Specialty Start Date End Date Sancho Woodruff MD [address] [place] [phone] PCP - General Family Medicine 05/13/15 Haroon Quintanilla MD [address] [address] Consulting Physician Cardiology 08/24/16 Americo Lee MD 2212 [facility] 230 [place] [phone] Consulting Physician Urologic Surgery 08/24/16 Denisse Streeter [employer] [address] [place] [address] Nurse Practitioner Gastroenterology 04/26/17 Transfer Station Attendant Relationship Specialty Start Date End Date Sancho Woodruff MD [address] [place] [address] PCP - General Family Medicine 05/13/15 Haroon Quintanilla MD 1325 [facility] [facility] [address] [place] [address] Consulting Physician Cardiology 08/24/16 Americo Lee MD [address] [place] [address] Consulting Physician Urologic Surgery 08/24/16 Denisse Streeter, [employer] [address] [facility] [place] [address] Nurse Practitioner Gastroenterology 04/26/17 Team Status: Active Member Role/Relationship Status Dates Dr. Sancho Woodruff MD Primary care physician Active Team Status: Active Member Role/Relationship Status Dates Dr. Sancho Woodruff MD Primary care physician Active Start: April 22, 2025 Dr. Sylvia Cool MD Attending physician Active Start: April 22, 2025 Dr. Sylvia Cool MD Referring Provider Active Start: April 22, 2025 Dr. Sylvia Cool MD Nurse Practitioner Active Start: April 22, 2025 Team Status: Active Member Role/Relationship Status Dates Dr. Sancho Woodruff MD Primary care physician Active Start: April 29, 2025 Dr. Sylvia Cool MD Attending physician Active Start: April 29, 2025 Dr. Sylvia Cool MD Referring Provider Active Start: April 29, 2025 Dr. Sylvia Cool MD Nurse Practitioner Active Start: April 29, 2025 Team Status: Inactive Member Role/Relationship Status Dates Dr. Sancho Woodruff MD Primary care physician Active Start: April 29, 2025 End: May 09, 2025 Dr. Sylvia Cool MD Attending physician Active Start: April 29, 2025 End: May 09, 2025 Dr. Sylvia Cool MD Referring Provider Active Start: April 29, 2025 End: May 09, 2025 Team Status: Active Member Role/Relationship Status Dates Dr. Sancho Woodruff MD Primary care physician Active Start: May 20, 2025 Dr. Sylvia Cool MD Referring Provider Active Start: May 20, 2025 Dr. Sylvia Cool MD Nurse Practitioner Active Start: May 20, 2025 Dr. Vineet Singleton MD Attending physician Active Start: May 20, 2025 Team Status: Inactive Member Role/Relationship Status Dates Dr. Sancho Woodruff MD Primary care physician Active Start: May 27, 2025 End: June 09, 2025 Dr. Sylvia Cool MD Attending physician Active Start: May 27, 2025 End: June 09, 2025 Dr. Sylvia Cool MD Referring Provider Active Start: May 27, 2025 End: June 09, 2025 Team Status: Active Member Role/Relationship Status Dates Dr. Sancho Woodruff MD Primary care physician Active Start: May 27, 2025 Dr. Sylvia Cool MD Attending physician Active Start: May 27, 2025 Dr. Sylvia Cool MD Referring Provider Active Start: May 27, 2025 Dr. Sylvia Cool MD Nurse Practitioner Active Start: May 27, 2025 Team Status: Active Member Role/Relationship Status Dates Dr. Sancho Woodruff MD Primary care physician Active Start: June 18, 2025 Dr. Sylvia Cool MD Attending physician Active Start: June 18, 2025 Dr. Sylvia Cool MD Referring Provider Active Start: June 18, 2025 Dr. Sylvia Cool MD Nurse Practitioner Active Start: June 18, 2025 Team Status: Active Member Role/Relationship Status Dates Dr. Sancho Woodruff MD Primary care physician Active Start: June 28, 2025 Dr. Sylvia Cool MD Attending physician Active Start: June 28, 2025 Dr. Sylvia Cool MD Referring Provider Active Start: June 28, 2025 Team Status: Inactive Member Role/Relationship Status Dates Dr. Sancho Woodruff MD Primary care physician Active Start: July 01, 2025 End: July 09, 2025 Dr. Sylvia Cool MD Attending physician Active Start: July 01, 2025 End: July 09, 2025 Dr. Sylvia Cool MD Referring Provider Active Start: July 01, 2025 End: July 09, 2025 Team Status: Active Member Role/Relationship Status Dates Dr. Sancho Woodruff MD Primary care physician Active Start: July 02, 2025 Dr. Sylvia Cool MD Attending physician Active Start: July 02, 2025 Dr. Sylvia Cool MD Referring Provider Active Start: July 02, 2025 Dr. Sylvia Cool MD Nurse Practitioner Active Start: July 02, 2025 Transfer Station Attendant Relationship Specialty Start Date End Date Sancho Woodruff MD [address] [address] [facility] Attributed Provider 10/10/21 Sancho Woodruff MD [address] [address] PCP - General Family Medicine 08/13/24 Transfer Station Attendant Relationship Specialty Start Date End Date Sancho Woodruff MD [address] [address] [facility] Attributed Provider 10/10/21 Sancho Woodruff MD [address] [address] PCP - General Family Medicine 08/13/24 <item><item> Privacy Markings (unrecogniz ed section and content) Section Author: Ryanne Rosa PROHIBITION ON REDISCLOSURE OF CONFIDENTIAL INFORMATION This notice accompanies a disclosure of information concerning a client made to you with the consent of such client. Section Author: Ryanne Rosa PROHIBITION ON REDISCLOSURE OF CONFIDENTIAL INFORMATION This notice accompanies a disclosure of information concerning a client made to you with the consent of such client. Scheduled Active and Recently Administ ered Medications (unrecognized section and content) Medication Order 05/17/2023 05/18/2023 05/19/2023 ceFAZolin (ANCEF) IVPB 2 g (premix) (COMPLETED) 2,000 mg, Intravenous, at 100 mL/hr, Once, On Patrica 05/19/23 at 0745, For 1 dose, Pre-Procedure, Administer prior to incision., Indication (PRE PROCEDURE): Neurology 15 (Given - Provid er: Dmitri Perry CRNA) Continuous Medication Order 05/17/2023 05/18/2023 05/19/2023 lactated Ringers infusion 100 mL/hr, Intravenous, Continuous, Starting on Patrica 05/19/23 at 1245, PACU (only) 1245 (Due) sodium chloride 0.9% (NS) 75 mL/hr, Intravenous, Continuous, Starting on Patrica 05/19/23 at 0745, Pre-Procedure 0845 (New Bag - Prov ider: Dmitri Perry CRNA)1045 (New Bag - Provider: Dmitri Perry CRNA)1138 (Anesthesia Volume Adjustment - Provider: Glendy Springer CRNA) PRN Medication Order 05/17/2023 05/18/2023 05/19/2023 fentaNYL (SUBLIMAZE) inj syringe 25 mcg 25 mcg, Intravenous, Every 5 min PRN, Pain, Starting on Patrica 05/19/23 at 1151, For 4 doses, PACU (only), [] Do not give more than 100 mcg while in PACU. 1218 (Given - Provid er: Candace You RN)1227 (Given - Provider: Candace You RN) haloperidol lactate (HALDOL) injection 1 mg 1 mg, Intravenous, Once as needed, Nausea or vomiting, Starting on Patrica 05/19/23 at 1151, For 1 dose, PACU (only), Administer if ondansetron (Zofran), promethazine (Phenergan), metoclopromide (REGLAN), prochlorperazine (COMPAZINE) ineffective/not ordered, or as directed by anesthesia, as needed for nausea/vomiting May cause QT interval prolongation. hydrALAZINE (APRESOLINE) injection 5 mg 5 mg, Intravenous, Every 15 min PRN, SBP greater than 160 or DBP greater than 90, Starting on Patrica 05/19/23 at 1151, For 4 doses, PACU (only), [] Do not give more than 20 mg total. [] Hold for HR greater than 100. [] Administer if labetalol or metoprolol ineffective at maximum dose or not ordered. HYDROmorphone (DILAUDID) injection 0.25 mg 0.25 mg, Intravenous, Every 5 min PRN, Pain, Starting on Patrica 05/19/23 at 1151, For 6 doses, PACU (only), Give if fentanyl not effective or not ordered. Do not give more than 1.5 mg total. ipratropium-albuteroL (DUO-NEB) 0.5-2.5 mg/3 ml nebulizer solution 3 mL 3 mL, Inhalation, Once as needed, shortness of breath, Starting on Patrica 05/19/23 at 1151, For 1 dose, PACU (only) labetaloL (NORMODYNE) injection 5 mg 5 mg, Intravenous, Every 5 min PRN, SBP greater than 160 or DBP greater than 90, Starting on Patrica 05/19/23 at 1151, PACU (only), Do not give more than 20 mg total. Hold for HR less than 50. lidocaine 1% (PF) (XYLOCAINE-MPF) 20 mL, BUPivacaine (PF) (MARCAINE) 0.5 % (5 mg/mL) 20 mL injection (CANCELED) As needed, Starting on Patrica 05/19/23 at 1008, Intra-Procedure 1008 (Given - Provid er: Bridger Monique MD) naloxone (NARCAN) injection 0.1 mg(Linked Group 1) 0.1 mg, Intravenous, As needed, opioid reversal, Starting on Patrica 05/19/23 at 1151, PACU (only), [] Mix nalOXone (NARCAN) 0.4 mg (1ml) with 9 mL of Normal Saline to total 10 mL. [] Administer 0.1 mg (2.5ml) IV Push every 2 minutes until respiratory rate is 10 or greater. naloxone (NARCAN) injection 0.4 mg(Linked Group 1) 0.4 mg, Intravenous, As needed, opioid reversal, patient is pulseless, breathless, and unresponsive, Starting on Patrica 05/19/23 at 1151, PACU (only), Call a code first, then administer naloxone dose undiluted IV Push over 30 seconds. ondansetron (ZOFRAN) injection 4 mg 4 mg, Intravenous, Once as needed, nausea, vomiting, Starting on Patrica 05/19/23 at 1151, For 1 dose, PACU (only), Administer first as needed for nausea/vomiting, or as directed by anesthesia prochlorperazine (COMPAZINE) injection 2.5 mg 2.5 mg, Intravenous, Every 15 min PRN, nausea, Starting on Patrica 05/19/23 at 1151, For 2 doses, PACU (only), Administer if ondansetron (Zofran), promethazine (Phenergan), and Metocolopramide (Reglan) ineffective or not ordered, or as directed by anesthesia, as needed for nausea/vomiting Do not give more than 2 doses. sodium chloride (NS) 0.9 % irrigation solution (CANCELED) As needed, Starting on Patrica 05/19/23 at 1136, Intra-Procedure 1136 (Given - Provid er: Bridger Monique MD - Comment: plus 450ml Irrisept) thrombin (recombinant) 10,000 Units, gelatin adsorbable (GELFOAM) 100 cm 1 each topical (CANCELED) As needed, Starting on Patrica 05/19/23 at 1037, Intra-Procedure 1037 (Given - Provid er: Bridger Monique MD - Comment: Used PRN for hemostasis) traMADol (ULTRAM) tablet 50 mg (COMPLETED) 50 mg, Oral, Once as needed, moderate to severe pain, Starting on Patrica 05/19/23 at 1300, For 1 dose 1334 (Given - Provid er: Marisol Garcia RN) Linked Groups Order Group 1: Notify Anesthesiologist (CANCELED) STAT, Until discontinued, Starting on Patrica 05/19/23 at 1152, Until Specified
Notify anesthesiologist immediately if respiratory rate less than or equal to 8 breaths per minute., PACU (only) And naloxone (NARCAN) injection 0.1 mgJump to med 0.1 mg, Intravenous, As needed, opioid reversal, Starting on Patrica 05/19/23 at 1151, PACU (only)
[] Mix nalOXone (NARCAN) 0.4 mg (1ml) with 9 mL of Normal Saline to total 10 mL. [] Administer 0.1 mg (2.5ml) IV Push every 2 minutes until respiratory rate is 10 or greater.
And naloxone (NARCAN) injection 0.4 mgJump to med 0.4 mg, Intravenous, As needed, opioid reversal, patient is pulseless, breathless, and unresponsive, Starting on Patrica 05/19/23 at 1151, PACU (only)
Call a code first, then administer naloxone dose undiluted IV Push over 30 seconds.
Goals (unrecognized section and content) Goals may be documented in a n alternate sectionGoals may be documented in an alternate sectionGoals may be documented in an alternate section FOR RECORDS PERTAINING TO PATIENTS WHO ARE OR HAVE BEEN ENROLLED IN A CHEMICAL DEPENDENCY/SUBSTANCEABUSE PROGRAM, SOME INFORMATION MAY BE OMITTED. This clinical summary was aggregated from multiple sources. Caution should be exercised in using it in the provision of clinical care. This summary normalizes information from multiple sources, and as a consequence, information in this document may materially change the coding, format and clinical context of patient data. In addition, data may be omitted in some cases. CLINICAL DECISIONS SHOULD BE BASED ON THE PRIMARY CLINICAL RECORDS. the grafter [facility]. provides no warranty or guarantee of the accuracy or completeness of information in this document.
--- NOTE | 2025-08-12 06:40 | PCM.PRE.AN2 ---
ASA Classification* ASA Classification ASA Classification: 2 Assessment & Plan Anesthesia* Anesthesia Assessment Anesthesia Assessment: Discussed sedation and/or anesthesia options, risks, benefits, and alternatives with patient/parents/legal guardian/POA. Questions invited. The patient/parents/legal guardian/POA seems to understand and agrees to proceed with anesthesia plan. Reviewed the physical assessment, medical history, allergy history and patient home medications list prior to surgery/procedure/anesthetic and documented any changes. Performed airway and anesthesia risk assessments. Anesthesia Type Anesthesia Type: General Anesthesia Focused Assessment* Airway Assessment Mouth opens: >3 cm Mallampati Score: II Labs Anesthesia Preop lab: CBC WBC, (4.4-11.0) 5.3 K/mm3 05/27/25, 14: RBC, (4.2-5.4) 4.09 M/mm3 L 05/27/25, 14:21 Hgb, (12.0-15.0) 12.2 g/dL 05/27/25, : Hct, (37-47) 37.4 % 05/27/25, 14: Plt Count, (150-450) 161 K/mm3 05/27/25, 14:21 CHEMISTRY Potassium, (3.3-5.1) 4.5 mmol/L 05/27/25, 14:21 Sodium, (133-145) 138 mmol/L 05/27/25, 14:21 BUN, (4-19) 16 mg/dL 05/27/25, 14: Creatinine, (0.70-1.20) 0.64 mg/dL L 05/27/25, : Glucose, (70-99) 86 mg/dL 05/27/25, 14:21 COAG Pre-Assessment Diagnosis/Proposed Procedure Planned Operative Procedure(s): Excision sacral wound with wound vac placement Anesthesia History 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 When Was Last Pacemaker Check QUESTION #4 FULL TEXT: You/Your Family Experience fever (hyperthermia) with Anesthesia Last Oral Intake Last Oral intake: Last Oral Intake NPO since Meds taken in AM with sips of water? 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 boat assembly Female Yes 07/29/25 15:12 HX of Motion Sickness No 07/29/25 15:12 HX of N/V After Surgery No 07/29/25 15:12 Non-Smoker Yes 07/29/25 15:12 Duration of Surgery greater No 07/29/25 15:12 than 60 minutes Number of Risk Factors 2 07/29/25 15:12 PONV Score Moderate Risk 07/29/25 15:12 Height & Weight Height & Weight: Anesthesia: Height & Weight Height 4 ft 10 in 04/22/25 15:01 Respiratory Assessment Respiratory Assessment - supervisor fiberglass boat assembly: Respiratory Tract Infection Hx - supervisor fiberglass boat assembly Hx Respiratory Tract Infection No 07/29/25 15:12 STOP Sleep Apnea STOP Sleep Apnea - supervisor fiberglass boat assembly: STOP Sleep Apnea - supervisor fiberglass boat assembly Hx Hypertension No 07/29/25 15:12 Hx Sleep Apnea No 07/29/25 15:12 CPAP BIPAP Do you snore loudly (louder No 07/29/25 15:12 than talking or can be heard Do you often feel tired/ No 07/29/25 15:12 fatigued/ sleepy during daytime? Has anyone observed you stop No 07/29/25 15:12 breathing during sleep? STOP Results Negative 07/29/25 15:12 QUESTION #5 FULL TEXT : Do you snore loudly (louder than talking or can be heard through closed doors)? 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 Specify any problems Hx of Preganancy in last 3 No 07/29/25 15:12 Months Nurse Filling Out Transfusion VCHRISTIN 07/29/25 15:12 & Questions: Date: 07/29/25 07/29/25 15:12 Time: 15:16 07/29/25 15:12 Patient unable to answer at this time (ie. confused, unrespo /Reproduction History /Reproductive History - supervisor fiberglass boat assembly: /Reproductive Hx- supervisor fiberglass boat assembly Hx Now No 07/29/25 15:12 Gestational Age (in weeks): EDC: Hx Hx Para Hx Section SAB No 07/29/25 15:12 Active Medications Active Medications: Current Medications Generic Name Dose Route Start Last Admin Trade Name Freq PRN Reason Stop Dose Admin Cefazolin Sodium 2 gm/ Sodium 110 mls @ 200 mls/hr 08/12/25 07:30 Chloride IV 08/12/25 08:02 INTRAOP ONE Lactated Ringer's 1,000 mls @ 15 mls/hr 08/12/25 06:15 IV .Q48H SVETLANA PFSH Medical History Post-menopausal Thyroid disease Injury of head and neck Shortness of breath on exertion Cancer Arthritis Anemia Cirrhosis High cholesterol Back pain Difficulty swallowing History of hiatal hernia History of ulceration History of IBS History of diverticulitis Gastric reflux Non-smoker History of edema History of echocardiogram History of stress test Cardiology follow-up encounter History of atrial fibrillation Hx of small bowel obstruction Home Medications ?Medication ?Instructions ?Recorded ?Last Taken ?Type Immucore 1 tab PO/SL DAILY 10/01/21 Unknown History atorvastatin 10 mg tablet 10 mg PO QHS 10/01/21 Unknown History cholecalciferol (vitamin D3) 50 50 mcg PO DAILY 10/01/21 Unknown History mcg (2,000 unit) capsule (Vitamin D3) dabigatran etexilate 150 mg 150 mg PO BID 10/01/21 Unknown History capsule (Pradaxa) dexlansoprazole 60 mg 60 mg PO DAILY 10/01/21 10/08/21 History capsule,biphase delayed release (Dexilant) diltiazem HCl 240 mg 240 mg PO DAILY 10/01/21 10/08/21 History capsule,extended release 24 hr furosemide 40 mg tablet 40 mg PO BID PRN Edema 10/01/21 Unknown History lubiprostone 8 mcg capsule 8 mcg PO BID 10/01/21 Unknown History (Amitiza) milk thistle 150 mg capsule 300 mg PO DAILY 10/01/21 Unknown History multivitamin 1 cap PO DAILY 10/01/21 Unknown History polyethylene glycol 3350 17 gram 17 g PO DAILY 10/01/21 Unknown History oral powder packet (Miralax) levothyroxine 100 mcg tablet 100 mcg PO DAILY 04/22/25 Unknown History naloxone 4 mg/actuation nasal spray 4 mg intranasal PRN 04/22/25 Unknown History tramadol 50 mg tablet 50 mg PO Q6H PRN PRN pain 04/22/25 Unknown History apixaban 2.5 mg tablet (Eliquis) 2.5 mg PO BID 07/29/25 Unknown History propafenone 150 mg tablet 150 mg PO BID 07/29/25 Unknown History Allergy/AdvReac Type Severity Reaction Status Date / Time adhesive tape AdvReac Rash Verified 07/29/25 14:41 NSAIDS (Non-Steroidal AdvReac Nausea Verified 07/29/25 14:41 Anti-Inflamma Surgical History Hx of eye surgery History of ureteroscopy History of esophagogastroduodenoscopy (EGD) Hx of colonoscopy Hx of total shoulder replacement History of bilateral knee arthroplasty Hx of bilateral cataract extraction History of laparoscopic cholecystectomy Hx of laparoscopy Hx of hysterectomy, total Hx of appendectomy Hx of tonsillectomy Social History Smoking Status: Never smoker Review of Systems (Anesthesia) ROS Narrative System reviewed and no additional complaints, except as documented.
--- NOTE | 2025-08-12 07:30 | PRES_PTH ---
PATIENT: GAIL MCPHERSON LOC: MS3 U#:[id number] AGE/SX: 84/F ROOM: MS315 RE08/12/[address]: Dr. Francis Cool MD : 1940 BED: 1 DIS: 08/18/2025 SPEC #: [id number] RECD: 08/12/25 09:24 STATUS: MOSHE REQ #: [id number] MARISELA: 08/12/25 07:[address]: Francis Cool DEPT: SURGICAL PATHOLOGY RECD BY: Romel Renteria ENTERED: 08/12/25 10:00 SP TYPE: PRESS SORE OTHR DR: [facility] Libeatriz Su, [facility] [place], [facility] Elzbieta Mejia, [facility] [place] Counseling MD Dr. Josue Araiza MD Dr. Anita Bellante, MD Dr. Aaron Chokan, MD Dr. Alycia Findlay, MD Dr. Amy S Jolliff, MD Dr. Adam Keating, MD Dr. Amelia Laing, MD Dr. Arun K Mathur, MD Dr. Anson Miedel, MD Dr. Alexander Mosteller, DO MD Dr. Tracy Shepard MD Dr. Chirag Berry, MD Chalon Fike, MD Dr. Caleb Habeck, MD Dr. Christina Miller, MD Dr. Alexandro Dooley Dr., MD Dr. Dana Bonezzi, MD Dr. Daniel Bullard, DPM Dr. Luis M Silva, DO Dr. Jennifer Holt, MD Dr. Zachariah Mays Dr., MD Dr. Dana Schmidt, MD Dr. David E Seals, MD Dr. David Shewmon, MD Dr. Andrea Wells, DO MD Dr. Avery Chandler MD Dr. Eric Smith, MD Dr. Eric Turney, MD Dr. Elizabeth Yu, MD Dr. Holly Wyneski, MD Dr. Janet Dailey, MD Dr. Jeanna Fascione, DPM MD Dr. Chante Arthur MD Dr. Jeffrey Kontak, MD Dr. John K Miller, MD Dr. James Miller, MD Dr. Jonathan Moss, DPM Dr. Mitch Durand, DO MD Dr. Lauro Herrera MD Dr. John E Schinner, MD Dr. James Schuster, MD Dr. James A Slaby, MD Dr. John Strong, MD Dr. Jason Suppan, DPM Dr. Chante Villanueva, MD Dr. Mitch Fabian Dr., DPM Dr. Ellyn Wade, DO MD Dr. Vicky Russell MD Dr. Kelly Kubiak, DPM MD Dr. Moo Carolina MD Dr. Kelly Van, DO Dr. Loren Kirchner, MD Dr. Lapman Lun, MD Dr. Louise Miller, MD Dr. Larry D Sanders, MD Dr. Larry A Stern, MD Dr. Liza D Talampas, MD Dr. Linda Wang, MD Dr. Michael Bortz, MD Dr. Melissa Burgett, MD Dr. Mary Ellen Margocs-DiDonato, D Dr. Mark Elderbrock, MD Dr. Marc Fiorentino, MD Dr. Michael Hughes, MD Dr. Mansour Isckarus, MD Dr. Michael Marshall, DPM DO Dr. Virginia Durham MD Dr. Michael Stencel, MD Dr. Norman Friedman, MD Dr. Nicole Horn, DPM DO Dr. Nelida Ely MD Dr. Paul Masci, DO Dr. Yusuf Pruitt, MD Dr. Ebony Vellanki, MD Dr. Dexter ChenMD Dr. Pedro woodward MD Dr. Robert Hart, MD Dr. Robert Leininger, MD Dr. Robert Lindsay, MD Dr. Phil Dasilva Dr., MD Dr. Robert V Sibilia, MD Dr. Scott Brown, MD Dr. Sharon DiLauro, MD Dr. Sharon Marcanthony, MD Dr. Summer Holmes Mason, MD Dr. Scott Mollison, MD Dr. Stephen Mooney, MD Dr. Steven Murray, MD Dr. Steven Nelson, MD Dr. Srinivasa Satti, MD Dr. Steven L Seese, DO Dr. Steven A Wanek, MD Dr. Sameh Yonan, MD Dr. Teresa Ghazoul, MD Dr. Tai Chi Kwok, MD Dr. Tanmay Panchabhai, MD Dr. Timothy M Playl, MD Dr. Todd Ritzman, MD Dr. Vincent Fiorita, FRANCISS MD Dr. Jigar Timmons MD Dr. William Lago, MD [facility] Mitch Teixeira MD [facility] [employer] WILLIAM Sood NP-Shameka [employer] NORA Merlos PA [facility] Your Dentist Your Doctor Tissues: A - Sacral region B - Sacrum, NOS Procedures: Decalcification bone/plaque Surgery Specimen Level IV HEADER OPERATION: Excision sacral wound with wound vac placement, stage #1 PRE-OP DIAGNOSIS: Skin ulcer of sacral region TISSUE SUBMITTED: A- Sacral wound *rule out cancer*, B- Sacral bone MICROSCOPIC DIAGNOSIS A. Sacral wound, excision: - Cutaneous ulceration, reactive epidermal hyperplasia. Scar. - Negative for malignancy. B. Sacral bone, excision: - Cartilage with scant bone and fatty to fibrotic marrow spaces. - No significant acute inflammation observed. MICROSCOPIC DESCRIPTION Slides are reviewed. GROSS DESCRIPTION Received in 2 formalin containers labeled with the patient's name and date of . Designated as: A. Sacral wound rule out cancer is a 3.4 x 2.7 x 0.8 cm annular portion of galvez-white to yellow soft tissue surfaced by a partially detached, rim of galvez skin. The specimen is devoid of orientation centrally, there is patchy blue dye discoloration of the soft tissue. The presumed, soft tissue resection margin is inked black. The specimen is radially sectioned and entirely submitted in 6 cassettes. B. Sacral bone is a 1.1 x 0.6 x 0.3 cm aggregate of irregular red bone fragments. Entirely submitted in 1 cassette, following decalcification. [place] 08/12/2025 CPT:[id number]
[2025-08-12] MEDS: Lactated Ringers 500 ML IV (07:38)
[2025-08-12] MEDS: Cefazolin 1 GM/5 ML Vial 2 GM IV (07:38)
[2025-08-12] MEDS: Lidocaine 1% (5 ml sdv) 5 ML Vial 6 ML IV (07:43)
--- NOTE | 2025-08-12 07:50 | PCM.HP.STD ---
HPI - General HPI Narrative GAIL MCPHERSON, is a 84 F who presents WITH A SACRAL WOUND. Current Encounter (DATE OF SURGERY H&P UPDATE): I saw and examined the patient this morning in pre-operative holding. We discussed risks and benefits of today's surgery and they would like to proceed. NO CHANGE in health history since last seen and evaluated. Ready to proceed with surgery. [facility] Medical History Post-menopausal Thyroid disease Injury of head and neck Shortness of breath on exertion Cancer Arthritis Anemia Cirrhosis High cholesterol Back pain Difficulty swallowing History of hiatal hernia History of ulceration History of IBS History of diverticulitis Gastric reflux Non-smoker History of edema History of echocardiogram History of stress test Cardiology follow-up encounter History of atrial fibrillation Hx of small bowel obstruction Home Medications ?Medication ?Instructions ?Recorded ?Last Taken ?Type Immucore 1 tab PO/SL DAILY 10/01/21 08/10/25 History atorvastatin 10 mg tablet 10 mg PO QHS 10/01/21 08/10/25 History cholecalciferol (vitamin D3) 50 50 mcg PO DAILY 10/01/21 08/10/25 History mcg (2,000 unit) capsule (Vitamin D3) dabigatran etexilate 150 mg 150 mg PO BID 10/01/21 08/10/25 History capsule (Pradaxa) dexlansoprazole 60 mg 60 mg PO DAILY 10/01/21 08/10/25 History capsule,biphase delayed release (Dexilant) diltiazem HCl 240 mg 240 mg PO DAILY 10/01/21 08/12/25 04:00 History capsule,extended release 24 hr furosemide 40 mg tablet 40 mg PO BID PRN Edema 10/01/21 08/08/25 History lubiprostone 8 mcg capsule 8 mcg PO BID 10/01/21 08/10/25 History (Amitiza) milk thistle 150 mg capsule 300 mg PO DAILY 10/01/21 08/10/25 History multivitamin 1 cap PO DAILY 10/01/21 08/10/25 History polyethylene glycol 3350 17 gram 17 g PO DAILY 10/01/21 08/10/25 History oral powder packet (Miralax) levothyroxine 100 mcg tablet 100 mcg PO DAILY 04/22/25 08/10/25 History naloxone 4 mg/actuation nasal spray 4 mg intranasal PRN 04/22/25 Unknown History tramadol 50 mg tablet 50 mg PO Q6H PRN PRN pain 04/22/25 08/12/25 04:00 History apixaban 2.5 mg tablet (Eliquis) 2.5 mg PO BID 07/29/25 08/08/25 History propafenone 150 mg tablet 150 mg PO BID 07/29/25 08/10/25 History Allergy/AdvReac Type Severity Reaction Status Date / Time adhesive tape AdvReac Rash Verified 08/12/25 07:22 NSAIDS (Non-Steroidal AdvReac Nausea Verified 08/12/25 07:22 Anti-Inflamma Surgical History Hx of eye surgery History of ureteroscopy History of esophagogastroduodenoscopy (EGD) Hx of colonoscopy Hx of total shoulder replacement History of bilateral knee arthroplasty Hx of bilateral cataract extraction History of laparoscopic cholecystectomy Hx of laparoscopy Hx of hysterectomy, total Hx of appendectomy Hx of tonsillectomy Social History Smoking Status: Never smoker Vital Signs Vital Signs Vital Signs: 08/12/25 07:34 08/12/25 07:34 Temperature 98.7 F Temperature Source Temporal Pulse Rate 84 Respiratory Rate 16 Respiratory Pattern Normal Blood Pressure 119/70 Blood Pressure Mean 86 Blood Pressure Source Monitor Blood Pressure Position Semi-Fowlers Blood Pressure Location Left Arm Pulse Ox 96 Oxygen Delivery Method Room Air Weight Weight: 134 lb 7.712 oz Body Mass Index (BMI) 28.0 Physical Exam Narrative Stage 4 sacral wound Assessment & Plan Assessment/Plan (1) Stage 4 skin ulcer of sacral region: PLAN: I talked to the patient extensively about the risks of surgery, including bleeding, infection, damage to surrounding structures, poor scaring, surgical site dehiscence and wound formation, need for wound care, need for repeat operations, failure to obtain the desired result, DVT/PE, and the risks of anesthesia including , including stroke (from low blood pressure/ischemia or clot). The benefits and alternatives of this surgery were also discussed. All of their questions were answered, and they agreed to proceed with surgery. Plan for excision sacral wound and VAC placement
[2025-08-12] MEDS: fentaNYL 100 MCG/2 ML Ampul IV (08:19)
[2025-08-12] MEDS: Lidocaine 1% /Epi 1:100 (20ml) 20 ML Vial (08:30)
[2025-08-12] MEDS: Bupiv/Epi 0.25% 30 ML Vial (08:30)
--- NOTE | 2025-08-12 08:48 | PCM.POST.ANE ---
Anesthesia: Postop Eval I Current Vital Signs Temperature: 97.8 F Pulse Rate: 69 Blood Pressure: 106/58 Respiratory Rate: 16 Pulse Ox: 90 Assessment Airway patent: Yes Spontaneous unlabored respirations: Yes nausea: No Vomiting: No Anesthesia Complication: No Fluid Hydration Crystalloid volume administer (ml): 500 Total IV fluid infused: 500 Progress Note Anesthesia document: Postop Eval 1 completed: Yes
--- NOTE | 2025-08-12 08:53 | OP.PCM_ITS ---
Operative Report (Standard) Operative Information Date of Procedure: 08/12/25 Pre-Operative Diagnosis: Stage IV sacral wound Post-Operative Diagnosis: Stage IV sacral wound Surgery/Procedure Performed: 1) excision of stage IV sacral wound, 3 x 3 cm and 2 cm deep with excision of bone 2) irrigating wound VAC placement sacral wound, 9 cm? manager housekeeping: Yes Social Welfare Administrator: Shannen Christian Tasks completed by finance assistant: Retracting Type of Anesthesia: General/Supplemental (20 cc of 50-50 mixture of quarter percent Marcaine and 1% lidocaine both with 1-200,000 epinephrine) RN Documented Start/Stop Times: Operation Date: 08/14/25 07:30 <No data on this case meets the specified criteria> Procedure Start Time: 07:50 Procedure Stop Time: 08:30 Select all DRAINS/GRAFTS/IMPLANTS that apply: None Estimated Blood Loss: 5 cc Specimen collected: Yes Description of specimen(s) removed: Sacral ulcer for pathology, deep soft tissue cultures, bone cultures, bone for pathology Description of surgery: Indications: Alma Echeverria is a delightful 84-year-old female with a stage IV sacral ulcer. I talked her about the risks, benefits, and alternatives to debridement. She elected to proceed. Procedure details: Patient was correct identified in preoperative holding and taken back to the operating room where she was administered general anesthesia and carefully placed in the right lateral decubitus position with an axillary roll, with care taken to pad all bony prominences and keep the nerves protected. She was prepped and draped in sterile fashion and a proper timeout was performed. Methylene blue was used (placed in the base of the wound) to ensure that all the wound was excised. The above local solution was injected and given time to take effect. A 10 blade scalpel was used to excise the ulcer full-thickness and a ileana-shaped pattern around the edges, and the ulcer was sent to pathology. A rongeur was used to debride the deep aspects of the presacral fascia and the exposed sacral bone. Deep soft tissue cultures were taken with a clean rongeur, and deep sacral bone cultures were taken with a clean rongeur. The wound was then irrigated with Irrisept and copious amounts (3 L) of normal saline. Hemostasis was obtained with Bovie electrocautery. An irrigating wound VAC was applied. This was a total excision of sacral wound including bone of 3 x 3 cm, with 9 cm? wound VAC application (not a disposable VAC). Postoperative plan: Infectious disease consultation with follow-up of wound cultures. Plan to place on empiric antibiotics. Plan for closure in 2 days in the operating room after serial irrigation by the irrigating wound VAC (vera flow). Surgical Findings: Wound extended down to bone after superficial slough was debrided (full- thickness down to bone/exposed bone at the base) Complications Complications: No
--- NOTE | 2025-08-12 09:51 | POSTOPAN2_ITS ---
Anesthesia Postop Eval I Sum Postop Eval Completion status Anesthesia document: Postop Eval 1 completed: Yes Anesthesia Postop Eval I Summary Anesthesia Postop Eval I Summary: Anesthesia Postop Eval I: Assessment Summary Airway patent Yes 08/12/25 08:48 SALES [email or web address] [email or web address] Spontaneous unlabored Yes 08/12/25 08:48 SALES DEVELOPMENT [email or web address] respirations Mental status nausea No 08/12/25 08:48 SALES DEVELOPMENT [email or web address] Vomiting No 08/12/25 08:48 SALES DEVELOPMENT [email or web address] Anesthesia Postop Eval I: Fluid Summary Crystalloid volume administer 500 08/12/25 08:48 SALES DEVELOPMENT [email or web address] (ml) Colloids volume administered ( ml) Blood Product volume administered (ml) Total IV fluid infused 500 08/12/25 08:48 SALES DEVELOPMENT [email or web address] Anesthesia Postop Eval I: Summary Notes Anesthesia Complication No 08/12/25 08:48 SALES DEVELOPMENT [email or web address] Anesthesia Complication Comment: Post-operative progress note Anesthesia: Postop Eval II Evaluation Mental status: Awake Pain Level: 0 nausea: No Vomiting: No
--- NOTE | 2025-08-12 09:51 | PCM.POSTANE2 ---
Anesthesia Postop Eval I Sum Postop Eval Completion status Anesthesia document: Postop Eval 1 completed: Yes Anesthesia Postop Eval I Summary Anesthesia Postop Eval I Summary: Anesthesia Postop Eval I: Assessment Summary Airway patent Yes 08/12/25 08:48 SQL [email or web address] Spontaneous unlabored Yes 08/12/25 08:48 SQL [email or web address] respirations Mental status nausea No 08/12/25 08:48 SQL [email or web address] Vomiting No 08/12/25 08:48 SQL [email or web address] Anesthesia Postop Eval I: Fluid Summary Crystalloid volume administer 500 08/12/25 08:48 SQL [email or web address] (ml) Colloids volume administered ( ml) Blood Product volume administered (ml) Total IV fluid infused 500 08/12/25 08:48 SQL [email or web address] Anesthesia Postop Eval I: Summary Notes Anesthesia Complication No 08/12/25 08:48 SQL [email or web address] Anesthesia Complication Comment: Post-operative progress note Anesthesia: Postop Eval II Evaluation Mental status: Awake Pain Level: 0 nausea: No Vomiting: No
[2025-08-12] MEDS: Ceftriaxone 2 GM in 0.9% Normal Saline (50mL MB+) 50 ML IV (11:54)
[2025-08-12] MEDS: 0.9% Normal Saline (500mL Bag) 500 ML 15 ML IV (11:54)
--- NOTE | 2025-08-12 13:18 | PCM.CONS.GEN ---
Assessment & Plan Assessment/Plan (1) Sacral osteomyelitis: PLAN: Now s/p I&D down to bone 08/12/[address] Cool. Surg cx pending, will cover empirically with vanc, ceftriaxone, and flagyl for now. Plan on 6 weeks abx. Will follow, thank you HPI Consult Data Date of Consult: 08/12/25 HPI Narrative Reason for Consultation: osteo HPI Narrative: GAIL MCPHERSON, is a 84 F with h/o THOMAS, cirrhosis, afib, presented with 6 months progressive sacral ulcer with bone exposed. Has been following at wound center. Some increased pain at area, mild. No fever or chills. No recent abx. Taken to OR this AM with Dr. Cool for I&D including bone. Pain controlled s/p OR. Full ROS performed and neg except as noted above. [facility] Medical History Post-menopausal Thyroid disease Injury of head and neck Shortness of breath on exertion Cancer Arthritis Anemia Cirrhosis High cholesterol Back pain Difficulty swallowing History of hiatal hernia History of ulceration History of IBS History of diverticulitis Gastric reflux Non-smoker History of edema History of echocardiogram History of stress test Cardiology follow-up encounter History of atrial fibrillation Hx of small bowel obstruction Home Medications ?Medication ?Instructions ?Recorded ?Last Taken ?Type Immucore 1 tab PO/SL DAILY 10/01/21 08/10/25 History atorvastatin 10 mg tablet 10 mg PO QHS 10/01/21 08/10/25 History cholecalciferol (vitamin D3) 50 50 mcg PO DAILY 10/01/21 08/10/25 History mcg (2,000 unit) capsule (Vitamin D3) dabigatran etexilate 150 mg 150 mg PO BID 10/01/21 08/10/25 History capsule (Pradaxa) dexlansoprazole 60 mg 60 mg PO DAILY 10/01/21 08/10/25 History capsule,biphase delayed release (Dexilant) diltiazem HCl 240 mg 240 mg PO DAILY 10/01/21 08/12/25 04:00 History capsule,extended release 24 hr furosemide 40 mg tablet 40 mg PO BID PRN Edema 10/01/21 08/08/25 History lubiprostone 8 mcg capsule 8 mcg PO BID 10/01/21 08/10/25 History (Amitiza) milk thistle 150 mg capsule 300 mg PO DAILY 10/01/21 08/10/25 History multivitamin 1 cap PO DAILY 10/01/21 08/10/25 History polyethylene glycol 3350 17 gram 17 g PO DAILY 10/01/21 08/10/25 History oral powder packet (Miralax) levothyroxine 100 mcg tablet 100 mcg PO DAILY 04/22/25 08/10/25 History naloxone 4 mg/actuation nasal spray 4 mg intranasal PRN 04/22/25 Unknown History tramadol 50 mg tablet 50 mg PO Q6H PRN PRN pain 04/22/25 08/12/25 04:00 History apixaban 2.5 mg tablet (Eliquis) 2.5 mg PO BID 07/29/25 08/08/25 History propafenone 150 mg tablet 150 mg PO BID 07/29/25 08/10/25 History Allergy/AdvReac Type Severity Reaction Status Date / Time adhesive tape AdvReac Rash Verified 08/12/25 07:22 NSAIDS (Non-Steroidal AdvReac Nausea Verified 08/12/25 07:22 Anti-Inflamma Surgical History Hx of eye surgery History of ureteroscopy History of esophagogastroduodenoscopy (EGD) Hx of colonoscopy Hx of total shoulder replacement History of bilateral knee arthroplasty Hx of bilateral cataract extraction History of laparoscopic cholecystectomy Hx of laparoscopy Hx of hysterectomy, total Hx of appendectomy Hx of tonsillectomy Social History Smoking Status: Never smoker Physical Exam Const alert, oriented x3 and no apparent distress General Appearance: cooperative HEENT normocephalic and head/scalp atraumatic Eyes PERRL and EOMs intact bilaterally Neck supple and No nodes Resp normal air movement and clear to auscultation bilaterally Cardio regular rate, regular rhythm and no murmurs GI soft to palpation, non-tender and non-distended Extremity General Extremity: Negative for edema Skin Skin Narrative: wound vac in place Neuro CN's II-XII intact bilaterally
[2025-08-12] MEDS: Vancomycin HCl 1,500 MG in 0.9% Normal Saline (500mL Bag) 500 ML 250 MG IV (14:53)
--- NOTE | 2025-08-12 15:56 | PCM.PN.HOSP ---
Subjective Subjective Consult requested by Dr. Cool for postoperative medical management. Patient feels fine postoperatively. Currently in her bed up on MedSurg 3. Denies any current complaints. States that her sacrum feels better after the surgery. Objective Data Objective Data Vital Signs: Vital Signs Temp Pulse Resp BP Pulse Ox O2 Del Method 36.4 C L 86 18 113/68 98 Room Air 08/12/25 14:32 08/12/25 14:32 08/12/25 14:32 08/12/25 14:32 08/12/25 14:32 08/12/25 14:32 Oxygen Delivery Method Room Air Weight: 61 kg Body Mass Index (BMI) 28.0 Intake & Output: Intake and Output for Last 24 Hours 08/10/25 08/11/25 08/12/25 23:59 22:59 23:59 Intake Total 50 / 50 Output Total 5 / 5 Balance 45 / 45 Lab / Micro Data Micro: Microbiology 08/12/25 08:16 Tissue Ulcer - Sacral Pressure Sore Gram Stain - Final 08/12/25 08:16 Bone - Sacral Bone Gram Stain - Final Physical Exam Const alert and no apparent distress Constitutional Narrative: Up in bed. Nontoxic. Afebrile. HEENT head/scalp atraumatic and moist oral mucous membranes Neck no lymphadenopathy Resp normal respiratory effort, no retractions, no use of accessory muscles and clear to auscultation bilaterally Cardio regular rate, regular rhythm, S1 normal heart sound and S2 normal heart sound GI normal to inspection, nondistended, normoactive bowel sounds, soft to palpation, non-tender and non-distended Extremity normal to inspection Assessment & Plan Assessment/Plan (1) Sacral osteomyelitis: PLAN: Status post debridement today. With plans for closure on the fifth. Infectious disease following and patient is currently on antibiotics with vancomycin, ceftriaxone and metronidazole. Tentative plan is for 6 weeks of antibiotics. PLAN: Plan Atrial fibrillation: Rate controlled. Continue diltiazem. Resume apixaban when okay with plastics. Hypothyroidism: Continue with levothyroxine Macular degeneration: Follow-up ophthalmology as outpatient per routine. VTE prophylaxis with enoxaparin. Thank you for the consult. The hospitalist service will follow along during this hospitalization. Charges/Coding Visit Charges Inpatient E&M: 29282 Subs Hosp L2
[2025-08-12 17:25] LABS: Estimated Creatinine Clearance 43.49 ml/min (50-250)
--- NOTE | 2025-08-12 20:10 | PCM.RX.CS ---
Consult Antibiotic Management Pharmacy has been consulted to manage selected antibiotic: Vancomycin Type of Intervention Type of Consult: New start Suspected Infection Suspected Infection: Osteomyelitis Labs Labs: Creatinine 0.62 mg/dL (0.70-1.20) L 08/12/25 16:26 Est GFR (MDRD) Non-Af 88 (>60) 08/12/25 16:26 Microbiology Microbiology: Microbiology 08/12/25 08:16 Tissue Ulcer - Sacral Pressure Sore Gram Stain - Final 08/12/25 08:16 Bone - Sacral Bone Gram Stain - Final Dosing Weight Weight used for dosin kg Estimated Creatinine Clearance Estimated Creatinine Clearance: 43.5 Goal Trough Goal Trough: 15-20 mcg/mL Pharmacy Plan for Drug Dosing Pharmacy Plan for Drug Dosing: Pharmacy Service will continue to monitor and adjust dosing as required. NEW START IV VANCOMYCIN Consulting Physician: Dr. Yoo Indication: Sacral osteomyelitis Goal Trough: 15-20 SrCr: 43.5 CrCl: 0.62 Vancomycin Dose: 500 mg Q12H with first dose 08/13 @ 0300 Pending Level: 08/14/25 @ 0230 Date/Time Labs Ordered Labs to be done on [date and time ordered]: 08/14/25 @ 0230
[2025-08-13] MEDS: Vancomycin HCl 500 MG in 0.9% Normal Saline (100mL Bag) 100 ML 100 MG IV ×2 (02:49→15:37)
[2025-08-13 02:52] VITALS: BP 115/59; PULSE 73; RESP 16; TEMP 36.6; O2SAT 93
--- NOTE | 2025-08-13 06:36 | WOUNDNOTE ---
Pt on low air loss mattress
[2025-08-13 07:16] VITALS: O2SAT 93
[2025-08-13] MEDS: Cholecalciferol (VIT D3) 25 MCG TABLET (1,000 UNITS) 50 MCG PO (07:31)
[2025-08-13 07:41] LABS: Hematocrit 32.7 % (37-47); Hemoglobin 10.8 g/dL (12.0-15.0); Immature Granulocytes Count 0.030 X10^3/uL (0.0-0.0); Mean Corp Hgb Conc 33.0 g/dL (32-36); Mean Corpuscular Volume 88.1 fL (81-99); Mean Platelet Vol. 11.0 fl (6.2-12.0); NRBC Flagged by Analyzer 0 % (0-5); Platelet Count 130 K/mm3 (150-450); RBC Distribution Width CV 15.1 % (11.6-14.6); RBC Distribution Width SD 48.7 fl (35.1-43.9); Red Blood Count 3.71 M/mm3 (4.2-5.4); White Blood Count 5.4 K/mm3 (4.4-11.0)
[2025-08-13 08:12] LABS: AST(SGOT) 37 U/L (<=31); Alanine Aminotransfer ALT/SGPT 6 U/L (<=34); Albumin, Serum 3.1 g/dL (3.4-4.8); Alkaline Phosphatase 127 U/L (35-104); Anion Gap 8 (5-15); BUN 18 mg/dL (4-19); BUN/Creat Ratio 33.5 RATIO (10-20); Calcium,Total 8.6 mg/dL (7.6-11.0); Carbon Dioxide 24.3 mmol/L (21.0-32.0); Chloride 106 mmol/L (98-108); Estimated Creatinine Clearance 43.49 ml/min (50-250); Globulin 2.8 g/dL (2.2-4.2); Glucose 99 mg/dL (70-99); Magnesium 2.0 mg/dL (1.5-2.2); Potassium 4.2 mmol/L (3.3-5.1)
[2025-08-13] MEDS: Ceftriaxone 2 GM in 0.9% Normal Saline (50mL MB+) 50 ML IV (09:44)
--- NOTE | 2025-08-13 09:52 | PN.HOSP_ITS ---
Subjective Subjective Feeling well. No new issues. Objective Data Objective Data Vital Signs: Vital Signs Temp Pulse Resp BP Pulse Ox O2 Del Method 36.6 C 73 16 115/59 L 93 Room Air 08/13/25 02:52 08/13/25 02:52 08/13/25 02:52 08/13/25 02:52 08/13/25 07:16 08/13/25 07:25 Oxygen Delivery Method Room Air Weight: 61 kg Body Mass Index (BMI) 28.0 Intake & Output: Intake and Output for Last 24 Hours 08/11/25 08/12/25 08/13/25 22:59 23:59 23:59 Intake Total 820 / 1020 510 / 510 Output Total 5 / 5 Balance 815 / 1015 510 / 510 Lab / Micro Data 08/13/25 07:17 08/13/25 07:17 Labs: Laboratory Results - last 24 hr 08/12/25 16:26: Creatinine 0.62 L, Estim Creat Clear Calc 43.49 L, Est GFR (MDRD) Non-Af 88 08/13/25 07:17: WBC 5.4, RBC 3.71 L, Hgb 10.8 L, Hct 32.7 L, MCV 88.1, MCH 29.1, MCHC 33.0, RDW Std Deviation 48.7 H, RDW Coeff of Kip 15.1 H, Plt Count 130 L, MPV 11.0, Immature Gran % (Auto) 0.600, Neut % (Auto) 73.0 H, Lymph % (Auto) 18.5 L, [place] % (Auto) 7.7, Eos % (Auto) 0.0, Baso % (Auto) 0.2, Absolute Neuts (auto) 3.9, Absolute Lymphs (auto) 0.99, Nucleated RBC % 0, Sodium 138, Potassium 4.2, Chloride 106, Carbon Dioxide 24.3, Anion Gap 8, BUN 18, C reatinine 0.53 L, Estim Creat Clear Calc 43.49 L, Est GFR (MDRD) Non-Af 92, B UN/Creatinine Ratio 33.5 H, Glucose 99, Calcium 8.6, Phosphorus 3.9, Magnesium 2.0, Total Bilirubin 0.43, AST 37 H, ALT 6, Alkaline Phosphatase 127 H, Total Protein 5.8 L, Albumin 3.1 L, Globulin 2.8, Albumin/Globulin Ratio 1.1 Micro: Microbiology 08/12/25 08:16 Bone - Sacral Bone Gram Stain - Final 08/12/25 08:16 Bone - Sacral Bone Wound Culture - Preliminary No growth-Final to follow 08/12/25 08:16 Tissue Ulcer - Sacral Pressure Sore Gram Stain - Final 08/12/25 08:16 Tissue Ulcer - Sacral Pressure Sore Wound Culture - Preliminary Staphylococcus species Physical Exam Const Constitutional Narrative: up in bed. afebrile. Resp normal respiratory effort and no retractions Assessment & Plan Assessment/Plan (1) Sacral osteomyelitis: PLAN: Status post debridement today. With plans for closure on the fifth. Infectious disease following and patient is currently on antibiotics with vancomycin, ceftriaxone and metronidazole. Tentative plan is for 6 weeks of antibiotics. PLAN: Plan Atrial fibrillation: Rate controlled. Continue diltiazem. Resume apixaban when okay with plastics. Hypothyroidism: Continue with levothyroxine Macular degeneration: Follow-up ophthalmology as outpatient per routine. VTE prophylaxis with enoxaparin. Patient overall stable medically. Will follow peripherally. Charges/Coding Visit Charges Inpatient E&M: 39769 [facility] Hosp L1
[2025-08-13 10:05] VITALS: BP 112/65; PULSE 65; RESP 18; TEMP 36.4; O2SAT 95
--- NOTE | 2025-08-13 10:30 | PCM.PN.ID ---
Physical Exam Narrative Feeling ok today, mild loose stool yesterday, no fever, pain controlled Const alert and no apparent distress General Appearance: cooperative Resp normal air movement and clear to auscultation bilaterally Cardio regular rate and regular rhythm GI soft to palpation, non-tender and non-distended Skin Skin Narrative: no new rash ID ID: Route of nutrition/ use of supplements: [] Nutritional Intake: [] IV Site: [] Rader Catheter: [] Assessment & Plan Assessment/Plan (1) Sacral osteomyelitis: PLAN: Now s/p I&D down to bone 08/12/[address] Cool. Surg cx showing staph from one sample so far, will cont empirically with vanc, ceftriaxone, and flagyl for now. Plan on 6 weeks abx. Will follow
--- NOTE | 2025-08-13 10:59 | PCM.PN.SRG ---
Subjective Subjective Patient seen with Dr. Cool and Rocio wound RN. Irrigating wound VAC stopped working in the evening, wound RN plans to trouble shoot or replace with nonirrigating wound VAC. She has been ambulating and offloading the wound. No concerns overnight. Objective Data Objective Data General: Denies fever, chills HEENT: Denies headaches, vision changes, sore throat Cardio: Denies chest pain, leg edema Pulmonary: Denies shortness of pain, cough, wheezing GI: Denies nausea, vomiting, diarrhea Vital Signs: Vital Signs Temp Pulse Resp BP Pulse Ox O2 Del Method 97.6 F L 65 18 112/65 95 Room Air 08/13/25 10:05 08/13/25 10:05 08/13/25 10:05 08/13/25 10:05 08/13/25 10:05 08/13/25 10:05 Oxygen Delivery Method Room Air Weight: 134 lb 7.712 oz Body Mass Index (BMI) 28.0 Intake & Output: Intake and Output for Last 24 Hours 08/11/25 08/12/25 08/13/25 22:59 23:59 23:59 Intake Total 820 / 1020 510 / 510 Output Total / Balance 815 / 1015 510 / 510 Lab / Micro Data Attestation: I reviewed the patient's lab results. 08/13/25 07:17 08/13/25 07:17 Labs: Laboratory Results - last 24 hr 08/12/25 16:26: Creatinine 0.62 L, Estim Creat Clear Calc 43.49 L, Est GFR (MDRD) Non-Af 88 08/13/25 07:17: WBC 5.4, RBC 3.71 L, Hgb 10.8 L, Hct 32.7 L, MCV 88.1, MCH 29.1, MCHC 33.0, RDW Std Deviation 48.7 H, RDW Coeff of Kip 15.1 H, Plt Count 130 L, MPV 11.0, Immature Gran % (Auto) 0.600, Neut % (Auto) 73.0 H, Lymph % (Auto) 18.5 L, Forrest % (Auto) 7.7, Eos % (Auto) 0.0, Baso % (Auto) 0.2, Absolute Neuts (auto) 3.9, Absolute Lymphs (auto) 0.99, Nucleated RBC % 0, Sodium 138, Potassium 4.2, Chloride 106, Carbon Dioxide 24.3, Anion Gap 8, BUN 18, Creatinine 0.53 L, Estim Creat Clear Calc 43.49 L, Est GFR (MDRD) Non-Af 92, BUN/Creatinine Ratio 33.5 H, Glucose 99, Calcium 8.6, Phosphorus 3.9, Magnesium 2.0, Total Bilirubin 0.43, AST 37 H, ALT 6, Alkaline Phosphatase 127 H, Total Protein 5.8 L, Albumin 3.1 L, Globulin 2.8, Albumin/Globulin Ratio 1.1 Micro: Microbiology 08/12/25 08:16 Bone - Sacral Bone Gram Stain - Final 08/12/25 08:16 Bone - Sacral Bone Wound Culture - Preliminary No growth-Final to follow 08/12/25 08:16 Tissue Ulcer - Sacral Pressure Sore Gram Stain - Final 08/12/25 08:16 Tissue Ulcer - Sacral Pressure Sore Wound Culture - Preliminary Staphylococcus species Physical Exam Narrative Afebrile/VSS. Wound VAC with good seal. No leg edema, SCD's in place. Moves all extremities spontaneously and smoothly. Assessment & Plan Assessment/Plan (1) Stage 4 skin ulcer of sacral region: PLAN: POD #1 stage 4 sacral ulcer and bone excision Pain control: per MAR Staph species. Continue broadspec per ID. Vancomycin, Ceftriaxone, Metronidazole. Preop for tomorrow. Will have incisional wound VAC until Tuesday08/19/25 with plans to change to Provena wound VAC. Patient is unable to manage VAC on her own and is a fall risk and wishes to stay in TCU until wounc VAC is discontinued. Agree with plan. DVT ppx: SCD's and SQ Lovenox. Charges/Coding Procedures Integumentary [id number]: [id number] Global Visit
--- NOTE | 2025-08-13 11:23 | CASEMGMT ---
Social Work Pt states her daughter in law is her POA for healthcare, SW asked her to have her daughter in law bring in the documents as able. WANDA Vera
--- NOTE | 2025-08-13 12:39 | CASEMGMT ---
RN BRI Assessment Face to Face with patient for initial transition planning/care coordination assessment. RN BRI introduced self and role at [facility], pt voices understanding. Pt is A&Ox4 and is resting comfortably in bed and is calm. Care providers, pharmacy, and demographics verified. Admitting dx: Excision and Closure of Sacral Wound LACE Strata: 2 PCP: Mil Woodruff Specialists: Denies Preferred Pharmacy: [facility] Insurance: [employer] A/B, [employer] Commercial Prescription Benefit: Yes LNOK: Cara Aguilar (Daughter). Pt states that this is her only resource for help as her passed x1 year ago. Pt states that her daughter has cancer and isn't able to provide too much support due to this. Living Arrangements: Pt lives alone in a single story home with a basement with a FFSU and 2 steps to enter ADLs/IADLs: Pt states that she is indep at baseline. PT is ordered and pending. Transportation: Self, daughter DME: Access to FWW, Cane, Grab bars, and shower chair. HR monitor. Pt may qualify for home oxygen use. A verbal list of local in-network DME companies were provided to the pt at this time. Pt prefers [facility].? HHC/SNF: Denies hx of Wound: Pt reports that she has been going to the [facility] through [facility] in [facility]. Pt?s goal: TBD Plan: TBD. Per chart review, pt to undergo closure procedure tomorrow, 08/14. ID reports to CM that the pt will require x6 week of IV ATBs. This card writer hand educated the pt on the process and the options for IV ATBs. Pt states that she does not have a teachable caregiver. Pt states that she does not feel comfortable learning herself and that her daughter is unable. Pt states that she prefers to go as an OP for infusions if possible. CM to follow for final ID recommendations. Pt informed that OP may not be an option, contingent on the frequency of the IVs needed and the OP infusion center's policy. CM to follow. Pt states understanding and states that she would be open to going to a SNF if needed. Pt states that her FOC is [facility] in [place]. Pt states that she would be open to reviewing a list of other SNFs in the case that [facility] is unable to accept. DPA notified. At this time, the pt denies further questions or concerns. Pt requesting this card writer hand's card if the pt were to come up with any questions. Care provided. Pt thanks this card writer hand. Report given to FRANDY LOCK CM. Ashley Santillan RN, CM
--- NOTE | 2025-08-13 12:52 | CASEMGMT ---
Discharge Planning A list of?SNF providers including quality and resource use data and consistent with the patient's preferred geographic region, medical needs, and insurance network was created in [employer] Guide.? This list was provided to the patient. Nayeli Kessler, Discharge Planning Asst.
[2025-08-13 14:06] VITALS: BP 108/56; PULSE 62; RESP 18; TEMP 36.4; O2SAT 95
[2025-08-13 19:41] VITALS: BP 127/67; PULSE 63; RESP 18; TEMP 36.4; O2SAT 95
[2025-08-13] MEDS: 0.9% Normal Saline (1000mL) 1,000 ML 75 ML IV (23:46)
[2025-08-14] VITALS (18 sets, daily range): BP systolic 85–138; BP diastolic 49–78; PULSE 57–80; RESP 16–18; TEMP 36.4–36.9; O2SAT 86–100; BMI 28.2
[2025-08-14 03:15] LABS: Partial Thromboplast Time 29.5 Seconds (24.1-36.2); Prothrombin Time (Protime)PT. 15.2 SECONDS (11.7-14.9)
[2025-08-14 03:33] LABS: Vancomycin, Trough Level 9.6 ug/mL (5.0-15.0)
[2025-08-14 03:40] LABS: Magnesium 1.8 mg/dL (1.5-2.2)
--- NOTE | 2025-08-14 03:51 | PCM.RX.CS ---
Consult Antibiotic Management Pharmacy has been consulted to manage selected antibiotic: Vancomycin Type of Intervention Type of Consult: Follow-up Labs Labs: Sodium 138 mmol/L (133-145) 08/13/25 07:17 Potassium 4.2 mmol/L (3.3-5.1) 08/13/25 07:17 Chloride 106 mmol/L (98-108) 08/13/25 07:17 Carbon Dioxide 24.3 mmol/L (21.0-32.0) 08/13/25 07:17 Anion Gap 8 (5-15) 08/13/25 07:17 BUN 18 mg/dL (4-19) 08/13/25 07:17 Creatinine 0.53 mg/dL (0.70-1.20) L 08/13/25 07:17 Est GFR (MDRD) Non-Af 92 (>60) 08/13/25 07:17 BUN/Creatinine Ratio 33.5 RATIO (10-20) H 08/13/25 07:17 Glucose 99 mg/dL (70-99) 08/13/25 07:17 Vancomycin Trough 9.6 ug/mL (5.0-15.0) 08/14/25 02:48 Microbiology Microbiology: Microbiology 08/12/25 08:16 Bone - Sacral Bone Gram Stain - Final 08/12/25 08:16 Bone - Sacral Bone Wound Culture - Preliminary No growth-Final to follow 08/12/25 08:16 Tissue Ulcer - Sacral Pressure Sore Gram Stain - Final 08/12/25 08:16 Tissue Ulcer - Sacral Pressure Sore Wound Culture - Preliminary Staphylococcus species Goal Trough Goal Trough: 15-20 mcg/mL Pharmacy Plan for Drug Dosing Pharmacy Plan for Drug Dosing: Pharmacy Service will continue to monitor and adjust dosing as required. TROUGH 9.6 @ 11 HOURS. INCREASE TO 750MG Q12H AND DRAW TROUGH PRIOR TO 4TH DOSE Follow-Up Labs Follow-Up Labs: Trough: Vancomycin Date/Time Labs Ordered Labs to be done on [date and time ordered]: 08/15 @ 1535
[2025-08-14] MEDS: Vancomycin HCl 750 MG in 0.9% Normal Saline (250mL Bag) 250 ML 250 MG IV ×2 (03:57→16:12)
--- NOTE | 2025-08-14 05:59 | NURSING ---
Sanjuana in ac called and notified pt is worried about not taking her heart meds on time. Ok to give w sips of water
[2025-08-14] MEDS: Lactated Ringers 1,000 ML 15 ML IV (06:00)
--- NOTE | 2025-08-14 06:00 | EKG12_ITS ---
Test Reason : PRE-OP Blood Pressure : */* mmHG Vent. Rate : 60 BPM Atrial Rate : 60 BPM P-R Int : 204 ms QRS Dur : 68 ms QT Int : 440 ms P-R-T Axes : 33 2 29 degrees QTcB Int : 440 ms Sinus rhythm with marked sinus arrhythmia Otherwise normal ECG No previous ECGs available Confirmed by Mil Zelaya ([id number]), slot editor BURT CHAU ([id number]) on 08/14/2025 12:44:15 PM Referred By: Francis Cool Confirmed By: Mil Zelaya
[2025-08-14] MEDS: 0.9% Normal Saline (1000mL) 700 ML IV (08:25)
--- NOTE | 2025-08-14 08:31 | WOUNDNOTE ---
Pt currently off unit for surgery.
--- NOTE | 2025-08-14 08:32 | PCM.PRE.AN2 ---
ASA Classification* ASA Classification ASA Classification: 3 ( h/o THOMAS, cirrhosis, afib (rate controlled), CKD3, hypothyroid. Avoid VERSED. Patient states she feels claustrophobic from mask on face.) Assessment & Plan Anesthesia* Anesthesia Assessment Anesthesia Assessment: Discussed sedation and/or anesthesia options, risks, benefits, and alternatives with patient/parents/legal guardian/POA. Questions invited. The patient/parents/legal guardian/POA seems to understand and agrees to proceed with anesthesia plan. Reviewed the physical assessment, medical history, allergy history and patient home medications list prior to surgery/procedure/anesthetic and documented any changes. Performed airway and anesthesia risk assessments. Anesthesia Type Anesthesia Type: General (ETT.) History Source History Obtained from:: Patient and Chart Anesthesia Focused Assessment* Temperature: 97.5 F Pulse Rate: 63 Blood Pressure: 138/68 Respiratory Rate: 16 Pulse Ox: 93 Oxygen Delivery Method: Room Air Airway Assessment Mouth opens: >3 cm Mallampati Score: II Neck Range of motion (ROM): Full ROM Labs Anesthesia Preop lab: CBC WBC, (4.4-11.0) 5.4 K/mm3 08/13/25, 07:17 RBC, (4.2-5.4) 3.71 M/mm3 L 08/13/25, 07:17 Hgb, (12.0-15.0) 10.8 g/dL L 08/13/25, 07:17 Hct, (37-47) 32.7 % L 08/13/25, 07:17 Plt Count, (150-450) 130 K/mm3 L 08/13/25, 07:17 CHEMISTRY Potassium, (3.3-5.1) 4.2 mmol/L 08/13/25, 07:17 Sodium, (133-145) 138 mmol/L 08/13/25, 07:17 Magnesium, (1.5-2.2) 1.8 mg/dL Today, 02:48 Phosphorus, (2.7-4.5) 3.0 mg/dL Today, 02:48 BUN, (4-19) 18 mg/dL 08/13/25, 07:17 Creatinine, (0.70-1.20) 0.53 mg/dL L 08/13/25, 07:17 Glucose, (70-99) 99 mg/dL 08/13/25, 07:17 TSH, (0.300-4.200) 1.150 uIU/mL Today, 02:48 COAG PT, (11.7-14.9) 15.2 SECONDS H Today, 02:48 Pre-Assessment Diagnosis/Proposed Procedure Planned Operative Procedure(s): Excision sacral wound with wound vac placement Anesthesia History Anesthesia History - ultrasound technologist sonographer: Anesthesia History - ultrasound technologist sonographer Hx Hospitalization No 07/29/25 15:12 Any Problems With Anesthesia No 08/13/25 19:42 Cholinesterase deficiency No 08/13/25 19:42 You/Your Family Experience No 08/13/25 19:42 fever (hyperthermia) with Relationship Recent Exposure to Contagious No 08/13/25 19:42 Disease Does patient have nerve No 08/13/25 19:42 stimulator Patient instructed to have No 08/13/25 19:42 device shut off --Does patient have Pacemaker No 08/14/25 08:02 or ICD? When Was Last Pacemaker Check QUESTION #4 FULL TEXT: You/Your Family Experience fever (hyperthermia) with Anesthesia Last Oral Intake Last Oral intake: Last Oral Intake NPO since 00:00 08/14/25 08:02 Meds taken in AM with sips of Yes 08/14/25 08:02 water? Meds patient instructed to take am of surgery PONV PONV - ultrasound technologist sonographer: PONV - ultrasound technologist sonographer Female Yes 07/29/25 15:12 HX of Motion Sickness No 07/29/25 15:12 HX of N/V After Surgery No 07/29/25 15:12 Non-Smoker Yes 07/29/25 15:12 Duration of Surgery greater No 07/29/25 15:12 than 60 minutes Number of Risk Factors 2 07/29/25 15:12 PONV Score Moderate Risk 07/29/25 15:12 Height & Weight Height & Weight: Anesthesia: Height & Weight Height 4 ft 9.87 in 08/14/25 08:02 Weight: 61 kg 08/14/25 08:02 Body Mass Index (BMI) 28.2 08/14/25 08:02 Respiratory Assessment Respiratory Assessment - ultrasound technologist sonographer: Respiratory Tract Infection Hx - ultrasound technologist sonographer Hx Respiratory Tract Infection No 08/13/25 19:42 STOP Sleep Apnea STOP Sleep Apnea - ultrasound technologist sonographer: STOP Sleep Apnea - ultrasound technologist sonographer Hx Hypertension No 07/29/25 15:12 Hx Sleep Apnea No 08/12/25 14:10 CPAP No 08/12/25 08:45 BIPAP Do you snore loudly (louder No 07/29/25 15:12 than talking or can be heard Do you often feel tired/ No 07/29/25 15:12 fatigued/ sleepy during daytime? Has anyone observed you stop No 07/29/25 15:12 breathing during sleep? STOP Results Negative 07/29/25 15:12 QUESTION #5 FULL TEXT : Do you snore loudly (louder than talking or can be heard through closed doors)? Tobacco Use History Tobacco Use History - ultrasound technologist sonographer: Tobacco Use History - ultrasound technologist sonographer Tobacco Use Smoking Status Never smoker 07/29/25 15:12 Hx Tobacco Use No 08/12/25 14:32 Years Smoking Packs Smoked per Day Smoking Cessation Date was within the last 15 years Hx Smoking Cessation Date Hx Smoking Cessation Counseling Hematologic Medial History Hematologic Hx - ultrasound technologist sonographer: Hematologic Medical Hx - shot packer Hx of Blood Transfusion Yes 07/29/25 15:12 Hx of Transfusion in last 3 No 07/29/25 15:12 Months Date of Last Transfusion (if within last 3 months) Ever experience any problems No 07/29/25 15:12 with transfusion(s)? Specify any problems Hx of Preganancy in last 3 No 07/29/25 15:12 Months Nurse Filling Out Transfusion VCHRISTIN 07/29/25 15:12 & Questions: Date: 07/29/25 07/29/25 15:12 Time: 15:16 07/29/25 15:12 Patient unable to answer at this time (ie. confused, unrespo /Reproduction History /Reproductive History - ultrasound technologist sonographer: /Reproductive Hx- ultrasound technologist sonographer Hx Now No 07/29/25 15:12 Gestational Age (in weeks): EDC: Hx Hx Para Hx Section SAB No 07/29/25 15:12 Active Medications Active Medications: Current Medications Generic Name Dose Route Start Last Admin Trade Name Freq PRN Reason Stop Dose Admin Acetaminophen 650 mg 08/12/25 07:51 Acetaminophen 325 Mg Tablet PO Q6H PRN PRN Pain Score 1-3 Atorvastatin Calcium 10 mg 08/12/25 22:00 08/13/25 22:59 Atorvastatin Calcium 10 Mg Tablet PO 10 mg QHS SVETLANA Administration Cholecalciferol 50 mcg 08/13/25 10:00 08/13/25 07:31 Cholecalciferol (Vit D3) 25 Mcg Tablet (1,000 Units) PO 50 mcg DAILY SVETLANA Administration Sodium Hypochlorite 473 ml/ 0 ml 08/12/25 15:05 08/13/25 14:43 Sodium Chloride 473 ml IRRIGATION Not Given UD SVETLANA Diltiazem HCl 240 mg 08/13/25 10:00 08/14/25 05:54 Diltiazem Cd 240 Mg Capsule PO 240 mg DAILY SVETLANA Administration Protocol Enoxaparin Sodium 40 mg 08/12/25 10:00 08/13/25 07:30 Enoxaparin 40 Mg/0.4 Ml Syringe SC 40 mg On Hold: 08/13/25 15:28 DAILY SVETLANA Administration Lactated Ringer's 1,000 mls @ 15 mls/hr 08/12/25 06:15 08/14/25 06:00 IV 15 mls/hr .Q48H SVETLANA Administration Ceftriaxone Sodium 2 gm/ 50 mls @ 100 mls/hr 08/12/25 10:00 08/13/25 11:20 Sodium Chloride IV Infused Q24 SVETLANA Infusion Vancomycin IV-PHARMACY TO DOSE 500 mls @ 250 mls/hr 08/12/25 09:33 1 each/ Sodium Chloride IV X1 PRN Rx to Dose Protocol Sodium Chloride 500 mls @ 0 mls/hr 08/12/25 12:00 08/13/25 22:58 IV Infused .Q0M SVETLANA Infusion KVO Sodium Chloride 250 mls @ 15 mls/hr 08/12/25 14:43 IV .[id number] PRN Saline Flush Sodium Chloride 250 mls @ 15 mls/hr 08/12/25 14:43 IV .[id number] PRN Additional IVPB Infusion Cefazolin Sodium 2 gm/ Sodium 110 mls @ 200 mls/hr 08/14/25 09:00 Chloride IV 08/14/25 09:32 INTRAOP ONE Sodium Chloride 1,000 mls @ 75 mls/hr 08/14/25 00:00 08/14/25 06:35 IV Infused .[id number] SVETLANA Infusion Vancomycin HCl 750 mg/ Sodium 265 mls @ 250 mls/hr 08/14/25 04:00 08/14/25 05:08 Chloride IV Infused Q12H [facility] Infusion Levothyroxine Sodium 100 mcg 08/13/25 06:00 08/14/25 05:53 Levothyroxine 100 Mcg Tablet PO 100 mcg DAILY@0600 SVETLANA Administration Metronidazole 500 mg 08/12/25 14:00 08/14/25 05:53 Metronidazole 500 Mg Tablet PO 500 mg TID [facility] Administration Nystatin 1 applic 08/13/25 14:35 08/13/25 23:00 Nystatin Powder 15gm Bottle TOPICAL Not Given BID [facility] Protocol Ondansetron HCl 4 mg 08/12/25 07:51 Ondansetron 4 Mg/2 Ml Vial IV Q8H PRN PRN NAUSEA/VOMITING Oxycodone HCl 5 mg 08/12/25 07:51 Oxycodone 5 Mg Tablet PO Q6H PRN PRN Pain Score 4-5 or Pre PT/OT Pantoprazole Sodium 40 mg 08/13/25 10:00 08/14/25 05:54 Pantoprazole Sodium 40 Mg Tablet PO 40 mg DAILY [facility] Administration Polyethylene Glycol 17 gm 08/12/25 10:00 08/13/25 07:31 Polyethylene Glycol 3350 17 Gm Packet PO Not Given DAILY [facility] Propafenone HCl 150 mg 08/12/25 22:00 08/14/25 05:53 Propafenone 150 Mg Tablet PO 150 mg BID [facility] Administration Sodium Chloride 10 - 40 ml 08/12/25 14:43 0.9% Saline Lock 10 Ml Syringe IV UD PRN SALINE FLUSH Tramadol HCl 50 mg 08/12/25 07:56 08/13/25 23:42 Tramadol 50 Mg Tablet PO 50 mg Q6H PRN PRN Administration pain Vancomycin Protocol 1 lab 08/15/25 14:30 Vancomycin Trough/Random Due [facility] 08/15/25 16:30 DAILY [facility] Medical History Post-menopausal Thyroid disease Injury of head and neck Shortness of breath on exertion Cancer Arthritis Anemia Cirrhosis High cholesterol Back pain Difficulty swallowing History of hiatal hernia History of ulceration History of IBS History of diverticulitis Gastric reflux Non-smoker History of edema History of echocardiogram History of stress test Cardiology follow-up encounter History of atrial fibrillation Hx of small bowel obstruction Home Medications ?Medication ?Instructions ?Recorded ?Last Taken ?Type Immucore 1 tab PO/SL DAILY 10/01/21 08/10/25 History atorvastatin 10 mg tablet 10 mg PO QHS 10/01/21 08/10/25 History cholecalciferol (vitamin D3) 50 50 mcg PO DAILY 10/01/21 08/10/25 History mcg (2,000 unit) capsule (Vitamin D3) dabigatran etexilate 150 mg 150 mg PO BID 10/01/21 08/10/25 History capsule (Pradaxa) dexlansoprazole 60 mg 60 mg PO DAILY 10/01/21 08/10/25 History capsule,biphase delayed release (Dexilant) diltiazem HCl 240 mg 240 mg PO DAILY 10/01/21 08/12/25 04:00 History capsule,extended release 24 hr furosemide 40 mg tablet 40 mg PO BID PRN Edema 10/01/21 08/08/25 History lubiprostone 8 mcg capsule 8 mcg PO BID 10/01/21 08/10/25 History (Amitiza) milk thistle 150 mg capsule 300 mg PO DAILY 10/01/21 08/10/25 History multivitamin 1 cap PO DAILY 10/01/21 08/10/25 History polyethylene glycol 3350 17 gram 17 g PO DAILY 10/01/21 08/10/25 History oral powder packet (Miralax) levothyroxine 100 mcg tablet 100 mcg PO DAILY 04/22/25 08/10/25 History naloxone 4 mg/actuation nasal spray 4 mg intranasal PRN 04/22/25 Unknown History tramadol 50 mg tablet 50 mg PO Q6H PRN PRN pain 04/22/25 08/12/25 04:00 History apixaban 2.5 mg tablet (Eliquis) 2.5 mg PO BID 07/29/25 08/08/25 History propafenone 150 mg tablet 150 mg PO BID 07/29/25 08/10/25 History Allergy/AdvReac Type Severity Reaction Status Date / Time hydrocodone (From [place]) Allergy Severe Itching Verified 08/12/25 23:33 oxycodone Allergy Severe Itching Verified 08/12/25 23:33 adhesive tape AdvReac Rash Verified 08/12/25 07:22 NSAIDS (Non-Steroidal AdvReac Nausea Verified 08/12/25 07:22 Anti-Inflamma Surgical History Hx of eye surgery History of ureteroscopy History of esophagogastroduodenoscopy (EGD) Hx of colonoscopy Hx of total shoulder replacement History of bilateral knee arthroplasty Hx of bilateral cataract extraction History of laparoscopic cholecystectomy Hx of laparoscopy Hx of hysterectomy, total Hx of appendectomy Hx of tonsillectomy Social History Smoking Status: Never smoker Review of Systems (Anesthesia) ROS Narrative System reviewed and no additional complaints, except as documented. Physical Exam Const alert, oriented x3 and average body habitus Resp normal respiratory effort, normal air movement and clear to auscultation bilaterally Cardio regular rate, regular rhythm, no murmurs and diaphoretic
--- NOTE | 2025-08-14 09:26 | PCM.PN.SRG ---
Subjective Subjective Patient presenting today for stage of sacral wound closure with flap with Dr. Cool. No concerns overnight. Labs yesterday reviewed and stable. Objective Data Objective Data General: Denies fever, chills HEENT: Denies headaches, vision changes, sore throat Cardio: Denies chest pain, leg edema Pulmonary: Denies shortness of pain, cough, wheezing GI: Denies nausea, vomiting, diarrhea Vital Signs: Vital Signs Temp Pulse Resp BP Pulse Ox O2 Del Method 97.5 F L 63 16 138/68 H 93 Room Air 08/14/25 08:33 08/14/25 08:33 08/14/25 08:33 08/14/25 08:33 08/14/25 08:33 08/14/25 08:33 Oxygen Delivery Method Room Air Weight: 134 lb 7.712 oz Body Mass Index (BMI) 28.2 Intake & Output: Intake and Output for Last 24 Hours 08/12/25 08/13/25 08/14/25 23:59 23:59 23:59 Intake Total 820 / 1020 1290 / 1290 1206.25 / 1206.25 Output Total 5 / 5 Balance 815 / 1015 1290 / 1290 1206.25 / 1206.25 Lab / Micro Data Attestation: I reviewed the patient's lab results. 08/13/25 07:17 08/13/25 07:17 Labs: Laboratory Results - last 24 hr 08/14/25 02:48: PT 15.2 H, INR 1.2, APTT 29.5, Phosphorus 3.0, Magnesium 1.8, TSH 1.150, Vancomycin Trough 9.6 Micro: Microbiology 08/12/25 08:16 Tissue Ulcer - Sacral Pressure Sore Gram Stain - Final 08/12/25 08:16 Tissue Ulcer - Sacral Pressure Sore Wound Culture - Final Staphylococcus aureus 08/12/25 08:16 Bone - Sacral Bone Gram Stain - Final 08/12/25 08:16 Bone - Sacral Bone Wound Culture - Preliminary No growth-Final to follow Physical Exam Narrative Afebrile/VSS. Wound VAC with good seal. No leg edema, SCD's in place. Moves all extremities spontaneously and smoothly. Assessment & Plan Assessment/Plan (1) Stage 4 skin ulcer of sacral region: PLAN: POD #2 stage 4 sacral ulcer and bone excision OR today for wound closure with flap with Dr. Cool Pain control: per DEC Staph species. Continue broadspec per ID. Vancomycin, Ceftriaxone, Metronidazole. Will have incisional wound VAC until Tuesday08/19/25 with plans to change to Provena wound VAC. Patient is unable to manage VAC on her own and is a fall risk and wishes to stay in TCU until wounc VAC is discontinued. Agree with plan. DVT ppx: SCD's and SQ Lovenox. Charges/Coding Procedures Integumentary [id number]: [id number] Global Visit
--- NOTE | 2025-08-14 09:59 | OP.PCM_ITS ---
Operative Report (Standard) Operative Information Date of Procedure: 08/14/25 Pre-Operative Diagnosis: Sacral wound stage IV with exposed bone Post-Operative Diagnosis: Same Surgery/Procedure Performed: Fasciocutaneous Limberg flap (rhombus) reconstructi on of sacral ulcer (skin flap closure for sacral wound closure) natural gas engineer: Yes Credit Card Clerk: Chayo Pearl Tasks completed by first mate: Closing, Dissecting tissue and Retracting Type of Anesthesia: General/Supplemental (20 cc of a 50-50 mixture of 1% lidocaine with 1-200,000 epinephrine and core percent Marcaine with 1-200,000 epinephrine) RN Documented Start/Stop Times: Operation Date: 08/14/25 09:00 Case Time Into Pre-Op 08/14/25 07:45 Anesthesia Start 08/14/25 09:57 Into Room 08/14/25 09:57 Procedure Start 08/14/25 10:37 Procedure End 08/14/25 11:39 Anesthesia End 08/14/25 11:47 Out of Room 08/14/25 11:47 Into Recovery 08/14/25 11:55 Procedure Start Time: 10:37 Procedure Stop Time: 11:39 Select all DRAINS/GRAFTS/IMPLANTS that apply: None Estimated Blood Loss: 20 cc Specimen collected: Yes Description of specimen(s) removed: Bone cultures sacral bone Description of surgery: Indications: Patient is delightful 84-year-old female with a sacral ulcer stage IV down to bone. She presents today for flap reconstruction and understands the risks, kira efits, and alternatives, and she understands the risks of flap failure and postoperative protocol the pressure offload. She would like to proceed. Procedure details: Patient was correct identified in preoperative holding and taken back to the operating room where she was administered general anesthesia and placed in the lateral decubitus position with an axillary roll. Care was taken to pad all bony prominences. She was prepped and draped in sterile fashion and a timeout was performed. The wound was ileana-shaped and was further excised at the base of the wound with a curette and washed out with copious amounts normal saline and Irrisept. The wound measured approximately 3 x 3 cm. Rhombus was designed (Limberg flap) from inferiorly, which was raised with a 10 blade scalpel and Bovie electrocautery full-thickness down to the underlying fascia (fasciocutaneous flap). It was rotated and advanced superiorly into position for a closure of the sacral wound with a local fasciocutaneous flap. The wound was closed in layers with 2-0 PDS deep Rahel's suture and sutures at the base, followed by 3- 0 Monocryl deep dermal sutures and 3-0 nylon vertical mattress sutures. An incisional wound VAC was applied with Adaptic. The patient tolerated the procedure well. She was awakened and taken to the PACU in stable condition under pressure offloading bed. Postoperative plan: Plan for the wound VAC for 5 days over the incision. Then we will remove the VAC and anticipate discharge to a rehab facility to continue the pressure offloading protocol for 3 weeks. Surgical Findings: Stage IV sacral ulcer with clean wound bed and no signs of any sequestrum at the base of the wound Complications Complications: No
[2025-08-14] MEDS: fentaNYL 100 MCG/2 ML Ampul 50 MCG IV (10:11)
[2025-08-14] MEDS: Lidocaine 1% (5 ml sdv) 5 ML Vial IV (10:12)
[2025-08-14] MEDS: Ceftriaxone 2 GM in 0.9% Normal Saline (50mL MB+) 50 ML IV (10:13)
[2025-08-14] MEDS: Bupiv/Epi 0.25% 30 ML Vial (11:00)
[2025-08-14] MEDS: Lidocaine 1% /Epi 1:100 (50ml) 50 ML VIAL (11:00)
--- NOTE | 2025-08-14 11:10 | CASEMGMT ---
Addendum entered by Rose Hernandez 08/14/25 15:23: Pt is accepted at [facility]. Pt is aware and is happy to hear this. Addendum entered by Rose Hernandez 08/14/25 13:51: HAYDE GREGORY into pt room, pt lying on her side in no distress. Pt states she has reviewed the SNF list and she would like [facility] as first choice as Dr. Cool will be able to monitor the wound progress closely. Pt has chosen [facility] as second and [facility] as third choice. Referral made to [facility] at this time. Original Note: HAYDE GREGORY into pt room to obtain choices for SNF. Pt is off of the floor at this time. HAYDE GREGORY to check back.
--- NOTE | 2025-08-14 12:00 | PCM.POST.ANE ---
Anesthesia: Postop Eval I Current Vital Signs Temperature: 98.4 F Pulse Rate: 68 Blood Pressure: 136/78 Respiratory Rate: 16 Pulse Ox: 100 Oxygen Delivery Method: Nasal Cannula Oxygen Flow Rate (L/min): 4 Assessment Airway patent: Yes Spontaneous unlabored respirations: Yes Mental status: Awake and Calm nausea: No Vomiting: No Anesthesia Complication: No Fluid Hydration Crystalloid volume administer (ml): 700 Total IV fluid infused: 700 Progress Note Anesthesia document: Postop Eval 1 completed: Yes
--- NOTE | 2025-08-14 12:36 | POSTOPAN2_ITS ---
Anesthesia Postop Eval I Sum Postop Eval Completion status Anesthesia document: Postop Eval 1 completed: Yes Anesthesia Postop Eval I Summary Anesthesia Postop Eval I Summary: Anesthesia Postop Eval I: Assessment Summary Airway patent Yes 08/14/25 12:01 [email or web address] [email or web address] [email or web address] Spontaneous unlabored Yes 08/14/25 12:01 [email or web address] [email or web address] [email or web address] respirations Mental status Awake,Calm 08/14/25 12:01 [email or web address] [email or web address] [email or web address] nausea No 08/14/25 12:01 COAT [email or web address] [email or web address] Vomiting No 08/14/25 12:01 [email or web address] [email or web address] [email or web address] Anesthesia Postop Eval I: Fluid Summary Crystalloid volume administer 700 08/14/25 12:01 COAT IRONER [email or web address] (ml) Colloids volume administered ( ml) Blood Product volume administered (ml) Total IV fluid infused 700 08/14/25 12:01 [email or web address] [email or web address] [email or web address] Anesthesia Postop Eval I: Summary Notes Anesthesia Complication No 08/14/25 12:01 [email or web address] [email or web address] [email or web address] Anesthesia Complication Comment: Post-operative progress note Anesthesia: Postop Eval II Evaluation Mental status: Awake Pain Level: 0 nausea: No Vomiting: No Complications Anesthesia Complication: No
--- NOTE | 2025-08-14 12:36 | PCM.POSTANE2 ---
Anesthesia Postop Eval I Sum Postop Eval Completion status Anesthesia document: Postop Eval 1 completed: Yes Anesthesia Postop Eval I Summary Anesthesia Postop Eval I Summary: Anesthesia Postop Eval I: Assessment Summary Airway patent Yes 08/14/25 12:01 [email or web address] Spontaneous unlabored Yes 08/14/25 12:01 [email or web address] respirations Mental status Awake,Calm 08/14/25 12:01 [email or web address] nausea No 08/14/25 12:01 [email or web address] Vomiting No 08/14/25 12:01 [email or web address] Anesthesia Postop Eval I: Fluid Summary Crystalloid volume administer 700 08/14/25 12:01 [email or web address] (ml) Colloids volume administered ( ml) Blood Product volume administered (ml) Total IV fluid infused 700 08/14/25 12:01 [email or web address] Anesthesia Postop Eval I: Summary Notes Anesthesia Complication No 08/14/25 12:01 [email or web address] Anesthesia Complication Comment: Post-operative progress note Anesthesia: Postop Eval II Evaluation Mental status: Awake Pain Level: 0 nausea: No Vomiting: No Complications Anesthesia Complication: No
[2025-08-14] MEDS: 0.9% Normal Saline (1000mL) 1,000 ML 75 ML IV (13:03)
[2025-08-14] MEDS: 0.9% Saline Lock 10 ML Syringe IV (22:18)
[2025-08-15] VITALS (8 sets, daily range): BP systolic 122–148; BP diastolic 56–93; PULSE 63–95; RESP 16–18; TEMP 36.5–36.9; O2SAT 93–97
[2025-08-15] MEDS: 0.9% Normal Saline (1000mL) 1,000 ML 75 ML IV ×2 (02:12→17:24)
[2025-08-15] MEDS: Vancomycin HCl 750 MG in 0.9% Normal Saline (250mL Bag) 250 ML 250 MG IV (04:11)
[2025-08-15 08:55] LABS: Hematocrit 40.4 % (37-47); Hemoglobin 12.8 g/dL (12.0-15.0); Immature Granulocytes Count 0.030 X10^3/uL (0.0-0.0); Mean Corp Hgb Conc 31.7 g/dL (32-36); Mean Corpuscular Volume 91.0 fL (81-99); Mean Platelet Vol. 11.0 fl (6.2-12.0); NRBC Flagged by Analyzer 0 % (0-5); Platelet Count 154 K/mm3 (150-450); RBC Distribution Width CV 15.6 % (11.6-14.6); RBC Distribution Width SD 51.8 fl (35.1-43.9); Red Blood Count 4.44 M/mm3 (4.2-5.4); White Blood Count 7.9 K/mm3 (4.4-11.0)
[2025-08-15 09:20] LABS: Anion Gap 9 (5-15); BUN 7 mg/dL (4-19); BUN/Creat Ratio 14.0 RATIO (10-20); Calcium,Total 8.2 mg/dL (7.6-11.0); Carbon Dioxide 24.3 mmol/L (21.0-32.0); Chloride 106 mmol/L (98-108); Estimated Creatinine Clearance 43.49 ml/min (50-250); Glucose 92 mg/dL (70-99); Potassium 3.7 mmol/L (3.3-5.1)
[2025-08-15] MEDS: Ceftriaxone 2 GM in 0.9% Normal Saline (50mL MB+) 50 ML IV (09:41)
[2025-08-15] MEDS: Cholecalciferol (VIT D3) 25 MCG TABLET (1,000 UNITS) 50 MCG PO (09:41)
--- NOTE | 2025-08-15 10:22 | PN.SURG_ITS ---
Subjective Subjective Seen this morning with Dr. Cool at bedside today. She was sitting up in bed eating breakfast sitting on her back. No concerns overnight and her sacral pain has improved since her flap reconstruction yesterday. She has been ambulating in the hallway. We discussed again the importance of being off of her back, laying slightly on her side while eating. Objective Data Objective Data General: Denies fever, chills HEENT: Denies headaches, vision changes, sore throat Cardio: Denies chest pain, leg edema Pulmonary: Denies shortness of pain, cough, wheezing GI: Denies nausea, vomiting, diarrhea Vital Signs: Vital Signs Temp Pulse Resp BP Pulse Ox O2 Del Method O2 Flow Rate 98.4 F 86 16 148/80 H 97 Room Air 4 08/15/25 10:00 08/15/25 10:00 08/15/25 10:00 08/15/25 10:00 08/15/25 10:00 08/15/25 10:00 08/14/25 14:50 Oxygen Flow Rate (L/min) 4 Oxygen Delivery Method Room Air Weight: 134 lb 7.712 oz Body Mass Index (BMI) 28.2 Intake & Output: Intake and Output for Last 24 Hours 08/13/25 08/14/25 08/15/25 23:59 23:59 23:59 Intake Total 1290 / 1290 1899.50 / 1899.50 1752.50 / 1752.50 Output Total 5 / 5 Balance 1290 / 1290 1894.50 / 1894.50 1752.50 / 1752.50 Lab / Micro Data Attestation: I reviewed the patient's lab results. 08/15/25 08:40 08/15/25 08:40 Labs: Laboratory Results - last 24 hr 08/15/25 08:40: WBC 7.9, RBC 4.44, Hgb 12.8, Hct 40.4, MCV 91.0, MCH 28.8, MCHC 31.7 L, RDW Std Deviation 51.8 H, RDW Coeff of Kip 15.6 H, Plt Count 154, MPV 11.0, Immature Gran % (Auto) 0.400, Neut % (Auto) 67.4, Lymph % (Auto) 18.5 L, M oscar % (Auto) 10.8 H, Eos % (Auto) 2.3, Baso % (Auto) 0.6, Absolute Neuts (auto) 5.3, Absolute Lymphs (auto) 1.46, Nucleated RBC % 0, Sodium 140, Potassium 3.7, Chloride 106, Carbon Dioxide 24.3, Anion Gap 9, BUN 7, Creatinine 0.51 L, Estim Creat Clear Calc 43.49 L, Est GFR (MDRD) Non-Af 93, BUN/Creatinine Ratio 14.0, Glucose 92, Calcium 8.2 Micro: Microbiology 08/14/25 10:57 Bone - Sacral Bone Wound Culture - Preliminary No growth-Final to follow 08/12/25 08:16 Bone - Sacral Bone Gram Stain - Final 08/12/25 08:16 Bone - Sacral Bone Wound Culture - Final No growth aerobically. 08/12/25 08:16 Bone - Sacral Bone Anaerobic Culture - Preliminary No growth in 48 hours. 08/12/25 08:16 Tissue Ulcer - Sacral Pressure Sore Gram Stain - Final 08/12/25 08:16 Tissue Ulcer - Sacral Pressure Sore Wound Culture - Final Staphylococcus aureus 08/12/25 08:16 Tissue Ulcer - Sacral Pressure Sore Anaerobic Culture - Preliminary Physical Exam Narrative Afebrile/VSS. Wound VAC intact with good seal. No collection in cartridge. Readjusted to off load flap. No leg edema. SCD's in place. Assessment & Plan Assessment/Plan (1) Stage 4 skin ulcer of sacral region: PLAN: POD #1 Flap reconstruction , POD #3 stage 4 sacral ulcer and bone excision Pain control: per MAR MSSA. Continue Ceftriaxone, Metronidazole. Per ID Plan on 6 weeks abx, likely can do po given good source control (doxy 100mg bid and augmentin 875mg bid). Will have incisional wound VAC until Tuesday08/19/25 with plans to change to Provena wound VAC. DVT ppx: SCD's and SQ Lovenox resume starting today 08/15. OK to resume her anticoagulation starting 08/[address] Cool. Dispo: Patient approved for TCU. (2) Sacral osteomyelitis: Charges/Coding Procedures Integumentary [id number]: [id number] Global Visit
--- NOTE | 2025-08-15 10:24 | PCM.PN.ID ---
Physical Exam Narrative Feeling well s/p OR yesterday. No fever, no n/v. Const alert and no apparent distress General Appearance: cooperative Resp normal air movement and clear to auscultation bilaterally Cardio regular rate and regular rhythm GI soft to palpation, non-tender and non-distended Skin Skin Narrative: surg site bandaged ID ID: Route of nutrition/ use of supplements: [] Nutritional Intake: [] IV Site: [] Rader Catheter: [] Assessment & Plan Assessment/Plan (1) Sacral osteomyelitis: PLAN: Now s/p I&D down to bone 08/12/[address] Cool. Surg cx showing MSSA from one sample so far, will cont ceftriaxone and flagyl for now. Will stop vanc. Taken back to OR 08/14/25 for flap placement. Plan on 6 weeks abx, likely can do po given good source control (doxy 100mg bid and augmentin 875mg bid). Will follow
--- NOTE | 2025-08-15 11:05 | PCM.PN.HOSP ---
Subjective Subjective Feeling well. No issues overnight. Objective Data Objective Data Vital Signs: Vital Signs Temp Pulse Resp BP Pulse Ox O2 Del Method O2 Flow Rate 36.9 C 86 16 148/80 H 97 Room Air 4 08/15/25 10:00 08/15/25 10:00 08/15/25 10:00 08/15/25 10:00 08/15/25 10:00 08/15/25 10:00 08/14/25 14:50 Oxygen Flow Rate (L/min) 4 Oxygen Delivery Method Room Air Weight: 61 kg Body Mass Index (BMI) 28.2 Intake & Output: Intake and Output for Last 24 Hours 08/13/25 08/14/25 08/15/25 23:59 23:59 23:59 Intake Total 1290 / 1290 1899.50 / 1899.50 1752.50 / 1752.50 Output Total 5 / 5 Balance 1290 / 1290 1894.50 / 1894.50 1752.50 / 1752.50 Lab / Micro Data 08/15/25 08:40 08/15/25 08:40 Labs: Laboratory Results - last 24 hr 08/15/25 08:40: WBC 7.9, RBC 4.44, Hgb 12.8, Hct 40.4, MCV 91.0, MCH 28.8, MCHC 31.7 L, RDW Std Deviation 51.8 H, RDW Coeff of Kip 15.6 H, Plt Count 154, MPV 11.0, Immature Gran % (Auto) 0.400, Neut % (Auto) 67.4, Lymph % (Auto) 18.5 L, [place] % (Auto) 10.8 H, Eos % (Auto) 2.3, Baso % (Auto) 0.6, Absolute Neuts (auto) 5.3, Absolute Lymphs (auto) 1.46, Nucleated RBC % 0, Sodium 140, Potassium 3.7, Chloride 106, Carbon Dioxide 24.3, Anion Gap 9, BUN 7, Creatinine 0.51 L, Estim Creat Clear Calc 43.49 L, Est GFR (MDRD) Non-Af 93, BUN/Creatinine Ratio 14.0, Glucose 92, Calcium 8.2 Micro: Microbiology 08/12/25 08:16 Tissue Ulcer - Sacral Pressure Sore Gram Stain - Final 08/12/25 08:16 Tissue Ulcer - Sacral Pressure Sore Wound Culture - Final Staphylococcus aureus 08/12/25 08:16 Tissue Ulcer - Sacral Pressure Sore Anaerobic Culture - Final No anaerobic bacteria isolated. 08/14/25 10:57 Bone - Sacral Bone Wound Culture - Preliminary No growth-Final to follow 08/12/25 08:16 Bone - Sacral Bone Gram Stain - Final 08/12/25 08:16 Bone - Sacral Bone Wound Culture - Final No growth aerobically. 08/12/25 08:16 Bone - Sacral Bone Anaerobic Culture - Preliminary No growth in 48 hours. Physical Exam Const alert and no apparent distress Constitutional Narrative: laying of right side. HEENT head/scalp atraumatic and moist oral mucous membranes Assessment & Plan Assessment/Plan (1) Sacral osteomyelitis: PLAN: Status post debridement today. With plans for closure on the fifth. Infectious disease following and patient is currently on antibiotics with vancomycin, ceftriaxone and metronidazole. Tentative plan is for 6 weeks of antibiotics. Hopefully PO, defer to ID. PLAN: Plan Atrial fibrillation: Rate controlled. Continue diltiazem. Resume apixaban when okay with plastics. Hypothyroidism: Continue with levothyroxine Macular degeneration: Follow-up ophthalmology as outpatient per routine. VTE prophylaxis with enoxaparin. Patient overall stable medically. Will follow peripherally. Charges/Coding Visit Charges Inpatient E&M: 69359 [facility] L1
[2025-08-16 02:21] VITALS: BP 131/67; PULSE 63; RESP 18; TEMP 36.7; O2SAT 94
[2025-08-16 02:39] LABS: Mucous, Urine 0 SEEN /hpf (<or=2+)
[2025-08-16 02:49] LABS: Color, Urine Yellow (Yellow); Glucose, Dipstick Normal (Normal); Ketone-Dipstick 5 mg/dl (Negative); Leukocyte Esterase-Dipstick 25 /ul (Negative); Nitrite-Dipstick Positive (Negative); Occult Blood-Urine 50 /ul (Negative); Protein-Dipstick 15 mg/dl (Negative); Specific Gravity, Urine 1.010 (1.002-1.030); Urine Bilirubin Dipstick Negative (Negative)
[2025-08-16 03:04] LABS: Red Blood Cells-Urine 0-5 SEEN /hpf (0-5); Squamous Epithelial Cells - UA 0-5 SEEN /hpf (5-10)
[2025-08-16] MEDS: 0.9% Normal Saline (1000mL) 1,000 ML 75 ML IV ×2 (05:36→18:44)
[2025-08-16] MEDS: Cholecalciferol (VIT D3) 25 MCG TABLET (1,000 UNITS) 50 MCG PO (07:50)
[2025-08-16 08:14] VITALS: BP 143/74; PULSE 70; RESP 16; TEMP 36.6; O2SAT 94
[2025-08-16 09:04] VITALS: O2SAT 94
[2025-08-16] MEDS: Ceftriaxone 2 GM in 0.9% Normal Saline (50mL MB+) 50 ML IV (09:56)
--- NOTE | 2025-08-16 10:26 | PCM.PN.HOSP ---
Subjective Subjective Feeling well. Some discomfort on buttocks. Objective Data Objective Data Vital Signs: Vital Signs Temp Pulse Resp BP Pulse Ox O2 Del Method O2 Flow Rate 36.6 C 70 16 143/74 H 94 Room Air 4 08/16/25 08:14 08/16/25 08:14 08/16/25 08:14 08/16/25 08:14 08/16/25 09:04 08/16/25 09:04 08/14/25 14:50 Oxygen Flow Rate (L/min) 4 Oxygen Delivery Method Room Air Weight: 61 kg Body Mass Index (BMI) 28.2 Intake & Output: Intake and Output for Last 24 Hours 08/14/25 08/15/25 08/16/25 23:59 23:59 23:59 Intake Total 1899.50 / 1899.50 2283.75 / 2283.75 1342.5 / 1342.5 Output Total 5 / 5 Balance 1894.50 / 1894.50 2283.75 / 2283.75 1342.5 / 1342.5 Lab / Micro Data 08/15/25 08:40 08/15/25 08:40 Labs: Laboratory Results - last 24 hr 08/16/25 02:19: Urine Color Yellow, Urine Clarity Cloudy, Urine pH 6.0, Ur Specific [place] 1.010, Urine Protein 15 H, Urine Glucose (UA) Normal, Urine Ketones 5 H, Urine Occult Blood 50 H, Urine Nitrite Positive H, Urine Bilirubin Negative, Urine Urobilinogen Normal, Ur Leukocyte Esterase 25 H, Urine RBC 0-5 SEEN, Urine WBC 0-5 SEEN, Ur Squamous Epith Cells 0-5 SEEN, Urine Bacteria 1+, Urine Mucus 0 SEEN Micro: Microbiology 08/14/25 10:57 Bone - Sacral Bone Gram Stain - Final 08/14/25 10:57 Bone - Sacral Bone Wound Culture - Final No growth aerobically. 08/12/25 08:16 Tissue Ulcer - Sacral Pressure Sore Gram Stain - Final 08/12/25 08:16 Tissue Ulcer - Sacral Pressure Sore Wound Culture - Final Staphylococcus aureus 08/12/25 08:16 Tissue Ulcer - Sacral Pressure Sore Anaerobic Culture - Final No anaerobic bacteria isolated. 08/12/25 08:16 Bone - Sacral Bone Gram Stain - Final 08/12/25 08:16 Bone - Sacral Bone Wound Culture - Final No growth aerobically. 08/12/25 08:16 Bone - Sacral Bone Anaerobic Culture - Preliminary No growth in 48 hours. Physical Exam Const alert and no apparent distress Constitutional Narrative: up in bed. lying on left side. eating breakfast. Resp normal respiratory effort and no retractions Assessment & Plan Assessment/Plan (1) Sacral osteomyelitis: PLAN: Status post debridement today. With plans for closure on the fifth. Infectious disease following and patient is currently on antibiotics with ceftriaxone and metronidazole. Tentative plan is for 6 weeks of antibiotics. Hopefully PO, defer to ID, possibly doxy 100 BID and Augmentin 875) Patient to have incisional wound vac until 08/19, then change to Provena wound vac. PLAN: Plan Atrial fibrillation: Rate controlled. Continue diltiazem. Plastics ok to resume anticoagulation. Will restart apixaban Hypothyroidism: Continue with levothyroxine Macular degeneration: Follow-up ophthalmology as outpatient per routine. VTE prophylaxis with enoxaparin. Patient overall stable medically. Charges/Coding Visit Charges Inpatient E&M: 98254 [facility] L1
--- NOTE | 2025-08-16 11:14 | CASEMGMT ---
Addendum entered by Rose Hernandez 08/16/25 13:57: Spoke with Dr. Cool, plan for pt to dc tomorrow to TCU now. Received confirmation from ID that pt will dc on po atb. Updated [facility] TCU admissions. Original Note: Updated [facility] TCU admissions that pt will be medically ready for dc Tuesday.
--- NOTE | 2025-08-16 12:17 | WOUNDNOTE ---
In to assess the VAC dressing with Dr Cool. patient had been on the commode and the drape loosened near the anal opening so the VAC was alarming leak. pt got back into bed and this nurse was able to apply drape to get a good seal. Pt aware she is to stay off her sacrum at all times and only turn from side to side. patient self adjusts often and seems to end up on her back. pt was educated again on the importance of offloading.
[2025-08-16 12:49] VITALS: BP 124/56; PULSE 64; RESP 16; TEMP 36.3; O2SAT 92
--- NOTE | 2025-08-16 12:59 | PCM.PN.ID ---
Physical Exam Narrative Feeling ok. Some low back pain, no dysuria or urine changes. None of her typical uti symptoms. No fever. Const alert and no apparent distress General Appearance: cooperative Resp normal air movement and clear to auscultation bilaterally Cardio regular rate and regular rhythm GI soft to palpation, non-tender and non-distended Skin Skin Narrative: no new rash ID ID: Route of nutrition/ use of supplements: [] Nutritional Intake: [] IV Site: [] Rader Catheter: [] Assessment & Plan Assessment/Plan (1) Sacral osteomyelitis: PLAN: Now s/p I&D down to bone 08/12/[address] Cool. Surg cx showing MSSA from one sample so far, will cont ceftriaxone and flagyl for now. Will stop vanc. Taken back to OR 08/14/25 for flap placement. Plan on 6 weeks abx with doxy 100mg bid and augmentin 875mg bid. Some new low back pain but no urinary symptoms, and UA with 0-5 wbc. Abx as above. Will follow, d/w foster care case manager and surgery team.
--- NOTE | 2025-08-16 14:02 | CASEMGMT ---
HAYDE CM NOTE: Both pt and daughter, Cara, notified plan is for pt to discharge to [facility] TCU tomorrow. Johanna GRACE RN CM
[2025-08-16 15:41] VITALS: BP 125/69; PULSE 70; RESP 16; TEMP 36.8; O2SAT 92
[2025-08-16 20:00] VITALS: BP 145/82; PULSE 70; RESP 16; TEMP 36.7; O2SAT 94
[2025-08-16] MEDS: APIXABAN 2.5 MG TABLET (WCH) PO (20:29)
[2025-08-17 02:00] VITALS: BP 145/81; PULSE 68; RESP 18; TEMP 36.5; O2SAT 94
[2025-08-17 08:22] VITALS: O2SAT 95
[2025-08-17 09:41] VITALS: BP 143/71; PULSE 86; RESP 16; TEMP 36.8; O2SAT 94
[2025-08-17] MEDS: Ceftriaxone 2 GM in 0.9% Normal Saline (50mL MB+) 50 ML IV (10:30)
[2025-08-17] MEDS: Cholecalciferol (VIT D3) 25 MCG TABLET (1,000 UNITS) 50 MCG PO (10:32)
[2025-08-17] MEDS: APIXABAN 2.5 MG TABLET (WCH) PO ×2 (10:40→23:04)
--- NOTE | 2025-08-17 12:27 | ANES.CONFIRM ---
Anesthesia: Confirm Documents Multiple Procedures on Account (2) Confirmed Documents: Yes
[2025-08-17] MEDS: 0.9% Normal Saline (1000mL) 1,000 ML 75 ML IV (12:31)
--- NOTE | 2025-08-17 12:37 | DS.PCM_ITS ---
Providers Date of Admission: 08/12/25 Primary Care Physician: Dr. Mil Woodruff MD Consultations 08/12/25 08:00 Consult: Infectious Disease Routine Consulting Provider: Francis Yoo Reason for Consult: Sacral wound EMERGENT Consult: No MD Notified: Yes Date Notified: 08/12/25 Time Notified: 08:00 Method of Notification: Text 08/12/25 08:40 Consult: Hospitalist Routine Consulting Provider: Devin Andrade Reason for Consult: medical comorbidities EMERGENT Consult: No Notified: Yes Date Notified: 08/12/25 Time Notified: 08:41 Method of Notification: Text 08/12/25 15:07 Consult: Onc/Wound/forestry biology specialist Routine Comment: Reason for Consult:: sacral wound with Veraflo vac Reason For Visit: Excision sacral wound with wound vac placement Diagnosis Discharge Diagnosis (1) Sacral osteomyelitis: Status: Acute Code(s): M46.28 - Osteomyelitis of vertebra, sacral and sacrococcygeal region Medications at Discharge Home Medications Immucore 1 tab PO/SL DAILY 10/01/21 atorvastatin 10 mg tablet 10 mg PO QHS 10/01/21 cholecalciferol (vitamin D3) 50 mcg (2,000 unit) capsule (Vitamin D3) 50 mcg PO DAILY 10/01/21 dabigatran etexilate 150 mg capsule (Pradaxa) 150 mg PO BID 10/01/21 dexlansoprazole 60 mg capsule,biphase delayed release (Dexilant) 60 mg PO DAILY 10/01/21 diltiazem HCl 240 mg capsule,extended release 24 hr 240 mg PO DAILY 10/01/21 furosemide 40 mg tablet 40 mg PO BID PRN Edema 10/01/21 lubiprostone 8 mcg capsule (Amitiza) 8 mcg PO BID 10/01/21 milk thistle 150 mg capsule 300 mg PO DAILY 10/01/21 multivitamin 1 cap PO DAILY 10/01/21 polyethylene glycol 3350 17 gram oral powder packet (Miralax) 17 g PO DAILY 10/01/21 levothyroxine 100 mcg tablet 100 mcg PO DAILY 04/22/25 naloxone 4 mg/actuation nasal spray 4 mg intranasal PRN 04/22/25 tramadol 50 mg tablet 50 mg PO Q6H PRN PRN pain 04/22/25 apixaban 2.5 mg tablet (Eliquis) 2.5 mg PO BID 07/29/25 propafenone 150 mg tablet 150 mg PO BID 07/29/25 amoxicillin 875 mg-potassium clavulanate 125 mg tablet 1 tab PO Q12H #74 tabs 08/16/25 doxycycline hyclate 100 mg capsule 100 mg PO BID #74 caps 08/16/25 Hospital Course Summary of Care Provided Hospital Course: Patient underwent flap reconstruction for the sacral wound on 14 Aug 2025 after debridement on 12 Aug 2025. She recovered on the floor thereafter. Cultures grew Staph. ID was consulted. She's medically ready for lateral transfer to the TCU. Physical Exam Narrative VAC holding suction over the incision. Legs with SCDs No swelling on the legs. Weight / BMI Weight Weight: 134 lb 7.712 oz Body Mass Index (BMI) 28.2 ABG / Lab / Microbiology Data 08/15/25 08:40 08/15/25 08:40 Microbiology: Microbiology 08/12/25 08:16 Bone - Sacral Bone Gram Stain - Final 08/12/25 08:16 Bone - Sacral Bone Wound Culture - Final No growth aerobically. 08/12/25 08:16 Bone - Sacral Bone Anaerobic Culture - Final No growth in 5 days. 08/14/25 10:57 Bone - Sacral Bone Gram Stain - Final 08/14/25 10:57 Bone - Sacral Bone Wound Culture - Final No growth aerobically. 08/14/25 10:57 Bone - Sacral Bone Anaerobic Culture - Preliminary Checking for anaerobes, further studies to follow. 08/12/25 08:16 Tissue Ulcer - Sacral Pressure Sore Gram Stain - Final 08/12/25 08:16 Tissue Ulcer - Sacral Pressure Sore Wound Culture - Final Staphylococcus aureus 08/12/25 08:16 Tissue Ulcer - Sacral Pressure Sore Anaerobic Culture - Final No anaerobic bacteria isolated. D/C Instructions Additional Activity Instructions: Needs pressure offloading bed and q4 hour turns. No laying supine. DC O2, CPAP, BIPAP Needs Home O2 Discharge instructions: No Meaningful Use Info Meaningful Use Meaningful Use Diagnoses (Choose all that apply): None applicable Discharge Plan Admission Admit Date/Time: 08/12/25 07:52 Attending Provider: Francis Cool Primary Care Provider: Mil Woodruff Consulting Providers: Francis Yoo; Devin Andrade Discharge Orders/Prescriptions Prescriptions: New doxycycline hyclate 100 mg capsule 100 mg PO BID Qty: 74 0RF amoxicillin-pot clavulanate 875-125 mg tablet 1 tab PO Q12H Qty: 74 0RF No Action furosemide 40 mg Tablet 40 mg PO BID PRN (Reason: Edema) polyethylene glycol 3350 [Miralax] 17 gram Powder In Packet 17 g PO DAILY atorvastatin 10 mg Tablet 10 mg PO QHS diltiazem HCl 240 mg Capsule,Extended Release 24hr 240 mg PO DAILY milk thistle 150 mg Capsule 300 mg PO DAILY multivitamin Capsule 1 cap PO DAILY lubiprostone [Amitiza] 8 mcg Capsule 8 mcg PO BID cholecalciferol (vitamin D3) [Vitamin D3] 50 mcg (2,000 unit) Capsule 50 mcg PO DAILY dexlansoprazole [Dexilant] 60 mg Capsule,Biphase Delayed Releas 60 mg PO DAILY dabigatran etexilate [Pradaxa] 150 mg Capsule 150 mg PO BID Immucore 1 tab PO/SL DAILY tramadol 50 mg tablet 50 mg PO Q6H PRN PRN (Reason: pain) naloxone 4 mg/actuation spray,non-aerosol 4 mg INTRANASAL PRN Patient Comments: [NO ORIGINAL SIG] levothyroxine 100 mcg tablet 100 mcg PO DAILY Eliquis 2.5 mg tablet 2.5 mg PO BID Patient Comments: STOP 3 DAYS PRIOR TO PROCEDURE propafenone 150 mg tablet 150 mg PO BID Referrals / Follow Up: Mil Woodruff MD [Primary Care Provider, Family Practice]
--- NOTE | 2025-08-17 13:30 | PN.HOSP_ITS ---
Subjective Subjective Feels well. Complains of difficulty swallowing. Objective Data Objective Data Vital Signs: Vital Signs Temp Pulse Resp BP Pulse Ox O2 Del Method O2 Flow Rate 36.8 C 86 16 143/71 H 94 Room Air 4 08/17/25 09:41 08/17/25 09:41 08/17/25 09:41 08/17/25 09:41 08/17/25 09:41 08/17/25 09:41 08/14/25 14:50 Oxygen Flow Rate (L/min) 4 Oxygen Delivery Method Room Air Weight: 61 kg Body Mass Index (BMI) 28.2 Intake & Output: Intake and Output for Last 24 Hours 08/15/25 08/16/25 08/17/25 23:59 23:59 23:59 Intake Total 2283.75 / 2283.75 2551.25 / 2551.25 1050 / 1050 Balance 2283.75 / 2283.75 2551.25 / 2551.25 1050 / 1050 Lab / Micro Data 08/15/25 08:40 08/15/25 08:40 Micro: Microbiology 08/12/25 08:16 Bone - Sacral Bone Gram Stain - Final 08/12/25 08:16 Bone - Sacral Bone Wound Culture - Final No growth aerobically. 08/12/25 08:16 Bone - Sacral Bone Anaerobic Culture - Final No growth in 5 days. 08/14/25 10:57 Bone - Sacral Bone Gram Stain - Final 08/14/25 10:57 Bone - Sacral Bone Wound Culture - Final No growth aerobically. 08/14/25 10:57 Bone - Sacral Bone Anaerobic Culture - Preliminary Checking for anaerobes, further studies to follow. 08/12/25 08:16 Tissue Ulcer - Sacral Pressure Sore Gram Stain - Final 08/12/25 08:16 Tissue Ulcer - Sacral Pressure Sore Wound Culture - Final Staphylococcus aureus 08/12/25 08:16 Tissue Ulcer - Sacral Pressure Sore Anaerobic Culture - Final No anaerobic bacteria isolated. Physical Exam Const alert and no apparent distress Constitutional Narrative: lying on left side in bed. pleasant. afebrile. HEENT head/scalp atraumatic HEENT Narrative: white coating over the tongue. Mouth: dry mucous membranes Assessment & Plan Assessment/Plan (1) Sacral osteomyelitis: PLAN: Status post debridement today. With plans for closure on the fifth. Infectious disease following and patient is currently on antibiotics with ceftriaxone and metronidazole. Tentative plan is for 6 weeks of antibiotics. Hopefully PO, defer to ID, possibly doxy 100 BID and Augmentin 875) Patient to have incisional wound vac until 08/19, then change to Provena wound vac. (2) Thrush: PLAN: / abx add nystatin. would treat for 14 days. PLAN: Plan Atrial fibrillation: Rate controlled. Continue diltiazem. Plastics ok to resume anticoagulation. Will restart apixaban Hypothyroidism: Continue with levothyroxine Macular degeneration: Follow-up ophthalmology as outpatient per routine. VTE prophylaxis with enoxaparin. Patient overall stable medically. Will sign off. Please call with questions/concerns or reconsult. Charges/Coding Visit Charges Inpatient E&M: 91090 [facility] L1
[2025-08-17] MEDS: NYSTATIN 500,000 UNIT/5 ML UDC 500000 UNIT PO ×3 (14:33→21:48)
[2025-08-17 14:36] VITALS: BP 142/77; PULSE 76; RESP 16; TEMP 37.1; O2SAT 92
[2025-08-17 23:50] VITALS: BP 134/70; PULSE 73; RESP 16; TEMP 36.5; O2SAT 93
[2025-08-17 23:52] VITALS: PULSE 73; RESP 16; O2SAT 93
[2025-08-18] MEDS: 0.9% Normal Saline (1000mL) 1,000 ML 75 ML IV (02:00)
[2025-08-18 05:29] VITALS: BP 132/71; PULSE 73; RESP 16; TEMP 36.6; O2SAT 94
[2025-08-18 07:56] VITALS: O2SAT 94
[2025-08-18 08:21] VITALS: BP 112/81; PULSE 77; RESP 16; TEMP 36.7; O2SAT 93
[2025-08-18] MEDS: APIXABAN 2.5 MG TABLET (WCH) PO (09:37)
[2025-08-18] MEDS: NYSTATIN 500,000 UNIT/5 ML UDC 500000 UNIT PO (09:37)
[2025-08-18] MEDS: Cholecalciferol (VIT D3) 25 MCG TABLET (1,000 UNITS) 50 MCG PO (09:42)
[2025-08-18] MEDS: Ceftriaxone 2 GM in 0.9% Normal Saline (50mL MB+) 50 ML IV (09:53)
--- NOTE | 2025-08-18 12:10 | PCM.TXEXTCAR ---
Diet Diet Order/Speech Therapy: INPATIENT Hospital Diet / Speech Therapy Order(s) 08/14/25 14:28 Diet: Regular - General Type of Dietary Supplement:: Magic Cup Dessert Diet Comments: vanilla or soto magic cup w/ meals DC O2, CPAP, BIPAP needs Home O2 Discharge instructions: No Wound(s) Coccyx: Wound Type: wound vac Suggestions for Active Care Change Position every (hours): 4 Positions to Avoid: NO SUPINE POSITION (CANNOT LAY ON THE SACRUM AT ALL FOR ANOTHER 2.5 WEEKS). Hours to sit in a chair: 0 Times a day to sit in chair: 0 Therapies Weight Bearing: Full weight bearing (walk every day several times to avoid blood clot ) Physical Therapy: Eval and Treat Occupational Therapy: Eval and Treat Problem/Diagnosis (1) Sacral osteomyelitis: Status: Acute Code(s): M46.28 - Osteomyelitis of vertebra, sacral and sacrococcygeal region Comment: Continue the incision VAC (2) Thrush: Status: Acute Code(s): B37.0 - Candidal stomatitis Comment: continue to treat Plan I saw and examined her today. She's ready for rehab. I will remove incisional VAC tomorrow to check no the flap (POD5) Allergies/Procedures Done in Hospital Allergies hydrocodone (From [place]) Allergy (Severe, Verified 08/12/25 23:33) Itching oxycodone Allergy (Severe, Verified 08/12/25 23:33) Itching adhesive tape Adverse Reaction (Verified 08/12/25 07:22) Rash SURGICAL TAPE NSAIDS (Non-Steroidal Anti-Inflamma Adverse Reaction (Verified 08/12/25 07:22) Nausea Type of Care/Length of Stay Estimated LOS: Convalescent Care Less Than 30 days Type of Care Needed: Acute Rehab Rehab Potential: Good Prognosis: Good Additional Orders/Day of Discharge Day of Discharge: 08/18/25 Dietary and Speech Recommendations Dietitian Recommendations/Changes: Continue regular diet. Will discontinue extra 2-3 ounces of dietary protein with each meal and air analysis engineering technician magic cup w/ meals instead per pt request. Will monitor weight trends. Discharge Plan Admission Admit Date/Time: 08/12/25 07:52 Attending Provider: Francis Cool Primary Care Provider: Mil Woodruff Consulting Providers: Francis Yoo; Devin Andrade Discharge Orders/Prescriptions Prescriptions: New doxycycline hyclate 100 mg capsule 100 mg PO BID Qty: 74 0RF amoxicillin-pot clavulanate 875-125 mg tablet 1 tab PO Q12H Qty: 74 0RF No Action furosemide 40 mg Tablet 40 mg PO BID PRN (Reason: Edema) polyethylene glycol 3350 [Miralax] 17 gram Powder In Packet 17 g PO DAILY atorvastatin 10 mg Tablet 10 mg PO QHS diltiazem HCl 240 mg Capsule,Extended Release 24hr 240 mg PO DAILY milk thistle 150 mg Capsule 300 mg PO DAILY multivitamin Capsule 1 cap PO DAILY lubiprostone [Amitiza] 8 mcg Capsule 8 mcg PO BID cholecalciferol (vitamin D3) [Vitamin D3] 50 mcg (2,000 unit) Capsule 50 mcg PO DAILY dexlansoprazole [Dexilant] 60 mg Capsule,Biphase Delayed Releas 60 mg PO DAILY dabigatran etexilate [Pradaxa] 150 mg Capsule 150 mg PO BID Immucore 1 tab PO/SL DAILY tramadol 50 mg tablet 50 mg PO Q6H PRN PRN (Reason: pain) naloxone 4 mg/actuation spray,non-aerosol 4 mg INTRANASAL PRN Patient Comments: [NO ORIGINAL SIG] levothyroxine 100 mcg tablet 100 mcg PO DAILY Eliquis 2.5 mg tablet 2.5 mg PO BID Patient Comments: STOP 3 DAYS PRIOR TO PROCEDURE propafenone 150 mg tablet 150 mg PO BID Referrals / Follow Up: Mil Woodruff MD [Primary Care Provider, Family Practice]
[2025-08-18 13:43] VITALS: BP 125/81; PULSE 81; RESP 16; TEMP 36.8; O2SAT 93
== END 2025-08-18 14:00 | DRG 463 ==
LOC: SDC 14:02 → MS3 14:02
PROVIDERS: Anesthesiology; Internal Medicine Infectious Disease; Physician Assistant; Admitting Provider Surgery Plastic and Reconstructive Surgery; PCP Family Medicine; Referring Provider Surgery Plastic and Reconstructive Surgery; Visit Provider Surgery Plastic and Reconstructive Surgery
PROC: 0QB10ZZ Excision of Sacrum, Open Approach (ICD-10-PCS; principal; 2025-08-12 07:15)
PROC: 0JX70ZC Transfer Back Subcutaneous Tissue and Fascia with Skin, Subcutaneous Tissue and Fascia, Open Approach (ICD-10-PCS; principal; 2025-08-14 08:45)
DX: M46.28 Osteomyelitis of vertebra, sacral and sacrococcygeal region (principal); L89.154 Pressure ulcer of sacral region, stage 4; B37.0 Candidal stomatitis; E03.9 Hypothyroidism, unspecified; I48.91 Unspecified atrial fibrillation; E78.00 Pure hypercholesterolemia, unspecified; H35.30 Unspecified macular degeneration; B95.61 Methicillin susceptible Staphylococcus aureus infection as the cause of diseases classified elsewhere; Z79.01 Long term (current) use of anticoagulants; Z79.890 Hormone replacement therapy; Z79.899 Other long term (current) drug therapy
CPT/HCPCS: 36415; 80048; 80053; 80202; 81001; 82565; 83735; 84100; 84443; 85025; 85610; 85730; 87015; 87070; 87075; 87077; 87102; 87116; 87176; 87186; 87205; 87206; 88305; 88311; 93005; 94668; 97116; 97162; 97166; 97530; 97535; 97802; 99252; A4216; G0463; J0696; J2405

== ENCOUNTER 2025-08-18 14:24 | Inpatient (IN) | payer MEDICARE, OTHER, SELFPAY ==
--- OUTSIDE RECORDS SUMMARY | 2025-08-18 15:13 | XMS RPT_ITS | CCD ---
Author Organization [facility] Care Team Providers Care Senior Counsel Name Role Phone Sancho Woodruff Unavailable Unavailab Haroon Salinas Unavailable Americo Lee Unavailable Denisse Streeter Unavailable Denisse Streeter Unavailable Unavailable Denisse Streeter Unavailable Unavailable Sancho Woodruff Primary Care Provider Haroon Quintanilla Unavailable [phone] Americo Lee Unavailable Denisse Streeter Unavailable SYSTEM, PROVIDER NOT IN Attending Unavaila ble SYSTEM, PROVIDER NOT IN Referring Unavaila ble SANCHO WOODRUFF Primary Care Unavailab Sancho Ronquillo Unavailable Unavailable Oksana Ocampo Unavailable Unavailable StenSancho damon Unavailable Unavailable Stenabdirizak, Sancho Unavailable Unavailable Sancho Woodruff Primary Care Provider Haroon Quintanilla Unavailable Americo Lee Unavailable Denisse Streeter Unavailable Sancho Woodruff MD Primary Care Provider Haroon Quintanilla MD Unavailable Americo Lee MD Unavailable [phone] Denisse Streeter CNP Unavailable [phone] Sancho Woodruff Unavailable [phone] Unavailable Unavailable Haroon Quintanilla MD Unavailable Unavailable Unavailable Haroon Quintanilla MD Unavailable [facility], Denisse J. Unavailable [phone] [facility], Denisse J. Unavailable Sancho Woodruff MD Primary Care Provider Haroon Quintanilla MD Unavailable Jesus PIERRE, Americo Sheehan Unavailable [facility], Denisse J. Unavailable [facility], Denisse J. Unavailable Kacy, Sancho Unavailable Xin Pereira Unavailable Unavailable Kacy PIERRE, Sancho Casey Primary Care Provider Haroon Quintanilla MD Unavailable Jesus PIERRE, Americo Sheehan Unavailable [phone] [facility], Denisse JKamilla Unavailable Oksana Ocampo Unavailable Shahid Colunga Unavailable Burt Calhoun Unavailable [phone] Kacy PIERRE, Sancho Primary Care Provider Sancho Woodruff MD Unavailable [phone] Darrell LOCK, Magalis Unavailable Unavailable Stencel, Dr. Sancho Casey Attending Unava ilable Stencel, Dr. Sancho Casey Primary Care Unava ilable Zvera, Dr. Maria Teresa Sousa Admitting Unav ailable Zumbar, Dr. Maria Teresa Sousa Attending Unav ailable Stencel, Dr. Sancho Casey Referring Unava ilable Stencel, Dr. Sancho Casey Primary Care Rhondava ilable Burt Calhoun Attending Unavailable Stencel, Dr. Sancho Casey Primary Care Rhondava ilable Burt Calhoun Attending Unavailable Stencel, Dr. Sancho Casey Primary [...] Dr. Sancho Casey Primary Care Unava ilable Damaris, Oksana Admitting Unavailable Thommaria eugenia, Oksana Attending Unavailable Wood, MsKamilla Wilson Referring Unav ailable Stencel, Dr. Sancho Casey Primary Care Unava ilable Zumbar, Dr. Maria Teresa Sousa Admitting Unav ailable Zumbar, Dr. Maria Teresa Sousa Attending Unav ailable Stencel, Dr. Sancho Casey Referring Unava ilable Stencel, Dr. Sancho Casey Primary Care Unava ilable Burt Calhoun Attending Unavailable Stencel, Dr. Sancho Casey Primary Care Unava ilable Zumbar, Dr. Maria Teresa Sousa Attending Unav ailable Stencel, Dr. Sancho Casey Primary Care Unava ilable BRIAN, DO SHAHID KINGSLEY Admitting Rhonda vailable BRIAN, DO SHAHID KINGSLEY Attending Rhonda vailable BRIAN, DO SHAHID KINGSLEY Referring Hronda vailable Stencel, Dr. Sancho Casey Primary Care Unava ilable Xin Pereira Attending Unavailable Stencel, Dr. Sancho Casey Primary Care Unava ilable Stencel Sancho PIERRE Primary Care Provider [phone] Sancho Woodruff MD Unavailable [phone] Sancho Woodruff MD Primary Care Provider Haroon Quintanilla MD Unavailable [phone] Americo Lee MD Unavailable Denisse Streeter CNP Unavailable BIMAL PATTERSON Attending Unavailab le STENCEL, SANCHO CASEY Primary Care Unavailab le Thommaria eugenia, Dr. Oksana Alegria Attending Unavailable Stencel, Dr. Sancho Casey [...] Unava ilable Darrell LOCK, Magalis Unavailable Unavailable Kacy PIERRE, Sancho Becker Unavailable Sancho Woodruff MD Primary Care Provider SANCHO WOODRUFF Primary Care Unavailable STENCEL, SANCHO Becker Primary Care Unavailable STENCEL, ASNCHO Becker Primary Care Unavailable JAYLAN MOSCOSO Referring Unavailable JAYLAN MOSCOSO Attending Unavailable STENCEL, SANCHO CASEY Primary Care Unavailab le STENCEL, SANCHO CASEY Primary Care Unavailab le DANISJAYLAN DAVILA Attending Unavailable JAYLAN MOSCOSO Admitting Unavailable Sancho Woodruff MD Unavailable Sancho Woodruff MD Primary Care Provider Kacy PIERRE, Dr. Kingsley Primary Care Provider [phone] Dr. Sylvia Cool MD Attending Provider Dr. Sylvia Cool MD Referring Provider Dr. Sylvia Cool MD Other Provider Dr. Sancho Woodruff MD Primary Care Provider Dr. Sylvia Cool MD Attending Provider Dr. Sylvia Cool MD Referring Provider Dr. Sylvia Cool MD Other Provider Dr. Vineet Singleton MD Attending Provider JAYLAN MOSCOSO Attending Unavailable STENCEL, SANCHO CASEY Primary Care Unavailab le VOSSCHRISTINE SWANN Attending Unavailable STENCEL, SANCHO CASEY Primary Care Unavailab le JOSE A ORNELAS Attending Unavailable STENCEL, SANCHO CASEY Primary Care Unavailab le STENCEL, SANCHO CASEY Primary Care Unavailab le BORGES, WANG MARTINEZ Attending Unavailable STENCEL, SANCHO CASEY Primary Care Unavailab le BORGES, WANG JUAN Attending Unavailable STENCELSANCHO Primary Care Unavailab JAYLAN Hudson Attending Unavailable Stencel Dr. Sancho PIERRE Primary Care Physician Silvina PIERRE, Dr. Blanco Attending Physician Dr. Sylvia Cool MD Nurse Practitioner Dr. Vineet Singleton MD Attending Physician Sancho Woodruff MD Unavailable Sancho Woodruff MD Primary Care Provider DARIELA GARZA Referring Unavailable STENCEL, SANCHO Becker Primary Care Unavailable DARIELA GARZA Referring Unavailable STENCEL, SANCHO Becker Primary Care Unavailable MAYKEL DARIELA C Referring Unavailable STENCEL, SANCHO Becker Primary Care Unavailable GARZADARIELA BARRY Referring Unavailable STENCEL, SANCHO Becker Primary Care Unavailable DARIELA GARZA Referring Unavailable STENCEL, SANCHO Becker Primary Care Unavailable DARIELA GARZA Referring Unavailable STENCEL, SANCHO Becker Primary Care Unavailable DARIELA GARZA Referring Unavailable STENCEL, SANCHO Becker Primary Care Unavailable DARIELA GARZA Referring Unavailable STENCEL, SANCHO Becker Primary Care Unavailable DARIELA GARZA Referring Unavailable STENCEL, SANCHO Becker Primary Care Unavailable GARZA, DARIELA Shameka Referring Unavailable STENCEL, SANCHO Becker Primary Care Unavailable GARZA, DARIELA Shameka Referring Unavailable STENCEL, SANCHO Becker Primary Care Unavailable GARZADARIELA BARRY Referring Unavailable STENCEL, SANCHO Becker Primary Care Unavailable GARZA, DARIELA Shameka Referring Unavailable STENCEL, SANCHO Becker Primary Care Unavailable GARZA, DARIELA Shameka Referring Unavailable STENCEL, SANCHO Becker Primary Care Unavailable GARZA, DARIELA C Referring Unavailable STENCEL, SANCHO Becker Primary Care Unavailable GARZA, DARIELA C Referring Unavailable STENCEL, SANCHO Becker Primary Care Unavailable GARZA, DARIELA Shameka Referring Unavailable STENCEL, SANCHO Becker Primary Care Unavailable GARZA, DARIELA C Referring Unavailable STENCEL, SANCHO Becker Primary Care Unavailable GARZA, DARIELA C Referring Unavailable STENCEL, SANCHO Bceker Primary Care Unavailable GARZA, DARIELA C Referring Unavailable STENCEL, SANCHO Becker Primary Care Unavailable GARZA, DARIELA C Referring Unavailable STENCEL, SANCHO Becker Primary Care Unavailable GARZA, DARIELA C Referring Unavailable STENCEL, SANCHO Becker Primary Care Unavailable GARZA, DARIELA C Referring Unavailable STENCEL, SANCHO D Primary Care Unavailable GARZADARIELA BARRY Referring Unavailable STENCEL, SANCHO D Primary Care Unavailable GARZADARIELA DEVINE Referring Unavailable STENCEL, SANCHO D Primary Care Unavailable GARZADARIELA BARRY Referring Unavailable STENCEL, SANCHO D Primary Care Unavailable GARZA, DARIELA Myles Referring Unavailable STENCEL, SANCHO D Primary Care Unavailable GARZA, DARIELA C Referring Unavailable STENCEL, SANCHO D Primary Care Unavailable STENCEL, SANCHO D Referring Unavailable STENCEL, SANCHO D Primary Care Unavailable SISKA, SYLVIA C Referring Unavailable STENCEL, SANCHO D Primary Care Unavailable SISKA, SYLVIA Shameka Referring Unavailable STENCEL, SANCHO D Primary Care Unavailable SISKA, SYLVIA Shameka Referring Unavailable STENCEL, SANCHO D Primary Care Unavailable SISKA, SYLVIA Shameka Referring Unavailable STENCEL, SANCHO D Primary Care Unavailable SISKA, SYLVIA C Referring Unavailable STENCEL, SANCHO D Primary Care Unavailable SISKA, SYLVIA Shameka Referring Unavailable STENCEL, SANCHO D Primary Care Unavailable SISKA, SYLVIA Shameka Referring Unavailable STENCEL, SANCHO D Primary Care Unavailable SISKA, SYLVIA Shameka Referring Unavailable STENCEL, SANCHO D Primary Care Unavailable SISKA, SYLVIA C Referring Unavailable STENCEL, SANCHO D Primary Care Unavailable SISKA, SYLVIA Shameka Referring Unavailable STENCEL, SANCHO D Primary Care Unavailable SISKA, SYLVIA Shameka Referring Unavailable STENCEL, SANCHO D Primary Care Unavailable SISKA, SYLVIA Shameka Referring Unavailable STENCEL, SANCHO D Primary Care Unavailable SISKA, SYLVIA C Referring Unavailable STENCEL, SANCHO D Primary Care Unavailable SISKA, SYLVIA Shameka Referring Unavailable STENCEL, SANCHO D Primary Care Unavailable SISKA, SYLVIA Shameka Referring Unavailable STENCEL, SANCHO D Primary Care Unavailable SISKA, SYLVIA Shameka Referring Unavailable STENCEL, SANCHO D Primary Care Unavailable SISKA, SYLVIA Shameka Referring Unavailable STENCEL, SANCHO D Primary Care Unavailable SISKA, SYLVIA Shameka Referring Unavailable STENCEL, SANCHO D Primary Care Unavailable SISKA, SYLVIA Shameka Referring Unavailable STENCEL, SANCHO D Primary Care Unavailable SISKA, SYLVIA Shameka Referring Unavailable STENCEL, SANCHO D Primary Care Unavailable TONY CASIANO Attending Unavailable STENCEL, SANCHO D Primary Care Unavailable SISKA, SYLVIA Shameka Referring Unavailable STENCEL, SANCHO D Primary Care Unavailable SISKA, SYLVIA Shameka Referring Unavailable STENCEL, SANCHO D Primary Care Unavailable SISKA, SYLVIA Shameka Referring Unavailable STENCEL, SANCHO D Primary Care Unavailable SISKA, SYLVIA Shameka Referring Unavailable STENCEL, SANCHO D Primary Care Unavailable SISKA, SYLVIA Shameka Referring Unavailable STENCEL, SANCHO D Primary Care Unavailable SISKA, SYLVIA Shameka Referring Unavailable STENCEL, SANCHO D Primary Care [...] STENCEL, SANCHO D Primary Care Unavailable GARZADARIELA Attending Unavailable STENCEL, SANCHO D Referring Unavailable STENCEL, SANCHO D Primary Care Unavailable GARZADARIELA BARRY Attending Unavailable STENCEL, SANCHO D Primary Care Unavailable GARZADARIELA BARRY Attending Unavailable STENCEL, SANCHO D Primary Care Unavailable STENCEL, SANCHO D Attending Unavailable STENCEL, SANCHO D Referring Unavailable STENCEL, SANCHO D Primary Care Unavailable GARZADARIELA BARRY Attending Unavailable STENCEL, SANCHO D Primary Care Unavailable GARZA, DARIELA Myles Attending Unavailable STENCEL, SANCHO D Primary Care Unavailable Siska, Sylvia Referring Unavailable Siska, Sylvia Admitting Unavailable Stencel, Sancho Primary Care Unavailable Devin Andrade Attending Unavailable Fredo, Sylvia Consulting Unavailable Devin Andrade Consulting Unavailable Siska, Sylvia Consulting Unavailable Siska, Sylvia [...] Unavailable Siska, Sylvia Attending Unavailable Siska, Sylvia Admitting Unavailable Siska, Sylvia Attending Unavailable Stencel, Sancho Primary Care Unavailable Siska, Sylvia Referring Unavailable Siska, Sylvia Consulting Unavailable Siska, Sylvia Attending Unavailable Stencel, Sancho Primary Care Unavailable Siska, Sylvia Referring [facility]available [facility] Childrens Consulting U Li Rinaldi Consulting Unavailable Pretty Lagos Consulting Unavailable UpElzbieta melton Consulting Unavailable Corporate, Care Consulting Unavailable Counseling, Center Consulting Unavailable Xavi Duarte Consulting Unavailable Josue Garcia Consulting Unavailable Terrie Gatica Consulting Unavailable Diego Gill Consulting Unavailable Elissa Gomez Consulting Unavailable Tessa Stone Consulting Unavailable Abe Mendoza Consulting Unavailable Lucia Fay Consulting Unavailable Quentin Leroy Consulting Unavailable Ovidio Granados Consulting Unavailable Roc Christian Consulting Unavailable Tracy Cui Consulting Unavailable Wu Elias Consulting Unavailable Nancy Isaacs Consulting Unavailable Favio Keys Consulting Unavailable Wanda Santillan Consulting Unavailable Silvio Torres Consulting Unavailable Alexandro Hurd Consulting Unavailable Ju Shi Consulting Unavailable Zachariah Charles Consulting Unavailable Luis M Silva Consulting Unavailable Jennifer Holt Consulting Unavailable Evelin Chu Consulting Unavail able Zachariah Cobb Consulting Unavailable Ju Lainez Consulting Unavailable Luis M Allred Consulting Unavailable Luis M Johansen Consulting Unavailable Luis M Valdes Consulting Unavailable Devin Vale Consulting Unavailable Avery Bonilla Consulting Unavailable Devin Carter Consulting Unavailable Devin Chamberlain Consulting Unavailable Mercedes Pedersen Consulting Unavailable Malena Lariso Consulting Unavailable Jacquelyn Nelson Consulting Unavailable Renate Shay Consulting Unavailable Meryl Garcia Consulting Unavailable Chante Ritter Consulting Unavailable Mitch Hilton Consulting Unavailable Americo Santillan Consulting Unavailable Sandor Santillan Consulting Unavailable Abram Romano Consulting Unavailable Mitch Durand Consulting Unavailable Mitch Luevano Consulting Unavailable Lauro Philip Consulting Unavailable Americo Raines Consulting Unavailable Sandor Florentino Consulting Unavailable Sandor Blair Consulting Unavailable Americo Dillon Consulting Unavailable Zachary Tran Consulting Unavailable Chante Villanueva Consulting UnavailAmerico Reddy Consulting Unavailable Mitch Turpin Consulting Unavailable Ellyn Wade Consulting Unavailable Erika John Consulting Unavailable Vicky Patten Consulting Unavailable Marilyn Wong Consulting Unavailable Moo Leroy Consulting Unavailable Moo Hermosillo Consulting Unavailable Marilyn Dixon Consulting Unavailable Paola Kiran Consulting Unavailable Britton Guillen Consulting Unavailable Soni Santillan Consulting Unavailable Vineet Blackwell Consulting Unavailable Vineet Singleton Consulting Unavailable Mónica Munoz Consulting Unavailable Mindi Jackman Consulting Unavailable Sancho Contreras Consulting Unavailable Elisha Bhatt Consulting Unavailable Dariela Ruiz Consulting Rhonda Nam Galvan Consulting Unavailable Stephane Crabtree Consulting Unavailable Sancho Zelaya Consulting Unavailable Gricelda Miller Consulting Unavailable Sancho Clark Consulting Unavailable Prashant Fitzgerald Consulting Unavailable Dariela Moss Consulting Unavailable Naresh Cedeno Consulting Unavailable Calista Salguero Consulting Unavailable Topher Adan Consulting Unavailable Nelida Nunez Consulting Unavailable Yusuf Caal Consulting Unavailable Yusuf Pruitt Consulting Unavailable Ebony Zuluaga Consulting Unavailable Dexter Chauhan Consulting Unavailable Lee Carter Consulting Unavailable Sylvia Curtis Consulting Unavailable Sylvia Hudson Consulting Unavailable Lee Santillan Consulting Unavailable Phil Guerrero Consulting UnavailSylvia Shields V Consulting Unavailable Caden Rivera Consulting Unavailable Bira Russo Consulting Unavailable Bria Motta Consulting Unavailable Lisa Grady Consulting Unavailable Caden Salas Consulting Unavailable Lucius Nick Consulting Unavailable Severo Perez Consulting Unavailable Severo Gonzalez Consulting Unavailable Riki Malik Consulting Unavailable Severo Mg Consulting Unavailable Severo Walden Consulting Unavailable Eleazar Latham Consulting Unavailable Nancy Carbajal Consulting Unavailable Adrien Quevedo Chi Consulting Unavailable Bari Chun Consulting Unavailable Shola Turner Consulting Unavailable Bala Otero Consulting Unavailable Randall Naranjo Consulting Unavailable Randall Mccollum Consulting Unavailable Jigar Saldivar Consulting Unavailable Joe Majano Consulting Unavailable Health, Employee Consulting Unavailable Behavioral, Health [facility] Consulting UnavailMitch Nava Consulting Unavailable Timbo, [facility] Consulting Unava ilable [facility], [facility] Consulting Unavailable Marilyn Guerrero Consulting Unavailable Daniela Vaughan Consulting Unavailable Eighty, One Consulting Unavailable Douglas Amosison Consulting Unavailable Kalyani Caal Consulting [facility] Unavailable [facility], [facility] Wound and Consultin g Unavailable Dentist, Your Consulting Unavailable Doctor, Your Consulting Unavailable Sylvia Cool Consulting Unavailable Sylvia Cool Attending Unavailable Sancho Woodruff Primary Care Unavailable Sylvia Cool Referring Unavailable Sylvia Cool Referring Unavailable Sylvia Cool Consulting Unavailable Siska, Sylvia Attending Unavailable Stencel, Riviera Primary Care Unavailable Siska, Sylvia Referring Unavailable Siska, Sylvia Consulting Unavailable Siska, Sylvia Attending Unavailable Stencel, Riviera Primary Care Unavailable Chayo Pearl Attending Unavailable Siska, Sylvia Referring Unavailable Siska, [...] Primary Care Unavailable Siska, Sylvia Referring Unavailable Allergies Allergy Classification Reported Allergen(s) Allergy Type Date of Onset Reaction(s) Facility cyclobenzaprine (1 source) cyclobenzaprine Drug Allergy [facility] hydroCHLOROthiazide / Lisinopril (4 sources) hydroCHLOROthiazide / Lisinopril; Translations: [Zestoretic TABS] Drug Allergy [facility] Latex (1 source) Latex Substance Allergy [facility] NSAIDs (7 sources) Ibuprofen; Translations: [Lodine] Drug Allergy Other (See Comments), GI Intolerance [facility] Opioid Agonists (4 sources) Codeine; Translations: [Codeine] Drug Allergy Other (See Comments) [facility] (20 sources) codeine; Translations: [Codeine] Propensity to adverse reactions to drug Other (See Comments), Unknown, Other [facility] Comment on above: nausea (20 sources) cyclobenzaprine; Translations: [CYCLOBENZAPRINE] Propensity to adverse reactions to drug Other, Other (See Comments) [facility] (20 sources) ibuprofen; Translations: [Advil TABS] Propensity to adverse reactions to drug Other (See Comments), GI Intolerance, Unknown, Nausea Only, Other [facility] (20 sources) Latex; Translations: [LATEX] Propensity to adverse reactions to drug Rash [facility] (20 sources) ADHESIVE TAPE-SILICONES; Translations: [ADHESIVE TAPE-SILICONES] Propensity to adverse reactions to drug Rash [facility] (20 sources) NYLON; Translations: [Unknown] Propensity to adverse reactions to drug 09-27-2 016 Unknown [facility] (20 sources) Etodolac; Translations: [Lodine] Drug Allergy [facility] Work Phone: (20 sources) hydroCHLOROthiazide / Lisinopril; Translations: [Zestoretic TABS] Drug Allergy 020 Unknown [facility] Work Phone: (20 sources) Tape 1X5YD TAPE; Translations: [Tape 1X5YD TAPE] Allergy to drug (finding) [facility] Work Phone: (20 sources) Adhesive agent; Translations: [ADHESIVE] Drug Intolerance [facility] (20 sources) Etodolac; Translations: [ETODOLAC] Drug Allergy 023 [facility] Work Phone: (6 sources) hydroCHLOROthiazide / Lisinopril; Translations: [LISINOPRIL-HYDROCHLO ROTHIAZIDE] Drug Allergy [facility] Repository (17 sources) Non-steroidal anti-inflammatory agent; Translations: [NSAIDS (NON-STEROIDAL ANTI-INFLAMMATORY DRUG)] Propensity to adverse reactions to drug 023 Other (See Comments) [facility] (4 sources) Adhesive Tape; Translations: [adhesive tape] Propensity to adverse reactions [facility] Comment on above: SURGICAL TAPE (3 sources) Nonsteroidal Anti-inflammatory Compounds Propensity to adverse reactions Nausea [facility] (3 sources) Adhesive agent Drug Intolerance [facility] (2 sources) Non-steroidal anti-inflammatory agent Propensity to adverse reactions to drug 023 Other (See Comments) [facility] (1 source) HYDROcodone Drug Allergy [facility] Repository (1 source) oxyCODONE Drug Allergy [facility] Rep[facility] (1 source) NSAIDS (Non-Steroidal Anti-Inflamma Drug allergy (disorder) [facility] Repository Medications Current Medications Medication Drug [...] 18-Nov-2022 Active take 0.5 tablet by m [facility] twice daily Eliquis 5 mg oral tablet [...] 11/08/2023 11/07/2024 Active take 1 capsule by [facility] once daily in the morning dexlansoprazole (DEXILANT) [...] as needed . 0 2017 Active honey ([employer], honey,) ge l topical gel (4 sources) Start: 01-18-2025 End: 02-17-2025 honey ([employer], honey,) ge l topical gel Indications: Skin [...] . 01/05/2022 Active take 1 capsule by [facility] once daily levothyroxine 50 mcg (0.05 mg) [...] EDT 05/11/2024 Active naloxone (NARCAN) 4 mg/actuation [place] (11 sources) Start: 05-11-2024 naloxone (NARCAN) 4 mg/actuation [place] Administer 1 spray into one nostril for [...] EDT 01/17/2024 01/01/2025 Discontinued (Med List Cleanup) [place]-3 Fatty Acids-Vitamin E 1,000 mg Capsule (3 sources) Start: 10-01-2021 Start: 10-01-2021 [place]-3 Fatty Acids-Vitamin E 1,000 mg Capsule Active 1 NMA PO DAILY October 01, 2021 1:00am pantoprazole 20 mg delayed release oral tablet (20 sources) Proton Pump Inhibitor Start: 11-29-2019 End: 12-31-2019 take 1 tablet by mouth once daily pantoprazole (PROTONIX) 20 MG tablet Take 1 (one) tablet (20 mg total) by mouth daily Start: 12/01/19. 30 tablet 0 12/01/2019 Active polyethylene glycol 3350 08541 mg powder for oral solution (20 sources) [...] Start: 05-17-2022 take 2 tablets by mo [facility] once daily predniSONE 20 MG Oral Tablet [...] oral tablet (20 sources) Antiarrhythmic Start: 06-25-20 25 End: 06-25-20 26 take 1 tablet by [...] For 6 doses 500 ml albumin human, correction 50 mg/ml injection (1 source) Human Serum [...] 17-Sep-2019 DO Active take 6 tablets by [facility] once daily aspirin 81 mg oral tablet [...] hour 50 mL/hr, Intravenous, Continuous, Starting Patrica 2/20/20 at 2030 Saline lock when tolerating PO [...] Injection, Once as needed Procedure, Starting on Tue06/01/24 at 1115, For 1 dose diclofenac sodium [...] completed) docusate sodium 50 mg / sennosides, correction 8.6 mg oral tablet (1 source) Start: [...] mL), Oral, Daily PRN, constipation, contipation, Starting [facility] 11/29/19 at 1931 methylPREDNISolone 4 MG [...] Active Start: 02-23-2021 take 1 capsule by mo [facility] twice daily Nitrofurantoin Macrocrystal 100 MG [...] Quantity: 1 Refills: 0 Ordered: 17-May-2022 Oksana Ocampo DO Start : 17-May-2022 Active prochlorperazine 5 [...] End: 11-30-2019 sodium chloride (PF) (NS) fl ush 5 mL 5 ml sugammadex 100 mg/ml [...] sacrum, unspecified portion of sacrum, initial encounter ([facility]) Take 1 tablet (50 mg) by mouth [...] unspecified portion of sacrum, initial encounter ([facility]) Take 1 tablet (50 mg) by mouth [...] Woodruff MD Start : 13-Sep-2022 Active Vit C-S.Jbphyo-Gamwdc-T rape Sd (Tart [place]oley) [id number] mg Capsule (3 sources) Start: 10-01-2021 End: 04-22-2025 Vit C-S.Foley-Celery- Grape Sd (Tart Foley) [id number] mg Capsule Discontinued 1 NMA PO DAILY [...] Translations: [Nonalcoholic steatohepatitis] Onset: 3 04-23-2025 Chronic Infective arthritis and osteomyelitis (except that caused by tuberculosis or sexually transmitted disease) (1 source) Osteomyelitis of vertebra, sacral and sacrococcygeal region; Translations: [Osteomyelitis of vertebra, sacral and sacrococcygeal region] Onset: 5 Chronic Malaise and fatigue (1 source) Asthenia 01-17-2023 Episodic Comment on above: WEAKNESS Malignant neoplasm without specification of site (6 sources) Malignant neoplastic disease; Translations: [Malignant (primary) neoplasm, unspecified] Onset: 5 05-20-2025 Chronic Comment on above: UTERINE/HAD HYSTEREC GENO Mycoses (1 source) Candidal stomatitis; Translations: [Candidal stomatitis] Onset: 5 Episodic Open wounds of head; neck; and trunk [...] Onset: 3 Episodic Other aftercare (1 source) [facility] (current) use of aspirin; 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] Onset: 3 Episodic Other aftercare (1 source) 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) use of anticoagulants; Translations: [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) use of anticoagulants] Onset: 3 Episodic Other aftercare (2 sources) Encounter for other specified aftercare; Translations: [Encounter for other specified aftercare] Onset: 3 Episodic Other aftercare (2 sources) Long-term current use of aspirin; 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] 03-14-2023 Episodic Other [...] 08-13-2024 Episodic Other skin disorders (1 source) [place] - lesion ; Translations: [Corns and callosities] [...] 11-29-2019 Unclassified (2 sources) LEFT SIDE PAIN 09-09-2022 Comment on above: LEFT SIDE PAIN Unclassified [...] heart disease (20 sources) 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[place] artery; Translations: [Atherosclerotic heart disease of [place] coronary artery without angina pectoris] Onset: 1 [...] 3 Episodic Other aftercare (1 source) Other senior care (current) drug therapy; Translations: [Other director long term care (current) drug therapy] Onset: 2 Episodic Other [...] Test Name Value Interpretation Reference Range Facility Culture, Anaerobic Any Sourc suman 08-17-2025 CUAN UNK UNK collected in OR @ 1057, sacral bone for culture No anaerobic bacteria isolated. Normal [facility] Comment on above: Performed By: #### M 100.3000, M100.4001, M100.2000 ####[facility] [address] [place], [address] CUAN collected in Or sacr al bone for culture No growth in 5 days. Normal [facility] Comment on above: Performed By: #### M 100.2000, M100.4001, M100.3000 ####[facility] [address] [place], [address] Urinalysis, Completeon 08-16 BACTERIA 1+ /hpf Normal None Seen [facility] Comment on above: Order Comment: CLEAN CATCH Performed By: #### L 400.0001 ####[facility] [address] [place], [address] EPI,SQUAMOUS 0-5 SEEN Normal 5-10 [facility] Comment on above: Order Comment: CLEAN CATCH Performed By: #### L 400.0001 ####[facility] [address] [place], [address] RBC 0-5 SEEN Normal 0-5 [facility] Comment on above: Order Comment: CLEAN CATCH Performed By: #### L 400.0001 ####[facility] [address] [place], [address] WBC 0-5 SEEN Normal 0-5 [facility] Comment on above: Order Comment: CLEAN CATCH Performed By: #### L 400.0001 ####[facility] [address] [place], [address] Mucus Ql (Urine sed) 0 SEEN Normal [facility] Comment on above: Order Comment: CLEAN CATCH Performed By: #### L 400.0001 ####[facility] [address] [place], [address] Basic Metabolic Profile (BMP )on 08-15-2025 BUN/CRE 14.0 RATIO Normal 10-20 [facility] Comment on above: Performed By: #### L 500.2500, L100.0100 ####[facility] [address] [place], [address] Calcium [Mass/Vol] 8.2 mg/dL Normal 7.6-11.0 [facility] Comment on above: Performed By: #### L 500.2500, L100.0100 ####[facility] [address] [place], [address] Chloride [Moles/Vol] 106 mmol/L Normal 98-[address] [facility] Comment on above: Performed By: #### L 500.2500, L100.0100 ####[facility] [address] [place], [address] CO2 [Moles/Vol] 24.3 mmol/L Normal 21.0-32.0 [facility] Comment on above: Performed By: #### L 500.2500, L100.0100 ####[facility] [address] [place], [address] Creatinine [Mass/Vol] 0.51 mg/dL Low 0.70-1.20 [facility] Comment on above: Performed By: #### L 500.2500, L100.0100 ####[facility] [address] [place], [address] ECRCL 43.49 ml/min Low 50-250 [facility] Comment on above: Performed By: #### L 500.2500, L100.0100 ####[facility] [address] [place], [address] GAP 9 Normal 5-15 [facility] Comment on above: Performed By: #### L 500.2500, L100.0100 ####[facility] [address] [place], [address] GFR/1.73 sq M.predicted among non-blacks MDRD (S/P/Bld) [Vol rate/Area] 93 mL/min/{1.73_m2} Normal >60 [facility] Comment on above: Result Comment: mL/m in/1.73m2 CKD-EPI Creatinine Equation (2020) Performed By: #### L 500.2500, L100.0100 ####[facility] [address] [place], [address] Glucose [Mass/Vol] 92 mg/dL Normal 70-99 [facility] Comment on above: Performed By: #### L 500.2500, L100.0100 ####[facility] [address] [place], [address] Potassium [Moles/Vol] 3.7 mmol/L Normal 3.3-5.1 [facility] Comment on above: Performed By: #### L 500.2500, L100.0100 ####[facility] [address] [place], [address] Sodium [Moles/Vol] 140 mmol/L Normal 133-145 [facility] Comment on above: Performed By: #### L 500.2500, L100.0100 ####[facility] [address] [place], [address] Urea nitrogen [Mass/Vol] 7 mg/dL Normal 4-19 [facility] Comment on above: Performed By: #### L 500.2500, L100.0100 ####[facility] [address] [place], [address] CBC W/Diff, Automatedon 11-0 Absolute Lymph 1.46 X10 3/uL Normal 0.83-4.51 [facility] Comment on above: Performed By: #### L 500.2500, L100.0100 ####[facility] [address] [place], [address] Absolute Neut 5.3 X10 3/uL Normal 2.0-7.7 [facility] Comment on above: Performed By: #### L 500.2500, L100.0100 ####[facility] [address] [place], [address] Basophils/100 WBC (Bld) 0.6 % Normal 0-1 [facility] Comment on above: Performed By: #### L 500.2500, L100.0100 ####[facility] [address] [place], [address] Eosinophils/100 WBC (Bld) 2.3 % Normal 0-5 [facility] Comment on above: Performed By: #### L 500.2500, L100.0100 ####[facility] [address] [place], [address] Erythrocyte distribution width (RBC) [Ratio] 15.6 % High 11.6-14.6 [facility] Comment on above: Performed By: #### L 500.2500, L100.0100 ####[facility] [address] [place], [address] Hematocrit (Bld) [Volume fraction] 40.4 % Normal 37-47 [facility] Comment on above: Performed By: #### L 500.2500, L100.0100 ####[facility] [address] [place], [address] Hemoglobin (Bld) [Mass/Vol] 12.8 g/dL Normal 12.0-15.0 [facility] Comment on above: Performed By: #### L 500.2500, L100.0100 ####[facility] [address] [place], [address] IG% 0.400 Normal 0.0-0.9 [facility] Comment on above: Result Comment: IG% - Immature Granulocytes (promyelocytes, myelocytes andmetamyelocytes) > 1% indicates that a LEFT SHIFT is Present. Performed By: #### L 500.2500, L100.0100 ####[facility] [address] [place], [address] Lymphocytes/100 WBC (Bld) 18.5 % Low 19-41 [facility] Comment on above: Performed By: #### L 500.2500, L100.0100 ####[facility] [address] [place], [address] MCH (RBC) [Entitic mass] 28.8 pg Normal 27.0-32.0 [facility] Comment on above: Performed By: #### L 500.2500, L100.0100 ####[facility] [address] [place], [address] MCHC (RBC) [Mass/Vol] 31.7 g/dL Low 32-36 [facility] Comment on above: Performed By: #### L 500.2500, L100.0100 ####[facility] [address] [place], [address] MCV (RBC) [Entitic vol] 91.0 fL Normal 81-99 [facility] Comment on above: Performed By: #### L 500.2500, L100.0100 ####[facility] [address] [place], [address] Monocytes/100 WBC (Bld) 10.8 % High 0-10 [facility] Comment on above: Performed By: #### L 500.2500, L100.0100 ####[facility] [address] [place], [address] Neutrophils/100 WBC (Bld) 67.4 % Normal 47-70 [facility] Comment on above: Performed By: #### L 500.2500, L100.0100 ####[facility] [address] [place], [address] Nucleated RBC (Bld) [#/Vol] 0 10*3/uL Normal 0-5 [facility] Comment on above: Performed By: #### L 500.2500, L100.0100 ####[facility] [address] [place], [address] Platelet mean volume (Bld) [Entitic vol] 11.0 fL Normal 6.2-12.0 [facility] Comment on above: Performed By: #### L 500.2500, L100.0100 ####[facility] [address] [place], [address] Platelets (Bld) [#/Vol] 154 10*3/uL Normal 150-450 [facility] Comment on above: Performed By: #### L 500.2500, L100.0100 ####[facility] [address] [place], [address] RBC (Bld) [#/Vol] 4.44 10*6/uL Normal 4.2-5.4 [facility] Comment on above: Performed By: #### L 500.2500, L100.0100 ####[facility] [address] [place], [address] RDW SD 51.8 fl High 35.1-43.9 [facility] Comment on above: Performed By: #### L 500.2500, L100.0100 ####[facility] [address] [place], [address] WBC (Bld) [#/Vol] 7.9 10*3/uL Normal 4.4-11.0 [facility] Comment on above: Performed By: #### L 500.2500, L100.0100 ####[facility] [address] [place], [address] Culture, Anaerobic Any Sourc suman 08-15-2025 CUAN collected in or deep soft tissue sacral wound No anaerobic bacteria isolated. Normal [facility] Comment on above: Performed By: #### M 100.3000, M100.4001, M100.1999 ####[facility] [address] [place], [address] Gram Stainon 08-15-2025 GS UNK UNK collected in OR @ 1057, sacral bone for culture Gram Stain 1+ White Blood Cells No organisms seen Normal [facility] Comment on above: Performed By: #### M 100.3000, M100.4001, M100.1999 ####[facility] [address] [place], [address] Wound Cultureon 08-15-2025 WC UNK UNK collected in OR @ 1057, sacral bone for culture No growth aerobically. Normal [facility] Comment on above: Performed By: #### M 100.3000, M100.4001, M1.1999 ####[facility] [address] [place], [address] 12 Lead EKGon 08-14-2025 12 Lead EKG Normal [facility] MR/POSTOP.ANEon 08-14-2025 MR/POSTOP.ANE Normal [facility] MR/HYNCRDPS4gk 08-14-2025 MR/POSTOPAN2 Normal [facility] Magnesiumon 08-14-2025 Magnesium [Mass/Vol] 1.8 mg/dL Normal 1.5-2.[address] [facility] Comment on above: Performed By: #### L 300.4310, L501.2300, L501.5200, L300.3900, L501.9520 ####[facility] [address] [place], [address] Operative Reporton Operative Report Normal [facility] Partial Thromboplast Timeon 08-14-2025 aPTT Coag (Bld) [Time] 29.5 s Normal 24.1-36.2 [facility] Comment on above: Performed By: #### L 300.4310, L501.2300, L501.5200, L300.3900, L501.9520 ####[facility] [address] [place], [address] Phosphoruson 08-14-2025 Phosphate [Mass/Vol] 3.0 mg/dL Normal 2.7-4.[address] [facility] Comment on above: Performed By: #### L 300.4310, L501.2300, L501.5200, L300.3900, L501.9520 ####[facility] [address] [place], [address] Prothrombin Time w/INRon INR Coag (PPP) [Relative time] 1.2 {INR} Normal [facility] Comment on above: Performed By: #### L 300.4310, L501.2300, L501.5200, L300.3900, L501.9520 ####[facility] [address] [place], [address] PT Coag (PPP) [Time] 15.2 s High 11.7-14.[address] [facility] Comment on above: Performed By: #### L 300.4310, L501.2300, L501.5200, L300.3900, L501.9520 ####[facility] [address] [place], [address] Thyroid Stim Hormone (TSH)on 08-14-2025 TSH 1.150 uIU/mL Normal 0.300-4.200 [facility] Comment on above: Performed By: #### L 300.4310, L501.2300, L501.5200, L300.3900, L501.9520 ####[facility] [address] [place], [address] Vancomycin, Trough Levelon 1 10-14-2024 VANCO, TROUGH 9.6 ug/mL Normal 5.0-15.0 [facility] Comment on above: Order Comment: Comme nts: Trough to be drawn 30 mins prior to scheduled dose Result Comment: Mayur mmended goal trough ranges are generally 10-15 mcg/mlfor less severe/complicated infections such as cellulitisor UTI and 15-20 mcg/ml for more severe/complicatedinfections such as bacteremia/sepsis, osteomyelitis,pneumonia or meningitis. Goal trough ranges should takeinto account indication, patient-specific factors andorganism JADE.VANCOMYCIN STANDARED DRUG THERAPY TROUGH LEVEL: 5.0 - 15.0 mg/LVANCOMYCIN HIGH INTENSITY THERAPY TROUGH LEVEL: 15.0 - 20.0 mg/LHigh Intensity therapy recommended for serious lifethreatening infections include:- Yfbfujcsvs-Uwnjppavvtpt-Nayuywcoo (Ventilator/Healtcare Associated)-SepsisPLEASE CONTACT PHARMACY SERVICES (#[id number]) FOR INTERPRETATIONOF RESULTS. Performed By: #### L 501.8820 ####[facility] [address] [place], [address] Wound Cultureon 08-14-2025 WC Normal [facility] Comment on above: Performed By: #### M 100.3000, M100.4001, M100.2000 ####[facility] [address] [place], [address] CBC W/Diff, Automatedon Absolute Lymph 0.99 X10 3/uL Normal 0.83-4.51 [facility] Comment on above: Performed By: #### L 501.2300, L500.4050, L501.5200, L100.0100 ####[facility] [address] [place], [address] Absolute Neut 3.9 X10 3/uL Normal 2.0-7.7 [facility] Comment on above: Performed By: #### L 501.2300, L500.4050, L501.5200, L100.0100 ####[facility] [address] [place], [address] Basophils/100 WBC (Bld) 0.2 % Normal 0-1 [facility] Comment on above: Performed By: #### L 501.2300, L500.4050, L501.5200, L100.0100 ####[facility] [address] [place], [address] Eosinophils/100 WBC (Bld) 0.0 % Normal 0-5 [facility] Comment on above: Performed By: #### L 501.2300, L500.4050, L501.5200, L100.0100 ####[facility] [address] [place], [address] Erythrocyte distribution width (RBC) [Ratio] 15.1 % High 11.6-14.6 [facility] Comment on above: Performed By: #### L 501.2300, L500.4050, L501.5200, L100.0100 ####[facility] [address] [place], [address] Hematocrit (Bld) [Volume fraction] 32.7 % Low 37-47 [facility] Comment on above: Performed By: #### L 501.2300, L500.4050, L501.5200, L100.0100 ####[facility] [address] [place], [address] Hemoglobin (Bld) [Mass/Vol] 10.8 g/dL Low 12.0-15.0 [facility] Comment on above: Performed By: #### L 501.2300, L500.4050, L501.5200, L100.0100 ####[facility] [address] [place], [address] IG% 0.600 Normal 0.0-0.9 [facility] Comment on above: Result Comment: IG% - Immature Granulocytes (promyelocytes, myelocytes andmetamyelocytes) > 1% indicates that a LEFT SHIFT is Present. Performed By: #### L 501.2300, L500.4050, L501.5200, L100.0100 ####[facility] [address] [place], [address] Lymphocytes/100 WBC (Bld) 18.5 % Low 19-41 [facility] Comment on above: Performed By: #### L 501.2300, L500.4050, L501.5200, L100.0100 ####[facility] [address] [place], [address] MCH (RBC) [Entitic mass] 29.1 pg Normal 27.0-32.0 [facility] Comment on above: Performed By: #### L 501.2300, L500.4050, L501.5200, L100.0100 ####[facility] [address] [place], [address] MCHC (RBC) [Mass/Vol] 33.0 g/dL Normal 32-36 [facility] Comment on above: Performed By: #### L 501.2300, L500.4050, L501.5200, L100.0100 ####[facility] [address] [place], [address] MCV (RBC) [Entitic vol] 88.1 fL Normal 81-99 [facility] Comment on above: Performed By: #### L 501.2300, L500.4050, L501.5200, L100.0100 ####[facility] [address] [place], [address] Monocytes/100 WBC (Bld) 7.7 % Normal 0-10 [facility] Comment on above: Performed By: #### L 501.2300, L500.4050, L501.5200, L100.0100 ####[facility] [address] [place], [address] Neutrophils/100 WBC (Bld) 73.0 % High 47-70 [facility] Comment on above: Performed By: #### L 501.2300, L500.4050, L501.5200, L100.0100 ####[facility] [address] [place], [address] Nucleated RBC (Bld) [#/Vol] 0 10*3/uL Normal 0-5 [facility] Comment on above: Performed By: #### L 501.2300, L500.4050, L501.5200, L100.0100 ####[facility] [address] [place], [address] Platelet mean volume (Bld) [Entitic vol] 11.0 fL Normal 6.2-12.0 [facility] Comment on above: Performed By: #### L 501.2300, L500.4050, L501.5200, L100.0100 ####[facility] [address] [place], [address] Platelets (Bld) [#/Vol] 130 10*3/uL Low 150-450 [facility] Comment on above: Performed By: #### L 501.2300, L500.4050, L501.5200, L100.0100 ####[facility] [address] [place], [address] RBC (Bld) [#/Vol] 3.71 10*6/uL Low 4.2-5.4 [facility] Comment on above: Performed By: #### L 501.2300, L500.4050, L501.5200, L100.0100 ####[facility] [address] [place], [address] RDW SD 48.7 fl High 35.1-43.9 [facility] Comment on above: Performed By: #### L 501.2300, L500.4050, L501.5200, L100.0100 ####[facility] [address] [place], [address] WBC (Bld) [#/Vol] 5.4 10*3/uL Normal 4.4-11.0 [facility] Comment on above: Performed By: #### L 501.2300, L500.4050, L501.5200, L100.0100 ####[facility] [address] [place], [address] Comprehensive Metabolic Prof ilon 08-13-2025 Albumin [Mass/Vol] 3.1 g/dL Low 3.4-4.8 [facility] Comment on above: Performed By: #### L 501.2300, L500.4050, L501.5200, L100.0100 ####[facility] [address] [place], [address] Albumin/Globulin [Mass ratio] 1.1 {ratio} Normal 0.9-2.4 [facility] Comment on above: Performed By: #### L 501.2300, L500.4050, L501.5200, L100.0100 ####[facility] [address] [place], [address] ALK PHOS 127 U/L High 35-104 [facility] Comment on above: Performed By: #### L 501.2300, L500.4050, L501.5200, L100.0100 ####[facility] [address] [place], [address] ALT [Catalytic activity/Vol] 6 U/L Normal <=34 [facility] Comment on above: Performed By: #### L 501.2300, L500.4050, L501.5200, L100.0100 ####[facility] [address] [place], [address] AST [Catalytic activity/Vol] 37 U/L High <=31 [facility] Comment on above: Performed By: #### L 501.2300, L500.4050, L501.5200, L100.0100 ####[facility] [address] [place], [address] Bilirubin [Mass/Vol] 0.43 mg/dL Normal 0.00-1.[address] [facility] Comment on above: Performed By: #### L 501.2300, L500.4050, L501.5200, L100.0100 ####[facility] [address] [place], [address] BUN/CRE 33.5 RATIO High 10-20 [facility] Comment on above: Performed By: #### L 501.2300, L500.4050, L501.5200, L100.0100 ####[facility] [address] [place], [address] Calcium [Mass/Vol] 8.6 mg/dL Normal 7.6-11.0 [facility] Comment on above: Performed By: #### L 501.2300, L500.4050, L501.5200, L100.0100 ####[facility] [address] [place], [address] Chloride [Moles/Vol] 106 mmol/L Normal 98-[address] [facility] Comment on above: Performed By: #### L 501.2300, L500.4050, L501.5200, L100.0100 ####[facility] [address] [place], [address] CO2 [Moles/Vol] 24.3 mmol/L Normal 21.0-32.0 [facility] Comment on above: Performed By: #### L 501.2300, L500.4050, L501.5200, L100.0100 ####[facility] [address] [place], [address] Creatinine [Mass/Vol] 0.53 mg/dL Low 0.70-1.20 [facility] Comment on above: Performed By: #### L 501.2300, L500.4050, L501.5200, L100.0100 ####[facility] [address] [place], [address] ECRCL 43.49 ml/min Low 50-250 [facility] Comment on above: Performed By: #### L 501.2300, L500.4050, L501.5200, L100.0100 ####[facility] [address] [place], [address] GAP 8 Normal 5-15 [facility] Comment on above: Performed By: #### L 501.2300, L500.4050, L501.5200, L100.0100 ####[facility] [address] [place], [address] GFR/1.73 sq M.predicted among non-blacks MDRD (S/P/Bld) [Vol rate/Area] 92 mL/min/{1.73_m2} Normal >60 [facility] Comment on above: Result Comment: mL/m in/1.73m2 CKD-EPI Creatinine Equation (2020) Performed By: #### L 501.2300, L500.4050, L501.5200, L100.0100 ####[facility] [address] [place], [address] Globulin (S) [Mass/Vol] 2.8 g/dL Normal 2.2-4.2 [facility] Comment on above: Performed By: #### L 501.2300, L500.4050, L501.5200, L100.0100 ####[facility] [address] [place], [address] Glucose [Mass/Vol] 99 mg/dL Normal 70-99 [facility] Comment on above: Performed By: #### L 501.2300, L500.4050, L501.5200, L100.0100 ####[facility] [address] [place], [address] Potassium [Moles/Vol] 4.2 mmol/L Normal 3.3-5.1 [facility] Comment on above: Performed By: #### L 501.2300, L500.4050, L501.5200, L100.0100 ####[facility] [address] [place], [address] Sodium [Moles/Vol] 138 mmol/L Normal 133-145 [facility] Comment on above: Performed By: #### L 501.2300, L500.4050, L501.5200, L100.0100 ####[facility] [address] [place], [address] T PROT 5.8 g/dL Low 5.9-8.4 [facility] Comment on above: Performed By: #### L 501.2300, L500.4050, L501.5200, L100.0100 ####[facility] [address] [place], [address] Urea nitrogen [Mass/Vol] 18 mg/dL Normal 4-19 [facility] Comment on above: Performed By: #### L 501.2300, L500.4050, L501.5200, L100.0100 ####[facility] [address] [place], [address] Magnesiumon 08-13-2025 Magnesium [Mass/Vol] 2.0 mg/dL Normal 1.5-2.[address] [facility] Comment on above: Performed By: #### L 501.2300, L500.4050, L501.5200, L100.0100 ####[facility] [address] [place], [address] Phosphoruson 08-13-2025 Phosphate [Mass/Vol] 3.9 mg/dL Normal 2.7-4.[address] [facility] Comment on above: Performed By: #### L 501.2300, L500.4050, L501.5200, L100.0100 ####[facility] [address] [place], [address] Wound Cultureon 08-13-2025 WC collected in Or sacr al bone for culture No growth aerobically. Normal [facility] Comment on above: Performed By: #### M 100.2000, M100.4001, M100.3000 ####[facility] [address] [place], [address] Consultation - Infectious Dx on 08-12-2025 Consultation - Infectious Dx Normal [facility] Gram Stainon 08-12-2025 GS collected in or deep soft tissue sacral wound Gram Stain 1+ White Blood Cells No organisms seen [facility] Comment on above: Performed By: #### M 100.3000, M100.4001, M100.2000 ####[facility] [address] [place], [address] GS collected in Or sacr al bone for culture Gram Stain No organisms seen [facility] Comment on above: Performed By: #### M 100.2000, M100.4001, M100.3000 ####[facility] [address] [place], [address] MR/POSTOP.ANEon 08-12-2025 MR/POSTOP.ANE Normal [facility] MR/JERIPMKL2tv 08-12-2025 MR/POSTOPAN2 Normal [facility] Operative Reporton Operative Report Normal [facility] Serum Creatinine AND GFRon 1 10-12-2024 Creatinine [Mass/Vol] 0.62 mg/dL Low 0.70-1.20 [facility] Comment on above: Order Comment: PHLEB ON FLOOR AT TIME OF ORDER LAB DIDN'T NOTIFY PHLEB WILLDRAW HAYDE Performed By: #### L 501.1105 ####[facility] [address] [place], [place], [address] ECRCL 43.49 ml/min Low 50-250 [facility] Comment on above: Order Comment: PHLEB ON FLOOR AT TIME OF ORDER LAB DIDN'T NOTIFY PHLEB WILLDRAW HAYDE Performed By: #### L 501.1105 ####[facility] [address] [place], [place], [id number] GFR/1.73 sq M.predicted among non-blacks MDRD (S/P/Bld) [Vol rate/Area] 88 mL/min/{1.73_m2} Normal >60 [facility] Comment on above: Order Comment: PHLEB ON FLOOR AT TIME OF ORDER LAB DIDN'T NOTIFY PHLEB WILLDRAW HAYDE Result Comment: mL/m in/1.73m2 CKD-EPI Creatinine Equation (2020) Performed By: #### L 501.1105 ####[facility] [address] [place], [place], [id number] CBC (H/H, RBC, INDICES, WBC, PLT)on 08-03-2025 Erythrocyte distribution width (RBC) [Ratio] 14.4 % Normal 11.0-15.0 [facility] Comment on above: Performed By: #### 9 6245, 1759 #### [facility] [address], [address] [place], [place] [address] Trimmer Sorter: Luis Armando Canseco MD Hematocrit (Bld) [Volume fraction] 40.2 % Normal 35.0-45.0 [facility] Comment on above: Performed By: #### 9 191, 1759 #### [facility] [address] , [address] [place] [address] Trimmer Sorter: Luis Armando Canseco MD Hemoglobin (Bld) [Mass/Vol] 12.7 g/dL Normal 11.7-15.5 [facility] Comment on above: Performed By: #### 9 695, 1759 #### [facility] [place] [address], [address] [place] [address] Trimmer Sorter: Luis Armando Canseco MD MCH (RBC) [Entitic mass] 28.9 pg Normal 27.0-33.0 [facility] Comment on above: Performed By: #### 9 950, 175 #### [facility] [place] [address] Trimmer Sorter: Luis Armando Canseco MD MCHC (RBC) [Mass/Vol] 31.6 g/dL Low 32.0-36.[address] [facility] Comment on above: Result Comment: For adults, a slight decrease in the calculated MCHC value (in the range of 30 to 32 g/dL) is most likely not clinically significant; however, it should be interpreted with caution in correlation with other red cell parameters and the patient's clinical condition. Performed By: #### 9 628, 175 #### [facility] [place] [address] Trimmer Sorter: Luis Armando Canseco MD MCV (RBC) [Entitic vol] 91.6 fL Normal 80.0-100.0 [facility] Comment on above: Performed By: #### 9 2664, 175 #### [facility] [place] [address] Trimmer Sorter: Luis Armando Canseco MD Platelet mean volume (Bld) [Entitic vol] 11.3 fL Normal 7.5-12.5 [facility] Comment on above: Performed By: #### 9 648, 175 #### [facility] [place] [address] Trimmer Sorter: Luis Armando Canseco MD Platelets (Bld) [#/Vol] 178 10*3/uL Normal 140-400 [facility] Comment on above: Performed By: #### 9 159, 175 #### [facility] [place] [address] Trimmer Sorter: Luis Armando Canseco MD RBC (Bld) [#/Vol] 4.39 10*6/uL Normal 3.80-5.10 [facility] Comment on above: Performed By: #### 9 8495, 1759 #### [facility] [address], [address] [place] [address] Trimmer Sorter: Luis Armando Canseco MD WBC (Bld) [#/Vol] 5.1 10*3/uL Normal 3.8-10.8 [facility] Comment on above: Performed By: #### 9 6400, 1759 #### [facility] [address], [address] [place] [address] Trimmer Sorter: Luis Armando Canseco MD COMPREHENSIVE METABOLIC PANE L W/ANION GAPon 08-03-2025 Albumin [Mass/Vol] 3.4 g/dL Low 3.6-5.1 [facility] Comment on above: Order Comment: FASTI NG:YES FASTING: YES Performed By: #### 9 6189, 1759 #### [facility] [address], [address] [place] [address] Trimmer Sorter: Luis Armando Canseco MD ALP [Catalytic activity/Vol] 144 U/L Normal 37-153 [facility] Comment on above: Order Comment: FASTI NG:YES FASTING: YES Performed By: #### 9 1451, 175 #### [facility] [place] [address] Trimmer Sorter: Luis Armando Canseco MD ALT [Catalytic activity/Vol] 6 U/L Normal 6-29 [facility] Comment on above: Order Comment: FASTI NG:YES FASTING: YES Performed By: #### 9 6267, 175 #### [facility] [address], [address] [place] [address] Trimmer Sorter: Luis Armando Canseco MD AST [Catalytic activity/Vol] 28 U/L Normal 10-35 [facility] Comment on above: Order Comment: FASTI NG:YES FASTING: YES Performed By: #### 9 9058, 1759 #### [facility] [address], [address] [place] [address] Trimmer Sorter: Luis Armando Canseco MD Bilirubin [Mass/Vol] 0.6 mg/dL Normal 0.2-1.2 [facility] Comment on above: Order Comment: FASTI NG:YES FASTING: YES Performed By: #### 9 020, 175 #### [facility] [place] [address] Trimmer Sorter: Luis Armando Canseco MD Calcium [Mass/Vol] 8.8 mg/dL Normal 8.6-10.4 [facility] Comment on above: Order Comment: FASTI NG:YES FASTING: YES Performed By: #### 9 680, 175 #### [facility] [address], [address] [place] [address] Trimmer Sorter: Luis Armando Canseco MD Chloride [Moles/Vol] 103 mmol/L Normal 98-110 [facility] Comment on above: Order Comment: FASTI NG:YES FASTING: YES Performed By: #### 9 143, 175 #### [facility] [place] [address] Trimmer Sorter: Luis Armando Canseco MD CO2 [Moles/Vol] 29 mmol/L Normal 20-32 [facility] Comment on above: Order Comment: FASTI NG:YES FASTING: YES Performed By: #### 9 752, 175 #### [facility] [place] [address] Trimmer Sorter: Luis Armando Canseco MD Creatinine [Mass/Vol] 0.58 mg/dL Low 0.60-0.95 [facility] Comment on above: Order Comment: FASTI NG:YES FASTING: YES Performed By: #### 9 956, 175 #### [facility] [place] [address] Trimmer Sorter: Luis Armando Canseco MD ELECTROLYTE BALANCE 6 mmol/L (calc) Low 7-17 [facility] Comment on above: Order Comment: FASTI NG:YES FASTING: YES Performed By: #### 9 157, 175 #### [facility] [place] [address] Trimmer Sorter: Luis Armando Canseco MD GFR/1.73 sq M.predicted among non-blacks MDRD (S/P/Bld) [Vol rate/Area] 90 mL/min/{1.73_m2} Normal > OR = 60 [facility] Comment on above: Order Comment: FASTI NG:YES FASTING: YES Performed By: #### 9 899, 1759 #### [facility] [address], [address] [place] [address] Trimmer Sorter: Luis Armando Canseco MD Glucose [Mass/Vol] 79 mg/dL Normal 65-99 [facility] Comment on above: Order Comment: FASTI NG:YES FASTING: YES Result Comment: Fasting reference interval Performed By: #### 9 201, 1759 #### [facility] [place] [address] Trimmer Sorter: Luis Armando Canseco MD Potassium [Moles/Vol] 4.6 mmol/L Normal 3.5-5.3 [facility] Comment on above: Order Comment: FASTI NG:YES FASTING: YES Performed By: #### 9 296, 175 #### [facility] [address], [address] [place] [address] Trimmer Sorter: Luis Armando Canseco MD Protein [Mass/Vol] 6.6 g/dL Normal 6.1-8.1 [facility] Comment on above: Order Comment: FASTI NG:YES FASTING: YES Performed By: #### 9 794, 175 #### [facility] [place] [address] Trimmer Sorter: Luis Armando Canseco MD Sodium [Moles/Vol] 138 mmol/L Normal 135-146 [facility] Comment on above: Order Comment: FASTI NG:YES FASTING: YES Performed By: #### 9 439, 175 #### [facility] [place] [address] Trimmer Sorter: Luis Armando Canseco MD Urea nitrogen [Mass/Vol] 16 mg/dL Normal 7-25 [facility] Comment on above: Order Comment: FASTI NG:YES FASTING: YES Performed By: #### 9 567, 1759 #### [facility] [address], [address] [place] [address] Trimmer Sorter: Luis Armando Canseco MD MR/PAT.ANEon 07-31-2025 MR/PAT.ANE Normal [facility] ECG 12 lead (Clinic Performe d)on 07-30-2025 1 normal sinus rhyth m. 2 low voltage. 3 borderline first-degree AV block. [facility] Work Phone: [facility] Work Phone: Pelvis WITH IV Contraston Pelvis WITH IV Contrast Normal [facility] Surgical pathology reportOrd ered By: Genoveva Hoffman on 06-07-2025 Surgical pathology study [facility] Prealbumin [id number] Prealbumin [Mass/Vol] 11 mg/dL Normal [facility] Comment on above: Result Comment: Perf ormed at: - [facility] [place] [id number] Director: Randall Silver PhD, Phone: [phone] Performed By: #### L 100.0100, T469.5791, L500.4709, Z4045.4299 ####[facility] [address] [place], [address] Absolute lymphocyte countOrd ered By: Sylvia Cool on 05-27-2025 Lymphocytes Auto (Unsp spec) [#/Vol] 2.15 10*3/uL 0.83-4.51 [facility] Absolute neutrophil countOrd ered By: Sylvia Cool on 05-27-2025 Neutrophils (Bld) [#/Vol] 2.4 10*3/uL 2.0-7.7 [facility] Anion gap in Serum or Plasma Ordered By: Sylvia Cool on 05-27-2025 Anion gap [Moles/Vol] 10 mmol/L 02-21 [facility] Automated lymphocyte count a s percentage of total leukocytesOrdered By: Sylvia Cool on 05-27-2025 Lymphocytes/100 WBC Auto (Unsp spec) 41.0 % [facility] BUN/creatinine ratioOrdered By: Sylvia Cool on 05-27-2025 Urea nitrogen/Creatinine [Mass ratio] 24.7 mg/mg High 10-20 [facility] Basophil percentageOrdered B y: Sylvia Cool on 05-27-2025 Basophils/100 WBC (Bld) 0.8 % 0-1 [facility] Bilirubin, totalOrdered By: Sylvia Cool on 05-27-2025 Bilirubin [Mass/Vol] 0.71 mg/dL 0.00-1.[address] [facility] CBC W/Diff, Automatedon 05-10 Absolute Lymph 2.15 X10 3/uL Normal 0.83-4.51 [facility] Comment on above: Performed By: #### L 100.0100, L501.9985, L500.4050, L3300.6400 ####[facility] [address] [place], [address] Absolute Neut 2.4 X10 3/uL Normal 2.0-7.7 [facility] Comment on above: Performed By: #### L 100.0100, L501.9985, L500.4050, L3300.6400 ####[facility] [address] [place], [address] Basophils/100 WBC (Bld) 0.8 % Normal 0-1 [facility] Comment on above: Performed By: #### L 100.0100, L501.9985, L500.4050, L3300.6400 ####[facility] [address] [place], [address] Eosinophils/100 WBC (Bld) 1.1 % Normal 0-5 [facility] Comment on above: Performed By: #### L 100.0100, L501.9985, L500.4050, L3300.6400 ####[facility] [address] [place], [address] Erythrocyte distribution width (RBC) [Ratio] 15.4 % High 11.6-14.6 [facility] Comment on above: Performed By: #### L 100.0100, L501.9985, L500.4050, L3300.6400 ####[facility] [address] [place], [address] Hematocrit (Bld) [Volume fraction] 37.4 % Normal 37-47 [facility] Comment on above: Performed By: #### L 100.0100, L501.9985, L500.4050, L3300.6400 ####[facility] [address] [place], [address] Hemoglobin (Bld) [Mass/Vol] 12.2 g/dL Normal 12.0-15.0 [facility] Comment on above: Performed By: #### L 100.0100, L501.9985, L500.4050, L3300.6400 ####[facility] [address] [place], [address] IG% 0.200 Normal 0.0-0.9 [facility] Comment on above: Result Comment: IG% - Immature Granulocytes (promyelocytes, myelocytes andmetamyelocytes) > 1% indicates that a LEFT SHIFT is Present. Performed By: #### L 100.0100, L501.9985, L500.4050, L3300.6400 ####[facility] [address] [place], [address] Lymphocytes/100 WBC (Bld) 41.0 % Normal 19-41 [facility] Comment on above: Performed By: #### L 100.0100, L501.9985, L500.4050, L3300.6400 ####[facility] [address] [place], [address] MCH (RBC) [Entitic mass] 29.8 pg Normal 27.0-32.0 [facility] Comment on above: Performed By: #### L 100.0100, L501.9985, L500.4050, L3300.6400 ####[facility] [address] [place], [address] MCHC (RBC) [Mass/Vol] 32.6 g/dL Normal 32-36 [facility] Comment on above: Performed By: #### L 100.0100, L501.9985, L500.4050, L3300.6400 ####[facility] [address] [place], [address] MCV (RBC) [Entitic vol] 91.4 fL Normal 81-99 [facility] Comment on above: Performed By: #### L 100.0100, L501.9985, L500.4050, L3300.6400 ####[facility] [address] [place], [address] Monocytes/100 WBC (Bld) 10.5 % High 0-10 [facility] Comment on above: Performed By: #### L 100.0100, L501.9985, L500.4050, L3300.6400 ####[facility] [address] [place], [address] Neutrophils/100 WBC (Bld) 46.4 % Low 47-70 [facility] Comment on above: Performed By: #### L 100.0100, L501.9985, L500.4050, L3300.6400 ####[facility] [address] [place], [address] Nucleated RBC (Bld) [#/Vol] 0 10*3/uL Normal 0-5 [facility] Comment on above: Performed By: #### L 100.0100, L501.9985, L500.4050, L3300.6400 ####[facility] [address] [place], [address] Platelet mean volume (Bld) [Entitic vol] 10.8 fL Normal 6.2-12.0 [facility] Comment on above: Performed By: #### L 100.0100, L501.9985, L500.4050, L3300.6400 ####[facility] [address] [place], [address] Platelets (Bld) [#/Vol] 161 10*3/uL Normal 150-450 [facility] Comment on above: Performed By: #### L 100.0100, L501.9985, L500.4050, L3300.6400 ####[facility] [address] [place], [address] RBC (Bld) [#/Vol] 4.09 10*6/uL Low 4.2-5.4 [facility] Comment on above: Performed By: #### L 100.0100, L501.9985, L500.4050, L3300.6400 ####[facility] [address] [place], [address] RDW SD 51.8 fl High 35.1-43.9 [facility] Comment on above: Performed By: #### L 100.0100, L501.9985, L500.4050, L3300.6400 ####[facility] [address] [place], [address] WBC (Bld) [#/Vol] 5.3 10*3/uL Normal 4.4-11.0 [facility] Comment on above: Performed By: #### L 100.0100, L501.9985, L500.4050, L3300.6400 ####[facility] [address] [place], [address] Carbon dioxide, total [Moles /volume] in Central venous bloodOrdered By: Sylvia Cool on 05-27-2025 CO2 [Moles/Vol] 24.3 mmol/L 21.0-32.0 [facility] Chloride assayOrdered By: Jazz Cool on 05-27-2025 Chloride [Moles/Vol] 103 mmol/L 98-[address] [facility] Comprehensive Metabolic Prof ilon 05-27-2025 Albumin [Mass/Vol] 3.6 g/dL Normal 3.4-4.8 [facility] Comment on above: Performed By: #### L 100.0100, L501.9985, L500.4050, L3300.6400 ####[facility] [address] [place], [address] Albumin/Globulin [Mass ratio] 1.2 {ratio} Normal 0.9-2.4 [facility] Comment on above: Performed By: #### L 100.0100, L501.9985, L500.4050, L3300.6400 ####[facility] [address] [place], [address] ALK PHOS 159 U/L High 35-104 [facility] Comment on above: Performed By: #### L 100.0100, L501.9985, L500.4050, L3300.6400 ####[facility] [address] [place], [address] ALT [Catalytic activity/Vol] 8 U/L Normal <=34 [facility] Comment on above: Performed By: #### L 100.0100, L501.9985, L500.4050, L3300.6400 ####[facility] [address] [place], [address] AST [Catalytic activity/Vol] 37 U/L High <=31 [facility] Comment on above: Performed By: #### L 100.0100, L501.9985, L500.4050, L3300.6400 ####[facility] [address] [place], [address] Bilirubin [Mass/Vol] 0.71 mg/dL Normal 0.00-1.[address] [facility] Comment on above: Performed By: #### L 100.0100, L501.9985, L500.4050, L3300.6400 ####[facility] [address] [place], [address] BUN/CRE 24.7 RATIO High 10-20 [facility] Comment on above: Performed By: #### L 100.0100, L501.9985, L500.4050, L3300.6400 ####[facility] [address] [place], [address] Calcium [Mass/Vol] 8.8 mg/dL Normal 7.6-11.0 [facility] Comment on above: Performed By: #### L 100.0100, L501.9985, L500.4050, L3300.6400 ####[facility] [address] [place], [address] Chloride [Moles/Vol] 103 mmol/L Normal 98-[address] [facility] Comment on above: Performed By: #### L 100.0100, L501.9985, L500.4050, L3300.6400 ####[facility] [address] [place], [address] CO2 [Moles/Vol] 24.3 mmol/L Normal 21.0-32.0 [facility] Comment on above: Performed By: #### L 100.0100, L501.9985, L500.4050, L3300.6400 ####[facility] [address] [place], [address] Creatinine [Mass/Vol] 0.64 mg/dL Low 0.70-1.20 [facility] Comment on above: Performed By: #### L 100.0100, L501.9985, L500.4050, L3300.6400 ####[facility] [address] [place], [address] GAP 10 Normal 5-15 [facility] Comment on above: Performed By: #### L 100.0100, L501.9985, L500.4050, L3300.6400 ####[facility] [address] [place], [address] GFR/1.73 sq M.predicted among non-blacks MDRD (S/P/Bld) [Vol rate/Area] 88 mL/min/{1.73_m2} Normal >60 [facility] Comment on above: Result Comment: mL/m in/1.73m2 CKD-EPI Creatinine Equation (2020) Performed By: #### L 100.0100, L501.9985, L500.4050, L3300.6400 ####[facility] [address] [place], [address] Globulin (S) [Mass/Vol] 3.0 g/dL Normal 2.2-4.2 [facility] Comment on above: Performed By: #### L 100.0100, L501.9985, L500.4050, L3300.6400 ####[facility] [address] [place], [address] Glucose [Mass/Vol] 86 mg/dL Normal 70-99 [facility] Comment on above: Performed By: #### L 100.0100, L501.9985, L500.4050, L3300.6400 ####[facility] [address] [place], [address] Potassium [Moles/Vol] 4.5 mmol/L Normal 3.3-5.1 [facility] Comment on above: Performed By: #### L 100.0100, L501.9985, L500.4050, L3300.6400 ####[facility] [address] [place], [address] Sodium [Moles/Vol] 138 mmol/L Normal 133-145 [facility] Comment on above: Performed By: #### L 100.0100, L501.9985, L500.4050, L3300.6400 ####[facility] [address] [place], [address] T PROT 6.6 g/dL Normal 5.9-8.4 [facility] Comment on above: Performed By: #### L 100.0100, L501.9985, L500.4050, L3300.6400 ####[facility] [address] [place], [address] Urea nitrogen [Mass/Vol] 16 mg/dL Normal 4-19 [facility] Comment on above: Performed By: #### L 100.0100, L501.9985, L500.4050, L3300.6400 ####[facility] [address] [place], [address] Eosinophil percentageOrdered By: Sylvia Cool on 05-27-2025 Eosinophils/100 WBC (Bld) 1.1 % 0-5 [facility] Erythrocyte distribution wid th ratioOrdered By: Sylvia Cool on 05-27-2025 Erythrocyte distribution width (RBC) [Ratio] 15.4 % High 11.6-14.6 [facility] Erythrocyte distribution wid th standard deviationOrdered By: Sylvia Cool on 05-27-2025 Erythrocyte distribution width (RBC) [Ratio] 51.8 fl High 35.1-43.9 [facility] Glomerular filtration rate ( GFR) estimation/1.73 sq m using serum, plasma, or whole bOrdered By: Sylvia Cool on 05-27-2025 GFR/1.73 sq M.predicted among non-blacks MDRD (S/P/Bld) [Vol rate/Area] 88 mL/min/{1.73_m2} >60 [facility] Comment on above: mL/min/1.73m2 CKD-EP I Creatinine Equation (2020) Hematocrit Auto (Bld) [Volum e fraction]Ordered By: Sylvia Cool on 05-27-2025 Hematocrit (Bld) [Volume fraction] 37.4 % 37-47 [facility] Hemoglobin A1con 05-27-2025 HbA1c (Bld) [Mass fraction] 5.2 % Normal <=5.6 [facility] Comment on above: Result Comment: Norm al < 5.7 % Prediabetic 5.7 - 6.4 % Diabetic >or= 6.5 % Please note range changes. Performed By: #### L 100.0100, L501.9985, L500.4050, L3300.6400 ####[facility] [address] [place], [address] Hemoglobin A1c percentageOrd ered By: Sylvia Cool on 05-27-2025 HbA1c (Bld) [Mass fraction] 5.2 % <5.7 [facility] Comment on above: Normal < 5.7 % Predi abetic 5.7 - 6.4 % Diabetic >or= 6.5 % Please note range changes. Hemoglobin measurementOrdere d By: Sylvia Cool on 05-27-2025 Hemoglobin (Bld) [Mass/Vol] 12.2 g/dL 12.0-15.0 [facility] Immature granulocytes/100 WB C Auto (Bld)Ordered By: Sylvia Cool on 05-27-2025 Immature granulocytes/100 WBC (Bld) 0.200 % 0.0-0.9 [facility] Comment on above: IG% - Immature Granu locytes (promyelocytes, myelocytes and metamyelocytes) > 1% indicates that a LEFT SHIFT is Present. Laboratory - Chemistry and C hemistry - challengeOrdered By: Sylvia Cool on 05-27-2025 AST [Catalytic activity/Vol] 37 U/L High <32 [facility] MCV (mean corpuscular volume ) determinationOrdered By: Sylvia Cool on 05-27-2025 MCV (RBC) [Entitic vol] 91.4 fL 81-99 [facility] Mean corpuscular hemoglobin (MCH) determinationOrdered By: Sylvia Cool on 05-27-2025 MCH (RBC) [Entitic mass] 29.8 pg 27.0-32.0 [facility] Mean corpuscular hemoglobin concentration (MCHC) determinationOrdered By: Sylvia Cool on 05-27-2025 MCHC (RBC) [Mass/Vol] 32.6 g/dL 32-36 [facility] Mean platelet volume determi nationOrdered By: Sylvia Cool on 05-27-2025 Platelet mean volume (Bld) [Entitic vol] 10.8 fL 6.2-12.0 [facility] Monocyte percentageOrdered B y: Sylvia Cool on 05-27-2025 Monocytes/100 WBC (Bld) 10.5 % High 0-10 [facility] Neutrophil percentageOrdered By: Sylvia Cool on 05-27-2025 Neutrophils/100 WBC (Bld) 46.4 % Low 47-70 [facility] Nucleated red blood cell per centageOrdered By: Sylvia Cool on 05-27-2025 Nucleated RBC/100 WBC (Bld) [Ratio] 0 % 0-5 [facility] Platelet countOrdered By: Jazz Cool on 05-27-2025 Platelets (Bld) [#/Vol] 161 10*3/uL 150-450 [facility] Potassium measurement (mass/ volume)Ordered By: Sylvia Cool on 05-27-2025 Potassium (Unsp spec) [Mass/Vol] 4.5 mmol/L 3.3-5.1 [facility] RBC Auto (Bld) [#/Vol]Ordere d By: Sylvia Cool on 05-27-2025 RBC (Bld) [#/Vol] 4.09 10*6/uL Low 4.2-5.4 [facility] Serum creatinine measurement (mass/volume)Ordered By: Sylvia Cool on 05-27-2025 Creatinine [Mass/Vol] 0.64 mg/dL Low 0.70-1.20 [facility] Serum globulin measurementOr dered By: Sylvia Cool on 05-27-2025 Globulin (S) [Mass/Vol] 3.0 g/dL 2.2-4.2 [facility] Serum glucose measurement (m ass/volume)Ordered By: Sylvia Cool on 05-27-2025 Glucose [Mass/Vol] 86 mg/dL 70-99 [facility] Serum or plasma alanine jeffrey otransferase (ALT) measurementOrdered By: Sylvia Cool on 05-27-2025 ALT [Catalytic activity/Vol] 8 U/L <35 [facility] Serum or plasma albumin edwin urement (mass/volume)Ordered By: Sylvia Cool on 05-27-2025 Albumin [Mass/Vol] 3.6 g/dL 3.4-4.8 [facility] Serum or plasma albumin/glob ulin mass ratioOrdered By: Sylvia Cool on 05-27-2025 Albumin/Globulin [Mass ratio] 1.2 {ratio} 0.9-2.4 [facility] Serum or plasma alkaline cheli sphatase measurementOrdered By: Sylvia Cool on 05-27-2025 ALP [Catalytic activity/Vol] 159 U/L High 35-104 [facility] Serum or plasma calcium edwin urement (mass/volume)Ordered By: Sylvia Cool on 05-27-2025 Calcium [Mass/Vol] 8.8 mg/dL 7.6-11.0 [facility] Serum or plasma urea nitroge n measurement (mass/volume)Ordered By: Sylvia Cool on 05-27-2025 Urea nitrogen [Mass/Vol] 16 mg/dL 4-19 [facility] Serum prealbumin measurement by immunoassayOrdered By: Sylvia Cool on 05-27-2025 Prealbumin [Mass/Vol] 11 mg/dL 9-32 [facility] Comment on above: Performed at: [place] [id number] Director: Randall Silver PhD, Phone: [phone] Sodium levelOrdered By: Jean Cool on 05-27-2025 Sodium [Moles/Vol] 138 mmol/L 133-145 [facility] Surgery Specimen Level Rachel 05-27-2025 Surgery Specimen Level IV Normal [facility] Comment on above: Performed By: #### P SUIV ####[facility] [address] [place], [address] Total proteinOrdered By: Patrice Cool on 05-27-2025 Protein [Mass/Vol] 6.6 g/dL 5.9-8.4 [facility] White blood cell (WBC) count Ordered By: Sylvia Cool on 05-27-2025 WBC (Bld) [#/Vol] 5.3 10*3/uL 4.4-11.0 [facility] History AND Physic alyson 05-20-2025 Wound Ctr History & Physical Normal [facility] History AND Physic alyson 04-23-2025 Wound Ctr History & Physical Normal [facility] CT ABDOMEN PELVIS W IV CONTR Raymond 04-17-2025 CT ABDOMEN PELVIS W IV CONTRAST Interpreted By: Jesus Restrepo, STUDY: CT ABDOMEN PELVIS W IV CONTRAST; 04/17/2025 10:17 am INDICATION: Signs/Symptoms:LUQ pain. COMPARISON: CT pelvis 02/06/2025, CT abdomen and pelvis 01/17/2023 ACCESSION NUMBER(S): [id number] ORDERING CLINICIAN: SANCHO WOODRUFF TECHNIQUE: Axial CT [...] Jesus Restrepo 04/18/2025 11:30 AM Dictation workstation: [id number] [facility] CBC (H/H, RBC, INDICES, WBC, PLT)on 04-16-2025 Erythrocyte distribution width (RBC) [Ratio] 16.5 % High 11.0-15.0 [facility] Comment on above: Performed By: #### 7 600, 33266, 886, 899 #### [facility] [place] [address] Trimmer Sorter: Luis Armando Canseco MD Hematocrit (Bld) [Volume fraction] 42.3 % Normal 35.0-45.0 [facility] Comment on above: Performed By: #### 7 600, 81433, 925, 899 #### [facility] [place] [address] Trimmer Sorter: Luis Armando Canseco MD Hemoglobin (Bld) [Mass/Vol] 13.2 g/dL Normal 11.7-15.5 [facility] Comment on above: Performed By: #### 7 600, 28081, 057, 899 #### [facility] [place] [address] Trimmer Sorter: Luis Armando Canseco MD MCH (RBC) [Entitic mass] 29.9 pg Normal 27.0-33.0 [facility] Comment on above: Performed By: #### 7 600, 67475, 617, 508 #### [facility] [place] [address] Trimmer Sorter: Luis Armando Canseco MD MCHC (RBC) [Mass/Vol] [...] clinical condition. Performed By: #### 7 600, 07868, 1758, 899 #### [facility] [place] [address] Trimmer Sorter: Luis Armando Canseco MD MCV (RBC) [Entitic vol] 95.7 fL Normal 80.0-100.0 [facility] Comment on above: Performed By: #### 7 600, 89848, 1758, 899 #### [facility] [place] [address] Trimmer Sorter: Luis Armando Canseco MD Platelet mean volume (Bld) [Entitic vol] 11.8 fL Normal 7.5-12.5 [facility] Comment on above: Performed By: #### 7 600, 89651, 1758, 899 #### [facility] [place] [address] Trimmer Sorter: Luis Armando Canseco MD Platelets (Bld) [#/Vol] 162 10*3/uL Normal 140-400 [facility] Comment on above: Performed By: #### 7 600, 26592, 1758, 899 #### [facility] [place] [address] Trimmer Sorter: Luis Armando Canseco MD RBC (Bld) [#/Vol] 4.42 10*6/uL Normal 3.80-5.10 [facility] Comment on above: Performed By: #### 7 600, 16839, 1758, 899 #### [facility] [place] [address] Trimmer Sorter: Luis Armando Canseco MD WBC (Bld) [#/Vol] 5.1 10*3/uL Normal 3.8-10.8 [facility] Comment on above: Performed By: #### 7 600, 20328, 1758, 899 #### [facility] of [place] [address] Trimmer Sorter: Luis Armando Canseco MD COMPREHENSIVE METABOLIC PANE L W/ANION GAPon 04-16-2025 Albumin [Mass/Vol] 3.5 g/dL Low 3.6-5.1 [facility] Comment on above: Performed By: #### 7 600, 18670, 1758, 899 #### [facility] of [address], [address] [place] [address] Trimmer Sorter: Luis Armando Canseco MD ALP [Catalytic activity/Vol] 157 U/L High 37-153 [facility] Comment on above: Performed By: #### 7 600, 47142, 1758, 899 #### [facility] of [place] [address] Trimmer Sorter: Luis Armando Canseco MD ALT [Catalytic activity/Vol] 10 U/L Normal 6-29 [facility] Comment on above: Performed By: #### 7 600, 39936, 1758, 899 #### [facility] of [place] [address] Trimmer Sorter: Luis Armando Canseco MD AST [Catalytic activity/Vol] 43 U/L High 10-35 [facility] Comment on above: Performed By: #### 7 600, 79780, 1758, 899 #### [facility] [place] [address] Trimmer Sorter: Luis Armando Canseco MD Bilirubin [Mass/Vol] 0.8 mg/dL Normal 0.2-1.2 [facility] Comment on above: Performed By: #### 7 600, 35897, 175, 899 #### [facility] of [place] [address] Trimmer Sorter: Luis Armando Canseco MD Calcium [Mass/Vol] 8.5 mg/dL Low 8.6-10.4 [facility] Comment on above: Performed By: #### 7 600, 65903, 1758, 899 #### [facility] [place] [address] Trimmer Sorter: Luis Armando Canseco MD Chloride [Moles/Vol] 102 mmol/L Normal 98-110 [facility] Comment on above: Performed By: #### 7 600, 30862, 1758, 899 #### [facility] [place] [address] Trimmer Sorter: Luis Armando Canseco MD CO2 [Moles/Vol] 28 mmol/L Normal 20-32 [facility] Comment on above: Performed By: #### 7 600, 11390, 1758, 899 #### [facility] [place] [address] Trimmer Sorter: Luis Armando Canseco MD Creatinine [Mass/Vol] 0.70 mg/dL Normal 0.60-0.95 [facility] Comment on above: Performed By: #### 7 600, 03820, 1758, 899 #### [facility] [place] [address] Trimmer Sorter: Luis Armando Canseco MD ELECTROLYTE BALANCE 8 mmol/L (calc) Normal 7-17 [facility] Comment on above: Performed By: #### 7 600, 92904, 1758, 899 #### [facility] of [place] [address] Trimmer Sorter: Luis Armando Canseco MD GFR/1.73 sq M.predicted among non-blacks MDRD (S/P/Bld) [Vol rate/Area] 86 mL/min/{1.73_m2} Normal > OR = 60 [facility] Comment on above: Performed By: #### 7 600, 50691, 175, 899 #### [facility] of [place] [address] Trimmer Sorter: Luis Armando Canseco MD Glucose [Mass/Vol] 70 mg/dL Normal 65-139 [facility] Comment on above: Result Comment: Non-fasting reference interval Performed By: #### 7 600, 43063, 175, 899 #### [facility] of [place] [address] Trimmer Sorter: Luis Armando Canseco MD Potassium [Moles/Vol] 4.5 mmol/L Normal 3.5-5.3 [facility] Comment on above: Performed By: #### 7 600, 67312, 1758, 899 #### [facility] [place] [address] Trimmer Sorter: Luis Armando Canseco MD Protein [Mass/Vol] 6.5 g/dL Normal 6.1-8.1 [facility] Comment on above: Performed By: #### 7 600, 71010, 1758, 899 #### [facility] [place] [address] Trimmer Sorter: Luis Armando Canseco MD Sodium [Moles/Vol] 138 mmol/L Normal 135-146 [facility] Comment on above: Performed By: #### 7 600, 70278, 1758, 899 #### [facility] [place] [address] Trimmer Sorter: Luis Armando Canseco MD Urea nitrogen [Mass/Vol] 19 mg/dL Normal 7-25 [facility] Comment on above: Performed By: #### 7 600, 83095, 1758, 899 #### [facility] of [place] [address] Trimmer Sorter: Luis Armando Canseco MD LIPID PANEL, STANDARD 0 Cholesterol [Mass/Vol] 118 mg/dL Normal <200 [facility] Comment on above: Order Comment: FASTI NG:NO FASTING: NO Performed By: #### 7 600, 24731, 175, 899 #### [facility] of [place] [address] Trimmer Sorter: Luis Armando Canseco MD Cholesterol in HDL [Mass/Vol] 50 mg/dL Normal > OR = 50 [facility] Comment on above: Order Comment: FASTI NG:NO FASTING: NO Performed By: #### 7 600, 34342, 3952, 899 #### [facility] [place] [address] Trimmer Sorter: Luis Armando Canseco MD Cholesterol in LDL [...] equation in the estimation of LDL-C. Angel BURGOS et al. DOMINGO. 2013;310(19): 1878-6691 (http://education.Simio.Swissmed Mobile/faq/AEK035) Performed By: #### 7 600, 91498, 4928, 896 #### [facility] [place] [address] Trimmer Sorter: Luis Armando Canseco MD Cholesterol.total/Chol esterol in HDL [Mass ratio] 2.4 {ratio} Normal <5.0 [facility] Comment on above: Order Comment: FASTI NG:NO FASTING: NO Performed By: #### 7 600, 48460, 7936, 899 #### [facility] [address], [address] [place] [address] Trimmer Sorter: Luis Armando Canseco MD NON HDL CHOLESTEROL 68 mg/dL (calc) Normal <130 [facility] Comment on above: Order Comment: FASTI NG:NO FASTING: NO Result Comment: For patients with diabetes plus 1 major ASCVD risk factor, treating to a non-HDL-C goal of <100 mg/dL (LDL-C of <70 mg/dL) is considered a therapeutic option. Performed By: #### 7 600, 24028, 1280, 896 #### [facility] [address] [place] [address] Trimmer Sorter: Luis Armando Canseco MD Triglyceride [Mass/Vol] 67 mg/dL Normal <150 [facility] Comment on above: Order Comment: FASTI NG:NO FASTING: NO Performed By: #### 7 600, 33672, 1759, 899 #### [facility] of [address], [address] [place] [address] Trimmer Sorter: Luis Armando Canseco MD TSHon 04-16-2025 TSH Qn 3.30 m[IU]/L Normal 0.40-4.50 [facility] Comment on above: Performed By: #### 7 600, 89335, 1759, 899 #### [facility] of [address], [address] [place] [address] Trimmer Sorter: Luis Armando Canseco MD CT PELVIS W [...] unspecified severity (Multi) COMPARISON: 01/17/2023 ACCESSION NUMBER(S): [id number] ORDERING CLINICIAN: DARIELA GARZA TECHNIQUE: Serial axial [...] Mckenzie Weaver 02/11/2025 11:46 AM Dictation workstation: [id number] [facility] CREATININEon 01-31-2025 Creatinine [Mass/Vol] 0.70 mg/dL Normal 0.60-0.95 [facility] [employer] Comment on above: Performed By: #### 3 75, 294 #### [facility] [address] [address] Trimmer Sorter: Luis Armando Canseco MD GFR/1.73 sq M.predicted among non-blacks MDRD (S/P/Bld) [Vol rate/Area] 86 mL/min/{1.73_m2} Normal > OR = 60 [facility] Comment on above: Performed By: #### 3 75, 294 #### [facility] [address], [address] [place] [phone] Trimmer Sorter: Luis Armando Canseco MD UREA NITROGEN (BUN)on 2024 Urea nitrogen [Mass/Vol] 14 mg/dL Normal 7-25 [facility] Comment on above: Order Comment: FASTI NG:YES FASTING: YES Performed By: #### 3 75, 294 #### [facility] [address], [address] [place] [address] Trimmer Sorter: Luis Armando Canseco MD XR PELVIS 1-2 VIEWSon 2024 XR PELVIS 1-2 VIEWS Interpreted By: Tere Rosa, STUDY: XR PELVIS 1-2 VIEWS 01/21/2025 10:03 am INDICATION: Signs/Symptoms:gluteal cleft ulcer. sacral hardware. ? related COMPARISON: None available. ACCESSION NUMBER(S): [id number] ORDERING CLINICIAN: DARIELA GARZA TECHNIQUE: AP view [...] Tere Rosa 01/21/2025 7:38 PM Dictation workstation: [id number] [facility] XR Pelvis 1 or 2 Viewson 2 [...] Tere Rosa 01/21/2025 7:38 PM Dictation workstation: [id number] Interpreted By: Tere Rosa, STUDY: XR PELVIS 1-2 VIEWS 01/21/2025 10:03 am INDICATION: Signs/Symptoms:gluteal cleft ulcer. sacral hardware. ? related COMPARISON: None available. ACCESSION NUMBER(S): [id number] ORDERING CLINICIAN: DARIELA GARZA TECHNIQUE: AP view [...] ? related COMPARISON: None available. ACCESSION NUMBER(S): [id number] ORDERING CLINICIAN: DARIELA GARZA TECHNIQUE: AP view [...] Tere Rosa 01/21/2025 7:38 PM Dictation workstation: [id number] [facility] Work Phone: Radiology Study observation (narrative) [facility] Work Phone: XR Pelvis 1 or 2 ViewsOrdere d By: Tere Rosa on 01-21-2025 [facility] Work Phone: DRUG MONITOR, PANEL 5, SCREE N, URINEon 01-02-2025 Amphetamines Negative Normal <500 [facility] Comment on above: Result Comment: See Note A Performed By: #### 3 9022 #### [facility] [address] [place] [address], [address] [place] [phone] Trimmer Sorter: Luis Armando Canseco MD Barbiturates Negative Normal <300 [facility] Comment on above: Result Comment: See Note A Performed By: #### 3 8543 #### [facility] of [address], [address] [place] [address] Trimmer Sorter: Luis Armando Canseco MD Benzodiazepines Negative Normal <100 [facility] Comment on above: Result Comment: See Note A Performed By: #### 3 9420 #### [facility] of [address], [address] [place] [address] Trimmer Sorter: Luis Armando Canseco MD Cocaine Metabolite Negative Normal <150 [facility] Comment on above: Result Comment: See Note A Performed By: #### 3 9420 #### [facility] of [address], [address] [place] [address] Trimmer Sorter: Luis Armando Canseco MD Creatinine (U) [Mass/Vol] 60.5 mg/dL Normal > or = 20.0 [facility] Comment on above: Performed By: #### 3 9420 #### [facility] of [place] [address] Trimmer Sorter: Luis Armando Canseco MD Marijuana Metabolite Negative Normal <20 [facility] Comment on above: Result Comment: See Note A Performed By: #### 3 9420 #### [facility] of [place] [address] Trimmer Sorter: Luis Armando Canseco MD Methadone Metabolite Negative Normal <100 [facility] Comment on above: Result Comment: See Note A Performed By: #### 3 9420 #### [facility] of [place] [address] Trimmer Sorter: Luis Armando Canseco MD Opiates Positive Abnormal <100 [facility] Comment on above: Result Comment: See Note A Performed By: #### 3 9420 #### [facility] of [place] [address] Trimmer Sorter: Luis Armando Canseco MD Oxidant Negative Normal <200 [facility] Comment on above: Performed By: #### 3 9420 #### [facility] [place] [address] Trimmer Sorter: Luis Armando Canseco MD Oxycodone Negative Normal <100 [facility] Comment on above: Result Comment: See Note A Performed By: #### 3 9420 #### [facility] [address], [address] [place] [address] Trimmer Sorter: Luis Armando Canseco MD pH (U) 6.6 [pH] Normal 4.5-9.0 [facility] Comment on above: Performed By: #### 3 9420 #### [facility] [address], [address] [place] [address] Trimmer Sorter: Luis Armando Canseco MD DRUG MONITORING TEMPLATEon 0 01-02-2025 Notes and Comments Normal [facility] Comment on above: Result Comment: This [...] needing Interpretation assistance, please contact us at [phone] ( ) M-F, 8am to 10pm EST Performed By: #### 3 9420 #### [facility] [address], [address] [place] [address] Trimmer Sorter: Luis Armando Canseco MD XR OR FLUOROSCOPY TIMEon XR OR FLUOROSCOPY TIME This is an auto finalized result. Please refer to patient chart for further information. further information. further information. [facility] Comment on above: Order Comment: Injur y/Trauma or Illness?:Illness/Other How long have you had these symptoms (acute/chronic)?:Acute Reason for exam?:Cervical interlaminar epidural steroid injection, cervical 7- thoracic 1 Type of Exam?:Unknown Additional signs and symptoms?:n Fluoro time in minutes:0.16 9.5 seconds Fluoro dose in mGy?:0.28 mGy LG Jt Injection/Arthrocentes is: Filiberto glenohumeralon 10-08-2024 Christine Voss CNP 10/08/2024 3:05 PM LG Jt Injection/Arthrocentesis : L glenohumeral Performed by: Christine Voss CNP Authorized by: Christine Voss CNP CPT 56182 - Large Joint Arthrocentesis: Consent given by: [...] the procedure well with no immediate complications [facility] LG Jt Injection/Arthrocentes is: L greater trochanteric bursaon 10-08-2024 Christine Voss CNP 10/08/2024 3:05 PM LG Jt Injection/Arthrocentesis : L greater trochanteric bursa Performed by: Christine Voss CNP Authorized by: Christine Voss CNP CPT 38945 - Large Joint Arthrocentesis: Consent given by: [...] the procedure well with no immediate complications [facility] No Panel Informationon 10-08 [facility] CBC panel Auto (Bld)on 08-17 Erythrocyte distribution width (RBC) [Ratio] 15.0 % High 11.5-14.5 [facility] Comment on above: Performed By: #### 5 8410-2 #### SUMNER TIM ([id number]) [facility] ([facility]) [address] [place] [address] Hematocrit (Bld) [Volume fraction] 41.9 % Normal 36.0-46.0 [facility] Comment on above: Performed By: #### 5 8410-2 #### BURAK DUMONT (62718) [facility] ([facility]) [address] [place] [address] Hemoglobin (Bld) [Mass/Vol] 13.2 g/dL Normal 12.0-16.0 [facility] Comment on above: Performed By: #### 5 8410-2 #### [facility] DUMONT (66260) [facility] ([facility]) [address] [place] [address] MCH (RBC) [Entitic mass] 30.3 pg Normal 26.0-34.0 [facility] Comment on above: Performed By: #### 5 8410-2 #### [facility] DUMONT (47515) [facility] ([facility]) [address] [place] [address] MCHC (RBC) [Mass/Vol] 31.5 g/dL Low 32.0-36.0 [facility] Comment on above: Performed By: #### 5 8410-2 #### BURAK DUMONT (96829) [facility] ([facility]) [address] [place] [address] MCV (RBC) [Entitic vol] 96 fL Normal 80-100 [facility] Comment on above: Performed By: #### 5 8410-2 #### [facility]UR[facility] DUMONT (68762) [facility] ([facility]) [address] [place] [address] Nucleated RBC/100 WBC (Bld) [Ratio] 0.0 /100 WBCs Normal 0.0-0.0 [facility] Comment on above: Performed By: #### 5 8410-2 #### [facility]URAK DUMONT (67779) [facility] ([facility]) [address] [place] [address] Platelets (Bld) [#/Vol] 168 x10*3/uL Normal 150-450 [facility] Comment on above: Performed By: #### 5 8410-2 #### [facility] DUMONT (61490) [facility] ([facility]) [address] [place] [address] RBC (Bld) [#/Vol] 4.36 x10*6/uL Normal 4.00-5.20 [facility] Comment on above: Performed By: #### 5 8410-2 #### BURAK DUMONT (68789) [facility] ([facility]) [address] [place] [address] WBC (Bld) [#/Vol] 4.9 x10*3/uL Normal 4.4-11.3 [facility] Comment on above: Performed By: #### 5 8410-2 #### BURAK DUMONT (56451) [facility] ([facility]) [address] [place] [address] Comprehensive metabolic 2000 panelon 08-17-2024 Albumin BCP dye [Mass/Vol] 3.5 g/dL Normal 3.4-5.0 [facility] Comment on above: Performed By: #### 2 4323-8 #### BURAK DUMONT (57289) [facility] ([facility]) [address] [place] [address] ALP [Catalytic activity/Vol] 179 U/L High 33-136 [facility] Comment on above: Performed By: #### 2 4323-8 #### BURAK DUMONT (91214) [facility] ([facility]) [address] [place] [address] ALT With P-5'-P [Catalytic activity/Vol] 9 U/L Normal 7-45 [facility] Comment on above: Result Comment: Cielo ents treated with Sulfasalazine may generate falsely decreased results for ALT. Performed By: #### 2 4323-8 #### BURAK DUMONT (98975) [facility] ([facility]) [address] [place] [address] Anion gap [Moles/Vol] 9 mmol/L Low 10-20 [facility] Comment on above: Performed By: #### 2 4323-8 #### BURAK DUMONT (16419) [facility] ([facility]) [address] [place] [address] AST With P-5'-P [Catalytic activity/Vol] 34 U/L Normal 9-39 [facility] Comment on above: Performed By: #### 2 4323-8 #### BURAK DUMONT (16984) [facility] ([facility]) [address] [place] [address] Bilirubin [Mass/Vol] 0.9 mg/dL Normal 0.0-1.2 [facility] Comment on above: Performed By: #### 2 4322-8 #### BURAK DUMONT (46594) [facility] ([facility]) [address] [place] [address]97 Calcium [Mass/Vol] 8.7 mg/dL Normal 8.6-10.3 [facility] Comment on above: Performed By: #### 2 4322-8 #### BURAK DUMONT (78876) [facility] ([facility]) [address] [place] [address] Chloride [Moles/Vol] 104 mmol/L Normal 98-107 [facility] Comment on above: Performed By: #### 2 432-8 #### BURAK DUMONT (56479) [facility] ([facility]) [facility] [place] [address] CO2 [Moles/Vol] 31 mmol/L Normal 21-32 [facility] Comment on above: Performed By: #### 2 4322-8 #### BURAK DUMONT (28275) [facility] ([facility]) [address] [place] [address] Creatinine [Mass/Vol] 0.56 mg/dL Normal 0.50-1.05 [facility] Comment on above: Performed By: #### 2 432-8 #### [facility] DUMONT (09302) [facility] ([facility]) [address] [place] [address] GFR/1.73 sq M.predicted MDRD (S/P/Bld) [Vol rate/Area] mL/min/{1.73_m2} Normal >60 [facility] Comment on above: Result Comment: Calc ulations of estimated GFR are performed using the 2020 CKD-EPI Study Refit equation without the race variable for the IDMS-Traceable creatinine methods. https://jasn.asnjournals.org/content//ASN.20674 42965 Performed By: #### 2 4323-8 #### BURAK DUMONT (65308) [facility] ([facility]) [address] [place] [address] Glucose [Mass/Vol] 79 mg/dL Normal 74-99 [facility] Comment on above: Performed By: #### 2 4323-8 #### [facility] DUMONT (96516) [facility] ([facility]) [address] [place] [address] Potassium [Moles/Vol] 3.5 mmol/L Normal 3.5-5.3 [facility] Comment on above: Performed By: #### 2 4323-8 #### BURAK DUMONT (37139) [facility] ([facility]) [address] [place] [address]03 Protein [Mass/Vol] 5.9 g/dL Low 6.4-8.2 [facility] Comment on above: Performed By: #### 2 4323-8 #### BUR[facility] DUMONT (08243) [facility] ([facility]) [address] [place] [address] Sodium [Moles/Vol] 140 mmol/L Normal 136-145 [facility] Comment on above: Performed By: #### 2 4323-8 #### BUR[facility] DUMONT (15767) [facility] ([facility]) [address] [place] [address]05 Urea nitrogen [Mass/Vol] 13 mg/dL Normal 6-23 [facility] Comment on above: Performed By: #### 2 4323-8 #### BURAK DUMONT (76354) [facility] ([facility]) [address] [place] [address] LG Jt Injection/Arthrocentes is: L greater trochanteric bursaon 06-01-2024 Sujata Bradford CNP 06/01/2024 11:08 AM LG Jt Injection/Arthrocentesis : L greater trochanteric bursa Performed by: Sujata Bradford CNP Authorized by: Sujata Bradford CNP CPT 12432 - Large Joint Arthrocentesis: Consent given by: [...] the procedure well with no immediate complications [facility] LG Jt Injection/Arthrocentes is: L subacromial bursaon 06-01-2024 Sujata Bradford CNP 06/01/2024 11:08 AM LG Jt Injection/Arthrocentesis : L subacromial bursa Performed by: Sujata Bradford CNP Authorized by: Sujata Bradford CNP CPT 30795 - Large Joint Arthrocentesis: Consent given by: [...] the procedure well with no immediate complications [facility] No Panel Informationon 06-01 [facility] MR CERVICAL SPINE WITHOUT CO NTRASTon [...] abnormal signal in the cervical spinal cord. [employer] Workstation ID: [id number] Dictated by: RASHAWN VELASQUEZ on TueApr 09, 2024 9:24:12 AM EDT Transcribed by: BABS SANTORO on TueApr 09, 2024 10:32:25 AM EDT Finalized by: RASHAWN VELASQUEZ on TueApr 09, 2024 11:30:22 AM EDT Normal [facility] Comment on above: Order Comment: Injur [...] at time of read. Workstation ID: [id number] [employer] EXAMINATION: XR CERVICAL SPINE AP/LAT/FLEX/EXT HISTORY: ORDERING [...] uncovertebral hypertrophy. No prevertebral soft tissue swelling. RIS Zachariah Dietz MD - 11/16/2023 EXAMINATION: XR [...] at time of read. Workstation ID: [id number] [facility] XR Cervical spine AP and Lat eralOrdered By: Zachariah Dietz on 11-16-2023 [facility] Work Phone: XR Cervical spine AP and Lat eralon 11-15-2023 Radiology Study observation (narrative) [facility] Drugs of abuse screen W Refl ex confirm panel (U)on 10-13-2023 Amphetamines Screen Ql (U) Negative Presumptive Negative [facility] Comment on above: CUTOFF LEVEL: 500 NG /ML Cross-reactivity has been reported with high concentrations of the following drugs: buproprion, chloroquine, chlorpromazine, ephedrine, mephentermine, fenfluramine, phentermine, phenylpropanolamine, pseudoephedrine, and propranolol. Barbiturates Screen Ql (U) Negative Presumptive Negative [facility] Comment on above: CUTOFF LEVEL: 200 NG /ML Benzodiazepines Ql (U) Negative Presu mptive Negative [facility] Comment on above: CUTOFF LEVEL: 200 NG /ML Benzoylecgonine Screen Ql (U) Negative Presumptive Negative [facility] Comment on above: CUTOFF LEVEL: 150 NG /ML Cannabinoids Screen Ql (U) Negative Presumptive Negative [facility] Comment on above: CUTOFF LEVEL: 50 NG/ ML fentaNYL+Norfentanyl Screen Ql (U) Negative Presumptive Negative [facility] Comment on above: CUTOFF LEVEL: 5 NG/M L Interpretation and review of laboratory results Normal [facility] Opiates Screen Ql (U) Negative Presum ptive Negative [facility] Comment on above: CUTOFF LEVEL: 300 NG /ML The opiate screen does not detect fentanyl, meperidine, or tramadol. Oxycodone is not consistently detected (refer to Oxycodone Screen, Urine result). oxyCODONE+oxyMORphone Screen Ql (U) Negative Presumptive Negative [facility] Comment on above: CUTOFF LEVEL: 100 NG /ML This test will accurately detect both oxycodone and oxymorphone. Phencyclidine Ql (U) Negative Presump tive Negative [facility] Comment on above: CUTOFF LEVEL: [...] be directed to the laboratory medical directors. [facility] LG Jt Injection/Arthrocentes is: L glenohumeralon 10-13-2023 Christine Voss CNP 10/13/2023 3:25 PM LG Jt Injection/Arthrocentesis : L glenohumeral Performed by: Christine Voss CNP Authorized by: Christine Voss CNP CPT 74557 - Large Joint Arthrocentesis: Consent given by: [...] the procedure well with no immediate complications [facility] CBC panel Auto (Bld)on 10-12 Erythrocyte distribution width (RBC) [Ratio] 18.4 % High 11.5-14.5 [facility] Comment on above: Performed By: #### 5 8410-2 #### SUMNER TIM ([id number]) [facility] ([facility]) [address] [place] [address] Hematocrit (Bld) [Volume fraction] 38.4 % Normal 36.0-46.0 [facility] Comment on above: Performed By: #### 5 8410-2 #### BURAK DUMONT ([id number]) [facility] ([facility]) [address] [place] [address] Hemoglobin (Bld) [Mass/Vol] 12.1 g/dL Normal 12.0-16.0 [facility] Comment on above: Performed By: #### 5 8410-2 #### BURAK DUMONT ([id number]) [facility] ([facility]) [address] [place] [address] MCH (RBC) [Entitic mass] 27.9 pg Normal 26.0-34.0 [facility] Comment on above: Performed By: #### 5 8410-2 #### BURAK DUMONT ([id number]) [facility] ([facility]) [address] [place] [address] MCHC (RBC) [Mass/Vol] 31.5 g/dL Low 32.0-36.0 [facility] Comment on above: Performed By: #### 5 8410-2 #### BURAK DUMONT ([id number]) [facility] ([facility]) [address] [place] [address] MCV (RBC) [Entitic vol] 89 fL Normal 80-100 [facility] Comment on above: Performed By: #### 5 8410-2 #### BURAK DUMONT ([id number]) [facility] ([facility]) [address] [place] [address] Nucleated RBC/100 WBC (Bld) [Ratio] 0.0 /100 WBCs Normal 0.0-0.0 [facility] Comment on above: Performed By: #### 5 8410-2 #### BURAK DUMONT ([id number]) [facility] ([facility]) [address] [place] [address] Platelets (Bld) [#/Vol] 197 x10*3/uL Normal 150-450 [facility] Comment on above: Performed By: #### 5 8410-2 #### BURAK DUMONT ([id number]) [facility] ([facility]) [address] [place] [address] RBC (Bld) [#/Vol] 4.33 x10*6/uL Normal 4.00-5.20 [facility] Comment on above: Performed By: #### 5 8410-2 #### BURAK DUMONT ([id number]) [facility] ([facility]) [address] [place] [address] WBC (Bld) [#/Vol] 5.4 x10*3/uL Normal 4.4-11.3 [facility] Comment on above: Performed By: #### 5 8410-2 #### BURAK DUMONT ([id number]) [facility] ([facility]) [address] [place] [address] Thyrotropinon 10-12-2023 TSH Qn 3.56 m[IU]/L Normal 0.44-3.98 [facility] Comment on above: Order Comment: TSH t esting is performed using different testing methodology at [facility] than at [facility]. Direct result comparisons should only be made within the same method. Performed By: #### 3 016-3 #### BURAK DUMONT ([id number]) [facility] ([facility]) [address] [place] [address] ABORH Verificationon 023 ABO and Rh group Nom (Bld) Blood group O Rh(D) positive [facility] ABO and Rh group Nom (Bld) ABO/Rh Verification [facility] Comment on above: Patient's ABO/Rh is verified. [facility] Arterial Lineon 05-19-2023 Luis M Garza [...] Final orientation: left Final location: radial Monitoring: case monitor, pulse oximetry, heart rate and BP Sedation: general anesthesia (see MAR) Prep: ChloraPrep Local infiltration: lidocaine 1% Technique: landmarks (Palpation) Final needle: 22 G Final catheter: 20 G x 1 3/4'' Number of attempts: 1 Assessment: draws and flushes without difficulty Post procedure: taped, sterile dressing applied and EBL <10 mL Patient tolerance: patient tolerated the procedure well with no immediate complications [facility] ETT Airwayon 05-19-2023 Dmitri Perry CRNA [...] tape Bite block: soft Lip/tooth/tongue trauma: no [facility] INR Coag (PPP) [Relative ely e]on 05-19-2023 Interpretation and review of laboratory results Normal [facility] PT Coag (PPP) [Time] 14.2 s [facility] During the induction phase of oral anticoagulation, the INR may not reflect the anticoagulation status of the patient. Therapeutic ranges for INR's are: Most clinical situations: INR 2.0-3.0 Mechanical Prosthetic Valve: INR 2.5-3.5 Critical: INR >5.0 [facility] Laboratory - Blood bankon ABO and Rh group Nom (Bld) 5100 [facility] ABO and Rh group Nom (Bld) Blood group O Rh(D) positive [facility] No Panel Informationon 05-19 Cross Match Compatible [facility] Product Code [id number] [facility] Product ID Red Blood Cells [facility] h Status Info Ready for issue [facility] POC ABG SURGon 05-19-2023 Base Excess, Arterial 3 High -2 - 2 [facility] Calcium.ionized (Bld) [Mass/Vol] 4.6 mg/dL 4.5 - 5.3 mg/dL [facility] CO2 (Bld) [Partial pressure] 40.8 mm[Hg] [facility] Glucose [Mass/Vol] 101 mg/dL High 65 - 99 mg/dL [facility] HCO3 (Bld) [Moles/Vol] 27.8 mmol/L High 22.0 - 26.0 mmol/L [facility] Hematocrit (Bld) [Volume fraction] 28 % Low 36 - 46 % [facility] Hemoglobin (Bld) [Mass/Vol] 9.5 g/dL Low 12.0 - 16.0 g/dL [facility] Interpretation and review of laboratory results Abnormal [facility] Oxygen (Bld) [Partial pressure] 327 mm[Hg] High [facility] pH (Bld) 7.44 [pH] 7.35 - 7.45 [facility] Potassium [Moles/Vol] 3.1 mmol/L Low 3.5 - 5.1 mmol/L [facility] Sodium [Moles/Vol] 142 mmol/L 135 - 145 mmol/L [facility] Base Excess, Arterial 6 High -2 - 2 [facility] Calcium.ionized (Bld) [Mass/Vol] 4.5 mg/dL 4.5 - 5.3 mg/dL [facility] CO2 (Bld) [Partial pressure] 38.6 mm[Hg] [facility] Glucose [Mass/Vol] 101 mg/dL High 65 - 99 mg/dL [facility] HCO3 (Bld) [Moles/Vol] 29.7 mmol/L High 22.0 - 26.0 mmol/L [facility] Hematocrit (Bld) [Volume fraction] 30 % Low 36 - 46 % [facility] Hemoglobin (Bld) [Mass/Vol] 10.2 g/dL Low 12.0 - 16.0 g/dL [facility] Interpretation and review of laboratory results Abnormal [facility] Oxygen (Bld) [Partial pressure] High [facility] pH (Bld) 7.49 [pH] High 7.35 - 7.45 [facility] Potassium [Moles/Vol] 3.2 mmol/L Low 3.5 - 5.1 mmol/L [facility] Sodium [Moles/Vol] 140 mmol/L 135 - 145 mmol/L [facility] PT/INRon 05-19-2023 INR Coag (PPP) [Relative time] 1.1 {INR} 0.8 - 1.1 [facility] Prepare RBC: 2 Unitson 05-19 Product Code [id number] [facility] Unit Number [id number] [facility] Unit Number [id number] [facility] Unit Number [id number] [facility] Basic metabolic 2000 panelon 05-05-2023 Anion gap [Moles/Vol] 4 mmol/L Low 10 - 2 0 mmol/L [facility] Calcium [Mass/Vol] 9.0 mg/dL 8.4 - 10. 2 mg/dL [facility] Chloride [Moles/Vol] 105 mmol/L 98 - 10 8 mmol/L [facility] Creatinine [Mass/Vol] 0.66 mg/dL 0.60 - 1.20 mg/dL [facility] GFR/1.73 sq M.predicted CKD-EPI (S/P/Bld) [Vol rate/Area] 88 - PINF [facility] Comment on above: Estimated GFR was ca lculated using the 2020 CKD-EPI creatinine equation. Glucose [Mass/Vol] 88 mg/dL 65 - 99 mg/dL [facility] HCO3 [Moles/Vol] 33 mmol/L High 21 - 32 mmol/L [facility] Interpretation and review of laboratory results Abnormal [facility] Potassium [Moles/Vol] 3.7 mmol/L 3.5 - 5.1 mmol/L [facility] Sodium [Moles/Vol] 138 mmol/L 135 - 145 mmol/L [facility] Urea nitrogen [Mass/Vol] 15 mg/dL 8 - 25 mg/dL [facility] Urea nitrogen/Creatinine [Mass ratio] 22.7 mg/mg High 10.0 - 20.0 [facility] Laborator y Services has implemented the eGFR calculation approach that does not have a coefficient for race that conforms to the NKF-ASN Task Force Recommendations. [facility] CBC panel Auto (Bld)on 05-05 Erythrocyte distribution width (RBC) [Entitic vol] 15.9 % High 11.6 - 14.8 % [facility] Hematocrit (Bld) [Volume fraction] 38.7 % 36.0 - 46.0 % [facility] Hemoglobin (Bld) [Mass/Vol] 12.4 g/dL 12.0 - 16.0 g/dL [facility] Interpretation and review of laboratory results Abnormal [facility] MCH (RBC) [Entitic mass] 29.0 pg 26.0 - 34.0 pg [facility] MCHC (RBC) [Mass/Vol] 32.0 g/dL 31.0 - 37.0 g/dL [facility] MCV (RBC) [Entitic vol] 90.4 fL 80.0 - 100.0 fL [facility] Nucleated RBC (Bld) [#/Vol] 0.00 10*3/uL [facility] Nucleated RBC/100 WBC (Bld) [Ratio] 0.0 % [facility] Platelet mean volume (Bld) [Entitic vol] 10.5 fL 9.4 - 12.4 fL [facility] Platelets (Bld) [#/Vol] 159 10*3/uL [facility] RBC (Bld) [#/Vol] 4.28 10*6/uL [facility] WBC (Bld) [#/Vol] 3.94 10*3/uL Low [facility] Draw 4 [employer] (ARC)o n 05-05-2023 [facility] ECG 12 leadOrdered By: Nayeli Chapman on 04-11-2023 Atrial Rate [facility] P [place] [facility] P-R Interval [facility] Q-T Interval [facility] Q-T Interval (corrected) [facility] QRS Duration [facility] QTC Calculation (Bezet) [facility] R [place] [facility] T [place] [facility] Ventricular Rate [facility] Initial Visit (Gastroenterol ogy)on 03-28-2023 Initial Visit [...] sacral fracture- no fall) History of Present IllnessGrmery was hospitalized in January of this year [...] without rebo (more content not included)... Normal [facility] Clinical Event Noteon 2022 Clinical Event Note [...] Updated: 04-Mar-2023 12:27 by Maria Teresa Epperson) [facility] Panel Informationon 03-04 Please click on the link to view the study images Normal [facility] Work Phone: RFA Unspecified body region Limited Views for therapy or embolization or infusion W contrast via existing catheteron 03-04-2023 [employer] CONVERSIONS Conversion, [employer] log[employer] - 04/15/2023 [facility] Work Phone: Radiology Study observation (narrative) [facility] Work Phone: RFA Unspecified body region Limited Views for therapy or embolization or infusion W contrast via existing catheterOrdered By: Ge Conversion on 03-04-2023 [facility] Clinical Event Noteon 2022 Clinical [...] 18-Feb-2023 09:49 by Maria Teresa Epperson) Normal [facility] RFA Unspecified body region Limited Views for therapy or embolization or infusion W contrast via existing catheteron 02-18-2023 [employer] CONVERSIONS Conversion, [employer] log[employer] - 04/15/2023 [facility] Work Phone: Radiology Study observation (narrative) [facility] Work Phone: RFA Unspecified body region Limited Views for therapy or embolization or infusion W contrast via existing catheterOrdered By: Ge Conversion on 02-18-2023 [facility] CBCon 02-17-2023 Erythrocyte distribution width (RBC) [Ratio] 15.4 % High 11.5 - 14.5 [facility] Comment on above: Performed By: #### B NP2 #### [address] [address] Hematocrit (Bld) [Volume fraction] 36.5 % Normal 36.0 - 46.0 [facility] Comment on above: Performed By: #### B NP2 #### [address] [address] Hemoglobin (Bld) [Mass/Vol] 11.5 g/dL Low 12.0 - 16.0 [facility] Comment on above: Performed By: #### B NP2 #### [place] [address] MCHC (RBC) [Mass/Vol] 31.5 g/dL Low 32.0 - 36.0 [facility] Comment on above: Performed By: #### B NP2 #### [place] [address] MCV (RBC) [Entitic vol] 93 fL Normal 80 - 100 [facility] Comment on above: Performed By: #### B NP2 #### [place] [address] Platelets (Bld) [#/Vol] 204 10*3/uL Normal 150 - 450 [facility] Comment on above: Performed By: #### B NP2 #### [place] [address] RBC 3.93 x10E12/L Low 4.00 - 5.20 [facility] Comment on above: Performed By: #### B NP2 #### [place] [address] WBC (Bld) [#/Vol] 5.4 10*3/uL Normal 4.4 - 11.3 [facility] Comment on above: Performed By: #### B NP2 #### [place] [address] Lab Specimen Source Normal [facility] Comment on above: Performed By: #### B NP2 #### [place] [address] Performed By: #### T RP #### [place] [address] CBC panel Auto (Bld)on 02-17 Erythrocyte distribution width (RBC) [Ratio] 15.4 % High 11.5 - 14.5 % [facility] Hematocrit (Bld) [Volume fraction] 36.5 % 36.0 - 46.0 % [facility] Hemoglobin (Bld) [Mass/Vol] 11.5 g/dL Low 12.0 - 16.0 g/dL [facility] Interpretation and review of laboratory results Abnormal [facility] MCHC (RBC) [Mass/Vol] 31.5 g/dL Low 32.0 - 36.0 g/dL [facility] MCV (RBC) [Entitic vol] 93 fL 80 - 100 fL [facility] Platelets (Bld) [#/Vol] 204 10*3/uL [facility] RBC (Bld) [#/Vol] 3.93 10*6/uL Low [facility] WBC (Bld) [#/Vol] 5.4 10*3/uL [facility] COMPREHENSIVE PANELon 2022 Albumin [Mass/Vol] 3.4 g/dL Normal 3.4 - 5.0 [facility] Comment on above: Performed By: #### T RPHS #### [place] [address] ALP [Catalytic activity/Vol] 172 U/L High 33 - 136 [facility] Comment on above: Performed By: #### T RPHS #### [address] [address] ALT [Catalytic activity/Vol] 7 U/L Normal 7 - 45 [facility] Comment on above: Result Comment: Cielo ents treated with Sulfasalazine may generate falsely decreased results for ALT. Performed By: #### T RPHS #### [address] [address] Anion gap [Moles/Vol] 13 mmol/L Normal 10 - 20 [facility] Comment on above: Performed By: #### T RPHS #### [address] [address] AST [Catalytic activity/Vol] 30 U/L Normal 9 - 39 [facility] Comment on above: Performed By: #### T RPHS #### [address] [address] Bilirubin [Mass/Vol] 0.8 mg/dL Normal 0.0 - 1.2 [facility] Comment on above: Performed By: #### T RPHS #### [address] [address] Calcium [Mass/Vol] 8.8 mg/dL Normal 8.6 - 10.3 [facility] Comment on above: Performed By: #### T RPHS #### [address] [address] Chloride [Moles/Vol] 98 mmol/L Normal 98 - 107 [facility] Comment on above: Performed By: #### T RPHS #### [address] [address] Creatinine [Mass/Vol] 0.59 mg/dL Normal 0.50 - 1.05 [facility] Comment on above: Performed By: #### T RPHS #### [address] [address] GFR/1.73 sq M.predicted among non-blacks MDRD (S/P/Bld) [Vol rate/Area] 90 mL/min/{1.73_m2} Normal >90 [facility] Comment on above: Result Comment: CALC ULATIONS OF ESTIMATED GFR ARE PERFORMED USING THE 2020 CKD-EPI STUDY REFIT EQUATION WITHOUT THE RACE VARIABLE FOR THE IDMS-TRACEABLE CREATININE METHODS. https://jasn.asnjournals.org/content/early//ASN.52832 33198 Performed By: #### T RPHS #### [address] [address] Glucose [Mass/Vol] 80 mg/dL Normal 74 - 99 [facility] Comment on above: Performed By: #### T RPHS #### [address] [address] HCO3 (Bld) [Moles/Vol] 31 mmol/L Normal 21 - 32 [facility] Comment on above: Performed By: #### T RPHS #### [address] [address] Potassium [Moles/Vol] 3.7 mmol/L Normal 3.5 - 5.3 [facility] Comment on above: Performed By: #### T RP #### [address] [address] Protein [Mass/Vol] 6.2 g/dL Low 6.4 - 8.2 [facility] Comment on above: Performed By: #### T RP #### [address] [address] Sodium [Moles/Vol] 138 mmol/L Normal 136 - 145 [facility] Comment on above: Performed By: #### T RP #### [address] [address] Urea nitrogen [Mass/Vol] 12 mg/dL Normal 6 - 23 [facility] Comment on above: Performed By: #### T RP #### [address] [address] CBCon 01-28-2023 Erythrocyte distribution width (RBC) [Ratio] 16.4 % High 11.5 - 14.5 [facility] Comment on above: Performed By: #### M G #### [address] [address] Hematocrit (Bld) [Volume fraction] 30.6 % Low 36.0 - 46.0 [facility] Comment on above: Performed By: #### M G #### [address] [address] Hemoglobin (Bld) [Mass/Vol] 9.2 g/dL Low 12.0 - 16.0 [facility] Comment on above: Performed By: #### M G #### [address] [address] MCHC (RBC) [Mass/Vol] 30.1 g/dL Low 32.0 - 36.0 [facility] Comment on above: Performed By: #### M G #### [address] [address] MCV (RBC) [Entitic vol] 95 fL Normal 80 - 100 [facility] Comment on above: Performed By: #### M G #### [address] [address] Platelets (Bld) [#/Vol] 215 10*3/uL Normal 150 - 450 [facility] Comment on above: Performed By: #### M G #### [address] [address] RBC 3.22 x10E12/L Low 4.00 - 5.20 [facility] Comment on above: Performed By: #### M G #### [address] [address] WBC (Bld) [#/Vol] 4.9 10*3/uL Normal 4.4 - 11.3 [facility] Comment on above: Performed By: #### M G #### [place] [id number] COMPREHENSIVE PANELon 2022 Albumin [Mass/Vol] 3.2 g/dL Low 3.4 - 5.0 [facility] Comment on above: Performed By: #### C MP #### [address] [address] ALP [Catalytic activity/Vol] 156 U/L High 33 - 136 [facility] Comment on above: Performed By: #### C MP #### [address] [address] ALT [Catalytic activity/Vol] 6 U/L Low 7 - 45 [facility] Comment on above: Result Comment: Cielo ents treated with Sulfasalazine may generate falsely decreased results for ALT. Performed By: #### C MP #### [address] [address] Anion gap [Moles/Vol] 11 mmol/L Normal 10 - 20 [facility] Comment on above: Performed By: #### C MP #### [address] [address] AST [Catalytic activity/Vol] 22 U/L Normal 9 - 39 [facility] Comment on above: Performed By: #### C MP #### [address] [address] Bilirubin [Mass/Vol] 0.7 mg/dL Normal 0.0 - 1.2 [facility] Comment on above: Performed By: #### C MP #### [address] [address] Calcium [Mass/Vol] 8.7 mg/dL Normal 8.6 - 10.3 [facility] Comment on above: Performed By: #### C MP #### [address] [address] Chloride [Moles/Vol] 100 mmol/L Normal 98 - 107 [facility] Comment on above: Performed By: #### C MP #### [address] [address] Creatinine [Mass/Vol] 0.56 mg/dL Normal 0.50 - 1.05 [facility] Comment on above: Performed By: #### C MP #### [address] [address] eGFR FEMALE >90 Normal >90 [facility] Comment on above: Result Comment: CALC ULATIONS OF ESTIMATED GFR ARE PERFORMED USING THE 2020 CKD-EPI STUDY REFIT EQUATION WITHOUT THE RACE VARIABLE FOR THE IDMS-TRACEABLE CREATININE METHODS. https://jasn.asnjournals.org/content//ASN.45077 [address] Performed By: #### C MP #### [address] [address] Glucose [Mass/Vol] 71 mg/dL Low 74 - 99 [facility] Comment on above: Performed By: #### C MP #### [address] [address] HCO3 (Bld) [Moles/Vol] 32 mmol/L Normal 21 - 32 [facility] Comment on above: Performed By: #### C MP #### [address] [address] Potassium [Moles/Vol] 4.0 mmol/L Normal 3.5 - 5.3 [facility] Comment on above: Performed By: #### C MP #### [address] [address] Protein [Mass/Vol] 5.8 g/dL Low 6.4 - 8.2 [facility] Comment on above: Performed By: #### C MP #### [place] [address] Sodium [Moles/Vol] 139 mmol/L Normal 136 - 145 [facility] Comment on above: Performed By: #### C MP #### [place] [address] Urea nitrogen [Mass/Vol] 10 mg/dL Normal 6 - 23 [facility] Comment on above: Performed By: #### C MP #### [place] [address] Lab Specimen Source Normal [facility] Comment on above: Performed By: #### C MP #### [place] [address] Performed By: #### M G #### [place] [address] Clinical Note - Pharmacy v2- Medication Educationon 01-24-2023 Clinical Note - Pharmacy v2-Medication Education Clinical Note - Pharmacy v2: Discharge Meds: Document TopicDischarge Med Counseling Time Lubqtpsh33-14 minutes Prescription [facility] [employer] Medications Home Medications Review Status for Reconciliation: [...] Is This Intervention Medication Reconciliation Relatedno Time Qzxulsjr29-51 minutes TopicADR counseling; alternative drug; alternative method [...] Drug Reaction: Nausea/Vomiting Electronic Signatures: Dexter Garcia ([facility]) (Signed 24-Jan-2023 08:35) Authored: Discharge Meds, Education, Allergy Last Updated: 24-Jan-2023 08:35 by Dexter Garcia ([facility] [facility] CBCon 01-21-2023 Erythrocyte distribution width (RBC) [Ratio] 16.8 % High 11.5 - 14.5 [facility] Comment on above: Performed By: #### C BC #### [address] [address] Hematocrit (Bld) [Volume fraction] 25.9 % Low 36.0 - 46.0 [facility] Comment on above: Performed By: #### C BC #### [address] [address] Hemoglobin (Bld) [Mass/Vol] 8.5 g/dL Low 12.0 - 16.0 [facility] Comment on above: Performed By: #### C BC #### [address] [address] MCHC (RBC) [Mass/Vol] 32.8 g/dL Normal 32.0 - 36.0 [facility] Comment on above: Performed By: #### C BC #### [address] [address] MCV (RBC) [Entitic vol] 92 fL Normal 80 - 100 [facility] Comment on above: Performed By: #### C BC #### [address] [address] Platelets (Bld) [#/Vol] 172 10*3/uL Normal 150 - 450 [facility] Comment on above: Performed By: #### C BC #### [address] [address] RBC 2.82 x10E12/L Low 4.00 - 5.20 [facility] Comment on above: Performed By: #### C BC #### [address] [address] WBC (Bld) [#/Vol] 5.3 10*3/uL Normal 4.4 - 11.3 [facility] Comment on above: Performed By: #### C BC #### [address] [address] Discharge [id number] 023 Discharge Profile2 Discharge Orders: Anticipated Discharge Date: Anticipated Discharge [id number] Problem List: Additional Dx: Anemia: Catalog Name: Anemia, unspecified Black stools: Catalog Name: [facility] Providers: Provider RoleProvider Name AttendingShahid Colunga VaishaliOksana hutton DNAR: Code Status at Discharge: Full Code [...] pain since but she denies taking any pxjm-jgx-saxkesh pain meds. She was started on Eliquis [...] 21-Jan-2023 11:37:54 Appointments: Follow-Up Appointment 01: Physician/Dept/ServiceDr Kamilal Woodruff Reason for ReferralHospital Follow-up Call to Schedule in1 week [id number] [place] [address] Phone [phone] CommentsPlease call and schedule an appointment within 1 week of your Hospital Discharge Follow-Up Appointment 02: Physician/Dept/ServiceDr Damaris Reason for ReferralHospital Follow-up Call to Schedule in1 week [id number] [place] [address] Phone [phone] CommentsPlease call and schedule an appointment within 1 week of your Hospital Discharge Electronic Signatures: Flori Thornton (UNIT SECT) (Signed 21-Jan-2023 12:03) Authored: Discharge Orders, Appointments Shahid Colunga (DO) (Signed 21-Jan-2023 11:37) Authored: Discharge Orders, Hospital Course (Home Care/Gold Form), Provider FINAL REVIEW of Orders, Appointments, Gold Form - Erp Developer Summary Last Updated: 21-Jan-2023 12:03 by Flori Thornton (UNIT SECT) [facility] Order Reconciliationon 01-21 Order Reconciliation Page 1 Discharge Reconciliation Document Reconciliation Type: Discharge requested on behalf of Shahid Colunga (Physician) done by Shahid Colunga (DO) Discharge - Reconciliation: 21-Jan-2023 10:54 by: Shahid [...] Tablet (SY (more content not included)... [facility] ABO/RH GROUP TESTon 01-21-20 23 ABO TYPE O [facility] Comment on above: Performed By: #### B NP2 #### [place] [address] RH TYPE Positive [facility] Comment on above: Performed By: #### B NP2 #### [address] [address] CBCon 01-20-2023 Erythrocyte distribution width (RBC) [Ratio] 16.2 % High 11.5 - 14.5 [facility] Comment on above: Performed By: #### B NP2 #### [address] [address] Hematocrit (Bld) [Volume fraction] 23.8 % Low 36.0 - 46.0 [facility] Comment on above: Performed By: #### B NP2 #### [address] [address] Hemoglobin (Bld) [Mass/Vol] 7.4 g/dL Low 12.0 - 16.0 [facility] Comment on above: Performed By: #### B NP2 #### [address] [address] MCHC (RBC) [Mass/Vol] 31.1 g/dL Low 32.0 - 36.0 [facility] Comment on above: Performed By: #### B NP2 #### [address] [address] MCV (RBC) [Entitic vol] 95 fL Normal 80 - 100 [facility] Comment on above: Performed By: #### B NP2 #### [address] [address] Platelets (Bld) [#/Vol] 185 10*3/uL Normal 150 - 450 [facility] Comment on above: Performed By: #### B NP2 #### [address] [address] RBC 2.50 x10E12/L Low 4.00 - 5.20 [facility] Comment on above: Performed By: #### B NP2 #### [address] [address] WBC (Bld) [#/Vol] 5.0 10*3/uL Normal 4.4 - 11.3 [facility] Comment on above: Performed By: #### B NP2 #### [address] [place] [address] Daily Progress Note-Medicine on 01-20-2023 Daily Progress [...] NEGATIVE: Mood Changes, Anxiety Subjective Data: ALMA MCPHERSON is a 82 year old Female who is Hospital Day # 4 and POD #1 for 1. EGD;2. ;3. ;4. ;5. 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 in [facility] and she says I need to be at the top of my game No shortness of breath and she is having bowel movements but she does note color radius No chest pains or any other complaints Objective Data: Objective Information: T PRBPMAPSpO2 Value36.62497635/996657% Date/Time01/20 11: 11: 7:344 11: 16:40413 11:27 [...] the next 24 hours Electronic Signatures: Shahid Colunga) (Signed 20-Jan-2023 12:48) Authored: Service, Review of Systems, Subjective Data, Objective Data, Assessment and Plan, Note Completion Last Updated: 20-Jan-2023 12:48 by Shahid Colunga (DO) [facility]-LEUKOREDUCED RED ABDIRIZAK LSon 01-20-2023 REQUEST-LEUKOREDUCED RED CELLS Canceled [facility] Comment on above: Order Comment: TEST REQUEST-LEUKOREDUCED RED CELLS WAS CANCELLED, 01/20/2023 13:13 DUPLICATEORDER. Performed By: #### M G #### [place] [address] REQUEST-LEUKOREDUCED RED CELLS ORDER RECD [facility] Comment on above: Performed By: #### O FLAG SIGNALER #### [place] [id number] TYPE + SCREENon 01-20-2023 ABO TYPE O [facility] Comment on above: Performed By: #### M G #### [place] [id number] RH TYPE Positive [facility] Comment on above: Performed By: #### M G #### [place] [id number] BASIC METABOLIC PANELon 01-08 Anion gap [Moles/Vol] 7 mmol/L Low 10 - 20 [facility] Comment on above: Performed By: #### B NP2 #### [place] [id number] Calcium [Mass/Vol] 8.1 mg/dL Low 8.6 - 10.3 [facility] Comment on above: Performed By: #### B NP2 #### [address] [address] Chloride [Moles/Vol] 103 mmol/L Normal 98 - 107 [facility] Comment on above: Performed By: #### B NP2 #### [address] [address] Creatinine [Mass/Vol] 0.57 mg/dL Normal 0.50 - 1.05 [facility] Comment on above: Performed By: #### B NP2 #### [address] [address] eGFR FEMALE >90 Normal >90 [facility] Comment on above: Result Comment: CALC ULATIONS OF ESTIMATED GFR ARE PERFORMED USING THE 2020 CKD-EPI STUDY REFIT EQUATION WITHOUT THE RACE VARIABLE FOR THE IDMS-TRACEABLE CREATININE METHODS. https://jasn.asnjournals.org/content//ASN.92326 [address] Performed By: #### B NP2 #### [address] [address] Glucose [Mass/Vol] 89 mg/dL Normal 74 - 99 [facility] Comment on above: Performed By: #### B NP2 #### [address] [address] HCO3 (Bld) [Moles/Vol] 32 mmol/L Normal 21 - 32 [facility] Comment on above: Performed By: #### B NP2 #### [address] [address] Potassium [Moles/Vol] 3.5 mmol/L Normal 3.5 - 5.3 [facility] Comment on above: Performed By: #### B NP2 #### [address] [address] Sodium [Moles/Vol] 138 mmol/L Normal 136 - 145 [facility] Comment on above: Performed By: #### B NP2 #### [address] [address] Urea nitrogen [Mass/Vol] 14 mg/dL Normal 6 - 23 [facility] Comment on above: Performed By: #### B NP2 #### [address] [address] CBCon 01-19-2023 Erythrocyte distribution width (RBC) [Ratio] 16.0 % High 11.5 - 14.5 [facility] Comment on above: Performed By: #### M G #### [address] [address] Hematocrit (Bld) [Volume fraction] 24.1 % Low 36.0 - 46.0 [facility] Comment on above: Performed By: #### M G #### [address] [address] Hemoglobin (Bld) [Mass/Vol] 7.6 g/dL Low 12.0 - 16.0 [facility] Comment on above: Performed By: #### M G #### [address] [address] MCHC (RBC) [Mass/Vol] 31.5 g/dL Low 32.0 - 36.0 [facility] Comment on above: Performed By: #### M G #### [address] [address] MCV (RBC) [Entitic vol] 95 fL Normal 80 - 100 [facility] Comment on above: Performed By: #### M G #### [address] [address] Platelets (Bld) [#/Vol] 181 10*3/uL Normal 150 - 450 [facility] Comment on above: Performed By: #### M G #### [address] [address] RBC 2.55 x10E12/L Low 4.00 - 5.20 [facility] Comment on above: Performed By: #### M G #### [address] [address] WBC (Bld) [#/Vol] 4.6 10*3/uL Normal 4.4 - 11.3 [facility] Comment on above: Performed By: #### M G #### [address] [address] Clinical Event Noteon 2022 Clinical Event Note Clinical Event: Clinical Event Note: Details Heart rate is 61. I will go ahead and hold the metoprolol 100 mg. Electronic Signatures: Amador Good) (Signed 19-Jan-2023 20:44) Authored: Clinical Event Note Last Updated: 19-Jan-2023 20:44 by Amador Good) [facility] Clinical Event Note Clinical [...] Last Updated: 19-Jan-2023 20:42 by Amador Good) [facility] Daily Progress Note-Medicine on [...] NEGATIVE: Mood Changes, Anxiety Subjective Data: ALMA MCPHERSON is a 82 year old Female who is Hospital Day # 3. Additional Information: Having back pain not so much in her sacral right hip area but around her kidney and liver area Having bowel movements and they are still black No other complaints Objective Data: Objective Information: T PRBPMAPSpO2 Value36.49549951/5492% Date/Time01/19 10: 10: 10: 10: 10:00 Range(36.2C [...] and plan for discharge Electronic Signatures: Shahid Colunga) (Signed 19-Jan-2023 13:15) Authored: Service, Review of Systems, Subjective Data, Objective Data, Assessment and Plan, Note Completion Last Updated: 19-Jan-2023 13:15 by Shahid Colunga () [facility] Preop Checkliston 01-19-2023 Preop Checklist Preop Checklist: Preop Checklist: Arrival [id number] Arrival Time14:28 Procedure Typeegd Temperature C37.2 degrees C Temperature F98.9 degrees F Heart Rate67 beats per minute Respiratory Rate16 breath per minute Blood Pressure Mzcsmvab706 mm/Hg Blood Pressure Zqzetdoxt59 mm/Hg NPOyes Last Food Cszazz41-Sbl-6438 15:06 Last Clear Fluid Uchbon60-Njo-6996 12:07 ID Band On Patientpatient ID (name) [...] Language / CommunicationEnglish Electronic Signatures: Kori Pereira (HAYDE) (Signed 19-Jan-2023 15:09) Authored: Preop Checklist Last Updated: 19-Jan-2023 15:09 by Kori Pereira (HAYDE) [facility] Surgical Pathology Depar tmenton 01-19-2023 [facility] Surgical Pathology Department Name ALMA MCPHERSON Pathologist: MARKOS BILLY MD Date of Procedure: 01/19/2023 Date Received: 01/21/2023 Date Reported 01/25/2023 Submitting Physician: OKSANA OCAMPO DO Location: [facility] Copy To/Referring/Attending: SHAHID COLUNGA DO Other External # FINAL DIAGNOSIS A. ANTRUM BX: ANTRAL MUCOSA WITH MILD NONSPECIFIC CHRONIC GASTRITIS, SEE NOTE. Note: No microorganisms are identified. Electronically Signed Out By MARKOS BILLY MD/MANPREET By the signature on this report, the individual or group listed as making the Final Interpretation/Diagnosis certifies that they have reviewed this case. Diagnostic interpretation performed at [facility] [address] [address] [facility] [address] Clinical History: Physician Contact Number: [phone] Fixative (A): Formalin Clinical Diagnosis History ALMA MCPHERSON is a 82 year old Female This [...] is submitted in toto in one cassette. [facility]/01/24/2023 [facility] Department of Pathology [id number] [place] [address] Normal [facility] Comment on above: Performed By: #### U [facility] #### [facility] Surgical Pathology Department [address] [place], [place] [id number] Upper GI endoscopyon 023 Upper GI endoscopy PATIENTNAME Patient Name: Alma Mcpherson EXAMDATE Procedure Date: 01/19/2023 3:06 PM PATIENTID PATIENTACCOUNTNUM PATIENTDOB Date of : 1940 ADMITTYPE Admit Type: Inpatient PATIENTROOM Site: [facility] ETHNICITY Ethnicity: Not or RACE Race: White PROVDR Attending MD: Oksana Ocampo DO, [phone] ENDOPROCEDURENAME Procedure: Upper GI endoscopy INDICATION Indications: Iron deficiency anemia secondary to chronic blood loss PRIMARYPROVIDER Providers: Oksana Ocampo DO (Doctor), Steve Islas RN (Nurse), Peg Mian, Flatbed Press Operator EDREFPROVIDER Referring: CURRENT_MEDS Medicines: Monitored Anesthesia Care [...] tolerated. CPT_CODES Procedure Code(s): --- Professional --- 14681, Esophagogastroduodenosco py, flexible, transoral; diagnostic, including collection of specimen(s) by brushing or washing, when performed (separate procedure) ICD_CODES Diagnosis Code(s): --- Professional --- D50.0, Iron deficiency anemia secondary to blood loss (chronic) CODINGSTMT CPT copyright 2020 [employer]. All rights reserved. The codes documented in this report are preliminary and upon security and compliance analyst review may be revised to meet current [...] 0 hours 3 minutes 38 seconds Normal [facility] BASIC METABOLIC PANELon 04- Anion gap [Moles/Vol] 7 mmol/L Low 10 - 20 [facility] Comment on above: Result Comment: Revi quinned previous results Performed By: #### M G #### [address] [address] Calcium [Mass/Vol] 7.5 mg/dL Low 8.6 - 10.3 [facility] Comment on above: Performed By: #### M G #### [address] [address] Chloride [Moles/Vol] 101 mmol/L Normal 98 - 107 [facility] Comment on above: Performed By: #### M G #### [address] [address] Creatinine [Mass/Vol] 0.49 mg/dL Low 0.50 - 1.05 [facility] Comment on above: Performed By: #### M G #### [address] [address] eGFR FEMALE >90 Normal >90 [facility] Comment on above: Result Comment: CALC ULATIONS OF ESTIMATED GFR ARE PERFORMED USING THE 2020 CKD-EPI STUDY REFIT EQUATION WITHOUT THE RACE VARIABLE FOR THE IDMS-TRACEABLE CREATININE METHODS. https://jasn.asnjournals.org/content//ASN.61362 [address] Performed By: #### M G #### [address] [address] Glucose [Mass/Vol] 83 mg/dL Normal 74 - 99 [facility] Comment on above: Performed By: #### M G #### [address] [address] HCO3 (Bld) [Moles/Vol] 32 mmol/L Normal 21 - 32 [facility] Comment on above: Performed By: #### M G #### [address] [address] Potassium [Moles/Vol] 3.1 mmol/L Low 3.5 - 5.3 [facility] Comment on above: Performed By: #### M G #### [address] [address] Sodium [Moles/Vol] 137 mmol/L Normal 136 - 145 [facility] Comment on above: Performed By: #### M G #### [address] [address] Urea nitrogen [Mass/Vol] 25 mg/dL High 6 - 23 [facility] Comment on above: Performed By: #### M G #### [address] [address] CBCon 01-18-2023 Erythrocyte distribution width (RBC) [Ratio] 16.1 % High 11.5 - 14.5 [facility] Comment on above: Performed By: #### T RP #### [address] [address] Hematocrit (Bld) [Volume fraction] 22.8 % Low 36.0 - 46.0 [facility] Comment on above: Performed By: #### T RP #### [address] [address] Hemoglobin (Bld) [Mass/Vol] 7.3 g/dL Low 12.0 - 16.0 [facility] Comment on above: Performed By: #### T RP #### [address] [address] MCHC (RBC) [Mass/Vol] 32.0 g/dL Normal 32.0 - 36.0 [facility] Comment on above: Performed By: #### T RP #### [address] [address] MCV (RBC) [Entitic vol] 94 fL Normal 80 - 100 [facility] Comment on above: Performed By: #### T RP #### [address] [address] Platelets (Bld) [#/Vol] 165 10*3/uL Normal 150 - 450 [facility] Comment on above: Performed By: #### T RPHS #### [address] [address] RBC 2.42 x10E12/L Low 4.00 - 5.20 [facility] Comment on above: Performed By: #### T [facility] #### [address] [address] WBC (Bld) [#/Vol] 6.4 10*3/uL Normal 4.4 - 11.3 [facility] Comment on above: Performed By: #### T [facility] #### [address] [address] Consult-Gastroenterologyon 0 01-18-2023 Consult-Gastroenterolo gy Service: Service: Gastroenterology Consult: Consult requested by (Attending Name): Shahid Colunga Reason: Melanotic stools; on Eliquis History of Present Illness: HPI: ALMA MCPHERSON is a 82 year old Female who presents to the ER yesterday evening with melanic stools. She had called my office Bebeto was advised to have CBC drawn unfortunately [...] acute spinal fracture and has been taking prsk-nkr-nrfvxqc NSAIDs, Mobic. She did see her family [...] her bedside. She is accompanied by her director of search engine marketing. She states she still having black stools [...] (Mild), Itching Objective: Objective Information: T PRBPMAPSpO2 Value36.66057600/6695% Date/Time01/18 7: 7: 7: 7: 7:30 Range(36.2C [...] laboratory results: Hemoglobin + Hematocrit Trending View Egzkzt53-Ubb-0987 09:56:00 17-Jan-2023 18:26:00 HCT23.3 L 24.6 L HGB7.3 L 7.9 L Complete Blood Count 18-Jan-2023 02:11:00 ResultValue White Blood Cell Count 6.4 Red Blood Cell Count 2.42 L HGB 7.3 L HCT 22.8 L MCV 94 MCHC 32.0 PLT 165 RDW-CV 16.1 H Complete Blood Count + Differential (more content not included)... [facility] Daily Progress Note-Medicine on 01-18-2023 Daily [...] NEGATIVE: Mood Changes, Anxiety Subjective Data: ALMA MCPHERSON is a 82 year old Female who is Hospital Day # 2. Additional Information: Doing well except feeling weak Pain tolerable in her sacral right hip area Objective Data: Objective Information: T PRBPMAPSpO2 Value36.45285453/6795% Date/Time01/18 15: 15: 15: 15: 15:05 Range(36.2C [...] laboratory results: Hemoglobin + Hematocrit [facility] Mddupo73-Dpa-7579 09:56:00 17-Jan-2023 18:26:00 HCT23.3 L 24.6 L [...] Updated: 18-Jan-2023 17:00 by Shahid Colunga () [facility] Discharge Planning Zhec9aa 0 01-18-2023 Discharge Planning Note2 Discharge Planning: Discharge Barriersnone Planned Dispositionhome Discharge DestinationHome with Patient/Tib[employer] Developer Stated GoalHome with we do quite well together [place] of Choice Explainedyes Anticipated Discharge [id number] Discharge Planning 01/18/23 0940 Care Transition Note: [...] SW met with Pt at bedside. Pt [facility] is 17 with RN. ADOD is 01/20, [...] Care Transitions to follow as needed. WANDA Dominguez Assessment: Discharge Planning Assessment [id number]-Mle-0537 Discharge Planning Assessment Completed byNy GRACE, RN/TCC Primary Contact Name and Numbertina [phone](1) Prior Level of FunctioningIndependent Lives Withspouse(1) Living Arrangementshouse(1) Stated Reason for Admissionanemia(1) Arrived Fromemergency department (1) PCPStencel [facility]/ Injury/ Need Assist with AmbulationDenies Equipment Currently Used at Homewheelchair; cane, quad/straight; grab bar DME Supplier Name/NumberNA Home Care Agency/Support ServicesNA Diabetic/Supplies NeededNA Hemodialysis ScheduleNA Other NeedsNA Resource/Environmental Concernsnone(1) Anticipated Transition [place](1) Services Anticipated at Transitionnone(1) Readmission Within the [...] es Home O2 SupplierNA Electronic Signatures: Taya Campos (SECURITY ASSOCIATE-S) (Signed 20-Jan-2023 14:46) Authored: Discharge Planning Marilyn Davalos (SALVADOR) (Signed 19-Jan-2023 14:17) Authored: Discharge Planning Ny Aguilar (RN) (Signed 18-Jan-2023 13:37) Authored: Discharge Planning, Assessment Last Updated: 20-Jan-2023 14:46 by Taya Campos (SECURITY ASSOCIATE-S) References: 1. Data Referenced From Patient Profile - Adult v2 17-Jan-2023 17:18 [facility] HGB + HCTon 01-18-2023 Hematocrit (Bld) [Volume fraction] 23.3 % Low 36.0 - 46.0 [facility] Comment on above: Performed By: #### M G #### [place] [address] Hemoglobin (Bld) [Mass/Vol] 7.3 g/dL Low 12.0 - 16.0 [facility] Comment on above: Performed By: #### M G #### [place] [address] HCT Canceled [facility] Comment on above: Order Comment: TEST HGB + HCT WAS CANCELLED, 01/18/2023 02:12 Did morning labs whichincluded CBC per Kathya LOCK. Performed By: #### M G #### [place] [address] HGB Canceled [facility] Comment on above: Order Comment: TEST HGB + HCT WAS CANCELLED, 01/18/2023 02:12 Did morning labs whichincluded CBC per Kathya LOCK. Performed By: #### M G #### [place] [id number] Admission Risk Screen - Adul ton 01-17-2023 Admission Risk Screen - Adult Allergies: Allergies: codeine: Other (Mild), Itching Patient Verification: New W ID Band Applied in my Departmentno Type of ID Patient is WearingW wristband, but not applied here Patient Transferred from Other Facility ([facility], [facility],etc)no Patient Identity Verified Bypatient ID Band [...] AlertFor Ebola-like Symptoms: Isolate Patient and Notify Provider/Linoleum Floor Layer For Contact: Notify Provider/Linoleum Floor Layer Advance Directive: Advance Directive/DNRno (2) Advance Directive [...] Learning Preferencesverbal instruction Cultural Considerationsnone Developmental Considerationsnone Synagogue Considerationsnone Learning Assessment (Other Learner): Other learner availableno Depression Screen: During the past month, have you often been bothered by feeling down, depressed or hopelessno During the past month, have you often had little interest or pleasure in doing thingsno Have you had any thoughts of harming anyone elseno (1) Sully Suicide: Risk Screen Not Applicable/Able to Answerable to be screened In the Past Month: Have you wished you were or could go to sleep and not wake upno(1) In the Past Month: Have you had any actual thoughts of killing yourself no(1) Lifetime: Have you ever done, started to do, or prepared to do anything to end your lifeno Sully Suicide Risknegative Adult Nutrition Screen: Have you [...] Spiritual Screen: Are there any cultural, spiritual, samaritan practices/values/needs that are important for us to knowno Do you [facility] a [facility] Is there any particular item/ help you need from Pastoral Careprayer / pastoral support Would you like your Pas (more content not included)... [facility] CBC AND DIFFERENTIALon 01-17 % AUTOMATED IMMATURE GRAN 0.3 % Normal 0.0 - 0.9 [facility] Comment on above: Result Comment: Torri ture Granulocyte Count (IG) includes promyelocytes, myelocytes and metamyelocytes but does not include bands. Percent differential counts (%) should be interpreted in the context of the absolute cell counts (cells/L). Performed By: #### T [facility] #### [address] [address] Basophils (Bld) [#/Vol] 0.04 10*3/uL Normal 0.00 - 0.10 [facility] Comment on above: Performed By: #### T RPHS #### [address] [address] Basophils/100 WBC (Bld) 0.6 % Normal 0.0 - 2.0 [facility] Comment on above: Performed By: #### T RPHS #### [address] [address] Eosinophils (Bld) [#/Vol] 0.02 10*3/uL Normal 0.00 - 0.40 [facility] Comment on above: Performed By: #### T RPHS #### [address] [address] Eosinophils/100 WBC (Bld) 0.3 % Normal 0.0 - 6.0 [facility] Comment on above: Performed By: #### T RPHS #### [address] [address] Erythrocyte distribution width (RBC) [Ratio] 15.9 % High 11.5 - 14.5 [facility] Comment on above: Performed By: #### T RPHS #### [address] [address] Hematocrit (Bld) [Volume fraction] 26.8 % Low 36.0 - 46.0 [facility] Comment on above: Performed By: #### T RPHS #### [address] [address] Hemoglobin (Bld) [Mass/Vol] 8.7 g/dL Low 12.0 - 16.0 [facility] Comment on above: Performed By: #### T RPHS #### [address] [address] Lymphocytes (Bld) [#/Vol] 1.42 10*3/uL Normal 0.80 - 3.00 [facility] Comment on above: Performed By: #### T RPHS #### [place] [id number] Lymphocytes/100 WBC (Bld) 22.9 % Normal 13.0 - 44.0 [facility] Comment on above: Performed By: #### T RPHS #### [address] [address] MCHC (RBC) [Mass/Vol] 32.5 g/dL Normal 32.0 - 36.0 [facility] Comment on above: Performed By: #### T RPHS #### [address] [address] MCV (RBC) [Entitic vol] 94 fL Normal 80 - 100 [facility] Comment on above: Performed By: #### T RPHS #### [address] [address] Monocytes (Bld) [#/Vol] 0.49 10*3/uL Normal 0.05 - 0.80 [facility] Comment on above: Performed By: #### T RPHS #### [address] [address] Monocytes/100 WBC (Bld) 7.9 % Normal 2.0 - 10.0 [facility] Comment on above: Performed By: #### T RPHS #### [address] [address] Neutrophils (Bld) [#/Vol] 4.21 10*3/uL Normal 1.60 - 5.50 [facility] Comment on above: Result Comment: Perc ent differential counts (%) should be interpreted in the context of the absolute cell counts (cells/L). Performed By: #### T RPHS #### [address] [address] Neutrophils/100 WBC (Bld) 68.0 % Normal 40.0 - 80.0 [facility] Comment on above: Performed By: #### T RPHS #### [address] [address] Platelets (Bld) [#/Vol] 202 10*3/uL Normal 150 - 450 [facility] Comment on above: Performed By: #### T RPHS #### [address] [address] RBC 2.86 x10E12/L Low 4.00 - 5.20 [facility] Comment on above: Performed By: #### T RPHS #### [address] [address] WBC (Bld) [#/Vol] 6.2 10*3/uL Normal 4.4 - 11.3 [facility] Comment on above: Performed By: #### T RPHS #### [address] [address] CHEST 1 VIEWon 01-17-2023 CHEST 1 VIEW Patient Name: ALMA MCPHERSON STUDY: CHEST 1 VIEW; 01/17/2023 12:10 pm INDICATION: weakness . COMPARISON: 07/27/2016 ACCESSION NUMBER(S): [id number] ORDERING CLINICIAN: ELY SALES FINDINGS: A single AP portable radiograph of the chest was obtained. Multiple cardiac monitoring leads are seen over the chest. No focal infiltrate, pleural effusion or pneumothorax is identified. The cardiac silhouette is within normal limits for size. IMPRESSION: No focal infiltrate or pneumothorax is identified. Electronically signed by: DENIZ TORO MD Normal [facility] COMPREHENSIVE PANELon 2022 Albumin [Mass/Vol] 3.3 g/dL Low 3.4 - 5.0 [facility] Comment on above: Performed By: #### T RP #### [address] [address] ALP [Catalytic activity/Vol] 150 U/L High 33 - 136 [facility] Comment on above: Performed By: #### T RPHS #### [address] [address] ALT [Catalytic activity/Vol] 7 U/L Normal 7 - 45 [facility] Comment on above: Result Comment: Cielo ents treated with Sulfasalazine may generate falsely decreased results for ALT. Performed By: #### T RP #### [address] [address] Anion gap [Moles/Vol] 9 mmol/L Low 10 - 20 [facility] Comment on above: Performed By: #### T RPHS #### [address] [address] AST [Catalytic activity/Vol] 24 U/L Normal 9 - 39 [facility] Comment on above: Performed By: #### T RPHS #### [address] [address] Bilirubin [Mass/Vol] 0.6 mg/dL Normal 0.0 - 1.2 [facility] Comment on above: Performed By: #### T RPHS #### [address] [address] Calcium [Mass/Vol] 7.9 mg/dL Low 8.6 - 10.3 [facility] Comment on above: Performed By: #### T RPHS #### [address] [address] Chloride [Moles/Vol] 97 mmol/L Low 98 - 107 [facility] Comment on above: Performed By: #### T RPHS #### [address] [address] Creatinine [Mass/Vol] 0.56 mg/dL Normal 0.50 - 1.05 [facility] Comment on above: Performed By: #### T RPHS #### [address] [address] eGFR FEMALE >90 Normal >90 [facility] Comment on above: Result Comment: CALC ULATIONS OF ESTIMATED GFR ARE PERFORMED USING THE 2020 CKD-EPI STUDY REFIT EQUATION WITHOUT THE RACE VARIABLE FOR THE IDMS-TRACEABLE CREATININE METHODS. https://jasn.asnjournals.org/content//ASN.56748 [address]398 Performed By: #### T RPHS #### [address] [address] Glucose [Mass/Vol] 88 mg/dL Normal 74 - 99 [facility] Comment on above: Performed By: #### T RPHS #### [address] [address] HCO3 (Bld) [Moles/Vol] 33 mmol/L High 21 - 32 [facility] Comment on above: Performed By: #### T RPHS #### [address] [address] Potassium [Moles/Vol] 3.3 mmol/L Low 3.5 - 5.3 [facility] Comment on above: Performed By: #### T RPHS #### [address] [address] Protein [Mass/Vol] 5.8 g/dL Low 6.4 - 8.2 [facility] Comment on above: Performed By: #### T RPHS #### [address] [address] Sodium [Moles/Vol] 136 mmol/L Normal 136 - 145 [facility] Comment on above: Performed By: #### T RPHS #### [place] [id number] Urea nitrogen [Mass/Vol] 32 mg/dL High 6 - 23 [facility] Comment on above: Performed By: #### T RPHS #### [address] [address] CORONAVIRUS 2019 BY PCRon Lab Specimen Source Nasal, Nasopharyngeal Normal [facility] Comment on above: Performed By: #### T RPHS #### [address] [address] SARS-CoV-2 (COVID-19) RNA SHENG+probe Ql (Unsp spec) Not detected Normal Not Detected [facility] Comment on above: Result Comment: . This test has received FDA Emergency Use Authorization (EUA) and has been verified by [facility]. This test is only authorized for the duration of time that circumstances exist to justify the authorization of the emergency use of in vitro diagnostic tests for the detection of SARS-CoV-2 virus and/or diagnosis of COVID-19 infection under section 564(b)(1) of the Act, 21 U.S.C. 360bbb-3(b)(1), unless the authorization is terminated or revoked sooner. [facility] is certified under CLIA-88 as qualified to perform high complexity testing. Testing is performed in the [facility] laboratory located at [address] [place] [address]. SARS-CoV-2/Flu/RSV Multiplex Test: Fact sheet for providers: https://www.fda.gov/media/360675/download Fact sheet for patients: https://www.fda.gov/media/501492/download Performed By: #### T [facility] #### [place] [address] CT ABDOMEN AND PELVIS W IV C ONTRASTon 01-17-2023 CT ABDOMEN AND PELVIS W IV CONTRAST Patient Name: ALMA MCPHERSON STUDY: CT ABDOMEN AND PELVIS W IV CONTRAST; 01/17/2023 1:03 pm INDICATION: gi bleed, diffuse pain . COMPARISON: CT abdomen pelvis dated 08/12/2022. ACCESSION NUMBER(S): [id number] ORDERING CLINICIAN: ELY SALES TECHNIQUE: CT of [...] outlet obstruction. (more content not included)... Normal [facility] Covid 19 Resultson 3 SARS-CoV-2 (COVID-19) [...] You may also be contacted by the [facility] to see if any of your close [...] or Naproxen (Aleve) can also be used. Mwjm-xzj-vggzaao cough and cold medicines can be used according to the instructions on the package. Some vjrz-luh-dbtcizs medicines also contain acetaminophen. Make sure you [...] water are not available, use alcohol-based hand waitress. Avoid touching your eyes, nose, and mouth [...] 24 sofi (more content not included)... Normal [facility] HCTon 01-17-2023 HCT Canceled Normal [facility] Comment on above: Order Comment: TEST HCT WAS CANCELLED, 01/17/2023 13:06 ordered in error. Performed By: #### H CT #### [place] [id number] HGB + HCTon 01-17-2023 Hematocrit (Bld) [Volume fraction] 24.6 % Low 36.0 - 46.0 [facility] Comment on above: Performed By: #### M G #### [address] [address] Hemoglobin (Bld) [Mass/Vol] 7.9 g/dL Low 12.0 - 16.0 [facility] Comment on above: Performed By: #### M G #### [address] [address] LEAD,VENOUSon 01-17-2023 LEAD,VENOUS Canceled Normal [facility] Comment on above: Order Comment: LOADING UNIT OPERATOR,VENOUS WAS CANCELLED, 01/17/2023 13:06 ordered in error. Result Comment: The performance characteristics of this test have been determined by [facility]. This test has not been approved by the FDA; however, the FDA has determined that such clearance is not necessary. This test is used for clinical purposes and should not be regarded as investigational or for research. This laboratory is certified under CLIA to perform high complexity clinical laboratory testing. Performed By: #### L EADV #### [facility] [address] [place], [place] [id number] MAGNESIUMon 01-17-2023 Magnesium [Mass/Vol] 1.70 mg/dL Normal 1.60 - 2.40 [facility] Comment on above: Performed By: #### M G #### [facility] [address] [place] [address] Order Reconciliationon 01-17 Order Reconciliation Page 1 Admission Reconciliation Document Reconciliation Type: ED to Observation requested on behalf of Shahid Colunga (Physician) done by Shahid Colunga (DO) ED to Observation - Reconciliation: 17-Jan-2023 17:57 by: Shahid Colunga (DO) ED to Observation - AutoLinked: 17-Jan-2023 17:57 by: Shahid Colnuga (DO) Home MedicationsEnteredLast Dose TakenReconciled with current Order Reconciliation Comment/ Additional Information Amitiza 8 mcg oral capsule 1 cap(s) orally 2 times a heo60-Dnb-183517-Jan-2023 AM Lubiprostone Capsule (AMITIZA)DOSE = 8 microgram(s) Oral 2 Times a DayAmitiza 8 mcg oral capsule continued as the inpatient order Lubiprostone aspirin 81 mg oral tablet 1 tab(s) orally once a ylk13-Kti-357392-Xje-298 3 AM Reviewed and Held atorvastatin 10 mg oral tablet 1 tab(s) orally once a ntr50-Lig-905717-Jan-2023 AM Atorvastatin Tablet (LIPITOR)DOSE = 10 mg Oral Daily atorvastatin 10 mg oral tablet continued as the inpatient order Atorvastatin Cartia XT 240 mg/24 hours oral capsule, extended release 1 cap(s) orally once a cyt30-Cth-719600-Akn-759 3 AM dilTIAZem (CARDIZEM CD) Extended Release (24 hour) Capsule, Extended ReleaseDOSE = 240 mg Oral Every 24 HoursCartia XT 240 mg/24 hours oral capsule, extended release continued as the inpatient order dilTIAZem (CARDIZEM CD) Extended Release (24 hour) Dexilant 60 mg oral delayed release capsule 1 cap(s) orally once a day [id number]-4631 AM Pantoprazole Enteric Coated Tablet (PROTONIX)DOSE = 40 mg Oral DailyNotes from Pharmacy: Substitution for Dexlansoprazole 60 mg Oral Capsule DailyDexilant 60 mg oral delayed release capsule continued as the inpatient order Pantoprazole Eliquis 5 mg oral tablet 1 tab(s) orally 2 times a add77-Hll-022520-Iyw-372 3 PM Reviewed and Held Fish Oil 1000 mg oral capsule 1 cap(s) orally once a bwm60-Mxb-147517-Jan-2023 AM Reviewed and Held fluocinolone 0.01% otic solution 5 drop(s) to each affected ear 2 times a day, As Lkacja40-Ugc-0946 Reviewed and Held furosemide 40 mg oral tablet 2 tab(s) orally once a nxp95-Ngx-563279-Eud-876 3 AM Furosemide TabletDOSE = 80 mg Oral Dailyfurosemide 40 mg oral tablet continued as the inpatient order Furosemide levothyroxine 50 mcg (0.05 mg) oral capsule 1 cap(s) orally once a day [id number]-Iwq-3863 AM Levothyroxine Tablet (SYNTHROID)DOSE = 50 microgram(s) Oral DailyClinician Notes: Enteral feedings are held 1 hour pre and post doselevothyroxine 50 mcg (0.05 mg) oral capsule continued as the inpatient order Levothyroxine Macrobid 100 mg oral capsule 1 cap(s) orally 2 times a day, As Needed 17-Jan-2023 Reviewed and Held MiraLax oral powder for reconstitution 17 gram(s) orally once a gen36-Fme-383617-Jan-2023 AM Reviewed and Held propafenone 150 mg oral tablet 1 tab(s) orally 2 times a wlf13-Atw-431217-Jan-2023 AM Propafenone Immediate Release Tablet (RYTHMOL)DOSE = 150 mg Oral 2 Times a Daypropafenone 150 mg oral tablet continued as the inpatient order Propafenone Immediate Release traMADol 50 mg oral tablet 1 tab(s) orally every 6 swhoe97-Qaj-046317-Jan-2023 Reviewed and Held Additional Current Orders Sodium Chloride 0.9% Infusion IV Bag Volume = 1,000 mL Run at: 500 mL/hr IntraVenous Normal [facility] Patient Profile - Adult v2on 01-17-2023 Patient Profile - Adult v2 Profile: Initial Info: How to be AddressedGrace(1) Spoken Language PreferredEnglish (1) Stated Reason for Admissionanemia Primary Contact Name and Numbertina [phone] Wants Family/Rep Notified of Admissionn/a; family present Notify PCPnotify PCP Informed of Patient Visiting Rightsyes [facility] Patient Belongingsremains with patient Patient Belongings Remaining with Patientcell phone/electronics; clothing Medications Brought to Hospitalno General Health: Weight in kg72.4 kilogram(s) Weight in nen357.6 pound(s) Weight Methodactual (measured) Scale Typebed Height [...] Risk Screen - Adult Emergency 17-Jan-2023 13:07 [facility] Provider Note - ED [...] Alert and oriented x4, GCS 15 , biodiesel production technician II-XII grossly intact. Sensation and motor function of extremities grossly intact. Psych: Appropriate mood and affect. I have reviewed and confirmed nurses/medics notes for patient past, social and family history. Portions of this note were dictated by speech recognition. An attempt at proof reading was made to minimize errors. Minor errors in maritime officer may be present. HISTORY OF PRESENTING ILLNESS [...] results: Troponin I, High Sensitivity Trending View Cmqnca56-Mqr-1121 13:05:00 17-Jan-2023 11:57:00 Troponin I, High Sensitivity5 [...] Count 0.04 (more content not included)... Normal [facility] Risk Screen - Adult Emergenc yon [...] instruction; written material Cultural Considerationsnone Developmental Considerationsnone Synagogue Considerationsnone Learning Assessment (Other Learner): Learning Assessment (Other Learner): Other learner availableno Pressure Injury/TB/Substance: Pressure Injury: Pressure Injury Present on Admissionno Do you have a coughno Smoking Statusnever smoker Alcohol Usedenies Drug Usedenies Admission Risk Screen: Significant IndicatorsComplete CAGE: CAGE: Is this an injured patient at a Trauma Center ([facility]/[place] /[place]): no Electronic Signatures: Jasmin Richardson (HAYDE) (Signed 17-Jan-2023 13:08) Authored: Preferred Language, Patient Preferred Pharmacy, Advanced Directives, Family Violence Adult, Learning Assessment (Patient), Learning Assessment (Other Learner), Pressure Injury/TB/Substance, Pressure Injury, CAGE Last Updated: 17-Jan-2023 13:08 by Jasmin Richardson (RN) Normal [facility] TROPONIN I, HIGH SENSITIVITY on 01-17-2023 TROPONIN I, HIGH SENSITIVITY 5 ng/L Normal 0 - 13 [facility] Comment on above: Result Comment: . [...] performed using a different testing methodology at [facility] than at other [facility]. Direct result comparisons should only be made within the same method. Performed By: #### T [facility] #### [address] [address] TROPONIN I, HIGH SENSITIVITY 5 ng/L Normal 0 - 13 [facility] Comment on above: Result Comment: . [...] performed using a different testing methodology at [facility] than at other [facility]. Direct result comparisons should only be made within the same method. Performed By: #### T [facility] #### [address] [address] Triage - EDon 01-17-2023 Triage - ED Quick Triage: The patient and/or guardian verbally acknowledges placement for services into the following (when Urgent Care Service hours are operating):emergency department Chart Review: ARRIVAL INFORMATION Mode of Arrival: ambulance Agency: City Agency Name: [facility] CHIEF COMPLAINT ALMA MCPHERSON is a Female patient with a chief [...] support. Weight: 154.3 pounds. Calculated 70.0 kg. [place] Coma Scale: Best Eye Response: (E4) spontaneous [...] Medical History, Active Electronic Signatures: Jasmin Richardson (RN) (Signed 17-Jan-2023 12:23) Entered: Risk Screens, Pain, Travel History, Chart Review, Scores, Past Medical History Authored: Quick Triage, Risk Screens, Pain, Travel History, Chart Review, Scores, Past Medical History Last Updated: 17-Jan-2023 12:23 by Jasmin Richardson (RN) [facility] URINALYSIS WITH CULTURE IF I NDICATEDon 01-17-2023 Appearance (U) Canceled [facility] Comment on above: Order Comment: TEST URINALYSIS WITH CULTURE IF INDICATED WAS CANCELLED, 01/17/2023 18:43 nsr. Performed By: #### B NP2 #### [place] [address] ASCORBIC ACID Canceled [facility] Comment on above: Order [...] hours. Performed By: #### B NP2 #### [address] [address] Bilirubin Ql (U) Canceled [facility] Comment on above: Order Comment: TEST URINALYSIS WITH CULTURE IF INDICATED WAS CANCELLED, 01/17/2023 18:43 nsr. Performed By: #### B NP2 #### [address] [address] Color (U) Canceled [facility] Comment on above: Order Comment: TEST URINALYSIS WITH CULTURE IF INDICATED WAS CANCELLED, 01/17/2023 18:43 nsr. Performed By: #### B NP2 #### [address] [address] Glucose Ql (U) Canceled [facility] Comment on above: Order Comment: TEST URINALYSIS WITH CULTURE IF INDICATED WAS CANCELLED, 01/17/2023 18:43 nsr. Performed By: #### B NP2 #### [address] [address] Hemoglobin Ql (U) Canceled [facility] Comment on above: Order Comment: TEST URINALYSIS WITH CULTURE IF INDICATED WAS CANCELLED, 01/17/2023 18:43 nsr. Performed By: #### B NP2 #### [address] [address] Ketones Ql (U) Canceled [facility] Comment on above: Order Comment: TEST URINALYSIS WITH CULTURE IF INDICATED WAS CANCELLED, 01/17/2023 18:43 nsr. Performed By: #### B NP2 #### [address] [address] Leukocyte esterase Test strip Ql (U) Canceled [facility] Comment on above: Order Comment: TEST URINALYSIS WITH CULTURE IF INDICATED WAS CANCELLED, 01/17/2023 18:43 nsr. Performed By: #### B NP2 #### [address] [address] Nitrite Ql (U) Canceled [facility] Comment on above: Order Comment: TEST URINALYSIS WITH CULTURE IF INDICATED WAS CANCELLED, 01/17/2023 18:43 nsr. Performed By: #### B NP2 #### [address] [address] pH Canceled Normal [facility] Comment on above: Order Comment: TEST URINALYSIS WITH CULTURE IF INDICATED WAS CANCELLED, 01/17/2023 18:43 nsr. Performed By: #### B NP2 #### [address] [address] Protein Ql (U) Canceled [facility] Comment on above: Order Comment: TEST URINALYSIS WITH CULTURE IF INDICATED WAS CANCELLED, 01/17/2023 18:43 nsr. Performed By: #### B NP2 #### [address] [address] Specific gravity (U) [Rel density] Canceled Normal [facility] Comment on above: Order Comment: TEST URINALYSIS WITH CULTURE IF INDICATED WAS CANCELLED, 01/17/2023 18:43 nsr. Performed By: #### B NP2 #### [address] [address] UROBILINOGEN Canceled [facility] Comment on above: Order Comment: TEST URINALYSIS WITH CULTURE IF INDICATED WAS CANCELLED, 01/17/2023 18:43 nsr. Performed By: #### B NP2 #### [address] [address] Established Visit (Pain Medi cine)on 01-06-2023 Established [...] fracture. She would like to see the [facility]. We will facilitate this referral. She is [...] Hypertension (40 (more content not included)... [facility] Communicationon 12-10 Therapy Communication Message ALMA MCPHERSON was (D/C)- last seen: 12/15/22. Pt self-discharged [...] Jan 06 2023 3:58PM EST (Author) [facility] MRI PELVIS W/O CONTRASTon MRI PELVIS W/O CONTRAST Patient Name: ALMA MCPHERSON STUDY: MRI of the sacrum/coccyx without contrast dated 01/04/2023. INDICATION: pain S32.10XA: Sacral fracture COMPARISON: None. Correlation is made with 12/31/2022 MRI of the lumbar spine ACCESSION NUMBER(S): [id number] ORDERING CLINICIAN: MARIA TERESA EPPERSON TECHNIQUE: Multiplanar [...] Electronically signed by: LEE HEALY MD Normal [facility] MRI Pelvis without Contrasto n 01-04-2023 MRA Pelvis vessels WO contrast Normal [facility] Work Phone: [phone] MRI L Spine without Contrast on 12-31-2022 MR Lumbar spine WO contrast Normal [facility] Work Phone: NR MRI L-SPINE WOon 01-01-20 23 NR MRI L-SPINE WO Patient Name: ALMA MCPHERSON STUDY: MRI L-SPINE WO; ; 12/31/2022 11:14 am INDICATION: lower back and right leg pain M43.06: Lumbar spondylolysis M54.16: Lumbar neuritis M43.10: Retrolisthesis. COMPARISON: CT abdomen and pelvis from 08/12/2022. ACCESSION NUMBER(S): [id number] ORDERING CLINICIAN: BURT CALHOUN TECHNIQUE: MRI of the lumbar spine was [...] mild bilateral neural foraminal narrowing. There is bcyb-rk-pssdeybk bilateral facet osteoarthropathy. At L2-L3, there is [...] with facet arthropathy causes moderate right and pwjh-go-vtimsdze left neural foraminal narrowing. At L4-L5, there [...] verify mes (more content not included)... Normal [facility] Initial Visit (Pain Medicine )on 12-29-2022 [...] or Bone Graft Simulator, Implanted Breast Tissue Bilingual Medical Assistant, Glucose Monitor, or Neulasta Device? : No Is the patient or breast feeding? : No What are the patient's signs and symptoms? : lower back and right leg pain Provider Impressions Patient is an 82-year-old female with a past medical history significant for lumbar spondylolisthesis, possible instability at L3-4, and lumbar neuritis. She has undergone intensive care medicine specialist with ultrasound treatments every week without improvement. [...] ultrasound treatment (more content not included)... [facility] Communicationon 12-09 Therapy Communication Message ALMA MCPHERSON canceled today . Patient cancelled today's appointment due to she is unable to walk. Signatures Electronically signed by : Cecilia Richardson PTA; Dec 29 2022 3:05PM EST (Author) Normal [facility] PT Progress Noteon 3 PT Progress Note Therapy Diagnosis Assessed Gait difficulty (781.2) (R26.9) Muscular deconditioning (781.99) (R29.898) Chronic bilateral low back pain without sciatica (724.2,338.29) (M54.50,G89.29) DDD (degenerative disc disease), 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) Plan Goals: Goals set and discussed today. By discharge ALMA MCPHERSON will achieve the following goals: Pt will [...] HEP toda (more content not included)... Normal [facility] Therapy Re-eval Noteon 12-15 Therapy Re-eval Note Therapy Diagnosis Assessed 1. Gait difficulty (781.2) (R26.9) 2. Muscular deconditioning (781.99) (R29.898) 3. Chronic bilateral low back pain without sciatica (724.2,338.29) (M54.50,G89.29) 4. DDD (degenerative disc disease), 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) Plan Goals: Goals set and discussed today. By discharge ALMA MCPHERSON will achieve the following goals: Pt will [...] set and discussed today. By discharge ALMA MCPHERSON will achieve the following goals: Pt will [...] code time is 38 minutes. Therapeutic exercise (56884): timed minutes 30, units 2 . Pt edu on HEP (more content not included)... [facility] Progress Noteon 3 PT Progress Note No report was sent [facility] Therapy Communicationon Therapy Communication Message ALMA MCPHERSON canceled today no reason given to this PT. Signatures Electronically signed by : Elina Diaz, PT; Dec 08 2022 5:17PM EST (Author) Normal [facility] PT Progress Noteon 3 PT Progress Note Therapy Diagnosis Assessed DDD (degenerative disc disease), 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) Gait difficulty (781.2) (R26.9) Muscular deconditioning (781.99) (R29.898) Chronic bilateral low back pain without sciatica (724.2,338.29) (M54.50,G89.29) Plan Goals: Goals set and discussed today. By discharge ALMA MCPHERSON will achieve the following goals: Pt will [...] code time is 45 minutes. Therapeutic exercise (31094): timed minutes 35, units 2 . Pt edu on HEP and symptom management x5' NuStep lv 1 BUE/BLE cues for T (more content not included)... Normal [facility] BASIC METABOLIC PANELon 11-11 Anion gap [Moles/Vol] 9 mmol/L Low 10 - 20 [facility] Comment on above: Performed By: #### B MP #### [address] [address] Calcium [Mass/Vol] 9.1 mg/dL Normal 8.6 - 10.3 [facility] Comment on above: Performed By: #### B MP #### [address] [address] Chloride [Moles/Vol] 101 mmol/L Normal 98 - 107 [facility] Comment on above: Performed By: #### B MP #### [address] [address] Creatinine [Mass/Vol] 0.59 mg/dL Normal 0.50 - 1.05 [facility] Comment on above: Performed By: #### B MP #### [address] [address] eGFR FEMALE >90 Normal >90 [facility] Comment on above: Result Comment: CALC ULATIONS OF ESTIMATED GFR ARE PERFORMED USING THE 2020 CKD-EPI STUDY REFIT EQUATION WITHOUT THE RACE VARIABLE FOR THE IDMS-TRACEABLE CREATININE METHODS. https://jasn.asnjournals.org/content/early/ASN.01193 22698 Performed By: #### B MP #### [address] [address] Glucose [Mass/Vol] 97 mg/dL Normal 74 - 99 [facility] Comment on above: Performed By: #### B MP #### [address] [address] HCO3 (Bld) [Moles/Vol] 33 mmol/L High 21 - 32 [facility] Comment on above: Performed By: #### B MP #### [address] [address] Potassium [Moles/Vol] 4.0 mmol/L Normal 3.5 - 5.3 [facility] Comment on above: Performed By: #### B MP #### [address] [place] [address] Sodium [Moles/Vol] 139 mmol/L Normal 136 - 145 [facility] Comment on above: Performed By: #### B MP #### [address] [place] [address] Urea nitrogen [Mass/Vol] 15 mg/dL Normal 6 - 23 [facility] Comment on above: Performed By: #### B MP #### [address] [place] [address] Laboratory - Chemistry and C hemistry - challengeon 12-03-2022 Anion gap [Moles/Vol] 9 mmol/L below low threshold 10 - 20 [facility] Work Phone: Calcium [Mass/Vol] 9.1 mg/dL 8.6 - 10.3 -[facility] Work Phone: Chloride [Moles/Vol] 101 mmol/L 98 - 107 [facility] [email or web address] Work Phone: CO2 [Moles/Vol] 33 mmol/L above high threshold 21 - 32 -[facility] Work Phone: Creatinine [Mass/Vol] 0.59 mg/dL See Below - [facility] Work Phone: Comment on above: Reference Range: 0.5 0 - 1.05 Glucose [Mass/Vol] 97 mg/dL 74 - 99 [facility] Work Phone: Potassium [Moles/Vol] 4.0 mmol/L 3.5 - 5.3 - [facility] Work Phone: Sodium [Moles/Vol] 139 mmol/L 136 - 145 -[facility] Work Phone: Urea nitrogen [Mass/Vol] 15 mg/dL 6 - 23 -[facility] Work Phone: No Panel Informationon 12-03 >90 >90 -[facility] Work Phone: Comment on above: CALCULATIONS OF JAI MATED GFR ARE PERFORMED USING THE 2020 CKD-EPI STUDY REFIT EQUATION WITHOUT THE RACE VARIABLE FOR THE IDMS-TRACEABLE CREATININE METHODS.https://jasn.asnjournals.org/content//A SN.9949534063 TSHon 12-03-2022 TSH Qn 0.84 m[IU]/L Normal 0.44 - 3.98 [facility] Comment on above: Result Comment: TSH testing is performed using different testing methodology at [facility] than at other [facility]. Direct result comparisons should only be made within the same method. Performed By: #### T SH2 #### [id number] [place] [address] TSH - Thyroid Stimulating Ho rmone, Serumon 12-03-2022 TSH Qn 0.84 m[IU]/L See Below -[employer] [facility] Work Phone: Comment on above: Reference Range: 0.4 4 - 3.98 TSH testing is performed using different testing methodology at [facility] than at other [facility]. Direct result comparisons should only be made within the same method. PT Progress Noteon 3 PT Progress Note Therapy Diagnosis Assessed DDD (degenerative disc disease), 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) Gait difficulty (781.2) (R26.9) Muscular deconditioning (781.99) (R29.898) Chronic bilateral low back pain without sciatica (724.2,338.29) (M54.50,G89.29) Plan Goals: Goals set and discussed today. By discharge [place] will achieve the following goals: Pt will [...] returned this date for first visit since [facility] due to having to cancel some sessions due to pain in cervical spine/shoulder as well as significant soreness from eval. Spent time reviewing pt edu on symptom management, activity modifications, and plan to ease into HEP given at [facility]. Spent most time on manual therapy [...] alternating h (more content not included)... Normal [facility] Therapy Communicationon 11-10 Therapy Communication Message ALMA BUITRAGOILLION canceled today . Patient cancelled today due to being ill. Signatures Electronically signed by : Cecilia Richardson PTA; Nov 22 2022 1:06PM EST (Author) Normal [facility] Office Visit (Primary Care T xt/Forms)on 11-18-2022 [...] Compensated hypothyroidism Basic Metabolic Panel; Status:Active; Requested for:18Nov2022; TSH - Thyroid Stimulating Hormone, Serum; Status:Active; Requested for:18Nov2022; Encounter for immunization Temporarily Stop: Influenza, seasonal, [...] Patient has active power of litigation attorney for health care (V49.89) (Z78.9) Current Meds [...] Nitrofurantoin Macrocryst (more content not included)... Normal [facility] Tobacco Screening.on 023 Fall risk assessment a) No falls within the last year [facility] Work Phone: Tobacco use status [facility]PHS b) No [facility] Work Phone: PT Initial Evaluationon PT Initial Evaluation Therapy Diagnosis Assessed Chronic bilateral low back pain without sciatica (724.2,338.29) (M54.50,G89.29) Muscular deconditioning (781.99) (R29.898) Gait difficulty (781.2) (R26.9) DDD (degenerative disc disease), 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) Plan of Care Goals: Goals set and discussed today. By discharge ALMA MCPHERSON will achieve the following goals: Pt will [...] and agreement by the patient. Assessment Ms. MCPHERSON presents with signs and symptoms consistent with [...] things. In (more content not included)... Normal [facility] OPIATE/OPIOID/BENZO EXTENDED PRESCRIPTION COMPLIANCEon 11-16-2022 OXYCODONE <25 Normal Cutoff <25 [facility] Comment on above: Performed By: #### D SBOP #### [facility] [address] [place] [address] BASIC METABOLIC PANELon Anion gap [Moles/Vol] 10 mmol/L Normal 10 - 20 [facility] Comment on above: Performed By: #### B MP #### [address] [address] Chloride [Moles/Vol] 102 mmol/L Normal 98 - 107 [facility] Comment on above: Performed By: #### B MP #### [address] [address] HCO3 (Bld) [Moles/Vol] 31 mmol/L Normal 21 - 32 [facility] Comment on above: Performed By: #### B MP #### [address] [address] Potassium [Moles/Vol] 3.7 mmol/L Normal 3.5 - 5.3 [facility] Comment on above: Performed By: #### B MP #### [address] [address] Sodium [Moles/Vol] 139 mmol/L Normal 136 - 145 [facility] Comment on above: Performed By: #### B MP #### [address] [address] Calcium [Mass/Vol] 8.9 mg/dL Normal 8.6 - 10.3 [facility] Comment on above: Performed By: #### B MP #### [address] [address] Creatinine [Mass/Vol] 0.61 mg/dL Normal 0.50 - 1.05 [facility] Comment on above: Performed By: #### B MP #### [address] [address] GFR/1.73 sq M.predicted among non-blacks MDRD (S/P/Bld) [Vol rate/Area] 90 mL/min/{1.73_m2} Normal >90 [facility] Comment on above: Result Comment: CALC ULATIONS OF ESTIMATED GFR ARE PERFORMED USING THE 2020 CKD-EPI STUDY REFIT EQUATION WITHOUT THE RACE VARIABLE FOR THE IDMS-TRACEABLE CREATININE METHODS. https://jasn.asnjournals.org/content/early/ASN.29817 [address] Performed By: #### B MP #### [address] [address] Glucose [Mass/Vol] 82 mg/dL Normal 74 - 99 [facility] Comment on above: Performed By: #### B MP #### [address] [address] Urea nitrogen [Mass/Vol] 16 mg/dL Normal 6 - 23 [facility] Comment on above: Performed By: #### B MP #### [address] [address] Laboratory - Chemistry and C hemistry - challengeon 11-12-2022 Anion gap [Moles/Vol] 10 mmol/L 10 - 20 - [facility] Work Phone: Calcium [Mass/Vol] 8.9 mg/dL 8.6 - 10.3 -[facility] Work Phone: Chloride [Moles/Vol] 102 mmol/L 98 - 107 [facility] Work Phone: CO2 [Moles/Vol] 31 mmol/L 21 - 32 -[facility] Work Phone: Creatinine [Mass/Vol] 0.61 mg/dL See Below - [facility] Work Phone: Comment on above: Reference Range: 0.5 0 - 1.05 Glucose [Mass/Vol] 82 mg/dL 74 - 99 [facility] [facility] Work Phone: Potassium [Moles/Vol] 3.7 mmol/L 3.5 - 5.3 [employer] [facility] Work Phone: Sodium [Moles/Vol] 139 mmol/L 136 - 145 [facility] Work Phone: Urea nitrogen [Mass/Vol] 16 mg/dL 6 - 23 [employer] [facility] Work Phone: [phone] No Panel Informationon 11-12 90 {mL/min/1.73m2} >90 [facility] Work Phone: Comment on above: CALCULATIONS OF JAI MATED GFR ARE PERFORMED USING THE 2020 CKD-EPI STUDY REFIT EQUATION WITHOUT THE RACE VARIABLE FOR THE IDMS-TRACEABLE CREATININE METHODS.https://jasn.asnjournals.org/content//A SN.3826199530 OPIATE/OPIOID/BENZO EXTENDED PRESCRIPTION COMPLIANCEon 11-11-2022 6-ACETYLMORPHINE <25 Normal Cutoff <25 [facility] Comment on above: Performed By: #### D SBOP #### [facility] [address] [place] [address] 7-AMINOCLONAZEPAM <25 Normal Cutoff <25 [facility] Comment on above: Performed By: #### D SBOP #### [facility] [address] [place] [address] ALPHA-HYDROXYALPRAZOLA M <25 Normal Cutoff <25 [facility] Comment on above: Performed By: #### D SBOP #### [facility] [address] [place] [address] ALPHA-HYDROXYMIDAZOLAM <25 Normal Cutoff <25 [facility] Comment on above: Performed By: #### D SBOP #### [facility] [address] [place] [address] ALPRAZOLAM <25 Normal Cutoff <25 [facility] Comment on above: Performed By: #### D SBOP #### [facility] [address] [place] [address] CHLORDIAZEPOXIDE <25 Normal Cutoff <25 [facility] Comment on above: Performed By: #### D SBOP #### [facility] [address] [place] [address] CLONAZEPAM <25 Normal Cutoff <25 [facility] Comment on above: Performed By: #### D SBOP #### [facility] [address] [place] [address] CODEINE <50 Normal Cutoff <50 [facility] Comment on above: Performed By: #### D SBOP #### [facility] [address] [place] [address] DIAZEPAM <25 Normal Cutoff <25 [facility] Comment on above: Performed By: #### D SBOP #### [facility] [address] [place] [address] EDDP,U <25 Normal Cutoff <25 [facility] Comment on above: Result Comment: The performance [...] Performed By: #### D SBOP #### [facility] [address] [place] [address] FENTANYL CONFIRM,U <2.5 Normal Cutoff<2.5 [facility] Comment on above: Performed By: #### D SBOP #### [facility] [address] [place] [address] HYDROCODONE <25 Normal Cutoff <25 [facility] Comment on above: Performed By: #### D SBOP #### [facility] [address] [place] [address] HYDROMORPHONE <25 Normal Cutoff <25 [facility] Comment on above: Performed By: #### D SBOP #### [facility] [address] [place] [address] LORAZEPAM <25 Normal Cutoff <25 [facility] Comment on above: Performed By: #### D SBOP #### [facility] [address] [place] [address] METHADONE,U <25 Normal Cutoff <25 [facility] Comment on above: Performed By: #### D SBOP #### [facility] [address] [place] [address] MIDAZOLAM <25 Normal Cutoff <25 [facility] Comment on above: Performed By: #### D SBOP #### [facility] [address] [place] [address] MORPHINE <50 Normal Cutoff <50 [facility] Comment on above: Performed By: #### D SBOP #### [facility] [address] [place] [address] NORDIAZEPAM <25 Normal Cutoff <25 [facility] Comment on above: Performed By: #### D SBOP #### [facility] [address] [place] [address] NORFENTANYL CONFIRM,U <2.5 Normal Cutoff<2.5 [facility] Comment on above: Result Comment: The performance [...] Performed By: #### D SBOP #### [facility] [address] [place] [address] NORHYDROCODONE <25 Normal Cutoff <25 [facility] Comment on above: Performed By: #### D SBOP #### [facility] [address] [place] [address] NOROXYCODONE <25 Normal Cutoff <25 [facility] Comment on above: Performed By: #### D SBOP #### [facility] [address] [place] [address] O-DESMETHYLTRAMADOL,U >1000 Abnormal Cutoff <50 [facility] Comment on above: Result Comment: Tram adol [...] testing. Performed By: #### D SBOP #### [facility] [address] [place] [address] OXAZEPAM <25 Normal Cutoff <25 [facility] Comment on above: Performed By: #### D SBOP #### [facility] [address] [place] [address] OXYMORPHONE <25 Normal Cutoff <25 [facility] Comment on above: Result Comment: The performance [...] testing. Performed By: #### D SBOP #### [facility] [address] [place] [address] TEMAZEPAM <25 Normal Cutoff <25 [facility] Comment on above: Result Comment: The performance [...] testing. Performed By: #### D SBOP #### [facility] [address] [place] [address] TRAMADOL CONFIRM,U >1000 Abnormal Cutoff <50 [facility] Comment on above: Result Comment: Cons istent with use of a drug containing tramadol, such as Ultram. Performed By: #### D SBOP #### [facility] [address] [place] [address] ZOLPIDEM METABOLITE[ZCA] ,U <25 Normal Cutoff <25 [facility] Comment on above: Result Comment: The performance [...] testing. Performed By: #### D SBOP #### [facility] [address] [place] [address] ZOLPIDEM,URINE <25 Normal Cutoff <25 [facility] Comment on above: Performed By: #### D SBOP #### [facility] [address] [place] [id number] PT Initial Evaluationon 10-12 PT Initial Evaluation No report was sent Normal [facility] Therapy Communicationon 10-12 Therapy Communication Message [place] canceled today 11/08/22. Pt cancel eval d/t appt conflict. Signatures Electronically signed by : Larisa Walker PT; Nov 08 2022 1:12PM EST (Author) Normal [facility] OPIATE/OPIOID/BENZO EXTENDED PRESCRIPTION COMPLIANCEon 11-05-2022 AMPHETAMINE SCREEN,U Negative Normal NEGATIVE [facility] Comment on above: Result Comment: CUTO FF LEVEL: 500 NG/ML Cross-reactivity has been reported with high concentrations of the following drugs: buproprion, chloroquine, chlorpromazine, ephedrine, mephentermine, fenfluramine, phentermine, phenylpropanolamine, pseudoephedrine, and propranolol. Performed By: #### D SBOP #### [facility] [address] [place] [address] BARBITURATES SCREEN,U Negative Normal NEGATIVE [facility] Comment on above: Result Comment: CUTO FF LEVEL: 200 NG/ML Performed By: #### D SBOP #### [facility] [address] [place] [address] CANNABINOIDS SCREEN,U Negative Normal NEGATIVE [facility] Comment on above: Result Comment: CUTO FF LEVEL: 50 NG/ML Performed By: #### D SBOP #### [facility] [address] [place] [id number] COCAINE METABOLITE SCREEN,U Negative Normal NEGATIVE [facility] Comment on above: Result Comment: CUTO FF LEVEL: 150 NG/ML Performed By: #### D SBOP #### [facility] [address] [place] [address] Creatinine [Mass/Vol] 69.2 mg/dL Normal [facility] Comment on above: Result Comment: A ur ine creatinine result >= 20 mg/dL is considered valid without suspicion of dilution. Samples with results below this range will automatically reflex to specific gravity testing to verify specimen integrity. Performed By: #### D SBOP #### [facility] [address] [place] [address] DRUG SCREEN COMMENT. SEE BELOW Normal [facility] Comment on above: Result Comment: Drug [...] directors. Performed By: #### D SBOP #### [facility] [address] [place] [address] PCP SCREEN,U Negative Normal NEGATIVE [facility] Comment on above: Result Comment: CUTO FF LEVEL: 25 NG/ML Cross-reactivity has been reported with dextromethorphan. Performed By: #### D SBOP #### [facility] [address] [place] [address] Laboratory - Chemistry and C hemistry - challengeon 11-04-2022 Creatinine (Body fld) [Mass/Vol] 69.2 mg/dL [facility] Work Phone: [phone] Comment on above: A urine creatinine r esult >= 20 mg/dL is considered valid without suspicion of dilution. Samples with results below this range will automatically reflex to specific gravity testing to verify specimen integrity. Laboratory - Drug toxicology on 11-04-2022 1-Hydroxymidazolam Confirm (U) [Mass/Vol] <25 Cutoff <25 [facility] Work Phone: 1-Jsbxbeydxu-8,5-Dimet hyl-3,3-Diphenylpyrrol idine (EDDP) Confirm (U) [Mass/Vol] <25 Cutoff <25 [facility] Work Phone: Comment on above: The performance [...] (6-TRA) Confirm (U) [Mass/Vol] <25 Cutoff <25 [facility] Work Phone: [phone] 7-Aminoclonazepam Confirm (U) [Mass/Vol] <25 Cutoff <25 [facility] Work Phone: Alpha hydroxyalprazolam Confirm (U) [Mass/Vol] <25 Cutoff <25 [facility] Work Phone: ALPRAZolam Confirm (U) [Mass/Vol] <25 Cutoff <25 [facility] Work Phone: Amphetamines Screen Ql (U) Negative NEGATIVE [facility] Work Phone: [phone] Comment on above: CUTOFF LEVEL: 500 NG /ML Cross-reactivity has been reported with high concentrations of the following drugs: buproprion, chloroquine, chlorpromazine, ephedrine, mephentermine, fenfluramine, phentermine, phenylpropanolamine, pseudoephedrine, and propranolol. Barbiturates Screen Ql (U) Negative NEGATIVE [facility] Work Phone: [phone] Comment on above: CUTOFF LEVEL: 200 NG /ML Benzoylecgonine Screen Ql (U) Negative NEGATIVE [facility] Work Phone: [phone] Comment on above: CUTOFF LEVEL: 150 NG /ML Cannabinoids Screen Ql (U) Negative NEGATIVE [facility] Work Phone: [phone] Comment on above: CUTOFF LEVEL: 50 NG/ ML chlordiazePOXIDE Confirm (U) [Mass/Vol] <25 Cutoff <25 [facility] Work Phone: clonazePAM Confirm (U) [Mass/Vol] <25 Cutoff <25 [facility] Work Phone: Codeine Confirm (U) [Mass/Vol] <50 Cutoff <50 [facility] Work Phone: diazePAM Confirm (U) [Mass/Vol] <25 Cutoff <25 [facility] Work Phone: fentaNYL Confirm (U) [Mass/Vol] <2.5 Cutoff<2.5 [facility] Work Phone: HYDROcodone Confirm (U) [Mass/Vol] <25 Cutoff <25 [facility] Work Phone: HYDROmorphone Confirm (U) [Mass/Vol] <25 Cutoff <25 [facility] Work Phone: LORazepam Confirm (U) [Mass/Vol] <25 Cutoff <25 [facility] Work Phone: Methadone Confirm (U) [Mass/Vol] <25 Cutoff <25 [facility] Work Phone: Midazolam Confirm (U) [Mass/Vol] <25 Cutoff <25 [facility] Work Phone: Morphine Confirm (U) [Mass/Vol] <50 Cutoff <50 [facility] Work Phone: Nordiazepam Confirm (U) [Mass/Vol] <25 Cutoff <25 [facility] Work Phone: Norfentanyl Confirm (U) [Mass/Vol] <2.5 Cutoff<2.5 [facility] Work Phone: Comment on above: The performance [...] Norhydrocodone Confirm (U) [Mass/Vol] <25 Cutoff <25 [facility] Work Phone: Noroxycodone Confirm (U) [Mass/Vol] <25 Cutoff <25 [facility] Work Phone: Nortramadol (U) [Mass/Vol] >1000 Abnormal Cutoff <50 [facility] Work Phone: Comment on above: Tramadol metabolite; [...] Oxazepam Confirm (U) [Mass/Vol] <25 Cutoff <25 [facility] Work Phone: oxyCODONE Confirm (U) [Mass/Vol] <25 Cutoff <25 [facility] Work Phone: oxyMORphone Confirm (U) [Mass/Vol] <25 Cutoff <25 -[facility] Work Phone: Comment on above: The performance [...] laboratory testing. Phencyclidine Ql (U) Negative NEGATIVE [facility] Work Phone: Comment on above: CUTOFF LEVEL: 25 NG/ ML Cross-reactivity has been reported with dextromethorphan. Temazepam Confirm (U) [Mass/Vol] <25 Cutoff <25 -[facility] Work Phone: Comment on above: The performance [...] Confirm (U) [Mass/Vol] >1000 Abnormal Cutoff <50 -[facility] Work Phone: Comment on above: Consistent with use of a drug containing tramadol, such as Ultram. Zolpidem (U) [Mass/Vol] <25 Cutoff <25 -[facility] Work Phone: No Panel Informationon 11-04 SEE BELOW -[facility] Work Phone: Comment on above: Drug screen [...] the laboratory medical directors. <25 Cutoff <25 [facility] Work Phone: Comment on above: The performance [...] unspecified type Basic Metabolic Panel; Status:Active; Requested for:[id number]; Health Maintenance Renew: Dexlansoprazole 60 MG Oral [...] cont on pradaxa. is on propafenone. sees jony in january. Encouraged to report breakthrough episode pain meds for low back, and asks to refer to gayatri at [facility]. I have personally reviewed the OARRS report [...] artery disea (more content not included)... Normal [employer] Tobacco Screening.on 023 Adult depression screening assessment No [facility] Work Phone: Fall risk assessment a) No falls within the last year [facility] Work Phone: Tobacco use status CPHS b) No [facility] Work Phone: APTTon 09-09-2022 aPTT Coag (Bld) [Time] 44 s High 26 - 39 [facility] Comment on above: Result Comment: THE APTT IS NO LONGER USED FOR MONITORING UNFRACTIONATED HEPARIN THERAPY. FOR MONITORING HEPARIN THERAPY, USE THE HEPARIN ASSAY. Performed By: #### M G #### [address] [address] Activated Partial Thrombopla stin Timeon 09-09-2022 aPTT Coag (PPP) [Time] 44 s above hig h threshold 26 - 39 [facility] Work Phone: Comment on above: THE APTT IS NO LONGE R USED FOR MONITORING UNFRACTIONATED HEPARIN THERAPY. FOR MONITORING HEPARIN THERAPY, USE THE HEPARIN ASSAY. BNPon 09-09-2022 Natriuretic peptide B (Bld) [Mass/Vol] 38 pg/mL Normal 0 - 99 [facility] Comment on above: Result Comment: . <1 00 pg/mL - Heart failure unlikely 100-299 pg/mL - Intermediate probability of acute heart . failure exacerbation. Correlate with clinical . context and patient history. >=300 pg/mL - Heart Failure likely. Correlate with clinical . context and patient history. BNP testing is performed using different testing methodology at [facility] than at other [facility]. Direct result comparisons should only be made within the same method. Performed By: #### B NP2 #### [address] [address] CBC AND DIFFERENTIALon 09-09 % AUTOMATED IMMATURE GRAN 0.2 % Normal 0.0 - 0.9 [facility] Comment on above: Result Comment: Torri ture Granulocyte Count (IG) includes promyelocytes, myelocytes and metamyelocytes but does not include bands. Percent differential counts (%) should be interpreted in the context of the absolute cell counts (cells/L). Performed By: #### T RP #### [address] [address] Basophils (Bld) [#/Vol] 0.03 10*3/uL Normal 0.00 - 0.10 [facility] Comment on above: Performed By: #### T RPHS #### [address] [address] Basophils/100 WBC (Bld) 0.7 % Normal 0.0 - 2.0 [facility] Comment on above: Performed By: #### T RPHS #### [address] [address] Eosinophils (Bld) [#/Vol] 0.05 10*3/uL Normal 0.00 - 0.40 [facility] Comment on above: Performed By: #### T RPHS #### [address] [address] Eosinophils/100 WBC (Bld) 1.2 % Normal 0.0 - 6.0 [facility] Comment on above: Performed By: #### T RPHS #### [address] [address] Erythrocyte distribution width (RBC) [Ratio] 14.5 % Normal 11.5 - 14.5 [facility] Comment on above: Performed By: #### T RPHS #### [address] [address] Hematocrit (Bld) [Volume fraction] 41.7 % Normal 36.0 - 46.0 [facility] Comment on above: Performed By: #### T RPHS #### [address] [address] Hemoglobin (Bld) [Mass/Vol] 13.6 g/dL Normal 12.0 - 16.0 [facility] Comment on above: Performed By: #### T RPHS #### [address] [address] Lymphocytes (Bld) [#/Vol] 1.33 10*3/uL Normal 0.80 - 3.00 [facility] Comment on above: Performed By: #### T RP #### [address] [address] Lymphocytes/100 WBC (Bld) 32.1 % Normal 13.0 - 44.0 [facility] Comment on above: Performed By: #### T RP #### [address] [address] MCHC (RBC) [Mass/Vol] 32.6 g/dL Normal 32.0 - 36.0 [facility] Comment on above: Performed By: #### T RP #### [address] [address] MCV (RBC) [Entitic vol] 98 fL Normal 80 - 100 [facility] Comment on above: Performed By: #### T RP #### [address] [address] Monocytes (Bld) [#/Vol] 0.37 10*3/uL Normal 0.05 - 0.80 [facility] Comment on above: Performed By: #### T RP #### [address] [address] Monocytes/100 WBC (Bld) 8.9 % Normal 2.0 - 10.0 [facility] Comment on above: Performed By: #### T RP #### [address] [address] Neutrophils (Bld) [#/Vol] 2.35 10*3/uL Normal 1.60 - 5.50 [facility] Comment on above: Result Comment: Perc ent differential counts (%) should be interpreted in the context of the absolute cell counts (cells/L). Performed By: #### T RP #### [address] [address] Neutrophils/100 WBC (Bld) 56.9 % Normal 40.0 - 80.0 [facility] Comment on above: Performed By: #### T RP #### [address] [address] Platelets (Bld) [#/Vol] 150 10*3/uL Normal 150 - 450 [facility] Comment on above: Performed By: #### T RPHS #### [address] [address] RBC 4.25 x10E12/L Normal 4.00 - 5.20 [facility] Comment on above: Performed By: #### T RPHS #### [address] [address] WBC (Bld) [#/Vol] 4.1 10*3/uL Low 4.4 - 11.3 [facility] Comment on above: Performed By: #### T RP #### [place] [id number] COMPREHENSIVE PANELon 2021 Albumin [Mass/Vol] 3.6 g/dL Normal 3.4 - 5.0 [facility] Comment on above: Performed By: #### B NP2 #### [address] [address] ALP [Catalytic activity/Vol] 151 U/L High 33 - 136 [facility] Comment on above: Performed By: #### B NP2 #### [address] [address] ALT [Catalytic activity/Vol] 15 U/L Normal 7 - 45 [facility] Comment on above: Result Comment: Cielo ents treated with Sulfasalazine may generate falsely decreased results for ALT. Performed By: #### B NP2 #### [address] [address] Anion gap [Moles/Vol] 11 mmol/L Normal 10 - 20 [facility] Comment on above: Performed By: #### B NP2 #### [address] [address] AST [Catalytic activity/Vol] 34 U/L Normal 9 - 39 [facility] Comment on above: Performed By: #### B NP2 #### [address] [address] Bilirubin [Mass/Vol] 0.8 mg/dL Normal 0.0 - 1.2 [facility] Comment on above: Performed By: #### B NP2 #### [address] [address] Calcium [Mass/Vol] 8.8 mg/dL Normal 8.6 - 10.3 [facility] Comment on above: Performed By: #### B NP2 #### [address] [address] Chloride [Moles/Vol] 105 mmol/L Normal 98 - 107 [facility] Comment on above: Performed By: #### B NP2 #### [address] [address] Creatinine [Mass/Vol] 0.65 mg/dL Normal 0.50 - 1.05 [facility] Comment on above: Performed By: #### B NP2 #### [address] [address] GFR/1.73 sq M.predicted among non-blacks MDRD (S/P/Bld) [Vol rate/Area] 89 mL/min/{1.73_m2} Normal >90 [facility] Comment on above: Result Comment: CALC ULATIONS OF ESTIMATED GFR ARE PERFORMED USING THE 2020 CKD-EPI STUDY REFIT EQUATION WITHOUT THE RACE VARIABLE FOR THE IDMS-TRACEABLE CREATININE METHODS. https://jasn.asnjournals.org/content/early//ASN.38452 [address]67 Performed By: #### B NP2 #### [address] [address] Glucose [Mass/Vol] 82 mg/dL Normal 74 - 99 [facility] Comment on above: Performed By: #### B NP2 #### [address] [address] HCO3 (Bld) [Moles/Vol] 27 mmol/L Normal 21 - 32 [facility] Comment on above: Performed By: #### B NP2 #### [address] [address] Potassium [Moles/Vol] 3.8 mmol/L Normal 3.5 - 5.3 [facility] Comment on above: Performed By: #### B NP2 #### [address] [address] Protein [Mass/Vol] 6.5 g/dL Normal 6.4 - 8.2 [facility] Comment on above: Performed By: #### B NP2 #### [address] [address] Sodium [Moles/Vol] 139 mmol/L Normal 136 - 145 [facility] Comment on above: Performed By: #### B NP2 #### [address] [address] Urea nitrogen [Mass/Vol] 16 mg/dL Normal 6 - 23 [facility] Comment on above: Performed By: #### B NP2 #### [address] [address] [address] ANGIO CHEST FOR PEon 12-0 CT ANGIO CHEST FOR PE Patient Name: ALMA MCPHERSON STUDY: CT ANGIO CHEST FOR PE; 09/09/2022 1:11 pm INDICATION: let pleuritic rib pain . COMPARISON: CT abdomen/pelvis of 08/12/2022. CT chest of 07/20/2016. ACCESSION NUMBER(S): [id number] ORDERING CLINICIAN: XIN PEREIRA TECHNIQUE: Helical data [...] Cirrhosis. Electronically signed by: DADA ODOM MD [facility] Complete Blood Count + Diffe boyd 09-09-2022 Basophils/100 WBC (Bld) 0.7 % 0.0 - 2.0 [facility] Work Phone: [phone] Erythrocyte distribution width (RBC) [Ratio] 14.5 % See Below [facility] Work Phone: [phone] Comment on above: Reference Range: 11. 5 - 14.5 Hematocrit (Bld) [Volume fraction] 41.7 % See Below [facility] Work Phone: [phone] Comment on above: Reference Range: 36. 0 - 46.0 Hemoglobin (Bld) [Mass/Vol] 13.6 g/dL See Below [facility] Work Phone: [phone] Comment on above: Reference Range: 12. 0 - 16.0 Lymphocytes/100 WBC (Bld) 32.1 % See Below [facility] Work Phone: [phone] Comment on above: Reference Range: 13. 0 - 44.0 MCHC (RBC) [Mass/Vol] 32.6 g/dL See Below [facility] [employer] [facility] Work Phone: [phone] Comment on above: Reference Range: 32. 0 - 36.0 MCV (RBC) [Entitic vol] 98 fL 80 - 100 [employer] [facility] Work Phone: Monocytes/100 WBC (Bld) 8.9 % 2.0 - 10.0 [facility] Work Phone: Neutrophils/100 WBC (Bld) 56.9 % See Below [facility] Work Phone: [phone] Comment on above: Reference Range: 40. 0 - 80.0 Platelets (Bld) [#/Vol] 150 10*3/uL 150 - 450 [facility] Work Phone: RBC (Bld) [#/Vol] 4.25 {x10E12/L} See Below [facility] Work Phone: [phone] Comment on above: Reference Range: 4.0 0 - 5.20 WBC (Bld) [#/Vol] 4.1 10*3/uL below low threshold 4.4 - 11.3 [facility] Work Phone: Complete Blood Count + Differential 0.03 {x10E9/L} See Below [facility] Work Phone: [phone] Comment on above: Reference Range: 0.0 0 - 0.10 Complete Blood Count + Differential 0.05 {x10E9/L} See Below [facility] Work Phone: Comment on above: Reference Range: 0.0 0 - 0.40 Complete Blood Count + Differential 0.37 {x10E9/L} See Below [facility] Work Phone: [phone] Comment on above: Reference Range: 0.0 5 - 0.80 Complete Blood Count + Differential 1.33 {x10E9/L} See Below [facility] Work Phone: [phone] Comment on above: Reference Range: 0.8 0 - 3.00 Complete Blood Count + Differential 2.35 {x10E9/L} See Below [facility] Work Phone: [phone] Comment on above: Reference Range: 1.6 0 - 5.50 Percent differential counts (%) should be interpreted in the context of the absolute cell counts (cells/L). Complete Blood Count + Differential 1.2 % 0.0 - 6.0 [facility] Work Phone: Complete Blood Count + Differential 0.2 % 0.0 - 0.9 [facility] Work Phone: Comment on above: Immature Granulocyte Count (IG) [...] You may also be contacted by the [facility] to see if any of your close [...] or Naproxen (Aleve) can also be used. Pxig-xgs-hrxrhhv cough and cold medicines can be used according to the instructions on the package. Some yset-hom-cgnvrvq medicines also contain acetaminophen. Make sure you [...] water are not available, use alcohol-based hand waitress. Avoid touching your eyes, nose, and mouth [...] 24 sofi (more content not included)... Normal [facility] D-DIMER, VTE EXCLUSIONon D-DIMER, VTE EXCLUSION 787 ng/mL FEU Abnormal < or = 500 [facility] Comment on above: Result Comment: The [...] exclusion.) Performed By: #### D IMEX #### [place] [id number] [place] [address] INFLUENZA A/B, COVID 2019 PC R,SYMPTOMATICon 09-09-2022 INFLUENZA A, PCR Not detected Normal Not Detected [facility] Comment on above: Result Comment: Resp iratory virus testing is performed routinely by PCR for Influenza A/B and RSV. Not Detected results do not preclude Influenza A/B or RSV infections since the adequacy of sample collection or low viral burden may impact the clinical sensitivity of this test method. Performed By: #### C OINP #### [place] [address] INFLUENZA B, PCR Not detected Normal Not Detected [facility] Comment on above: Result Comment: Resp iratory virus testing is performed routinely by PCR for Influenza A/B and RSV. Not Detected results do not preclude Influenza A/B or RSV infections since the adequacy of sample collection or low viral burden may impact the clinical sensitivity of this test method. Performed By: #### C OINP #### [place] [address] SARS-CoV-2 (COVID-19) RNA SHENG+probe Ql (Unsp spec) Not detected Normal Not Detected [facility] Comment on above: Result Comment: . This test has received [facility] Emergency Use Authorization (EUA) and has been verified by [facility]. This test is only authorized for the duration of time that circumstances exist to justify the authorization of the emergency use of in vitro diagnostic tests for the detection of SARS-CoV-2 virus and/or diagnosis of COVID-19 infection under section 564(b)(1) of the Act, 21 U.S.C. 360bbb-3(b)(1), unless the authorization is terminated or revoked sooner. [facility] is certified under CLIA-88 as qualified to perform high complexity testing. Testing is performed in the [facility] laboratory located at [address] [place] [address]. SARS-CoV-2/Flu/RSV Multiplex Test: Fact sheet for providers: https://www.fda.gov/media/549649/download Fact sheet for patients: https://www.fda.gov/media/490060/download Performed By: #### C OINP #### [place] [address] Lab Specimen Source Nasal, Nasopharyngeal Normal [facility] Comment on above: Performed By: #### C OINP #### [place] [address] INFLUENZA A/B, COVID 2019 PCR,SYMPTOMATIC Not detected See Below -[facility] Work Phone: Comment on above: Reference Range: Not Detected.This test has received FDA Emergency Use Authorization (EUA) and has been verified by [facility]. This test is only authorized for the duration of time that circumstances exist to justify the authorization of the emergency use of in vitro diagnostic tests for the detection of SARS-CoV-2 virus and/or diagnosis of COVID-19 infection under section 564(b)(1) of the Act, 21 U.S.C. 360bbb-3(b)(1), unless the authorization is terminated or revoked sooner. [facility] is certified under CLIA-88 as qualified to perform high complexity testing. Testing is performed in the [facility] laboratory located at [address] [place] [address].SARS-CoV-2/Flu/RSV Multiplex Test: Fact sheet for providers: https://www.fda.gov/media/317474/downloadFact sheet for patients: https://www.fda.gov/media/226356/download Reference Range: Not Detected Respiratory virus testing [...] dye [Mass/Vol] 3.6 g/dL 3.4 - 5.0 [facility] [facility] Work Phone: [phone] ALP [Catalytic activity/Vol] 151 U/L above high threshold 33 - 136 [facility] [facility] Work Phone: ALT With P-5'-P [Catalytic activity/Vol] 15 U/L 7 - 45 [facility] [facility] Work Phone: Comment on above: Patients treated wit h Sulfasalazine may generate falsely decreased results for ALT. Anion gap [Moles/Vol] 11 mmol/L 10 - 20 [facility] Work Phone: AST With P-5'-P [Catalytic activity/Vol] 34 U/L 9 - 39 [facility] Work Phone: [phone] Bilirubin [Mass/Vol] 0.8 mg/dL 0.0 - 1.2 - [facility] Work Phone: Calcium [Mass/Vol] 8.8 mg/dL 8.6 - 10.3 [facility] Work Phone: [phone] Chloride [Moles/Vol] 105 mmol/L 98 - 107 - [facility] Work Phone: CO2 [Moles/Vol] 27 mmol/L 21 - 32 [facility] Work Phone: [phone] Creatinine [Mass/Vol] 0.65 mg/dL See Below [facility] Work Phone: [phone] Comment on above: Reference Range: 0.5 0 - 1.05 Glucose [Mass/Vol] 82 mg/dL 74 - 99 [facility] Work Phone: [phone] Potassium [Moles/Vol] 3.8 mmol/L 3.5 - 5.3 [facility] Work Phone: [phone] Protein [Mass/Vol] 6.5 g/dL 6.4 - 8.2 [facility] Work Phone: Sodium [Moles/Vol] 139 mmol/L 136 - 145 [facility] Work Phone: Urea nitrogen [Mass/Vol] 16 mg/dL 6 - 23 -[facility] Work Phone: Laboratory - Coagulationon 1 11-10-2021 INR Coag (PPP) [Relative time] 1.2 {INR} above high threshold 0.9 - 1.1 [facility] Work Phone: PT Coag (PPP) [Time] 13.4 s 9.8 - 13.4 [employer] [facility] Work Phone: MAGNESIUMon 09-09-2022 Magnesium [Mass/Vol] 1.99 mg/dL Normal 1.60 - 2.40 [facility] Comment on above: Performed By: #### M G #### [facility] [address] [place] [address] Magnesium, Serumon Magnesium [Mass/Vol] 1.99 mg/dL See Below -[employer] [facility] Work Phone: [phone] Comment on above: Reference Range: 1.6 0 - 2.40 No Panel Informationon 09-09 38 pg/mL 0 - 99 [employer] [facility] Work Phone: [phone] Comment on above: . <100 pg/mL - Heart failure [id number] pg/mL - Intermediate probability of acute heart. failure exacerbation. Correlate with clinical. context and patient history. >=300 pg/mL - Heart Failure likely. Correlate with clinical. context and patient history.BNP testing is performed using different testing methodology at [facility] than at other [facility]. Direct result comparisons should only be made within the same method. 89 {mL/min/1.73m2} >90 [facility] Work Phone: Comment on above: CALCULATIONS OF JAI MATED GFR ARE PERFORMED USING THE 2020 CKD-EPI STUDY REFIT EQUATION WITHOUT THE RACE VARIABLE FOR THE IDMS-TRACEABLE CREATININE METHODS.https://jasn.asnjournals.org/content/early/A .5152765539 787 {ng/mL_FEU} Abnormal < or = 500 [employer] [facility] Work Phone: Comment on above: The VTE Exclusion D- [...] [Time] 13.4 s Normal 9.8 - 13.4 [facility] Comment on above: Performed By: #### M G #### [address] [address] PT, INR 1.2 High 0.9 - 1.1 [facility] Comment on above: Performed By: #### M G #### [address] [address] Provider Note - ED v3on Provider Note - ED v3 Provider Note: [...] made to minimize errors. Minor errors in maritime officer may be present. Please call if questions.. [...] results: Troponin I, High Sensitivity Trending View [id number] 12:43:00 09-Sep-2022 11:39:00 Troponin I, High Sensitivity4 5 Complete Blood Count + Differential 09-Sep-2022 11:39: (more content not included)... Normal [facility] RIBS, UNILATERAL, W PA CXR 3 VIEWSon 09-09-2022 RIBS, UNILATERAL, W PA CXR 3 VIEWS Patient Name: ALMA MCPHERSON STUDY: RIBS, UNILATERAL, W PA CXR 3 VIEWS; 09/09/2022 11:16 am INDICATION: pain . COMPARISON: Chest radiograph 07/27/2016 ACCESSION NUMBER(S): [id number] ORDERING CLINICIAN: XIN PEREIRA FINDINGS: CARDIOMEDIASTINAL SILHOUETTE: Cardiomediastinal silhouette is normal in size and configuration. LUNGS: Lungs are clear. ABDOMEN: No remarkable upper abdominal findings. Status post cholecystectomy. BONES: Five views left ribs: There is no acute left rib fracture. There is a right reverse total shoulder arthroplasty. IMPRESSION: No acute left rib fracture. Electronically signed by: TAL FREITAS MD Normal [facility] Radiologyon 09-09-2022 XR Ribs - left 3 Views Normal [facility] Work Phone: Risk Screen - Adult Emergenc [...] Communicatenone Learning Preferencesaudio Cultural Considerationsnone Developmental Considerationsnone Synagogue Considerationsnone Learning Assessment (Other Learner): Learning Assessment (Other Learner): Other learner availableno Pressure Injury/TB/Substance: Pressure Injury: Do you have a coughno Smoking Statusnever smoker Alcohol Usedenies Drug Usedenies Admission Risk Screen: Significant IndicatorsComplete CAGE: CAGE: Is this an injured patient at a Trauma Center ([facility]/[place] /[place]): no Electronic Signatures: Burt Corona (HAYDE) (Signed 09-Sep-2022 14:32) Authored: Preferred Language, Patient Preferred Pharmacy, Advanced Directives, Family Violence Adult, Learning Assessment (Patient), Learning Assessment (Other Learner), Pressure Injury/TB/Substance, Pressure Injury, CAGE Last Updated: 09-Sep-2022 14:32 by Burt Corona (RN) Normal [facility] TH CT Angio Chest For PEon 1 11-10-2021 CT Angio Chest For PE Normal -[employer] [facility] Work Phone: TROPONIN I, HIGH SENSITIVITY on 09-09-2022 TROPONIN I, HIGH SENSITIVITY Canceled Normal [facility] Comment on above: Order [...] performed using a different testing methodology at [facility] than at other [facility]. Direct result comparisons should only be made within the same method. Performed By: #### B NP2 #### [place] [address] TROPONIN I, HIGH SENSITIVITY 4 ng/L Normal 0 - 13 [facility] Comment on above: Result Comment: . [...] performed using a different testing methodology at [facility] than at other [facility]. Direct result comparisons should only be made within the same method. Performed By: #### T RP #### [place] [address] TROPONIN I, HIGH SENSITIVITY 5 ng/L Normal 0 - 13 [facility] Comment on above: Result Comment: . [...] performed using a different testing methodology at [facility] than at other [facility]. Direct result comparisons should only be made within the same method. Performed By: #### B NP2 #### [address] [address] Tropinin I.cardiac panel High sensitivity method 4 ng/L 0 - [facility] Work Phone: Comment on above: .Less than [...] performed using a different testing methodology at [facility] than at other [facility]. Direct result comparisons should only be made within the same method. Tropinin I.cardiac panel High sensitivity method 5 ng/L 0 - 13 [facility] Work Phone: Comment on above: .Less than [...] performed using a different testing methodology at [facility] than at other [facility]. Direct result comparisons should only be made within the same method. Triage - EDon 09-09-2022 Triage - ED Quick Triage: The patient and/or guardian verbally acknowledges placement for services into the following (when Urgent Care Service hours are operating):emergency department Chart Review: ARRIVAL INFORMATION Mode of Arrival: private vehicle CHIEF COMPLAINT ALMA MCPHERSON is a Female patient with a chief [...] Verbal Response: (V5) oriented Leesa Score: 15 Leesa Assessment Qualifiers: patient not sedated/intubated Cough lasting [...] History, Chart Review, Scores Jose A Khan (HAYDE) (Signed 09-Sep-2022 14:25) Authored: Quick Triage, Chart Review, Past Medical History Last Updated: 09-Sep-2022 14:25 by Jose A Khan (HAYDE) [facility] CT ABDOMEN AND PELVIS W IV C [facility] 08-12-2022 CT ABDOMEN AND PELVIS W IV CONTRAST Patient Name: ALMA MCPHERSON STUDY: CT ABDOMEN AND PELVIS W IV CONTRAST; 08/12/2022 8:58 am INDICATION: luq pain R10.812: Left upper quadrant abdominal tenderness without rebound tenderness. COMPARISON: 04/03/2019 ACCESSION NUMBER(S): [id number] ORDERING CLINICIAN: SANCHO WOODRUFF TECHNIQUE: CT of [...] acute. Electronically signed by: SYDNI RO MD [facility] CT Abdomen and Pelvis with I V Contraston 08-12-2022 CT Abdomen and Pelvis W contrast IV Normal -[facility] Work Phone: Laboratory - Chemistry and C hemistry - challengeon 08-10-2022 Anion gap [Moles/Vol] 8 mmol/L below low threshold 10 - 20 -[employer] [facility] Work Phone: Calcium [Mass/Vol] 9.1 mg/dL 8.6 - 10.3 [facility] Work Phone: Chloride [Moles/Vol] 104 mmol/L 98 - 107 [facility] Work Phone: CO2 [Moles/Vol] 32 mmol/L 21 - 32 [facility] [employer] [facility] Work Phone: Creatinine [Mass/Vol] 0.61 mg/dL See Below [facility] Work Phone: Comment on above: Reference Range: 0.5 0 - 1.05 Glucose [Mass/Vol] 80 mg/dL 74 - 99 [facility] Work Phone: [phone] Potassium [Moles/Vol] 4.1 mmol/L 3.5 - 5.3 [facility] Work Phone: Sodium [Moles/Vol] 140 mmol/L 136 - 145 [facility] Work Phone: Urea nitrogen [Mass/Vol] 15 mg/dL 6 - 23 [facility] Work Phone: No Panel Informationon 08-10 90 {mL/min/1.73m2} >90 [facility] Work Phone: Comment on above: CALCULATIONS OF JAI MATED GFR ARE PERFORMED USING THE 2020 CKD-EPI STUDY REFIT EQUATION WITHOUT THE RACE VARIABLE FOR THE IDMS-TRACEABLE CREATININE METHODS.https://jasn.asnjournals.org/content/22/A SN.3570004747 Office Visit (Primary Care T xt/Forms)on 08-03-2022 [...] Diverticulitis, colon Basic Metabolic Panel; Status:Active; Requested for:[id number]; Left upper quadrant abdominal tenderness without rebound tenderness CT Abdomen and Pelvis with IV Contrast; Status:Hold For - Scheduling; Requested for:[id number]; Patient taking Metformin or Derivatives? : No [...] Patient has active power of litigation attorney for health care (V49.89) (Z78.9) Current Meds [...] EVERY MORNING (more content not included)... Normal [facility] Tobacco Screening.on 022 Fall risk assessment a) No falls within the last year [facility] Work Phone: Tobacco use status [facility] b) No [facility] Work Phone: No Panel Informationon 06-16 [employer] Work Phone: [email or web address] [employer] [facility] Work Phone: Medicare Annual Wellness Vis iton [...] a lot of gerd, on dexilant as ahs barrenitish, last egd is 3 yrs and scheduled [...] Family histor (more content not included)... Normal [facility] Tobacco Screening.on 022 Fall risk assessment a) No falls within the last year [facility] Work Phone: Tobacco use status [facility] b) No [facility] Work Phone: Office Visit (Primary Care T [...] Patient has active power of litigation attorney for health care (V49.89) (Z78.9) Current Meds [...] TAPE Zestoretic TABS Vitals Vital Signs Recorded: 17May2022 03:03PM Heart Rate: 80 Systolic: 124 Diastolic: 72 Height: 4 ft 10 in Weight: 161 lb 4 oz BMI Calculated: 33.7 kg/m2 BSA Calculated: 1.66 Tobacco Use: b) No PHQ-2 #1. Over the last 2 weeks have you felt down, depressed or hopeless? (more content not included)... Normal [facility] Tobacco Screening.on 022 Adult depression screening assessment No [facility] Work Phone: Fall risk assessment a) No falls within the last year [facility] Work Phone: Tobacco use status [facility] b) No [facility] Work Phone: LG Jt Injection/Arthrocentes is: L glenohumeralon 05-13-2022 Christine Voss CNP 05/13/2022 11:50 AM LG Jt Injection/Arthrocentesis : L glenohumeral Date/Time: 05/13/2022 11:49 AM Performed by: Christine Voss CNP Authorized by: Christine Voss CNP CPT 78669 - Large Joint Arthrocentesis: Consent given by: [...] the procedure well with no immediate complications [facility] Office Visit (Primary Care T [...] Patient has active power of litigation attorney for health care (V49.89) (Z78.9) Current Meds [...] 2022 10:12AM (more content not included)... Normal [facility] Tobacco Screening.on 022 Fall risk assessment a) No falls within the last year [facility] Work Phone: Tobacco use status [facility] b) No [facility] Work Phone: LG Jt Injection/Arthrocentes is: L greater trochanteric bursaon 04-28-2022 Christine Voss, ELIJAH 04/28/2022 10:09 PM LG Jt Injection/Arthrocentesis : L greater trochanteric bursa Date/Time: 04/28/2022 10:08 PM Performed by: Christine Voss CNP Authorized by: Christine Voss CNP CPT 65119 - Large Joint Arthrocentesis: Consent given by: [...] the procedure well with no immediate complications [facility] No Panel Informationon 03-15 Atrial Rate [facility] [place] [facility] P-R Interval [facility] Q-T Interval [facility] Q-T Interval (corrected) [facility] QRS Duration [facility] QTC Calculation (Bezet) [facility] R [place] T [place] [facility] Ventricular Rate [facility] ECG 12 leadon 03-12-2022 Atrial Rate [facility] P [place] [facility] P-R Interval [facility] Q-T Interval [facility] Q-T Interval (corrected) [facility] QRS Duration [facility] QTC Calculation (Bezet) [facility] R [place] [facility] T [place] [facility] Ventricular Rate [facility] Tobacco Screening.on 022 Fall risk assessment a) No falls within the last year [facility] Work Phone: Tobacco use status [facility] b) No [facility] Work Phone: Laboratory - Chemistry and C hemistry - challengeon 01-04-2022 Albumin BCP dye [Mass/Vol] 3.9 g/dL 3.4 - 5.0 [facility] Work Phone: ALP [Catalytic activity/Vol] 104 U/L 33 - 136 [facility] Work Phone: ALT With P-5'-P [Catalytic activity/Vol] 11 U/L 7 - 45 [facility] Work Phone: [phone] Comment on above: Patients treated wit h Sulfasalazine may generate falsely decreased results for ALT. Anion gap [Moles/Vol] 9 mmol/L below low threshold 10 - 20 [facility] Work Phone: [phone] AST With P-5'-P [Catalytic activity/Vol] 33 U/L 9 - 39 [facility] Work Phone: Bilirubin [Mass/Vol] 1.1 mg/dL 0.0 - 1.2 [facility] Work Phone: Calcium [Mass/Vol] 9.1 mg/dL 8.6 - 10.3 -[facility] Critical access hospital Work Phone: Chloride [Moles/Vol] 102 mmol/L 98 - 107 [facility] Work Phone: [phone] CO2 [Moles/Vol] 32 mmol/L 21 - 32 [facility] Work Phone: Creatinine [Mass/Vol] 0.62 mg/dL See Below [facility] Work Phone: [phone] Comment on above: Reference Range: 0.5 0 - 1.05 Glucose [Mass/Vol] 76 mg/dL 74 - 99 -[facility] Work Phone: [phone] Potassium [Moles/Vol] 4.0 mmol/L 3.5 - 5.3 - [facility] Work Phone: Protein [Mass/Vol] 6.9 g/dL 6.4 - 8.2 -[facility] Work Phone: Sodium [Moles/Vol] 139 mmol/L 136 - 145 [facility] Work Phone: Urea nitrogen [Mass/Vol] 15 mg/dL 6 - 23 [facility] Work Phone: Laboratory - Hematology and Cell countson 01-04-2022 Erythrocyte distribution width (RBC) [Ratio] 14.8 % above high threshold See Below [facility] [facility] Work Phone: [phone] Comment on above: Reference Range: 11. 5 - 14.5 Hematocrit (Bld) [Volume fraction] 40.3 % See Below [facility] Work Phone: [phone] Comment on above: Reference Range: 36. 0 - 46.0 Hemoglobin (Bld) [Mass/Vol] 13.4 g/dL See Below [facility] Work Phone: [phone] Comment on above: Reference Range: 12. 0 - 16.0 MCHC (RBC) [Mass/Vol] 33.2 g/dL See Below [facility] Work Phone: [phone] Comment on above: Reference Range: 32. 0 - 36.0 MCV (RBC) [Entitic vol] 95 fL 80 - 100 [facility] Work Phone: [phone] Platelets (Bld) [#/Vol] 139 10*3/uL below low threshold 150 - 450 [facility] Work Phone: [phone] RBC (Bld) [#/Vol] 4.22 {x10E12/L} See Below [facility] Work Phone: [phone] Comment on above: Reference Range: 4.0 0 - 5.20 WBC (Bld) [#/Vol] 4.7 10*3/uL 4.4 - 11.3 [employer] [facility] Work Phone: [phone] No Panel Informationon 01-04 90 {mL/min/1.73m2} >90 [employer] [facility] Work Phone: [phone] Comment on above: CALCULATIONS OF JAI MATED GFR ARE PERFORMED USING THE 2020 CKD-EPI STUDY REFIT EQUATION WITHOUT THE RACE VARIABLE FOR THE IDMS-TRACEABLE CREATININE METHODS.https://jasn.asnjournals.org/content/22/A SN.3777380994 TSH - Thyroid Stimulating Ho rmone, Serumon 01-04-2022 TSH Qn 5.52 m[IU]/L above high threshold See Below [facility] Work Phone: Comment on above: Reference Range: 0.4 4 - 3.98 TSH testing is performed using different testing methodology at [facility] than at other [facility]. Direct result comparisons should only be made within the same method. Tobacco Screening.on 022 Fall risk assessment a) No falls within the last year [facility] Work Phone: Tobacco use status [facility] b) No [facility] Work Phone: Laboratory - Chemistry and C hemistry - challengeon 11-05-2021 Creatinine (Body fld) [Mass/Vol] 60.9 mg/dL [facility] Work Phone: Comment on above: A urine creatinine r esult >= 20 mg/dL is considered valid without suspicion of dilution. Samples with results below this range will automatically reflex to specific gravity testing to verify specimen integrity. Laboratory - Drug toxicology on 11-05-2021 1-Hydroxymidazolam Confirm (U) [Mass/Vol] <25 Cutoff <25 [facility] Work Phone: 3-Mykoqgthua-1,5-Dimet hyl-3,3-Diphenylpyrrol idine (EDDP) Confirm (U) [Mass/Vol] <25 Cutoff <25 [facility] Work Phone: Comment on above: The performance [...] (6-TRA) Confirm (U) [Mass/Vol] <25 Cutoff <25 [facility] Work Phone: 7-Aminoclonazepam Confirm (U) [Mass/Vol] <25 Cutoff <[address] Work Phone: Alpha hydroxyalprazolam Confirm (U) [Mass/Vol] <25 Cutoff <[address] [facility] Work Phone: ALPRAZolam Confirm (U) [Mass/Vol] <25 Cutoff <25 [facility] [facility] Work Phone: Amphetamines Screen Ql (U) Negative NEGATIVE [facility] Work Phone: Comment on above: CUTOFF LEVEL: 500 NG /ML Cross-reactivity has been reported with high concentrations of the following drugs: buproprion, chloroquine, chlorpromazine, ephedrine, mephentermine, fenfluramine, phentermine, phenylpropanolamine, pseudoephedrine, and propranolol. Barbiturates Screen Ql (U) Negative NEGATIVE [facility] Work Phone: [phone] Comment on above: CUTOFF LEVEL: 200 NG /ML Benzoylecgonine Screen Ql (U) Negative NEGATIVE [facility] Work Phone: Comment on above: CUTOFF LEVEL: 150 NG /ML Cannabinoids Screen Ql (U) Negative NEGATIVE [facility] Work Phone: Comment on above: CUTOFF LEVEL: 50 NG/ ML chlordiazePOXIDE Confirm (U) [Mass/Vol] <25 Cutoff <[address] [facility] Work Phone: clonazePAM Confirm (U) [Mass/Vol] <25 Cutoff <25 [facility] [facility] Work Phone: Codeine Confirm (U) [Mass/Vol] <50 Cutoff <50 [facility] [facility] Work Phone: diazePAM Confirm (U) [Mass/Vol] <25 Cutoff <25 [facility] [facility] Work Phone: fentaNYL Confirm (U) [Mass/Vol] <2.5 Cutoff<2.5 [facility] Work Phone: HYDROcodone Confirm (U) [Mass/Vol] <25 Cutoff <25 [facility] Work Phone: HYDROmorphone Confirm (U) [Mass/Vol] <25 Cutoff <25 [facility] Work Phone: LORazepam Confirm (U) [Mass/Vol] <25 Cutoff <25 [facility] Work Phone: Methadone Confirm (U) [Mass/Vol] <25 Cutoff <25 [facility] Work Phone: Midazolam Confirm (U) [Mass/Vol] <25 Cutoff <25 [facility] Work Phone: Morphine Confirm (U) [Mass/Vol] <50 Cutoff <50 [facility] Work Phone: Nordiazepam Confirm (U) [Mass/Vol] <25 Cutoff <25 [facility] Work Phone: Norfentanyl Confirm (U) [Mass/Vol] <2.5 Cutoff<2.5 [facility] Work Phone: Comment on above: The performance [...] Confirm (U) [Mass/Vol] <25 Cutoff <25 [facility] Work Phone: Noroxycodone Confirm (U) [Mass/Vol] <25 Cutoff <25 [facility] Work Phone: Nortramadol (U) [Mass/Vol] >1000 Abnormal Cutoff <50 [facility] Work Phone: Comment on above: Tramadol metabolite; [...] Oxazepam Confirm (U) [Mass/Vol] <25 Cutoff <25 [facility] Work Phone: [phone] oxyCODONE Confirm (U) [Mass/Vol] <25 Cutoff <25 [facility] Work Phone: oxyMORphone Confirm (U) [Mass/Vol] <25 Cutoff <25 [facility] Work Phone: [phone] Comment on above: The performance kalli acteristics [...] laboratory testing. Phencyclidine Ql (U) Negative NEGATIVE -[facility] Work Phone: [phone] Comment on above: CUTOFF LEVEL: 25 NG/ ML Cross-reactivity has been reported with dextromethorphan. Temazepam Confirm (U) [Mass/Vol] <25 Cutoff <25 [facility] Work Phone: Comment on above: The performance [...] Confirm (U) [Mass/Vol] >1000 Abnormal Cutoff <50 [facility] Work Phone: Comment on above: Consistent with use of a drug containing tramadol, such as Ultram. Zolpidem (U) [Mass/Vol] <25 Cutoff <25 [facility] Work Phone: [phone] No Panel Informationon 11-05 SEE BELOW [facility] Work Phone: [phone] Comment on above: Drug screen results are [...] the laboratory medical directors. <25 Cutoff <25 [facility] Work Phone: [phone] Comment on above: The performance kalli acteristics [...] Screening.on 022 Adult depression screening assessment Yes [facility] Work Phone: [phone] Adult depression screening assessment No [facility] Work Phone: [phone] Fall risk assessment a) No falls within the last year [facility] Work Phone: [phone] Tobacco use status [facility] b) No [facility] Work Phone: [phone] LG Jt Injection/Arthrocentes is: Filiberto glenohumeralon 10-13-2021 Christine Voss CNP 10/13/2021 11:26 AM LG Jt Injection/Arthrocentesis : L glenohumeral Performed by: Christine Voss CNP Authorized by: Christine Voss CNP CPT 31095 - Large Joint Arthrocentesis: Consent given by: [...] the procedure well with no immediate complications [facility] LG Jt Injection/Arthrocentes is: L greater trochanteric bursaon 10-13-2021 Christine Voss CNP 10/13/2021 11:26 AM LG Jt Injection/Arthrocentesis : L greater trochanteric bursa Performed by: Christine Voss CNP Authorized by: Christine Voss CNP CPT 87925 - Large Joint Arthrocentesis: Consent given by: [...] the procedure well with no immediate complications [facility] No Panel Informationon 10-13 [facility] Mamm - Screening Mammogram w / Tomosynthesison 10-12-2021 MG Breast Screening Normal -[facility] Work Phone: CT Abdomen and Pelvis with I V Contraston 08-26-2021 CT Abdomen and Pelvis W contrast IV Normal -[facility] Work Phone: Laboratory - Chemistry and C hemistry - challengeon 08-24-2021 Albumin BCP dye [Mass/Vol] 3.7 g/dL 3.4 - 5.0 [facility] Work Phone: [phone] ALP [Catalytic activity/Vol] 99 U/L 33 - 136 [facility] Work Phone: [phone] ALT With P-5'-P [Catalytic activity/Vol] 12 U/L 7 - 45 -[facility] Work Phone: [phone] Comment on above: Patients treated wit h Sulfasalazine may generate falsely decreased results for ALT. Anion gap [Moles/Vol] 8 mmol/L below low threshold 10 - 20 [facility] Work Phone: [phone] AST With P-5'-P [Catalytic activity/Vol] 35 U/L 9 - 39 [facility] Work Phone: [phone] Bilirubin [Mass/Vol] 0.9 mg/dL 0.0 - 1.2 [email or web address] Work Phone: [phone] Calcium [Mass/Vol] 9.4 mg/dL 8.6 - 10.3 [facility] Work Phone: [phone] Chloride [Moles/Vol] 104 mmol/L 98 - 107 [facility] Work Phone: [phone] CO2 [Moles/Vol] 33 mmol/L above high threshold 21 - 32 [facility] Work Phone: Creatinine [Mass/Vol] 0.58 mg/dL See Below [facility] Work Phone: [phone] Comment on above: Reference Range: 0.5 0 - 1.05 Glucose [Mass/Vol] 79 mg/dL 74 - 99 [facility] Work Phone: Potassium [Moles/Vol] 4.0 mmol/L 3.5 - 5.3 [facility] Work Phone: Protein [Mass/Vol] 6.8 g/dL 6.4 - 8.2 -[employer] [facility] Critical access hospital Work Phone: [phone] Sodium [Moles/Vol] 141 mmol/L 136 - 145 [facility] Critical [facility] Work Phone: [phone] Urea nitrogen [Mass/Vol] 14 mg/dL 6 - 23 -[facility] Work Phone: [phone] Laboratory - Hematology and Cell countson 08-24-2021 Erythrocyte distribution width (RBC) [Ratio] 16.2 % above high threshold See Below [facility] Work Phone: [phone] Comment on above: Reference Range: 11. 5 - 14.5 Hematocrit (Bld) [Volume fraction] 40.9 % See Below [facility] Work Phone: [phone] Comment on above: Reference Range: 36. 0 - 46.0 Hemoglobin (Bld) [Mass/Vol] 13.3 g/dL See Below [facility] Work Phone: [phone] Comment on above: Reference Range: 12. 0 - 16.0 MCHC (RBC) [Mass/Vol] 32.7 g/dL See Below [facility] Work Phone: [phone] Comment on above: Reference Range: 32. 0 - 36.0 MCV (RBC) [Entitic vol] 95 fL 80 - 100 [facility] Work Phone: [phone] Platelets (Bld) [#/Vol] 148 10*3/uL below low threshold 150 - 450 [facility] Work Phone: [phone] RBC (Bld) [#/Vol] 4.28 {x10E12/L} See Below [facility] Work Phone: [phone] Comment on above: Reference Range: 4.0 0 - 5.20 WBC (Bld) [#/Vol] 5.0 10*3/uL 4.4 - 11.3 [facility] Critical [facility] Work Phone: No Panel Informationon 08-24 >60 >60 [facility] Work Phone: Comment on above: CALCULATIONS OF JAI MATED GFR ARE PERFORMED USING THE MDRD STUDY EQUATION FOR THE IDMS-TRACEABLE CREATININE METHODS. CLIN CHEM 2007;53:766-72 Falls Risk Screeningon 08-07 Fall risk assessment a) No falls within the last year [facility] Work Phone: Tobacco use status CP b) No [facility] Work Phone: OH ORT LARGE JOINT ARTHROCEN TESISon 06-25-2021 Christine Voss CNP 06/25/2021 12:25 PM LG Jt Injection/Arthrocentesis : L greater trochanteric bursa Performed by: Christine Voss CNP Authorized by: Christine Voss CNP CPT 25645 - Large Joint Arthrocentesis: Consent given by: [...] the procedure well with no immediate complications [facility] Tobacco Screening.on 021 Fall risk assessment a) No falls within the last year [facility] Work Phone: Tobacco use status [facility] b) No [facility] Work Phone: Laboratory - Chemistry and C hemistry - challengeon 05-01-2021 Albumin BCP dye [Mass/Vol] 3.7 g/dL 3.4 - 5.0 [facility] Work Phone: ALP [Catalytic activity/Vol] 124 U/L 33 - 136 [facility] Work Phone: ALT With P-5'-P [Catalytic activity/Vol] 19 U/L 7 - 45 [facility] Work Phone: Comment on above: Patients treated wit h Sulfasalazine may generate falsely decreased results for ALT. Anion gap [Moles/Vol] 11 mmol/L 10 - 20 [facility] Work Phone: AST With P-5'-P [Catalytic activity/Vol] 50 U/L above high threshold 9 - 39 [facility] Work Phone: Bilirubin [Mass/Vol] 0.8 mg/dL 0.0 - 1.2 [facility] Work Phone: Calcium [Mass/Vol] 8.7 mg/dL 8.6 - 10.3 [facility] Work Phone: Chloride [Moles/Vol] 105 mmol/L 98 - 107 [facility] Critical access hospital Work Phone: CO2 [Moles/Vol] 29 mmol/L 21 - 32 [facility] Critical access hospital Work Phone: Creatinine [Mass/Vol] 0.60 mg/dL See Below [facility] Work Phone: Comment on above: Reference Range: 0.5 0 - 1.05 Glucose [Mass/Vol] 80 mg/dL 74 - 99 -[facility] Work Phone: Potassium [Moles/Vol] 3.9 mmol/L 3.5 - 5.3 - [facility] Work Phone: Protein [Mass/Vol] 6.7 g/dL 6.4 - 8.2 -[facility] Work Phone: Sodium [Moles/Vol] 141 mmol/L 136 - 145 -[facility] Work Phone: Urea nitrogen [Mass/Vol] 18 mg/dL 6 - 23 [facility] Work Phone: [phone] Laboratory - Hematology and Cell countson 05-01-2021 Erythrocyte distribution width (RBC) [Ratio] 15.1 % above high threshold See Below [facility] Work Phone: [phone] Comment on above: Reference Range: 11. 5 - 14.5 Hematocrit (Bld) [Volume fraction] 39.5 % See Below [facility] Work Phone: [phone] Comment on above: Reference Range: 36. 0 - 46.0 Hemoglobin (Bld) [Mass/Vol] 13.0 g/dL See Below [facility] Work Phone: [phone] Comment on above: Reference Range: 12. 0 - 16.0 MCHC (RBC) [Mass/Vol] 33.0 g/dL See Below [facility] Work Phone: [phone] Comment on above: Reference Range: 32. 0 - 36.0 MCV (RBC) [Entitic vol] 96 fL 80 - 100 [facility] Work Phone: [phone] Platelets (Bld) [#/Vol] 143 10*3/uL below low threshold 150 - 450 [facility] Work Phone: [phone] RBC (Bld) [#/Vol] 4.12 {x10E12/L} See Below [facility] Work Phone: [phone] Comment on above: Reference Range: 4.0 0 - 5.20 WBC (Bld) [#/Vol] 4.9 10*3/uL 4.4 - 11.3 [facility] Work Phone: [phone] Lipid Panelon 05-01-2021 Cholesterol [Mass/Vol] 114 mg/dL 0 - 199 [facility] Work Phone: [phone] Comment on above: . AGE DESIRABLE BORD [...] dosing. Cholesterol in HDL [Mass/Vol] 54.0 mg/dL [facility] Work Phone: Comment on above: . AGE VERY LOW LOW N ORMAL HIGH 0-19 Y < 35 < 40 40-45 ---- 20-24 Y ---- < 40 >45 ---- >24 Y ---- < 40 40-60 >60. Cholesterol in LDL [Mass/Vol] 45 mg/dL 0 - 99 [facility] Work Phone: [phone] Comment on above: . NEAR BORD AGE JASSON RABLE OPTIMAL HIGH HIGH VERY HIGH 0-19 Y 0 - 109 --- 110-129 >/= 130 ---- 20-24 Y 0 - 119 --- 120-159 >/= 160 ---- >24 Y 0 - 99 100-129 130-159 160-189 >/=190. Cholesterol.total/Chol esterol in HDL [Mass ratio] 2.1 {ratio} [facility] Work Phone: [phone] Comment on above: REF VALUESDESIRABLE < 3.4HIGH RISK > 5.0 Triglyceride [Mass/Vol] 76 mg/dL 0 - 149 [facility] Work Phone: [phone] Comment on above: . AGE DESIRABLE BORD [...] Lipid Panel 15 mg/dL 0 - 40 [facility] Work Phone: No Panel Informationon 05-01 >60 >60 [facility] Work Phone: Comment on above: CALCULATIONS OF JAI MATED GFR ARE PERFORMED USING THE MDRD STUDY EQUATION FOR THE IDMS-TRACEABLE CREATININE METHODS. CLIN CHEM 2007;53:766-72 TSH - Thyroid Stimulating Ho bryan, Serumon 05-01-2021 TSH Qn 3.99 m[IU]/L above high threshold See Below [facility] Work Phone: Comment on above: Reference Range: 0.4 4 - 3.98 TSH testing is performed using different testing methodology at [facility] than at other [facility]. Direct result comparisons should only be made within the same method. [place] ORT LARGE JOINT ARTHROCEN TESISOrdered By: Christine Voss on 02-25-2021 Christine Voss CNP 02/25/2021 4:36 PM LG Jt Injection/Arthrocentesis : L glenohumeral Performed by: Christine Voss CNP Authorized by: Christnie Voss CNP CPT 58221 - Large Joint Arthrocentesis: Consent given by: [...] the procedure well with no immediate complications [facility] Otheron 11-19-2020 Atrial Rate [facility] [place] [facility] P-R Interval [facility] Q-T Interval [facility] Q-T Interval (corrected) [facility] QRS Duration [facility] QTC Calculation (Bezet) [facility] R [place] [facility] T [place] Ventricular Rate [facility]amm[facility] w / Tomosynthesison 10-09-2020 MG Breast screening Interpreted by: DENIZ TORO10/09/20 09:47MRN: [id number] Name: ALMA MCPHERSON STUDY:Digital mammography screening with danielle; 10/09/2020 8:20 [...] signed by: DENIZ TORO 10/09/20 09:47 Normal [facility] [place] [address] Work Phone: [facility] 10-09-2020 Interpreted by: DENIZ TORO10/09/20 10:26MRN: [id number] Name: ALMA MCPHERSON STUDY:BONE DENSITY, DEXA 1 OR MORE SITES: [...] signed by: DENIZ TORO 10/09/20 10:26 Normal -[facility] [address] Work Phone: [place] OR LARGE JOINT ARTHROCEN [facility] 05-22-2020 Christine Voss CNP 05/22/2020 5:23 PM LG Jt Injection/Arthrocentesis : L glenohumeral Performed by: Christine Voss CNP Authorized by: Christine Voss CNP CPT 12510 - Large Joint Arthrocentesis: Consent given by: [...] the procedure well with no immediate complications [facility] ORT LARGE JOINT ARTHROCEN TESISon 02-22-2020 Christine Voss CNP 02/22/2020 10:10 AM LG Jt Injection/Arthrocentesis : L glenohumeral Performed by: Christine Voss CNP Authorized by: Christine Voss CNP CPT 47668 - Large Joint Arthrocentesis: Consent given by: [...] the procedure well with no immediate complications [facility] CCTA Heart (Clinical Application Consultant yaritza becker)on 02-12-2020 1. Total calcium sco re: 332 [...] patients with non-obstructive plaque in multiple segments. [facility] Coronary Computed Angiography Report CPT code: 01721 Requesting Physician: Keagan Borges Interpreting Clinical Application Consultant: Chante Oliva MD Primary Care Physician: Sancho [...] Image Quality: Good, No significant artifacts. Scanner: Apt[employer] Revolution DLP: 340.41 mGy 72cc Isovue-370. 0.4mg [...] SEPARATE RADIOLOGY REPORT FOR THE NONCARDIAC FINDINGS [facility] CT CCTA HEART WITH AND WITHO UT CONTRASTon 02-12-2020 Moderate vertebral b norma compression fracture at the thoracolumbar junction (likely T12) with at least 50% height loss. New from 03/15/2017 but favored to be chronic. Mildly prominent mediastinal and hilar lymph nodes. Favored to be reactive. Please refer to grocery shopper report for dedicated CT calcium scoring and cardiac CTA findings. [employer] Workstation ID: [id number] [facility] EXAMINATION: CT CCTA HEART WITH AND [...] and CTA coronary protocol was utilized. Clinical Application Consultant will interpret the CT calcium score and [...] arch is not completely included on imaging [id number]. Descending thoracic aorta is tortuous. Mild atherosclerotic [...] left. Right reverse shoulder replacement visualized on rfid strategist radiograph. [facility] Interface, Rad In Fu ji Speechq - 02/12/2020 [...] and CTA coronary protocol was utilized. Clinical Application Consultant will interpret the CT calcium score and [...] arch is not completely included on imaging [id number]. Descending thoracic aorta is tortuous. Mild atherosclerotic [...] left. Right reverse shoulder replacement visualized on rfid strategist radiograph. IMPRESSION: Moderate vertebral body compression fracture at the thoracolumbar junction (likely T12) with at least 50% height loss. New from 03/15/2017 but favored to be chronic. Mildly prominent mediastinal and hilar lymph nodes. Favored to be reactive. Please refer to grocery shopper report for dedicated CT calcium scoring and cardiac CTA findings. [employer] Workstation ID: [id number] [facility] POC Creatinineon 02-12-2020 Creatinine [Mass/Vol] 0.6 mg/dL 0.6 - 1.2 mg/dL [facility] Interpretation and review of laboratory results Normal [facility] Basic Metabolic Panelon 11-11 Anion gap [Moles/Vol] 11 mmol/L 10 - 2 0 mmol/L [facility] Calcium [Mass/Vol] 8.9 mg/dL 8.4 - 10. 2 mg/dL [facility] Chloride [Moles/Vol] 103 mmol/L 98 - 10 8 mmol/L [facility] Creatinine [Mass/Vol] 0.61 mg/dL 0.60 - 1.20 [facility] GFR/1.73 sq M predicted among non-blacks MDRD (S/P/Bld) [Vol rate/Area] The eGFR should be used for monitoring renal function only and not for medication dosing. [facility] GFR/1.73 sq M.predicted CKD-EPI (S/P/Bld) [Vol rate/Area] 88 >=60 mL/min/1.73 m2 [facility] Glucose [Mass/Vol] 134 mg/dL High 65 - 99 mg/dL [facility] HCO3 [Moles/Vol] 25 mmol/L 21 - 32 mmol/L [facility] Interpretation and review of laboratory results Abnormal [facility] Potassium [Moles/Vol] 4.2 mmol/L 3.5 - 5.1 mmol/L [facility] Sodium [Moles/Vol] 135 mmol/L 135 - 145 mmol/L [facility] Urea nitrogen [Mass/Vol] 11 mg/dL 8 - 25 mg/dL [facility] Urea nitrogen/Creatinine [Mass ratio] 18.0 mg/mg [facility] Hemoglobin and Hematocriton 11-30-2019 Hematocrit (Bld) [Volume fraction] 38.5 % 36 - 46 % [facility] Hemoglobin (Bld) [Mass/Vol] 12.9 g/dL 12 - 16 g/dL [facility] Interpretation and review of laboratory results Normal [facility] XR OR Shoulder Right 2+ View [...] intact without complication on this limited assessment. [facility] Interface, Rad In Fu ji Speechq [...] report regarding further procedural details. Workstation ID: [id number] Reverse right total shoulder arthroplasty, please see operative report regarding further procedural details. Workstation ID: [id number] Otheron 11-20-2019 Nuclear Report Patient: [place] Boot[facility] Med Rec#: [id number] (Age): 1940(78y) Height: Study Date: 11/20/2019 Weight: [...] imaging protocol was followed using Tc-99m tetrofosmin (Authernativeview) injected intravenously. For the rest portion of [...] at 11/20/2019 12:29:57 by: Haroon Quintanilla MD [facility] Interface, Rad In Heartlab Xper Echopacs - 11/20/2019 12:31 PM EST Nuclear Report Patient: [place] Boot[facility] Med Rec#: [id number] (Age): 1940(78y) Height: Study Date: 11/20/2019 Weight: [...] imaging protocol was followed using Tc-99m tetrofosmin (Authernativeview) injected intravenously. For the rest portion of [...] at 11/20/2019 12:29:57 by: Haroon Quintanilla MD [facility] 11-08-2019 Interpretation and review of laboratory results Normal [facility] MRSA isol Org specific cx Ql (Unsp spec) Negative [facility] ECG 12-LEADon 11-07-2019 Atrial Rate 81 BPM [facility] P [place] 48 degrees [facility] P-R Interval 188 ms [facility] Q-T Interval 390 ms [facility] QRS Duration 70 ms [facility] QTC Calculation (Bezet) 453 ms [facility] R [place] 40 degrees [facility] T [place] 60 degrees [facility] Ventricular Rate 81 BPM [facility] Sinus rhythm with Premature atrial complexes with Aberrant conduction Otherwise normal ECG Confirmed by Bria Francisco MD ([id number]) on 11/07/2019 8:01:48 AM [facility] Basic metabolic panelon 10-11 Anion gap [Moles/Vol] 12 mmol/L 10 - 2 0 mmol/L [facility] Calcium [Mass/Vol] 9.1 mg/dL 8.4 - 10. 2 mg/dL [facility] Chloride [Moles/Vol] 104 mmol/L 98 - 10 8 mmol/L [facility] Creatinine [Mass/Vol] 0.66 mg/dL 0.6 - 1.2 mg/dL [facility] GFR/1.73 sq M predicted among non-blacks MDRD (S/P/Bld) [Vol rate/Area] The eGFR should be used for monitoring renal function only and not for medication dosing. [facility] GFR/1.73 sq M.predicted CKD-EPI (S/P/Bld) [Vol rate/Area] 85 >=60 mL/min/1.73 m2 [facility] Glucose [Mass/Vol] 83 mg/dL 65 - 99 mg/dL [facility] HCO3 [Moles/Vol] 27 mmol/L 21 - 32 mmol/L [facility] Interpretation and review of laboratory results Normal [facility] Potassium [Moles/Vol] 3.7 mmol/L 3.5 - 5.1 mmol/L [facility] Sodium [Moles/Vol] 139 mmol/L 135 - 145 mmol/L [facility] Urea nitrogen [Mass/Vol] 13 mg/dL 8 - 25 mg/dL [facility] Urea nitrogen/Creatinine [Mass ratio] 19.7 mg/mg [facility] CBC WITH AUTO DIFFERENTIALon 11-06-2019 Basophils (Bld) [#/Vol] 0.05 10*3/uL [facility] Basophils/100 WBC (Bld) 0.6 % [facility] Eosinophils (Bld) [#/Vol] 0.07 10*3/uL [facility] Eosinophils/100 WBC (Bld) 0.9 % [facility] Erythrocyte distribution width (RBC) [Entitic vol] 13.3 % 11.6 - 14.8 % [facility] Hematocrit (Bld) [Volume fraction] 42.9 % 36 - 46 % [facility] Hemoglobin (Bld) [Mass/Vol] 13.7 g/dL 12 - 16 g/dL [facility] Immature granulocytes (Bld) [#/Vol] 0.02 10*3/uL [facility] Immature granulocytes/100 WBC (Bld) 0.20 % [facility] Comment on above: The IG parameter is the percentage of metamyelocytes, myelocytes, and promyelocytes. Lymphocytes (Bld) [#/Vol] 2.39 10*3/uL [facility] Lymphocytes/100 WBC (Bld) 29.4 % [facility] MCH (RBC) [Entitic mass] 30.8 pg 26 - 34 pg [facility] MCHC (RBC) [Mass/Vol] 31.9 g/dL 31 - 37 g/dL [facility] MCV (RBC) [Entitic vol] 96.4 fL 80 - 100 fL [facility] Monocytes (Bld) [#/Vol] 0.74 10*3/uL [facility] Monocytes/100 WBC (Bld) 9.1 % [facility] Neutrophils (Bld) [#/Vol] 4.85 10*3/uL [facility] Neutrophils/100 WBC (Bld) 59.8 % [facility] Nucleated RBC (Bld) [#/Vol] 0.00 10*3/uL [facility] Nucleated RBC/100 WBC (Bld) [Ratio] 0.0 % [facility] Platelet mean volume (Bld) [Entitic vol] 12.0 fL 9 - 15.5 fL [facility] Platelets (Bld) [#/Vol] 194 10*3/uL [facility] RBC (Bld) [#/Vol] 4.45 10*6/uL [facility] WBC (Bld) [#/Vol] 8.12 10*3/uL [facility] Mammography Screening Buddy santiago 10-08-2019 No mammographic evid ence of malignancy. BIRADS: BIRADS - CATEGORY 2 Benign, no evidence of malignancy. Normal interval follow-up is recommended in 12 months. OVERALL ASSESSMENT - BENIGN A letter of notification will be sent to the patient regarding the results. [facility], along with the National [employer], the [employer], and [facility], recommend annual screening mammograms for women age 40 and older. Workstation ID: [id number] [facility] EXAMINATION: DIGITAL BILATERAL SCREENING MAMMOGRAM INDICATION: Yearly screening exam. COMPARISON: Mammograms dated 09/28/2018 and 07/21/2017 TECHNIQUE: Bilateral CC and MLO views. Computer-aided detection was utilized in the interpretation of this exam. FINDINGS: The breast tissue density is almost entirely fatty. No suspicious masses, asymmetries or calcifications identified. There are benign calcifications bilaterally. [facility] Otheron 09-25-2019 This order has been auto-finalized and does not contain a result. [facility] VLADISLAV Teston 05-09-2019 VLADISLAV Test Negative Normal Negative [facility] Comment on above: Performed By: #### 8 [id number] ####EVGENY [facility] Micro SubSection, CT Abdomen/Pelvis w/ Contras ton 04-04-2019 CT Abdomen/Pelvis w/ Contrast Exam Date/Time: 04/03/2019 13:44 EDT Reason for Exam: NAUSEA VOMITING;Nausea with vomiting Report STUDY: CT Abdomen/Pelvis w/ Contrast; 04/03/2019 1:44 pm INDICATION: Nausea with vomiting. COMPARISON: CT of the abdomen and pelvis dated 07/20/2016 ACCESSION NUMBER(S): [id number] ORDERING CLINICIAN: Oksana Ocampo TECHNIQUE: Contiguous axial [...] by: Deniz Toro MD Technologist: MLL Normal [facility] Amylaseon 04-02-2019 Amylase [Catalytic activity/Vol] 48 Int._Unit/L Normal 29-103 [facility] Comment on above: Performed By: #### 2 [id number] ####EVGENY [id number] [place] [address] CMPon 04-02-2019 Albumin [Mass/Vol] 3.8 g/dL Normal 3.4-5.0 [facility] Comment on above: Performed By: #### 2 050005 ####EVGENY [id number] [place] [address] Albumin/Globulin [Mass ratio] 1.2 {ratio} Normal 1.1-1.9 [facility] Comment on above: Performed By: #### 2 [id number] ####[facility] [id number] [place] [address] Alk Phos 118 Int._Unit/L Normal 33-136 [facility] Comment on above: Performed By: #### 2 [id number] ####[facility] [id number] [place] [address] ALT [Catalytic activity/Vol] 18 Int._Unit/L Normal 7-45 [facility] Comment on above: Performed By: #### 2 [id number] ####[facility] [id number] [place] [address] Anion gap [Moles/Vol] 10 mmol/L Normal 10-20 [facility] Comment on above: Performed By: #### 2 [id number] ####[facility] [id number] [place] [address] AST [Catalytic activity/Vol] 41 Int._Unit/L High 9-39 [facility] Comment on above: Performed By: #### 2 [id number] ####[facility] [address] [place] [address] Bili Total 0.81 mg/dL Normal 0.00-1.20 [facility] Comment on above: Performed By: #### 2 [id number] ####[facility] [id number] [place] [address] Calcium [Mass/Vol] 9.2 mg/dL Normal 8.6-10.3 [facility] Comment on above: Performed By: #### 2 [id number] ####[facility] [id number] [place] [address] Chloride [Moles/Vol] 104 mmol/L Normal 98-107 [facility] Comment on above: Performed By: #### 2 666005 ####[facility] [address] [place] [address] CO2 [Moles/Vol] 29.0 mmol/L Normal 21.0-32.0 [facility] Comment on above: Performed By: #### 2 [id number] ####[facility] [id number] [place] [address] Creatinine [Mass/Vol] 0.6 mg/dL Normal 0.5-1.1 [facility] Comment on above: Performed By: #### 2 930250 ####EVGENY [id number] [place] [address] Globulin (S) [Mass/Vol] 3.0 g/dL Normal 2.0-4.0 [facility] Comment on above: Performed By: #### 2 [id number] ####EVGENY [address] [place] [address] Glucose [Mass/Vol] 91 mg/dL Normal 70-99 [facility] Comment on above: Performed By: #### 2 956091 ####[facility] [id number] [place] [address] Potassium [Moles/Vol] 4.3 mmol/L Normal 3.5-5.3 [facility] Comment on above: Performed By: #### 2 [id number] ####[facility] [id number] [place] [address] Protein [Mass/Vol] 7.0 g/dL Normal 6.4-8.2 [facility] Comment on above: Performed By: #### 2 [id number] ####[facility] [id number] [place] [address] Sodium [Moles/Vol] 139 mmol/L Normal 136-145 [facility] Comment on above: Performed By: #### 2 626206 ####[facility] [address] [place] [address] Urea nitrogen [Mass/Vol] 18 mg/dL Normal 6-23 [facility] Comment on above: Performed By: #### 2 [id number] ####[facility] [address] [place] [address] Urea nitrogen/Creatinine [Mass ratio] 30.0 ratio Normal 5.4-30.0 [facility] Comment on above: Performed By: #### 2 [id number] ####[facility] [address] [place] [address] Lipase Levelon 04-02-2019 Lipase Lvl 34 Int._Unit/L Normal 9-82 [facility] Comment on above: Performed By: #### 2 [id number] ####[facility] [address] [place] [address] eGFRon 04-02-2019 GFR/1.73 sq M predicted among non-blacks MDRD (S/P/Bld) [Vol rate/Area] mL/min/{1.73_m2} Normal [facility] Comment on above: Order Comment: Order added by Discern Expert. Performed By: #### 1 [id number] ####EVGENY [address] [place] [address] Auto Diffon 03-13-2019 Basophils (Bld) [#/Vol] 0.0 E3/mcL Normal 0.0-0.2 [facility] Comment on above: Order Comment: Order Added by Discern Expert. Performed By: #### 2 [id number] #### EVGENY [address] [place] [address] Basophils/100 WBC (Bld) 0.5 % Normal 0.0-2.0 [facility] Comment on above: Order Comment: Order Added by Ct Expert. Performed By: #### 2 [id number] #### EVGENY RemHemo [address] [place] [address] Eos Absolute 0.1 E3/mcL Normal 0.0-0.7 [facility] Comment on above: Order Comment: Order Added by Ct Expert. Performed By: #### 2 [id number] #### EVGENY FrederickHemo [address] [place] [address] Eosinophils/100 WBC (Bld) 2.3 % Normal 0.0-11.0 [facility] Comment on above: Order Comment: Order Added by Ct Expert. Performed By: #### 2 113924 #### EVGENY RemHemo [address] [place] [address] Lymphocytes (Bld) [#/Vol] 2.1 E3/mcL Normal 1.2-3.4 [facility] Comment on above: Order Comment: Order Added by Discern Expert. Performed By: #### 2 [id number] #### EVGENY RemHemo [address] [place] [address] Lymphocytes/100 WBC (Bld) 40.0 % Normal 20.0-55.0 [facility] Comment on above: Order Comment: Order Added by Discern Expert. Performed By: #### 2 744323 #### EVGENY [address] [place] [address] Ford Absolute 0.4 E3/mcL Normal 0.0-0.7 [facility] Comment on above: Order Comment: Order Added by Discern Expert. Performed By: #### 2 128411 #### EVGENY [address]Hemo [address] [place] [address] Monocytes/100 WBC (Bld) 7.8 % Normal 0.0-10.0 [facility] Comment on above: Order Comment: Order Added by Discern Expert. Performed By: #### 2 [id number] #### EVGENY [address] [place] [address] Neutro Absolute 2.5 E3/mcL Normal 1.4-6.5 [facility] Comment on above: Order Comment: Order Added by Discern Expert. Performed By: #### 2 601289 #### EVGENY [address] [place] [address] Neutro Auto 49.4 % Normal 37.0-75.0 [facility] Comment on above: Order Comment: Order Added by Discern Expert. Performed By: #### 2 348360 #### EVGENY [address] [place] [address] CBC w/ Auto Diffon 9 Erythrocyte distribution width (RBC) [Ratio] 16.2 % High 11.5-14.5 [facility] Comment on above: Performed By: #### 2 713065 #### EVGENY FrederickHemo [facility] [place] [address] Hematocrit (Bld) [Volume fraction] 40.1 % Normal 36.0-48.0 [facility] Comment on above: Performed By: #### 2 123418 #### EVGENY Rem[address] [place] [address] Hemoglobin (Bld) [Mass/Vol] 13.2 g/dL Normal 12.0-16.0 [facility] Comment on above: Performed By: #### 2 189507 #### EVGENY [address] [place] [address] MCH (RBC) [Entitic mass] 30.2 pg Normal 27.0-31.0 [facility] Comment on above: Performed By: #### 2 [id number] #### EVGENY Rem[address] [place] [address] MCHC (RBC) [Mass/Vol] 32.8 g/dL Low 33.0-37.0 [facility] Comment on above: Performed By: #### 2 250583 #### EVGENY RemHemo [address] [place] [address] MCV (RBC) [Entitic vol] 92.1 fL Normal 78.0-100.0 [facility] Comment on above: Performed By: #### 2 976200 #### EVGENY [address] [place] [address] Platelet mean volume (Bld) [Entitic vol] 10.4 fL Normal 7.4-11.0 [facility] Comment on above: Performed By: #### 2 109641 #### EVGENY RemH[address] [place] [address] Platelets (Bld) [#/Vol] 142 E3/mcL Normal 130-400 [facility] Comment on above: Performed By: #### 2 [id number] #### EVGENY [address] [place] [address] RBC (Bld) [#/Vol] 4.35 E6/mcL Normal 3.90-5.40 [facility] Comment on above: Performed By: #### 2 [id number] #### EVGENY RemHemo [address] [place] [address] WBC (Bld) [#/Vol] 5.1 E3/mcL Normal 3.6-11.0 [facility] Comment on above: Performed By: #### 2 [id number] #### EVGENY RemHemo [address] [place] [address] CMPon 03-13-2019 Albumin [Mass/Vol] 3.9 g/dL Normal 3.4-5.0 [facility] Comment on above: Performed By: #### 2 [id number] ####EVGENY QrnHxss1662 [place] [address] Albumin/Globulin [Mass ratio] 1.3 {ratio} Normal 1.1-1.9 [facility] Comment on above: Performed By: #### 2 840776 ####EVGENY TdbDosn3940 [place] [address] Alk Phos 105 Int._Unit/L Normal 33-136 [facility] Comment on above: Performed By: #### 2 [id number] ####EVGENY GlpTpmz4349 [place] [address] ALT [Catalytic activity/Vol] 16 Int._Unit/L Normal 7-45 [facility] Comment on above: Performed By: #### 2 [id number] ####EVGENY XijYnxb8121 [place] [address] Anion gap [Moles/Vol] 10 mmol/L Normal 10-20 [facility] Comment on above: Performed By: #### 2 [id number] ####EVGENY EenPqck5152 [place] [address] AST [Catalytic activity/Vol] 42 Int._Unit/L High 9-39 [facility] Comment on above: Performed By: #### 2 [id number] ####EVGENY CtqPntp8151 [place] [address] Bili Total 0.68 mg/dL Normal 0.00-1.20 [facility] Comment on above: Performed By: #### 2 703062 ####EVGENY IyiBxal4045 [place] [address] Calcium [Mass/Vol] 9.2 mg/dL Normal 8.6-10.3 [facility] Comment on above: Performed By: #### 2 602985 ####EVGENY WzbZwnj8673 [place] [address] Chloride [Moles/Vol] 106 mmol/L Normal 98-107 [facility] Comment on above: Performed By: #### 2 792001 ####EVGENY OdqFdos3672 [place] [address] CO2 [Moles/Vol] 30.0 mmol/L Normal 21.0-32.0 [facility] Comment on above: Performed By: #### 2 905967 ####EVGENY AwsBevn4506 [place] [address] Creatinine [Mass/Vol] 0.6 mg/dL Normal 0.5-1.1 [facility] Comment on above: Performed By: #### 2 489236 ####EVGENYTl FisherSvyBqdi2141 [place] [address] Globulin (S) [Mass/Vol] 3.0 g/dL Normal 2.0-4.0 [facility] Comment on above: Performed By: #### 2 776850 ####EVGENYTl FisherLdhQohg1023 [place] [address] Glucose [Mass/Vol] 97 mg/dL Normal 70-99 [facility] Comment on above: Performed By: #### 2 323113 ####EVGENYTl FisherDwyQgxz1701 [place] [address] Potassium [Moles/Vol] 4.0 mmol/L Normal 3.5-5.3 [facility] Comment on above: Performed By: #### 2 913789 ####EVGENYTl FisherCmcQfsq9229 [place] [address] Protein [Mass/Vol] 6.8 g/dL Normal 6.4-8.2 [facility] Comment on above: Performed By: #### 2 758587 ####EVGENYTl FisherRzkHnxe5125 [place] [address] Sodium [Moles/Vol] 142 mmol/L Normal 136-145 [facility] Comment on above: Performed By: #### 2 342276 ####EVGENYTl FrederickHgbKhti3037 [place] [address] Urea nitrogen [Mass/Vol] 19 mg/dL Normal 6-23 [facility] Comment on above: Performed By: #### 2 855199 ####EVGENYTl FrederickPaoDcae6588 [place] [address] Urea nitrogen/Creatinine [Mass ratio] 31.7 ratio High 5.4-30.0 [facility] Comment on above: Performed By: #### 2 870682 ####EVGENYTl FrederickEhjNuqa2739 [place] [address] Magnesiumon 03-13-2019 Magnesium [Mass/Vol] 2.1 mg/dL Normal 1.6-2.4 [facility] Comment on above: Performed By: #### 2 728191 ####EVGENYTl FrederickUscYhwa9143 [place] [address] TSHon 03-13-2019 TSH Qn 4.52 mcIU/mL Normal 0.30-5.60 [facility] Comment on above: Performed By: #### 2 973353 ####EVGENY TthOkka2367 [place] [address] eGFRon 03-13-2019 GFR/1.73 sq M predicted among non-blacks MDRD (S/P/Bld) [Vol rate/Area] mL/min/{1.73_m2} Normal [facility] Comment on above: Order Comment: Order added by Discern Expert. Performed By: #### 1 [id number] ####EVGENY RxtBlam3872 [place] [address] NM Myocardial Spect Multi Re st/Stresson 02-19-2019 NM Myocardial Spect Multi Rest/Stress Exam Date/Time: 02/19/2019 09:25 EDT Reason for Exam: PALPITATIONS CHEST PRESSURE ORD STENCEL Report STUDY: NM Myocardial Spect Multi Rest/Stress; 02/19/2019 9:25 am INDICATION: PALPITATIONS CHEST PRESSURE ORD STENCEL. COMPARISON: None. ACCESSION NUMBER(S): [id number] ORDERING CLINICIAN: Haroon Quintanilla TECHNIQUE: DIVISION OF [...] as stated. This study was interpreted at [facility], [place], [place]. FINAL REPORT Dictated: 02/19/2019 9:34 am Tim Porras MD Signed (Electronic Signature): 02/19/2019 9:34 am Signed by: Tim Porras MD Technologist: ANDRES Normal [facility] Lab Miscellaneouson 02-01-20 19 Status See Ref Lab Report Normal [facility] Comment on above: Performed By: #### 1 [id number] #### EVGENY Send Outs Subsection [facility] [place] [address] Lab Miscellaneouson 01-24-20 19 Test Name LC TEST [id number] Normal [facility] Comment on above: Performed By: #### 1 [id number] #### EVGENY Send Outs Subsection [address] [place] [address] Auto Diffon 01-01-2019 Basophils (Bld) [#/Vol] 0.0 E3/mcL Normal 0.0-0.2 [facility] Comment on above: Order Comment: Order Added by Discern Expert. Performed By: #### 2 [id number] #### EVGENY RemHemo [facility] [place] [address] Basophils/100 WBC (Bld) 0.7 % Normal 0.0-2.0 [facility] Comment on above: Order Comment: Order Added by Discern Expert. Performed By: #### 2 020190 #### EVGENY RemHemo [address] [place] [address] Eos Absolute 0.1 E3/mcL Normal 0.0-0.7 [facility] Comment on above: Order Comment: Order Added by Discern Expert. Performed By: #### 2 620536 #### EVGENY RemHemo [facility] [place] [address] Eosinophils/100 WBC (Bld) 2.2 % Normal 0.0-11.0 [facility] Comment on above: Order Comment: Order Added by Discern Expert. Performed By: #### 2 918545 #### EVGENY RemHemo [address] [place] [address] Lymphocytes (Bld) [#/Vol] 1.9 E3/mcL Normal 1.2-3.4 [facility] Comment on above: Order Comment: Order Added by Discern Expert. Performed By: #### 2 582579 #### EVGENY FrederickHemo [address] [place] [address] Lymphocytes/100 WBC (Bld) 39.3 % Normal 20.0-55.0 [facility] Comment on above: Order Comment: Order Added by Discern Expert. Performed By: #### 2 227702 #### EVGENY RemHemo [address] [place] [address] Ford Absolute 0.4 E3/mcL Normal 0.0-0.7 [facility] Comment on above: Order Comment: Order Added by Discern Expert. Performed By: #### 2 822871 #### EVGENY FrederickHemo [address] [place] [address] Monocytes/100 WBC (Bld) 8.8 % Normal 0.0-10.0 [facility] Comment on above: Order Comment: Order Added by Discern Expert. Performed By: #### 2 062649 #### EVGENY FrederickHemo [address] [place] [address] Neutro Absolute 2.3 E3/mcL Normal 1.4-6.5 [facility] Comment on above: Order Comment: Order Added by Discern Expert. Performed By: #### 2 015558 #### EVGENY RemHemo [address] [place] [address] Neutro Auto 49.0 % Normal 37.0-75.0 [facility] Comment on above: Order Comment: Order Added by Discern Expert. Performed By: #### 2 992869 #### EVGENY RemHemo [address] [place] [address] CBC w/ Auto Diffon 9 Erythrocyte distribution width (RBC) [Ratio] 15.4 % High 11.5-14.5 [facility] Comment on above: Performed By: #### 2 802387 #### EVGENY FrederickHemo [address] [place] [address] Hematocrit (Bld) [Volume fraction] 40.8 % Normal 36.0-48.0 [facility] Comment on above: Performed By: #### 2 724718 #### EVGENY FrederickHemo [address] [place] [address] Hemoglobin (Bld) [Mass/Vol] 13.3 g/dL Normal 12.0-16.0 [facility] Comment on above: Performed By: #### 2 997853 #### EVGENY FrederickHemo [address] [place] [address] MCH (RBC) [Entitic mass] 29.8 pg Normal 27.0-31.0 [facility] Comment on above: Performed By: #### 2 049323 #### EVGENY FrederickHemo [address] [place] [address] MCHC (RBC) [Mass/Vol] 32.6 g/dL Low 33.0-37.0 [facility] Comment on above: Performed By: #### 2 490923 #### EVGENY FrederickHemo [address] [place] [address] MCV (RBC) [Entitic vol] 91.4 fL Normal 78.0-100.0 [facility] Comment on above: Performed By: #### 2 815536 #### EVGENY FrederickHemo [address] [place] [address] Platelet mean volume (Bld) [Entitic vol] 9.9 fL Normal 7.4-11.0 [facility] Comment on above: Performed By: #### 2 390499 #### EVGENY FrederickHemo [address] [place] [address] Platelets (Bld) [#/Vol] 157 E3/mcL Normal 130-400 [facility] Comment on above: Performed By: #### 2 985794 #### EVGENY FrederickHemo [facility] [place] [address] RBC (Bld) [#/Vol] 4.46 E6/mcL Normal 3.90-5.40 [facility] Comment on above: Performed By: #### 2 256180 #### EVGENY FrederickHemo [address] [place] [address] WBC (Bld) [#/Vol] 4.8 E3/mcL Normal 3.6-11.0 [facility] Comment on above: Performed By: #### 2 583294 #### EVGENY RemHemo [address] [place] [address] CMPon 01-01-2019 Albumin [Mass/Vol] 3.9 g/dL Normal 3.4-5.0 [facility] Comment on above: Performed By: #### 2 642335 #### EVGENY [employer] [address] [place], [place] [address] Albumin/Globulin [Mass ratio] 1.3 {ratio} Normal 1.1-1.9 [facility] Comment on above: Performed By: #### 2 826036 #### EVGENY [employer] [address] [place] [address] Alk Phos 99 Int._Unit/L Normal 33-136 [facility] Comment on above: Performed By: #### 2 549982 #### EVGENY [employer] [address] [place] [address] ALT [Catalytic activity/Vol] 14 Int._Unit/L Normal 7-45 [facility] Comment on above: Performed By: #### 2 979367 #### EVGENY [employer] [address] [place] [address] Anion gap [Moles/Vol] 10 mmol/L Normal 10-20 [facility] Comment on above: Performed By: #### 2 952214 #### EVGNEY [employer] [address] [place] [address] AST [Catalytic activity/Vol] 34 Int._Unit/L Normal 9-39 [facility] Comment on above: Performed By: #### 2 592799 #### EVGENY [employer] [address] [place] [address] Bili Total 0.90 mg/dL Normal 0.00-1.20 [facility] Comment on above: Performed By: #### 2 388872 #### EVGENY [employer] [address] [place] [address] Calcium [Mass/Vol] 9.2 mg/dL Normal 8.6-10.3 [facility] Comment on above: Performed By: #### 2 851825 #### EVGENY [employer] [address] [place] [address] Chloride [Moles/Vol] 103 mmol/L Normal 98-107 [facility] Comment on above: Performed By: #### 2 320611 #### EVGENY [employer] [address] [place] [address] CO2 [Moles/Vol] 29.0 mmol/L Normal 21.0-32.0 [facility] Comment on above: Performed By: #### 2 006756 #### EVGENY [employer] [address] [place] [address] Creatinine [Mass/Vol] 0.7 mg/dL Normal 0.5-1.1 [facility] Comment on above: Performed By: #### 2 173518 #### [facility] [employer] [address] [place] [address] Globulin (S) [Mass/Vol] 3.0 g/dL Normal 2.0-4.0 [facility] Comment on above: Performed By: #### 2 [id number] #### [facility] [employer] [address] [place] [address] Glucose [Mass/Vol] 97 mg/dL Normal 70-99 [facility] Comment on above: Performed By: #### 2 191966 #### [facility] [employer] [address] [place] [address] Potassium [Moles/Vol] 3.7 mmol/L Normal 3.5-5.3 [facility] Comment on above: Performed By: #### 2 422336 #### [facility] [employer] [address] [place] [address] Protein [Mass/Vol] 6.9 g/dL Normal 6.4-8.2 [facility] Comment on above: Performed By: #### 2 138128 #### EVGENY [employer] [address] [place] [address] Sodium [Moles/Vol] 138 mmol/L Normal 136-145 [facility] Comment on above: Performed By: #### 2 341808 #### [facility] [employer] [address] [place] [address] Urea nitrogen [Mass/Vol] 15 mg/dL Normal 6-23 [facility] Comment on above: Performed By: #### 2 869024 #### EVGENY [employer] [facility] [place] [address] Urea nitrogen/Creatinine [Mass ratio] 21.4 ratio Normal 5.4-30.0 [facility] Comment on above: Performed By: #### 2 829235 #### EVGENY [employer] [facility] [place] [address] eGFRon 01-01-2019 GFR/1.73 sq M predicted among non-blacks MDRD (S/P/Bld) [Vol rate/Area] mL/min/{1.73_m2} Normal [facility] Comment on above: Order Comment: Order added by Discern Expert. Performed By: #### 1 [id number] #### EVGENY [employer] [address] [place] [address] [place] Mamm Screen w/CAD if perf ormed bilaton 09-29-2018 [place] Mamm Screen w/CAD if performed bilat Exam Date/Time: 09/28/2018 09:50 EST Reason for Exam: SCREENING Z12.31;Screening Report STUDY: Digital mammography screening; 09/28/2018 9:50 am ACCESSION NUMBER(S): [id number] ORDERING CLINICIAN: Sancho Woodruff INDICATION: Screening. COMPARISON: [...] am Signed by: Deniz Toro MD Technologist: MGW Assessment: BI-RADS Category 1-Negative Recommendation: Normal interval follow-up Normal [facility] MRI Spine Lumbar w/o Contras ton 08-08-2018 MRI Spine Lumbar w/o Contrast Exam Date/Time: 08/08/2018 08:55 EDT Reason for Exam: LUMBAR RADICULOPATHY PT HAS HAD RIGHT HIP SURGERY/BLAT KNEES/LEFT FOOT METAL;Radiculopathy Report STUDY: MRI Spine Lumbar w/o Contrast; 08/08/2018 8:55 am INDICATION: Radiculopathy. COMPARISON: None. ACCESSION NUMBER(S): [id number] ORDERING CLINICIAN: Sancho Woodruff TECHNIQUE: The lumbar [...] 08:55 EDT Report The examination was interpreted [facility] FINAL REPORT Dictated: 08/08/2018 10:46 am Bhupendra Koenig MD Signed (Electronic Signature): 08/08/2018 10:46 am Signed by: Bhupendra Koenig MD Technologist: CFCrystal Normal [facility] XR Shoulder Left 2+ Views (S tandard)on 04-24-2018 INR Coag RelTime (Bld) X-ray of the left shoulder 3 views AP axillary Y scapular view obtained due to shoulder pain reveals moderate AC joint arthrosis otherwise no abnormalities Invalid Interpretation Code [facility] [employer] [facility] US ABDOMEN LIMITEDon 04-20-2 018 US ABDOMEN LIMITED Final ReportAccession No: [id number] Performed: Apr 20 2018 10:44AMExamination: US [...] cirrhotic contour. No focal hepatic lesion.2. Prior cholecystectomy.[facility] Physician: ANDREW XIE D.O.Trans: sskees : cc: Normal [facility] Vital Signs Date Time Vital Sign Value Performing Clinician Facility 07-30-2025 15:00-0400 Body mass index (BMI) [Ratio] 30.49 kg/m2 Sancho Woodruff MD Work Phone: [facility] 07-30-2025 15:00-0400 Body weight 61.69 kg Sancho Woodruff MD Work Phone: [facility] 07-30-2025 15:00-0400 Diastolic blood pressure 72 mm[Hg] Sancho Woodruff MD Work Phone: [facility] 07-30-2025 15:00-0400 Heart rate 86 /min Sancho Woodruff MD Work Phone: [facility] 07-30-2025 15:00-0400 SaO2% (BldA) [Mass fraction] 97 % Sancho Woodruff MD Work Phone: [facility] 07-30-2025 15:00-0400 Systolic blood pressure 138 mm[Hg] Sancho Woodruff MD Work Phone: [facility] 07-01-2025 09:36-0400 Body temperature 97.7 [degF] Dr. Sancho Woodruff MD Work Phone: [facility] 07-01-2025 09:36-0400 Diastolic blood pressure 81 mm[Hg] Dr. Sancho Woodruff MD Work Phone: [facility] 07-01-2025 09:36-0400 Heart rate 80 /min Dr. Sancho Woodruff MD Work Phone: [facility] 07-01-2025 09:36-0400 Respiratory rate 18 /min Dr. Sancho Woodruff MD Work Phone: [facility] 07-01-2025 09:36-0400 Systolic blood pressure 147 mm[Hg] Dr. Sancho Woodruff MD Work Phone: [facility] 06-19-2025 09:41-0400 Body height 147.3 cm Wang Borges MD Work Phone: [facility] 06-19-2025 09:41-0400 Body mass index (BMI) [Ratio] 27.17 kg/m2 Wang Borges MD Work Phone: [facility] 06-19-2025 09:41-0400 Body weight 58.97 kg Wang Borges MD Work Phone: [facility] 06-19-2025 09:41-0400 Diastolic blood pressure 80 mm[Hg] Wang Borges MD Work Phone: [facility] 06-19-2025 09:41-0400 Systolic blood pressure 120 mm[Hg] Wang Borges MD Work Phone: [facility] 06-12-2025 12:11-0400 Body height 142.2 cm Tony Casiano DO Work Phone: [facility] 06-12-2025 12:11-0400 Body mass index (BMI) [Ratio] 29.82 kg/m2 Tony Casiano DO Work Phone: [facility] 06-12-2025 12:11-0400 Body weight 60.33 kg Tony Casiano DO Work Phone: [facility] 06-12-2025 12:11-0400 Diastolic blood pressure 62 mm[Hg] Tony Casiano DO Work Phone: [facility] 06-12-2025 12:11-0400 Heart rate 103 /min Tony Casiano DO Work Phone: [facility] 06-12-2025 12:11-0400 Respiratory rate 20 /min Tony Casiano DO Work Phone: [facility] 06-12-2025 12:11-0400 Systolic blood pressure 121 mm[Hg] Tony Casiano DO Work Phone: [facility] 05-27-2025 13:33-0400 Body temperature 99.8 [degF] Dr. Sancho Woodruff MD Work Phone: [facility] 05-27-2025 13:33-0400 Diastolic blood pressure 88 mm[Hg] Dr. Sancho Woodruff MD Work Phone: [facility] 05-27-2025 13:33-0400 Heart rate 86 /min Dr. Sancho Woodruff MD Work Phone: [facility] 05-27-2025 13:33-0400 Respiratory rate 18 /min Dr. Sancho Woodruff MD Work Phone: [facility] 05-27-2025 13:33-0400 Systolic blood pressure 146 mm[Hg] Dr. Sancho Woodruff MD Work Phone: [facility] 04-29-2025 14:17-0400 Body mass index (BMI) [Ratio] 27.8 kg/m2 Dr. Sancho Woodruff MD Work Phone: [facility] 04-29-2025 14:17-0400 Body temperature 97.6 [degF] Dr. Sancho Woodruff MD Work Phone: [facility] 04-29-2025 14:17-0400 Diastolic blood pressure 77 mm[Hg] Dr. Sancho Woodruff MD Work Phone: [facility] 04-29-2025 14:17-0400 Heart rate 45 /min Dr. Sancho Woodruff MD Work Phone: [facility] 04-29-2025 14:17-0400 Respiratory rate 14 /min Dr. Sancho Woodruff MD Work Phone: [facility] 04-29-2025 14:17-0400 Systolic blood pressure 133 mm[Hg] Dr. Sancho Woodruff MD Work Phone: [facility] 04-29-2025 09:40-0400 Body height 143 cm Dariela Garza MD Work Phone: [facility] 04-29-2025 09:40-0400 Body mass index (BMI) [Ratio] 29.5 kg/m2 Dariela Garza MD Work Phone: [facility] 04-29-2025 09:40-0400 Body weight 60.33 kg Dariela Garza MD Work Phone: [facility] Comment on above: Recorded weight from last visit. 04-29-2025 09:40-0400 Diastolic blood pressure 82 mm[Hg] Dariela Garza MD Work Phone: [facility] 04-29-2025 09:40-0400 Heart rate 70 /min Dariela Garza MD Work Phone: [facility] 04-29-2025 09:40-0400 Systolic blood pressure 142 mm[Hg] Dariela Garza MD Work Phone: [facility] 04-22-2025 15:01-0400 Body height 147.[address] Sancho Woodruff MD Work Phone: [facility] 04-22-2025 15:01-0400 Body weight 60.[address] Sancho Woodruff MD Work Phone: [facility] 04-19-2025 10:16-0400 Body height 143 cm Dariela Garza MD Work Phone: [facility] 04-19-2025 10:16-0400 Body mass index (BMI) [Ratio] 29.5 kg/m2 Dariela Garza MD Work Phone: [facility] 04-19-2025 10:16-0400 Body weight 60.33 kg Dariela Garza MD Work Phone: [facility] Comment on above: Recorded weight from last visit. 04-19-2025 10:16-0400 Diastolic blood pressure 80 mm[Hg] Dariela Garza MD Work Phone: [facility] 04-19-2025 10:16-0400 Heart rate 78 /min Dariela Garza MD Work Phone: [facility] 04-19-2025 10:16-0400 Systolic blood pressure 120 mm[Hg] Dariela Garza MD Work Phone: [facility] 04-05-2025 10:38-0400 Body height 143 cm Dariela Garza MD Work Phone: [facility] 04-05-2025 10:38-0400 Body mass index (BMI) [Ratio] 29.63 kg/m2 Dariela Garza MD Work Phone: [facility] 04-05-2025 10:38-0400 Body weight 60.6 kg Dariela Garza MD Work Phone: [facility] 04-05-2025 10:38-0400 Diastolic blood pressure 82 mm[Hg] Dariela Garza MD Work Phone: [facility] 04-05-2025 10:38-0400 Heart rate 81 /min Dariela Garza MD Work Phone: [facility] 04-05-2025 10:38-0400 Systolic blood pressure 142 mm[Hg] Dariela Garza MD Work Phone: [facility] 04-03-2025 11:19-0400 Body mass index (BMI) [Ratio] 28.84 kg/m2 Sancho Woodruff MD Work Phone: [facility] 04-03-2025 11:19-0400 Body weight 58.97 kg Sancho Woodruff MD Work Phone: [facility] 04-03-2025 11:19-0400 Diastolic blood pressure 84 mm[Hg] Sancho Woodruff MD Work Phone: [facility] 04-03-2025 11:19-0400 Heart rate 85 /min Sancho Woodruff MD Work Phone: [facility] 04-03-2025 11:19-0400 SaO2% (BldA) [Mass fraction] 97 % Sancho Woodruff MD Work Phone: [facility] 04-03-2025 11:19-0400 Systolic blood pressure 140 mm[Hg] Sancho Woodruff MD Work Phone: [facility] 02-01-2025 10:08-0400 Body height 147.3 cm Dariela Garza MD Work Phone: [facility] 02-01-2025 10:08-0400 Body mass index (BMI) [Ratio] 27.8 kg/m2 Dariela Garza MD Work Phone: [facility] 02-01-2025 10:08-0400 Body weight 60.33 kg Dariela Garza MD Work Phone: [facility] Comment on above: Recorded weight from last visit. 02-01-2025 10:08-0400 Diastolic blood pressure 82 mm[Hg] Dariela Garza MD Work Phone: [facility] 02-01-2025 10:08-0400 Heart rate 79 /min Dariela Garza MD Work Phone: [facility] 02-01-2025 10:08-0400 Systolic blood pressure 134 mm[Hg] Dariela Garza MD Work Phone: [facility] 01-18-2025 10:18-0400 Body height 147.3 cm Dariela Garza MD Work Phone: [facility] 01-18-2025 10:18-0400 Body mass index (BMI) [Ratio] 27.92 kg/m2 Dariela Garza MD Work Phone: [facility] 01-18-2025 10:18-0400 Body weight 60.6 kg Dariela Garza MD Work Phone: [facility] 01-18-2025 10:18-0400 Diastolic blood pressure 86 mm[Hg] Dariela Garza MD Work Phone: [facility] 01-18-2025 10:18-0400 Heart rate 86 /min Dariela Garza MD Work Phone: [facility] 01-18-2025 10:18-0400 Systolic blood pressure 130 mm[Hg] Dariela Garza MD Work Phone: [facility] 01-01-2025 10:50-0400 Body mass index (BMI) [Ratio] 28.22 kg/m2 Sancho Woodruff MD Work Phone: [facility] 01-01-2025 10:50-0400 Body weight 61.24 kg Sancho Woodruff MD Work Phone: [facility] 01-01-2025 10:50-0400 Diastolic blood pressure 80 mm[Hg] Sancho Woodruff MD Work Phone: [facility] 01-01-2025 10:50-0400 Heart rate 91 /min Sancho Woodruff MD Work Phone: [facility] 01-01-2025 10:50-0400 SaO2% (BldA) [Mass fraction] 99 % Sancho Woodruff MD Work Phone: [facility] 01-01-2025 10:50-0400 Systolic blood pressure 130 mm[Hg] Sancho Woodruff MD Work Phone: [facility] 12-12-2024 11:14-0500 Diastolic blood pressure 92 mm[Hg] Wang Borges MD Work Phone: [facility] 12-12-2024 11:14-0500 Systolic blood pressure 140 mm[Hg] Wang Borges MD Work Phone: [facility] 12-12-2024 11:08-0500 Body height 147.3 cm Wang Borges MD Work Phone: [facility] 12-12-2024 11:08-0500 Body mass index (BMI) [Ratio] 28.42 kg/m2 Wang Borges MD Work Phone: [facility] 12-12-2024 11:08-0500 Body weight 61.69 kg Wang Borges MD Work Phone: [facility] 12-12-2024 11:08-0500 Heart rate 94 /min Wang Borges MD Work Phone: [facility] 12-12-2024 11:08-0500 SaO2% (BldA) [Mass fraction] 95 % Wang Borges MD Work Phone: [facility] 10-30-2024 10:55-0500 Body height 147.3 cm Jose A Green [employer]AL PROGRAM MANAGER Work Phone: [facility] 10-30-2024 10:55-0500 Body mass index (BMI) [Ratio] 28.22 kg/m2 Jose A Green [employer]AL PROGRAM MANAGER Work Phone: [facility] 10-30-2024 10:55-0500 Body weight 61.24 kg Jose A Green [employer]IONAL PROGRAM MANAGER Work Phone: [facility] 10-30-2024 10:55-0500 Diastolic blood pressure 86 mm[Hg] Jose A Green [employer]IONAL PROGRAM MANAGER Work Phone: [facility] 10-30-2024 10:55-0500 Heart rate 86 /min Jose A Green [employer]IONAL PROGRAM MANAGER Work Phone: [facility] 10-30-2024 10:55-0500 Respiratory rate 16 /min Jose A Green [employer]IONAL PROGRAM MANAGER Work Phone: [facility] 10-30-2024 10:55-0500 SaO2% (BldA) [Mass fraction] 97 % Jose A Green [employer]IONAL PROGRAM MANAGER Work Phone: [facility] 10-30-2024 10:55-0500 Systolic blood pressure 127 mm[Hg] Jose A Ornelas ELIJAH Work Phone: [facility] 08-13-2024 14:27-0500 Body height 147.3 cm Sancho Woodruff MD Work Phone: [facility] 08-13-2024 14:27-0500 Body mass index (BMI) [Ratio] 28.22 kg/m2 Sancho Woodruff MD Work Phone: [facility] 08-13-2024 14:27-0500 Body weight 61.24 kg Sancho Woodruff MD Work Phone: [facility] 08-13-2024 14:27-0500 Diastolic blood pressure 80 mm[Hg] Sancho Woodruff MD Work Phone: [facility] 08-13-2024 14:27-0500 Heart rate 107 /min Sancho Woodruff MD Work Phone: [facility] 08-13-2024 14:27-0500 SaO2% (BldA) [Mass fraction] 96 % Sancho Woodruff MD Work Phone: [facility] 08-13-2024 14:27-0500 Systolic blood pressure 128 mm[Hg] Sancho Woodruff MD Work Phone: [facility] 05-11-2024 11:41-0400 Body height 147.3 cm Jaylan Danis DO Work Phone: [facility] 05-11-2024 11:41-0400 Body mass index (BMI) [Ratio] 31.73 kg/m2 Jaylan Danis DO Work Phone: [facility] 05-11-2024 11:41-0400 Body weight 68.86 kg Jaylan Danis DO Work Phone: [facility] 05-11-2024 11:41-0400 Diastolic blood pressure 78 mm[Hg] Jaylan Danis DO Work Phone: [facility] 05-11-2024 11:41-0400 Heart rate 81 /min Jaylan Rodrigezta DO Work Phone: [facility] 05-11-2024 11:41-0400 SaO2% (BldA) [Mass fraction] 94 % Jaylan Tejedatista DO Work Phone: [facility] 05-11-2024 11:41-0400 Systolic blood pressure 124 mm[Hg] Jaylan Rodrigezta DO Work Phone: [facility] 04-16-2024 14:46-0400 Body height 147.3 cm Sancho Woodruff MD Work Phone: [facility] 04-16-2024 14:46-0400 Body mass index (BMI) [Ratio] 31.98 kg/m2 Sancho Woodruff MD Work Phone: [facility] 04-16-2024 14:46-0400 Body weight 69.4 kg Sancho Woodruff MD Work Phone: [facility] 04-16-2024 14:46-0400 Diastolic blood pressure 82 mm[Hg] Sancho Woodruff MD Work Phone: [facility] 04-16-2024 14:46-0400 Heart rate 89 /min Sancho Woodruff MD Work Phone: [facility] 04-16-2024 14:46-0400 SaO2% (BldA) [Mass fraction] 94 % Sancho Woodruff MD Work Phone: [facility] 04-16-2024 14:46-0400 Systolic blood pressure 130 mm[Hg] Sancho Woodruff MD Work Phone: [facility] 03-12-2024 09:52-0400 Body height 147.3 cm Sancho Woodruff MD Work Phone: [facility] 03-12-2024 09:52-0400 Body mass index (BMI) [Ratio] 32.27 kg/m2 Sancho Woodruff MD Work Phone: [facility] 03-12-2024 09:52-0400 Body weight 70.03 kg Sancho Woodruff MD Work Phone: [facility] 03-12-2024 09:52-0400 Diastolic blood pressure 80 mm[Hg] Sancho Woodruff MD Work Phone: [facility] 03-12-2024 09:52-0400 Heart rate 75 /min Sancho Woodruff MD Work Phone: [facility] 03-12-2024 09:52-0400 SaO2% (BldA) [Mass fraction] 97 % Sancho Woodruff MD Work Phone: [facility] 03-12-2024 09:52-0400 Systolic blood pressure 138 mm[Hg] Sancho Woodruff MD Work Phone: [facility] 02-22-2024 10:30-0400 Body height 147.3 cm Jaylan Danis DO Work Phone: [facility] 02-22-2024 10:30-0400 Body mass index (BMI) [Ratio] 30.93 kg/m2 Jaylan Danis DO Work Phone: [facility] 02-22-2024 10:30-0400 Body weight 67.13 kg Jaylan Danis DO Work Phone: [facility] 02-22-2024 10:30-0400 Diastolic blood pressure 84 mm[Hg] Jaylan Danis DO Work Phone: [facility] 02-22-2024 10:30-0400 Heart rate 78 /min Jaylan Danis DO Work Phone: [facility] 02-22-2024 10:30-0400 Respiratory rate 16 /min Jaylan Danis DO Work Phone: [facility] 02-22-2024 10:30-0400 SaO2% (BldA) [Mass fraction] 97 % Jaylan Danis DO Work Phone: [facility] 02-22-2024 10:30-0400 Systolic blood pressure 125 mm[Hg] Jaylan Danis DO Work Phone: [facility] 01-16-2024 14:40-0400 Body height 147.3 cm Sancho Woodruff MD Work Phone: [facility] 01-16-2024 14:40-0400 Body mass index (BMI) [Ratio] 33.02 kg/m2 Sancho Woodruff MD Work Phone: [facility] 01-16-2024 14:40-0400 Body weight 71.67 kg Sancho Woodruff MD Work Phone: [facility] 01-16-2024 14:40-0400 Diastolic blood pressure 78 mm[Hg] Sancho Woodruff MD Work Phone: [facility] 01-16-2024 14:40-0400 Heart rate 95 /min Sancho Woodruff MD Work Phone: [facility] 01-16-2024 14:40-0400 SaO2% (BldA) [Mass fraction] 97 % Sancho Woodruff MD Work Phone: [facility] 01-16-2024 14:40-0400 Systolic blood pressure 126 mm[Hg] Sancho Woodruff MD Work Phone: [facility] 12-21-2023 12:57-0400 Body temperature 98.71 [degF] Jose A Green [employer] PROGRAM MANAGER Work Phone: [facility] 12-21-2023 12:57-0400 Diastolic blood pressure 74 mm[Hg] Jose A Green [employer] PROGRAM MANAGER Work Phone: [facility] 12-21-2023 12:57-0400 Heart rate 73 /min Jose A Green [employer]IONAL PROGRAM MANAGER Work Phone: [facility] 12-21-2023 12:57-0400 SaO2% (BldA) [Mass fraction] 97 % Jose A Green [employer]IONAL PROGRAM MANAGER Work Phone: [facility] 12-21-2023 12:57-0400 Systolic blood pressure 130 mm[Hg] Jose A Green [employer]IONAL PROGRAM MANAGER Work Phone: [facility] 11-15-2023 14:00-0500 Body temperature 98.49 [degF] Jose A Green [employer]IONAL PROGRAM MANAGER Work Phone: [facility] 11-15-2023 14:00-0500 Diastolic blood pressure 76 mm[Hg] Jose A Green [employer]ION[employer] PROGRAM MANAGER Work Phone: [facility] 11-15-2023 14:00-0500 Heart rate 81 /min Jose A Green [employer]IONAL PROGRAM MANAGER Work Phone: [facility] 11-15-2023 14:00-0500 SaO2% (BldA) [Mass fraction] 94 % Jose A Green [employer]IONAL PROGRAM MANAGER Work Phone: [facility] 11-15-2023 14:00-0500 Systolic blood pressure 124 mm[Hg] Jose A Green [employer]IONAL PROGRAM MANAGER Work Phone: [facility] 10-13-2023 13:57-0500 Body height 147.3 cm Sancho Woodruff MD Work Phone: [facility] 10-13-2023 13:57-0500 Body mass index (BMI) [Ratio] 32.25 kg/m2 Sancho Woodruff MD Work Phone: [facility] 10-13-2023 13:57-0500 Body weight 69.99 kg Sancho Woodruff MD Work Phone: [facility] 10-13-2023 13:57-0500 Diastolic blood pressure 80 mm[Hg] Sancho Woodruff MD Work Phone: [facility] 10-13-2023 13:57-0500 Heart rate 100 /min Sancho Woodruff MD Work Phone: [facility] 10-13-2023 13:57-0500 SaO2% (BldA) [Mass fraction] 98 % Sancho Woodruff MD Work Phone: [facility] 10-13-2023 13:57-0500 Systolic blood pressure 130 mm[Hg] Sancho Woodruff MD Work Phone: [facility] 07-18-2023 11:18-0400 Body temperature 97.5 [degF] Dada Gee PA-C Work Phone: [facility] 07-18-2023 11:18-0400 Diastolic blood pressure 82 mm[Hg] Dada Gee PA-C Work Phone: [facility] 07-18-2023 11:18-0400 Heart rate 89 /min Dada Gee PA-C Work Phone: [facility] 07-18-2023 11:18-0400 Respiratory rate 16 /min Dada Gee PA-C Work Phone: [facility] 07-18-2023 11:18-0400 SaO2% (BldA) [Mass fraction] 97 % Dada Gee PA-C Work Phone: [facility] 07-18-2023 11:18-0400 Systolic blood pressure 138 mm[Hg] Dada Gee PA-C Work Phone: [facility] 07-07-2023 14:43-0400 Body height 147.3 cm Sancho Woodruff MD Work Phone: [facility] 07-07-2023 14:43-0400 Body mass index (BMI) [Ratio] 32.35 kg/m2 Sancho Woodruff MD Work Phone: [facility] 07-07-2023 14:43-0400 Body weight 70.22 kg Sancho Woodruff MD Work Phone: [facility] 07-07-2023 14:43-0400 Diastolic blood pressure 60 mm[Hg] Sancho Woodruff MD Work Phone: [facility] 07-07-2023 14:43-0400 Heart rate 69 /min Sancho Woodruff MD Work Phone: [facility] 07-07-2023 14:43-0400 SaO2% (BldA) [Mass fraction] 98 % Sancho Woodruff MD Work Phone: [facility] 07-07-2023 14:43-0400 Systolic blood pressure 122 mm[Hg] Sancho Woodruff MD Work Phone: [facility] 06-15-2023 12:40-0400 Diastolic blood pressure 77 mm[Hg] Shawn Mcmillan PA-C Work Phone: [facility] 06-15-2023 12:40-0400 Heart rate 98 /min Shawn Mcmillan PA-C Work Phone: [facility] 06-15-2023 12:40-0400 Respiratory rate 16 /min Shawn Mcmillan PA-C Work Phone: [facility] 06-15-2023 12:40-0400 SaO2% (BldA) [Mass fraction] 96 % Shawn Mcmillan PA-C Work Phone: [facility] 06-15-2023 12:40-0400 Systolic blood pressure 111 mm[Hg] Shawn Mcmillan PA-C Work Phone: [facility] 06-09-2023 08:25-0400 Body height 147.3 cm Sancho Woodruff MD Work Phone: [facility] 06-09-2023 08:25-0400 Body mass index (BMI) [Ratio] 32.14 kg/m2 Sancho Woodruff MD Work Phone: [facility] 06-09-2023 08:25-0400 Body weight 69.76 kg Sancho Woodruff MD Work Phone: [facility] 06-09-2023 08:25-0400 Diastolic blood pressure 80 mm[Hg] Sancho Woodruff MD Work Phone: [facility] 06-09-2023 08:25-0400 Heart rate 84 /min Sancho Woodruff MD Work Phone: [facility] 06-09-2023 08:25-0400 SaO2% (BldA) [Mass fraction] 98 % Sancho Woodruff MD Work Phone: [facility] 06-09-2023 08:25-0400 Systolic blood pressure 126 mm[Hg] Sancho Woodruff MD Work Phone: [facility] 05-27-2023 12:51-0400 Body temperature 98.1 [degF] Bridger Monique MD Work Phone: [facility] 05-27-2023 12:51-0400 Diastolic blood pressure 78 mm[Hg] Bridger Monique MD Work Phone: [facility] 05-27-2023 12:51-0400 Heart rate 76 /min Bridger Monique MD Work Phone: [facility] 05-27-2023 12:51-0400 Respiratory rate 16 /min Bridger Monique MD Work Phone: [facility] 05-27-2023 12:51-0400 SaO2% (BldA) [Mass fraction] 95 % Bridger Monique MD Work Phone: [facility] 05-27-2023 12:51-0400 Systolic blood pressure 144 mm[Hg] Bridger Monique MD Work Phone: [facility] 05-19-2023 15:44-0400 SaO2% (BldA) [Mass fraction] 100.0 % Bridger Monique MD Work Phone: [facility] 05-19-2023 14:50-0400 Body temperature 97.5 [degF] Bridger Monique MD Work Phone: [facility] 05-19-2023 14:04-0400 Diastolic blood pressure 60 mm[Hg] Bridger Monique MD Work Phone: [facility] 05-19-2023 14:04-0400 Respiratory rate 16 /min Bridger Monique MD Work Phone: [facility] 05-19-2023 14:04-0400 SaO2% (BldA) [Mass fraction] 95 % Bridger Monique MD Work Phone: [facility] 05-19-2023 14:04-0400 Systolic blood pressure 113 mm[Hg] Bridger Monique MD Work Phone: [facility] 05-19-2023 13:10-0400 Heart rate 70 /min Bridger Monique MD Work Phone: [facility] 05-19-2023 07:00-0400 Body height 147.3 cm Bridger Monique MD Work Phone: [facility] 05-19-2023 07:00-0400 Body mass index (BMI) [Ratio] 32.02 kg/m2 Bridger Monique MD Work Phone: [facility] 05-19-2023 07:00-0400 Body weight 69.5 kg Bridger Monique MD Work Phone: [facility] 05-05-2023 07:59-0400 Body height 147.3 cm Burtjoana Diazswathi NAVA Work Phone: [facility] 05-05-2023 07:59-0400 Body mass index (BMI) [Ratio] 30.93 kg/m2 Burt Diazullen ELIJAH Work Phone: [facility] 05-05-2023 07:59-0400 Body weight 67.13 kg Burt Diazullen ELIJAH Work Phone: [facility] Comment on above: verbal 05-05-2023 07:59-0400 Diastolic blood pressure 69 mm[Hg] Burt Diazullen REGIONAL PROGRAM MANAGER Work Phone: [facility] 05-05-2023 07:59-0400 Heart rate 71 /min Burt Diazullen ELIJAH Work Phone: [facility] 05-05-2023 07:59-0400 SaO2% (BldA) [Mass fraction] 96 % Burt Diazullen ELIJAH Work Phone: [facility] 05-05-2023 07:59-0400 Systolic blood pressure 131 mm[Hg] Burt Vasquez CNP Work Phone: [facility] 04-14-2023 14:16-0400 Body temperature 98.29 [degF] Bridger Monique MD Work Phone: [facility] 04-14-2023 14:16-0400 Diastolic blood pressure 70 mm[Hg] Bridger Monique MD Work Phone: [facility] 04-14-2023 14:16-0400 Heart rate 71 /min Bridger Monique MD Work Phone: [facility] 04-14-2023 14:16-0400 SaO2% (BldA) [Mass fraction] 95 % Bridger Monique MD Work Phone: [facility] 04-14-2023 14:16-0400 Systolic blood pressure 120 mm[Hg] Bridger Monique MD Work Phone: [facility] 04-11-2023 13:30-0400 Body height 147.3 cm Wang Borges MD Work Phone: [facility] 04-11-2023 13:30-0400 Body mass index (BMI) [Ratio] 33.23 kg/m2 Wang Borges MD Work Phone: [facility] 04-11-2023 13:30-0400 Body weight 72.12 kg Wang Borges MD Work Phone: [facility] 04-11-2023 13:30-0400 Diastolic blood pressure 86 mm[Hg] Wang Borges MD Work Phone: [facility] Comment on above: Machine BP 04-11-2023 13:30-0400 Heart rate 84 /min Wang Borges MD Work Phone: [facility] 04-11-2023 13:30-0400 SaO2% (BldA) [Mass fraction] 97 % Wang Borges MD Work Phone: [facility] Comment on above: On room air 04-11-2023 13:30-0400 Systolic blood pressure 139 mm[Hg] Wang Borges MD Work Phone: [facility] Comment on above: Machine BP 04-05-2023 15:44-0400 Body height 147.3 cm Sancho Woodruff MD Work Phone: [facility] 04-05-2023 15:44-0400 Body mass index (BMI) [Ratio] 31.68 kg/m2 Sancho Woodruff MD Work Phone: [facility] 04-05-2023 15:44-0400 Body weight 68.77 kg Sancho Woodruff MD Work Phone: [facility] 04-05-2023 15:44-0400 Diastolic blood pressure 68 mm[Hg] Sancho Woodruff MD Work Phone: [facility] 04-05-2023 15:44-0400 Heart rate 87 /min Sancho Woodruff MD Work Phone: [facility] 04-05-2023 15:44-0400 SaO2% (BldA) [Mass fraction] 98 % Sancho Woodruff MD Work Phone: [facility] 04-05-2023 15:44-0400 Systolic blood pressure 108 mm[Hg] Sancho Woodruff MD Work Phone: [facility] 03-28-2023 11:10-0400 Body height 147.32 cm Sancho Woodruff Work Phone: [facility] Work Phone: 03-28-2023 11:10-0400 Body mass index (BMI) [Ratio] 31.25 kg/m2 Sancho Woodruff Work Phone: [facility] Work Phone: 03-28-2023 11:10-0400 Body surface area Derived from formula 1.61 m2 Sancho Woodurff Work Phone: [facility] Work Phone: 03-28-2023 11:10-0400 Body weight 67.81 kg Sancho Woodruff Work Phone: [facility] Work Phone: 03-28-2023 11:10-0400 Diastolic blood pressure 100 mm[Hg] Sancho Woodruff Work Phone: [facility] Work Phone: 03-28-2023 11:10-0400 Systolic blood pressure 140 mm[Hg] Sancho Becker Stencel Work Phone: [facility] Work Phone: 03-24-2023 10:47-0400 Body height 147.32 cm Sancho Becker Stencel Work Phone: [facility] Work Phone: 03-24-2023 10:47-0400 Body mass index (BMI) [Ratio] 33.06 kg/m2 Sancho Becker Stencel Work Phone: [facility] Work Phone: 03-24-2023 10:47-0400 Body surface area Derived from formula 1.65 m2 Sancho Jaracel Work Phone: [facility] Work Phone: 03-24-2023 10:47-0400 Body weight 71.76 kg Sancho Becker Stencel Work Phone: [facility] Work Phone: 03-24-2023 10:47-0400 Diastolic blood pressure 86 mm[Hg] Sancho Becker Stencel Work Phone: [facility] Work Phone: 03-24-2023 10:47-0400 Heart rate 66 /min Sancho D Stencel Work Phone: [facility] Work Phone: 03-24-2023 10:47-0400 Respiratory rate 20 /min Sancho D Stencel Work Phone: [facility] Work Phone: 03-24-2023 10:47-0400 Systolic blood pressure 137 mm[Hg] Sancho D Stencel Work Phone: [facility] Work Phone: 03-04-2023 11:58-0400 Body height 147.1 cm Maria Teresa Epperson MD Work Phone: [facility] 03-04-2023 11:58-0400 Body mass index (BMI) [Ratio] 31.29 kg/m2 Maria Teresa Epperson MD Work Phone: [facility] 03-04-2023 11:58-0400 Body weight 67.7 kg Maria Teresa Epperson MD Work Phone: [facility] 02-18-2023 09:11-0400 Body height 147.1 cm Maria Teresa Epperson MD Work Phone: [facility] 02-18-2023 09:11-0400 Body mass index (BMI) [Ratio] 32.77 kg/m2 Maria Teresa Epperson MD Work Phone: [facility] 02-18-2023 09:11-0400 Body weight 70.9 kg Maria Teresa Epperson MD Work Phone: [facility] 02-17-2023 14:56-0400 Body height 147.3 cm Sancho Woodruff MD Work Phone: [facility] 02-17-2023 14:56-0400 Body mass index (BMI) [Ratio] 32.75 kg/m2 Sancho Woodruff MD Work Phone: [facility] 02-17-2023 14:56-0400 Body weight 71.08 kg Sancho Woodruff MD Work Phone: [facility] 02-17-2023 14:56-0400 Diastolic blood pressure 84 mm[Hg] Sancho Woodruff MD Work Phone: [facility] 02-17-2023 14:56-0400 Heart rate 88 /min Sancho Woodruff MD Work Phone: [facility] 02-17-2023 14:56-0400 SaO2% (BldA) [Mass fraction] 95 % Sancho Woodruff MD Work Phone: [facility] 02-17-2023 14:56-0400 Systolic blood pressure 124 mm[Hg] Sancho Woodruff MD Work Phone: [facility] 01-21-2023 12:16-0400 Body temperature 97.34 [degF] Sancho Woodruff Other Phone: [facility] 01-21-2023 12:16-0400 Diastolic blood pressure 59 mm[Hg] Sancho Woodruff Other Phone: [facility] 01-21-2023 12:16-0400 Heart rate 65 /min Sancho Woodruff Other Phone: [facility] 01-21-2023 12:16-0400 SaO2% (BldA) [Mass fraction] 97 % Sancho Woodruff Other Phone: [facility] 01-21-2023 12:16-0400 Systolic blood pressure 103 mm[Hg] Sancho Woodruff Other Phone: [facility] 01-06-2023 13:38-0400 Body height 147.32 cm Sancho Woodruff Work Phone: [facility] Work Phone: 01-06-2023 13:38-0400 Diastolic blood pressure 85 mm[Hg] Sancho Woodruff Work Phone: [facility] Work Phone: 01-06-2023 13:38-0400 Heart rate 80 /min Sancho Jaracel Work Phone: [facility] Work Phone: 01-06-2023 13:38-0400 Respiratory rate 20 /min Sancho Jaracel Work Phone: [facility] Work Phone: 01-06-2023 13:38-0400 Systolic blood pressure 150 mm[Hg] Sancho Woodruff Work Phone: [facility] Work Phone: 12-29-2022 13:35-0400 Body height 147.32 cm Sancho Becker Stencel Work Phone: [facility] Work Phone: 12-29-2022 13:35-0400 Body mass index (BMI) [Ratio] 33.02 kg/m2 Sancho Becker Stencel Work Phone: [facility] Work Phone: 12-29-2022 13:35-0400 Body surface area Derived from formula 1.65 m2 Sancho Becker Stencel Work Phone: [facility] Work Phone: 12-29-2022 13:35-0400 Body weight 71.67 kg Sancho Becker Stencel Work Phone: [facility] Work Phone: 12-29-2022 13:35-0400 Diastolic blood pressure 88 mm[Hg] Sancho Becker Stencel Work Phone: [facility] Work Phone: 12-29-2022 13:35-0400 Respiratory rate 20 /min Sancho Becker Stencel Work Phone: [facility] Work Phone: 12-29-2022 13:35-0400 Systolic blood pressure 144 mm[Hg] Sancho Becker Stencel Work Phone: [facility] Work Phone: 11-18-2022 14:46-0500 Body height 147.32 cm Sancho Becker Stencel Work Phone: [facility] Work Phone: 11-18-2022 14:46-0500 Body mass index (BMI) [Ratio] 34.77 kg/m2 Sancho Becker Stencel Work Phone: [facility] Work Phone: 11-18-2022 14:46-0500 Body surface area Derived from formula 1.68 m2 Sancoh Jaracel Work Phone: [facility] Work Phone: 11-18-2022 14:46-0500 Body weight 75.47 kg Sancho Matthias Estefanicel Work Phone: [facility] Work Phone: 11-18-2022 14:46-0500 Diastolic blood pressure 62 mm[Hg] Sancho Matthias Stencel Work Phone: [facility] Work Phone: 11-18-2022 14:46-0500 Heart rate 74 /min Sancho Matthias Estefanicel Work Phone: [facility] Work Phone: 11-18-2022 14:46-0500 SaO2% (BldA) [Mass fraction] 97 % Sancho Jaracel Work Phone: [facility] Work Phone: 11-18-2022 14:46-0500 Systolic blood pressure 128 mm[Hg] Sancho Becker Stencel Work Phone: [facility] Work Phone: 11-04-2022 15:12-0500 Body height 147.32 cm Sancho Matthias Estefanicel Work Phone: [facility] Work Phone: 11-04-2022 15:12-0500 Body mass index (BMI) [Ratio] 34.76 kg/m2 Sancho Becker Stencel Work Phone[facility] Work Phone: 11-04-2022 15:12-0500 Body surface area Derived from formula 1.68 m2 Sancho Jaracel Work Phone: [facility] Work Phone: 11-04-2022 15:12-0500 Body weight 75.44 kg Sancho Jaracel Work Phone: [facility] Work Phone: 11-04-2022 15:12-0500 Diastolic blood pressure 80 mm[Hg] Sancho Becker Stencel Work Phone: [facility] Work Phone: 11-04-2022 15:12-0500 Heart rate 75 /min Sancho Jaracel Work Phone: [facility] Work Phone: 11-04-2022 15:12-0500 SaO2% (BldA) [Mass fraction] 97 % Sancho Jaracel Work Phone: [facility] Work Phone: 11-04-2022 15:12-0500 Systolic blood pressure 130 mm[Hg] Sancho Becker Stencel Work Phone: [facility] Work Phone: 09-09-2022 16:41-0500 Diastolic blood pressure 86 mm[Hg] Sancho Estefanicel Other Phone: [facility] 09-09-2022 16:41-0500 Heart rate 70 /min Sancho Stencel Other Phone: [facility] 09-09-2022 16:41-0500 Respiratory rate 18 /min Sancho Stencel Other Phone: [facility] 09-09-2022 16:41-0500 SaO2% (BldA) [Mass fraction] 95 % Sancho Stencel Other Phone: [facility] 09-09-2022 16:41-0500 Systolic blood pressure 153 mm[Hg] Sancho Stencel Other Phone: [facility] 09-09-2022 12:24-0500 Body height 147.3 cm Sancho Woodruff Other Phone: [facility] 09-09-2022 12:24-0500 Body temperature 97.34 [degF] Sancho Woodruff Other Phone: [facility] 09-09-2022 12:24-0500 Body weight 72.7 kg Sancho Woodruff Other Phone: [facility] 08-03-2022 15:57-0400 Body height 147.32 cm Sancho Woodruff Work Phone: [facility] Work Phone: 08-03-2022 15:57-0400 Body mass index (BMI) [Ratio] 34.52 kg/m2 Sancho Woodruff Work Phone: [facility] Work Phone: 08-03-2022 15:57-0400 Body surface area Derived from formula 1.68 m2 Sancho Woodruff Work Phone: [facility] Work Phone: 08-03-2022 15:57-0400 Body weight 74.93 kg Sancho Woodruff Work Phone: [facility] Work Phone: 08-03-2022 15:57-0400 Diastolic blood pressure 78 mm[Hg] Sancho Woodruff Work Phone: [facility] Work Phone: 08-03-2022 15:57-0400 Heart rate 67 /min Sancho Woodruff Work Phone: [facility] Work Phone: 08-03-2022 15:57-0400 SaO2% (BldA) [Mass fraction] 96 % Sancho Woodruff Work Phone: [facility] Work Phone: 08-03-2022 15:57-0400 Systolic blood pressure 126 mm[Hg] Sancho Woodruff Work Phone: [facility] Work Phone: 05-25-2022 08:26-0400 Body height 147.32 cm Sancho Woodruff Work [...] [facility] Work Phone: 05-25-2022 08:26-0400 Systolic blood pressure 128 mm[Hg] Sancho Jaracel Work Phone: [facility] Work Phone: 05-17-2022 15:03-0400 Body height 147.32 cm Sancho Jaracel Work Phone: [facility] Work Phone: 05-17-2022 15:03-0400 Body mass index (BMI) [Ratio] 33.7 kg/m2 Sancho Jaracel Work Phone: [facility] Work Phone: 05-17-2022 15:03-0400 Body surface area Derived from formula 1.66 m2 Sancho Jaracel Work Phone: [facility] Work Phone: 05-17-2022 15:03-0400 Body weight 73.14 kg Sancho Jaracel Work Phone: [facility] Work Phone: 05-17-2022 15:03-0400 Diastolic blood pressure 72 mm[Hg] Sancho Jaracel Work Phone: [facility] Work Phone: 05-17-2022 15:03-0400 Heart rate 80 /min Sancho Jaracel Work Phone: [facility] Work Phone: 05-17-2022 15:03-0400 SaO2% (BldA) [Mass fraction] 94 % Sancho Jaracel Work Phone: [facility] Work Phone: 05-17-2022 15:03-0400 Systolic blood pressure 124 mm[Hg] Sancho Becker Stencel Work Phone: [facility] Work Phone: 05-04-2022 09:33-0400 Body height 147.32 cm Sancho Jaracel Work Phone: [facility] Work Phone: 05-04-2022 09:33-0400 Body mass index (BMI) [Ratio] 33.9 kg/m2 Sancho Woodruff Work Phone: [facility] Work Phone: 05-04-2022 09:33-0400 Body surface area Derived from formula 1.67 m2 Sancho Woodruff Work Phone: [facility] Work Phone: 05-04-2022 09:33-0400 Body weight 73.57 kg Sancho Woodruff Work Phone: [facility] Work Phone: 05-04-2022 09:33-0400 Diastolic blood pressure 88 mm[Hg] Sancho Woodruff Work Phone: [facility] Work Phone: 05-04-2022 09:33-0400 Heart rate 72 /min Sancho Woodruff Work Phone: [facility] Work Phone: 05-04-2022 09:33-0400 SaO2% (BldA) [Mass fraction] 97 % Sancho Woodruff Work Phone: [facility] Work Phone: 05-04-2022 09:33-0400 Systolic blood pressure 130 mm[Hg] Sancho Woodruff Work Phone: [facility] Work Phone: 03-09-2022 09:39-0400 Diastolic blood pressure 72 mm[Hg] Wang Borges MD Work Phone: [facility] 03-09-2022 09:39-0400 Systolic blood pressure 136 mm[Hg] Wang Borges MD Work Phone: [facility] 03-09-2022 09:33-0400 Body height 147.3 cm Wang Borges MD Work Phone: [facility] 03-09-2022 09:33-0400 Body mass index (BMI) [Ratio] 34.28 kg/m2 Wang Borges MD Work Phone: [facility] 03-09-2022 09:33-0400 Body weight 74.39 kg Wang Borges MD Work Phone: [facility] 03-09-2022 09:33-0400 Heart rate 73 /min Wang Borges MD Work Phone: [facility] 03-09-2022 09:33-0400 SaO2% (BldA) [Mass fraction] 95 % Wang Borges MD Work Phone: [facility] 02-03-2022 10:13-0400 Body height 147.32 cm Sancho Woodruff Work Phone: [facility] Work Phone: 02-03-2022 10:13-0400 Body mass index (BMI) [Ratio] 33.87 kg/m2 Sancho Woodruff Work Phone: [facility] Work Phone: 02-03-2022 10:13-0400 Body surface area Derived from formula 1.67 m2 Sancho Woodruff Work Phone: [facility] Work Phone: 02-03-2022 10:13-0400 Body weight 73.51 kg Sancho Woodruff Work Phone: [facility] Work Phone: 02-03-2022 10:13-0400 Diastolic blood pressure 76 mm[Hg] Sancho Matthias Stencel Work Phone: [facility] Work Phone: 02-03-2022 10:13-0400 Heart rate 68 /min Sancho Becker Estefanicel Work Phone: [facility] Work Phone: 02-03-2022 10:13-0400 SaO2% (BldA) [Mass fraction] 97 % Sancho Jaracel Work Phone: [facility] Work Phone: 02-03-2022 10:13-0400 Systolic blood pressure 136 mm[Hg] Sancho Jaracel Work Phone: [facility] Work Phone: 01-27-2022 09:15-0400 Body height 147.3 cm Christine Voss CNP Work Phone: [facility] 01-27-2022 09:15-0400 Body mass index (BMI) [Ratio] 33.02 kg/m2 Christine Voss CNP Work Phone: [facility] 01-27-2022 09:15-0400 Body weight 71.67 kg Christine Voss CNP Work Phone: [facility] 01-04-2022 08:36-0400 Body height 147.32 cm Sancho Jaracel Work Phone: [facility] Work Phone: 01-04-2022 08:36-0400 Body mass index (BMI) [Ratio] 34.28 kg/m2 Sancho Jaracel Work Phone: [facility] Work Phone: 01-04-2022 08:36-0400 Body surface area Derived from formula 1.67 m2 Sancho Jaracel Work Phone: [facility] Work Phone: 01-04-2022 08:36-0400 Body weight 74.39 kg Sancho Becker Stencel Work Phone: [facility] Work Phone: 01-04-2022 08:36-0400 Diastolic blood pressure 70 mm[Hg] Sancho Becker Stencel Work Phone: [facility] Work Phone: 01-04-2022 08:36-0400 Heart rate 69 /min Sancho Woodruff Work Phone: [facility] Work Phone: 01-04-2022 08:36-0400 SaO2% (BldA) [Mass fraction] 96 % Sancho Woodruff Work Phone: [facility] Work Phone: 01-04-2022 08:36-0400 Systolic blood pressure 134 mm[Hg] Sancho Woodruff Work Phone: [facility] Work Phone: 11-05-2021 10:03-0500 Body height 147.32 cm Sancho Woodruff Work Phone: [facility] Work Phone: 11-05-2021 10:03-0500 Body mass index (BMI) [Ratio] 33.96 kg/m2 Sancho Woodruff Work Phone: [facility] Work Phone: 11-05-2021 10:03-0500 Body surface area Derived from formula 1.67 m2 Sancho Woodruff Work Phone: [facility] Work Phone: 11-05-2021 10:03-0500 Body temperature 96.9 [degF] Sancho Woodruff Work Phone: [facility] Work Phone: 11-05-2021 10:03-0500 Body weight 73.71 kg Sancho Woodruff Work Phone: [facility] Work Phone: 11-05-2021 10:03-0500 Diastolic blood pressure 88 mm[Hg] Sancho Woodruff Work Phone: [facility] Work Phone: 11-05-2021 10:03-0500 Heart rate 74 /min Sancho Woodruff Work Phone: [facility] Work Phone: 11-05-2021 10:03-0500 SaO2% (BldA) [Mass fraction] 97 % Sancho Woodruff Work Phone: [facility] Work Phone: 11-05-2021 10:03-0500 Systolic blood pressure 164 mm[Hg] Sancho Woodruff Work Phone: [facility] Work Phone: 08-07-2021 10:55-0400 Body height 147.32 cm Sancho Woodruff Work Phone: [facility] Work Phone: 08-07-2021 10:55-0400 Body mass index (BMI) [Ratio] 33.44 kg/m2 Sancho Woodruff Work Phone: [facility] Work Phone: 08-07-2021 10:55-0400 Body surface area Derived from formula 1.66 m2 Sancho Woodruff Work Phone: [facility] Work Phone: 08-07-2021 10:55-0400 Body temperature 97.1 [degF] Sancho Woodruff Work Phone: [facility] Work Phone: 08-07-2021 10:55-0400 Body weight 72.58 kg Sancho Woodruff Work Phone: [facility] Work Phone: 08-07-2021 10:55-0400 Diastolic blood pressure 82 mm[Hg] Sancho Woodruff Work Phone: [facility] Work Phone: 08-07-2021 10:55-0400 Heart rate 82 /min Sancho Woodruff Work Phone: [facility] Work Phone: 08-07-2021 10:55-0400 SaO2% (BldA) [Mass fraction] 97 % Sancho Woodruff Work Phone: [facility] Work Phone: 08-07-2021 10:55-0400 Systolic blood pressure 136 mm[Hg] Sancho Woodruff Work Phone: [facility] Work Phone: 08-05-2021 11:10-0400 Body temperature 97.3 [degF] Ricky Bassett Jr., DPM Work Phone: [facility] 08-05-2021 11:10-0400 Diastolic blood pressure 87 mm[Hg] Ricky Bassett Jr., DPM Work Phone: [facility] 08-05-2021 11:10-0400 Heart rate 72 /min Ricky Bassett Jr., DPM Work Phone: [facility] 08-05-2021 11:10-0400 Systolic blood pressure 145 mm[Hg] Ricky Bassett Jr., DPM Work Phone: [facility] 05-06-2021 10:49-0400 Body height 147.32 cm Sancho Woodruff Work Phone: [facility] Work Phone: 05-06-2021 10:49-0400 Body mass index (BMI) [Ratio] 33.56 kg/m2 Sancho Woodruff Work Phone: [facility] Work Phone: 05-06-2021 10:49-0400 Body surface area Derived from formula 1.66 m2 Sancho Woodruff Work Phone: [facility] Work Phone: 05-06-2021 10:49-0400 Body temperature 97.3 [degF] Sancho Jaracel Work Phone: [facility] Work Phone: 05-06-2021 10:49-0400 Body weight 72.83 kg Sancho Jaracel Work Phone: [facility] Work Phone: 05-06-2021 10:49-0400 Diastolic blood pressure 68 mm[Hg] Sancho Becker Stencel Work Phone: [facility] Work Phone: 05-06-2021 10:49-0400 Heart rate 84 /min Sancho Jaracel Work Phone: [facility] Work Phone: 05-06-2021 10:49-0400 SaO2% (BldA) [Mass fraction] 97 % Sancho Jaracel Work Phone: [facility] Work Phone: 05-06-2021 10:49-0400 Systolic blood pressure 118 mm[Hg] Sancho Jaracel Work Phone: [facility] Work Phone: 11-19-2020 10:15-0500 BMI (Body Mass Index) 33.02 kg/m2 [facility] 11-19-2020 10:15-0500 Body weight 71.67 kg [facility] 11-19-2020 10:15-0500 BP Diastolic 77 mm[Hg] [facility] 11-19-2020 10:15-0500 BP Systolic 136 mm[Hg] [facility] 11-19-2020 10:15-0500 Height 147.3 cm [facility] 11-19-2020 10:15-0500 Pulse (Heart Rate) 77 /min [facility] 11-19-2020 10:15-0500 Pulse Oximetry 98 % Wang [facility] 02-12-2020 10:06-0400 BP Diastolic 57 mm[Hg] [facility] 02-12-2020 10:06-0400 BP Systolic 113 mm[Hg] [facility] 02-12-2020 10:06-0400 Pulse (Heart Rate) 52 /min [facility] 02-12-2020 10:06-0400 Pulse Oximetry 97 % [facility] 02-12-2020 10:06-0400 Respiratory Rate 18 /min [facility] 02-12-2020 07:59-0400 BMI (Body Mass Index) 32.6 kg/m2 [facility] 02-12-2020 07:59-0400 Body Temperature 98.1 [degF] [facility] 02-12-2020 07:59-0400 Body weight 70.76 kg [facility] 02-12-2020 07:59-0400 Height 147.3 cm [facility] 11-30-2019 12:02-0500 Body Temperature 97.81 [degF] Dada Allen [facility] 11-30-2019 12:02-0500 BP Diastolic 82 mm[Hg] Dada Allen [facility] 11-30-2019 12:02-0500 BP Systolic 132 mm[Hg] Dada Allen [facility] 11-30-2019 12:02-0500 Pulse (Heart Rate) 80 /min Dada Allen [facility] 11-30-2019 12:02-0500 Pulse Oximetry 97 % Dada Allen [facility] 11-30-2019 12:02-0500 Respiratory Rate 16 /min Dada Hathaway [facility] 11-29-2019 14:16-0500 BMI (Body Mass Index) 34.19 kg/m2 Dada Hathaway [facility] 11-29-2019 14:16-0500 Body weight 74.2 kg Dada Hathaway [facility] 11-29-2019 14:16-0500 Height 147.3 cm Dada Hathaway [facility] 11-20-2019 10:20-0500 BMI (Body Mass Index) 34.69 kg/m2 [facility] 11-20-2019 10:20-0500 Body weight 75.3 kg [facility] 11-20-2019 10:20-0500 BP Diastolic 94 mm[Hg] [facility] 11-20-2019 10:20-0500 BP Systolic 149 mm[Hg] [facility] 11-20-2019 10:20-0500 Height 147.3 cm [facility] 11-20-2019 10:20-0500 Pulse (Heart Rate) 63 /min [facility] 11-14-2019 11:29-0500 BMI (Body Mass Index) 34.8 kg/m2 [facility] 11-14-2019 11:29-0500 Body weight 75.52 kg [facility] 11-14-2019 11:29-0500 BP Diastolic 82 mm[Hg] [facility] 11-14-2019 11:29-0500 BP Systolic 131 mm[Hg] [facility] 11-14-2019 11:29-0500 Height 147.3 cm [facility] 11-14-2019 11:29-0500 Pulse (Heart Rate) 73 /min [facility] 11-14-2019 11:29-0500 Pulse Oximetry 96 % [facility] 11-06-2019 14:39-0500 BMI (Body Mass Index) 34.44 kg/m2 [facility] 11-06-2019 14:39-0500 Body weight 74.75 kg [facility] 11-06-2019 14:39-0500 BP Diastolic 56 mm[Hg] [facility] 11-06-2019 14:39-0500 BP Systolic 114 mm[Hg] [facility] 11-06-2019 14:39-0500 Height 147.3 cm [facility] 11-06-2019 14:39-0500 Pulse (Heart Rate) 56 /min [facility] 11-06-2019 14:39-0500 Pulse Oximetry 96 % [facility] Encounters Encounter Date Encounter Type Care Provider Facility Start: 08-26-2025 [facility] Facility:[facility] Start: 08-14-2025 ambulatory [facility] Facility:[facility] Start: 08-12-2025 [facility] Start: 08-12-2025 ambulatory [facility] Start: 08-05-2025 End: 08-09-2025 ambulatory [facility] Facility:[facility] Start: 08-02-2025 End: 08-02-[address] [facility] Start: 07-31-2025 End: 07-31-2025 Patient encounter procedure Dariela Garza MD Work Phone: [facility] Comment on above: Arrived Start: 07-31-2025 End: 07-31-[address] [facility] Start: 07-30-2025 End: 07-30-2025 Office outpatient visit 15 minutes Sancho Woodruff MD Work Phone: [facility] Comment on above: Wound of sacral rebecca on, sequela (Primary Dx); DDD (degenerative disc disease), lumbosacral; Lumbar stenosis with neurogenic claudication; Closed fracture of sacrum, unspecified portion of sacrum, initial encounter (Multi); AF (paroxysmal atrial fibrillation) (Multi) Start: 07-30-2025 End: 07-30-2025 ambulatory [facility] Start: 07-29-2025 End: 07-29-2025 ambulatory [facility] Start: 07-26-2025 End: 07-26-2025 ambulatory [facility] Start: 07-19-2025 End: 07-19-2025 ambulatory [facility] Start: 07-17-2025 End: 07-17-2025 ambulatory [facility] Start: 07-15-2025 ambulatory Sylvia [facility] Start: 07-12-2025 End: 07-12-2025 ambulatory [facility] Start: 07-08-2025 End: 07-08-2025 ambulatory [facility] Start: 07-05-2025 End: 07-05-2025 ambulatory [facility] Start: 07-02-2025 Non-patient / Non-visit Dr. Sylvia slaughter MD -[facility] Start: 07-01-2025 End: 07-09-[address] Sancho Woodruff MD Work Phone: [facility] Start: 07-01-2025 End: 07-09-[address] [facility] Work Phone: Start: 06-28-[address] Sylvia Cool MD -Cat Scan [facility] Work Phone: Start: 06-28-2025 ambulatory Sylvia Cool Facility:[facility] Start: 06-24-2025 End: 06-24-2025 ambulatory [facility] Start: 06-21-2025 End: 06-25-2025 Refill Wang Borges MD Work Phone: [facility] Comment on above: Medication Refill (P ropafenone ) Start: 06-19-2025 End: 06-19-2025 Patient encounter status Wang Borges MD Work Phone: [facility] Start: 06-19-2025 End: 06-19-2025 Telemedicine consultation with patient Wang Borges MD Work Phone: [facility] Comment on above: 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 Sylvia slaughter MD -[facility] Start: 06-17-2025 ambulatory [place] [facility] Start: 06-14-2025 End: 06-14-2025 ambulatory [facility] Start: 06-12-2025 End: 06-12-2025 Office outpatient new 30 minutes Tony Boothe Oh DO Work Phone: [facility] Comment on above: Lumbar stenosis with neurogenic claudication (Primary Dx); Lumbar facet arthropathy; Chronic pain syndrome; Myofascial pain Start: 06-12-2025 End: 06-12-[address] [facility] Start: 06-12-2025 End: 06-12-2025 ambulatory [facility] Start: 06-07-2025 End: 06-07-2025 ambulatory [facility] Start: 06-05-2025 End: 06-05-2025 ambulatory [facility] Start: 06-03-2025 End: 06-03-2025 ambulatory [facility] Start: 05-31-2025 End: 06-03-2025 ambulatory [facility] Start: 05-30-2025 End: 05-30-2025 ambulatory [facility] Start: 05-27-2025 Non-patient / Non-visit Dr. Sylvia slaughter MD -[facility] Start: 05-27-2025 End: 06-09-[address] Sancho Woodruff MD Work Phone: [facility] Start: 05-27-2025 End: 06-09-[address] Sylvia Cool MD -[facility] Work Phone: Start: 05-24-2025 End: 05-24-2025 ambulatory [facility] Start: 05-22-2025 End: 05-22-2025 ambulatory [facility] Start: 05-20-2025 Non-patient / Non-visit Dr. Pacheco PIERRE -[facility] Start: 05-17-2025 End: 05-17-2025 ambulatory [facility] Start: 05-15-2025 End: 05-15-2025 ambulatory [facility] Start: 05-13-2025 End: 05-13-2025 ambulatory [facility] Start: 05-10-2025 End: 05-10-2025 ambulatory [facility] Start: 05-08-2025 End: 05-08-2025 ambulatory [facility] Start: 05-07-2025 End: 05-07-2025 ambulatory [facility] Start: 05-06-2025 End: 05-06-2025 ambulatory [facility] Start: 05-03-2025 End: 05-03-2025 ambulatory [facility] Start: 04-30-2025 Non-patient / Non-visit Dr. Sylvia slaughter MD -[facility] Start: 04-29-2025 End: 05-09-[address] Sylvia Cool MD -[facility] Work Phone: Start: 04-29-2025 Non-patient / Non-visit Dr. Sylvia slaughter MD -[facility] Start: 04-29-2025 End: 04-29-2025 Office outpatient visit 15 minutes Dariela Garza MD Work Phone: [facility] Comment on above: LUQ pain (Primary Dx ) Start: 04-29-2025 End: 05-09-[address] Sancho Woodruff MD Work Phone: [facility] Start: 04-26-2025 End: 04-26-2025 ambulatory [facility] Start: 04-25-2025 End: 04-25-2025 ambulatory [facility] Start: 04-24-2025 End: 04-24-2025 ambulatory [facility] Start: 04-23-2025 End: 04-23-2025 [facility] Start: 04-23-2025 Non-patient / Non-visit Dr. Sylvia slaughter MD -[facility] Start: 04-22-2025 ambulatory Sylvia Cool Facility:[facility] Start: 04-22-2025 Non-patient / Non-visit Dr. Sylvia slaughter MD -[facility] Start: 04-19-2025 End: 04-19-2025 Office outpatient visit 15 minutes Dariela Garza MD Work Phone: [facility] Comment on above: Skin ulcer, unspecif ied ulcer stage (Multi) (Primary Dx) Start: 04-19-2025 End: 04-19-[address] [facility] Start: 04-17-2025 End: 04-17-2025 Subsequent hospital visit by physician Taurus Lozano [address] [place] [address] Comment on above: LUQ pain Start: 04-17-2025 End: 04-17-[address] [facility] Start: 04-15-2025 End: 04-15-[address] [facility] Start: 04-10-2025 End: 04-10-2025 [facility] Start: 04-05-2025 End: 04-05-2025 [facility] Ambulatory Start: 04-05-2025 End: 04-05-2025 Office outpatient visit 15 minutes Dariela Garza MD Work Phone: [facility] Comment on above: Skin ulcer, unspecif ied ulcer stage (Multi) (Primary Dx) Start: 04-03-2025 End: 04-03-2025 Assay of hemosiderin, quant Sancho Woodruff MD Work Phone: [facility] Work Phone: Start: 04-03-2025 End: 04-03-2025 Office outpatient visit 25 minutes Sancho Woodruff MD Work Phone: [facility] Comment on above: Lumbar stenosis with neurogenic claudication (Primary Dx); LUQ pain; Controlled drug dependence (Multi); Routine general medical examination at health care facility; Skin ulcer, unspecified ulcer stage (Multi); Closed fracture of sacrum, unspecified portion of sacrum, initial encounter (Multi); AF (paroxysmal atrial fibrillation) (Multi); Mixed hyperlipidemia; Acquired hypothyroidism Start: 04-03-2025 End: 04-03-2025 [facility] Start: 04-01-2025 End: 04-01-2025 [facility] Start: 03-29-2025 End: 03-29-2025 [facility] Start: 03-27-2025 End: 03-27-2025 [facility] Start: 03-22-2025 End: 03-22-2025 [facility] Start: 03-20-2025 End: 03-20-2025 [facility] Start: 03-15-2025 End: 03-15-2025 [facility] Start: 03-13-2025 End: 03-13-2025 [facility] Start: 03-11-2025 End: 03-11-2025 [facility] Start: 03-06-2025 End: 03-06-2025 [facility] Start: 03-01-2025 End: 03-01-2025 [facility] Start: 02-27-2025 End: 02-27-2025 [facility] Start: 02-25-2025 End: 02-25-2025 [facility] Start: 02-22-2025 End: 02-22-2025 [facility] Start: 02-20-2025 End: 02-20-2025 [facility] Start: 02-15-2025 End: 02-15-2025 [facility] Start: 02-13-2025 End: 02-13-2025 [facility] Start: 02-11-2025 End: 02-11-2025 [facility] Start: 02-08-2025 End: 02-08-2025 [facility] Start: 02-06-2025 End: 02-06-2025 Subsequent hospital visit by physician [facility] Comment on above: Skin ulcer, unspecif ied ulcer stage (Multi) Start: 02-06-2025 End: 02-06-2025 [facility] Start: 02-06-2025 End: 02-06-2025 [facility] Start: 02-01-2025 End: 02-01-2025 Office outpatient visit 15 minutes Dariela Garza MD Work Phone: [facility] Comment on above: Skin ulcer, unspecif ied ulcer stage (Multi) (Primary Dx) Start: 02-01-2025 End: 02-01-2025 [facility] Start: 01-30-2025 End: 01-30-2025 [facility] Start: 01-28-2025 End: 01-28-2025 [facility] Start: 01-25-2025 End: 01-25-2025 [facility] Start: 01-23-2025 End: 01-23-2025 [facility] Start: 01-21-2025 End: 01-21-2025 Subsequent hospital visit by physician [facility] Comment on above: Skin ulcer, unspecif ied ulcer stage (Multi) Start: 01-21-2025 End: 01-21-2025 [facility] Start: 01-18-2025 End: 01-18-2025 ambulatory [facility] Start: 01-18-2025 End: 01-18-2025 Office outpatient new 30 minutes Dariela Garza MD Work Phone: [facility] Comment on above: Skin ulcer, unspecif ied ulcer stage (Multi) Start: 01-01-2025 End: 01-01-2025 Assay of hemosiderin, quant Sancho Woodruff MD Work Phone: [facility] Work Phone: Start: 01-01-2025 End: 01-01-2025 Patient encounter procedure Sancho Woodruff MD Work Phone: [facility] Comment on above: Routine general medi christin [...] stage (Multi) Start: 01-01-2025 End: 01-01-2025 ambulatory [facility] Start: 01-01-2025 End: 01-01-2025 Encounter for general adult medical examination without abnormal findings VALLIANT [facility] Start: 12-12-2024 End: 12-12-2024 Office outpatient visit 25 minutes Wang Borges MD Work Phone: [facility] Comment on above: Paroxysmal atrial fi brillation (HCC) (Primary Dx); Primary hypertension; Coronary artery disease involving king salmon coronary artery of king salmon heart without angina pectoris; Dyslipidemia Start: 12-12-2024 End: 12-12-2024 ambulatory [facility] Ambulatory Start: 11-20-2024 End: 11-20-2024 ambulatory [facility] Start: 11-05-2024 ambulatory [facility] Start: 11-02-2024 End: 11-05-2024 Admission to same day surgery center Anna Bassett RN [facility] Comment on above: Cervical radiculopat hy (Primary Dx) Start: 10-30-2024 End: 10-30-2024 Office outpatient visit 25 minutes Jose A Onrelas [employer] Work Phone: [facility] Comment on above: Cervicalgia (Primary Dx); Lumbar spondylolysis; Cervical radiculopathy; Cervical spondylosis Start: 10-30-2024 End: 10-30-2024 ambulatory JOSE A ORNELAS [facility] Start: 10-18-2024 End: 10-18-2024 Refill Wang Borges MD Work Phone: [facility] Comment on above: Medication Refill (R osuvastatin ) Start: 10-08-2024 End: 10-08-2024 Clinical Support Christine Voss CNP Work Phone: [facility] Comment on above: 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 Start: 08-13-2024 End: 08-13-2024 ambulatory [facility] Start: 08-13-2024 End: 08-13-2024 Office outpatient visit 25 minutes Sancho Woodruff MD Work Phone: [facility] Comment on above: DDD (degenerative di sc disease), lumbosacral (Primary Dx); Lumbar stenosis with neurogenic claudication; Closed fracture of sacrum, unspecified portion of sacrum, initial encounter (Multi); Iron deficiency anemia, unspecified iron deficiency anemia type; Unexplained weight loss Start: 07-11-2024 End: 07-11-2024 ambulatory JAYLAN MOSCOSO [facility] Start: 06-01-2024 End: 06-01-2024 Clinical Support Sujatamonty Bradford CNP Work Phone: [facility] Comment on above: 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 (Primary Dx); Trochanteric bursitis of left hip Start: 05-11-2024 End: 05-11-2024 Admission to same day surgery center Jyalan Moscoso DO Work Phone: [facility] Comment on above: Cervical radiculopat hy (Primary Dx) Start: 05-11-2024 End: 05-11-2024 Office outpatient visit 25 minutes Jaylan Danis DO Work Phone: [facility] Comment on above: Cervical radiculopat hy (Primary Dx) Start: 04-19-2024 End: 04-19-2024 Refill Joanne Quan [facility] Comment on above: Medication Refill Start: 04-16-2024 End: 04-16-2024 Office outpatient visit 15 minutes Sancho Woodruff MD Work Phone: [facility] Comment on above: AF (paroxysmal atria l fibrillation) (Multi); DDD (degenerative disc disease), lumbosacral; Lumbar stenosis with neurogenic claudication; Closed fracture of sacrum, unspecified portion of sacrum, initial encounter (Multi) Start: 04-05-2024 End: 04-05-2024 ambulatory [facility] Start: 03-13-2024 End: 03-13-2024 Subsequent hospital visit by physician [facility] X-[facility] Comment on above: Acute pain of left k nee Start: 03-12-2024 End: 03-12-2024 Office outpatient visit 15 minutes Sancho Woodruff MD Work Phone: [facility] Comment on above: Acute pain of left k nee (Primary Dx); Chronic liver disease and cirrhosis (Multi) Start: 02-22-2024 End: 02-22-2024 Office outpatient new 45 minutes Jaylan Danis DO Work Phone: [facility] Comment on above: Cervical radiculopat hy (Primary Dx); Cervicalgia Start: 01-16-2024 End: 01-16-2024 Assay of hemosiderin, quant Sancho Woodruff MD Work Phone: [facility] Work Phone: Start: 01-16-2024 End: 01-16-2024 Office outpatient visit 15 minutes Sancho Woodruff MD Work Phone: [facility] Comment on above: AF (paroxysmal atria l fibrillation) (CMS/HCC); Gastrointestinal hemorrhage, unspecified gastrointestinal hemorrhage type; DDD (degenerative disc disease), lumbosacral; Lumbar stenosis with neurogenic claudication; Mixed hyperlipidemia; Iron deficiency anemia, unspecified iron deficiency anemia type; Acquired hypothyroidism; Routine general medical examination at health care facility; Acute UTI Start: 12-21-2023 End: 12-21-2023 Office outpatient visit 25 minutes Jose A Ornelas CNP Work Phone: [facility] Comment on above: Rotator cuff disorde r, right (Primary Dx); Cervicalgia Start: 11-15-2023 End: 11-15-2023 Office outpatient visit 25 minutes Jose A Ornelas CNP Work Phone: [facility] Comment on above: Cervical radicular p ain (Primary Dx); Cervicalgia; Rotator cuff disorder, right; Rotator cuff disorder, left Start: 10-13-2023 End: 10-13-2023 Assay of hemosiderin, quant Sancho Woodruff MD Work Phone: [facility] Work Phone: Start: 10-13-2023 End: 10-13-2023 Patient encounter procedure Sancho Woodruff MD Work Phone: [facility] Comment on above: Routine general medi christin examination at health care facility (Primary Dx); AF (paroxysmal atrial fibrillation) (CMS/HCC); Gastrointestinal hemorrhage, unspecified gastrointestinal hemorrhage type; DDD (degenerative disc disease), lumbosacral; Lumbar stenosis with neurogenic claudication; Mixed hyperlipidemia; Iron deficiency anemia, unspecified iron deficiency anemia type; Acquired hypothyroidism; Acute UTI Start: 10-13-2023 End: 10-13-2023 Clinical Support Christine Voss CNP Work Phone: [facility] Comment on above: Rotator cuff disorde r, left (Primary Dx) Start: 10-12-2023 End: 10-12-2023 [facility] Start: 10-11-2023 End: 10-11-2023 [facility]ulatory [facility] Start: 08-24-[address] [facility] Start: 07-18-2023 End: 07-18-2023 Postop follow up visit related to original px Dada Deniz Gee PA-C Work Phone: [facility] Comment on above: Sacral insufficiency fracture with delayed healing (Primary Dx) Start: 07-07-2023 End: 07-07-2023 Office outpatient visit 25 minutes Sancho Woodruff MD Work Phone: [facility] Comment on above: Iron deficiency anem ia, unspecified iron deficiency anemia type (Primary Dx); AF (paroxysmal atrial fibrillation) ([facility]); Gastrointestinal hemorrhage, unspecified gastrointestinal hemorrhage type; DDD (degenerative disc disease), lumbosacral; Lumbar stenosis with neurogenic claudication; Mixed hyperlipidemia; Acquired hypothyroidism Start: 06-15-2023 End: 06-15-2023 Postop follow up visit related to original px Shawn Mcmillan PA-C Work Phone: [facility] Comment on above: Sacroiliac dysfuncti on (Primary Dx) Start: 06-09-2023 End: 06-09-2023 Office outpatient visit 15 minutes Sancho Woodruff MD Work Phone: [facility] Comment on above: Cellulitis of left l ower extremity (Primary Dx) Start: 06-03-2023 End: 06-03-2023 Clinical Support Kendra Mena RN [facility] Comment on above: Sacral insufficiency fracture with delayed healing (Primary Dx) Start: 05-27-2023 Documentation procedure Kendra Mena RN [facility] Start: 05-27-2023 End: 05-27-2023 Postop follow up visit related to original px Bridger Monique MD Work Phone: [facility] Comment on above: Sacral insufficiency fracture with delayed healing (Primary Dx) Start: 05-26-2023 End: 05-26-2023 Clinical Support Kendra Mena RN [facility] Comment on above: Sacral insufficiency fracture with delayed healing (Primary Dx) Start: 05-23-2023 End: 05-23-2023 Clinical Support Kendra Mena RN [facility] Comment on above: Sacral insufficiency fracture with delayed healing (Primary Dx) Start: 05-22-2023 End: 05-22-2023 [facility] Start: 05-19-2023 End: 05-19-2023 Evaluation and management of inpatient Luis M Garza MD Work Phone: [facility] Start: 05-19-2023 End: 05-19-2023 Evaluation and management of inpatient Bridger Monique MD Work Phone: [facility] Start: 05-05-2023 Orders Only Beatriz Holloway RN [facility] Start: 05-05-2023 End: 05-05-2023 Office outpatient new 45 minutes Sancho Woodruff MD Work Phone: [facility] Preadmission Testing Comment on above: Pre-op testing; Sacral insufficiency fracture with delayed healing; Primary hypertension; Paroxysmal atrial fibrillation (HCC); Coronary artery disease involving king salmon coronary artery of king salmon heart without angina pectoris; Dyslipidemia; Hypothyroidism, unspecified type; Gastroesophageal reflux disease, unspecified whether esophagitis present; Pre-op examination Start: 05-05-2023 End: 05-05-2023 Patient encounter status Sancho Woodruff MD Work Phone: [facility] Work Phone: Start: 05-05-2023 End: 05-05-2023 Preprocedural examination done Sancho Woodruff MD Work Phone: [facility] Start: 04-18-2023 Gisselle Johnston MA [facility] Comment on above: Medication Refill Start: 04-14-2023 End: 04-14-2023 Office outpatient new 30 minutes Sancho Woodruff MD Work Phone: [facility] Comment on above: Sacral insufficiency fracture with delayed healing; Spinal stenosis, lumbar region, without neurogenic claudication Start: 04-11-2023 End: 04-11-2023 Office outpatient visit 25 minutes Sancho Woodruff MD Work Phone: [facility] Comment on above: Paroxysmal atrial fi brillation (HCC) (Primary Dx); PAF (paroxysmal atrial fibrillation) (HCC); Primary hypertension; Coronary artery disease involving king salmon coronary artery of king salmon heart without angina pectoris; Dyslipidemia Start: 04-05-2023 End: 04-05-2023 Office outpatient visit 25 minutes Sancho Woodruff MD Work Phone: [facility] Comment on above: AF (paroxysmal atria l fibrillation) (CMS/HCC) (Primary Dx); Gastrointestinal hemorrhage, unspecified gastrointestinal hemorrhage type; DDD (degenerative disc disease), lumbosacral; Lumbar stenosis with neurogenic claudication; Mixed hyperlipidemia Start: 03-28-2023 Office outpatient vi sit 15 minutes Sancho Woodruff Work Phone: [facility] Work Phone: Start: 03-28-[address] Oksana Bueno ity:[id number] Start: 03-24-2023 Patient encounter procedure Sancho Woodruff Work Phone: [facility] Work Phone: Start: 03-24-2023 ambulatory Burt Roland y:[id number] Start: 03-04-2023 End: 03-04-[address] Maria Teresa Epperson Facility:[id number] Start: 03-04-2023 End: 03-04-2023 Subsequent hospital visit by physician Maria Teresa Epperson MD Work Phone: [facility] Comment on above: Lesion of sciatic ne rve, right lower limb; [facility] (current) use of aspirin; Pain, unspecified Start: 02-18-2023 End: 02-18-[address] Maria Teresa Epperson Facility:[id number] Start: 02-18-2023 End: 02-18-2023 Subsequent hospital visit by physician Maria Teresa Epperson MD Work Phone: 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, including canthus Start: 02-17-2023 End: 02-17-2023 Office outpatient visit 25 minutes Sancho Woodruff MD Work Phone: [facility] Comment on above: Gastrointestinal hem orrhage, unspecified gastrointestinal hemorrhage type (Primary Dx); AF (paroxysmal atrial fibrillation) (CMS/HCC); Malignant neoplasm of uterus, unspecified site (CMS/HCC); Closed fracture of sacrum, unspecified portion of sacrum, sequela; Severe obesity with body mass index (BMI) of 35.0 to 39.9 with serious comorbidity (CMS/HCC); Chronic liver disease and cirrhosis (CMS/HCC) Start: 02-14-2023 Transcribe Orders Sancho Woodruff MD Work Phone: [facility] Comment on above: Lumbar neuritis (Sandy dariela Dx); DDD (degenerative disc disease), lumbosacral Start: 01-17-2023 End: 01-21-2023 Evaluation and management of inpatient DO SHAHID KINGSLEY BRIAN Facility:[id number] Start: 01-17-2023 End: 01-21-2023 Evaluation and management of inpatient Shahid Colunga [facility] 01 Start: 01-06-2023 ambulatory Burt Roland y:[id number] Start: 01-06-2023 FUV, Provider: Burt Calhoun, Status: Pen, Time: 1:00 PM Sancho Woodruff Work Phone: [facility] Work Phone: Start: 01-06-2023 Chart Update Sancho damon Work Phone: [facility] Work Phone: Start: 01-05-2023 Chart Update Sancho Matthias Sten abdirizak Work Phone: [facility] Work Phone: Start: 01-05-2023 PTFUADULT4, Provider : Cecilia Richardson, Status: Pen, Time: 2:45 PM Sancho Woodruff Work Phone: [facility] Work Phone: Start: 01-04-[address] Maria Teresa Dowling tthew Zumbar Facility:[id number] Start: 01-03-2023 AUDIT Sancho Matthias Jara abdirizak Work Phone: [facility] Work Phone: Start: 12-31-2022 ambulatory Burt Roland y:[id number] Start: 12-29-2022 ambulatory Burt Calhoun Facilit y:[id number] Start: 12-29-2022 Patient encounter procedure Sancho Woodruff Work Phone: [facility] Work Phone: Start: 2022 Documentation procedure Meryl Kearns LPN [facility] Start: 2022 End: 2022 Office outpatient visit 5 minutes Christine Voss CNP Work Phone: [facility] Comment on above: Bursitis of right hi p, unspecified bursa (Primary Dx); DDD (degenerative disc disease), lumbar Start: 12-15-2022 Patient encounter procedure Sancho Woodruff Work Phone: [facility] [place] Work Phone: Start: 12-15-[address] Sancho Nagy Facility:[id number] Start: 12-13-[address] Sancho Nagy Facility:[id number] Start: 12-08-2022 Patient encounter procedure Sancho Woodruff Work Phone: [facility] Work Phone: Start: 12-08-2022 PTFUADULT4, Provider : Elina Diaz, Status: Pen, Time: 3:15 PM Sancho Woodruff [facility] Work Phone: Start: 12-07-2022 AUDIT Sancho damon Work Phone: -[facility] Work Phone: Start: 12-06-[address] Sancho Nagy Facility:[id number] Start: 12-03-2022 Chart Update Sancho damon Work Phone: [facility] Work Phone: Start: 12-01-[address] Sancho Nagy Facility:[id number] Start: 12-01-2022 Patient encounter procedure Sancho Woodruff Work Phone: [facility] Work Phone: Start: 11-22-2022 Patient encounter procedure Sancho Woodruff Work Phone: [facility] Work Phone: Start: 11-18-2022 EPV, Provider: Sancho Woodruff, Status: Pen, Time: 2:40 PM Sancho Woodruff Work Phone: [facility] Work Phone: Start: 11-18-[address] Sancho Nagy Facility:[id number] Start: 11-17-2022 Patient encounter procedure Sancho Woodruff Work Phone: [facility] Work Phone: Start: 11-17-2022 PTEVAADULT, Provider : Elina Diaz, Status: Pen, Time: 2:45 PM Sancho Woodruff Work Phone: [facility] Work Phone: Start: 11-17-[address] Sancho Nagy Facility:[id number] Start: 11-17-2022 Chart Update Sancho Jara abdirizak Work Phone: [facility] Work Phone: Start: 11-15-2022 Chart Update Sancho Becker Sten abdirizak Work Phone: [facility] Work Phone: Start: 11-08-2022 PTEVAADULT, Provider : Larisa Walker, Status: Pen, Time: 2:00 PM Sancho Jaraabdirizak Work Phone: [facility] Work Phone: Start: 11-07-2022 AUDIT Sancho Matthias Estefani abdirizak Work Phone: [facility] Work Phone: Start: 11-04-2022 Office outpatient vi sit 25 minutes Sancho Becker Kacy Work Phone: [facility] Work Phone: Start: 11-04-[address] Sancho Nagy Facility:[id number] Start: 09-13-2022 AUDIT Sancho Beckre Estefani abdirizak Work Phone: [facility] Work Phone: Start: 09-09-2022 End: 09-09-2022 Emergency department patient visit Xin Pereira [facility] Emergency 13 Start: 09-06-2022 AUDIT Sancho Becker Sten abdirizak Work Phone: [facility] Work Phone: Start: 08-20-2022 AUDIT Sancho Becker Sten abdirizak Work Phone: [facility] Work Phone: Start: 08-13-2022 Chart Update Sancho Becker Sten abdirizak Work Phone: [facility] Work Phone: Start: 08-12-[address] Sancho Nagy Facility:[id number] Start: 08-10-2022 Chart Update Sancho Becker Sten abdirizak Work Phone: [facility] Work Phone: Start: 08-03-2022 Office outpatient vi sit 25 minutes Sancho Jaracel Work Phone: [facility] Work Phone: Start: 06-28-2022 Chart Update Sancho damon Work Phone: -[facility] 120 Work Phone: Start: 06-22-2022 Orders Only Sancho Castaneda MD Work Phone: [facility] Comment on above: Pain (Primary Dx) Start: 06-16-2022 End: 06-16-2022 ambulatory Oksana Ocampo Facility:[id number] Start: 06-04-2022 AUDIT Sancho Jara abdirizak Work Phone: [facility] Work Phone: Start: 05-25-2022 Adv care pln/ no alt dcsn mkr docd or refusal Sancho Jaracel Work Phone: [facility] Work Phone: Start: 05-17-2022 Office outpatient vi sit 15 minutes Sancho Jaracel Work Phone: [facility] Work Phone: Start: 05-13-2022 End: 05-13-2022 Clinical Support Christine Voss CNP Work Phone: [facility] Comment on above: Rotator cuff disorde r, left (Primary Dx) Start: 05-04-2022 Office outpatient vi sit 15 minutes Sancho Jaracel Work Phone: [facility] Work Phone: Start: 04-28-2022 End: 04-28-2022 Clinical Support Christine Voss CNP Work Phone: [facility] Comment on above: Greater trochanteric bursitis of left hip (Primary Dx) Start: 04-08-2022 AUDIT Sancho damon Work Phone: [facility] [facility] Work Phone: Start: 03-12-2022 End: 03-12-2022 Clinical Support Wang Borges MD Work Phone: [facility] Comment on above: Atrial fibrillation, unspecified type (HCC) Start: 03-09-2022 End: 03-09-2022 Office outpatient visit 25 minutes Wang Borges MD Work Phone: [facility] Comment on above: Atrial fibrillation, unspecified type (HCC) (Primary Dx); Primary hypertension; Coronary artery disease involving king salmon coronary artery of king salmon heart without angina pectoris; Dyslipidemia Start: 02-10-2022 End: 02-10-2022 Clinical Support Christine Voss CNP Work Phone: [facility] Comment on above: Rotator cuff disorde r, left (Primary Dx) Start: 02-03-2022 Office outpatient vi sit 15 minutes Sancho Woodruff Work Phone: [facility] Work Phone: Start: 01-27-2022 End: 01-27-2022 Clinical Support Christine Voss CNP Work Phone: [facility] Comment on above: Greater trochanteric bursitis of left hip (Primary Dx) Start: 01-25-2022 AUDIT Sancho damon Work Phone: [facility] Work Phone: Start: 01-07-2022 Chart Update Sancho damon Work Phone: [facility] Work Phone: Start: 01-04-2022 Chart Update Sancho Jara abdirizak Work Phone: [facility] Work Phone: Start: 01-04-2022 Office outpatient vi sit 25 minutes Sancho Matthias Estefanicel Work Phone: [facility] Work Phone: Start: 12-21-2021 AUDIT Sancho Matthias Estefani abdirizak Work Phone: [facility] Work Phone: Start: 12-09-2021 Refill Wang victoria MD Work Phone: [facility] Comment on above: Medication Refill (A torvastatin ) Start: 11-19-2021 AUDIT Sancho Matthias Estefani abdirizak Work Phone: [facility] Work Phone: Start: 11-13-2021 Chart Update Sancho Jara abdirizak Work Phone: [facility] Work Phone: Start: 11-05-2021 Office outpatient vi sit 25 minutes Sancho Woodruff Work Phone: [facility] Work Phone: Start: 10-19-2021 AUDIT Sancho Matthias Estefani abdirizak Work Phone: [facility] Work Phone: Start: 10-13-2021 End: 10-13-2021 Clinical Support Christine Voss REGIONAL PROGRAM MANAGER Work Phone: [facility] Comment on above: Greater trochanteric bursitis of left hip (Primary Dx); Rotator cuff disorder, left Start: 10-12-2021 Chart Update Sancho Jara abdirizak Work Phone: [facility] Work Phone: Start: 09-08-2021 AUDIT Sancho Becker Estefani abdirizak Work Phone: [facility] Work Phone: Start: 08-28-2021 Chart Update Sancho Matthias Sten abdirizak Work Phone: [facility] Work Phone: Start: 08-27-2021 AUDIT Sancho Matthias Sten abdirizak Work Phone: [facility] Work Phone: Start: 08-24-2021 Chart Update Sancho Matthias Sten abdirizak Work Phone: [facility] Work Phone: Start: 08-13-2021 AUDIT Sancho Matthias Sten abdirizak Work Phone: [facility] Work Phone: Start: 08-07-2021 Office outpatient vi sit 15 minutes Sancho Matthias Stencel Work Phone: [facility] Work Phone: Start: 08-05-2021 End: 08-05-2021 Office outpatient visit 15 minutes Ricky Bassett DPM Work Phone: [facility] Comment on above: Peripheral vascular disease, unspecified (HCC) (Primary Dx); [place] Start: 06-23-2021 End: 06-23-2021 Office outpatient visit 25 minutes Christine Voss CNP Work Phone: [facility] Comment on above: Greater trochanteric bursitis of left hip (Primary Dx) Start: 06-09-2021 AUDIT Sancho Becker Sten abdirizak Work Phone: [facility] Work Phone: Start: 05-06-2021 Office outpatient vi sit 25 minutes Sancho Becker Stencel Work Phone: [facility] Work Phone: Start: 05-04-2021 Chart Update Sancho Matthias Sten abdirizak Work Phone: [facility] Work Phone: Start: 04-17-2021 AUDIT Sancho damon Work Phone: [facility] Work Phone: Start: 02-25-2021 End: 02-25-2021 Clinical Support Christine Voss [facility] Work Phone: [facility] Comment on above: Rotator cuff disorde r, left (Primary Dx) Start: 12-22-2020 End: 12-22-2020 Orders Only Dariela Santillan [facility] Office Comment on above: Liver cirrhosis seco ndary to MATTHEW (HCC) (Primary Dx) Start: 12-09-2020 End: 12-09-2020 Documentation procedure Dariela Santillan [facility] Start: 11-28-2020 End: 11-28-2020 Office outpatient visit 10 minutes Dada Hathaway Work Phone: [facility] Comment on above: Status post reverse total shoulder replacement, right (Primary Dx) Start: 11-19-2020 End: 11-19-2020 Orders Only Dariela Santillan [facility] Office Comment on above: Atrial fibrillation, unspecified type (HCC) (Primary Dx) Start: 11-19-2020 End: 11-26-2020 Office outpatient visit 25 minutes Wang Martinez Jony Work Phone: [facility] Office Comment on above: Essential hypertensi on (Primary Dx); Atrial fibrillation, unspecified type (HCC); Coronary artery disease involving king salmon coronary artery of king salmon heart without angina pectoris; Dyslipidemia Start: 10-31-2020 End: 10-31-2020 Orders Only Elisha Del Castillo Work Phone: [facility] Start: 08-04-2020 Patient encounter procedure Sancho Woodruff -[facility]-[address] Work Phone: Start: 05-22-2020 End: 05-22-2020 Clinical Support Christine Voss Work Phone: [facility] Comment on above: Rotator cuff disorde r, left (Primary Dx) Start: 04-03-2020 Patient encounter procedure Sancho Woodruff [facility] [address] Work Phone: Start: 02-20-2020 End: 02-20-2020 Patient encounter procedure Christine Voss Work Phone: [facility] Comment on above: Rotator cuff disorde r, left (Primary Dx) Start: 02-12-2020 End: 02-12-2020 Subsequent hospital visit by physician Wang Borges Work Phone: [facility] CT Scan Comment on above: Atrial fibrillation, unspecified type (HCC) Start: 01-14-2020 End: 01-14-2020 Postop follow up visit related to original px Dada Hathaway Work Phone: [facility] Comment on above: Status post reverse total shoulder replacement, right (Primary Dx) Start: 12-18-2019 Patient encounter procedure Sancho Woodruff [facility] Work Phone: Start: 12-17-2019 End: 12-17-2019 Postop follow up visit related to original px Dada Hathaway Work Phone: [facility] Comment on above: Status post reverse total shoulder replacement, right (Primary Dx) Start: 12-06-2019 End: 12-06-2019 Documentation procedure Amanda Christina [facility] Start: 11-29-2019 End: 11-30-2019 Evaluation and management of inpatient Dada Hathaway Work Phone: [facility] Med Surg Orthopedics Comment on above: S/P reverse total sh oulder arthroplasty, right (Primary Dx); Rotator cuff disorder, right Start: 11-20-2019 End: 11-20-2019 Subsequent hospital visit by physician Wang Borges Work Phone: [facility] Comment on above: Arrived Preop cardiovascular exam; Atrial fibrillation, unspecified type (HCC); Essential hypertension Start: 11-14-2019 Patient encounter status Rajni Voss ELIJAH Work Phone: [facility] Start: 11-14-2019 Encounter for preprocedural cardiovascular examination WANG BORGES [facility] Start: 11-14-2019 End: 11-14-2019 Office outpatient visit 15 minutes Dada Anant Hathaway Work Phone: [facility] Office Comment on above: Preop cardiovascular exam (Primary Dx); Rotator cuff disorder, right; Atrial fibrillation, unspecified type (HCC); Essential hypertension Start: 11-06-2019 End: 11-06-2019 Patient encounter procedure Dada Anant Hathaway Work Phone: [facility] Preadmission Testing Comment on above: Rotator cuff disorde r, right; Hypertension, unspecified type Start: 10-22-2019 End: 10-22-2019 Office outpatient visit 10 minutes Dada Anant Hathaway Work Phone: [facility] Comment on above: Rotator cuff disorde r, right (Primary Dx); Rotator cuff disorder, left Start: 10-08-2019 End: 10-08-2019 Subsequent hospital visit by physician Sancho Woodruff Work Phone: [facility] Mammography Comment on above: Breast cancer screen ing by mammogram Start: 09-26-2019 End: 09-26-2019 Treatment Dada Anant Hathaway Work Phone: [facility] Comment on above: Rotator cuff disorde r, right (Primary Dx); Rotator cuff disorder, left Start: 09-25-2019 End: 09-26-2019 Patient encounter procedure PROVIDER NOT IN [facility] Start: 09-25-2019 End: 09-25-2019 Subsequent hospital visit by physician Provider Not In [facility] Radiology External Films Comment on above: Arrived Start: 09-19-2019 End: 09-19-2019 Treatment Dada Anant Hathaway Work Phone: [facility] Comment on above: Rotator cuff disorde r, right (Primary Dx); Rotator cuff disorder, left Start: 09-17-2019 End: 09-17-2019 Treatment Dada Anant Hathaway Work Phone: [facility] Comment on above: Rotator cuff disorde r, right (Primary Dx); Rotator cuff disorder, left Start: 09-17-2019 Patient encounter procedure Sancho Woodruff [facility] Work Phone: Start: 09-11-2019 End: 09-11-2019 Treatment Dada Hathaway Work Phone: [facility] Comment on above: Rotator cuff disorde r, right (Primary Dx); Rotator cuff disorder, left Start: 09-04-2019 End: 09-04-2019 Treatment Dada Hathaway Work Phone: [facility] Comment on above: Rotator cuff disorde r, right (Primary Dx); Rotator cuff disorder, left Start: 08-28-2019 End: 08-28-2019 Treatment Dada Hathaway Work Phone: [facility] Comment on above: Rotator cuff disorde r, right (Primary Dx); Rotator cuff disorder, left Start: 08-23-2019 End: 08-23-2019 Treatment Dada Hathaway Work Phone: [facility] Comment on above: Rotator cuff disorde r, right (Primary Dx); Rotator cuff disorder, left Start: 08-14-2019 End: 08-14-2019 Treatment Dada Hathaway Work Phone: [facility] Comment on above: Rotator cuff disorde r, right (Primary Dx); Rotator cuff disorder, left Start: 08-09-2019 End: 08-09-2019 Treatment Dada Hathaway Work Phone: [facility] Comment on above: Rotator cuff disorde r, right (Primary Dx); Rotator cuff disorder, left Start: 08-07-2019 End: 08-07-2019 Treatment Daad Hathaway Work Phone: [facility] Comment on above: Rotator cuff disorde r, right (Primary Dx); Rotator cuff disorder, left Start: 08-03-2019 End: 08-03-2019 Treatment Dada Hathaway Work Phone: [facility] Comment on above: Rotator cuff disorde r, right (Primary Dx); Rotator cuff disorder, left Start: 08-01-2019 End: 08-01-2019 Evaluation Dada Hathaway Work Phone: [facility] Comment on above: Rotator cuff disorde r, left; Rotator cuff disorder, right Start: 06-25-2019 End: 06-25-2019 Office outpatient visit 15 minutes Dada Hathaway Work Phone: [facility] Comment on above: Bursitis/tendonitis, shoulder (Primary Dx); Rotator cuff arthropathy, right; Left shoulder pain, unspecified chronicity; Lumbar and sacral arthritis Start: 03-19-2019 End: 03-19-2019 Postop follow up visit related to original px Dada Hathaway Work Phone: [facility] Comment on above: Bursitis/tendonitis, shoulder (Primary Dx); Rotator cuff arthropathy, right; Left shoulder pain, unspecified chronicity Start: 09-04-2018 End: 09-04-2018 Postop follow up visit related to original px Dada Hathaway Work Phone: [facility] Comment on above: Bursitis/tendonitis, shoulder (Primary Dx); Rotator cuff arthropathy, right Start: 04-24-2018 End: 04-24-2018 Office outpatient visit 10 minutes Dada Anant Hathaway Work Phone: [facility] Start: 04-20-2018 Patient encounter Denisse Streeter Fa cility:[place] Start: 04-20-2018 End: 04-20-2018 Patient encounter Denisse Streeter Work Phone: [facility] Start: 01-02-2018 Postop follow-up visit Dada Ny Allen Work Phone: [facility] Procedures Date Procedure Procedure Detail Performing Clinician Start: 07-30-2025 Ecg routine ecg w/least 12 lds w/i&r Sancho Woodruff MD Work Phone: Start: 06-28-2025 CT of pelvis with contrast Dr. Sancho Woodruff MD Work Phone: Start: 04-15-2025 Lipid 1996 panel - Serum or Plasma [facility] 1 Start: 04-15-2025 Thyrotropin [Units/volume] in Serum or Plasma [facility] 1 Start: 03-01-2025 Follow-up visit Follow-up DARIELA GARZA Start: 01-21-2025 Radiologic examination pelvis 1/2 views Dariela Garza MD Work Phone: Start: 12-12-2024 Ecg routine ecg w/least 12 lds w/i&r Wang Juan Borges MD Work Phone: Start: 10-08-2024 Arthrocentesis aspir&/inj major jt/bursa w/o us Christine Voss REGIONAL PROGRAM MANAGER Work Phone: Start: 06-01-2024 Arthrocentesis aspir&/inj major jt/bursa w/o us Sujata Bradford REGIONAL PROGRAM MANAGER Work Phone: Start: 10-13-2023 Arthrocentesis aspir&/inj major jt/bursa w/o us Christine Voss REGIONAL PROGRAM MANAGER Work Phone: Start: 10-13-2023 Drugs of abuse [...] Phone: Start: 05-19-2023 AIRWAY ETT Dmitri Fredrick Vicky FU Work Phone: Start: 05-19-2023 Prothrombin time Bridger Monique MD Work Phone: Start: 05-05-2023 DRAW 4 PINK TOP TUBES (ARC) Bridger Monique MD Work Phone: Start: 05-05-2023 Basic metabolic panel calcium total Bridger Monique MD Work Phone: Start: 05-05-2023 Blood typing serologic abo Bridger Monique MD Work Phone: Start: 04-11-2023 Ecg routine ecg w/least 12 lds w/i&r Wang Borges MD Work Phone: Start: 03-04-2023 RFA Unspecified body region Limited Views for therapy or embolization or infusion W contrast via existing catheter Maria Teresa Epperson MD Work Phone: Start: 03-04-2023 Diagnostic procedure on nerve Sancho Jaracel Work Phone: Comment on above: Rt Piriformis/Sciatic Nerve Inj; Start: 02-18-2023 RFA Unspecified body region Limited Views for therapy or embolization or infusion W contrast via existing catheter Maria Teresa Epperson MD Work Phone: Start: 02-18-2023 Injection of steroid into joint Sancho D Stencel Work Phone: Comment on above: Lt Trochanteric Bursa injection; Start: 01-20-[address] Sancho Woodruff Comment on above: Performed By: #### MG #### [id number] [place] [address] Start: 01-20-2023 Release Blood Product-Packed Red Blood Cells Shahid Colunga Start: 01-17-2023 End: 01-17-2023 EKG impression Ely I Moomaw Start: 12-03-2022 Thyrotropin [Units/volume] in Serum or Plasma Sancho Woodruff MD Work Phone: Start: 09-09-2022 End: 09-09-2022 EKG impression Xin Amirah Start: 06-16-2022 Colonoscopy Sancho Woodruff Work Phone: Start: 05-13-2022 Arthrocentesis aspir&/inj major jt/bursa w/o us Christine Voss CNP Work Phone: Start: 04-28-2022 Arthrocentesis aspir&/inj major jt/bursa w/o us Christine Voss REGIONAL PROGRAM MANAGER Work Phone: Start: 03-15-2022 Ecg routine ecg w/least 12 lds w/i&r Wang Borges MD Work Phone: Start: 03-12-2022 Ecg routine ecg w/least 12 lds w/i&r Wang Borges MD Work Phone: Start: 01-07-2022 Echocardiography Sancho Woodruff Work Phone: Start: 10-13-2021 Arthrocentesis aspir&/inj major jt/bursa w/o us Christine Voss CNP Work Phone: Start: 06-25-2021 Arthrocentesis aspir&/inj major jt/bursa w/o us Christine Voss REGIONAL PROGRAM MANAGER Work Phone: Start: 05-01-2021 Lipid 1996 panel [...] Mammography External Transcribed Start: 05-08-2019 Colonoscopy Sancho Jaraabdirizak Work Phone: Start: 10-02-2013 Mammography Sancho Woodruff [...] Author Start: 04-15-2030 Lipid panel Lipid Panel [facility] Start: 07-11-2028 Lipid panel Lipid Panel [facility] Start: 05-27-2026 Diabetes mellitus screening Diabetes Screening [facility] Start: 05-01-2026 Lipid panel Lipid Panel [facility] Start: 04-15-2026 Thyroid stimulating hormone measurement TSH Level [facility] Start: 01-19-2026 Esophagogastroduodenoscopy EGD [facility] Start: 01-02-2026 Medicare Annual Wellness Visit Medicare Annual Wellness Visit (AWV) [facility] Start: 12-18-2025 End: 12-18-2025 Patient encounter procedure 12/18/2025 10:30 AM EDT Office Visit [facility] [address] [place] [address] Wang Borges MD [address] [facility] [address] [place] [address] [facility] Start: 09-12-2025 End: 09-12-2025 Patient encounter procedure 09/12/2025 11:15 AM EST Office Visit [facility] Medical [facility] Building [address] [place] [id number] Flavia Delgado, DIRECTOR GLOBAL-REGIONAL PROGRAM MANAGER [address] [place] [address] [facility] Start: 08-17-2025 Diabetes mellitus screening Diabetes Screening [facility] Start: 08-09-2025 End: 08-09-2025 Patient encounter procedure 08/09/2025 10:30 AM EDT Office Visit [address] [place] [address] Dariela Garza MD [address] [place] [address] [facility] Start: 08-07-2025 End: 08-07-2025 Patient encounter procedure 08/07/2025 10:30 AM EDT Office Visit [address] [place] [address] Dariela Garza MD [address] [place] [address] [facility] Start: 07-31-2025 End: 07-31-2025 Patient encounter procedure 07/31/2025 11:00 AM EDT Office Visit [address] [phone] Dariela Garza MD [address] [place] [address] [facility] Start: 07-30-2025 End: 07-30-2026 CBC panel - Blood by Automated count CBC Lab Routine DDD (degenerative disc disease), lumbosacral Lumbar stenosis with neurogenic claudication Wound of sacral region, sequela Expected: 07/30/2025 (Approximate), Expires: 07/30/2026 [facility] Service Area Work Phone: Comment on above: Expected: 07/30/2025 (Approximate), Expi res: 07/30/2026 Start: 07-30-2025 End: 07-30-2026 Comprehensive metabolic 2000 panel - Serum or Plasma Comprehensive Metabolic Panel Lab Routine DDD (degenerative disc disease), lumbosacral Lumbar stenosis with neurogenic claudication Wound of sacral region, sequela Expected: 07/30/2025 (Approximate), Expires: 07/30/2026 [facility] Work Phone: Comment on above: Expected: 07/30/2025 (Approximate), Expi res: 07/30/2026 Start: 07-04-2025 End: 07-04-2025 Patient encounter procedure 07/04/2025 3:40 PM EDT Office Visit [address] [phone] Sancho Woodruff MD [address] [address] [facility] Start: 06-14-2025 End: 06-14-2025 Clinical Support 06/14/2025 9:30 AM EDT Clinical Support [facility] Medical [facility] Building [address] [place] [address] [facility] Start: 06-10-2025 COVID-19 Vaccine ( season) COVID-19 Vaccine ( season) [facility] Start: 06-10-2025 COVID-19 Vaccine ( season) COVID-19 Vaccine ( season) [facility] Start: 06-10-2025 COVID-19 Vaccine ( season) COVID-19 Vaccine () [facility] Start: 06-10-2025 Influenza vaccination Influenza Vaccine (#1) [facility] Start: 05-10-2025 Influenza vaccination Influenza Vaccine (#1) [facility] Start: 04-22-2025 End: 04-22-2025 Clinical Support 04/22/2025 9:30 AM EDT Clinical Support [facility] Building [address] [place] [address] [facility] Start: 04-19-2025 End: 04-19-2025 Patient encounter procedure 04/19/2025 10:00 AM EDT Office Visit [facility] [address] [place] [phone] Dariela Garza MD [address] [place] [id number] [facility] Start: 04-17-2025 End: 04-17-2025 Patient encounter procedure 04/17/2025 10:15 AM EDT Appointment [address] [phone] [facility] Start: 04-05-2025 End: 04-05-2025 Patient encounter procedure 04/05/2025 10:30 AM EDT Office Visit [facility] [address] [place] [phone] Dariela Garza MD [address] [place] [address] [facility] Start: 04-03-2025 End: 04-03-2026 CBC panel - Blood by Automated count CBC Lab Routine Mixed hyperlipidemia Expected: 04/03/2025 (Approximate), Expires: 04/03/2026 [facility] Service Area Work Phone: Comment on above: Expected: 04/03/2025 (Approximate), Expi res: 04/03/2026 Start: 04-03-2025 End: 04-03-2026 Comprehensive metabolic 2000 panel - Serum or Plasma Comprehensive Metabolic Panel Lab Routine Mixed hyperlipidemia Expected: 04/03/2025 (Approximate), Expires: 04/03/2026 [facility] Work Phone: Comment on above: Expected: 04/03/2025 (Approximate), Expi res: 04/03/2026 Start: 04-03-2025 End: 04-03-2026 CT Abdomen and Pelvis W contrast IV CT abdomen pelvis w IV contrast Imaging Routine LUQ pain Expected: 04/03/2025, Expires: 04/03/2026 [facility] Work Phone: Comment on above: Expected: 04/03/2025, Expires: Start: 04-03-2025 End: 04-03-2026 Lipid 1996 panel - Serum or Plasma Lipid Panel Lab Routine Mixed hyperlipidemia Expected: 04/03/2025 (Approximate), Expires: 04/03/2026 [facility] Work Phone: Comment on above: Expected: 04/03/2025 (Approximate), Expi res: 04/03/2026 Start: 04-03-2025 End: 04-03-2026 Thyrotropin [Units/volume] in Serum or Plasma Thyroid Stimulating Hormone Lab Routine Acquired hypothyroidism Expected: 04/03/2025 (Approximate), Expires: 04/03/2026 [facility] Work Phone: Comment on above: Expected: 04/03/2025 (Approximate), Expi res: 04/03/2026 Start: 04-03-2025 End: 04-03-2025 Patient encounter procedure 04/03/2025 11:00 AM EDT Office Visit [place] [address] [phone] Sancho Woodruff MD [address] [address] [facility] Start: 03-27-2025 End: 03-27-2025 Patient encounter procedure 03/27/2025 10:00 AM EDT Office Visit [facility] [place] [address] [place] [address] Jaylan Moscoso DO [address] [place] [address] [facility] [place] Start: 03-01-2025 End: 03-01-2025 Patient encounter procedure 03/01/2025 10:00 AM EDT Office Visit [facility] [address] [place] [phone] Dariela Garza MD [address] [place] [address] [facility] Start: 02-08-2025 End: 02-08-2025 Clinical Support 02/08/2025 10:00 AM EDT Clinical Support [facility] Medical Office Building [address] 1st [place] [phone] [facility] Medical Office Building Start: 02-06-2025 End: 02-06-2025 Patient encounter procedure 02/06/2025 1:[address] [facility] [address] [place] [phone] [facility] Start: 02-04-2025 End: 02-04-2025 Clinical Support 02/04/2025 10:00 AM EDT Clinical Support [facility] Medical Office [facility] [address] 1st [place] [address] [facility] Start: 02-01-2025 End: 02-01-2025 Patient encounter procedure 02/01/2025 10:00 AM EDT Office Visit [facility] [address] [place] [phone] Dariela Garza MD [address] [place] [phone] [facility] Start: 01-25-2025 End: 01-25-2025 Clinical Support 01/25/2025 10:00 AM EDT Clinical Support [facility] Medical Office [facility] [address] 1st [place] [address] [facility] Start: 01-23-2025 End: 01-23-2025 Clinical Support 01/23/2025 9:30 AM EDT Clinical Support [facility] Medical [facility] [address] 1st [place] [address] [facility] Start: 01-21-2025 End: 01-21-2025 Clinical Support 01/21/2025 9:30 AM EDT Clinical Support [facility] Medical [facility] [address] 1[address] [place] [address] [facility] Medical Office Building Start: 01-18-2025 End: 01-18-2026 XR Pelvis 1 or 2 Views XR pelvis 1-2 views Imaging Routine Skin ulcer, unspecified ulcer stage (Multi) Expected: 01/18/2025, Expires: 01/18/2026 [facility] Service Area Work Phone: Comment on above: Expected: 01/18/2025, Expires: Start: 01-01-2025 End: 01-01-2026 DRUG SCREEN,URINE DRUG SCREEN,URINE Lab Routine Lumbar stenosis with neurogenic claudication Controlled drug dependence (Multi) Expected: 01/01/2025 (Approximate), Expires: 01/01/2026 [facility] Service Area Work Phone: Comment on above: Expected: 01/01/2025 (Approximate), Expi res: 01/01/2026 Start: 12-25-2024 Administration of herpes zoster vaccine Zoster Vaccines (3 of 3) [facility] Start: 12-25-2024 Zoster Vaccines (3 of 3) Zoster Vaccines (3 of 3) [facility] Start: 12-12-2024 End: 12-12-2024 Patient encounter procedure 12/12/2024 11:15 AM EST Office Visit [facility] [address] [phone] Wang Borges MD [address] [facility] [address] [place] [address] [facility] Start: 11-19-2024 End: 11-19-2024 Patient encounter procedure 11/19/2024 2:00 PM EST Office Visit [place] [address] [phone] Sancho Woodruff MD [address] [address] [facility] Start: 11-13-2024 Subsequent hospital visit by physician 11/13/2024 Hospital Encounter [facility] Periop [address] [place] [address] Jaylan Moscoso DO [address] [place] [address] [facility] Start: 10-30-2024 End: 10-30-2024 Patient encounter procedure 10/30/2024 11:00 AM EST Office Visit [facility] [place] [address] [place] [address] Jose A Ornelas, REGIONAL PROGRAM MANAGER [address] [place] [address] [facility] [place] Start: 10-14-2024 Medicare Annual Wellness Visit Medicare Annual Wellness Visit (AWV) [facility] Start: 10-13-2024 History and physical examination, annual for health maintenance Wellness Visit [facility] Start: 10-13-2024 Medicare Wellness Visit Medicare Wellness Visit [facility] Start: 10-12-2024 Thyroid stimulating hormone measurement TSH Level [facility] Start: 08-13-2024 End: 08-13-2025 CBC panel - Blood by Automated count CBC Lab Routine Iron deficiency anemia, unspecified iron deficiency anemia type Expected: 08/13/2024 (Approximate), Expires: 08/13/2025 [facility] Service Area Work Phone: Comment on above: Expected: 08/13/2024 (Approximate), Expi res: 08/13/2025 Start: 08-13-2024 End: 08-13-2025 Comprehensive metabolic 2000 panel - Serum or Plasma Comprehensive Metabolic Panel Lab Routine Iron deficiency anemia, unspecified iron deficiency anemia type Expected: 08/13/2024 (Approximate), Expires: 08/13/2025 [facility] Work Phone: Comment on above: Expected: 08/13/2024 (Approximate), Expi res: 08/13/2025 Start: 07-12-2024 End: 07-12-2024 Patient encounter procedure 07/12/2024 2:40 PM EDT Office Visit [facility] [address] [place] [phone] Sancho Woodruff MD [address] [place] [address] [facility] Start: 07-11-2024 Thyroid stimulating hormone measurement TSH Level [facility] Start: 07-11-2024 End: 07-11-2024 Patient encounter procedure 07/11/2024 10:00 AM EDT Office Visit [facility] [place] [address] [place] [address] Jaylan Moscoso DO [address] [place] [address] [facility] [place] Start: 06-10-2024 COVID-19 Vaccine () COVID-19 Vaccine () [facility] Start: 06-10-2024 COVID-19 Vaccine () COVID-19 Vaccine () [facility] Start: 06-10-2024 Influenza vaccination Influenza Vaccine (#1) [facility] Start: 05-11-2024 End: 05-11-2024 Patient encounter procedure 05/11/2024 11:45 AM EDT Office Visit [facility] [place] [address] [place] [address] Jaylan Moscoso DO [address] [place] [address] [facility] [place] Start: 05-10-2024 End: 05-10-2024 Patient encounter procedure 05/10/2024 11:30 AM EDT Office Visit [facility] [address] [facility] [address] [place] [phone] Wang Borges MD [address] [facility] [address] [place] [address] [facility] Start: 04-16-2024 End: 04-16-2024 Patient encounter procedure 04/16/2024 2:40 PM EDT Office Visit [facility] [address] [facility] [place] [address] Sancho Woodruff MD [address] [place] [address] [facility] Start: 03-12-2024 End: 03-12-2025 XR Knee - left 4 Views XR knee left 4+ views Imaging Routine Acute pain of left knee Expected: 03/12/2024, Expires: 03/12/2025 [facility] Service Area Work Phone: Comment on above: Expected: 03/12/2024, Expires: Start: 02-29-2024 End: 02-21-2025 MR Cervical spine WO contrast MR Cervical Spine Without Contrast Imaging Routine Cervical radiculopathy Expected: 02/29/2024 (Approximate), Expires: 02/21/2025 [facility] Work Phone: Comment on above: Expected: 02/29/2024 (Approximate), Expi res: 02/21/2025 Start: 01-12-2024 End: 01-12-2024 Patient encounter procedure 01/12/2024 2:40 PM EDT Office Visit [facility] [address] [place] [address] Sancho Woodruff MD [address] [facility] [place] [address] [facility] Start: 12-03-2023 Thyroid stimulating hormone measurement TSH Level [facility] Start: 10-13-2023 End: 10-13-2023 Patient encounter procedure 10/13/2023 2:00 PM EST Office Visit [facility] [address] [place] [address] Sancho Woodruff MD [address] [place] [address] [facility] Start: 08-04-2023 End: 08-04-2023 Telemedicine consultation with patient 08/04/2023 1:15 PM EDT Telemedicine Telephone [facility] [address] [facility] [address] [place] [address] Wang Borges MD [address] [place] [address] [facility] Start: 07-13-2023 End: 07-13-2023 Patient encounter procedure 07/13/2023 3:00 PM EDT Office Visit [facility] [address] [facility] [place] [phone] Bridger Monique MD [address] [address] [facility] Start: 07-12-2023 End: 07-12-2023 Telemedicine consultation with patient 07/12/2023 10:45 AM EDT Telemedicine Telephone [facility] [address] [phone] Wang Borges MD [address] [facility] [address] [place] [address] [facility] Start: 07-07-2023 End: 07-07-2023 Patient encounter procedure 07/07/2023 2:40 PM EDT Office Visit [facility] [address] [place] [address] Sancho Woodruff MD [address] [place] [address] [facility] Start: 07-07-2023 End: 07-07-2024 CBC panel - Blood by Automated count CBC Lab Routine Gastrointestinal hemorrhage, unspecified gastrointestinal hemorrhage type Mixed hyperlipidemia Iron deficiency anemia, unspecified iron deficiency anemia type Acquired hypothyroidism Expected: 07/07/2023 (Approximate), Expires: 07/07/2024 [facility] Service Area Work Phone: Comment on above: Expected: 07/07/2023 (Approximate), Expi res: 07/07/2024 Start: 07-07-2023 End: 07-07-2024 Comprehensive metabolic 2000 panel - Serum or Plasma Comprehensive Metabolic Panel Lab Routine Mixed hyperlipidemia Expected: 07/07/2023 (Approximate), Expires: 07/07/2024 [facility] Work Phone: Comment on above: Expected: 07/07/2023 (Approximate), Expi res: 07/07/2024 Start: 07-07-2023 End: 07-07-2024 Lipid 1996 panel - Serum or Plasma Lipid Panel Lab Routine Mixed hyperlipidemia Expected: 07/07/2023 (Approximate), Expires: 07/07/2024 [facility] Work Phone: Comment on above: Expected: 07/07/2023 (Approximate), Expi res: 07/07/2024 Start: 07-07-2023 End: 07-07-2024 Thyrotropin [Units/volume] in Serum or Plasma Thyroid Stimulating Hormone Lab Routine Acquired hypothyroidism Expected: 07/07/2023 (Approximate), Expires: 07/07/2024 [facility] Work Phone: Comment on above: Expected: 07/07/2023 (Approximate), Expi res: 07/07/2024 Start: 06-10-2023 COVID-19 Vaccine ( season) COVID-19 Vaccine ( season) [facility] Start: 06-10-2023 Influenza vaccination [facility] Start: 06-10-2023 End: 06-10-2023 Follow-up encounter 06/10/2023 1:30 PM EDT Follow-Up [facility] [address] [facility] [place] [address] Shawn Mcmillan PA-C [address] [place] [address] [place] [address] [facility] Start: 06-03-2023 End: 06-03-2023 Clinical Support 06/03/2023 2:00 PM EDT Clinical Support [facility] [address] [facility] [place] [address] [facility] Start: 06-02-2023 End: 06-02-2023 Follow-up encounter 06/02/2023 2:00 PM EDT Follow-Up [facility] [address] [facility] [place] [address] Dada Gee PA-C [address] [address] [facility] Start: 05-26-2023 Medicare Annual Wellness Visit Medicare Annual Wellness Visit (AWV) [facility] Start: 05-25-2023 End: 05-25-2023 Clinical Support 05/25/2023 2:30 PM EDT Clinical Support [facility] [address] [facility] [place] [address] [facility] Start: 05-19-2023 End: 05-19-2023 LAMINECTOMY DECOMPRESSION LUMBAR WITH FUSION NAVIGATIONAL 1 LEVEL LAMINECTOMY DECOMPRESSION LUMBAR WITH FUSION NAVIGATIONAL 1 LEVEL Sacral insufficiency fracture with delayed healing 05/19/2023 7:46 AM EDT [facility] Start: 05-06-2023 End: 05-06-2023 Admission to same day surgery center 05/06/2023 11:40 AM EDT - 05/06/2023 5:00 PM EDT Surgery [facility] [address] [place] [address] Bridger Monique MD [address] [address] Rigiht Sacral 2- Iliac Fixation and Fusion with Sacroplasty [facility] Comment on above: Rigiht Sacral 2- Iliac Fixation and Fusi on with Sacroplasty Start: 05-06-2023 End: 05-06-2023 Anesthesia consultation 05/06/2023 11:40 AM EDT Anesthesia Event [facility] [address] [place] [address] Luis M Calvert MD [address] [place] [address] [facility] Start: 05-06-2023 End: 05-06-2023 LAMINECTOMY DECOMPRESSION LUMBAR WITH FUSION NAVIGATIONAL 1 LEVEL LAMINECTOMY DECOMPRESSION LUMBAR WITH FUSION NAVIGATIONAL 1 LEVEL Sacral insufficiency fracture with delayed healing 05/06/2023 11:40 AM EDT [facility] Start: 05-06-2023 Subsequent hospital visit by physician 05/06/2023 11:40 AM EDT Hospital Encounter [facility] [address] [facility] [place] [phone] Bridger Monique MD [address] [facility] [address] [place] [address] [facility] Start: 04-11-2023 End: 04-11-2023 Patient encounter procedure 04/11/2023 1:45 PM EDT Office Visit [facility] [address] [place] [address] Sancho Woodruff MD [address] [place] [address] Wang Borges MD [address] [place] [address] [address] [place] [address] [facility] Start: 03-28-2023 NPV, Provider: Oksana Ocampo, Status: Pen, Time: 10:45 AM NPV, Provider: Oksana Ocampo, Status: Pen, Time: 10:45 AM [facility]us Work Phone: Start: 02-17-2023 EPV, Provider: Sancho Woodruff, Status: Pen, Time: 2:40 PM EPV, Provider: Sancho Woodruff, Status: Pen, Time: 2:40 PM [facility] Work [facility]: Start: 02-17-2023 End: 02-18-2024 Comprehensive metabolic 2000 panel - Serum or Plasma [facility] Service Area Work Phone: Comment on above: Expected: 02/17/2023 (Approximate), Expi res: 02/18/2024 Start: 02-10-2023 FUV, Provider: Burt Calhoun, Status: Pen, Time: 2:30 PM FUV, Provider: Burt Calhoun, Status: Pen, Time: 2:30 PM [facility] Work Phone: Start: 02-10-2023 Patient encounter procedure [facility] Start: 01-19-2023 PTRECHECKA, Provider: Elina Diaz, Status: Pen, Time: 2:30 PM PTRECHECKA, Provider: Elina Diaz, Status: Pen, Time: 2:30 PM [facility] Work Phone: Start: 01-17-2023 End: 01-18-2024 [facility] Start: 01-12-2023 PTFUADULT4, Provider: Elina Diaz, Status: Pen, Time: 2:30 PM PTFUADULT4, Provider: Elina Diaz, Status: Pen, Time: 2:30 PM [facility] Work Phone: Start: 01-06-2023 FUV, Provider: Burt Calhoun, Status: Pen, Time: 1:00 PM FUV, Provider: Burt Calhoun, Status: Pen, Time: 1:00 PM [facility] Work Phone: Start: 01-05-2023 PTFUADULT4, Provider: Cecilia Richardson, Status: Pen, Time: 2:45 PM PTFUADULT4, Provider: Cecilia Richardson, Status: Pen, Time: 2:45 PM [facility] Work Phone: Start: 12-29-2022 PTFUADULT4, Provider: Elina Diaz, Status: Pen, Time: 2:45 PM PTFUADULT4, Provider: Elina Diaz, Status: Pen, Time: 2:45 PM [facility] Work Phone: Start: 12-15-2022 PTRECHECKA, Provider: Elina Diaz, Status: Pen, Time: 2:30 PM PTRECHECKA, Provider: Elina Diaz, Status: Pen, Time: 2:30 PM -[facility] Work Phone: Start: 12-13-2022 PTFUADULT4, Provider: Cecilia Richardson, Status: Pen, Time: 2:00 PM PTFUADULT4, Provider: Cecilia Richardson, Status: Pen, Time: 2:00 PM -[facility] Work Phone: Start: 12-08-2022 PTFUADULT4, Provider: Elina Diaz, Status: Pen, Time: 3:15 PM PTFUADULT4, Provider: Elina Diaz, Status: Pen, Time: 3:15 PM -[facility] Work Phone: Start: 12-06-2022 PTFUADULT4, Provider: Cecilia Richardson, Status: Pen, Time: 2:00 PM PTFUADULT4, Provider: Cecilia Richardson, Status: Pen, Time: 2:00 PM -[facility] Work Phone: Start: 12-01-2022 PTFUADULT4, Provider: Elina Diaz, Status: Pen, Time: 1:45 PM PTFUADULT4, Provider: Elina Diaz, Status: Pen, Time: 1:45 PM -[facility] Work Phone: Start: 11-29-2022 PTFUADULT4, Provider: Cecilia Richardson, Status: Pen, Time: 2:00 PM PTFUADULT4, Provider: Cecilia Richardson, Status: Pen, Time: 2:00 PM [facility] Work Phone: Start: 11-24-2022 PTFUADULT4, Provider: Cecilia Richardson, Status: Pen, Time: 11:30 AM PTFUADULT4, Provider: Cecilia Richardson, Status: Pen, Time: 11:30 AM [facility] Work Phone: Start: 11-22-2022 PTFUADULT4, Provider: Cecilia Richardson, Status: Pen, Time: 2:00 PM PTFUADULT4, Provider: Cecilia Richardson, Status: Pen, Time: 2:00 PM [facility] Work Phone: Start: 11-18-2022 EPV, Provider: Sancho Woodruff, Status: Pen, Time: 2:40 PM EPV, Provider: Sancho Woodruff, Status: Pen, Time: 2:40 PM [facility] Work Phone: Start: 11-08-2022 PTEVAADULT, Provider: Larisa Walker, Status: Pen, Time: 2:00 PM PTEVAADULT, Provider: Larisa Walker, Status: Pen, Time: 2:00 PM [facility] Work Phone: Start: 11-04-2022 EPV, Provider: Sancho Woodruff, Status: Pen, Time: 3:00 PM EPV, Provider: Sancho Woodruff, Status: Pen, Time: 3:00 PM [facility] Work Phone: Start: 11-04-[address] [facility] Start: 10-09-2022 Screening for osteoporosis Bone Density Scan [facility] Start: 08-03-2022 EPV, Provider: Sancho Woodruff, Status: Pen, Time: 3:40 PM EPV, Provider: Sancho Woodruff, Status: Pen, Time: 3:40 PM [facility] Work Phone: Start: 06-28-2022 End: 06-28-2022 Patient encounter procedure 06/28/2022 Office Visit Orthopedic Surgery Sancho Castaneda MD [address] [place], [place] [phone] [facility] Start: 06-16-2022 COLON, Provider: Oksana Ocampo, Status: Pen, Time: 9:00 AM COLON, Provider: Oksana Ocampo, Status: Pen, Time: 9:00 AM [facility] Work Phone: Start: 06-10-2022 Influenza vaccination Sequential Influenza Vaccine (#1) [facility] Start: 05-26-2022 End: 05-26-2022 Telemedicine consultation with patient 05/26/2022 Telemedicine Telephone Cardiology Wang Borges MD [address] [facility] [address] [place] [address] [facility] Start: 05-13-2022 End: 05-13-2022 Clinical Support 05/13/2022 Clinical Support Sports Christine Charlton, REGIONAL PROGRAM MANAGER [address] [place] [address] [facility] Start: 05-04-2022 EPV, Provider: Sancho Woodruff, Status: Pen, Time: 9:20 AM EPV, Provider: Sancho Woodruff, Status: Pen, Time: 9:20 AM [facility] Work Phone: Start: 03-09-2022 End: 03-09-2022 Patient encounter procedure 03/09/2022 Office Visit Cardiology Wang Borges MD [address] [facility] [address] [place] [address] [facility] Start: 02-10-2022 End: 02-10-2022 Clinical Support 02/10/2022 Clinical Support Sports Christine Charlton, REGIONAL PROGRAM MANAGER [address] [place] [address] [facility] Start: 02-03-2022 EPV, Provider: Sancho Woodruff, Status: Pen, Time: 9:40 AM EPV, Provider: Sancho Woodruff, Status: Pen, Time: 9:40 AM -[facility] Work Phone: Start: 12-29-2021 COVID-19 Vaccine (4 - Booster for Pfizer series) COVID-19 Vaccine (4 - Booster for Pfizer series) [facility] Start: 11-05-2021 EPV, Provider: Sancho Woodruff, Status: Pen, Time: 9:40 AM EPV, Provider: Sancho Woodruff, Status: Pen, Time: 9:40 AM [facility] Work Phone: Start: 10-26-2021 COVID-19 Vaccine (4 - Booster for Pfizer series) COVID-19 Vaccine (4 - Booster for Pfizer series) [facility] Start: 10-26-2021 COVID-19 Vaccine (4 - Pfizer series) COVID-19 Vaccine (4 - Pfizer series) [facility] Start: 08-07-2021 EPV, Provider: Sancho Woodruff, Status: Pen, Time: 10:40 AM EPV, Provider: Sancho Woodruff, Status: Pen, Time: 10:40 AM [facility] Work Phone: Start: 07-13-2021 DTaP/Tdap/Td Vaccines (2 - Td or Tdap) DTaP/Tdap/Td Vaccines (2 - Td or Tdap) [facility] Start: 07-13-2021 Tetanus vaccination [facility] Start: 06-28-2021 COVID-19 Vaccine (3 - Pfizer booster) COVID-19 Vaccine (3 - Pfizer booster) [facility] Start: 06-10-2021 Influenza vaccination Sequential Influenza Vaccine (#1) [facility] Start: 05-06-2021 EPV, Provider: Sancho Woodruff, Status: Pen, Time: 10:40 AM EPV, Provider: Sancho Woodruff, Status: Pen, Time: 10:40 AM [facility] Work Phone: Start: 11-28-2020 End: 11-28-2020 Office Visit 11/28/2020 Office Visit Sports Medicine Dada Hathaway MD [address] [facility] [place] [address] [phone] [facility] Start: 11-28-2020 End: 11-28-2020 Office Visit 11/28/2020 Office Visit Sports Medicine Dada Hathaway MD [address] [place] [address] [phone] [facility] Start: 11-19-2020 End: 11-19-2020 Office Visit 11/19/2020 Office Visit Cardiology Wang Borges MD [address] [facility] [address] [place] [address] [phone] [facility] Office Start: 10-08-2020 Screening for malignant neoplasm of breast Mammogram [facility] Start: 10-08-2020 Screening mammography Mammogram [facility] Start: 06-10-2020 Influenza vaccination given [facility] Start: 02-12-2020 End: 02-12-2020 Appointment 02/12/2020 Appointment Radiology Wang Borges MD [address] [facility] [address] [place] [address] [phone] [facility] CT Scan Start: 01-08-2020 End: 01-08-2020 Appointment 01/08/2020 Appointment Radiology Wang Borges MD [address] [facility] [address] [place] [address] [phone] [facility] CT Scan Start: 01-07-2020 End: 01-07-2020 Follow-Up 01/07/2020 Follow-Up Sports Dada Gomez MD 45 [place] [address] [phone] [facility] Start: 12-17-2019 End: 12-17-2019 Follow-Up 12/17/2019 Follow-Up Sports Medicine Dada Hathaway MD 45 [place] [address] [phone] [facility] Start: 11-29-2019 End: 11-29-2019 Hospital Encounter [facility] Periop Comment on above: Reverse right total shoulder replacement Start: 11-20-2019 End: 11-20-2019 Appointment 11/20/2019 Appointment Cardiology Wang Borges MD [address] [facility] [address] [place] [address] [phone] [facility] Start: 11-14-2019 End: 11-14-2019 Office Visit 11/14/2019 Office Visit Cardiology Dada Hathaway MD [address] [place] [address] [phone] Wang Borges MD [address] [facility] [address] [place] [address] [phone] [facility] Office Start: 11-12-2019 End: 11-12-2019 Surgical Consult 11/12/2019 Surgical Consult Sports Medicine Dada Hathaway MD [address] [place] [address] [phone] [facility] Start: 10-08-2019 End: 10-08-2019 Appointment 10/08/2019 Appointment Radiology Sancho Woodruff MD [address] [place] [address] [phone] [facility] Mammography Start: 09-26-2019 End: 09-26-2019 Treatment 09/26/2019 Treatment Rehabilitation Dada Hathaway MD [address] [place] [address] [phone] Sadaf Cardenas, PT [facility] Start: 09-19-2019 End: 09-19-2019 Treatment 09/19/2019 Treatment Rehabilitation Dada Hathaway MD [address] [place], [facility] [phone] [facility] Start: 09-17-2019 End: 09-17-2019 Treatment 09/17/2019 Treatment Rehabilitation Dada Hathaway MD [address] [place] [id number] [phone] [facility] Start: 09-14-2019 End: 09-14-2019 Treatment 09/14/2019 Treatment Rehabilitation Dada Hathaway MD [address] [place], [facility] Debi Lord [facility] Start: 09-11-2019 End: 09-11-2019 Treatment [facility] Start: 09-07-2019 End: 09-07-2019 Treatment 09/07/2019 Treatment Rehabilitation Dada Hathaway MD [address] [place] [id number] [phone] Debi Lord [facility] Start: 09-04-2019 End: 09-04-2019 Treatment 09/04/2019 Treatment Rehabilitation Dada Hathaway MD [address] [place] [id number] [phone] Debi Lord [facility] Start: 08-30-2019 End: 08-30-2019 Treatment 08/30/2019 Treatment Rehabilitation Dada Hathaway MD [address] [place] [address] [phone] Xochilt Lyon [facility] Start: 08-28-2019 End: 08-28-2019 Treatment [facility] Start: 08-23-2019 End: 08-23-2019 Treatment 08/23/2019 Treatment Rehabilitation Dada Hathaway MD [address] [place] [phone] Xochilt Lyon [facility] Start: 08-23-2019 End: 08-23-2019 Treatment 08/23/2019 Treatment Rehabilitation Dada Hathaway MD [address] [place] [address] Xochilt Lyon [facility] Start: 08-21-2019 End: 08-21-2019 Treatment 08/21/2019 Treatment Rehabilitation Dada Hathaway MD [address] [place] [address] [phone] Sad[facility] Start: 08-17-2019 End: 08-17-2019 Treatment 08/17/2019 Treatment Rehabilitation Dada Hathaway MD [address] [place] [address] Xochilt Lyon [facility] Start: 08-14-2019 End: 08-14-2019 Treatment 08/14/2019 Treatment Rehabilitation Dada Hathaway MD [place] [address] [phone] Debi Lord [facility] Start: 08-14-2019 End: 08-14-2019 Treatment 08/14/2019 Treatment Rehabilitation Dada Hathaway MD [address] [place] [id number] [phone] Debi Lord [facility] Start: 08-09-2019 End: 08-09-2019 Treatment 08/09/2019 Treatment Rehabilitation Dada Hathaway MD [address] [place] [id number] Xochilt Lyon [facility] Start: 08-07-2019 End: 08-07-2019 Treatment [facility] Start: 08-03-2019 End: 08-03-2019 Treatment 08/03/2019 Treatment Rehabilitation Dada Hathaway MD [address] [place] [address] [phone] Debi Lord PTA [facility] Start: 06-10-2019 Influenza vaccination given [facility] Start: 06-10-2018 Influenza vaccination SEQUENTIAL INFLUENZA VACCINE (#1) [facility] Start: 04-24-2018 End: 04-24-2018 Ambulatory 04/24/2018 Office Visit Sports Medicine Dada Hathaway MD [address] [place] [address] [phone] [facility] Start: 08-11-2017 Pneumococcal vaccination PNEUMOCOCCAL VACCINE AGE 65+ (2 of 2 - PCV13) [facility] Start: 06-10-2017 Influenza vaccination SEQUENTIAL INFLUENZA VACCINE (#1) [facility] Start: 2016 Respiratory Syncytial Virus Immunization: Risk, 60-74 Risk, or 75+ (1 - 1-dose 75+ series) Respiratory Syncytial Virus Immunization: Risk, 60-74 Risk, or 75+ (1 - 1-dose 75+ series) [facility] Start: 2016 RSV High Risk: (Elderly (60+) or Population) (1 - 1-dose 75+ series) RSV High Risk: (Elderly (60+) or Population) (1 - 1-dose 75+ series) [facility] Start: 05-20-2016 History and physical examination, annual for health maintenance Wellness Visit [facility] Start: 10-02-2014 Screening mammography Mammogram [facility] Start: 03-11-2011 Administration of herpes zoster vaccine Zoster Vaccines (2 of 3) [facility] Start: 03-11-2011 Zoster Vaccines (2 of 3) Zoster Vaccines (2 of 3) [facility] Start: 2006 Fall risk assessment Falls Risk Assessment [facility] Start: 2001 RSV patients and/or patients aged 60+ years (1 - 1-dose 60+ series) RSV patients and/or patients aged 60+ years (1 - 1-dose 60+ series) [facility] Start: 2001 Zoster vacc, sc ZOSTER VACCINE [facility] Start: 12-28-1991 Administration of herpes zoster vaccine Zoster Vaccines (1 of 2) [facility] Start: 12-28-1991 ZOSTER VACCINES (1 of 2) ZOSTER VACCINES (1 of 2) [facility] Start: 1960 Hepatitis A Vaccines (1 of 2 - Risk 2-dose series) Hepatitis A Vaccines (1 of 2 - Risk 2-dose series) [facility] Start: 12-28-1959 Diabetes mellitus screening Diabetes Screening [facility] Start: 12-28-1959 Hepatitis C antibody, confirmatory test Hepatitis C Screening [facility] Start: 12-28-1959 Hepatitis C screening Hepatitis C Screening [facility] Start: 1957 COVID-19 Vaccine (1 of 2) COVID-19 Vaccine (1 of 2) [facility] Start: 1953 Adolescent depression screening assessment Depression Screening (PHQ9) [facility] Start: 1953 Depression screening using PHQ-9 (Patient Health Questionnaire 9) score [facility] Start: 1944 History and physical examination, annual for health maintenance Wellness Visit [facility] Start: 1942 Hepatitis A Vaccines (1 of 2 - Risk 2-dose series) Hepatitis A Vaccines (1 of 2 - Risk 2-dose series) [facility] Start: 06-29-1942 Examination of skin Derm Melanoma Skin Check [facility] Start: 1941 Depression screening using PHQ-9 (Patient Health Questionnaire 9) score DEPRESSION SCREENING (PHQ9) [facility] Start: 1941 Fall risk assessment Falls Risk Assessment [facility] Start: 1941 Medicare Annual Wellness Visit Medicare Annual Wellness Visit (AWV) [facility] Start: 1941 Physical therapy management PT PLAN OF CARE [facility] Start: 1941 Screening for osteoporosis DEXA SCAN [facility] Start: 1941 Screening for substance abuse SUBSTANCE ABUSE SCREENING (AUDIT-C) [facility] Start: 1941 Screening mammography Mammogram [facility] Start: 1941 Tetanus vaccination TETANUS EVERY 10 YR [facility] 12 lead ECG ECG 12 lead ECG Routine Paroxysmal atrial fibrillation (HCC) 12/12/2024 11:26 AM EST [facility] Work Phone: Abdominal adhesions Abdominal adhesions [facility] Abdominal tumor Abdominal tumor [facility] Blood type and Indir ect antibody screen panel - Blood Type and screen Blood Bank Routine Pre-op testing 05/05/2023 7:38 AM EDT [facility] End: 04-17-2025 CT Abdomen and Pelvis W contrast IV [facility] Work Phone: Comment on above: Once for 1 Occurrences starting 04/17/20 until 04/17/2025 End: 02-06-2025 CT Pelvis W contrast IV [facility] a Work Phone: Comment on above: Once for 1 Occurrences starting 02/07/20 until 02/06/2025 History of appendectomy History of appendectomy [facility] History of cataract extraction H istory of cataract extraction [facility] History of cholecystectomy Histo ry of cholecystectomy [facility] History of colonoscopy History of colonos copy [facility] History of colonoscopy History of colonos copy [facility] History of laparoscopy History of laparos copy [facility] History of operative procedure on foot History of foot surgery [facility] History of operative procedure on knee History of knee replacement [facility] History of operative procedure on shoulder History of shoulder replacement [facility] History of tonsillectomy History of tonsillectomy and adenoidectomy [facility] History of total hip arthroplasty History of total hip replacement [facility] INJECTION EPIDURAL S TEROIDS CERVICAL INJECTION EPIDURAL STEROIDS CERVICAL Cervical radiculopathy [facility] Methicillin resistan t Staphylococcus aureus [Presence] in Unspecified specimen by Organism specific culture MRSA Culture/Screen Microbiology Routine Pre-op testing 05/05/2023 7:38 AM EDT [facility] Njx dx/ther sbst int rlmnr crv/thrc w/img gdn INJECTION EPIDURAL STEROIDS CERVICAL Cervical radiculopathy [facility] End: 05-19-2023 POC ABG SURG - RALS [facility] Comment on above: Once for 1 Occurrences starting 05/19/20 until 05/19/2023, 1 completed Procedure on tissue specimen [facility] Comment on above: Release Upon Ordering for 1 Occurrences starting 11/29/2019, 1 completed End: 11-14-2020 Radionuclide myocardial perfusion study NM Myocardial Perfusion Multiple SPECT Imaging Routine Preop cardiovascular exam Atrial fibrillation, unspecified type (HCC) Essential hypertension 1 Occurrences starting 11/14/2019 until 11/14/2020 [facility] Comment on above: 1 Occurrences starting 11/14/2019 until 11/14/2020 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 Standard chest X-ray XR Chest AP /PA and LAT Imaging Routine Pre-op testing 05/05/2023 9:02 AM EDT [facility] Work Phone: End: 05-19-[address] Pelvis Without Contrast [facility] Comment on above: One time imaging One time imaging for 1 Occurrences starting 05/19/2023 until 05/19/2023 End: 03-13-2024 XR Knee - left 4 Views [facility] Service Area Work Phone: Comment on above: Once for 1 Occurrences starting 03/13/20 24 until 03/13/2024 End: 06-22-2023 XR Lumbar Spine 2-3 Views (Standard) XR Lumbar Spine 2-3 Views (Standard) Imaging Routine Pain 1 Occurrences starting 06/22/2022 until 06/22/2023 [facility] Work Phone: Comment on above: 1 Occurrences starting 06/22/2022 until 06/22/2023 End: 05-19-2023 XR OR Pelvis 1-2 VIEWS [facility] Work Phone: Comment on above: One time imaging One time imaging for 1 Occurrences starting 05/19/2023 until 05/19/2023 Immunizations Immunization Date Immunization Notes Care Provider Ned begum 10-30-2024 zoster vaccine recombinant Sancho Woodruff MD Work Phone: [facility] Work Phone: 09-13-2024 influenza, high dose seasonal, preservative-free Sancho Woodruff MD Work Phone: [facility] Work Phone: 09-13-2024 influenza virus vacc ine, unspecified formulation [address] Work Phone: 08-25-2023 Flu vaccine, quadrivalent, high-dose, preservative free, age 65y+ (FLUZONE) Sancho Woodruff MD Work Phone: [facility] Work Phone: 08-25-2023 influenza virus vacc ine, unspecified formulation Sancho Woodruff MD Work Phone: [facility] Work Phone: 08-15-2023 influenza, high dose seasonal, preservative-free Sancho Woodruff MD Work Phone: [facility] Work Phone: 10-08-2022 Prevnar 20 0.5 ML Intramuscular Suspension Prefilled Syringe Sancho Woodruff Work Phone: [facility] Work Phone: 07-01-2022 influenza, high dose seasonal, preservative-free Sancho Woodruff Work Phone: [facility] Work Phone: 07-01-2022 influenza virus vacc ine, unspecified formulation Sancho Woodruff MD Work Phone: [facility] Work Phone: 08-31-2021 Pfizer-BioNTech COVI D-19 Vacc 30 MCG/0.3ML Intramuscular Suspension Sancho Woorduff Work Phone: [facility] Work Phone: 07-30-2021 influenza, high dose seasonal, preservative-free Sancho Woodruff Work Phone: [facility] 07-06-2021 influenza, high dose seasonal, preservative-free Sancho Woodruff MD Work Phone: [facility] Work Phone: 12-26-2020 Pfizer-BioNTech COVI D-19 Vacc 30 MCG/0.3ML Intramuscular Suspension Sancho Woodruff Work Phone: [facility] Work Phone: Comment on above: Series: 12-05-2020 Pfizer-BioNTech COVI D-19 Vacc 30 MCG/0.3ML Intramuscular Suspension Sancho Woodruff Work Phone: [facility] Work Phone: Comment on above: Series: 08-04-2020 pneumococcal conjuga te vaccine, 13 valent; Translations: [Prevnar 13 Intramuscular Suspension] Sancho Woodruff [facility] Work Phone: Comment on above: Series: 06-18-2020 influenza, high dose seasonal, preservative-free Sancho Woodruff MD Work Phone: [facility] Work Phone: 06-18-2020 influenza, seasonal, injectable Sancho Woodruff Work Phone: [facility] Work Phone: Comment on above: Series: 06-17-2020 influenza, seasonal, injectable Sancho Woodruff [facility] Work Phone: Comment on above: Series: 06-10-2020 influenza, seasonal, injectable Sancho Woodruff [facility] Work Phone: 09-19-2019 influenza, high dose seasonal, preservative-free Sancho Woodruff MD Work Phone: [facility] Work Phone: 09-19-2019 influenza, seasonal, injectable Sancho Woodruff [facility] Work Phone: Comment on above: Series: 09-21-2018 influenza, high dose seasonal, preservative-free Sancho Woodruff Work Phone: [facility] Work Phone: 04-24-2018 hepatitis B vaccine, adult dosage Sancho Woodruff [facility] Work Phone: Comment on above: Series: 10-20-2017 hepatitis B vaccine, adult dosage Sancho Woodruff [facility] Work Phone: Comment on above: Series: 09-12-2017 hepatitis B vaccine, adult dosage Sancho Jaraabdirizak [facility] Work Phone: Comment on above: Series: 08-11-2016 influenza, high dose seasonal, preservative-free; Translations: [INFLUENZA IIV3 HIGH DOSE 65 AND OLDER] Dada Hathaway [facility] 08-11-2016 pneumococcal polysaccharide vaccine, 23 valent; Translations: [PNEUMOCOCCAL POLYSACCHARIDE (PNEUMOVAX)] Dada Hathaway [facility] Comment on above: Series: 08-11-2016 pneumococcal polysaccharide vaccine, 23 valent Sancho Estefaniabdirizak [facility] Work Phone: 08-14-2013 influenza virus vacc ine, whole virus Sancho Becker Stencel Work Phone: [facility] Work Phone: 07-13-2011 tetanus toxoid, redu keny diphtheria toxoid, and acellular pertussis vaccine, adsorbed Sancho Estefaniabdirizak [facility] Work Phone: Comment on above: Series: 01-14-2011 zoster vaccine, live Sancho Jaraabdirizak [facility] Work Phone: Comment on above: Series: 01-28-2010 pneumococcal polysaccharide vaccine, 23 valent Sancho Estefaniabdirizak [facility] Work Phone: Comment on above: Series: 09-26-2009 novel influenza-H1N1 -09, preservative-free, injectable Sancho Becker Stencel Work Phone: [facility] Work Phone: 07-24-2009 influenza virus vacc ine, whole virus Sancho D Stencel Work Phone: [facility] Work Phone: 08-29-2008 influenza virus vacc ine, whole virus Sancho D Stencel Work Phone: [facility] Work Phone: 08-24-2007 influenza virus vacc ine, whole virus Sancho D Stencel Work Phone: [facility] Work Phone: 06-10-2007 pneumococcal polysaccharide vaccine, 23 valent Sancho Woodruff [facility] Work Phone: Comment on above: Series: 11-21-1995 hepatitis B vaccine, adult dosage Sancho Woodruff MD Work Phone: [facility] Work Phone: 11-21-1995 hepatitis B vaccine, pediatric or pediatric/adolescent dosage Sancho Woodruff [facility] Work Phone: Comment on above: Series: 06-20-1995 hepatitis B vaccine, adult dosage Sancho Woodruff MD Work Phone: [facility] Work Phone: 06-20-1995 hepatitis B vaccine, pediatric or pediatric/adolescent dosage Sancho Woodruff [facility] Work Phone: Comment on above: Series: 05-16-1995 hepatitis B vaccine, pediatric or pediatric/adolescent dosage Sancho Woodruff [facility] Work Phone: Comment on above: Series: 12-08-1992 tetanus and diphther ia toxoids, adsorbed, preservative free, for adult use (2 Lf of tetanus toxoid and 2 Lf of diphtheria toxoid) Sancho Woodruff [facility] Work Phone: Comment on above: Series: Payers Date Payer Category Payer Self-pay 10-10-2015 Managed Care (unspecified) 1 [id number] 10-10-2015 Medicare supplementa l policy (as second payer) [employer] MEDICARE SUPPLEMENT [id number] 10-10-2015 Private Health Insurance xxx [id number] 10-10-2015 Private Health Insurance xxx [id number] [id number] 10-10-2015 Private Health Insurance [id number] 10-10-2012 Medicare [id number] 12-08-2006 Medicare MEDICARE MEDICAR E PART A & B xxxxxxxxxxx 2006-Present [place] xxxxxxxxxxx [id number] 12-08-2006 Medicare [id number] [id number] 12-08-2006 Medicare [id number] 1.13.385. [id number] 12-08-2006 Unknown 12-08-2006 Medicare [id number] 1941 Unknown [id number] 2.16.840.1.194047.3.579. 2.900 1941 Unknown [id number] 2.16.840.1.838681.3.579. 2.1069 1941 Unknown [id number] 2.16.840.1.477307.3.579. 2.1069 1941 Unknown [id number] 2.16.840.1.676892.3.579. 2.1069 1941 Unknown [id number] 2.16.840.1.198635.3.579. 2.1068 1941 Unknown [id number] 2.16.840.1.845205.3.579. 2.1068 1941 Unknown [id number] 2.16.840.1.849381.3.579. 2.1068 1941 Unknown [id number] 2.16.840.1.179782.3.579. 2.1068 1941 Unknown [id number] 2.16.840.1.111719.3.579. 2.1068 1941 Unknown [id number] 2.16.840.1.470862.3.579. 2.1068 1941 Unknown [id number] 2.16.840.1.826113.3.579. 2.1068 1941 Unknown [id number] 2.16.840.1.374139.3.579. 2.1068 1941 Unknown [id number] 2.16.840.1.112773.3.579. 2.1068 1941 Unknown [id number] 2.16.840.1.193667.3.579. 2.1068 1941 Unknown [id number] 2.16.840.1.316399.3.579. 2.1068 1941 Unknown [id number] 2.16.840.1.720361.3.579. 2.1068 1941 Unknown [id number] 2.16.840.1.285898.3.579. 2.1068 1941 Unknown [id number] 2.16.840.1.915191.3.579. 2.2 1941 Unknown [id number] 2.16.840.1.928453.3.579. 2.356 1941 Unknown [id number] 2.16.840.1.343162.3.579. 2.356 1941 Unknown [id number] 2.16.840.1.134314.3.579. 2.356 1941 Unknown [id number] 2.16.840.1.795162.3.579. 2.124 1941 Unknown [id number] 2.16.840.1.152696.3.579. 2.124 1941 Unknown [id number] 2..840.1.262233.3.579. 2.124 1941 Unknown [id number] 2..840.1.498837.3.579. 2.90 1941 Unknown [id number] 2.840.1.945462.3.579. 2.90 1941 Unknown [id number] 2.840.1.009122.3.579. 2.90 1941 Unknown [id number] 2.840.1.965917.3.579. 2.90 1941 Unknown [id number] 2.840.1.350758.3.579. 2.903 1941 Unknown [id number] 2.840.1.422541.3.579. 2.903 1941 Unknown [id number] 2.840.1.149805.3.579. 2.90 1941 Unknown [id number] 2..840.1.719386.3.579. 2.903 1941 Unknown [id number] 2..840.1.876094.3.579. 2.124 1941 Unknown [id number] 2.16.840.1.626298.3.579. 2.124 1941 Unknown [id number] 2..840.1.542476.3.579. 2.124 1941 Unknown [id number] 2.16.840.1.765443.3.579. 2.1242 1941 Unknown [id number] 2.16.840.1.741030.3.579. 2.1242 1941 Unknown [id number] 2.16.840.1.156999.3.579. 2.1242 1941 Unknown [id number] 2.16.840.1.310103.3.579. 2.1242 1941 Unknown [id number] 2.16.840.1.662757.3.579. 2.1242 1941 Unknown [id number] 2.16.840.1.936069.3.579. 2.1242 1941 Unknown [id number] 2.16.840.1.951333.3.579. 2.1242 1941 Unknown [id number] 2.16.840.1.937585.3.579. 2.1242 1941 Unknown [id number] 2.16.840.1.138996.3.579. 2.1242 1941 Unknown [id number] 2.16.840.1.112015.3.579. 2.1242 1941 Unknown [id number] 2.16.840.1.966877.3.579. 2.1242 1941 Unknown [id number] 2.16.840.1.085946.3.579. 2.1242 1941 Unknown [id number] 2.16.840.1.942756.3.579. 2.1242 1941 Unknown [id number] 2.16.840.1.307144.3.579. 2.1242 1941 Unknown [id number] 2.16.840.1.831874.3.579. 2.1242 1941 Unknown [id number] 2.16.840.1.773070.3.579. 2.124 1941 Unknown [id number] 2.16.840.1.159166.3.579. 2.1242 1941 Unknown [id number] 2.16.840.1.413819.3.579. 2.1242 1941 Unknown [id number] 2.16.840.1.521660.3.579. 2.1242 1941 Unknown [id number] 2.16.840.1.724174.3.579. 2.1242 1941 Unknown [id number] 2.16.840.1.823088.3.579. 2.1242 1941 Unknown [id number] 2.16.840.1.602377.3.579. 2.1242 1941 Unknown [id number] 2.16.840.1.272070.3.579. 2.1242 1941 Unknown [id number] 2.16.840.1.010653.3.579. 2.1242 1941 Unknown [id number] 2.16.840.1.244899.3.579. 2.1242 1941 Unknown [id number] 2.16.840.1.507670.3.579. 2.1242 1941 Unknown [id number] 2.16.840.1.802602.3.579. 2.1242 1941 Unknown [id number] 2.16.840.1.206958.3.579. 2.1242 1941 Unknown [id number] 2.16.840.1.930244.3.579. 2.1242 1941 Unknown [id number] 2.16.840.1.986531.3.579. 2.1242 1941 Unknown [id number] 2.16.840.1.216765.3.579. 2.1242 1941 Unknown [id number] 2.16.840.1.477441.3.579. 2.1242 1941 Unknown [id number] 2.16.840.1.077210.3.579. 2.1242 1941 Unknown [id number] 2.16.840.1.306241.3.579. 2.1242 1941 Unknown [id number] 2.16.840.1.828700.3.579. 2.1242 1941 Unknown [id number] 2.16.840.1.744021.3.579. 2.1242 1941 Unknown [id number] 2..840.1.738331.3.579. 2.1242 1941 Unknown [id number] 2.840.1.828670.3.579. 2.1242 1941 Unknown [id number] 2..840.1.483898.3.579. 2.1242 1941 Unknown [id number] 2.16.840.1.925259.3.579. 2.1242 1941 Unknown [id number] 2..840.1.285414.3.579. 2.1242 1941 Unknown [id number] 2.840.1.678992.3.579. 2.1242 1941 Unknown [id number] 2.16.840.1.437714.3.579. 2.1242 1941 Unknown [id number] 2.16.840.1.470845.3.579. 2.1242 1941 Unknown [id number] 2.16.840.1.260316.3.579. 2.1242 1941 Unknown [id number] 2.16.840.1.397918.3.579. 2.1242 1941 Unknown [id number] 2.16.840.1.933305.3.579. 2.1243 1941 Unknown [id number] 2.16.840.1.032354.3.579. 2.1242 1941 Unknown [id number] 2.16.840.1.349155.3.579. 2.1242 1941 Unknown [id number] 2.16.840.1.995855.3.579. 2.1242 1941 Unknown [id number] 2.16.840.1.997486.3.579. 2.1242 1940 Unknown [id number] 2.16.840.1.306283.3.579. 2.1242 1940 Unknown [id number] 2.16.840.1.713513.3.579. 2.1242 1940 Unknown [id number] 2.16.840.1.731414.3.579. 2.1242 1940 Unknown [id number] 2.16.840.1.561822.3.579. 2.1242 1940 Unknown [id number] 2.16.840.1.520542.3.579. 2.1242 1940 Unknown [id number] 2.16.840.1.148967.3.579. 2.1242 1941 Unknown [id number] 2.16.840.1.572292.3.579. 2.1242 1941 Unknown [id number] 2.16.840.1.489900.3.579. 2.1242 1941 Unknown [id number] 2.16.840.1.123221.3.579. 2.1243 1941 Unknown [id number] 2.16.840.1.923134.3.579. 2.1243 1941 Unknown [id number] 2.16.840.1.721976.3.579. 2.1244 1941 Unknown [id number] 2.840.1.834017.3.579. 2.1244 1941 Unknown [id number] 2..840.1.892068.3.579. 2.1244 1941 Unknown [id number] 2.840.1.733006.3.579. 2.124 1941 Unknown [id number] 2.840.1.013999.3.579. 2.124 1941 Unknown [id number] 2.840.1.641794.3.579. 2.124 1941 Unknown [id number] 2.840.1.362615.3.579. 2.1244 1940 Unknown [id number] 2.0.1.787067.3.579. 2.1244 Medicare xxxxxxxxxx 2.840.1.231805.3.249. 13 Medicare [id number] Unknown [id number] 2.840.1.833928.3.579. 2.462 Unknown [id number] 2.840.1.656912.3.579. 2.462 Unknown [id number] 2.840.1.909569.3.579. 2.462 Unknown [id number] 2.840.1.154055.3.579. 2.462 Unknown [id number] 2.840.1.813253.3.579. 2.462 Unknown [id number] 2.840.1.338569.3.579. 2.462 Unknown [id number] 2.840.1.958637.3.579. 2.462 Unknown [id number] 2.840.1.513412.3.579. 2.462 Unknown [id number] 2.16.840.1.509481.3.579. 2.462 Unknown [id number] 2.16.840.1.377176.3.579. 2.462 Unknown [id number] 2.16.840.1.158401.3.579. 2.462 Unknown [id number] 2.16.840.1.974842.3.579. 2.462 Unknown [id number] 2.16.840.1.571009.3.579. 2.462 Unknown [id number] 2.16.840.1.830971.3.579. 2.462 Unknown [id number] 2.16.840.1.654213.3.579. 2.462 Unknown [id number] 2.16.840.1.169483.3.579. 2.462 Unknown [id number] 2.16840.1.180794.3.579. 2.462 Unknown [id number] 2.16840.1.012931.3.579. 2.462 Unknown [id number] 2.16840.1.065935.3.579. 2.462 Unknown [id number] 2.16.840.1.950241.3.579. 2.462 Unknown [id number] 2.16840.1.047556.3.579. 2.462 Unknown [id number] 2.840.1.417705.3.579. 2.462 Unknown [id number] 2.16840.1.214267.3.579. 2.462 Unknown [id number] 2.16840.1.036896.3.579. 2.462 Unknown [id number] 2.840.1.564611.3.579. 2.462 Social History Date Type Detail Facility Start: 01-02-2018 End: 01-10-2023 Tobacco smoking status WIIS Never smoker [employer] Phone: Start: 03-20-1941 Sex Assigned At Not on file [facility] Start: 06-25-2019 End: 07-30-2025 Alcohol intake Current drinker of alcohol (finding) [facility] Start: 02-12-2020 End: 11-19-2020 History SDOH Physical Activity DPW 2 [facility] Start: 01-17-2022 End: 03-20-2025 Exposure to SARS-CoV-2 (event) Not sure [facility] Start: 05-16-2022 End: 05-26-2022 Exposure to SARS-CoV-2 (event) Unable to assess [facility] Start: 05-22-2020 End: 01-10-2023 Tobacco use and exposure Never used [facility] Start: 11-19-2020 Alcohol Comment occasional [facility] Start: 11-19-2020 Alcohol Comment occasional [facility] Start: 03-09-2022 End: 06-12-2025 Former smoker Former smoker [facility] Tobacco smoking consumption unknown [facility] Start: 11-19-2020 End: 06-12-2025 Humiliation, Afraid, Rape, and Kick questionnaire [HARK] [facility] Start: 09-03-2022 Within the last year , have you been afraid of your partner or ex-partner? Patient refused [facility] Do you feel stress - tense, restless, nervous, or anxious, or unable to sleep at night because your mind is troubled all the time - these days [OSQ] Only a little [facility] (I/We) worried wheth er (my/our) food would run out before (I/we) got money to buy more. DK or Refused [facility] Start: 09-04-2018 Gender identity Identifies as female gender (finding) [facility] Start: 09-04-2018 Sexual orientation Heterosexual (fin ding) [facility] Start: 02-17-2023 Alcohol intake Defer [facility] Work Phone: Start: 04-05-2023 End: 06-19-2025 Alcohol intake Ex-drinker (finding) [facility] Work Phone: Start: 05-05-2023 Alcohol Comment a glass of win e evry couple m onths [facility] Start: 01-18-2025 Alcohol Comment glass of wine once a month [facility] Work Phone: Start: 1940 Sex Assigned At Female [facility] Start: 09-03-2022 Sex Female (finding) [facility] NEGATED: Highlighted row - - [facility] Work Phone: NEGATED: Highlighted rowStart: NINF History of tobacco use Passive smoker [facility] Medical Equipment Procedure Code Equipment Code Equipment Origin al Text Equipment Identifier Dates Barrier 5 X 6in Bx/10 Adhesion Seprafilm - [id number] Start: 07-29-2016 Kit 8ml Matrix Hemostatic W/Thrombin Surgiflo - [id number] Start: 07-29-2016 Barrier 5 X 6in Bx/10 Adhesion Seprafilm - [id number] Start: 07-29-2016 Kit 8ml Matrix Hemostatic W/Thrombin Surgiflo - [id number] Start: 07-29-2016 Barrier 5 X 6in Bx/10 Adhesion Seprafilm - [id number] Start: 07-29-2016 Kit 8ml Matrix Hemostatic W/Thrombin Surgiflo - [id number] Start: 07-29-2016 Barrier 5 X 6in Bx/10 Adhesion Seprafilm - [id number] Start: 07-29-2016 Kit 8ml Matrix Hemostatic W/Thrombin Surgiflo - [id number] Start: 07-29-2016 Barrier 5 X 6in Bx/10 Adhesion Seprafilm - [id number] Start: 07-29-2016 Kit 8ml Matrix Hemostatic W/Thrombin Surgiflo - [id number] Start: 07-29-2016 Cup 4 X 32mm Humeral Reunion Rsa - [id number] ()[id number] ()[id number] LX, 1007532_imp FDA Start: 11-29-2019 Insert 4 X 32mm Humeral X3 Standard Reunion Rsa - [id number] ()[id number])[id number] 2K, 1007533_imp FDA Start: 11-29-2019 Baseplate 28mm Glenoid Reunion Rsa - [id number] ()[id number] ()[id number] 1Y, 1007479[facility] FDA Start: 11-29-2019 Screw 6.5 X 24mm Center Reunion Rsa - [id number])[id number])[id number], 1007480_[facility] FDA Start: 11-29-2019 Screw 4.5 X 24mm Peripheral Reunion Rsa - [id number] (17)[id number])[id number] R4, 1007482_[facility] FDA Start: 11-29-2019 Glenosphere 6 X 32mm Concentric Reunion Rsa - [id number] ()[id number])[id number])[id number] P8, 1007516_[facility] FDA Start: 11-29-2019 Screw 4.5 X 16mm Peripheral Reunion Rsa - [id number] ()[id number])[id number] 1K, 1007517_[facility] FDA Start: 11-29-2019 Screw 4.5 X 16mm Peripheral Reunion Rsa - [id number] ()[id number])[id number] MM, 1007518_[facility] FDA Start: 11-29-2019 Stem 10 X 123mm Humeral Pressfit Camp-Coat Reunion Tsa - [id number] ()[id number])[id number])[id number] WM, 1007523_[facility] FDA Start: 11-29-2019 Putty 5cc Grafto n Dbm - [id number] 1817789_[facility] Start: 05-19-2023 Kit Autoplex W/Vertaplex Hv Cement - S. 1817797_[facility] Start: 05-19-2023 Strip 10 X 2 X 0.6cm 12cc Sgl Mastergraft - S. ()[id number])[id number])[id number](21)., 1817791_[facility] FDA Start: 05-19-2023 Wall Set Screw 1817822[facility] Start: 05-19-2023 Comment on above: Description: Wall S-2 Hemostat 4 X 8in Surgicel - S. ()[id number] (17)[id number])[id number](21)., 1817714_[facility] FDA Start: 05-19-2023 Comment on above: Description: Used HI N for hemostasis S-2 Hemostat 2 X 4in Surgicel Fibrillar - S. ()[id number] (17)[id number])[id number] [id number](21)., 1817719[facility] FDA Start: 05-19-2023 Comment on above: Description: Used HI N for hemostasis S-2 Hemostat 8 X 12. 5cm X 10mm Surgifoam Gelatin Sponge - S. 1817720_imp Start: 05-19-2023 Comment on above: Description: Used HI N for hemostasis S-2 Sealant 10ml Hemostatic Matrix Fast Prep Floseal - S. ()[id number] (17)[id number])[id number](21)., 1817723[facility] FDA Start: 05-19-2023 Comment on above: Description: Used HI N for hemostasis S-2 Tomasz Momo 40mm 1817806_[facility] Start: 05-19-2023 Comment on above: Description: LOAD 19 Fenestrated Scre w 8.5 60mm 1817815[facility] Start: 05-19-2023 Comment on above: Description: Wall s-2 Fenestrated Scre w 7.5 50mm 1817819[facility] Start: 05-19-2023 Comment on above: Description: Wall S-2 Functional Status Date Assessment Result Facility 07-31-2025 Functional status [facility] 07-31-2025 [facility] Work Phone: 07-30-2025 Functional status 138/72 025 3:00 PM EDT Sona Barahona CMA 138/72 [facility] Work Phone: 07-30-2025 Vital signs 86 07/30/2025 3: 00 PM EDT Sona Barahona, RON [facility] Work Phone: 06-12-2025 Patient Health Questionnaire 2 item (PHQ-2) [Reported] [facility] Work Phone: 06-12-2025 Sully - suicide severity rating scale screener - recent [C-SSRS] [facility] Work Phone: Functional observable [facility] NEGATED: Highlighted row Functional performance Functional status health issues are not documented [facility] Work Phone: Mental Status Date Assessment Result Facility 01-21-2023 Cognitive functi ons [id number] [facility] NEGATED: Highlighted row Cognitive function [Interpretation] Cognitive status health issues are not documented [facility] Work Phone: Clinical Notes 02-25-2021 to 08-17-2025 Sancho Woodruff MD - 07/30/2025 3:00 PM EDT Note Date & Type Note Facility 08-17-2025 Note [facility] 08-12-2025 Note [facility] 07-30-2025 History of Present illness Narrative Subjective Patient ID: Alma Mcpherson is a 84 y.o. female who presents for Pre-op Exam and Follow-up (3 mo CS). HPI 84 yo for wound surgery. No history of WA or CHF. Never smoker. Tolerates 1 flight [...] without further testing. documented in this encounter [facility] Work Phone: 07-02-2025 Progress note Note Date/Time July 02, 2025 10:02am [facility] [address] [place] [address] Progress Note - Wound Care 07/02/25 0956 MR#: [id number] Acct: [id number] Name: ALMA MCPHERSON Rep #:[id number] 07 : 1940 84 From: [...] Method Room Air Charges/Coding Procedures Integumentary 111xxx-113xx: 54269 Vivian subq tissue 20 sq cm/< Physical [...] Start: 06/17/25 09:52 Freq: Status: Active Protocol: EKRI Activity Type Activity Date Activity User E-sign Co-sign Detail Recorded Client Recorded Date Recorded By Document 06/17/25 09:52 ML [id number] 06/17/25 09:55 ML Document 07/01/25 09:36 DS [id number] 07/01/25 09:45 DS 06/17/25 07/01/25 09:52 09:36 - Today's Visit Information Type of service Follow-up Visit Follow-up Visit (Physician/REGIONAL PROGRAM MANAGER (Physician/REGIONAL PROGRAM MANAGER ) ) Arrival Mode Ambulatory Ambulatory,Cane Accompanied [...] Date Recorded By Document 06/17/25 09:52 ML [id number] 06/17/25 09:55 ML Document 07/01/25 09:36 DS [id number] 07/01/25 09:45 DS 06/17/25 07/01/25 09:52 09:36 [...] Amt Medium (34-66%) Medium (34-66%) -Granulation Quality [place] -Slough/Fibrin Yes -Necrosis Amt Medium (34-66%) Small [...] Recorded Date Recorded By Document 06/17/25 10:32 [id number] 06/17/25 10:34 Document 07/01/25 10:02 [id number] 07/01/25 10:11 06/17/25 07/01/25 10:32 10:02 Wound [...] Recorded Date Recorded By Document 06/17/25 10:46 KW [id number] 06/17/25 10:46 KW Document 07/01/25 10:11 [id number] 07/01/25 10:12 JF 06/17/25 07/01/25 10:46 10:11 Wound Care Center [...] Cosigner Signature (if applicable): CC: ~ Signed [facility] Work Phone: 1(804) 163-309509-23-2025 Progress note [facility] [address] [place] [address] Progress Note - Wound Care 07/02/25 0956 MR#: [id number] Acct: [id number] Name: ALMA MCPHERSON Rep #:[id number] 07 : 1940 84 From: [...] Method Room Air Charges/Coding Procedures Integumentary 111xxx-113xx: 26620 Vivian subq tissue 20 sq cm/< Physical [...] Start: 06/17/25 09:52 Freq: Status: Active Protocol: WC.JOSET Activity Type Activity Date Activity User E-sign Co-sign Detail Recorded Client Recorded Date Recorded By Document 06/17/25 09:52 ML [id number] 06/17/25 09:55 ML Document 07/01/25 09:36 DS [id number] 07/01/25 09:45 DS 06/17/25 07/01/25 09:52 09:36 - Today's Visit Information Type of service Follow-up Visit Follow-up Visit (Physician/REGIONAL PROGRAM MANAGER (Physician/REGIONAL PROGRAM MANAGER ) ) Arrival Mode Ambulatory Ambulatory,Cane Accompanied [...] Date Recorded By Document 06/17/25 09:52 ML [id number] 06/17/25 09:55 ML Document 07/01/25 09:36 DS [id number] 07/01/25 09:45 DS 06/17/25 07/01/25 09:52 09:36 [...] Amt Medium (34-66%) Medium (34-66%) -Granulation Quality [place] -Slough/Fibrin Yes -Necrosis Amt Medium (34-66%) Small [...] Recorded Date Recorded By Document 06/17/25 10:32 [id number] 06/17/25 10:34 Document 07/01/25 10:02 [id number] 07/01/25 10:11 06/17/25 07/01/25 10:32 10:02 Wound [...] Numeric Is Patient Pain Free? Yes Yes LUCRECIA - Nurse 3 - General Ulcer D/C NN Start: 06/17/25 09:52 Freq: Status: Active Protocol: Activity Type Activity Date Activity User E-sign Co-sign Detail Recorded Client Recorded Date Recorded By Document 06/17/25 10:46 KW [id number] 06/17/25 10:46 Document 07/01/25 10:11 [id number] 07/01/25 10:12 06/17/25 07/01/25 10:46 10:11 Wound [...] not want to get one. 07/02/25 1002 Cosigner Signature (if applicable): CC: ~ Signed [facility]09-15-2025 Telephone encounter Note* Telephone Encounter - Shirley Perez MA - 06/24/2025 2:43 PM EDT Received refill request electronically via [employer]. Pt last seen 06/19/2025, F/u in 6 months, patient has office visit 12/18/2025. Refilled Propafenone 150mg Twice a Day #180 with 3 refills. Rx sent to [facility]. [id number] Miscellaneous Notes* Telephone Encounter - Shirley Perez MA - 06/24/2025 2:43 PM EDT Received refill request electronically via [employer]. Pt last seen 06/19/2025, F/u in 6 months, patient has office visit 12/18/2025. Refilled Propafenone 150mg Twice a Day #180 with 3 refills. Rx sent to [facility]. 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 No aspirin given chronic Eliquis use and risk-benefit ratio in an 84-year-old. Continue statin. [id number] Evaluation + Plan note* Assessment & Plan [...] hours prior. No need for a bridge. 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 documented in this [id number] Evaluation + Plan note* Assessment & Plan Note - Wang Borges MD - 06/19/2025 11:54 AM EDT Associated Problem(s): HTN (hypertension) Home blood pressure is good on her current regimen that includes Cardizem CD 240 mg once daily [id number] Evaluation + Plan note* Assessment & Plan [...] under 60 kg to 2.5 twice daily. [id number] NoteInterventional Cardiology Telephone Visit Follow-up [facility] 06/19/2025 Wang Borges MD [address] [address] Patient: Alma Mcpherson Date of : 1940 (84 y.o.) Referring Provider: No ref. provider found PCP: Sancho Woodruff MD Patient Location: Patient's Home Patient phone : [phone] This visit has been fully reviewed with [...] there are inherent diagnostic limitations compared to tufe-xd-ctdv evaluations. They elected to proceed with the [...] for a bridge. 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 female who is [...] She is currently seeing Dr. Cool in [place]. They are discussing potential surgical intervention for [...] multivitamin with minerals tabl (more content not included)...[facility]09-10-2025 History of Present illness Narrative* Wang Borges MD - 06/19/2025 10:12 AM EDT Interventional Cardiology Telephone Visit Follow-up [facility] 06/19/2025 Wang Borges MD [address] [facility] [address] [place] [address] Patient: Alma Mcpherson Date of : 1940 (84 y.o.) Referring Provider: No ref. provider found PCP: Sancho Woodruff MD Patient Location: Patient's Home Patient phone : [phone] This visit has been fully reviewed with [...] there are inherent diagnostic limitations compared to gjdt-hq-udrk evaluations. They elected to proceed with the [...] for a bridge. 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 female who is [...] She is currently seeing Dr. Cool in [place]. They are discussing potential surgical intervention for [...] daily PM . naloxone (NARCAN) 4 mg/actuation [place] Administer 1 spray into one nostril for [...] on file prior to visit. Provider location: [facility] [address] [place] [phone] Patient location: [address] [place] [id number] I have spent 17 minutes with the patient reviewing the HPI and Plan of Care. Lab Results Component Value Date TRIG 76 08/09/2016 * Shirley Perez MA - 06/19/2025 9:50 AM EDT Reviewed medication over the phone with patient . Patient having surgery on back due to open wound on healing, will need to off Kyle at the time, Dr. Villegas. documented in this [id number] Progress note Author Sylvia Cool [facility] Note Date/Time June 18, 2025 11:06am [facility] [address] [place] [address] Progress Note - Wound Care 06/18/25 0947 MR#: [id number] Acct: [id number] Name: ALMA MCPHERSON Rep #:[id number] 03 : 1940 84 From: [...] Charges/Coding Visit Charges Office Visits / Consults: 48438 OV L2 Est 10min Procedures Integumentary 111xxx-113xx: 76945 Vivian subq tissue 20 sq cm/< Physical [...] Date Recorded By Document 06/17/25 09:52 ML [id number] 06/17/25 09:55 ML 06/17/25 09:52 WC - Today's Visit Information Type of service Follow-up Visit (Physician/REGIONAL PROGRAM MANAGER ) Arrival Mode Ambulatory Patient Identification Verified [...] Date Recorded By Document 06/17/25 09:52 ML [id number] 06/17/25 09:55 ML 06/17/25 09:52 Wound Center [...] Recorded Date Recorded By Document 06/17/25 10:32 [id number] 06/17/25 10:34 06/17/25 10:32 Wound Center Nurse 2 -Time [...] 0-10 Numeric Is Patient Pain Free? Yes LUCRECIA - Nurse 3 - General Ulcer D/C NN Start: 06/17/25 09:52 Freq: Status: Active Protocol: Activity Type Activity Date Activity User E-sign Co-sign Detail Recorded Client Recorded Date Recorded By Document 06/17/25 10:46 KW [id number] 06/17/25 10:46 KW 06/17/25 10:46 Wound Care Center Nurse 3 [...] Cosigner Signature (if applicable): CC: ~ Signed [facility] Work Phone: 1(672) 287-220009-09-2025 Progress note [facility] [address] [place] [address] Progress Note - Wound Care 06/18/25 0947 MR#: [id number] Acct: [id number] Name: ALMA MCPHERSON Rep #:[id number] 03 : 1940 84 From: [...] Charges/Coding Visit Charges Office Visits / Consults: 28762 OV L2 Est 10min Procedures Integumentary 111xxx-113xx: 34244 Vivian subq tissue 20 sq cm/< Physical [...] Date Recorded By Document 06/17/25 09:52 ML [id number] 06/17/25 09:55 ML 06/17/25 09:52 - Today's Visit Information Type of service Follow-up Visit (Physician/REGIONAL PROGRAM MANAGER ) Arrival Mode Ambulatory Patient Identification Verified [...] Date Recorded By Document 06/17/25 09:52 ML [id number] 06/17/25 09:55 ML 06/17/25 09:52 Wound Center [...] Recorded Date Recorded By Document 06/17/25 10:32 JF [id number] 06/17/25 10:34 DOROTHY 06/17/25 10:32 Wound Center [...] Recorded Date Recorded By Document 06/17/25 10:46 KW [id number] 06/17/25 10:46 DIVYA 06/17/25 10:46 Wound Care [...] Cosigner Signature (if applicable): CC: ~ Signed [facility]09-03-2025 History of Present illness Narrative* Tony Casiano, DO - 06/12/2025 12:15 PM EDT Subjective Patient ID: Alma Mcpherson is a 84 y.o. female who presents [...] RN 06/12/25 12:18 PM documented in this [facility] Work Phone: 1(701) 147-292908-18-2025 Progress note Author Sylvia Cool [facility] Note Date/Time May 27, 2025 2: 23pm [facility] [address] [place] [address] Progress Note - Wound Care 05/27/25 1419 MR#: [id number] Acct: [id number] Name: ALMA MCPHERSON Rep #:[id number] 06 : 1940 84 From: [...] Method Room Air Charges/Coding Procedures Integumentary 111xxx-113xx: 77980 Vivian subq tissue 20 sq cm/< Physical [...] Start: 05/20/25 13:41 Freq: Status: Active Protocol: Wein der WocheAVI Activity Type Activity Date Activity User E-sign Co-sign Detail Recorded Client Recorded Date Recorded By Document 05/20/25 13:41 KW [id number] 05/20/25 13:45 KW Document 05/27/25 13:33 KW [id number] 05/27/25 13:42 KW 05/20/25 05/27/25 13:41 13:33 - Today's Visit Information Type of service Follow-up Visit (Physician/REGIONAL PROGRAM MANAGER ) Arrival Mode Ambulatory,Cane Patient Identification Verified [...] Patient Pain Free? Yes Yes - Nurse 1 - General Ulcer Measurement Start: 05/20/25 13:41 Freq: Status: Active Protocol: Activity Type Activity Date Activity User E-sign Co-sign Detail Recorded Client Recorded Date Recorded By Document 05/20/25 13:41 KW [id number] 05/20/25 13:45 KW Document 05/27/25 13:33 KW [id number] 05/27/25 13:42 05/20/25 05/27/25 13:41 13:33 Wound Center Nurse [...] Amt Large (67-100%) Large (67-100%) -Granulation Quality [place],Red [place],Red -Necrosis Amt Small (1-33%) -Necrotic Tissue Type [...] Date Recorded By Document 05/20/25 14:11 JF [id number] 05/20/25 14:14 Document 05/27/25 13:56 [id number] 05/27/25 13:57 05/20/25 05/27/25 14:11 13:56 Wound [...] Recorded Date Recorded By Document 05/20/25 14:14 [id number] 05/20/25 14:14 Document 05/27/25 14:02 [id number] 05/27/25 14:03 05/20/25 05/27/25 14:14 14:02 Wound Care Center [...] Ag daily. Patient happy with plan. 05/27/25 1424 <Electronically signed by Sylvia Cool MD> Cosigner Signature (if applicable): CC: ~ Signed [facility] Work Phone: 1(349) 419-581908-18-2025 Progress note [facility] [address] [place] [address] Progress Note - Wound Care 05/27/25 1419 MR#: [id number] Acct: [id number] Name: ALMA MCPHERSON Rep #:[id number] 06 : 1940 84 From: Sylvia Cool MD PCP: Dr. Sancho Woodruff MD Status:[facility] Location: History of Present Illness Date of [...] Method Room Air Charges/Coding Procedures Integumentary 111xxx-113xx: 91949 Vivian subq tissue 20 sq cm/< Physical [...] Start: 05/20/25 13:41 Freq: Status: Active Protocol: LUCRECIA.MARCIAL Activity Type Activity Date Activity User E-sign Co-sign Detail Recorded Client Recorded Date Recorded By Document 05/20/25 13:41 [id number] 05/20/25 13:45 KW Document 05/27/25 13:33 [id number] 05/27/25 13:42 KW 05/20/25 05/27/25 13:41 13:33 - Today's Visit Information Type of service Follow-up Visit (Physician/REGIONAL PROGRAM MANAGER ) Arrival Mode Ambulatory,Cane Patient Identification Verified [...] Numeric Is Patient Pain Free? Yes Yes LUCRECIA - Nurse 1 - General Ulcer Measurement Start: 05/20/25 13:41 Freq: Status: Active Protocol: Activity Type Activity Date Activity User E-sign Co-sign Detail Recorded Client Recorded Date Recorded By Document 05/20/25 13:41 KW [id number] 05/20/25 13:45 KW Document 05/27/25 13:33 KW [id number] 05/27/25 13:42 KW 05/20/25 05/27/25 13:41 13:33 [...] Amt Large (67-100%) Large (67-100%) -Granulation Quality [place],Red [place],Red -Necrosis Amt Small (1-33%) -Necrotic Tissue Type [...] Recorded Date Recorded By Document 05/20/25 14:11 [id number] 05/20/25 14:14 Document 05/27/25 13:56 [id number] 05/27/25 13:57 05/20/25 05/27/25 14:11 13:56 Wound [...] Recorded Date Recorded By Document 05/20/25 14:14 [id number] 05/20/25 14:14 Document 05/27/25 14:02 ML [id number] 05/27/25 14:03 ML 05/20/25 05/27/25 14:14 14:02 [...] Cosigner Signature (if applicable): CC: ~ Signed [facility]08-11-2025 History and physical note Author Vineet Singleton [facility] Note Date/Time May 20, 2025 4: 49pm [facility] [address] [place] [address] H&P Exam - Wound Care 05/20/25 1620 MR#: [id number] Acct: [id number] Name: ALMA MCPHERSON Rep #:[id number] 13 : 1940 84 From: Vineet Becker PCP: Dr. Sancho Woodruff MD Status:RE G [...] not a smoker. She is not diabetic. [facility] Medical History Cancer Arthritis Anemia Cirrhosis High [...] Date Recorded By Document 05/20/25 13:41 KW [id number] 05/20/25 13:45 KW 05/20/25 13:41 Vital Signs [...] Date Recorded By Document 05/20/25 13:41 DIVYA [id number] 05/20/25 13:45 DIVYA 05/20/25 13:41 Wound Center Nurse 1 #1 [...] Attached -Granulation Amt Large (67-100%) -Granulation Quality [place],Red -Texture (Danelle-wound Skin Appearance) Assessed,Rash -Moisture (Danelle-wound [...] Date Recorded By Document 05/20/25 14:11 DOROTHY [id number] 05/20/25 14:14 DOROTHY 05/20/25 14:11 Wound Center Nurse 2 -Time [...] Recorded Date Recorded By Document 05/20/25 14:14 [id number] 05/20/25 14:14 05/20/25 14:14 Wound Care Center [...] Multi Select Codes Visit Charges Office Visit/Consults: 27670 OV L4 New 45 min Integumentary Integumentary CPT Codes: 71789 Vivian subq tissue 20 sq cm/< Assessment/Plan [...] been going to an outpatient clinic at [facility] in [place], [place], for her ulcer dressing changes. We [...] Dr. Cool. Total time: 45 minutes 05/20/25 5755 <Electronically signed by Vineet Singleton MD> Cosigner Signature (if applicable): CC: ~ Signed [facility] Work Phone: 1(178) 186-181408-11-2025 History and physical note [facility] [address] [place] [address] H&P Exam - Wound Care 05/20/25 1620 MR#: [id number] Acct: [id number] Name: ALMA MCPHERSON Rep #:[id number] 13 : 1940 84 From: Vineet Becker PCP: Dr. Sancho Woodruff MD Status:RE G [...] is not asmoker. She is not diabetic. [facility] Medical History Cancer Arthritis Anemia Cirrhosis High [...] Date Recorded By Document 05/20/25 13:41 DIVYA [id number] 05/20/25 13:45 KW 05/20/25 13:41 Vital Signs [...] Date Recorded By Document 05/20/25 13:41 DIVYA [id number] 05/20/25 13:45 DIVYA 05/20/25 13:41 Wound Center Nurse 1 #1 [...] Attached -Granulation Amt Large (67-100%) -Granulation Quality [place],Red -Texture (Danelle-wound Skin Appearance) Assessed,Rash -Moisture (Danelle-wound [...] Date Recorded By Document 05/20/25 14:11 DOROTHY [id number] 05/20/25 14:14 DOROTHY 05/20/25 14:11 Wound Center Nurse 2 -Time [...] Recorded Date Recorded By Document 05/20/25 14:14 [id number] 05/20/25 14:14 05/20/25 14:14 Wound Care Center [...] Multi Select Codes Visit Charges Office Visit/Consults: 54889 OV L4 New 45 min Integumentary Integumentary CPT Codes: 21967 Vivian subq tissue 20 sq cm/< Assessment/Plan [...] been going to an outpatient clinic at [facility] in [place], [place], for her ulcer dressing changes. We [...] Cosigner Signature (if applicable): CC: ~ Signed [facility]07-22-2025 Progress note Author Sylvia Cool [facility] Note Date/Time April 30, 2025 11:5 8am [facility] [address] [place] [address] Progress Note - Wound Care 04/30/25 1155 MR#: [id number] Acct: [id number] Name: ALMA MCPHERSON Rep #:[id number] 18 : 1940 84 From: Sylvia Cool MD PCP: Dr. Sancho Woodruff MD [facility] Location: History of Present Illness Date of [...] Index (BMI) 27.8 Charges/Coding Procedures Integumentary 111xxx-113xx: 93142 Vivian subq tissue 20 sq cm/< Physical [...] Start: 04/22/25 14:59 Freq: Status: Active Protocol: [employer] Activity Type Activity Date Activity User E-sign Co-sign Detail Recorded Client Recorded Date Recorded By Document 04/22/25 15:01 DL [id number] 04/22/25 15:13 DL Document 04/29/25 14:17 ML [id number] 04/29/25 14:23 ML 04/22/25 04/29/25 15:01 14:17 WC - Today's Visit Information Type of service Follow-up Visit Follow-up Visit (Physician/REGIONAL PROGRAM MANAGER (Physician/REGIONAL PROGRAM MANAGER ) ) Arrival Mode Ambulatory Ambulatory Transfer [...] Date Recorded By Document 04/22/25 15:01 DL [id number] 04/22/25 15:13 DL Document 04/29/25 14:17 ML [id number] 04/29/25 14:23 ML 04/22/25 04/29/25 15:01 14:17 [...] Date Recorded By Document 04/22/25 15:39 JF [id number] 04/22/25 15:49 Document 04/29/25 14:42 DS [id number] 04/29/25 14:43 DS 07/14/25 07/21/25 15:39 14:42 Wound Center Nurse 2 #1 [...] Recorded Date Recorded By Document 04/22/25 16:14 [id number] 04/22/25 16:15 Document 04/29/25 15:04 [id number] 04/29/25 15:05 04/22/25 04/29/25 16:14 15:04 Wound Care Center [...] Cosigner Signature (if applicable): CC: ~ Signed [facility] Work Phone: 1(837) 664-696407-22-2025 Progress note [facility] [address] [place] [address] Progress Note - Wound Care 04/30/25 1155 MR#: [id number] Acct: [id number] Name: ALMA MCPHERSON Rep #:[id number] 18 : 1940 84 From: Sylvia Cool MD PCP: Dr. Sancho Woodruff MD Status:[facility] Location: History of Present Illness Date of [...] Index (BMI) 27.8 Charges/Coding Procedures Integumentary 111xxx-113xx: 13472 Vivian subq tissue 20 sq cm/< Physical [...] Date Recorded By Document 04/22/25 15:01 DL [id number] 04/22/25 15:13 DL Document 04/29/25 14:17 ML [id number] 04/29/25 14:23 ML 04/22/25 04/29/25 15:01 14:17 - Today's Visit Information Type of service Follow-up Visit Follow-up Visit (Physician/REGIONAL PROGRAM MANAGER (Physician/REGIONAL PROGRAM MANAGER ) ) Arrival Mode Ambulatory Ambulatory Transfer [...] Date Recorded By Document 04/22/25 15:01 DL [id number] 04/22/25 15:13 DL Document 04/29/25 14:17 ML [id number] 04/29/25 14:23 ML 04/22/25 04/29/25 15:01 14:17 [...] Date Recorded By Document 04/22/25 15:39 JF [id number] 04/22/25 15:49 JF Document 04/29/25 14:42 DS [id number] 04/29/25 14:43 DS 04/22/25 04/29/25 15:39 14:42 [...] Recorded Date Recorded By Document 04/22/25 16:14 [id number] 04/22/25 16:15 Document 04/29/25 15:04 [id number] 04/29/25 15:05 KW 04/22/25 04/29/25 16:14 15:04 [...] Cosigner Signature (if applicable): CC: ~ Signed [facility]07-21-2025 Evaluation note* Diagnosis Onset Date Resolution Status Admit Date Atrial fibrillation acute April 29, 2025 3:00pm MATTHEW (nonalcoholic steatohepatitis) acute April 29, 2025 3:00pm Sacral decubitus ulcer, stage III ac chilkoot April 29, 2025 3:00pm [facility] Work Phone: 1(695) 972-443207-21-2025 Evaluation note* Diagnosis Onset Date Resolution Status Admit Date Atrial fibrillation acute April 29, 2025 3:00pm MATTHEW (nonalcoholic steatohepatitis) acute April 29, 2025 3:00pm Sacral decubitus ulcer, stage III ac chilkoot April 29, 2025 3:00pm Arthritis acute May [...] 2:00pm Sacral decubitus ulcer, stage III ac chilkoot May 27, 2025 2:00pm [facility] Work Phone: 1(146) 239-696107-21-2025 Evaluation note* Diagnosis Onset Date Resolution Status Admit Date Atrial fibrillation acute April 29, 2025 3:00pm MATTHEW (nonalcoholic steatohepatitis) acute April 29, 2025 3:00pm Sacral decubitus ulcer, stage III ac chilkoot April 29, 2025 3:00pm Arthritis acute May [...] 2:00pm Sacral decubitus ulcer, stage III ac chilkoot May 27, 2025 2:00pm Sacral decubitus ulcer, stage III ac chilkoot July 01, 2025 9:45am [facility] Work Phone: 1(475) 977-864607-21-2025 History of Present illness Narrative* Dariela Garza MD - 04/29/2025 9:30 AM EDT Subjective Patient ID: Alma Mcpherson is a 84 y.o. female who presents [...] radicular and I suggested seeing Dr. Tony Casiano for evaluation and possible injection to see if this does not help her discomfort. She agrees to this. We will see her back after plastic surgery evaluation and painevaluation is needed. She seems reassured. Dariela Garza MD 04/29/25 4:35 PM documented in this [facility] Work Phone: 1(190) 776-874707-16-2025 History and physical note Author Sylvia Cool [facility] Note Date/Time April 24, 2025 3:27 pm [facility] [address] [place] [address] H&P Exam - Wound Care 04/23/25 0729 MR#: [id number] Acct: [id number] Name: ALMA MCPHERSON Rep #:[id number] 03 : 1940 84 From: Sylvia Cool MD PCP: Dr. Sancho Woodruff MD Status:RE G RCR Location: ADDENDUM by Dr. Sylvia Cool [...] content of the generatednote prior to signature. [facility] Medical History Cancer Arthritis Anemia Cirrhosis High [...] Date Recorded By Document 04/22/25 15:01 DL [id number] 04/22/25 15:13 DL 04/22/25 15:01 - Today's Visit Information Type of service Follow-up Visit (Physician/REGIONAL PROGRAM MANAGER ) Arrival Mode Ambulatory Transfer Assistance None [...] Date Recorded By Document 04/22/25 15:01 DL [id number] 04/22/25 15:13 DL 04/22/25 15:01 Wound Center [...] Date Recorded By Document 04/22/25 15:39 DOROTHY [id number] 04/22/25 15:49 DOROTHY 04/22/25 15:39 Wound Center Nurse 2 -Time [...] Date Recorded By Document 04/22/25 16:14 DL [id number] 04/22/25 16:15 DL 04/22/25 16:14 Wound Care [...] Multi Select Codes Visit Charges Office Visit/Consults: 47114 OV L4 New 45 min Integumentary Integumentary CPT Codes: 19163 Vivian musc/fascia 20 sq cm/< Assessment/Plan Assessment/Plan [...] Cosigner Signature (if applicable): CC: ~ Signed [facility] Work Phone: 1(164) 905-677807-16-2025 History and physical note [facility] [address] [place] [address] H&P Exam - Wound Care 04/23/25 0729 MR#: [id number] Acct: [id number] Name: ALMA MCPHERSON Rep #:[id number] 03 : 1940 84 From: Sylvia Cool MD PCP: Dr. Sancho Woodruff MD Status:RE G RCR Location: ADDENDUM by Dr. Sylvia Cool [...] content of the generatednote prior to signature. [facility] Medical History Cancer Arthritis Anemia Cirrhosis High [...] Date Recorded By Document 04/22/25 15:01 DL [id number] 04/22/25 15:13 DL 04/22/25 15:01 WC - Today's Visit Information Type of service Follow-up Visit (Physician/REGIONAL PROGRAM MANAGER ) Arrival Mode Ambulatory Transfer Assistance None [...] Date Recorded By Document 04/22/25 15:01 DL [id number] 04/22/25 15:13 DL 04/22/25 15:01 Wound Center [...] Date Recorded By Document 04/22/25 15:39 DOROTHY [id number] 04/22/25 15:49 JF 04/22/25 15:39 Wound Center Nurse 2 -Time [...] Date Recorded By Document 04/22/25 16:14 DL [id number] 04/22/25 16:15 DL 04/22/25 16:14 Wound Care [...] Multi Select Codes Visit Charges Office Visit/Consults: 34011 OV L4 New 45 min Integumentary Integumentary CPT Codes: 69319 Vivian musc/fascia 20 sq cm/< Assessment/Plan Assessment/Plan [...] diet. - Rest and remain hydrated. 04/23/25 0772 Cosigner Signature (if applicable): CC: ~ Signed [facility]07-11-2025 History of Present illness Narrative* Dariela Garza MD - 04/19/2025 10:00 AM EDT Subjective Patient ID: Alma Mcpherson is a 84 y.o. female who presents for wound follow-up. She has been going twice weekly to [facility]. The wound seems to have stalled. She is scheduled to see plastic surgery on Tuesday in [place] for possible flap closure. She had a [...] MD 04/19/25 10:14 AM documented in this [facility] Work Phone: 1(113) 787-486406-27-2025 History of Present illness Narrative* Dariela Garza MD - 04/05/2025 10:30 AM EDT Subjective Patient ID: Alma Mcpherson is a 84 y.o. female who presents for Wound Check (FU 1 mos wound check of sacral area. Per patient slight tenderness if sitting on it for long periods, wound his healing and getting smaller. Getting dressing changes at the [facility] with [facility] and [facility] on Tuesday, Tuesday [...] will [place] to [place]. Will see her back for wound check in Dariela Garza MD 04/08/25 7:34 PM documented in this [facility] Work Phone: 1(675) 653-261306-25-2025 History of Present illness Narrative* Sancho Woodruff MD - 04/03/2025 11:00 AM EDT Subjective Patient ID: Alma Mcpherson is a 84 y.o. female who presents [...] ulcer stage (Multi) L98.499 documented in this [facility] Work Phone: 1(646) 260-123704-25-2025 History of Present illness Narrative* Dariela Garza MD - 02/01/2025 10:00 AM EDT Subjective Patient ID: Alma Mcpherson is a 84 y.o. female who presents for Wound Check (FU 2 weeks cleft open wound with pelvis x-ray on 01-21-25. Patient continuing with dressing changes at [facility] on Tue, Tue and Fridays. Patient having burning, itching, discomfort around the wound are but states woundfeels better than what it had.). Patient returns for wound check. She has been having dressing changes at [facility] but on reading the note they were [...] MD 02/01/25 10:23 AM [facility] Phone: 1(518) 621-698704-11-2025 History of Present illness Narrative* Dariela Garza MD - 01/18/2025 10:00 AM EDT General Surgery Consultation Patient: Alma Mcpherson : 1940 Date of Consultation: 01/20/25 Primary Care Provider: Sancho Woodruff MD Referring Provider: Sancho Woodruff MD Chief Complaint: Wound of gluteal cleft History of Present Illness: Alma Mcpherson is a 84 y.o. old female seen [...] respond, may repeat in 2-3 minutes. . 8/2/24 Yes propafenone (Rythmol) 150 mg tablet Take [...] 6 in 24 hours 11/30/24 05/29/25 Yes Alxe Mohan MD foam bandage (Mepilex Border) 3 [...] Financial Resource Strain: Unknown (11/19/2020) Received from [facility] Overall Financial Resource Strain (CARDIA) Difficulty of Paying Living Expenses: Patient declined Food Insecurity: Unknown (11/19/2020) Received from [facility] Hunger Vital Sign Worried About Running Out of Food in the Last Year: Patient declined Ran Out of Food in the Last Year: Patient declined Transportation Needs: Unknown (11/19/2020) Received from [facility] PRAPARE - Transportation Lack of Transportation (Medical): Patient declined Lack of Transportation (Non-Medical): Patient declined Physical Activity: Insufficiently Active (11/19/2020) Received from [facility] Exercise Vital Sign Days of Exercise per Week: 2 days Minutes of Exercise per Session: 20 min Stress: No Stress Concern Present (11/19/2020) Received from [facility] [employer]ift of Occupational Health - Occupational Stress Questionnaire Feeling of Stress : Only a little Intimate Partner Violence: Unknown (11/19/2020) Received from [facility] Humiliation, Afraid, Rape, and Kick questionnaire [...] no edema Skin: warm and dry Inner cleft she has a almost 2 cm x 1 cm area with a clean base but the skin is gone. There is no surrounding cellulitis. Assessment and Plan: Alma Mcpherson is a 84 y.o. old female with open wound of lance cleft. It is difficult to tell what [...] it they will go and learn otherwise AC will do it. We will check pelvis [...] Dariela Garza MD 01/20/2025 documented [facility] Work Phone: 1(737) 437-195003-25-2025 Evaluation + Plan note* Assessment & Plan Note - Sancho Woodruff MD - 01/01/2025 11:00 AM EDTAssociated Problem(s): Lumbar stenosis with neurogenic claudication Orders: DRUG SCREEN,URINE; Future Follow Up In Primary Care; Future [facility] Work Phone: 1(272) [phone] Evaluation + Plan note* Assessment & Plan Note - Sancho Woodruff MD - 01/01/2025 11:00 AM EDTAssociated Problem(s): Exudative age-related macular degeneration, left eye, with active choroidal n eovascularization [facility] Work Phone: [phone]) [phone] Evaluation + Plan note* Assessment & Plan Note - Sancho Woodruff MD - 01/01/2025 11:00 AM EDTAssociated Problem(s): Vitreous hemorrhage, left eye (Multi) [facility] Work Phone: 1([phone]) 277-135803-25-2025 Evaluation + Plan note* Assessment & Plan Note - aSncho Woodruff MD - 01/01/2025 11:00 AM EDTAssociated Problem(s): DDD (degenerative disc disease), lumbosacral [facility] Work Phone: 1([phone]) 243-250403-25-2025 History of Present illness Narrative* Sancho Woodruff MD - 01/01/2025 11:00 AM EDT Subjective Reason for Visit: Alma Mcpherson is an 84 y.o. female here for [...] Medicine) Sancho Woodruff [facility] Attributed Provider Review of Systems Denies [...] In Primary Care; Future documented in this [facility] Work Phone: [phone]) 779-191603-25-2025 Miscellaneous Notes* Assessment & Plan Note - [...] (degenerative disc disease), lumbosacral documented in this [facility] Work Phone: 1([phone]) 114-548103-05-2025 Evaluation + Plan note* Assessment & Plan Note - Wang Borges MD - 12/12/2024 12:10 PM ESTAssociated Problem(s): Dyslipidemia LDL was excellent at 58 in July 2023, continue rosuvastatin 5 mg daily [id number] Miscellaneous Notes* Assessment & Plan Note - Wang Borges MD - 12/12/2024 12:10 PM ESTAssociated Problem(s): Dyslipidemia LDL was excellent at 58 in July 2023, continue rosuvastatin 5 mg daily * Assessment & Plan Note - Wang Borges MD - 12/12/2024 12:09 PM EST Associated Problem(s): 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 Woodruff. 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 No aspirin given chronic Eliquis use and risk-benefit ratio in an 83-year-old. Continue statin. [id number] Evaluation + Plan note* Assessment & Plan Note - Wang Borges MD - 12/12/2024 12:09 PM ESTAssociated Problem(s): HTN (hypertension) Home blood pressures in a good range on Cardizem CD 240 mg once daily [id number] Evaluation + Plan note* Assessment & Plan [...] needs to discuss this with Dr. Woodruff. 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 female who comes [...] And Without Contrast Final Result by Andrew Xie DO (02/12/20202036) CCTA Heart (Clinical Application Consultant read) Final Result by Chante Oliva MD [...] Size: Adult) Pulse 9 (more content not included)...[facility] [id number] History of Present illness Narrative* Wang Borges MD - 12/12/2024 12:06 PM EST Interventional Cardiology Clinic Follow-up Heart & [facility]ascular [facility] 12/12/2024 Wang Borges MD [address] [facility] [address] [facility] [address] Patient: Alma Mcpherson Date of : 1940 (83 y.o.) PCP: [...] mg once daily 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 female who comes [...] And Without Contrast Final Result by Andrew Xie DO (02/12/20202036) CCTA Heart (Clinical Application Consultant read) Final Result by Chante Oliva MD [...] maximum 14 days allowed.) documented in this [id number] NoteCERVICAL INTERLAMINAR EPIDURAL STEROID INJECTION PROCEDURE: 1) C7-T1 interlaminar epidural steroid injection 2) Fluoroscopic needle guidance REASON FOR PROCEDURE: Cervical Radiculopathy PHYSICIAN: Jaylan Moscoso D.O. MEDICATIONS INJECTED: 1 mL Dexamethasone PF [...] after the procedure. The patient (or responsible alliance party) was given post-procedure and discharge instructions to follow at home. The patient was discharged in stable condition. Notes: none Follow-up in office AUTHENTICATED BY JAYLAN MOSCOSO, ON 11/20/2024 13:49:[address] [place] [address] 11-20-2024 NotePre-Procedural History and Physical Update Patient Name: Alma Mcpherson Admit Date: [id number] MR #: [id number] : 1940 Physicians: Sancho Woodruff MD Interval History: Alma Mcpherson presents today for cervical epidural steroid injection. [...] ADHESION ; Surgeon: Smooth Sarabia MD; [place] [facility] [place]; Service: FOOT FUSION Left HYSTERECTOMY [...] 1 tablet, Daily naloxone (NARCAN) 4 mg/actuation [place] Administer 1 spray into one nostril for [...] care Neuro-Musculoskeletal: No gisell (more content not included)...[facility] 10-30-2024 Instructions* Patient Instructions* Jose A Ornelas, [facility] - 10/30/2024 11:47 AM EST If chronic [...] managing physician is given. documented in this [id number] [facility] Inter[facility] Management Office Note Patient Name: Alma Mcpherson Referring Physician: No ref. provider found Date [...] days, how often have (more content not included)...[facility] [id number] History of Present illness Narrative* Jose A Ornelas, ELIJAH - 10/30/2024 11:15 AM EST [facility] Interventional Pain Management Office Note Patient Name: Alma Tl [place] Referring Physician: No ref. provider found Date [...] ADHESION ; Surgeon: Smooth Sarabia MD; [place] [facility] [place]; Service: FOOT FUSION Left HYSTERECTOMY [...] 1 tablet, Daily naloxone (NARCAN) 4 mg/actuation [place] Administer 1 spray into one nostril for [...] a glass of wine evry couple m [facility] Drug use: No Social Drivers of Health [...] min Stress: No Stress Concern Present (11/19/2020) [employer] Occupational Health - Occupational Stress Questionnaire [...] XR lumbar spine 07/11/24: FINDINGS: Anatomy: 5 voj-kyf-wleuvfm lumbar segments. Increased lumbar levoconvex curvature measuring [...] Jose A Ornelas CNP Interventional Pain Management [facility] Michaela This note was generated using VMTurbo voice recognition software in an effort to [...] Yes but from medication documented in this [id number] Telephone encounter Note* Telephone Encounter - Shirley Perez MA - 10/18/2024 2:53 PM EST Received refill request electronically via [employer]. Pt last seen 08/04/2023, F/u in 9 months, patient has office visit 12/12/24. Refilled Rosuvastatin 5mg Daily #90 with 3 refills. Rx sent to [facility]. [id number] Miscellaneous Notes* Telephone Encounter - Shirley Perez MA - 10/18/2024 2:53 PM EST Received refill request electronically via inMiroi. Pt last seen 08/04/2023, F/u in 9 months, patient has office visit 12/12/24. Refilled Rosuvastatin 5mg Daily #90 with 3 refills. Rx sent to [facility]. documented in this [id number] Note10/08/24 Alma Mcpherson 1940 Chief Complaint Patient presents with - Injections HISTORY of Present Illness: Alma Mcpherson is a 83 y.o. year old female that presents today with Injections . Alma Mcpherson has had injections in the past. Last [...] I have reviewed this information with Alma Mcpherson at the time of their visit. They [...] CNP Authorized by: Christine Voss CNP CPT 27592 - Large Joint Arthrocentesis: Consent given by: [...] CNP Authorized by: Christine Voss CNP CPT 43417 - Large Joint Arthrocentesis: Consent given by: [...] CNP AUTHENTICATED BY CHRISTINE VOSS, ON 10/08/2024 15:05:[address] [place], [place] [id number] History of Present illness Narrative* Christine Voss CNP - 10/08/2024 3:02 PM ESTAssociated Order(s): LG Jt Injection/Arthrocentesis: L glenohumeral; LG Jt Injection/Arthrocentesis: L greater trochanteric bursa Post-Procedure Diagnose(s): Trochanteric bursitis of left hip; Primary osteoarthritis of left shoulder 10/08/24 Alma Mcpherson 1940 Chief Complaint Patient presents with Injections HISTORY of Present Illness: Alma Mcpherson is a 83 y.o. year old female that presents today with Injections . Alma Mcpherson has had injections in the past. Last [...] and I have reviewed thisinformation with Alma Mcpherson at the time of their visit. They [...] CNP Authorized by: Christine Voss CNP CPT 39330 - Large Joint Arthrocentesis: Consent given by: [...] CNP Authorized by: Christine Voss CNP CPT 41781 - Large Joint Arthrocentesis: Consent given by: [...] complications Christine Voss CNP documented in this [id number] History of Present illness Narrative* Sancho Woodruff MD - 08/13/2024 2:20 PM EST Subjective Patient ID: Alma Mcpherson is a 83 y.o. female who presents [...] Unexplained weight loss R63.4 documented in this encounterThe [facility] Work Phone: 1(867) 390-119610-02-2024 [facility] Office Note Patient Name: Alma Mcpherson Referring Physician: No ref. provider found Date [...] Eliquis until we have permission from her grocery shopper. She will get specific instructions from our [...] of respiratory depression, ove (more content not included)...[facility] 06-01-2024 History of Present illness Narrative* Sujata Bradford CNP - 06/01/2024 11:15 AM EDT 05/29/24 Alma Mcpherson 1940 No chief complaint on file. HISTORY of Present Illness: Alma Mcpherson is a 83 y.o. year old female that presents today with No chief complaint on file. . Alma Mcpherson has had injections in the past. Last [...] and I have reviewed thisinformation with Alma Mcpherson at the time of their visit. They [...] - 06/01/2024 11:15 AM EDTAssociated Order(s): LG Nalinit Injection/Arthrocentesis: L subacromial bursa Post-Procedure Diagnose(s): Primary osteoarthritis of left shoulder RYAN Gaylet Injection/Arthrocentesis: L subacromial bursa Performed by: Sujata Bradford CNP Authorized by: Sujata Bradford CNP CPT 63024 - Large Joint Arthrocentesis: Consent given by: [...] CNP Authorized by: Sujata Bradford CNP CPT 19876 - Large Joint Arthrocentesis: Consent given by: [...] with no immediate complications documented in this [id number] History of Present illness Narrative* Jaylan Moscoso DO - 05/11/2024 12:04 PM EDT [facility] Interventional Pain Management Office Note Patient Name: Alma Mcpherson Referring Physician: No ref. provider found Date [...] ADHESION ; Surgeon: Smooth Sarabia MD; [place] [facility] [place]; Service: FOOT FUSION Left HYSTERECTOMY [...] a glass of wine evry couple [facility] Drug use: No Social Determinants of Health [...] min Stress: No Stress Concern Present (11/19/2020) [place]i Drift of Occupational Health - Occupational Stress Questionnaire [...] 5/5 Wrist Flex 5/5 Wrist Ext 5/5 It Security Consulting Director 5/5 LUE: Deltoid 5/5 Elbow Flex 5/5 Elbow Ext 5/5 Wrist Flex 5/5 Wrist Ext 5/5 It Security Consulting Director 5/5 Hyman negative bilaterally Other Tests Imaging [...] to contact me with any questions. Jaylan Moscoso D.O. Interventional Pain Management [facility] Shahriar drew Ankita This note was generated using VMTurbo voice recognition software in an effort to [...] falls: Denies Constipation: Denies documented in this [id number] Telephone encounter Note* Telephone Encounter - Joanne Quan CMA - 04/19/2024 10:10 AM EDT Received refill request for propafenone (RYTHMOL) 150 MG tablet . Pt's last OV was 07/2023. Follow up is due 04/2024. Scheduled for 05/2024 [id number] Miscellaneous Notes* Telephone Encounter - Joanne Quan CMA - 04/19/2024 10:10 AM EDT Received refill request for propafenone (RYTHMOL) 150 MG tablet . Pt's last OV was 07/2023. Follow up is due 04/2024. Scheduled for 05/2024 documented in this [id number] History of Present illness Narrative* Sancho Woodruff MD - 04/16/2024 2:40 PM EDT Subjective Patient ID: Alma Mcpherson is a 83 y.o. female who presents [...] Primary Care - Established documented in this [facility] Work Phone: 1(701) 521-407406-03-2024 History of Present illness Narrative* Sancho Woodruff MD - 03/12/2024 9:40 AM EDT Subjective Patient ID: Alma Mcpherson is a 83 y.o. female who presents for Knee Pain (left). HPI had bilat tkr about 7 yrs ago and now woth left knee pain for last 2 weeks[address] [place] 2 weeks ago with aspiration pneumonia, [...] knee left 4+ views documented in this encounterThe [facility] Work Phone: 1(708) 926-380005-15-2024 History of Present illness Narrative* Jaylan Moscoso, - 02/22/2024 10:41 AM EDT [facility] Interventional Pain Management Office Note Patient Name: Alma Mcpherson Referring Physician: Jose A Ornelas CNP Date [...] EXPLORATORY LAPAROTOMY LYSIS OF ADHESION ; Surgeon: Smooht Sarabia MD; [place] [facility] [place]; Service: FOOT FUSION Left HYSTERECTOMY [...] a glass of wine evry couple [facility] Drug use: No Social Determinants of Health [...] min Stress: No Stress Concern Present (11/19/2020) Somali Drift of Occupational Health - Occupational Stress Questionnaire [...] 5/5 Wrist Flex 5/5 Wrist Ext 5/5 It Security Consulting Director 5/5 LUE: Deltoid 5/5 Elbow Flex 5/5 Elbow Ext 5/5 Wrist Flex 5/5 Wrist Ext 5/5 It Security Consulting Director 5/5 Hyman negative bilaterally Other Tests Imaging [...] to contact me with any questions. Jaylan Moscoso D.O. Interventional Pain Management [facility] Shahriar viki Ankita This note was generated using VMTurbo voice recognition software in an effort to [...] falls: Denies Constipation: Denies documented in this [id number] History of Present illness Narrative* Sancho Woodruff MD - 01/16/2024 2:40 PM EDT Subjective Patient ID: Alma Mcpherson is a 83 y.o. female who presents [...] Acute UTI N39.0 AF (paroxysmal atrial fibrillation) ([facility]) I48.0 Relevant Medications furosemide (Lasix) 40 mg [...] medical examination at health care facility Z00.00 documented in this encounterThe [facility] Work Phone: 1(527) 853-595903-13-2024 History of Present illness Narrative* Jose A Ornelas CNP - 12/21/2023 1:00 PM EDT [facility] [address] ([address]) [facility] [address] [facility] [id number] Chief Complaint Patient presents with Follow-up Patient presents today with right sided head pain in the back of the head. Pressure when lying downis uncomfortable. Achiness in the face on the right. HPI Alma Mcpherson is a 82 y.o. female being seen on 12/21/23 presenting with Chief Complaint Patient presents with Follow-up Patient presents today with right sided head pain in the back of the head. Pressure when lying downis uncomfortable. Achiness in the face on the right. Patient has an extensive familial history of 1st degree relatives with cancer, CVA, and [place]. -Reports she has had the neck discomfort [...] is agreeable to a referral to Dr Moscoso for cervical TEDDY injections at this time. 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 This is being treated by her it operations specialist at [facility]. -She reports no other changes in [...] Reason: Patient Preference Referred to Provider: Jaylan Moscoso DO Number of Visits Requested: 1 OARRS/NARxCHECK [...] ADHESION ; Surgeon: Smooth Sarabia MD; [place] [facility] [place]; Service: FOOT FUSION Left HYSTERECTOMY [...] CNP 12/21/23 10:00 AM documented in this [id number] History of Present illness Narrative* Jose A Ornelas CNP - 11/15/2023 2:00 PM EST [facility] [address] [place] [address] office Chief Complaint Patient presents with Neck Pain Patient presents today with neck pain that travels to back of head on right side, hurts to touch. Pain in neck is worse with movement, so turning head to look both ways, bringing head up or down. Right hand to elbow has been numb off and on Alma Tl Mcpherson is a 82 y.o. female presenting to [...] we will place an order for an [place] collar upon review of images. Should XR [...] ADHESION ; Surgeon: Smooth Sarabia MD; [place] [facility] [place]; Service: FOOT FUSION Left HYSTERECTOMY [...] Mood normal. Behavior: Behavior normal. Jose A rOnelas CNP 11/17/2023 9:14 AM documented in this [id number] History of Present illness Narrative* Christine Voss CNP - 10/13/2023 3:23 PM ESTAssociated Order(s): LG Jt Injection/Arthrocentesis: L glenohumeral Post-Procedure Diagnose(s): Rotator cuff disorder, left 10/13/23 Alam Sureshon 1940 Chief Complaint Patient presents with Injections Left shoulder injection HISTORY of Present Illness: Alma Mcpherson is a 82 y.o. year old female that presents today with Injections (Left shoulder injection/) . Alma Mcpherson has had injections in the past. Last [...] and I have reviewed thisinformation with Alma Mcpherson at the time of their visit. They [...] CNP Authorized by: Christine Voss CNP CPT 36594 - Large Joint Arthrocentesis: Consent given by: [...] complications Christine Voss CNP documented in this [id number] History of Present illness Narrative* Sancho Woodruff MD - 10/13/2023 2:00 PM EST Subjective Reason for Visit: Alma Mcpherson is an 82 y.o. female here for [...] General Sancho Woodruff MD as PCP - [facility] Attributed Provider Review of Systems General-no [...] care facility - Primary documented in this [facility] Work Phone: 1(977) 697-320010-09-2023 Instructions* Patient Instructions* Dada Gee PA-C - [...] any questions or concerns. documented in this [id number] History of Present illness Narrative* Dada Gee [...] 5 Triceps 5 5 Deltoid 5 5 It Security Consulting Director 5 5 Hip Flexion 5 5 Knee Extension 5 5 Knee Flexion 5 5 Dorsiflexion 5 5 Plantar Flexion 5 5 EHL 5 5 Sensation intact light touch and pressure of all extremities No Baltazar no Babinski no clonus bilaterally Bicep, brachioradialis, patellar reflex 2+ bilaterally and symmetric documented in this [id number] History of Present illness Narrative* Sancho Woodruff MD - 07/07/2023 2:40 PM EDT Subjective Patient ID: Alma Mcpherson is a 82 y.o. female who presents [...] This Visit ICD-10-CM AF (paroxysmal atrial fibrillation) ([facility]) I48.0 Relevant Orders Follow Up In Primary [...] Up In Primary Care documented in this [facility] Work Phone: 1(108) 909-757609-06-2023 History of Present illness Narrative* Shawn Mcmillan PA-C - 06/15/2023 1:24 PM EDT Patient Information: Alma Mcpherson is a 82 y.o. female 1940 HPI [...] call with any questions. documented in this [id number] History of Present illness Narrative* Sancho Woodruff MD - 06/09/2023 8:20 AM EDT Subjective Patient ID: Alma Mcpherson is a 82 y.o. female who presents [...] (Vibramycin) 100 mg capsule documented in this encounterThe [facility] Work Phone: 1(433) 355-932308-25-2023 History of Present illness Narrative* Kendra Mena [...] of infection, or concerns. documented in this [id number] History of Present illness Narrative* Kendra Mena RN - 05/27/2023 1:29 PM EDT Prevena wound vac dressing applied to lumbar incision per request of Dr. Monique. Incision cleaned, allowed to dry, dressing applied. Suction noted, instructions provided to patient and , sent extra strips and information booklet with them documented in this [id number] History of Present illness Narrative* Bridger Monique [...] check. Bridger Monique MD documented in this [id number] History of Present illness Narrative* Kendra Mena [...] worsening symptoms, any drainage. documented in this [id number] History of Present illness Narrative* Kendra Mena [...] any drainage or concerns. documented in this [id number] Note* Quick Note - Shakila Ortiz RN - 05/19/2023 12:58 PM EDT Spoke to Jose A Ornelas CNP about patients jimenez and discharge home. Clarified pain medication [id number] Miscellaneous Notes* Quick Note - Shakila Ortiz RN - 05/19/2023 12:58 PM EDT Spoke to Jose A Ornelas CNP about patients jimenez and discharge home. Clarified pain medication * Brief Op Note - Bridger Monique MD - 05/19/2023 12:05 PM EDT Brief Post Operative Note Patient Name: Alma Mcpherson : 1940 (82 y.o.) Date of Service: 05/19/2023 CSN: [id number] Procedure(s): Right Sacral 1-2- Iliac Fixation and Fusion with Sacroplasty Pre-Operative Diagnoses: * Sacral insufficiency fracture with delayed healing [M84.48XG] Post-Operative Diagnoses: * Sacral insufficiency fracture with delayed healing [M84.48XG] Surgeon(s) and Role: * Bridger Monique MD - Primary Anesthesiologist: Luis M Garza MD JOB LITHOGRAPHER: Leslee Hassan CRNA; Dmitri Perry CRNA; Glendy Springer CRNA Paper Cleaner: Toyin Rios RN Summer Camp Counselor: Delisa Oneal Hand Molder: Estrella Viera, TECHNOLOGIST Scrub Person: Pablo Shannon ST; Jones, Sarah J, RN Operative findings: sacral fracture Intra and immediate post-operative complications: none Type of anesthesia used: General Estimated blood loss: 250 mL Estimated urine output: 500 mL Specimen(s): * No specimens in log * Implant(s): Implant Name Type Inv. Item Serial No. Director Digital Sales Lot No. LRB No. Used Action SEALANT 10ML HEMOSTATIC MATRIX FAST PREP FLOSEAL - S. SEALANT 10ML HEMOSTATIC MATRIX FAST PREP FLOSEAL . Casero [id number] Right 1 Implanted HEMOSTAT 4 X 8IN SURGICEL - S. HEMOSTAT 4 X 8IN SURGICEL . ETHICON [id number] Right 1 Implanted HEMOSTAT 2 X 4IN SURGICEL FIBRILLAR - S. HEMOSTAT 2 X 4IN SURGICEL FIBRILLAR . ETHICON [id number] Right 1 Implanted HEMOSTAT 8 X 12.5CM X 10MM SURGIFOAM GELATIN SPONGE - S. HEMOSTAT 8 X 12.5CM X 10MM SURGIFOAM GELATIN SPONGE . ETHICON [id number] Right 1 Implanted PUTTY 5CC MIKAELA DB - [id number] Bone PUTTY 5CC MIKAELA [facility] [id number] MEDTRONIC . Right 1 Implanted STRIP 10 X 2 X 0.6CM 12CC SGL MASTERGRAFT - S. Graft STRIP 10 X 2 X 0.6CM 12CC SGL MASTERGRAFT . MEDTRO J CARLOS [id number] Right 1 Implanted KIT AUTOPLEX W/VERTAPLEX HV CEMENT - S. Cement KIT AUTOPLEX W/VERTAPLEX HV CEMENT . SAMIR [id number] Right 1 Implanted TOMASZ MOMO 40MM . LOAD 19 Right 1 Implanted Fenestrated Screw 8.5 60mm . SAMIR . Right 1 Implanted Fenestrated Screw 7.5 50mm . SAMIR . Right 1 Implanted Wall Set Screw . SAMIR . Right 2 Implanted Drain(s): Urethral Catheter Non-latex 16 Fr. (Active) Wound(s): Wound 11/29/19 Surgical Wound Shoulder Right (Active) Wound 05/19/23 Surgical Wound Lumbar Spine;Thoracic Spine (Active) Wound Closure Surgical Adhesive 05/02/23 0002 Bridger Monique MD 05/19/2023 12:05 PM * Op Note - Bridger Monique MD - 05/19/2023 10:08 AM EDT [facility]MA [facility] [id number] N [id number] 1940 DATE 05/19/2023 OPERATIVE REPORT SURGEON BRIDGER MONIQUE MD PREOPERATIVE DIAGNOSIS Right extensive sacral alar insufficiency fracture with chronic pain. POSTOPERATIVE DIAGNOSIS Right extensive sacral alar insufficiency fracture with chronic pain. PROCEDURE Right S1, S2 iliac pelvic instrumentation, right S1, S2, S3, S4 posterior-lateral autograft fusion, right sacroplasty. ANESTHESIA General. INDICATION Alma Mcpherson is an 82-year-old female who sustained an [...] onset of procedure for antibiotic prophylaxis. The iRule intraoperative CT and navigation were used throughout the procedure to ensure appropriate trajectory of instrumentation. In addition, Cell Saver was used throughout the procedure; however, there was not sufficient blood loss to allow for spin down. The ham passer team also obtained 30 cc the platelet-poor [...] sacroiliac pelvic fixation screws were placed. The Samir Wall fenestrated screw system was used. Screws were placed 1st by drilling a towboat pilot hole and then navigating a Lenke [...] performed. Samir VertaPlex cement was mixed per inspector and tester's standard technique in the VertaPlex cement delivery [...] noemy cap and final torque tightening to inspector and tester's recommended technique. AP, lateral final x-rays were [...] and transferred to PACU in stable condition. BRIDGER MONIQUE MD D 05/19/2023 11:55 [id number] T 05/19/2023 12:35 [facility] documented in this [id number] Hospital Discharge instructions * Discharge Instructions* Shakila Ortiz RN - 05/19/2023 12:51 PM EDT GENERAL POST-OPERATIVE PATIENT INSTRUCTIONS ANESTHESIA PRECAUTIONS: A responsible adult must stay with you for at least 24 hours after surgery. You may feel light headed,, dizzy, or nauseated during this time. Do not operate a vehicle (car, bike, motorcycle, log clerk) machinery or power tools. Do not make [...] to call your physician or the hospital explosive operator supervisor if you have any questions, and they will be glad to assist you. documented in this [id number] Note* Addendum Note - Luis M Garza MD - 05/19/2023 12:28 PM EDT Addendum created 05/19/231227 by Luis M Garza MD Child order released for a procedure order, Clinical Note Signed, Intraprocedure Blocks edited, LDAcreated via procedure documentation, SmartForm saved [id number] Miscellaneous Notes* Addendum Note - Luis M Garza MD - 05/19/2023 12:28 PM EDT Addendum created 05/19/231227 by Luis M Garza MD Child order released for a procedure order, Clinical Note Signed, Intraprocedure Blocks edited, LDAcreated via procedure documentation, SmartForm saved documented in this [id number] Anesthesiology procedure note* Anesthesia Procedure Notes - [...] Final orientation: left Final location: radial Monitoring: case monitor, pulse oximetry, heart rate and BP Sedation: [...] immediate complications *See MAR for medication administration [facility] Work Phone: [phone]) [phone] Surgical operation note* Anesthesia Procedure Notes - [...] Final orientation: left Final location: radial Monitoring: case monitor, pulse oximetry, heart rate and BP Sedation: [...] fracture Other Positive: cancer documented in this [id number] Anesthesiology Postoperative evaluation and management note* Anesthesia [...] Patient has satisfactorily recovered from her anesthetic. [id number] Hospital course Narrative* Bridger Monique MD - 05/19/2023 12:09 PM EDT DISCHARGE SUMMARY Patient: Alma Mcpherson Date of : 1940 Site: [facility] Provider: Sancho Woodruff MD Admit Date: 05/19/2023 Discharge Date/Time: 05/19/23 Midday Disposition: Home Clinical Summary Hospital Course: Alma Mcpherson is a 82 y.o. female patient of [...] apixaban 5 mg Tab Commonly known as: Sairaqukendra Physician(s) Family Provider: Sancho Woodruff MD, Address: [address] [place] [address] / [place] [id number] Follow Up: No follow-up provider specified. Additional [...] on 05/19/23, 12:09 PM documented in this [id number] Note* Brief Op Note - Bridger Monique MD - 05/19/2023 12:05 PM EDT Brief Post Operative Note Patient Name: Alma Mcpherson : 1940 (82 y.o.) Date of Service: 05/19/2023 [facility]: [id number] Procedure(s): Right Sacral 1-2- Iliac Fixation and Fusion with Sacroplasty Pre-Operative Diagnoses: * Sacral insufficiency fracture with delayed healing [M84.48XG] Post-Operative Diagnoses: * Sacral insufficiency fracture with delayed healing [M84.48XG] Surgeon(s) and Role: * Bridger Monique MD - Primary Anesthesiologist: Luis M Garza MD JOB LITHOGRAPHER: Leslee Hassan CRNA; Dmitri Perry CRNA; Glendy pSringer CRNA Paper Cleaner: Toyin Rios RN Summer Camp Counselor: Delisa Oneal Hand Molder: Estrella Viera, TECHNOLOGIST Scrub Person: Pablo Shannon ST; Jones, Sarah J, RN Operative findings: sacral fracture Intra and immediate post-operative complications: none Type of anesthesia used: General Estimated blood loss: 250 mL Estimated urine output: 500 mL Specimen(s): * No specimens in log * Implant(s): Implant Name Type Inv. Item Serial No. Director Digital Sales Lot No. LRB No. Used Action SEALANT 10ML HEMOSTATIC MATRIX FAST PREP FLOSEAL - S. SEALANT 10ML HEMOSTATIC MATRIX FAST PREP FLOSEAL . Casero [id number] Right 1 Implanted HEMOSTAT 4 X 8IN SURGICEL - S. HEMOSTAT 4 X 8IN SURGICEL . ETHICON [id number] Right 1 Implanted HEMOSTAT 2 X 4IN SURGICEL FIBRILLAR - S. HEMOSTAT 2 X 4IN SURGICEL FIBRILLAR . ETHICON [id number] Right 1 Implanted HEMOSTAT 8 X 12.5CM X 10MM SURGIFOAM GELATIN SPONGE - S. HEMOSTAT 8 X 12.5CM X 10MM SURGIFOAM GELATIN SPONGE . ETHICON [id number] Right 1 Implanted PUTTY 5CC MIKAELA DBM - [id number] Bone PUTTY 5CC MIKAELA DBM [id number] MEDTRONIC . Right 1 Implanted STRIP 10 X 2 X 0.6CM 12CC SGL MASTERGRAFT - S. Graft STRIP 10 X 2 X 0.6CM 12CC SGL MASTERGRAFT . MEDTRO J CARLOS [id number] Right 1 Implanted KIT AUTOPLEX W/VERTAPLEX HV CEMENT - S. Cement KIT AUTOPLEX W/VERTAPLEX HV CEMENT . SAMIR [id number] Right 1 Implanted TOMASZ MOMO 40MM . LOAD 19 Right 1 Implanted Fenestrated Screw 8.5 60mm . SAMIR . Right 1 Implanted Fenestrated Screw 7.5 50mm . SAMIR . Right 1 Implanted Wall Set Screw . SAMIR . Right 2 Implanted Drain(s): Urethral Catheter Non-latex 16 Fr. (Active) Wound(s): Wound 11/29/19 Surgical Wound Shoulder Right (Active) Wound 05/19/23 Surgical Wound Lumbar Spine;Thoracic Spine (Active) Wound Closure Surgical Adhesive 05/02/23 0002 Bridger Monique MD 05/19/2023 12:05 PM [id number] Procedure anesthesia Narrative* Procedure Summary Procedure Name [...] Line Placement Date: 05/10 ; Placemnt Time: 1227 (created via procedure documentation); Orientation: Left; Location: Radial; Site Prep: Chlorhexidine ; Insertion Attempts: 1; Pt Tolerance: Tolerated well 05/19/23 1227 by Luis M Garza MD ETT Placement Date: 05/10 ; Placement Time: 904 (created via procedure documentation); Mask Ventilation: Ventilated by mask; Type: Cuffed, Oral; Tube Size: 7 mm; Grade View: 1; Insertion Attempts: 1; Removal Date: 05/19/23; Removal Time: 1158 05/19/23 09 by Dmitri Perry CRNA 05/19/23 1158 by Glenyd Springer CRNA documented in this encounter [id number] Note* Op Note - Bridger Monique MD - 05/19/2023 10:08 AM EDT [facility] [id number] 1940 DATE 05/19/2023 OPERATIVE REPORT SURGEON BRIDGER MONIQUE MD PREOPERATIVE DIAGNOSIS Right extensive sacral alar insufficiency fracture with chronic pain. POSTOPERATIVE DIAGNOSIS Right extensive sacral alar insufficiency fracture with chronic pain. PROCEDURE Right S1, S2 iliac pelvic instrumentation, right S1, S2, S3, S4 posterior-lateral autograft fusion, right sacroplasty. ANESTHESIA General. INDICATION Alma Mcpherson is an 82-year-old female who sustained an [...] onset of procedure for antibiotic prophylaxis. The iRule intraoperative CT and navigation were used throughout the procedure to ensure appropriate trajectory of instrumentation. In addition, Cell Saver was used throughout the procedure; however, there was not sufficient blood loss to allow for spin down. The ham passer team also obtained 30 cc the platelet-poor [...] sacroiliac pelvic fixation screws were placed. The [employer] Wall fenestrated screw system was used. Screws were placed 1st by drilling a towboat pilot hole and then navigating a Lenke [...] ala segment. Next, a sacroplasty was performed. [place] VertaPlex cement was mixed per inspector and tester's standard technique in the VertaPlex cement delivery [...] noemy cap and final torque tightening to inspector and tester's recommended technique. AP, lateral final x-rays were [...] stable condition. MD Matthias CHAUDHARI 05/19/2023 11:55 [id number] T 05/19/2023 12:35 [facility]/MODL [id number] Anesthesiology procedure note* Anesthesia Procedure Notes - [...] trauma: no *See MAR for medication administration [facility] Work Phone: 1(623) 298-573508-10-2023 Attending History and physical note* Bridgre Monique MD - 05/19/2023 8:50 AM EDT INTERVAL HISTORY AND PHYSICAL Patient Name: Alma Mcpherson Admit Date: 8091112 MR #: [id number] : 1940 The H&P has been reviewed [...] to provide neurosurgical evaluation consultation on Alma Mcpherson. Alma is an 82-year-old female with bilateral [...] MRI of the sacrum of 01/04/2023 from [facility] were independently reviewed by me on [...] MAR. Psychosocial review. The patient lives in [facility] with her . She is a sister [...] Bridger Monique MD Office Visit on 04/14/2023 [id number] History and physical note* Bridger Monique MD - 05/19/2023 8:50 AM EDT INTERVAL HISTORY AND PHYSICAL Patient Name: Alma Mcpherson Admit Date: 8091112 MR #: [id number] : 1940 The H&P has been reviewed [...] to provide neurosurgical evaluation consultation on Alma Mcpherson. Alma is an 82-year-old female with bilateral [...] MRI of the sacrum of 01/04/2023 from [facility] were independently reviewed by me on [...] MAR. Psychosocial review. The patient lives in [facility] with her . She is a sister [...] to provide neurosurgical evaluation consultation on Alma Mcpherson. Alma is an 82-year-old female with bilateral [...] MRI of the sacrum of 01/04/2023 from [facility] were independently reviewed by me on [...] MAR. Psychosocial review. The patient lives in [facility] with her . She is a sister [...] Office Visit on 04/14/2023 documented in this [id number] History and physical note* Bridger Monique MD - 05/19/2023 8:48 AM EDT Neurosurgical preoperative history and physical for procedure of 05/19/2023. Chief complaint. Axial lumbar pain and right sacral ala fracture HPI I am asked by Dr. Woodruff to provide neurosurgical evaluation consultation on Alma Mcpherson. Alma is an 82-year-old female with bilateral [...] MRI of the sacrum of 01/04/2023 from [facility] were independently reviewed by me on [...] MAR. Psychosocial review. The patient lives in [facility] with her . She is a sister [...] Bridger Monique MD Office Visit on 04/14/2023 [id number] Anesthesiology Preoperative evaluation and management note * [...] Positive: hypothyroidism, anemia fracture Other Positive: cancer [id number] History of Present illness Narrative* Burt Vasquez, ELIJAH - 05/05/2023 9:42 AM EDT Pre-Operative H&P [...] preoperative Eliquis management. 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 female who presents for preoperative medical risk stratification consult at the request of Dr. Monique [facility] 2- Iliac Fixation and Fusion with [...] ADHESION ; Surgeon: Smooth Sarabia MD; [place] [facility]; Service: FOOT FUSION Left HYSTERECTOMY OOPHORECTOMY RADIATION uterine ca TONSILLECTOMY TOTAL HIP ARTHROPLASTY Right TOTAL KNEE ARTHROPLASTY Bilateral TUMOR EXCISION NEAR OVARIES VEIN LIGATION Left LEG Social History Tobacco Use Smoking status: Never Passive exposure: Never Smokeless tobacco: Never Substance Use Topics Alcohol use: Not Currently Comment: a glass of wine evry couple [facility] Family History Problem Relation Age of Onset [...] Preprocedure Sleep Apnea Assessment - High Risk (3/3) Sleep Apnea in the patient's Active Problem [...] Nuclear Report Patient: [place] Boothe Med Rec#: [id number] (Age): 1940(78y) Height: Study Date: 11/20/2019 Weight: [...] imaging protocol was followed using Tc-99m tetrofosmin ([employer]) injected intravenously. For the rest portion of [...] of the lumbar spine. FINDINGS: Anatomy: 5 aee-pfe-yrrhuzm lumbar segments. Increased lumbar levoconvex curvature measuring [...] well. Workstation ID: [id number] documented in this [id number] Evaluation + Plan note* Assessment & Plan Note - Burt Vasquez CNP - 05/05/2023 9:37 AM EDT Associated Problem(s): Pre-op examination INIGUEZ score indicates a 0.5% risk of WA or cardiac arrest, intraoperatively or up to [...] an elevated, but acceptable risk for surgery. [id number] Miscellaneous Notes* Assessment & Plan Note - Burt Vasquez CNP - 05/05/2023 9:37 AM EDTAssociated Problem(s): Pre-op examination INIGUEZ score indicates a 0.5% risk of WA or cardiac arrest, intraoperatively or up to [...] EDT Associated Problem(s): Coronary artery disease involving king salmon coronary artery of king salmon heart without angina pectoris History of trivial [...] Dr. Monique on 05/06/2023. documented in this [id number] Evaluation + Plan note* Assessment & Plan Note - Burt Vasquez CNP - 05/05/2023 9:34 AM EDT Associated Problem(s): GERD (gastroesophageal reflux disease) Well controlled with medical therapy. Pt has been advised to take Dexilant the morning of surgery with a small sip of water. [id number] Evaluation + Plan note* Assessment & Plan Note - Burt Vasquez CNP - 05/05/2023 9:27 AM EDTAssociated Problem(s): Hypothyroidism Pt is compliant with medical therapy. Continue as prescribed. [id number] Evaluation + Plan note* Assessment & Plan Note - Burt Vasquez CNP - 05/05/2023 9:27 AM EDTAssociated Problem(s): Dyslipidemia Pt is compliant with statin therapy- continue as prescribed. [address]MattPmcefm57-09-2524 Evaluation + Plan note* Assessment & Plan Note - Burt Vasquez CNP - 05/05/2023 9:16 AM EDTAssociated Problem(s): Coronary artery disease involving king salmon coronary artery of king salmon heart without angina pectoris History of trivial coronary disease by coronary CCTA. Pt denies any anginal type chest discomfort, lightheadedness, or palpitations at this office visit. Previous cardiology testing and notes reviewed. [id number] Evaluation + Plan note* Assessment & Plan Note - Burt Vasquez CNP - 05/05/2023 9:11 AM EDTAssociated Problem(s): Atrial fibrillation (HCC) Stable. NSR per EKG today. Pt has been advised to take Rythmol the morning of surgery with a small sip of water. Pt advised to follow surgeon instruction for preoperative Eliquis management. [address]RimyOhsdgu91-81-8080 Evaluation + Plan note* Assessment & Plan Note - Burt Vasquez CNP - 05/05/2023 9:10 AM EDTAssociated Problem(s): HTN (hypertension) BP is well controlled at this office visit, 131/69. Pt has been advised to take Cardizem the morning of surgery with a small sip of water. [address]SledAffacs36-20-8768 Evaluation + Plan note* Assessment & Plan Note - Burt Vasquez CNP - 05/05/2023 9:05 AM EDTAssociated Problem(s): Sacral insufficiency fracture with delayed healing Pt scheduled to undergo a Rigt Sacral 2- Iliac Fixation and Fusion with Sacroplasty with Dr. Monique on 05/06/2023. [id number] Instructions* Patient Instructions* Burt Vasquez CNP - [...] medications that contain aspirin, such as Brittany Isom, Pepto-Bismol, Anacin), antiinflammatory medications such as Advil, Motrin, Ibuprofen, Naproxen, Aleve, Brittany Isom, Pepto-Bismol, Anacin, Diclofenac, Voltaren, Daypro, Etodolac, Ketoprofen, Piroxicam, Relafen, Nabumetone, etc. Also disc ontinue Vitamin C, Vitamin E, S[place]-3 Fatty Acid, Fish Oil or Lovaza, and [...] them to the hospital. Patient Instructions for [facility]: Prior to surgery: Surgeon's office will contact you with the scheduled time of your surgery. You may use the [employer] parking available at the Main Entrance One [...] any makeup or lotions. Remove all nail romanian for surgeries involving extremities. Please remember to bring both your insurance card and a photo ID with you on the day of surgery. After your surgery: If you are having outpatient surgery - you must have a licensed furniture delivery driver to take you home. The expectation is that this furniture delivery driver will remain at the hospital for the duration of your procedure. You are advised to have a family member with you for at least 24 hours after being under Anesthesia. If you have sleep apnea and have a CPAP/BIPAP mask, please bring it with you the day of surgery. documented in this [id number] Evaluation + Plan note* Assessment & Plan Note - Wang Borges MD - 04/25/2023 7:10 PM EDT Associated Problem(s): Dyslipidemia Continue atorvastatin 10 mg daily with a target LDL of 70. We have previously discussed discontinuing fish oil given increased bleeding risk [id number] Evaluation + Plan note* Assessment & Plan Note - Wang Borges MD - 04/25/2023 7:10 PM EDTAssociated Problem(s): Coronary artery disease involving king salmon coronary artery of king salmon heart without angina pectoris History of trivial coronary disease by coronary CCTA. No aspirin given chronic Eliquis use and risk-benefit ratio in an 82-year-old. Continue statin. [id number] Evaluation + Plan note* Assessment & Plan Note - Wang Borges MD - 04/25/2023 7:10 PM EDTAssociated Problem(s): HTN (hypertension) Blood pressure 139/86 is appropriate for an 82-year-old on oral anticoagulation. Continue Cardizem CD 240 mg daily, no changes [id number] Miscellaneous Notes* Assessment & Plan Note - Wang Borges MD - 04/25/2023 7:10 PM EDTAssociated Problem(s): Dyslipidemia Continue atorvastatin 10 mg daily with a target LDL of 70. We have previously discussed discontinuing fish oil given increased bleeding risk * Assessment & Plan Note - Wang Borges MD - 04/25/2023 7:10 PM EDT Associated Problem(s): Coronary artery disease involving king salmon coronary artery of king salmon heart without angina pectoris History of trivial [...] I will correct that. documented in this [id number] Evaluation + Plan note* Assessment & Plan Note - Wang Borges MD - 04/25/2023 7:09 PM EDT Associated Problem(s): Atrial fibrillation (HCC) In sinus rhythm today on propafenone 150 mg twice daily. I did review that the appropriate dose forher based on her age, weight and renal function was 5 mg twice daily of Eliquis. I will correct that. [id number] Telephone encounter Note* Telephone Encounter - Jonas Johnston MA - 04/18/2023 2:18 PM EDT Received refill request for atorvastatin 10 mg every day /3. Pt's last OV was 04/11/23. Follow up is due yearly thanks. [id number] Miscellaneous Notes* Telephone Encounter - Jonas Johnston MA - 04/18/2023 2:18 PM EDT Received refill request for atorvastatin 10 mg every day /3. Pt's last OV was 04/11/23. Follow up is due yearly thanks. documented in this [id number] History of Present illness Narrative* Bridger Monique [...] to provide neurosurgical evaluation consultation on Alma Mcpherson. Alma is an 82-year-old female with bilateral [...] MRI of the sacrum of 01/04/2023 from [facility] were independently reviewed by me on [...] MAR. Psychosocial review. The patient lives in [facility] with her . She is a sister [...] schedule. Bridger Monique MD documented in this [id number] History of Present illness Narrative* Wang Borges MD - 04/13/2023 7:58 AM EDT Interventional Cardiology Clinic Follow-up Heart & Vascular [facility] 04/11/2023 Wang Borges MD [address] [place] [id number] Patient: Alma Mcpherson Date of : 1940 (82 y.o.) PCP: [...] daily, no changes Coronary artery disease involving king salmon coronary artery of king salmon heart without angina pectoris History of trivial [...] visit) Subjective History of Present Illness: Alma Mcpherson is a 82 y.o. female who comes [...] And Without Contrast Final Result by Andrew Xie DO (02/12/20202036) CCTA Heart (Clinical Application Consultant read) Final Result by Chante Oliva MD [...] maximum 14 days allowed.) documented in this [id number] History of Present illness Narrative* Sancho Woodruff MD - 04/05/2023 3:40 PM EDT Subjective Patient ID: Alma Mcpherson is a 82 y.o. female who presents [...] Visit Circulatory AF (paroxysmal atrial fibrillation) (CMS/FORMERLY [facility]) - Primary Relevant Orders Follow Up In Primary Care Digestive GI bleed Relevant Orders Follow Up In Primary Care Musculoskeletal DDD (degenerative disc disease), lumbosacral Relevant Orders Follow Up In Primary Care Lumbar stenosis with neurogenic claudication Relevant Orders Follow Up In Primary Care Other Hyperlipemia Relevant Orders Follow Up In Primary Care documented in this [facility] Work Phone: 1(142) 224-304706-15-2023 History of Present illness Narrative* On a [...] to the appointment to get their opinion. 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 Surgeon: Maria Teresa Epperson Resident/Fellow/Other Director Surgical: None of these were associated with this [...] Last Updated: 04-Mar-2023 17:12 by Maria Teresa Epperson)[facility]05-26-2023 Miscellaneous Notes* Op Note - Maria Teresa Epperson MD - 03/04/2023 1:08 PM EDT PROCEDURE DETAILS Preoperative Diagnosis: Disorder of right sciatic nerve, 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 Postoperative Diagnosis: Disorder of right sciatic nerve, 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 Surgeon: Maria Teresa Epperson Resident/Fellow/Other Director Surgical: None of these were associated with this [...] the procedure without a resident Electronic Signatures: Marai Teresa Epperson) (Signed 04-Mar-2023 17:12) Authored: Post-Operative Note, Chart Review, Note Completion Last Updated: 04-Mar-2023 17:12 by Maria Teresa Epperson) documented in this [facility] Work Phone: 1(502) 779-696505-26-2023 Note* Op Note - Maria Teresa Epperson MD - 03/04/2023 1:08 PM EDT PROCEDURE DETAILS Preoperative Diagnosis: Disorder of right sciatic nerve, 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 Postoperative Diagnosis: Disorder of right sciatic nerve, 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 Surgeon: Maria Teresa Epperson Resident/Fellow/Other Director Surgical: None of these were associated with this [...] Updated: 04-Mar-2023 17:12 by Maria Teresa Epperson) [facility] Work Phone: 1(616) 910-607205-12-2023 NotePROCEDURE DETAILS Preoperative Diagnosis: Trochanteric bursitis of the left hip, M70.62 Postoperative Diagnosis: Trochanteric bursitis of the left hip, M70.62 Surgeon: Maria Teresa Epperson Resident/Fellow/Other Director Surgical: None of these were associated with this [...] Last Updated: 18-Feb-2023 20:39 by Maria Teresa Epperson)[facility]05-12-2023 Miscellaneous Notes* Op Note - Maria Teresa Epperson MD - 02/18/2023 10:38 AM EDT PROCEDURE DETAILS Preoperative Diagnosis: Trochanteric bursitis of the left hip, M70.62 Postoperative Diagnosis: Trochanteric bursitis of the left hip, M70.62 Surgeon: Maria Teresa Epperson Resident/Fellow/Other Director Surgical: None of these were associated with this [...] resident Electronic Signatures: Maria Teresa Epperson) (Signed 12-May-2023 20:39) Authored: Post-Operative Note, Chart Review, Note Completion Last Updated: 18-Feb-2023 20:39 by Maria Teresa Epperson) documented in this [facility] Work Phone: 1(435) 205-985705-12-2023 Note* Op Note - Maria Teresa Epperson MD - 02/18/2023 10:38 AM EDT PROCEDURE DETAILS Preoperative Diagnosis: Trochanteric bursitis of the left hip, M70.62 Postoperative Diagnosis: Trochanteric bursitis of the left hip, M70.62 Surgeon: Maria Teresa Epperson Resident/Fellow/Other Director Surgical: None of these were associated with this [...] Last Updated: 18-Feb-2023 20:39 by Maria Teresa Epperson () [facility] Work Phone: 1(488) 163-678305-11-2023 History of Present illness Narrative* Sancho Woodruff MD - 02/17/2023 2:40 PM EDT Subjective Patient ID: Alma Mcpherson is a 82 y.o. female who presents for 3 mo fu. HPI Remains off eliquis , tires easily, cont woth pain in back and hip. Only back 30% Sees rako next week for first visist, thommaria eugenia soon and cardio in April We will check [...] follow-up with Dr. Hayden [facility] Work Phone: 1(698) 926-457804-14-2023 Hospital Discharge instructions* Additional Orders:Additional Instructions: NEW:1. Ferrous sulfate 325 mg 1 p.o. twice dailyCHANGE:1. Eliquis 5 mg half a tab twice dailyFollow-up with Dr. Woodruff 1 weekFollow-up with Dr. Lal's office in 1 week; CBC prior * Follow Up Appointment 1:Physician/Dept/Service: Dr. Tam for Referral: Hospital Follow-upCall to Schedule in: 1 weekLocation: [address], [place] [address]Pymgl Number: [phone]: Please call and schedule an appointment within 1 week of your Hospital Discharge * Follow Up Appointment 2:Physician/Dept/Service: Dr Yates for Referral: Hospital Follow-upLocation: [address], [place] [address]Hvmml Number: [phone]: Please call and schedule an appointment within 1 week of your Hospital Discharge [facility]04-14-2023 NoteSend Summary: Discharge Summary Providers: Provider RoleProvider [...] at Discharge: .Home Vital Signs: T PRBPMAPSpO2 Value36.51470224/5997% Date/Time01/21 10: 10: 20:14 10: 10:16 Range(35.4C - 37.3C ) (63 - 71 ) (12 - 16 ) (99 - 114 )/ (56 - 69 ) (90% - 97% ) Highest temp of 37.3 C was recorded at 01/20 18:50 Date: Weight/Scale Type:Height: 17-Jan-2023 17:1872.4 kg / apm954.1 cm Physical Exam: Constitutional: Awake and alert; [...] pain since but she denies taking any lisx-azn-pjygzlk pain meds. She was started on Eliquis [...] 1 cap(s) orally (more content not included)... [place] [address]-12-2023 NotePost Operative Note: PreOp Diagnosis: melena, anemia Post-Procedure Diagnosis: no active UGI bleeding Procedure: 1. EGD 2. 3. 4. 5. Surgeon: Damaris Resident/Fellow/Other Director Surgical: N/A Anesthesia: JARED Ortiz Estimated Blood Loss (mL): none Specimen: yes. VLADISLAV Findings: hematin in antrum of stomach. no active ulcer or bleed Electronic Signatures: Oksana Ocampo) (Signed 19-Jan-2023 15:45) Authored: Post Operative Note, Note Completion Last Updated: 19-Jan-2023 15:45 by Oksana Ocampo)[facility] 01-19-2023 NoteHistory & Physical Reviewed: I [...] Completion Last Updated: 19-Jan-2023 15:41 by Oksana Ocampo)[facility] 01-17-2023 NoteHistory of Present Illness: Admission Reason: Black stools HPI: ALMA MCPHERSON is a 82 year old Female This [...] and urology repair the ureter here at [facility]; she does not recall what they called [...] day, As Needed Mac (more content not included)...[facility]04-01-2023 History of Present illness Narrative* Alma [...] history of colon cancer in her sister [facility] [address] Work Phone: 1(431) 727-248903-22-2023 History of Present illness Narrative* On a [...] walking, and being active makes it worse. [facility] Work Phone: 1(262) 687-676503-20-2023 History of Present illness Narrative* Meryl Kearns LPN - 2022 2:49 PM EDT Referral to DR Epperson office faxed and sent via [employer]. Spoke with Dariela hudson abdullahi at Dr Epperson's office she will schedule her when referral gets there. documented in this [id number] History of Present illness Narrative* Christine Voss CNP - 2022 1:25 PM EDT [facility] [address] [facility] [address] [facility] [id number] Alma Mcpherson returns to the office today for follow-up [...] ADHESION ; Surgeon: Smooth Sarabia MD; [place] [facility] [place]; Service: FOOT FUSION FOOT SURGERY [...] her back as needed. documented in this [id number] History of Present illness Narrative* Christine Voss CNP - 05/13/2022 11:46 AM EDTAssociated Order(s): LG Jt Injection/Arthrocentesis: L glenohumeral Post-Procedure Diagnose(s): Rotator cuff disorder, left 05/13/22 Alma Mcpherson 1940 HISTORY of Present Illness: Alma Mcpherson is a 81 y.o. year old female that presents today with left shoulder pain. Alma Mcpherson has had injections in the past. Last [...] and I have reviewed thisinformation with Alma Mcpherson at the time of their visit. They [...] CNP Authorized by: Christine Voss CNP CPT 07330 - Large Joint Arthrocentesis: Consent given by: [...] with no immediate complications documented in this [id number] History of Present illness Narrative* Christine Voss CNP - 04/28/2022 10:07 PM EDTAssociated Order(s): LG Jt Injection/Arthrocentesis: L greater trochanteric bursa Post-Procedure Diagnose(s): Greater trochanteric bursitis of left hip 04/28/22 Alma [place]he [place] 1940 HISTORY of Present Illness: Alma Mcpherson is a 81 y.o. year old female that presents today with left hip pain. . Alma Mcpherson has had injections in the past. Last [...] and I have reviewed thisinformation with Alma [place]he [place] at the time of their visit. [...] CNP Authorized by: Christine Voss CNP CPT 77593 - Large Joint Arthrocentesis: Consent given by: [...] complications Christine Voss CNP documented in this [id number] Evaluation + Plan note* Assessment & Plan Note - Wang Borges MD - 03/21/2022 10:14 AM EDT Associated Problem(s): Coronary artery disease involving king salmon coronary artery of king salmon heart without angina pectoris Coronary artery disease [...] her symptoms of shortness of breath recur [id number] Evaluation + Plan note* Assessment & Plan Note - Wang Borges MD - 03/21/2022 10:14 AM EDTAssociated Problem(s): HTN (hypertension) Home blood pressure is well controlled on Cardizem CD 240 mg once daily and Lasix as needed [id number] Miscellaneous Notes* Assessment & Plan Note - Wang Borges MD - 03/21/2022 10:14 AM EDTAssociated Problem(s): Coronary artery disease involving king salmon coronary artery of king salmon heart without angina pectoris Coronary artery disease [...] with blood loss anemia. documented in this [id number] Evaluation + Plan note* Assessment & Plan [...] daily. No issues with blood loss anemia. [id number] History of Present illness Narrative* Wang Borges MD - 03/16/2022 2:13 PM EDT I replied to her EKG * Angelique Barfield RN - 03/12/2022 1:55 PM EDT Patient presented in office for Nurse Only EKG. EKG completed and routed to ordering physician. Patient pleasantly denies further needs. documented in this [id number] History of Present illness Narrative* Angelique Barfield RN - 03/12/2022 1:55 PM EDT Patient presented in office for Nurse Only EKG. EKG completed and routed to ordering physician. Patient pleasantly denies further needs. documented in this [id number] History of Present illness Narrative* Wang Borges MD - 03/09/2022 9:48 AM EDT Interventional Cardiology Clinic Follow-up Heart & Vascular [facility] 03/09/2022 Wang Borges MD [address] [address] Patient: Alma Mcpherson Date of : 1940 (81 y.o.) PCP: [...] Lasix as needed Coronary artery disease involving king salmon coronary artery of king salmon heart without angina pectoris Coronary artery disease [...] ) Subjective History of Present Illness: Alma Mcpherson is a 81 y.o. female who comes in today for routine cardiac follow-up. She tells methat in December, she was having gradual progression of dyspnea on exertion. She thinks that she had an irregular heartbeat and perhaps had several days of atrial fibrillation. She did have an echocardiogram at [facility]. I was able to read the report [...] And Without Contrast Final Result by Andrew Xie DO (02/12/20202036) [facility] (Clinical Application Consultant read) Final Result by Chante Oliva MD [...] maximum 14 days allowed.) documented in this [id number] History of Present illness Narrative* Christine Gill Shanika, REGIONAL PROGRAM MANAGER - 02/10/2022 3:42 PM EDT [address] [address] [facility] [address] [facility] [id number] No chief complaint on file. Alma Mcpherson returns to the office today for an [...] ADHESION ; Surgeon: Smooth Sarabia MD; [place] [facility] [place] Service: FOOT FUSION FOOT SURGERY [...] her back as needed. documented in this [id number] History of Present illness Narrative* Since the [...] of [facility] Work Phone: 1(961) 446-163204-20-2022 History of Present illness Narrative* Christine Voss CNP - 01/27/2022 9:00 AM EDT [facility] [address] [facility] [address] [facility] [id number] Alma Mcpherson returns to the office today for an [...] ADHESION ; Surgeon: Smooth Sarabia MD; [place] [facility] [place]; Service: FOOT FUSION FOOT SURGERY [...] her back as needed. documented in this [id number] History of Present illness Narrative* increasing edema [...] of [facility] Work Phone: 1(893) 391-453703-02-2022 Telephone encounter Note* Telephone Encounter - Shirley Perez MA - 12/09/2021 11:27 AM EST Received refill request electronically via [employer]. Pt last seen 11/19/2020, F/u in 6 months. Refilled Atorvastatin 10mg Daily #90 with 0 refill. Rx sent to [facility]. No Recall is in place,will send message to [facility]. No FLP [id number] Miscellaneous Notes* Telephone Encounter - Shirley Perez MA - 12/09/2021 11:27 AM EST Received refill request electronically via [employer]. Pt last seen 11/19/2020, F/u in 6 months. Refilled Atorvastatin 10mg Daily #90 with 0 refill. Rx sent to [facility]. No Recall is in place,will send message to [facility]. No FLP documented in this [id number] History of Present illness Narrative* GERD-Takes PPI [...] of [facility] Work Phone: 1(537) 353-464401-04-2022 History of Present illness Narrative* Christine Voss, ELIJAH - 10/13/2021 11:24 AM EST [facility] [address] [facility] [address] [facility] [id number] No chief complaint on file. Alma Mcpherson returns to the office today for injections [...] ADHESION ; Surgeon: Smooth Sarabia MD; [place] [facility] [place] Service: FOOT FUSION FOOT SURGERY [...] CNP Authorized by: Christine Voss CNP CPT 60939 - Large Joint Arthrocentesis: Consent given by: [...] CNP Authorized by: Christine Voss CNP CPT 51313 - Large Joint Arthrocentesis: Consent given by: [...] with no immediate complications documented in this [id number] History of Present illness Narrative* Ricky Bassett Jr., ADAMA - 08/05/2021 12:07 PM EDT Calluses Patient [...] and chronicity of calluses. documented in this [id number] History of Present illness Narrative* Chrsitine Voss CNP - 06/25/2021 12:23 PM EDT Associated Order(s): LG Jt Injection/Arthrocentesis: L greater trochanteric bursa Post-Procedure Diagnose(s): Greater trochanteric bursitis of left hip LG Jt Injection/Arthrocentesis: L greater trochanteric bursa Performed by: Christine Voss CNP Authorized by: Christine Voss CNP CPT 23889 - Large Joint Arthrocentesis: Consent given by: [...] original note were not included. [facility] [address] [facility] [address] [facility] [id number] Chief Complaint Patient presents with Left Hip - Pain Alma Mcpherson returns to the office today for pain [...] ADHESION ; Surgeon: Smooth Sarabia MD; [place] [facility] [place]; Service: FOOT FUSION FOOT SURGERY [...] Friends and Family: Not on file Attends Synagogue Services: Not on file Active Member of [...] her back as needed. documented in this [id number] History of Present illness Narrative* Christine Voss CNP - 02/25/2021 4:35 PM EDT Associated Order(s): LG Jt Injection/Arthrocentesis: L glenohumeral Post-Procedure Diagnose(s): Rotator cuff disorder, left LG Jt Injection/Arthrocentesis: L glenohumeral Performed by: Christine Voss CNP Authorized by: Christine Voss CNP CPT 93033 - Large Joint Arthrocentesis: Consent given by: [...] - 02/25/2021 4:25 PM EDT [facility] [address] [facility] [address] [facility] [phone] Chief Complaint Patient presents with Injections Almajc Mcpherson returns to the office today for an [...] ADHESION ; Surgeon: Smooth Sarabia MD; [place] [facility] [place]; Service: FOOT FUSION FOOT SURGERY [...] Social Gatherings with Friends and Family: Attends Synagogue Services: Active Member of Clubs or Organizations: [...] Unspecified essential hypertension Coronary artery disease involving king salmon coronary artery of king salmon heart without angina pectoris Dyslipidemia Other and [...] with noapparent distress or respiratory distress; pale [facility] Lumbar neuritis- Primary DDD (degenerative [...] mention of alcohol documented in this encounter [facility] Work Phone: Evaluation note* Diagnosis AF (paroxysmal atrial fibrillation) ([facility])- Primary Atrial fibrillation Gastrointestinal hemorrhage, unspecified gastrointestinal hemorrhage type DDD (degenerative disc disease), lumbosacral Degeneration of lumbar or lumbosacral intervertebral disc Lumbar stenosis with neurogenic claudication Mixed hyperlipidemia documented in this encounter [facility] Work Phone: Evaluation note* Diagnosis Sacral insufficiency fracture with delayed healing Spinal stenosis, lumbar region, without neurogenic claudication [facility] Diagnosis Paroxysmal atrial fibrillation (HCC)- Primary Atrial fibrillation PAF (paroxysmal atrial fibrillation) ([facility]) Atrial fibrillation Primary hypertension Unspecified essential hypertension Coronary artery disease involving king salmon coronary artery of king salmon heart without angina pectoris Dyslipidemia Other and unspecified hyperlipidemia [facility] Diagnosis Sacral insufficiency fracture with delayed healing- Primary Pre-op testing Unspecified pre-operative examination Sacral insufficiency fracture with delayed healing Primary hypertension Unspecified essential hypertension Paroxysmal atrial fibrillation (HCC) Atrial fibrillation Coronary artery disease involving king salmon coronary artery of king salmon heart without angina pectoris Dyslipidemia Other and [...] lower extremity- Primary documented in this encounter [facility] Work Phone: Evaluation note* Diagnosis Sacroiliac dysfunction- Primary Nonallopathic lesion of sacral region, not elsewhere classified [facility] Diagnosis Iron deficiency anemia, unspecified iron deficiency anemia type- Primary AF (paroxysmal atrial fibrillation) ([facility]) Atrial fibrillation Gastrointestinal hemorrhage, unspecified gastrointestinal hemorrhage type DDD (degenerative disc disease), lumbosacral Degeneration of lumbar or lumbosacral intervertebral disc Lumbar stenosis with neurogenic claudication Mixed hyperlipidemia Acquired hypothyroidism Unspecified hypothyroidism documented in this encounter [facility] Work Phone: Evaluation note* Diagnosis Lesion of sciatic nerve, right lower limb [facility] (current) use of aspirin Pain, unspecified documented in this encounter [facility] Work Phone: Evaluation note* Diagnosis Trochanteric bursitis, left hip 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) use of aspirin Presence of unspecified artificial hip joint Presence of unspecified artificial knee joint Acquired absence of other specified parts of digestive tract 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, including canthus documented in this encounter [facility] Work Phone: Evaluation note* Diagnosis Routine general medical examination at health care facility- Primary Routine general medical examination at a health care facility AF (paroxysmal atrial fibrillation) ([facility]) Atrial fibrillation Gastrointestinal hemorrhage, unspecified gastrointestinal hemorrhage type DDD (degenerative disc disease), lumbosacral Degeneration of lumbar or lumbosacral intervertebral disc Lumbar stenosis with neurogenic claudication Mixed hyperlipidemia Iron deficiency anemia, unspecified iron deficiency anemia type Acquired hypothyroidism Unspecified hypothyroidism Acute UTI Urinary tract infection, site not specified documented in this encounter [facility] Work Phone: Evaluation note* Diagnosis Rotator cuff disorder, left- Primary [facility] Diagnosis Cervical radicular pain- Primary Cervicalgia Rotator cuff disorder, right Rotator cuff disorder, left Cervical radicular pain [facility] Diagnosis Rotator cuff disorder, right- Primary Cervicalgia [facility] Diagnosis AF (paroxysmal atrial fibrillation) ([facility]) Atrial fibrillation Gastrointestinal hemorrhage, unspecified gastrointestinal hemorrhage [...] site not specified documented in this encounter [facility] Work Phone: Evaluation note* Diagnosis Cervical radiculopathy- Primary Brachial neuritis or radiculitis nos Cervicalgia [facility] Diagnosis Acute pain of left knee- Primary Chronic liver disease and cirrhosis (Multi) Unspecified chronic liver disease without mention of alcohol documented in this encounter [facility] Work Phone: Evaluation note* Diagnosis Acute pain of left knee documented in this encounter [facility] Work Phone: Evaluation note* Diagnosis [...] Loss of weight documented in this encounter [facility] Work Phone: Evaluation note* Diagnosis AF (paroxysmal atrial fibrillation) (Multi) Atrial fibrillation DDD (degenerative disc disease), lumbosacral Degeneration of lumbar or lumbosacral intervertebral disc Lumbar stenosis with neurogenic claudication Closed fracture of sacrum, unspecified portion of sacrum, initial encounter (Multi) documented in this encounter [facility] Work Phone: Evaluation note* Diagnosis [...] unspecified type (HCC) Coronary artery disease involving king salmon coronary artery of king salmon heart without angina pectoris Dyslipidemia Other and unspecified hyperlipidemia Atrial fibrillation, unspecified type (HCC)- Primary Primary hypertension Unspecified essential hypertension Coronary artery disease involving king salmon coronary artery of king salmon heart without angina pectoris Dyslipidemia Other and unspecified hyperlipidemia Paroxysmal atrial fibrillation (HCC) Atrial fibrillation Primary hypertension Unspecified essential hypertension Coronary artery disease involving king salmon coronary artery of king salmon heart without angina pectoris Dyslipidemia Other and unspecified hyperlipidemia Paroxysmal atrial fibrillation (HCC)- Primary Atrial fibrillation PAF (paroxysmal atrial fibrillation) (HCC) Atrial fibrillation Primary hypertension Unspecified essential hypertension Coronary artery disease involving king salmon coronary artery of king salmon heart without angina pectoris Dyslipidemia Other and unspecified hyperlipidemia Pre-op testing Unspecified pre-operative examination Sacral insufficiency fracture with delayed healing Primary hypertension Unspecified essential hypertension Paroxysmal atrial fibrillation (HCC) Atrial fibrillation Coronary artery disease involving king salmon coronary artery of king salmon heart without angina pectoris Dyslipidemia Other and unspecified hyperlipidemia Hypothyroidism, unspecified type Gastroesophageal reflux disease, unspecified whether esophagitis present Pre-op examination Paroxysmal atrial fibrillation (HCC)- Primary Atrial fibrillation Primary hypertension Unspecified essential hypertension Coronary artery disease involving king salmon coronary artery of king salmon heart without angina pectoris Dyslipidemia Other and unspecified hyperlipidemia Primary osteoarthritis of left shoulder- Primary Rotator cuff disorder, left Trochanteric bursitis of left hip [facility] Atrial fibrillation with RVR ([facility]) Bleeding from wound Small bowel obstruction (HCC) [...] unspecified type (HCC) Coronary artery disease involving king salmon coronary artery of king salmon heart without angina pectoris Dyslipidemia Other and unspecified hyperlipidemia Atrial fibrillation, unspecified type (HCC)- Primary Primary hypertension Unspecified essential hypertension Coronary artery disease involving king salmon coronary artery of king salmon heart without angina pectoris Dyslipidemia Other and unspecified hyperlipidemia Paroxysmal atrial fibrillation (HCC) Atrial fibrillation Primary hypertension Unspecified essential hypertension Coronary artery disease involving king salmon coronary artery of king salmon heart without angina pectoris Dyslipidemia Other and unspecified hyperlipidemia Paroxysmal atrial fibrillation (HCC)- Primary Atrial fibrillation PAF (paroxysmal atrial fibrillation) (HCC) Atrial fibrillation Primary hypertension Unspecified essential hypertension Coronary artery disease involving king salmon coronary artery of king salmon heart without angina pectoris Dyslipidemia Other and unspecified hyperlipidemia Pre-op testing Unspecified pre-operative examination Sacral insufficiency fracture with delayed healing Primary hypertension Unspecified essential hypertension Paroxysmal atrial fibrillation (HCC) Atrial fibrillation Coronary artery disease involving king salmon coronary artery of king salmon heart without angina pectoris Dyslipidemia Other and unspecified hyperlipidemia Hypothyroidism, unspecified type Gastroesophageal reflux disease, unspecified whether esophagitis present Pre-op examination Paroxysmal atrial fibrillation (HCC)- Primary Atrial fibrillation Primary hypertension Unspecified essential hypertension Coronary artery disease involving king salmon coronary artery of king salmon heart without angina pectoris Dyslipidemia Other and unspecified hyperlipidemia Cervicalgia- Primary Lumbar spondylolysis Lumbosacral spondylosis without myelopathy Cervical radiculopathy Brachial neuritis or radiculitis nos Cervical spondylosis Cervical spondylosis without myelopathy [facility] Atrial fibrillation with RVR [...] unspecified type (HCC) Coronary artery disease involving king salmon coronary artery of king salmon heart without angina pectoris Dyslipidemia Other and unspecified hyperlipidemia Atrial fibrillation, unspecified type (HCC)- Primary Primary hypertension Unspecified essential hypertension Coronary artery disease involving king salmon coronary artery of king salmon heart without angina pectoris Dyslipidemia Other and unspecified hyperlipidemia Paroxysmal atrial fibrillation (HCC) Atrial fibrillation Primary hypertension Unspecified essential hypertension Coronary artery disease involving king salmon coronary artery of king salmon heart without angina pectoris Dyslipidemia Other and unspecified hyperlipidemia Paroxysmal atrial fibrillation (HCC)- Primary Atrial fibrillation PAF (paroxysmal atrial fibrillation) (HCC) Atrial fibrillation Primary hypertension Unspecified essential hypertension Coronary artery disease involving king salmon coronary artery of king salmon heart without angina pectoris Dyslipidemia Other and unspecified hyperlipidemia Pre-op testing Unspecified pre-operative examination Sacral insufficiency fracture with delayed healing Primary hypertension Unspecified essential hypertension Paroxysmal atrial fibrillation (HCC) Atrial fibrillation Coronary artery disease involving king salmon coronary artery of king salmon heart without angina pectoris Dyslipidemia Other and unspecified hyperlipidemia Hypothyroidism, unspecified type Gastroesophageal reflux disease, unspecified whether esophagitis present Pre-op examination Paroxysmal atrial fibrillation (HCC)- Primary Atrial fibrillation Primary hypertension Unspecified essential hypertension Coronary artery disease involving king salmon coronary artery of king salmon heart without angina pectoris Dyslipidemia Other and unspecified hyperlipidemia Cervical radiculopathy- Primary Brachial neuritis or radiculitis nos [facility] Diagnosis Atrial fibrillation with RVR (HCC) [...] unspecified type (HCC) Coronary artery disease involving king salmon coronary artery of king salmon heart without angina pectoris Dyslipidemia Other and unspecified hyperlipidemia Atrial fibrillation, unspecified type (HCC)- Primary Primary hypertension Unspecified essential hypertension Coronary artery disease involving king salmon coronary artery of king salmon heart without angina pectoris Dyslipidemia Other and unspecified hyperlipidemia Paroxysmal atrial fibrillation (HCC) Atrial fibrillation Primary hypertension Unspecified essential hypertension Coronary artery disease involving king salmon coronary artery of king salmon heart without angina pectoris Dyslipidemia Other and unspecified hyperlipidemia Paroxysmal atrial fibrillation (HCC)- Primary Atrial fibrillation PAF (paroxysmal atrial fibrillation) (HCC) Atrial fibrillation Primary hypertension Unspecified essential hypertension Coronary artery disease involving king salmon coronary artery of king salmon heart without angina pectoris Dyslipidemia Other and unspecified hyperlipidemia Pre-op testing Unspecified pre-operative examination Sacral insufficiency fracture with delayed healing Primary hypertension Unspecified essential hypertension Paroxysmal atrial fibrillation (HCC) Atrial fibrillation Coronary artery disease involving king salmon coronary artery of king salmon heart without angina pectoris Dyslipidemia Other and unspecified hyperlipidemia Hypothyroidism, unspecified type Gastroesophageal reflux disease, unspecified whether esophagitis present Pre-op examination Paroxysmal atrial fibrillation (HCC)- Primary Atrial fibrillation Primary hypertension Unspecified essential hypertension Coronary artery disease involving king salmon coronary artery of king salmon heart without angina pectoris Dyslipidemia Other and unspecified hyperlipidemia Cervical radiculopathy- Primary Brachial neuritis or radiculitis nos documented in this encounter [facility] note* Diagnosis Atrial fibrillation with RVR (HCC) [...] unspecified type (HCC) Coronary artery disease involving king salmon coronary artery of king salmon heart without angina pectoris Dyslipidemia Other and unspecified hyperlipidemia Atrial fibrillation, unspecified type (HCC)- Primary Primary hypertension Unspecified essential hypertension Coronary artery disease involving king salmon coronary artery of king salmon heart without angina pectoris Dyslipidemia Other and unspecified hyperlipidemia Paroxysmal atrial fibrillation (HCC) Atrial fibrillation Primary hypertension Unspecified essential hypertension Coronary artery disease involving king salmon coronary artery of king salmon heart without angina pectoris Dyslipidemia Other and unspecified hyperlipidemia Paroxysmal atrial fibrillation (HCC)- Primary Atrial fibrillation PAF (paroxysmal atrial fibrillation) (HCC) Atrial fibrillation Primary hypertension Unspecified essential hypertension Coronary artery disease involving king salmon coronary artery of king salmon heart without angina pectoris Dyslipidemia Other and unspecified hyperlipidemia Pre-op testing Unspecified pre-operative examination Sacral insufficiency fracture with delayed healing Primary hypertension Unspecified essential hypertension Paroxysmal atrial fibrillation (HCC) Atrial fibrillation Coronary artery disease involving king salmon coronary artery of king salmon heart without angina pectoris Dyslipidemia Other and unspecified hyperlipidemia Hypothyroidism, unspecified type Gastroesophageal reflux disease, unspecified whether esophagitis present Pre-op examination Paroxysmal atrial fibrillation (HCC)- Primary Atrial fibrillation Primary hypertension Unspecified essential hypertension Coronary artery disease involving king salmon coronary artery of king salmon heart without angina pectoris Dyslipidemia Other and unspecified hyperlipidemia Paroxysmal atrial fibrillation (HCC)- Primary Atrial fibrillation Primary hypertension Unspecified essential hypertension Coronary artery disease involving king salmon coronary artery of king salmon heart without angina pectoris Dyslipidemia Other and unspecified hyperlipidemia [facility] Routine general medical examination [...] ulcer stage (Multi) documented in this encounter [facility] Work Phone: Evaluation note* Diagnosis [...] ulcer stage (Multi) documented in this encounter [facility] Work Phone: Evaluation note* Diagnosis Routine general medical examination at health care facility- Primary Routine general medical examination at a [facility] Lumbar stenosis with neurogenic claudication Controlled drug [...] ulcer stage (Multi) documented in this encounter [facility] Work Phone: Evaluation note* Diagnosis Routine general medical examination at [facility] facility- Primary Routine general medical examination at a [facility] Lumbar stenosis with neurogenic claudication Controlled [...] stage (Multi)- Primary documented in this encounter [facility] Work Phone: Evaluation note* Diagnosis Routine general medical examination at health care facility- Primary Routine general medical examination at a [facility] Lumbar stenosis with neurogenic claudication Controlled [...] ulcer stage (Multi) documented in this encounter [facility] Work Phone: Evaluation note* Diagnosis Routine general medical examination at health care facility- Primary Routine general medical examination at a [facility] Lumbar stenosis with neurogenic claudication Controlled [...] facility Routine general medical examination at a [facility] care facility Skin ulcer, unspecified ulcer stage (Multi) Closed fracture of sacrum, unspecified portion of sacrum, initial encounter (Multi) AF (paroxysmal atrial fibrillation) (Multi) Atrial fibrillation Mixed hyperlipidemia Acquired hypothyroidism Unspecified hypothyroidism documented in this encounter [facility] Work Phone: Evaluation note* Diagnosis Routine general medical examination at health care facility- Primary Routine general medical examination at a [facility] care facility Lumbar stenosis with neurogenic claudication [...] stage (Multi)- Primary documented in this encounter [facility] Work Phone: Evaluation note* Diagnosis Routine general medical examination at [facility] care facility- Primary Routine general medical examination at a [facility] facility Lumbar stenosis with neurogenic claudication Controlled [...] left upper quadrant documented in this encounter [facility] Work Phone: Evaluation note* Diagnosis Routine general medical examination at health care facility- Primary Routine general medical examination at a [facility] care facility Lumbar stenosis with neurogenic claudication [...] stage (Multi)- Primary documented in this encounter [facility] Work Phone: Evaluation note* Diagnosis [...] left upper quadrant documented in this encounter [facility] Work Phone: Evaluation note* Diagnosis Routine general medical examination at [facility] care facility- Primary Routine general medical examination [...] myalgia and myositis documented in this encounter [facility] Work Phone: Evaluation note* Diagnosis [...] unspecified type (HCC) Coronary artery disease involving king salmon coronary artery of king salmon heart without angina pectoris Dyslipidemia Other and unspecified hyperlipidemia Atrial fibrillation, unspecified type (HCC)- Primary Primary hypertension Unspecified essential hypertension Coronary artery disease involving king salmon coronary artery of king salmon heart without angina pectoris Dyslipidemia Other and unspecified hyperlipidemia Paroxysmal atrial fibrillation (HCC) Atrial fibrillation Primary hypertension Unspecified essential hypertension Coronary artery disease involving king salmon coronary artery of king salmon heart without angina pectoris Dyslipidemia Other and unspecified hyperlipidemia Paroxysmal atrial fibrillation (HCC)- Primary Atrial fibrillation PAF (paroxysmal atrial fibrillation) (HCC) Atrial fibrillation Primary hypertension Unspecified essential hypertension Coronary artery disease involving king salmon coronary artery of king salmon heart without angina pectoris Dyslipidemia Other and unspecified hyperlipidemia Pre-op testing Unspecified pre-operative examination Sacral insufficiency fracture with delayed healing Primary hypertension Unspecified essential hypertension Paroxysmal atrial fibrillation (HCC) Atrial fibrillation Coronary artery disease involving king salmon coronary artery of king salmon heart without angina pectoris Dyslipidemia Other and unspecified hyperlipidemia Hypothyroidism, unspecified type Gastroesophageal reflux disease, unspecified whether esophagitis present Pre-op examination Paroxysmal atrial fibrillation (HCC)- Primary Atrial fibrillation Primary hypertension Unspecified essential hypertension Coronary artery disease involving king salmon coronary artery of king salmon heart without angina pectoris Dyslipidemia Other and unspecified hyperlipidemia Paroxysmal atrial fibrillation (HCC)- Primary Atrial fibrillation Primary hypertension Unspecified essential hypertension Coronary artery disease involving king salmon coronary artery of king salmon heart without angina pectoris Dyslipidemia Other and unspecified hyperlipidemia Coronary artery disease involving king salmon coronary artery of king salmon heart without angina pectoris- Primary Primary hypertension Unspecified essential hypertension Paroxysmal atrial fibrillation (HCC) Atrial fibrillation Dyslipidemia Other and unspecified hyperlipidemia Preop cardiovascular exam Pre-operative cardiovascular examination [facility] Diagnosis Routine general medical examination at [...] (Multi) Atrial fibrillation documented in this encounter [facility] Work Phone: History of Present [...] no breakthru continues on anticoagulation. * cirrhosis [facility] and [facility] 2019 rev * tramadol 2 a day average for pain in low back. forms reviewed. I have personally reviewed the OARRSreport for the above patient. This report is scanned into the electronic medical record. I have considered the risks of abuse, dependence, addiction, and diversion. I believe that it is clinically appropriate for the above patient to be prescribed this medication. 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 [facility] Work Phone: History of Present illness Narrative* [...] , voice a little raspy. will refer guerrero. not a lot of gerd, on dexilant [...] Atrial fibrillation- no breakthru, continues on anticoagulation. [facility] Work Phone: History of Present illness Narrative* [...] hapbits. has cirrhosisi and hx of divertic [facility] Work Phone: History of Present illness Narrative* [...] cont on pradaxa. is on propafenone. sees jony in january. Encouraged to report breakthrough episode * pain meds for low back, and asks to refer to gayatri at [facility]. I have personally reviewed the OARRS report [...] cancer HCC closed for a year stable [facility] Work Phone: History of Present illness Narrative* Ms. MCPHERSON presents with signs and symptoms consistent with [...] of motion/joint mobility, strength and transfers. [facility] Work [facility]: History of Present illness NarrativePt confirmed via and Full Name. Pt returned this date for first visit since eval due to having to cancel some sessions due to pain in cervical spine/shoulder as well as significant soreness from eval. Spent time reviewing pt edu on symptom management, activity modifications, and plan to ease into HEP given at [facility]. Spent most time on manual therapy this date with open hand/broad pressure for b tanisha tolerance. Pt required Mod-Max A with sit<>supine transfers, but improved TrA activation with supine<>sit after manual therapy. Pt tolerate nustep and two hooklying exercises well this date but deferred trialing remaining two seated exercises from HEP due to concern with flaring up pain again. [facility] Work Phone: History of Present illness NarrativePatient [...] ex's. Low back pain decreased post treatment. [facility] Work Phone: History of Present illness NarrativePatient identified by name & . Patient wore a mask during treatment d/t Covid-19 precautions. Pt reassessed this date by supervising PT with improvements noted in MMT of BLEs as well as improved TUG and 5 rep Sit<>stand test scores this date compared to [facility]. Pt deferred performing any ther-ex or receiving and manual techniques this date and just wanted to perform re-assessment and discuss updates to HEP with new HO given. Discussed continued skilled PT to progress with improving functional posture and tolerance to prolonged standing/ambulation, as well as progression of balanceacivities. [facility] Work Phone: Reason for referral (narrative)* Consultation (Routine) - Authorized Specialty Diagnoses / Procedures Referred By Contac t Referred To Contact Primary Care Diagnoses AF (paroxysmal atrial fibrillation) ([facility]) Gastrointestinal hemorrhage, unspecified gastrointestinal hemorrhage type DDD (degenerative disc disease), lumbosacral Lumbar stenosis with neurogenic claudication Mixed hyperlipidemia Procedures Follow Up In Primary Care Sancho Woodruff MD [address] [place] [address] Referral ID Status Reason Start Date Expiration Date V isits Requested Visits Authorized [id number] Authorized 04/05/2023 10/02/2023 1 1 [facility] Work Phone: reason for referral [...] Up [place] [address] [place], [place] [id number] Referral ID Status Reason Start Date Expiration Date V isits Requested Visits Authorized [id number] Authorized 07/07/2023 01/03/2024 1 1 [facility] Work Phone: reason for referral [...] Primary Care [place] [address] [place] [address] Referral ID Status Reason Start Date Expiration Date V isits Requested Visits Authorized [id number] Authorized 10/13/2023 10/12/2024 1 1 [facility] Work Phone: reason for referral (narrative)* Consultation (Routine) - Authorized Specialty Diagnoses / Procedures Referred By Contac t Referred To Contact Primary Care Diagnoses AF (paroxysmal atrial fibrillation) ([facility]) DDD (degenerative disc disease), lumbosacral Lumbar stenosis with neurogenic claudication Procedures Follow Up In Primary Care Sancho Woodruff MD [facility] [place] [id number] Referral ID Status Reason Start Date Expiration Date V isits Requested Visits Authorized [id number] Authorized 01/16/2024 01/15/2025 1 1 [facility] Work Phone: Reason for referral (narrative)No reason for [facility]: Reason for visit Narrative* Initial Evaluation . Lumbosacral pain, deconditioned and weakness. * Referred by: Sancho Woodruff [facility] Work Phone: Reason for visit Narrative* Imaging (Routine) - Authorized Specialty Diagnoses / Procedures Referred By Contac t Referred To Contact Radiology Diagnoses Skin ulcer, unspecified ulcer stage (Multi) Procedures XR pelvis 1-2 views Dariela Garza MD [address] [address] Phone: tel: fax: Referral ID Status Reason Start Date Expiration Date Visits Requested Visits Authorized [id number] Authorized Perform Procedure 01/18/2025 01/18/2026 1 1 [facility] Work Phone: Remzow for visit Narrative* Imaging (Routine) - Authorized Specialty Diagnoses / Procedures Referred By Contac t Referred To Contact Radiology Diagnoses Skin ulcer, unspecified ulcer stage (Multi) Procedures CT pelvis w IV contrast Dariela Garza MD [address] [employer] [address] [place] [address] Phone: tel: fax: Referral ID Status Reason Start Date Expiration Date Visits Requested Visits Authorized [id number] Authorized Perform Procedure 01/22/2025 01/22/2026 1 1 [facility] Work Phone: Reason for visit Narrative* Imaging (Routine) - Authorized Specialty Diagnoses / Procedures Referred By Contac t Referred To Contact Radiology Diagnoses LUQ pain Procedures CT abdomen pelvis w IV contrast Sancho Woodruff MD [address] [place] [phone] Phone: tel: fax: Referral ID Status Reason Start Date Expiration Date Visits Requested Visits Authorized [id number] Authorized Perform Procedure 04/03/2025 04/03/2026 1 1 [facility] Work Phone: Assessments Diagnosis Bursitis/tendonitis, [...] unspecified type (HCC) Coronary artery disease involving king salmon coronary artery of king salmon heart without angina pectoris Dyslipidemia Other and [...] FoundDocuments on File Type Date Recorded Patient Tibco Developer Expl anation Advance Directives and Living Will Latest Code Status on File Code Status Date Activated Date Inactivated Comments Full Code - Unverified 07/27/2016 6:38 PM 08/11/2016 5: 31 PM Documents on File Type Date Recorded Patient Tibco Developer Expl anation Advance Directives and Livin g Will 08/01/2019 12:56 PM Documents on File Type Date Recorded Patient Tibco Developer Expl anation Advance Directives and Livin g Will 08/01/2019 12:56 PM Latest Code Status on File Code Status Date Activated Date Inactivated Comments Full Code - Unverified 07/27/2016 6:38 PM 08/11/2016 5: 31 PM Documents on File Type Date Recorded Patient Tibco Developer Expl anation Advance Directives and Livin g Will 10/08/2019 12:56 PM Documents on File Type Date Recorded Patient Tibco Developer Expl anation Advance Directives and Livin g Will 11/06/2019 12:36 PM Documents on File Type Date Recorded Patient Tibco Developer Expl anation Advance Directives and Livin g Will 11/06/2019 12:36 PM Documents on File Type Date Recorded Patient Tibco Developer Expl anation Advance Directives and Livin g Will 11/06/2019 12:36 PM Advance Directives and Livin g Will 11/20/2019 12:00 AM Documents on File Type Date Recorded Patient Tibco Developer Expl anation Advance Directives and Livin g Will 11/06/2019 12:36 PM Advance Directives and Livin g Will 11/29/2019 11:40 AM Latest Code Status on File Code Status Date Activated Date Inactivated Comments Full Code 11/29/2019 7:32 PM Full Code - Unverified 07/27/2016 6:38 PM 08/11/2016 5: 31 PM Documents on File Type Date Recorded Patient Tibco Developer Expl anation Advance Directives and Livin g Will 11/06/2019 12:36 PM Advance Directives and Livin g Will 02/12/2020 7:35 AM Documents on File Type Date Recorded Patient Tibco Developer Expl anation Advance Directives and Livin g Will 11/06/2019 12:36 PM Advance Directives and Livin g Will 02/12/2020 7:35 AM Latest Code Status on File Code Status Date Activated Date Inactivated Comments Full Code 11/29/2019 7:32 PM Full Code - Unverified 07/27/2016 6:38 PM 08/11/2016 5: 31 PM Documents on File Type Date Recorded Patient Tibco Developer Expl anation Advance Directives and Livin g Will 11/06/2019 12:36 PM Advance Directives and Livin g Will 11/29/2019 11:40 AM Documents on File Type Date Recorded Patient Tibco Developer Expl anation Advance Directives and Livin g Will 10/08/2019 12:56 PM Documents on File Type Date Recorded Patient Tibco Developer Expl anation Advance Directives and Livin g [...] basis. documented in this encounter* Debi Lord, SECURITY ANALYST - 08/03/2019 11:30 AM EDT [facility] OUTPATIENT REHABILITATION DAILY TREATMENT NOTE Today's Date 08/03/2019 Patient Name: Alma Mcpherson Date of : 1940 Current Visit #: [...] LATEX ALLERGY Notes Debi 11:28-12:03 Therapeutic Exercise (43239) Intervention SH isometerics (A) Parameters supine SH ABCs (A) Intervention Scapular retractions x20 Parameters SH Rows/ext (A) Intervention UEB 4' lv 1 Parameters cane press ups x20 Manual Therapy (84639) Intervention STM BLE bicep tendon and UT 10' Parameters PROM x10 each plane PT Treatment Times Therex Total Time 20 Manual Therapy Total Time 15 Direct Treatment Time 35 Total Treatment Time 35 Progress towards goals as expected. Plan for Next Visit: Treatment Visit with focus on ROM and strength Debi Lord PTA STATE LICENSE, [id number] documented in this encounter* Sadaf Cardenas, PT - 08/28/2019 9:15 AM EST [facility] OUTPATIENT REHABILITATION DAILY TREATMENT NOTE Today's Date 08/28/2019 Patient Name: Alma Mcpherson Date of : 1940 Current Visit #: [...] Treatments: Physical Therapy Exercise Log - 08/28/19 0925 OTHER Precautions/Contraindications LATEX ALLERGY Notes 1:45- 2:25 04/20 Vitals Elisha Therapeutic Exercise (31793) Parameters supine SH ABCs BLE Intervention Scapular retractions x20 Intervention UEB 6' lv 1 Parameters Standing SH ER 2x10 GTT Intervention Standing SH Ext 2x10 GTT Parameters Standing SH IR 2x10 B Manual Therapy (10054) Intervention STM BLE bicep tendon, UT, and [...] and strength. Sadaf Cardenas PT State License, [id number] documented in this encounter* Debi Lord PTA - 09/11/2019 9:15 AM EST [facility] OUTPATIENT REHABILITATION DAILY TREATMENT NOTE Today's Date 09/11/2019 Patient Name: Alma Mcpherson Date of : 1940 Current Visit #: [...] OTHER Precautions/Contraindications LATEX ALLERGY Notes 9:15-10:00 06/21 Wizewaldo Carrera Therapeutic Exercise (82149) Parameters supine SH ABCs BLE Intervention Scapular retractions x20 Parameters Supine SH flexion L 1#x10 R D/C Intervention UEB 6' lv 1 Parameters Standing SH ER x25 GTT Intervention Standing SH Ext x25 GTT Parameters Standing SH IR x25 B Intervention Standing SH row x25 GTT B Manual Therapy (22422) Intervention STM BLE bicep tendon, UT, and [...] on ROM Debi Lord PTA STATE LICENSE, [id number] documented in this encounter* Alexandro Street, SECURITY ANALYST - 09/17/2019 1:45 PM EST [facility] OUTPATIENT REHABILITATION DAILY TREATMENT NOTE Today's Date 09/17/2019 Patient Name: Alma Mcpherson Date of : 1940 Current Visit #: [...] 09/17/19 1350 OTHER Precautions/Contraindications LATEX ALLERGY Notes 8722-2051 07/21 Therapeutic Exercise (79709) Parameters supine SH ABCs BLE Intervention Scapular retractions x20 Parameters Supine SH flexion L 1#x10 R D/C Intervention UEB 6' lv 1 Parameters Standing SH ER x25 SURESH Intervention Standing SH Ext x25 SURESH Parameters Standing SH IR x25 B Intervention Standing SH row x25 SURESH B Manual Therapy (53909) Intervention STM BLE bicep tendon, UT, and [...] increase strength Alexandro Street PTA STATE LICENSE, [id number] documented in this encounter* Alexandro Street PTA - 09/19/2019 3:15 PM EST [facility] OUTPATIENT REHABILITATION DAILY TREATMENT NOTE Today's Date 09/19/2019 Patient Name: Alma Mcpherson Date of : 1940 Current Visit #: [...] 1515 OTHER Precautions/Contraindications LATEX ALLERGY Notes 08/21 [id number] Therapeutic Exercise (64164) Parameters supine SH ABCs BLE Intervention Scapular retractions x20 Parameters Supine SH flexion L 1#x10 R D/C Intervention UEB 6' lv 1 Parameters Standing SH ER x25 SURESH Intervention Standing SH Ext x25 SURESH Parameters Standing SH IR x25 B Intervention Standing SH row x25 SURESH B Manual Therapy (72189) Intervention STM BLE bicep tendon, UT, and [...] increase function Alexandro Street PTA STATE LICENSE, [id number] documented in this encounter* Sadaf Cardenas, PT - 09/26/2019 11:30 AM EST [facility] OUTPATIENT REHABILITATION DAILY TREATMENT NOTE Today's Date 09/26/2019 Patient Name: Alma Mcpherson Date of : 1940 Current Visit #: [...] LATEX ALLERGY Notes 09/20 11:30-12:10 Therapeutic Exercise (06329) Intervention PT re-assessment and objective mesurement 12' Parameters Standing SH ER x25 SURESH Intervention Standing SH Ext x25 SURESH Parameters Standing SH IR x25 B Intervention Standing SH row x25 SURESH B Manual Therapy (96496) Intervention STM BLE bicep tendon, UT, and [...] Visit: Discharge Sadaf Cardenas PT State License, [id number] documented in this encounter* Wang Borges MD - 11/14/2019 12:08 PM EST Interventional Cardiology Clinic Follow-up [facility] 11/14/2019 Wang Borges MD [address] [place] [address] Patient: Alma Mcpherson Date of : 1940 (78 y.o.) PCP: [...] surgery) Subjective History of Present Illness: Alma Mcpherson is a 78 y.o. female who comes [...] Final Result by Interface, Lab Results In [facility] [email or web address] (11/07/2019 0802) Echocardiogram complete Final Result by [...] TRIG 76 08/09/2016 Serum creatinine: 0.66 mg/dL 01/28/20 1240 Estimated creatinine clearance: 53.1 mL/min * [...] CNP Authorized by: Christine Voss CNP CPT 26142 - Large Joint Arthrocentesis: Consent given by: [...] ADHESION ; Surgeon: Smooth Sarabia MD; [place] [facility] [place]; Service: FOOT FUSION FOOT SURGERY [...] file Gets together: Not on file Attends [employer] service: Not on file Active member of [...] Wound is healed. No signs of infection. Tyson are removed. No DVT signs in the [...] on: 01/14/2020 2:55 PM by: DADA HATHAWAY [[id number]] documented in this encounter* Christine Voss CNP - 05/22/2020 5:16 PM EDT Associated Order(s): LG Jt Injection/Arthrocentesis: L glenohumeral Post-Procedure Diagnose(s): Rotator cuff disorder, left LG Jt Injection/Arthrocentesis: L glenohumeral Performed by: Christine Voss CNP Authorized by: Christine Voss CNP CPT 37220 - Large Joint Arthrocentesis: Consent given by: [...] 05/22/2020 5:11 PM EDT [facility] [address] [facility] [address] [facility] [id number] Chief Complaint Patient presents with Injections Alma Mcpherson returns to the office today for an [...] ADHESION ; Surgeon: Smooth Sarabia MD; [place] [facility] [place]; Service: FOOT FUSION FOOT SURGERY [...] file Gets together: Not on file Attends [employer]aritan service: Not on file Active member of [...] Interventional Cardiology Clinic Follow-up [facility] 11/19/2020 Wang Borges MD [address] [place], [place] [id number] Patient: Alma Mcpherson Date of : 1940 (79 y.o.) PCP: Sancho Woodruff MD Assessment & Plan No problem-specific Assessment & Plan notes found for this encounter. Follow-up: Return in about 6 months (around 05/19/2021) for Physician Visit in [place]. Chief Complaint: Annual Exam (no complaints. meds reviewed- PCP manages refills ) Subjective History of Present Illness: Alma Mcpherson is a 79 y.o. female Objective Imaging: [...] on: 11/28/2020 6:39 PM by: DADA HATHAWAY [[id number]] documented in this encounter* Xochilt Lyon, SECURITY ANALYST - 08/09/2019 10:00 AM EDT [facility] OUTPATIENT REHABILITATION DAILY TREATMENT NOTE Today's Date 08/09/2019 Patient Name: Alma Mcpherson Date of : 1940 Current Visit #: [...] 08/09/19 1001 OTHER Precautions/Contraindications LATEX ALLERGY Notes [id number] Therapeutic Exercise (51886) Parameters supine SH ABCs, A-W Intervention Scapular retractions x20 Intervention UEB 5' lv 1 Parameters cane press ups x20 Manual Therapy (68474) Intervention STM BLE bicep tendon and UT [...] gentle strengthening Xochilt Lyon PTA STATE LICENSE, [id number] documented in this encounter* Wang Borges MD - 11/19/2020 10:52 AM EST Interventional Cardiology Clinic Follow-up [facility] 11/19/2020 Wang Borges MD [address] [place] [address] Patient: Alma Mcpherson Date of : 1940 (79 y.o.) PCP: [...] daily, no changes Coronary artery disease involving king salmon coronary artery of king salmon heart without angina pectoris Coronary artery disease [...] months (around 05/19/2021) for Physician Visit in [place]. Chief Complaint: Annual Exam (no complaints. meds reviewed- PCP manages refills ) Subjective History of Present Illness: Alma Mcpherson is a 79 y.o. female who comes [...] Interventional Cardiology Clinic Follow-up [facility] 11/19/2020 Wang Borges MD [address] [place], [place] [id number] Patient: Alma Mcpherson Date of : 1940 (79 y.o.) PCP: Sancho Woodruff MD Assessment & Plan No problem-specific Assessment & Plan notes found for this encounter. Follow-up: Return in about 6 months (around 05/19/2021) for Physician Visit in [place]. Chief Complaint: Annual Exam (no complaints. meds reviewed- PCP manages refills ) Subjective History of Present Illness: Alma Mcpherson is a 79 y.o. female who comes [...] EST Error documented in this encounter* Elisha Milton, SECURITY ANALYST - 08/23/2019 2:30 PM EST [facility] OUTPATIENT REHABILITATION DAILY TREATMENT NOTE Today's Date 08/23/2019 Patient Name: Alma Mcpherson Date of : 1940 Current Visit #: [...] Notes 1:45- 2:25 Vitals Elisha Therapeutic Exercise (95230) Parameters supine SH ABCs BLE Intervention Scapular retractions x20 Intervention UEB 6' lv 1 Parameters cane press ups x20 Intervention cane flexion x20 Manual Therapy (04688) Intervention STM BLE bicep tendon and UT [...] shoulder strengthening Elisha Milton PTA STATE LICENSE, [id number] documented in this encounter* Sadaf Cardenas, PT - 09/04/2019 9:15 AM EST [facility] OUTPATIENT REHABILITATION DAILY TREATMENT NOTE Today's Date 09/04/2019 Patient Name: Alma Mcpherson Date of : 1940 Current Visit #: [...] Notes 9:15-10:00 05/21 Dejon Talavera Therapeutic Exercise (73791) Parameters supine SH ABCs BLE Intervention Scapular retractions x20 Parameters Supine SH flexion L 1#x10 R D/C Intervention UEB 6' lv 1 Parameters Standing SH ER x25 GTT Intervention Standing SH Ext x25 GTT Parameters Standing SH IR x25 B Intervention Standing SH row x25 GTT B Manual Therapy (02637) Intervention STM BLE bicep tendon, UT, and [...] and stabilization. Sadaf Cardenas PT State License, [id number] documented in this encounter* Dada Hathaway MD [...] Lord PTA - 08/07/2019 8:30 AM EDT [facility] OUTPATIENT REHABILITATION DAILY TREATMENT NOTE Today's Date 08/07/2019 Patient Name: Alma Mcpherson Date of : 1940 Current Visit #: [...] LATEX ALLERGY Notes Debi 8:30-9:05 Therapeutic Exercise (47545) Intervention SH isometerics (A) Parameters supine SH ABCs (A) Intervention Scapular retractions x20 Parameters SH Rows/ext YTT seated Intervention UEB 5' lv 1 Parameters cane press ups x20 Manual Therapy (37488) Intervention STM BLE bicep tendon and UT 10' Parameters PROM x10 each plane PT Treatment Times Therex Total Time 20 Manual Therapy Total Time 15 Direct Treatment Time 35 Total Treatment Time 35 Progress towards goals as expected. 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 Sadaf Cardenas PT State License, [id number] documented in this encounter* Dada Hathaway MD - 10/22/2019 11:46 AM EST Dictation on: 10/22/2019 11:47 AM by: DADA HATHAWAY [[id number]] documented in this encounter* Debi Lord PTA - 08/14/2019 1:45 PM EST [facility] OUTPATIENT REHABILITATION DAILY TREATMENT NOTE Today's Date 08/14/2019 Patient Name: Alma Mcpherson Date of : 1940 Current Visit #: [...] LATEX ALLERGY Notes 1:45- 2:25 Therapeutic Exercise (89423) Parameters supine SH ABCs BLE Intervention Scapular retractions x20 Intervention UEB 6' lv 1 Parameters cane press ups x20 Intervention cane flexion x20 Manual Therapy (24200) Intervention STM BLE bicep tendon and UT 10' Parameters PROM x10 each plane PT Treatment Times Therex Total Time 20 Manual Therapy Total Time 20 Direct Treatment Time 40 Total Treatment Time 40 Progress towards goals as expected. Plan for Next Visit: Treatment Visit with focus on ROM Debi Lord PTA STATE LICENSE, [id number] documented in this encounter Reason for Referral Status Reason Specialty Diagnoses / Procedures Referred By Contact Referred To Contact Pending Review Radiology Diagnoses Breast cancer screening by mammogram Procedures Mammography Screening Bilateral Stencel, Sancho Casey MD [address] [place], [place] [id number] Status Reason Specialty Diagnoses / Procedures Re ferred By Contact Referred To Contact Authorized Radiology Diagnoses Preop cardiovascular exam Atrial fibrillation, unspecified type (HCC) Essential hypertension Procedures NM Myocardial Perfusion Multiple SPECT Wang Borges MD [address] [address] Status Reason Specialty Diagnoses / Procedures Re ferred By Contact Referred To Contact Closed Radiology Diagnoses Preop cardiovascular exam Atrial fibrillation, unspecified type (HCC) Essential hypertension Procedures NM Myocardial Perfusion Multiple SPECT Wang Borges MD [address] [address] Status Reason Specialty Diagnoses / Procedures Referre d By Contact Referred To Contact Closed Radiology Diagnoses Atrial fibrillation, unspecified type (HCC) Procedures CT CCTA Heart With And Without Contrast Wang Borges MD [address] [address] Status Reason Specialty Diagnoses / Procedures Referred By Contact Referred To Contact Authorized Cardiology Diagnoses Atrial fibrillation, unspecified type (HCC) Procedures ECG 12 Lead Wang Borges MD [address] [address] Status Reason Specialty Diagnoses / Procedures Referred By Contact Referred To Contact Pending Review Specialty Services Required/Patie nt's Best Interest Gastroenterology Diagnoses 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) Wang Borges MD [address] [facility] [address] [place] [address] Franklin Valles MD [facility] [place] [address] Specialty Diagnoses / Procedures Referred By Contac t Referred To Contact Cardiology Diagnoses Atrial fibrillation, unspecified type (HCC) Procedures ECG 12 lead Wang Borges MD [address] [facility] [address] [place] [address] Referral ID Status Reason Start Date Expiration Date Visits Re quested Visits Authorized [id number] Closed 03/09/2022 03/09/2023 1 1 Specialty Diagnoses / Procedures Referred By Contac t Referred To Contact Pain Management Diagnoses DDD (degenerative disc disease), lumbar Christine Voss, REGIONAL PROGRAM MANAGER [address] [place] [address] Referral ID Status Reason Start Date Expiration Date Visits Requested Visits Authorized [id number] Authorized Specialty Services Required/Pat ient's Best Interest 2022 2023 1 1 Specialty Diagnoses / Procedures Referred By Contac t Referred To Contact Neurosurgery Diagnoses Lumbar neuritis DDD (degenerative disc disease), lumbosacral Stencel, Sancho Casey MD [address] [place], [place] [id number] Bridger Monique MD [facility] [address] [address] Referral ID Status Reason Start Date Expiration Date V isits Requested Visits Authorized [id number] Authorized 02/14/2023 02/14/2024 1 1 Specialty Diagnoses / Procedures Referred By Contac t Referred To Contact Cardiology Diagnoses Paroxysmal atrial fibrillation (HCC) Procedures ECG 12 lead Wang Borges MD [address] [facility] [address] [place] [address] Referral ID Status Reason Start Date Expiration Date V isits Requested Visits Authorized [id number] Authorized 04/11/2023 04/10/2024 1 1 Specialty Diagnoses / Procedures Referred By Contac t Referred To Contact Pain Medicine Diagnoses Cervicalgia Green, Jose A Bella, REGIONAL PROGRAM MANAGER [address] [place] [address] Jaylan Moscoso DO [address] [place] [address] Referral ID Status Reason Start Date Expiration Date Visits Requested Visits Authorized [id number] Authorized Patient Preference 12/21/2023 12/20/2024 1 1 Specialty Diagnoses / Procedures Referred By Contac t Referred To Contact Radiology Diagnoses Cervical radiculopathy Procedures MR Cervical Spine Without Contrast Jaylan Moscoso, [address] [place] [address] Referral ID Status Reason Start Date Expiration Date V isits Requested Visits Authorized [id number] New Request 02/29/2024 02/28/2025 1 1 Specialty Diagnoses / Procedures Referred By Contac t Referred To Contact Radiology Diagnoses Acute pain of left knee Procedures XR knee left 4+ views Sancho Woodruff MD [address] [place] [address] Referral ID Status Reason Start Date Expiration Date Visits Requested Visits Authorized [id number] Authorized Perform Procedure 03/12/2024 03/12/2025 1 1 Specialty Diagnoses / Procedures Referred By Contac t Referred To Contact Diagnoses DDD (degenerative disc disease), lumbosacral Lumbar stenosis with neurogenic claudication Sancho Woodruff MD [address] [place] [address] Referral ID Status Reason Start Date Expiration Date V isits Requested Visits Authorized [id number] Authorized 03/17/2024 04/16/2025 1 1 Specialty Diagnoses / Procedures Referred By Contac t Referred To Contact Primary Care Diagnoses DDD (degenerative disc disease), lumbosacral Lumbar stenosis with neurogenic claudication Closed fracture of sacrum, unspecified portion of sacrum, initial encounter (Multi) Procedures Follow Up In Primary Care - Established Sancho Woodruff MD [address] [place] [address] Referral ID Status Reason Start Date Expiration Date V isits Requested Visits Authorized [id number] Authorized 04/16/2024 04/16/2025 1 1 Instructions Name Dates Details Instructions not documented Name Dates Details Instructions not documented Name Dates Details Instructions not documented Discharge Instructions * Attachments The following attachments cannot be sent through Care Everywhere. * Shoulder Replacement Surgery: Post-op (Azeri) documented in this encounter* Instructions* Cara Adrian [...] 2: 00pm Hx of hysterectomy, total May 27, 2 025 2:00pm Hx of small bowel obstruction May 2:00pm Hx of tonsillectomy May 27, 2025 2: 00pm Hx of total shoulder replacement May 27, 2025 2:00pm MATTHEW (nonalcoholic steatohepatitis) Augu 2024 2:00pm Sacral decubitus ulcer, stage III [...] 2024 2:00pm History of diverticulitis May 27 025 2:00pm History of esophagogastroduodenoscopy (E GD) May 27, 2025 2:00pm History of hiatal hernia May 27 2:00pm History of IBS May 27, 2025 2: 00pm History of laparoscopic cholecystectomy May 27, 2025 2:00pm Hx of appendectomy May 27, 2025 2: 00pm [facility] Hx of colonoscopy May 27, 2025 2: 00pm Hx of hysterectomy, total May 27 025 2:00pm Hx of small bowel obstruction May 2:00pm Hx of tonsillectomy May 27, 2025 2: 00pm Hx of total shoulder replacement May 27, 2025 2:00pm MATTHEW (nonalcoholic steatohepatitis) Augu 2024 2:00pm Sacral decubitus ulcer, stage III May 27, 2025 2:00pm Sacral decubitus ulcer, stage III Septem 2024 9:45am Additional Source Comments INFORMATION SOURCE (unrecogn ized section and content) DATE CREATED AUTHOR 04/25/2018 [facility] DATE CREATED AUTHOR AUTHOR'S ORGANIZ ATION 07/11/2019 [facility] DATE CREATED AUTHOR AUTHOR'S ORGANIZ ATION 10/08/2019 [facility] DATE CREATED AUTHOR AUTHOR'S ORGANIZ ATION 03/28/2023 [employer] DATE CREATED AUTHOR AUTHOR'S ORGANIZ ATION 03/29/2023 [facility] DATE CREATED AUTHOR AUTHOR'S ORGANIZ ATION 06/16/2023 [facility] DATE CREATED AUTHOR AUTHOR'S ORGANIZ ATION 08/23/2023 [facility] DATE CREATED AUTHOR AUTHOR'S ORGANIZ ATION 08/22/2024 [facility] DATE CREATED AUTHOR AUTHOR'S ORGANIZ ATION 11/22/2024 [facility] DATE CREATED AUTHOR AUTHOR'S ORGANIZ ATION 06/21/2025 [facility] DATE CREATED AUTHOR AUTHOR'S ORGANIZ ATION 08/05/2025 [facility] DATE CREATED AUTHOR AUTHOR'S ORGANIZ ATION 08/05/2025 [facility] DATE CREATED AUTHOR AUTHOR'S ORGANIZ ATION 08/08/2025 [facility] DATE CREATED AUTHOR AUTHOR'S ORGANIZ ATION 08/17/2025 [facility] Reason for Visit (unrecogniz ed section and content) Reason Comments Physical Therapy Rotator cuff disorde r, B Status Reason Specialty Diagnoses / Procedures Referred By Contact Referred To Contact Authorized Specialty Services Required/Cielo ent's Best Interest Physical Therapy / Rehabilitation Diagnoses Rotator cuff disorder, left Rotator cuff disorder, right Dada Hathaway MD [address] [place] [address] [address] Reason Comments Follow-up Reason Comments Pain Follow-up Reason Comments Physical Therapy Status Reason Specialty Diagnoses / Procedures Referred By Contact Referred To Contact Authorized Specialty Services Required/Cielo ent's Best Interest Physical Therapy / Rehabilitation Diagnoses Rotator cuff disorder, left Rotator cuff disorder, right Dada Hathaway MD [address] [place] [address] [address] Status Reason Specialty Diagnoses / Procedures Referred By Contact Referred To Contact Pending Review Radiology Diagnoses Breast cancer screening by mammogram Procedures Mammography Screening Bilateral Stencel, Sancho Casey MD [address] [place] [address] Reason Comments Pre-op Exam Shoulder surgery Status Reason Specialty Diagnoses / Procedures Referred By Contact Referred To Contact Closed Specialty Services Required/Patient 's Best Interest Cardiology Diagnoses Rotator cuff disorder, right Dada Hathaway MD [address] [place] [address] Haroon Quintanilla MD [address] [place] [address] Status Reason Specialty Diagnoses / Procedures Re ferred By Contact Referred To Contact Closed Radiology Diagnoses Preop cardiovascular exam Atrial fibrillation, unspecified type (HCC) Essential hypertension Procedures NM Myocardial Perfusion Multiple SPECT Wang Borges MD [address] [place] [address] Status Reason Specialty Diagnoses / Procedures Referre d By Contact Referred To Contact Diagnoses Rotator cuff disorder, right Rotator cuff disorder, right [M67.911] Procedures HI RECONSTR TOTAL SHOULDER IMPLANT Reverse right total shoulder replacement [[id number]] Dada Hathaway MD [address] [place] [address] Status Reason Specialty Diagnoses / Procedures Referre d By Contact Referred To Contact Closed Radiology Diagnoses Atrial fibrillation, unspecified type (HCC) Procedures CT CCTA Heart With And Without Contrast Wang Borges MD [address] [facility] [address] [place] [address] Reason Comments Pain Reason Comments Follow-up Suture / Staple Removal Wound Check Reason Comments Injections Reason Comments Annual Exam no complaints. meds reviewed- PCP manages refills Reason Comments Follow-up Pain Reason Comments Calluses right heel callus Reason Onset Date Comments Medication Refill 12/09/2021 Atorvastatin Specialty Diagnoses / Procedures Referred By Contac t Referred To Contact Cardiology Diagnoses Atrial fibrillation, unspecified type (HCC) Procedures ECG 12 lead Wang Borges MD [address] [facility] [address] [place] [address] Referral ID Status Reason Start Date Expiration Date Visits Re quested Visits Authorized [id number] Closed 03/09/2022 03/09/2023 1 1 Reason Comments Follow-up Overdue f/u without medication list/bottles Reason Comments 3 mo fu Reason Comments Follow-up Reason Comments Back Pain Patient presents tod ay with a diagnosis of lumbar neuritis and DDD lumbosacral fracture. Pain is located in low back and goes to bilateral hips. Specialty Diagnoses / Procedures Referred By Contac t Referred To Contact Neurological Surgery / Neurosurgery Diagnoses Lumbar neuritis DDD (degenerative disc disease), lumbosacral Sancho Woodruff MD [address] [place] [address] Bridger Monique MD [address] [employer] [address] [address] Referral ID Status Reason Start Date Expiration Date Visits Re quested Visits Authorized [id number] Closed 02/14/2023 02/14/2024 1 1 Reason Onset Date Comments Medication Refill 04/18/2023 Reason Comments Follow-up 8 month follow up vi sit Specialty Diagnoses / Procedures Referred By Contac t Referred To Contact Cardiology Diagnoses PAF (paroxysmal atrial fibrillation) ([facility]) Sancho Woodruff MD [address] [place] [address] [facility] [address] [address] Referral ID Status Reason Start Date Expiration Date V isits Requested Visits Authorized [id number] Closed Specialty Services Required/Cielo ent's Best Interest 01/28/2023 01/28/2024 1 1 Reason Comments Pre-operative Medical Risk Stratificatio n Specialty Diagnoses / Procedures Referred By Contac t Referred To Contact Diagnoses Sacral insufficiency fracture with delayed healing Sacral insufficiency fracture with delayed healing [M84.48XG] Procedures HI ARTHRODESIS SI JOINT PERCUTANEOUS/MIN INVASIVE HI ARTHRODESIS SI JT OPN W/OBTAINING B1 GRF INSTRMJ Bridger Monique MD [address] [address] Referral ID Status Reason Start Date Expiration Date Visits Re quested Visits Authorized [id number] 05/02/2023 1 1 Reason Comments Wound Check [...] Up In Primary Care Sancho Woodruff MD [address] [place] [address] Referral ID Status Reason Start Date Expiration Date V isits Requested Visits Authorized [id number] Authorized 04/05/2023 10/02/2023 1 1 Reason Comments Follow-up Sacroiliac dysfuncti on Reason Onset Date Comments Medication Refill 08/24/2023 Reason Comments Other G57.01 Reason Comments Medicare Annual Wellness Visit Subsequen t 3 mo CSA Specialty Diagnoses / Procedures Referred By Contac t Referred To Contact Primary Care Diagnoses AF (paroxysmal atrial fibrillation) (CMS/HCC) Gastrointestinal hemorrhage, unspecified gastrointestinal hemorrhage type DDD (degenerative disc disease), lumbosacral Lumbar stenosis with neurogenic claudication Mixed hyperlipidemia Iron deficiency anemia, unspecified iron deficiency anemia type Acquired hypothyroidism Procedures Follow Up In Primary Care Sancho Woodruff MD [address] [place] [address] Referral ID Status Reason Start Date Expiration Date V isits Requested Visits Authorized [id number] Authorized 07/07/2023 01/03/2024 1 1 Reason Comments [...] Primary Care Diagnoses AF (paroxysmal atrial fibrillation) ([facility]/HCC) Gastrointestinal hemorrhage, unspecified gastrointestinal hemorrhage type DDD (degenerative disc disease), lumbosacral Lumbar stenosis with neurogenic claudication Mixed hyperlipidemia Iron deficiency anemia, unspecified iron deficiency anemia type Acquired hypothyroidism Routine general medical examination at health care facility Acute UTI Procedures Follow Up In Primary Care - Established Sancho Woodruff MD [address] [place] [phone] Referral ID Status Reason Start Date Expiration Date V isits Requested Visits Authorized [id number] Authorized 10/13/2023 10/12/2024 1 1 Specialty Diagnoses / Procedures Referred By Contac t Referred To Contact Pain Medicine Diagnoses Cervicalgia Johnson, Jose A Blanco, REGIONAL PROGRAM MANAGER [address] [facility] [place] [address] [address] Jaylan Moscoso, [address] [place] [address] Referral ID Status Reason Start Date Expiration Date Visits Requested Visits Authorized [id number] Closed Patient Preference 12/21/2023 12/20/2024 1 1 Reason Comments Knee Pain left Specialty Diagnoses / Procedures Referred By Contac t Referred To Contact Radiology Diagnoses Acute pain of left knee Procedures XR knee left 4+ views Sancho Woodruff MD [address] [place] [phone] Referral ID Status Reason Start Date Expiration Date Visits Requested Visits Authorized [id number] Authorized Perform Procedure 03/12/2024 03/12/2025 1 1 [...] Expiration Date V isits Requested Visits Authorized [id number] Authorized 04/16/2024 04/16/2025 1 1 Reason Comments Follow-up 3 mo CS Specialty Diagnoses / Procedures Referred By Mehran alvarenga Referred To Contact Primary Care Diagnoses AF (paroxysmal atrial fibrillation) (Multi) DDD (degenerative disc disease), lumbosacral Lumbar stenosis with neurogenic claudication Procedures Follow Up In Primary Care Sancho Woodruff MD [address] [place] [address] Referral ID Status Reason Start Date Expiration Date V isits Requested Visits Authorized [id number] Authorized 01/16/2024 01/15/2025 1 1 Reason Comments Medication Refill Rosuvastatin Reason Comments Follow-up Overdue 9 months fol low up, Added Eliquis Last lipids 07/11/2023 Reason Comments Medicare Annual Wellness Visit Lindsey t 3 mo CS Reason Comments Consult Referred by Dr. Estefani damon for skin ulcer. Patient having itching, burning, tenderness with an ulceration area in the inside buttocks crease with a small hole above the rectum x 10/02. Patient using Triamcinolone cream bid that she had for her skin irritations. Denies any bleeding, discharge, constipation or diarrhea. Specialty Diagnoses / Procedures Referred By Mehran alvarenga Referred To Contact General Surgery Diagnoses Skin ulcer, unspecified ulcer stage (Multi) Sancho Woodruff MD [address] [facility] [address] [place] [address] Phone: tel: fax: Dariela Garza MD [address] [facility] [address] [place] [address] Phone: tel: fax: Referral ID Status Reason Start Date Expiration Date Visits Requested Visits Authorized [id number] Authorized Specialty Services Required 01/01/2025 01/01/2026 1 1 Reason Comments Wound Check FU 2 weeks ronald ft open wound with pelvis x-ray on 01-21-25. Patient continuing with dressing changes at [facility] on Tue, Wed and Fridays. Patient having burning, itching, discomfort [...] Primary Care Sancho Woodruff MD [address] [place] [address] Phone: tel: fax: Referral ID Status Reason Start Date Expiration Date V isits Requested Visits Authorized [id number] Authorized 01/01/2025 01/01/2026 1 1 Reason Comments Wound Check FU 1 mos wound check of sacral area. Per patient slight tenderness if sitting on it for long periods, wound his healing and getting smaller. Getting dressing changes at the [facility] with medihoney and medriplex on Tuesday, Tuesday and Tuesday. Reason Comments Wound Check FU 2 weeks for sacra l area wound check, with dressing changes done at [facility] on Mondays and Fridays using Medi Honey and Meriplex. Patient noticing no difference in healing since last week and noticing a small amount of light brownish drainage on the dressing in the mornings when she gets up. Patient does have appt with plastic surgery Dr. Cool in [place] on Tuesday. Reason Comments Consult Referred by [...] LUQ pain Sancho Woodruff MD [address] [place] [address] Phone: tel: fax: Belen Platt MD [address] [facility] [address] [place] [address] Phone: tel: fax: Referral ID Status Reason Start Date Expiration Date Visits Requested Visits Authorized [id number] Authorized Specialty Services Required 04/19/2025 04/19/2026 1 [...] By Contac t Referred To Contact Diagnoses AF (paroxysmal atrial fibrillation) (Multi) Procedures ECG 12 lead (Clinic Performed) Sancho Woodruff MD [address] [address] Phone: tel: fax: Referral ID Status Reason Start Date Expiration Date V isits Requested Visits Authorized [id number] Authorized 07/30/2025 07/30/2026 1 1 Josey Uriarte LISW - 11/06/2019 2:45 PM EST Consult Notes (unrecognized section and content) SIMPLE DISCHARGE Date: 11/06/2019 Time: 2:46 PM Patient Name: Alma Mcpherson Date of : 1940 Sex: Female Met [...] if she does, she wants to have [facility]. Verified patient s address and phone number. Discharge Planning Living Arrangements: Spouse/significant other Support Systems: Spouse/significant other, Children Type of Residence: Private residence Prior to Admission Home Care Services: No Patient expects to be discharged to:: home Current Home Equipment: Wheeled walker, Cane, Toilet seat bi developer, Tub/Shower chair, Other (Comment)(sock aide, long handled shoe horn, campus executive director) Anticipated Home Care Needs: None documented in [...] current medications with the following changes: Alma Mcpherson Home Medication Instructions Prior to Surgery SHANIQUA:[id number] Printed on:11/06/19 4983 Medication Information Take last dose on Take [...] ( medications that contain aspirin, such as Birttany Isom, Pepto-Bismol, Anacin), antiinflammatory medications such as Advil, Motrin, Ibuprofen, Naproxen, Aleve, Brittany Isom, Pepto-Bismol, Anacin, Diclofenac, Voltaren, Daypro, Etodolac, Ketoprofen, Piroxicam, Relafen, Nabumetone, etc. Also discontinue Vitamin C, Vitamin E, [place]-3 Fatty Acid, Fish Oil or Lovaza, and [...] them to the hospital. Patient Instructions for [facility]: Prior to surgery: Surgeon's office will contact you with the scheduled time of your surgery. You may use the Head Buyer Tobacco parking available at the Main Entrance One [...] any makeup or lotions. Remove all nail romanian for surgeries involving extremities. Please remember to bring both your insurance card and a photo ID with you on the day of surgery. After your surgery: If you are having outpatient surgery - you must have a licensed furniture delivery driver to take you home. The expectation is that this furniture delivery driver will remain at the hospital for [...] event. documented in this encounter Seen in [place] to Home post discharge and reviewed AVS. Verbalized understanding and denies further needs. Given My chart information Plan of care initiated Problem: Pain Goal: Manage acute pain Note: Encinal is ordered as needed for the management [...] PACU without intraoperative complication. D 11/29/2019 18:03 [id number] 11/29/2019 18:36 MCB/MODL Brief Post Operative Note Patient Name: Alma Mcpherson : 1940 (78 y.o.) Date of Service: 11/29/2019 [facility]: [id number] Procedure(s): Reverse right total shoulder replacement Pre-Operative Diagnoses: * Rotator cuff disorder, right [M67.911] Post-Operative Diagnoses: * Same as Pre-Op Diagnosis * Rotator cuff disorder, right [M67.911] Surgeon(s) and Role: * Dada Hathaway MD - Primary Anesthesiologist: Americo Landa MD JOB LITHOGRAPHER: Sana Kimble CRNA; Leslee Hassan CRNA Paper Cleaner: Belen Helton RN Hand Molder: Archana Mar, TECHNOLOGIST Scrub Person Relief: ST Daksha Scrub Person: ST Luke [employer] Equipment Operator: Gloria Hernandez Scrub Person Assist: Rosie Madrigal RN Floor Service Worker Spring: ST Nohemy Operative findings: see preop Intra and immediate post-operative complications: none Type of anesthesia used: General Estimated blood loss: 200 mL Estimated urine output: Refer to surgical log Specimen(s): ID Type Source Tests Collected by Time Destination A : Right Humeral Head Bone Humerus, Right TISSUE EXAM Dada Hathaway MD 11/29/2019 1630 Implant(s): Implant Name Type Inv. Item Serial No. Director Digital Sales Lot No. LRB No. Used Action BASEPLATE 28MM GLENOID REUNION RSA - [id number] BASEPLATE 28MM GLENOID REUNION RSA [place] [id number] Right 1 Implanted SCREW 6.5 X 24MM CENTER REUNION RSA - [id number] SCREW 6.5 X 24MM CENTER REUNION RSA SAMIR OR [id number] Right 1 Implanted SCREW 4.5 X 24MM PERIPHERAL REUNION RSA - [id number] SCREW 4.5 X 24MM PERIPHERAL REUNION RSA [place] OR [id number] Right 2 Implanted GLENOSPHERE 6 X 32MM CONCENTRIC REUNION RSA - [id number] GLENOSPHERE 6 X 32MM CONCENTRIC REUNION [place] [id number] Right 1 Implanted SCREW 4.5 X 16MM PERIPHERAL REUNION RSA - [id number] SCREW 4.5 X 16MM PERIPHERAL REUNION RSA SAMIR OR [id number] Right 1 Implanted SCREW 4.5 X 16MM PERIPHERAL REUNION RSA - [id number] SCREW 4.5 X 16MM PERIPHERAL REUNION RSA SAMIR OR [id number] Right 1 Implanted STEM 10 X 123MM HUMERAL PRESSFIT CAMP-COAT REUNION TSA - [id number] STEM 10 X 123MM HUMERAL PRESSFIT CAMP-COAT REUNION TSA SAMIR OR [id number] Right 1 Implanted CUP 4 X 32MM HUMERAL REUNION RSA - [id number] CUP 4 X 32MM HUMERAL REUNION RSA SAMIR OR [id number] Right 1 Implanted INSERT 4 X 32MM HUMERAL X3 STANDARD REUNION RSA - [id number] INSERT 4 X 32MM HUMERAL X3 STANDARD REUNION RSA SAMIR OR [id number] Right 1 Implanted Drain(s): NG/OG Tube Nasogastric [...] 100 Associated Problem(s): Coronary artery disease involving king salmon coronary artery of king salmon heart without angina pectoris Coronary artery disease [...] STC via wheelchair per RN to Jovany Bruno. exit Discharge instructions reviewed, voiced understanding, copy [...] INTERVAL HISTORY AND PHYSICAL Patient Name: Alma Mcpherson Admit Date: MR #: [id number] : 1940 The H&P has been reviewed [...] informed her we will be using the Peosta reverse total shoulder replacement system. We will proceed forward with a right reverse total shoulder replacement. All risks and complications were discussed. documented in this encounter Care Teams (unrecognized sec tion and content) Senior Counsel Relationship Specialty Start Date End Date Sancho Woodruff MD PCP - General Family Medicine 05/13/15 Haroon Quintanilla MD Consulting Physician Cardiology 08/24/16 Americo Lee MD Consulting Physician Urologic Surgery 08/24/16 Denisse Streeter, REGIONAL PROGRAM MANAGER Nurse Practitioner Gastroenterology 04/26/17 Senior Counsel Relationship Specialty Start Date End Date Sancho Woodruff MD PCP - General Family Medicine 05/13/15 Haroon Quintanilla MD Consulting Physician Cardiology 08/24/16 Americo Lee MD Consulting Physician Urologic Surgery 08/24/16 Denisse Streeter, REGIONAL PROGRAM MANAGER Nurse Practitioner Gastroenterology 04/26/17 Senior Counsel Relationship Specialty Start Date End Date Sancho Woodruff MD PCP - General Family Medicine 05/13/15 Haroon Quintanilla MD Consulting Physician Cardiology 08/24/16 Americo Lee MD Consulting Physician Urologic Surgery 08/24/16 Denisse Streeter, REGIONAL PROGRAM MANAGER Nurse Practitioner Gastroenterology 04/26/17 Senior Counsel Relationship Specialty Start Date End Date Sancho Woodruff MD PCP - General Family Medicine 05/13/15 Haroon Quintanilla MD Consulting Physician Cardiology 08/24/16 Americo Lee MD Consulting Physician Urologic Surgery 08/24/16 Denisse Streeter, REGIONAL PROGRAM MANAGER Nurse Practitioner Gastroenterology 04/26/17 Senior Counsel Relationship Specialty Start Date End Date Sancho Woodruff MD PCP - General Family Medicine 05/13/15 Haroon Quintanilla MD Consulting Physician Cardiology 08/24/16 Americo Lee MD Consulting Physician Urologic Surgery 08/24/16 Dneisse Streeter, REGIONAL PROGRAM MANAGER Nurse Practitioner Gastroenterology 04/26/17 Senior Counsel Relationship Specialty Start Date End Date Sancho Woodruff MD PCP - General Family Medicine 05/13/15 Haroon Quintanilla MD Consulting Physician Cardiology 08/24/16 Americo Lee MD Consulting Physician Urologic Surgery 08/24/16 Denisse Streeter, REGIONAL PROGRAM MANAGER Nurse Practitioner Gastroenterology 04/26/17 Senior Counsel Relationship Specialty Start Date End Date Sancho Woodruff MD PCP - General Family Medicine 05/13/15 Haroon Quintanilla MD Consulting Physician Cardiology 08/24/16 Americo eLe MD Consulting Physician Urologic Surgery 08/24/16 Denisse Streeter, REGIONAL PROGRAM MANAGER Nurse Practitioner Gastroenterology 04/26/17 Senior Counsel Relationship Specialty Start Date End Date Sancho Woodruff MD PCP - General Family Medicine 05/13/15 Haroon Quintanilla MD Consulting Physician Cardiology 08/24/16 Americo Lee MD Consulting Physician Urologic Surgery 08/24/16 Denisse Streeter, REGIONAL PROGRAM MANAGER Nurse Practitioner Gastroenterology 04/26/17 Senior Counsel Relationship Specialty Start Date End Date Sancho Woodruff MD PCP - General Family Medicine 05/13/15 Haroon Quintanilla MD Consulting Physician Cardiology 08/24/16 Americo Lee MD Consulting Physician Urologic Surgery 08/24/16 Denisse Streeter, REGIONAL PROGRAM MANAGER Nurse Practitioner Gastroenterology 04/26/17 Senior Counsel Relationship Specialty Start Date End Date Sancho Woodruff MD PCP - General Family Medicine 05/13/15 Haroon Quintanilla MD Consulting Physician Cardiology 08/24/16 Americo Lee MD Consulting Physician Urologic Surgery 08/24/16 Denisse Streeter, REGIONAL PROGRAM MANAGER Nurse Practitioner Gastroenterology 04/26/17 Senior Counsel Relationship Specialty Start Date End Date Sancho Woodruff MD PCP - General Family Medicine 05/13/15 Haroon Quintanilla MD Consulting Physician Cardiology 08/24/16 Americo Lee MD Consulting Physician Urologic Surgery 08/24/16 Denisse Streeter, REGIONAL PROGRAM MANAGER Nurse Practitioner Gastroenterology 04/26/17 Senior Counsel Relationship Specialty Start Date End Date Sancho Woodruff MD [address] [place] [address] PCP - General 08/10/19 Sancho Woodruff MD [address] [place] [address] PCP - [facility] Attributed Provider 10/10/21 Magalis Ramírez, marine service station attendantMechanic Foreman 01/24/23 Senior Counsel Relationship Specialty Start Date End Date Sancho Woodruff MD [address] [facility] [place] [address] PCP - General 08/10/19 Sancho Woodruff MD [address] [facility] [place] [address] PCP - [facility] Attributed Provider 10/10/21 Magalis Ramírez RN Care Mechanic Foreman 01/24/23 Senior Counsel Relationship Specialty Start Date End Date Sancho Woodruff MD PCP - General Family Medicine 05/13/15 Hraoon Quintanilla MD Consulting Physician Cardiology 08/24/16 Americo Lee MD Consulting Physician Urologic Surgery 08/24/16 Denisse Streeter CNP Nurse Practitioner Gastroenterology 04/26/17 Senior Counsel Relationship Specialty Start Date End Date Sancho Woodruff MD PCP - General Family Medicine 05/13/15 Haroon Quintanilla MD Consulting Physician Cardiology 08/24/16 Americo Lee MD Consulting Physician Urologic Surgery 08/24/16 Denisse Streeter, REGIONAL PROGRAM MANAGER Nurse Practitioner Gastroenterology 04/26/17 Senior Counsel Relationship Specialty Start Date End Date Sancho Woodruff MD PCP - General Family Medicine 05/13/15 Haroon Quintanilla MD Consulting Physician Cardiology 08/24/16 Americo Lee MD Consulting Physician Urologic Surgery 08/24/16 Denisse Streeter, REGIONAL PROGRAM MANAGER Nurse Practitioner Gastroenterology 04/26/17 Senior Counsel Relationship Specialty Start Date End Date Sancho Woodruff MD [address] [place] [address] PCP - General Family Medicine 05/13/15 Haroon Quintanilla MD [address] [facility] [address] [place] [address] Consulting Physician Cardiology 08/24/16 Americo Lee MD [address] [facility] [address] [place] [address] Consulting Physician Urologic Surgery 08/24/16 Denisse Streeter, REGIONAL PROGRAM MANAGER [address] [place] [address] Nurse Practitioner Gastroenterology 04/26/17 Senior Counsel Relationship Specialty Start Date End Date Sancho Woodruff MD [address] [place] [address] PCP - General Family Medicine 05/13/15 Haroon Quintanilla MD [address] [address] Consulting Physician Cardiology 08/24/16 Americo Lee MD [address] [address] Consulting Physician Urologic Surgery 08/24/16 Denisse Streeter, REGIONAL PROGRAM MANAGER [address] [place] [address] Nurse Practitioner Gastroenterology 04/26/17 Senior Counsel Relationship Specialty Start Date End Date Sancho Woodruff MD [address] [place] [id number] PCP - General Family Medicine 05/13/15 Haroon Quintanilla MD [address] [address] Consulting Physician Cardiology 08/24/16 Americo Lee MD [address] [phone] Consulting Physician Urologic Surgery 08/24/16 Denisse Streeter CNP [address] [place] [address] Nurse Practitioner Gastroenterology 04/26/17 Senior Counsel Relationship Specialty Start Date End Date Sancho Woodruff MD [address] [place] [id number] PCP - General Family Medicine 05/13/15 Haroon Quintanilla MD [address] [address] Consulting Physician Cardiology 08/24/16 Americo Lee MD [address] [facility] [address] [place] [address] Consulting Physician Urologic Surgery 08/24/16 Denisse Streeter, REGIONAL PROGRAM MANAGER [address] [place] [address] Nurse Practitioner Gastroenterology 04/26/17 Senior Counsel Relationship Specialty Start Date End Date Sancho Woodruff MD [address] [place] [id number] PCP - General Family Medicine 05/13/15 Haroon Quintanilla MD [address] [address] Consulting Physician Cardiology 08/24/16 Americo Lee MD [address] [facility] [address] [place] [phone] Consulting Physician Urologic Surgery 08/24/16 Denisse Streeter CNP [address] [place] [address] Nurse Practitioner Gastroenterology 04/26/17 Senior Counsel Relationship Specialty Start Date End Date Sancho Woodruff MD [address] [place] [address] PCP - General Family Medicine 05/13/15 Haroon Quintanilla MD 1325 [facility] [address] [place] [address] Consulting Physician Cardiology 08/24/16 Americo Lee MD [address] [facility] [address] [place] [phone] Consulting Physician Urologic Surgery 08/24/16 Denisse Streeter CNP [address] [place] [address] Nurse Practitioner Gastroenterology 04/26/17 Senior Counsel Relationship Specialty Start Date End Date Sancho Woodruff MD [address] [place] [id number] PCP - General 08/10/19 Sancho Woodruff MD [address] [place] [address] PCP - [facility] Attributed Provider 10/10/21 Senior Counsel Relationship Specialty Start Date End Date Sancho Woodruff MD [address] [place] [address] PCP - General 08/10/19 Sancho Woodruff MD [address] [place] [id number] PCP - [facility] Attributed Provider 10/10/21 Senior Counsel Relationship Specialty Start Date End Date Sancho Woodruff MD [address] [place] [id number] PCP - General Family Medicine 05/13/15 Haroon Quintanilla MD 1325 [facility] [address] [place] [address] Consulting Physician Cardiology 08/24/16 Americo Lee MD [address] [facility] 230 [place] [phone] Consulting Physician Urologic Surgery 08/24/16 Denisse Streeter, REGIONAL PROGRAM MANAGER [address] [place] [address] Nurse Practitioner Gastroenterology 04/26/17 Senior Counsel Relationship Specialty Start Date End Date Sancho Woodruff MD [address] [place] [id number] PCP - General 08/10/19 Sancho Woodruff MD [address] [place] [id number] PCP - [facility] Attributed Provider 10/10/21 Magalis Ramírez, marine service station attendantMechanic Foreman 01/24/23 05/04/23 Senior Counsel Relationship Specialty Start Date End Date Sancho Woodruff MD [address] [place] [id number] PCP - General 08/10/19 Sancho Woodruff MD [address] [place] [id number] PCP - [facility] Attributed Provider 10/10/21 Magalis Ramírez, marine service station attendantMechanic Foreman 01/24/23 05/04/23 Senior Counsel Relationship Specialty Start Date End Date Sancho Woodruff MD [address] [place] [id number] PCP - General 08/10/19 Sancho Woodruff MD [address] [place] [id number] PCP - [facility] Attributed Provider 10/10/21 Senior Counsel Relationship Specialty Start Date End Date Sancho Woodruff MD [address] [place] [address] PCP - General Family Medicine 05/13/15 Haroon Quintanilla MD [address] [address] Consulting Physician Cardiology 08/24/16 Americo Lee MD [address] [facility] [address] [place] [phone] Consulting Physician Urologic Surgery 08/24/16 Denisse Streeter REGIONAL PROGRAM MANAGER [address] [place] [address] Nurse Practitioner Gastroenterology 04/26/17 Senior Counsel Relationship Specialty Start Date End Date Sancho Woodruff MD [address] [place] [id number] PCP - General Family Medicine 05/13/15 Haroon Quintanilla MD 1325 [facility] [address] [place] [address] Consulting Physician Cardiology 08/24/16 Americo Lee MD [address] [facility] [address] [place] [phone] Consulting Physician Urologic Surgery 08/24/16 Denisse Streeter, REGIONAL PROGRAM MANAGER [address] [place] [address] Nurse Practitioner Gastroenterology 04/26/17 Senior Counsel Relationship Specialty Start Date End Date Sancho Woodruff MD [address] [place] [id number] PCP - General Family Medicine 05/13/15 Haroon Quintanilla MD 1325 [facility] [address] [place] [address] Consulting Physician Cardiology 08/24/16 Americo Lee MD [address] [facility] [address] [place] [phone] Consulting Physician Urologic Surgery 08/24/16 Denisse Streeter, REGIONAL PROGRAM MANAGER [address] [place] [address] Nurse Practitioner Gastroenterology 04/26/17 Senior Counsel Relationship Specialty Start Date End Date Sancho Woodruff MD [address] [place] [address] PCP - General 08/10/19 Sancho Woodruff MD [address] [place] [address] PCP - [facility] Attributed Provider 10/10/21 Senior Counsel Relationship Specialty Start Date End Date Sancho Woodruff MD [address] [place] [id number] PCP - General Family Medicine 05/13/15 Haroon Quintanilla MD 1325 [facility] [address] [place] [address] Consulting Physician Cardiology 08/24/16 Americo Lee MD [address] [facility] [address] [place] [phone] Consulting Physician Urologic Surgery 08/24/16 Denisse Streeter REGIONAL PROGRAM MANAGER [address] [place] [address] Nurse Practitioner Gastroenterology 04/26/17 Senior Counsel Relationship Specialty Start Date End Date Sancho Woodruff MD [address] [place] [address] PCP - General 08/10/19 Sancho Woodruff MD [address] [place] [id number] PCP - [facility] Attributed Provider 10/10/21 Senior Counsel Relationship Specialty Start Date End Date Sancho Woodruff MD [address] [place] [id number] PCP - General 08/10/19 Sancho Woodruff MD [address] [place] [address] PCP - [facility] Attributed Provider 10/10/21 Senior Counsel Relationship Specialty Start Date End Date Sancho Woodruff MD [address] [place] [id number] PCP - General Family Medicine 05/13/15 Haroon Quintanilla MD [address] [address] Consulting Physician Cardiology 08/24/16 Americo Lee MD [address] [facility] [address] [place] [address] Consulting Physician Urologic Surgery 08/24/16 Denisse Streeter, REGIONAL PROGRAM MANAGER [address] [place] [address] Nurse Practitioner Gastroenterology 04/26/17 Senior Counsel Relationship Specialty Start Date End Date Sancho Woodruff MD [address] [place] [id number] PCP - General Family Medicine 05/13/15 Haroon Quintanilla MD [address] [address] Consulting Physician Cardiology 08/24/16 Americo Lee MD [address] [phone] Consulting Physician Urologic Surgery 08/24/16 Denisse Streeter, REGIONAL PROGRAM MANAGER [address] [place] [address] Nurse Practitioner Gastroenterology 04/26/17 Senior Counsel Relationship Specialty Start Date End Date Sancho Woodruff MD [address] [place] [address] PCP - General Family Medicine 05/13/15 Haroon Quintanilla MD 1325 [facility] [address] [place] [address] Consulting Physician Cardiology 08/24/16 Americo Lee MD [address] [phone] Consulting Physician Urologic Surgery 08/24/16 Denisse Streeter REGIONAL PROGRAM MANAGER [address] [place] [address] Nurse Practitioner Gastroenterology 04/26/17 Senior Counsel Relationship Specialty Start Date End Date Sancho Woodruff MD [address] [address] PCP - [facility] Attributed Provider 10/10/21 Sancho Woodruff MD [address] [address] PCP - General Family Medicine 08/13/24 Senior Counsel Relationship Specialty Start Date End Date Sancho Woodruff MD [address] [place] [address] PCP - General 08/10/19 Sancho Woodruff MD [address] [place] [id number] PCP - [facility] Attributed Provider 10/10/21 Senior Counsel Relationship Specialty Start Date End Date Sancho Woodruff MD [address] [place] [id number] PCP - General Family Medicine 05/13/15 Haroon Quintanilla MD [address] [address] Consulting Physician Cardiology 08/24/16 Americo Lee MD [address] [phone] Consulting Physician Urologic Surgery 08/24/16 Denisse Streeter, REGIONAL PROGRAM MANAGER [address] [place] [address] Nurse Practitioner Gastroenterology 04/26/17 Senior Counsel Relationship Specialty Start Date End Date Sancho Woodruff MD [address] [place] [id number] PCP - General Family Medicine 05/13/15 Haroon Quintanilla MD [address] [address] Consulting Physician Cardiology 08/24/16 Americo Lee MD [address] [phone] Consulting Physician Urologic Surgery 08/24/16 Denisse Streeter, REGIONAL PROGRAM MANAGER [address] [place] [address] Nurse Practitioner Gastroenterology 04/26/17 Senior Counsel Relationship Specialty Start Date End Date Sancho Woodruff MD [address] [place] [id number] PCP - General Family Medicine 05/13/15 Haroon Quintanilla MD [address] [address] Consulting Physician Cardiology 08/24/16 Americo Lee MD [address] [phone] Consulting Physician Urologic Surgery 08/24/16 Denisse Streeter, REGIONAL PROGRAM MANAGER [address] [place] [address] Nurse Practitioner Gastroenterology 04/26/17 Senior Counsel Relationship Specialty Start Date End Date Sancho Woodruff MD [address] [place], [place] [phone] PCP - General Family Medicine 05/13/15 Haroon Quintanilla MD [address] [address] Consulting Physician Cardiology 08/24/16 Americo Lee MD [address] [phone] Consulting Physician Urologic Surgery 08/24/16 Denisse Streeter, REGIONAL PROGRAM MANAGER [address] [place] [address] Nurse Practitioner Gastroenterology 04/26/17 Senior Counsel Relationship Specialty Start Date End Date Sancho Woodruff MD [address] [place] [id number] PCP - General Family Medicine 05/13/15 Haroon Quintanilla MD [address] [address] Consulting Physician Cardiology 08/24/16 Americo Lee MD [address] [phone] Consulting Physician Urologic Surgery 08/24/16 Denisse Streeter, REGIONAL PROGRAM MANAGER [address] [place] [address] Nurse Practitioner Gastroenterology 04/26/17 Senior Counsel Relationship Specialty Start Date End Date Sancho Woodruff MD [address] [place], [place] [phone] PCP - General Family Medicine 05/13/15 Haroon Quintanilla MD [address] [address] Consulting Physician Cardiology 08/24/16 Americo Lee MD [address] [phone] Consulting Physician Urologic Surgery 08/24/16 Denisse Streeter, REGIONAL PROGRAM MANAGER [address] [place] [address] Nurse Practitioner Gastroenterology 04/26/17 Senior Counsel Relationship Specialty Start Date End Date Sancho Woodruff MD [address] [address] PCP - [facility] Attributed Provider 10/10/21 Sancho Woodruff MD [address] [address] PCP - General Family Medicine 08/13/24 Senior Counsel Relationship Specialty Start Date End Date Sancho Woodruff MD [address] [address] PCP - [facility] Attributed Provider 10/10/21 Sancho Woodruff MD [address] [address] PCP - General Family Medicine 08/13/24 Senior Counsel Relationship Specialty Start Date End Date Sancho Woodruff MD [address] [address] PCP - [facility] Attributed Provider 10/10/21 Sancho Woodruff MD [address] [address] PCP - General Family Medicine 08/13/24 Senior Counsel Relationship Specialty Start Date End Date Sancho Woodruff MD [address] [address] [address] PCP - [facility] Attributed Provider 10/10/21 Sancho Woodruff MD [address] [address] PCP - General Family Medicine 08/13/24 Senior Counsel Relationship Specialty Start Date End Date Sancho Woodruff MD [address] [address] PCP - [facility] Attributed Provider 10/10/21 Sancho Woodruff MD [address] [place] [address] [place] [address] PCP - General Family Medicine 08/13/24 Senior Counsel Relationship Specialty Start Date End Date Sancho Woodruff MD [address] [address] PCP - [facility] Attributed Provider 10/10/21 Sancho Woodruff MD [address] [address] PCP - General Family Medicine 08/13/24 Senior Counsel Relationship Specialty Start Date End Date Sancho Woodruff MD [address] [address] PCP - [facility] Attributed Provider 10/10/21 Sancho Woodruff MD [address] [address] PCP - General Family Medicine 08/13/24 Senior Counsel Relationship Specialty Start Date End Date Sancho Woodruff MD [address] [address] PCP - [facility] Attributed Provider 10/10/21 Sancho Woodruff MD [address] [place] [address] [place] [id number] PCP - General Family Medicine 08/13/24 Senior Counsel Relationship Specialty Start Date End Date Sancho Woodruff MD [address] [address] PCP - [facility] Attributed Provider 10/10/21 Sancho Woodruff MD [address] [address] PCP - General Family Medicine 08/13/24 Team [...] Provider Active Star t: May 27, 2025 Senior Counsel Relationship Specialty Start Date End Date Sancho Woodruff MD [address] [place] [address] PCP - [facility] Attributed Provider 10/10/21 Sancho Woodruff MD [address] [facility] 100 [place] [address] PCP - General Family Medicine 08/13/24 Senior Counsel Relationship Specialty Start Date End Date Sancho Woodruff MD [address] [place] [address] PCP - General Family Medicine 05/13/15 Haroon Quintanilla MD [address] [address] Consulting Physician Cardiology 08/24/16 Americo Lee MD [address] [facility] 230 [place] [address] Consulting Physician Urologic Surgery 08/24/16 Denisse Streeter, REGIONAL PROGRAM MANAGER [address] [place] [address] Nurse Practitioner Gastroenterology 04/26/17 Senior Counsel Relationship Specialty Start Date End Date Sancho Woodruff MD [address] [place] [id number] PCP - General Family Medicine 05/13/15 Haroon Quintanilla MD [address] [address] Consulting Physician Cardiology 08/24/16 Americo Lee MD [address] [facility] 230 [place] [id number] Consulting Physician Urologic Surgery 08/24/16 Denisse Streeter, REGIONAL PROGRAM MANAGER [address] [place] [address] Nurse Practitioner Gastroenterology 04/26/17 Team Status: Active [...] Nurse Practitioner Active Start: July 02, 2025 Senior Counsel Relationship Specialty Start Date End Date Sancho Woodruff MD [address] [address] PCP - [facility] Attributed Provider 10/10/21 Sancho Woodruff MD [address] [address] PCP - General Family Medicine 08/13/24 Senior Counsel Relationship Specialty Start Date End Date Sancho Woodruff MD [address] [place] [id number] PCP - [facility] Attributed Provider 10/10/21 Sancho Woodruff MD [address] [address] PCP - General Family Medicine 08/13/24 <item><item> [...] prior to incision., Indication (PRE PROCEDURE): Neurology 0915 (Given - Provid er: Dmitri Perry CRNA) [...] Intra-Procedure 1008 (Given - Provid er: Bridger oMnique MD) naloxone (NARCAN) injection 0.1 mg(Linked Group [...] is pulseless, breathless, and unresponsive, Starting on [place] 05/19/23 at 1151, PACU (only), Call a [...] BE BASED ON THE PRIMARY CLINICAL RECORDS. [employer] provides no warranty or guarantee of the accuracy or completeness of information in this document.
--- NOTE | 2025-08-18 15:35 | PCA ---
called [facility] about air mattress, they said pt had their mattress on MS3 and that we could transfer it to TCU. Conf # [id number]
--- NOTE | 2025-08-18 16:10 | PCM.HP.STD ---
HPI - General General Date of Admission: 08/18/25 Date of Service: 08/19/25 Chief Complaint: Here for rehabilitation. HPI Narrative GAIL MCPHERSON, is a 84 F who presents with followin08/12/2025 Admit [facility]. 08/12/2025 Dr. Cool performed excision of stage 4 sacral pressure ulcer with removal of bone. Irrigating wound VAC applied to sacral wound. 08/12/2025 Dr. Yoo recommended Vancomycin, Ceftriaxone, Flagyl x 6 weeks for sacral osteomyelitis. Cultures pending. 08/13/2025 Feeling well, no issues. Plan close of sacral wound 08/14/2025. Diltiazem, Eliquis for atrial fibrillation. 08/13/2025 Surgical cultures growing staph, continue Vancomycin, Ceftriaxone, Flagyl. Plan 6 weeks of antibiotics. 08/14/2025 Dr. Cool performed sacral wound skin flap closure. 08/15/2025 Eating breakfast, Sacral pain improved. Ceftriaxone, Flagyl for MSSA sacral osteomyelitis, okay for PO Augmentin/Doxycycline for 6 weeks at discharge. Incisional wound VAC until 08/19/2025 then Provena Wound VAC. SCD's, Lovenox DVT prophylaxis, Resume Eliquis 08/16/2025. 08/15/2025 ID recommends Ceftriaxone, Flagyl, then Augmentin/Doxycycline x 6 weeks for MSSA sacral osteomyelitis. 08/15/2025 No acute events overnight. 08/16/2025 Feeling well, some discomfort on buttocks. Restarted Eliquis for atrial fibrillation. 08/16/2025 Some new low back pain, urinalysis negative. 08/17/2025 Difficulty swallowing 2/2 thrush. Nystatin swish and swallow for 14 days for thrush. 08/18/2025 Admit to TCU with debility, here for rehabilitation, strengthening, wound care, prior to discharge home alone. [facility] Medical History Post-menopausal Thyroid disease Injury of head and neck Shortness of breath on exertion Cancer Arthritis Anemia Cirrhosis High cholesterol Back pain Difficulty swallowing History of hiatal hernia History of ulceration History of IBS History of diverticulitis Gastric reflux Non-smoker History of edema History of echocardiogram History of stress test Cardiology follow-up encounter History of atrial fibrillation Hx of small bowel obstruction Home Medications ?Medication ?Instructions ?Recorded ?Last Taken ?Type Immucore 1 tab PO/SL DAILY Supplement 10/01/21 08/10/25 History atorvastatin 10 mg tablet 10 mg PO QHS Cholesterol 10/01/21 08/17/25 History cholecalciferol (vitamin D3) 50 50 mcg PO DAILY Supplement 10/01/21 08/18/25 09:45 History mcg (2,000 unit) capsule (Vitamin D3) dabigatran etexilate 150 mg 150 mg PO BID Blood Thinner 10/01/21 08/10/25 History capsule (Pradaxa) dexlansoprazole 60 mg 60 mg PO DAILY GERD 10/01/21 08/18/25 09:40 History capsule,biphase delayed release (Dexilant) diltiazem HCl 240 mg 240 mg PO DAILY BP 10/01/21 08/18/25 09:40 History capsule,extended release 24 hr furosemide 40 mg tablet 40 mg PO BID PRN Edema 10/01/21 08/08/25 History lubiprostone 8 mcg capsule 8 mcg PO BID Constipation 10/01/21 08/10/25 History (Amitiza) milk thistle 150 mg capsule 300 mg PO DAILY Supplement 10/01/21 08/10/25 History multivitamin 1 cap PO DAILY Supplement 10/01/21 08/10/25 History polyethylene glycol 3350 17 gram 17 g PO DAILY Constipation 10/01/21 08/10/25 History oral powder packet (Miralax) levothyroxine 100 mcg tablet 100 mcg PO DAILY Thyroid 04/22/25 08/18/25 06:25 History naloxone 4 mg/actuation nasal spray 4 mg intranasal PRN Opioid over 04/22/25 Unknown History dose tramadol 50 mg tablet 50 mg PO Q6H PRN PRN pain 04/22/25 08/18/25 09:45 History apixaban 2.5 mg tablet (Eliquis) 2.5 mg PO BID Blood Thinner 07/29/25 08/18/25 09:35 History propafenone 150 mg tablet 150 mg PO BID Antiarrhythmic 07/29/25 08/18/25 09:40 History amoxicillin 875 mg-potassium 1 tab PO Q12H Antibiotic #74 tabs 08/16/25 Unknown Rx clavulanate 125 mg tablet doxycycline hyclate 100 mg capsule 100 mg PO BID Antibiotic #74 caps 08/16/25 Unknown Rx Allergy/AdvReac Type Severity Reaction Status Date / Time hydrocodone (From [place]) Allergy Severe Itching Verified 08/12/25 23:33 oxycodone Allergy Severe Itching Verified 08/12/25 23:33 adhesive tape AdvReac Rash Verified 08/12/25 07:22 NSAIDS (Non-Steroidal AdvReac Nausea Verified 08/12/25 07:22 Anti-Inflamma Surgical History Hx of eye surgery History of ureteroscopy History of esophagogastroduodenoscopy (EGD) Hx of colonoscopy Hx of total shoulder replacement History of bilateral knee arthroplasty Hx of bilateral cataract extraction History of laparoscopic cholecystectomy Hx of laparoscopy Hx of hysterectomy, total Hx of appendectomy Hx of tonsillectomy Social History (Updated 08/18/25 @ 16:[address] Adrien Quevedo MD) household members: none Smoking Status: Never smoker alcohol intake: never substance use type: does not use ROS Constitutional Constitutional: Reports weakness; Denies chills, fever(s) or weight gain ENT HEENT: Denies headache(s), nasal congestion or nasal discharge Cardiovascular Cardiovascular: Denies chest pain or palpitations Respiratory/Chest Respiratory/Chest: Denies cough, excessive phlegm production or shortness of breath with exertion Gastrointestinal Gastrointestinal: Denies abdominal pain, nausea or vomiting Genitourinary Genitourinary: Denies dysuria Musculoskeletal Musculoskeletal: Denies joint pain or joint swelling Integumentary Integumentary: Denies rash or wounds Neurologic Neurologic: Denies focal weakness, numbness or tingling Psychiatric Psychiatric: Denies anxiety, auditory hallucinations, depression, homicidal ideation or suicidal ideation Physical Exam Const alert General Appearance: cooperative HEENT normocephalic Eyes PERRL and EOMs intact bilaterally Neck supple, no JVD and no carotid bruits Resp normal respiratory effort, normal air movement and clear to auscultation bilaterally Cardio regular rate and regular rhythm GI normal to inspection, nondistended, normoactive bowel sounds, non-tender and non-distended Extremity normal capillary refill General Extremity: Negative for edema Skin no rashes or lesions noted Wound Narrative: Wound VAC to sacrum. Psych affect normal Appearance: appropriate Results Lab / Micro Data 08/19/25 05:07 08/19/25 05:07 Assessment & Plan Assessment/Plan (1) Debility: (2) Pressure ulcer of sacral region, stage 4: (3) Sacral osteomyelitis: (4) Hyperlipidemia, unspecified: (5) Vitamin D deficiency: (6) Atrial fibrillation: (7) GERD (gastroesophageal reflux disease): (8) Constipation: (9) Hypothyroidism: PLAN: Plan 84 year old female with below past medical history hospitalized for stage 4 pressure ulcer/sacral osteomyelitis, underwent excision of sacral ulcer followed by skin flap closure per Dr. Cool, admitted to TCU with debility, here for rehabilitation, strengthening, prior to discharge home alone. Debility - PT/OT. Dysphagia - ST. Pain - Tylenol 1000mg q6 prn pain (1-5), Tramadol 50mg q6 prn pain (6-10). Bowel - senna/colace 1 tablet bid. Adult immunization - Administer pneumonia vaccine, covid vaccine, flu vaccine as appropriate. DVT prophylaxis - Eliquis. Sacral osteomyelitis s/p excision/skin flap closure - Augmentin 875mg bid thru 09/24/2025, Doxycycline 100mg bid thru 09/24/2025, Consult Dr. Cool to follow. Atrial fibrillation - Propafenone 150mg bid, Diltiazem CD 240mg daily, Eliquis 2.5mg bid. Hyperlipidemia - Atorvastatin 20mg qhs. Vitamin D deficiency - D3 50mcg daily. Edema - Furosemide 40mg bid prn. Hypothyroidism - Levothyroxine 100mcg daily. Nutrition - MVI 1 tablet daily. GERD - Pantoprazole 40mg daily. Hypokalemia - K 2.7, KCL 60meq po x 1, then 20mg bid, trend bmp.
[2025-08-18 16:33] VITALS: BP 143/68; PULSE 89; RESP 19; TEMP 36.6; O2SAT 92
[2025-08-18 21:30] VITALS: PULSE 70; RESP 16
[2025-08-18] MEDS: APIXABAN 2.5 MG TABLET (WCH) PO (21:46)
[2025-08-18] MEDS: 0.9% Saline Lock 10 ML Syringe IV (21:51)
[2025-08-19 05:44] LABS: Hematocrit 37.4 % (37-47); Hemoglobin 12.3 g/dL (12.0-15.0); Immature Granulocytes Count 0.020 X10^3/uL (0.0-0.0); Mean Corp Hgb Conc 32.9 g/dL (32-36); Mean Corpuscular Volume 87.4 fL (81-99); Mean Platelet Vol. 10.8 fl (6.2-12.0); NRBC Flagged by Analyzer 0 % (0-5); Platelet Count 166 K/mm3 (150-450); RBC Distribution Width CV 15.6 % (11.6-14.6); RBC Distribution Width SD 48.4 fl (35.1-43.9); Red Blood Count 4.28 M/mm3 (4.2-5.4); White Blood Count 6.4 K/mm3 (4.4-11.0)
[2025-08-19 06:14] LABS: Anion Gap 11 (5-15); BUN 6 mg/dL (4-19); BUN/Creat Ratio 11.1 RATIO (10-20); Calcium,Total 7.9 mg/dL (7.6-11.0); Carbon Dioxide 24.7 mmol/L (21.0-32.0); Chloride 104 mmol/L (98-108); Estimated Creatinine Clearance 44.48 ml/min (50-250); Glucose 89 mg/dL (70-99); Potassium 2.7 mmol/L (3.3-5.1)
[2025-08-19 08:12] VITALS: BP 129/93; PULSE 95; RESP 18; TEMP 36.6; O2SAT 95
[2025-08-19] MEDS: APIXABAN 2.5 MG TABLET (WCH) PO (08:18)
[2025-08-19] MEDS: Cholecalciferol (VIT D3) 25 MCG TABLET (1,000 UNITS) 50 MCG PO (08:18)
[2025-08-19] MEDS: Senna/Docusate Sodium 1 Tablet PO (08:20)
--- NOTE | 2025-08-19 10:00 | RAD_ITS ---
PROCEDURE: ABDOMEN SINGLE VIEW 08/19/2025 REASON FOR EXAM: NAUSEA. TECHNIQUE: Procedure Code: RADABD Modality: DX Procedure: Two views of the abdomen COMPARISON: None FINDINGS: Bowel gas: Borderline distended air-filled loops of small and large bowel in the abdomen consistent with ileus. Retained stool noted in the ascending colon, and rectum Calcifications: No suspicious calcifications, evidence of previous cholecystectomy Bones: Degenerative bony changes. Moderate to severe narrowing of the left hip joint without subchondral changes. Replaced right hip joint free of complication. Right SI joint surgical hardware free of complication Other: RAD/Abdomen Single View IMPRESSION: No acute findings Ileus Degenerative bony changes Reading Location: [id number]
[2025-08-19] MEDS: Potassium Chloride Oral Tablet 20 MEQ 60 MEQ PO (10:21)
[2025-08-19] MEDS: Polyethylene Glycol 3350 17 GM PACKET PO (10:21)
--- NOTE | 2025-08-19 10:45 | PN.SURG_ITS ---
Subjective Subjective Pain controlled. Doing well in the TCU, doing her therapy, walking well. Objective Data Objective Data Vital Signs: Vital Signs Temp Pulse Resp BP Pulse Ox O2 Del Method 97.9 F 95 18 129/93 H 95 Room Air 08/19/25 08:12 08/19/25 08:12 08/19/25 08:12 08/19/25 08:12 08/19/25 08:12 08/19/25 08:12 Oxygen Delivery Method Room Air Weight: 141 lb Intake & Output: Intake and Output for Last 24 Hours 08/17/25 08/18/25 08/19/25 23:59 23:59 23:59 Intake Total 120 / 120 Balance 120 / 120 Lab / Micro Data 08/19/25 05:07 08/19/25 05:07 Labs: Laboratory Results - last 24 hr 08/19/25 05:07: WBC 6.4, RBC 4.28, Hgb 12.3, Hct 37.4, MCV 87.4, MCH 28.7, MCHC 32.9, RDW Std Deviation 48.4 H, RDW Coeff of Kip 15.6 H, Plt Count 166, MPV 10.8, Immature Gran % (Auto) 0.300, Neut % (Auto) 56.4, Lymph % (Auto) 25.9, M oscar % (Auto) 15.9 H, Eos % (Auto) 1.2, Baso % (Auto) 0.3, Absolute Neuts (auto) 3.6, Absolute Lymphs (auto) 1.66, Nucleated RBC % 0, Sodium 139, Potassium 2.7 L*, Chloride 104, Carbon Dioxide 24.7, Anion Gap 11, BUN 6, Creatinine 0.50 L, E stim Creat Clear Calc 44.48 L, Est GFR (MDRD) Non-Af 93, BUN/Creatinine Ratio 11.1, Glucose 89, Calcium 7.9 Physical Exam Narrative VAC removed. Flap is warm and viable. Suture line intact. No fluid collections. No swelling on the legs. Assessment & Plan Assessment/Plan (1) Stage 4 skin ulcer of sacral region: PLAN: Continue strict pressure offloading (No pressure on the sacral area). Must be lateral position or prone while in bed. Continue pressure offloading bed (currently in use) Continue frequent walks and therapy to prevent DVT/PE Plastics will continued to follow. Continue antibiotics per ID.
--- NOTE | 2025-08-19 11:52 | PHA.CONS_ITS ---
Documented by User: Yajaira Guardado 08/19/25 12:19 TCU RX Drug Regimen Review Subjective/Objective Subjective/Objective Subjective: TCU Admission. 84 YOF presented for surgery. Hospitalized for stage 4 pressure ulcer/sacral osteomyelitis, underwent excision of sacral ulcer followed by skin flap closure per Dr. Cool. Admitted to TCU with debility for strengthening and rehabilitation. Objective: Allergies hydrocodone (From [place]) Allergy (Severe, Verified 08/12/25 23:33) Itching oxycodone Allergy (Severe, Verified 08/12/25 23:33) Itching adhesive tape Adverse Reaction (Verified 08/12/25 07:22) Rash SURGICAL TAPE NSAIDS (Non-Steroidal Anti-Inflamma Adverse Reaction (Verified 08/12/25 07:22) Nausea Current Medications Generic Name Dose Route Start Last Admin Trade Name Freq PRN Reason Stop Dose Admin Acetaminophen 1,000 mg 08/18/25 16:27 Acetaminophen 500 Mg Tablet PO Q6H PRN PRN Pain Score 1-5 Amoxicillin/Clavulanate Potassium 875 mg 08/18/25 17:00 08/19/25 08:17 Amox/Clavulanate 875 Mg Tablet PO 09/24/25 08:01 875 mg BIDCM SVETLANA Administration Apixaban 2.5 mg 08/18/25 22:00 08/19/25 08:18 Apixaban 2.5 Mg Tablet (Wch) PO 2.5 mg BID SVETLANA Administration Atorvastatin Calcium 10 mg 08/18/25 22:00 08/18/25 21:46 Atorvastatin Calcium 10 Mg Tablet PO 10 mg QHS SVETLANA Administration Cholecalciferol 50 mcg 08/19/25 10:00 08/19/25 08:18 Cholecalciferol (Vit D3) 25 Mcg Tablet (1,000 Units) PO 50 mcg DAILY SVETLAAN Administration Diltiazem HCl 240 mg 08/19/25 10:00 08/19/25 08:17 Diltiazem Cd 240 Mg Capsule PO 240 mg DAILY SVETLANA Administration Protocol Doxycycline Monohydrate 100 mg 08/18/25 22:00 08/19/25 08:18 Doxycycline 100 Mg Capsule PO 09/24/25 10:01 100 mg BID SVETLANA Administration Furosemide 40 mg 08/18/25 16:07 Furosemide 40 Mg Tablet PO BID PRN Edema Protocol Levothyroxine Sodium 100 mcg 08/19/25 06:00 08/19/25 05:19 Levothyroxine 100 Mcg Tablet PO 100 mcg DAILY@0600 SVETLANA Administration Magnesium Citrate 300 ml 08/18/25 16:30 Magnesium Citrate 300 Ml PO DAILY PRN CONSTIPATION Multivitamins 1 tablet 08/19/25 08:00 08/19/25 08:17 Multivitamins,Therapeutic Tablet PO 1 tablet BREAKFAST SVETLANA Administration Ondansetron HCl 8 mg 08/19/25 09:11 08/19/25 10:20 Ondansetron Odt 4 Mg Tablet PO 8 mg Q8H PRN PRN Administration NAUSEA/VOMITING Pantoprazole Sodium 40 mg 08/19/25 10:00 08/19/25 08:18 Pantoprazole Sodium 40 Mg Tablet PO 40 mg DAILY SVETLANA Administration Polyethylene Glycol 17 gm 08/19/25 10:00 08/19/25 10:21 Polyethylene Glycol 3350 17 Gm Packet PO 17 gm DAILY SVETLANA Administration Potassium Chloride 20 meq 08/20/25 08:00 Potassium Chloride Oral Tablet 20 Meq PO BIDCM SVETLANA Propafenone HCl 150 mg 08/18/25 22:00 08/19/25 08:18 Propafenone 150 Mg Tablet PO 150 mg BID SVETLANA Administration Senna/Docusate Sodium 1 tablet 08/18/25 22:00 08/19/25 08:20 Senna/Docusate Sodium 1 Tablet PO 1 tablet BID SVETLANA Administration Sodium Chloride 10 - 40 ml 08/18/25 17:42 08/18/25 21:51 0.9% Saline Lock 10 Ml Syringe IV 10 ml UD PRN Administration SALINE FLUSH Tramadol HCl 50 mg 08/18/25 16:12 08/19/25 08:14 Tramadol 50 Mg Tablet PO 50 mg Q6H PRN PRN Administration Pain Score 6-10 or Pre PT/OT Tuberculin PPD 0.1 ml 08/26/25 10:00 Tuberculin,Purif.Prot.Deriv. 50 Tu/Ml Vial ID 08/26/25 10:01 X1 ONE Problem List Hypothyroidism (Acute) Constipation (Acute) GERD (gastroesophageal reflux disease) (Acute) Vitamin D deficiency (Acute) Hyperlipidemia, unspecified (Acute) Pressure ulcer of sacral region, stage 4 (Acute) Debility (Acute) Sacral osteomyelitis (Acute) Stage 4 skin ulcer of sacral region (Acute) Atrial fibrillation (Acute) Vital Signs Temp Pulse Resp BP Pulse Ox O2 Del Method 97.9 F 95 18 129/93 H 95 Room Air 08/19/25 08:12 08/19/25 08:12 08/19/25 08:12 08/19/25 08:12 08/19/25 08:12 08/19/25 08:12 Oxygen Delivery Method Room Air Weight: 63.957 kg Sodium 139 mmol/L (133-145) 08/19/25 05:07 Potassium 2.7 mmol/L (3.3-5.1) L* 08/19/25 05:07 Chloride 104 mmol/L (98-108) 08/19/25 05:07 Carbon Dioxide 24.7 mmol/L (21.0-32.0) 08/19/25 05:07 Anion Gap 11 (5-15) 08/19/25 05:07 BUN 6 mg/dL (4-19) 08/19/25 05:07 Creatinine 0.50 mg/dL (0.70-1.20) L 08/19/25 05:07 Est GFR (MDRD) Non-Af 93 (>60) 08/19/25 05:07 BUN/Creatinine Ratio 11.1 RATIO (10-20) 08/19/25 05:07 Glucose 89 mg/dL (70-99) 08/19/25 05:07 Assessment/Plan: 1. Pain: acetaminophen 1000mg PO Q6H PRN pain 1-5 (no doses given) and tramadol 50mg PO Q6H PRN pain 6-10 (1 dose given for generalized pain, pain score of 6). Monitor pain scores before/after prn administration for response, PRN pain medication usage, symptoms of pain/resident distress and ability to participate in therapy. Monitor for constipation (last BM:08/18/25), respiratory depression (current RR range:16-19), falls and sedation/delirium ([place]). 2. Bowels: Miralax 17gm PO daily, senna/docusate 1T PO BID and magnesium citrate 300mL PO daily PRN constipation. Resident has not used any prn doses at this time. Last document bowel movement:08/18/25. Monitor for usage of prn medications, abdominal pain, frequency of bowel movements, diarrhea. Recommend holding bowel regimen if resident develops diarrhea. 3. Sacral osteomyelitis s/p excision/skin flap closure: Augmentin 875mg PO BID thru 09/24/25, doxycycline 100mg PO BID thru 09/24/25. Please continue to monitor for S/S of infection, renal function, diarrhea, upset stomach. 4. Atrial fibrillation: propafenone 150mg PO BID, diltiazem CD 240mg PO daily and apixaban 2.5mg PO BID. Monitor renal function ( Scr =0.5 mg/dL) and body weight (Wt = 63 kg). Recommend adjusting apixaban dose to 5mg based on age [>80], weight [>60kg] and Scr [<1.5mg/dL], Resident only meets 1 criteria for reduced dose.?Thanks. Monitor for symptoms of bleeding (including melena, hemoptysis, hematuria, epistaxis, new-onset headache), hemoglobin (last Hgb =12.3g/dL). Monitor for new/worsening heart failure symptoms, bradyarrhythmia, liver function tests if resident develops symptoms of hepatoxicity. Please continue to monitor for S/S of asthma, heart failure, bradycardia (range 70-95), hypotension (BP range 129/93 - 143/68); all black box warnings for propafenone. Last QTc 440msec 08/14/25. 5. Hyperlipidemia: atorvastatin 10mg PO QHS. Last FLP =none on file. Please consider FLP to determine efficacy of current lipid-lowering regimen. Thanks. Please continue to monitor LFTs (last 08/13/25) and muscle pain. 6. Edema: furosemide 40mg PO BID PRN edema. Resident has not used any prn doses at this time. Please continue to monitor for for edema, PRN usage. 7. Hypothyroidism: levothyroxine 100mcg PO daily. Please continue to monitor TSH (last 08/14/25 WNL) and S/S of hypo/hyperthyroidism. 8. GERD: pantoprazole 40mg PO daily. Monitor for diarrhea (consider possibility of C. diff if develops). Consider serum magnesium level and B12 level with long- term use if indicated. 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 9. Hypokalemia: potassium 20mg PO BIDCM and 60mg PO x1 this AM. Please continue to monitor potassium (last 2.7mmol/L). 10. Vitamin D deficiency/nutrition: cholecalciferol 50mcg PO daily and multivitamin 1T PO daily. Please consider ordering a vitamin D level as there is no level in the chart. Thanks. 11. Nausea: ondansetron 8mg PO Q8H PRN nausea/vomiting. Resident has had 1 dose so far. Please continue to monitor for PRN usage and nausea/vomiting. Assessment/Plan for indications treated with psychotropic medications: Resident is not prescribed scheduled or prn psychotropic medications at the time of this drug regimen review. Medical chart and medication regimen reviewed. The following medication irregularities or issues were identified: 1. Apixaban 2.5mg PO BID. Recommend adjusting apixaban dose to 5mg based on age [>80], weight [>60kg] and Scr [<1.5mg/dL], Resident only meets 1 criteria for reduced dose.?Thanks. 2. Atorvastatin 20mg PO QHS. Last FLP =none on file. Please consider FLP to determine efficacy of current lipid-lowering regimen. Thanks. 3. Cholecalciferol 50mcg PO daily. Please consider ordering a vitamin D level as there is no level in the chart. Thanks. Date Date of Note: 08/19/25 Documented by User: Dr. Adrien Quevedo MD 08/19/25 12:59 TCU RX Drug Regimen Review Provider Comments Provider responsibility Provider Comments to Recommendations by Pharmacy Agree
--- NOTE | 2025-08-19 11:56 | MDS.RN ---
MDS Entry Tracker complete, Pain assessment .
--- NOTE | 2025-08-19 14:59 | NURSING ---
Contact Acid Plant Operator Helper Note; Activity Asset: Levar Marquez is independent in her choice of daily activities. 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 She has her phone, word puzzles. tv and will read. Staff will remind her of weekly activities and respect her right to say no.
--- NOTE | 2025-08-19 17:06 | CASEMGMT ---
TCU SW Admit Note: SW met with pt to complete initial assessment. SW introduced self and role; pt agreeable to meeting. SW verified/updated contacts. Patient confirmed code status as full code. (Patient wishes to be DNR-CC. Pt reports no directives or living will and does not wish to complete at this time. SW educated to Medicare benefit and copay coverage. Pt scored 15/15 on BIMS; 0/2 on PHQ9. Pt?s goal is to return home with no needs. SW will continue to follow for DC planning. SABAS Avila
--- NOTE | 2025-08-19 17:41 | NURSING ---
pt wants to receive flu vaccine at discharge.
[2025-08-19] MEDS: Tuberculin,Purif.prot.deriv. 50 TU/ML Vial 0.1 ML ID (18:24)
--- NOTE | 2025-08-19 19:43 | NURSING ---
secure text received for SSEx1 now, order repeated back and confirmed by Dr. Quevedo
[2025-08-19] MEDS: APIXABAN 5 MG TABLET PO (23:15)
[2025-08-19] MEDS: 0.9% Saline Lock 10 ML Syringe IV (23:15)
--- NOTE | 2025-08-19 23:19 | NURSING ---
SSE performed as ordered. Patient tolerated well, retained 1000ml. Positive results, soft and loose XL bowel movement following SSE administration. Patient reports feeling better after emptying bowels. Wound Care and Dressing changed to Sacrum per order d/t previous dressing being soiled.
[2025-08-20 06:32] LABS: Cholesterol 71 mg/dL (<=200); Low Density Lipoprotein Calc. 29 mg/dL; Triglycerides 50 mg/dL; Very Low Density Lipoprotein 10 mg/dL (5-40); Vitamin D,25 Hydroxy 48.6 ng/mL (30-100); cholesterol:hdl ratio screen 2.46
[2025-08-20 06:36] LABS: Anion Gap 8 (5-15); BUN 8 mg/dL (4-19); BUN/Creat Ratio 18.6 RATIO (10-20); Calcium,Total 7.9 mg/dL (7.6-11.0); Carbon Dioxide 28.7 mmol/L (21.0-32.0); Chloride 102 mmol/L (98-108); Estimated Creatinine Clearance 44.48 ml/min (50-250); Glucose 89 mg/dL (70-99); Potassium 2.7 mmol/L (3.3-5.1)
[2025-08-20 09:00] VITALS: BP 141/64; PULSE 78; RESP 16; TEMP 37.1; O2SAT 94
[2025-08-20] MEDS: Potassium Chloride Oral Tablet 20 MEQ 40 MEQ PO ×2 (09:48→18:33)
[2025-08-20] MEDS: APIXABAN 5 MG TABLET PO ×2 (09:49→23:34)
[2025-08-20] MEDS: Senna/Docusate Sodium 1 Tablet PO ×2 (09:50→23:33)
[2025-08-20] MEDS: Cholecalciferol (VIT D3) 25 MCG TABLET (1,000 UNITS) 50 MCG PO (09:50)
--- NOTE | 2025-08-20 10:04 | PCM.PN.SRG ---
Subjective Subjective Patient seen this morning with Rocio wound RN at TCU bedside. She was sitting up in bed offloaded by 2 pillows on her sides eating breakfast. She has been working with therapies. Voices no concerns at this time. Objective Data Objective Data Vital Signs: Vital Signs Temp Pulse Resp BP Pulse Ox O2 Del Method 97.9 F 95 18 129/93 H 95 Room Air 08/19/25 08:12 08/19/25 08:12 08/19/25 08:12 08/19/25 08:12 08/19/25 08:12 08/19/25 08:12 Oxygen Delivery Method Room Air Weight: 141 lb 0.017 oz Intake & Output: Intake and Output for Last 24 Hours 08/18/25 08/19/25 08/20/25 23:59 23:59 23:59 Intake Total 120 / 120 720 / 720 Balance 120 / 120 720 / 720 Lab / Micro Data Attestation: I reviewed the patient's lab results. Lab results narrative: Potassium is unchanged at 2.7 compared to yesterday. 08/19/25 05:07 08/20/25 05:17 Labs: Laboratory Results - last 24 hr 08/20/25 05:17: Sodium 139, Potassium 2.7 L*, Chloride 102, Carbon Dioxide 28.7, Anion Gap 8, BUN 8, Creatinine 0.42 L, Estim Creat Clear Calc 44.48 L, Est GFR (MDRD) Non-Af 97, BUN/Creatinine Ratio 18.6, Glucose 89, Calcium 7.9, Triglycerides 50, Cholesterol 71, LDL Cholesterol, Calc 29, VLDL Cholesterol 10, HDL Cholesterol 29 L, Cholesterol/HDL Ratio 2.46, Vitamin D 25-Hydroxy 48.6 Radiography Diagnostic Testing: Radiology Impression KUB X-Ray 08/19/25 10:00 IMPRESSION: No acute findings Ileus Degenerative bony changes Reading Location: [facility] Physical Exam Narrative Afebrile/VSS Strikethrough bleeding and serous drainage on ABD pad. sutures are intact, skin is rubrous, blanchable with <2sec refill. No induration, fluid collection No leg swelling Assessment & Plan Assessment/Plan (1) Stage 4 skin ulcer of sacral region: PLAN: POD #6 Flap reconstruction , POD #8 stage 4 sacral ulcer and bone excision Pain control: per MAR Incisional VAC starting today. Activity: Continue strict pressure offloading (No pressure on the sacral area). Must be lateral position or prone while in bed. Continue pressure offloading bed (currently in use) Continue frequent walks and therapy to prevent DVT/PE MSSA Per ID Plan on 6 weeks abx, likely can do po given good source control (doxy 100mg bid and augmentin 875mg bid). DVT ppx: Resumed Eliquis. Plastics continue to follow. (2) Sacral osteomyelitis: Charges/Coding Procedures Integumentary 111xxx-113xx: 80008 Global Visit
[2025-08-20] MEDS: Amox/Clav 400mg/5ml Susp 800 MG PO ×2 (11:20→18:32)
--- NOTE | 2025-08-20 14:43 | CHAPLAIN ---
Type of Pastoral Visit _x__ Initial Visit ___ Follow-up Visit ___ On-call Visit ___ General Patient Visit ___ Spiritual Assessment ___ Family Conference ___ Bereavement ___ Rapid Response ___ Code Blue ___ Other (describe below) Pastoral Care Referral From _x__ Patient ___ Family ___ Nurse ___ Physician ___ Helicopter Officer ___ Cooperage Shop Supervisor ___ Other (describe below) Sacrament/Intervention _x__ Active listening ___ Anointing ___ Pentecostal ___ Bereavement ___ Communion _x__ Jody exploration ___ _x__ Life review _x__ Prayer ___ Reconciliation ___ Sacrament of Sick _x__ Supportive presence ___ Wedding ___ Other (describe below) Pastoral Comments patient is very welcoming and pleasant; pt acknowledges that she is having difficulty in recovery and is dealing with pain; however patient indicates her jody in [place] and a life long relationship with God that helps her immensely; pt was last year and states that she was dealing well with that until her own health declined; pt is making decisions about her return home and in particular about finding a home for her dog; pt speaks easily of her jody and her extended family; pt is welcoming of prayer and future visits
--- NOTE | 2025-08-20 15:40 | WOUNDNOTE ---
wound photo: sacrum
[2025-08-20 17:09] LABS: Magnesium 1.6 mg/dL (1.5-2.2)
[2025-08-21 07:03] LABS: Anion Gap 8 (5-15); BUN 11 mg/dL (4-19); BUN/Creat Ratio 25.3 RATIO (10-20); Calcium,Total 8.2 mg/dL (7.6-11.0); Carbon Dioxide 27.6 mmol/L (21.0-32.0); Chloride 103 mmol/L (98-108); Estimated Creatinine Clearance 44.48 ml/min (50-250); Glucose 91 mg/dL (70-99); Potassium 3.8 mmol/L (3.3-5.1)
[2025-08-21 08:00] VITALS: BP 130/72; PULSE 69; RESP 16; TEMP 36.9; O2SAT 93
[2025-08-21] MEDS: Senna/Docusate Sodium 1 Tablet PO (08:15)
[2025-08-21] MEDS: Polyethylene Glycol 3350 17 GM PACKET PO (08:15)
[2025-08-21] MEDS: Amox/Clav 400mg/5ml Susp 800 MG PO ×2 (08:15→17:24)
[2025-08-21] MEDS: Potassium Chloride Oral Tablet 20 MEQ 40 MEQ PO ×2 (08:16→17:16)
[2025-08-21] MEDS: Cholecalciferol (VIT D3) 25 MCG TABLET (1,000 UNITS) 50 MCG PO (08:19)
[2025-08-21] MEDS: APIXABAN 5 MG TABLET PO ×2 (08:19→22:06)
--- NOTE | 2025-08-21 08:58 | PCM.PN.SRG ---
Subjective Subjective Patient seen this morning with Rocio, wound RN and nursing at TCU bedside. She was sitting up in bed offloaded by 2 pillows on her sides eating breakfast. She states since her surgery she's having choking episodes with swallowing certain foods. Speech therapist evaluated the patient and recommended further testing but patient declined. She is tolerating regular diet with thickened liquids. She states she choked on a piece of her omelette today doesn't want to try again. She's mindful of increasing her protein intake and eats magic cup, cottage cheese. Does not care for ensure. Her pain is well controlled currently. She notes the wound VAC is uncomfortable and feels like it's pulling on her rectum. She denies fever. She continues to work with therapies with some encouragements. Objective Data Objective Data General: Denies fever, chills HEENT: Denies headaches, vision changes, sore throat Cardio: Denies chest pain, leg edema Pulmonary: Denies shortness of pain, cough, wheezing Vital Signs: Vital Signs Temp Pulse Resp BP Pulse Ox O2 Del Method 98.8 F 78 16 141/64 H 94 Room Air 08/20/25 09:00 08/20/25 09:00 08/20/25 09:00 08/20/25 09:00 08/20/25 09:00 08/20/25 09:00 Oxygen Delivery Method Room Air Weight: 141 lb 0.017 oz Intake & Output: Intake and Output for Last 24 Hours 08/19/25 08/20/25 08/21/25 23:59 23:59 23:59 Intake Total 720 / 720 480 / 480 Balance 720 / 720 480 / 480 Lab / Micro Data Attestation: I reviewed the patient's lab results. Lab results narrative: Potassium returned to normal range after initiation of Potassium 40mEq BID. Magnesium levels are lower normal range. 08/19/25 05:07 08/21/25 05:17 Labs: Laboratory Results - last 24 hr 08/20/25 05:17: Magnesium 1.6 08/21/25 05:17: Sodium 139, Potassium 3.8, Chloride 103, Carbon Dioxide 27.6, Anion Gap 8, BUN 11, Creatinine 0.43 L, Estim Creat Clear Calc 44.48 L, Est GFR (MDRD) Non-Af 96, BUN/Creatinine Ratio 25.3 H, Glucose 91, Calcium 8.2 Physical Exam Narrative Afebrile/VSS. Lying slightly upright in bed with 2 pillows propping her hips, eating her breakfast With assistance rolls over. Wound VAC with good seal. Periwound appears healthy and pink No leg swelling. Assessment & Plan Assessment/Plan (1) Stage 4 skin ulcer of sacral region: PLAN: POD #7 Flap reconstruction , POD #9 stage 4 sacral ulcer and bone excision Pain control: per MAR Incisional VAC starting today. Activity: Continue strict pressure offloading (No pressure on the sacral area). Must be lateral position or prone while in bed. I reiterated the importance of changing positions and being in lateral position or prone to offload pressure but she says it's uncomfortable to be on any other position. I discussed her flap is at risk for pressure injury and failure shoulder she continue to put weight on her sacrum. She verbalized understanding of risks. Continue pressure offloading bed (currently in use) Continue frequent walks and therapy to prevent DVT/PE MSSA Per ID Plan on 6 weeks abx, likely can do po given good source control (doxy 100mg bid and augmentin 875mg bid). Dysphagia: Speech therapist following, declined full instrumental assessment. On regular texture with thickened liquids. DVT ppx: Resumed Eliquis. Plastics continue to follow. (2) Sacral osteomyelitis: Charges/Coding Procedures Integumentary 111xxx-113xx: 04074 Global Visit
--- NOTE | 2025-08-21 09:22 | WOUNDNOTE ---
In to assess sacral dressing with NORA Domingo. Prevena wound VAC dressing intact with good seal noted at 125mmHg low continuous suction. pt encouraged to keep pressure off sacrum and lay on sides as much as possible. Pt has been wanting to stay on sacrum with pillows in place to offload the sacrum. Pt states I know my body better than anyone else. will continue to encourage patient to turn onto sides.
--- NOTE | 2025-08-21 10:25 | CASEMGMT ---
Social Work IDT met with patient, dtr and DIL for care plan meeting. Discussed patient's progress in PT/OT/ST/SN/RDN. Educated Medicare benefit. Provided pt/family with written communication of insurance process and copay coverage during stay. Pt has severe sacral wound, has wound vac, and unable to lay on sacrum, requires frequent repositioning. Pt lives at home alone and per the CR, pt chooses not to have help in the home. Dietitian recommended increases in protein intake and pt provided her likes, but denied all protein supplements, including Elan d/t taste, despite positive effects on wound healing. Pt did agree for DIL to bring in Premier Protein to drink. Family inquired to nurse about IV ATB vs PO as Dr recommending IV ATB, but pt denied. Nurse provided explanation, overall, providing quicker, more direct, effective treatment to the infection. SW offered the frequency of the IV ATBs pt would be ordered would keep lead javascript engineer in TCU as the wound vac is not a skillable need alone. Pt stated she did not want the PICC line. Family encouraged pt to reconsider. Pt replied, it's hard to change my mind. SW agreed the goal is to have pt maintain her autonomy, but encouraged to consider risks vs benefits, and allowing the medical assistance during her stay and at DC to ensure ongoing improvement citing quality over quantity of life. Pt agreed and voiced she will reconsider. SALVADOR educated this worker will assist with DC planning, if pt can return home at time of DC or if pt will need additional time prior to home. Pt/family expressed understanding. SALVADOR will continue to follow for DC planning. Sita Alejnadre MSW DRESS DESIGNER
--- NOTE | 2025-08-21 14:54 | NURSING ---
Rocio with [facility] states they noticed patient coughing during care plan meeting and that patient stated food was stuck in her throat. Rocio and Cara with ST wondered if CXR would be appropriate? This nurse had not noted coughing other than clearing throat after eating but assessed patient and she states she was only coughing because she had trouble with a bite of omelette this AM and ended up not eating it. This nurse asks if patient would be willing to have a CXR if Dr. Quevedo ordered it for aspiration and she states she is fine and never wants to get another CXR if she doesn't have to because it was so painful the last time she needed one. Lungs sound clear at this time. Patient has been refusing to drink thickened water but will drink thickened other beverages. Educated on importance of taking small sips and ordering foods that are softer and easier to swallow. Patient agreed.
[2025-08-21] MEDS: 0.9% Saline Lock 10 ML Syringe IV ×2 (18:04→22:07)
[2025-08-22 06:12] LABS: Anion Gap 7 (5-15); BUN 9 mg/dL (4-19); BUN/Creat Ratio 21.2 RATIO (10-20); Calcium,Total 8.5 mg/dL (7.6-11.0); Carbon Dioxide 26.8 mmol/L (21.0-32.0); Chloride 102 mmol/L (98-108); Estimated Creatinine Clearance 44.48 ml/min (50-250); Glucose 89 mg/dL (70-99); Potassium 4.3 mmol/L (3.3-5.1)
--- NOTE | 2025-08-22 08:12 | PCM.PN.SRG ---
Subjective Subjective Patient seen this morning at TCU bedside. She was awake sitting on her back with pillows propping her hips. She states she had no issues with swallowing her breakfast. She denies shortness of breath or chest pain. She had her care team meeting yesterday and voiced if it came down to needing a PICC line she does not wish to have it. She worked with therapies yesterday. Objective Data Objective Data Vital Signs: Vital Signs Temp Pulse Resp BP Pulse Ox O2 Del Method 98.5 F 69 16 130/72 H 93 Room Air 08/21/25 08:00 08/21/25 08:00 08/21/25 08:00 08/21/25 08:00 08/21/25 08:00 08/21/25 10:00 Oxygen Delivery Method Room Air Weight: 141 lb 0.017 oz Intake & Output: Intake and Output for Last 24 Hours 08/20/25 08/21/25 08/22/25 23:59 23:59 23:59 Intake Total 480 / 480 360 / 360 Balance 480 / 480 360 / 360 Lab / Micro Data Attestation: I reviewed the patient's lab results. 08/19/25 05:07 08/22/25 05:37 Labs: Laboratory Results - last 24 hr 08/22/25 05:37: Sodium 135, Potassium 4.3, Chloride 102, Carbon Dioxide 26.8, Anion Gap 7, BUN 9, Creatinine 0.42 L, Estim Creat Clear Calc 44.48 L, Est GFR (MDRD) Non-Af 97, BUN/Creatinine Ratio 21.2 H, Glucose 89, Calcium 8.5 Physical Exam Narrative Afebrile/VSS. Lying slightly upright in bed with 2 pillows propping her hips, eating her breakfast Wound VAC on, good seal and nothing in cartridge. No leg swelling. Assessment & Plan Assessment/Plan (1) Stage 4 skin ulcer of sacral region: PLAN: POD #8 Flap reconstruction , POD #10 stage 4 sacral ulcer and bone excision Pain control: per MAR Incisional VAC since 08/20 Activity: Continue strict pressure offloading (No pressure on the sacral area). Must be lateral position or prone while in bed. I reiterated the importance of changing positions and being in lateral position or prone to offload pressure. I discussed her flap is at risk for pressure injury and failure should she continue to put weight on her sacrum. She verbalized understanding of risks. Continue pressure offloading bed (currently in use) Continue frequent walks and therapy to prevent DVT/PE MSSA Per ID Plan on 6 weeks abx, likely can do po given good source control (doxy 100mg bid and augmentin 875mg bid). Dysphagia: Speech therapist following, again declined full instrumental assessment. On regular texture with thickened liquids. Incentive spirometry ordered and encouraged use during her stay. DVT ppx: Resumed Eliquis. Plastics continue to follow. (2) Sacral osteomyelitis: Charges/Coding Procedures Integumentary 111xxx-113xx: 26414 Global Visit
[2025-08-22 08:17] VITALS: BP 118/67; PULSE 76; RESP 17; TEMP 37.2; O2SAT 94
[2025-08-22] MEDS: Potassium Chloride Oral Tablet 20 MEQ 40 MEQ PO ×2 (08:20→17:49)
[2025-08-22] MEDS: APIXABAN 5 MG TABLET PO ×2 (08:21→22:06)
[2025-08-22] MEDS: Cholecalciferol (VIT D3) 25 MCG TABLET (1,000 UNITS) 50 MCG PO (08:21)
[2025-08-22] MEDS: Senna/Docusate Sodium 1 Tablet PO ×2 (08:23→22:06)
[2025-08-22] MEDS: Amox/Clav 400mg/5ml Susp 800 MG PO ×2 (08:23→17:49)
[2025-08-22] MEDS: 0.9% Saline Lock 10 ML Syringe IV ×2 (14:30→22:10)
--- NOTE | 2025-08-22 17:45 | NURSING ---
Leaking noted to Provena wound vac. RN reinforced with drape. Seal was obtained. Wound vac functioning properly at this time. Patient tolerated task well. No further needs. Call light within reach.
--- NOTE | 2025-08-23 07:38 | PCM.PN.SRG ---
Subjective Subjective Patient seen this morning at TCU bedside with therapist getting ready to take her for a walk. Her VAC seal was leaking yesterday afternoon and reinforced by wound RN. It started leaking again when she was moving to standup from bed. No fevers. No other concerns overnight. Returned later in the morning after wound RN taken down the wound VAC. Her daugther and [id number] were visiting her. She states since having the VAC off her sacrum feels less tender with the tape pulling. She has been using her incentive spirometer frequently throughout the day. Objective Data Objective Data Vital Signs: Vital Signs Temp Pulse Resp BP Pulse Ox O2 Del Method 98.9 F 76 17 118/67 94 Room Air 08/22/25 08:17 08/22/25 08:17 08/22/25 08:17 08/22/25 08:17 08/22/25 08:17 08/22/25 13:44 Oxygen Delivery Method Room Air Weight: 141 lb 0.017 oz Intake & Output: Intake and Output for Last 24 Hours 08/21/25 08/22/25 08/23/25 23:59 23:59 23:59 Intake Total 360 / 360 720 / 720 Balance 360 / 360 720 / 720 Lab / Micro Data 08/19/25 05:07 08/22/25 05:37 Physical Exam Narrative Afebrile/VSS Moderate assist to go from lying to sitting on EOB. Seal leak noted to be at gluteal cleft with drape lifing from skin with position changes. Attempted to reinforce with drape but was unsucessful. Seal leak resolves when she's sitting on her bottom. No leg edema Incision is clean, dry, intact. No infection or fluid collection. Sacrum shows signs early signs of pressure injury but blanchable throughout as well as the flap tip. Non significant tenderness to palpation. Assessment & Plan Assessment/Plan (1) Stage 4 skin ulcer of sacral region: PLAN: POD #9 Flap reconstruction , POD #11 stage 4 sacral ulcer and bone excision Pain control: per MAR Incisional VAC since 08/20. Seal leak yesterday and again this morning that's positional. Wound RN reassessed and found inner portion of the drape soiled with stool therefore entire wound VAC was taken down. Activity: Continue strict pressure offloading (No pressure on the sacral area). Must be lateral position or prone while in bed. I reiterated the importance of changing positions and being in lateral position or prone to offload pressure. She was agreeable to lateral position with her family members' encouragement. Continue pressure offloading bed (currently in use) Continue frequent walks and therapy to prevent DVT/PE MSSA Per ID Plan on 6 weeks abx, likely can do po given good source control (doxy 100mg bid and augmentin 875mg bid). Dysphagia: Speech therapist following, again declined full instrumental assessment. On regular texture with thickened liquids. Encouraged Incentive spirometry DVT ppx: Resumed Eliquis. Plastics continue to follow. (2) Sacral osteomyelitis: Charges/Coding Procedures Integumentary 111xxx-113xx: 47821 Global Visit
[2025-08-23 07:44] VITALS: BP 117/72; PULSE 77; RESP 16; TEMP 36.3; O2SAT 94
[2025-08-23] MEDS: Potassium Chloride Oral Tablet 20 MEQ 40 MEQ PO ×2 (07:46→17:44)
[2025-08-23] MEDS: APIXABAN 5 MG TABLET PO ×2 (07:46→21:11)
[2025-08-23] MEDS: Cholecalciferol (VIT D3) 25 MCG TABLET (1,000 UNITS) 50 MCG PO (07:47)
[2025-08-23] MEDS: 0.9% Saline Lock 10 ML Syringe IV (07:50)
[2025-08-23] MEDS: Senna/Docusate Sodium 1 Tablet PO (07:50)
[2025-08-23] MEDS: Amox/Clav 400mg/5ml Susp 800 MG PO ×2 (07:50→17:47)
--- NOTE | 2025-08-23 10:59 | MDS.RN ---
Pain assessment for MDS complete.
--- NOTE | 2025-08-23 11:50 | CPS ---
Pt. busy with Nurse
--- NOTE | 2025-08-23 11:51 | CPS ---
Pt. busy with Nurse
--- NOTE | 2025-08-23 15:28 | CPS ---
Pt. refused, feeling weak and tired
[2025-08-23 21:10] VITALS: BP 120/68; PULSE 83; O2SAT 95
[2025-08-24] MEDS: 0.9% Saline Lock 10 ML Syringe IV ×2 (05:45→13:16)
[2025-08-24 09:08] VITALS: BP 114/65; PULSE 83; RESP 16; TEMP 37; O2SAT 94
[2025-08-24] MEDS: Amox/Clav 400mg/5ml Susp 800 MG PO ×2 (09:11→16:50)
[2025-08-24] MEDS: Potassium Chloride Oral Tablet 20 MEQ 40 MEQ PO ×2 (09:12→16:51)
[2025-08-24] MEDS: Cholecalciferol (VIT D3) 25 MCG TABLET (1,000 UNITS) 50 MCG PO (09:13)
[2025-08-24] MEDS: APIXABAN 5 MG TABLET PO ×2 (09:13→22:00)
[2025-08-24] MEDS: Senna/Docusate Sodium 1 Tablet PO ×2 (09:15→22:01)
[2025-08-25 08:56] VITALS: BP 108/70; PULSE 88; RESP 16; TEMP 36.7; O2SAT 97
[2025-08-25] MEDS: Amox/Clav 400mg/5ml Susp 800 MG PO ×2 (08:58→17:47)
[2025-08-25] MEDS: Potassium Chloride Oral Tablet 20 MEQ 40 MEQ PO ×2 (09:00→17:47)
[2025-08-25] MEDS: Senna/Docusate Sodium 1 Tablet PO ×2 (09:01→21:31)
[2025-08-25] MEDS: Cholecalciferol (VIT D3) 25 MCG TABLET (1,000 UNITS) 50 MCG PO (09:01)
[2025-08-25] MEDS: APIXABAN 5 MG TABLET PO ×2 (09:01→21:29)
[2025-08-26 05:45] LABS: Hematocrit 43.4 % (37-47); Hemoglobin 14.2 g/dL (12.0-15.0); Immature Granulocytes Count 0.030 X10^3/uL (0.0-0.0); Mean Corp Hgb Conc 32.7 g/dL (32-36); Mean Corpuscular Volume 88.8 fL (81-99); Mean Platelet Vol. 10.7 fl (6.2-12.0); NRBC Flagged by Analyzer 0 % (0-5); Platelet Count 260 K/mm3 (150-450); RBC Distribution Width CV 16.5 % (11.6-14.6); RBC Distribution Width SD 53.2 fl (35.1-43.9); Red Blood Count 4.89 M/mm3 (4.2-5.4); White Blood Count 8.4 K/mm3 (4.4-11.0)
[2025-08-26 06:19] LABS: Anion Gap 8 (5-15); BUN 13 mg/dL (4-19); BUN/Creat Ratio 19.0 RATIO (10-20); Calcium,Total 9.2 mg/dL (7.6-11.0); Carbon Dioxide 24.9 mmol/L (21.0-32.0); Chloride 103 mmol/L (98-108); Estimated Creatinine Clearance 44.48 ml/min (50-250); Glucose 100 mg/dL (70-99); Potassium 5.6 mmol/L (3.3-5.1)
--- NOTE | 2025-08-26 07:42 | RAD_ITS ---
PROCEDURE: CHEST PA AND LATERAL 08/26/2025 REASON FOR EXAM: COUGH. TECHNIQUE: Procedure Code: RADCXR Modality: DX Procedure: CHEST PA AND LATERAL COMPARISON: None FINDINGS: Heart size is within normal limits. There is severe kyphosis with midthoracic compression deformities, age-indeterminate. Hardware is partly visible in the lower lumbar spine. Atelectasis or scar is present in the right midlung and left lung base. There is no pneumothorax. There is no significant effusion. Aortic calcifications are noted. Hardware is noted in the right shoulder. RAD/Chest PA and Lateral IMPRESSION: There is severe kyphosis with midthoracic compression deformities, age-indeterm inate. MRI or bone scan could be helpful to determine chronicity if clinically indicated. Atelectasis or scar is present in the right midlung and left lung base. Reading Location: [facility]
[2025-08-26 08:12] VITALS: BP 118/71; PULSE 85; RESP 17; TEMP 36.3; O2SAT 96
[2025-08-26] MEDS: Amox/Clav 400mg/5ml Susp 800 MG PO ×2 (08:16→16:56)
[2025-08-26] MEDS: APIXABAN 5 MG TABLET PO ×2 (08:17→21:19)
[2025-08-26] MEDS: Cholecalciferol (VIT D3) 25 MCG TABLET (1,000 UNITS) 50 MCG PO (08:17)
--- NOTE | 2025-08-26 08:53 | NURSING ---
A&P Technician Note; [facility] for 08/25/2025 Complete
--- NOTE | 2025-08-26 09:54 | PN.SURG_ITS ---
Subjective Subjective Patient seen and examined today. Plastic surgery team immediately noticed that she was laying supine with the bed slightly flexed with complete dependence on the flap area (placing pressure over the flap). We discussed with her the need for pressure offloading. I also discussed with the nursing staff which report that she has been resistant to laying in the lateral positions or prone positions, and insist on laying supine. I talked the patient about the concerns I have for flap loss and wound formation. She has some congestion and a chest x-ray was ordered today. Objective Data Objective Data Vital Signs: Vital Signs Temp Pulse Resp BP Pulse Ox O2 Del Method 97.3 F L 85 17 118/71 96 Room Air 08/26/25 08:12 08/26/25 08:12 08/26/25 08:12 08/26/25 08:12 08/26/25 08:12 08/26/25 08:12 Oxygen Delivery Method Room Air Weight: 141 lb 0.017 oz Intake & Output: Intake and Output for Last 24 Hours 08/24/25 08/25/25 08/26/25 23:59 23:59 23:59 Intake Total 576 / 576 240 / 240 Balance 576 / 576 240 / 240 Lab / Micro Data 08/26/25 05:05 08/26/25 05:05 Labs: Laboratory Results - last 24 hr 08/26/25 05:05: WBC 8.4, RBC 4.89, Hgb 14.2, Hct 43.4, MCV 88.8, MCH 29.0, MCHC 32.7, RDW Std Deviation 53.2 H, RDW Coeff of Kip 16.5 H, Plt Count 260, MPV 10.7, Immature Gran % (Auto) 0.400, Neut % (Auto) 62.4, Lymph % (Auto) 23.8, M oscar % (Auto) 11.7 H, Eos % (Auto) 1.1, Baso % (Auto) 0.6, Absolute Neuts (auto) 5.2, Absolute Lymphs (auto) 1.99, Nucleated RBC % 0, Sodium 136, Potassium 5.6 H , Chloride 103, Carbon Dioxide 24.9, Anion Gap 8, BUN 13, Creatinine 0.71, Estim Creat Clear Calc 44.48 L, Est GFR (MDRD) Non-Af 85, BUN/Creatinine Ratio 19.0, G lucose 100 H, Calcium 9.2 Radiography Diagnostic Testing: Radiology Impression Chest X-Ray 08/26/25 07:42 IMPRESSION: There is severe kyphosis with midthoracic compression deformities, age- indeterminate. MRI or bone scan could be helpful to determine chronicity if clinically indicated. Atelectasis or scar is present in the right midlung and left lung base. [facility] Physical Exam Narrative 750 cc on I-S today No increased work of breathing Sacral region examined: Flap appears to be overall viable but is dehiscing superiorly. No fluid collections. There is superficial desquamation of the skin overlying the flap consistent with significant pressure. No swelling in the lower extremities Discussed SCD placement with nursing (placing) Assessment & Plan Assessment/Plan (1) Pressure ulcer of sacral region, stage 4: PLAN: Discussed with the patient and the nursing team importance of pressure offloading. I also had a meeting with the patient's family about pressure offloading. If she is unable to follow instructions for pressure offloading, we will continue to have issues with the flap (above-noted dehiscence) and flap loss with recurrence of the wound. The family and the nursing team are going to work with her more on positioning. In the meantime continue to optimize nutrition. Continue SCDs and apixaban Plastics will continue to follow Right dressing for now on the flap Charges/Coding Procedures Integumentary 111xxx-113xx: 46343 Global Visit
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
[2025-08-26] MEDS: Tuberculin,Purif.prot.deriv. 50 TU/ML Vial 0.1 ML ID (13:37)
--- NOTE | 2025-08-26 14:12 | WOUNDNOTE ---
wound photo: sacrum
[2025-08-27 05:45] LABS: Hematocrit 42.2 % (37-47); Hemoglobin 13.7 g/dL (12.0-15.0); Immature Granulocytes Count 0.030 X10^3/uL (0.0-0.0); Mean Corp Hgb Conc 32.5 g/dL (32-36); Mean Corpuscular Volume 89.2 fL (81-99); Mean Platelet Vol. 11.1 fl (6.2-12.0); NRBC Flagged by Analyzer 0 % (0-5); Platelet Count 244 K/mm3 (150-450); RBC Distribution Width CV 16.4 % (11.6-14.6); RBC Distribution Width SD 53.5 fl (35.1-43.9); Red Blood Count 4.73 M/mm3 (4.2-5.4); White Blood Count 7.8 K/mm3 (4.4-11.0)
[2025-08-27 06:30] LABS: Anion Gap 9 (5-15); BUN 18 mg/dL (4-19); BUN/Creat Ratio 25.8 RATIO (10-20); Calcium,Total 9.0 mg/dL (7.6-11.0); Carbon Dioxide 26.1 mmol/L (21.0-32.0); Chloride 103 mmol/L (98-108); Estimated Creatinine Clearance 44.48 ml/min (50-250); Glucose 99 mg/dL (70-99); Potassium 4.4 mmol/L (3.3-5.1)
--- NOTE | 2025-08-27 07:08 | NURSING ---
Offered covid vaccine, VIS provided. Resident declines.
[2025-08-27] MEDS: Cholecalciferol (VIT D3) 25 MCG TABLET (1,000 UNITS) 50 MCG PO (08:09)
[2025-08-27] MEDS: Senna/Docusate Sodium 1 Tablet PO ×2 (08:10→20:37)
[2025-08-27] MEDS: APIXABAN 5 MG TABLET PO ×2 (08:10→20:36)
[2025-08-27] MEDS: Amox/Clav 400mg/5ml Susp 800 MG PO ×2 (08:25→17:46)
[2025-08-27 08:30] VITALS: BP 137/55; PULSE 76; RESP 19; TEMP 36.4; O2SAT 96
--- NOTE | 2025-08-27 11:01 | WOUNDNOTE ---
wound photo: sacrum
--- NOTE | 2025-08-27 11:18 | PN.SURG_ITS ---
Subjective Subjective Patient was seen offloading her wound while in bed. She states she's tolerating the position changes and offloading. She doesn't feel as winded today and continues to utilize her incentive spirometry. Objective Data Objective Data Vital Signs: Vital Signs Temp Pulse Resp BP Pulse Ox O2 Del Method 97.6 F L 76 19 H 137/55 H 96 Room Air 08/27/25 08:30 08/27/25 08:30 08/27/25 08:30 08/27/25 08:30 08/27/25 08:30 08/27/25 10:19 Oxygen Delivery Method Room Air Weight: 141 lb 0.017 oz Intake & Output: Intake and Output for Last 24 Hours 08/25/25 08/26/25 08/27/25 23:59 23:59 23:59 Intake Total 240 / 240 240 / 240 Balance 240 / 240 240 / 240 Lab / Micro Data Attestation: I reviewed the patient's lab results. 08/27/25 05:14 08/27/25 05:14 Labs: Laboratory Results - last 24 hr 08/27/25 05:14: WBC 7.8, RBC 4.73, Hgb 13.7, Hct 42.2, MCV 89.2, MCH 29.0, MCHC 32.5, RDW Std Deviation 53.5 H, RDW Coeff of Kip 16.4 H, Plt Count 244, MPV 11.1, Immature Gran % (Auto) 0.400, Neut % (Auto) 63.8, Lymph % (Auto) 23.2, M oscar % (Auto) 10.1 H, Eos % (Auto) 1.7, Baso % (Auto) 0.8, Absolute Neuts (auto) 5.0, Absolute Lymphs (auto) 1.81, Nucleated RBC % 0, Sodium 138, Potassium 4.4, Chloride 103, Carbon Dioxide 26.1, Anion Gap 9, BUN 18, Creatinine 0.71, Estim Creat Clear Calc 44.48 L, Est GFR (MDRD) Non-Af 84, BUN/Creatinine Ratio 25.8 H, Glucose 99, Calcium 9.0 Physical Exam Narrative Afebrile/VSS Lying on her side slightly. Less erythematous, incision in the middle is holding, no fluid collection. Not infected Incision is dry, aquacel dressing in place. Assessment & Plan Assessment/Plan (1) Stage 4 skin ulcer of sacral region: PLAN: POD #13 Flap reconstruction , POD #15 stage 4 sacral ulcer and bone excision Pain control: per MAR Incisional VAC since 08/20 and taken down on 11. Activity: Continue strict pressure offloading (No pressure on the sacral area). Must be lateral position or prone while in bed. Continue pressure offloading bed (currently in use) Continue frequent walks and therapy to prevent DVT/PE MSSA Per ID Plan on 6 weeks abx, likely can do po given good source control (doxy 100mg bid and augmentin 875mg bid). Dysphagia: Speech therapist following, again declined full instrumental assessment. On regular texture with thickened liquids. Xray yesterday was negative for acute processes. Encouraged Incentive spirometry DVT ppx: SCD's and Eliquis. Plastics continue to follow. (2) Sacral osteomyelitis: Charges/Coding Procedures Integumentary 111xxx-113xx: 86203 Global Visit
--- NOTE | 2025-08-27 12:23 | MDS.RN ---
Information for the MDS was obtained from review of the clinical record, interview of resident, staff, and direct observation of resident?s care.
[2025-08-27 15:41] VITALS: BMI 25.4
[2025-08-28 06:20] LABS: Hematocrit 43.5 % (37-47); Hemoglobin 13.9 g/dL (12.0-15.0); Immature Granulocytes Count 0.020 X10^3/uL (0.0-0.0); Mean Corp Hgb Conc 32.0 g/dL (32-36); Mean Corpuscular Volume 90.4 fL (81-99); Mean Platelet Vol. 11.3 fl (6.2-12.0); NRBC Flagged by Analyzer 0 % (0-5); Platelet Count 286 K/mm3 (150-450); RBC Distribution Width CV 16.1 % (11.6-14.6); RBC Distribution Width SD 53.1 fl (35.1-43.9); Red Blood Count 4.81 M/mm3 (4.2-5.4); White Blood Count 7.3 K/mm3 (4.4-11.0)
[2025-08-28 06:49] LABS: Anion Gap 10 (5-15); BUN 20 mg/dL (4-19); BUN/Creat Ratio 34.7 RATIO (10-20); Calcium,Total 8.7 mg/dL (7.6-11.0); Carbon Dioxide 26.3 mmol/L (21.0-32.0); Chloride 102 mmol/L (98-108); Estimated Creatinine Clearance 41.45 ml/min (50-250); Glucose 105 mg/dL (70-99); Potassium 4.1 mmol/L (3.3-5.1)
[2025-08-28] MEDS: Senna/Docusate Sodium 1 Tablet PO ×2 (07:55→21:33)
[2025-08-28] MEDS: Cholecalciferol (VIT D3) 25 MCG TABLET (1,000 UNITS) 50 MCG PO (07:57)
[2025-08-28] MEDS: APIXABAN 5 MG TABLET PO ×2 (07:59→21:32)
[2025-08-28] MEDS: Amox/Clav 400mg/5ml Susp 800 MG PO ×2 (08:15→17:45)
[2025-08-28 10:00] VITALS: BP 122/72; PULSE 73; RESP 16; TEMP 36.8; O2SAT 96
--- NOTE | 2025-08-28 13:58 | WOUNDNOTE ---
wound photo: sacrum
--- NOTE | 2025-08-28 14:42 | PCM.PN.SRG ---
Subjective Subjective Patient seen this afternoon at TCU. Wound nurse states there's drainage at her incision and she's lightened the ABD dressing tape as it pulls and causes discomfort. She has been laying on her side. Objective Data Objective Data Vital Signs: Vital Signs Temp Pulse Resp BP Pulse Ox O2 Del Method 98.3 F 73 16 122/72 H 96 Room Air 08/28/25 10:00 08/28/25 10:00 08/28/25 10:00 08/28/25 10:00 08/28/25 10:00 08/28/25 10:00 Oxygen Delivery Method Room Air Weight: 121 lb 2 oz Body Mass Index (BMI) 25.4 Intake & Output: Intake and Output for Last 24 Hours 08/26/25 08/27/25 08/28/25 23:59 23:59 23:59 Intake Total 240 / 240 360 / 360 120 / 120 Balance 240 / 240 360 / 360 120 / 120 Lab / Micro Data Attestation: I reviewed the patient's lab results. 08/28/25 05:17 08/28/25 05:17 Labs: Laboratory Results - last 24 hr 08/28/25 05:17: WBC 7.3, RBC 4.81, Hgb 13.9, Hct 43.5, MCV 90.4, MCH 28.9, MCHC 32.0, RDW Std Deviation 53.1 H, RDW Coeff of Kip 16.1 H, Plt Count 286, MPV 11.3, Immature Gran % (Auto) 0.300, Neut % (Auto) 56.9, Lymph % (Auto) 32.0, [place] % (Auto) 8.1, Eos % (Auto) 1.9, Baso % (Auto) 0.8, Absolute Neuts (auto) 4.1, Absolute Lymphs (auto) 2.33, Nucleated RBC % 0, Sodium 138, Potassium 4.1, Chloride 102, Carbon Dioxide 26.3, Anion Gap 10, BUN 20 H, Creatinine 0.57 L, Estim Creat Clear Calc 41.45 L, Est GFR (MDRD) Non-Af 90, BUN/Creatinine Ratio 34.7 H, Glucose 105 H, Calcium 8.7 Physical Exam Narrative Afebrile/VSS One person assist to turn in bed Lying on her side with wedge. Small area of dehiscence at the top of the incision. No active or expressible drainage. No fluid collection palpated. Remainder of the incision is intact, clean and dry. SCDs in place, no leg swelling. Assessment & Plan Assessment/Plan (1) Stage 4 skin ulcer of sacral region: PLAN: POD #14 Flap reconstruction , POD #16 stage 4 sacral ulcer and bone excision Pain control: per MAR Incisional VAC since 08/20 and taken down on 11. Activity: Continue strict pressure offloading (No pressure on the sacral area). Must be lateral position or prone while in bed. Continue pressure offloading bed (currently in use) Continue frequent walks and therapy to prevent DVT/PE MSSA Per ID Plan on 6 weeks abx, likely can do po given good source control (doxy 100mg bid and augmentin 875mg bid). Dysphagia: Speech therapist following, again declined full instrumental assessment. On regular texture with thickened liquids. Xray yesterday was negative for acute processes. Encouraged Incentive spirometry DVT ppx: SCD's and Eliquis. Plastics continue to follow. (2) Sacral osteomyelitis: Charges/Coding Procedures Integumentary 111xxx-113xx: 98623 Global Visit
[2025-08-28 19:45] VITALS: PULSE 76; O2SAT 97
[2025-08-28 21:30] VITALS: BP 120/61; PULSE 78
[2025-08-29 05:59] LABS: Hematocrit 40.9 % (37-47); Hemoglobin 13.3 g/dL (12.0-15.0); Immature Granulocytes Count 0.020 X10^3/uL (0.0-0.0); Mean Corp Hgb Conc 32.5 g/dL (32-36); Mean Corpuscular Volume 89.9 fL (81-99); Mean Platelet Vol. 10.8 fl (6.2-12.0); NRBC Flagged by Analyzer 0 % (0-5); Platelet Count 233 K/mm3 (150-450); RBC Distribution Width CV 15.9 % (11.6-14.6); RBC Distribution Width SD 52.1 fl (35.1-43.9); Red Blood Count 4.55 M/mm3 (4.2-5.4); White Blood Count 5.5 K/mm3 (4.4-11.0)
[2025-08-29 06:59] LABS: Anion Gap 9 (5-15); BUN 21 mg/dL (4-19); BUN/Creat Ratio 36.2 RATIO (10-20); Calcium,Total 8.9 mg/dL (7.6-11.0); Carbon Dioxide 26.7 mmol/L (21.0-32.0); Chloride 103 mmol/L (98-108); Estimated Creatinine Clearance 41.45 ml/min (50-250); Glucose 86 mg/dL (70-99); Potassium 4.1 mmol/L (3.3-5.1)
[2025-08-29] MEDS: APIXABAN 5 MG TABLET PO ×2 (10:01→21:27)
[2025-08-29] MEDS: Cholecalciferol (VIT D3) 25 MCG TABLET (1,000 UNITS) 50 MCG PO (10:02)
[2025-08-29] MEDS: Amox/Clav 400mg/5ml Susp 800 MG PO ×2 (10:05→17:55)
[2025-08-29 10:23] VITALS: BP 115/72; PULSE 72; RESP 18; TEMP 36.4; O2SAT 98
[2025-08-29 13:00] VITALS: PULSE 72; RESP 16; O2SAT 98
--- NOTE | 2025-08-29 16:23 | PN.SURG_ITS ---
Subjective Subjective Patient seen this afternoon at TCU. She has been somewhat laying on her wound when I walked in. She states she's had a busy day today. Does not voice any concerns. Objective Data Objective Data Vital Signs: Vital Signs Temp Pulse Resp BP Pulse Ox O2 Del Method 97.6 F L 72 16 115/72 98 Room Air 08/29/25 10:23 08/29/25 13:00 08/29/25 13:00 08/29/25 10:23 08/29/25 13:00 08/29/25 13:00 Oxygen Delivery Method Room Air Weight: 121 lb 2 oz Body Mass Index (BMI) 25.4 Intake & Output: Intake and Output for Last 24 Hours 08/27/25 08/28/25 08/29/25 23:59 23:59 23:59 Intake Total 360 / 360 120 / 120 Balance 360 / 360 120 / 120 Lab / Micro Data Attestation: I reviewed the patient's lab results. 08/29/25 05:11 08/29/25 05:11 Labs: Laboratory Results - last 24 hr 08/29/25 05:11: WBC 5.5, RBC 4.55, Hgb 13.3, Hct 40.9, MCV 89.9, MCH 29.2, MCHC 32.5, RDW Std Deviation 52.1 H, RDW Coeff of Kip 15.9 H, Plt Count 233, MPV 10.8, Immature Gran % (Auto) 0.400, Neut % (Auto) 52.9, Lymph % (Auto) 35.2, [place] % (Auto) 8.6, Eos % (Auto) 2.0, Baso % (Auto) 0.9, Absolute Neuts (auto) 2.9, Absolute Lymphs (auto) 1.93, Nucleated RBC % 0, Sodium 138, Potassium 4.1, Chloride 103, Carbon Dioxide 26.7, Anion Gap 9, BUN 21 H, Creatinine 0.58 L, E stim Creat Clear Calc 41.45 L, Est GFR (MDRD) Non-Af 90, BUN/Creatinine Ratio 36.2 H, Glucose 86, Calcium 8.9 Physical Exam Narrative Afebrile/VSS One person assist to turn in bed Incision does not appear as red. Small area of dehiscence at the top of the incision. No active or expressible drainage. No fluid collection palpated. Slight dehiscence at middle of her incision. Remainder of the incision is intact, clean and dry. SCDs in place, no leg swelling. Assessment & Plan Assessment/Plan (1) Stage 4 skin ulcer of sacral region: PLAN: POD #15 Flap reconstruction , POD #17 stage 4 sacral ulcer and bone excision Pain control: per MAR Incisional VAC since 08/20 and taken down on 11. Activity: Continue strict pressure offloading (No pressure on the sacral area). Must be lateral position or prone while in bed. Continue pressure offloading bed (currently in use) Continue frequent walks and therapy to prevent DVT/PE MSSA Per ID Plan on 6 weeks abx, likely can do po given good source control (doxy 100mg bid and augmentin 875mg bid). Dysphagia: Speech therapist following, again declined full instrumental assessment. On regular texture with thickened liquids. Xray yesterday was negative for acute processes. Encouraged Incentive spirometry DVT ppx: SCD's and Eliquis. Plastics continue to follow. (2) Sacral osteomyelitis: Charges/Coding Procedures Integumentary 111xxx-113xx: 59914 Global Visit
[2025-08-29] MEDS: Senna/Docusate Sodium 1 Tablet PO (21:27)
[2025-08-30] MEDS: Amox/Clav 400mg/5ml Susp 800 MG PO ×2 (08:39→17:47)
[2025-08-30] MEDS: Senna/Docusate Sodium 1 Tablet PO (08:40)
[2025-08-30] MEDS: APIXABAN 5 MG TABLET PO ×2 (08:41→21:36)
[2025-08-30] MEDS: Cholecalciferol (VIT D3) 25 MCG TABLET (1,000 UNITS) 50 MCG PO (08:42)
[2025-08-30 10:00] VITALS: BP 121/79; PULSE 77; RESP 16; TEMP 36.9; O2SAT 97
--- NOTE | 2025-08-30 10:43 | WOUNDNOTE ---
wound photo: sacrum
--- NOTE | 2025-08-30 11:29 | PCM.PN.SRG ---
Subjective Subjective Doing well overall and reports ambulating well with therapy and doing a lot of therapy. Pain is controlled. She feels well Objective Data Objective Data Vital Signs: Vital Signs Temp Pulse Resp BP Pulse Ox O2 Del Method 97.6 F L 72 16 115/72 98 Room Air 08/29/25 10:23 08/29/25 13:00 08/29/25 13:00 08/29/25 10:23 08/29/25 13:00 08/29/25 13:00 Oxygen Delivery Method Room Air Weight: 121 lb 2 oz Body Mass Index (BMI) 25.4 Intake & Output: Intake and Output for Last 24 Hours 08/28/25 08/29/25 08/30/25 23:59 23:59 23:59 Intake Total 120 / 120 Balance 120 / 120 Lab / Micro Data 08/29/25 05:11 08/29/25 05:11 Physical Exam Narrative No swelling in the bilateral lower extremities SCDs on and activated Patient laying on the flap at the time of our exam (laying supine and putting pressure on the flap) Sacral flap examined and the superior portion has completely dehisced. Sutures were removed. Wound was packed with saline soaked Kerlix. The wound is not down to the bone and there appears to be coverage over the bone. Assessment & Plan Assessment/Plan (1) Pressure ulcer of sacral region, stage 4: PLAN: Dehiscence of the superior aspect of the flap Plan for twice daily wet-to-dry dressings Anticipate healing by secondary intention with every 2 hour turns and continuing pressure offloading bed (absolutely no supine at this point as we cannot put pressure on the wound) I reiterated to the patient the importance of pressure offloading She will continue to attempt higher protein diet (she ate some eggs this morning). The flap is viable but the area has dehisced, although there is coverage over the bone which is encouraging. She will continue antibiotics per ID (doxycycline and Augmentin). Plastic surgery to follow
[2025-08-30 21:30] VITALS: PULSE 78; RESP 17; O2SAT 96
--- NOTE | 2025-08-31 01:06 | NURSING ---
During HS med pass, this nurse found a cup of AM meds in pt's medbox. Cup contained pt's morning Eliquis, senna, and multivitamin. Pt stated she was feeling nauseous part way through taking her morning meds, requested to take a break, and the nurse planned to come back and give her the rest later but never did. This nurse disposed of cup of meds in [facility].
[2025-08-31] MEDS: Amox/Clav 400mg/5ml Susp 800 MG PO ×2 (09:31→17:38)
[2025-08-31] MEDS: APIXABAN 5 MG TABLET PO ×2 (09:34→22:13)
[2025-08-31] MEDS: Cholecalciferol (VIT D3) 25 MCG TABLET (1,000 UNITS) 50 MCG PO (09:36)
[2025-08-31 09:45] VITALS: BP 113/83; PULSE 80; RESP 18; TEMP 36.5; O2SAT 97
[2025-08-31 16:00] VITALS: BP 124/60; PULSE 67; TEMP 36.2; O2SAT 94
[2025-08-31] MEDS: Senna/Docusate Sodium 1 Tablet PO (22:13)
--- NOTE | 2025-08-31 22:29 | NURSING ---
Wound care and dressing changed as ordered to sacrum. Minimal serosanguineous drainage on old dressing. No odor to drainage. Patient tolerated well.
[2025-09-01] MEDS: Amox/Clav 400mg/5ml Susp 800 MG PO ×2 (10:08→17:21)
[2025-09-01] MEDS: APIXABAN 5 MG TABLET PO ×2 (10:13→21:25)
[2025-09-01] MEDS: Senna/Docusate Sodium 1 Tablet PO (10:15)
[2025-09-01] MEDS: Cholecalciferol (VIT D3) 25 MCG TABLET (1,000 UNITS) 50 MCG PO (10:15)
[2025-09-01 10:24] VITALS: BP 130/61; PULSE 77; RESP 16; TEMP 36.4; O2SAT 97
--- NOTE | 2025-09-01 13:18 | NURSING ---
Addendum entered by Patel Keyes 09/01/25 13:29: JAVIER CLAY ALSO PUT IN NEW ORDERS FOR LAB. Original Note: IN TO SEE PT AND SEEN PT FLAT ON BOTTOM. SAID SOME THING TO PT AND PT STATED SHE KNEW AND IT WAS HARD TO STAY ON 1 SIDE. CHANGED DRESSING TO WOUND AND STATED WOULD LIKE ONLY 1 PIECE OF TAPE TO ABD DRESSING. ALSO TALKED TO PT ABOUT MAYBE PUTTING A WOUND VAC BACK ON. PT STATED SHE WAS OK WITH THAT. RN AWARE.
--- NOTE | 2025-09-01 13:19 | PCM.PN.SRG ---
Subjective Subjective Patient reports excellent nursing dressing changes (twice daily). She has been unable, however, to stay off of the sacral region (consistent lateral or prone positioning is not possible, she says - despite nursing's best efforts). Objective Data Objective Data Vital Signs: Vital Signs Temp Pulse Resp BP Pulse Ox O2 Del Method 97.5 F L 77 16 130/61 H 97 Room Air 09/01/25 10:24 09/01/25 10:24 09/01/25 10:24 09/01/25 10:24 09/01/25 10:24 09/01/25 10:24 Oxygen Delivery Method Room Air Weight: 121 lb 2 oz Body Mass Index (BMI) 25.4 Intake & Output: Intake and Output for Last 24 Hours 08/30/25 08/31/25 09/01/25 23:59 23:59 23:59 Intake Total 100 / 100 462 / 462 Balance 100 / 100 462 / 462 Lab / Micro Data 08/29/25 05:11 08/29/25 05:11 Physical Exam Narrative No swelling in the bilateral lower extremities SCDs on and activated Patient laying on the flap at the time of our exam (laying supine and putting pressure on the flap) Sacral flap examined and the superior portion has completely dehisced. Wound was packed with saline soaked Kerlix. The wound is not down to the bone and there appears to be coverage over the bone. No fluid collections/signs of infection. Assessment & Plan Assessment/Plan (1) Pressure ulcer of sacral region, stage 4: PLAN: Dehiscence of the superior aspect of the flap Plan for continued twice daily wet-to-dry dressings Anticipate healing by secondary intention with every 2 hour turns and continuing pressure offloading bed (absolutely no supine at this point as we cannot put pressure on the wound) I reiterated to the patient the importance of pressure offloading She will continue to attempt higher protein diet (she ate some eggs this morning). Consider DC home with wound VAC (can discuss tomorrow) The flap is viable but the area has dehisced, although there is coverage over the bone which is encouraging. She will continue antibiotics per ID (doxycycline and Augmentin). Plastic surgery to follow
[2025-09-01 21:20] VITALS: BP 115/78; PULSE 78
[2025-09-02 06:32] LABS: AST(SGOT) 41 U/L (<=31); Alanine Aminotransfer ALT/SGPT 8 U/L (<=34); Albumin, Serum 3.0 g/dL (3.4-4.8); Alkaline Phosphatase 219 U/L (35-104); Anion Gap 10 (5-15); BUN 15 mg/dL (4-19); BUN/Creat Ratio 27.5 RATIO (10-20); Calcium,Total 9.0 mg/dL (7.6-11.0); Carbon Dioxide 27.4 mmol/L (21.0-32.0); Chloride 100 mmol/L (98-108); Estimated Creatinine Clearance 41.45 ml/min (50-250); Globulin 3.4 g/dL (2.2-4.2); Glucose 92 mg/dL (70-99); Potassium 3.5 mmol/L (3.3-5.1)
[2025-09-02 09:40] VITALS: BP 118/73; PULSE 84; RESP 17; TEMP 36.6; O2SAT 96
[2025-09-02] MEDS: Amox/Clav 400mg/5ml Susp 800 MG PO ×2 (09:42→16:54)
[2025-09-02] MEDS: Cholecalciferol (VIT D3) 25 MCG TABLET (1,000 UNITS) 50 MCG PO (09:43)
[2025-09-02] MEDS: APIXABAN 5 MG TABLET PO ×2 (09:43→21:20)
--- NOTE | 2025-09-02 11:19 | PCM.PN.SRG ---
Subjective Subjective Patient seen with Dr. Cool and nurse at TCU bedside. Voices no concerns today. She's hoping to leave the hospital soon. Objective Data Objective Data Vital Signs: Vital Signs Temp Pulse Resp BP Pulse Ox O2 Del Method 97.9 F 84 17 118/73 96 Room Air 09/02/25 09:40 09/02/25 09:40 09/02/25 09:40 09/02/25 09:40 09/02/25 09:40 09/02/25 09:40 Oxygen Delivery Method Room Air Weight: 121 lb 2 oz Body Mass Index (BMI) 25.4 Intake & Output: Intake and Output for Last 24 Hours 08/31/25 09/01/25 09/02/25 23:59 23:59 23:59 Intake Total 462 / 462 580 / 580 120 / 120 Balance 462 / 462 580 / 580 120 / 120 Lab / Micro Data Attestation: I reviewed the patient's lab results. 08/29/25 05:11 09/02/25 05:10 Labs: Laboratory Results - last 24 hr 09/02/25 05:10: Sodium 137, Potassium 3.5, Chloride 100, Carbon Dioxide 27.4, Anion Gap 10, BUN 15, Creatinine 0.54 L, Estim Creat Clear Calc 41.45 L, Est GFR (MDRD) Non-Af 91, BUN/Creatinine Ratio 27.5 H, Glucose 92, Calcium 9.0, Total Bilirubin 0.70, AST 41 H, ALT 8, Alkaline Phosphatase 219 H, Total Protein 6.4, Albumin 3.0 L, Globulin 3.4, Albumin/Globulin Ratio 0.9 Physical Exam Narrative Afebrile/VSS Lower portion of the incision is healed. Mid incision is holding. Above and below the mid incision wound edge was cleaned up, excised biofilm and debris and removed residual sutures. Exposed bone underneath. No purulence or induration surrounding her wound. Covered with ABD pad and tape SCDs in place. No leg swelling. Assessment & Plan Assessment/Plan (1) Pressure ulcer of sacral region, stage 4: PLAN: Dehiscence of the superior aspect of the flap Plan for continued twice daily wet-to-dry dressings Anticipate healing by secondary intention with every 2 hour turns and continuing pressure offloading bed (absolutely no supine at this point as we cannot put pressure on the wound) Dr. Cool reiterated to the patient the importance of pressure offloading She will continue to attempt higher protein diet (she ate some eggs this morning). The flap is viable but the area has dehisced, although there is coverage over the bone which is encouraging. She will continue antibiotics per ID (doxycycline and Augmentin). Plastic surgery to follow Charges/Coding Procedures Integumentary 111xxx-113xx: [id number] Global Visit
[2025-09-02 15:33] VITALS: BP 98/57; PULSE 76; RESP 16; TEMP 36.5; O2SAT 95
[2025-09-02 16:53] VITALS: BP 107/74
--- NOTE | 2025-09-02 20:12 | NURSING ---
Dressing change to coccyx completed at this time per order. Moderate amount of serosanguineous drainage noted. Pt tolerated procedure well. Denies needs for further assistance at this time. Call light within reach.
[2025-09-02 21:19] VITALS: BP 116/79; PULSE 81
[2025-09-03 08:09] LABS: Prealbumin 8 mg/dL (9-32)
[2025-09-03 10:09] VITALS: BP 104/66; PULSE 79; RESP 16; TEMP 36.4; O2SAT 97
[2025-09-03] MEDS: APIXABAN 5 MG TABLET PO ×2 (10:13→22:06)
[2025-09-03] MEDS: Cholecalciferol (VIT D3) 25 MCG TABLET (1,000 UNITS) 50 MCG PO (10:14)
[2025-09-03] MEDS: Amox/Clav 400mg/5ml Susp 800 MG PO ×2 (10:17→16:51)
--- NOTE | 2025-09-03 10:38 | PCM.PN.SRG ---
Subjective Subjective Patient was walking back with therapies. Patient seen with Rocio wound RN. She was in pain yesterday from bedside wound debridement. Objective Data Objective Data Vital Signs: Vital Signs Temp Pulse Resp BP Pulse Ox O2 Del Method 97.5 F L 79 16 104/66 97 Room Air 09/03/25 10:09 09/03/25 10:09 09/03/25 10:09 09/03/25 10:09 09/03/25 10:09 09/03/25 10:09 Oxygen Delivery Method Room Air Weight: 121 lb 2 oz Body Mass Index (BMI) 25.4 Intake & Output: Intake and Output for Last 24 Hours 09/01/25 09/02/25 09/03/25 23:59 23:59 23:59 Intake Total 580 / 580 570 / 570 Balance 580 / 580 570 / 570 Lab / Micro Data Attestation: I reviewed the patient's lab results. Lab results narrative: Prealbumin is low of 8. 08/29/25 05:11 09/02/25 05:10 Labs: Laboratory Results - last 24 hr 09/02/25 05:10: Prealbumin 8 L Physical Exam Narrative Afebrile/VSS Moves all extremities spontaneously and smoothly. 1 person assist to position in bed Biofilm and necrotic debris in wound bed was removed with 3mm currette. There's some granulation over the bone. No signs of infection. No fluid collection. No induration. Wound repacked with saline gauze with ABD. SCDs applied to both legs and turned on. Assessment & Plan Assessment/Plan (1) Pressure ulcer of sacral region, stage 4: PLAN: Dehiscence of the superior aspect of the flap Continued twice daily wet-to-dry dressings Anticipate healing by secondary intention with every 2 hour turns and continuing pressure offloading bed (absolutely no supine at this point as we cannot put pressure on the wound) Dr. Cool reiterated to the patient the importance of pressure offloading She will continue to attempt higher protein diet (she ate some eggs this morning). Prealbumin low of 8. The flap is viable but the area has dehisced, although there is coverage over the bone which is encouraging. She will continue antibiotics per ID (doxycycline and Augmentin). Plastic surgery to follow Charges/Coding Procedures Integumentary 111xxx-113xx: 44216 Global Visit
[2025-09-03 15:00] VITALS: BMI 24.9
[2025-09-03 22:00] VITALS: RESP 16
[2025-09-04 08:17] VITALS: BP 119/72; PULSE 83; RESP 18; TEMP 36.4; O2SAT 96
[2025-09-04] MEDS: Amox/Clav 400mg/5ml Susp 800 MG PO ×2 (08:18→17:25)
[2025-09-04] MEDS: Cholecalciferol (VIT D3) 25 MCG TABLET (1,000 UNITS) 50 MCG PO (08:19)
[2025-09-04] MEDS: APIXABAN 5 MG TABLET PO ×2 (08:19→22:49)
--- NOTE | 2025-09-04 09:11 | PCM.PN.SRG ---
Subjective Subjective Patient continues to struggle with pressure offloading. She continues to lay on the wound unfortunately. Objective Data Objective Data Vital Signs: Vital Signs Temp Pulse Resp BP Pulse Ox O2 Del Method 97.5 F L 83 18 119/72 96 Room Air 09/04/25 08:17 09/04/25 08:17 09/04/25 08:17 09/04/25 08:17 09/04/25 08:17 09/04/25 08:17 Oxygen Delivery Method Room Air Weight: 118 lb 9 oz Body Mass Index (BMI) 24.9 Intake & Output: Intake and Output for Last 24 Hours 09/02/25 09/03/25 09/04/25 23:59 23:59 23:59 Intake Total 570 / 570 120 / 120 Balance 570 / 570 120 / 120 Lab / Micro Data 08/29/25 05:11 09/02/25 05:10 Physical Exam Narrative Afebrile/VSS Sacral wound examined Continues to have some dehiscence of the reconstruction and deepening of the sacral wound that now down to fascia. Some fibrinous exudate at the base of the wound. No signs of acute infection Wound repacked with saline gauze with ABD. SCDs applied to both legs and turned on. No swelling in the lower extremities Assessment & Plan Assessment/Plan (1) Stage 4 skin ulcer of sacral region: PLAN: Patient needs to continue to have consistent twice daily dressing changes while the wound continues to demarcate and debride with the dressing changes. She does not have adequate care at home for twice daily dressing changes (requires nursing home for dressing changes inpatient). Eventually we can transition her to a wound VAC I reiterated today to the patient the importance of pressure offloading and how this is contributing to flap dehiscence and necrosis and failure of the reconstruction with worsening of the sacral wound. She endorses understanding but reports that she is unable to stay on her side and has to sit/lay on the wound as it is too uncomfortable not to do so. She understands the risks of doing this (worsening of the sacral wound) and the benefits of offloading (potential healing). Plastic surgery will continue to follow Agree with continued antibiotics and okay for continued blood thinner
[2025-09-04 10:00] VITALS: RESP 17
--- NOTE | 2025-09-04 11:02 | NURSING ---
Pt. educated on the importance of staying off bottom,. pt has been seen on multiple occasions resting comfortably on bottom. reminded each time pt needs to be off bottom.
[2025-09-04 14:51] VITALS: BP 105/57; PULSE 75; RESP 17; TEMP 36.7; O2SAT 96
--- NOTE | 2025-09-04 16:08 | CASEMGMT ---
Addendum entered by Sita Alejandre 09/04/25 16:58: Dr. Cool and Rocio Steven was on unit and this worker updated both on conversation with pt. Both appreciative. Original Note: Social Work IDT discussed in UR that pt is noncompliant with Dr/nursing recommendations for positioning, etc, and typically only participates in 2/[address] unsure when/if the wound will heal, thus pt cannot remain in TCU for that duration. Pt is plateauing in therapy and IDT is ready to prepare for DC. Team suggested showing pt the picture of her wound to ensure she grasps the severity. Dietitian also concerned about pt's poor appetite and lack of protein intake. - SW spoke with pt at bedside. Followed up on pt's progress and inquired about pt's perspective. Pt voiced she is happy with the care and staff and I am well taken care of, but is wishing things would improve faster. SW spoke kindly and softly to pt to explain it is to the pt's benefit to participate in the care and therapy fully. Noted the pt participates in 2/3 therapies and pt agreed. SW also stressed offloading that wound is very important, along with fueling her body with proper nutrition and protein to help heal the wound. Pt expressed understanding. SW stated the staff care about the pt's well-being and success, but the pt has to follow the recommendations. Dr. Cool informed the pt that he is unsure how long or if the wound would heal and pt cannot remain in TCU indefinitely. Explained that pt is nearing DC, within 2 weeks, if there are no changes or improvements made. SW encouraged pt to dig deep, motivate herself, and give 100% next week. If pt is unable to do that, pt will be DC'd, and pt is not safe to return home, thus she will need a SNF. Pt expressed understanding and agreed with this worker. SW inquired if pt had seen her wound. Pt stated she saw a picture pre-surgery, but not since. SW offered to show pt a picture currently to help see what the staff is seeing. Pt agreed. SW returned with the laptop and pt stated, what if I wait until Tuesday to see the wound - I'm getting uncomfortable. SW encouraged to view now, to allow the following days to process, to have a successful start to next week. Pt agreed. SW showed pt the picture. Pt's body language were unchanged, but voiced that is similar to what she had imagined. Pt voiced she understands the importance of the treatment plan and agreed to work harder next week. Pt appreciative. SW appreciative of motivation to change and SW will follow up with pt at the end of next week to discuss progress and DC. Sita Alejandre CALENDAR CONTROL CLERK [employer]GER
[2025-09-05] MEDS: Amox/Clav 400mg/5ml Susp 800 MG PO ×2 (09:35→15:55)
[2025-09-05 09:39] VITALS: BP 107/72; PULSE 84; RESP 16; TEMP 36.6; O2SAT 97
[2025-09-05] MEDS: Cholecalciferol (VIT D3) 25 MCG TABLET (1,000 UNITS) 50 MCG PO (11:01)
[2025-09-05] MEDS: APIXABAN 5 MG TABLET PO ×2 (11:02→22:10)
[2025-09-05 14:54] VITALS: BP 138/75; PULSE 71; RESP 12; TEMP 36.2; O2SAT 94
[2025-09-06] MEDS: Amox/Clav 400mg/5ml Susp 800 MG PO ×2 (10:01→17:39)
[2025-09-06] MEDS: APIXABAN 5 MG TABLET PO ×2 (10:05→22:41)
[2025-09-06] MEDS: Cholecalciferol (VIT D3) 25 MCG TABLET (1,000 UNITS) 50 MCG PO (12:19)
[2025-09-06 15:15] VITALS: BP 122/77; PULSE 67; RESP 15; TEMP 36.3; O2SAT 94
[2025-09-07 08:17] VITALS: BP 111/67; PULSE 73; RESP 18; TEMP 36.8; O2SAT 95
[2025-09-07] MEDS: Amox/Clav 400mg/5ml Susp 800 MG PO ×2 (08:19→17:09)
[2025-09-07] MEDS: Senna/Docusate Sodium 1 Tablet PO (08:19)
[2025-09-07] MEDS: Cholecalciferol (VIT D3) 25 MCG TABLET (1,000 UNITS) 50 MCG PO (08:20)
[2025-09-07] MEDS: Polyethylene Glycol 3350 17 GM PACKET PO (08:20)
[2025-09-07] MEDS: APIXABAN 5 MG TABLET PO ×2 (08:21→22:08)
--- NOTE | 2025-09-08 07:20 | NURSING ---
Pt refused HS dressing change 09/07/2025 stated it was just changed at 7. Upon discussion with the dayshift nurse the dressing change was done one time during their shift (earlier in the shift).
[2025-09-08] MEDS: Amox/Clav 400mg/5ml Susp 800 MG PO ×2 (09:46→17:05)
--- NOTE | 2025-09-08 09:46 | PCM.PN.SRG ---
Subjective Subjective Nursing reports trouble with dressing change last night (patient declined). Dressing changed on rounds today and patient tolerated. Objective Data Objective Data Vital Signs: Vital Signs Temp Pulse Resp BP Pulse Ox O2 Del Method 98.3 F 73 18 111/67 95 Room Air 09/07/25 08:17 09/07/25 08:17 09/07/25 08:17 09/07/25 08:17 09/07/25 08:17 09/07/25 10:00 Oxygen Delivery Method Room Air Weight: 118 lb 9 oz Body Mass Index (BMI) 24.9 Intake & Output: Intake and Output for Last 24 Hours 09/06/25 09/07/25 09/08/25 23:59 23:59 23:59 Intake Total 240 / 240 360 / 360 Balance 240 / 240 360 / 360 Medical Nutrition Assessment Dietitian: Malnutrition Criteria Met Start: 09/04/25 12:55 Freq: Status: Active Protocol: Document 09/04/25 12:55 SLA (Rec: 09/04/25 12:55 SLA .[id number]) Nutrition Malnutrition Evidence of Yes Malnutrition Exists Malnutrition (severe Acute Illness/Injury ): Evidenced By Suboptimal Energy Intake (Severe),Weight Loss (Moderate ) Intake Problem Inadequate Oral Intake Status Inactive Problem Increased Nutrient Needs (specify) Etiology protein related to sacral PI Signs/Symptoms as evidenced by need for high protein diet Status Active Problem Clinical Problem Acute Disease or Injury Related Malnutrition Etiology related to inadequate energy intake Signs/Symptoms as evidenced by ~16% unplanned wt loss and po intake meeting <50-75% of est nutritional needs since adm on 08/18/25 Status Active Problem Recommendation Dietitian Continue regular diet - with magic cup w/ meals and Recommendations/ fortified foods w/ meals as able; continue PB w/ banana Changes at breakfast and French yogurt w/ lunch and dinner. Family to bring premiere protein from home for res - goal is 2 bottles per day. Rec consider appetite stimulant to help encourage increased po intake Continue to follow and monitor for changes in pt nutritional status and make additional rec as indicated . Lab / Micro Data 08/29/25 05:11 09/02/25 05:10 Physical Exam Narrative Patient laying directly on sacral wound/flap this morning. Reports too hard to lay on my side Reiterated importance of pressure offloading to the patient. Sacral wound examined Stage 4 (bone exposed at the base) No fluid collections Most of flap still intact and viable, but dehisced. Eyes Alignment: Negative for alignment normal Extremity Extremity Narrative: SCDs on and activated Assessment & Plan Assessment/Plan (1) Sacral osteomyelitis: (2) Stage 4 skin ulcer of sacral region: PLAN: Plan Continue dressing changes Bedside debridement as needed Anticipate VAC for DC Will need pressure offloading bed at home before discharge
[2025-09-08] MEDS: APIXABAN 5 MG TABLET PO ×2 (09:47→20:24)
[2025-09-08] MEDS: Cholecalciferol (VIT D3) 25 MCG TABLET (1,000 UNITS) 50 MCG PO (09:49)
[2025-09-08 10:00] VITALS: PULSE 70
--- NOTE | 2025-09-08 11:35 | NURSING ---
in this AM dressing change completed with the nurse present
[2025-09-08 11:38] VITALS: BP 120/70; PULSE 77; RESP 17; TEMP 37; O2SAT 96
[2025-09-09] MEDS: Amox/Clav 400mg/5ml Susp 800 MG PO ×2 (08:38→17:54)
[2025-09-09] MEDS: APIXABAN 5 MG TABLET PO ×2 (08:47→21:39)
[2025-09-09] MEDS: Cholecalciferol (VIT D3) 25 MCG TABLET (1,000 UNITS) 50 MCG PO (13:14)
--- NOTE | 2025-09-09 14:47 | PCM.PN.SRG ---
Subjective Subjective Patient lying on her left side with pillow propped behind her posterior thigh. She says her dressing was just changed by Rocio wound RN. She admits she has been laying on her sacrum a little more today. Her pain is adequately controlled. She says she can't tolerate lying on her right side. Objective Data Objective Data Vital Signs: Vital Signs Temp Pulse Resp BP Pulse Ox O2 Del Method 98.6 F 77 17 120/70 96 Room Air 09/08/25 11:38 09/08/25 11:38 09/08/25 11:38 09/08/25 11:38 09/08/25 11:38 09/08/25 11:38 Oxygen Delivery Method Room Air Weight: 118 lb 9 oz Body Mass Index (BMI) 24.9 Intake & Output: Intake and Output for Last 24 Hours 09/07/25 09/08/25 09/09/25 23:59 23:59 23:59 Intake Total 360 / 360 300 / 300 Balance 360 / 360 300 / 300 Medical Nutrition Assessment Dietitian: Malnutrition Criteria Met Start: 09/04/25 12:55 Freq: Status: Active Protocol: Document 09/04/25 12:55 SLA (Rec: 09/04/25 12:55 SLA [email or web address]) Nutrition Malnutrition Evidence of Yes Malnutrition Exists Malnutrition (severe Acute Illness/Injury ): Evidenced By Suboptimal Energy Intake (Severe),Weight Loss (Moderate ) Intake Problem Inadequate Oral Intake Status Inactive Problem Increased Nutrient Needs (specify) Etiology protein related to sacral PI Signs/Symptoms as evidenced by need for high protein diet Status Active Problem Clinical Problem Acute Disease or Injury Related Malnutrition Etiology related to inadequate energy intake Signs/Symptoms as evidenced by ~16% unplanned wt loss and po intake meeting <50-75% of est nutritional needs since adm on 08/18/25 Status Active Problem Recommendation Dietitian Continue regular diet - with magic cup w/ meals and Recommendations/ fortified foods w/ meals as able; continue PB w/ banana Changes at breakfast and Welsh yogurt w/ lunch and dinner. Family to bring premiere protein from home for res - goal is 2 bottles per day. Rec consider appetite stimulant to help encourage increased po intake Continue to follow and monitor for changes in pt nutritional status and make additional rec as indicated . Lab / Micro Data Attestation: I reviewed the patient's lab results. 08/29/25 05:11 09/02/25 05:10 Physical Exam Narrative Patient laying somewhat on sacral wound. Wet gauze packing, with acquacel Ag on lower portion. Middle of the incision is holding Signs of pressure on incision, blanchable. Eyes Alignment: Negative for alignment normal Extremity Extremity Narrative: SCDs on and activated Assessment & Plan Assessment/Plan (1) Sacral osteomyelitis: (2) Stage 4 skin ulcer of sacral region: PLAN: Plan Continue dressing changes Bedside debridement as needed Anticipate VAC for DC Will need pressure offloading bed at home before discharge Charges/Coding Procedures Integumentary [id number]: [id number] Global Visit
--- NOTE | 2025-09-09 15:50 | WOUNDNOTE ---
wound photo: sacrum
[2025-09-09 16:00] VITALS: BP 105/67; PULSE 80; RESP 14; TEMP 37.1; O2SAT 96
[2025-09-09 20:26] VITALS: PULSE 70; O2SAT 95
[2025-09-09 21:34] VITALS: BP 120/75; PULSE 75
--- NOTE | 2025-09-10 07:24 | NURSING ---
Written communication left for Dr. Quevedo regarding pt complaint of dry skin to fredy LE and pt requesting Aquafor
[2025-09-10 09:28] VITALS: BP 88/61; PULSE 86; RESP 16; TEMP 36.8; O2SAT 93
[2025-09-10 09:30] VITALS: BP 88/63
[2025-09-10] MEDS: APIXABAN 5 MG TABLET PO ×2 (09:33→20:56)
[2025-09-10] MEDS: Amox/Clav 400mg/5ml Susp 800 MG PO ×2 (09:33→17:20)
[2025-09-10] MEDS: Cholecalciferol (VIT D3) 25 MCG TABLET (1,000 UNITS) 50 MCG PO (09:34)
--- NOTE | 2025-09-10 09:41 | NURSING ---
Addendum entered by Virginia Raman 09/10/25 14:56: pt did have increased weakness and went slightly unresponsive with transfer from bed to [facility], low BP at 87/[address] howell notified, labs obtained, 500cc saline bolus given. potassium low 3.2, orders received to administer 40meq kdur now and give 20meq daily. recheck bmp next 3 days. after bolus BP 102/66 HR 66. Original Note: Pt with low BP 88/63 HR 87. asymptomatic. holding rythmol & cardizem at this time and pt agreeable. pt encouraged to drink fluids, I have been, I do not drink anything at night resting in bed, on 2 pillows, call light in reach. Dr Cool was in to assess wound. states DrIling will be back to change dressing per pt
[2025-09-10 11:46] VITALS: BP 113/63; PULSE 77
[2025-09-10 12:11] LABS: Hematocrit 41.0 % (37-47); Hemoglobin 13.8 g/dL (12.0-15.0); Immature Granulocytes Count 0.020 X10^3/uL (0.0-0.0); Mean Corp Hgb Conc 33.7 g/dL (32-36); Mean Corpuscular Volume 87.0 fL (81-99); Mean Platelet Vol. 11.1 fl (6.2-12.0); NRBC Flagged by Analyzer 0 % (0-5); Platelet Count 205 K/mm3 (150-450); RBC Distribution Width CV 15.9 % (11.6-14.6); RBC Distribution Width SD 50.0 fl (35.1-43.9); Red Blood Count 4.71 M/mm3 (4.2-5.4); White Blood Count 7.8 K/mm3 (4.4-11.0)
[2025-09-10 12:53] LABS: Anion Gap 13 (5-15); BUN 15 mg/dL (4-19); BUN/Creat Ratio 24.4 RATIO (10-20); Calcium,Total 8.8 mg/dL (7.6-11.0); Carbon Dioxide 24.7 mmol/L (21.0-32.0); Chloride 97 mmol/L (98-108); Estimated Creatinine Clearance 38.27 ml/min (50-250); Glucose 111 mg/dL (70-99); Potassium 3.2 mmol/L (3.3-5.1)
[2025-09-10] MEDS: 0.9% Normal Saline (500mL Bag) 500 ML 999 ML IV (13:15)
[2025-09-10 14:26] VITALS: BP 102/66; PULSE 78
--- NOTE | 2025-09-10 15:08 | PCM.PN.SRG ---
Subjective Subjective Patient seen laying on her backside with a pillow on each hip. She was dizzy today with low blood pressure and received IV saline. She denies vomiting, abdominal pain. Objective Data Objective Data Vital Signs: Vital Signs Temp Pulse Resp BP Pulse Ox O2 Del Method 98.3 F 78 16 102/66 93 Room Air 09/10/25 09:28 09/10/25 14:26 09/10/25 09:28 09/10/25 14:26 09/10/25 09:28 09/10/25 09:28 Oxygen Delivery Method Room Air Weight: 118 lb 9 oz Body Mass Index (BMI) 24.9 Intake & Output: Intake and Output for Last 24 Hours 09/08/25 09/09/25 09/10/25 23:59 23:59 23:59 Intake Total 300 / 300 240 / 240 1100 / 1100 Balance 300 / 300 240 / 240 1100 / 1100 Medical Nutrition Assessment Dietitian: Malnutrition Criteria Met Start: 09/04/25 12:55 Freq: Status: Active Protocol: Document 09/04/25 12:55 SLA (Rec: 09/04/25 12:55 SLA [id number]) Nutrition Malnutrition Evidence of Yes Malnutrition Exists Malnutrition (severe Acute Illness/Injury ): Evidenced By Suboptimal Energy Intake (Severe),Weight Loss (Moderate ) Intake Problem Inadequate Oral Intake Status Inactive Problem Increased Nutrient Needs (specify) Etiology protein related to sacral PI Signs/Symptoms as evidenced by need for high protein diet Status Active Problem Clinical Problem Acute Disease or Injury Related Malnutrition Etiology related to inadequate energy intake Signs/Symptoms as evidenced by ~16% unplanned wt loss and po intake meeting <50-75% of est nutritional needs since adm on 08/18/25 Status Active Problem Recommendation Dietitian Continue regular diet - with magic cup w/ meals and Recommendations/ fortified foods w/ meals as able; continue PB w/ banana Changes at breakfast and Wallisian yogurt w/ lunch and dinner. Family to bring premiere protein from home for res - goal is 2 bottles per day. Rec consider appetite stimulant to help encourage increased po intake Continue to follow and monitor for changes in pt nutritional status and make additional rec as indicated . Lab / Micro Data Attestation: I reviewed the patient's lab results. 09/10/25 12:02 09/10/25 12:02 Labs: Laboratory Results - last 24 hr 09/10/25 12:02: WBC 7.8, RBC 4.71, Hgb 13.8, Hct 41.0, MCV 87.0, MCH 29.3, MCHC 33.7, RDW Std Deviation 50.0 H, RDW Coeff of Kip 15.9 H, Plt Count 205, MPV 11.1, Immature Gran % (Auto) 0.300, Neut % (Auto) 53.8, Lymph % (Auto) 34.4, [place] % (Auto) 10.5 H, Eos % (Auto) 0.6, Baso % (Auto) 0.4, Absolute Neuts (auto) 4.2, Absolute Lymphs (auto) 2.69, Nucleated RBC % 0, Sodium 135, Potassium 3.2 L, Chloride 97 L, Carbon Dioxide 24.7, Anion Gap 13, BUN 15, Creatinine 0.63 L, Estim Creat Clear Calc 38.27 L, Est GFR (MDRD) Non-Af 88, BUN/Creatinine Ratio 24.4 H, Glucose 111 H, Calcium 8.8 Physical Exam Narrative Afebrile/soft BP, normal heart rate Debrided with 7mm curette down to granulation tissue over sacrum. Undermining 1.5cm circumferentially. Bioburden, fibrous tissue and slough removed with debridement. Flushed with saline. No leg edema. SCD's applied. Assessment & Plan Assessment/Plan (1) Sacral osteomyelitis: (2) Stage 4 skin ulcer of sacral region: PLAN: Plan Dakin moistened gauze packing change twice daily [facility] will do bedside debridement EOD with plans for VAC placement possibly next week. Anticipate VAC for DC Will need pressure offloading bed at home before discharge Charges/Coding Procedures Integumentary [id number]: [id number] Global Visit
[2025-09-10] MEDS: Potassium Chloride Oral Tablet 20 MEQ 40 MEQ PO (15:15)
[2025-09-10 20:52] VITALS: PULSE 82; O2SAT 95
[2025-09-10 20:53] VITALS: BP 98/67; PULSE 82
[2025-09-10] MEDS: DAKIN'S SOL HALF STRENGTH (=0.25%) TOPICAL (20:56)
[2025-09-10] MEDS: 0.9% Saline Lock 10 ML Syringe IV (20:57)
--- NOTE | 2025-09-11 02:16 | NURSING ---
Written communication left for Dr. Quevedo regarding 2 doses of Rythmol held per protocol on 09/10/25 due to low BPs.
--- NOTE | 2025-09-11 02:49 | NURSING ---
Despite education, pt continues to be noncompliant with offloading pressure from sacrum.
[2025-09-11 06:09] LABS: Anion Gap 8 (5-15); BUN 12 mg/dL (4-19); BUN/Creat Ratio 24.0 RATIO (10-20); Calcium,Total 8.6 mg/dL (7.6-11.0); Carbon Dioxide 25.9 mmol/L (21.0-32.0); Chloride 102 mmol/L (98-108); Estimated Creatinine Clearance 38.27 ml/min (50-250); Glucose 93 mg/dL (70-99); Potassium 3.8 mmol/L (3.3-5.1)
[2025-09-11 08:33] VITALS: BP 100/69; PULSE 95; RESP 16; TEMP 36.4; O2SAT 97
[2025-09-11] MEDS: Potassium Chloride Oral Tablet 20 MEQ PO (08:35)
[2025-09-11] MEDS: Amox/Clav 400mg/5ml Susp 800 MG PO ×2 (08:35→18:48)
[2025-09-11] MEDS: Cholecalciferol (VIT D3) 25 MCG TABLET (1,000 UNITS) 50 MCG PO (08:35)
[2025-09-11] MEDS: APIXABAN 5 MG TABLET PO ×2 (08:36→21:58)
[2025-09-11 10:00] VITALS: PULSE 90; O2SAT 97
--- NOTE | 2025-09-11 10:14 | CASEMGMT ---
Addendum entered by Sita Alejandre 09/11/25 16:26: SW updated pt that [facility] and [facility] do not have beds. SW inquired about [facility] or [facility] SNFs. Pt requested to placed on a waitlist for both SNFs. SW agreed. Pt stated she will have her niece tour the [facility] and update this worker on new referrals. SW will continue to follow. Addendum entered by Sita Alejandre 09/11/25 11:53: SW returned to pt's room and pt feeling better. SW issued NOMNC. Pt to update dtr and DIL. Pt inquired about transport. SW to confer with therapy and wound nurse and update pt. SW completed BIMS () and PHQ-2 () for MDS assessment. Plan: DC 09/25 to SNF, intermediate, private pay Original Note: Social Work SW spoke with pt at bedside. Discussed pt is done with PO ATB 09/24 and IDT would like to set DC for 09/15, which is two weeks from this date. Pt is agreeable, with no concerns. SW explained recommendation for SNF. Pt agreeable she cannot return home, and agreeable to SNF. SW referenced previous conversations with [facility] SNFs. Pt denies referrals to [facility] or [facility] but agreeable to referrals to [facility] and [facility]. SW confirmed pt can pay privately 30 days at admission. Pt agreed. Pt soon became nauseous and dry heaving. SW provided emesis bag and alcohol swab and will return to complete NOMNC and MDS. - SALVADOR sent referrals to SNFs via [employer]. Sita Alejandre ADMINISTRATIVE SUPPORT TECHNICIAN DEPUTY CORONER
--- NOTE | 2025-09-11 10:59 | NURSING ---
this nurse in to do patient assessment and wound change, which pt tolerated well.. after care is complete assisted with repositioning pt onto left side, placed a pillow under patient shoulder area to reduce the amount of pressure on sacral area, pt requested pillow be moved further down, educated pt that it would be putting pressure on sacral area, pt understood but still requested pillow to be placed there. pt aware of the the risks and importance of offloading...
[2025-09-11] MEDS: DAKIN'S SOL HALF STRENGTH (=0.25%) TOPICAL ×2 (11:46→22:08)
[2025-09-11] MEDS: 0.9% Saline Lock 10 ML Syringe IV (13:18)
[2025-09-11 16:00] VITALS: BP 116/80; PULSE 78; RESP 17; TEMP 36.1; O2SAT 95
--- NOTE | 2025-09-11 19:45 | DS.PCM_ITS ---
Providers Date of Admission: 08/18/25 Primary Care Physician: Dr. Mil Woodruff MD Consultations 08/18/25 16:17 Consult: Onc/Wound/credit union examiner Routine Comment: Reason for Consult:: Sacral Wound 08/19/25 10:28 Consult: Plastic Surgery Routine Consulting Provider: Francis Cool Reason for Consult: Sacral osteomyelitis s/p excision/skin flap. EMERGENT Consult: No MD Notified: Yes Date Notified: 08/19/25 Time Notified: 08:00 Method of Notification: Verbal Reason For Visit: EXCISION SACRAL WOUND WITH WOUND VAC PLACEMENT Diagnosis Discharge Diagnosis (1) Sacral osteomyelitis: Status: Acute Code(s): M46.28 - Osteomyelitis of vertebra, sacral and sacrococcygeal region (2) Stage 4 skin ulcer of sacral region: Status: Acute Code(s): L98.429 - Non-pressure chronic ulcer of back with unspecified severity Plan 84 year old female with below past medical history hospitalized for stage 4 pressure ulcer/sacral osteomyelitis, underwent excision of sacral ulcer followed by skin flap closure per Dr. Cool, admitted to TCU with debility, here for rehabilitation, strengthening, prior to discharge home alone. * Debility - PT/OT. * Dysphagia - ST. * Pain - Tylenol 1000mg q6 prn pain (1-5), Tramadol 50mg q6 prn pain (6-10). * Bowel - senna/colace 1 tablet bid. * Adult immunization - Administer pneumonia vaccine, covid vaccine, flu vaccine as appropriate. * DVT prophylaxis - Eliquis. * Sacral osteomyelitis s/p excision/skin flap closure - Augmentin 875mg bid thru 09/24/2025, Doxycycline 100mg bid thru 09/24/2025, Consult Dr. Cool to follow. * Atrial fibrillation - Propafenone 150mg bid, Diltiazem CD 240mg daily, Eliquis 2.5mg bid. * Hyperlipidemia - Atorvastatin 20mg qhs. * Vitamin D deficiency - D3 50mcg daily. * Edema - Furosemide 40mg bid prn. * Hypothyroidism - Levothyroxine 100mcg daily. * Nutrition - MVI 1 tablet daily. * GERD - Pantoprazole 40mg daily. * Hypokalemia - K 2.7, KCL 60meq po x 1, then 20mg bid, trend bmp. Medications at Discharge Home Medications atorvastatin 10 mg tablet 10 mg PO QHS Cholesterol 10/01/21 cholecalciferol (vitamin D3) 50 mcg (2,000 unit) capsule (Vitamin D3) 50 mcg PO DAILY Supplement 10/01/21 diltiazem HCl 240 mg capsule,extended release 24 hr 240 mg PO DAILY BP 10/01/21 furosemide 40 mg tablet 40 mg PO BID PRN Edema 10/01/21 polyethylene glycol 3350 17 gram oral powder packet (Miralax) 17 g PO DAILY Constipation 10/01/21 levothyroxine 100 mcg tablet 100 mcg PO DAILY Thyroid 04/22/25 propafenone 150 mg tablet 150 mg PO BID Antiarrhythmic 07/29/25 doxycycline hyclate 100 mg capsule 100 mg PO BID Antibiotic #74 caps 08/16/25 amoxicillin 400 mg-potassium clavulanate 57 mg/5 mL oral suspension 10 ml PO BIDCM #0 mL 09/11/25 apixaban 5 mg tablet (Eliquis) 5 mg PO BID #0 tabs 09/11/25 multivitamin 1 tab PO BREAKFAST #0 tabs 09/11/25 nystatin 100,000 unit/gram topical powder 1 applic topical BID #0 grams 09/11/25 pantoprazole 40 mg tablet,delayed release 40 mg PO DAILY #0 tabs 09/11/25 potassium chloride 20 mEq tablet,extended release(part/cryst) 20 meq PO DAILYCM #0 tabs 09/11/25 sennosides 8.6 mg-docusate sodium 50 mg tablet (Stimulant Laxative Plus) 1 tab PO BID #0 tabs 09/11/25 sodium hypochlorite 0.25 % solution (HySept) See Protocol topical BID #0 mL 09/11/25 tramadol 50 mg tablet 50 mg PO Q6H PRN PRN Pain Score 6-10 Or Pre Pt/Ot 3 days #12 tabs 09/11/25 Hospital Course Operations - (See below.) Procedures None Summary of Care Provided Minutes Spent on Discharge: 35 Hospital Course: 84 year old female with below past medical history hospitalized for stage 4 pressure ulcer/sacral osteomyelitis, underwent excision of sacral ulcer followed by skin flap closure per Dr. Cool, admitted to TCU with debility, here for rehabilitation, strengthening, prior to discharge home alone. Discharge to SNF 09/25/2025, intermediate, private pay. Physical Exam Const alert General Appearance: cooperative HEENT normocephalic Eyes PERRL and EOMs intact bilaterally Neck supple, no JVD and no carotid bruits Resp normal respiratory effort, normal air movement and clear to auscultation bilaterally Cardio regular rate and regular rhythm GI normal to inspection, nondistended, normoactive bowel sounds, non-tender and non-distended Extremity normal capillary refill General Extremity: Negative for edema Skin no rashes or lesions noted Wound Narrative: Sacral wound per wound team. Psych affect normal Appearance: appropriate Medical Records Data Medical Nutrition Assessment Dietitian: Malnutrition Criteria Met Start: 09/04/25 12:55 Freq: Status: Active Protocol: Document 09/04/25 12:55 SLA (Rec: 09/04/25 12:55 SLA 10..25.7) Nutrition Malnutrition Evidence of Yes Malnutrition Exists Malnutrition (severe Acute Illness/Injury ): Evidenced By Suboptimal Energy Intake (Severe),Weight Loss (Moderate ) Intake Problem Inadequate Oral Intake Status Inactive Problem Increased Nutrient Needs (specify) Etiology protein related to sacral PI Signs/Symptoms as evidenced by need for high protein diet Status Active Problem Clinical Problem Acute Disease or Injury Related Malnutrition Etiology related to inadequate energy intake Signs/Symptoms as evidenced by ~16% unplanned wt loss and po intake meeting <50-75% of est nutritional needs since adm on 08/18/25 Status Active Problem Recommendation Dietitian Continue regular diet - with magic cup w/ meals and Recommendations/ fortified foods w/ meals as able; continue PB w/ banana Changes at breakfast and Chinese yogurt w/ lunch and dinner. Family to bring premiere protein from home for res - goal is 2 bottles per day. Rec consider appetite stimulant to help encourage increased po intake Continue to follow and monitor for changes in pt nutritional status and make additional rec as indicated . Weight / BMI Weight Weight: 53.779 kg Body Mass Index (BMI) 24.9 ABG / Lab / Microbiology Data 09/10/25 12:02 09/11/25 05:29 Laboratory: Laboratory Results - last 24 hr 09/11/25 05:29: Sodium 136, Potassium 3.8, Chloride 102, Carbon Dioxide 25.9, Anion Gap 8, BUN 12, Creatinine 0.52 L, Estim Creat Clear Calc 38.27 L, Est GFR (MDRD) Non-Af 92, BUN/Creatinine Ratio 24.0 H, Glucose 93, Calcium 8.6 D/C Instructions Discharge Activity: Return to Normal Activity, May Shower and Use Walker Weight Bearing Status: Weight bearing as tolerated Call your doctor if you observe: Fever of 101 or Higher, Inability to urinate, Inability to have a bowel movement, Shortness of breath, Dizziness, Fainting spells, Swelling in the ankles, Chest pain and Uncontrolled pain DC O2, CPAP, BIPAP Needs Home O2 Discharge instructions: No Additional Instructions: Discharge to SNF 09/25/2025, intermediate, private pay. Meaningful Use Info Meaningful Use Meaningful Use Diagnoses (Choose all that apply): None applicable Discharge Plan Admission Admit Date/Time: 08/18/25 14:24 Primary Reason for Your Visit: Debility. Attending Provider: Adrien Quevedo Chi Primary Care Provider: Mil Woodruff Consulting Providers: Francis Cool Instructions Additional Instructions / Restrictions: Discharge to SNF 09/25/2025, intermediate, private pay. Discharge Orders/Prescriptions Prescriptions: New multivitamin Tablet 1 tab PO BREAKFAST Qty: 0 0RF amoxicillin-pot clavulanate 400-57 mg/5 mL Suspension For Reconstitution 10 ml PO BIDCM Qty: 0 0RF pantoprazole 40 mg Tablet,Delayed Release (Dr/Ec) 40 mg PO DAILY Qty: 0 0RF Eliquis 5 mg Tablet 5 mg PO BID Qty: 0 0RF sennosides-docusate sodium [Stimulant Laxative Plus] 8.6-50 mg Tablet 1 tab PO BID Qty: 0 0RF potassium chloride 20 mEq Tablet,Er Particles/Crystals 20 meq PO DAILYCM Qty: 0 0RF nystatin 100,000 unit/gram Powder 1 applic topical BID Qty: 0 0RF Protocol: *Topical Application Instructions APPLICATION INSTRUCTIONS: Under breast, abdominal folds, and in groin tramadol 50 mg Tablet 50 mg PO Q6H PRN PRN (Reason: Pain Score 6-10 Or Pre Pt/Ot) 3 Days Qty: 12 0RF HySept 0.25 % Solution See Protocol topical BID Qty: 0 0RF Protocol: *Topical Application Instructions APPLICATION INSTRUCTIONS: sacral wound Continued furosemide 40 mg Tablet 40 mg PO BID PRN (Reason: Edema) polyethylene glycol 3350 [Miralax] 17 gram Powder In Packet 17 g PO DAILY atorvastatin 10 mg Tablet 10 mg PO QHS diltiazem HCl 240 mg Capsule,Extended Release 24hr 240 mg PO DAILY cholecalciferol (vitamin D3) [Vitamin D3] 50 mcg (2,000 unit) Capsule 50 mcg PO DAILY levothyroxine 100 mcg tablet 100 mcg PO DAILY propafenone 150 mg tablet 150 mg PO BID doxycycline hyclate 100 mg capsule 100 mg PO BID Qty: 74 0RF Discontinued milk thistle 150 mg Capsule 300 mg PO DAILY multivitamin Capsule 1 cap PO DAILY lubiprostone [Amitiza] 8 mcg Capsule 8 mcg PO BID dexlansoprazole [Dexilant] 60 mg Capsule,Biphase Delayed Releas 60 mg PO DAILY dabigatran etexilate [Pradaxa] 150 mg Capsule 150 mg PO BID Immucore 1 tab PO/SL DAILY tramadol 50 mg tablet 50 mg PO Q6H PRN PRN (Reason: pain) naloxone 4 mg/actuation spray,non-aerosol 4 mg INTRANASAL PRN Patient Comments: [NO ORIGINAL SIG] Eliquis 2.5 mg tablet 2.5 mg PO BID Patient Comments: STOP 3 DAYS PRIOR TO PROCEDURE amoxicillin-pot clavulanate 875-125 mg tablet 1 tab PO Q12H Qty: 74 0RF Referrals / Follow Up: Mil Woodruff MD [Primary Care Provider, Family Practice] Disposition Disposition (needs filled in before D/C Order can be placed): NonSkilled NH/Intermed Care
--- NOTE | 2025-09-11 19:54 | TREXTCAR_ITS ---
Diet Diet Order/Speech Therapy: INPATIENT Hospital Diet / Speech Therapy Order(s) 08/18/25 16:15 Diet: Regular - General Food consistency:: Regular Liquid Consistency:: Regular/Thin Type of Dietary Supplement:: Magic Cup Dessert Diet Comments: Van/soto MC & fortified foods tid, pb & banana w/ B, turkish yogurt w/ L&D Routine Orders/Code Status Code Status: DNRCC DC O2, CPAP, BIPAP needs Home O2 Discharge instructions: No Wound(s) Under L breast: Wound Type: MASD Dressing Change: Nystatin powder Sacrum: Wound Type: pressure injury s/p flap Dressing Change: Wet to Dry Dressing Therapies Weight Bearing: Weight bearing as tolerated Extremity Affected:: Bilateral Lower Physical Therapy: Eval and Treat Occupational Therapy: Eval and Treat Problem/Diagnosis (1) Sacral osteomyelitis: Status: Acute Code(s): M46.28 - Osteomyelitis of vertebra, sacral and sacrococcygeal region Comment: Continue the incision VAC (2) Stage 4 skin ulcer of sacral region: Status: Acute Code(s): L98.429 - Non-pressure chronic ulcer of back with unspecified severity Plan 84 year old female with below past medical history hospitalized for stage 4 pressure ulcer/sacral osteomyelitis, underwent excision of sacral ulcer followed by skin flap closure per Dr. Cool, admitted to TCU with debility, here for rehabilitation, strengthening, prior to discharge home alone. * Debility - PT/OT. * Dysphagia - ST. * Pain - Tylenol 1000mg q6 prn pain (1-5), Tramadol 50mg q6 prn pain (6-10). * Bowel - senna/colace 1 tablet bid. * Adult immunization - Administer pneumonia vaccine, covid vaccine, flu vaccine as appropriate. * DVT prophylaxis - Eliquis. * Sacral osteomyelitis s/p excision/skin flap closure - Augmentin 875mg bid thru 09/24/2025, Doxycycline 100mg bid thru 09/24/2025, Consult Dr. Cool to follow. * Atrial fibrillation - Propafenone 150mg bid, Diltiazem CD 240mg daily, Eliquis 2.5mg bid. * Hyperlipidemia - Atorvastatin 20mg qhs. * Vitamin D deficiency - D3 50mcg daily. * Edema - Furosemide 40mg bid prn. * Hypothyroidism - Levothyroxine 100mcg daily. * Nutrition - MVI 1 tablet daily. * GERD - Pantoprazole 40mg daily. * Hypokalemia - K 2.7, KCL 60meq po x 1, then 20mg bid, trend bmp. Allergies/Procedures Done in Hospital Allergies hydrocodone (From [place]) Allergy (Severe, Verified 08/12/25 23:33) Itching oxycodone Allergy (Severe, Verified 08/12/25 23:33) Itching adhesive tape Adverse Reaction (Verified 08/12/25 07:22) Rash SURGICAL TAPE NSAIDS (Non-Steroidal Anti-Inflamma Adverse Reaction (Verified 08/12/25 07:22) Nausea Procedures: None Type of Care/Length of Stay Estimated LOS: More Than 30 Days Type of Care Needed: Intermediate Rehab Potential: Fair Prognosis: Fair Additional Orders/Day of Discharge Day of Discharge: 09/25/25 Dietary and Speech Recommendations Dietitian Recommendations/Changes: Continue regular diet - with magic cup w/ meals and fortified foods w/ meals as able; continue PB w/ banana at breakfast and Estonian yogurt w/ lunch and dinner. Family to bring premiere protein from home for res - goal is 2 bottles per day. Rec consider appetite stimulant to help encourage increased po intake Continue to follow and monitor for changes in pt nutritional status and make additional rec as indicated. Discharge Plan Admission Admit Date/Time: 08/18/25 14:24 Primary Reason for Your Visit: Debility. Attending Provider: Adrien Quevedo Chi Primary Care Provider: Mil Woodruff Consulting Providers: Francis Cool Instructions Additional Instructions / Restrictions: Discharge to SNF 09/25/2025, intermediate, private pay. Discharge Orders/Prescriptions Prescriptions: New multivitamin Tablet 1 tab PO BREAKFAST Qty: 0 0RF amoxicillin-pot clavulanate 400-57 mg/5 mL Suspension For Reconstitution 10 ml PO BIDCM Qty: 0 0RF pantoprazole 40 mg Tablet,Delayed Release (Dr/Ec) 40 mg PO DAILY Qty: 0 0RF Eliquis 5 mg Tablet 5 mg PO BID Qty: 0 0RF sennosides-docusate sodium [Stimulant Laxative Plus] 8.6-50 mg Tablet 1 tab PO BID Qty: 0 0RF potassium chloride 20 mEq Tablet,Er Particles/Crystals 20 meq PO DAILYCM Qty: 0 0RF nystatin 100,000 unit/gram Powder 1 applic topical BID Qty: 0 0RF Protocol: *Topical Application Instructions APPLICATION INSTRUCTIONS: Under breast, abdominal folds, and in groin tramadol 50 mg Tablet 50 mg PO Q6H PRN PRN (Reason: Pain Score 6-10 Or Pre Pt/Ot) 3 Days Qty: 12 0RF HySept 0.25 % Solution See Protocol topical BID Qty: 0 0RF Protocol: *Topical Application Instructions APPLICATION INSTRUCTIONS: sacral wound Continued furosemide 40 mg Tablet 40 mg PO BID PRN (Reason: Edema) polyethylene glycol 3350 [Miralax] 17 gram Powder In Packet 17 g PO DAILY atorvastatin 10 mg Tablet 10 mg PO QHS diltiazem HCl 240 mg Capsule,Extended Release 24hr 240 mg PO DAILY cholecalciferol (vitamin D3) [Vitamin D3] 50 mcg (2,000 unit) Capsule 50 mcg PO DAILY levothyroxine 100 mcg tablet 100 mcg PO DAILY propafenone 150 mg tablet 150 mg PO BID doxycycline hyclate 100 mg capsule 100 mg PO BID Qty: 74 0RF Discontinued milk thistle 150 mg Capsule 300 mg PO DAILY multivitamin Capsule 1 cap PO DAILY lubiprostone [Amitiza] 8 mcg Capsule 8 mcg PO BID dexlansoprazole [Dexilant] 60 mg Capsule,Biphase Delayed Releas 60 mg PO DAILY dabigatran etexilate [Pradaxa] 150 mg Capsule 150 mg PO BID Immucore 1 tab PO/SL DAILY tramadol 50 mg tablet 50 mg PO Q6H PRN PRN (Reason: pain) naloxone 4 mg/actuation spray,non-aerosol 4 mg INTRANASAL PRN Patient Comments: [NO ORIGINAL SIG] Eliquis 2.5 mg tablet 2.5 mg PO BID Patient Comments: STOP 3 DAYS PRIOR TO PROCEDURE amoxicillin-pot clavulanate 875-125 mg tablet 1 tab PO Q12H Qty: 74 0RF Referrals / Follow Up: Mil Woodruff MD [Primary Care Provider, Family Practice] Disposition Disposition (needs filled in before D/C Order can be placed): NonSkilled NH/[facility]
--- NOTE | 2025-09-11 22:49 | NURSING ---
Dressing changed to sacrum. Patient tolerated well. Patient repositioned on left side, but is non-compliant with positioning, returning to back soon after being positioned on side.
[2025-09-12 04:11] VITALS: RESP 16
[2025-09-12 06:31] LABS: Anion Gap 9 (5-15); BUN 13 mg/dL (4-19); BUN/Creat Ratio 21.1 RATIO (10-20); Calcium,Total 8.5 mg/dL (7.6-11.0); Carbon Dioxide 25.7 mmol/L (21.0-32.0); Chloride 100 mmol/L (98-108); Estimated Creatinine Clearance 38.27 ml/min (50-250); Glucose 92 mg/dL (70-99); Potassium 3.9 mmol/L (3.3-5.1)
[2025-09-12] MEDS: 0.9% Saline Lock 10 ML Syringe IV ×2 (06:33→10:26)
[2025-09-12 08:07] VITALS: BP 99/66; PULSE 81; RESP 16; TEMP 36.2; O2SAT 98
[2025-09-12] MEDS: Amox/Clav 400mg/5ml Susp 800 MG PO ×2 (08:11→17:44)
[2025-09-12] MEDS: APIXABAN 5 MG TABLET PO ×2 (08:12→21:15)
[2025-09-12] MEDS: Cholecalciferol (VIT D3) 25 MCG TABLET (1,000 UNITS) 50 MCG PO (08:12)
[2025-09-12] MEDS: Potassium Chloride Oral Tablet 20 MEQ PO (08:12)
[2025-09-12] MEDS: DAKIN'S SOL HALF STRENGTH (=0.25%) TOPICAL ×2 (10:26→21:19)
--- NOTE | 2025-09-12 10:30 | NURSING ---
Wet to dry dressing changed to coccyx wounds per order. pt tolerated well. small amt of serous drng to old dressing, pt positioned onto LT side, propped with pillow. call light in reach.
--- NOTE | 2025-09-12 14:04 | PCM.PN.SRG ---
Subjective Subjective Patient seen this afternoon was finishing up physical therapy doing arm exercises but was lying on her back. She states her dizziness is improved. She has been getting Dakin gauze dressing changes. DC plan to SNF on 09/25/25. Objective Data Objective Data Vital Signs: Vital Signs Temp Pulse Resp BP Pulse Ox O2 Del Method 97.2 F L 81 16 99/66 98 Room Air 09/12/25 08:07 09/12/25 08:07 09/12/25 08:07 09/12/25 08:07 09/12/25 08:07 09/12/25 08:07 Oxygen Delivery Method Room Air Weight: 118 lb 9 oz Body Mass Index (BMI) 24.9 Intake & Output: Intake and Output for Last 24 Hours 09/10/25 09/11/25 09/12/25 23:59 23:59 23:59 Intake Total 1220 / 1220 570 / 570 240 / 240 Balance 1220 / 1220 570 / 570 240 / 240 Medical Nutrition Assessment Dietitian: Malnutrition Criteria Met Start: 09/04/25 12:55 Freq: Status: Active Protocol: Document 09/04/25 12:55 SLA (Rec: 09/04/25 12:55 SLA [email or web address]) Nutrition Malnutrition Evidence of Yes Malnutrition Exists Malnutrition (severe Acute Illness/Injury ): Evidenced By Suboptimal Energy Intake (Severe),Weight Loss (Moderate ) Intake Problem Inadequate Oral Intake Status Inactive Problem Increased Nutrient Needs (specify) Etiology protein related to sacral PI Signs/Symptoms as evidenced by need for high protein diet Status Active Problem Clinical Problem Acute Disease or Injury Related Malnutrition Etiology related to inadequate energy intake Signs/Symptoms as evidenced by ~16% unplanned wt loss and po intake meeting <50-75% of est nutritional needs since adm on 08/18/25 Status Active Problem Recommendation Dietitian Continue regular diet - with magic cup w/ meals and Recommendations/ fortified foods w/ meals as able; continue PB w/ banana Changes at breakfast and Hungarian yogurt w/ lunch and dinner. Family to bring premiere protein from home for res - goal is 2 bottles per day. Rec consider appetite stimulant to help encourage increased po intake Continue to follow and monitor for changes in pt nutritional status and make additional rec as indicated . Lab / Micro Data Attestation: I reviewed the patient's lab results. 09/10/25 12:02 09/12/25 05:13 Labs: Laboratory Results - last 24 hr 09/12/25 05:13: Sodium 135, Potassium 3.9, Chloride 100, Carbon Dioxide 25.7, Anion Gap 9, BUN 13, Creatinine 0.62 L, Estim Creat Clear Calc 38.27 L, Est GFR (MDRD) Non-Af 88, BUN/Creatinine Ratio 21.1 H, Glucose 92, Calcium 8.5 Physical Exam Narrative Soft pressures, afebrile Wound debrided with 4mm currette down to bone. Slough, biofilm and debris removed. Lower portion of flap incision with fibrous debris. Dehiscence measures about 4crn2mj with tunneling. No leg swelling Assessment & Plan Assessment/Plan (1) Sacral osteomyelitis: (2) Stage 4 skin ulcer of sacral region: PLAN: Plan Dakin moistened gauze packing change twice daily Debrided with currette today. [facility] will do bedside debridement EOD with plans for VAC placement possibly next week. Anticipate VAC for DC Will need pressure offloading bed at home before discharge Charges/Coding Procedures Integumentary [id number]: [id number] Global Visit
--- NOTE | 2025-09-12 18:24 | NURSING ---
in today and found pt on back again after being assisted to Left side earlier, pt refuses to lay on rt side. noncompliant with turning to prevent pressure to coccyx wounds
[2025-09-13 06:34] LABS: Anion Gap 9 (5-15); BUN 11 mg/dL (4-19); BUN/Creat Ratio 15.6 RATIO (10-20); Calcium,Total 8.5 mg/dL (7.6-11.0); Carbon Dioxide 27.2 mmol/L (21.0-32.0); Chloride 99 mmol/L (98-108); Estimated Creatinine Clearance 38.27 ml/min (50-250); Glucose 90 mg/dL (70-99); Potassium 4.2 mmol/L (3.3-5.1)
--- NOTE | 2025-09-13 10:15 | NURSING ---
dr Cool here and changed wound dressing.
[2025-09-13 10:23] VITALS: BP 119/73; PULSE 67; RESP 16; TEMP 36.6; O2SAT 94
[2025-09-13] MEDS: Cholecalciferol (VIT D3) 25 MCG TABLET (1,000 UNITS) 50 MCG PO (10:29)
[2025-09-13] MEDS: APIXABAN 5 MG TABLET PO ×2 (10:30→22:49)
[2025-09-13] MEDS: Potassium Chloride Oral Tablet 20 MEQ PO (10:30)
[2025-09-13] MEDS: DAKIN'S SOL HALF STRENGTH (=0.25%) TOPICAL ×2 (10:31→22:51)
--- NOTE | 2025-09-13 10:34 | PCM.PN.SRG ---
Subjective Subjective Endorses good dressing changes. Pain controlled. Objective Data Objective Data Vital Signs: Vital Signs Temp Pulse Resp BP Pulse Ox O2 Del Method 97.9 F 67 16 119/73 94 Room Air 09/13/25 10:23 09/13/25 10:23 09/13/25 10:23 09/13/25 10:23 09/13/25 10:23 09/13/25 10:23 Oxygen Delivery Method Room Air Weight: 118 lb 9 oz Body Mass Index (BMI) 24.9 Intake & Output: Intake and Output for Last 24 Hours 09/11/25 09/12/25 09/13/25 23:59 23:59 23:59 Intake Total 570 / 570 480 / 480 120 / 120 Balance 570 / 570 480 / 480 120 / 120 Medical Nutrition Assessment Dietitian: Malnutrition Criteria Met Start: 09/04/25 12:55 Freq: Status: Active Protocol: Document 09/04/25 12:55 SLA (Rec: 09/04/25 12:55 SLA [email or web address]) Nutrition Malnutrition Evidence of Yes Malnutrition Exists Malnutrition (severe Acute Illness/Injury ): Evidenced By Suboptimal Energy Intake (Severe),Weight Loss (Moderate ) Intake Problem Inadequate Oral Intake Status Inactive Problem Increased Nutrient Needs (specify) Etiology protein related to sacral PI Signs/Symptoms as evidenced by need for high protein diet Status Active Problem Clinical Problem Acute Disease or Injury Related Malnutrition Etiology related to inadequate energy intake Signs/Symptoms as evidenced by ~16% unplanned wt loss and po intake meeting <50-75% of est nutritional needs since adm on 08/18/25 Status Active Problem Recommendation Dietitian Continue regular diet - with magic cup w/ meals and Recommendations/ fortified foods w/ meals as able; continue PB w/ banana Changes at breakfast and Brazilian yogurt w/ lunch and dinner. Family to bring premiere protein from home for res - goal is 2 bottles per day. Rec consider appetite stimulant to help encourage increased po intake Continue to follow and monitor for changes in pt nutritional status and make additional rec as indicated . Lab / Micro Data 09/10/25 12:02 09/13/25 05:26 Labs: Laboratory Results - last 24 hr 09/13/25 05:26: Sodium 135, Potassium 4.2, Chloride 99, Carbon Dioxide 27.2, Anion Gap 9, BUN 11, Creatinine 0.67 L, Estim Creat Clear Calc 38.27 L, Est GFR (MDRD) Non-Af 87, BUN/Creatinine Ratio 15.6, Glucose 90, Calcium 8.5 Physical Exam Narrative Stage 4 sacral wound Flap is intact inferiorly but top dehisced. No fluid collections or infection. Assessment & Plan Assessment/Plan (1) Pressure ulcer of sacral region, stage 4: PLAN: Continue dressing changes twice daily with Dakins-soaked gauze VAC Tuesday
[2025-09-13] MEDS: Amox/Clav 400mg/5ml Susp 800 MG PO ×2 (10:43→16:37)
--- NOTE | 2025-09-13 15:57 | NURSING ---
attempted to turn pt on LT side because that is the only side pt will lay on if being turned by nursing. pt would not let this check writer salesperson place pillow under upper/mid back to help reduce pressure on coccyx wounds. would only let this nurse place pillow under lower buttock/legs which does not reduce pressure to area. educated and encouraged but pt wiggles out of position returning to supine on back position.
[2025-09-14 06:39] LABS: Anion Gap 10 (5-15); BUN 10 mg/dL (4-19); BUN/Creat Ratio 18.4 RATIO (10-20); Calcium,Total 8.5 mg/dL (7.6-11.0); Carbon Dioxide 26.9 mmol/L (21.0-32.0); Chloride 99 mmol/L (98-108); Estimated Creatinine Clearance 38.27 ml/min (50-250); Glucose 96 mg/dL (70-99); Potassium 3.8 mmol/L (3.3-5.1)
[2025-09-14 08:55] VITALS: BP 97/63; PULSE 74; RESP 18; TEMP 36.9; O2SAT 93
[2025-09-14] MEDS: Potassium Chloride Oral Tablet 20 MEQ PO (09:00)
[2025-09-14] MEDS: APIXABAN 5 MG TABLET PO ×2 (09:01→22:23)
[2025-09-14] MEDS: Cholecalciferol (VIT D3) 25 MCG TABLET (1,000 UNITS) 50 MCG PO (09:02)
[2025-09-14] MEDS: DAKIN'S SOL HALF STRENGTH (=0.25%) TOPICAL ×2 (09:02→22:29)
[2025-09-14] MEDS: Amox/Clav 400mg/5ml Susp 800 MG PO ×2 (09:09→16:11)
[2025-09-14 15:08] VITALS: BP 127/71; PULSE 72; RESP 13; TEMP 36.3; O2SAT 94
[2025-09-15 05:49] VITALS: PULSE 69; RESP 16; O2SAT 95
[2025-09-15 08:36] VITALS: BP 95/69; PULSE 57; RESP 16; TEMP 36.5; O2SAT 98
[2025-09-15] MEDS: Amox/Clav 400mg/5ml Susp 800 MG PO ×2 (08:41→16:39)
[2025-09-15] MEDS: Potassium Chloride Oral Tablet 20 MEQ PO (08:42)
[2025-09-15] MEDS: DAKIN'S SOL HALF STRENGTH (=0.25%) TOPICAL ×2 (08:43→22:40)
[2025-09-15] MEDS: APIXABAN 5 MG TABLET PO ×2 (08:43→22:33)
[2025-09-15] MEDS: Cholecalciferol (VIT D3) 25 MCG TABLET (1,000 UNITS) 50 MCG PO (08:45)
[2025-09-15] MEDS: 0.9% Saline Lock 10 ML Syringe IV (08:48)
--- NOTE | 2025-09-15 14:18 | NURSING ---
sacrum dressing changed at this time
[2025-09-15 16:00] VITALS: BP 127/71; PULSE 72; RESP 13; TEMP 36.3; O2SAT 94
--- NOTE | 2025-09-16 07:49 | PN.TCU_ITS ---
Subjective Subjective Patient seen, examined for regulatory visit. She told me she would like to discharge home with home health care. She wanted me to tell Dr. Cool she does not want wound VAC today, I asked her to tell Dr. Cool herself. Objective Data Objective Data Vital Signs: Vital Signs Temp Pulse Resp BP Pulse Ox O2 Del Method 97.3 F L 72 13 127/71 H 94 Room Air 09/15/25 16:00 09/15/25 16:00 09/15/25 16:00 09/15/25 16:00 09/15/25 16:00 09/15/25 16:00 Oxygen Delivery Method Room Air Weight: 53.779 kg Body Mass Index (BMI) 24.9 Intake & Output: Intake and Output for Last 24 Hours 09/14/25 09/15/25 09/16/25 23:59 23:59 23:59 Intake Total 236 / 236 360 / 360 Balance 236 / 236 360 / 360 Medical Nutrition Assessment Dietitian: Malnutrition Criteria Met Start: 09/04/25 12:55 Freq: Status: Active Protocol: Document 09/04/25 12:55 SLA (Rec: 09/04/25 12:55 SLA [email or web address]) Nutrition Malnutrition Evidence of Yes Malnutrition Exists Malnutrition (severe Acute Illness/Injury ): Evidenced By Suboptimal Energy Intake (Severe),Weight Loss (Moderate ) Intake Problem Inadequate Oral Intake Status Inactive Problem Increased Nutrient Needs (specify) Etiology protein related to sacral PI Signs/Symptoms as evidenced by need for high protein diet Status Active Problem Clinical Problem Acute Disease or Injury Related Malnutrition Etiology related to inadequate energy intake Signs/Symptoms as evidenced by ~16% unplanned wt loss and po intake meeting <50-75% of est nutritional needs since adm on 08/18/25 Status Active Problem Recommendation Dietitian Continue regular diet - with magic cup w/ meals and Recommendations/ fortified foods w/ meals as able; continue PB w/ banana Changes at breakfast and [place]ian yogurt w/ lunch and dinner. Family to bring premiere protein from home for res - goal is 2 bottles per day. Rec consider appetite stimulant to help encourage increased po intake Continue to follow and monitor for changes in pt nutritional status and make additional rec as indicated . Lab / Micro Data 09/10/25 12:02 09/14/25 05:17 Physical Exam Const alert General Appearance: cooperative HEENT normocephalic Eyes PERRL and EOMs intact bilaterally Neck supple, no JVD and no carotid bruits Resp normal respiratory effort, normal air movement and clear to auscultation bilaterally Cardio regular rate and regular rhythm GI normal to inspection, nondistended, normoactive bowel sounds, non-tender and non-distended Extremity normal capillary refill General Extremity: Negative for edema Skin no rashes or lesions noted Wound Narrative: Sacral wound per wound team. Psych affect normal Appearance: appropriate Assessment & Plan Assessment/Plan (1) Sacral osteomyelitis: (2) Stage 4 skin ulcer of sacral region: PLAN: Plan 84 year old female with below past medical history hospitalized for stage 4 pressure ulcer/sacral osteomyelitis, underwent excision of sacral ulcer followed by skin flap closure per Dr. Cool, admitted to TCU with debility, here for rehabilitation, strengthening, prior to discharge home alone. * Debility - PT/OT. * Dysphagia - ST. * Pain - Tylenol 1000mg q6 prn pain (1-5), Tramadol 50mg q6 prn pain (6-10). * Bowel - Miralax 17gm daily, senna/colace 1 tablet bid, Magnesium citrate 300mL x 1 prn. * Adult immunization - Administer pneumonia vaccine, covid vaccine, flu vaccine as appropriate. * DVT prophylaxis - Eliquis. * Sacral osteomyelitis s/p excision/skin flap closure - Augmentin 875mg bid thru 09/24/2025, Doxycycline 100mg bid thru 09/24/2025, Dr. Silvina Santiago to apply wound VAC today, but patient refusing. * Atrial fibrillation - Propafenone 150mg bid, Diltiazem CD 240mg daily, Eliquis 5mg bid. * Hyperlipidemia - Atorvastatin 10mg qhs. * Vitamin D deficiency - D3 50mcg daily. * Edema - Furosemide 40mg bid prn. * Hypothyroidism - Levothyroxine 100mcg daily. * Nutrition - MVI 1 tablet daily. * GERD - Pantoprazole 40mg daily. * Hypokalemia - KCL 20mg daily. * Nausea - Zofran 8mg q8 prn. * Skin irritation - Aquaphor topical q1 prn. * Tinea Corporis - Nystatin powder topical bid.
--- NOTE | 2025-09-16 10:20 | WOUNDNOTE ---
wound photo: sacrum
[2025-09-16 10:44] VITALS: BP 103/64; PULSE 72; RESP 18; TEMP 36.8; O2SAT 94
--- NOTE | 2025-09-16 11:03 | NURSING ---
pt refuses to take medication at this time- requesated to take them later states she wants to get used to the wound vac this nurse explained we could position her to take meds then lay her back down. pt states she does not want to at this time that she would like to try after lunch
--- NOTE | 2025-09-16 11:33 | PCM.PN.SRG ---
Subjective Subjective Patient seen with Dr. Cool and Rocio Steven at TCU bedside. She is hoping to discharge home with home health and states wound VAC is too heavy and makes her feel like her balance is off. Therapies recommended SNF to help continue strengthen her and do further gait training. She was open to trying the wound VAC for a few days. Objective Data Objective Data Vital Signs: Vital Signs Temp Pulse Resp BP Pulse Ox O2 Del Method 98.2 F 72 18 103/64 94 Room Air 09/16/25 10:44 09/16/25 10:44 09/16/25 10:44 09/16/25 10:44 09/16/25 10:44 09/16/25 10:44 Oxygen Delivery Method Room Air Weight: 118 lb 9 oz Body Mass Index (BMI) 24.9 Intake & Output: Intake and Output for Last 24 Hours 09/14/25 09/15/25 09/16/25 23:59 23:59 23:59 Intake Total 236 / 236 360 / 360 Balance 236 / 236 360 / 360 Medical Nutrition Assessment Dietitian: Malnutrition Criteria Met Start: 09/04/25 12:55 Freq: Status: Active Protocol: Document 09/04/25 12:55 SLA (Rec: 09/04/25 12:55 SLA [email or web address]) Nutrition Malnutrition Evidence of Yes Malnutrition Exists Malnutrition (severe Acute Illness/Injury ): Evidenced By Suboptimal Energy Intake (Severe),Weight Loss (Moderate ) Intake Problem Inadequate Oral Intake Status Inactive Problem Increased Nutrient Needs (specify) Etiology protein related to sacral PI Signs/Symptoms as evidenced by need for high protein diet Status Active Problem Clinical Problem Acute Disease or Injury Related Malnutrition Etiology related to inadequate energy intake Signs/Symptoms as evidenced by ~16% unplanned wt loss and po intake meeting <50-75% of est nutritional needs since adm on 08/18/25 Status Active Problem Recommendation Dietitian Continue regular diet - with magic cup w/ meals and Recommendations/ fortified foods w/ meals as able; continue PB w/ banana Changes at breakfast and Trinidadian yogurt w/ lunch and dinner. Family to bring premiere protein from home for res - goal is 2 bottles per day. Rec consider appetite stimulant to help encourage increased po intake Continue to follow and monitor for changes in pt nutritional status and make additional rec as indicated . Lab / Micro Data Attestation: I reviewed the patient's lab results. 09/10/25 12:02 09/14/25 05:17 Physical Exam Narrative Afebrile/VSS Wound bed and wound edge debridement with 3mm curette and scissors. Fibrinous exudate were removed. Assessment & Plan Assessment/Plan (1) Sacral osteomyelitis: (2) Stage 4 skin ulcer of sacral region: PLAN: Plan She was opening to trying wound VAC for a few days to see if she can tolerate it and therapies work on ambulation with the wound VAC She was again recommended to offload her incision at all times. She wishes once she's discharged she'd like continue wound management to be closer to her residence in [place] at their wound care center. [facility] will continue to follow. Charges/Coding Procedures Integumentary 111xxx-113xx: [id number] Global Visit
[2025-09-16] MEDS: Amox/Clav 400mg/5ml Susp 800 MG PO (13:33)
[2025-09-16] MEDS: APIXABAN 5 MG TABLET PO (13:34)
--- NOTE | 2025-09-16 13:43 | NURSING ---
pt refused all meds except Augmentin and eliquis-pt encouraged to take meds- pt refused dr howell notified
[2025-09-16] MEDS: 0.9% Saline Lock 10 ML Syringe IV (17:09)
--- NOTE | 2025-09-16 21:30 | NURSING ---
Gloria RN came to room to get nurse. Stated pt in room 10 is unresponsive on the BSC, should we call a code blue. Both nurses ran to room 10, pt was on BSC unresponsive to stimulation. Coreen LÓPEZ decided to call code blue. Nurse Gloria ran to call well drill operator cable tool. Licha EAR NOSE THROAT PHYSICIAN, Moo EAR NOSE THROAT PHYSICIAN, Ang AGUILERAn, And I raised pt up off BSC to place on bed. Once on the bed pt became alert/oriented x3, no c/o abnormal findings. VS WNL. Rubber Down Mindi assisted with getting pt comfortable in bed.
[2025-09-16 21:35] VITALS: BP 129/77; PULSE 78; RESP 18; TEMP 36.5; O2SAT 96
--- NOTE | 2025-09-16 23:36 | NURSING ---
Pt at start of shift stated she would take some of her medications. After code blue and getting pt stable in bed, pt refused all meds. Went back into room after an hour to try to persuade pt to take medications, pt still refused. Will continue to monitor pt.
--- NOTE | 2025-09-17 06:49 | PN.SURG_ITS ---
Subjective Subjective Patient reports feeling weak and lightheaded yesterday while going to the restroom and lost her balance. Luckily she had her nursing aides with her. Otherwise patient is tolerating the wound VAC well without any issue. She denies any shortness of breath. Objective Data Objective Data Vital Signs: Vital Signs Temp Pulse Resp BP Pulse Ox O2 Del Method 97.7 F L 78 18 129/77 H 96 Room Air 09/16/25 21:35 09/16/25 21:35 09/16/25 21:35 09/16/25 21:35 09/16/25 21:35 09/17/25 06:31 Oxygen Delivery Method Room Air Weight: 118 lb 9 oz Body Mass Index (BMI) 24.9 Intake & Output: Intake and Output for Last 24 Hours 09/15/25 09/16/25 09/17/25 23:59 23:59 23:59 Intake Total 360 / 360 145 / 145 Balance 360 / 360 145 / 145 Medical Nutrition Assessment Dietitian: Malnutrition Criteria Met Start: 09/04/25 12:55 Freq: Status: Active Protocol: Document 09/04/25 12:55 SLA (Rec: 09/04/25 12:55 SLA [email or web address]) Nutrition Malnutrition Evidence of Yes Malnutrition Exists Malnutrition (severe Acute Illness/Injury ): Evidenced By Suboptimal Energy Intake (Severe),Weight Loss (Moderate ) Intake Problem Inadequate Oral Intake Status Inactive Problem Increased Nutrient Needs (specify) Etiology protein related to sacral PI Signs/Symptoms as evidenced by need for high protein diet Status Active Problem Clinical Problem Acute Disease or Injury Related Malnutrition Etiology related to inadequate energy intake Signs/Symptoms as evidenced by ~16% unplanned wt loss and po intake meeting <50-75% of est nutritional needs since adm on 08/18/25 Status Active Problem Recommendation Dietitian Continue regular diet - with magic cup w/ meals and Recommendations/ fortified foods w/ meals as able; continue PB w/ banana Changes at breakfast and [place] yogurt w/ lunch and dinner. Family to bring premiere protein from home for res - goal is 2 bottles per day. Rec consider appetite stimulant to help encourage increased po intake Continue to follow and monitor for changes in pt nutritional status and make additional rec as indicated . Lab / Micro Data 09/10/25 12:02 09/14/25 05:17 Physical Exam Narrative Afebrile/VSS Stage IV sacral decubitus ulcer with dehisced flap reconstruction secondary to pressure and shear forces. There is no calf/leg swelling bilaterally Const alert and oriented x3 Chest Chest Narrative: Normal work of breathing Assessment & Plan Assessment/Plan (1) Sacral osteomyelitis: (2) Stage 4 skin ulcer of sacral region: PLAN: Plan She was opening to trying wound VAC for a few days to see if she can tolerate it and therapies work on ambulation with the wound VAC She was again recommended to offload her incision at all times. She wishes once she's discharged she'd like continue wound management to be closer to her residence in [place] at their wound care center. [facility] will continue to follow.
[2025-09-17] MEDS: Amox/Clav 400mg/5ml Susp 800 MG PO ×2 (09:29→17:57)
[2025-09-17] MEDS: APIXABAN 5 MG TABLET PO ×2 (09:31→21:21)
[2025-09-17 09:44] VITALS: BP 120/80; PULSE 97; RESP 16; TEMP 36.5; O2SAT 96
[2025-09-17] MEDS: 0.9% Saline Lock 10 ML Syringe IV ×2 (09:51→18:00)
--- NOTE | 2025-09-17 09:55 | NURSING ---
pt refusing some of her meds this AM, only took Augmentin suspension, Tramadol and Eliquis. assisted to BR SPTX2 assist, pt voided, continent of semi formed stool as well. pt with lots of flatus. pt back to bed, resting on LT side on low pressure air mattress. call light in reach.
[2025-09-17 10:32] LABS: Anion Gap 9 (5-15); BUN 10 mg/dL (4-19); BUN/Creat Ratio 15.9 RATIO (10-20); Calcium,Total 8.9 mg/dL (7.6-11.0); Carbon Dioxide 28.6 mmol/L (21.0-32.0); Chloride 98 mmol/L (98-108); Estimated Creatinine Clearance 38.27 ml/min (50-250); Glucose 132 mg/dL (70-99); Potassium 3.8 mmol/L (3.3-5.1)
--- NOTE | 2025-09-17 11:01 | CASEMGMT ---
Addendum entered by Sita Alejandre 09/17/25 15:49: [facility] accept. [facility] denied. SW followed up with pt and if either [place] [facility] still [facility] not have beds, [facility]. SW updated [facility]. Original Note: Social Work SW followed up with pt on SNF choices. Pt requested referrals [facility]. SW sent referrals via [facility]. Sita Alejandre TEENAGE BABYSITTER CLINICAL SPECIALTY REP
[2025-09-17 14:34] VITALS: BP 104/62; BP 67/36; BP 86/52; PULSE 103; PULSE 107; PULSE 92
[2025-09-17] MEDS: 0.9% Normal Saline (1000mL) 1,000 ML 999 ML IV (18:00)
--- NOTE | 2025-09-17 18:03 | NURSING ---
pt with positive orthostats, new order 1 liter NS bolus. poor appetite/fluid intake last couple days, pt updated and agreeable.
[2025-09-18] MEDS: APIXABAN 5 MG TABLET PO ×2 (09:43→22:47)
[2025-09-18] MEDS: DAKIN'S SOL HALF STRENGTH (=0.25%) TOPICAL (09:45)
[2025-09-18] MEDS: Amox/Clav 400mg/5ml Susp 800 MG PO ×2 (09:49→16:37)
--- NOTE | 2025-09-18 14:38 | WOUNDNOTE ---
wound photo: sacrum
[2025-09-18 16:00] VITALS: BP 122/78; PULSE 87; RESP 16; TEMP 36.6; O2SAT 95
--- NOTE | 2025-09-18 22:53 | NURSING ---
Pt declined HS dressing change. States It was just done this afternoon; education provided. Pt agrees to Early AM dressing change 09/19/25.
--- NOTE | 2025-09-19 07:04 | NURSING ---
Dressing changed this AM. pt tolerated well. pt repositioned off of sacrum.
[2025-09-19] MEDS: APIXABAN 5 MG TABLET PO ×2 (09:34→20:24)
[2025-09-19] MEDS: DAKIN'S SOL HALF STRENGTH (=0.25%) TOPICAL ×2 (09:37→20:26)
[2025-09-19] MEDS: Amox/Clav 400mg/5ml Susp 800 MG PO ×2 (09:46→17:44)
[2025-09-19 14:27] VITALS: BP 109/56; PULSE 91; RESP 18; TEMP 36.6; O2SAT 92
[2025-09-20 09:54] VITALS: BP 83/54; PULSE 63; RESP 17; TEMP 36.6; O2SAT 95
[2025-09-20 09:56] VITALS: BP 104/66; PULSE 78
[2025-09-20] MEDS: APIXABAN 5 MG TABLET PO ×2 (09:59→21:40)
[2025-09-20] MEDS: Amox/Clav 400mg/5ml Susp 800 MG PO ×2 (10:02→17:10)
[2025-09-20] MEDS: DAKIN'S SOL HALF STRENGTH (=0.25%) TOPICAL ×2 (10:03→21:41)
--- NOTE | 2025-09-20 10:14 | NURSING ---
wet to dry dressing done to coccyx per order, pt on pressure reducing air mattress, attempted to place pt on lt side with use of pillow for proping and pt refused stated no, it is not going to heal pt states this is what she was told by Dr Cool. call light in reach. pt refusing most all meds except augmentin & eliquis at this point in time.
[2025-09-20] MEDS: 0.9% Saline Lock 10 ML Syringe IV (13:50)
--- NOTE | 2025-09-20 14:21 | PCM.PN.SRG ---
Subjective Subjective Operative Information Date of Procedure: 08/14/25 Pre-Operative Diagnosis: Sacral wound stage IV with exposed bone Post-Operative Diagnosis: Same Surgery/Procedure Performed: Fasciocutaneous Limberg flap (rhombus) reconstruction of sacral ulcer (skin flap closure for sacral wound closure) Current encounter, 20 September 2025: Patient is now over 1 month from fasciocutaneous flap reconstruction for stage IV sacral ulcer. She unfortunately failed the pressure offloading protocol and the wound has dehisced and there is now a recurrence of the stage IV sacral ulcer. Per nursing staff and the primary physician Dr. Quevedo, patient has been declining any pressure offloading efforts and declining her doxycycline. She is intermittently declining some dressing changes. I spoke to the patient extensively today on rounds and encouraged her to continue to work with physical therapy and the nursing staff on rehabilitation and wound care, as well as pressure offloading. She reports that she does not feel like she can pressure offload the wound, as she is most comfortable in a supine position on the bed. I talked her about the risks of continuing to place pressure on the wound, and I talked to her about the need for complete pressure offloading if we are ever going to attempt a subsequent flap reconstruction. She endorsed understanding and would like to continue to lay supine. She understands that she has significant wound care burden requiring twice daily dressing changes versus 3 times per week VAC changes (she has declined the VAC, and therefore she will need twice daily dressing changes in a long term). I talked her overall about her goals which are to eventually get home. We are going to continue to discuss wound care and pressure offloading, and reevaluate her ability going forward to pressure offload in hopes of eventual reconstruction (if she so desires). Objective Data Objective Data Vital Signs: Vital Signs Temp Pulse Resp BP Pulse Ox O2 Del Method 97.8 F 78 17 104/66 95 Room Air 09/20/25 09:54 09/20/25 09:56 09/20/25 09:54 09/20/25 09:56 09/20/25 09:54 09/20/25 09:54 Oxygen Delivery Method Room Air Weight: 118 lb 9 oz Body Mass Index (BMI) 24.9 Intake & Output: Intake and Output for Last 24 Hours 09/18/25 09/19/25 09/20/25 23:59 23:59 23:59 Intake Total 180 / 180 240 / 240 Balance 180 / 180 240 / 240 Medical Nutrition Assessment Dietitian: Malnutrition Criteria Met Start: 09/04/25 12:55 Freq: Status: Active Protocol: Document 09/04/25 12:55 SLA (Rec: 09/04/25 12:55 SLA [email or web address]) Nutrition Malnutrition Evidence of Yes Malnutrition Exists Malnutrition (severe Acute Illness/Injury ): Evidenced By Suboptimal Energy Intake (Severe),Weight Loss (Moderate ) Intake Problem Inadequate Oral Intake Status Inactive Problem Increased Nutrient Needs (specify) Etiology protein related to sacral PI Signs/Symptoms as evidenced by need for high protein diet Status Active Problem Clinical Problem Acute Disease or Injury Related Malnutrition Etiology related to inadequate energy intake Signs/Symptoms as evidenced by ~16% unplanned wt loss and po intake meeting <50-75% of est nutritional needs since adm on 08/18/25 Status Active Problem Recommendation Dietitian Continue regular diet - with magic cup w/ meals and Recommendations/ fortified foods w/ meals as able; continue PB w/ banana Changes at breakfast and Citizen [place] yogurt w/ lunch and dinner. Family to bring premiere protein from home for res - goal is 2 bottles per day. Rec consider appetite stimulant to help encourage increased po intake Continue to follow and monitor for changes in pt nutritional status and make additional rec as indicated . Lab / Micro Data 09/10/25 12:02 09/17/25 08:27 Micro: Microbiology 09/20/25 05:35 Nasal Secretion SARS-CoV-2 Antigen (Rapid) - Final Physical Exam Narrative Afebrile/VSS Stage IV sacral decubitus ulcer with dehisced flap reconstruction secondary to pressure and shear forces. No fluid collections Wound undermines circumferentially and is approximately 4 x 5 cm. There is granulation tissue at the base, but also exposed sacral bone. There is no calf/leg swelling bilaterally Const alert and oriented x3 Chest Chest Narrative: Normal work of breathing Assessment & Plan Assessment/Plan (1) Sacral osteomyelitis: (2) Stage 4 skin ulcer of sacral region: PLAN: Plan Continue with attempted pressure offloading (lateral or prone, ideally). Continue twice daily Dakin's soaked gauze dressing changes Continue to optimize nutrition with protein supplementation (ordered) Plastic surgery will continue to follow
[2025-09-21 09:40] VITALS: BP 103/64; PULSE 80; RESP 16; TEMP 36.8; O2SAT 94
[2025-09-21] MEDS: APIXABAN 5 MG TABLET PO (09:42)
[2025-09-21] MEDS: Amox/Clav 400mg/5ml Susp 800 MG PO ×2 (09:42→17:18)
[2025-09-21] MEDS: Cholecalciferol (VIT D3) 25 MCG TABLET (1,000 UNITS) 50 MCG PO (09:43)
[2025-09-21] MEDS: DAKIN'S SOL HALF STRENGTH (=0.25%) TOPICAL (17:05)
[2025-09-21] MEDS: 0.9% Saline Lock 10 ML Syringe IV (22:29)
[2025-09-22 08:21] VITALS: BP 108/65; PULSE 69; RESP 17; TEMP 37.1; O2SAT 96
[2025-09-22] MEDS: Amox/Clav 400mg/5ml Susp 800 MG PO ×2 (08:23→17:01)
[2025-09-22] MEDS: APIXABAN 5 MG TABLET PO ×2 (08:24→23:51)
[2025-09-22] MEDS: Cholecalciferol (VIT D3) 25 MCG TABLET (1,000 UNITS) 50 MCG PO (08:25)
--- NOTE | 2025-09-22 08:27 | NURSING ---
Patient refusing medications this AM. See MAR. Educated patient on the importance of her medications and heart medications with history of AFib. Patient acknowledges. VS and HR WNL at this time. Will continue to monitor.
[2025-09-22] MEDS: DAKIN'S SOL HALF STRENGTH (=0.25%) TOPICAL (13:11)
[2025-09-22 23:50] VITALS: BP 100/62; PULSE 83
[2025-09-23] MEDS: DAKIN'S SOL HALF STRENGTH (=0.25%) TOPICAL ×2 (00:01→12:41)
--- NOTE | 2025-09-23 03:24 | NURSING ---
Written communication left for Dr. Quevedo review this AM regarding patient frequent refusal of medications (See MAR) despite education.
[2025-09-23] MEDS: APIXABAN 5 MG TABLET PO ×2 (09:18→21:38)
[2025-09-23] MEDS: Amox/Clav 400mg/5ml Susp 800 MG PO ×2 (09:21→17:40)
--- NOTE | 2025-09-23 12:19 | CASEMGMT ---
Social Work PASRR completed in [facility]. Sent updated clinicals and DC summaries to [facility] 09/25 Sita Alejandre CREW ATTENDANT BOX LOADER
--- NOTE | 2025-09-23 13:15 | PCM.PN.SRG ---
Subjective Subjective Seen with Dr. Cool and Rocio clarke RN. She was lying on her back ordering her lunch. Objective Data Objective Data Vital Signs: Vital Signs Temp Pulse Resp BP Pulse Ox O2 Del Method 98.8 F 83 17 100/62 96 Room Air 09/22/25 08:21 09/22/25 23:50 09/22/25 08:21 09/22/25 23:50 09/22/25 08:21 09/23/25 09:50 Oxygen Delivery Method Room Air Weight: 118 lb 9 oz Body Mass Index (BMI) 24.9 Intake & Output: Intake and Output for Last 24 Hours 09/21/25 09/22/25 09/23/25 23:59 23:59 23:59 Intake Total 582 / 582 442 / 442 0 / 0 Balance 582 / 582 442 / 442 0 / 0 Medical Nutrition Assessment Dietitian: Malnutrition Criteria Met Start: 09/04/25 12:55 Freq: Status: Active Protocol: Document 09/04/25 12:55 SLA (Rec: 09/04/25 12:55 SLA [email or web address]) Nutrition Malnutrition Evidence of Yes Malnutrition Exists Malnutrition (severe Acute Illness/Injury ): Evidenced By Suboptimal Energy Intake (Severe),Weight Loss (Moderate ) Intake Problem Inadequate Oral Intake Status Inactive Problem Increased Nutrient Needs (specify) Etiology protein related to sacral PI Signs/Symptoms as evidenced by need for high protein diet Status Active Problem Clinical Problem Acute Disease or Injury Related Malnutrition Etiology related to inadequate energy intake Signs/Symptoms as evidenced by ~16% unplanned wt loss and po intake meeting <50-75% of est nutritional needs since adm on 08/18/25 Status Active Problem Recommendation Dietitian Continue regular diet - with magic cup w/ meals and Recommendations/ fortified foods w/ meals as able; continue PB w/ banana Changes at breakfast and [place] yogurt w/ lunch and dinner. Family to bring premiere protein from home for res - goal is 2 bottles per day. Rec consider appetite stimulant to help encourage increased po intake Continue to follow and monitor for changes in pt nutritional status and make additional rec as indicated . Lab / Micro Data 09/10/25 12:02 09/17/25 08:27 Micro: Microbiology 09/22/25 06:25 Nasal Secretion SARS-CoV-2 Antigen (Rapid) - Final 09/20/25 05:35 Nasal Secretion SARS-CoV-2 Antigen (Rapid) - Final Physical Exam Narrative Afebrile/VSS Stage IV sacral decubitus ulcer with dehisced flap reconstruction secondary to pressure and shear forces. Granulation tissue at the base with some bone exposure. No fluid collections Wound undermines circumferentially and is approximately 4 x 5 cm. Repacked with Dakin soaked gauze. No calf/leg swelling bilaterally Const alert and oriented x3 Chest Chest Narrative: Normal work of breathing Assessment & Plan Assessment/Plan (1) Sacral osteomyelitis: (2) Stage 4 skin ulcer of sacral region: PLAN: Plan Continue with attempted pressure offloading (lateral or prone, ideally). Continue twice daily Dakin's soaked gauze dressing changes Continue to optimize nutrition with protein supplementation (ordered). Plastic surgery will see patient Tuesday prior to her DC. Charges/Coding Procedures Integumentary [id number]: [id number] Global Visit
[2025-09-23 14:35] VITALS: BP 110/60; PULSE 77; RESP 16; TEMP 36.9; O2SAT 96
--- NOTE | 2025-09-23 15:02 | CASEMGMT ---
Social Work Received VM from dtr Cara, stating she toured [facility] and spoke with Cara in Admissions who stated there may be a bed for pt to admit and requested clinicals. - SALVADOR sent communication via [facility] to Cara to clarify as clinicals have been sent, reviewed, and pt was placed on a waiting list, but no further communication has been provided to this worker. Will await response.? Sita Alejandre HAZARDOUS MATERIALS DRIVER SUPERVISOR COLOR PASTE MIXING
--- NOTE | 2025-09-24 07:53 | MDS.RN ---
Information for the MDS was obtained from review of the clinical record, interview of resident, staff, and direct observation of resident?s care.
[2025-09-24] MEDS: APIXABAN 5 MG TABLET PO ×2 (08:32→20:13)
[2025-09-24] MEDS: Cholecalciferol (VIT D3) 25 MCG TABLET (1,000 UNITS) 50 MCG PO (08:32)
--- NOTE | 2025-09-24 08:34 | NURSING ---
pt refused several morning medications, this nurse explained purpose of taking each and the importance, pt continued to refuse.
[2025-09-24 08:36] VITALS: BP 121/83; PULSE 76; RESP 16; TEMP 37; O2SAT 97
[2025-09-24] MEDS: Amox/Clav 400mg/5ml Susp 800 MG PO (08:42)
--- NOTE | 2025-09-24 10:34 | CASEMGMT ---
Social Work SW received call from dtr that she spoke with Cara at [facility] and Cara confirmed there are no beds for the pt. Pt will still DC to [facility]. Dtr will transport. Sita Alejandre MSW LOCAL TELEPHONE OPERATOR
[2025-09-24] MEDS: DAKIN'S SOL HALF STRENGTH (=0.25%) TOPICAL ×2 (14:40→22:04)
[2025-09-24 19:58] VITALS: PULSE 81; O2SAT 94
[2025-09-24 20:09] VITALS: BP 106/66; PULSE 118
[2025-09-25 05:26] VITALS: PULSE 80; O2SAT 97
[2025-09-25] MEDS: APIXABAN 5 MG TABLET PO (08:26)
[2025-09-25] MEDS: Senna/Docusate Sodium 1 Tablet PO (08:27)
--- NOTE | 2025-09-25 08:33 | CASEMGMT ---
Social Work SW completed BIMS () and PHQ-2 () for MDS assessment. Sita Alejandre MERCURY PURIFIER RECORDS MANAGEMENT ASSISTANT
--- NOTE | 2025-09-25 10:32 | PN.SURG_ITS ---
Subjective Subjective Patient seen with Dr. Cool and Rocio Steven RN. She is pending discharged to senior living today. She was dressed, sitting on her back and looking forward to discharging. Objective Data Objective Data Vital Signs: Vital Signs Temp Pulse Resp BP Pulse Ox O2 Del Method 98.6 F 80 16 106/66 97 Room Air 09/24/25 08:36 09/25/25 05:26 09/24/25 08:36 09/24/25 20:09 09/25/25 05:26 09/25/25 05:26 Oxygen Delivery Method Room Air Weight: 118 lb 9 oz Body Mass Index (BMI) 24.9 Intake & Output: Intake and Output for Last 24 Hours 09/23/25 09/24/25 09/25/25 23:59 23:59 23:59 Intake Total 342 / 342 180 / 180 340 / 340 Output Total 0 / 0 Balance 342 / 342 180 / 180 340 / 340 Medical Nutrition Assessment Dietitian: Malnutrition Criteria Met Start: 09/04/25 12:55 Freq: Status: Active Protocol: Document 09/04/25 12:55 SLA (Rec: 09/04/25 12:55 SLA [email or web address]) Nutrition Malnutrition Evidence of Yes Malnutrition Exists Malnutrition (severe Acute Illness/Injury ): Evidenced By Suboptimal Energy Intake (Severe),Weight Loss (Moderate ) Intake Problem Inadequate Oral Intake Status Inactive Problem Increased Nutrient Needs (specify) Etiology protein related to sacral PI Signs/Symptoms as evidenced by need for high protein diet Status Active Problem Clinical Problem Acute Disease or Injury Related Malnutrition Etiology related to inadequate energy intake Signs/Symptoms as evidenced by ~16% unplanned wt loss and po intake meeting <50-75% of est nutritional needs since adm on 08/18/25 Status Active Problem Recommendation Dietitian Continue regular diet - with magic cup w/ meals and Recommendations/ fortified foods w/ meals as able; continue PB w/ banana Changes at breakfast and [place] yogurt w/ lunch and dinner. Family to bring premiere protein from home for res - goal is 2 bottles per day. Rec consider appetite stimulant to help encourage increased po intake Continue to follow and monitor for changes in pt nutritional status and make additional rec as indicated . Lab / Micro Data Attestation: I reviewed the patient's lab results. 09/10/25 12:02 09/17/25 08:27 Micro: Microbiology 09/24/25 05:55 Nasal Secretion SARS-CoV-2 Antigen (Rapid) - Final 09/22/25 06:25 Nasal Secretion SARS-CoV-2 Antigen (Rapid) - Final 09/20/25 05:35 Nasal Secretion SARS-CoV-2 Antigen (Rapid) - Final Physical Exam Narrative Afebrile/VSS Stage IV sacral decubitus ulcer with dehisced flap reconstruction secondary to pressure and shear forces. Granulation tissue at the base with some bone exposure. No fluid collections Wound undermines circumferentially and is approximately 4 x 5 cm. Repacked with Dakin soaked gauze. No calf/leg swelling bilaterally Const alert and oriented x3 Chest Chest Narrative: Normal work of breathing Assessment & Plan Assessment/Plan (1) Sacral osteomyelitis: (2) Stage 4 skin ulcer of sacral region: PLAN: Plan Continue with attempted pressure offloading (lateral or prone, ideally). Continue twice daily Dakin's soaked gauze dressing change. Continue to optimize nutrition with protein supplementation and increase protein intake. We will have patient follow up at our wound center after discharge while pending wound center referral for [facility] which is closer to her home. Charges/Coding Procedures Integumentary [id number]: [id number] Global Visit
== END 2025-09-25 12:15 | disposition intermediate care facility (04) | DRG 949 ==
PROVIDERS: Physician Assistant; Surgery Plastic and Reconstructive Surgery; Admitting Provider Family Medicine Geriatric Medicine; PCP Family Medicine; Visit Provider Family Medicine Geriatric Medicine
DX: Z48.817 Encounter for surgical aftercare following surgery on the skin and subcutaneous tissue (principal); L89.154 Pressure ulcer of sacral region, stage 4; E44.1 Mild protein-calorie malnutrition; M46.28 Osteomyelitis of vertebra, sacral and sacrococcygeal region; B37.0 Candidal stomatitis; T85.638A Leakage of other specified internal prosthetic devices, implants and grafts, initial encounter; T81.328A Disruption or dehiscence of closure of other specified internal operation (surgical) wound, initial encounter; R13.10 Dysphagia, unspecified; E03.9 Hypothyroidism, unspecified; I48.91 Unspecified atrial fibrillation; E87.6 Hypokalemia; K21.9 Gastro-esophageal reflux disease without esophagitis; E55.9 Vitamin D deficiency, unspecified; E78.00 Pure hypercholesterolemia, unspecified; B95.61 Methicillin susceptible Staphylococcus aureus infection as the cause of diseases classified elsewhere; Z79.899 Other long term (current) drug therapy; Z79.890 Hormone replacement therapy; Z79.01 Long term (current) use of anticoagulants; Y84.8 Other medical procedures as the cause of abnormal reaction of the patient, or of later complication, without mention of misadventure at the time of the procedure; Z68.24 Body mass index [BMI] 24.0-24.9, adult
CPT/HCPCS: 36415; 71046; 74018; 80048; 80053; 80061; 82306; 83735; 84134; 85025; 87811; 92526; 92610; 97110; 97116; 97162; 97166; 97530; 97535; 97802; A4216